=== PATIENT | female | born 2000 | race Caucasian/White ===

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

== ENCOUNTER → 2020-05-10 | Outpatient (CLI) | payer MEDICAID, SELFPAY | END | disposition home or self-care (01) | PROVIDERS: PCP Pediatrics; Referring Provider Physician Assistant Medical; Visit Provider Physician Assistant Medical | DX: T30.4 Corrosion of unspecified body region, unspecified degree (principal) | CPT/HCPCS: 87070; 87205 ==

== ENCOUNTER 2020-06-01 08:39 | Emergency (ER) | payer MEDICAID, SELFPAY ==
[2020-06-01 08:40] VITALS: BP 152/99; PULSE 101; RESP 17; TEMP 36.2; O2SAT 99; BMI 42.5
[2020-06-01 09:15] VITALS: PULSE 121; RESP 20
[2020-06-01] MEDS: Ipratropium/Albuterol Sulfate 3 ML AMPUL.NEB INHALATION (09:15)
--- NOTE | 2020-06-01 09:16 | ED.DCSUM_ITS ---
History of Present Illness Informant: Patient Onset: Days - 3 days Activity at onset: Exertion, Light Activity Timing: Continuous Quality: Dyspnea on exertion, Wheezing Current Severity: Moderate Maximum Severity: Severe Worsened by: Coughing, Exertion Relieved by: Nothing Associated Symptoms: Cough. Negative for: Bloody Sputum, Chills, Clear sputum, Ear pain, Fever, Green sputum, Post-nasal drainage, Rhinorrhea, Sore throat, Sweats, White sputum, Yellow sputum Chest Pain: None Narrative: 19-year-old female history of asthma presents to emergency department with shortness of breath and wheezing with exertion. Nonproductive cough. No fevers or chills. No chest pain. No hemoptysis. No vomiting or diarrhea. No sore throat or congestion. No headache or neck pain. She is not lightheaded or dizzy. No sick contacts. No contacts with coronavirus. Went to the urgent care 2 days ago started on prednisone does not feel she has an improvement. No recent travel or surgery history of DVT or PE use of oral control pills. PE Risk Factors: Negative for: Cancer, OCP + Smoking + > 35, Prior DVT or PE, Recent immobilization, Recent surgery, Recent travel Prior similar symptoms: Yes Recent Illness/Hospitalization: No <Gustabo Fulton - Last Filed: 06/01/20 09:58> <Suhail Kamara - Last Filed: 06/01/20 13:51> Chief Complaint: Asthma Past Medical History Prior records reviewed: Yes Past Medical History: - - Asthma Surgical History: - - Fasciotomy/debridement left upper extremity Smoking Status: Never smoker - Family History Maternal Family History: Reports: - - No family history of hypertension, diabetes or CAD. Paternal Family History: Reports: No pertinent history <Gustabo Fulton - Last Filed: 06/01/20 09:58> <Suhail Kamara - Last Filed: 06/01/20 13:51> - Allergies and Home Meds Allergies/Adverse Reactions: Allergies azithromycin [From Zithromax] Allergy (Verified 06/01/20 08:42) Rash sulfamethoxazole [From Bactrim] Allergy (Verified 06/01/20 08:42) Rash trimethoprim [From Bactrim] Allergy (Verified 06/01/20 08:42) Rash Primary Care Physician: Yola Moses MD [Primary Care Provider] - Review of Systems All systems negative except as indicated General: Denies: Chills, Fever, Sweats Eyes: Denies: Visual changes - bilaterally, Diplopia ENT: Denies: Rhinorrhea, Sore throat Cardiovascular: Denies: Chest pain, Palpitations Respiratory: Reports: Dyspnea, Cough, Dyspnea on exertion. Denies: Sputum, Orthopnea, Paroxysmal nocturnal dyspnea Gastrointestinal: Denies: Abdominal pain, Nausea, Vomiting, Diarrhea, Melena, Hematochezia Genitourinary: Denies: Dysuria, Hematuria, Frequency Musculoskeletal: Denies: Back pain, Swelling, Extremity Pain Skin: Denies: Rash, Wounds Neurological: Denies: Headache, Weakness, Numbness <Gustabo Fulton - Last Filed: 06/01/20 09:58> Physical Exam Vital Signs/Narrative: Vital Signs Temp Pulse Resp BP Pulse Ox 06/01/20 08:40 97.1 F L 101 H 17 152/99 H 99 Inital Vital Signs reviewed: Yes General: Well nourished, Well developed, No Acute Distress Head: Normocephalic, Atraumatic Eyes: Perrl, EOMI ENT: Moist mucous membranes, No rhinorrhea Neck: Supple, Nontender Cardiovascular: Regular rate, Regular rhythm, No murmurs Respiratory: No distress, Chest nontender, Wheezing. Negative for: Rales, Rhon chi, Decreased Air Movement, Retractions Abdomen: Soft, Nontender, Nondistended, Normal bowel sounds Back: Nontender, Normal Inspection Extremities: Nontender, No edema. Negative for: Tenderness, Edema, Calf Tenderness Skin: Normal color, No rash Neurological: Alert, Oriented x3, Cranial nerves II-XII grossly intact, Normal Strength, Normal Sensation Psychological: Normal affect, Normal Mood <Gustabo Fulton - Last Filed: 06/01/20 09:58> Vital Signs/Narrative: Vital Signs Pulse Resp Pulse Ox 06/01/20 10:07 96 18 99 <Suhail Kamara - Last Filed: 06/01/20 13:51> Diagnostic/Tx/Re-eval Chest X-Ray - ED: 2 View, Read by ED Physician, Read by Radiologist, No Acute Disease Treatment - Dyspnea: Albuterol Repeat Evaluation: Improved With Ambulation: Asymptomatic - Medical Decision Making Patient presents with concern for a flare of her asthma. Her vital signs are stable. Her pulse ox is normal. She does have expiratory wheeze. She was given aerosols. She had already taken prednisone this morning that she had been prescribed 2 days ago by the urgent care. Her chest x-ray showed no acute abnormality. Patient states that she does feel improved after aerosols. She will continue her prednisone. She will continue her aerosols at home and follow-up with her doctor on Wednesday. She will be discharged. She did request a test for Covid, this will be sent out and she will quarantine until results return but at this time she is stable for discharge <Gustabo Fulton - Last Filed: 06/01/20 09:58> - Medical Decision Making Attending note: I saw the patient independently. Patient has a history of asthma. She presents with a flare. She reports shortness of breath and cough. She is taking prednisone. No current antibiotics. Vital signs reviewed. Patient alert and oriented. No acute distress. Mild expiratory wheeze bilaterally. Otherwise exam unremarkable. Asthma exacerbation Patient was treated here and felt improved. Chest x-ray was unremarkable. COVID-19 test is pending. Patient will be discharged for outpatient follow-up. <Suhail Kamara - Last Filed: 06/01/20 13:51> ED Disposition <Gustabo Fulton - Last Filed: 06/01/20 09:58> <Suhail Kamara - Last Filed: 06/01/20 13:51> - Plan for ED Patient: Disposition: Home or Assisted Living Diagnosis: Asthma exacerbation, Asthma, ADHD (attention deficit hyperactivity disorder), GERD (gastroesophageal reflux disease) Instructions: ED Bronchitis Asthmatic Prescriptions: Doxycycline 100 mg PO BID #20 cap Transmission Status: Received by [facility] Referrals: Yola Moses MD [Primary Care Provider] -
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
[2020-06-01 10:07] VITALS: PULSE 96; RESP 18; O2SAT 99
== END 2020-06-01 10:08 | disposition home or self-care (01) ==
PROVIDERS: Emergency Provider Physician Assistant Medical; PCP Pediatrics
DX: J45.901 Unspecified asthma with (acute) exacerbation (principal); K21.9 Gastro-esophageal reflux disease without esophagitis; F90.9 Attention-deficit hyperactivity disorder, unspecified type
CPT/HCPCS: 71046; 87635; 94640; 99281; U0003

== ENCOUNTER 2020-09-19 20:41 | Emergency (ER) | payer MEDICAID, SELFPAY ==
[2020-09-19 20:43] VITALS: BP 128/85; PULSE 88; RESP 16; TEMP 36.6; O2SAT 99; BMI 44.2
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
[2020-09-19] MEDS: Ondansetron ODT 4 MG Tablet PO (21:59)
[2020-09-19 22:40] VITALS: RESP 16
[2020-09-19] MEDS: HYDROcodone Bitartrate/Apap 5/325 Tablet PO (22:40)
== END 2020-09-19 22:44 | disposition home or self-care (01) ==
PROVIDERS: Emergency Provider Student in an Organized Health Care Education/Training Program; PCP Family Medicine
DX: S06.0X0A Concussion without loss of consciousness, initial encounter (principal); S16.1XXA Strain of muscle, fascia and tendon at neck level, initial encounter; J45.909 Unspecified asthma, uncomplicated; K21.9 Gastro-esophageal reflux disease without esophagitis; V48.0XXA Car driver injured in noncollision transport accident in nontraffic accident, initial encounter; Y93.I9 Activity, other involving external motion; Y92.410 Unspecified street and highway as the place of occurrence of the external cause; Y99.8 Other external cause status
CPT/HCPCS: 70450; 72125; 99283

== ENCOUNTER 2020-09-21 20:46 | Emergency (ER) | payer MEDICAID, SELFPAY ==
[2020-09-21 20:47] VITALS: BP 146/84; PULSE 142; RESP 18; TEMP 36.3; O2SAT 98; BMI 46.3
--- NOTE | 2020-09-21 20:53 | ED.RN ---
RN CALLED FOR EKG, PULLED OLD EKGS FOR
[2020-09-21 20:55] VITALS: BP 138/85; PULSE 112; RESP 21; O2SAT 98
--- NOTE | 2020-09-21 21:09 | EKG12_ITS ---
Test Reason : CP Blood Pressure : / mmHG Vent. Rate : 116 BPM Atrial Rate : 116 BPM P-R Int : 152 ms QRS Dur : 096 ms QT Int : 334 ms P-R-T Axes : 040 015 029 degrees QTc Int : 464 ms Sinus tachycardia Nonspecific ST and T wave abnormality Abnormal ECG Confirmed by CHUCKIE FRANKLIN, ALISON ([id number]), telegraph editor MELISSA LAL ([id number]) on 09/23/2020 11:58:39 A M Referred By: IGNACIO Confirmed By:KRUNAL NOGUERA MD
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
[2020-09-21] MEDS: Orphenadrine 60 MG/2 ML Ampul IM (21:27)
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
[2020-09-21 22:40] LABS: Absolute Lymphocyte Count 2.58 X10^3/uL (0.83-4.51); Absolute Neutrophil Count 3.5 X10^3/uL (2.0-7.7); Basophil# 0.03 X10^3/uL; Basophil% 0.4 % (0-1); Eosinophil# 0.17 X10^3/uL; Eosinophils% 2.5 % (0-5); Hematocrit 41.9 % (37-47); Hemoglobin 13.5 g/dL (12.0-15.0); Lymphocyte # 2.58 X10^3/ul (4.0); Lymphocyte % 37.8 % (19-41); Mean Corp Hgb Conc 32.2 g/dL (32-36); Mean Corpuscular Hgb 26.4 pg (27.0-32.0); Monocyte# 0.58 X10^3/uL; Monocyte% 8.5 % (0-10); NRBC Flagged by Analyzer 0 % (0-5); Neutrophil # 3.45 X10^3/uL (2.7-7.7); Neutrophil % 50.7 % (47-70); Platelet Count 270 K/mm3 (150-450); RBC Distribution Width CV 13.4 % (11.6-14.6); Red Blood Count 5.11 M/mm3 (4.2-5.4); White Blood Count 6.8 K/mm3 (4.4-11.0)
[2020-09-21 22:52] VITALS: BP 107/54; PULSE 86; RESP 16; O2SAT 97
[2020-09-21 22:56] LABS: Anion Gap 2 (5-15); BUN 24 mg/dL (7-18); BUN/Creat Ratio 24.7 RATIO (10-20); Calcium,Total 8.5 mg/dL (8.5-10.1); Chloride 108 mmol/L (98-107); Creatinine, Serum 0.97 mg/dL (0.55-1.02); EST Glomerular Filtration Rate 77 mL/min (>60); Est Glom Filt Rate - Afr Amer 94 mL/min (>60); Estimated Creatinine Clearance 76.53 ml/min; Glucose 89 mg/dL (74-106); Sodium Level 139 mmol/L (136-145)
[2020-09-22] VITALS: BP 98/52; PULSE 87; RESP 19; O2SAT 96
[2020-09-22] MEDS: Morphine 4 MG/ML Syringe IV (00:28)
[2020-09-22] MEDS: Ondansetron 4 MG/2 ML Vial IV (00:28)
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
[2020-09-22 02:10] VITALS: BP 98/52; PULSE 81; RESP 16; O2SAT 96
== END 2020-09-22 02:10 | disposition short-term general hospital (02) ==
PROVIDERS: Emergency Provider Emergency Medicine; PCP Family Medicine
DX: T79.7XXA Traumatic subcutaneous emphysema, initial encounter (principal); J45.909 Unspecified asthma, uncomplicated; F41.9 Anxiety disorder, unspecified; F32.9 Major depressive disorder, single episode, unspecified; Z79.51 Long term (current) use of inhaled steroids; Z79.899 Other long term (current) drug therapy; V48.0XXA Car driver injured in noncollision transport accident in nontraffic accident, initial encounter; Y93.I9 Activity, other involving external motion; Y92.410 Unspecified street and highway as the place of occurrence of the external cause; Y99.8 Other external cause status
CPT/HCPCS: 70491; 71045; 71260; 80048; 85025; 93005; 96372; 96374; 96375; 99285; J7030; Q9967; A4216; J2405

== ENCOUNTER 2020-09-29 19:43 | Emergency (ER) | payer MEDICAID, SELFPAY ==
[2020-09-29 19:44] VITALS: BP 129/76; PULSE 123; RESP 22; TEMP 35.8; O2SAT 96; BMI 45.8
[2020-09-29 20:30] VITALS: BP 136/82; PULSE 116; RESP 24; O2SAT 95
[2020-09-29 20:31] VITALS: RESP 31; O2SAT 95
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
[2020-09-29 21:03] LABS: Absolute Lymphocyte Count 2.48 X10^3/uL (0.83-4.51); Absolute Neutrophil Count 7.2 X10^3/uL (2.0-7.7); Basophil# 0.07 X10^3/uL; Basophil% 0.6 % (0-1); Eosinophils% 2.7 % (0-5); Hemoglobin 13.9 g/dL (12.0-15.0); Lymphocyte # 2.48 X10^3/ul (4.0); Lymphocyte % 22.7 % (19-41); Mean Corp Hgb Conc 32.3 g/dL (32-36); Mean Corpuscular Hgb 26.3 pg (27.0-32.0); Mean Corpuscular Volume 81.3 fL (81-99); Mean Platelet Vol. 9.9 fl (6.2-12.0); Monocyte# 0.78 X10^3/uL; Monocyte% 7.1 % (0-10); NRBC Flagged by Analyzer 0 % (0-5); Neutrophil # 7.24 X10^3/uL (2.7-7.7); Neutrophil % 66.3 % (47-70); Platelet Count 306 K/mm3 (150-450); RBC Distribution Width CV 13.9 % (11.6-14.6); RBC Distribution Width SD 40.2 fl (35.1-43.9); Red Blood Count 5.29 M/mm3 (4.2-5.4); White Blood Count 10.9 K/mm3 (4.4-11.0)
[2020-09-29 21:16] LABS: Partial Thromboplast Time 25.7 Seconds (24.1-36.2)
[2020-09-29 21:22] LABS: Prothrombin Time (Protime)PT. 12.5 SECONDS (11.7-14.9)
[2020-09-29 21:24] VITALS: PULSE 107; RESP 27; O2SAT 99
[2020-09-29 21:26] LABS: AST(SGOT) 28 U/L (15-37); Alanine Aminotransfer ALT/SGPT 49 U/L (13-56); Alkaline Phosphatase 112 U/L (45-117); Anion Gap 6 (5-15); BUN 17 mg/dL (7-18); Calcium,Total 9.1 mg/dL (8.5-10.1); Chloride 104 mmol/L (98-107); EST Glomerular Filtration Rate 75 mL/min (>60); Est Glom Filt Rate - Afr Amer 91 mL/min (>60); Estimated Creatinine Clearance 74.23 ml/min; Glucose 88 mg/dL (74-106); Potassium 4.3 mmol/L (3.5-5.1); Sodium Level 137 mmol/L (136-145)
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
--- NOTE | 2020-09-29 22:27 | ED.DCSUM_ITS ---
- ER Visit Summary Date of Service: 09/29/20 Chief Complaint: Neck pain and shortness of breath History of Present Illness: The patient is a 20 F who presents with neck pain and shortness of breath that became worse today. Patient was seen here last week and transferred to the trauma service at [facility] for subcutaneous emphysema. Patient states that she was feeling somewhat better when she was discharged. Patient states her breathing is worse today. Patient denies any difficulty swallowing. Patient denies any difficulty talking. Patient denies any new trauma. Physical Examination: Vital signs are stable except for mild tachypnea of 22 and a tachycardia of 123. Patient is afebrile. Patient is in no acute distress. Oral mucosa is pink and moist. Neck is supple. Trachea is midline. There is tenderness over the anterior neck. There is minimal crepitance noted. Heart was regular rate and rhythm. Lungs are clear and equal bilaterally. Abdomen is soft. Bowel sounds are normal. There is no tenderness. Cranial nerves II through XII are intact. There are no focal motor or sensory deficits. Extremities are intact. There is no calf tenderness or edema. Test Results: Portable chest x-ray was obtained. There is 1 view. On my interpretation, there is subcutaneous emphysema noted over the upper chest. It is somewhat improved compared to previous exam. Soft tissue neck x-ray was obtained. There are 2 views. On my interpretation, there is subcutaneous emphysema of the anterior neck. Compared to the CT scan from 1 week ago, it appears to be improved. There is no subcutaneous emphysema over the posterior neck that there was previously. Radiologist also interpreted the x-rays and agrees. Emergency Department Course and Treatment: Patient states she is still felt like there is some pressure on her neck on reevaluation. Patient was given a dose of hydroxyzine. CT scan of the soft tissue neck was obtained. There is still subcutaneous emphysema in the neck. This is mostly anterior but there is still some more posteriorly. There is increased gas in the fascicles of the sternocleidomastoid muscles. The extent of the gas goes into the mediastinum around the margin of the left subclavian artery which is otherwise normal. The overall anterior volume of the gas is similar to previous study. This was interpreted by the radiologist. Patient states she feels like her throat is getting worse. Patient is maintaining good oxygen saturations on room air. Patient states she feels like she has difficulty swallowing however. Patient does not feel safe going home. Case was discussed with the transfer center at [facility]. Case was discussed with Dr. Colindres, trauma surgeon at [facility] [place]. He accepted transfer the patient. Patient will be transferred there. Disposition: Transfer to [facility] Impression: Subcutaneous emphysema This note was generated with [employer] dictation software. It may contain incorrect words, spelling, and punctuation that were not noted in review of the chart prior to signing ED Disposition - Plan for ED Patient: Disposition: [facility] Diagnosis: Subcutaneous emphysema Referrals: Juancarlos Soriano MD [Primary Care Provider] -
[2020-09-29] MEDS: hydrOXYzine 50 MG/ML Vial 25 MG IM (22:57)
[2020-09-29 23:21] VITALS: BP 108/81; PULSE 128; RESP 18; O2SAT 98
[2020-09-30 00:28] VITALS: PULSE 112; RESP 22; O2SAT 94
[2020-09-30 02:15] VITALS: BP 122/55; PULSE 112; RESP 18; TEMP 36.7; O2SAT 96
[2020-09-30 02:30] VITALS: BP 122/55; PULSE 112; RESP 18; TEMP 36.7; O2SAT 96
== END 2020-09-30 02:32 | disposition short-term general hospital (02) ==
PROVIDERS: Emergency Provider Emergency Medicine; PCP Family Medicine
DX: T79.7XXA Traumatic subcutaneous emphysema, initial encounter (principal); E66.9 Obesity, unspecified; K21.9 Gastro-esophageal reflux disease without esophagitis
CPT/HCPCS: 70360; 70490; 71045; 71046; 80053; 85025; 85610; 85730; 87426; 96372; 99285; A4216

== ENCOUNTER 2020-10-08 07:46 | Emergency (ER) | payer MEDICAID, SELFPAY ==
[2020-10-08 07:47] VITALS: BP 130/82; PULSE 123; RESP 24; TEMP 37.1; O2SAT 97; BMI 43.9
--- NOTE | 2020-10-08 07:55 | EKG12_ITS ---
Test Reason : CP Blood Pressure : / mmHG Vent. Rate : 112 BPM Atrial Rate : 112 BPM P-R Int : 144 ms QRS Dur : 094 ms QT Int : 330 ms P-R-T Axes : 033 -02 061 degrees QTc Int : 450 ms Sinus tachycardia Voltage criteria for left ventricular hypertrophy Nonspecific T wave abnormality Abnormal ECG When compared with ECG of 21-SEP-2020 20:57, Nonspecific T wave abnormality has replaced inverted T waves in Inferior leads Nonspecific T wave abnormality, improved in Anterior leads Nonspecific T wave abnormality, worse in Lateral leads Confirmed by CHUCKIE FRANKLIN, ALISON ([id number]), editor news MELISSA LAL ([id number]) on 10/21/2020 11:50:22 A M Referred By: KURT Confirmed By:KRUNAL NOGUERA MD
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
--- NOTE | 2020-10-08 08:02 | NURSING ---
called [facility], talked to ric in medical records. requested chart from her stay there. [phone]
[2020-10-08 08:22] LABS: Absolute Neutrophil Count 7.1 X10^3/uL (2.0-7.7); Basophil# 0.05 X10^3/uL; Basophil% 0.5 % (0-1); Eosinophil# 0.54 X10^3/uL; Eosinophils% 4.9 % (0-5); Hematocrit 40.3 % (37-47); Hemoglobin 13.3 g/dL (12.0-15.0); Lymphocyte % 22.6 % (19-41); Mean Corpuscular Hgb 26.7 pg (27.0-32.0); Mean Corpuscular Volume 80.8 fL (81-99); Mean Platelet Vol. 10.3 fl (6.2-12.0); Monocyte# 0.81 X10^3/uL; Monocyte% 7.3 % (0-10); NRBC Flagged by Analyzer 0 % (0-5); Neutrophil # 7.08 X10^3/uL (2.7-7.7); Neutrophil % 64.2 % (47-70); Platelet Count 234 K/mm3 (150-450); RBC Distribution Width CV 14.2 % (11.6-14.6); RBC Distribution Width SD 40.2 fl (35.1-43.9); Red Blood Count 4.99 M/mm3 (4.2-5.4)
--- NOTE | 2020-10-08 08:30 | RAD_ITS ---
STUDY: X-RAY CHEST REASON FOR EXAM: Female, 20 years old. Chest pain and shortness of breath, history of -- Pneumomediastinum and subcutaneous air TECHNIQUE: AP and lateral views of the chest. COMPARISON: Comparison is made with prior study dated 09/29/2020. FINDINGS: EKG electrodes are seen. Once again, there is evidence of subcutaneous emphysema overlying the lower cervical regions bilaterally as well as overlying the chest timmons more prominent on the left side. Increased linear markings in both lungs suggestive of mild degree of vascular congestion or inflammatory process. There is no demonstrated pleural abnormality. Normal size heart. Normal mediastinum and melissa. Normal visualized pulmonary arteries. Normal visualized aortic arch and descending thoracic aorta. Normal visualized thoracic spine. Normal visualized ribs, clavicles, and shoulders. There is no demonstrated abnormality of the visualized soft tissue structures of the upper abdomen. RAD/Chest PA and Lateral IMPRESSION: Subcutaneous emphysema overlying the lower cervical region as well as the chest wall more prominent on the left side. Increased linear markings in both lungs suggestive of either vascular congestion and/or possible inflammatory process. Electronically Signed: Hammad Aguirre MD at 8:59 EST , Service support ,
[2020-10-08 08:39] LABS: Anion Gap 6 (5-15); BUN 24 mg/dL (7-18); BUN/Creat Ratio 31.7 RATIO (10-20); Calcium,Total 8.2 mg/dL (8.5-10.1); Chloride 110 mmol/L (98-107); Creatinine, Serum 0.76 mg/dL (0.55-1.02); EST Glomerular Filtration Rate 103 mL/min (>60); Est Glom Filt Rate - Afr Amer 125 mL/min (>60); Estimated Creatinine Clearance 97.68 ml/min; Glucose 110 mg/dL (74-106); Sodium Level 139 mmol/L (136-145)
[2020-10-08 08:45] LABS: Lactic Acid 1.6 mmol/L (0.4-1.9)
[2020-10-08 08:46] VITALS: BP 120/79; PULSE 110; RESP 23; O2SAT 98
--- NOTE | 2020-10-08 08:55 | ED.RN ---
blood top hemolyzed again lab asked to come draw it. spoke with Cely
[2020-10-08 09:00] VITALS: BP 115/62; PULSE 108; RESP 26; O2SAT 98
[2020-10-08 09:01] LABS: Base Excess -2 mmol/L (-2 to +2); Blood Gas Specimen Type ART; PO2 98 mmHG (75-100); SITE R Radial; SO2 98 % (95-99); Total Carbon Dioxide 23 mmol/L; pCO2 33.5 mmHg (35-45); pH 7.43 (7.35-7.45)
--- NOTE | 2020-10-08 09:40 | ED.RN ---
Pt states that she doesnt feel right when she was told she was going home. Dr Avery aware
[2020-10-08] MEDS: LORazepam 2 MG/ML Syringe 0.5 MG IV (09:43)
--- NOTE | 2020-10-08 09:50 | ED.RN ---
PT WAS TEARFUL UPON D/C, AWARE AND ORDERED ATIVAN FOR PT ANXIETY. PT STATES SHE DOESN'T FEEL GOOD. AWARE NO NEW ORDERS, RN TO D/C PT. THIS RN USED ACTIVE LISTENING AND REINFORCED FOLLOWING THE ER D/C PLAN OF FOLLOWING UP WITH PCP AND TO RETURN IF THE SYMPTOMS GOT WORSE. PT D/C.
[2020-10-08 09:55] VITALS: BP 122/94; PULSE 114; RESP 27; O2SAT 98
== END 2020-10-08 09:56 | disposition home or self-care (01) ==
PROVIDERS: Emergency Provider Emergency Medicine; PCP Family Medicine
DX: J98.2 Interstitial emphysema (principal); R00.0 Tachycardia, unspecified; R06.00 Dyspnea, unspecified; J45.909 Unspecified asthma, uncomplicated; K21.9 Gastro-esophageal reflux disease without esophagitis; F32.9 Major depressive disorder, single episode, unspecified; Z79.899 Other long term (current) drug therapy
CPT/HCPCS: 36415; 36600; 71046; 80048; 82803; 83605; 85025; 85379; 93005; 96374; 99285; A4216

== ENCOUNTER 2020-12-24 19:43 | Emergency (ER) | payer MEDICAID, SELFPAY ==
[2020-12-24] VITALS (8 sets, daily range): BP systolic 122–131; BP diastolic 74–82; PULSE 115–135; RESP 16–24; TEMP 36.6–37.2; O2SAT 94–98; BMI 45.1
--- NOTE | 2020-12-24 20:12 | CT_ITS ---
HISTORY: rlq cellulitis TECHNIQUE: Helically acquired images were obtained of the abdomen and pelvis following the intravenous administration of 100 ML of Isovue 300 Iodinated contrast. 2D reformats. No oral contrast was administered. A radiation dose optimization technique was used for this scan. COMPARISON: Of the patient's 52 radiologic exams performed at this institution alone, 2 CT scans of the chest are from September 21, 2020, and February 24, 2019. Both of these studies image into the abdomen, the study from September 21, 2020, to below the adrenal glands. FINDINGS: # of images incl. paperwork: 472 LUNG BASES: Clear. CT abdomen: Gas is present within the subcutaneous fat within the anterior right abdominal wall, anterior to the right acetabulum and extending up into the right flank almost to the level of the inferior ribs. There is some additional induration of the subcutaneous fat anteriorly. Some edema is present on the left but without gas. Some nodular induration is present within the subcutaneous fat anteriorly both left and right separately from the gas. Bony alignment is normal. Disc height and vertebral body height are normal. Facets are well aligned. Transverse and spinous processes are normal. Femoral heads are well-seated within their respective acetabulum. SI joints are symmetric. No acute fractures are perceived. . The gallbladder remains. Liver, spleen, pancreas, and adrenal glands, are normal. The kidneys are normal. The aorta is normal. CT pelvis: No ascites is present. The appendix is normal. Series 278. The uterus and ovaries are not pathologically enlarged. Follicles are present on both ovaries. The bladder is decompressed. Bowel-gas pattern is normal. CT/Abdomen/Pelvis WITH Contrast IMPRESSION: Gas dissecting from the skin into the right anterior abdominal wall and right flank with some induration about that skin. In the setting of infection without trauma this is concerning for necrotizing fasciitis. Within the anterior abdominal wall away from this area gas there are multiple areas of nodular induration of the fat that may represent sequelae of subcutaneous injections from a substance such as insulin. No acute intra-abdominal process perceived. Individualized dose optimization techniques were used for this CT. at 2230 Reported and signed by: Mateus Marquis MD Electronically Signed: Mateus Marquis MD at 22:29 EDT Tel , Service support ,
[2020-12-24 20:49] LABS: Bacteria 0 SEEN /hpf (None Seen); Mucous, Urine 0 SEEN /hpf (<or=2+)
[2020-12-24 20:51] LABS: Color, Urine Yellow (Yellow); Glucose, Dipstick Normal (Normal); Ketone-Dipstick Negative (Negative); Leukocyte Esterase-Dipstick 100 /ul (Negative); Nitrite-Dipstick Negative (Negative); Occult Blood-Urine Negative /ul (Negative); Protein-Dipstick 15 mg/dl (Negative); Urine Bilirubin Dipstick Negative (Negative); Urine Clarity Clear (Clear); Urine Urobilinogen Normal (Normal)
[2020-12-24 20:58] LABS: Red Blood Cells-Urine 0-5 SEEN /hpf (0-5); Squamous Epithelial Cells - UA 0-5 SEEN /hpf (5-10); White Blood Cells 0-5 SEEN /hpf (0-5)
--- NOTE | 2020-12-24 21:10 | EX.ED.DYSGE1 ---
HPI History of Present Illness Chief Complaint: Cellulitis Narrative Narrative: 20-year-old female presents with concern for right lower quadrant abdominal redness. States been present over the past 2 to 3 days. States she was seen in urgent care where they adam a line around it and is extended past that line. She denies any fever, chills, nausea, vomiting, vaginal bleeding or discharge, diarrhea or constipation. Patient states that she feels like there is here in her skin around this and she has had this before in the past in her chest. [facility] Medical History Borderline personality disorder Conversion disorder HOLLY (generalized anxiety disorder) Major depressive disorder, recurrent, moderate Pseudoseizure Home Medications Hydroxyzine [Atarax] 37.5 mg PO BID 11/11/16 [History Last Taken 05/26/19] bupropion HCl 150 mg PO QHS 11/11/16 [History Last Taken 05/25/19] docusate sodium [DOK] 100 mg PO BID 11/11/16 [History Last Taken 05/26/19] escitalopram oxalate 20 mg PO QHS 11/11/16 [History Last Taken 05/25/19] magnesium oxide 400 mg PO BID 11/11/16 [History Last Taken 05/26/19] melatonin 10 mg PO QHS 11/11/16 [History Last Taken 05/25/19] montelukast 10 mg PO QHS 11/11/16 [History Last Taken 05/25/19] trazodone 50 mg PO QHS 11/11/16 [History Last Taken 05/25/19] ranitidine HCl 300 mg PO BID 05/26/19 [History Last Taken 05/26/19] riboflavin (vitamin B2) 400 mg PO DAILY 05/26/19 [History Last Taken 05/26/19] albuterol sulfate 1 puff INHALATION Q4H PRN PRN 07/20/19 [History Last Taken Unknown] buspirone 10 mg PO BID 07/20/19 [History Last Taken Unknown] dextroamphetamine-amphetamine 20 mg PO BID 07/20/19 [History Last Taken Unknown] fluticasone propion-salmeterol 2 ea IH BID 07/20/19 [History Last Taken Unknown] gabapentin 100 mg PO BID PRN PRN 07/20/19 [History Last Taken Unknown] gabapentin 300 mg PO DAILY 07/20/19 [History Last Taken Unknown] omeprazole 40 mg PO DAILY 07/20/19 [History Last Taken Unknown] ondansetron HCl 8 mg PO PRN PRN 07/20/19 [History Last Taken Unknown] promethazine 25 mg PO PRN PRN 07/20/19 [History Last Taken Unknown] Allergy/AdvReac Type Severity Reaction Status Date / Time azithromycin [From Zithromax] Allergy Rash Verified 12/24/20 19:44 sulfamethoxazole Allergy Rash Verified 12/24/20 19:44 [From Bactrim] trimethoprim [From Bactrim] Allergy Rash Verified 12/24/20 19:44 Social History Smoking Status: Never smoker ROS ROS ED Constitutional Constitutional ED: Denies chills, fever(s) or sweats Eyes Eyes: Denies blurry vision, change in vision or diplopia ENT ENT ED: Denies rhinorrhea or sore throat Cardiovascular Cardiovascular: Denies chest pain, orthopnea, palpitations or racing heartbeat Respiratory/Chest Respiratory/Chest: Denies cough, dyspnea, dyspnea on exertion, orthopnea or sputum Gastrointestinal Gastrointestinal: Denies abdominal pain, constipation, diarrhea, melena, nausea or vomiting Genitourinary Genitourinary ED: Denies dysuria, hematuria or urinary frequency Musculoskeletal Musculoskeletal: Denies arthralgias, myalgias or neck pain Integumentary Reports other Details: Skin redness on the abdomen Neurologic Neurologic: Denies headache(s), paresthesias or weakness Psychiatric Psychiatric: Denies anxiety or depression Hematologic/Lymphatic Hematologic/Lymphatic: Denies easy bleeding or easy bruising Allergic/Immunologic Allergic/Immunologic ED: Denies mouth swelling or tongue swelling EXAM Physical Exam Const Vital Signs: 12/24/20 19:44 12/24/20 20:41 12/24/20 20:42 Temperature 97.8 F 98.7 F Temperature Source Temporal Temporal Pulse Rate 135 H 120 H Respiratory Rate 18 24 H Blood Pressure 126/74 H Blood Pressure Mean 91 Pulse Ox 94 96 Oxygen Delivery Method Room Air Room Air 12/24/20 21:52 12/24/20 21:54 12/24/20 22:41 Temperature 99 F 99 F Temperature Source Temporal Temporal Pulse Rate 115 H Respiratory Rate 16 Blood Pressure 131/77 H Blood Pressure Mean 95 Pulse Ox 98 Oxygen Delivery Method Room Air 12/24/20 22:42 Temperature Temperature Source Pulse Rate 119 H Respiratory Rate Blood Pressure 129/82 H Blood Pressure Mean 97 Pulse Ox 97 Oxygen Delivery Method Room Air Positive well nourished and well developed General Appearance ED: well developed HEENT Reports TM's clear and moist mucous membranes normocephalic and atraumatic Tympanic Membrane ED: Yes TM's clear Eyes PERRL and EOMs intact bilaterally Neck no lymphadenopathy, supple and no JVD Chest Wall inspection of chest normal Resp normal respiratory effort and clear to auscultation bilaterally Cardio regular rate, S1 normal heart sound, S2 normal heart sound and no murmurs Peripheral Pulses: pulses 2+ throughout GI soft to palpation, non-tender and non-distended GI Narrative: 3 x 4 cm erythema to the right lower quadrant of the abdomen with subcutaneous crepitus. No tenderness. Back/Spine no CVA tenderness and no thoracic nor lumbar tenderness Extremity normal to inspection General Extremety ED: Negative for edema or tenderness General Extremity: Negative for edema Neuro oriented x3, CN's II-XII intact bilaterally and no sensory deficits noted Sensorium / Orientation: alert Motor Exam: strength 5/5 throughout Psych mental status grossly normal Skin Skin Narrative: Described abdominal erythema. MDM MDM MDM Narrative Medical decision making narrative: Patient appears well and nontoxic. Vital signs show tachycardia. Normotensive. Afebrile. Patient treated with fluid bolus, morphine, Zofran. Lab work within normal limits with a normal lactate. CT of the abdomen pelvis shows evidence of right abdominal wall gas dissecting up into the flank. Concern for necrotizing fasciitis. Patient was given Zosyn, vancomycin, clindamycin. Spoke with general surgeon on-call Dr. Allen, who advised patient needs to be transferred to tertiary facility given the extent of the likely debridement. Patient requesting transfer to [facility]. On reevaluation at 2300 patient's heart rate is improving however she is continuing to complain of pain. Was given Dilaudid and another dose of Zofran. Spoke with general surgeon on-call Dr. Ricci at [facility] who will accept the patient to the emergency department for likely operating room treatment. Patient agreeable with this plan and transferred in stable condition. Lab Data Attestation: I reviewed the patient's lab results. Labs: Laboratory Results - last 24 hr 12/24/20 12/24/20 12/24/20 20:43 20:43 21:12 WBC 8.1 RBC 4.50 Hgb 11.1 L Hct 35.8 L MCV 79.6 L MCH 24.7 L MCHC 31.0 L RDW Std Deviation 40.8 RDW Coeff of Anastacio 14.0 Plt Count 280 MPV 9.8 Immature Gran % (Auto) 0.200 Neut % (Auto) 58.2 Lymph % (Auto) 28.4 [place] % (Auto) 8.9 Eos % (Auto) 3.7 Baso % (Auto) 0.6 Absolute Neuts (auto) 4.7 Absolute Lymphs (auto) 2.31 Nucleated RBC % 0 PT INR APTT Sodium Potassium Chloride Carbon Dioxide Anion Gap BUN Creatinine Estim Creat Clear Calc Est GFR (MDRD) Af Amer Est GFR (MDRD) Non-Af BUN/Creatinine Ratio Glucose Lactic Acid Calcium Total Bilirubin AST ALT Alkaline Phosphatase Total Protein Albumin Globulin Albumin/Globulin Ratio Urine Color Yellow Urine Clarity Clear Urine pH 8.0 Ur Specific [place] 1.010 Urine Protein 15 H Urine Glucose (UA) Normal Urine Ketones Negative Urine Occult Blood Negative Urine Nitrite Negative Urine Bilirubin Negative Urine Urobilinogen Normal Ur Leukocyte Esterase 100 H Urine RBC 0-5 SEEN Urine WBC 0-5 SEEN Ur Squamous Epith Cells 0-5 SEEN Urine Bacteria 0 SEEN Urine Mucus 0 SEEN Urine Test Negative 12/24/20 12/24/20 12/24/20 21:12 21:12 21:12 WBC RBC Hgb Hct MCV MCH MCHC RDW Std Deviation RDW Coeff of Anastacio Plt Count MPV Immature Gran % (Auto) Neut % (Auto) Lymph % (Auto) [place] % (Auto) Eos % (Auto) Baso % (Auto) Absolute Neuts (auto) Absolute Lymphs (auto) Nucleated RBC % PT 13.1 INR 1.1 APTT 22.8 L Sodium 141 Potassium 3.9 Chloride 109 H Carbon Dioxide 27.0 Anion Gap 5 BUN 15 Creatinine 0.93 Estim Creat Clear Calc 79.82 Est GFR (MDRD) Af Amer 99 Est GFR (MDRD) Non-Af 82 BUN/Creatinine Ratio 16.2 Glucose 100 Lactic Acid 1.3 Calcium 8.8 Total Bilirubin 0.20 AST 22 ALT 38 Alkaline Phosphatase 91 Total Protein 6.7 Albumin 3.4 Globulin 3.3 Albumin/Globulin Ratio 1.0 Urine Color Urine Clarity Urine pH Ur Specific [place] Urine Protein Urine Glucose (UA) Urine Ketones Urine Occult Blood Urine Nitrite Urine Bilirubin Urine Urobilinogen Ur Leukocyte Esterase Urine RBC Urine WBC Ur Squamous Epith Cells Urine Bacteria Urine Mucus Urine Test Radiography Diagnostic Testing: Radiology Impression Abdomen/Pelvis CT 12/24/20 20:12 IMPRESSION: Gas dissecting from the skin into the right anterior abdominal wall and right flank with some induration about that skin. In the setting of infection without trauma this is concerning for necrotizing fasciitis. Within the anterior abdominal wall away from this area gas there are multiple areas of nodular induration of the fat that may represent sequelae of subcutaneous injections from a substance such as insulin. No acute intra-abdominal process perceived. Individualized dose optimization techniques were used for this CT. at 2230 Reported and signed by: Mateus Marquis MD Electronically Signed: Mateus Marquis MD at 22:29 EDT Tel , Service support , Critical Care Time Critical care time (excluding procedures): 75-104 minutes (85), Discussing w/Consultants, Arranging Admission or Transfer and Performing Direct Patient Care at Bedside Discharge Plan Triage Chief Complaint: Cellulitis ED Provider: Dre Burleson Dx/Rx/DC Orders Clinical Impression: Necrotizing fasciitis, Tachycardia Prescriptions: No Action bupropion HCl 150 MG Tablet.Sa 150 mg PO QHS RF: 0 trazodone 50 MG tablet 50 mg PO QHS RF: 0 magnesium oxide 400 MG tablet 400 mg PO BID RF: 0 docusate sodium [DOK] 100 MG capsule 100 mg PO BID RF: 0 montelukast 10 MG tablet 10 mg PO QHS RF: 0 escitalopram oxalate 20 MG tablet 20 mg PO QHS RF: 0 melatonin 10 MG tablet 10 mg PO QHS RF: 0 Hydroxyzine [Atarax] 25 MG tablet 37.5 mg PO BID RF: 0 ranitidine HCl 150 MG tablet 300 mg PO BID RF: 0 riboflavin (vitamin B2) 400 MG tablet 400 mg PO DAILY RF: 0 buspirone 5 MG tablet 10 mg PO BID RF: 0 fluticasone propion-salmeterol 1 EACH blister with device 2 ea IH BID RF: 0 ondansetron HCl 8 MG tablet 8 mg PO PRN PRN (Reason: Nausea) RF: 0 dextroamphetamine-amphetamine 20 MG tablet 20 mg PO BID RF: 0 promethazine 25 MG tablet 25 mg PO PRN PRN (Reason: Vomiting) RF: 0 gabapentin 300 MG capsule 300 mg PO DAILY RF: 0 omeprazole 20 MG capsule 40 mg PO DAILY RF: 0 gabapentin 100 MG capsule 100 mg PO BID PRN PRN (Reason: Pain Score 1-3/10) RF: 0 albuterol sulfate 1 PUFF inhaler 1 puff inhalation Q4H PRN PRN (Reason: Asthma) RF: 0 Primary Care Provider: Juancarlos Soriano Referrals: Juancarlos Soriano MD [Primary Care Provider] - Disposition Disposition: Acute Care Hospital Discharge Location: [facility]
[2020-12-24 21:21] LABS: Absolute Lymphocyte Count 2.31 X10^3/uL (0.83-4.51); Absolute Neutrophil Count 4.7 X10^3/uL (2.0-7.7); Basophil# 0.05 X10^3/uL; Basophil% 0.6 % (0-1); Eosinophils% 3.7 % (0-5); Hematocrit 35.8 % (37-47); Hemoglobin 11.1 g/dL (12.0-15.0); Lymphocyte # 2.31 X10^3/ul (0.83-4.51); Lymphocyte % 28.4 % (19-41); Mean Corpuscular Hgb 24.7 pg (27.0-32.0); Mean Corpuscular Volume 79.6 fL (81-99); Mean Platelet Vol. 9.8 fl (6.2-12.0); Monocyte# 0.72 X10^3/uL; Monocyte% 8.9 % (0-10); NRBC Flagged by Analyzer 0 % (0-5); Neutrophil # 4.73 X10^3/uL (2.7-7.7); Neutrophil % 58.2 % (47-70); Platelet Count 280 K/mm3 (150-450); RBC Distribution Width SD 40.8 fl (35.1-43.9); White Blood Count 8.1 K/mm3 (4.4-11.0)
[2020-12-24 21:27] LABS: International Normalized Ratio 1.1; Partial Thromboplast Time 22.8 Seconds (24.1-36.2); Prothrombin Time (Protime)PT. 13.1 SECONDS (11.7-14.9)
[2020-12-24] MEDS: 0.9% Normal Saline 1,000 ML 999 ML IV (21:33)
[2020-12-24 21:39] LABS: AST(SGOT) 22 U/L (15-37); Alanine Aminotransfer ALT/SGPT 38 U/L (13-56); Albumin, Serum 3.4 g/dL (3.2-5.0); Alkaline Phosphatase 91 U/L (45-117); Anion Gap 5 (5-15); BUN 15 mg/dL (7-18); BUN/Creat Ratio 16.2 RATIO (10-20); Calcium,Total 8.8 mg/dL (8.5-10.1); Chloride 109 mmol/L (98-107); Creatinine, Serum 0.93 mg/dL (0.55-1.02); EST Glomerular Filtration Rate 82 mL/min (>60); Est Glom Filt Rate - Afr Amer 99 mL/min (>60); Estimated Creatinine Clearance 79.82 ml/min; Globulin 3.3 g/dL (2.2-4.2); Glucose 100 mg/dL (74-106); Potassium 3.9 mmol/L (3.5-5.1); Protein, Total 6.7 g/dL (6.4-8.2); Sodium Level 141 mmol/L (136-145)
[2020-12-24 21:48] LABS: Lactic Acid 1.3 mmol/L (0.4-1.9)
[2020-12-24] MEDS: Ondansetron 4 MG/2 ML Vial IV ×2 (21:51→23:15)
[2020-12-24] MEDS: Morphine 4 MG/ML Syringe IV (21:51)
[2020-12-24 22:02] LABS: Internal QC Validated? YES +Cl - CLEAR BKGD; Pregnancy, Urine Negative Negative
[2020-12-24] MEDS: HYDROmorphone 0.5 MG/0.5 ML SYRINGE IV (23:15)
--- NOTE | 2020-12-24 23:54 | ED.RN ---
report given to RAUDEL Rivera
== END 2020-12-25 01:01 | disposition short-term general hospital (02) ==
PROVIDERS: Emergency Provider Emergency Medicine; PCP Family Medicine
DX: M72.6 Necrotizing fasciitis (principal); R00.0 Tachycardia, unspecified; F41.1 Generalized anxiety disorder; F60.3 Borderline personality disorder; F33.9 Major depressive disorder, recurrent, unspecified; F44.9 Dissociative and conversion disorder, unspecified; Z79.899 Other long term (current) drug therapy
CPT/HCPCS: 74177; 80053; 81001; 81025; 83605; 85025; 85610; 85730; 87040; 87086; 87088; 87186; 96361; 96365; 96367; 96375; 96376; 99285; J7040; Q9967; J2405

== ENCOUNTER 2021-01-06 20:20 | Emergency (ER) | payer MEDICAID, SELFPAY ==
[2020-12-24 19:44] VITALS: BMI 45.1
[2021-01-06 20:21] VITALS: BP 114/96; PULSE 124; RESP 16; TEMP 36.1; O2SAT 97; BMI 44.2
--- NOTE | 2021-01-06 20:33 | CT_ITS ---
INDICATION: necrotizing fasciitis EXAMINATION: CT Abdomen And Pelvis W/ Contrast Injection TECHNIQUE: Helically acquired images were obtained of the abdomen and pelvis after IV contrast. A radiation dose optimization technique was used for this scan. IV Contrast dosage and agent: IV 100mL [id number] Oral contrast: None. COMPARISON: 12/24/2020. FINDINGS: Visualized lung bases: Unremarkable Liver: Unremarkable Gallbladder: Unremarkable Spleen: Unremarkable Pancreas: Unremarkable Adrenal Glands: Unremarkable Kidneys: Unremarkable Vasculature: Unremarkable GI Tract: Unremarkable Lymphadenopathy: None Peritoneum: No ascites. Bladder: Unremarkable Reproductive organs: Unremarkable Bones/Soft tissues: Interval worsening of gas dissecting through the subcutaneous tissue of the right anterior abdomen and flank as well as increased subcutaneous fat stranding. The air and stranding now reaches but does not penetrate the right rectus abdominis and external oblique muscles. CT/Abdomen/Pelvis W IV Cont ONLY IMPRESSION: Interval worsening of necrotizing fasciitis of the right anterior abdominal wall and right flank with increased gas formation and fat stranding which now reaches but does not penetrate the right rectus abdominis and external oblique muscles. No other new findings. Electronically Signed: Alejandro Duke MD at 22:26 EDT Tel , Service support ,
[2021-01-06 20:35] VITALS: BP 116/80; PULSE 124; RESP 18; TEMP 37.2; O2SAT 96
--- NOTE | 2021-01-06 20:36 | EDS_ITS ---
HPI History of Present Illness Chief Complaint: Wound Check Narrative Narrative: This patient is a 20-year-old female who presents with right lower abdominal pain and infection. She has a history of ADHD obesity and multiple occurrences of necrotizing fasciitis. She has had debridement on multiple occasions including of the left arm as well as the leg as well as the abdominal wall. She was recently seen in our emergency department diagnosed with necrotizing fasciitis of the abdominal wall transferred to [facility] and underwent debridement. She has a wound VAC. She has completed antibiotics. Her home nurse noted increased redness crepitus so she was sent in for eval uation. She does complain of increasing pain. No fevers. No vomiting. [facility] Medical History Borderline personality disorder Conversion disorder HOLLY (generalized anxiety disorder) Major depressive disorder, recurrent, moderate Pseudoseizure Home Medications Hydroxyzine [Atarax] 37.5 mg PO BID 11/11/16 [History Last Taken 05/26/19] bupropion HCl 150 mg PO QHS 11/11/16 [History Last Taken 05/25/19] docusate sodium [DOK] 100 mg PO BID 11/11/16 [History Last Taken 05/26/19] escitalopram oxalate 20 mg PO QHS 11/11/16 [History Last Taken 05/25/19] magnesium oxide 400 mg PO BID 11/11/16 [History Last Taken 05/26/19] melatonin 10 mg PO QHS 11/11/16 [History Last Taken 05/25/19] montelukast 10 mg PO QHS 11/11/16 [History Last Taken 05/25/19] trazodone 50 mg PO QHS 11/11/16 [History Last Taken 05/25/19] ranitidine HCl 300 mg PO BID 05/26/19 [History Last Taken 05/26/19] riboflavin (vitamin B2) 400 mg PO DAILY 05/26/19 [History Last Taken 05/26/19] albuterol sulfate 1 puff INHALATION Q4H PRN PRN 07/20/19 [History Last Taken Unknown] buspirone 10 mg PO BID 07/20/19 [History Last Taken Unknown] dextroamphetamine-amphetamine 20 mg PO BID 07/20/19 [History Last Taken Unknown] fluticasone propion-salmeterol 2 ea IH BID 07/20/19 [History Last Taken Unknown] gabapentin 100 mg PO BID PRN PRN 07/20/19 [History Last Taken Unknown] gabapentin 300 mg PO DAILY 07/20/19 [History Last Taken Unknown] omeprazole 40 mg PO DAILY 07/20/19 [History Last Taken Unknown] ondansetron HCl 8 mg PO PRN PRN 07/20/19 [History Last Taken Unknown] promethazine 25 mg PO PRN PRN 07/20/19 [History Last Taken Unknown] Allergy/AdvReac Type Severity Reaction Status Date / Time azithromycin [From Zithromax] Allergy Rash Verified 01/06/21 20:23 sulfamethoxazole Allergy Rash Verified 01/06/21 20:23 [From Bactrim] trimethoprim [From Bactrim] Allergy Rash Verified 01/06/21 20:23 Social History Smoking Status: Never smoker ROS ROS ED Constitutional Constitutional ED: Denies fever(s) Cardiovascular Cardiovascular: Denies chest pain Respiratory/Chest Respiratory/Chest: Denies dyspnea Gastrointestinal Gastrointestinal: Reports abdominal pain; Denies vomiting Integumentary Reports rash Neurologic Neurologic: Denies headache(s) Psychiatric Psychiatric: Reports anxiety and depression EXAM Physical Exam Const Vital Signs: 01/06/21 20:21 01/06/21 20:35 01/06/21 21:23 Temperature 97 F L 99 F 98.7 F Temperature Source Temporal Oral Oral Pulse Rate 124 H 124 H 110 H Respiratory Rate 16 18 18 Blood Pressure 114/96 H 116/80 100/52 L Blood Pressure Mean 102 92 68 Pulse Ox 97 96 96 Oxygen Delivery Method Room Air Room Air Room Air 01/06/21 22:23 Temperature 98 F Temperature Source Oral Pulse Rate 113 H Respiratory Rate 18 Blood Pressure 97/58 L Blood Pressure Mean 71 Pulse Ox 96 Oxygen Delivery Method Room Air Positive obese Nutritional Appearance: obese HEENT Reports moist mucous membranes Eyes EOMs intact bilaterally Neck supple Chest Wall inspection of chest normal Resp normal respiratory effort Cardio regular rhythm Rate: tachycardic GI GI Narrative: Abdomen is soft but she does have erythema of the right lower abdomen, wound VAC is in place, there is crepitus Extremity Extremity Narrative: Surgical scar of left upper extremity Neuro Sensorium / Orientation: alert MDM MDM MDM Narrative Medical decision making narrative: Patient was treated with IV fluids morphine Zofran. She was given IV Zosyn and vancomycin and clindamycin. Her labs are unremarkable, white blood cell count normal at 10.8 and lactic acid is negative. However CT does show interval worsening of right anterior abdominal wall and right flank with increased gas formation and fat stranding. I spoke to the transfer line and patient was accepted by surgeon, Dr. Montilla. Patient will be transferred ED to ED. Lab Data Labs: Laboratory Results - last 24 hr 01/06/21 01/06/21 01/06/21 20:59 20:59 20:59 WBC 10.8 RBC 4.85 Hgb 12.0 Hct 38.2 MCV 78.8 L MCH 24.7 L MCHC 31.4 L RDW Std Deviation 40.5 RDW Coeff of Anastacio 14.4 Plt Count Not Reportable MPV 10.7 Immature Gran % (Auto) 0.700 Neut % (Auto) 60.1 Lymph % (Auto) 23.0 [place] % (Auto) 11.1 H Eos % (Auto) 4.3 Baso % (Auto) 0.8 Absolute Neuts (auto) 6.5 Absolute Lymphs (auto) 2.47 Nucleated RBC % 0 Differential Comment SCANNED Platelet Estimate ADEQUATE Sodium 138 Potassium 3.8 Chloride 107 Carbon Dioxide 22.0 Anion Gap 9 BUN 21 H Creatinine 0.92 Estim Creat Clear Calc 80.69 Est GFR (MDRD) Af Amer 99 Est GFR (MDRD) Non-Af 82 BUN/Creatinine Ratio 22.8 H Glucose 104 Lactic Acid 1.0 Calcium 9.0 Total Bilirubin 0.50 AST 27 ALT 28 Alkaline Phosphatase 79 Total Protein 8.1 Albumin 3.9 Globulin 4.2 Albumin/Globulin Ratio 0.9 Radiography Diagnostic Testing: Radiology Impression Abdomen/Pelvis CT 01/06/21 20:33 IMPRESSION: Interval worsening of necrotizing fasciitis of the right anterior abdominal wall and right flank with increased gas formation and fat stranding which now reaches but does not penetrate the right rectus abdominis and external oblique muscles. No other new findings. Electronically Signed: Alejandro Duke MD at 22:26 EDT Tel , Service support , Discharge Plan Triage Chief Complaint: Wound Check ED Provider: Curtis Bullock Dx/Rx/DC Orders Clinical Impression: Necrotizing fasciitis Prescriptions: No Action bupropion HCl 150 MG tablet sustained-release 12 hr 150 mg PO QHS RF: 0 trazodone 50 MG tablet 50 mg PO QHS RF: 0 magnesium oxide 400 MG tablet 400 mg PO BID RF: 0 docusate sodium [DOK] 100 MG capsule 100 mg PO BID RF: 0 montelukast 10 MG tablet 10 mg PO QHS RF: 0 escitalopram oxalate 20 MG tablet 20 mg PO QHS RF: 0 melatonin 10 MG tablet 10 mg PO QHS RF: 0 Hydroxyzine [Atarax] 25 MG tablet 37.5 mg PO BID RF: 0 ranitidine HCl 150 MG tablet 300 mg PO BID RF: 0 riboflavin (vitamin B2) 400 MG tablet 400 mg PO DAILY RF: 0 buspirone 5 MG tablet 10 mg PO BID RF: 0 fluticasone propion-salmeterol 1 EACH blister with device 2 ea IH BID RF: 0 ondansetron HCl 8 MG tablet 8 mg PO PRN PRN (Reason: Nausea) RF: 0 dextroamphetamine-amphetamine 20 MG tablet 20 mg PO BID RF: 0 promethazine 25 MG tablet 25 mg PO PRN PRN (Reason: Vomiting) RF: 0 gabapentin 300 MG capsule 300 mg PO DAILY RF: 0 omeprazole 20 MG capsule 40 mg PO DAILY RF: 0 gabapentin 100 MG capsule 100 mg PO BID PRN PRN (Reason: Pain Score 1-3/10) RF: 0 albuterol sulfate 1 PUFF inhaler 1 puff inhalation Q4H PRN PRN (Reason: Asthma) RF: 0 Primary Care Provider: Juancarlos Soriano Referrals: Juancarlos Soriano MD [Primary Care Provider] - Disposition Disposition: Acute Care Hospital Discharge Location: [facility]
[2021-01-06 21:15] LABS: Absolute Lymphocyte Count 2.47 X10^3/uL (0.83-4.51); Absolute Neutrophil Count 6.5 X10^3/uL (2.0-7.7); Basophil# 0.09 X10^3/uL; Basophil% 0.8 % (0-1); Eosinophil# 0.46 X10^3/uL; Eosinophils% 4.3 % (0-5); Hematocrit 38.2 % (37-47); Lymphocyte # 2.47 X10^3/ul (0.83-4.51); Mean Corp Hgb Conc 31.4 g/dL (32-36); Mean Corpuscular Hgb 24.7 pg (27.0-32.0); Mean Corpuscular Volume 78.8 fL (81-99); Mean Platelet Vol. 10.7 fl (6.2-12.0); Monocyte# 1.19 X10^3/uL; Monocyte% 11.1 % (0-10); NRBC Flagged by Analyzer 0 % (0-5); Neutrophil # 6.48 X10^3/uL (2.7-7.7); Neutrophil % 60.1 % (47-70); POSITIVE COUNT YES; RBC Distribution Width CV 14.4 % (11.6-14.6); RBC Distribution Width SD 40.5 fl (35.1-43.9); Red Blood Count 4.85 M/mm3 (4.2-5.4); White Blood Count 10.8 K/mm3 (4.4-11.0)
[2021-01-06 21:17] LABS: Differential Indicated SCAN CRITERIA MET
[2021-01-06 21:23] VITALS: BP 100/52; PULSE 110; RESP 18; TEMP 37.1; O2SAT 96
[2021-01-06 21:37] LABS: ALB/GLOB Ratio 0.9 RATIO (0.9-2.4); AST(SGOT) 27 U/L (15-37); Alanine Aminotransfer ALT/SGPT 28 U/L (13-56); Albumin, Serum 3.9 g/dL (3.2-5.0); Alkaline Phosphatase 79 U/L (45-117); Anion Gap 9 (5-15); BUN 21 mg/dL (7-18); BUN/Creat Ratio 22.8 RATIO (10-20); Chloride 107 mmol/L (98-107); Creatinine, Serum 0.92 mg/dL (0.55-1.02); Differential Comment SCANNED; EST Glomerular Filtration Rate 82 mL/min (>60); Est Glom Filt Rate - Afr Amer 99 mL/min (>60); Estimated Creatinine Clearance 80.69 ml/min; Globulin 4.2 g/dL (2.2-4.2); Glucose 104 mg/dL (74-106); Platelet Estimate ADEQUATE (ADEQ); Potassium 3.8 mmol/L (3.5-5.1); Protein, Total 8.1 g/dL (6.4-8.2); Sodium Level 138 mmol/L (136-145)
[2021-01-06] MEDS: Ondansetron 4 MG/2 ML Vial IV (21:39)
[2021-01-06] MEDS: Morphine 4 MG/ML Syringe IV ×2 (21:39→22:53)
[2021-01-06] MEDS: 0.9% Normal Saline 1,000 ML 1000 ML IV (21:39)
[2021-01-06 22:23] VITALS: BP 97/58; PULSE 113; RESP 18; TEMP 36.6; O2SAT 96
[2021-01-06 23:00] VITALS: BP 102/68; PULSE 114; RESP 18; TEMP 37.2; O2SAT 96
[2021-01-06 23:48] VITALS: BP 102/68; PULSE 111; RESP 12; O2SAT 98
== END 2021-01-06 23:49 | disposition short-term general hospital (02) ==
PROVIDERS: Emergency Provider Emergency Medicine; PCP Family Medicine
DX: M72.6 Necrotizing fasciitis (principal); E66.9 Obesity, unspecified; F60.3 Borderline personality disorder; F33.9 Major depressive disorder, recurrent, unspecified; F41.1 Generalized anxiety disorder; Z79.2 Long term (current) use of antibiotics; Z79.899 Other long term (current) drug therapy
CPT/HCPCS: 74177; 80053; 83605; 85025; 87040; 96365; 96367; 96375; 96376; 99285; J7030; J7040; Q9967; A4216; J2405

== ENCOUNTER 2021-01-21 15:29 | Emergency (ER) | payer MEDICAID, SELFPAY ==
[2021-01-21 15:30] VITALS: BP 114/71; PULSE 139; RESP 16; TEMP 36.7; O2SAT 97; BMI 44.9
--- NOTE | 2021-01-21 16:08 | EKG12_ITS ---
Test Reason : Blood Pressure : / mmHG Vent. Rate : 125 BPM Atrial Rate : 125 BPM P-R Int : 134 ms QRS Dur : 086 ms QT Int : 316 ms P-R-T Axes : 037 014 035 degrees QTc Int : 456 ms Sinus tachycardia Minimal voltage criteria for LVH, may be normal variant Cannot rule out Anterior infarct , age undetermined Abnormal ECG Confirmed by EDDIE FRANKLIN, LEANDRO ([id number]), graphics editor MELISSA LAL ([id number]) on 01/23/2021 10:08:02 AM Referred By: ROBIN Confirmed By:LEANDRO MORGAN MD
--- NOTE | 2021-01-21 16:10 | EX.ED.DYSGE1 ---
HPI History of Present Illness Chief Complaint: Cellulitis Narrative Narrative: 20-year-old female with history of necrotizing fasciitis of the abdomen in the past with previous debridements of this area presenting with worsening abdominal pain over the sites where she had these debridements. She states that she also has chills, nausea, abdominal pain. She is unsure if she is had a fever. She does not have a cough or shortness of breath. Patient states that she was previously transferred to in the past where she gets her care. She states that she was told she would need a PICC line and placement in order to give her IV antibiotics to prevent future surgeries however she states she did not want to have a PICC line and she was then discharged home on antibiotics. She is currently on Flagyl, doxycycline, Levaquin. These antibiotics were started on the . She does not recall the name of the surgeon who did the last debridement. [facility] Medical History (Updated 01/21/21 @ 17:18 by Ashtyn Lopez) Borderline personality disorder Conversion disorder HOLLY (generalized anxiety disorder) Major depressive disorder, recurrent, moderate Necrotizing fasciitis Pseudoseizure Home Medications bupropion HCl 150 mg PO QHS 11/11/16 [History Last Taken 05/25/19] docusate sodium [DOK] 100 mg PO BID 11/11/16 [History Last Taken 05/26/19] escitalopram oxalate 20 mg PO QHS 11/11/16 [History Last Taken 05/25/19] magnesium oxide 400 mg PO BID 11/11/16 [History Last Taken 05/26/19] melatonin 10 mg PO QHS 11/11/16 [History Last Taken 05/25/19] montelukast 10 mg PO QHS 11/11/16 [History Last Taken 05/25/19] trazodone 50 mg PO QHS 11/11/16 [History Last Taken 05/25/19] ranitidine HCl 300 mg PO BID 05/26/19 [History Last Taken 05/26/19] riboflavin (vitamin B2) 400 mg PO DAILY 05/26/19 [History Last Taken 05/26/19] albuterol sulfate 1 puff INHALATION Q4H PRN PRN 07/20/19 [History Last Taken Unknown] buspirone 15 mg PO TID 07/20/19 [History Last Taken Unknown] dextroamphetamine-amphetamine 20 mg PO DAILY 07/20/19 [History Last Taken Unknown] fluticasone propion-salmeterol 2 ea IH BID PRN 07/20/19 [History Last Taken Unknown] gabapentin 100 mg PO TID 07/20/19 [History Last Taken Unknown] omeprazole 40 mg PO DAILY 07/20/19 [History Last Taken Unknown] ondansetron HCl 8 mg PO PRN PRN 07/20/19 [History Last Taken Unknown] promethazine 25 mg PO PRN PRN 07/20/19 [History Last Taken Unknown] doxycycline hyclate 100 mg PO BID 01/21/21 [History Last Taken Unknown] hydroxyzine HCl [Atarax] 50 mg PO BID 01/21/21 [History Last Taken Unknown] levofloxacin 750 mg PO DAILY 01/21/21 [History Last Taken Unknown] lorazepam 0.5 mg PO DAILY PRN 01/21/21 [History Last Taken Unknown] metronidazole [Flagyl] 500 mg PO Q8H 01/21/21 [History Last Taken Unknown] Allergy/AdvReac Type Severity Reaction Status Date / Time azithromycin [From Zithromax] Allergy Rash Verified 01/21/21 15:30 sulfamethoxazole Allergy Rash Verified 01/21/21 15:30 [From Bactrim] trimethoprim [From Bactrim] Allergy Rash Verified 01/21/21 15:30 Social History Smoking Status: Never smoker ROS ROS ED Constitutional Constitutional ED: Reports chills and fever(s); Denies sweats Eyes Eyes: Denies blurry vision or change in vision ENT ENT ED: Denies ear pain, rhinorrhea or sore throat Cardiovascular Cardiovascular: Denies chest pain, palpitations or racing heartbeat Respiratory/Chest Respiratory/Chest: Denies cough, dyspnea or sputum Gastrointestinal Gastrointestinal: Reports abdominal pain and nausea; Denies constipation, diarrhea or vomiting Genitourinary Genitourinary ED: Denies dysuria, hematuria or urinary frequency Musculoskeletal Musculoskeletal: Reports myalgias; Denies arthralgias or neck pain Integumentary Reports other Details: Open surgical wounds on the abdomen ; Denies abscess, Abrasions or rash Neurologic Neurologic: Denies headache(s), paresthesias or weakness Psychiatric Psychiatric: Denies anxiety, depression, suicidal ideation or suicidal thoughts Endocrine Endocrinology: Denies polydipsia or polyuria EXAM Physical Exam Const Vital Signs: 01/21/21 15:30 01/21/21 16:15 01/21/21 17:19 Temperature 98.0 F 98 F Temperature Source Temporal Temporal Pulse Rate 139 H 119 H Respiratory Rate 16 22 H Blood Pressure 114/71 95/83 H Blood Pressure Mean 85 87 Pulse Ox 97 99 Oxygen Delivery Method Room Air Room Air Room Air 01/21/21 18:27 01/21/21 19:05 01/21/21 20:06 Temperature 97.9 F 97.9 F 98.8 F Temperature Source Temporal Temporal Oral Pulse Rate 113 H 124 H 109 H Respiratory Rate 24 H 20 H 28 H Blood Pressure 87/52 L 100/73 115/72 Blood Pressure Mean 63 82 86 Pulse Ox 96 97 96 Oxygen Delivery Method Room Air Room Air Room Air 01/21/21 21:15 Temperature 98.8 F Temperature Source Pulse Rate 104 H Respiratory Rate 18 Blood Pressure 105/78 Blood Pressure Mean 87 Pulse Ox 98 Oxygen Delivery Method Positive well nourished General Appearance ED: NAD; Negative for pallor HEENT Reports normocephalic, head/scalp atraumatic and moist mucous membranes Negative for trauma Eyes PERRL and EOMs intact bilaterally Neck no lymphadenopathy and supple Resp normal respiratory effort and clear to auscultation bilaterally Auscultation: Negative for rales, rhonchi or wheezes Cardio regular rhythm Rate: tachycardic GI non-distended GI Narrative: Tenderness to palpation over right lower abdomen. There are 2 open surgical sites that are approximately 3 cm in circular. The packing with the knees are clean and dry. There is surrounding erythema of the abdomen. There is no gross crepitance palpated. Auscultation: normoactive bowel sounds Palpation: soft Narrative: Deferred Extremity normal to inspection General Extremety ED: Negative for tenderness Neuro oriented x3 and CN's II-XII intact bilaterally Sensorium / Orientation: alert Motor Exam: strength 5/5 throughout Psych mental status grossly normal Attitude: No agitated Skin General Skin Exam: Negative for jaundice or pallor MDM MDM MDM Narrative Medical decision making narrative: Patient presenting with abdominal pain and concern for necrotizing fasciitis which she is had in the past. She is currently on 3 antibiotics and is still feeling worse. She states he has a chills and is unsure if he has had a fever. Patient was pancultured on arrival and lab work was drawn. Patient's initial heart rate was 140 and she was normotensive and afebrile. Patient was given IV fluids, morphine, Zofran and her blood pressure did drop into the 80s. Is unclear whether this is the morphine or not however she was given 3 L of IV fluids after this as well as vancomycin and Zosyn. Her heart rate improved to 104. Blood pressure is 105/78 patient's lab work shows white blood cell count 9.2, hemoglobin 11.3, hematocrit 36.2, platelets 297. PT/INR are normal. Renal function and electrolytes unremarkable. LFTs are normal. Urinalysis is negative. CT of the abdomen pelvis does identify lately appears to be necrotizing fasciitis on the right flank and lower abdomen. I discussed the case with Dr. Petit and she states that necrotizing fasciitis was too technically difficult to keep at [facility] and she did not feel comfortable keeping the patient. I did speak with Dr. Hargrove at who is on-call for her surgeon and he recommended sending her ED to ED so we could see her quicker. Patient did become tearful and stated that she did not want to go to because she had a bad experience last time. I did addictions counselor assistant her that our surgeon was uncomfortable keeping her here and she already has a surgeon at that is managing her problem. She was then amenable to go to . Patient is stable on transfer. Impression: 1. Necrotizing fasciitis right abdominal wall Lab Data Labs: Laboratory Results - last 24 hr 01/21/21 01/21/21 01/21/21 16:00 16:00 16:00 WBC 9.2 RBC 4.73 Hgb 11.3 L Hct 36.2 L MCV 76.5 L MCH 23.9 L MCHC 31.2 L RDW Std Deviation 41.6 RDW Coeff of Anastacio 14.9 H Plt Count 297 MPV 10.5 Immature Gran % (Auto) 0.400 Neut % (Auto) 61.0 Lymph % (Auto) 23.0 Jackson % (Auto) 12.5 H Eos % (Auto) 2.4 Baso % (Auto) 0.7 Absolute Neuts (auto) 5.6 Absolute Lymphs (auto) 2.12 Nucleated RBC % 0 PT 14.3 INR 1.2 APTT 28.4 Sodium 138 Potassium 4.1 Chloride 108 H Carbon Dioxide 22.0 Anion Gap 8 BUN 17 Creatinine 1.20 H Estim Creat Clear Calc 61.86 Est GFR (MDRD) Af Amer 73 Est GFR (MDRD) Non-Af 61 BUN/Creatinine Ratio 14.2 Glucose 104 Lactic Acid Calcium 9.0 Total Bilirubin 0.40 AST 14 L ALT 13 Alkaline Phosphatase 69 Total Protein 7.7 Albumin 3.7 Globulin 4.0 Albumin/Globulin Ratio 0.9 Serum , Qual Urine Color Urine Clarity Urine pH Ur Specific [place] Urine Protein Urine Glucose (UA) Urine Ketones Urine Occult Blood Urine Nitrite Urine Bilirubin Urine Urobilinogen Ur Leukocyte Esterase Urine RBC Urine WBC Ur Squamous Epith Cells Urine Bacteria Urine Mucus 01/21/21 01/21/21 01/21/21 16:00 18:25 19:45 WBC RBC Hgb Hct MCV MCH MCHC RDW Std Deviation RDW Coeff of Anastacio Plt Count MPV Immature Gran % (Auto) Neut % (Auto) Lymph % (Auto) Jackson % (Auto) Eos % (Auto) Baso % (Auto) Absolute Neuts (auto) Absolute Lymphs (auto) Nucleated RBC % PT INR APTT Sodium Potassium Chloride Carbon Dioxide Anion Gap BUN Creatinine Estim Creat Clear Calc Est GFR (MDRD) Af Amer Est GFR (MDRD) Non-Af BUN/Creatinine Ratio Glucose Lactic Acid 0.9 Calcium Total Bilirubin AST ALT Alkaline Phosphatase Total Protein Albumin Globulin Albumin/Globulin Ratio Serum , Qual NEGATIVE Urine Color Yellow Urine Clarity Clear Urine pH 6.0 Ur Specific [place] 1.015 Urine Protein 15 H Urine Glucose (UA) Normal Urine Ketones Negative Urine Occult Blood Negative Urine Nitrite Negative Urine Bilirubin Negative Urine Urobilinogen Normal Ur Leukocyte Esterase 25 H Urine RBC 0-5 SEEN Urine WBC 0-5 SEEN Ur Squamous Epith Cells 5-10 SEEN Urine Bacteria 0 SEEN Urine Mucus 0 SEEN Radiography Diagnostic Testing: Radiology Impression Chest X-Ray 01/21/21 16:45 IMPRESSION: Normal x-ray examination of the chest. Electronically Signed: Enrico Gibbs MD at 16:56 EDT Tel , Service support , Abdomen/Pelvis CT 01/21/21 19:47 IMPRESSION: Continued markedly abnormal right abdominal wall and flank with prominent soft tissue induration, skin thickening, and soft tissue air. Findings are consistent with necrotizing fasciitis and remained external to the pelvic cavity. Electronically Signed: Brent Baxter MD at 20:34 EDT , Service support , Discharge Plan Triage Chief Complaint: Cellulitis ED Provider: Gino Simmons Dx/Rx/DC Orders Prescriptions: No Action bupropion HCl 150 MG tablet sustained-release 12 hr 150 mg PO QHS RF: 0 trazodone 50 MG tablet 50 mg PO QHS RF: 0 magnesium oxide 400 MG tablet 400 mg PO BID RF: 0 docusate sodium [DOK] 100 MG capsule 100 mg PO BID RF: 0 montelukast 10 MG tablet 10 mg PO QHS RF: 0 escitalopram oxalate 20 MG tablet 20 mg PO QHS RF: 0 melatonin 10 MG tablet 10 mg PO QHS RF: 0 ranitidine HCl 150 MG tablet 300 mg PO BID RF: 0 riboflavin (vitamin B2) 400 MG tablet 400 mg PO DAILY RF: 0 buspirone 5 MG tablet 15 mg PO TID RF: 0 fluticasone propion-salmeterol 1 EACH blister with device 2 ea IH BID PRN (Reason: Wheezing) RF: 0 ondansetron HCl 8 MG tablet 8 mg PO PRN PRN (Reason: Nausea) RF: 0 dextroamphetamine-amphetamine 20 MG tablet 20 mg PO DAILY RF: 0 promethazine 25 MG tablet 25 mg PO PRN PRN (Reason: Vomiting) RF: 0 omeprazole 20 MG capsule 40 mg PO DAILY RF: 0 gabapentin 100 MG capsule 100 mg PO TID RF: 0 albuterol sulfate 1 PUFF inhaler 1 puff inhalation Q4H PRN PRN (Reason: Asthma) RF: 0 metronidazole [Flagyl] 500 mg Tablet 500 mg PO Q8H RF: 0 hydroxyzine HCl [Atarax] 50 mg Tablet 50 mg PO BID RF: 0 levofloxacin 750 mg Tablet 750 mg PO DAILY RF: 0 doxycycline hyclate 100 mg Tablet 100 mg PO BID RF: 0 lorazepam 0.5 mg Tablet 0.5 mg PO DAILY PRN (Reason: Anxiety) RF: 0 Primary Care Provider: Juancarlos Soriano
[2021-01-21 16:25] LABS: Absolute Lymphocyte Count 2.12 X10^3/uL (0.83-4.51); Absolute Neutrophil Count 5.6 X10^3/uL (2.0-7.7); Basophil# 0.06 X10^3/uL; Basophil% 0.7 % (0-1); Eosinophil# 0.22 X10^3/uL; Eosinophils% 2.4 % (0-5); Hematocrit 36.2 % (37-47); Hemoglobin 11.3 g/dL (12.0-15.0); Lymphocyte # 2.12 X10^3/ul (0.83-4.51); Mean Corp Hgb Conc 31.2 g/dL (32-36); Mean Corpuscular Hgb 23.9 pg (27.0-32.0); Mean Corpuscular Volume 76.5 fL (81-99); Mean Platelet Vol. 10.5 fl (6.2-12.0); Monocyte# 1.15 X10^3/uL; Monocyte% 12.5 % (0-10); NRBC Flagged by Analyzer 0 % (0-5); Neutrophil # 5.63 X10^3/uL (2.7-7.7); Platelet Count 297 K/mm3 (150-450); RBC Distribution Width CV 14.9 % (11.6-14.6); RBC Distribution Width SD 41.6 fl (35.1-43.9); Red Blood Count 4.73 M/mm3 (4.2-5.4); White Blood Count 9.2 K/mm3 (4.4-11.0)
[2021-01-21] MEDS: 0.9% Normal Saline 1,000 ML 999 ML IV (16:30)
[2021-01-21 16:33] LABS: International Normalized Ratio 1.2; Partial Thromboplast Time 28.4 Seconds (24.1-36.2); Prothrombin Time (Protime)PT. 14.3 SECONDS (11.7-14.9)
--- NOTE | 2021-01-21 16:45 | RAD_ITS ---
STUDY: X-RAY CHEST REASON FOR EXAM: Female, 20 years old. fever TECHNIQUE: Single AP portable view of the chest. COMPARISON: 10/08/2020 FINDINGS: The lungs are clear and expanded. There is no demonstrated pleural abnormality. Normal size heart. Normal mediastinum and melissa. Normal visualized pulmonary arteries. Normal visualized aortic arch and descending thoracic aorta. Normal visualized thoracic spine. Normal visualized ribs, clavicles, and shoulders. There is no demonstrated abnormality of the visualized soft tissue structures of the upper abdomen. RAD/Chest 1 View (Portable) IMPRESSION: Normal x-ray examination of the chest. Electronically Signed: Enrico Gibbs MD at 16:56 EDT Tel , Service support ,
[2021-01-21 16:51] LABS: Lactic Acid 0.9 mmol/L (0.4-1.9)
[2021-01-21 16:52] LABS: ALB/GLOB Ratio 0.9 RATIO (0.9-2.4); AST(SGOT) 14 U/L (15-37); Alanine Aminotransfer ALT/SGPT 13 U/L (13-56); Albumin, Serum 3.7 g/dL (3.2-5.0); Alkaline Phosphatase 69 U/L (45-117); Anion Gap 8 (5-15); BUN 17 mg/dL (7-18); BUN/Creat Ratio 14.2 RATIO (10-20); Chloride 108 mmol/L (98-107); EST Glomerular Filtration Rate 61 mL/min (>60); Est Glom Filt Rate - Afr Amer 73 mL/min (>60); Estimated Creatinine Clearance 61.86 ml/min; Glucose 104 mg/dL (74-106); Potassium 4.1 mmol/L (3.5-5.1); Protein, Total 7.7 g/dL (6.4-8.2); Sodium Level 138 mmol/L (136-145)
[2021-01-21] MEDS: Morphine 4 MG/ML Syringe IV (17:16)
[2021-01-21] MEDS: Ondansetron 4 MG/2 ML Vial IV (17:16)
[2021-01-21 17:19] VITALS: BP 95/83; PULSE 119; RESP 22; TEMP 36.6; O2SAT 99
[2021-01-21 18:27] VITALS: BP 87/52; PULSE 113; RESP 23; RESP 24; TEMP 36.6; O2SAT 96
[2021-01-21 19:05] VITALS: BP 100/73; PULSE 124; RESP 20; TEMP 36.6; O2SAT 97
[2021-01-21 19:35] LABS: Internal QC Validated? YES +Cl - CLEAR BKGD; Pregnancy, Serum, hCG Quali. NEGATIVE Negative
[2021-01-21 19:47] LABS: Bacteria 0 SEEN /hpf (None Seen); Mucous, Urine 0 SEEN /hpf (<or=2+)
--- NOTE | 2021-01-21 19:47 | CT_ITS ---
STUDY: CT ABDOMEN AND PELVIS WITH CONTRAST REASON FOR EXAM: Female, 20 years old. abdominal pain RADIATION DOSAGE (If Supplied By Facility): CTDIvol = ( 17.07 ) mGy, DLP = ( 1415.55 ) mGycm TECHNIQUE: Transaxial images were obtained from the dome of the diaphragm to the symphysis pubis without oral contrast. IV 100mL Isovue-370 was administered. Sagittal and coronal images were reconstructed. Individualized dose optimization techniques were used for this CT. COMPARISON: 12/24/2020, 01/06/2021. FINDINGS: Continued markedly abnormal appearance of the right abdominal wall and flank where there is extensive subcutaneous air, skin thickening, at least one large skin defect, diffuse induration. Grossly stable since the most recent study. No specific focal fluid collections are seen. Findings continue to be consistent with the stated history of necrotizing fasciitis. No extension of this abnormality into the abdominal pelvic cavity is seen. No definite abnormalities are seen within the abdomen or pelvis. Continued unremarkable appearance of the liver, spleen, gallbladder, pancreas, adrenal glands, kidneys and GI tract. Continued unremarkable appearance of the pelvis. CT/Abdomen/Pelvis W IV Cont ONLY IMPRESSION: Continued markedly abnormal right abdominal wall and flank with prominent soft tissue induration, skin thickening, and soft tissue air. Findings are consistent with necrotizing fasciitis and remained external to the pelvic cavity. Electronically Signed: Brent Baxter MD at 20:34 EDT , Service support ,
[2021-01-21 19:55] LABS: Color, Urine Yellow (Yellow); Glucose, Dipstick Normal (Normal); Ketone-Dipstick Negative (Negative); Leukocyte Esterase-Dipstick 25 /ul (Negative); Nitrite-Dipstick Negative (Negative); Occult Blood-Urine Negative /ul (Negative); Protein-Dipstick 15 mg/dl (Negative); Specific Gravity, Urine 1.015 (1.002-1.030); Urine Bilirubin Dipstick Negative (Negative); Urine Clarity Clear (Clear); Urine Urobilinogen Normal (Normal)
[2021-01-21 20:05] LABS: Red Blood Cells-Urine 0-5 SEEN /hpf (0-5); Squamous Epithelial Cells - UA 5-10 SEEN /hpf (5-10); White Blood Cells 0-5 SEEN /hpf (0-5)
[2021-01-21 20:06] VITALS: BP 115/72; PULSE 109; RESP 28; TEMP 37.1; O2SAT 96
[2021-01-21] MEDS: fentaNYL 100 MCG/2 ML Ampul 50 MCG IV (20:30)
[2021-01-21 21:15] VITALS: BP 105/78; PULSE 104; RESP 18; TEMP 37.1; O2SAT 98
== END 2021-01-21 21:39 | disposition short-term general hospital (02) ==
PROVIDERS: Emergency Provider Student in an Organized Health Care Education/Training Program; PCP Family Medicine
DX: M72.6 Necrotizing fasciitis (principal); F60.3 Borderline personality disorder; F44.5 Conversion disorder with seizures or convulsions; F41.1 Generalized anxiety disorder; Z79.2 Long term (current) use of antibiotics; Z79.899 Other long term (current) drug therapy
CPT/HCPCS: 36415; 71045; 74177; 80053; 81001; 83605; 84703; 85025; 85610; 85730; 87040; 87086; 87088; 87426; 93005; 96361; 96365; 96367; 96375; 99285; J7030; Q9967; A4216; J2405

== ENCOUNTER 2021-03-02 11:09 | Emergency (ER) | payer MEDICAID, SELFPAY ==
[2021-03-02 11:10] VITALS: BP 133/95; PULSE 100; RESP 16; TEMP 36.6; O2SAT 96; BMI 47.2
[2021-03-02 11:17] VITALS: O2SAT 97
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
[2021-03-02 13:38] VITALS: BP 118/63; PULSE 98; RESP 14; O2SAT 98
[2021-03-02] MEDS: Morphine 4 MG/ML Syringe IV ×2 (13:38→15:46)
[2021-03-02 13:51] LABS: Absolute Lymphocyte Count 1.44 X10^3/uL (0.83-4.51); Absolute Neutrophil Count 3.4 X10^3/uL (2.0-7.7); Basophil# 0.04 X10^3/uL; Basophil% 0.7 % (0-1); Eosinophil# 0.09 X10^3/uL; Eosinophils% 1.6 % (0-5); Hemoglobin 10.4 g/dL (12.0-15.0); Lymphocyte # 1.44 X10^3/ul (0.83-4.51); Lymphocyte % 26.3 % (19-41); Mean Corp Hgb Conc 31.5 g/dL (32-36); Mean Platelet Vol. 9.7 fl (6.2-12.0); Monocyte# 0.47 X10^3/uL; Monocyte% 8.6 % (0-10); NRBC Flagged by Analyzer 0 % (0-5); Neutrophil # 3.41 X10^3/uL (2.7-7.7); Neutrophil % 62.4 % (47-70); Platelet Count 243 K/mm3 (150-450); RBC Distribution Width CV 15.7 % (11.6-14.6); RBC Distribution Width SD 43.1 fl (35.1-43.9); Red Blood Count 4.34 M/mm3 (4.2-5.4); White Blood Count 5.5 K/mm3 (4.4-11.0)
[2021-03-02 14:02] LABS: Internal QC Validated? YES +Cl - CLEAR BKGD; Pregnancy, Serum, hCG Quali. NEGATIVE Negative
[2021-03-02 14:11] LABS: Anion Gap 4 (5-15); BUN 15 mg/dL (7-18); BUN/Creat Ratio 17.9 RATIO (10-20); Calcium,Total 7.9 mg/dL (8.5-10.1); Chloride 109 mmol/L (98-107); Creatinine, Serum 0.84 mg/dL (0.55-1.02); EST Glomerular Filtration Rate 91 mL/min (>60); Est Glom Filt Rate - Afr Amer 111 mL/min (>60); Estimated Creatinine Clearance 92.25 ml/min; Glucose 107 mg/dL (74-106); Potassium 3.7 mmol/L (3.5-5.1); Sodium Level 139 mmol/L (136-145); Troponin-I HS < 3.0 pg/mL (3.0-53.7)
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
[2021-03-02 15:56] LABS: Bacteria 0 SEEN /hpf (None Seen); Mucous, Urine 0 SEEN /hpf (<or=2+); Red Blood Cells-Urine 0 SEEN /hpf (0-5); White Blood Cells 0 SEEN /hpf (0-5)
[2021-03-02 15:59] LABS: Color, Urine Yellow (Yellow); Glucose, Dipstick Normal (Normal); Ketone-Dipstick Negative (Negative); Leukocyte Esterase-Dipstick Negative /ul (Negative); Nitrite-Dipstick Negative (Negative); Occult Blood-Urine Negative /ul (Negative); Protein-Dipstick Negative (Negative); Urine Bilirubin Dipstick Negative (Negative); Urine Clarity Sl. Cloudy (Clear); Urine Urobilinogen Normal (Normal)
[2021-03-02 16:17] LABS: Squamous Epithelial Cells - UA 0-5 SEEN /hpf (5-10)
[2021-03-02 16:29] VITALS: BP 105/68; PULSE 71; RESP 18; TEMP 36.7; O2SAT 94
[2021-03-02 16:33] VITALS: BP 105/68; PULSE 73; RESP 18; TEMP 36.7; O2SAT 94
== END 2021-03-02 16:00 | disposition short-term general hospital (02) ==
LOC: ED 12:26
PROVIDERS: Emergency Provider Emergency Medicine; PCP Family Medicine
DX: G83.11 Monoplegia of lower limb affecting right dominant side (principal); R20.2 Paresthesia of skin; R41.82 Altered mental status, unspecified; F60.3 Borderline personality disorder; F41.1 Generalized anxiety disorder; F33.9 Major depressive disorder, recurrent, unspecified; Z79.899 Other long term (current) drug therapy; V49.9XXA Car occupant (driver) (passenger) injured in unspecified traffic accident, initial encounter; Y93.I9 Activity, other involving external motion; Y92.410 Unspecified street and highway as the place of occurrence of the external cause; Y99.8 Other external cause status
CPT/HCPCS: 70450; 71260; 72125; 72128; 72131; 74177; 80048; 81001; 82077; 84484; 84703; 85025; 93005; 96374; 96376; 99285; Q9967; A4216

== ENCOUNTER 2021-03-18 15:57 | Emergency (ER) | payer MEDICAID, SELFPAY ==
[2021-03-18 16:01] VITALS: BP 142/85; PULSE 105; RESP 17; TEMP 37; O2SAT 99; BMI 47.5
[2021-03-18 16:06] VITALS: O2SAT 99
--- NOTE | 2021-03-18 16:12 | EX.ED.DYSGE1 ---
HPI History of Present Illness Chief Complaint: Shortness of Breath Informant: patient Narrative Narrative: Patient is a 20-year-old female who presents to the emergency department for left-sided rib pain. She states that she felt a pop whenever she fell from standing. She states that she tripped. She has been short of breath since. She describes the pain as severe in the left side of her ribs. No weakness or loss of sensation in any extremity. The pain does not radiate. She denies any her head or losing consciousness. No neck pain or back pain. She is not on any blood thinning medications. She has not taken anything for this yet. [facility] Medical History (Updated 03/19/21 @ 00:[address] Breonna Agustin MD) Borderline personality disorder Conversion disorder HOLLY (generalized anxiety disorder) Major depressive disorder, recurrent, moderate Necrotizing fasciitis Pseudoseizure Subcutaneous emphysema Home Medications bupropion HCl 150 mg PO QHS 11/11/16 [History Last Taken 05/25/19] docusate sodium [DOK] 100 mg PO BID 11/11/16 [History Last Taken 05/26/19] escitalopram oxalate 20 mg PO QHS 11/11/16 [History Last Taken 05/25/19] magnesium oxide 400 mg PO BID 11/11/16 [History Last Taken 05/26/19] melatonin 10 mg PO QHS 11/11/16 [History Last Taken 05/25/19] montelukast 10 mg PO QHS 11/11/16 [History Last Taken 05/25/19] trazodone 50 mg PO QHS 11/11/16 [History Last Taken 05/25/19] riboflavin (vitamin B2) 400 mg PO DAILY 05/26/19 [History Last Taken 05/26/19] albuterol sulfate 1 puff INHALATION Q4H PRN PRN 07/20/19 [History Last Taken Unknown] buspirone 15 mg PO TID 07/20/19 [History Last Taken Unknown] dextroamphetamine-amphetamine 20 mg PO DAILY 07/20/19 [History Last Taken Unknown] fluticasone propion-salmeterol 2 ea IH BID PRN 07/20/19 [History Last Taken Unknown] gabapentin 300 mg PO QHS 07/20/19 [History Last Taken Unknown] omeprazole 40 mg PO BID 07/20/19 [History Last Taken Unknown] ondansetron HCl 8 mg PO PRN PRN 07/20/19 [History Last Taken Unknown] promethazine 25 mg PO PRN PRN 07/20/19 [History Last Taken Unknown] hydroxyzine HCl [Atarax] 50 mg PO BID 01/21/21 [History Last Taken Unknown] lorazepam 0.5 mg PO DAILY PRN 01/21/21 [History Last Taken Unknown] trazodone 100 mg PO QHS 03/02/21 [History Last Taken Unknown] Allergy/AdvReac Type Severity Reaction Status Date / Time azithromycin [From Zithromax] Allergy Rash Verified 03/02/21 11:14 sulfamethoxazole Allergy Rash Verified 03/02/21 11:14 [From Bactrim] trimethoprim [From Bactrim] Allergy Rash Verified 03/02/21 11:14 Social History Smoking Status: Never smoker ROS ROS ED Constitutional Constitutional ED: Denies chills or fever(s) Eyes Eyes: Denies change in vision ENT ENT ED: Denies epistaxis or rhinorrhea Cardiovascular Cardiovascular: Reports chest pain; Denies palpitations Respiratory/Chest Respiratory/Chest: Reports dyspnea; Denies cough Gastrointestinal Gastrointestinal: Denies abdominal pain, nausea or vomiting Musculoskeletal Musculoskeletal: Denies back pain or neck pain Integumentary Denies rash Neurologic Neurologic: Denies dizziness, headache(s) or weakness EXAM Physical Exam Const Vital Signs: 03/18/21 16:01 03/18/21 16:06 03/18/21 18:04 Temperature 98.6 F Temperature Source Oral Pulse Rate 105 H 98 Respiratory Rate 17 14 Respiratory Effort Normal Non-Labored Respiratory Depth Normal Respiratory Pattern Normal Blood Pressure 142/85 H 138/74 H Blood Pressure Mean 104 95 Pulse Ox 99 99 Oxygen Delivery Method Room Air Room Air Room Air Fraction of Inspired Oxygen (FIO2) 03/18/21 21:00 03/18/21 23:00 03/19/21 00:05 Temperature Temperature Source Pulse Rate 98 91 Respiratory Rate 14 17 15 Respiratory Effort Respiratory Depth Respiratory Pattern Normal Blood Pressure 143/91 H 134/74 H Blood Pressure Mean 108 94 Pulse Ox 97 96 Oxygen Delivery Method Room Air Room Air Fraction of Inspired Oxygen (FIO2) 60 03/19/21 00:12 08/11/21 00:21 Temperature Temperature Source Pulse Rate 79 Respiratory Rate 18 Respiratory Effort Respiratory Depth Respiratory Pattern Blood Pressure 145/97 H Blood Pressure Mean 113 Pulse Ox 100 Oxygen Delivery Method Mechanical Ventilator Fraction of Inspired Oxygen (FIO2) 40 Positive well nourished and well developed General Appearance ED: well developed and NAD HEENT Reports normocephalic, head/scalp atraumatic and moist mucous membranes Eyes PERRL and EOMs intact bilaterally Neck supple General: Negative for tenderness Chest Wall inspection of chest normal Chest Narrative: Tenderness with palpation along the left lateral chest wall. No crepitus appreciated. No overlying skin changes or trauma appreciated. Resp normal respiratory effort and clear to auscultation bilaterally Auscultation: Negative for rales, rhonchi or wheezes Cardio regular rhythm and no murmurs GI normal to inspection, nondistended, normoactive bowel sounds and non-tender Palpation: soft; Negative for guarding or rebound tenderness present Extremity normal to inspection General Extremety ED: Negative for edema or tenderness General Extremity: Negative for edema Neuro no sensory deficits noted Sensorium / Orientation: alert Motor Exam: strength 5/5 throughout Psych mental status grossly normal Skin no rashes or lesions noted MDM MDM MDM Narrative Medical decision making narrative: Patient presents to the emergency department for left lateral rib pain and shortness of breath after a fall from ground-level. She denies head injury. Will check x-rays of the chest to make sure that there are no broken ribs or pneumothorax. On arrival to the emergency department she is satting 99% on room air. She has borderline tachycardic. Patient does have extensive history of having subcutaneous emphysema for multiple issues before in the past. She states that the last time this happened was in November of this year and she was intubated 6 times over a hospital course of 6 weeks. Chest x-ray was significant for subcutaneous emphysema. At that time CT imaging was performed. Did do CT scan of the chest/abdomen/pelvis. This did show extensive subcu emphysema including pneumomediastinum. This did extend up to the neck. Patient told me that she had a sinus issue the last time she had a subcutaneous emphysema and a CT scan of her head and facial bones were obtained based on this. She denies hitting her head. This did not reveal any acute bone fractures or dislocations. I do feel patient needs to be observed and she has been transferred multiple times before in the past as the hand singer here is not comfortable caring for her. Patient wanted to be transferred to [facility] and I spoke to the trauma doctor and they refused to admit and they want me to speak to the emergency medicine doctor. This doctor also refused to have the patient be transferred there as it was no traumatic findings except for the air. Patient then requested to be transferred to [facility] so I tried them. They wanted the patient to be transferred to [facility] as she has been there previously. Patient did not want to be transferred to us today but whenever had a rediscussion with her she was agreeable with this plan. I spoke with the trauma doctor and Dr. Duggan the emergency medicine doctor ended up excepting her. Throughout course of ED stay I was called to the room as she started to have extensive swelling of the left side of her face. She feels like her voice is getting scratchy and it hurts to swallow. She still does not feel significantly short of breath. Given the fact she has required intubation before in the past for subcutaneous emphysema and worsening symptoms I do feel we need to make sure patient's airway is stable for transfer. Given the rapidly swelling face ice called the on-call anesthesiologist, Dr. Agustin who was willing to come help with the intubation. This was all discussed with the patient and she is agreeable with this plan. Consent was obtained and risks were discussed with her. Patient tolerated intubation well. She had ketamine, propofol and a 6.5 tube was able to be passed by the anesthesiologist. Patient put on propofol and fentanyl for post intubation sedation. Nursing staff did find a needle and a syringe on the patient. Around some of the areas where she does have emphysema there are small pinpricks with that blood can be pushed out. Apparently patient has been accused of injecting her before in the past and this could have caused her necrotizing fasciitis as well. I did call [facility] to inform them of the change in clinical status as well as the finding with the syringe and needle. Lab Data Labs: Laboratory Results - last 24 hr 03/18/21 03/18/21 03/18/21 17:00 17:00 17:00 WBC 6.3 RBC 4.54 Hgb 11.1 L Hct 36.5 L MCV 80.4 L MCH 24.4 L MCHC 30.4 L RDW Std Deviation 47.8 H RDW Coeff of Anastacio 16.7 H Plt Count 247 MPV 10.4 Immature Gran % (Auto) 0.500 Neut % (Auto) 65.7 Lymph % (Auto) 21.6 Delta % (Auto) 7.9 Eos % (Auto) 3.8 Baso % (Auto) 0.5 Absolute Neuts (auto) 4.2 Absolute Lymphs (auto) 1.36 Nucleated RBC % 0 Sodium 139 Potassium 4.2 Chloride 108 H Carbon Dioxide 25.0 Anion Gap 6 BUN 18 Creatinine 0.81 Estim Creat Clear Calc 91.65 Est GFR (MDRD) Af Amer 115 Est GFR (MDRD) Non-Af 95 BUN/Creatinine Ratio 22.2 H Glucose 103 Calcium 8.7 Total Bilirubin 0.30 AST 37 ALT 45 Alkaline Phosphatase 83 Troponin I High Sens < 3.0 L Total Protein 7.3 Albumin 3.7 Globulin 3.6 Albumin/Globulin Ratio 1.0 Serum , Qual NEGATIVE Radiography Diagnostic Testing: Radiology Impression Chest X-Ray 03/18/21 16:25 IMPRESSION: Pneumomediastinum associated with soft tissue emphysema within the neck and left chest wall. No evidence of pneumothorax. at 1643 Reported and signed by: Arron Ceballos MD Electronically Signed: Arron Ceballos MD at 16:41 EDT Tel , Service support , Chest/Abdomen/Pelvis CT 03/18/21 16:43 IMPRESSION: 1. Pneumomediastinum. There is diffuse subcutaneous emphysema extending upward into the neck left chest wall and bilateral flanks. Minimal air is also seen in the region of the right hip upper thigh and inguinal region. 2. No evidence of fracture or dislocation. 3. No evidence of acute pulmonary disease. 4. No acute intra-abdominal or pelvic process. Electronically Signed: Theodore Garcia DO at 20:10 EDT Tel [phone], Service support , Soft Tissue Neck CT 03/18/21 17:20 IMPRESSION: 1. Diffuse subcutaneous emphysema extending from the anterior mediastinum into the soft tissues of the neck most marked on the left. These findings were not present on a CT of the cervical spine dated 03/02/2021. 2. Otherwise normal CT of the neck. Electronically Signed: Theodore JoseDO at 20:00 EDT Tel [phone], Service support , Brain CT 03/18/21 20:28 IMPRESSION: 1. Normal unenhanced CT scan of the brain. There is no interval change. 2. Normal paranasal and mastoid sinuses. 3. Diffuse subcutaneous emphysema in the left face and neck. Electronically Signed: Theodore Garcia DO at 21:27 EDT Tel [phone], Service support , Facial/Sinus 03/18/21 20:28 IMPRESSION: 1. Normal unenhanced CT of the facial bones. 2. Diffuse soft tissue subcutaneous emphysema of the neck and face. Electronically Signed: Theodore Garcia DO at 21:31 EDT Tel [phone], Service support , Chest X-Ray 03/18/21 23:30 IMPRESSION: 1. Left lower flank subcutaneous gas reidentified. 2. Streaky lucency of the mediastinum and cardiac silhouette is compatible with pneumomediastinum. Subcutaneous gas of the left side of the neck also reidentified. Electronically Signed: Chapito Neal MD at 23:53 EDT , Service support , Critical Care Time Critical Care Time: Yes Critical care time (excluding procedures): 30-74 minutes (45), Discussing w/Patient &/or Family/Process Design Engineer, Discussing w/Consultants, Arranging Admission or Transfer and Performing Direct Patient Care at Bedside Discharge Plan Triage Chief Complaint: Shortness of Breath ED Provider: Perry Benitez Dx/Rx/DC Orders Clinical Impression: Subcutaneous emphysema, Pneumomediastinum Prescriptions: No Action bupropion HCl 150 MG tablet sustained-release 12 hr 150 mg PO QHS RF: 0 trazodone 50 MG tablet 50 mg PO QHS RF: 0 magnesium oxide 400 MG tablet 400 mg PO BID RF: 0 docusate sodium [DOK] 100 MG capsule 100 mg PO BID RF: 0 montelukast 10 MG tablet 10 mg PO QHS RF: 0 escitalopram oxalate 20 MG tablet 20 mg PO QHS RF: 0 melatonin 10 MG tablet 10 mg PO QHS RF: 0 riboflavin (vitamin B2) 400 MG tablet 400 mg PO DAILY RF: 0 buspirone 5 MG tablet 15 mg PO TID RF: 0 fluticasone propion-salmeterol 1 EACH blister with device 2 ea IH BID PRN (Reason: Wheezing) RF: 0 ondansetron HCl 8 MG tablet 8 mg PO PRN PRN (Reason: Nausea) RF: 0 dextroamphetamine-amphetamine 20 MG tablet 20 mg PO DAILY RF: 0 promethazine 25 MG tablet 25 mg PO PRN PRN (Reason: Vomiting) RF: 0 omeprazole 20 MG capsule 40 mg PO BID RF: 0 gabapentin 100 MG capsule 300 mg PO QHS RF: 0 albuterol sulfate 1 PUFF inhaler 1 puff inhalation Q4H PRN PRN (Reason: Asthma) RF: 0 hydroxyzine HCl [Atarax] 50 mg Tablet 50 mg PO BID RF: 0 lorazepam 0.5 mg Tablet 0.5 mg PO DAILY PRN (Reason: Anxiety) RF: 0 trazodone 100 mg Tablet 100 mg PO QHS RF: 0 Primary Care Provider: Juancarlos Soriano Referrals: Juancarlos Soriano MD [Primary Care Provider] - Disposition Disposition: Acute Care Hospital Discharge Location: [facility]
--- NOTE | 2021-03-18 16:25 | RAD_ITS ---
History: Fall, left rib pain EXAMINATION/TECHNIQUE: XR Chest 2 Views: COMPARISON: None FINDINGS: LINES/DEVICES: None. LUNGS: No consolidation, edema or effusion. No pneumothorax. MEDIASTINUM AND CARDIOVASCULAR STRUCTURES: Cardiac silhouette not enlarged. Pneumomediastinum is noted. BONES AND SOFT TISSUES: Soft tissue emphysema noted within the neck and left anterolateral soft tissues of the chest RAD/Chest PA and Lateral IMPRESSION: Pneumomediastinum associated with soft tissue emphysema within the neck and left chest wall. No evidence of pneumothorax. at 1643 Reported and signed by: Arron Ceballos MD Electronically Signed: Arron Ceballos MD at 16:41 EDT Tel , Service support ,
--- NOTE | 2021-03-18 16:43 | CT_ITS ---
STUDY: CT CHEST, ABDOMEN T PELVIS WITH CONTRAST REASON FOR EXAM: Female, 20 years old. Chest x-ray. RADIATION DOSAGE (If Supplied By Facility): CTDIvol = ( 21.78 ) mGy, DLP = ( 2046.59 ) mGycm TECHNIQUE: Transaxial imaging was performed following intravenous administration of IV 100mL Isovue-370. Multiplanar coronal and sagittal images were reformatted. Individualized dose optimization techniques were used for this CT. COMPARISON: Chest, 03/18/2021. CT of the chest and pelvis, 03/02/2021 and compared FINDINGS: CHEST The lungs are normal. There is no demonstrated pleural abnormality. There is air in the anterior mediastinum from the thoracic inlet to the right heart margin. Air extends about the great vessels into the neck outlining the left carotid and thyroid lobe. The heart is normal in size. Normal hilar regions. Normal unenhanced pulmonary arteries. Normal aorta arch and descending thoracic aorta. There is no visualized fracture. Air is seen in the soft tissues of the mid chest extending into the left breast and downward along the left lateral chest wall. Minimal air is also seen in the soft tissues of the right flank. ABDOMEN Normal liver. Normal gallbladder and extrahepatic biliary system. Normal spleen. Normal pancreas. Normal bilateral adrenal glands. Normal right kidney. Normal left kidney. Normal visualized stomach. Normal small intestine. Normal colon. The appendix is visualized and appears normal. Normal abdominal aorta. Normal inferior vena cava. Normal retroperitoneum. PELVIS Normal urinary bladder. Normal uterus and ovaries. There is no pelvic fluid. There is no free air within the peritoneal cavity. There is no pelvic lymphadenopathy or mass lesion. Normal visualized pelvic arteries. There is air in the soft tissues of the right flank along the lower rib cage. There are multifocal areas seen in the subcutaneous tissues of the right flank extending downward to the level of the right hip. There is minimal stranding. Small focal areas of air are seen in the soft tissues of the buttock as well as a right inguinal region. Air is also seen scattered in the subcutaneous tissues of the right anterior thigh. Normal osseous structures. CT/CT Chest, Abd, Pel w/Contrast IMPRESSION: 1. Pneumomediastinum. There is diffuse subcutaneous emphysema extending upward into the neck left chest wall and bilateral flanks. Minimal air is also seen in the region of the right hip upper thigh and inguinal region. 2. No evidence of fracture or dislocation. 3. No evidence of acute pulmonary disease. 4. No acute intra-abdominal or pelvic process. Electronically Signed: Theodore Garcia DO at 20:10 EDT Tel [phone], Service support ,
[2021-03-18] MEDS: Acetaminophen 325 MG Tablet 650 MG PO (16:47)
[2021-03-18 17:18] LABS: Absolute Lymphocyte Count 1.36 X10^3/uL (0.83-4.51); Absolute Neutrophil Count 4.2 X10^3/uL (2.0-7.7); Basophil# 0.03 X10^3/uL; Basophil% 0.5 % (0-1); Eosinophil# 0.24 X10^3/uL; Eosinophils% 3.8 % (0-5); Hematocrit 36.5 % (37-47); Hemoglobin 11.1 g/dL (12.0-15.0); Lymphocyte # 1.36 X10^3/ul (0.83-4.51); Lymphocyte % 21.6 % (19-41); Mean Corp Hgb Conc 30.4 g/dL (32-36); Mean Corpuscular Hgb 24.4 pg (27.0-32.0); Mean Corpuscular Volume 80.4 fL (81-99); Mean Platelet Vol. 10.4 fl (6.2-12.0); Monocyte% 7.9 % (0-10); NRBC Flagged by Analyzer 0 % (0-5); Neutrophil # 4.15 X10^3/uL (2.7-7.7); Neutrophil % 65.7 % (47-70); Platelet Count 247 K/mm3 (150-450); RBC Distribution Width CV 16.7 % (11.6-14.6); RBC Distribution Width SD 47.8 fl (35.1-43.9); Red Blood Count 4.54 M/mm3 (4.2-5.4); White Blood Count 6.3 K/mm3 (4.4-11.0)
--- NOTE | 2021-03-18 17:20 | CT_ITS ---
STUDY: CT SOFT TISSUE NECK WITH CONTRAST REASON FOR EXAM: Female, 20 years old. Fall. Injury. Abnormal x-ray. RADIATION DOSAGE (If Supplied By Facility): CTDIvol = ( 21.88 ) mGy, DLP = ( 726.93 ) mGycm TECHNIQUE: The patient was scanned in a multi-detector CT scanner. High resolution transaxial imaging was performed following intravenous administration of IV 100mL Isovue-370. Sagittal and coronal images were reconstructed. Individualized dose optimization techniques were used for this CT. COMPARISON: 09/29/2020. FINDINGS: There is a tear in the soft tissues of the bilateral periatrial mandible lower face extending upward into the left zygomatic arch. Air is seen in the soft tissues of the submandibular space and right neck extending downward to the chest wall. Air is seen within the left sternocleidomastoid muscle. Air is seen in the soft tissues of the anterior chest wall and extending downward into the anterior aspect of the superior mediastinum. Small amounts of air are seen in the soft tissues of the anterior right chest wall. The parotids are intact. Normal bilateral sublingual and submandibular glands. Normal visualized nasopharynx. Normal retropharyngeal space. Normal perivertebral space. Normal visualized bilateral faucial tonsils. The visualized tongue, tongue base and oropharynx are normal. The visualized cervical lymph nodes (levels I-) are within normal size limits, and maintain normal morphology. There is no demonstrated solid or cystic mass lesion. There is no abnormal contrast enhancement. Normal epiglottis, bilateral vallecula and hypopharynx. The pre-epiglottic and paraglottic adipose spaces are normal. Normal visualized bilateral piriform sinuses, aryepiglottic folds, vocal cords, and arytenoid-cricoid articulations. Normal subglottic trachea. Normal bilateral lobes of the thyroid gland. The left is outlined with gas. Normal visualized pulmonary apices. Normal visualized paranasal sinuses. Normal visualized cervical spine. CT/Soft Tissue Neck WITH Contrast IMPRESSION: 1. Diffuse subcutaneous emphysema extending from the anterior mediastinum into the soft tissues of the neck most marked on the left. These findings were not present on a CT of the cervical spine dated 03/02/2021. 2. Otherwise normal CT of the neck. Electronically Signed: Theodore Garcia DO at 20:00 EDT Tel [phone], Service support ,
[2021-03-18 17:45] LABS: AST(SGOT) 37 U/L (15-37); Alanine Aminotransfer ALT/SGPT 45 U/L (13-56); Albumin, Serum 3.7 g/dL (3.2-5.0); Alkaline Phosphatase 83 U/L (45-117); Anion Gap 6 (5-15); BUN 18 mg/dL (7-18); BUN/Creat Ratio 22.2 RATIO (10-20); Calcium,Total 8.7 mg/dL (8.5-10.1); Chloride 108 mmol/L (98-107); Creatinine, Serum 0.81 mg/dL (0.55-1.02); EST Glomerular Filtration Rate 95 mL/min (>60); Est Glom Filt Rate - Afr Amer 115 mL/min (>60); Estimated Creatinine Clearance 91.65 ml/min; Globulin 3.6 g/dL (2.2-4.2); Glucose 103 mg/dL (74-106); Potassium 4.2 mmol/L (3.5-5.1); Protein, Total 7.3 g/dL (6.4-8.2); Sodium Level 139 mmol/L (136-145); Troponin-I HS < 3.0 pg/mL (3.0-53.7)
[2021-03-18 17:56] LABS: Internal QC Validated? YES +Cl - CLEAR BKGD; Pregnancy, Serum, hCG Quali. NEGATIVE Negative
[2021-03-18 18:04] VITALS: BP 138/74; PULSE 98; RESP 14; O2SAT 99
--- NOTE | 2021-03-18 18:04 | ED.RN ---
multiple attempts made with ultrasound. unable to even with defusic catheter. abdiel michele rn [phone]
[2021-03-18] MEDS: Morphine 4 MG/ML Syringe IV ×2 (18:55→20:56)
--- NOTE | 2021-03-18 20:28 | CT_ITS ---
STUDY: CT FACIAL BONES WITHOUT CONTRAST REASON FOR EXAM: Female, 20 years old. Is fractured sinus with subcutaneous emphysema. RADIATION DOSAGE (If Supplied By Facility): CTDIvol = ( 29.38 ) mGy, DLP = ( 525.42 ) mGycm TECHNIQUE: The patient was scanned in a multi detector CT scanner. Sagittal and coronal images were reconstructed. Individualized dose optimization techniques were used for this CT. COMPARISON: CT of the head, 03/18/2021. CT of the soft tissues of the neck, 03/18/2021. FINDINGS: There is air in the soft tissues of the left anterior neck extending into the submandibular region and upward into both lower cheeks as well as the left paratracheal neck left masseter space and along the left temporal musculature. Normal orbital timmons and orbital contents. Normal nasal bones and anterior nasal spine. Normal facial bones. There is no demonstrated fracture. Normal visualized paranasal sinuses. CT/Sinus/Facial Bone IMPRESSION: 1. Normal unenhanced CT of the facial bones. 2. Diffuse soft tissue subcutaneous emphysema of the neck and face. Electronically Signed: Theodore Garcia DO at 21:31 EDT Tel [phone], Service support ,
--- NOTE | 2021-03-18 20:28 | CT_ITS ---
STUDY: CT BRAIN WITHOUT CONTRAST REASON FOR EXAM: Female, 20 years old. Previous fractured sinus with subcutaneous emphysema. Fall. RADIATION DOSAGE (If Supplied By Facility): CTDIvol = ( 44.99 ) mGy, DLP = ( 796.11 ) mGycm TECHNIQUE: Transaxial CT imaging of the brain was performed without administration of intravenous contrast material. Individualized dose optimization techniques were used for this CT. COMPARISON: CT of the head, 03/02/2021. FINDINGS: There is a subcutaneous emphysema in the left roving weight gauger space. Air is seen in the left paratracheal region and extending into the soft tissues of the left lateral face. Also extends upward along the left temporal musculature. Normal calvarium. Normal size ventricles and extra-axial spaces for the patient''s age. Normal white matter tracts of the cerebral hemispheres. Normal basal ganglia and thalami. Normal brainstem. Normal cerebellum. There is no intracranial hemorrhage. There are no findings of an acute ischemic infarction. Normal visualized paranasal sinuses. CT/Brain/Head without Contrast IMPRESSION: 1. Normal unenhanced CT scan of the brain. There is no interval change. 2. Normal paranasal and mastoid sinuses. 3. Diffuse subcutaneous emphysema in the left face and neck. Electronically Signed: Theodore Garcia DO at 21:27 EDT Tel [phone], Service support ,
[2021-03-18 21:00] VITALS: BP 143/91; PULSE 98; RESP 14; O2SAT 97
[2021-03-18 23:00] VITALS: BP 134/74; PULSE 91; RESP 17; O2SAT 96
--- NOTE | 2021-03-18 23:30 | RAD_ITS ---
STUDY: X-RAY CHEST REASON FOR EXAM: Female, 20 years old. FELL WHILE WALKING DOG, SUDDEN SHORTNESS OF BREATH. HX OF ASTHMA, SUBCUTANEOUS EMPHYSEMA TECHNIQUE: Single AP portable view of the chest. COMPARISON: CT of the chest dated March 18, 2021 at 7:13 PM FINDINGS: Left lower flank subcutaneous gas reidentified. Streaky lucency of the mediastinum and cardiac silhouette is compatible with pneumomediastinum. Subcutaneous gas of the left side of the neck also reidentified. The lungs are clear and expanded. There is no demonstrated pleural abnormality. Normal size heart. Normal contours mediastinum and melissa. Normal visualized pulmonary arteries. Normal visualized aortic arch and descending thoracic aorta. Normal visualized thoracic spine. Normal visualized ribs, clavicles, and shoulders. There is no demonstrated abnormality of the visualized soft tissue structures of the upper abdomen. RAD/Chest 1 View (Portable) IMPRESSION: 1. Left lower flank subcutaneous gas reidentified. 2. Streaky lucency of the mediastinum and cardiac silhouette is compatible with pneumomediastinum. Subcutaneous gas of the left side of the neck also reidentified. Electronically Signed: Chapito Neal MD at 23:53 EDT , Service support ,
[2021-03-18] MEDS: Ketamine HCl 500 MG/5 ML Vial 244 MG IV (23:54)
[2021-03-18] MEDS: Propofol 200 MG/20 ML Vial 50 MG IV BOLUS (23:55)
[2021-03-19] MEDS: Succinylcholine Chloride 200 MG/10 ML Vial 120 MG IV (00:01)
[2021-03-19 00:05] VITALS: RESP 14; RESP 15
[2021-03-19] MEDS: Propofol 10MG/Ml 1,000 MG/100 ML Bottle 7.3 MG CONT INF (00:05)
--- NOTE | 2021-03-19 00:06 | PN_ITS ---
Subjective Subjective Anesthesia - airway note Called by ED attending for intubation of patient, possible difficult airway. This is a 20yo F who has worsening subq emphysema. Patient states it is difficult to breathe at this point and swelling is noted in her face. Patient has had this in the past which has required intubation. Patient denies being told she was a difficult intubation in the past. Denies hx of trach or any surgical airway with previous intubation attempts. She states she hasn't eaten for several hours. Objective Data Objective Data Vital Signs: Vital Signs Temp Pulse Resp BP Pulse Ox 98.6 F 91 17 134/74 H 96 03/18/21 16:01 03/18/21 23:00 03/18/21 23:00 03/18/21 23:00 03/18/21 23:00 Oxygen Delivery Method Room Air Weight: 121.8 kg Body Mass Index (BMI) 47.5 Lab / Micro Data Result Diagrams: 03/18/21 17:00 03/18/21 17:00 Labs: Laboratory Results - last 24 hr 03/18/21 17:00: WBC 6.3, RBC 4.54, Hgb 11.1 L, Hct 36.5 L, MCV 80.4 L, MCH 24.4 L, MCHC 30.4 L, RDW Std Deviation 47.8 H, RDW Coeff of Anastacio 16.7 H, Plt Count 247, MPV 10.4, Immature Gran % (Auto) 0.500, Neut % (Auto) 65.7, Lymph % (Auto) 21.6, [place] % (Auto) 7.9, Eos % (Auto) 3.8, Baso % (Auto) 0.5, Absolute Neuts (auto) 4.2, Absolute Lymphs (auto) 1.36, Nucleated RBC % 0 03/18/21 17:00: Sodium 139, Potassium 4.2, Chloride 108 H, Carbon Dioxide 25.0, Anion Gap 6, BUN 18, Creatinine 0.81, Estim Creat Clear Calc 91.65, Est GFR (MDRD) Af Amer 115, Est GFR (MDRD) Non-Af 95, BUN/Creatinine Ratio 22.2 H, Glucose 103, Calcium 8.7, Total Bilirubin 0.30, AST 37, ALT 45, Alkaline Phosphatase 83, Troponin I High Sens < 3.0 L, Total Protein 7.3, Albumin 3.7, Globulin 3.6, Albumin/Globulin Ratio 1.0 03/18/21 17:00: Serum , Qual NEGATIVE Radiography Diagnostic Testing: Radiology Impression Chest X-Ray 03/18/21 16:25 IMPRESSION: Pneumomediastinum associated with soft tissue emphysema within the neck and left chest wall. No evidence of pneumothorax. at 1643 Reported and signed by: Arron Ceballos MD Electronically Signed: Arron Ceballos MD at 16:41 EDT Tel , Service support , Chest/Abdomen/Pelvis CT 03/18/21 16:43 IMPRESSION: 1. Pneumomediastinum. There is diffuse subcutaneous emphysema extending upward into the neck left chest wall and bilateral flanks. Minimal air is also seen in the region of the right hip upper thigh and inguinal region. 2. No evidence of fracture or dislocation. 3. No evidence of acute pulmonary disease. 4. No acute intra-abdominal or pelvic process. Electronically Signed: Theodore Garcia DO at 20:10 EDT Tel [phone], Service support , Soft Tissue Neck CT 03/18/21 17:20 IMPRESSION: 1. Diffuse subcutaneous emphysema extending from the anterior mediastinum into the soft tissues of the neck most marked on the left. These findings were not present on a CT of the cervical spine dated 03/02/2021. 2. Otherwise normal CT of the neck. Electronically Signed: Theodore Garcia DO at 20:00 EDT Tel [phone], Service support , Brain CT 03/18/21 20:28 IMPRESSION: 1. Normal unenhanced CT scan of the brain. There is no interval change. 2. Normal paranasal and mastoid sinuses. 3. Diffuse subcutaneous emphysema in the left face and neck. Electronically Signed: Theodore Garcia DO at 21:27 EDT Tel [phone], Service support , Facial/Sinus 03/18/21 20:28 IMPRESSION: 1. Normal unenhanced CT of the facial bones. 2. Diffuse soft tissue subcutaneous emphysema of the neck and face. Electronically Signed: Theodore Garcia DO at 21:31 EDT Tel [phone], Service support , Chest X-Ray 03/18/21 23:30 IMPRESSION: 1. Left lower flank subcutaneous gas reidentified. 2. Streaky lucency of the mediastinum and cardiac silhouette is compatible with pneumomediastinum. Subcutaneous gas of the left side of the neck also reidentified. Electronically Signed: Chapito Neal MD at 23:53 EDT , Service support , Physical Exam Narrative MP 3, teeth in poor condition. morbidly obese. HEENT HEENT Narrative: swelling noted to her face, near eyes and cheeks. Assessment & Plan Assessment/Plan (1) Subcutaneous emphysema: PLAN: ED attending requesting intubation be performed for airway protection now prior to transport to other facility. Procedure explained to patient, patient voices understanding and is agreeable to proceed with intubation now before it would be needed emergently. Medication given by ED RN. Ketamine 240mg IV, Propofol 50mg IV, Succinylcholine 120mg IV (injected once vocal cords visualized) patient preoxygenated. Easy bag mask. Glidescope used, size 3 blade. 1 attempt. cords easily visualized but closed. Succinylcholine administered and once cords opened a 6.5 ETT advanced easily, stylet removed. Positive color change. SpO2 remained 100% throughout entire intubation. Bilateral breath sounds. ETT secured by RT at 23cm at lip. CXR planned for placement confirmation. Patient tolerated intubation without any difficulty. Breonna Agustin DO Anesthesiologist
--- NOTE | 2021-03-19 00:07 | RAD_ITS ---
STUDY: X-RAY CHEST REASON FOR EXAM: Female, 20 years old. Post intubation TECHNIQUE: Single frontal view of the chest. COMPARISON: 03/18/2021 FINDINGS: Nasogastric tube extends inferiorly outside the field of view below the LEFT hemidiaphragm. RIGHT mainstem bronchus intubation. Recommend retraction of endotracheal tube by 3 cm. There is pneumomediastinum and gas within the soft tissues of the neck and LEFT chest. Low lung volumes are present. There is bilateral pulmonary infiltrates. No definitive pneumothorax. No pleural effusion is seen. The cardiac silhouette is within normal limits size. RAD/Chest 1 View (Portable) IMPRESSION: RIGHT mainstem bronchus intubation. Recommend 3 cm of retraction. Diffuse gas within the chest and neck. Pneumomediastinum. Bilateral pulmonary infiltrates. N.B. : The above Results were Read Back by Willam Calle MD to Dr. Elizabeth MD, and understanding confirmed on 03/19/2021 01:48:21 (ET). Electronically Signed: Willam Calle MD at 1:48 EDT Tel , Service support ,
[2021-03-19 00:12] VITALS: BP 145/97; PULSE 79; RESP 18; O2SAT 100
--- NOTE | 2021-03-19 00:26 | ED.RN ---
5 ml syringe and 22G needle observed in pt's backpack while packing cell phone for transfer. Pt also appears to have 3 injection sites, small pinpoint dried blood areas that bleed when wiped with alcohol swab, beside left eye, on left neck and above left breast. MD and charge nurse aware.
--- NOTE | 2021-03-19 02:00 | ED.RN ---
called [facility] to let them know patient on her way and to let them know rad called and talked to Dr Johnson about the intubation tube in R main bronchi. Also to let know about syringe with needle and injection sites found on face when we squeezed. Talked to Yemi and gave report. He transferred me to charge nurse. RAUDEL Tee aware.
== END 2021-03-19 01:35 | disposition short-term general hospital (02) ==
PROVIDERS: Emergency Provider Emergency Medicine; PCP Family Medicine
DX: T79.7XXA Traumatic subcutaneous emphysema, initial encounter (principal); W19.XXXA Unspecified fall, initial encounter; Y93.9 Activity, unspecified; Y92.9 Unspecified place or not applicable; F41.1 Generalized anxiety disorder; J45.909 Unspecified asthma, uncomplicated; Z79.899 Other long term (current) drug therapy
CPT/HCPCS: 31500; 51702; 70450; 70486; 70491; 71045; 71046; 71260; 74177; 80053; 84484; 84703; 85025; 94002; 96365; 96366; 96368; 96375; 96376; 99251; 99285; J7030; Q9967; A4216; G0463; J0330; J3010

== ENCOUNTER 2021-04-24 21:22 | Emergency (ER) | payer MEDICAID, SELFPAY ==
[2021-04-24 21:23] VITALS: BP 128/68; PULSE 129; RESP 15; TEMP 36.9; O2SAT 100; BMI 44.2
--- NOTE | 2021-04-24 21:42 | RAD_ITS ---
EXAM: XR CHEST, 1 VIEW : 2000 CLINICAL INDICATION: SOB TECHNIQUE: Frontal view of the chest. This report was created using [employer] report generation technology. COMPARISON: 03/19/2021 FINDINGS: LUNGS AND PLEURAL SPACES: Unremarkable. No consolidation or edema. No pneumothorax. No effusion. HEART: Unremarkable. Cardiac silhouette not enlarged. MEDIASTINUM: Central airways and mediastinal contour are unremarkable. BONES/JOINTS: Unremarkable. SOFT TISSUES: There is gas seen in subcutaneous tissues over the neck. TUBES, LINES AND DEVICES: Endotracheal tube and nasogastric tube have been removed. RAD/Chest 1 View (Portable) IMPRESSION: 1. No acute pulmonary abnormality. 2. Subcutaneous emphysema over the neck. If indicated further evaluation with CT scan may be beneficial. at 2223 Reported and signed by: Jimenez Ren MD Electronically Signed: Jimenez Ren MD at 22:22 EDT Tel , Service support ,
[2021-04-24 23:39] VITALS: BP 135/84; PULSE 112; RESP 22; O2SAT 99
--- NOTE | 2021-04-25 00:09 | CT_ITS ---
EXAM: CT CHEST WITHOUT INTRAVENOUS CONTRAST : 2000 CLINICAL INDICATION: pneumomediastinum TECHNIQUE: Helically acquired images were obtained of the chest without intravenous contrast. This CT exam was performed using one or more of the following dose reduction techniques: automated exposure control, adjustment of the mA and/or kV according to patient size, and/or use of iterative reconstruction technique. This report was created using [email or web address] report generation technology. COMPARISON: None. FINDINGS: LUNGS AND PLEURAL SPACES: There is no pneumothorax identified. No mass. No pleural effusion or thickening. HEART: Unremarkable. Heart size is normal. No pericardial effusion. MEDIASTINUM: Unremarkable. No mediastinal or hilar adenopathy. Esophagus is unremarkable. No hiatal hernia. THYROID: Unremarkable. No thyroid lesions. BONES/JOINTS: Unremarkable. No suspicious lytic or blastic abnormality. SOFT TISSUES: Gas in the anterior mediastinum extending up into the subcutaneous tissues over the neck extending into the subcutaneous tissues at the undersurface of the jaw. VASCULATURE: Unremarkable. Thoracic aorta is non-dilated. CT/Chest without Contrast IMPRESSION: Gas in the anterior superior mediastinum extending up into the neck which may represent a pneumomediastinum. There is no fluid or abscess. There is no evidence of pneumothorax. There is no focal consolidation. Individualized dose optimization techniques were used for this CT. at 0210 Reported and signed by: Jimenez Ren MD Electronically Signed: Jimenez Ren MD at 2:09 EDT Tel , Service support ,
--- NOTE | 2021-04-25 00:12 | EDS_ITS ---
HPI History of Present Illness Chief Complaint: Shortness of Breath Informant: patient Onset/Context/Timing Onset: Today Context: gradual Timing: Continuous Current Severity: Mild Maximum Severity: Mild Associated Symptoms Negative for cough, yellow sputum or green sputum Narrative Narrative: 20-year-old female history of asthma, depression anxiety. History of subcu air and pneumomediastinum. Was nicely intubated and transferred to hospital there about a week ago. She had this multiple times until no specific source is a concern whether these may be self-inflicted. I asked the patient not specifically and she denies. She is also history of left arm necrotizing fasciitis. PE Risk Factors: Negative for Cancer, OCP + Smoking + > 35 and Prior DVT or PE Prior similar symptoms: Yes Recent Illness/Hospitalization: Yes PFSH [facility] Medical History Borderline personality disorder Conversion disorder HOLLY (generalized anxiety disorder) Major depressive disorder, recurrent, moderate Necrotizing fasciitis Pseudoseizure Subcutaneous emphysema Home Medications bupropion HCl 150 mg PO QHS 11/11/16 [History Last Taken 05/25/19] docusate sodium [DOK] 100 mg PO BID 11/11/16 [History Last Taken 05/26/19] escitalopram oxalate 20 mg PO QHS 11/11/16 [History Last Taken 05/25/19] magnesium oxide 400 mg PO BID 11/11/16 [History Last Taken 05/26/19] melatonin 10 mg PO QHS 11/11/16 [History Last Taken 05/25/19] montelukast 10 mg PO QHS 11/11/16 [History Last Taken 05/25/19] trazodone 50 mg PO QHS 11/11/16 [History Last Taken 05/25/19] riboflavin (vitamin B2) 400 mg PO DAILY 05/26/19 [History Last Taken 05/26/19] albuterol sulfate 1 puff INHALATION Q4H PRN PRN 07/20/19 [History Last Taken Unknown] buspirone 15 mg PO TID 07/20/19 [History Last Taken Unknown] dextroamphetamine-amphetamine 20 mg PO DAILY 07/20/19 [History Last Taken Unknown] fluticasone propion-salmeterol 2 ea IH BID PRN 07/20/19 [History Last Taken Unknown] gabapentin 300 mg PO QHS 07/20/19 [History Last Taken Unknown] omeprazole 40 mg PO BID 07/20/19 [History Last Taken Unknown] ondansetron HCl 8 mg PO PRN PRN 07/20/19 [History Last Taken Unknown] promethazine 25 mg PO PRN PRN 07/20/19 [History Last Taken Unknown] hydroxyzine HCl [Atarax] 50 mg PO BID 01/21/21 [History Last Taken Unknown] lorazepam 0.5 mg PO DAILY PRN 01/21/21 [History Last Taken Unknown] trazodone 100 mg PO QHS 03/02/21 [History Last Taken Unknown] Allergy/AdvReac Type Severity Reaction Status Date / Time azithromycin [From Zithromax] Allergy Rash Verified 04/24/21 21:23 sulfamethoxazole Allergy Rash Verified 04/24/21 21:23 [From Bactrim] trimethoprim [From Bactrim] Allergy Rash Verified 04/24/21 21:23 Social History Smoking Status: Never smoker ROS ROS ED ROS Narrative Denies recent illness. Review of Systems ROS Unobtainable: Denies due to encephalopathy Constitutional Constitutional ED: Denies chills or fever(s) Eyes Eyes: Denies change in vision ENT ENT ED: Denies ear pain, rhinorrhea or sore throat Cardiovascular Cardiovascular: Reports chest pain Respiratory/Chest Respiratory/Chest: Reports dyspnea; Denies cough or sputum Gastrointestinal Gastrointestinal: Denies abdominal pain, diarrhea, nausea or vomiting Genitourinary Genitourinary ED: Denies dysuria or hematuria Musculoskeletal Musculoskeletal: Denies myalgias Integumentary Denies rash Neurologic Neurologic: Denies headache(s) Psychiatric Psychiatric: Denies depression Endocrine Endocrinology: Denies polyuria Hematologic/Lymphatic Hematologic/Lymphatic: Denies easy bruising Allergic/Immunologic Allergic/Immunologic ED: Denies urticaria EXAM Physical Exam Narrative Exam Narrative: Female vital signs stable she is tachycardic on my exam her heart rates about 115. Pulse ox 100%. Afebrile. She does not look septic or toxic. H EENT exam unremarkable. Moist use membranes. No trouble swallowing or breathing. Neck she does have subcu air. Trachea midline. Lungs clear to auscultation bilaterally. Heart tachycardic rate about 115 no murmur. Subcu air in her upper chest. Abdomen soft nontender normal bowel sounds no peritoneal signs. Patient is moving all 4 extremities. No edema. Calves nontender. Back nontender. Neurologically she is awake alert with no focal motor deficits. Const Vital Signs: 04/24/21 21:23 04/24/21 23:39 04/25/21 01:12 Temperature 98.4 F Temperature Source Temporal Pulse Rate 129 H 112 H 100 Respiratory Rate 15 22 H 26 H Respiratory Effort Short of Breath Respiratory Pattern Tachypnea Blood Pressure 128/68 H 135/84 H 112/67 Blood Pressure Mean 88 101 82 Pulse Ox 100 99 98 Oxygen Delivery Method Room Air Room Air Room Air 04/25/21 03:26 Temperature Temperature Source Pulse Rate 106 H Respiratory Rate 26 H Respiratory Effort Respiratory Pattern Blood Pressure 101/54 L Blood Pressure Mean 69 Pulse Ox 96 Oxygen Delivery Method Room Air Positive well nourished, well developed and obese; Negative for cachectic, contractures or unkempt General Appearance ED: well developed and NAD; Negative for unkempt, cachectic or contractures Nutritional Appearance: obese; Negative for cachectic HEENT Reports moist mucous membranes atraumatic; Negative for trauma or tenderness Eyes PERRL and EOMs intact bilaterally Neck no lymphadenopathy, supple, no meningeal signs and no JVD General: Negative for tenderness Resp normal respiratory effort and clear to auscultation bilaterally Auscultation: Negative for rales, rhonchi or wheezes Cardio regular rhythm, S1 normal heart sound, S2 normal heart sound and no murmurs; Negative for regular rate Rate: tachycardic GI non-tender, non-distended and no masses Auscultation: normoactive bowel sounds Palpation: soft; Negative for tender, guarding or rebound tenderness present Back/Spine no CVA tenderness and normal to inspection Extremity normal to inspection General Extremety ED: Negative for edema or tenderness General Extremity: Negative for edema Neuro oriented x3 Sensorium / Orientation: alert, oriented to person, oriented to place and oriented to time; Negative for orientation impaired, confused, lethargic or stuporous Motor Exam: strength 5/5 throughout Psych mental status grossly normal Appearance: Negative for unkempt Skin Lesions: no lesions Rashes: no rashes MDM MDM MDM Narrative Medical decision making narrative: 20-year-old female with subcu air in her neck and upper chest. History of pneumomediastinum and subcu emphysema in the past. Questionable if this may be self-induced for patient denies. Chest x-ray does verify these findings. Labs are being obtained. Repeat exam patient is doing well at 2:30 AM. She has subcu air in her neck and upper chest but she stable her pulse ox is 99%. Posterior pharynx is unremarkable there is no swelling of her lips or tongue. There is no stridor. Patient has been recently treated for this [facility] and I will discuss with him about a transfer. I spoke to [facility]'s transfer center and one of their surgeons content development manager. They know this patient well. He told me she has had an extensive and complete pleat work-up done at their facility and they believe this is all psychologically induced behavior where the patient injects herself subcutaneously with air. Did not feel that medically they had anything to offer. In the morning one social workers are available in the emergency department all of them evaluate the patient to see if she would possibly be a candidate for transfer to psychiatric facility. I also spoke to [facility] to state This patient before and they had a similar opinion. Lab Data Attestation: I reviewed the patient's lab results. Lab results narrative: CBC shows a white count 6. Hemoglobin 11.3. Electrolytes potassium of 5.8. Which is hemolyzed. Creatinine is 0.8. Glucose 99. Comparing the old labs this is the patient's baseline chronic anemia. Her potassium is usually normal and her kidney function is normal so the elevated potassium is secondary to hemolysis. Labs: Laboratory Results - last 24 hr 04/25/21 04/25/21 00:39 00:39 WBC 6.8 RBC 4.55 Hgb 11.3 L Hct 36.5 L MCV 80.2 L MCH 24.8 L MCHC 31.0 L RDW Std Deviation 44.7 H RDW Coeff of Anastacio 15.5 H Plt Count 257 MPV 9.8 Immature Gran % (Auto) 0.300 Neut % (Auto) 55.5 Lymph % (Auto) 31.7 [place] % (Auto) 9.6 Eos % (Auto) 2.6 Baso % (Auto) 0.3 Absolute Neuts (auto) 3.8 Absolute Lymphs (auto) 2.17 Nucleated RBC % 0 Sodium 138 Potassium 5.8 H Chloride 110 H Carbon Dioxide 23.0 Anion Gap 5 BUN 20 H Creatinine 0.86 Estim Creat Clear Calc 86.32 Est GFR (MDRD) Af Amer 107 Est GFR (MDRD) Non-Af 88 BUN/Creatinine Ratio 23.1 H Glucose 99 Calcium 8.6 Radiography Chest X-Ray - ED: 1 View, Read by ED Physician, Read by Radiologist and Heart Diagnostic Testing: Radiology Impression Chest X-Ray 04/24/21 21:42 IMPRESSION: 1. No acute pulmonary abnormality. 2. Subcutaneous emphysema over the neck. If indicated further evaluation with CT scan may be beneficial. at 2223 Reported and signed by: Jimenez Ren MD Electronically Signed: Jimenez Ren MD at 22:22 EDT Tel , Service support , Chest CT 04/25/21 00:09 IMPRESSION: Gas in the anterior superior mediastinum extending up into the neck which may represent a pneumomediastinum. There is no fluid or abscess. There is no evidence of pneumothorax. There is no focal consolidation. Individualized dose optimization techniques were used for this CT. at 0210 Reported and signed by: Jimenez Ren MD Electronically Signed: Jimenez Ren MD at 2:09 EDT Tel , Service support , Single portable view chest x-ray interpreted by myself and the radiologist shows subcu air in the soft tissues of the neck and upper chest. There is no obvious pneumothorax. Normal cardiac silhouette. CAT scan does not show any acute cause of the subcutaneous air. Discharge Plan Triage Chief Complaint: Shortness of Breath ED Provider: Raza Mart Dx/Rx/DC Orders Clinical Impression: Pneumomediastinum, Subcutaneous air Prescriptions: No Action bupropion HCl 150 MG tablet sustained-release 12 hr 150 mg PO QHS RF: 0 trazodone 50 MG tablet 50 mg PO QHS RF: 0 magnesium oxide 400 MG tablet 400 mg PO BID RF: 0 docusate sodium [DOK] 100 MG capsule 100 mg PO BID RF: 0 montelukast 10 MG tablet 10 mg PO QHS RF: 0 escitalopram oxalate 20 MG tablet 20 mg PO QHS RF: 0 melatonin 10 MG tablet 10 mg PO QHS RF: 0 riboflavin (vitamin B2) 400 MG tablet 400 mg PO DAILY RF: 0 buspirone 5 MG tablet 15 mg PO TID RF: 0 fluticasone propion-salmeterol 1 EACH blister with device 2 ea IH BID PRN (Reason: Wheezing) RF: 0 ondansetron HCl 8 MG tablet 8 mg PO PRN PRN (Reason: Nausea) RF: 0 dextroamphetamine-amphetamine 20 MG tablet 20 mg PO DAILY RF: 0 promethazine 25 MG tablet 25 mg PO PRN PRN (Reason: Vomiting) RF: 0 omeprazole 20 MG capsule 40 mg PO BID RF: 0 gabapentin 100 MG capsule 300 mg PO QHS RF: 0 albuterol sulfate 1 PUFF inhaler 1 puff inhalation Q4H PRN PRN (Reason: Asthma) RF: 0 hydroxyzine HCl [Atarax] 50 mg Tablet 50 mg PO BID RF: 0 lorazepam 0.5 mg Tablet 0.5 mg PO DAILY PRN (Reason: Anxiety) RF: 0 trazodone 100 mg Tablet 100 mg PO QHS RF: 0 Primary Care Provider: Juancarlos Soriano Referrals: Juancarlos Soriano MD [Primary Care Provider] - 3-5 Days Disposition Disposition: Acute Care Hospital
--- NOTE | 2021-04-25 00:18 | ED.RN ---
Addendum entered by Madelin Pickard 04/25/21 00:20: PER PHYSICIAN ORDER Original Note: PTS BELONGINGS REMOVED FROM ROOM.
[2021-04-25 00:49] LABS: Absolute Lymphocyte Count 2.17 X10^3/uL (0.83-4.51); Absolute Neutrophil Count 3.8 X10^3/uL (2.0-7.7); Basophil# 0.02 X10^3/uL; Basophil% 0.3 % (0-1); Eosinophil# 0.18 X10^3/uL; Eosinophils% 2.6 % (0-5); Hematocrit 36.5 % (37-47); Hemoglobin 11.3 g/dL (12.0-15.0); Lymphocyte # 2.17 X10^3/ul (0.83-4.51); Lymphocyte % 31.7 % (19-41); Mean Corpuscular Hgb 24.8 pg (27.0-32.0); Mean Corpuscular Volume 80.2 fL (81-99); Mean Platelet Vol. 9.8 fl (6.2-12.0); Monocyte# 0.66 X10^3/uL; Monocyte% 9.6 % (0-10); NRBC Flagged by Analyzer 0 % (0-5); Neutrophil # 3.79 X10^3/uL (2.7-7.7); Neutrophil % 55.5 % (47-70); Platelet Count 257 K/mm3 (150-450); RBC Distribution Width CV 15.5 % (11.6-14.6); RBC Distribution Width SD 44.7 fl (35.1-43.9); Red Blood Count 4.55 M/mm3 (4.2-5.4); White Blood Count 6.8 K/mm3 (4.4-11.0)
[2021-04-25 01:12] VITALS: BP 112/67; PULSE 100; RESP 26; O2SAT 98
[2021-04-25 01:17] LABS: Anion Gap 5 (5-15); BUN 20 mg/dL (7-18); BUN/Creat Ratio 23.1 RATIO (10-20); Calcium,Total 8.6 mg/dL (8.5-10.1); Chloride 110 mmol/L (98-107); Creatinine, Serum 0.86 mg/dL (0.55-1.02); EST Glomerular Filtration Rate 88 mL/min (>60); Est Glom Filt Rate - Afr Amer 107 mL/min (>60); Estimated Creatinine Clearance 86.32 ml/min; Glucose 99 mg/dL (74-106); Potassium 5.8 mmol/L (3.5-5.1); Sodium Level 138 mmol/L (136-145)
[2021-04-25 03:26] VITALS: BP 101/54; PULSE 106; RESP 26; O2SAT 96
[2021-04-25] MEDS: Acetaminophen 650 MG/20 ML UDC 500 MG PO (04:20)
[2021-04-25 05:13] VITALS: BP 105/60; PULSE 99; RESP 24; O2SAT 97
[2021-04-25 07:30] VITALS: BP 120/70; PULSE 117; RESP 16
== END 2021-04-25 07:31 | disposition home or self-care (01) ==
PROVIDERS: Emergency Provider Emergency Medicine; PCP Family Medicine
DX: J98.2 Interstitial emphysema (principal); F60.3 Borderline personality disorder; F44.5 Conversion disorder with seizures or convulsions; F41.1 Generalized anxiety disorder; E66.9 Obesity, unspecified; Z79.899 Other long term (current) drug therapy
CPT/HCPCS: 71045; 71250; 80048; 85025; 94760; 99285; A4216

== ENCOUNTER 2021-05-29 19:27 | Inpatient (IN) | payer MEDICAID, SELFPAY ==
[2021-05-29] VITALS (10 sets, daily range): BP systolic 120–135; BP diastolic 73–94; PULSE 93–129; RESP 17–28; TEMP 36.9–37.4; O2SAT 97–100; BMI 47.0
[2021-05-29] MEDS: DiphenhydrAMINE 50 MG/ML Syringe IV (19:52)
[2021-05-29] MEDS: MethylPREDNISolone 125 MG/2 ML Vial IV (19:52)
[2021-05-29] MEDS: Etomidate 20 MG/10 ML Vial 30 MG IV (20:18)
[2021-05-29] MEDS: Succinylcholine Chloride 200 MG/10 ML Vial 100 MG IV (20:20)
[2021-05-29] MEDS: Albuterol 2.5 MG/3 ML VIAL.NEB. INHALATION (20:25)
[2021-05-29 20:29] LABS: Absolute Lymphocyte Count 2.67 X10^3/uL (0.83-4.51); Absolute Neutrophil Count 5.8 X10^3/uL (2.0-7.7); Basophil# 0.03 X10^3/uL; Basophil% 0.3 % (0-1); Eosinophil# 0.25 X10^3/uL; Eosinophils% 2.6 % (0-5); Hematocrit 37.3 % (37-47); Hemoglobin 11.6 g/dL (12.0-15.0); Lymphocyte # 2.67 X10^3/ul (0.83-4.51); Lymphocyte % 27.3 % (19-41); Mean Corp Hgb Conc 31.1 g/dL (32-36); Mean Corpuscular Hgb 24.5 pg (27.0-32.0); Mean Corpuscular Volume 78.9 fL (81-99); Mean Platelet Vol. 10.1 fl (6.2-12.0); Monocyte# 0.94 X10^3/uL; Monocyte% 9.6 % (0-10); NRBC Flagged by Analyzer 0 % (0-5); Neutrophil # 5.78 X10^3/uL (2.7-7.7); Neutrophil % 59.2 % (47-70); Platelet Count 260 K/mm3 (150-450); RBC Distribution Width CV 15.9 % (11.6-14.6); RBC Distribution Width SD 41.1 fl (35.1-43.9); Red Blood Count 4.73 M/mm3 (4.2-5.4); White Blood Count 9.8 K/mm3 (4.4-11.0)
[2021-05-29] MEDS: Famotidine 20mg IV Push Syringe Q24 300 MG IV (20:39)
[2021-05-29 20:42] LABS: Anion Gap 6 (5-15); BUN 22 mg/dL (7-18); BUN/Creat Ratio 22.6 RATIO (10-20); Calcium,Total 8.4 mg/dL (8.5-10.1); Chloride 110 mmol/L (98-107); Creatinine, Serum 0.97 mg/dL (0.55-1.02); EST Glomerular Filtration Rate 77 mL/min (>60); Est Glom Filt Rate - Afr Amer 93 mL/min (>60); Estimated Creatinine Clearance 76.53 ml/min; Glucose 125 mg/dL (74-106); Potassium 4.2 mmol/L (3.5-5.1); Sodium Level 140 mmol/L (136-145)
[2021-05-29 20:49] LABS: Partial Thromboplast Time 22.3 Seconds (24.1-36.2)
[2021-05-29 21:00] LABS: Allen Test Positive; Base Excess -2 mmol/L (-2 to +2); Bicarbonate 23.2 mmol/L (22-26); Blood Gas Specimen Type ART; FI02 30; Mode AC; O2 Delivery Device Adult Vent; PEEP 5; PO2 93 mmHG (75-100); RR 14; SITE L Radial; SO2 97 % (95-99); Total Carbon Dioxide 24 mmol/L; Vt 400; pCO2 41.1 mmHg (35-45); pH 7.36 (7.35-7.45)
--- NOTE | 2021-05-29 21:10 | RAD_ITS ---
EXAM: XR Chest, 1 View CLINICAL INDICATION: 20 years old, Female; sob TECHNIQUE: Frontal view of the chest. This report was created using [employer] report generation technology. COMPARISON: None. FINDINGS: Lungs and pleural spaces: Mild infiltrates or atelectasis in the lung bases. Shallow inspiration. No pneumothorax. No effusion. Heart: Unremarkable. Cardiac silhouette not enlarged. Mediastinum: Central airways and mediastinal contour are unremarkable. Bones/joints: Unremarkable. Soft tissues: Subcutaneous emphysema in the neck she is slightly greater than on prior study. Tubes, lines and devices: The endotracheal tube (ETT) is in satisfactory position with tip 2.4 cm above the rain. Enteric tube tip cannot be seen but is below the diaphragm. RAD/Chest 1 View (Portable) IMPRESSION: 1. Subcutaneous emphysema in the neck she is slightly greater than on prior study. 2. Mild infiltrates or atelectasis in the lung bases. Electronically Signed: Jose Alejandro Marcus MD at 21:33 EDT Tel , Service support ,
--- NOTE | 2021-05-29 21:11 | EX.ED.DYSGE1 ---
HPI History of Present Illness Chief Complaint: Shortness of Breath Informant: patient and parent Narrative Narrative: Patient presents by EMS from home, mother is present for progressive swelling of right eye and worsening swelling around the anterior neck today. Patient history of subcutaneous emphysema with multiple visits. Mom reports is discharged from [facility] 2 days ago after a 1 week stay. She states patient had sudden right eye swelling saw ophthalmology due to severe swelling had a lateral canthotomy in the office in sent to [facility]. Mother states initially was on steroids. Mother states since September has been intubated 10 times. Unclear on etiology. Mother reports she heard 2 sneezing episodes that started the eyes swelling however the last episode causing swelling in the neck. Mother notes understand she has been accused of injecting air into her cell previously, however she states this did not happen. Patient reporting increasing dyspnea and trouble swallowing and breathing. Patient has been given epinephrine in the past per mother with no improvement. Other medical history would be necrotizing fasciitis to the left arm requiring surgery in the past. 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 Is currently on eyedrops. Denies any new foods or changes in medications. Prior similar symptoms: Yes PFSH PFS Medical History Borderline personality disorder Conversion disorder HOLLY (generalized anxiety disorder) Major depressive disorder, recurrent, moderate Necrotizing fasciitis Pseudoseizure Subcutaneous emphysema Home Medications bupropion HCl 300 mg PO QHS 11/11/16 [History Last Taken 05/25/19] docusate sodium [DOK] 200 mg PO BID 11/11/16 [History Last Taken 05/26/19] escitalopram oxalate 20 mg PO QHS 11/11/16 [History Last Taken 05/25/19] magnesium oxide 400 mg PO BID 11/11/16 [History Last Taken 05/26/19] melatonin 10 mg PO QHS 11/11/16 [History Last Taken 05/25/19] riboflavin (vitamin B2) 400 mg PO DAILY 05/26/19 [History Last Taken 05/26/19] albuterol sulfate 1 puff INHALATION Q4H PRN PRN 07/20/19 [History Last Taken Unknown] buspirone 15 mg PO TID 07/20/19 [History Last Taken Unknown] dextroamphetamine-amphetamine [Adderall] 20 mg PO DAILY 07/20/19 [History Last Taken Unknown] gabapentin 300 mg PO TID 07/20/19 [History Last Taken Unknown] omeprazole 40 mg PO BID 07/20/19 [History Last Taken Unknown] ondansetron HCl 8 mg PO PRN PRN 07/20/19 [History Last Taken Unknown] promethazine 25 mg PO PRN PRN 07/20/19 [History Last Taken Unknown] hydroxyzine HCl [Atarax] 50 mg PO BID 01/21/21 [History Last Taken Unknown] lorazepam 0.5 mg PO DAILY PRN 01/21/21 [History Last Taken Unknown] trazodone 100 mg PO QHS 03/02/21 [History Last Taken Unknown] fexofenadine [Helen] 60 mg PO BID 05/29/21 [History Last Taken Unknown] mometasone-formoterol [Dulera] 2 puff INHALATION BID 05/29/21 [History Last Taken Unknown] Allergy/AdvReac Type Severity Reaction Status Date / Time azithromycin [From Zithromax] Allergy Rash Verified 05/29/21 19:42 sulfamethoxazole Allergy Rash Verified 05/29/21 19:42 [From Bactrim] trimethoprim [From Bactrim] Allergy Rash Verified 05/29/21 19:42 Social History Smoking Status: Never smoker [facility] ED Constitutional Constitutional ED: Denies chills, fever(s) or sweats Eyes Eyes: Reports other Details: Right eye swelling ; Denies change in vision ENT ENT ED: Reports other Details: Neck swelling ; Denies dysphagia or sore throat Cardiovascular Cardiovascular: Denies chest pain, leg edema, palpitations or racing heartbeat Respiratory/Chest Respiratory/Chest: Reports dyspnea; Denies cough or dyspnea on exertion Gastrointestinal Gastrointestinal: Denies abdominal pain, diarrhea, nausea or vomiting Genitourinary Genitourinary ED: Denies dysuria, hematuria or urinary frequency Musculoskeletal Musculoskeletal: Denies back pain, extremity pain or neck pain Integumentary Denies rash or wounds Neurologic Neurologic: Denies headache(s), paresthesias or weakness EXAM Physical Exam Const Vital Signs: 05/29/21 19:28 05/29/21 19:35 05/29/21 20:00 Temperature 99.4 F H Temperature Source Temporal Pulse Rate 129 H 128 H Respiratory Rate 28 H 24 H Respiratory Effort Labored Respiratory Depth Normal Respiratory Pattern Tachypnea Normal Blood Pressure 135/84 H Blood Pressure Mean 101 Pulse Ox 100 Oxygen Delivery Method Room Air Room Air Fraction of Inspired Oxygen (FIO2) 05/29/21 20:30 05/29/21 20:45 05/29/21 20:50 Temperature 98.5 F Temperature Source Temporal Pulse Rate 123 H 118 H 127 H Respiratory Rate 22 H 21 H 24 H Respiratory Effort Respiratory Depth Respiratory Pattern Normal Blood Pressure 126/94 H 120/73 Blood Pressure Mean 104 88 Pulse Ox 98 98 100 Oxygen Delivery Method Mechanical Ventilator Room Air Fraction of Inspired Oxygen (FIO2) 30 30 05/29/21 22:11 05/29/21 22:30 Temperature Temperature Source Pulse Rate 105 H 106 H Respiratory Rate 23 H 20 H Respiratory Effort Respiratory Depth Respiratory Pattern Normal Blood Pressure 129/74 H Blood Pressure Mean 92 Pulse Ox 98 Oxygen Delivery Method Fraction of Inspired Oxygen (FIO2) 30 Positive well nourished, well developed and obese General Appearance ED: well developed Nutritional Appearance: obese HEENT Reports moist mucous membranes HEENT Narrative: There was no lip or tongue swelling, there is occasional inspiratory stridor. normocephalic and atraumatic Eyes conjunctivae normal Eyes Narrative: Periorbital swelling in the right eye, there was chemosis of the sclera of the right eye. General Eye ED: Yes normal appearance of both eyes Neck no lymphadenopathy and supple Neck Narrative: Anterior swelling of the neck and submental region. There is crepitus palpated. General: Negative for tenderness Chest Wall Chest: Negative for tenderness Resp normal air movement Effort and Inspection: symmetric chest movement; Negative for respiratory distress Auscultation: diminished lung sounds Cardio regular rate, regular rhythm and no murmurs Peripheral Pulses: pulses 2+ throughout GI normal to inspection, nondistended, normoactive bowel sounds and non-tender Palpation: Negative for guarding or rebound tenderness present Back/Spine no CVA tenderness and no thoracic nor lumbar tenderness Extremity normal to inspection General Extremety ED: Negative for edema or tenderness General Extremity: Negative for edema Neuro oriented x3 and no sensory deficits noted Sensorium / Orientation: awake and alert Skin no rashes or lesions noted and no wounds MDM MDM MDM Narrative Medical decision making narrative: Patient with slight stridor exam there is swelling with crepitus anterior neck and around the right eye. She was given epinephrine. His difficulty with IV placement, nursing was able to finally place in the left upper chest wall. Performed nasal scope through the left nare for evaluation. Have some slight swelling tissues around airway. With patient stridor dyspnea feeling the symptoms worsen discussed with patient mother for securing of airway. They agree. RSI performed place with no difficulties. Patient was given Solu-Medrol, Benadryl, Pepcid. Chest x-ray noted subcutaneous air upper chest neck region. Will obtain noncontrast scan soft tissue neck and chest which is pending. Basic labs were normal. White count normal. Covid testing negative. Patient stable on the ventilator. Discussed with hospital team here, they feel patient best served at a tertiary center especially being discharged from [facility] 2 days ago. I spoke with transfer line, MICU attending Dr. Grier, accepts the patient to [facility]. Awaiting bed placement at this time. Mother patient updated. 2230: CT scan extensive subcutaneous air upper chest neck region unclear etiology per radiology report. Patient stable on the ventilator. Procedure note: Emergent. Nasal scope. 3.8 Cambodian scope entrance from left nare through the septum above the cords noted slight swelling around the tissues. Epiglottis was normal. Airway patent. Intubation: Verbal consent emergent secondary to stridor from patient and mother. Preoxygenated with bag valve mask. 30 mg etomidate, 100 mg succinylcholine used. Glidoidoscope used with visualization of the airway. 7.0 Cambodian tube placed with no difficulties 23 cm at the lip. Positive condensation breath sounds and capnography return. Airway secured. No complications. Lab Data Attestation: I reviewed the patient's lab results. Labs: Laboratory Results - last 24 hr 05/29/21 05/29/21 05/29/21 20:15 20:15 20:15 WBC 9.8 RBC 4.73 Hgb 11.6 L Hct 37.3 MCV 78.9 L MCH 24.5 L MCHC 31.1 L RDW Std Deviation 41.1 RDW Coeff of Anastacio 15.9 H Plt Count 260 MPV 10.1 Immature Gran % (Auto) 1.000 H Neut % (Auto) 59.2 Lymph % (Auto) 27.3 [place] % (Auto) 9.6 Eos % (Auto) 2.6 Baso % (Auto) 0.3 Absolute Neuts (auto) 5.8 Absolute Lymphs (auto) 2.67 Nucleated RBC % 0 PT 13.0 INR 1.0 APTT 22.3 L Sodium 140 Potassium 4.2 Chloride 110 H Carbon Dioxide 24.0 Anion Gap 6 BUN 22 H Creatinine 0.97 Estim Creat Clear Calc 76.53 Est GFR (MDRD) Af Amer 93 Est GFR (MDRD) Non-Af 77 BUN/Creatinine Ratio 22.6 H Glucose 125 H Calcium 8.4 L ABG Data ABG results: ABG 05/29/21 20:56 Specimen Type ART Sample Site L Radial pH 7.36 Bicarbonate Actual 23.2 Total CO2 24 Base Excess -2 O2 Saturation 97 O2 % 30 ABG pCO2 41.1 ABG pO2 93 John Test Positive Respiration Rate 14 O2 Delivery Device Adult Vent Vent Mode AC Tidal Volume 400 POC PEEP 5 Radiography Diagnostic Testing: Clinical Impression(s) from Imaging Studies Chest X-Ray 05/29/21 21:10 IMPRESSION: 1. Subcutaneous emphysema in the neck she is slightly greater than on prior study. 2. Mild infiltrates or atelectasis in the lung bases. Electronically Signed: Jose Alejandro Marcus MD at 21:33 EDT Tel , Service support , Chest CT 05/29/21 21:23 IMPRESSION: 1. Extensive subcutaneous emphysema in the upper chest and neck. The source of this gas is unclear. Small amount of gas is noted in the superior mediastinum. 2. Consolidative infiltrates in both lower lobes may be due to edema or pneumonia. Electronically Signed: Jose Alejandro Marcus MD at 22:29 EDT Tel , Service support , Soft Tissue Neck CT 05/29/21 21:23 IMPRESSION: Extensive subcutaneous emphysema in the face and neck. This is slightly more prominent than on prior CT. The origin of this gas is unclear. A small amount of gas is noted in the upper mediastinum. Electronically Signed: Jose Alejandro Marcus MD at 22:26 EDT Tel , Service support , Critical Care Time Critical Care Time: Yes Critical care time (excluding procedures): 30-74 minutes, Discussing w/Patient &/or Family/Risk Control Product Liability Director, Discussing w/Consultants, Arranging Admission or Transfer, Performing Direct Patient Care at Bedside and - (45 minutes) Discharge Plan Triage Chief Complaint: Shortness of Breath ED Provider: Uli Cooper Dx/Rx/DC Orders Clinical Impression: Acute respiratory failure, Subcutaneous emphysema, Periorbital edema of right eye Prescriptions: No Action bupropion HCl 150 MG tablet sustained-release 12 hr 300 mg PO QHS RF: 0 magnesium oxide 400 MG tablet 400 mg PO BID RF: 0 docusate sodium [DOK] 100 MG capsule 200 mg PO BID RF: 0 escitalopram oxalate 20 MG tablet 20 mg PO QHS RF: 0 melatonin 10 MG tablet 10 mg PO QHS RF: 0 riboflavin (vitamin B2) 400 MG tablet 400 mg PO DAILY RF: 0 buspirone 5 MG tablet 15 mg PO TID RF: 0 ondansetron HCl 8 MG tablet 8 mg PO PRN PRN (Reason: Nausea) RF: 0 dextroamphetamine-amphetamine [Adderall] 20 MG tablet 20 mg PO DAILY RF: 0 promethazine 25 MG tablet 25 mg PO PRN PRN (Reason: Vomiting) RF: 0 omeprazole 20 MG capsule 40 mg PO BID RF: 0 gabapentin 100 MG capsule 300 mg PO TID RF: 0 albuterol sulfate 1 PUFF inhaler 1 puff inhalation Q4H PRN PRN (Reason: Asthma) RF: 0 hydroxyzine HCl [Atarax] 50 mg Tablet 50 mg PO BID RF: 0 lorazepam 0.5 mg Tablet 0.5 mg PO DAILY PRN (Reason: Anxiety) RF: 0 trazodone 100 mg Tablet 100 mg PO QHS RF: 0 Helen 30 mg Tablet 60 mg PO BID RF: 0 Dulera 200-5 mcg/actuation Hfa Aerosol Inhaler 2 puff INHALATION BID RF: 0 Primary Care Provider: Juancarlos Soriano Referrals: Juancarlos Soriano MD [Primary Care Provider] - Disposition Disposition: Transfer to Another Type [facility]
--- NOTE | 2021-05-29 21:23 | CT_ITS ---
EXAM: CT Neck Without Intravenous Contrast CLINICAL INDICATION: 20 years old, Female; subq emphysemia TECHNIQUE: Helically acquired images were obtained of the neck without intravenous contrast. This CT exam was performed using one or more of the following dose reduction techniques: automated exposure control, adjustment of the mA and/or kV according to patient size, and/or use of iterative reconstruction technique. This report was created using [employer] report generation technology. COMPARISON: CT chest dated 03/18/2021 FINDINGS: Nasopharynx: Unremarkable. Suprahyoid neck: Unremarkable. Oropharynx, oral cavity, parapharyngeal space and retropharyngeal space are unremarkable. Infrahyoid neck: Unremarkable. The larynx, hypopharynx and supraglottis are unremarkable. Submandibular/parotid glands: Unremarkable. Glands are normal in size. Thyroid: Unremarkable. No enlarged or calcified nodules. Bones/joints: No acute fracture. Soft tissues: Extensive subcutaneous emphysema in the face and neck. Vasculature: No acute findings. Lymph nodes: Unremarkable. No lymphadenopathy. Mediastinum: Small amount of gas in the superior mediastinum as seen previously. Tubes, lines and devices: ETT and enteric tubes are noted. CT/Soft Tissue Neck without Contr IMPRESSION: Extensive subcutaneous emphysema in the face and neck. This is slightly more prominent than on prior CT. The origin of this gas is unclear. A small amount of gas is noted in the upper mediastinum. Electronically Signed: Jose Alejandro Marcus MD at 22:26 EDT Tel , Service support ,
--- NOTE | 2021-05-29 21:23 | CT_ITS ---
EXAM: CT Chest Without Intravenous Contrast CLINICAL INDICATION: 20 years old, Female; subq emphysema TECHNIQUE: Helically acquired images were obtained of the chest without intravenous contrast. This CT exam was performed using one or more of the following dose reduction techniques: automated exposure control, adjustment of the mA and/or kV according to patient size, and/or use of iterative reconstruction technique. This report was created using [employer] report generation technology. COMPARISON: CT chest dated 04/25/2021. FINDINGS: Lungs and pleural spaces: Consolidative infiltrates in both lower lobes may be due to edema or pneumonia. No mass. No pleural effusion or thickening. Heart: Unremarkable. Heart size is normal. No pericardial effusion. Mediastinum: Small pneumomediastinum in the superior mediastinum. No mediastinal or hilar adenopathy. Esophagus is unremarkable. No hiatal hernia. Thyroid: Unremarkable. No thyroid lesions. Bones/joints: Unremarkable. No suspicious lytic or blastic abnormality. Soft tissues: Extensive subcutaneous emphysema in the upper chest and neck. Vasculature: Unremarkable. Thoracic aorta is non-dilated. Tubes, lines and devices: ETT in satisfactory position. Enteric tube tip is not seen but is at least into the body of the stomach. CT/Chest without Contrast IMPRESSION: 1. Extensive subcutaneous emphysema in the upper chest and neck. The source of this gas is unclear. Small amount of gas is noted in the superior mediastinum. 2. Consolidative infiltrates in both lower lobes may be due to edema or pneumonia. Electronically Signed: Jose Alejandro Marcus MD at 22:29 EDT Tel , Service support ,
[2021-05-29] MEDS: fentaNYL 100 MCG/2 ML Ampul 50 MCG IV (21:47)
[2021-05-30] VITALS (41 sets, daily range): BP systolic 104–132; BP diastolic 67–86; PULSE 69–91; RESP 14–20; TEMP 36.1–36.4; O2SAT 92–98
[2021-05-30] MEDS: fentaNYL 100 MCG/2 ML Ampul 50 MCG IV (01:06)
--- NOTE | 2021-05-30 01:46 | NURSING ---
Called pharm for the precedex, as still do not have it
--- NOTE | 2021-05-30 09:18 | HP.PCM.HOS_ITS ---
HPI - General General Date of Admission: 05/30/21 HPI Narrative SAMEER MOORE, is a 20 F with an extensive PMH as outlined who presents via the ED on 05/29/2021 with a complaint of shortness of breath. History was newly gotten from ED doctor as patient was intubated at the time of my review. Patient has a history of subcutaneous emphysema with multiple visits and adjustment discharge from the [facility] 2 days prior to admission after 1 week stay. She came in this time with a complaint of progressively worsening swelling of the right eye and swelling around the anterior neck on the day of admission. She had previously seen ophthalmology in the office and had a lateral canthotomy on account of right eye swelling. Patient has had multiple intubations for recurrent subcutaneous emphysema. Patient complained of shortness of breath and difficulty swallowing and breathing. In the ED, due to concerns about airway protection, patient was emergently intubated. Plan was to transfer to [facility] and she had been accepted the left on account of no bed availability and patient being down in the ER for at least 14 hours, she was admitted to the medical ICU for management until she can be transferred. Patient was intubated at the time I reviewed her. RASS score was 0 but I could not do review of systems. [facility] Medical History Borderline personality disorder Conversion disorder HOLLY (generalized anxiety disorder) Major depressive disorder, recurrent, moderate Necrotizing fasciitis Pseudoseizure Subcutaneous emphysema Home Medications bupropion HCl 300 mg PO QHS 11/11/16 [History Last Taken 05/25/19] docusate sodium [DOK] 200 mg PO BID 11/11/16 [History Last Taken 05/26/19] escitalopram oxalate 20 mg PO QHS 11/11/16 [History Last Taken 05/25/19] magnesium oxide 400 mg PO BID 11/11/16 [History Last Taken 05/26/19] melatonin 10 mg PO QHS 11/11/16 [History Last Taken 05/25/19] riboflavin (vitamin B2) 400 mg PO DAILY 05/26/19 [History Last Taken 05/26/19] albuterol sulfate 1 puff INHALATION Q4H PRN PRN 07/20/19 [History Last Taken Unknown] buspirone 15 mg PO TID 07/20/19 [History Last Taken Unknown] dextroamphetamine-amphetamine [Adderall] 20 mg PO DAILY 07/20/19 [History Last Taken Unknown] gabapentin 300 mg PO TID 07/20/19 [History Last Taken Unknown] omeprazole 40 mg PO BID 07/20/19 [History Last Taken Unknown] ondansetron HCl 8 mg PO PRN PRN 07/20/19 [History Last Taken Unknown] promethazine 25 mg PO PRN PRN 07/20/19 [History Last Taken Unknown] hydroxyzine HCl [Atarax] 50 mg PO BID 01/21/21 [History Last Taken Unknown] lorazepam 0.5 mg PO DAILY PRN 01/21/21 [History Last Taken Unknown] trazodone 100 mg PO QHS 03/02/21 [History Last Taken Unknown] fexofenadine [Helen] 60 mg PO BID 05/29/21 [History Last Taken Unknown] mometasone-formoterol [Dulera] 2 puff INHALATION BID 05/29/21 [History Last Taken Unknown] Allergy/AdvReac Type Severity Reaction Status Date / Time azithromycin [From Zithromax] Allergy Rash Verified 05/29/21 19:42 sulfamethoxazole Allergy Rash Verified 05/29/21 19:42 [From Bactrim] trimethoprim [From Bactrim] Allergy Rash Verified 05/29/21 19:42 Social History Smoking Status: Never smoker Vital Signs Vital Signs Vital Signs: 05/29/21 19:28 05/29/21 19:35 05/29/21 20:00 Temperature 99.4 F H Temperature Source Temporal Pulse Rate 129 H 128 H Respiratory Rate 28 H 24 H Respiratory Effort Labored Respiratory Depth Normal Respiratory Pattern Tachypnea Normal Blood Pressure 135/84 H Blood Pressure Mean 101 Pulse Ox 100 Oxygen Delivery Method Room Air Room Air Fraction of Inspired Oxygen (FIO2) 05/29/21 20:30 05/29/21 20:45 05/29/21 20:50 Temperature 98.5 F Temperature Source Temporal Pulse Rate 123 H 118 H 127 H Respiratory Rate 22 H 21 H 24 H Respiratory Effort Respiratory Depth Respiratory Pattern Normal Blood Pressure 126/94 H 120/73 Blood Pressure Mean 104 88 Pulse Ox 98 98 100 Oxygen Delivery Method Mechanical Ventilator Room Air Fraction of Inspired Oxygen (FIO2) 30 30 05/29/21 22:11 05/29/21 22:30 05/29/21 23:13 Temperature Temperature Source Pulse Rate 105 H 106 H 95 Respiratory Rate 23 H 20 H 20 H Respiratory Effort Respiratory Depth Respiratory Pattern Normal Blood Pressure 129/74 H 126/82 H Blood Pressure Mean 92 96 Pulse Ox 98 97 Oxygen Delivery Method Room Air Fraction of Inspired Oxygen (FIO2) 30 05/29/21 23:55 05/30/21 00:00 05/30/21 01:15 Temperature Temperature Source Pulse Rate 93 91 91 Respiratory Rate 17 18 17 Respiratory Effort Respiratory Depth Respiratory Pattern Normal Blood Pressure 130/84 H 115/67 Blood Pressure Mean 99 83 Pulse Ox 98 97 98 Oxygen Delivery Method Room Air Mechanical Ventilator Fraction of Inspired Oxygen (FIO2) 30 05/30/21 02:40 05/30/21 04:50 05/30/21 05:23 Temperature Temperature Source Pulse Rate 81 83 88 Respiratory Rate 18 19 H 18 Respiratory Effort Respiratory Depth Respiratory Pattern Normal Normal Blood Pressure 128/73 H Blood Pressure Mean 91 Pulse Ox 96 97 97 Oxygen Delivery Method Room Air Fraction of Inspired Oxygen (FIO2) 30 30 05/30/21 06:45 05/30/21 06:59 05/30/21 07:00 Temperature Temperature Source Pulse Rate 73 74 75 Respiratory Rate 18 18 19 H Respiratory Effort Respiratory Depth Respiratory Pattern Blood Pressure 126/73 H 127/72 H Blood Pressure Mean 90 90 Pulse Ox 97 97 98 Oxygen Delivery Method Mechanical Ventilator Fraction of Inspired Oxygen (FIO2) 30 05/30/21 07:15 05/30/21 08:21 05/30/21 08:42 Temperature Temperature Source Pulse Rate 73 69 70 Respiratory Rate 16 17 18 Respiratory Effort Respiratory Depth Respiratory Pattern Blood Pressure 122/75 H 127/74 H Blood Pressure Mean 90 91 Pulse Ox 98 98 Oxygen Delivery Method Mechanical Ventilator Mechanical Ventilator Fraction of Inspired Oxygen (FIO2) 05/30/21 09:05 Temperature Temperature Source Pulse Rate 70 Respiratory Rate 16 Respiratory Effort Respiratory Depth Respiratory Pattern Blood Pressure 129/74 H Blood Pressure Mean 92 Pulse Ox 98 Oxygen Delivery Method Mechanical Ventilator Fraction of Inspired Oxygen (FIO2) Weight Weight: 265 lb 14.04 oz Body Mass Index (BMI) 47.0 Physical Exam Const Constitutional Narrative: morbidly obese, intubated, sedated. HEENT normocephalic and head/scalp atraumatic Eyes Eyes Narrative: has significant right eye periorbital erythema and edema, able to open right eye slightly Neck no lymphadenopathy and supple Resp Resp Narrative: intubated, diminished breath sounds bibasally, no wheezes or crackles. Cardio S1 normal heart sound, S2 normal heart sound and no murmurs Cardio Narrative: tachycardic GI normal to inspection, nondistended, normoactive bowel sounds, soft to palpation and non-tender Extremity normal to inspection, full ROM and no clubbing, cyanosis or edema Peripheral Pulses: Yes pulses 2+ throughout Skin no rashes or lesions noted Neuro Neuro Narrative: intubated, on precedex Results Lab / Micro Data Result Diagrams: 05/31/21 04:00 05/31/21 04:00 Labs: Laboratory Results - last 24 hr 05/29/21 20:15: WBC 9.8, RBC 4.73, Hgb 11.6 L, Hct 37.3, MCV 78.9 L, MCH 24.5 L, MCHC 31.1 L, RDW Std Deviation 41.1, RDW Coeff of Anastacio 15.9 H, Plt Count 260, MPV 10.1, Immature Gran % (Auto) 1.000 H, Neut % (Auto) 59.2, Lymph % (Auto) 27.3, Dixie % (Auto) 9.6, Eos % (Auto) 2.6, Baso % (Auto) 0.3, Absolute Neuts (auto) 5.8, Absolute Lymphs (auto) 2.67, Nucleated RBC % 0 05/29/21 20:15: Sodium 140, Potassium 4.2, Chloride 110 H, Carbon Dioxide 24.0, Anion Gap 6, BUN 22 H, Creatinine 0.97, Estim Creat Clear Calc 76.53, Est GFR (MDRD) Af Amer 93, Est GFR (MDRD) Non-Af 77, BUN/Creatinine Ratio 22.6 H, Glucose 125 H, Calcium 8.4 L 05/29/21 20:15: PT 13.0, INR 1.0, APTT 22.3 L Micro: Microbiology 05/29/21 21:40 Nasal Secretion SARS-CoV-2 Antigen (Rapid) - Final ABG Data ABG results: ABG 05/29/21 20:56 Specimen Type ART Sample Site L Radial pH 7.36 Bicarbonate Actual 23.2 Total CO2 24 Base Excess -2 O2 Saturation 97 O2 % 30 ABG pCO2 41.1 ABG pO2 93 John Test Positive Respiration Rate 14 O2 Delivery Device Adult Vent Vent Mode AC Tidal Volume 400 POC PEEP 5 Radiology Impression Chest X-Ray 05/29/21 21:10 IMPRESSION: 1. Subcutaneous emphysema in the neck she is slightly greater than on prior study. 2. Mild infiltrates or atelectasis in the lung bases. Electronically Signed: Jose Alejandro Marcus MD at 21:33 EDT Tel , Service support , Chest CT 05/29/21 21:23 IMPRESSION: 1. Extensive subcutaneous emphysema in the upper chest and neck. The source of this gas is unclear. Small amount of gas is noted in the superior mediastinum. 2. Consolidative infiltrates in both lower lobes may be due to edema or pneumonia. Electronically Signed: Jose Alejandro Marcus MD at 22:29 EDT Tel , Service support , Soft Tissue Neck CT 05/29/21 21:23 IMPRESSION: Extensive subcutaneous emphysema in the face and neck. This is slightly more prominent than on prior CT. The origin of this gas is unclear. A small amount of gas is noted in the upper mediastinum. Electronically Signed: Jose Alejandro Marcus MD at 22:26 EDT Tel , Service support , Assessment & Plan Assessment/Plan (1) Acute respiratory failure: (2) Subcutaneous emphysema: (3) Periorbital edema of right eye: PLAN: #Acute hypoxic respiratory failure due to subcutaneous emphysema * CT chest showed extensive subcutaneous emphysema in the upper chest and neck, as well as bilateral lung base infiltrates and small pneumoediastium * on precedex for sedation * vent settings as per critical care , who are consulted * breathing treatment with bronchodilators * started on IV Zosyn on account of findings of bilateral infiltrates. Sputum culture ordered. * Patient also started on IV steroids per critical care. * #Subcutaneous emphysema and pneumomediastinum: Management as above. Etiology is unclear. #Right periorbital cellulitis * Recently had an eye procedure by her phone triage specialist. Placed on empiric antibiotics. * #Super morbid obesity: Complicates acute care, prognosis and expected recovery. #ADHD and depression: * Meds on hold as she is currently intubated and sedated. * Usually on bupropion, buspirone and Adderall as well as escitalopram at home. GI prophylaxis: Famotidine DVT prophylaxis: Lovenox Disposition: accepted at [facility]; awaiting bed. Charges/Coding Visit Charges Inpatient E&M: 39007 Init Hosp L3
--- NOTE | 2021-05-30 09:28 | NURSING ---
ICU [facility] RESP FAILURE, SUBCUTANEOUS EMPHYSEMA
--- NOTE | 2021-05-30 09:36 | NURSING ---
CV ICU 202
--- NOTE | 2021-05-30 12:13 | CON.PCM.CC_ITS ---
Assessment & Plan Assessment/Plan (1) Acute respiratory failure: PLAN: RECOMMENDATIONS: 1. Continue Precedex for sedation. 2. Obtain sputum and send for culture. 3. Start empiric antimicrobials. 4. Start steroids. 5. Continue Lovenox as ordered. 6. Start Pepcid for prophylaxis. 7. Awaiting bed availability and transfer to [facility]. IMPRESSIONS: 1. Acute respiratory failure The patient was intubated in the emergency department over concerns for airway protection. Her ventilator requirements are minimal. Arterial blood gases appropriate. The patient will be continued on Precedex for sedation. Given the changes noted on CT imaging in her lung bases, will obtain sputum for culture. She will also be started empirically on antimicrobials. Given that the ED noted stridor, will continue the patient on steroids. Pepcid will be initiated for GI prophylaxis. 2. Pneumomediastinum/subcutaneous emphysema Unclear precipitating etiology. Continue current supportive measures. 3. Morbid obesity/underlying psychiatric comorbidities/ADHD/GERD Complicates care, management, recovery and prognosis. Continue home medications as indicated. TIME: 32 minutes of critical care time, independent of procedures, was spent addressing the patient's acute respiratory failure, pneumomediastinum/subcutaneous emphysema, review of all data and collaboration with the care team. ([id number]) HPI Consult Data Date of Consult: 05/31/21 HPI Narrative Reason for Consultation: Acute respiratory failure HPI Narrative: The patient is a 20-year-old female, with a history as outlined below, who presented to the emergency department on May 29 with progressive periorbital swelling of her right eye along with swelling along her anterior neck. The patient has significant comorbid psychiatric issues with concern for self-inflicted harm, including possibly injecting herself with air via a syringe. The patient was just discharged from [facility] within the last week. Additional history pertinent to her hospitalization could not be obtained, the patient is currently intubated and sedated. On presentation to the emergency department, the patient was noted to be afebrile and hemodynamically stable. She was maintaining appropriate oxygen saturations on room air. Initial laboratory evaluation revealed no evidence of a leukocytosis. INR was within normal limits. Chemistry profile was unremarkable. CT chest revealed extensive subcutaneous emphysema in the upper chest and neck. Consolidative infiltrates were noted in the bilateral lung bases. A small pneumomediastinum was noted. While in the ED, the patient began to experience stridor and felt short of breath. Therefore, the decision was made to intubate the patient. There were tentative plans to transfer the patient to [facility]. However, there is no bed availability. Nevertheless, she has been accepted there. The patient was subsequently placed on Precedex for sedation. She was admitted to the medical intensive care unit for further management, pending bed availability at [facility]. [facility] Medical History Borderline personality disorder Conversion disorder HOLLY (generalized anxiety disorder) Major depressive disorder, recurrent, moderate Necrotizing fasciitis Pseudoseizure Subcutaneous emphysema Home Medications bupropion HCl 300 mg PO QHS 11/11/16 [History Last Taken 05/25/19] docusate sodium [DOK] 200 mg PO BID 11/11/16 [History Last Taken 05/26/19] escitalopram oxalate 20 mg PO QHS 11/11/16 [History Last Taken 05/25/19] magnesium oxide 400 mg PO BID 11/11/16 [History Last Taken 05/26/19] melatonin 10 mg PO QHS 11/11/16 [History Last Taken 05/25/19] riboflavin (vitamin B2) 400 mg PO DAILY 05/26/19 [History Last Taken 05/26/19] albuterol sulfate 1 puff INHALATION Q4H PRN PRN 07/20/19 [History Last Taken Unknown] buspirone 15 mg PO TID 07/20/19 [History Last Taken Unknown] dextroamphetamine-amphetamine [Adderall] 20 mg PO DAILY 07/20/19 [History Last Taken Unknown] gabapentin 300 mg PO TID 07/20/19 [History Last Taken Unknown] omeprazole 40 mg PO BID 07/20/19 [History Last Taken Unknown] ondansetron HCl 8 mg PO PRN PRN 07/20/19 [History Last Taken Unknown] promethazine 25 mg PO PRN PRN 07/20/19 [History Last Taken Unknown] hydroxyzine HCl [Atarax] 50 mg PO BID 01/21/21 [History Last Taken Unknown] lorazepam 0.5 mg PO DAILY PRN 01/21/21 [History Last Taken Unknown] trazodone 100 mg PO QHS 03/02/21 [History Last Taken Unknown] fexofenadine [Helen] 60 mg PO BID 05/29/21 [History Last Taken Unknown] mometasone-formoterol [Dulera] 2 puff INHALATION BID 05/29/21 [History Last Taken Unknown] Allergy/AdvReac Type Severity Reaction Status Date / Time azithromycin [From Zithromax] Allergy Rash Verified 05/29/21 19:42 sulfamethoxazole Allergy Rash Verified 05/29/21 19:42 [From Bactrim] trimethoprim [From Bactrim] Allergy Rash Verified 05/29/21 19:42 Social History Smoking Status: Never smoker ROS Review of Systems ROS Unobtainable: due to encephalopathy and due to endotracheal tube Physical Exam Const no apparent distress General Appearance: intubated and patient mechanically ventilated Nutritional Appearance: morbidly obese HEENT normocephalic and head/scalp atraumatic Mouth: endotracheal tube in place and OG tube in place Eyes Eyes Narrative: Right periorbital swelling Neck supple General: trachea midline Chest inspection of chest normal Resp Auscultation: diminished lung sounds; Negative for rales, rhonchi or wheezes Cardio regular rate and regular rhythm GI normal to inspection, nondistended, normoactive bowel sounds Extremity no clubbing, cyanosis or edema Skin no rashes or lesions noted Neuro Sensorium / Orientation: sedated on vent Lab / Micro Data Result Diagrams: 05/31/21 04:00 05/31/21 04:00 Labs: Laboratory Results - last 24 hr 05/29/21 20:15: WBC 9.8, RBC 4.73, Hgb 11.6 L, Hct 37.3, MCV 78.9 L, MCH 24.5 L, MCHC 31.1 L, RDW Std Deviation 41.1, RDW Coeff of Anastacio 15.9 H, Plt Count 260, MPV 10.1, Immature Gran % (Auto) 1.000 H, Neut % (Auto) 59.2, Lymph % (Auto) 27.3, Richardson % (Auto) 9.6, Eos % (Auto) 2.6, Baso % (Auto) 0.3, Absolute Neuts (auto) 5.8, Absolute Lymphs (auto) 2.67, Nucleated RBC % 0 05/29/21 20:15: Sodium 140, Potassium 4.2, Chloride 110 H, Carbon Dioxide 24.0, Anion Gap 6, BUN 22 H, Creatinine 0.97, Estim Creat Clear Calc 76.53, Est GFR (MDRD) Af Amer 93, Est GFR (MDRD) Non-Af 77, BUN/Creatinine Ratio 22.6 H, Glucose 125 H, Calcium 8.4 L 05/29/21 20:15: PT 13.0, INR 1.0, APTT 22.3 L Micro: Microbiology 05/29/21 21:40 Nasal Secretion SARS-CoV-2 Antigen (Rapid) - Final ABG Data ABG results: ABG 05/29/21 20:56 Specimen Type ART Sample Site L Radial pH 7.36 Bicarbonate Actual 23.2 Total CO2 24 Base Excess -2 O2 Saturation 97 O2 % 30 ABG pCO2 41.1 ABG pO2 93 John Test Positive Respiration Rate 14 O2 Delivery Device Adult Vent Vent Mode AC Tidal Volume 400 POC PEEP 5 Radiology Impression Chest X-Ray 05/29/21 21:10 IMPRESSION: 1. Subcutaneous emphysema in the neck she is slightly greater than on prior study. 2. Mild infiltrates or atelectasis in the lung bases. Electronically Signed: Jose Alejandro Marcus MD at 21:33 EDT Tel , Service support , Chest CT 05/29/21 21:23 IMPRESSION: 1. Extensive subcutaneous emphysema in the upper chest and neck. The source of this gas is unclear. Small amount of gas is noted in the superior mediastinum. 2. Consolidative infiltrates in both lower lobes may be due to edema or pneumonia. Electronically Signed: Jose Alejandro Marcus MD at 22:29 EDT Tel , Service support , Soft Tissue Neck CT 05/29/21 21:23 IMPRESSION: Extensive subcutaneous emphysema in the face and neck. This is slightly more prominent than on prior CT. The origin of this gas is unclear. A small amount of gas is noted in the upper mediastinum. Electronically Signed: Jose Alejandro Marcus MD at 22:26 EDT Tel , Service support , Charges/Coding Procedures Hospitalists Procedures: [id number] [facility]
[2021-05-30] MEDS: Enoxaparin 40 MG/0.4 ML Syringe SC (12:33)
--- NOTE | 2021-05-30 16:33 | RAD_ITS ---
STUDY: X-RAY CHEST REASON FOR EXAM: Female, 20 years old. line placement TECHNIQUE: AP portable COMPARISON: 05/29/2021 FINDINGS: Poor inspiratory effort is seen with bibasilar atelectasis or infiltrate Endotracheal tube is seen with tip 2.9 cm proximal to rain. Normal size heart. Normal mediastinum and melissa. Normal visualized pulmonary arteries. Normal visualized aortic arch and descending thoracic aorta. Cutaneous emphysema seen in the soft tissues of the neck Normal visualized thoracic spine. Normal visualized ribs, clavicles, and shoulders. Nasogastric present with tip in stomach Central line is seen on the right with tip in distal superior vena cava. There is no demonstrated abnormality of the visualized soft tissue structures of the upper abdomen. RAD/CXR for Line Placement IMPRESSION: Diminished inspiratory effort and mild bibasilar atelectasis. Central line placement with tip in distal superior vena cava. No evidence of pneumothorax Electronically Signed: Trip Castro MD at 17:47 EDT , Service support ,
[2021-05-30] MEDS: Famotidine 20 MG Tablet 40 MG PO (17:51)
[2021-05-30] MEDS: Ipratropium/Albuterol Sulfate 3 ML AMPUL.NEB INHALATION (18:49)
--- NOTE | 2021-05-30 19:00 | PCS.PANDOC ---
PANDEMIC DOCUMENTATION INITIATED: Date: 03/24/2021 Time: 190
--- NOTE | 2021-05-30 20:02 | NURSING ---
Pt awake, writing notes to this RN. Asking if can be unrestrained and why she is not fully sedated. Discussed with her that I've not taken care of her before and would be more than willing to try and unrestrain her as we can. Discussed that our Concrete Pipe Machine Operator has chosen precedex to treat her and not sedate her completely.
--- NOTE | 2021-05-30 23:18 | NURSING ---
Pt mom on phone, updated on current condition.
[2021-05-31] VITALS (41 sets, daily range): BP systolic 102–136; BP diastolic 72–98; PULSE 43–81; RESP 14–20; TEMP 35.4–37.2; O2SAT 89–100
[2021-05-31] MEDS: 0.9% Saline Lock 10 ML Syringe IV ×2 (00:04→05:34)
[2021-05-31 04:11] LABS: Absolute Neutrophil Count 8.9 X10^3/uL (2.0-7.7); Basophil# 0.01 X10^3/uL; Basophil% 0.1 % (0-1); Hematocrit 36.8 % (37-47); Hemoglobin 11.3 g/dL (12.0-15.0); Lymphocyte % 8.8 % (19-41); Mean Corp Hgb Conc 30.7 g/dL (32-36); Mean Corpuscular Hgb 24.4 pg (27.0-32.0); Mean Corpuscular Volume 79.5 fL (81-99); Mean Platelet Vol. 9.9 fl (6.2-12.0); Monocyte# 0.35 X10^3/uL; Monocyte% 3.4 % (0-10); NRBC Flagged by Analyzer 0 % (0-5); Neutrophil # 8.93 X10^3/uL (2.7-7.7); Neutrophil % 87.2 % (47-70); Platelet Count 212 K/mm3 (150-450); RBC Distribution Width CV 16.4 % (11.6-14.6); RBC Distribution Width SD 43.4 fl (35.1-43.9); Red Blood Count 4.63 M/mm3 (4.2-5.4); White Blood Count 10.2 K/mm3 (4.4-11.0)
[2021-05-31 04:26] LABS: Anion Gap 6 (5-15); BUN 14 mg/dL (7-18); Calcium,Total 8.7 mg/dL (8.5-10.1); Chloride 104 mmol/L (98-107); Creatinine, Serum 0.82 mg/dL (0.55-1.02); EST Glomerular Filtration Rate 93 mL/min (>60); Est Glom Filt Rate - Afr Amer 113 mL/min (>60); Estimated Creatinine Clearance 90.53 ml/min; Glucose 179 mg/dL (74-106); Potassium 4.4 mmol/L (3.5-5.1); Sodium Level 136 mmol/L (136-145)
--- NOTE | 2021-05-31 05:50 | PCM.PN.INT ---
Assessment & Plan Assessment/Plan (1) Acute respiratory failure: PLAN: RECOMMENDATIONS: 1. Continue Precedex and Fentanyl for sedation. 2. Continue empiric antimicrobials. 3. Continue Pepcid and steroids. 4. Continue Lovenox as ordered. 5. Perform spontaneous breathing trial this morning and check cuff leak. 6. If the patient is unable to be extubated, start tube feeds. IMPRESSIONS: 1. Acute respiratory failure The patient was intubated in the emergency department over concerns for airway protection. Her ventilator requirements are minimal. Arterial blood gases appropriate. The patient will be continued on Precedex for sedation. Given the changes noted on CT imaging in her lung bases, will obtain sputum for culture. She was also be started empirically on antimicrobials. Given that the ED noted stridor, will continue the patient on steroids. Pepcid was initiated for GI prophylaxis. 2. Pneumomediastinum/subcutaneous emphysema Unclear precipitating etiology. Continue current supportive measures. 3. Morbid obesity/underlying psychiatric comorbidities/ADHD/GERD Complicates care, management, recovery and prognosis. Continue home medications as indicated. TIME: 31 minutes of critical care time, independent of procedures, was spent addressing the patient's acute respiratory failure, pneumomediastinum/subcutaneous emphysema, review of all data and collaboration with the care team. ([id number]) Subjective Subjective The patient was seen and examined at the bedside this morning. Events from the last 24 hours have been reviewed. The patient is currently afebrile, hemodynamically stable and maintaining appropriate oxygen saturations on assist control mode of mechanical ventilation with an FiO2 requirement of 25%. The patient is currently sedated on Precedex and fentanyl. She is alert and able to follow simple commands. Nursing staff did report thick secretions from her endotracheal tube overnight. She is currently documented to be overall net -1 L for the hospitalization. She remains on empiric antimicrobials, Pepcid and IV steroids. Labs this morning are unremarkable. The patient was able to be placed on a spontaneous breathing trial this morning, which she tolerated. She was also noted to have a cuff leak. Despite this, the patient was able to communicate to me via writing and indicated that she did not wish to be extubated, as she was concerned that the same thing would happen again and was adamant that she be transferred to a tertiary care facility. I explained to the patient that she is on a list for a bed at [facility], but one is not yet available. Objective Data Objective Data The patient's most recent lab work, culture data and imaging studies have all been personally reviewed. Rapid coronavirus antigen testing was negative. Sputum culture is pending. Vital Signs: Vital Signs Temp Pulse Resp BP Pulse Ox 98 F 58 L 16 131/78 H 94 05/31/21 04:00 05/31/21 05:00 05/31/21 05:00 05/31/21 05:00 05/31/21 05:00 Oxygen Delivery Method Mechanical Ventilator Weight: 118.388 kg Body Mass Index (BMI) 47.0 Intake & Output: Intake and Output for Last 24 Hours 05/29/21 05/30/21 05/31/21 23:59 23:59 23:59 Intake Total 42.81 / 42.81 705.90 / 736.88 288.35 / 288.35 Output Total 975 / 975 1050 / 1050 Balance 42.81 / 42.81 -269.10 / -238.12 -761.65 / -761.65 Lab / Micro Data Attestation: I reviewed the patient's lab results. Result Diagrams: 05/31/21 04:00 05/31/21 04:00 Labs: Laboratory Results - last 24 hr 05/31/21 04:00: WBC 10.2, RBC 4.63, Hgb 11.3 L, Hct 36.8 L, MCV 79.5 L, MCH 24.4 L, MCHC 30.7 L, RDW Std Deviation 43.4, RDW Coeff of Anastacio 16.4 H, Plt Count 212, MPV 9.9, Immature Gran % (Auto) 0.500, Neut % (Auto) 87.2 H, Lymph % (Auto) 8.8 L, [place] % (Auto) 3.4, Eos % (Auto) 0.0, Baso % (Auto) 0.1, Absolute Neuts (auto) 8.9 H, Absolute Lymphs (auto) 0.90, Nucleated RBC % 0 05/31/21 04:00: Sodium 136, Potassium 4.4, Chloride 104, Carbon Dioxide 26.0, Anion Gap 6, BUN 14, Creatinine 0.82, Estim Creat Clear Calc 90.53, Est GFR (MDRD) Af Amer 113, Est GFR (MDRD) Non-Af 93, BUN/Creatinine Ratio 17.0, Glucose 179 H, Calcium 8.7 Micro: Microbiology 05/30/21 13:40 Sputum, Induced/Lukens Gram Stain - Preliminary 05/29/21 21:40 Nasal Secretion SARS-CoV-2 Antigen (Rapid) - Final Radiography Diagnostic Testing: Radiology Impression Chest X-Ray 05/30/21 16:33 IMPRESSION: Diminished inspiratory effort and mild bibasilar atelectasis. Central line placement with tip in distal superior vena cava. No evidence of pneumothorax Electronically Signed: Trip Castro MD at 17:47 EDT , Service support , Physical Exam Const alert and no apparent distress General Appearance: cooperative, intubated and patient mechanically ventilated Nutritional Appearance: morbidly obese HEENT normocephalic and head/scalp atraumatic Mouth: endotracheal tube in place and OG tube in place Eyes Eyes Narrative: Right periorbital swelling Neck supple General: trachea midline Chest inspection of chest normal Resp Auscultation: diminished lung sounds; Negative for rales, rhonchi or wheezes Cardio regular rate and regular rhythm GI normal to inspection, nondistended, normoactive bowel sounds Extremity no clubbing, cyanosis or edema Skin no rashes or lesions noted Neuro Neuro Narrative: Alert and able to follow commands. Sensorium / Orientation: sedated on vent Charges/Coding Procedures Hospitalists Procedures: 80546 Critial Care 1st Hr
--- NOTE | 2021-05-31 06:30 | NURSING ---
Pt placed on breathing trial by PSN.
[2021-05-31] MEDS: Ipratropium/Albuterol Sulfate 3 ML AMPUL.NEB INHALATION ×4 (06:34→19:17)
--- NOTE | 2021-05-31 07:01 | NURSING ---
Pt with light on, pt typing message on phone, states she's requesting to go to another hospital because we are not treating her correctly, she wants to stay on the ventilator for another couple days.
[2021-05-31] MEDS: Enoxaparin 40 MG/0.4 ML Syringe SC (09:20)
[2021-05-31] MEDS: Chlorhexidine 15 ML PO ×2 (09:21→22:25)
[2021-05-31] MEDS: Famotidine 20 MG Tablet 40 MG PO (09:21)
--- NOTE | 2021-05-31 09:53 | PN.HOSP_ITS ---
Subjective Subjective Patient seen and examined. She remains intubated and sedated. RASS score is 0. SHe was able to answer a few questions with nodding or shaking her head. She denied any pain and review of systems was otherwise negative. SHe is awaiting transfer to [facility]. Objective Data Objective Data Vital Signs: Vital Signs Temp Pulse Resp BP Pulse Ox 98.1 F 51 L 17 124/78 H 95 05/31/21 08:00 05/31/21 09:00 05/31/21 09:00 05/31/21 09:00 05/31/21 09:00 Oxygen Delivery Method Mechanical Ventilator Weight: 259 lb 11.272 oz Body Mass Index (BMI) 47.0 Intake & Output: Intake and Output for Last 24 Hours 05/29/21 05/30/21 05/31/21 23:59 23:59 23:59 Intake Total 42.81 / 42.81 705.90 / 736.88 467.14 / 467.14 Output Total 975 / 975 1250 / 1250 Balance 42.81 / 42.81 -269.10 / -238.12 -782.86 / -782.86 Lab / Micro Data Result Diagrams: 05/31/21 04:00 05/31/21 04:00 Labs: Laboratory Results - last 24 hr 05/31/21 04:00: WBC 10.2, RBC 4.63, Hgb 11.3 L, Hct 36.8 L, MCV 79.5 L, MCH 24.4 L, MCHC 30.7 L, RDW Std Deviation 43.4, RDW Coeff of Anastacio 16.4 H, Plt Count 212, MPV 9.9, Immature Gran % (Auto) 0.500, Neut % (Auto) 87.2 H, Lymph % (Auto) 8.8 L, [place] % (Auto) 3.4, Eos % (Auto) 0.0, Baso % (Auto) 0.1, Absolute Neuts (auto) 8.9 H, Absolute Lymphs (auto) 0.90, Nucleated RBC % 0 05/31/21 04:00: Sodium 136, Potassium 4.4, Chloride 104, Carbon Dioxide 26.0, Anion Gap 6, BUN 14, Creatinine 0.82, Estim Creat Clear Calc 90.53, Est GFR (MDRD) Af Amer 113, Est GFR (MDRD) Non-Af 93, BUN/Creatinine Ratio 17.0, Glucose 179 H, Calcium 8.7 Micro: Microbiology 05/30/21 13:40 Sputum, Induced/Lukens Gram Stain - Preliminary 05/29/21 21:40 Nasal Secretion SARS-CoV-2 Antigen (Rapid) - Final Radiography Diagnostic Testing: Radiology Impression Chest X-Ray 05/30/21 16:33 IMPRESSION: Diminished inspiratory effort and mild bibasilar atelectasis. Central line placement with tip in distal superior vena cava. No evidence of pneumothorax Electronically Signed: Trip Castro MD at 17:47 EDT , Service support , Physical Exam Const Constitutional Narrative: morbidly obese, intubated, sedated. HEENT normocephalic and head/scalp atraumatic Head and Scalp: normocephalic Eyes Eyes Narrative: has right eye periorbital erythema and edema, which appears to be improving; able to open right eye slightly Neck no lymphadenopathy and supple Resp Resp Narrative: intubated, diminished breath sounds bibasally, no wheezes or crackles. Cardio S1 normal heart sound, S2 normal heart sound and no murmurs Cardio Narrative: tachycardic GI normal to inspection, nondistended, normoactive bowel sounds, soft to palpation and non-tender Extremity normal to inspection, full ROM and no clubbing, cyanosis or edema Peripheral Pulses: Yes pulses 2+ throughout Skin no rashes or lesions noted Neuro Neuro Narrative: intubated, on precedex, RASS score is 0 Assessment & Plan Assessment/Plan (1) Acute respiratory failure: (2) Subcutaneous emphysema: (3) Periorbital edema of right eye: PLAN: #Acute hypoxic respiratory failure due to subcutaneous emphysema * CT chest showed extensive subcutaneous emphysema in the upper chest and neck, as well as bilateral lung base infiltrates and small pneumoediastium * remains intubated * on precedex for sedation * critical care on board * breathing treatment with bronchodilators * on IV zosyn. Sputum culture pending. * on IV solumedrol also * * #Subcutaneous emphysema and pneumomediastinum: Management as above. Etiology is unclear. #Right periorbital cellulitis * Recently had an eye procedure by her medication reconciliation technician. * On iV zosyn. * swelling is improving. * #Bradycardia * HR is 49 today. Probably due to sedation * expect to improve as sedative wears off * #Super morbid obesity: Complicates acute care, prognosis and expected recovery. #ADHD and depression: * Meds on hold as she is currently intubated and sedated. * Usually on bupropion, buspirone and Adderall as well as escitalopram at home. GI prophylaxis: Famotidine DVT prophylaxis: Lovenox Disposition: awaiting transfer to [facility]. Charges/Coding Visit Charges Inpatient E&M: 10876 [facility] Hosp L3
[2021-05-31] MEDS: Vital High Protein 1,000 ML 65 ML GT (13:30)
--- NOTE | 2021-05-31 15:44 | CM.ED ---
SW Note REJI spoke to KAMERON Russ CM advised that the plan is to transfer to [facility]. Patient will not be extubated today per staff. Plan: Transfer to [facility] Heidi ESPINOZA
--- NOTE | 2021-05-31 18:04 | PHA.PHARE_ITS ---
Consult Pharmacy has been consulted to manage selected antiobiotic: Vancomycin Type of Consult: New start Labs: Sodium 136 mmol/L (136-145) 05/31/21 04:00 Potassium 4.4 mmol/L (3.5-5.1) 05/31/21 04:00 Chloride 104 mmol/L (98-107) 05/31/21 04:00 Carbon Dioxide 26.0 mmol/L (21.0-32.0) 05/31/21 04:00 Anion Gap 6 (5-15) 05/31/21 04:00 BUN 14 mg/dL (7-18) 05/31/21 04:00 Creatinine 0.82 mg/dL (0.55-1.02) 05/31/21 04:00 Est GFR (MDRD) Af Amer 113 mL/min (>60) 05/31/21 04:00 Est GFR (MDRD) Non-Af 93 mL/min (>60) 05/31/21 04:00 BUN/Creatinine Ratio 17.0 RATIO (10-20) 05/31/21 04:00 Glucose 179 mg/dL (74-106) H 05/31/21 04:00 Microbiology: Microbiology 05/30/21 13:40 Sputum, Induced/Lukens Gram Stain - Final 05/30/21 13:40 Sputum, Induced/Lukens Respiratory Culture - Preliminary Staphylococcus aureus 05/29/21 21:40 Nasal Secretion SARS-CoV-2 Antigen (Rapid) - Final Weight used for dosin.8 kg Estimated Creatinine Clearance: 135ML/MIN Goal Trough: 15-20 mcg/mL Pharmacy Plan for Drug Dosing: Give loading dose (25mg/kg) of 2000mg IV x1, then continue with 1500mg IV q8h per [facility] dosing protocol. Will check a vanc trough before the 4th total dose tomorrow. The patient's CrCl of 135ml/min was calculated using an adjusted body weight of 78.6kg. Pharmacy Service will continue to monitor and adjust dosing as required. Follow-Up Labs: Trough Vancomycin Labs to be done on [date and time ordered]: 06/01/21 17:30
[2021-05-31] MEDS: CLARIFY ORDER 1 EACH NOTE (20:45)
[2021-05-31] MEDS: Petrolatum,White 3.75GM OPTH.TUBE 1 APPLIC OPHTHALMIC (22:24)
[2021-05-31] MEDS: BRIMONIDINE 0.2% 5ML BOTTLE 1 DRP RIGHT EYE (22:24)
[2021-05-31] MEDS: DiphenhydrAMINE 50 MG/ML Syringe 25 MG IV (22:26)
[2021-06-01] VITALS (32 sets, daily range): BP systolic 88–157; BP diastolic 46–83; PULSE 43–132; RESP 14–28; TEMP 36.2–36.8; O2SAT 92–100
[2021-06-01] MEDS: 0.9% Saline Lock 10 ML Syringe IV (00:14)
[2021-06-01 04:46] LABS: Absolute Lymphocyte Count 1.29 X10^3/uL (0.83-4.51); Absolute Neutrophil Count 8.9 X10^3/uL (2.0-7.7); Basophil# 0.01 X10^3/uL; Basophil% 0.1 % (0-1); Hematocrit 35.8 % (37-47); Lymphocyte # 1.29 X10^3/ul (0.83-4.51); Mean Corp Hgb Conc 30.7 g/dL (32-36); Mean Corpuscular Hgb 24.7 pg (27.0-32.0); Mean Corpuscular Volume 80.3 fL (81-99); Mean Platelet Vol. 10.2 fl (6.2-12.0); Monocyte% 4.7 % (0-10); NRBC Flagged by Analyzer 0 % (0-5); Neutrophil # 8.88 X10^3/uL (2.7-7.7); Neutrophil % 82.5 % (47-70); Platelet Count 213 K/mm3 (150-450); RBC Distribution Width CV 16.6 % (11.6-14.6); RBC Distribution Width SD 44.6 fl (35.1-43.9); Red Blood Count 4.46 M/mm3 (4.2-5.4); White Blood Count 10.8 K/mm3 (4.4-11.0)
[2021-06-01 05:11] LABS: Anion Gap 8 (5-15); BUN 15 mg/dL (7-18); BUN/Creat Ratio 18.2 RATIO (10-20); Calcium,Total 8.4 mg/dL (8.5-10.1); Chloride 105 mmol/L (98-107); Creatinine, Serum 0.83 mg/dL (0.55-1.02); EST Glomerular Filtration Rate 93 mL/min (>60); Est Glom Filt Rate - Afr Amer 112 mL/min (>60); Estimated Creatinine Clearance 89.44 ml/min; Glucose 151 mg/dL (74-106); Potassium 4.1 mmol/L (3.5-5.1); Sodium Level 138 mmol/L (136-145)
--- NOTE | 2021-06-01 05:30 | PCM.PN.INT ---
Assessment & Plan Assessment/Plan (1) Acute respiratory failure: PLAN: RECOMMENDATIONS: 1. Proceed with extubation this morning. 2. Once extubated, wean supplemental oxygen to maintain saturations at or above 90%. 3. Perform bedside swallow evaluation and advance diet accordingly. 4. Will wean Solu-Medrol today. Continue Pepcid for today. 5. Continue broad-spectrum antimicrobials, pending finalized culture results. 6. Encourage incentive spirometer use and mobilize patient as tolerated. IMPRESSIONS: 1. Acute respiratory failure The patient was intubated in the emergency department over concerns for airway protection. Her ventilator requirements are minimal. Arterial blood gases appropriate. The patient was initiated on antimicrobials, over concerns for a potential healthcare associated pneumonia given basilar consolidations on chest imaging. Sputum is currently growing staph aureus. The patient remains on appropriate antimicrobials, while awaiting finalized sensitivities. The patient was also continued on Pepcid and Solu-Medrol, given stridor noted by the patient in the emergency department. She did pass her spontaneous breathing trial this morning with a positive cuff leak. Therefore, we will proceed with extubation. Once extubated, wean supplemental oxygen as tolerated to maintain saturations at or above 90%. 2. Pneumomediastinum/subcutaneous emphysema Unclear precipitating etiology. Continue current supportive measures. 3. Morbid obesity/underlying psychiatric comorbidities/ADHD/GERD Complicates care, management, recovery and prognosis. Continue home medications as indicated. TIME: 32 minutes of critical care time, independent of procedures, was spent addressing the patient's acute respiratory failure, pneumomediastinum/subcutaneous emphysema, review of all data and collaboration with the care team. ([id number]) Subjective Subjective The patient was seen and examined at the bedside this morning. Events from the last 24 hours have been reviewed. The patient is currently afebrile, hemodynamically stable and maintaining appropriate oxygen saturations on assist control mode of mechanical ventilation with an FiO2 requirement of 21%. The patient is currently on a spontaneous breathing trial and doing quite well. No significant secretion production has been noted. The patient did have a cuff leak noted this morning. She is alert and following commands appropriately. She is currently documented to be overall net -500 mL for the hospital admission. She remains on empiric antimicrobials, Pepcid and IV steroids. Labs this morning are unremarkable. Although the plan was for the patient be transferred to [facility], per nursing report, because the patient was admitted to the hospital and did not remain boarded in the emergency department, [facility] is now apparently refusing the transfer. Following my evaluation of the patient this morning, she was successfully extubated to nasal cannula supplemental oxygen. Objective Data Objective Data The patient's most recent lab work, culture data and imaging studies have all been personally reviewed. Rapid coronavirus antigen testing was negative. Sputum culture is currently growing staph aureus. Sensitivities are pending. Vital Signs: Vital Signs Temp Pulse Resp BP Pulse Ox 98.2 F 62 17 111/73 92 06/01/21 04:00 06/01/21 05:03 06/01/21 05:06 06/01/21 04:00 06/01/21 05:03 Oxygen Delivery Method Mechanical Ventilator Weight: 118.2 kg Body Mass Index (BMI) 47.0 Intake & Output: Intake and Output for Last 24 Hours 05/30/21 05/31/21 06/01/21 23:59 23:59 23:59 Intake Total 705.90 / 736.88 1976.16 / 2096.26 1276.76 / 1276.76 Output Total 975 / 975 3550 / 3550 Balance -269.10 / -238.12 -1573.84 / -1453.74 1276.76 / 1276.76 Lab / Micro Data Attestation: I reviewed the patient's lab results. Result Diagrams: 06/01/21 04:40 06/01/21 04:40 Labs: Laboratory Results - last 24 hr 06/01/21 04:40: WBC 10.8, RBC 4.46, Hgb 11.0 L, Hct 35.8 L, MCV 80.3 L, MCH 24.7 L, MCHC 30.7 L, RDW Std Deviation 44.6 H, RDW Coeff of Anastacio 16.6 H, Plt Count 213, MPV 10.2, Immature Gran % (Auto) 0.700, Neut % (Auto) 82.5 H, Lymph % (Auto) 12.0 L, [place] % (Auto) 4.7, Eos % (Auto) 0.0, Baso % (Auto) 0.1, Absolute Neuts (auto) 8.9 H, Absolute Lymphs (auto) 1.29, Nucleated RBC % 0 06/01/21 04:40: Sodium 138, Potassium 4.1, Chloride 105, Carbon Dioxide 25.0, Anion Gap 8, BUN 15, Creatinine 0.83, Estim Creat Clear Calc 89.44, Est GFR (MDRD) Af Amer 112, Est GFR (MDRD) Non-Af 93, BUN/Creatinine Ratio 18.2, Glucose 151 H, Calcium 8.4 L Micro: Microbiology 05/30/21 13:40 Sputum, Induced/Lukens Gram Stain - Final 05/30/21 13:40 Sputum, Induced/Lukens Respiratory Culture - Preliminary Staphylococcus aureus 05/29/21 21:40 Nasal Secretion SARS-CoV-2 Antigen (Rapid) - Final Physical Exam Const alert and no apparent distress General Appearance: cooperative, intubated and patient mechanically ventilated Exam Limitations: no limitations Nutritional Appearance: morbidly obese HEENT normocephalic and head/scalp atraumatic Mouth: endotracheal tube in place and OG tube in place Eyes Eyes Narrative: Right periorbital swelling Neck supple General: trachea midline Chest inspection of chest normal Resp Auscultation: diminished lung sounds; Negative for rales, rhonchi or wheezes Cardio regular rate and regular rhythm GI normal to inspection, nondistended, normoactive bowel sounds Extremity no clubbing, cyanosis or edema Skin no rashes or lesions noted Neuro no focal motor deficits Neuro Narrative: Alert and able to follow commands. Charges/Coding Procedures Hospitalists Procedures: [id number] Critial Care 1st Hr
[2021-06-01] MEDS: Petrolatum,White 3.75GM OPTH.TUBE 1 APPLIC OPHTHALMIC ×3 (06:03→23:04)
[2021-06-01] MEDS: BRIMONIDINE 0.2% 5ML BOTTLE 1 DRP RIGHT EYE ×3 (06:03→22:59)
[2021-06-01] MEDS: Ipratropium/Albuterol Sulfate 3 ML AMPUL.NEB INHALATION ×2 (06:24→10:30)
[2021-06-01] MEDS: Enoxaparin 40 MG/0.4 ML Syringe SC (09:22)
[2021-06-01] MEDS: LORazepam 0.5 MG Tablet PO ×2 (10:59→19:32)
[2021-06-01] MEDS: Pantoprazole Sodium 40 MG Tablet PO ×2 (10:59→23:07)
[2021-06-01] MEDS: Famotidine 20 MG Tablet 40 MG PO (10:59)
[2021-06-01] MEDS: Loratadine 10 MG Tablet PO (10:59)
[2021-06-01] MEDS: Magnesium Chloride 64 MG Delay Rel.Tablet 128 MG PO ×2 (11:00→23:05)
[2021-06-01] MEDS: Docusate Sodium 100 MG Capsule 200 MG PO ×2 (11:02→23:02)
[2021-06-01] MEDS: Chlorhexidine 15 ML PO (11:02)
[2021-06-01] MEDS: busPIRone 15 MG TABLET PO ×2 (12:48→23:02)
[2021-06-01] MEDS: Gabapentin 300 MG Capsule PO ×2 (12:48→23:07)
--- NOTE | 2021-06-01 14:54 | PN.HOSP_ITS ---
Subjective Subjective Patient seen and examined. She was extubated this morning. She was sitting up in a chair and had no active complaints. The swelling of her eyes had improved markedly. Ophthalmology reviewed her yesterday and measured her eye pressures which were normal. Bacitracin eye ointment was also ordered for her. Revew of systems otherwise negative. She is tachycardic this morning and also tachypneic. Objective Data Objective Data Vital Signs: Vital Signs Temp Pulse Resp BP Pulse Ox 97.1 F L 129 H 28 H 88/59 L 97 06/01/21 12:00 06/01/21 14:00 06/01/21 14:00 06/01/21 14:00 06/01/21 14:00 Oxygen Flow Rate (L/min) 1 Oxygen Delivery Method Room Air Weight: 260 lb 9.382 oz Body Mass Index (BMI) 47.0 Intake & Output: Intake and Output for Last 24 Hours 05/30/21 05/31/21 06/01/21 23:59 23:59 23:59 Intake Total 705.90 / 736.88 1976.16 / 2096.26 1552.26 / 1552.26 Output Total 975 / 975 3550 / 3550 1550 / 1550 Balance -269.10 / -238.12 -1573.84 / -1453.74 2.26 / 2.26 Lab / Micro Data Result Diagrams: 06/01/21 04:40 06/01/21 04:40 Labs: Laboratory Results - last 24 hr 06/01/21 04:40: WBC 10.8, RBC 4.46, Hgb 11.0 L, Hct 35.8 L, MCV 80.3 L, MCH 24.7 L, MCHC 30.7 L, RDW Std Deviation 44.6 H, RDW Coeff of Anastacio 16.6 H, Plt Count 213, MPV 10.2, Immature Gran % (Auto) 0.700, Neut % (Auto) 82.5 H, Lymph % (Aut o) 12.0 L, [place] % (Auto) 4.7, Eos % (Auto) 0.0, Baso % (Auto) 0.1, Absolute N euts (auto) 8.9 H, Absolute Lymphs (auto) 1.29, Nucleated RBC % 0 06/01/21 04:40: Sodium 138, Potassium 4.1, Chloride 105, Carbon Dioxide 25.0, Anion Gap 8, BUN 15, Creatinine 0.83, Estim Creat Clear Calc 89.44, Est GFR (MDRD) Af Amer 112, Est GFR (MDRD) Non-Af 93, BUN/Creatinine Ratio 18.2, Glucose 151 H, Calcium 8.4 L Micro: Microbiology 05/30/21 13:40 Sputum, Induced/Lukens Gram Stain - Final 05/30/21 13:40 Sputum, Induced/Lukens Respiratory Culture - Final Meth. resistant Staph. aureus 05/29/21 21:40 Nasal Secretion SARS-CoV-2 Antigen (Rapid) - Final Physical Exam Const alert, oriented x3 and no apparent distress Exam Limitations: no limitations HEENT head/scalp atraumatic and moist oral mucous membranes Head and Scalp: normocephalic Eyes PERRL Eyes Narrative: periorbital edema has improved markedly Neck no lymphadenopathy and supple Resp normal respiratory effort, no retractions, no use of accessory muscles and clear to auscultation bilaterally Resp Narrative: tachypneic, on room air. Cardio S1 normal heart sound, S2 normal heart sound and no murmurs Cardio Narrative: tachypneic. GI normal to inspection, nondistended, normoactive bowel sounds, soft to palpation, non-tender and non-distended Extremity normal to inspection, full ROM and no clubbing, cyanosis or edema Peripheral Pulses: Yes pulses 2+ throughout Skin no rashes or lesions noted Neuro oriented x3, CN's II-XII intact bilaterally and moves all extremities Sensorium / Orientation: awake and alert Psych affect normal Assessment & Plan Assessment/Plan (1) Acute respiratory failure: (2) Subcutaneous emphysema: (3) Periorbital edema of right eye: PLAN: #Acute hypoxic respiratory failure due to subcutaneous emphysema * patient extubated. On room air. * on IV zosyn and IV solumedrol * breathing treatment with bronchodilators. * * #Subcutaneous emphysema and pneumomediastinum: extubated today. Etiology is unclear. #Right periorbital cellulitis * ophthalmology reviewed patient yesterday. Eye pressures checked because patient was concerned about her eye pressure, and it was normal * bacitracin eye ointment tid. * swelling has improved markedly. * #Bradycardia * resolved. * #Super morbid obesity: Complicates acute care, prognosis and expected recovery. #ADHD and depression: * on bupropion, buspirone and Adderall as well as escitalopram, which has been resumed today GI prophylaxis: Famotidine DVT prophylaxis: Lovenox Disposition:transfer to [facility] cancelled as [facility] said they had much sicker patients waiting, and she was also improving. Charges/Coding Visit Charges Inpatient E&M: 51113 Subs Hosp L2
--- NOTE | 2021-06-01 19:13 | NURSING ---
zackary was in closet all day when mother was here for visit she removed it from closet and put it @ bedside
--- NOTE | 2021-06-01 19:48 | NURSING ---
Pt crying upon entering room and shaking foot. Elevated anxiety. Provided ativan 0.5mg PO to aide pt to relax. Pt has belongings on bedside table. Advised pt of possibility of being moved from ICU to lesser acute floor. Pt states understanding of plan, and in agreement. Dr. Reese paged for orders.
--- NOTE | 2021-06-01 19:58 | NURSING ---
Room 112 provided by supervisor shuttle veneering. Pt belongings and medications packed. Pt will travel on security monitor.
--- NOTE | 2021-06-01 20:21 | NURSING ---
Room correction to 121. Pt off floor at 20:15.
[2021-06-01] MEDS: traZODone 100 MG Tablet PO (23:03)
[2021-06-01] MEDS: Escitalopram Oxalate 20 MG Tablet PO (23:05)
[2021-06-01] MEDS: MELATONIN 10 MG TABLET PO (23:06)
[2021-06-01] MEDS: hydrOXYzine PAM 25 MG Capsule 50 MG PO (23:08)
[2021-06-01] MEDS: buPROPion (XL) 300 MG TABLET.XL PO (23:08)
[2021-06-02] VITALS (8 sets, daily range): BP systolic 105–129; BP diastolic 61–91; PULSE 18–114; RESP 16–18; TEMP 36.7–37; O2SAT 93–99
--- NOTE | 2021-06-02 01:07 | NURSING ---
Per MD recommendation, this RN and chargemaster specialist looked through pt belongings with pt to look for any needles d/t hx of injecting air into body and sudden eye swelling. Pt compliant and agreeable to this. No needles found. Pt also instructed to keep HOB up and ice pack on eye per MD recommendation. Pt not complying with these recommendations.
[2021-06-02 02:28] LABS: Absolute Lymphocyte Count 1.37 X10^3/uL (0.83-4.51); Basophil# 0.03 X10^3/uL; Basophil% 0.3 % (0-1); Eosinophil# 0.02 X10^3/uL; Eosinophils% 0.2 % (0-5); Hematocrit 38.3 % (37-47); Hemoglobin 12.1 g/dL (12.0-15.0); Lymphocyte # 1.37 X10^3/ul (0.83-4.51); Lymphocyte % 12.1 % (19-41); Mean Corp Hgb Conc 31.6 g/dL (32-36); Mean Corpuscular Hgb 25.3 pg (27.0-32.0); Monocyte# 0.77 X10^3/uL; Monocyte% 6.8 % (0-10); NRBC Flagged by Analyzer 0.2 % (0-5); Neutrophil # 9.03 X10^3/uL (2.7-7.7); Neutrophil % 79.8 % (47-70); Platelet Count 264 K/mm3 (150-450); RBC Distribution Width CV 17.3 % (11.6-14.6); RBC Distribution Width SD 46.9 fl (35.1-43.9); Red Blood Count 4.79 M/mm3 (4.2-5.4); White Blood Count 11.3 K/mm3 (4.4-11.0)
[2021-06-02 02:39] LABS: Anion Gap 9 (5-15); BUN 21 mg/dL (7-18); BUN/Creat Ratio 22.1 RATIO (10-20); Calcium,Total 8.6 mg/dL (8.5-10.1); Chloride 111 mmol/L (98-107); Creatinine, Serum 0.95 mg/dL (0.55-1.02); EST Glomerular Filtration Rate 79 mL/min (>60); Est Glom Filt Rate - Afr Amer 96 mL/min (>60); Estimated Creatinine Clearance 78.14 ml/min; Glucose 149 mg/dL (74-106); Potassium 3.7 mmol/L (3.5-5.1); Sodium Level 142 mmol/L (136-145)
[2021-06-02 02:41] LABS: Vancomycin, Trough Level 30.2 ug/mL (5.0-15.0)
--- NOTE | 2021-06-02 02:47 | PCM.RX.CS ---
Consult Pharmacy has been consulted to manage selected antiobiotic: Vancomycin Type of Consult: Follow-up Labs: Sodium 142 mmol/L (136-145) 06/02/21 02:00 Potassium 3.7 mmol/L (3.5-5.1) 06/02/21 02:00 Chloride 111 mmol/L (98-107) H 06/02/21 02:00 Carbon Dioxide 22.0 mmol/L (21.0-32.0) 06/02/21 02:00 Anion Gap 9 (5-15) 06/02/21 02:00 BUN 21 mg/dL (7-18) H 06/02/21 02:00 Creatinine 0.95 mg/dL (0.55-1.02) 06/02/21 02:00 Est GFR (MDRD) Af Amer 96 mL/min (>60) 06/02/21 02:00 Est GFR (MDRD) Non-Af 79 mL/min (>60) 06/02/21 02:00 BUN/Creatinine Ratio 22.1 RATIO (10-20) H 06/02/21 02:00 Glucose 149 mg/dL (74-106) H 06/02/21 02:00 Vancomycin Trough 30.2 ug/mL (5.0-15.0) H 06/02/21 02:00 Microbiology: Microbiology 05/30/21 13:40 Sputum, Induced/Lukens Gram Stain - Final 05/30/21 13:40 Sputum, Induced/Lukens Respiratory Culture - Final Meth. resistant Staph. aureus 05/29/21 21:40 Nasal Secretion SARS-CoV-2 Antigen (Rapid) - Final Goal Trough: 15-20 mcg/mL Pharmacy Plan for Drug Dosing: Pharmacy Service will continue to monitor and adjust dosing as required. TROUGH 30.2 AT 7HRS. HOLD CURRENT DOSE AND DRAW RANDOM LEVEL IN 12 HOURS Follow-Up Labs: Trough Vancomycin Labs to be done on [date and time ordered]: 06/02 @ 1400 RANDOM
[2021-06-02] MEDS: BRIMONIDINE 0.2% 5ML BOTTLE 1 DRP RIGHT EYE (05:35)
[2021-06-02] MEDS: Gabapentin 300 MG Capsule PO (05:36)
[2021-06-02] MEDS: busPIRone 15 MG TABLET PO (05:36)
[2021-06-02] MEDS: Petrolatum,White 3.75GM OPTH.TUBE 1 APPLIC OPHTHALMIC (05:36)
[2021-06-02] MEDS: Ipratropium/Albuterol Sulfate 3 ML AMPUL.NEB INHALATION ×2 (07:21→10:41)
--- NOTE | 2021-06-02 08:02 | PN.CC_ITS ---
Assessment & Plan Assessment/Plan (1) Acute respiratory failure: PLAN: RECOMMENDATIONS: 1. Continue conservative therapy for subcutaneous emphysema 2. Walking oximetry prior to discharge 3. Perform bedside swallow evaluation and advance diet accordingly. 4. Transition to prednisone and wean over 12 to 14 days. Continue Pepcid for today. 5. Continue broad-spectrum antimicrobials, pending finalized culture results. 6. Encourage incentive spirometer use and mobilize patient as tolerated. 7. Follow-up with [facility] as an outpatient 8. Hemodynamically stable on room air. Will sign off from a critical care/respiratory perspective IMPRESSIONS: 1. Acute respiratory failure The patient was intubated in the emergency department over concerns for airway protection. Her ventilator requirements are minimal. Arterial blood gases appropriate. The patient was initiated on antimicrobials, over concerns for a p otential healthcare associated pneumonia given basilar consolidations on chest imaging. Sputum is currently growing MRSA. Okay to wean antimicrobial spectrum. The patient was also continued on Pepcid and Solu-Medrol, given stridor noted by the patient in the emergency department. Patient can be transitioned to prednisone and weaned over 12 to 14 days. No stridor noted on exam. Patient should have a walking oximetry prior to discharge. Patient can follow-up with her physicians at [facility] at discharge. Will sign off from a critical care/pulmonary perspective. 2. Pneumomediastinum/subcutaneous emphysema Unclear precipitating etiology. Continue current supportive measures. 3. Morbid obesity/underlying psychiatric comorbidities/ADHD/GERD Complicates care, management, recovery and prognosis. Continue home medications as indicated. Subjective Subjective Patient did okay overnight. No hemodynamic instability was reported. Patient overall feels subjectively unchanged. Patient reports some minor dyspnea, but is stable on room air. Patient also reports some discomfort of her right eye. Objective Data Objective Data Vital Signs: Vital Signs Temp Pulse Resp BP Pulse Ox 36.7 C 95 16 105/61 96 06/02/21 02:35 06/02/21 07:21 06/02/21 07:21 06/02/21 02:35 06/02/21 07:21 Oxygen Flow Rate (L/min) 1 Oxygen Delivery Method Room Air Weight: 116.3 kg Body Mass Index (BMI) 47.0 Intake & Output: Intake and Output for Last 24 Hours 05/31/21 06/01/21 06/02/21 23:59 23:59 23:59 Intake Total 1976.16 / 6.26 2692.26 / 2932.26 290 / 290 Output Total 3550 / 3550 1550 / 1550 Balance -1573.84 / -1453.74 1142.26 / 1382.26 290 / 290 Lab / Micro Data Result Diagrams: 06/02/21 02:00 06/02/21 02:00 Labs: Laboratory Results - last 24 hr 06/02/21 02:00: WBC 11.3 H, RBC 4.79, Hgb 12.1, Hct 38.3, MCV 80.0 L, MCH 25.3 L , MCHC 31.6 L, RDW Std Deviation 46.9 H, RDW Coeff of Anastacio 17.3 H, Plt Count 264, MPV 10.0, Immature Gran % (Auto) 0.800, Neut % (Auto) 79.8 H, Lymph % (Auto) 12.1 L, Weld % (Auto) 6.8, Eos % (Auto) 0.2, Baso % (Auto) 0.3, Absolute Neuts (auto) 9.0 H, Absolute Lymphs (auto) 1.37, Nucleated RBC % 0.2 06/02/21 02:00: Sodium 142, Potassium 3.7, Chloride 111 H, Carbon Dioxide 22.0, Anion Gap 9, BUN 21 H, Creatinine 0.95, Estim Creat Clear Calc 78.14, Est GFR (MDRD) Af Amer 96, Est GFR (MDRD) Non-Af 79, BUN/Creatinine Ratio 22.1 H, Glucose 149 H, Calcium 8.6 06/02/21 02:00: Vancomycin Trough 30.2 H Micro: Microbiology 05/30/21 13:40 Sputum, Induced/Lukens Gram Stain - Final 05/30/21 13:40 Sputum, Induced/Lukens Respiratory Culture - Final Meth. resistant Staph. aureus 05/29/21 21:40 Nasal Secretion SARS-CoV-2 Antigen (Rapid) - Final Physical Exam Const alert, oriented x3 and no apparent distress General Appearance: cooperative Exam Limitations: no limitations Nutritional Appearance: morbidly obese HEENT normocephalic and head/scalp atraumatic HEENT Narrative: Subcu emphysema of the right eye noted Eyes Eyes Narrative: Right periorbital swelling Neck supple General: trachea midline Chest inspection of chest normal Resp Auscultation: diminished lung sounds; Negative for rales, rhonchi or wheezes Cardio regular rate and regular rhythm GI normal to inspection, nondistended, normoactive bowel sounds Extremity no clubbing, cyanosis or edema Skin no rashes or lesions noted Neuro no focal motor deficits Neuro Narrative: Alert and able to follow commands. Charges/Coding Visit Charges Inpatient E&M: 66298 Subs Hosp L2
--- NOTE | 2021-06-02 10:10 | CASEMGMT ---
RAUDEL MELO assessment: Face to Face with patient for initial transition planning/care coordination assessment. RAUDEL MELO introduced self and role at [facility], pt voices understanding and consents to assessment. Pt is sitting up in bed in no distress on room air. Pt is A/Ox4 and answers all questions appropriately. Care providers, pharmacy, and demographics verified. Presentation: pt brought in for resp distress and neck/facial swelling with crepitus Admitting dx: Subq emphysema PCP: [place] Specialists: Hugh, groover and turner at [facility]; Shaina, psych at [facility]; Sumit, therapist at [facility] Preferred Pharmacy: [facility] Insurance: [employer] Prescription Benefit: [email or web address] Living Will/HPOA: Pt states does not have LW/HPOA. LNOK: Ed/Graciela Wilson, parents Living Arrangements: Pt states lives with parents in 1 story home with no steps in and states no concerns at home. Pt is independent with ADL's. Transportation: Pt states does not drive but parents drive and states no transportation cocnerns. DME/HHC: Pt has the following DME: walker, w/c, and shower chair. Pt states no need for any further DME. Pt states no hx of SNF but has had HHC in the past. Pt states no concerns with going home at time of discharge. Pt is on disability. Pt states does not smoke cigarettes or drink ETOH. Pt states no further concerns/needs. CM to follow for any further discharge planning/needs. Advised pt to ask for CM if any further questions/concerns/needs arise, voices understanding. Pt Goal: Home Plan: Home w/ family [place] RAUDEL MELO
[2021-06-02] MEDS: Famotidine 20 MG Tablet 40 MG PO (10:37)
[2021-06-02] MEDS: Magnesium Chloride 64 MG Delay Rel.Tablet 128 MG PO (10:37)
[2021-06-02] MEDS: Docusate Sodium 100 MG Capsule 200 MG PO (10:37)
[2021-06-02] MEDS: Pantoprazole Sodium 40 MG Tablet PO (10:38)
[2021-06-02] MEDS: Loratadine 10 MG Tablet PO (10:38)
[2021-06-02] MEDS: hydrOXYzine PAM 25 MG Capsule 50 MG PO (10:38)
[2021-06-02] MEDS: Enoxaparin 40 MG/0.4 ML Syringe SC (10:38)
--- NOTE | 2021-06-02 11:09 | CASEMGMT ---
REJI reviewed patient's chart and noted she has many mental health diagnoses. REJI met with patient. Introduced self and role at [facility]. REJI spoke with patient about her mental health. She said it is being managed fairly well right now. She sees aKmala Arana at [facility] and she also sees a Psychiatrist at [facility]. She sees Kamala weekly and her Psychiatrist monthly. She declined offer for REJI to set up any appts. She is ready to be discharged and wants to follow up with her primary care doctor. She denied any further needs from REJI. Negra Chaudhari MSW GIOVANI
--- NOTE | 2021-06-02 11:30 | DS.PCM_ITS ---
Providers Date of Admission: 05/30/21 Primary Care Physician: Dr. Juancarlos Soriano MD Consultations 05/30/21 10:55 Consult: Makeup Editor / Pulmonary Medicine Routine Consulting Provider: Pulmonary Medicine ranulfo [place] Reason for Consult: subcutaneous emphysema, intubated for airway protection EMERGENT Consult: No Notified: Yes Date Notified: 05/30/21 Time Notified: 09:42 Method of Notification: informed by ED physician 05/31/21 16:59 Consult: Ophthamology Routine Consulting Provider: Oracio Sanchez Reason for Consult: right eye swelling, concern about increased pressure EMERGENT Consult: No MD Notified: Yes Date Notified: 05/31/21 Time Notified: 17:00 Method of Notification: Verbal Reason For Visit: SUBCUTANEOUS EMPHYSEMA Diagnosis Discharge Diagnosis (1) Acute respiratory failure: Status: Acute Code(s): J96.00 - Acute respiratory failure, unspecified whether with hypoxia or hypercapnia Medications at Discharge Home Medications bupropion HCl 300 mg PO QHS 11/11/16 docusate sodium [DOK] 200 mg PO BID 11/11/16 escitalopram oxalate 20 mg PO QHS 11/11/16 magnesium oxide 400 mg PO BID 11/11/16 melatonin 10 mg PO QHS 11/11/16 riboflavin (vitamin B2) 400 mg PO DAILY 05/26/19 albuterol sulfate 1 puff INHALATION Q4H PRN PRN 07/20/19 buspirone 15 mg PO TID 07/20/19 dextroamphetamine-amphetamine [Adderall] 20 mg PO DAILY 07/20/19 gabapentin 300 mg PO TID 07/20/19 omeprazole 40 mg PO BID 07/20/19 ondansetron HCl 8 mg PO PRN PRN 07/20/19 promethazine 25 mg PO PRN PRN 07/20/19 hydroxyzine HCl 50 mg PO BID 01/21/21 lorazepam 0.5 mg PO DAILY PRN 01/21/21 trazodone 100 mg PO QHS 03/02/21 Dulera 2 puff INHALATION BID 05/29/21 fexofenadine 60 mg PO BID 05/29/21 doxycycline hyclate 100 mg PO BID #14 tab 06/02/21 methylprednisolone [Medrol (Merritt)] See Taper PO UD #21 tab 06/02/21 Hospital Course Operations None Procedures None Summary of Care Provided Minutes Spent on Discharge: 45 Hospital Course: SAMEER MOORE, is a 20 F with an extensive PMH as outlined who presents via the ED on 05/29/2021 with a complaint of shortness of breath. History was newly gotten from ED doctor as patient was intubated at the time of my review. Patient has a history of subcutaneous emphysema with multiple visits and adjustment discharge from the [facility] 2 days prior to admission after 1 week stay. She came in this time with a complaint of progressively worsening swelling of the right eye and swelling around the anterior neck on the day of admission. She had previously seen ophthalmology in the office and had a lateral canthotomy on account of right eye swelling. Patient has had multiple intubations for recurrent subcutaneous emphysema. Patient complained of shortness of breath and difficulty swallowing and breathing. In the ED, due to concerns about airway protection, patient was emergently intubated. Plan was to transfer to [facility] and she had been accepted the left on account of no bed availability and patient b eing down in the ER for at least 14 hours, she was admitted to the medical ICU for management until she could be transferred. Critical care was consulted. SHe had sputum culture which grew MRSA. She was started on IV antimicrobials. She was also started on IV steroids. She gradually improved and was extubated to nasal canula; she was weaned off oxygen to room air. Patient and family were concerned about the her eye and felt her pressure was increased. Ophthalmology was consulted and she had her eye pressures checked, which were normal. She remained stable and was discharged home on 06/02/2021 and is to follow up with her PCp and transport corps officer as well as medical customer service representative. Of note, sputum culture MRSA so she was discharged on p.o. doxycycline to complete a 7-day course. Patient was seen and examined prior to discharge. She said she felt the vision in her right eye was gone but she wanted to follow-up with her own medical customer service representative. She had no other complaints and review of systems otherwise negative. Physical Exam Const alert, oriented x3 and no apparent distress General Appearance: cooperative, comfortable and well kempt Orientation / Consciousness: awake Exam Limitations: no limitations HEENT normocephalic, head/scalp atraumatic and moist oral mucous membranes Eyes PERRL Eyes Narrative: periorbital edema Neck no lymphadenopathy and supple Resp normal respiratory effort, no retractions, no use of accessory muscles and clear to auscultation bilaterally Resp Narrative: on room air. Cardio S1 normal heart sound, S2 normal heart sound and no murmurs GI normal to inspection, nondistended, normoactive bowel sounds, soft to palpation, non-tender and non-distended Extremity normal to inspection, full ROM and no clubbing, cyanosis or edema Skin no rashes or lesions noted Neuro oriented x3, CN's II-XII intact bilaterally and moves all extremities Sensorium / Orientation: awake and alert Psych affect normal Weight / BMI Weight Weight: 256 lb 6.362 oz Body Mass Index (BMI) 47.0 ABG / Lab / Microbiology Data Result Diagrams: 06/02/21 02:00 06/02/21 02:00 Laboratory: Laboratory Results - last 24 hr 06/02/21 02:00: WBC 11.3 H, RBC 4.79, Hgb 12.1, Hct 38.3, MCV 80.0 L, MCH 25.3 L , MCHC 31.6 L, RDW Std Deviation 46.9 H, RDW Coeff of Anastacio 17.3 H, Plt Count 264, MPV 10.0, Immature Gran % (Auto) 0.800, Neut % (Auto) 79.8 H, Lymph % (Auto) 12.1 L, [place] % (Auto) 6.8, Eos % (Auto) 0.2, Baso % (Auto) 0.3, Absolute Neuts (auto) 9.0 H, Absolute Lymphs (auto) 1.37, Nucleated RBC % 0.2 06/02/21 02:00: Sodium 142, Potassium 3.7, Chloride 111 H, Carbon Dioxide 22.0, Anion Gap 9, BUN 21 H, Creatinine 0.95, Estim Creat Clear Calc 78.14, Est GFR (MDRD) Af Amer 96, Est GFR (MDRD) Non-Af 79, BUN/Creatinine Ratio 22.1 H, Glucose 149 H, Calcium 8.6 06/02/21 02:00: Vancomycin Trough 30.2 H Microbiology: Microbiology 05/30/21 13:40 Sputum, Induced/Lukens Gram Stain - Final 05/30/21 13:40 Sputum, Induced/Lukens Respiratory Culture - Final Meth. resistant Staph. aureus 05/29/21 21:40 Nasal Secretion SARS-CoV-2 Antigen (Rapid) - Final D/C Instructions Discharge Diet: No restrictions Discharge Activity: Return to Normal Activity Weight Bearing Status: Weight bearing as tolerated Call your doctor if you observe: Fever of 101 or Higher, Shortness of breath, Dizziness, Fainting spells, Swelling in the ankles, Chest pain and Increased palpitations (irregular heartbeat) Meaningful Use Info Meaningful Use Diagnoses (Choose all that apply): None applicable Discharge Plan Admission Admit Date/Time: 05/30/21 09:39 Primary Reason for Your Visit: subcutaneous emphysema Attending Provider: Letty Meyer Primary Care Provider: Juancarlos Soriano Consulting Providers: Sonny Dunaway ; Oswaldo Kwan ; Mariama Burleson NP ; Oracio Sanchez Instructions Additional Instructions / Restrictions: follow up with medical customer service representative, and PCP as well as transport corps officer on outpatient basis. Discharge Orders/Prescriptions Prescriptions: New doxycycline hyclate 100 mg tablet 100 mg PO BID Qty: 14 RF: 0 methylprednisolone [Medrol (Merritt)] 4 mg tablets,dose pack See Taper mg PO UD Qty: 21 RF: 0 Continued bupropion HCl 150 MG tablet sustained-release 12 hr 300 mg PO QHS RF: 0 magnesium oxide 400 MG tablet 400 mg PO BID RF: 0 docusate sodium [DOK] 100 MG capsule 200 mg PO BID RF: 0 escitalopram oxalate 20 MG tablet 20 mg PO QHS RF: 0 melatonin 10 MG tablet 10 mg PO QHS RF: 0 riboflavin (vitamin B2) 400 MG tablet 400 mg PO DAILY RF: 0 buspirone 5 MG tablet 15 mg PO TID RF: 0 ondansetron HCl 8 MG tablet 8 mg PO PRN PRN (Reason: Nausea) RF: 0 dextroamphetamine-amphetamine [Adderall] 20 MG tablet 20 mg PO DAILY RF: 0 promethazine 25 MG tablet 25 mg PO PRN PRN (Reason: Vomiting) RF: 0 omeprazole 20 MG capsule 40 mg PO BID RF: 0 gabapentin 100 MG capsule 300 mg PO TID RF: 0 albuterol sulfate 1 PUFF inhaler 1 puff inhalation Q4H PRN PRN (Reason: Asthma) RF: 0 hydroxyzine HCl 50 mg Tablet 50 mg PO BID RF: 0 lorazepam 0.5 mg Tablet 0.5 mg PO DAILY PRN (Reason: Anxiety) RF: 0 trazodone 100 mg Tablet 100 mg PO QHS RF: 0 fexofenadine 30 mg Tablet 60 mg PO BID RF: 0 Dulera 200-5 mcg/actuation Hfa Aerosol Inhaler 2 puff INHALATION BID RF: 0 Referrals / Follow Up: Oswaldo Kwan DO [STAFF PHYSICIAN] - Within 2 Weeks Juancarlos Soriano MD [Primary Care Provider] - Within 2 Weeks Disposition Disposition (needs filled in before D/C Order can be placed): Home, Self Care Charges/Coding Visit Charges Inpatient E&M: 69409 Disch Hosp
--- NOTE | 2021-06-02 12:12 | CASEMGMT ---
Addendum entered by Veronica Smith 06/02/21 13:04: Pt does not qualify for home oxygen. Angie STARKS CM Original Note: This RN CM to room and pt voices no further questions/concerns/needs. Angie STARKS CM
--- NOTE | 2021-06-02 15:47 | NURSING ---
This RN reviewed all SN charting
--- NOTE | 2021-06-03 15:47 | CASEMGMT ---
JOESPH DC F/u Call: DC Date: 06/02/21 DC Diagnosis: Subcutaneous Emphysema DC Disposition: Home Lace/Strata: 21/11 Called patient listed cell phone and automatically forwarded to VM- VM unable to identify correct patient and therefore no VM was left. JOSEPH Up
== END 2021-06-02 13:32 | disposition home or self-care (01) | DRG 133 ==
LOC: ED 05-30 01:55 → ICU 05-30 09:54 → PCU 06-02 09:16 → ICU 06-03 08:41 → PCU 06-03 08:41
PROVIDERS: Admitting Provider Student in an Organized Health Care Education/Training Program; Emergency Provider Emergency Medicine; PCP Family Medicine; Visit Provider Student in an Organized Health Care Education/Training Program
DX: J96.00 Acute respiratory failure, unspecified whether with hypoxia or hypercapnia (principal); J98.2 Interstitial emphysema; Z68.42 Body mass index [BMI] 45.0-49.9, adult; E66.01 Morbid (severe) obesity due to excess calories; R00.1 Bradycardia, unspecified; L03.213 Periorbital cellulitis; F90.9 Attention-deficit hyperactivity disorder, unspecified type; F32.A Depression, unspecified; T42.75XA Adverse effect of unspecified antiepileptic and sedative-hypnotic drugs, initial encounter; A49.02 Methicillin resistant Staphylococcus aureus infection, unspecified site; Z79.899 Other long term (current) drug therapy
CPT/HCPCS: 31500; 31720; 36569; 36600; 51702; 70490; 71045; 71250; 80048; 80202; 82803; 85025; 85610; 85730; 87070; 87077; 87186; 87205; 87426; 92526; 92610; 94002; 94003; 94640; 94660; 97162; 97802; 99251; 99285; J7030; J7040; J7050; A4216; G0463; J3010; J3490

== ENCOUNTER 2021-10-10 11:39 | Outpatient (CLI) | payer MEDICAID, SELFPAY ==
[2021-10-10 11:50] LABS: Mucous, Urine 0 SEEN /hpf (<or=2+); Red Blood Cells-Urine 0 SEEN /hpf (0-5)
[2021-10-10 12:26] LABS: Color, Urine Yellow (Yellow); Glucose, Dipstick Normal (Normal); Hematocrit 44.2 % (37-47); Hemoglobin 14.6 g/dL (12.0-15.0); Ketone-Dipstick Negative (Negative); Leukocyte Esterase-Dipstick 25 /ul (Negative); Mean Corpuscular Hgb 27.3 pg (27.0-32.0); Mean Corpuscular Volume 82.6 fL (81-99); Mean Platelet Vol. 10.1 fl (6.2-12.0); Nitrite-Dipstick Negative (Negative); Occult Blood-Urine Negative /ul (Negative); Platelet Count 246 K/mm3 (150-450); Protein-Dipstick 15 mg/dl (Negative); RBC Distribution Width CV 14.1 % (11.6-14.6); RBC Distribution Width SD 41.6 fl (35.1-43.9); Red Blood Count 5.35 M/mm3 (4.2-5.4); Urine Bilirubin Dipstick Negative (Negative); Urine Clarity Sl. Cloudy (Clear); Urine Urobilinogen Normal (Normal); White Blood Count 7.4 K/mm3 (4.4-11.0)
[2021-10-10 12:34] LABS: Bacteria 1+ /hpf (None Seen); Squamous Epithelial Cells - UA 0-5 SEEN /hpf (5-10); White Blood Cells 0-5 SEEN /hpf (0-5)
[2021-10-10 13:13] LABS: Vitamin B12 211 pg/mL (211-911); Vitamin D,25 Hydroxy 10.6 ng/mL
[2021-10-10 13:25] LABS: AST(SGOT) 21 U/L (15-37); Alanine Aminotransfer ALT/SGPT 33 U/L (13-56); Albumin, Serum 3.5 g/dL (3.2-5.0); Alkaline Phosphatase 97 U/L (45-117); Anion Gap 7 (5-15); BUN 18 mg/dL (7-18); BUN/Creat Ratio 18.8 RATIO (10-20); Chloride 110 mmol/L (98-107); Creatinine, Serum 0.96 mg/dL (0.55-1.02); EST Glomerular Filtration Rate 78 mL/min (>60); Est Glom Filt Rate - Afr Amer 94 mL/min (>60); Ferritin 20 ng/mL (8-252); Globulin 3.4 g/dL (2.2-4.2); Glucose 122 mg/dL (74-106); Iron 182 ug/dL (50-170); Magnesium 1.8 mg/dL (1.6-2.6); Potassium 4.3 mmol/L (3.5-5.1); Protein, Total 6.9 g/dL (6.4-8.2); Sodium Level 139 mmol/L (136-145); Thyroid Stim Hormone (TSH) 1.54 uIU/mL (0.358-3.74)
== END 2021-10-10 23:59 | disposition home or self-care (01) ==
LOC: LAB 11:42
PROVIDERS: PCP Student in an Organized Health Care Education/Training Program; Referring Provider Student in an Organized Health Care Education/Training Program; Visit Provider Student in an Organized Health Care Education/Training Program
DX: F32.2 Major depressive disorder, single episode, severe without psychotic features (principal); E66.01 Morbid (severe) obesity due to excess calories; R35.0 Frequency of micturition; R79.0 Abnormal level of blood mineral; E61.1 Iron deficiency; K21.9 Gastro-esophageal reflux disease without esophagitis; G25.81 Restless legs syndrome
CPT/HCPCS: 36415; 80053; 81001; 82306; 82607; 82728; 82746; 83036; 83540; 83735; 84443; 85027

== ENCOUNTER 2022-01-06 00:53 | Emergency (ER) | payer MEDICAID, SELFPAY ==
[2022-01-06] VITALS (18 sets, daily range): BP systolic 98–144; BP diastolic 53–114; PULSE 74–146; RESP 15–37; TEMP 36.6; O2SAT 95–99; BMI 52.4
--- NOTE | 2022-01-06 01:02 | EKG12_ITS ---
Test Reason : DYSRHYTHMIA Blood Pressure : / mmHG Vent. Rate : 131 BPM Atrial Rate : 131 BPM P-R Int : 132 ms QRS Dur : 084 ms QT Int : 294 ms P-R-T Axes : 039 007 021 degrees QTc Int : 434 ms Sinus tachycardia Otherwise normal ECG Confirmed by EDDIE FRANKLIN, LEANDRO ([id number]), editor magazine MELISSA LAL ([id number]) on 01/07/2022 9:00:04 AM Referred By: PL Confirmed By:LEANDRO MORGAN MD
--- NOTE | 2022-01-06 01:02 | RAD_ITS ---
We are attempting to reach an attending provider to discuss findings. An addendum with communication details will be sent when the communication is complete. EXAM: XR CHEST, 2 VIEWS CLINICAL INDICATION: SOB TECHNIQUE: Frontal and lateral views of the chest. This report was created using [employer] report generation technology. COMPARISON: 05/29/2021. FINDINGS: LUNGS AND PLEURAL SPACES: Unremarkable. No consolidation or edema. No pneumothorax. No effusion. HEART: Unremarkable. Cardiac silhouette not enlarged. MEDIASTINUM: See below. BONES/JOINTS: Unremarkable. SOFT TISSUES: Gas within the soft tissues of the upper mediastinum and neck. On the AP view there is a bubbly appearance overlying the lower left hemithorax. On the lateral view it appears to be anterior within the subcutaneous tissues of the chest wall. RAD/Chest PA and Lateral IMPRESSION: 1. Gas within the soft tissues of the upper mediastinum and neck. 2. Possible gas in the left anterior chest wall versus bronchiectasis left lower lung. It does not appear to be overlying the lung on the lateral view. Electronically Signed: Андрей Rausch MD at 1:48 EDT ,
--- NOTE | 2022-01-06 01:06 | EDS_ITS ---
HPI History of Present Illness Chief Complaint: Asthma Informant: patient Narrative Narrative: Patient states that she sneezed and now has subcutaneous emphysema. She evidently has a history of this. I read recent visit. Evidently this patient is banned from transfers into [facility]. She has a history of self injecting air. There is also a history of self injecting air and possibly infectious material into her left arm years ago that caused infection and large surgery. Patient has always denied this. She also does have a history of asthma. When I asked her what helps with her subcutaneous emphysema she tells me that nothing helps. This just started shortly before arrival. She denies trauma. Denies fevers. Denies recent coughing. Denies feeling as though this is her asthma acting up. Nothing has made it better or worse since it happened tonight and she states nothing is ever made it better or worse in the past. She has been intubated multiple times with this. [facility] Medical History (Updated 01/06/22 @ 06:[address] Rodriguez Browne MD) Asthma Borderline personality disorder Conversion disorder HOLLY (generalized anxiety disorder) Major depressive disorder, recurrent, moderate Necrotizing fasciitis Periorbital edema of right eye Pseudoseizure Subcutaneous emphysema Subcutaneous emphysema Medical History no medical history no medical history Home Medications bupropion HCl 300 mg PO QHS 11/11/16 [History Last Taken 05/25/19] docusate sodium [DOK] 200 mg PO BID 11/11/16 [History Last Taken 05/26/19] escitalopram oxalate 20 mg PO QHS 11/11/16 [History Last Taken 05/25/19] magnesium oxide 400 mg PO BID 11/11/16 [History Last Taken 05/26/19] melatonin 10 mg PO QHS 11/11/16 [History Last Taken 05/25/19] riboflavin (vitamin B2) 400 mg PO DAILY 05/26/19 [History Last Taken 05/26/19] albuterol sulfate 1 puff INHALATION Q4H PRN PRN 07/20/19 [History Last Taken Unknown] buspirone 15 mg PO TID 07/20/19 [History Last Taken Unknown] dextroamphetamine-amphetamine [Adderall] 20 mg PO DAILY 07/20/19 [History Last Taken Unknown] gabapentin 300 mg PO TID 07/20/19 [History Last Taken Unknown] omeprazole 40 mg PO BID 07/20/19 [History Last Taken Unknown] ondansetron HCl 8 mg PO PRN PRN 07/20/19 [History Last Taken Unknown] promethazine 25 mg PO PRN PRN 07/20/19 [History Last Taken Unknown] hydroxyzine HCl 50 mg PO BID 01/21/21 [History Last Taken Unknown] lorazepam 1 mg PO DAILY PRN 01/21/21 [History Last Taken Unknown] trazodone 100 mg PO QHS 03/02/21 [History Last Taken Unknown] Dulera 2 puff INHALATION BID 05/29/21 [History Last Taken Unknown] fexofenadine 60 mg PO BID 05/29/21 [History Last Taken Unknown] doxycycline hyclate 100 mg PO BID #14 tab 06/02/21 [Rx Last Taken Unknown] methylprednisolone [Medrol (Merritt)] See Taper PO UD #21 tab 06/02/21 [Rx Last Taken Unknown] Allergy/AdvReac Type Severity Reaction Status Date / Time azithromycin [From Zithromax] Allergy Rash Verified 01/06/22 00:58 sulfamethoxazole Allergy Rash Verified 01/06/22 00:58 [From Bactrim] trimethoprim [From Bactrim] Allergy Rash Verified 01/06/22 00:58 Social History Smoking Status: Never smoker ROS ROS ED Constitutional Constitutional ED: Denies chills or fever(s) Eyes Eyes: Denies blurry vision ENT ENT ED: Reports other Details: No pain in her throat. ; Denies ear pain, rhinorrhea or sore throat Cardiovascular Cardiovascular: Reports palpitations; Denies chest pain Respiratory/Chest Respiratory/Chest: Reports cough and dyspnea; Denies sputum Gastrointestinal Gastrointestinal: Denies abdominal pain, nausea or vomiting Genitourinary Genitourinary ED: Denies dysuria Musculoskeletal Musculoskeletal: Denies myalgias Integumentary Denies rash Neurologic Neurologic: Denies headache(s) Psychiatric Psychiatric: Reports anxiety and depression Endocrine Endocrinology: Denies polydipsia or polyuria Hematologic/Lymphatic Hematologic/Lymphatic: Denies easy bleeding or easy bruising Allergic/Immunologic Allergic/Immunologic ED: Denies urticaria EXAM Physical Exam Const Vital Signs: 01/06/22 00:54 01/06/22 00:57 01/06/22 01:09 Temperature 97.9 F Temperature Source Oral Pulse Rate 146 H 124 H Respiratory Rate 25 H 28 H Respiratory Effort Short of Breath Labored Respiratory Depth Deep Respiratory Pattern Tachypnea Tachypnea Blood Pressure 144/106 H Blood Pressure Mean 118 Pulse Ox 97 Oxygen Delivery Method Room Air Room Air 01/06/22 02:10 01/06/22 02:37 01/06/22 04:29 Temperature Temperature Source Pulse Rate 114 H 74 93 Respiratory Rate 20 H 15 37 H Respiratory Effort Respiratory Depth Respiratory Pattern Blood Pressure 134/71 H 110/53 L Blood Pressure Mean 92 72 Pulse Ox 96 97 99 Oxygen Delivery Method Room Air Room Air Room Air 01/06/22 04:35 01/06/22 05:31 01/06/22 05:47 Temperature Temperature Source Pulse Rate 98 108 H 99 Respiratory Rate 22 H 24 H 24 H Respiratory Effort Respiratory Depth Respiratory Pattern Blood Pressure 142/90 H 132/82 H Blood Pressure Mean 107 98 Pulse Ox 95 98 98 Oxygen Delivery Method Room Air Room Air Room Air 01/06/22 06:06 Temperature Temperature Source Pulse Rate 106 H Respiratory Rate 25 H Respiratory Effort Respiratory Depth Respiratory Pattern Blood Pressure 121/61 H Blood Pressure Mean 81 Pulse Ox 96 Oxygen Delivery Method Room Air Positive well nourished, well developed and obese Constitutional Narrative: Patient's heart rate when I see her is about 130. She carries on a normal conversation. General Appearance ED: well developed and NAD Nutritional Appearance: obese HEENT Reports moist mucous membranes HEENT Narrative: Oropharynx is normal. Voice is normal. atraumatic; Negative for trauma Eyes PERRL and EOMs intact bilaterally Neck no lymphadenopathy and supple Neck Narrative: I suspect I feel some subcutaneous crepitance in anterior neck. Resp Resp Narrative: Patient carries on a normal conversation. When she breathes in she makes noise but when I have her talk between the breath she breathes and without that. This almost sounds like inspiratory stridor but it is intermittent. I do not hear expiratory wheezing. I have felt around her chest front sides and back and I am not feeling subcutaneous air at this point. We will certainly pursue this further with x-ray. Auscultation: Negative for wheezes Cardio regular rate Cardio Narrative: Heart rate is tachycardic. Rate: tachycardic GI non-tender Palpation: soft Back/Spine normal to inspection Extremity normal to inspection Extremity Narrative: Extensive scar from surgery left upper extremity. Neuro oriented x3 Sensorium / Orientation: alert Psych mental status grossly normal Skin Lesions: no lesions Rashes: no rashes MDM MDM MDM Narrative Medical decision making narrative: 01: 30 Patient's recheck. I can feel little crepitance in the neck. Her heart rate is actually down now. Her saturations are 99%. No great change with breathing treatment. Patient will be watched here. If she worsens she may need to be intubated. However, she also states that she has resolved without intubation. She does state that she was intubated almost 10 times or so last year. It could have been more. 02:00 Patient is calm. Breathing is easy. No obvious change in subcu emphysema or swelling. Heart rate is down to about 115. Her saturations are 96 to 97%. We will continue to observe the patient. She has been intubated multiple times but she has also recovered without intubation. We would like to avoid intubation every time she gets this if possible. 02:15 Patient's heart rate saturations and condition are unchanged. I talked with her that we would like to avoid intubation. She is okay with that plan at this time. 02:44 Heart rate is 113, respiratory rate 22, O2 sat 96%. Patient still doing well. 03:30 Heart rate is 94. Respirations are 24. O2 sat 98%. Patient's still doing quite well. She seems to be improving slightly. 04:15 Patient is resting quietly in bed. I see no enlargement of the neck. Her heart rate is about 100-105. Her sat is 97%. Her respiratory rate is still about 22- 24. She seems to almost be showing some improvement now. She is resting and breathing easily. Patient went to CT without difficulty. CT does show subcutaneous air in the neck and some anterior chest wall. I talked with the radiologist about the studies. It looks like the air probably originated up in the neck area oropharyngeal area. It is streaking down a little bit into the upper mediastinum but this does not look like it has an origin from the mediastinum. There is no clear origin. There is some compression of left internal jugular. No airway compression. Patient is actually doing progressively better. Her heart rate has come down. Her respiratory rate is down. Her oxygen saturation has been stable on room air. I discussed the case with our features reporter, Dr. Kwan. He feels that this patient is likely best served at a full service hospital that has ENT cardiothoracic surgery capabilities. We also discussed the potential psychiatric issues. It would be best if the facility has that access also. Patient wants to go to [facility]. She states she has been there most often. I contacted [facility]. I am waiting to talk to them again. They do have record of her self injecting at least to cause infection. It is unclear if this is caused by self injection or not. But we did bring that up as a possibility. Dr. Pantoja at [facility] has accepted patient in transfer. Lab Data Attestation: I reviewed the patient's lab results. Labs: Laboratory Results - last 24 hr 01/06/22 01/06/22 01:50 01:50 WBC 7.6 RBC 5.03 Hgb 14.0 Hct 42.2 MCV 83.9 MCH 27.8 MCHC 33.2 RDW Std Deviation 43.0 RDW Coeff of Anastacio 14.4 Plt Count 246 MPV 10.3 Immature Gran % (Auto) 0.400 Neut % (Auto) 55.2 Lymph % (Auto) 31.2 Rutherford % (Auto) 10.4 H Eos % (Auto) 2.1 Baso % (Auto) 0.7 Absolute Neuts (auto) 4.2 Absolute Lymphs (auto) 2.36 Nucleated RBC % 0 Sodium 143 Potassium 4.0 Chloride 111 H Carbon Dioxide 24.0 Anion Gap 8 BUN 14 Creatinine 0.98 Estim Creat Clear Calc 75.12 Est GFR (MDRD) Af Amer 92 Est GFR (MDRD) Non-Af 76 BUN/Creatinine Ratio 14.3 Glucose 109 H Calcium 9.1 Radiography Diagnostic Testing: Clinical Impression(s) from Imaging Studies Chest X-Ray 01/06/22 01:02 IMPRESSION: 1. Gas within the soft tissues of the upper mediastinum and neck. 2. Possible gas in the left anterior chest wall versus bronchiectasis left lower lung. It does not appear to be overlying the lung on the lateral view. Electronically Signed: Андрей Rausch MD at 1:48 EDT , ADDENDUM: 01/06/22 0158 IMPRESSION: 1. Gas within the soft tissues of the upper mediastinum and neck. 2. Possible gas in the left anterior chest wall versus bronchiectasis left lower lung. It does not appear to be overlying the lung on the lateral view. N.B. : The above Results were Read Back by Андрей Rausch MD to Dr Pavan MD, and understanding confirmed on 01/06/2022 01:51:43 (ET). Electronically Signed: Андрей Rausch MD at 1:48 EDT , Chest CT 01/06/22 04:47 IMPRESSION: 1. Pneumomediastinum within the superior aspect of the mediastinum. 2. Subcutaneous gas in the neck and the anterior left chest wall subcutaneous fat. Some of the gas in the left chest wall is significantly removed from the gas in the neck raising the question of venous embolization. On the prior study dated 03/18/2021 gas was seen into the upper right thigh anteriorly in a somewhat linear configuration suggesting intravenous gas. 3. There is significant gas around the inferior left internal jugular vein with extrinsic compression of the vein. Electronically Signed: Андрей Rausch MD at 5:34 EDT , ADDENDUM: 01/06/22 0544 IMPRESSION: 1. Pneumomediastinum within the superior aspect of the mediastinum. 2. Subcutaneous gas in the neck and the anterior left chest wall subcutaneous fat. Some of the gas in the left chest wall is significantly removed from the gas in the neck raising the question of venous embolization. On the prior study dated 03/18/2021 gas was seen into the upper right thigh anteriorly in a somewhat linear configuration suggesting intravenous gas. 3. There is significant gas around the inferior left internal jugular vein with extrinsic compression of the vein. N.B. : The above Results were Read Back by Андрей Rausch MD to Dr Pavan MD, and understanding confirmed on 01/06/2022 05:37:57 (ET). Electronically Signed: Андрей Rausch MD at 5:34 EDT , EKG Initial EKG: Comments: EKG done for dyspnea and tachycardia read by me shows sinus rhythm with tachycardic rate at 31. No ectopy. No acute ST elevation or depression. MD interval, QRS duration and QTc normal. Critical Care Time Critical care time (excluding procedures): 30-74 minutes, Discussing w/Patient &/or Family/[employer]r, Discussing w/Consultants, Arranging Admission or Transfer, Performing Direct Patient Care at Bedside and - (60 minutes, multiple repeat eval's, high risk for respiratory decompensation) Discharge Plan Triage Chief Complaint: Asthma Other Complaint: ED Provider: Rodriguez Browne Dx/Rx/DC Orders Clinical Impression: Subcutaneous emphysema Prescriptions: No Action bupropion HCl 150 MG tablet sustained-release 12 hr 300 mg PO QHS RF: 0 magnesium oxide 400 MG tablet 400 mg PO BID RF: 0 docusate sodium [DOK] 100 MG capsule 200 mg PO BID RF: 0 escitalopram oxalate 20 MG tablet 20 mg PO QHS RF: 0 melatonin 10 MG tablet 10 mg PO QHS RF: 0 riboflavin (vitamin B2) 400 MG tablet 400 mg PO DAILY RF: 0 buspirone 5 MG tablet 15 mg PO TID RF: 0 ondansetron HCl 8 MG tablet 8 mg PO PRN PRN (Reason: Nausea) RF: 0 dextroamphetamine-amphetamine [Adderall] 20 MG tablet 20 mg PO DAILY RF: 0 promethazine 25 MG tablet 25 mg PO PRN PRN (Reason: Vomiting) RF: 0 omeprazole 20 MG capsule 40 mg PO BID RF: 0 gabapentin 100 MG capsule 300 mg PO TID RF: 0 albuterol sulfate 1 PUFF inhaler 1 puff inhalation Q4H PRN PRN (Reason: Asthma) RF: 0 hydroxyzine HCl 50 mg Tablet 50 mg PO BID RF: 0 lorazepam 0.5 mg Tablet 1 mg PO DAILY PRN (Reason: Anxiety) RF: 0 trazodone 100 mg Tablet 100 mg PO QHS RF: 0 fexofenadine 30 mg Tablet 60 mg PO BID RF: 0 Dulera 200-5 mcg/actuation Hfa Aerosol Inhaler 2 puff INHALATION BID RF: 0 doxycycline hyclate 100 mg tablet 100 mg PO BID Qty: 14 RF: 0 methylprednisolone [Medrol (Merritt)] 4 mg tablets,dose pack See Taper mg PO UD Qty: 21 RF: 0 Primary Care Provider: Андрей Bailey Referrals: Андрей Bailey DO [Primary Care Provider] - Disposition Disposition: Acute Care Hospital Discharge Location: [facility] Discharge Date/Time: 01/06/22 13:15
[2022-01-06] MEDS: Ipratropium/Albuterol Sulfate 3 ML AMPUL.NEB INHALATION (01:09)
[2022-01-06 01:56] LABS: Absolute Lymphocyte Count 2.36 X10^3/uL (0.83-4.51); Absolute Neutrophil Count 4.2 X10^3/uL (2.0-7.7); Basophil# 0.05 X10^3/uL; Basophil% 0.7 % (0-1); Eosinophil# 0.16 X10^3/uL; Eosinophils% 2.1 % (0-5); Hematocrit 42.2 % (37-47); Lymphocyte # 2.36 X10^3/ul (0.83-4.51); Lymphocyte % 31.2 % (19-41); Mean Corp Hgb Conc 33.2 g/dL (32-36); Mean Corpuscular Hgb 27.8 pg (27.0-32.0); Mean Corpuscular Volume 83.9 fL (81-99); Mean Platelet Vol. 10.3 fl (6.2-12.0); Monocyte# 0.79 X10^3/uL; Monocyte% 10.4 % (0-10); NRBC Flagged by Analyzer 0 % (0-5); Neutrophil # 4.17 X10^3/uL (2.7-7.7); Neutrophil % 55.2 % (47-70); Platelet Count 246 K/mm3 (150-450); RBC Distribution Width CV 14.4 % (11.6-14.6); Red Blood Count 5.03 M/mm3 (4.2-5.4); White Blood Count 7.6 K/mm3 (4.4-11.0)
[2022-01-06 02:24] LABS: Anion Gap 8 (5-15); BUN 14 mg/dL (7-18); BUN/Creat Ratio 14.3 RATIO (10-20); Calcium,Total 9.1 mg/dL (8.5-10.1); Chloride 111 mmol/L (98-107); Creatinine, Serum 0.98 mg/dL (0.55-1.02); EST Glomerular Filtration Rate 76 mL/min (>60); Est Glom Filt Rate - Afr Amer 92 mL/min (>60); Estimated Creatinine Clearance 75.12 ml/min; Glucose 109 mg/dL (74-106); Sodium Level 143 mmol/L (136-145)
--- NOTE | 2022-01-06 04:47 | CT_ITS ---
We are attempting to reach an attending provider to discuss findings. An addendum with communication details will be sent when the communication is complete. EXAM: CT CHEST WITHOUT INTRAVENOUS CONTRAST CLINICAL INDICATION: Subcutaneous emphysema TECHNIQUE: Helically acquired images were obtained of the chest without intravenous contrast. This CT exam was performed using one or more of the following dose reduction techniques: automated exposure control, adjustment of the mA and/or kV according to patient size, and/or use of iterative reconstruction technique. This report was created using [employer] report [employer] technology. RADIATION DOSE: CTDIvol = 20.15 mGy, DLP = 709.90 mGy-cm. COMPARISON: 05/29/2021, 04/25/2021, and 03/18/2021. FINDINGS: LUNGS AND PLEURAL SPACES: Unremarkable. No mass. No consolidation or edema. No pleural effusion or thickening. No pneumothorax. HEART: Unremarkable. Heart size is normal. No pericardial effusion. No significant coronary artery calcifications. MEDIASTINUM: Pneumomediastinum within the superior aspect of the mediastinum. No mediastinal or hilar adenopathy. Esophagus is unremarkable. No hiatal hernia. THYROID: Unremarkable. No thyroid lesions. BONES/JOINTS: Unremarkable. No suspicious lytic or blastic abnormality. SOFT TISSUES: Subcutaneous gas in the neck and the anterior left chest wall subcutaneous fat. Some of the gas in the left chest wall is significantly removed from the gas in the neck raising the question of venous embolization. On the prior study dated 03/18/2021 gas was seen into the upper right thigh anteriorly in a somewhat linear configuration suggesting intravenous gas. VASCULATURE: There is significant gas around the inferior left internal jugular vein with extrinsic compression of the vein. CT/Chest without Contrast IMPRESSION: 1. Pneumomediastinum within the superior aspect of the mediastinum. 2. Subcutaneous gas in the neck and the anterior left chest wall subcutaneous fat. Some of the gas in the left chest wall is significantly removed from the gas in the neck raising the question of venous embolization. On the prior study dated 03/18/2021 gas was seen into the upper right thigh anteriorly in a somewhat linear configuration suggesting intravenous gas. 3. There is significant gas around the inferior left internal jugular vein with extrinsic compression of the vein. Electronically Signed: Андрей Rausch MD at 5:34 EDT ,
--- NOTE | 2022-01-06 10:42 | NURSING ---
no new swelling noted upon nursing round. pt complains of pain in neck and chest area where swelling is noted. dr yuan notified. pt's left arm noted with new open area- looks as though pt was scratching. pt remains in sinus tach as per baseline. no further observations at this time. blanket given. pt denies further needs. will continue to monitor swelling. call light within reach
--- NOTE | 2022-01-06 12:58 | NURSING ---
report called to [facility] ICU at this time. [facility] to transport pt.
== END 2022-01-06 13:15 | disposition short-term general hospital (02) ==
PROVIDERS: Emergency Provider Emergency Medicine; PCP Student in an Organized Health Care Education/Training Program; Visit Provider Emergency Medicine
DX: T79.7XXA Traumatic subcutaneous emphysema, initial encounter (principal); F60.3 Borderline personality disorder; F33.1 Major depressive disorder, recurrent, moderate; X58.XXXA Exposure to other specified factors, initial encounter; E66.9 Obesity, unspecified; Z79.899 Other long term (current) drug therapy
CPT/HCPCS: 71046; 71250; 80048; 85025; 87811; 93005; 94640; 99285

== ENCOUNTER 2022-04-26 15:37 | Emergency (ER) | payer MEDICAID, SELFPAY ==
[2022-04-26 15:37] VITALS: BP 133/91; PULSE 148; RESP 20; TEMP 36.1; O2SAT 98; BMI 51.3
[2022-04-26 16:28] VITALS: BP 133/91; PULSE 148; RESP 20; TEMP 36.1; O2SAT 98
--- NOTE | 2022-04-26 16:35 | EX.ED.DYSGE1 ---
HPI History of Present Illness Chief Complaint: Abscess Informant: patient Onset/Context/Timing Onset: Days (4) Context: Gradual Onset Timing: Continuous Quality: sore Location: R forearm Current Severity: Severe Maximum Severity: Severe Worsened by: palpation Relieved by: nothing Associated Symptoms Associated Symptoms: redness; no spont discharge, no fevers/chills. Narrative Narrative: Patient has a tender swollen right forearm that started in 1 particular spot, the redness and pain is spreading. She denies any fevers or chills. Goes up to the elbow, starting more distally on her dorsal right forearm. She has had these in the past in both arms, MRSA in the past, she states she has tested positive for ESBL and has been diagnosed with necrotizing fasciitis on her left forearm that she had surgery for at [facility]. She saw her PCP for this particular episode 1 day after the onset, 2 days ago and was started on Levaquin and doxycycline since she has an allergy to sulfa drugs, she states it has not helped and things continue to worsen. She has tried to apply warm/hot compresses, but she has yet to get any discharge out of the wound. [facility] Medical History Asthma Borderline personality disorder Conversion disorder HOLLY (generalized anxiety disorder) Major depressive disorder, recurrent, moderate Necrotizing fasciitis Periorbital edema of right eye Pseudoseizure Subcutaneous emphysema Subcutaneous emphysema Home Medications bupropion HCl 150 mg tablet,12 hr sustained-release 300 mg PO QHS 11/11/16 [History Last Taken 05/25/19] docusate sodium 100 mg capsule (DOK) 200 mg PO BID 11/11/16 [History Last Taken 05/26/19] escitalopram oxalate 20 mg tablet 20 mg PO QHS 11/11/16 [History Last Taken 05/25/19] magnesium oxide 400 mg (241.3 mg magnesium) tablet 400 mg PO BID 11/11/16 [History Last Taken 05/26/19] melatonin 10 mg sublingual tablet 10 mg PO QHS 11/11/16 [History Last Taken 05/25/19] riboflavin (vitamin B2) 400 mg tablet 400 mg PO DAILY 05/26/19 [History Last Taken 05/26/19] albuterol sulfate 90 mcg/actuation aerosol inhaler 1 puff inhalation Q4H PRN PRN Asthma 07/20/19 [History Last Taken Unknown] buspirone 5 mg tablet 15 mg PO TID 07/20/19 [History Last Taken Unknown] dextroamphetamine-amphetamine 20 mg tablet (Adderall) 20 mg PO DAILY 07/20/19 [History Last Taken Unknown] gabapentin 100 mg capsule 300 mg PO TID 07/20/19 [History Last Taken Unknown] omeprazole 20 mg capsule,delayed release 40 mg PO BID 07/20/19 [History Last Taken Unknown] ondansetron HCl 8 mg tablet 8 mg PO PRN PRN Nausea 07/20/19 [History Last Taken Unknown] promethazine 25 mg tablet 25 mg PO PRN PRN Vomiting 07/20/19 [History Last Taken Unknown] hydroxyzine HCl 50 mg tablet 50 mg PO BID 01/21/21 [History Last Taken Unknown] lorazepam 0.5 mg tablet 1 mg PO DAILY PRN Anxiety 01/21/21 [History Last Taken Unknown] trazodone 100 mg tablet 100 mg PO QHS 03/02/21 [History Last Taken Unknown] fexofenadine 30 mg tablet 60 mg PO BID 05/29/21 [History Last Taken Unknown] mometasone-formoterol HFA 200 mcg-5 mcg/actuation aerosol inhaler (Dulera) 2 puff inhalation BID 05/29/21 [History Last Taken Unknown] doxycycline hyclate 100 mg tablet 100 mg PO BID #14 tabs 06/02/21 [Rx Last Taken Unknown] methylprednisolone 4 mg tablets in a dose pack (Medrol (Merritt)) See Taper PO UD #21 tabs 06/02/21 [Rx Last Taken Unknown] Allergy/AdvReac Type Severity Reaction Status Date / Time azithromycin [From Zithromax] Allergy Rash Verified 01/06/22 00:58 sulfamethoxazole Allergy Rash Verified 01/06/22 00:58 [From Bactrim] trimethoprim [From Bactrim] Allergy Rash Verified 01/06/22 00:58 Social History Smoking Status: Never smoker ROS ROS ED Constitutional Constitutional ED: Denies chills or fever(s) Eyes Eyes: Denies change in vision or diplopia ENT ENT ED: Denies rhinorrhea or sore throat Cardiovascular Cardiovascular: Denies chest pain or palpitations Respiratory/Chest Respiratory/Chest: Denies cough or dyspnea Gastrointestinal Gastrointestinal: Denies abdominal pain, diarrhea, nausea or vomiting Genitourinary Genitourinary ED: Denies dysuria or hematuria Musculoskeletal Musculoskeletal: Reports extremity pain; Denies back pain or neck pain Integumentary Reports as per HPI and abscess; Denies rash Neurologic Neurologic: Denies headache(s), paresthesias or weakness Psychiatric Psychiatric: Denies anxiety or suicidal thoughts EXAM Physical Exam Const Vital Signs: 04/26/22 15:37 04/26/22 16:28 04/26/22 18:03 Temperature 96.9 F L 96.9 F L Temperature Source Temporal Temporal Pulse Rate 148 H 148 H Respiratory Rate 20 H 20 H 16 Blood Pressure 133/91 H 133/91 H Blood Pressure Mean 105 105 Pulse Ox 98 98 Oxygen Delivery Method Room Air Room Air 04/26/22 20:00 04/26/22 22:00 04/26/22 22:44 Temperature 98.3 F Temperature Source Oral Pulse Rate 109 H Respiratory Rate 18 17 17 Blood Pressure 116/64 Blood Pressure Mean 81 Pulse Ox 94 Oxygen Delivery Method Room Air Room Air Room Air Positive well nourished, well developed and obese General Appearance ED: well developed and NAD Nutritional Appearance: obese HEENT Reports moist mucous membranes normocephalic and atraumatic Eyes PERRL and EOMs intact bilaterally Neck full ROM and supple Resp normal respiratory effort Effort and Inspection: able to speak in complete sentences Cardio regular rate, regular rhythm and no murmurs Rate: tachycardic Back/Spine no CVA tenderness General Back: other FROM Extremity Extremity Narrative: Right forearm is erythematous, swollen, surrounding and indurated abscess approximately 5 cm diameter of induration right mid-distal dorsal forearm does not involve the wrist. Erythema goes up to but does not include the elbow joint, there is no epitrochlear lymphadenopathy or erythema there or in the upper arm/proximally. She can move the elbow and wrist but more limited at the wrist due to pain in the forearm. There is a small open wound distally on her wrist/hand that does not have erythema and is nontender, and a small wound at the center of this erythema and induration that does not have any expressible spontaneous discharge. There is no subcutaneous emphysema that I am palpating. General Extremety ED: Yes tenderness; Negative for edema or pulses abnormal General Extremity: Negative for edema or pulses abnormal Neuro oriented x3, CN's II-XII intact bilaterally and no sensory deficits noted Sensorium / Orientation: awake and alert Motor Exam: strength 5/5 throughout Psych Psych Narrative: flat affect Skin no rashes or lesions noted and no wounds MDM MDM MDM Narrative Medical decision making narrative: In reviewing the patient's records, she has no history of a positive ESBL culture, this must have been at another facility; she confirms that it was. She does have a history of MRSA as well as coag negative staph. Seen that she is failing outpatient therapy with oral antibiotics, I discussed my recommendation for incision and drainage in addition to IV vancomycin which was given and she was amenable to all of that. She agrees it has been slowly worsening in the past 4 days. Patient was a very difficult stick, nursing attempted multiple times to obtain IV access and were unable, and blood was unable to be obtained as well. Patient required a central line, which also was complicated and required an extended procedure time in order to place, due to her morbid obesity, with regards to both the thickness of her chest wall and the abundance of tissue in her neck. This was done under ultrasound guidance to the procedure note but eventually we were able to obtain a line as well as blood. Prior to performing a central line, we did obtain forearm x-ray. On my interpretation 2 views show diffuse subcutaneous emphysema, so I reexamined the patient immediately, and I was able to feel an area dorsally where there was subcutaneous emphysema. In my judgment this is concerning for necrotizing fasciitis. Therefore I added Zosyn and clindamycin in addition to the vancomycin, all of which was given after IV access was able to be obtained, admittedly in a delayed fashion because of her lack of access. On my multiple reevaluations, the erythema did not change significantly at the proximal aspect for my initial evaluation. Clinically the patient remained the same and stable, her tachycardia was also stable. She did not develop hypotension. I attempted to aspirate any purulent material from the wound, there was none see the procedure note. At this time her vital signs are improved with a blood pressure 116/64, heart rate 109 down from about 150. She is afebrile. She was given Dilaudid and later an additional dose of morphine, I did take the edge off, but she is in pain. Patient has a history of injecting subcutaneous air into her face and neck. She has assured me that is not the case in her right upper extremity and this past week, and she has injected herself nowhere else. She wants to go to [facility] since she was there in the past and we do not have plastics here. I discussed with Dr. Cruz there, who agrees to see the patient under medical admission. Accepted by Dr. Weeks. Lab Data Attestation: I reviewed the patient's lab results. Labs: Laboratory Results - last 24 hr 04/26/22 04/26/22 04/26/22 19:55 19:55 19:55 WBC 8.1 RBC 4.39 Hgb 12.4 Hct 36.8 L MCV 83.8 MCH 28.2 MCHC 33.7 RDW Std Deviation 41.3 RDW Coeff of Anastacio 13.6 Plt Count 220 MPV 9.8 Immature Gran % (Auto) 0.200 Neut % (Auto) 56.5 Lymph % (Auto) 27.6 Burt % (Auto) 12.7 H Eos % (Auto) 2.4 Baso % (Auto) 0.6 Absolute Neuts (auto) 4.6 Absolute Lymphs (auto) 2.23 Nucleated RBC % 0 Sodium 141 Potassium 3.5 Chloride 108 H Carbon Dioxide 24.0 Anion Gap 9 BUN 17 Creatinine 0.76 Estim Creat Clear Calc 96.86 Est GFR (MDRD) Af Amer 123 Est GFR (MDRD) Non-Af 101 BUN/Creatinine Ratio 22.4 H Glucose 109 H Lactic Acid 0.7 Calcium 8.8 Radiography Diagnostic Testing: Clinical Impression(s) from Imaging Studies Forearm X-Ray 04/26/22 17:27 IMPRESSION: There is soft tissue swelling consistent with a soft tissue injury. Soft tissue air around the forearm Electronically Signed: Harrison Rubi MD at 18:02 EDT , Chest X-Ray 04/26/22 20:09 IMPRESSION: There are no acute findings. Electronically Signed: Harrison Rubi MD at 20:39 EDT , Procedures Other Procedures Procedure(s): Central line placement: Attempted right subclavian, after several attempts not being able to find a subclavian vein due to the amount of pressure needed to placing due to the patient's obesity, patient requested that we abort and try the IJ which we did and it was successful. Patient was prepped and draped in a sterile fashion using a full body drape, chlorhexidine prep. Locally anesthetized with lidocaine, between the 2 sites a total of 10 cc of plain 1% lidocaine was used. Finder needle found dark red nonpulsatile blood from the internal jugular vein via ultrasound guidance, there was no arterial puncture or expanding hematoma. The 20 cm triple-lumen catheter was placed via modified Seldinger technique, all 3 ports adam back dark red nonpulsatile blood and flushed easily. There is no kink in the guidewire upon removal. Sutured in place, chlorhexidine disc placed against the skin site, verified by chest x-ray good placement, no pneumothorax. No complications otherwise. Tolerated well by the patient. Abscess drainage: Attempted needle aspiration from central-most area of induration, no purulent material was able to be aspirated. This was done after sterile prep with chlorhexidine and local anesthesia with 1 cc of 1% plain lidocaine. Critical Care Time Critical Care Time: Yes Critical care time (excluding procedures): 30-74 minutes (45 min, not including procedure time), Including time spent:, Discussing w/Patient &/or Family/Injection Wax Molder, Discussing w/Consultants, Arranging Admission or Transfer and Performing Direct Patient Care at Bedside Discharge Plan Triage Chief Complaint: Abscess ED Provider: Yaya Krueger Dx/Rx/DC Orders Clinical Impression: Necrotizing fasciitis of forearm Prescriptions: No Action bupropion HCl 150 MG tablet sustained-release 12 hr 300 mg PO QHS magnesium oxide 400 MG tablet 400 mg PO BID docusate sodium [DOK] 100 MG capsule 200 mg PO BID escitalopram oxalate 20 MG tablet 20 mg PO QHS melatonin 10 MG tablet 10 mg PO QHS riboflavin (vitamin B2) 400 MG tablet 400 mg PO DAILY buspirone 5 MG tablet 15 mg PO TID ondansetron HCl 8 MG tablet 8 mg PO PRN PRN (Reason: Nausea) dextroamphetamine-amphetamine [Adderall] 20 MG tablet 20 mg PO DAILY promethazine 25 MG tablet 25 mg PO PRN PRN (Reason: Vomiting) omeprazole 20 MG capsule 40 mg PO BID gabapentin 100 MG capsule 300 mg PO TID albuterol sulfate 1 PUFF inhaler 1 puff inhalation Q4H PRN PRN (Reason: Asthma) hydroxyzine HCl 50 mg Tablet 50 mg PO BID lorazepam 0.5 mg Tablet 1 mg PO DAILY PRN (Reason: Anxiety) trazodone 100 mg Tablet 100 mg PO QHS fexofenadine 30 mg Tablet 60 mg PO BID Dulera 200-5 mcg/actuation Hfa Aerosol Inhaler 2 puff INHALATION BID doxycycline hyclate 100 mg tablet 100 mg PO BID Qty: 14 0RF methylprednisolone [Medrol (Merritt)] 4 mg tablets,dose pack See Taper PO UD Qty: 21 0RF Taper: Prednisone Taper 60 mg WITH BREAKFAST for 3 Days and 0 Hour 50 mg WITH BREAKFAST for 3 Days and 0 Hour 40 mg WITH BREAKFAST for 3 Days and 0 Hour 30 mg WITH BREAKFAST for 3 Days and 0 Hour 20 mg WITH BREAKFAST for 3 Days and 0 Hour 10 mg WITH BREAKFAST for 3 Days and 0 Hour Primary Care Provider: Андрей Bailey Referrals: Андрей Bailey DO [Primary Care Provider] - Disposition Disposition: Acute Care Hospital Discharge Location: [facility]
--- NOTE | 2022-04-26 17:27 | RAD_ITS ---
STUDY: X-RAY XR Forearm 2 Views REASON FOR EXAM: Female, 21 years old. PAIN TECHNIQUE: XR Forearm 2 Views RIGHT COMPARISON: None. FINDINGS: There is soft tissue swelling consistent with a soft tissue injury. Soft tissue air around the forearm. Normal visualized radius. Normal visualized ulna. RAD/Forearm 2 Views IMPRESSION: There is soft tissue swelling consistent with a soft tissue injury. Soft tissue air around the forearm Electronically Signed: Harrison Rubi MD at 18:02 EDT ,
[2022-04-26 18:03] VITALS: RESP 16
--- NOTE | 2022-04-26 18:03 | ED.RN ---
UNABLE TO PLACE IV, ATTEMPTED BY MULTIPLE NURSES. DR TO PLACE CENTRAL LINE
[2022-04-26] MEDS: Lidocaine 1% (20 ml mdv) 20 ML Vial INFILT (18:11)
--- NOTE | 2022-04-26 18:48 | ED.RN ---
UNABLE TO HANG VANCOMYCIN DUE TO NO LINE ACCESS. WAITING ON DR BAEZ TO PLACE CENTRAL LINE
[2022-04-26 20:00] VITALS: RESP 18
--- NOTE | 2022-04-26 20:09 | RAD_ITS ---
STUDY: X-RAY CHEST REASON FOR EXAM: Female, 21 years old. CHEST PAIN central line placement TECHNIQUE: XR Chest 1 View COMPARISON: 05/29/2021 FINDINGS: There is no demonstrated pleural abnormality. No pneumothorax. Right internal jugular line. Normal size heart. Normal mediastinum and melissa. Normal visualized pulmonary arteries. Normal visualized aortic arch and descending thoracic aorta. Normal visualized thoracic spine. Normal visualized ribs, clavicles, and shoulders. There is no demonstrated abnormality of the visualized soft tissue structures of the upper abdomen. RAD/CXR for Line Placement IMPRESSION: There are no acute findings. Electronically Signed: Harrison Rubi MD at 20:39 EDT ,
[2022-04-26 20:21] LABS: Absolute Lymphocyte Count 2.23 X10^3/uL (0.83-4.51); Absolute Neutrophil Count 4.6 X10^3/uL (2.0-7.7); Basophil# 0.05 X10^3/uL; Basophil% 0.6 % (0-1); Eosinophil# 0.19 X10^3/uL; Eosinophils% 2.4 % (0-5); Hematocrit 36.8 % (37-47); Hemoglobin 12.4 g/dL (12.0-15.0); Lymphocyte # 2.23 X10^3/ul (0.83-4.51); Lymphocyte % 27.6 % (19-41); Mean Corp Hgb Conc 33.7 g/dL (32-36); Mean Corpuscular Hgb 28.2 pg (27.0-32.0); Mean Corpuscular Volume 83.8 fL (81-99); Mean Platelet Vol. 9.8 fl (6.2-12.0); Monocyte# 1.03 X10^3/uL; Monocyte% 12.7 % (0-10); NRBC Flagged by Analyzer 0 % (0-5); Neutrophil # 4.56 X10^3/uL (2.7-7.7); Neutrophil % 56.5 % (47-70); Platelet Count 220 K/mm3 (150-450); RBC Distribution Width CV 13.6 % (11.6-14.6); RBC Distribution Width SD 41.3 fl (35.1-43.9); Red Blood Count 4.39 M/mm3 (4.2-5.4); White Blood Count 8.1 K/mm3 (4.4-11.0)
[2022-04-26] MEDS: HYDROmorphone 1 MG/ML Syringe 2 MG IV (20:22)
[2022-04-26] MEDS: Clindamycin 900 MG/50 ML BAG 75 MG IV (20:23)
[2022-04-26 20:35] LABS: Anion Gap 9 (5-15); BUN 17 mg/dL (7-18); BUN/Creat Ratio 22.4 RATIO (10-20); Calcium,Total 8.8 mg/dL (8.5-10.1); Chloride 108 mmol/L (98-107); Creatinine, Serum 0.76 mg/dL (0.55-1.02); EST Glomerular Filtration Rate 101 mL/min (>60); Est Glom Filt Rate - Afr Amer 123 mL/min (>60); Estimated Creatinine Clearance 96.86 ml/min; Glucose 109 mg/dL (74-106); Potassium 3.5 mmol/L (3.5-5.1); Sodium Level 141 mmol/L (136-145)
[2022-04-26 20:49] LABS: Lactic Acid 0.7 mmol/L (0.4-1.9)
[2022-04-26 22:00] VITALS: RESP 17
[2022-04-26] MEDS: Morphine 4 MG/ML Syringe IV (22:32)
[2022-04-26 22:44] VITALS: BP 116/64; PULSE 109; RESP 17; TEMP 36.8; O2SAT 94
[2022-04-27] MEDS: Morphine 4 MG/ML Syringe IV ×2 (00:45→04:35)
[2022-04-27 00:50] VITALS: BP 105/51; PULSE 114; RESP 18; O2SAT 94
--- NOTE | 2022-04-27 00:51 | ED.RN ---
patient has been accepted with bed assignment to [facility], physicians called for transport eta [id number]
[2022-04-27 02:00] VITALS: RESP 18
[2022-04-27 03:57] VITALS: BP 118/78; PULSE 114; RESP 17; O2SAT 96
[2022-04-27 06:00] VITALS: RESP 17
[2022-04-27 06:29] VITALS: BP 121/82; PULSE 110; RESP 18; TEMP 36.6; O2SAT 97
== END 2022-04-27 06:51 | disposition short-term general hospital (02) ==
PROVIDERS: Emergency Provider Emergency Medicine; PCP Student in an Organized Health Care Education/Training Program; Visit Provider Emergency Medicine
DX: T79.7XXA Traumatic subcutaneous emphysema, initial encounter (principal); M72.6 Necrotizing fasciitis; F33.1 Major depressive disorder, recurrent, moderate; M79.631 Pain in right forearm; J45.909 Unspecified asthma, uncomplicated; F41.9 Anxiety disorder, unspecified; E66.9 Obesity, unspecified; Z79.899 Other long term (current) drug therapy; X58.XXXA Exposure to other specified factors, initial encounter
CPT/HCPCS: 36556; 71045; 73090; 80048; 83605; 85025; 87040; 87070; 87077; 87186; 87205; 96365; 96366; 96368; 96375; 96376; 99283; J7040; J7050; A4216

== ENCOUNTER 2022-07-20 08:00 | Outpatient (RCR) | payer MEDICAID, SELFPAY ==
--- NOTE | 2022-07-20 09:00 | BH.SGPN.GN ---
Behaviors/Verbalizations/Mental Status: [] Eye contact is good. Motor activity is appropriate. Appearance is casual. Speech is Appropriate. Mood is depressed. Affect is flat. Thoughts are linear and logical. No evidence of psychosis. Reviewed daily check in sheet and no reports of suicidal ideations or intent Client Response/Progress/Benefit: [] Pt participated at times during the group discussion. Attentive. Shared that his was her first day in IOP. Her goals for IOP are to get a refresher on her coping skills. She did not share anything about herself or her recent struggles. Able to identify a mental health win over the weekend as spending time with my mom even though I didn't want too. Shared how she utilized opposite-action and overall found that spending timer with her mother was beneficial. Limited benefit as this was pt's first day in IOP. Will continue in IOP to maintain safety, prevent decompensation/re-admission, and to increase coping skills. Narrative Note: []
--- NOTE | 2022-07-20 10:00 | BH.SGPN.GN ---
Behaviors/Verbalizations/Mental Status: [] Eye contact is fair. Motor activity is appropriate. Appearance is casual. Speech is Appropriate. Mood is depressed. Affect is flat. Thoughts are linear and logical. No evidence of delusions or hallucinations. Client Response/Progress/Benefit: [] Pt was an engaged participant AEB listening attentively to others and provided input at times. Attentive during psychoeducation and provided insight into obstacles in the way of mental wellness. Pt shared her picture depicting her current mental health reality with the group. She described her current reality as feeling overwhelmed and out of control. Pt's desired reality is feeling more in control, being able to manage stressors, and stable. Pt identified barriers that get in the way of desired reality include: poor boundaries, gaslighting, self-harm, no motivation, and avoiding problems. Benefited from taking look at current mental health state and obstacles for progress. First day in IOP. Will continue in IOP to improve daily functioning, increase healthy coping and prevent decompensation.
--- NOTE | 2022-07-20 11:08 | BH.SGPN.GN ---
Behaviors/Verbalizations/Mental Status: []Pt alert and oriented, neatly dressed and groomed. Eye contact good. Motor activity appropriate. Speech within normal limits. Affect constricted, mood depressed. Thoughts linear, logical, no signs of hallucinations or delusions. Client Response/Progress/Benefit: []Pt engaged during activity, encouraging peers and contributed as group brainstormed ideas on how to cope with internal barriers that keep pts stuck from moving towards goals. Able to identify barriers to desired reality. Identified barriers to current reality to include: poor boundaries, gaslighting, self-harm, and avoiding problems. Pt wants to work on overcoming the barrier of self-harm by reducing access to objects that could be used to harm herself. Benefited from group by identifying obstacles and solutions to desired reality.? Pt will continue IOP tx to prevent decompensation, reduce use of unhealthy coping skills, and improve daily functioning. ?? Narrative Note: []
--- NOTE | 2022-07-22 09:05 | BH.SGPN.GN ---
Behaviors/Verbalizations/Mental Status: [] Eye contact is good. Motor activity is appropriate. Appearance is casual. Speech is Appropriate. Mood is depressed. Affect is flat. Thoughts are linear and logical. No evidence of psychosis. Reviewed daily check in sheet and pt reports 4/5 for suicidal thoughts and 0/5 for intent. Chronic fleeting SI. Meets with psychiatrist this AM. Client Response/Progress/Benefit: [] Pt participated when prompted. Attentive. Emotion for today is on-edge. Daily symptom tracker notes 3/5 for depression, irritability, and self-harm urges. Mental health win is My wound is fully healed. She shared briefly the struggles that she has had with self-inflicted wounds for the past several months. Another win is that she practiced opposite-action and saw some benefits. Stress is conflict with her her mother. We had an argument this AM. Pt does not elaborate much on her thoughts, stressors, and or distress. Narrative Note: []
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
[2022-07-22 11:04] VITALS: BP 157/97; PULSE 111
--- NOTE | 2022-07-22 11:10 | BH.SGPN.GN ---
Behaviors/Verbalizations/Mental Status: []Client alert and oriented, casually dressed and groomed. Eye contact fair. Motor activity appropriate. Speech within normal limits, quiet. Affect constricted, mood dysthymic. Thoughts linear, logical, no signs of hallucinations or delusions Client Response/Progress/Benefit: []Client responded well to session, taking notes and contributing. Group discussed the different categories of coping skills which included distraction, emotional release, grounding, self-love, and thought challenging. Client participated in creating a coping skills ?menu? from the five categories of coping skills. Client's coping skill menu included: crafting, participate in therapy, listen to healthier music, setting boundaries, and putting thoughts into perspective. Appeared to benefit from increasing repertoire of healthy coping skills. Will continue IOP to improve daily functioning, increase healthy coping, and prevent decompensation.
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
--- NOTE | 2022-07-24 09:10 | BH.SGPN.GN ---
Behaviors/Verbalizations/Mental Status: [] Eye contact is good. Motor activity is appropriate. Appearance is casual. Speech is Appropriate. Mood is depressed. Affect is flat. Thoughts are linear and logical. No evidence of psychosis. Reviewed daily check in sheet and pt reports 3/5 for suicidal thoughts and 0/5 for intent. This is below baseline. Client Response/Progress/Benefit: [] Pt participated at times during the group discussions. Attentive. Daily symptom tracker notes 3/5 for depression and 3/5 for self-harm urges. Emotion for today is burned out. Mental health wins include spending time with her little brother and being vulnerable with her PCP. Pt states I spilled my guts to him. Shared that she is typically very reserved and doesn't talk about her true thoughts, distress, and stressors with others. PCP responded positively and she was able to identify the benefits of being honest. Stressor is reported to be increased conflict among family members over the holiday season. Benefited from group support, encouragement, and feedback. Will continue in IOP to maintain safety, prevent decompensation/readmission, and improve functioning. Narrative Note: []
--- NOTE | 2022-07-24 13:33 | BH.MTP_ITS ---
Master Treatment Plan - Patient Information Program Physician:: Dr. Breen Primary Therapist:: Pascale Adkins, [facility] - Psychiatric Diagnoses Psychiatric Diagnoses:: 1. Major depressive disorder, recurrent, severe without psychosis. 2. Borderline personality disorder. 3. Generalized anxiety disorder. 4. Factitious disorder. 5. History of pseudoseizure conversion disorder Diagnosis Code(s):: F33.2 - Estimated LOS Estimated LOS (in weeks):: 6 Problem/Goal #1 - Problem/Goal #1 Stated Goal:: Client will decrease depressive symptoms, isolation, and hopelessness due to Major Depressive Disorder through Intensive Outpatient Program. Description of Barriers: Pt has hx of intrusive thoughts to be hospitalized which has led to pt intentionally harming self to get an infection. Additional potential barriers include: negative thought patterns, limited social support, anxious thoughts, and difficulty applying healthy skills. Functional Impact: The patient is a 22-year-old single, female with a history of depression, borderline personality disorder, factitious disorder, pseudoseizure and ADHD who did the [facility] program in the summer 2018 and was referred back after a medical admission at [facility] from June 06 to June 30, 2022. She was admitted for an abscess in her right forearm which is now healing well according to the patient. The patient has a long history of self-injurious behaviors that resulted in numerous infections, medical admissions and surgeries. She has a history of picking at wounds and causing them to become infected and has had numerous medical admissions this year long for the above. The patient also has a history of injecting herself subcutaneously with air into her face and neck causing subcutaneous emphysema. She endorses being down and depressed since she got discharged from the hospital on June 30. She endorses hopelessness, worthlessness, anhedonia, low energy, decreased concentration and guilt. The patient now admits that she has intentionally caused her wounds to become infected in the past. The patient endorses passive thoughts of and fleeting, daily passive suicidal ideation. She denies active suicidal ideation, plan for suicide, homicidal ideation, hallucinations or delusions or symptoms of yana ever. - Objectives Objective #1 Stated Objective: Client will learn and utilize 2-3 healthy coping strategies to manage depressive symptoms. Interventions: Therapist will utilize CBT techniques to assist client with understanding the connection between thoughts, feelings and behaviors. Education will be provided on behavioral activation. Therapist will assist client in learning internal coping strategies to manage depressive symptoms, along with helping client identify triggers. Discharge Criteria: Client will have achieved this goal when can verbalize and has practiced at least 2 healthy coping strategies that successfully manage depressive symptoms. Target Date: 08/31/22 Review Date: 08/17/22 Objective #2 Stated Objective: Pt will decrease depressive symptoms AEB pt?s score on the DSM 5 cross-cutting measure and improve pt?s daily functioning. Interventions: Through groups and individual therapy, pt will be provided with education on cognitive distortions, mistaken beliefs, and identifying and combating negative self-talk. Therapist will assist pt with getting back into the activities she once enjoyed as well as increasing healthy coping strategies. Discharge Criteria: Pt will have met this goal when pt?s score on the DSM 5 cross cutting measure for depression has been decreased and per pt?s report daily functioning has improved. Target Date: 08/31/22 Review Date: 08/17/22 Problem/Goal #2 - Problem/Goal #2 Stated Goal:: Client will reduce overall frequency, intensity, and duration of the anxiety so that daily functioning is not impaired. Description of Barriers: Pt has hx of intrusive thoughts to be hospitalized which has led to pt intentionally harming self to get an infection. Additional potential barriers include: negative thought patterns, limited social support, anxious thoughts, and difficulty applying healthy skills. Functional Impact: The patient is a 22-year-old single, female with a history of depression, borderline personality disorder, factitious disorder, pseudoseizure and ADHD who did the [facility] program in the summer 2018 and was referred back after a medical admission at [facility] from June 06 to June 30, 2022. She was admitted for an abscess in her right forearm which is now healing well according to the patient. The patient has a long history of self-injurious behaviors that resulted in numerous infections, medical admissions and surgeries. She has a history of picking at wounds and causing them to become infected and has had numerous medical admissions this year long for the above. The patient also has a history of injecting herself subcutaneously with air into her face and neck causing subcutaneous emphysema. She endorses being down and depressed since she got discharged from the hospital on June 30. She endorses hopelessness, worthlessness, anhedonia, low energy, decreased concentration and guilt. The patient now admits that she has intentionally caused her wounds to become infected in the past. The patient endorses passive thoughts of and fleeting, daily passive suicidal ideation. She denies active suicidal ideation, plan for suicide, homicidal ideation, hallucinations or delusions or symptoms of yana ever. - Objectives Objective #1 Stated Objective: Client will learn and implement 2-3 calming skills to reduce overall anxiety and manage anxiety symptoms. Interventions: Therapist and group sessions will help client identify physiological warning signs of anxiety, increase awareness of thoughts that increase anxiety, and identify behaviors that reinforce anxious symptoms. Group and individual counseling will teach client calming skills to help manage a nxious symptoms. Discharge Criteria: Client will have achieved this goal when can verbalize at least 2 calming skills and reports skills successfully help reduce anxious sympt oms. Target Date: 08/31/22 Review Date: 08/17/22 Objective #2 Stated Objective: Pt will decrease anxious symptoms AEB pt?s score on the DSM 5 cross-cutting measure improve pt?s daily functioning. Interventions: Through groups and individual therapy, pt will be provided education about anxiety?s impact on body and common physiological reaction to anxiety. Therapist will teach pt appropriate breathing techniques and build healthy coping skills to manage daily anxieties. Discharge Criteria: Pt will have met this goal when pt?s score on the DSM 5 cross cutting measure for anxiety has been decreased and per pt?s report daily functioning has improved. Target Date: 08/31/22 Review Date: 08/17/22
--- NOTE | 2022-07-24 14:34 | BH.MDN_ITS ---
Multi-Disciplinary Note - Note 30-min Individual Time Started:: 08:45 Date: 07/24/22 Purpose of session/treatment goals addressed:: Purpose session was to assess current symptoms and stressors, gather additional background information, and solidify treatment goals for [facility] level of care. Eye Contact:: Fair Motor Activity:: Appropriate Appearance:: Casual, Other - Grooming fair Speech:: Appropriate Mood:: Dysthymic Affect:: Constricted Thoughts:: Linear, Logical, No evidence of hallucinations/delusions noted Staff Interventions:: CBT techniques, rapport building, strengths perspective, treatment planning, taught coping skills Client Response:: Client reported so far IOP is going okay stating groups are just not my thing however reported she is willing to continue to give it a try. Client stated she believes she is on the wait list for a residential treatment program that is located in [place] but it is unclear when she would start that program. Client reported while she is in IOP program she would like to decrease urges to harm herself. 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 Client reported this most recent hospitalization she believes is really scared her because she has not had any urges to go back to the hospital since discharge. Client receptive to psychoeducation about secondary gains and identifying what she enjoys about being hospitalized. Client stated she does like to be hospitalized in order to get away from home stress and she enjoys having a uninterrupted schedule in which she is able to do whatever she wants. Client reported she can be stressed at home because recently her parents have been fighting more frequently which makes her anxious and she does help to help her brother who has special needs. Client denied enjoying the hospital due to getting significant attention. Client stated often when she is hospitalized the attention is not very positive due to hospital voices being aware of her fictitious disorder. Client expressed concern that when something is wrong people will believe her due to this diagnosis. Client stated she really wants to work on being able to stay at a hospital and manage urges to harm self. Client reported currently she has no access to sharp objects but does have some urges to pick her wound. Client stated her wound is almost fully healed which she believes will help decrease the chance of harming self because she will not be able to use picking. Client's expressed feeling very anxious that she is going to mess everything up. Client shared her current daily routine and identified her less difficult time frame is in the evening when both her parents are home. Client receptive to brainstorming strategies to help her manage that time which included engaging in activities she enjoys like crafting, taking dog to the dog store, and going to a different area of the house to avoid being around any conflict between her parents. Client worked with therapist to develop week and plans to help her avoid harming self. Client stated it has been helpful to go to her grandma's house for distraction and to be around healthy support. Client agreed in the evening over the weekend she will go to her grandma's to spend time with her and not have to be surrounded by her parents. Risks/Concerns:: Client reports daily suicidal thoughts denies plan or intention. Client reports daily self-harm thoughts but feels able to maintain safety. Client has no access to firearms, stockpile medications, or sharp objects. Future focused. Progress Toward Goals/Plan:: Progress noted with client being honest about her fictitious disorder and expressing desire to stop self harming and creating more wounds. Client struggles with daily thoughts of self-harm and suicidal thoughts. Client denies intention and plan. Client open to creating new routine to decrease boredom and to find ways to manage self-harm urges. Client to continue IOP to increase healthy coping, challenge distorted thought patterns, and prevent decompensation. Time Stopped:: 09:20
--- NOTE | 2022-07-27 09:00 | BH.SGPN.GN ---
Behaviors/Verbalizations/Mental Status: []Pt alert and oriented, casually dressed and groomed. Eye contact good. Motor activity appropriate. Speech within normal limits. Affect congruent, mood euthymic. Thoughts linear, logical, no signs of hallucinations or delusions. Reviewed pt?s symptom tracker, no risk for suicidal ideation, plan, or intent as of 07/27/22 Client Response/Progress/Benefit: []Pt responded well to session, attentive and participating when prompted. Pt reports feeling excited this morning as pt has her final appointment with her surgeon about her arm wound. Pt stated it's like closing a chapter and reported that her mental health made it harder to close that chapter. Pt is ready to focus on my mental health now. Pt shared she was able to stop herself from self-harming this weekend using healthy distractions. Pt appeared to benefit from reflecting on her application of skills. Will continue IOP tx to prevent decompensation, reduce self-harming urges, and improve distress tolerance. Narrative Note: []
--- NOTE | 2022-07-27 10:15 | BH.SGPN.GN ---
Behaviors/Verbalizations/Mental Status: []Client alert and oriented, casually dressed and groomed. Eye contact good. Motor activity appropriate. Speech within normal limits. Affect congruent, mood anxious and depressed. Thoughts linear, logical, no signs of hallucinations or delusions. Client Response/Progress/Benefit: []Client receptive to session AEB contributing to discussion, which is progress for pt, as well listening attentively to others. Taking notes. Worked with group to brainstorm the positive and negative aspects of stress on physical and mental health. Group did well to identify the benefits of stress as well as the impact of distress on performance and mental health. Client identified their personal top stressors as: caregiving responsibilities when aiding her brother, managing her mental health, and ongoing physical health issues. Client reports when the stress overflows client reacts with isolating, increased irritability, and ?moodiness?. Client seemed to benefit from increased awareness of current stressors and impact stress has on mental health. Recommended to continue IOP tx to stabilize moods, reduce depression, and prevent decompensation. Narrative Note: []
--- NOTE | 2022-07-27 11:15 | BH.SGPN.GN ---
Behaviors/Verbalizations/Mental Status: []Pt alert and oriented, casually dressed and groomed. Eye contact fair. Motor activity appropriate. Speech within normal limits. Affect constricted, mood dysthymic. Thoughts linear, logical, no signs of hallucinations or delusions. Client Response/Progress/Benefit: []Pt participated at times during group discussions. Attentive during psychoeducation on the 4 A's of Coping with Stress (Avoid, Alter, Adapt, Accept). Participated in experiential activity in which group members had to utilize stress management skills in the moment. Pt did well to problem-solve and express ideas to peers. Pt engaged in review of the 4 A?s and picked wanting to work on adapting how she views success and challenge her expectations of self. Benefited from processing in the moment stress management strategies and identifying new ways to cope with stress. Will continue in IOP tx to prevent decompensation, increase healthy boundaries and use of healthy coping skills, and improve mood stability.
--- NOTE | 2022-07-30 09:00 | BH.SGPN.GN ---
Behaviors/Verbalizations/Mental Status: []Pt alert and oriented, casually dressed and groomed. Eye contact good. Motor activity appropriate. Speech within normal limits. Affect congruent, mood nervous. Thoughts linear, logical, no signs of hallucinations or delusions. Reviewed pt?s symptom tracker, no risk for suicidal ideation, plan, or intent as of 07/30/22 Client Response/Progress/Benefit: []Pt responded well to session, attentive and engaged. Pt reports feeling nervous this morning as pt is feeling giddy and better and that's scary. Pt shared she is not sure if her improved mood is due to her medication change or because she is finally closing a chapter on her wound treatment. Pt reported her mother expressed worry as well which pt stated can lead to self-doubt. Pt appeared to benefit from reflecting on her improved mood and gentle thought challenging on self-sabotage. Pt will continue IOP tx to prevent decompensation, improve distress tolerance skills, and reduce self-harm. Narrative Note: []
--- NOTE | 2022-07-30 10:10 | BH.SGPN.GN ---
Behaviors/Verbalizations/Mental Status: [] Eye contact is poor. Motor activity is appropriate. Appearance is casual. Speech is Appropriate. Mood is depressed. Affect is flat. Thoughts are linear and logical. No evidence of psychosis. Client Response/Progress/Benefit: [] Pt participated when prompted. Attentive during psychoeducation. Attentive as peers defined locus of control and provided examples of internal and external locus of control. Attentive during interactive discussion between group members and therapist on characteristics of internal locus of control which included; takes responsibility for actions, less influenced by others and increased confidence. Attentive as peers identified external locus of control characteristics which included; others have more influence and control, decreased motivation to make changes if one believes that mood/thoughts/self-esteem are based on others. Active and engaged during experiential activity and was able to see correlations between activity and emotions/perspectives associated with internal vs external locus of control. Benefited from increased insight and awareness of internal vs external locus of control and how this could impact mental health. Will continue in IOP to prevent decompensation/re-admission to medical units for self-harm, increase healthy coping, and improve functioning. Narrative Note: []
--- NOTE | 2022-07-30 11:37 | BH.MDN ---
Multi-Disciplinary Note - Note 30-min Individual Time Started:: 11:08 Date: 07/30/22 Purpose of session/treatment goals addressed:: Purpose of session was to address goals 1 and 2 from [facility]. Eye Contact:: Fair Motor Activity:: Appropriate Appearance:: Casual Speech:: Appropriate Mood:: Euthymic, Anxious Affect:: Congruent Thoughts:: Linear, Logical, No evidence of hallucinations/delusions noted Staff Interventions:: psychoeducation on: - factitious disorder, CBT techniques, mindfulness skills, rapport building, strengths perspective, taught coping skills - DBT pros/cons list, engaging senses and ACCEPTS distraction handout, other - created plan for upcoming holiday Client Response:: Client reported overall she has been doing really well. Client stated she is a little worried about feeling and doing so well. Client shared her mom expressed anxiety that client was too good and that meant the client was getting ready to attempt to kill self. Client stated was able to express no desire to kill herself and also was having a hard time feeling better. Client reported she still has daily thoughts of self-harm and suicide but denies intent or plan. Client said this is long she has been out of the hospital without having thoughts of wanting to return to the hospital in a long time. Client agreed having a medical scare with having a heart infection last time she was hospitalized is contributing to her not wanting to be hospitalized again. Client stated she believes this fear is helping her refrain from engaging in self-harm behaviors. Client reported she had a appointment with her surgeon who said the wound is completely healed. Client stated having no wounds currently is also helpful in preventing her from engaging in any behaviors that would cause infection. Client receptive to learning about fictitious disorder and could connect with the idea of engaging in this behavior as a way to manage stress in the moment. Client also connected with psychoeducation about impact her trauma can have on development of fictitious disorder. Client agreed having education about fictitious disorder is helpful. Client reported she does have a family event this weekend and is feeling anxious because people will be at her house. It would work with therapist to develop plan in which she can take a break in her bedroom to either cross stitch or be with her dogs. Client stated she believes this would be helpful for her in management of stress throughout the gathering. Client is receptive to learning about her survival skills of pros cons list, distraction skills, and engage in senses. Client agreeable to utilize given material if having increased urges to harm self. Risks/Concerns:: Pt reports chronic thoughts of suicide and self-harm, denies current intention or plan. Future oriented. Expresses ability to keep self safe. Progress Toward Goals/Plan:: Progress noted with client not engaging in self-harm behaviors or picking at her wound. Client reported not having desire to return to the hospital which is something she hasn't experienced in a long time. Client continues to report stress at home, but has been able to manage. Client did not go to [employer]'s house last week as discussed but was able to hang out with her dad and brother, which she found enjoyable. Client is to continue IOP to continue use of healthy coping, maintain safety, and prevent decompensation. Time Stopped:: 11:35
--- NOTE | 2022-08-04 09:05 | BH.SGPN.GN ---
Behaviors/Verbalizations/Mental Status: [] Eye contact is poor. Often closes eyes when she talks. Motor activity is appropriate. Appearance is casual. Speech is Appropriate. Mood is depressed. Affect is flat. Thoughts are linear and logical. No evidence of psychosis. Reviewed daily check in sheet and pt reports 3/5 for suicidal ideations and 2/5 for risk. This is baseline for patient. Client Response/Progress/Benefit: [] Pt participated when prompted. Attentive. Mental health wins were I didn't isolate that much over the holidays. Shared that she spend most of xmas maria luisa with her family. She shared some conflict with certain family members which can make holidays very overwhelming. Shared that she has not self-harmed in over a month. She was asked what skills have been most effective and she reports fear of ending up back in the hospital, surgery, and getting sick. (Numerous medical admissions and surgeries due to self-harm). She talked about future career goals and also about being on a waiting list for residential treatment. She has called the facility numerous times to check the status of her placement however has not recieved a call back. She is working with her patient case manager through her insurance to find placement. I like it here I just know I need more to keep myself safe. Benefited from group support, encouragement, and feedback. Will continue in IOP to maintain safety, prevent re-admission/decompensation, to improve functioning, and to increase healthy coping. Narrative Note: []
--- NOTE | 2022-08-04 10:10 | BH.SGPN.GN ---
Behaviors/Verbalizations/Mental Status: []Pt alert and oriented, casually dressed and groomed. Eye contact good. Motor activity appropriate. Speech within normal limits. Affect constricted, mood euthymic. Thoughts linear, logical, no signs of hallucinations or delusions. Client Response/Progress/Benefit: []Attentive during psychoeducation on SMART (Specific, Measurable, Achievable, Realistic, Timely) goals AEB by note-taking. Attentive during group discussion on benefits to setting goals which group identified as; reduced anxiety, increased motivation, better relationships, and increase confidence. Attentive while peers identified obstacles to setting/completing goals which included; procrastination, mental health, believing they are too difficult, procrastination, self-doubt, and poor time management. Engaged during activity and was able to relate the activity to goal-setting topic. Benefited from increased awareness on benefits to goal-setting, obstacles to developing and following through with a goal, and strategies for setting goals. Will continue in IOP to prevent rehospitalization, reduce self-harming urges, and improve mood stability. ? Narrative Note: []
--- NOTE | 2022-08-04 11:10 | BH.SGPN.GN ---
Behaviors/Verbalizations/Mental Status: []Eye contact good. Alert and oriented. Motor activity is appropriate. Appearance is casual, grooming appropriate. Speech Appropriate. Mood is depressed and anxious. Affect is congruent. Thoughts are linear and logical. No evidence of psychosis or hallucinations. Client Response/Progress/Benefit: []Client was attentive during discussion and engaged in activity portions of group. Willing to complete the worksheet challenging each participant to develop a personal SMART goal. Client chose the goal of going to bed no earlier than 8pm each day for the next week. Client stated this will benefit them by aiding in reducing use of sleep as distraction, increase use of distress tolerance skills, and detention improved sleep habits. Client identified barriers which included: self-harm thoughts, physically feeling ill, and a desire to avoid confrontation. Client receptive to identifying solutions for these barriers and willing to begin working on this goal. Benefited from this group by developing a short-term SMART goal related to mental health. Will continue IOP tx to further improve mood management, increase consistency of healthy emotion regulation/distress tolerance skills, and prevent decompensation. Narrative Note: []
--- NOTE | 2022-08-06 09:05 | BH.SGPN.GN ---
Behaviors/Verbalizations/Mental Status: [] Eye contact is poor. Motor activity is appropriate. Appearance is casual. Speech is Appropriate. Mood is depressed. Affect is flat. Thoughts are linear and logical. No evidence of psychosis. Reviewed daily check in sheet and pt reports 3/5 for suicidal thoughts and 35 for suicidal intent. These are baseline scores for patient since starting IOP. Client Response/Progress/Benefit: [] Pt participated at times during the group discussion. Participated in group mindfulness exercise (5 senses). Daily symptom tracker notes 4/5 for depression, 2/5 for anxiety and 4/5 for self-harm urges. Mental health win was managing urges to self-harm last night. Pt reports that she utilized support to helpf with urges and it went well. In the past when she discussed her urges with her mother it would lead to gaslighting and her mother being anger or dismissive. Reports last night her mother was supportive and understanding which helped a lot. Her stressor is that she meets with a new psychiatrist tomorrow and is nervous that they will change her medication and make things worse. Group worked to reframe these thoughts. Pt also reports that its stressful and overwhelming to meet new providers as she has to recount her struggles. Group was empathetic which was beneficial. Will continue in IOP to maintain safety, prevent decompensation/re-admission, and to increase functioning. Narrative Note: []
--- NOTE | 2022-08-06 10:05 | BH.SGPN.GN ---
Behaviors/Verbalizations/Mental Status: []Eye contact is good. Alert and oriented. Motor activity is appropriate. Appearance is casual. grooming is appropriate. Speech is Appropriate. Mood is depressed and anxious. Affect is congruent. Thoughts are linear and logical. No evidence of psychosis or hallucinations. Client Response/Progress/Benefit: []Client active participate AEB listening attentively to others and providing contributions throughout. The group identified impacts of not managing emotions on communication as lashing out, stone-walling, not retaining information, and monopolizing the conversation. Client stated she has struggled with either shutting down or lashing out when upset, noting this has had negative impacts on her self-esteem and ability to resolve the issue at hand in the past. Client engaged in activity, able to manage emotions in the moment. Client benefited from session to gain understanding on the importance of managing emotions to improve daily functioning. Client will continue IOP to increase use of healthy distress tolerance skills, challenge negative thoughts, and prevent decompensation. Narrative Note: []
--- NOTE | 2022-08-06 11:15 | BH.SGPN.GN ---
Behaviors/Verbalizations/Mental Status: []Pt alert and oriented, casual appearance. Eye contact fair. Motor activity appropriate. Speech within normal limits. Affect constricted, mood dysthymic. Thoughts linear, logical, no signs of hallucinations or delusions. Client Response/Progress/Benefit: []Pt engaged in session AEB pt listening attentively to peers, taking notes, and providing input at times. Attentive during psychoeducation on 4 zones of regulation. Pt able to identify feelings and behaviors pt exhibits for each zone.? Pt identified coping skills one can use to support self in each zone. Pt reported she connects with being in the yellow and blue zones most often. Pt identified coping skills willing to practice to include: listening to uplifting music and healthy venting of emotions/thoughts. Benefited from increased education on zones of regulation or stages of alertness for emotions and healthy coping skills to use for each zone. pt to continue IOP to maintain safety, increase independence, and prevent decompensation.
--- NOTE | 2022-08-07 09:05 | BH.SGPN.GN ---
Behaviors/Verbalizations/Mental Status: []Pt alert and oriented, disheveled appearance. Eye contact good. Motor activity appropriate. Speech within normal limits. Affect constricted, mood anxious and depressed. Thoughts linear, logical, no signs of hallucinations or delusions. Reviewed pt?s symptom tracker and pt denies any active SI, plan, or intent as of 08/07/22. ? Client Response/Progress/Benefit: [] Pt responded well to session, receptive to feedback. Pt reports feeling withdrawn this morning due to ongoing stressors with her mother. Pt shared she wanted to isolate and not come to IOP today, but pt shared she used opposite action. Pt also reported that she had urges to cut last night, but pt refrained from this which was significant for pt. Pt has a long-standing history of self-harm and pt has been demonstrating more consistent progress with reducing self-harm. Pt appeared to benefit from connecting with peers and getting encouragement. Pt will continue IOP tx to prevent rehospitalization, increase distress tolerance, and improve mood stability. Narrative Note: []
--- NOTE | 2022-08-07 10:10 | BH.SGPN.GN ---
Behaviors/Verbalizations/Mental Status: Client alert and oriented, casually dressed and disheveled in appearance. Eye contact fair. Motor activity appropriate. Speech within normal limits. Affect constricted, mood dysthymic, anxious. Thoughts linear, logical, no signs of hallucinations or delusions. Client Response/Progress/Benefit: [Client responded well to session, attentive and participating in discussion. Participated in discussion of things that can keep people feeling trapped or stuck in life including: isolation, past experiences, negative perspective, and low self-esteem. Group discussed the connection between thoughts, emotions, and behaviors as well as how negative thinking can keep a person stuck. Client attentive during psychoeducation on maintenance cycles. Client able to identify negative thoughts that have reinforced depression and kept client feeling trapped. Client shared a negative thought maintaining depression is I'm worthless and nothing matters. Stated this thought can lead to self-harm. Appeared to benefit from gaining awareness of how negative thoughts reinforce mental health symptoms and keep people stuck. Client to continue IOP to improve use of healthy coping, challenge distortions, and prevent decompensation.
--- NOTE | 2022-08-07 10:13 | BH.MDN ---
Multi-Disciplinary Note - Note 30-min Individual Time Started:: 08:45 Date: 08/07/22 Purpose of session/treatment goals addressed:: Purpose of session was to address goals 1 and 2 from MTP. Eye Contact:: Fair Motor Activity:: Restless Appearance:: Casual Speech:: Appropriate Mood:: Dysthymic Affect:: Constricted Thoughts:: Linear, Logical, No evidence of hallucinations/delusions noted Staff Interventions:: thought challenging, CBT techniques - costs-benefits worksheet, rapport building, strengths perspective, goal setting - to do 15 minutes of cross-stitch daily to engage in behavior activation Client Response:: Client reported not doing very well this morning. Client stated she was having thoughts of self-harming last night and had found a razor blade in her car. Client reported she did not self-harm last night, reported her dog distracted her. Client reported she has been struggling since the day after [place] with decline in mood, increased suicidal thoughts, increased self-harm thoughts, low motivation, and desire to do nothing. Pt reported she has been having a harder time engaging in cross-stitch because of low motivation. Pt stated no apparent trigger to these symptoms. Agreed mood could be impacted due to the fun of the holidays ending. Pt reported two days ago she was struggling and had went to her mom asking for help. Pt stated playing a game with her mom was helpful because it provided a healthy distraction. Pt worked with therapist to complete a cost-benefits analysis about urges to self-harm. Pt identified costs of giving into urges to include: temporary relief, could cause infection, could lead to hospitalization, and loss of mom's trust. Pt identified benefits of giving into urges to self-harm includes feeling something and relief from giving into urges. Pt recognizes there are more costs then benefits to giving into urges to self-harm. Identified when has urges to self-harm she can reach out to her mom, engage in healthy distraction skills, and get out of her bedroom. Agreeable to dispose of the razor blade. Risks/Concerns:: Client reporting thoughts of self-harm and thoughts of suicide. Client states she feels able to keep herself safe and agreeable to get rid of the razor blade that's in her bedroom. Client denies suicidal intention or plan. Progress Toward Goals/Plan:: Progress noted with client being able to manage increased self-harm and suicidal thoughts. Recent decline in mood, low motivation, increased self-harm thoughts, increased suicidal thoughts, and not wanting to do anything. Pt has been able to manage increased symptoms without action on her urges. Client agreeable to follow through with plan of getting back to things that had been helping her last week like cross stitch, playing with her dogs, and if needed going to spend time with her grandma. Client stated she feels able to keep herself safe. Client to continue IOP to increase consistent use of healthy coping skills, challenge distorted thoughts, and prevent decompensation. Time Stopped:: 09:20
--- NOTE | 2022-08-07 11:05 | BH.SGPN.GN ---
Behaviors/Verbalizations/Mental Status: []Client alert and oriented, casually dressed and grooming appearing dishevelled. Eye contact good. Motor activity appropriate. Speech within normal limits. Affect constricted, mood anxious and depressed. Thoughts linear, logical, no signs of hallucinations or delusions. Client Response/Progress/Benefit: []Client responded well to session, contributing to discussion when prompted, and attentive throughout discussion. Client identified a negative thought that has kept them stuck. Client's thought was I?m worthless?. Client reported when they think this way, they withdraw, cry, or self-harm. Client worked to reframe the thought by finding more rational, realistic ways to look at the thoughts and then processed within group setting. Client reframed the thought to ?There are several times where I have been a helpful person?. Client stated she will continue to try and remind herself of times she has supported others to continue challenging negative self-talk. Client appeared to benefit from practicing challenging negative thinking. Client will continue IOP tx to increase overall functioning and prevent decompensation. Narrative Note: []
== END 2022-08-08 23:59 ==
LOC: BHIOP 08:00
PROVIDERS: PCP Student in an Organized Health Care Education/Training Program; Referring Provider Psychiatry & Neurology Psychiatry; Visit Provider Psychiatry & Neurology Psychiatry
DX: F33.2 Major depressive disorder, recurrent severe without psychotic features (principal); F60.3 Borderline personality disorder; F41.1 Generalized anxiety disorder; R56.9 Unspecified convulsions; Z79.899 Other long term (current) drug therapy
CPT/HCPCS: 90792; H2012; H2020; S9480; T1002; 90832

== ENCOUNTER 2022-08-11 07:30 | Outpatient (RCR) | payer MEDICAID, SELFPAY ==
[2022-08-09 00:38] VITALS: BP 157/97; PULSE 111
--- NOTE | 2022-08-11 09:00 | BH.SGPN.GN ---
Behaviors/Verbalizations/Mental Status: []Eye contact fair to good, casually dressed, motor activity appropriate, speech normal rate and tone, mood anxious and depressed, congruent affect, thoughts linear and intact, no evidence of delusions or hallucinations. Reviewed pt's symptom tracker, reports suicidal ideation within pt baseline and denies active plan or intent as of this date 08/11/22. Client Response/Progress/Benefit: []Pt responded well to session, attentive and providing supportive feedback throughout. Pt reports feeling numb this morning as she has recently had several stressors impacting her mood. Identified a recent stressor as engaging in self-harming behaviors over the weekend. Shared that has created more strain in her relationship with her mother as well as resulted in increased negative self-talk. Pt did well to identify positives which included being honest with her supports and turning over the blade. As well as, beginning to make strides on a recent goal she has set for herself to begin reading the bible daily. Noted doing so 3/3 days in August so far. Appeared to benefit from group discussion and supportive environment. Recommended continued IOP tx to continue to improve consistency of healthy skill application, promote mood stability, as well as prevent decompensation. Narrative Note: []
--- NOTE | 2022-08-11 10:15 | BH.SGPN.GN ---
Behaviors/Verbalizations/Mental Status: []Pt alert and oriented, disheveled appearance. Eye contact good. Motor activity appropriate. Speech within normal limits. Affect congruent, mood dysthymic. Thoughts linear, logical, no signs of hallucinations or delusions. Client Response/Progress/Benefit: []Pt responded well to session, contributing to discussion and engaged during the activity. Pt identified the benefits of change which included less toxicity and new opportunities. Worked with the group to identify barriers to change and pt identified personal barrier as fear of the unknown. Pt participated along with group in activity where they identified and discussed the emotions related to change. Pt participated in discussion on the change process and personal experiences with implementing change in past. Benefited from increased awareness and understanding of emotions, benefits, and barriers related to change. Will continue IOP tx to reduce self-harm, increase distress tolerance skills, and improve daily functioning. Narrative Note: []
--- NOTE | 2022-08-11 14:11 | BH.MDN ---
Multi-Disciplinary Note - Note 30-min Individual Time Started:: 11:05 Date: 08/11/22 Purpose of session/treatment goals addressed:: Purpose of session was to address goals 1 and 2 from MTP. Eye Contact:: Fair Motor Activity:: Restless Appearance:: Disheveled Speech:: Appropriate Mood:: Dysthymic Affect:: Constricted, Other - inappropriate at times AEB pt smiling when talking about self harming Thoughts:: Linear, Logical, No evidence of hallucinations/delusions noted Staff Interventions:: thought challenging, CBT techniques, strengths perspective, goal setting, other - future oriented discussion; reviewed healthy coping skills Client Response:: Client reported on she was struggling with negative thoughts and had increased urges to self-harm. Client stated she made about 28 superficial cuts to her harm. Client reported she had been reflecting about the past year and it made her feel upset which was the trigger to her self-harming. Client stated she had tried several healthy coping skills like grounding, 5 senses, and meditation before she self-harmed. Client reported feeling upset with herself for giving in to the urges because she knows it didn't solve any of her problems. Client stated she had not given the razor blade to her mom on Wednesday as discussed last session because her mom appeared to be in a bad mood and she didn't want to start a fight. Client reported she was honest with her mom about what she had done the next day and gave her mom the razor blade. With therapist help she realizes although she engaged in an unhealthy skill she did make a positive step of being honest with both her mom and therapist. Client stated after self-harming she has not had any increased thoughts of wanting to make her cuts worse or thoughts of wanting to be hospitalized. Client reported besides the negative skill on she noted her mood had been better. Client reported yesterday she did follow through with goal of cross stitching. She also went to [employer] and pet store for healthy distraction. Client identified goal for the week is to get cross stitch supplies organized and finish her grandma's cross stitch gift. Risks/Concerns:: Client relapsed with self-harm over the weekend for first time in a couple of weeks. Client did give her razor to her mom so she doesn't engage in that behavior again. Client expresses remorse for reverting back to old ways and reported doesn't have any increased urges to hurt herself. Client states feels able to keep herself safe. 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 Progress Toward Goals/Plan:: Decompensation in treatment progress with client reverting back to unhealthy coping skill of self-harm. However, progress can still be noted with her being honest about self-harm with her mom and therapist. Client also had attempted to use healthy skills prior to self-harming which notes progress because this isn't something client had done in the past. Client denies increased thoughts to harm herself and hasn't had any obsessive thoughts to return to the hospital by making her wounds worse. Client expressed desire to explore a residential program in [place]. Therapist provided client with information and admissions phone number if she would like to move to higher level of care. Client stated she will talk with her mom about the option. Client to continue IOP to increase consistent use of healthy coping, challenge distortions, and prevent decompensation. Time Stopped:: 11:30
--- NOTE | 2022-08-12 13:32 | BH.TPR ---
Treatment Plan Review Date of Admission:: 07/20/22 Date of Treatment Plan Review:: 08/12/22 Admitting Diagnoses:: 1. Major depressive disorder, recurrent, severe without psychosis F33.2. 2. Borderline personality disorder. 3. Generalized anxiety disorder. 4. Factitious disorder. 5. History of pseudoseizure conversion disorder Current Diagnoses:: 1. Major depressive disorder, recurrent, severe without psychosis F33.2. 2. Borderline personality disorder. 3. Generalized anxiety disorder. 4. Factitious disorder. 5. History of pseudoseizure conversion disorder Patient's Response to Treatment:: Pt consistently attends IOP sessions. Pt if quiet during group sessions, however does appear to be actively listening, completes in session worksheets, and often takes notes. Pt engages in individual therapy sessions AEB openly sharing thoughts and feelings and following through with homework. Status of Current Problems and Symptoms: Ongoing problems. Pt had recent setback over the weekend in which she self-harmed for the first time in several weeks. Pt was honest about the relapse and gave her razor to her mom so she doesn't harm self again. Prior to this relapse pt had been doing showing significant progress with reporting improved mood, decreased anxiety, and improved motivation. Despite recent relapse progress can be noted with pt focusing on moving forward and not staying stuck on her relapse. Pt is considering going to a residential facility still because she is worried her self-harm and desire to get hospitalized will happen again. Pt's thoughts of hurting self has increased by 50% since admission. Pt's overall symptoms decreased by 41% per DSM 5 cross cutting measure at review. Problem #1 Problem Name:: Depression Status of Goals:: Obj 1 - partially met, ongoing work encouraged. Pt is able to identify healthy coping skills of opposite action, cross stitching, playing with dog, talking with mom, and getting out of the house. Pt struggles with consistent application of skills. Obj 2 - Not met. Per DSM 5 at review pt's depressive symptoms increased by 20%. Team Recommendations:: Team recommends pt continue current goals and objectives to reinforce healthy skills, increase consistency of skills, and prevent further decompensation. Problem #2 Problem Name:: Anxiety Status of Goals:: Obj 1 - partially met, ongoing work encouraged. Pt is able to identify calming skills of belly breathing, 5 senses, and guided meditation. Pt struggles with consistent application of skills. Obj 2 - Partially met. Per DSM 5 cross cutting measure at review pt's anxiety symptoms decreased by 33%. Team Recommendations:: Team recommends pt continue current goals and objectives to reinforce healthy skills, increase consistency of skills, and prevent further decompensation.
--- NOTE | 2022-08-13 09:03 | BH.SGPN.GN ---
Behaviors/Verbalizations/Mental Status: []Eye contact fair to good, casually dressed, motor activity appropriate, speech normal rate and tone, mood anxious and euthymic, congruent affect, thoughts linear and intact, no evidence of delusions or hallucinations. Reviewed pt's symptom tracker, reports suicidal ideation within pt baseline and denies active plan or intent as of this date 08/13/22. Client Response/Progress/Benefit: []Pt responded well to session, attentive and providing supportive feedback throughout. Pt reports feeling mellow this morning. Identified current mental health wins as using opposite action to get here and challenging herself to first utilize more healthy coping skills rather than return to unhealthy coping habits when experiencing increased stress or urges to self-harm. Current stressor noted as having to deal with uncomfortable when switching to a new outpatient psych provider. Able to identify skills she can use and helpful things to remind herself of in order to advocate for herself as well as prevent catastrophizing. Recommended continued IOP tx to continue to improve consistency of healthy skill application, continue to improve consistent mood stability and application of distress tolerance skills, as well as prevent decompensation. Narrative Note: []
--- NOTE | 2022-08-13 10:05 | BH.SGPN.GN ---
Behaviors/Verbalizations/Mental Status: []Pt alert and oriented, disheveled appearance. Eye contact good. Motor activity appropriate. Speech within normal limits. Affect constricted, mood calm. Thoughts linear, logical, no signs of hallucinations or delusions. Client Response/Progress/Benefit: []Pt was an active participant in group discussions. Attentive during psychoeducation and participated in interactive discussions in which group defined self-care, discussed the benefits to self-care, and identified common myths surrounding self-care. Pt shared that self-care is challenging because it feels ?selfish?. Pt and peers broke into smaller group and worked together to bust the myths associated with self-care. Pt?s group worked on myths of self-care means avoiding responsibilities, self-care is weakness, and self-care is just basic needs. Benefited from increased awareness of the self-care and its benefits. Progress noted in pt?s increased resilience when pt experiences a setback. ?Will continue in IOP to prevent rehospitalization, reduce self-harming behaviors, and improve distress tolerance skills. ? Narrative Note: []
--- NOTE | 2022-08-13 11:10 | BH.SGPN.GN ---
Behaviors/Verbalizations/Mental Status: []Pt alert and oriented, casually dressed and groomed. Eye contact fair. Motor activity appropriate. Speech within normal limits. Affect congruent, mood anxious and dysthymic. Thoughts linear, logical, no signs of hallucinations or delusions. Client Response/Progress/Benefit: []Pt engaged participant AEB completing self-assessment worksheet and providing some input throughout discussion. Participated in group discussion on the various areas of self-care. Pt completed worksheet identifying current self-care practices and what self-care activities pt wants to start using. Pt selected social self-care to begin practicing more consistently. Pt plans to do this by going out with supports, instead of saying no. Appeared to benefit from completing the self-care evaluation and gaining insights into current self-care practices, as well as identifying areas in which she would like to improve upon. Will continue IOP tx to consistently apply healthy coping skills, improve confidence, and prevent decopmensation.
--- NOTE | 2022-08-13 11:57 | BH.MDN ---
Multi-Disciplinary Note - Note 30-min Individual Time Started:: 11:05 Date: 08/11/22 Purpose of session/treatment goals addressed:: Purpose of session was to address goals 1 and 2 from MTP. Time Stopped:: 11:30
--- NOTE | 2022-08-14 09:05 | BH.SGPN.GN ---
Behaviors/Verbalizations/Mental Status: [] Eye contact is good. Motor activity is appropriate. Appearance is disheveled. Speech is Appropriate. Mood is depressed. Affect is flat. Thoughts are linear and logical. No evidence of psychosis. Reviewed daily check in sheet and pt reports 3/5 for suicidal ideations and 2/5 for intent. This is baseline. Client Response/Progress/Benefit: [] Pt was an active participant in group discussions. Attentive. Emotion for today is gloomy. Daily symptom tracker notes 3/5 for depression and self-harm urges which are slightly below baseline. Pt shared that she did well last night because I was home alone. Shared that when her family is present there is a lot of noise. Shared that the house can be very loud and hectic which can trigger irritability, restlessness, and anxiety. This AM she cleaned her room which is difficult for me. Shared that this cleanliness and organization of her room has been a major issues between her and her mother for years. She was more engaged in group than normal and appears to be more comfortable in small groups. Provided appropriate feedback to peers. Benefited from group support, encouragement, and feedback. Will continue in IOP to maintain safety, prevent decompensation/re-admission, and to increase healthy coping skills. Narrative Note: []
--- NOTE | 2022-08-14 10:08 | BH.SGPN.GN ---
Behaviors/Verbalizations/Mental Status: []Pt alert and oriented, casually dressed and groomed. Eye contact good. Motor activity appropriate. Speech within normal limits. Affect congruent, mood euthymic. Thoughts linear, logical, no signs of hallucinations or delusions. Client Response/Progress/Benefit: []Pt was engaged participant AEB pt listening attentively to others and nodding. Attentive during psychoeducation on communication styles. Assisted group with identifying barriers of effective communication which included: mind-reading, body language, communicating with behaviors, and being vague. Pt reports that she most often uses passive or passive aggressive communication. Pt shared that when she used passive aggressive communication it leads to pt feeling guilty and not getting needs met. Benefited from increased awareness of different communication barriers, styles, and the importance of communicating effectively to improve mental wellness. Will continue IOP tx to improve distress tolerance skills, reduce self-harm urges, and improve daily functioning. Narrative Note: []
--- NOTE | 2022-08-14 11:10 | BH.SGPN.GN ---
Behaviors/Verbalizations/Mental Status: []Client alert and oriented, casually dressed and appropriately groomed. Eye contact fair. Motor activity appropriate. Speech WNL. Affect constricted, mood anxious. Thoughts linear, logical, no signs of hallucinations or delusions. Client Response/Progress/Benefit: []Client responded well to session AEB client listening attentively to others and providing input during group discussion on the pay offs and costs of the different communication styles. Client able to connect how current communication style impacts mental health. Client engaged in activity, used assertive communication throughout in order to accomplish task. Connected with peers comments about importance of using assertive communication. Client reported she wants to be honest with supports when asked how she is doing at least once in the next week. Client seemed to benefit from increasing awareness of healthy strategies to improve communication. Will continue IOP tx to increase consistent use of healthy skills, challenge distortions, and prevent decompensation.
--- NOTE | 2022-08-17 09:00 | BH.SGPN.GN ---
Behaviors/Verbalizations/Mental Status: []Pt alert and oriented, casually dressed and groomed. Eye contact good. Motor activity appropriate. Speech within normal limits. Affect constricted, mood disconnected. thoughts linear, logical, no signs of hallucinations or delusions. Reviewed pt?s symptom tracker, no risk for suicidal ideation, plan, or intent as of 08/17/22. Pt's scores are within her baseline. Client Response/Progress/Benefit: []Pt responded well to session, attentive and engaged. Pt reports feeling dejected this morning due to her grandmother's dog passing away over the weekend. Pt received emotional support from the group and appeared to benefit from the discussion on loss and grief. Pt shared over the weekend she wanted to cut, but stopped herself and played with her dogs instead. Pt also plans to go to town today as opposite action and to get more supplies from the craft store. Pt shared she wants to isolate, but pt knows this will make her depression worse. Progress noted in pt's use of distress tolerance skills over the weekend. Pt will continue IOP tx to promote use of healthy coping skills, reduce self-harm urges, and improve daily functioning. Narrative Note: []
--- NOTE | 2022-08-17 10:10 | BH.SGPN.GN ---
Behaviors/Verbalizations/Mental Status: []Eye contact is fair. Motor activity is appropriate. Appearance is casual and grooming tended to. Speech is Appropriate. Mood is anxious.. Affect is congruent. Thoughts are linear and logical. No evidence of psychosis. Client Response/Progress/Benefit: []Client receptive of session, actively engaged throughout AEB taking notes and providing input and examples to discussion. Appeared to connect with group topic of cognitive distortions and the impact of thought patterns on mental health, coping behaviors, and relationships. Reflected that she personally connects with mental filter. Client reported she will filter out the positives and focus on her negatives. Client reported she will think I didn't cut today, but I did cut last week. Client able to connect negative impact not giving self credit can have on her mental health. Client appeared to benefit from gaining insight on distorted thinking patterns and how this impacts overall mental health. Progress noted in client report of improved insight into her own distorted thinking patterns. Will continue IOP tx to increase consistent use of healthy coping skills, challenge negative thinking, and prevent decompensation.
--- NOTE | 2022-08-17 11:10 | BH.SGPN.GN ---
Behaviors/Verbalizations/Mental Status: []Eye contact is good. Motor activity is appropriate. Appearance is casual. Speech is Appropriate. Mood is euthymic. Affect is congruent. Thoughts are linear and logical. No evidence of psychosis. Client Response/Progress/Benefit: []Pt was an active participant in the group activity which involved working with peers to answer questions related to psychoeducation on cognitive distortions. Questions were posed in the fashion of Jeopardy and the categories included; Identifying the Cognitive Distortion, Ways to reframe cognitive distortions, Examples of cognitive distortions, and other areas related to cognitive distortions. This was an engaging way to help reinforce psychoeducation and to help client retain the information through examples and practicing. Pt was engaged in the game and with peers on collaborating to determine the answers. Identified one take away from the group as ?wanting to work on not labelling myself or others?. Benefited from rehearsing ways to challenge/reframe cognitive distortions and by gaining increased insight into examples/definitions of 10 most common cognitive distortions. Will continue in IOP to maintain gains and prevent decompensation. Narrative Note: []
--- NOTE | 2022-08-20 09:05 | BH.SGPN.GN ---
Behaviors/Verbalizations/Mental Status: [] Eye contact is good. Motor activity is appropriate. Appearance is disheveled. Speech is Appropriate. Mood is euthymic. Affect is full. Thoughts are linear and logical. Client Response/Progress/Benefit: [] Pt participated at times during the group discussion. Attentive. Emotion for today is withdrawn. Shared with the group that she missed IOP yesterday due to a side effect from her new heart medication. Shared that her heart dropped significantly which essentially caused her to get light-headed. Reached out to supervisor bonding and issues was resolved. Admits that it was concerning, however denies that she experienced any significant anxiety or distress. Her mental health win was to get here today. Reports that she utilized opposite-action yesterday as she visited [email or web address] and picked up supplies for a [employer] project and it just made me happy. Insight on how this simple task was very beneficial to her overall mental health yesterday. Stressor is that her GMA is ill and had to be taken to the hospital. Benefited from group support, encouragement, and feedback. Will continue in IOP to maintain safety, prevent decompensation/re-admission for self-harm, and to increase healthy coping strategies. Narrative Note: []
--- NOTE | 2022-08-20 10:10 | BH.SGPN.GN ---
Behaviors/Verbalizations/Mental Status: []Pt alert and oriented, casually dressed and groomed. Eye contact good. Motor activity appropriate. Speech within normal limits. Affect congruent, mood anxious. Thoughts linear, logical, no signs of hallucinations or delusions. Client Response/Progress/Benefit: []Pt responded well to session AEB taking notes throughout, providing input when prompted,and listening attentively to others. Pt was engaged throughout group activity identifying famous individuals and how they overcame failure to be successful. Pt helped group identify how fear of failure can impact mental health and relationships. Pt personally identified that fear of failure has resulted in having a lot of what if thoughts and then remaining stagnant rather than challenging herself to try something different. Pt participated in experiential activity and used group for support as needed. Appeared to benefit from increased knowledge of fear of failure. ?Will continue IOP tx to prevent decompensation, promote healthy coping behaviors, and increase mood stability. ? Narrative Note: []
--- NOTE | 2022-08-20 15:38 | BH.MDN ---
Multi-Disciplinary Note - Note 45-min Individual Time Started:: 11:15 Date: 08/20/22 Purpose of session/treatment goals addressed:: Purpose of session was to address goals 1 and 2 from MTP. Eye Contact:: Fair Motor Activity:: Appropriate Appearance:: Casual Speech:: Appropriate Mood:: Dysthymic Affect:: Constricted Thoughts:: Linear, Logical, No evidence of hallucinations/delusions noted Staff Interventions:: thought challenging, motivational interviewing, CBT techniques, discharge planning, strengths perspective, other - reviewed healthy coping skills Client Response:: Client reported things have been going okay. Stated she isn't sure her one medication is helping with intrusive thoughts as much as it had. Client stated she has been having increased self-harm thoughts that don't go away as easily. Client stated she does think the thoughts are more intrusive because the thoughts will come out of nowhere like if she is using a knife she will have a thought I could cut myself right now. Client stated her lamictal had been helping with these thoughts, but is seeing an increase. Responded well to psychoeducation about intrusive thought patterns. Receptive to technique of identifying those thoughts as intrusive thoughts as they pop up instead of trying to avoid the thoughts. Client identified progress she has been making to include: decrease in self-harm urges, no self-harm since 08/08, completed her grandma's cross stitch gift, improved motivation, and increased desire to craft. Client stated her mood has been improved the last few days. Client stated after talking with her mom about the residential program they both decided it wouldn't be a good idea at this time. Client reported she believes IOP will be sufficient at this time. Started discussion about tentative discharge in two weeks, highlighting progress pt has been making. Client stated she would like a new psychiatrist and wanted to schedule with Dr. Jain. Client reported she will call [facility] today to get intake appointment for counseling. Client expressed some anxiety about being done in IOP. Client agreed she has seen progress within herself but is worried about maintaining the progress once IOP is over. Client agreed attending [facility] aftercare program could be helpful with maintenance. Risks/Concerns:: Client reporting increased intrusive self harm thoughts, but denies urges to actually harm herself. Client stated the thoughts are unwanted and she doesn't actually want to hurt herself. Client has refrained from self-harm since 08/08/22. Client reports decrease in suicidal thoughts. Denies suicidal plan or intention to date. Feels able to maintain safety. Future oriented. Progress Toward Goals/Plan:: Progress noted with client reporting no self-harm in the last 12 days, increased motivation, engaging in activities she enjoys like crafting, and using skills more consistently. Client is reporting increased intrusive thoughts, but is using skills to try and manage those thoughts. Discussed tentative discharge in two weeks if client is continuing to maintain progress. Discussed if client doesn't feel ready, could extend IOP for another week. Client expressed agreeance with plan. Client to continue IOP to maintain gains, continue use of healthy coping, and prevent decompensation. Time Stopped:: 12:00
--- NOTE | 2022-08-24 10:06 | BH.SGPN.GN ---
Behaviors/Verbalizations/Mental Status: []Pt alert and oriented, casually dressed and groomed. Eye contact good. Motor activity appropriate. Speech within normal limits. Affect congruent, mood anxious, depressed. Thoughts linear, logical, no signs of hallucinations or delusions. Client Response/Progress/Benefit: []Pt was an active participant in group discussions, this is continues to be progress for pt. Participated with peers in experiential activity. Pt participated in an interactive discussion with peers in which they worked together to define what coping skills are. Group then identified unhealthy coping skills which included; isolating, not asking for help, procrastination, and lashing out on others or self. Group discussed what barriers commonly make using healthier coping skills more difficult. Pt displayed insight that she struggles with impulsivity and stepping out of her comfort zone which has been a barrier to choosing healthier coping skills in the past. Benefited from increased awareness and education the benefits of having a healthy coping repertoire and consequences of unhealthy coping on mental health and relationships. Will continue IOP tx to further promote healthy distress tolerance skills, improve self-care, and prevent decompensation. Narrative Note: []
--- NOTE | 2022-08-24 11:10 | BH.SGPN.GN ---
Behaviors/Verbalizations/Mental Status: []Client alert and oriented, casually dressed and groomed. Eye contact fair. Motor activity appropriate. Speech within normal limits. Affect constricted, mood dysthymic. Thoughts linear, logical, no signs of hallucinations or delusions Client Response/Progress/Benefit: []Client responded well to session, taking notes and contributing. Group discussed the different categories of coping skills which included distraction, emotional release, grounding, self-love, and thought challenging. Client participated in creating a coping skills ?menu? from the five categories of coping skills. Client's coping skill menu included: socialize, weighted blanket, healthy venting, pampering self, and identifying daily wins. Client reported some of these skills are new and others are skills she wants to use more often. Appeared to benefit from increasing repertoire of healthy coping skills. Will continue tx to further reduce negative thinking, decrease self-sabotaging behaviors, and prevent decompensation.
--- NOTE | 2022-08-24 16:58 | BH.MDN_ITS ---
Multi-Disciplinary Note - Note 30-min Individual Time Started:: 09:05 Date: 08/24/22 Purpose of session/treatment goals addressed:: Purpose of session was to address goals 1 and 2 from MTP. Eye Contact:: Fair Motor Activity:: Restless Appearance:: Disheveled Speech:: Appropriate Mood:: Dysthymic Affect:: Constricted, Other - inappropriate affect at times AEB pt smiling when talking about Thoughts:: Linear, Logical, No evidence of hallucinations/delusions noted Staff Interventions:: thought challenging, CBT techniques, strengths perspective, completed risk assessment / safety planning, other - reviewed healthy coping skills Client Response:: Client reported on Wednesday she her mood had a significant drop to feeling depressed. Client stated she cannot identify a specific trigger to her mood become significantly depressed. Client reported she started having negative thoughts that I can't keep fighting like this. Client stated she snuck into her mom's bedroom and took about 20 benadryl with intent to kill herself. Client reported she did started to throw up the medications that evening. Client reported she told her mom the next day what she had done. Client expressed frustration with herself for making that choice. Client reported she is having suicidal thoughts, but denies suicidal intention or plan. Client stated she feels able to keep herself safe and doesn't believe hospitalization would benefit her. Client reported she had talked with her mom yesterday about inpatient hospitalization and they both agreed 3-5 days in a inpatient unit wouldn't do much good for her. Client expressed understanding inpatient units do help keep people alive. She stated she doesn't feel imminent risk to harm herself and is able to keep herself safe. client stated she would like to explore residential program again. Therapist called and left voicemail for the director of the residential program at [facility]. Client stated today she will play with her dogs, work on her [employer] project, and play a game with her mom as ways to provide healthy distraction. Client stated she will tell her mom if her suicidal thoughts get to the point she doesn't think she can manage them on her own. Risks/Concerns:: see client response for more information. Client stating ability to maintain safety today. Client does not have access to anything that she could use to try and kill herself. Client states remorse for her actions and doesn't want to kill herself. Progress Toward Goals/Plan:: Decompensation in progress AEB client attempting to overdose on benadryl this weekend. Client had been doing better with improved mood, using skills, and getting ready for discharge from program. Client cannot identify specific trigger to her suicidal behavior besides having significant mood drop on Wednesday. Client feeling able to keep herself safe today. Client is to continue IOP to prevent further decompensation, challenge distortions, and increase use of healthy coping skills. Therapist has made a phone call to [facility] program and waiting to hear back. Plan is to get client assessment phone call for residential program, will continue IOP until that is completed. Time Stopped:: 09:35
--- NOTE | 2022-08-25 09:01 | BH.SGPN.GN ---
Behaviors/Verbalizations/Mental Status: [] Eye contact is fair. Motor activity is appropriate. Appearance is casual. Speech is Appropriate. Mood is dysthymic. Affect is constricted. Thoughts are linear and logical. No evidence of psychosis. Reviewed daily check in sheet and no reports of suicidal ideations or intent. Reviewed daily check in sheet and reported a 3/5, with 5 being severe, for suicidal ideation and a 2/5 for suicidal intention. This is below pt's baseline. Did not appear to be imminent risk to harm self. future oriented. Client Response/Progress/Benefit: [] Pt participated at times during the group discussion. Attentive. Emotion for today is ?detached?. 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 Client shared additional mental health positive as making sam paw prints for all of her dogs yesterday, which she stated is something she's been wanting to do. Client reported she also opened up to her mom last night about feeling stressed with her mom having surgery soon. Client stated she shared how she doesn't like to see her mom in pain and also feels extra stress with the added responsibility she will get while her mom can't do much after surgery. Benefited from group support, encouragement, and feedback. Will continue in IOP to increase consistent use of healthy coping skills, challenge distortions, and prevent decompensation.
--- NOTE | 2022-08-25 10:10 | BH.SGPN.GN ---
Behaviors/Verbalizations/Mental Status: [] Eye contact is good. Motor activity is appropriate. Appearance is casual. Speech is Appropriate. Mood is depressed. Affect is flat. Thoughts are linear and logical. No evidence of psychosis. Client Response/Progress/Benefit: [] Pt did not participate in group discussions. Attentive during psychoeducation. Engaged and participated in experiential activity. Attentive as peers worked together to define pitfalls in relation to mental health. Group was able to identify several common examples of pitfalls which included; negative automatic thoughts, sad songs, isolation, not communicating, self-harm, impulsive spending, over-committing oneself, and self-sabotage. Able to correlate experiential activity and topic of pitfalls. Able to identify strategies to use in activity (as well as in life) to overcome or manage mental health pitfalls. Benefited from increased understanding of types of common pitfalls that impact mental health. Will continue in IOP to maintain safety, prevent decompensation/re-admission, and to increase healthy coping skills. Narrative Note: []
--- NOTE | 2022-08-25 11:10 | BH.SGPN.GN ---
Behaviors/Verbalizations/Mental Status: []Pt alert and oriented, disheveled appearance. Eye contact good. Motor activity appropriate. Speech within normal limits. Affect constricted, mood depressed Thoughts linear, logical, no signs of hallucinations or delusions.? Client Response/Progress/Benefit: []Pt receptive of session, engaged throughout AEB pt?contributing to discussion, as well as taking notes.? Pt and group processed how the emotions and perspective of the group impacted the activity positively and negatively at times. Group worked together to identify different coping skills to help manage pitfalls. Pt identified pitfalls they struggle with such as thinking ?it will never change,? not giving herself credit, and self-harm. Pt plans to work on these pitfalls by?working on her accomplishment journal to begin giving herself credit.??Benefited from identifying personal pitfalls and strategies to overcome these pitfalls. Will continue IOP tx to increase use of healthy coping skills, reduce self-harming urges, and improve daily functioning. ? Narrative Note: []
--- NOTE | 2022-08-26 11:10 | BH.SGPN.GN ---
Behaviors/Verbalizations/Mental Status: []Pt alert and oriented, casually dressed. Disheveled in appearance. Eye contact fair. Motor activity appropriate. Speech within normal limits. Affect constricted, mood depressed. Thoughts linear, logical, no signs of hallucinations or delusions. Client Response/Progress/Benefit: []Pt was attentive and contributed in larger group discussion. Pt completed strengths exploration worksheet. Pt able to acknowledge how these strengths are helping pt and can continue to help pt in mental health journey. Reflected on how her empathy, curiosity, and logic have helped pt in the past and continue to help pt with her mental health. Pt worked with group to identify strategies that can help increase utilization of personal strengths. Benefited from identifying personal strengths and strategies for enhancing use of identified strengths. Pt to continue IOP tx to improve confidence, increase consistent use of healthy skills, and prevent decompensation.
--- NOTE | 2022-08-26 13:10 | PCM.BH.PN_ITS ---
Progress Note Progress Note: History of Present Illness/Interim History: The patient is a 22-year-old female with a history of factitious disorder, bipolar disorder, anxiety, depression and borderline personality disorder who is seen in follow-up at the [facility] behavioral health IOP program. I last saw the patient about 1 month ago. The patient saw her outpatient psychiatrist yesterday and her Lexapro was decreased to 20 mg p.o. daily according to the patient although this is the dose she said she was taking before. The patient had an episode 3 days ago in which she took 20 pills of Benadryl but states that she did not want to . Mother found her drowsy and observe her closely and they did not call 911 or seek medical attention and the patient returned to normal after several hours. The patient states that she was feeling depressed but then her mood was okay yesterday but then this morning she woke up feeling depressed again. Her mother has all her medications locked up so she will be unable to overdose. The patient states that she has passive suicidal ideation today which is lasted all day but denies that it is active. The patient states I do not want to kill myself. I do not want to . She feels able to control her self to prevent another suicide attempt as she feels she is learning valuable skills in the IOP program. She felt safe during the interview according to her and denies any urges to self-harm. The patient has not self-harm for 2 weeks at least. Sleep is okay overall although she wakes up a few times but is able to get right back to sleep. Current Psychiatric Medications: [] Adderall XR 20 mg p.o. every morning; trazodone 150 mg p.o. nightly; melatonin 20 mg p.o. nightly; BuSpar 15 mg p.o. twice a day; Rexulti 4 mg p.o. daily; Lamictal 150 mg p.o. daily; Lexapro 20 mg p.o. daily (patient states she used to take [address] Jain decreased it to 20 mg yesterday but she told that she was on 20 mg at her initial visit so this is unclear.; Ativan 1.5 mg 3 times daily as needed Mental Status Examination: [] The patient is an obese 22-year-old female who is casually dressed and groomed with good hygiene and is ambulatory with a normal gait. She has no psychomotor agitation or retardation. Eye contact is good and speech is normal rate and rhythm and fluent without pressure. Mood is depressed. Affect is constricted. Thought process is goal-directed and organized. Thought content: There is evidence of passive thoughts of and passive suicidal ideation but the patient states that I do not want to and I do not want to kill myself. There is no evidence of active suicidal ideation, homicidal ideation, hallucinations, delusions or definitive plan for suicide. Reality testing is intact. Impulsivity is high. Insight is quite limited. Judgment is limited but intact. Diagnoses: [] 1. Major depressive disorder, recurrent, severe without psychosis 2. Borderline personality disorder 3. Generalized anxiety disorder 4. Factitious disorder history 5. Primary support, work issues Plan: [] The patient will continue the IOP program at [facility] as the structure, support, education and group therapy will hopefully prevent worsening of the patient's symptoms which might require hospitalization. She felt safe during the interview and if it anytime she does not feel safe she will let us know or go to the emergency room. The patient and staff are working on getting the patient residential placement as soon as possible. The patient's mother continues to have her medications locked up and is observing the patient closely when the patient is not at the IOP program. The patient will continue to follow-up with her outpatient psychiatric providers and no medication changes were made today but we will consider continuing to wean the Lexapro and changing the patient over to something else soon. I will see the patient in follow-up in 1 to 2 weeks.
--- NOTE | 2022-08-26 15:23 | BH.MDN_ITS ---
Multi-Disciplinary Note - Note 30-min Individual Time Started:: 12:05 Date: 08/26/22 Purpose of session/treatment goals addressed:: Purpose of session was to address goals 1 and 2 from MTP. Eye Contact:: Fair Motor Activity:: Appropriate Appearance:: Casual, Other - grooming fair Speech:: Appropriate Mood:: Anxious, Dysthymic Affect:: Constricted Thoughts:: Linear, Logical, No evidence of hallucinations/delusions noted Staff Interventions:: motivational interviewing, CBT techniques, strengths perspective, goal setting Client Response:: Client reported she is feeling less suicidal currently after completing the DBT pros/cons worksheet provided by therapist. Client stated completing the worksheet helped her see that she truly doesn't want to . Client stated she still is having thoughts of suicide, but feels able to manage those thoughts more effectively. Client stated she already texted her mom this morning letting her mom know she was having increased suicidal thoughts. Client reported her mom suggested today they do some baking together. Client stated other things she can do to get through the day are taking dogs for a walk, repainting her nails, looking at her pros/cons list if needed, and getting back to personal hygiene by showering. Client reported tomorrow she will work on [employer], hang out with her mom, and journal. Client stated she feels able to keep herself safe and will use healthy distractions. Client reported she has decided against going to the residential program. Client stated she isn't sure it will be helpful, plus she wants to be around the house to help her mom next month when her mom has shoulder surgery. Client reported she needs to be at the house to help with her brother. Client stated she was feeling anxious about helping her mom, but after talking about what her responsibilities would be like. Client reported she also isn't confident with the residential program because the director doesn't return phone calls. Client agreed extending IOP for a week or two could be helpful to get back to using skills more consistently. Risks/Concerns:: Client's symptom tracker this morning indicated a 5/5, with 5 being severe, and a 3/5 for suicidal intention. After client used her skills, interacted in group, and met with individual therapist she reported her suicidal thoughts are a 3/5 and her suicidal intent is a 1/5. Client reports feeling able to manage her suicidal thoughts and feels able to maintain safety. Agreeable if suicidal thoughts worsen she will call 911 or go to the nearest emergency room. Progress Toward Goals/Plan:: Client continuing to struggle with suicidal thoughts and mood decline. Progress noted with client seeking support from her mom, being honest with therapist, and willingness to try her skills. At this time client has decided to not pursue residential treatment, would like to continue IOP. Client will extend her IOP for 1-2 weeks. If client engages in suicidal behavior again she will be referred to the residential program. Time Stopped:: 12:30
--- NOTE | 2022-08-28 09:00 | BH.SGPN.GN ---
Behaviors/Verbalizations/Mental Status: []Eye contact fair to good, casually dressed, motor activity appropriate, speech normal rate and tone, mood dysthymic and anxious, congruent affect, thoughts linear and intact, no evidence of delusions or hallucinations. Reviewed pt's symptom tracker, reports of suicidal ideation within pt baseline and pt denies any active plan, or intent as of this date 08/28/22. Future oriented. Client Response/Progress/Benefit: []Pt responded well to session, attentive and willing to process with group. Pt reports feeling mellow this morning. Pt did well to identify current mental health wins which included brushing her dogs hair yesterday rather than continuing to put it off, as well as making several phone calls. Shared she usually has her mother make the calls for her but she was able to use opposite action in order to complete the task herself. Pt did identify these calls as a current stressor as she had been calling to find an outpatient counselor, however every agency she reached out to had a 6-8 week long wait. Did well to remind herself of the importance of not giving up and continuing to work on finding a therapist. Appeared to benefit from group?discussion and supportive environment. Recommended continued IOP tx to continue to improve consistency of healthy skill application, promote mood stability, as well as prevent decompensation. Narrative Note: []
--- NOTE | 2022-08-28 10:10 | BH.SGPN.GN ---
Behaviors/Verbalizations/Mental Status: []Client alert and oriented, casually dressed and groomed. Eye contact poor. Motor activity appropriate. Speech within normal limits, quiet. Affect constricted, mood depressed. Thoughts linear, logical, no signs of hallucinations or delusions Client Response/Progress/Benefit: []Pt passive participant AEB limited contributions throughout group discussion, however to appear to listen attentively to others and take notes. Pt appeared to be attentive during psychoeducation about acceptance. Pt listened as group identified common barriers to acceptance to include: fear of relapse, anxious thoughts, fear of stigma, and fear of being vulnerable. Pt worked with small group to identify benefits of acceptance. Pt seemed to benefit from increased awareness of the benefits of being able to accept things out of her control. Pt to continue IOP to increase consistent use of healthy coping skills, challenge distorted thoughts, and prevent decompensation. Narrative Note: []
--- NOTE | 2022-08-28 11:10 | BH.SGPN.GN ---
Behaviors/Verbalizations/Mental Status: []Pt alert and oriented, casually dressed and groomed. Eye contact good. Motor activity appropriate. Speech within normal limits. Affect constricted, mood dysthymic. Thoughts linear, logical, no signs of hallucinations or delusions. Client Response/Progress/Benefit: [] Pt responded well to session, quiet, but taking notes. Pt listened as group continued discussion on acceptance and how lack of acceptance can impact mental health. Pt and peers identified what makes acceptance challenging and pt completed a self-reflection exercise on what is hard to accept in pt's life. Pt shared it is hard to accept that I caused myself to get sick by messing with open wounds. Pt also identified how further lack of acceptance could lead to more harm such as repeating the cycle and not getting help. Group identified strategies to increase acceptance and pt selected thinking in the sorto to help pt increase acceptance. Pt appeared to benefit from gaining insight and strategies to increase acceptance. Pt will continue IOP tx to promote use of healthy coping skills, prevent hospitalization, and improve daily functioning. Narrative Note: []
--- NOTE | 2022-08-28 16:49 | BH.MDN ---
Multi-Disciplinary Note - Note 30-min Individual Time Started:: 12:05 Date: 08/28/22 Purpose of session/treatment goals addressed:: Purpose of session was to address goals 1 and 2 from MTP. Eye Contact:: Fair Motor Activity:: Restless Appearance:: Casual, Other - personal hygiene good, improved from previous session Speech:: Appropriate Mood:: Anxious, Depressed Affect:: Constricted Thoughts:: Linear, Logical, No evidence of hallucinations/delusions noted Staff Interventions:: thought challenging, motivational interviewing, CBT techniques, mindfulness skills, strengths perspective, goal setting, taught coping skills - Calm harm idalia Client Response:: Client reported yesterday she did some self-care by getting her hair cut. Client stated she also followed through with goal set of taking a shower every other day. Client reported she is still struggling with suicidal thoughts. Client stated yesterday the suicidal thoughts were less intense, but today the thoughts are intense. Client stated she does not feel the need to be hospitalized and can keep herself safe. Client and therapist discussed skills and strategies that have helped client manage suicidal thoughts. Client stated switching from whatever she is doing and doing a different task tends to help her. Client reported she keeps having thoughts like I don't want to be here anymore. Client stated she really doesn't want to , but is tired of the suicidal thoughts. Client identified reasons to be alive to include: little brother, pets, and her family. Client reported biggest trigger to her suicidal thoughts is feeling depressed with low motivation and difficulty finding pleasure in activities. Client reported yesterday she did feel some enjoyment when she baked cookies with her mom. Client worked with therapist to develop plan for the weekend. Client stated she will paint on canvas this weekend, which is something she has been wanting to do for awhile. Client reported she can cross stitch, go to [employer], journal, take her dog to the pet store, and play a game with her mom. Therapist showed client the [employer] harm idalia that client could use if her suicidal thoughts became worse. Therapist showed client the idalia and explained that the idalia includes various categories of healthy coping skills she could refer to for help. 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 Client stated she felt comfortable with weekend plan. Risks/Concerns:: Client continues to report suicidal ideation. Client states she does not have intention or plan to kill herself. Client reported she does not need hospitalization. Client recently had attempted suicide via OD last weekend. Discussed plan to help her manage suicidal thoughts over weekend, since her hx in IOP indicates weekends to be the hardest time for her. Client expressed ability to keep self safe. Future oriented. Able to identify reasons to live. Progress Toward Goals/Plan:: Client progress variable. Client has been doing better with using skills and following through with goals set in individual sessions. Client reporting increased suicidal thoughts and depressed symptoms. Client has been able to manage the thoughts and not acted on those thoughts in a week. Client does struggle with managing symptoms on the weekend. Plan is for client to continue IOP to increase consistent use of healthy coping, challenge negative thinking, and prevent decompensation. Client expressed understanding that she will be referred to residential program at [facility] if she engages in suicidal behavior again. Time Stopped:: 12:35
--- NOTE | 2022-08-31 10:33 | BH.DS_ITS ---
Discharge Summary - Demographics Date of Admission:: 07/20/22 Discharge Date: 08/31/22 Presenting Problems at Admission:: The patient is a 22-year-old single, female with a history of depression, borderline personality disorder, factitious disorder, pseudoseizure and ADHD who did the [facility] program in the summer 2018 and was referred back after a medical admission at [facility] from June 06 to June 30, 2022. She was admitted for an abscess in her right forearm which is now healing well according to the patient. The patient has a long history of self-injurious behaviors that resulted in numerous infections, medical admissions and surgeries. She has a history of picking at wounds and causing them to become infected and has had numerous medical admissions this year long for the above. The patient also has a history of injecting herself subcutaneously with air into her face and neck causing subcutaneous emphysema. She endorses being down and depressed since she got discharged from the hospital on June 30. She endorses hopelessness, worthlessness, anhedonia, low energy, decreased concentration and guilt. The patient now admits that she has intentionally caused her wounds to become infected in the past. The patient endorses passive thoughts of and fleeting, daily passive suicidal ideation. She denies active suicidal ideation, plan for suicide, homicidal ideation, hallucinations or delusions or symptoms of yana ever. Discharge Diagnoses:: 1. F33.2 Major depressive disorder, recurrent, severe without psychosis. 2. Borderline personality disorder. 3. Generalized anxiety disorder. 4. Factitious disorder. 5. History of pseudoseizure conversion disorder Reason for Discharge:: Pt was admitted on 08/30/22 to a inpatient psychiatric hospital due to attempting to kill self on 08/29/22 by ingesting 300 Benadryl. - Treatment Progress During Treatment & Response: Progress variable throughout. Client had shown treatment progress with being more honest about her factitious disorder and self-harming one time in 6 weeks, which is significant progress for pt. Pt shown overall symptom reduction in the first few weeks of treatment. Pt's progress starting to decline about 3 weeks ago with increased feelings of depression, increased thoughts of suicide, and difficulty applying skills consistently. Client had suicidal gesture last weekend, but had stated she does not want to and could keep herself safe. Client ingested 300 Benadryl on 08/29/22 stated to ER physician she hadn't taken the pills to kill herself. Cl christiano pulido slipped to inpatient hospitalization. Issues Still to be Addressed:: Emotion regulation, challenging negative thoughts, increasing consistent use of healthy coping skills, learning how to accept and be okay with stability, and increase socialization. Discharge Recommendations/Instructions:: Client encouraged to follow recommendations of inpatient hospital facility. This account underwriter spoke to client's mother and encouraged client's mother to follow up with the residential facility client was going to go to in the past. Discharge Handout: Complete Discharge Handout with client on aftercare options and continuity of care.
== END 2022-09-01 07:27 ==
LOC: BHIOP 07:30
PROVIDERS: PCP Student in an Organized Health Care Education/Training Program; Referring Provider Psychiatry & Neurology Psychiatry; Visit Provider Psychiatry & Neurology Psychiatry
DX: F33.2 Major depressive disorder, recurrent severe without psychotic features (principal); F60.3 Borderline personality disorder; F41.1 Generalized anxiety disorder; F68.10 Factitious disorder imposed on self, unspecified; E66.9 Obesity, unspecified; Z79.899 Other long term (current) drug therapy; F44.5 Conversion disorder with seizures or convulsions
CPT/HCPCS: 99214; H2012; H2020; S9480; 90832; 90834

== ENCOUNTER 2022-08-29 21:52 | Emergency (ER) | payer MEDICAID, SELFPAY ==
[2022-08-29 21:52] VITALS: BP 123/93; PULSE 126; RESP 20; TEMP 36.6; O2SAT 96; BMI 51.3
[2022-08-29 22:37] LABS: Absolute Lymphocyte Count 2.57 X10^3/uL (0.83-4.51); Absolute Neutrophil Count 6.1 X10^3/uL (2.0-7.7); Basophil# 0.05 X10^3/uL; Basophil% 0.5 % (0-1); Eosinophil# 0.11 X10^3/uL; Eosinophils% 1.1 % (0-5); Hematocrit 45.8 % (37-47); Hemoglobin 15.3 g/dL (12.0-15.0); Lymphocyte # 2.57 X10^3/ul (0.83-4.51); Lymphocyte % 26.6 % (19-41); Mean Corp Hgb Conc 33.4 g/dL (32-36); Mean Corpuscular Volume 83.7 fL (81-99); Mean Platelet Vol. 10.1 fl (6.2-12.0); Monocyte# 0.75 X10^3/uL; Monocyte% 7.8 % (0-10); NRBC Flagged by Analyzer 0 % (0-5); Neutrophil # 6.12 X10^3/uL (2.7-7.7); Neutrophil % 63.5 % (47-70); Platelet Count 343 K/mm3 (150-450); RBC Distribution Width CV 13.7 % (11.6-14.6); RBC Distribution Width SD 41.9 fl (35.1-43.9); Red Blood Count 5.47 M/mm3 (4.2-5.4); White Blood Count 9.7 K/mm3 (4.4-11.0)
[2022-08-29 23:03] LABS: Internal QC Validated? YES +Cl - CLEAR BKGD; Pregnancy, Serum, hCG Quali. NEGATIVE Negative
[2022-08-29 23:09] VITALS: O2SAT 99
[2022-08-29 23:09] LABS: Anion Gap 7 (5-15); BUN 25 mg/dL (7-18); BUN/Creat Ratio 23.8 RATIO (10-20); Calcium,Total 9.1 mg/dL (8.5-10.1); Chloride 107 mmol/L (98-107); Creatinine, Serum 1.05 mg/dL (0.55-1.02); EST Glomerular Filtration Rate 70 mL/min (>60); Est Glom Filt Rate - Afr Amer 84 mL/min (>60); Estimated Creatinine Clearance 69.52 ml/min; Glucose 119 mg/dL (74-106); Potassium 5.2 mmol/L (3.5-5.1); Sodium Level 137 mmol/L (136-145)
--- NOTE | 2022-08-29 23:23 | EKG12_ITS ---
Test Reason : MENTAL HEALTH Blood Pressure : / mmHG Vent. Rate : 109 BPM Atrial Rate : 109 BPM P-R Int : 150 ms QRS Dur : 094 ms QT Int : 326 ms P-R-T Axes : 036 008 045 degrees QTc Int : 439 ms Sinus tachycardia Minimal voltage criteria for LVH, may be normal variant ( R in aVL ) Possible Inferior infarct , age undetermined Abnormal ECG Confirmed by EDDIE FRANKLIN, LEANDRO ([id number]), editorial assistant MELISSA LAL ([id number]) on 08/31/2022 10:51:17 AM Referred By: HOLLIE Confirmed By:LEANDRO MORGAN MD
--- NOTE | 2022-08-29 23:24 | EX.ED.VIS.PS ---
HPI HPI - Psych History of Present Illness Chief Complaint: Suicidal Informant: patient Narrative Narrative: Patient presents after overdose on 300 [id number] Benadryl. She states she took these about 6 hours ago. She feels just mild general lightheadedness. She denies injecting anything in herself. She is not having dyspnea or chest pain. Her heart rate is elevated but when I ask her she denies actual palpitations. She has had no nausea or vomiting. She does have a history of depression and suicidal thoughts. She has significant history of self injury. She denies any self injury although she states she did cut herself a little bit 2 or 3 weeks ago. No skin infections or complaints. No fevers or chills. She when I asked her why she took the Benadryl she is not sure. She kind of denied that it was suicidal thoughts but when I explained that taking 300 Benadryl is quite uncommon unless someone is trying to hurt themselves she agreed she did have suicidal thoughts. She adamantly denies taking any other excess medicines. She does state that she is on medicines for her psychiatric illness and is taking them as prescribed. However she cannot tell me exactly what they are she does not recall. She is in involved in intensive outpatient psychiatry here. [facility] Medical History Asthma Borderline personality disorder Conversion disorder Factitious disorder HOLLY (generalized anxiety disorder) Major depressive disorder, recurrent severe without psychotic features Necrotizing fasciitis Periorbital edema of right eye Pseudoseizure Subcutaneous emphysema Subcutaneous emphysema Home Medications magnesium oxide 400 mg (241.3 mg magnesium) tablet 400 mg PO BID 11/11/16 [History Last Taken 05/26/19] melatonin 10 mg sublingual tablet 20 mg PO QHS 11/11/16 [History Last Taken 05/25/19] riboflavin (vitamin B2) 400 mg tablet 400 mg PO DAILY 05/26/19 [History Last Taken 05/26/19] albuterol sulfate 90 mcg/actuation aerosol inhaler 1 puff inhalation Q4H PRN PRN Asthma 07/20/19 [History Last Taken Unknown] dextroamphetamine-amphetamine 20 mg tablet (Adderall) 20 mg PO DAILY 07/20/19 [History Last Taken Unknown] omeprazole 20 mg capsule,delayed release 40 mg PO BID 12/12/19 [History Last Taken Unknown] hydroxyzine HCl 50 mg tablet 50 mg PO BID 01/21/21 [History Last Taken Unknown] lorazepam 0.5 mg tablet 1.5 mg PO TID PRN PRN Anxiety 01/21/21 [History Last Taken Unknown] trazodone 100 mg tablet 150 mg PO QHS 03/02/21 [History Last Taken Unknown] mometasone-formoterol HFA 200 mcg-5 mcg/actuation aerosol inhaler (Dulera) 2 puff inhalation BID 05/29/21 [History Last Taken Unknown] brexpiprazole 4 mg tablet (Rexulti) 4 mg PO DAILY 07/22/22 [History Last Taken Unknown] buspirone 5 mg tablet 20 mg PO BID 08/25/22 [History Last Taken Unknown] escitalopram oxalate 20 mg tablet 20 mg PO QHS #30 tabs 08/25/22 [Rx Last Taken Unknown] lamotrigine 150 mg tablet 150 mg PO DAILY #30 tabs 08/25/22 [Rx Last Taken Unknown] Allergy/AdvReac Type Severity Reaction Status Date / Time azithromycin [From Zithromax] Allergy Rash Verified 08/29/22 21:58 sulfamethoxazole Allergy Rash Verified 08/29/22 21:58 [From Bactrim] trimethoprim [From Bactrim] Allergy Rash Verified 08/29/22 21:58 Family History Other Alcoholism Colon cancer Hypertension Mental disorder Myocardial infarction Psychiatric care Respiratory disease Social History Smoking Status: Never smoker ROS ROS ED Constitutional Constitutional ED: Denies fever(s) or subjective Eyes Eyes: Denies change in vision ENT ENT ED: Denies rhinorrhea or sore throat Cardiovascular Cardiovascular: Denies palpitations or racing heartbeat Respiratory/Chest Respiratory/Chest: Denies cough Gastrointestinal Gastrointestinal: Denies nausea or vomiting Musculoskeletal Musculoskeletal: Denies myalgias Integumentary Reports other Details: Patient has had necrotizing fasciitis from self injection but she is not having any complaints related to this at this time. ; Denies rash Neurologic Neurologic: Denies headache(s) or paresthesias Psychiatric Psychiatric: Reports anxiety, depression and suicidal ideation Hematologic/Lymphatic Hematologic/Lymphatic: Denies lymphadenopathy Allergic/Immunologic Allergic/Immunologic ED: Denies urticaria EXAM Physical Exam Const Vital Signs: 08/29/22 21:52 08/29/22 23:09 Temperature 97.8 F Temperature Source Temporal Pulse Rate 126 H Respiratory Rate 20 H Blood Pressure 123/93 H Blood Pressure Mean 103 Pulse Ox 96 99 Oxygen Delivery Method Room Air Room Air Positive well nourished and well developed Constitutional Narrative: Patient is awake alert she sitting calmly in bed. I watched her walk to the bathroom and back. She is very stable easy gait. She is not dyspneic. General Appearance ED: well developed and NAD; Negative for pallor HEENT Reports moist mucous membranes Negative for trauma Eyes PERRL and EOMs intact bilaterally Eyes Narrative: Pupils seem may be a little bit large but surprisingly not significantly changed. They are reactive. Range of motion of eyes is normal. Neck no lymphadenopathy, supple and no JVD Resp normal respiratory effort and clear to auscultation bilaterally Resp Narrative: No subcutaneous air or crepitance is felt around anterior posterior chest wall or neck. Effort and Inspection: Negative for retractions Auscultation: Negative for rales, rhonchi or wheezes Cardio no murmurs Cardio Narrative: Heart has a regular rhythm but is tachycardic which is expected considering her overdose. I hear no murmur. Peripheral pulses are normal. Rate: tachycardic Rhythm: regular rhythm GI non-tender and non-distended GI Narrative: Obese but otherwise benign. Back/Spine no CVA tenderness Extremity Extremity Narrative: Patient has well-healed peripheral surgical scars on extremities but these do not look acutely infected. There is 1 area up on the upper right forearm that is abraded about a centimeter around but its not infected. There is no subcutaneous air. Neuro oriented x3 Neuro Narrative: Patient is not sleepy or lethargic. She is not confused. She is not aggressive. No sign of hallucinations. Sensorium / Orientation: alert Psych Psych Narrative: Patient has a somewhat flat affect. No flight of ideas. No obvious hallucinations. She makes mildly poor eye contact. Skin Skin Narrative: Well-healed scars but no sign of acute injury. General Skin Exam: Negative for pallor MDM MDM MDM Narrative Medical decision making narrative: Patient CBC shows mild elevation of her hemoglobin but white count normal. Electrolytes show minimal elevation of potassium at 5.2. Her creatinine is above her baseline. We will give her some IV fluids here she may have some dehydration. This should help both of the hemoglobin potassium and also the creatinine. Tylenol is essentially negative. Aspirin levels essentially negative. Alcohol is negative. Tox is positive for methamphetamines and MDMA. However, she is on amphetamine salts and there are multiple drugs that can cross-react with MDMA. is negative. Liver function tests are also essentially normal. Patient will be watched here. She is approximately 8-1/2 to 9 hours postingestion now. I do not think she really took 300 Benadryl tablets. It is possible she took 300 mg. However, this patient does have a history of not providing accurate information to healthcare providers. I believe she is medically cleared for psychiatric evaluation and admission if needed. She will be kept under close observation as she does have history of self injury. Lab Data Attestation: I reviewed the patient's lab results. Labs: Laboratory Results - last 24 hr 08/29/22 08/29/22 08/29/22 22:20 22:20 22:20 WBC 9.7 RBC 5.47 H Hgb 15.3 H Hct 45.8 MCV 83.7 MCH 28.0 MCHC 33.4 RDW Std Deviation 41.9 RDW Coeff of Anastacio 13.7 Plt Count 343 MPV 10.1 Immature Gran % (Auto) 0.500 Neut % (Auto) 63.5 Lymph % (Auto) 26.6 [place] % (Auto) 7.8 Eos % (Auto) 1.1 Baso % (Auto) 0.5 Absolute Neuts (auto) 6.1 Absolute Lymphs (auto) 2.57 Nucleated RBC % 0 Sodium 137 Potassium 5.2 H Chloride 107 Carbon Dioxide 23.0 Anion Gap 7 BUN 25 H Creatinine 1.05 H Estim Creat Clear Calc 69.52 Est GFR (MDRD) Af Amer 84 Est GFR (MDRD) Non-Af 70 BUN/Creatinine Ratio 23.8 H Glucose 119 H Calcium 9.1 Total Bilirubin Direct Bilirubin AST ALT Alkaline Phosphatase Total Protein Albumin Globulin Serum , Qual Salicylates Cancelled Urine Opiates Screen Urine Methadone Screen Acetaminophen Cancelled Ur Barbiturates Screen Ur Phencyclidine Scrn Ur Amphetamines Screen MDMA (Ecstasy) Screen U Benzodiazepines Scrn Urine Cocaine Screen U Cannabinoids Screen Ur Drug Screen Comment Ethyl Alcohol Cancelled 08/29/22 08/29/22 08/29/22 22:20 22:20 22:47 WBC RBC Hgb Hct MCV MCH MCHC RDW Std Deviation RDW Coeff of Anastacio Plt Count MPV Immature Gran % (Auto) Neut % (Auto) Lymph % (Auto) [place] % (Auto) Eos % (Auto) Baso % (Auto) Absolute Neuts (auto) Absolute Lymphs (auto) Nucleated RBC % Sodium Potassium Chloride Carbon Dioxide Anion Gap BUN Creatinine Estim Creat Clear Calc Est GFR (MDRD) Af Amer Est GFR (MDRD) Non-Af BUN/Creatinine Ratio Glucose Calcium Total Bilirubin 0.50 Direct Bilirubin 0.08 AST 53 H ALT 48 Alkaline Phosphatase 95 Total Protein 8.0 Albumin 4.6 Globulin 3.4 Serum , Qual NEGATIVE Salicylates Urine Opiates Screen NEGATIVE Urine Methadone Screen NEGATIVE Acetaminophen Ur Barbiturates Screen NEGATIVE Ur Phencyclidine Scrn NEGATIVE Ur Amphetamines Screen POSITIVE H MDMA (Ecstasy) Screen POSITIVE H U Benzodiazepines Scrn NEGATIVE Urine Cocaine Screen NEGATIVE U Cannabinoids Screen NEGATIVE Ur Drug Screen Comment Ethyl Alcohol 08/29/22 23:21 WBC RBC Hgb Hct MCV MCH MCHC RDW Std Deviation RDW Coeff of Anastacio Plt Count MPV Immature Gran % (Auto) Neut % (Auto) Lymph % (Auto) [place] % (Auto) Eos % (Auto) Baso % (Auto) Absolute Neuts (auto) Absolute Lymphs (auto) Nucleated RBC % Sodium Potassium Chloride Carbon Dioxide Anion Gap BUN Creatinine Estim Creat Clear Calc Est GFR (MDRD) Af Amer Est GFR (MDRD) Non-Af BUN/Creatinine Ratio Glucose Calcium Total Bilirubin Direct Bilirubin AST ALT Alkaline Phosphatase Total Protein Albumin Globulin Serum , Qual Salicylates < 1.7 L Urine Opiates Screen Urine Methadone Screen Acetaminophen < 2.0 L Ur Barbiturates Screen Ur Phencyclidine Scrn Ur Amphetamines Screen MDMA (Ecstasy) Screen U Benzodiazepines Scrn Urine Cocaine Screen U Cannabinoids Screen Ur Drug Screen Comment Ethyl Alcohol < 3.0 EKG Initial EKG: Comments: My independent interpretation of an EKG done for tachycardia and attempted overdose shows sinus rhythm with tachycardic rate at 109. There is no ventricular ectopy. No acute ST elevation or depression. There is mild baseline nonspecific change. DE interval, QRS duration and QTc are normal. Discharge Plan Triage Chief Complaint: Suicidal ED Provider: Rodriguez Browne Dx/Rx/DC Orders Clinical Impression: Overdose by ingestion, Suicide attempt, Anticholinergic drug overdose Prescriptions: No Action lamotrigine 150 mg tablet 150 mg PO DAILY Qty: 30 2RF escitalopram oxalate 20 mg tablet 20 mg PO QHS Qty: 30 1RF magnesium oxide 400 MG tablet 400 mg PO BID melatonin 10 MG tablet 20 mg PO QHS riboflavin (vitamin B2) 400 MG tablet 400 mg PO DAILY dextroamphetamine-amphetamine [Adderall] 20 MG tablet 20 mg PO DAILY omeprazole 20 MG capsule 40 mg PO BID albuterol sulfate 1 PUFF inhaler 1 puff inhalation Q4H PRN PRN (Reason: Asthma) buspirone 5 mg tablet 20 mg PO BID hydroxyzine HCl 50 mg Tablet 50 mg PO BID lorazepam 0.5 mg Tablet 1.5 mg PO TID PRN PRN (Reason: Anxiety) trazodone 100 mg Tablet 150 mg PO QHS Dulera 200-5 mcg/actuation Hfa Aerosol Inhaler 2 puff INHALATION BID Rexulti 4 mg Tablet 4 mg PO DAILY Primary Care Provider: Андрей Bailey Referrals: Андрей Bailey DO [Primary Care Provider] - Disposition Disposition: Psychiatric Hospital or Unit
[2022-08-30] VITALS (10 sets, daily range): BP systolic 97–115; BP diastolic 49–79; PULSE 68–99; RESP 16–18; TEMP 36.7; O2SAT 95–99
[2022-08-30 00:14] LABS: AST(SGOT) 53 U/L (15-37); Alanine Aminotransfer ALT/SGPT 48 U/L (13-56); Albumin, Serum 4.6 g/dL (3.2-5.0); Alkaline Phosphatase 95 U/L (45-117); Bilirubin, Direct 0.08 mg/dL (0.00-0.30); Globulin 3.4 g/dL (2.2-4.2)
[2022-08-30 00:14] LABS: Amphetamine Urine VISTA POSITIVE (<1000 ng/mL); Barbiturate Urine VISTA NEGATIVE (< 200 ng/mL); Benzodiazepine Urine VISTA NEGATIVE (< 200 ng/mL); Cocaine Urine VISTA NEGATIVE (< 300 ng/mL); Ecstacy Urine VISTA POSITIVE (< 500 ng/mL); Methadone Urine VISTA NEGATIVE (< 300 ng/mL); PCP Urine VISTA NEGATIVE (< 25 ng/mL); THC Urine VISTA NEGATIVE (< 50 ng/mL); Vista UDS pH Range 5
[2022-08-30 00:33] LABS: Acetaminophen (Tylenol) Level < 2.0 ug/mL (10.0-30.0); Alcohol, Blood (Medical)-Serum < 3.0 mg/dL; Salicylate < 1.7 mg/dL (2.8-20.0)
--- NOTE | 2022-08-30 00:37 | NURSING ---
chart faxed to crisis
[2022-08-30] MEDS: 0.9% Normal Saline 1,000 ML 999 ML IV (00:38)
--- NOTE | 2022-08-30 03:09 | ED.RN ---
POISON CONTROL CALLED. NOTIFIED OF REPORTED 300 TABS OF OVER THE COUNTER BENADRYL TAKEN. LABS AND MENTAL STATUS, NURO EXAM REPORTED. RECOMMENDED 6 HOURS OF OBS FROM TIME OF INGESTION.
--- NOTE | 2022-08-30 06:56 | ED.RN ---
PATIENT ACCEPTED AT [facility], BY DR COWART TO THE ADULT BEHAVIORAL UNIT. ETA FOR PHYSICIANS IS 0900.
== END 2022-08-30 09:25 ==
PROVIDERS: Emergency Provider Emergency Medicine; PCP Student in an Organized Health Care Education/Training Program; Visit Provider Emergency Medicine
DX: T14.91XA Suicide attempt, initial encounter (principal); T44.3X4A Poisoning by other parasympatholytics [anticholinergics and antimuscarinics] and spasmolytics, undetermined, initial encounter; R42 Dizziness and giddiness; J45.909 Unspecified asthma, uncomplicated; F32.A Depression, unspecified; F41.1 Generalized anxiety disorder; Z79.899 Other long term (current) drug therapy; Z20.822 Contact with and (suspected) exposure to COVID-19
CPT/HCPCS: 80048; 80076; 80307; 80329; 82077; 84703; 85025; 87811; 93005; 96360; 99285; J7030; A4216; G0480

== ENCOUNTER 2022-09-03 09:00 | Outpatient (RCR) | payer MEDICAID, SELFPAY ==
--- NOTE | 2022-09-03 09:00 | BH.SGPN.GN ---
Behaviors/Verbalizations/Mental Status: []Pt alert and oriented, neatly dressed and groomed. Eye contact good. Motor activity appropriate. Speech within normal limits. Affect constricted, mood dysthymic. Thoughts linear, logical, no signs of hallucinations or delusions. Reviewed pt?s symptom tracker, no risk for suicidal ideation, plan, or intent as of 09/03/22 Client Response/Progress/Benefit: [] Pt responded well to session, attentive but quiet. Pt reports feeling mellow this morning and shared that her biggest stressor is having multiple therapy appointments coming up. Pt stated her mental health wins today are getting to IOP and having a productive conversation with her mother. Pt identified using opposite action recently to help manage depression and anxiety. Pt's symptoms continue to impact her daily functioning. Pt will continue IOP tx to prevent hospitalization and decompensation while gaining healthy coping skills. Narrative Note: []
--- NOTE | 2022-09-03 10:00 | BH.SGPN.GN ---
Behaviors/Verbalizations/Mental Status: []Pt alert and oriented, casually dressed and appropriately groomed. Eye contact fair to good. Motor activity appropriate. Speech within normal limits. Affect constricted, mood anxious and depressed. Thoughts linear, logical, no signs of hallucinations or delusions. Client Response/Progress/Benefit: [] Pt was an engaged participant AEB providing input, listening to others, and taking notes. Participated in interactive group discussion on internal and external barriers to mental health progress. Pt described current reality as struggling with depression and anxiety and feeling trapped by her mental health. Reported desired reality is being able to feel less trapped and more capable of managing her mental health symptoms without escalating to point of crisis. Client shared personal barriers to desired realty include: isolation, negative thinking, lack of self-worth, and unrealistic expectation of herself and her progress. Benefited from increased awareness of current barriers to progress as well as current/desired realities. Pt to continue IOP to improve emotion regulation, challenge negative thoughts and prevent decompensation. Narrative Note: []
--- NOTE | 2022-09-03 11:00 | BH.SGPN.GN ---
Behaviors/Verbalizations/Mental Status: []Pt alert and oriented, casually dressed and groomed. Eye contact good. Motor activity appropriate. Speech within normal limits. Affect congruent, mood depressed and anxious. Thoughts linear, logical, no signs of hallucinations or delusions. Client Response/Progress/Benefit: []Pt engaged during activity, providing input throughout session and contributed as group brainstormed ideas on how to cope with internal barriers that keep pts stuck from moving towards goals. Able to identify barriers to desired reality. Identified barriers to current reality to include: negative thinking, low self-worth, unrealistic expectations of self, and anxiety. Pt wants to work on overcoming the barrier of unrealistic expectations of self by using thought challenging and reaching out to the supports she does have more consistently. Benefited from group by identifying obstacles and solutions to desired reality.? Pt will continue IOP tx to increase mood stability, promote consistent skill application, and prevent decompensation. Narrative Note: []
--- NOTE | 2022-09-03 15:04 | BH.COMM_ITS ---
Communication Note - Communication with Client Communication Note: Met with patient to complete initial paperwork and discuss plan for treatment. Pt had been previously admitted to [facility] and discharged on 08/31/22 due to being admitted to inpatient psychiatric facility for a suicide attempt. Completed [facility] since last visit. High risk. Pt has hx of two recent suicide attempts this month via overdose on 25 Benadryl. Pt states she did not take the pills with intention to kill herself, but recognizes she did take the medication knowing it could hurt her. Pt has hx of self-harm behaviors and hx of purposefully making cuts/wounds worse to cause infections. Pt has not engaged in self-harm since 08/08/22. Denies suicidal thoughts, intention or plan since discharge from inpatient. Denies access to lethal means. Pt denies hx of HI, plan or intent. Discussed plan for client's treatment. Plan is for client to complete two weeks of IOP to give her self time to establish with her outpatient counselor. Has first appointment on 09/07/22. As long as pt is able to maintain safety and is reporting improved mood for the next two weeks she will be admitted to [facility] Aftercare program. Client stated she does not believe going to a different IOP would be of any help. Client stated she took the pills over the weekend because she was feeling anxious about feeling better. Client stated she doesn't know how to be stable because she's been struggling for the last four years. Agreed it would be helpful in outpatient counseling to learn how to be stable and learn social skills. Discussed importance of talking with her mom about getting a part-time job soon to give her purpose and something to do each week. Case discussed with Dr. Breen with plan to admit to [facility] level of care with dx of Major depressive disorder, recurrent, severe without psychosis, F33.2
--- NOTE | 2022-09-04 16:35 | BH.DS ---
Discharge Summary - Demographics Date of Admission:: 09/03/22 Discharge Date: 09/04/22 Presenting Problems at Admission:: The patient is a 22-year-old single, female with a history of depression, borderline personality disorder, factitious disorder, pseudoseizure and ADHD who did the [facility] program 07/20/22 - 08/31/22. Pt was discharged from [facility] due to suicide attempt and hospitalized at inpatient psychiatric facility. The patient has a long history of self-injurious behaviors that resulted in numerous infections, medical admissions and surgeries. She has a history of picking at wounds and causing them to become infected and has had numerous medical admissions this year long for the above. The patient also has a history of injecting herself subcutaneously with air into her face and neck causing subcutaneous emphysema. She endorses being down and depressed since she got discharged from the hospital on June 30. She endorses hopelessness, worthlessness, anhedonia, low energy, decreased concentration and guilt. The patient now admits that she has intentionally caused her wounds to become infected in the past. The patient endorses passive thoughts of and fleeting, daily passive suicidal ideation. She denies active suicidal ideation, plan for suicide, homicidal ideation, hallucinations or delusions or symptoms of yana ever. Discharge Diagnoses:: 1. F33.2 Major depressive disorder, recurrent, severe without psychosis. 2. Borderline personality disorder. 3. Generalized anxiety disorder. 4. Factitious disorder. 5. History of pseudoseizure conversion disorder Reason for Discharge:: Client admitted to inpatient psychiatric facility due to suicide attempt via overdose. - Treatment Progress During Treatment & Response: No progress observed. Pt only attended [facility] for one day. Issues Still to be Addressed:: Emotion regulation, challenging negative thoughts, increasing consistent use of healthy coping skills, learning how to accept and be okay with stability, and increase socialization. Discharge Recommendations/Instructions:: Pt recommended to follow discharge instructions from inpatient psychiatric facility. Recommended residential facility due to this being client's third suicide attempt in 3 weeks. Pt has contact information for residential facility in [place]. Discharge Handout: Complete Discharge Handout with client on aftercare options and continuity of care.
== END 2022-09-04 11:00 | disposition short-term general hospital (02) ==
LOC: BHIOP 09:00
PROVIDERS: PCP Student in an Organized Health Care Education/Training Program; Visit Provider Psychiatry & Neurology Psychiatry
DX: F33.2 Major depressive disorder, recurrent severe without psychotic features (principal)
CPT/HCPCS: H2020

== ENCOUNTER 2023-01-06 10:45 | Outpatient (RCR) | payer MEDICAID, SELFPAY ==
[2022-12-28 14:03] VITALS: BP 129/67; PULSE 69; TEMP 36.1; BMI 48.9
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
[2023-01-06 10:50] VITALS: BP 130/75; PULSE 109; RESP 22; TEMP 36.8; BMI 48.9
--- NOTE | 2023-01-06 12:35 | PCM.WC.PN ---
History of Present Illness Date of Service: 01/06/23 Chief Complaint: non-healing surgical wounds of left medial and lateral leg History of Wound: Patient is a 22 year old female who presents to the wound healing center for evaluation of nonhealing surgical wounds of left left medial and lateral leg. Patient is a poor historian. Reviewed notes from [facility], she had been admitted to [facility] around 11/27/22 for cellulitis and worsening infection of her left lower leg. She ended having an I&D of her left medial leg, left lateral leg and left lateral thigh. She was diagnosed with necrotizing fasciitis. Her wound cultures were positive for Enterococcus and steno. Mycoplasma IGG and IgM (+). She was sent to [facility] on 2 weeks dapto, arthur, clinda, levaquin, and micafungin. Changed Dap to to Vanc. On 12/12 stopped vanc/levaquin/arthur and started IV fluc due to diagnosis of candidemia. She was discharged home from [facility] around the second week of December. She has a history of significant for depression, personality disorder, self harm, anxiety, asthma, recurrent cellulitis and ADHD and most recently Afib and tachycardia. She states that she did not cause these wounds and did not do anything to them to make them worse. She has a history of tampering with wounds. Wound culture obtained Today she denies fever, chills, nausea or vomiting. Progress of Wound: She is complaining today of left calf pain that started last week after she was seen at the wound center. She denies a history of blood clots. Her pain is worse when she flexes her left foot. Will order an ultrasound to rule out DVT. Her left medial leg ulcer and left lateral leg ulcer are improving in size, they are both beefy pink. The left medial leg ulcer brenna wound is excoriated from the wound VAC drape. Objective Data Objective Data Vital Signs: Vital Signs Temp Pulse Resp BP 98.3 F 109 H 22 H 130/75 H 01/06/23 10:50 01/06/23 10:50 01/06/23 10:50 01/06/23 10:50 Weight: 276 lb Body Mass Index (BMI) 48.9 Lab / Micro Data Micro: Microbiology 12/29/22 Unknown Wound Abcess - Leg, Left Gram Stain - Final 12/29/22 Unknown Wound Abcess - Leg, Left Wound Culture - Final Enterococcus faecalis Corynebacterium amycolatum Staphylococcus epidermidis 12/29/22 Unknown Wound Abcess - Leg, Left Anaerobic Culture - Final No anaerobic bacteria isolated. Charges/Coding Procedures Integumentary [id number]: [id number] Stephany subq tissue 20 sq cm/< Debridement Note Debridement Note Wound debrided: medial leg ulcer and left lateral leg ulcer Laterality: Left Wound Grade/Stage: Stage IV Type of Debridement: Excisional debridement Anesthesia Used: 4% Lidocaine Solution and 5% Lidocaine Gel Depth: Down to and including healthy tissue, in the subcutaneous layer and to muscle Percentage of wound debrided: 100 Instrument Used: 7mm curette Tissue Removed: devitalized tissue and slough,into the muscle Severity: Fat Layer Exposed Bleeding Controlled with: Pressure and Compression and gauze Patient tolerated procedure: Patient tolerated procedure well Post-Debridement Measurements and Additional Note: Post-Debridement Measurements/Treatment WC - Nurse 1 - General Ulcer Assessment Start: 12/28/22 14:00 Freq: Status: Active Protocol: BOBO Activity Type Activity Date Activity User E-sign Co-sign Detail Recorded Client Recorded Date Recorded By Document 12/28/22 14:03 AK [id number] 12/28/22 14:18 AK Document 01/06/23 10:50 DL [id number] 01/06/23 11:06 DL 12/28/22 01/06/23 14:03 10:50 WC - Today's Visit Information Type of service Initial Visit Follow-up Visit (Physician/RESIDENTIAL DESIGNER ) Arrival Mode Ambulatory Ambulatory Transfer Assistance None Patient Identification Verified (Name & Yes Yes ) Patient Requires Transmission-Based No No Precautions Safety Precautions NA Height and Weight Height 5 ft 3 in Weight 276 lb Weight in Pounds 276.0 lbs Body Mass Index (BMI) 48.9 48.9 BMI Classification Obese Obese BSA - Charles 2.22 Vital Signs Temperature (97.8 F-99.1 F) 96.9 F L 98.3 F Temperature Source Temporal Temporal Pulse Rate (60-100) 69 109 H Pulse Location Monitor Monitor Respiratory Rate (12-18) 22 H Respiratory rate source Observation Blood Pressure (90/60-120/80) 129/67 H 130/75 H Blood Pressure Mean (mm Hg) 87 93 Source Monitor Monitor History Since Last Visit- (Skip if this is Patient's initial visit) Have you changed medications since your No last visit? Any new allergies or adverse reactions No Had a fall/change in ADL's that may No increase risk of falls Signs or symptoms of abuse and/or No neglect since last visit Have you been in the hospital since your No last visit? Has dressing in place as prescribed Yes Has compression in place as prescribed Yes Has offloadiing in place as prescribed Yes Experienced any changes in pain level or No management Left Footwear Regular Shoe Right Footwear Regular Shoe Pain Scale: 0-10 Numeric Is Patient Pain Free? No Yes WC - Nurse 1 - General Ulcer Measurement Start: 12/28/22 14:00 Freq: Status: Active Protocol: Activity Type Activity Date Activity User E-sign Co-sign Detail Recorded Client Recorded Date Recorded By Document 12/28/22 14:03 AK [id number] 12/28/22 14:18 AK Document 01/06/23 10:50 DL [id number] 01/06/23 11:06 DL 12/28/22 01/06/23 14:03 10:50 Wound Center Nurse 1 #4- L MEDIAL DORSAL HAND -Combined with other wound No #6 L lateral Le -Current Size (cm) - Length 2.7 3 -Current Size (cm) - Width 0.2 1.1 -Current Size (cm) - Depth 0.2 1.7 -Total Square Cm 0.54 3.3 -Photo Taken Yes Yes -Tunneling No -Undermining/Tunneling No -Undermining/Tunneling Starts (O'clock 11 ) -Undermining/Tunneling Ends (O'clock) 12 -Maximum Distance (cm) 2 -Circular Undermining No -Change in Wound Grade/Stage No -Exudate Amt Small Medium -Exudate Type Serosanguineous Serosanguineous -Wound Margin Distinct, Distinct, Outline Outline Attached Attached -Granulation Amt Medium (34-66%) -Granulation Quality Carpenter Red -Slough/Fibrin No -Necrosis Amt None Present (0 Medium (34-66%) %) -Necrotic Tissue Type Adherent Slough -Structure Exposed N/A N/A -Texture (Brenna-wound Skin Appearance) No Abnormality, Scarring Assessed -Moisture (Brenna-wound Skin Appearance) No Abnormality, No Abnormality Assessed -Color (Brenna-wound Skin Appearance) No Abnormality, No Abnormality Assessed -Temperature (Brenna-wound Skin No Abnormality No Abnormality Appearance) (Pt Warm) (Pt Warm) -Tenderness on Palpation (Brenna-wound No No Skin Appearance) -Ulcer Cleansing Soap and Water Soap and Water -Foul Odor after Cleansing No No -Anesthetic Used 5% Lidocaine 4% Lidocaine Gel Solution -Wound Comment(s) steri stripped form surgeon #5 L medial LE -Current Size (cm) - Length 4.2 4.3 -Current Size (cm) - Width 3 3.4 -Current Size (cm) - Depth 1.1 1.3 -Total Square Cm 12.6 14.62 -Photo Taken Yes Yes -Tunneling No -Undermining/Tunneling No -Undermining/Tunneling Starts (O'clock 7 ) -Undermining/Tunneling Ends (O'clock) 11 -Maximum Distance (cm) 1.3 -Circular Undermining No -Change in Wound Grade/Stage No -Exudate Amt Medium Medium -Exudate Type Serosanguineous Serosanguineous -Wound Margin Distinct, Distinct, Outline Outline Attached Attached -Granulation Amt Small (1-33%) Medium (34-66%) -Granulation Quality Pale,Carpenter Red -Slough/Fibrin Yes -Necrosis Amt Small (1-33%) Medium (34-66%) -Necrotic Tissue Type Adherent Slough Adherent Slough -Structure Exposed N/A N/A -Texture (Brenna-wound Skin Appearance) No Abnormality, Excoriation, Assessed Scarring,Rash -Moisture (Brenna-wound Skin Appearance) No Abnormality, No Abnormality Assessed -Color (Brenna-wound Skin Appearance) No Abnormality, No Abnormality Assessed -Temperature (Brenna-wound Skin No Abnormality No Abnormality Appearance) (Pt Warm) (Pt Warm) -Tenderness on Palpation (Brenna-wound No No Skin Appearance) -Ulcer Cleansing Soap and Water Soap and Water -Foul Odor after Cleansing No No -Anesthetic Used 5% Lidocaine 4% Lidocaine Gel Solution -Wound Comment(s) brownish tint to tissue Right Calf (cm) 44.5 Right Ankle (cm) 25 Left Calf (cm) 45 46.5 Left Ankle (cm) 26.4 25.5 WC - Nurse 2 - General Ulcer CM Notes Start: 12/28/22 14:00 Freq: Status: Active Protocol: Activity Type Activity Date Activity User E-sign Co-sign Detail Recorded Client Recorded Date Recorded By Document 12/28/22 14:38 [id number] 12/28/22 14:53 Document 01/06/23 11:21 [id number] 01/06/23 11:24 12/28/22 01/06/23 14:38 11:21 Wound Center Nurse 2 #6 L lateral Le -Time 14:49 11:22 -Correct Patient No Yes -Correct Side, Site, Position No Yes -Correct Procedure No Yes -Procedure Performed No Yes -Type of Procedure Debridement Debridement -Clinical Debridement Muscle / Fascia Subcutaneous -Tissue Removed Subcutaneous, Subcutaneous Muscle -Post Debridement (cm) - Length 2.5 2.8 -Post Debridement (cm) - Width 0.5 1.2 -Post Debridement (cm) - Depth 1.9 1.4 -Total Square (Post) (cm) 1.25 3.36 -Area of Debridement (cm) - Length 2.5 2.8 -Area of Debridement (cm) - Width 0.5 1.2 -Total Square (Area) (cm) 1.25 3.36 -Tunneling Yes Yes -Tunneling Position (O'clock) 2 12 -Tunneling Distance (cm) 1.2 -Tunneling Position #2 (O'clock) 11 -Undermining/Tunneling No No -Circular Undermining No No -Wound/Ulcer Outcome Not Healed Not Healed -Ulcer Cleansing Rinsed/ Rinsed/ Irrigated with Irrigated with Saline Saline -Foul Odor after Cleansing No No -Bioengineered Tissue No No -Bleeding Controlled with Pressure Pressure -Treatment Response Procedure Procedure Tolerated Well Tolerated Well -Offloading No No -Debridement - Subq, 1st 20sq cm No -Debridement - Muscle / Fascia, 1st No 20sq cm #5 L medial LE -Time 14:39 11:23 -Correct Patient Yes Yes -Correct Side, Site, Position Yes Yes -Correct Procedure Yes Yes -Procedure Performed Yes Yes -Type of Procedure Debridement Debridement -Clinical Debridement Muscle / Fascia Subcutaneous -Tissue Removed Muscle,Fascia Subcutaneous -Post Debridement (cm) - Length 4.8 4.7 -Post Debridement (cm) - Width 4.0 3.2 -Post Debridement (cm) - Depth 1.0 0.7 -Total Square (Post) (cm) 19.20 15.04 -Area of Debridement (cm) - Length 4.8 4.7 -Area of Debridement (cm) - Width 4.0 3.2 -Total Square (Area) (cm) 19.20 15.04 -Tunneling No -Undermining/Tunneling Yes Yes -Undermining/Tunneling Starts (O'clock 5 5 ) -Undermining/Tunneling Ends (O'clock) 11 11 -Maximum Distance (cm) 1.0 0.8 -Circular Undermining No No -Wound/Ulcer Outcome Not Healed Not Healed -Ulcer Cleansing Rinsed/ Rinsed/ Irrigated with Irrigated with Saline Saline -Foul Odor after Cleansing No No -Bioengineered Tissue No No -Bleeding Controlled with Pressure Pressure -Treatment Response Procedure Procedure Tolerated Well Tolerated Well -Offloading No No -Debridement - Subq, 1st 20sq cm No Yes -Debridement - Muscle / Fascia, 1st Yes 20sq cm -Debridement, Muscle/Fascia, ea addt'l 1 20sq cm or part thereof Pain Scale: 0-10 Numeric Is Patient Pain Free? Yes Yes WC - Nurse 3 - General Ulcer D/C NN Start: 12/28/22 14:00 Freq: Status: Active Protocol: Activity Type Activity Date Activity User E-sign Co-sign Detail Recorded Client Recorded Date Recorded By Document 12/28/22 16:31 DL [id number] 12/28/22 16:34 DL Document 01/06/23 11:30 AK [id number] 01/06/23 11:31 AK 12/28/22 01/06/23 16:31 11:30 Wound Care Center Nurse 3 #6 L lateral Le -Ulcer Cleansing Soap and Water Rinsed/ Irrigated with Saline -Foul Odor after Cleansing No No -Negative Pressure Wound Therapy N/A -Primary Dressing Applied Hysept ($) -Other Dressing dakins today -Primary Dressing Covered/Secured with Dry Gauze, Dry Gauze, Secured with Secured with Tape Tape #5 L medial LE -Ulcer Cleansing Soap and Water Rinsed/ Irrigated with Saline -Foul Odor after Cleansing No No -Negative Pressure Wound Therapy Continue N/A -Setting (mmHg) 150 -Negative Pressure is Continuous -Other Dressing dakins today -Primary Dressing Covered/Secured with Dry Gauze, Secured with Tape -NPWT Application Charge NPWT </= 50 sq cm ($) Treatment Response Procedure Tolerated Well Pain Scale: 0-10 Numeric Is Patient Pain Free? Yes Yes WC - Visit Discharge Discharge Condition Stable Stable Ambulatory Status Ambulatory Ambulatory Transportation Private Auto Private Auto Medication Reconcilliation completed & Yes provided to patient/care provider Clinical Summary of Care Provided Yes Notes: Instruction given to mother for NPT dressing change . Voices understanding. Assessment/Plan Assessment/Plan (1) Ulcer of left lower extremity with fat layer exposed: CODE(S): L97.922 - Non-pressure chronic ulcer of unspecified part of left lower leg with fat layer exposed (2) History of incision and drainage: CODE(S): Z98.890 - Other specified postprocedural states (3) History of necrotizing fasciitis: CODE(S): Z87.39 - Personal history of other diseases of the musculoskeletal system and connective tissue (4) Asthma: CODE(S): J45.909 - Unspecified asthma, uncomplicated (5) Borderline personality disorder: CODE(S): F60.3 - Borderline personality disorder (6) Factitious disorder: CODE(S): F68.10 - Factitious disorder imposed on self, unspecified (7) Major depressive disorder, recurrent severe without psychotic features: CODE(S): F33.2 - Major depressive disorder, recurrent severe without psychotic features (8) Depression: CODE(S): F32.9 - Major depressive disorder, single episode, unspecified QUALIFIERS: Depression Type: major depressive disorder Major depression recurrence: recurrent Active/Remission status: currently active Major depression episode severity: severe Psychotic features: without psychotic features Qualified Code(s): F33.2 - Major depressive disorder, recurrent severe without psychotic features (9) GERD (gastroesophageal reflux disease): CODE(S): K21.9 - Gastro-esophageal reflux disease without esophagitis QUALIFIERS: Esophagitis presence: esophagitis presence not specified Qualified Code(s): K21.9 - Gastro-esophageal reflux disease without esophagitis (10) ADHD (attention deficit hyperactivity disorder): CODE(S): F90.9 - Attention-deficit hyperactivity disorder, unspecified type QUALIFIERS: Attention deficit-hyperactivity disorder type: combined inattentive-hyperactive Qualified Code(s): F90.2 - Attention-deficit hyperactivity disorder, combined type PLAN: Plan Patient evaluated at the wound healing center today. She has a complex history with cellulitis, picking or self harm to cause wounds and tampering with her wounds. She also has a significant/complex mental health history. Wound care - Will take a VAC holiday this week to let her brenna wound heal. Will pack both the medial and lateral left leg ulcers with Dakin's 0.25% covered with gauze and ABD daily. Will apply to have approval of wound VAC for the left lateral leg ulcer. Wound Culture obtained 12/29/22 positive for Enterococcus faecalis, Corynebacterium amycolatum, and Staphylococcus epidermidis. She saw her PCP last week before the culture results were back and he started her on Levaquin and Doxycycline. Will stop the Levaquin and start Augmentin and continue the Doxycycline. Compression - MOHINI wrap on left leg for compression. She is currently being seen by infection disease. Dr. Aguilar followed her while she was at [facility] in [place] and she is scheduled to follow up with him here in [place] next 01/13/23. She followed up last week with [facility] in [place]. They performed her I&D while she as hospitalized. They are recommending placing the wound VAC on the left lateral leg, as is the patient's mother, to help prevent tampering with the ulcers. Follow up one week. Call or come in sooner if develop any concerns.
--- NOTE | 2023-01-06 13:02 | VDLE_ITS ---
Reason For Study: Left calf pain Procedure LEFT This is a venous duplex using B-mode, color GSV is normal. flow and spectral Doppler. CFV is compressible, spontaneous, phasic, Exam performed in department. competent, and demonstrates normal Calf veins not visualized below mid calf due augmentation. to bandages. FV is compressible, spontaneous, phasic, A preliminary report was called and/or faxed competent and demonstrates normal to Therese [employer] @[facility]. augmentation. POP V is compressible, spontaneous, phasic, competent and demonstrates normal augmentation. T/P Trunk is compressible. PTV is compressible. LT PerV is compressible. VL/Venous Duplex US, Unilateral Interpretation Summary Deep veins of the left lower extremity are patent and compressible segmentally. There is no evidence of left lower extremity deep vein thrombosis. Valvular competence appears intac t within the proximal deep venous system on the left . The left great saphenous vein appears patent a nd compressible segmentally. Portions of the deep venous system in the left distal calf were no t visualized due to the presence of bandages. Clinical correlation is advised. Ordering Physician: Hilary Saleh Referring Physician: Андрей Bailey Performed By: Veronica Martinez RVT
== END 2023-01-06 23:59 | disposition home or self-care (01) ==
LOC: WC 10:45
PROVIDERS: PCP Student in an Organized Health Care Education/Training Program; Referring Provider Student in an Organized Health Care Education/Training Program; Visit Provider Nurse Practitioner Family
DX: L97.922 Non-pressure chronic ulcer of unspecified part of left lower leg with fat layer exposed (principal); M72.6 Necrotizing fasciitis; F33.2 Major depressive disorder, recurrent severe without psychotic features; F60.3 Borderline personality disorder; Z80.0 Family history of malignant neoplasm of digestive organs; F90.2 Attention-deficit hyperactivity disorder, combined type; J45.909 Unspecified asthma, uncomplicated; F41.1 Generalized anxiety disorder; F68.10 Factitious disorder imposed on self, unspecified; K21.9 Gastro-esophageal reflux disease without esophagitis; Z98.890 Other specified postprocedural states; Z87.39 Personal history of other diseases of the musculoskeletal system and connective tissue
CPT/HCPCS: 11042; 11043; 11046; 87070; 87075; 87077; 87186; 87205; 93971; 97605; 99214; G0463

== ENCOUNTER → 2023-01-06 | Outpatient (CLI) | payer MEDICAID, SELFPAY | END | disposition home or self-care (01) | LOC: CVS 12:58 | PROVIDERS: PCP Student in an Organized Health Care Education/Training Program; Referring Provider Nurse Practitioner Family; Visit Provider Nurse Practitioner Family | DX: M79.662 Pain in left lower leg (principal) ==

== ENCOUNTER 2023-02-03 11:00 | Outpatient (RCR) | payer MEDICAID, SELFPAY ==
[2023-01-07 00:05] VITALS: BP 130/75; PULSE 109; RESP 22; TEMP 36.8; BMI 48.9
[2023-01-13 13:36] VITALS: BP 145/90; PULSE 107; RESP 16; TEMP 36.4; BMI 48.9
--- NOTE | 2023-01-13 14:00 | PN.PCM_ITS ---
History of Present Illness Date of Service: 01/13/23 Chief Complaint: non-healing surgical wounds of left medial and lateral leg History of Wound: Patient is a 22 year old female who presents to the wound healing center for evaluation of nonhealing surgical wounds of left left medial and lateral leg. Patient is a poor historian. Reviewed notes from [facility], she had been admitted to [facility] around 11/27/22 for cellulitis and worsening infection of her left lower leg. She ended having an I&D of her left medial leg, left lateral leg and left lateral thigh. She was diagnosed with necrotizing fasciitis. Her wound cultures were positive for Enterococcus and steno. Mycoplasma IGG and IgM (+). She was sent to [facility] on 2 weeks dapto, arthur, clinda, levaquin, and micafungin. Changed Dap to to Vanc. On 12/12 stopped vanc/levaquin/arthur and started IV fluc due to diagnosis of candidemia. She was discharged home from [facility] around the second week of December. She has a history of significant for depression, personality disorder, self harm, anxiety, asthma, recurrent cellulitis and ADHD and most recently Afib and tachycardia. She states that she did not cause these wounds and did not do anything to them to make them worse. She has a history of tampering with wounds. Wound culture obtained on 12/29/22 which was positive for Enterococcus faecalis, Corynebacterium amycolatum, and MRSE. She was treated with Augmentin and Doxycycline. Left leg ultrasound obtained on 01/06/23 which showed There is no evidence of left lower extremity deep vein thrombosis. Today she denies fever, chills, nausea or vomiting. Progress of Wound: Her left calf pain has resolved. Ultrasound showed no evidence of DVT. Left lateral leg ulcer is smaller and the undermining has decreased. The wound bed is beefy pink. Left medial leg ulcer is smaller in size. Brenna wound is clear this week after taking a wound VAC holiday for a week. Objective Data Objective Data Vital Signs: Vital Signs Temp Pulse Resp BP O2 Del Method 97.6 F L 107 H 16 145/90 H Room Air 01/13/23 13:36 01/13/23 13:36 01/13/23 13:36 01/13/23 13:36 01/13/23 13:36 Oxygen Delivery Method Room Air Weight: 276 lb Body Mass Index (BMI) 48.9 Charges/Coding Procedures Integumentary 111xxx-113xx: [id number] Stephany subq tissue 20 sq cm/< Debridement Note Debridement Note Wound debrided: medial leg ulcer and left lateral leg ulcer Laterality: Left Wound Grade/Stage: Stage IV Type of Debridement: Excisional debridement Anesthesia Used: 4% Lidocaine Solution and 5% Lidocaine Gel Depth: Down to and including healthy tissue and in the subcutaneous layer Percentage of wound debrided: 100 Instrument Used: 7mm curette Tissue Removed: devitalized tissue and slough Severity: Fat Layer Exposed Bleeding Controlled with: Pressure and Compression and gauze Patient tolerated procedure: Patient tolerated procedure well Post-Debridement Measurements and Additional Note: Post-Debridement Measurements/Treatment - Nurse 1 - General Ulcer Assessment Start: 01/13/23 13:36 Freq: Status: Active Protocol: .YOUNG Activity Type Activity Date Activity User E-sign Co-sign Detail Recorded Client Recorded Date Recorded By Document 01/13/23 13:36 [facility] [id number] 01/13/23 13:44 [facility] 01/13/23 13:36 - Today's Visit Information Type of service Follow-up Visit (Physician/ARTERIAL EMBALMER ) Arrival Mode Ambulatory Transfer Assistance None Accompanied by mom Patient Identification Verified (Name & Yes ) Patient Requires Transmission-Based No Precautions Height and Weight Body Mass Index (BMI) 48.9 BMI Classification Obese Vital Signs Temperature (97.8 F-99.1 F) 97.6 F L Temperature Source Temporal Pulse Rate (60-100) 107 H Pulse Location Monitor Respiratory Rate (12-18) 16 Respiratory rate source Observation Oxygen Delivery Method Room Air Blood Pressure (90/60-120/80) 145/90 H Blood Pressure Mean (mm Hg) 108 Source Monitor Position Sitting Blood Pressure Location Right Arm History Since Last Visit- (Skip if this is Patient's initial visit) Have you changed medications since your No last visit? Any new allergies or adverse reactions No Had a fall/change in ADL's that may No increase risk of falls Signs or symptoms of abuse and/or No neglect since last visit Have you been in the hospital since your No last visit? Has dressing in place as prescribed Yes Has compression in place as prescribed Yes Has offloadiing in place as prescribed N/A Experienced any changes in pain level or No management Left Footwear Regular Shoe Right Footwear Regular Shoe Pain Scale: 0-10 Numeric Is Patient Pain Free? Yes WC - Nurse 1 - General Ulcer Measurement Start: 01/13/23 13:36 Freq: Status: Active Protocol: Activity Type Activity Date Activity User E-sign Co-sign Detail Recorded Client Recorded Date Recorded By Document 01/13/23 13:36 [facility] [id number] 01/13/23 13:44 [facility] 01/13/23 13:36 Wound Center Nurse 1 #6 L lateral Le -Combined with other wound No -Current Size (cm) - Length 2.8 -Current Size (cm) - Width 1 -Current Size (cm) - Depth 1.5 -Total Square Cm 2.8 -Epithelialization Small 1-33% -Tunneling No -Undermining/Tunneling Yes -Undermining/Tunneling Starts (O'clock 10 ) -Undermining/Tunneling Ends (O'clock) 12 -Maximum Distance (cm) 0.9 -Circular Undermining No -Exudate Amt Medium -Exudate Type Serosanguineous -Wound Margin Distinct, Outline Attached -Granulation Amt Large (67-100%) -Granulation Quality Red -Texture (Brenna-wound Skin Appearance) Assessed, Scarring -Moisture (Brenna-wound Skin Appearance) Assessed -Color (Brenna-wound Skin Appearance) Assessed -Temperature (Brenna-wound Skin No Abnormality Appearance) (Pt Warm) -Tenderness on Palpation (Brenna-wound No Skin Appearance) -Ulcer Cleansing Soap and Water -Foul Odor after Cleansing No -Anesthetic Used 4% Lidocaine Solution #5 L medial LE -Combined with other wound No -Current Size (cm) - Length 5 -Current Size (cm) - Width 4 -Current Size (cm) - Depth 1.5 -Total Square Cm 20 -Epithelialization Small 1-33% -Tunneling No -Undermining/Tunneling Yes -Undermining/Tunneling Starts (O'clock 7 ) -Undermining/Tunneling Ends (O'clock) 12 -Maximum Distance (cm) 2.3 -Circular Undermining No -Exudate Amt Medium -Exudate Type Serosanguineous -Wound Margin Distinct, Outline Attached -Granulation Amt Medium (34-66%) -Granulation Quality Red -Slough/Fibrin Yes -Necrosis Amt Medium (34-66%) -Necrotic Tissue Type Adherent Slough -Texture (Brenna-wound Skin Appearance) Assessed, Scarring -Moisture (Brenna-wound Skin Appearance) Assessed -Color (Brenna-wound Skin Appearance) Assessed -Temperature (Brenna-wound Skin No Abnormality Appearance) (Pt Warm) -Tenderness on Palpation (Brenna-wound No Skin Appearance) -Ulcer Cleansing Soap and Water -Foul Odor after Cleansing No -Anesthetic Used 4% Lidocaine Solution Left Calf (cm) 45.5 Left Ankle (cm) 25.4 WC - Nurse 2 - General Ulcer CM Notes Start: 01/13/23 13:36 Freq: Status: Active Protocol: Activity Type Activity Date Activity User E-sign Co-sign Detail Recorded Client Recorded Date Recorded By Document 01/13/23 14:00 [facility] [id number] 01/13/23 14:05 [facility] 01/13/23 14:00 Wound Center Nurse 2 #6 L lateral Le -Time 14:01 -Correct Patient Yes -Correct Side, Site, Position Yes -Correct Procedure Yes -Procedure Performed Yes -Type of Procedure Debridement -Clinical Debridement Subcutaneous -Tissue Removed Subcutaneous -Post Debridement (cm) - Length 3.0 -Post Debridement (cm) - Width 1.2 -Post Debridement (cm) - Depth 1.2 -Total Square (Post) (cm) 3.60 -Area of Debridement (cm) - Length 3.0 -Area of Debridement (cm) - Width 1.2 -Total Square (Area) (cm) 3.60 -Tunneling No -Undermining/Tunneling Yes -Undermining/Tunneling Starts (O'clock 12 ) -Maximum Distance (cm) 1.1 -Circular Undermining No -Wound/Ulcer Outcome Not Healed -Ulcer Cleansing Rinsed/ Irrigated with Saline -Foul Odor after Cleansing No -Bioengineered Tissue No -Bleeding Controlled with Pressure -Treatment Response Procedure Tolerated Well -Offloading No -Debridement - Subq, 1st 20sq cm No #5 L medial LE -Time 14:04 -Correct Patient Yes -Correct Side, Site, Position Yes -Correct Procedure Yes -Procedure Performed Yes -Type of Procedure Debridement -Clinical Debridement Subcutaneous -Tissue Removed Subcutaneous -Post Debridement (cm) - Length 5.5 -Post Debridement (cm) - Width 3.8 -Post Debridement (cm) - Depth 1.0 -Total Square (Post) (cm) 20.90 -Area of Debridement (cm) - Length 5.5 -Area of Debridement (cm) - Width 3.8 -Total Square (Area) (cm) 20.90 -Tunneling No -Undermining/Tunneling Yes -Undermining/Tunneling Starts (O'clock 9 ) -Undermining/Tunneling Ends (O'clock) 10 -Maximum Distance (cm) 2.5 -Circular Undermining No -Wound/Ulcer Outcome Not Healed -Ulcer Cleansing Rinsed/ Irrigated with Saline -Foul Odor after Cleansing No -Bioengineered Tissue No -Bleeding Controlled with Pressure -Treatment Response Procedure Tolerated Well -Offloading No -Debridement - Subq, 1st 20sq cm Yes -Debridement, SubQ, ea addt'l 20sq cm 1 or part thereof Pain Scale: 0-10 Numeric Is Patient Pain Free? Yes - Nurse 3 - General Ulcer D/C NN Start: 01/13/23 13:36 Freq: Status: Active Protocol: Activity Type Activity Date Activity User E-sign Co-sign Detail Recorded Client Recorded Date Recorded By Document 01/13/23 14:15 [facility] [id number] 01/13/23 14:26 [facility] 01/13/23 14:15 Wound Care Center Nurse 3 #6 L lateral Le -Ulcer Cleansing Rinsed/ Irrigated with Saline -Foul Odor after Cleansing No -Primary Dressing Applied Mepilex Border -Other Dressing dakins -Mepilex Border 1 #5 L medial LE -Ulcer Cleansing Rinsed/ Irrigated with Saline -Foul Odor after Cleansing No -Negative Pressure Wound Therapy Continue -Setting (mmHg) 150 -Negative Pressure is Continuous -NPWT Application Charge NPWT & Debridement (nc ) Left -Tubular Bandage Single Layer -Size of Tubigrip Used Size E -Size E ($) 1 Treatment Response Procedure Tolerated Well Pain Scale: 0-10 Numeric Is Patient Pain Free? Yes - Visit Discharge Discharge Condition Stable Ambulatory Status Cane Transportation Private Auto Assessment/Plan Assessment/Plan (1) Ulcer of left lower extremity with fat layer exposed: CODE(S): L97.922 - Non-pressure chronic ulcer of unspecified part of left lower leg with fat layer exposed (2) History of incision and drainage: CODE(S): Z98.890 - Other specified postprocedural states (3) History of necrotizing fasciitis: CODE(S): Z87.39 - Personal history of other diseases of the musculoskeletal system and connective tissue (4) Asthma: CODE(S): J45.909 - Unspecified asthma, uncomplicated (5) Borderline personality disorder: CODE(S): F60.3 - Borderline personality disorder (6) Factitious disorder: CODE(S): F68.10 - Factitious disorder imposed on self, unspecified (7) Major depressive disorder, recurrent severe without psychotic features: CODE(S): F33.2 - Major depressive disorder, recurrent severe without psychotic features (8) Depression: CODE(S): F32.9 - Major depressive disorder, single episode, unspecified QUALIFIERS: Depression Type: major depressive disorder Major depression recurrence: recurrent Active/Remission status: currently active Major depression episode severity: severe Psychotic features: without psychotic features Qualified Code(s): F33.2 - Major depressive disorder, recurrent severe without psychotic features (9) GERD (gastroesophageal reflux disease): CODE(S): K21.9 - Gastro-esophageal reflux disease without esophagitis QUALIFIERS: Esophagitis presence: esophagitis presence not specified Qualified Code(s): K21.9 - Gastro-esophageal reflux disease without esophagitis (10) ADHD (attention deficit hyperactivity disorder): CODE(S): F90.9 - Attention-deficit hyperactivity disorder, unspecified type QUALIFIERS: Attention deficit-hyperactivity disorder type: combined inattentive-hyperactive Qualified Code(s): F90.2 - Attention-deficit hyperactivity disorder, combined type PLAN: Plan Patient evaluated at the wound healing center today. She has a complex history with cellulitis, picking or self harm to cause wounds and tampering with her wounds. She also has a significant/complex mental health history. Wound care - Will restart the wound VAC on the left medial leg ulcer. She has been approved for the wound VAC to the left lateral leg ulcer but has not received the [employer] yet. Will continue to pack the lateral left leg ulcer with Dakin's 0.25% covered with gauze and ABD daily until she receives all her supplies, then will start the wound VAC on the lateral leg ulcer also. Wound Culture obtained 12/29/22 positive for Enterococcus faecalis, Corynebacterium amycolatum, and Staphylococcus epidermidis. She saw her PCP last week before the culture results were back and he started her on Levaquin and Doxycycline. Will stop the Levaquin and start Augmentin and continue the Doxycycline. Compression - MOHINI wrap on left leg for compression. She is currently being seen by infection disease. Dr. Aguilar followed her while she was at [facility] in [place] and she is scheduled to follow up with him here today. He states that she can follow up with him as needed. She followed up last week with [facility] in [place]. They performed her I&D while she as hospitalized. They are recommending placing the wound VAC on the left lateral leg, as is the patient's mother, to help prevent tampering with the ulcers. Follow up one week. Call or come in sooner if develop any concerns.
--- NOTE | 2023-01-20 12:42 | PCM.WC.PN ---
History of Present Illness Date of Service: 01/20/23 Chief Complaint: non-healing surgical wounds of left medial and lateral leg History of Wound: Patient is a 22 year old female who presents to the wound healing center for evaluation of nonhealing surgical wounds of left left medial and lateral leg. Patient is a poor historian. Reviewed notes from [facility], she had been admitted to [facility] around 11/27/22 for cellulitis and worsening infection of her left lower leg. She ended having an I&D of her left medial leg, left lateral leg and left lateral thigh. She was diagnosed with necrotizing fasciitis. Her wound cultures were positive for Enterococcus and steno. Mycoplasma IGG and IgM (+). She was sent to [facility] on 2 weeks dapto, arthur, clinda, levaquin, and micafungin. Changed Dap to to Vanc. On 12/12 stopped vanc/levaquin/arthur and started IV fluc due to diagnosis of candidemia. She was discharged home from [facility] around the second week of December. She has a history of significant for depression, personality disorder, self harm, anxiety, asthma, recurrent cellulitis and ADHD and most recently Afib and tachycardia. She states that she did not cause these wounds and did not do anything to them to make them worse. She has a history of tampering with wounds. Wound culture obtained on 12/29/22 which was positive for Enterococcus faecalis, Corynebacterium amycolatum, and MRSE. She was treated with Augmentin and Doxycycline. Left leg ultrasound obtained on 01/06/23 which showed There is no evidence of left lower extremity deep vein thrombosis. Today she denies fever, chills, nausea or vomiting. Progress of Wound: Left lateral ulcer is much smaller, it is no longer into the muscle. The undermining at 12 o'clock is resolving. The left medial ulcer has a tunnel from 7-10 o'clock. Also the hailee wound of the medial ulcer is excoriated again this week. Objective Data Objective Data Vital Signs: Vital Signs Temp Pulse Resp BP O2 Del Method 97.6 F L 107 H 16 145/90 H Room Air 01/13/23 13:36 01/13/23 13:36 01/13/23 13:36 01/13/23 13:36 01/13/23 13:36 Oxygen Delivery Method Room Air Weight: 276 lb Body Mass Index (BMI) 48.9 Charges/Coding Procedures Integumentary 111xxx-113xx: 12518 Stephany subq tissue 20 sq cm/< (left lateral leg ulcer) Multi Select Codes Integumentary Integumentary CPT Codes: 17263 Stephany musc/fascia 20 sq cm/< (Left medial leg ulcer) Debridement Note Debridement Note Wound debrided: medial leg ulcer and left lateral leg ulcer Laterality: Left Wound Grade/Stage: Stage IV Type of Debridement: Excisional debridement Anesthesia Used: 4% Lidocaine Solution and 5% Lidocaine Gel Depth: Down to and including healthy tissue, in the subcutaneous layer (lateral leg ulcer) and to muscle (medial leg ulcer) Percentage of wound debrided: 100 Instrument Used: 7mm curette Tissue Removed: devitalized tissue and slough Severity: Fat Layer Exposed Bleeding Controlled with: Pressure and Compression and gauze Patient tolerated procedure: Patient tolerated procedure well Debridement Free Text: Left medial leg ulcer is into the muscle. Post-Debridement Measurements and Additional Note: Post-Debridement Measurements/Treatment - Nurse 1 - General Ulcer Assessment Start: 01/13/23 13:36 Freq: Status: Active Protocol: .LOWEXT Activity Type Activity Date Activity User E-sign Co-sign Detail Recorded Client Recorded Date Recorded By Document 01/13/23 13:36 [facility] [id number] 01/13/23 13:44 [facility] 01/13/23 13:36 - Today's Visit Information Type of service Follow-up Visit (Physician/[employer] ) Arrival Mode Ambulatory Transfer Assistance None Accompanied by mom Patient Identification Verified (Name & Yes ) Patient Requires Transmission-Based No Precautions Height and Weight Body Mass Index (BMI) 48.9 BMI Classification Obese Vital Signs Temperature (97.8 F-99.1 F) 97.6 F L Temperature Source Temporal Pulse Rate (60-100) 107 H Pulse Location Monitor Respiratory Rate (12-18) 16 Respiratory rate source Observation Oxygen Delivery Method Room Air Blood Pressure (90/60-120/80) 145/90 H Blood Pressure Mean (mm Hg) 108 Source Monitor Position Sitting Blood Pressure Location Right Arm History Since Last Visit- (Skip if this is Patient's initial visit) Have you changed medications since your No last visit? Any new allergies or adverse reactions No Had a fall/change in ADL's that may No increase risk of falls Signs or symptoms of abuse and/or No neglect since last visit Have you been in the hospital since your No last visit? Has dressing in place as prescribed Yes Has compression in place as prescribed Yes Has offloadiing in place as prescribed N/A Experienced any changes in pain level or No management Left Footwear Regular Shoe Right Footwear Regular Shoe Pain Scale: 0-10 Numeric Is Patient Pain Free? Yes WC - Nurse 1 - General Ulcer Measurement Start: 01/13/23 13:36 Freq: Status: Active Protocol: Activity Type Activity Date Activity User E-sign Co-sign Detail Recorded Client Recorded Date Recorded By Document 01/13/23 13:36 [facility] [id number] 01/13/23 13:44 [facility] 01/13/23 13:36 Wound Center Nurse 1 #6 L lateral Le -Combined with other wound No -Current Size (cm) - Length 2.8 -Current Size (cm) - Width 1 -Current Size (cm) - Depth 1.5 -Total Square Cm 2.8 -Epithelialization Small 1-33% -Tunneling No -Undermining/Tunneling Yes -Undermining/Tunneling Starts (O'clock 10 ) -Undermining/Tunneling Ends (O'clock) 12 -Maximum Distance (cm) 0.9 -Circular Undermining No -Exudate Amt Medium -Exudate Type Serosanguineous -Wound Margin Distinct, Outline Attached -Granulation Amt Large (67-100%) -Granulation Quality Red -Texture (Hailee-wound Skin Appearance) Assessed, Scarring -Moisture (Hailee-wound Skin Appearance) Assessed -Color (Hailee-wound Skin Appearance) Assessed -Temperature (Hailee-wound Skin No Abnormality Appearance) (Pt Warm) -Tenderness on Palpation (Hailee-wound No Skin Appearance) -Ulcer Cleansing Soap and Water -Foul Odor after Cleansing No -Anesthetic Used 4% Lidocaine Solution #5 L medial LE -Combined with other wound No -Current Size (cm) - Length 5 -Current Size (cm) - Width 4 -Current Size (cm) - Depth 1.5 -Total Square Cm 20 -Epithelialization Small 1-33% -Tunneling No -Undermining/Tunneling Yes -Undermining/Tunneling Starts (O'clock 7 ) -Undermining/Tunneling Ends (O'clock) 12 -Maximum Distance (cm) 2.3 -Circular Undermining No -Exudate Amt Medium -Exudate Type Serosanguineous -Wound Margin Distinct, Outline Attached -Granulation Amt Medium (34-66%) -Granulation Quality Red -Slough/Fibrin Yes -Necrosis Amt Medium (34-66%) -Necrotic Tissue Type Adherent Slough -Texture (Hailee-wound Skin Appearance) Assessed, Scarring -Moisture (Hailee-wound Skin Appearance) Assessed -Color (Hailee-wound Skin Appearance) Assessed -Temperature (Hailee-wound Skin No Abnormality Appearance) (Pt Warm) -Tenderness on Palpation (Hailee-wound No Skin Appearance) -Ulcer Cleansing Soap and Water -Foul Odor after Cleansing No -Anesthetic Used 4% Lidocaine Solution Left Calf (cm) 45.5 Left Ankle (cm) 25.4 WC - Nurse 2 - General Ulcer CM Notes Start: 01/13/23 13:36 Freq: Status: Active Protocol: Activity Type Activity Date Activity User E-sign Co-sign Detail Recorded Client Recorded Date Recorded By Document 01/13/23 14:00 [facility] [id number] 01/13/23 14:05 [facility] Document 01/20/23 12:13 [id number] 01/20/23 12:20 01/13/23 01/20/23 14:00 12:13 Wound Center Nurse 2 #6 L lateral Le -Time 14:01 12:14 -Correct Patient Yes Yes -Correct Side, Site, Position Yes Yes -Correct Procedure Yes Yes -Procedure Performed Yes Yes -Type of Procedure Debridement Debridement -Clinical Debridement Subcutaneous Subcutaneous -Tissue Removed Subcutaneous Subcutaneous -Post Debridement (cm) - Length 3.0 3.5 -Post Debridement (cm) - Width 1.2 1.3 -Post Debridement (cm) - Depth 1.2 0.9 -Total Square (Post) (cm) 3.60 4.55 -Area of Debridement (cm) - Length 3.0 3.5 -Area of Debridement (cm) - Width 1.2 1.3 -Total Square (Area) (cm) 3.60 4.55 -Tunneling No No -Undermining/Tunneling Yes No -Undermining/Tunneling Starts (O'clock 12 ) -Maximum Distance (cm) 1.1 -Circular Undermining No No -Wound/Ulcer Outcome Not Healed Not Healed -Ulcer Cleansing Rinsed/ Rinsed/ Irrigated with Irrigated with Saline Saline -Foul Odor after Cleansing No No -Bioengineered Tissue No No -Bleeding Controlled with Pressure Pressure -Treatment Response Procedure Procedure Tolerated Well Tolerated Well -Offloading No No -Debridement - Subq, 1st 20sq cm No Yes -Debridement - Muscle / Fascia, 1st No 20sq cm #5 L medial LE -Time 14:04 12:15 -Correct Patient Yes Yes -Correct Side, Site, Position Yes Yes -Correct Procedure Yes Yes -Procedure Performed Yes Yes -Type of Procedure Debridement Debridement -Clinical Debridement Subcutaneous Muscle / Fascia -Tissue Removed Subcutaneous Muscle,Fascia -Post Debridement (cm) - Length 5.5 5.5 -Post Debridement (cm) - Width 3.8 3.5 -Post Debridement (cm) - Depth 1.0 1.0 -Total Square (Post) (cm) 20.90 19.25 -Area of Debridement (cm) - Length 5.5 5.5 -Area of Debridement (cm) - Width 3.8 3.5 -Total Square (Area) (cm) 20.90 19.25 -Tunneling No No -Undermining/Tunneling Yes Yes -Undermining/Tunneling Starts (O'clock 9 7 ) -Undermining/Tunneling Ends (O'clock) 10 10 -Maximum Distance (cm) 2.5 3.2 -Circular Undermining No No -Wound/Ulcer Outcome Not Healed Not Healed -Ulcer Cleansing Rinsed/ Rinsed/ Irrigated with Irrigated with Saline Saline -Foul Odor after Cleansing No No -Bioengineered Tissue No No -Bleeding Controlled with Pressure Pressure -Treatment Response Procedure Procedure Tolerated Well Tolerated Well -Offloading No No -Debridement - Subq, 1st 20sq cm Yes -Debridement, SubQ, ea addt'l 20sq cm 1 or part thereof -Debridement - Muscle / Fascia, 1st Yes 20sq cm Pain Scale: 0-10 Numeric Is Patient Pain Free? Yes Yes WC - Nurse 3 - General Ulcer D/C NN Start: 01/13/23 13:36 Freq: Status: Active Protocol: Activity Type Activity Date Activity User E-sign Co-sign Detail Recorded Client Recorded Date Recorded By Document 01/13/23 14:15 [facility] [id number] 01/13/23 14:26 [facility] Document 01/20/23 12:34 [facility] [id number] 01/20/23 12:35 [facility] 01/13/23 01/20/23 14:15 12:34 Wound Care Center Nurse 3 #6 L lateral Le -Ulcer Cleansing Rinsed/ Soap and Water Irrigated with Saline -Foul Odor after Cleansing No No -Negative Pressure Wound Therapy Continue -Setting (mmHg) 150 -Primary Dressing Applied Mepilex Border -Other Dressing dakins vac applied per ak senior java software developer -NPWT Application Charge NPWT & Debridement (nc ) -Mepilex Border 1 #5 L medial LE -Ulcer Cleansing Rinsed/ Soap and Water Irrigated with Saline -Foul Odor after Cleansing No No -Negative Pressure Wound Therapy Continue Continue -Setting (mmHg) 150 150 -Negative Pressure is Continuous Continuous -Other Dressing vac applied per ak senior java software developer -NPWT Application Charge NPWT & NPWT & Debridement (nc Debridement (nc ) ) Left -Tubular Bandage Single Layer Double Layer -Size of Tubigrip Used Size E Size E -Size E ($) 1 1 Treatment Response Procedure Procedure Tolerated Well Tolerated Well Pain Scale: 0-10 Numeric Is Patient Pain Free? Yes Yes WC - Visit Discharge Discharge Condition Stable Stable Ambulatory Status Cane Ambulatory Transportation Private Auto Private Auto Accompanied by mom Assessment/Plan Assessment/Plan (1) Ulcer of left lower extremity with fat layer exposed: CODE(S): L97.922 - Non-pressure chronic ulcer of unspecified part of left lower leg with fat layer exposed (2) History of incision and drainage: CODE(S): Z98.890 - Other specified postprocedural states (3) History of necrotizing fasciitis: CODE(S): Z87.39 - Personal history of other diseases of the musculoskeletal system and connective tissue (4) Asthma: CODE(S): J45.909 - Unspecified asthma, uncomplicated (5) Borderline personality disorder: CODE(S): F60.3 - Borderline personality disorder (6) Factitious disorder: CODE(S): F68.10 - Factitious disorder imposed on self, unspecified (7) Major depressive disorder, recurrent severe without psychotic features: CODE(S): F33.2 - Major depressive disorder, recurrent severe without psychotic features (8) Depression: CODE(S): F32.9 - Major depressive disorder, single episode, unspecified QUALIFIERS: Depression Type: major depressive disorder Major depression recurrence: recurrent Active/Remission status: currently active Major depression episode severity: severe Psychotic features: without psychotic features Qualified Code(s): F33.2 - Major depressive disorder, recurrent severe without psychotic features (9) GERD (gastroesophageal reflux disease): CODE(S): K21.9 - Gastro-esophageal reflux disease without esophagitis QUALIFIERS: Esophagitis presence: esophagitis presence not specified Qualified Code(s): K21.9 - Gastro-esophageal reflux disease without esophagitis (10) ADHD (attention deficit hyperactivity disorder): CODE(S): F90.9 - Attention-deficit hyperactivity disorder, unspecified type QUALIFIERS: Attention deficit-hyperactivity disorder type: combined inattentive-hyperactive Qualified Code(s): F90.2 - Attention-deficit hyperactivity disorder, combined type PLAN: Plan Patient evaluated at the wound healing center today. She has a complex history with cellulitis, picking or self harm to cause wounds and tampering with her wounds. She also has a significant/complex mental health history. Wound care - Wound VAC on the left medial leg ulcer. She has been approved for the wound VAC to the left lateral leg ulcer and has received the Y-connector, her mom will be educated on how to use the Y-connector for the ulcers. Her hailee wound on the medial left leg is excoriated from the drape. Her mother would like to keep the VAC on to prevent patient from tampering with the ulcers. Will continue to monitor the hailee wound closely. Wound Culture obtained 12/29/22 positive for Enterococcus faecalis, Corynebacterium amycolatum, and Staphylococcus epidermidis. She saw her PCP last week before the culture results were back and he started her on Levaquin and Doxycycline. Will stop the Levaquin and start Augmentin and continue the Doxycycline. Compression - Tubigrip on left leg for compression. She followed up last week with [facility] in [place]. They performed her I&D while she as hospitalized. They are recommending placing the wound VAC on the left lateral leg, as is the patient's mother, to help prevent tampering with the ulcers. Follow up one week. Call or come in sooner if develop any concerns.
[2023-01-20 13:04] VITALS: BP 154/90; PULSE 105; TEMP 36.2; BMI 48.9
--- NOTE | 2023-01-22 13:59 | WC ---
Received a call from patient. Stated drainage is seeping around wound vac and has a strong odor. Josiane wants to know if [facility] [employer] wound like her on an ATB. Spoke with Hilary Saleh MANA[facility] RES[employer]. Notified of patient c/o drainage and odor. Hilary instructed for patient to check vac seal. Also instructed patient to wash wound on left lower extremity with soap and water at vac change today. If any other symptoms such as fever, chills, redness at site, increased drainage or change in color she is to go to ER for evaluation. Hilary will evaluate at next scheduled appt. Patient voiced understanding.
[2023-01-27 11:28] VITALS: BP 125/78; PULSE 99; TEMP 36.5; BMI 48.9
--- NOTE | 2023-01-27 13:29 | PCM.WC.PN ---
History of Present Illness Date of Service: 01/27/23 Chief Complaint: non-healing surgical wounds of left medial and lateral leg History of Wound: Patient is a 22 year old female who presents to the wound healing center for evaluation of nonhealing surgical wounds of left left medial and lateral leg. Patient is a poor historian. Reviewed notes from [facility], she had been admitted to [place] around 11/27/22 for cellulitis and worsening infection of her left lower leg. She ended having an I&D of her left medial leg, left lateral leg and left lateral thigh. She was diagnosed with necrotizing fasciitis. Her wound cultures were positive for Enterococcus and steno. Mycoplasma IGG and IgM (+). She was sent to [facility] on 2 weeks dapto, arthur, clinda, levaquin, and micafungin. Changed Dap to to Vanc. On 12/12 stopped vanc/levaquin/arthur and started IV fluc due to diagnosis of candidemia. She was discharged home from [facility] around the second week of December. She has a history of significant for depression, personality disorder, self harm, anxiety, asthma, recurrent cellulitis and ADHD and most recently Afib and tachycardia. She states that she did not cause these wounds and did not do anything to them to make them worse. She has a history of tampering with wounds. Wound culture obtained on 12/29/22 which was positive for Enterococcus faecalis, Corynebacterium amycolatum, and MRSE. She was treated with Augmentin and Doxycycline. Left leg ultrasound obtained on 01/06/23 which showed There is no evidence of left lower extremity deep vein thrombosis. Today she denies fever, chills, nausea or vomiting. Progress of Wound: Left lateral ulcer is smaller and there is no undermining at 12 o'clock. The left medial ulcer is stable with a tunnel at 10 o'clock. Also the brenna wound of the medial ulcer continues to be excoriated from the drape. Her mother is concerned that there is an increase in the drainage and there is a strong odor from the ulcers. Objective Data Objective Data Vital Signs: Vital Signs Temp Pulse Resp BP O2 Del Method 97.7 F L 99 16 125/78 H Room Air 01/27/23 11:28 01/27/23 11:28 01/13/23 13:36 01/27/23 11:28 01/13/23 13:36 Oxygen Delivery Method Room Air Weight: 276 lb Body Mass Index (BMI) 48.9 Charges/Coding Procedures Integumentary 111xxx-113xx: 42169 Stephany subq tissue 20 sq cm/< (left lateral leg ulcer) Add On Codes: 83926 Stephany subq tissue add-on Debridement Note Debridement Note Wound debrided: medial leg ulcer and left lateral leg ulcer Laterality: Left Wound Grade/Stage: Stage IV Type of Debridement: Excisional debridement Anesthesia Used: 4% Lidocaine Solution and 5% Lidocaine Gel Depth: Down to and including healthy tissue and in the subcutaneous layer (lateral leg ulcer) Percentage of wound debrided: 100 Instrument Used: 5mm curette and 7mm curette Tissue Removed: devitalized tissue and slough Severity: Fat Layer Exposed Bleeding Controlled with: Pressure and Compression and gauze Patient tolerated procedure: Patient tolerated procedure well Post-Debridement Measurements and Additional Note: Post-Debridement Measurements/Treatment - Nurse 1 - General Ulcer Assessment Start: 01/13/23 13:36 Freq: Status: Active Protocol: BOBO Activity Type Activity Date Activity User E-sign Co-sign Detail Recorded Client Recorded Date Recorded By Document 01/13/23 13:36 [facility] [id number] 01/13/23 13:44 [facility] Document 01/20/23 13:04 [id number] 01/20/23 13:07 Document 01/27/23 11:28 MS [id number] 01/27/23 11:32 AK 01/13/23 01/20/23 01/27/23 13:36 13:04 11:28 - Today's Visit Information Type of service Follow-up Visit Nurse-only Follow-up Visit (Physician/SEALER DRY CELL Visit (Physician/SEALER DRY CELL ) ) Arrival Mode Ambulatory Ambulatory Ambulatory Transfer Assistance None None Accompanied by mom Patient Identification Verified (Name & Yes Yes Yes ) Patient Requires Transmission-Based No No No Precautions Safety Precautions NA NA Height and Weight Body Mass Index (BMI) 48.9 48.9 48.9 BMI Classification Obese Obese Obese Vital Signs Temperature (97.8 F-99.1 F) 97.6 F L 97.1 F L 97.7 F L Temperature Source Temporal Temporal Temporal Pulse Rate (60-100) 107 H 105 H 99 Pulse Location Monitor Monitor Monitor Respiratory Rate (12-18) 16 Respiratory rate source Observation Oxygen Delivery Method Room Air Blood Pressure (90/60-120/80) 145/90 H 154/90 H 125/78 H Blood Pressure Mean (mm Hg) 108 111 93 Source Monitor Monitor Monitor Position Sitting Blood Pressure Location Right Arm History Since Last Visit- (Skip if this is Patient's initial visit) Have you changed medications since your No No No last visit? Any new allergies or adverse reactions No No No Had a fall/change in ADL's that may No No No increase risk of falls Signs or symptoms of abuse and/or No No No neglect since last visit Have you been in the hospital since your No No No last visit? Has dressing in place as prescribed Yes Yes Yes Has compression in place as prescribed Yes Yes Yes Has offloadiing in place as prescribed N/A N/A N/A Experienced any changes in pain level or No No No management Left Footwear Regular Shoe Regular Shoe Right Footwear Regular Shoe Regular Shoe Pain Scale: 0-10 Numeric Is Patient Pain Free? Yes No Yes - Nurse 1 - General Ulcer Measurement Start: 01/13/23 13:36 Freq: Status: Active Protocol: Activity Type Activity Date Activity User E-sign Co-sign Detail Recorded Client Recorded Date Recorded By Document 01/13/23 13:36 [facility] [id number] 01/13/23 13:44 [facility] Document 01/20/23 13:04 [id number] 01/20/23 13:07 Document 01/27/23 11:28 MS [id number] 01/27/23 11:32 AK 01/13/23 01/20/23 01/27/23 13:36 13:04 11:28 Wound Center Nurse 1 #6 L lateral Le -Combined with other wound No No -Current Size (cm) - Length 2.8 3 2.5 -Current Size (cm) - Width 1 1 0.9 -Current Size (cm) - Depth 1.5 1 0.8 -Total Square Cm 2.8 3 2.25 -Photo Taken No No -Epithelialization Small 1-33% None Present -Tunneling No No -Undermining/Tunneling Yes No -Undermining/Tunneling Starts (O'clock 10 ) -Undermining/Tunneling Ends (O'clock) 12 -Maximum Distance (cm) 0.9 -Circular Undermining No No -Change in Wound Grade/Stage No -Exudate Amt Medium Medium Medium -Exudate Type Serosanguineous Serosanguineous Serosanguineous -Wound Margin Distinct, Distinct, Distinct, Outline Outline Outline Attached Attached Attached -Granulation Amt Large (67-100%) Large (67-100%) Medium (34-66%) -Granulation Quality Red Red Red -Slough/Fibrin No -Necrosis Amt None Present (0 %) -Necrotic Tissue Type Adherent Slough -Structure Exposed N/A N/A -Texture (Brenna-wound Skin Appearance) Assessed, Assessed, Scarring,Rash Scarring Scarring,Rash -Moisture (Brenna-wound Skin Appearance) Assessed No Abnormality, No Abnormality Assessed -Color (Brenna-wound Skin Appearance) Assessed No Abnormality, Erythema Assessed -Temperature (Brenna-wound Skin No Abnormality No Abnormality No Abnormality Appearance) (Pt Warm) (Pt Warm) (Pt Warm) -Tenderness on Palpation (Brenna-wound No No No Skin Appearance) -Ulcer Cleansing Soap and Water Soap and Water Soap and Water -Foul Odor after Cleansing No No No -Anesthetic Used 4% Lidocaine 4% Lidocaine 4% Lidocaine Solution Solution Solution #5 L medial LE -Combined with other wound No No -Current Size (cm) - Length 5 4 4 -Current Size (cm) - Width 4 3.6 3.8 -Current Size (cm) - Depth 1.5 1.5 1.6 -Total Square Cm 20 14.4 15.2 -Photo Taken No -Epithelialization Small 1-33% -Tunneling No Yes -Tunneling Position (O'clock) 9 -Tunneling Distance (cm) 3 -Undermining/Tunneling Yes No -Undermining/Tunneling Starts (O'clock 7 ) -Undermining/Tunneling Ends (O'clock) 12 -Maximum Distance (cm) 2.3 -Circular Undermining No No -Change in Wound Grade/Stage No -Exudate Amt Medium Medium Medium -Exudate Type Serosanguineous Serosanguineous Serosanguineous -Wound Margin Distinct, Distinct, Distinct, Outline Outline Outline Attached Attached Attached -Granulation Amt Medium (34-66%) Large (67-100%) Medium (34-66%) -Granulation Quality [place] Red -Slough/Fibrin Yes Yes -Necrosis Amt Medium (34-66%) Small (1-33%) Medium (34-66%) -Necrotic Tissue Type Adherent Slough Adherent Slough -Structure Exposed N/A N/A -Texture (Brenna-wound Skin Appearance) Assessed, Assessed, Scarring,Rash Scarring Scarring,Rash -Moisture (Brenna-wound Skin Appearance) Assessed No Abnormality, No Abnormality Assessed -Color (Brenna-wound Skin Appearance) Assessed No Abnormality, Erythema Assessed -Temperature (Brenna-wound Skin No Abnormality No Abnormality No Abnormality Appearance) (Pt Warm) (Pt Warm) (Pt Warm) -Tenderness on Palpation (Brenna-wound No No No Skin Appearance) -Ulcer Cleansing Soap and Water Soap and Water Soap and Water -Foul Odor after Cleansing No No No -Anesthetic Used 4% Lidocaine 5% Lidocaine 4% Lidocaine Solution Gel Solution Left Calf (cm) 45.5 Left Ankle (cm) 25.4 WC - Nurse 2 - General Ulcer CM Notes Start: 01/13/23 13:36 Freq: Status: Active Protocol: Activity Type Activity Date Activity User E-sign Co-sign Detail Recorded Client Recorded Date Recorded By Document 01/13/23 14:00 [facility] [id number] 01/13/23 14:05 [facility] Document 01/20/23 12:13 [id number] 01/20/23 12:20 01/13/23 01/20/23 14:00 12:13 Wound Center Nurse 2 #6 L lateral Le -Time 14:01 12:14 -Correct Patient Yes Yes -Correct Side, Site, Position Yes Yes -Correct Procedure Yes Yes -Procedure Performed Yes Yes -Type of Procedure Debridement Debridement -Clinical Debridement Subcutaneous Subcutaneous -Tissue Removed Subcutaneous Subcutaneous -Post Debridement (cm) - Length 3.0 3.5 -Post Debridement (cm) - Width 1.2 1.3 -Post Debridement (cm) - Depth 1.2 0.9 -Total Square (Post) (cm) 3.60 4.55 -Area of Debridement (cm) - Length 3.0 3.5 -Area of Debridement (cm) - Width 1.2 1.3 -Total Square (Area) (cm) 3.60 4.55 -Tunneling No No -Undermining/Tunneling Yes No -Undermining/Tunneling Starts (O'clock 12 ) -Maximum Distance (cm) 1.1 -Circular Undermining No No -Wound/Ulcer Outcome Not Healed Not Healed -Ulcer Cleansing Rinsed/ Rinsed/ Irrigated with Irrigated with Saline Saline -Foul Odor after Cleansing No No -Bioengineered Tissue No No -Bleeding Controlled with Pressure Pressure -Treatment Response Procedure Procedure Tolerated Well Tolerated Well -Offloading No No -Debridement - Subq, 1st 20sq cm No Yes -Debridement - Muscle / Fascia, 1st No 20sq cm #5 L medial LE -Time 14:04 12:15 -Correct Patient Yes Yes -Correct Side, Site, Position Yes Yes -Correct Procedure Yes Yes -Procedure Performed Yes Yes -Type of Procedure Debridement Debridement -Clinical Debridement Subcutaneous Muscle / Fascia -Tissue Removed Subcutaneous Muscle,Fascia -Post Debridement (cm) - Length 5.5 5.5 -Post Debridement (cm) - Width 3.8 3.5 -Post Debridement (cm) - Depth 1.0 1.0 -Total Square (Post) (cm) 20.90 19.25 -Area of Debridement (cm) - Length 5.5 5.5 -Area of Debridement (cm) - Width 3.8 3.5 -Total Square (Area) (cm) 20.90 19.25 -Tunneling No No -Undermining/Tunneling Yes Yes -Undermining/Tunneling Starts (O'clock 9 7 ) -Undermining/Tunneling Ends (O'clock) 10 10 -Maximum Distance (cm) 2.5 3.2 -Circular Undermining No No -Wound/Ulcer Outcome Not Healed Not Healed -Ulcer Cleansing Rinsed/ Rinsed/ Irrigated with Irrigated with Saline Saline -Foul Odor after Cleansing No No -Bioengineered Tissue No No -Bleeding Controlled with Pressure Pressure -Treatment Response Procedure Procedure Tolerated Well Tolerated Well -Offloading No No -Debridement - Subq, 1st 20sq cm Yes -Debridement, SubQ, ea addt'l 20sq cm 1 or part thereof -Debridement - Muscle / Fascia, 1st Yes 20sq cm Pain Scale: 0-10 Numeric Is Patient Pain Free? Yes Yes WC - Nurse 3 - General Ulcer D/C NN Start: 01/13/23 13:36 Freq: Status: Active Protocol: Activity Type Activity Date Activity User E-sign Co-sign Detail Recorded Client Recorded Date Recorded By Document 01/13/23 14:15 [facility] [id number] 01/13/23 14:26 BM Document 01/20/23 12:34 [facility] [id number] 01/20/23 12:35 BM Document 01/27/23 12:04 AK [id number] 01/27/23 12:06 AK 01/13/23 01/20/23 01/27/23 14:15 12:34 12:04 Wound Care Center Nurse 3 #6 L lateral Le -Ulcer Cleansing Rinsed/ Soap and Water Rinsed/ Irrigated with Irrigated with Saline Saline -Foul Odor after Cleansing No No No -Negative Pressure Wound Therapy Continue -Setting (mmHg) 150 -Primary Dressing Applied Mepilex Border -Other Dressing dakins vac applied per [facility] curtain feller blindstitch -Primary Dressing Covered/Secured with Dry Gauze & Roll Gauze, Secured with Tape -NPWT Application Charge NPWT & Debridement (nc ) -Mepilex Border 1 #5 L medial LE -Ulcer Cleansing Rinsed/ Soap and Water Rinsed/ Irrigated with Irrigated with Saline Saline -Foul Odor after Cleansing No No No -Negative Pressure Wound Therapy Continue Continue -Setting (mmHg) 150 150 -Negative Pressure is Continuous Continuous -Other Dressing vac applied per [facility] curtain feller blindstitch -Primary Dressing Covered/Secured with Dry Gauze & Roll Gauze, Secured with Tape -NPWT Application Charge NPWT & NPWT & Debridement (nc Debridement (nc ) ) Left -Tubular Bandage Single Layer Double Layer -Size of Tubigrip Used Size E Size E -Size E ($) 1 1 -Other tubirip Treatment Response Procedure Procedure Procedure Tolerated Well Tolerated Well Tolerated Well Pain Scale: 0-10 Numeric Is Patient Pain Free? Yes Yes Yes WC - Visit Discharge Discharge Condition Stable Stable Stable Ambulatory Status Cane Ambulatory Ambulatory Transportation Private Auto Private Auto Private Auto Accompanied by mom Notes: Vac holiday today, mom to resume tomorrow Assessment/Plan Assessment/Plan (1) Ulcer of left lower extremity with fat layer exposed: CODE(S): L97.922 - Non-pressure chronic ulcer of unspecified part of left lower leg with fat layer exposed (2) History of incision and drainage: CODE(S): Z98.890 - Other specified postprocedural states (3) History of necrotizing fasciitis: CODE(S): Z87.39 - Personal history of other diseases of the musculoskeletal system and connective tissue (4) Asthma: CODE(S): J45.909 - Unspecified asthma, uncomplicated (5) Borderline personality disorder: CODE(S): F60.3 - Borderline personality disorder (6) Factitious disorder: CODE(S): F68.10 - Factitious disorder imposed on self, unspecified (7) Major depressive disorder, recurrent severe without psychotic features: CODE(S): F33.2 - Major depressive disorder, recurrent severe without psychotic features (8) Depression: CODE(S): F32.9 - Major depressive disorder, single episode, unspecified QUALIFIERS: Depression Type: major depressive disorder Major depression recurrence: recurrent Active/Remission status: currently active Major depression episode severity: severe Psychotic features: without psychotic features Qualified Code(s): F33.2 - Major depressive disorder, recurrent severe without psychotic features (9) GERD (gastroesophageal reflux disease): CODE(S): K21.9 - Gastro-esophageal reflux disease without esophagitis QUALIFIERS: Esophagitis presence: esophagitis presence not specified Qualified Code(s): K21.9 - Gastro-esophageal reflux disease without esophagitis (10) ADHD (attention deficit hyperactivity disorder): CODE(S): F90.9 - Attention-deficit hyperactivity disorder, unspecified type QUALIFIERS: Attention deficit-hyperactivity disorder type: combined inattentive-hyperactive Qualified Code(s): F90.2 - Attention-deficit hyperactivity disorder, combined type PLAN: Plan Patient evaluated at the wound healing center today. She has a complex history with cellulitis, picking or self harm to cause wounds and tampering with her wounds. She also has a significant/complex mental health history. Wound care - Wound VAC on the left medial and left lateral leg ulcers. Will take a VAC holiday today until she sees ortho tomorrow. Today will place Dakin's 0.25% moistened gauze covered with ABD. Place barrier cream such as aquaphore to the brenna wound areas. Tomorrow after her appointment with ortho, restart the wound VAC to both ulcers, using a Y-connector and the vac at 150 mmHg. Dressing to be changed 3 times per week. Wound Culture obtained 12/29/22 positive for Enterococcus faecalis, Corynebacterium amycolatum, and Staphylococcus epidermidis. Treated with Augmentin and continue the Doxycycline. A wound culture was obtained today.? A positive culture will necessitate antibiotic therapy. Compression - Tubigrip on left leg for compression. She sees [facility] in [place], they performed her I&D while she was hospitalized. Follow up one week. Call or come in sooner if develop any concerns.
[2023-02-03 11:18] VITALS: BP 139/78; PULSE 89; RESP 20; TEMP 36.8; BMI 48.9
--- NOTE | 2023-02-03 16:09 | PCM.WC.PN ---
History of Present Illness Date of Service: 02/03/23 Chief Complaint: non-healing surgical wounds of left medial and lateral leg History of Wound: Patient is a 22 year old female who presents to the wound healing center for evaluation of nonhealing surgical wounds of left left medial and lateral leg. Patient is a poor historian. Reviewed notes from [facility], she had been admitted to [facility] around 11/27/22 for cellulitis and worsening infection of her left lower leg. She ended having an I&D of her left medial leg, left lateral leg and left lateral thigh. She was diagnosed with necrotizing fasciitis. Her wound cultures were positive for Enterococcus and steno. Mycoplasma IGG and IgM (+). She was sent to [facility] on 2 weeks dapto, arthur, clinda, levaquin, and micafungin. Changed Dap to to Vanc. On 12/12 stopped vanc/levaquin/arthur and started IV fluc due to diagnosis of candidemia. She was discharged home from [facility] around the second week of December. She has a history of significant for depression, personality disorder, self harm, anxiety, asthma, recurrent cellulitis and ADHD and most recently Afib and tachycardia. She states that she did not cause these wounds and did not do anything to them to make them worse. She has a history of tampering with wounds. Wound culture obtained on 12/29/22 which was positive for Enterococcus faecalis, Corynebacterium amycolatum, and MRSE. She was treated with Augmentin and Doxycycline. Wound culture obtained 01/28/23 which was positive for Enterococcus faecalis and Corynebacterium striatum. She was started on Augmentin. Left leg ultrasound obtained on 01/06/23 which showed There is no evidence of left lower extremity deep vein thrombosis. Today she denies fever, chills, nausea or vomiting. Progress of Wound: Left lateral ulcer is smaller. The brenna wound is excoriated from the wound vac drape. Her mother states that it is getting difficult to place the wound VAC foam into the ulcer since it is so small. The left medial ulcer is stable with a tunnel at 10 o'clock. Also the brenna wound on the medial leg ulcer is not excoriated today. Objective Data Objective Data Vital Signs: Vital Signs Temp Pulse Resp BP O2 Del Method 98.3 F 89 20 H 139/78 H Room Air 02/03/23 11:18 02/03/23 11:18 02/03/23 11:18 02/03/23 11:18 01/13/23 13:36 Oxygen Delivery Method Room Air Weight: 276 lb Body Mass Index (BMI) 48.9 Lab / Micro Data Micro: Microbiology 01/28/23 11:45 Wound Abcess - Leg, Left Gram Stain - Final 01/28/23 11:45 Wound Abcess - Leg, Left Wound Culture - Final Enterococcus faecalis Corynebacterium striatum 01/28/23 11:45 Wound Abcess - Leg, Left Anaerobic Culture - Final No anaerobic bacteria isolated. Charges/Coding Procedures Integumentary 111xxx-113xx: [id number] Stephany subq tissue 20 sq cm/< Add On Codes: 76763 Stephany subq tissue add-on Debridement Note Debridement Note Wound debrided: medial leg ulcer and left lateral leg ulcer Laterality: Left Wound Grade/Stage: Stage IV Type of Debridement: Excisional debridement Anesthesia Used: 4% Lidocaine Solution and 5% Lidocaine Gel Depth: Down to and including healthy tissue and in the subcutaneous layer (lateral leg ulcer) Percentage of wound debrided: 100 Instrument Used: 5mm curette and 7mm curette Tissue Removed: devitalized tissue and slough Severity: Fat Layer Exposed Bleeding Controlled with: Pressure and Compression and gauze Patient tolerated procedure: Patient tolerated procedure well Post-Debridement Measurements and Additional Note: Post-Debridement Measurements/Treatment WC - Nurse 1 - General Ulcer Assessment Start: 01/13/23 13:36 Freq: Status: Active Protocol: STALIN.YOUNG Activity Type Activity Date Activity User E-sign Co-sign Detail Recorded Client Recorded Date Recorded By Document 01/13/23 13:36 [facility] [id number] 01/13/23 13:44 BM Document 01/20/23 13:04 JF [id number] 01/20/23 13:07 JF Document 01/27/23 11:28 AK [id number] 01/27/23 11:32 AK Document 02/03/23 11:18 DL [id number] 02/03/23 11:29 DL 01/13/23 01/20/23 01/27/23 13:36 13:04 11:28 WC - Today's Visit Information Type of service Follow-up Visit Nurse-only Follow-up Visit (Physician/[employer] Visit (Physician/[employer] ) ) Arrival Mode Ambulatory Ambulatory Ambulatory Transfer Assistance None None Accompanied by mom Patient Identification Verified (Name & Yes Yes Yes ) Patient Requires Transmission-Based No No No Precautions Safety Precautions NA NA Height and Weight Body Mass Index (BMI) 48.9 48.9 48.9 BMI Classification Obese Obese Obese Vital Signs Temperature (97.8 F-99.1 F) 97.6 F L 97.1 F L 97.7 F L Temperature Source Temporal Temporal Temporal Pulse Rate (60-100) 107 H 105 H 99 Pulse Location Monitor Monitor Monitor Respiratory Rate (12-18) 16 Respiratory rate source Observation Oxygen Delivery Method Room Air Blood Pressure (90/60-120/80) 145/90 H 154/90 H 125/78 H Blood Pressure Mean (mm Hg) 108 111 93 Source Monitor Monitor Monitor Position Sitting Blood Pressure Location Right Arm History Since Last Visit- (Skip if this is Patient's initial visit) Have you changed medications since your No No No last visit? Any new allergies or adverse reactions No No No Had a fall/change in ADL's that may No No No increase risk of falls Signs or symptoms of abuse and/or No No No neglect since last visit Have you been in the hospital since your No No No last visit? Has dressing in place as prescribed Yes Yes Yes Has compression in place as prescribed Yes Yes Yes Has offloadiing in place as prescribed N/A N/A N/A Experienced any changes in pain level or No No No management Left Footwear Regular Shoe Regular Shoe Right Footwear Regular Shoe Regular Shoe Pain Scale: 0-10 Numeric Is Patient Pain Free? Yes No Yes 02/03/23 11:18 WC - Today's Visit Information Type of service Follow-up Visit (Physician/[employer] ) Arrival Mode Ambulatory Transfer Assistance None Accompanied by Patient Identification Verified (Name & Yes ) Patient Requires Transmission-Based No Precautions Safety Precautions Height and Weight Body Mass Index (BMI) 48.9 BMI Classification Obese Vital Signs Temperature (97.8 F-99.1 F) 98.3 F Temperature Source Temporal Pulse Rate (60-100) 89 Pulse Location Monitor Respiratory Rate (12-18) 20 H Respiratory rate source Observation Oxygen Delivery Method Blood Pressure (90/60-120/80) 139/78 H Blood Pressure Mean (mm Hg) 98 Source Monitor Position Blood Pressure Location History Since Last Visit- (Skip if this is Patient's initial visit) Have you changed medications since your No last visit? Any new allergies or adverse reactions No Had a fall/change in ADL's that may No increase risk of falls Signs or symptoms of abuse and/or No neglect since last visit Have you been in the hospital since your No last visit? Has dressing in place as prescribed Yes Has compression in place as prescribed Yes Has offloadiing in place as prescribed N/A Experienced any changes in pain level or No management Left Footwear Right Footwear Pain Scale: 0-10 Numeric Is Patient Pain Free? Yes WC - Nurse 1 - General Ulcer Measurement Start: 01/13/23 13:36 Freq: Status: Active Protocol: Activity Type Activity Date Activity User E-sign Co-sign Detail Recorded Client Recorded Date Recorded By Document 01/13/23 13:36 [facility] [id number] 01/13/23 13:44 [facility] Document 01/20/23 13:04 JF [id number] 01/20/23 13:07 Document 01/27/23 11:28 AK [id number] 01/27/23 11:32 AK Document 02/03/23 11:18 DL [id number] 02/03/23 11:29 DL 01/13/23 01/20/23 01/27/23 13:36 13:04 11:28 Wound Center Nurse 1 #6 L lateral Le -Combined with other wound No No -Current Size (cm) - Length 2.8 3 2.5 -Current Size (cm) - Width 1 1 0.9 -Current Size (cm) - Depth 1.5 1 0.8 -Total Square Cm 2.8 3 2.25 -Photo Taken No No -Epithelialization Small 1-33% None Present -Tunneling No No -Undermining/Tunneling Yes No -Undermining/Tunneling Starts (O'clock 10 ) -Undermining/Tunneling Ends (O'clock) 12 -Maximum Distance (cm) 0.9 -Circular Undermining No No -Change in Wound Grade/Stage No -Exudate Amt Medium Medium Medium -Exudate Type Serosanguineous Serosanguineous Serosanguineous -Wound Margin Distinct, Distinct, Distinct, Outline Outline Outline Attached Attached Attached -Granulation Amt Large (67-100%) Large (67-100%) Medium (34-66%) -Granulation Quality Red Red Red -Slough/Fibrin No -Necrosis Amt None Present (0 %) -Necrotic Tissue Type Adherent Slough -Structure Exposed N/A N/A -Texture (Brenna-wound Skin Appearance) Assessed, Assessed, Scarring,Rash Scarring Scarring,Rash -Moisture (Brenna-wound Skin Appearance) Assessed No Abnormality, No Abnormality Assessed -Color (Brenna-wound Skin Appearance) Assessed No Abnormality, Erythema Assessed -Temperature (Brenna-wound Skin No Abnormality No Abnormality No Abnormality Appearance) (Pt Warm) (Pt Warm) (Pt Warm) -Tenderness on Palpation (Brenna-wound No No No Skin Appearance) -Ulcer Cleansing Soap and Water Soap and Water Soap and Water -Foul Odor after Cleansing No No No -Anesthetic Used 4% Lidocaine 4% Lidocaine 4% Lidocaine Solution Solution Solution #5 L medial LE -Combined with other wound No No -Current Size (cm) - Length 5 4 4 -Current Size (cm) - Width 4 3.6 3.8 -Current Size (cm) - Depth 1.5 1.5 1.6 -Total Square Cm 20 14.4 15.2 -Photo Taken No -Epithelialization Small 1-33% -Tunneling No Yes -Tunneling Position (O'clock) 9 -Tunneling Distance (cm) 3 -Undermining/Tunneling Yes No -Undermining/Tunneling Starts (O'clock 7 ) -Undermining/Tunneling Ends (O'clock) 12 -Maximum Distance (cm) 2.3 -Circular Undermining No No -Change in Wound Grade/Stage No -Exudate Amt Medium Medium Medium -Exudate Type Serosanguineous Serosanguineous Serosanguineous -Wound Margin Distinct, Distinct, Distinct, Outline Outline Outline Attached Attached Attached -Granulation Amt Medium (34-66%) Large (67-100%) Medium (34-66%) -Granulation Quality Red [place] Red -Slough/Fibrin Yes Yes -Necrosis Amt Medium (34-66%) Small (1-33%) Medium (34-66%) -Necrotic Tissue Type Adherent Slough Adherent Slough -Structure Exposed N/A N/A -Texture (Brenna-wound Skin Appearance) Assessed, Assessed, Scarring,Rash Scarring Scarring,Rash -Moisture (Brenna-wound Skin Appearance) Assessed No Abnormality, No Abnormality Assessed -Color (Brenna-wound Skin Appearance) Assessed No Abnormality, Erythema Assessed -Temperature (Brenna-wound Skin No Abnormality No Abnormality No Abnormality Appearance) (Pt Warm) (Pt Warm) (Pt Warm) -Tenderness on Palpation (Brenna-wound No No No Skin Appearance) -Ulcer Cleansing Soap and Water Soap and Water Soap and Water -Foul Odor after Cleansing No No No -Anesthetic Used 4% Lidocaine 5% Lidocaine 4% Lidocaine Solution Gel Solution Left Calf (cm) 45.5 Left Ankle (cm) 25.4 02/03/23 11:18 Wound Center Nurse 1 #6 L lateral Le -Combined with other wound -Current Size (cm) - Length 3.1 -Current Size (cm) - Width 1.5 -Current Size (cm) - Depth 0.5 -Total Square Cm 4.65 -Photo Taken -Epithelialization -Tunneling -Undermining/Tunneling -Undermining/Tunneling Starts (O'clock ) -Undermining/Tunneling Ends (O'clock) -Maximum Distance (cm) -Circular Undermining -Change in Wound Grade/Stage -Exudate Amt Small -Exudate Type Serosanguineous -Wound Margin Distinct, Outline Attached -Granulation Amt Large (67-100%) -Granulation Quality Pale -Slough/Fibrin -Necrosis Amt Small (1-33%) -Necrotic Tissue Type Adherent Slough -Structure Exposed N/A -Texture (Brenna-wound Skin Appearance) Scarring,Rash -Moisture (Brenna-wound Skin Appearance) No Abnormality -Color (Brenna-wound Skin Appearance) No Abnormality -Temperature (Brenna-wound Skin No Abnormality Appearance) (Pt Warm) -Tenderness on Palpation (Brenna-wound No Skin Appearance) -Ulcer Cleansing Soap and Water -Foul Odor after Cleansing No -Anesthetic Used 5% Lidocaine Gel #5 L medial LE -Combined with other wound -Current Size (cm) - Length 5.5 -Current Size (cm) - Width 3.8 -Current Size (cm) - Depth 1.2 -Total Square Cm 20.90 -Photo Taken -Epithelialization -Tunneling -Tunneling Position (O'clock) -Tunneling Distance (cm) -Undermining/Tunneling -Undermining/Tunneling Starts (O'clock ) -Undermining/Tunneling Ends (O'clock) -Maximum Distance (cm) -Circular Undermining -Change in Wound Grade/Stage -Exudate Amt Medium -Exudate Type Serosanguineous -Wound Margin Distinct, Outline Attached -Granulation Amt Large (67-100%) -Granulation Quality [place] -Slough/Fibrin -Necrosis Amt Small (1-33%) -Necrotic Tissue Type Adherent Slough -Structure Exposed N/A -Texture (Brenna-wound Skin Appearance) Scarring,Rash -Moisture (Brenna-wound Skin Appearance) No Abnormality -Color (Brenna-wound Skin Appearance) No Abnormality -Temperature (Brenna-wound Skin No Abnormality Appearance) (Pt Warm) -Tenderness on Palpation (Brenna-wound No Skin Appearance) -Ulcer Cleansing Soap and Water -Foul Odor after Cleansing No -Anesthetic Used 5% Lidocaine Gel Left Calf (cm) 45.6 Left Ankle (cm) 26.4 WC - Nurse 2 - General Ulcer CM Notes Start: 01/13/23 13:36 Freq: Status: Active Protocol: Activity Type Activity Date Activity User E-sign Co-sign Detail Recorded Client Recorded Date Recorded By Document 01/13/23 14:00 [facility] [id number] 01/13/23 14:05 [facility] Document 01/20/23 12:13 [id number] 01/20/23 12:20 JF Document 01/27/23 15:02 PL [id number] 01/27/23 15:04 PL Edit Result 01/27/23 15:02 PL (1) [id number] 01/28/23 07:04 PL Document 02/03/23 11:39 [id number] 02/03/23 11:42 JF (1) #5 L medial LE - Debridement, SubQ, ea addt'l 20sq cm => 1 or part thereof 01/13/23 01/20/23 01/27/23 14:00 12:13 15:02 Wound Center Nurse 2 #6 L lateral Le -Time 14:01 12:14 11:38 -Correct Patient Yes Yes Yes -Correct Side, Site, Position Yes Yes Yes -Correct Procedure Yes Yes Yes -Procedure Performed Yes Yes Yes -Type of Procedure Debridement Debridement Debridement -Clinical Debridement Subcutaneous Subcutaneous Subcutaneous -Tissue Removed Subcutaneous Subcutaneous Subcutaneous -Post Debridement (cm) - Length 3.0 3.5 3.0 -Post Debridement (cm) - Width 1.2 1.3 1.2 -Post Debridement (cm) - Depth 1.2 0.9 0.6 -Total Square (Post) (cm) 3.60 4.55 3.60 -Area of Debridement (cm) - Length 3.0 3.5 3.0 -Area of Debridement (cm) - Width 1.2 1.3 1.2 -Total Square (Area) (cm) 3.60 4.55 3.60 -Tunneling No No No -Undermining/Tunneling Yes No No -Undermining/Tunneling Starts (O'clock 12 ) -Maximum Distance (cm) 1.1 -Circular Undermining No No No -Wound/Ulcer Outcome Not Healed Not Healed Not Healed -Ulcer Cleansing Rinsed/ Rinsed/ Rinsed/ Irrigated with Irrigated with Irrigated with Saline Saline Saline -Foul Odor after Cleansing No No No -Bioengineered Tissue No No No -Bleeding Controlled with Pressure Pressure Pressure -Treatment Response Procedure Procedure Procedure Tolerated Well Tolerated Well Tolerated Well -Offloading No No -Debridement - Subq, 1st 20sq cm No Yes No -Debridement - Muscle / Fascia, 1st No 20sq cm #5 L medial LE -Time 14:04 12:15 11:38 -Correct Patient Yes Yes Yes -Correct Side, Site, Position Yes Yes Yes -Correct Procedure Yes Yes Yes -Procedure Performed Yes Yes Yes -Type of Procedure Debridement Debridement Debridement -Clinical Debridement Subcutaneous Muscle / Fascia Subcutaneous -Tissue Removed Subcutaneous Muscle,Fascia Subcutaneous -Post Debridement (cm) - Length 5.5 5.5 5.5 -Post Debridement (cm) - Width 3.8 3.5 4.0 -Post Debridement (cm) - Depth 1.0 1.0 1.0 -Total Square (Post) (cm) 20.90 19.25 22.00 -Area of Debridement (cm) - Length 5.5 5.5 5.5 -Area of Debridement (cm) - Width 3.8 3.5 4.0 -Total Square (Area) (cm) 20.90 19.25 22.00 -Tunneling No No Yes -Tunneling Position (O'clock) 10 -Tunneling Distance (cm) 3.4 -Undermining/Tunneling Yes Yes No -Undermining/Tunneling Starts (O'clock 9 7 ) -Undermining/Tunneling Ends (O'clock) 10 10 -Maximum Distance (cm) 2.5 3.2 -Circular Undermining No No No -Wound/Ulcer Outcome Not Healed Not Healed Not Healed -Ulcer Cleansing Rinsed/ Rinsed/ Rinsed/ Irrigated with Irrigated with Irrigated with Saline Saline Saline -Foul Odor after Cleansing No No No -Bioengineered Tissue No No No -Bleeding Controlled with Pressure Pressure Pressure -Treatment Response Procedure Procedure Procedure Tolerated Well Tolerated Well Tolerated Well -Offloading No No -Debridement - Subq, 1st 20sq cm Yes Yes -Debridement, SubQ, ea addt'l 20sq cm 1 1 or part thereof -Debridement - Muscle / Fascia, 1st Yes 20sq cm Pain Scale: 0-10 Numeric Is Patient Pain Free? Yes Yes Yes 02/03/23 11:39 Wound Center Nurse 2 #6 L lateral Le -Time 11:39 -Correct Patient Yes -Correct Side, Site, Position Yes -Correct Procedure Yes -Procedure Performed Yes -Type of Procedure Debridement -Clinical Debridement Subcutaneous -Tissue Removed Subcutaneous -Post Debridement (cm) - Length 3.4 -Post Debridement (cm) - Width 1.3 -Post Debridement (cm) - Depth 0.5 -Total Square (Post) (cm) 4.42 -Area of Debridement (cm) - Length 3.4 -Area of Debridement (cm) - Width 1.3 -Total Square (Area) (cm) 4.42 -Tunneling No -Undermining/Tunneling No -Undermining/Tunneling Starts (O'clock ) -Maximum Distance (cm) -Circular Undermining No -Wound/Ulcer Outcome Not Healed -Ulcer Cleansing Rinsed/ Irrigated with Saline -Foul Odor after Cleansing No -Bioengineered Tissue No -Bleeding Controlled with Pressure -Treatment Response Procedure Tolerated Well -Offloading No -Debridement - Subq, 1st 20sq cm No -Debridement - Muscle / Fascia, 1st 20sq cm #5 L medial LE -Time 11:40 -Correct Patient Yes -Correct Side, Site, Position Yes -Correct Procedure Yes -Procedure Performed Yes -Type of Procedure Debridement -Clinical Debridement Subcutaneous -Tissue Removed Subcutaneous -Post Debridement (cm) - Length 5.5 -Post Debridement (cm) - Width 3.7 -Post Debridement (cm) - Depth 0.7 -Total Square (Post) (cm) 20.35 -Area of Debridement (cm) - Length 5.5 -Area of Debridement (cm) - Width 3.7 -Total Square (Area) (cm) 20.35 -Tunneling No -Tunneling Position (O'clock) -Tunneling Distance (cm) -Undermining/Tunneling Yes -Undermining/Tunneling Starts (O'clock 9 ) -Undermining/Tunneling Ends (O'clock) 10 -Maximum Distance (cm) 3.2 -Circular Undermining No -Wound/Ulcer Outcome Not Healed -Ulcer Cleansing Rinsed/ Irrigated with Saline -Foul Odor after Cleansing No -Bioengineered Tissue No -Bleeding Controlled with Pressure -Treatment Response Procedure Tolerated Well -Offloading No -Debridement - Subq, 1st 20sq cm Yes -Debridement, SubQ, ea addt'l 20sq cm or part thereof -Debridement - Muscle / Fascia, 1st 20sq cm Pain Scale: 0-10 Numeric Is Patient Pain Free? Yes WC - Nurse 3 - General Ulcer D/C NN Start: 01/13/23 13:36 Freq: Status: Active Protocol: Activity Type Activity Date Activity User E-sign Co-sign Detail Recorded Client Recorded Date Recorded By Document 01/13/23 14:15 [facility] [id number] 01/13/23 14:26 [facility] Document 01/20/23 12:34 [facility] [id number] 01/20/23 12:35 [facility] Document 01/27/23 12:04 ND [id number] 01/27/23 12:06 ND Document 02/03/23 11:54 DL [id number] 02/03/23 11:59 DL 01/13/23 01/20/23 01/27/23 14:15 12:34 12:04 Wound Care Center Nurse 3 #6 L lateral Le -Ulcer Cleansing Rinsed/ Soap and Water Rinsed/ Irrigated with Irrigated with Saline Saline -Foul Odor after Cleansing No No No -Negative Pressure Wound Therapy Continue -Setting (mmHg) 150 -Primary Dressing Applied Mepilex Border -Other Dressing dakins vac applied per zonia [employer] -Primary Dressing Covered/Secured with Dry Gauze & Roll Gauze, Secured with Tape -NPWT Application Charge NPWT & Debridement (nc ) -Aquacel AG 4x4 -Mepilex Border 1 #5 L medial LE -Ulcer Cleansing Rinsed/ Soap and Water Rinsed/ Irrigated with Irrigated with Saline Saline -Foul Odor after Cleansing No No No -Negative Pressure Wound Therapy Continue Continue -Setting (mmHg) 150 150 -Negative Pressure is Continuous Continuous -Other Dressing vac applied per zonia [employer] -Primary Dressing Covered/Secured with Dry Gauze & Roll Gauze, Secured with Tape -Other Covering -NPWT Application Charge NPWT & NPWT & Debridement (nc Debridement (nc ) ) Left -Tubular Bandage Single Layer Double Layer -Size of Tubigrip Used Size E Size E -Size E ($) 1 1 -Other tubirip Treatment Response Procedure Procedure Procedure Tolerated Well Tolerated Well Tolerated Well Pain Scale: 0-10 Numeric Is Patient Pain Free? Yes Yes Yes WC - Visit Discharge Discharge Condition Stable Stable Stable Ambulatory Status Cane Ambulatory Ambulatory Transportation Private Auto Private Auto Private Auto Accompanied by mom Notes: Vac holiday today, mom to resume tomorrow 02/03/23 11:54 Wound Care Center Nurse 3 #6 L lateral Le -Ulcer Cleansing Rinsed/ Irrigated with Saline -Foul Odor after Cleansing No -Negative Pressure Wound Therapy -Setting (mmHg) -Primary Dressing Applied Aquacel AG 4x4 -Other Dressing -Primary Dressing Covered/Secured with Dry Gauze, Secured with Tape -NPWT Application Charge -Aquacel AG 4x4 1 -Mepilex Border #5 L medial LE -Ulcer Cleansing Rinsed/ Irrigated with Saline -Foul Odor after Cleansing No -Negative Pressure Wound Therapy Continue -Setting (mmHg) 150 -Negative Pressure is Continuous -Other Dressing -Primary Dressing Covered/Secured with -Other Covering ABD for padding -NPWT Application Charge NPWT & Debridement (nc ) Left -Tubular Bandage Single Layer -Size of Tubigrip Used Size E -Size E ($) 1 -Other Treatment Response Pain Scale: 0-10 Numeric Is Patient Pain Free? Yes WC - Visit Discharge Discharge Condition Stable Ambulatory Status Ambulatory Transportation Private Auto Accompanied by Notes: Assessment/Plan Assessment/Plan (1) Ulcer of left lower extremity with fat layer exposed: CODE(S): L97.922 - Non-pressure chronic ulcer of unspecified part of left lower leg with fat layer exposed (2) History of incision and drainage: CODE(S): Z98.890 - Other specified postprocedural states (3) History of necrotizing fasciitis: CODE(S): Z87.39 - Personal history of other diseases of the musculoskeletal system and connective tissue (4) Asthma: CODE(S): J45.909 - Unspecified asthma, uncomplicated (5) Borderline personality disorder: CODE(S): F60.3 - Borderline personality disorder (6) Factitious disorder: CODE(S): F68.10 - Factitious disorder imposed on self, unspecified (7) Major depressive disorder, recurrent severe without psychotic features: CODE(S): F33.2 - Major depressive disorder, recurrent severe without psychotic features (8) Depression: CODE(S): F32.9 - Major depressive disorder, single episode, unspecified QUALIFIERS: Depression Type: major depressive disorder Major depression recurrence: recurrent Active/Remission status: currently active Major depression episode severity: severe Psychotic features: without psychotic features Qualified Code(s): F33.2 - Major depressive disorder, recurrent severe without psychotic features (9) GERD (gastroesophageal reflux disease): CODE(S): K21.9 - Gastro-esophageal reflux disease without esophagitis QUALIFIERS: Esophagitis presence: esophagitis presence not specified Qualified Code(s): K21.9 - Gastro-esophageal reflux disease without esophagitis (10) ADHD (attention deficit hyperactivity disorder): CODE(S): F90.9 - Attention-deficit hyperactivity disorder, unspecified type QUALIFIERS: Attention deficit-hyperactivity disorder type: combined inattentive-hyperactive Qualified Code(s): F90.2 - Attention-deficit hyperactivity disorder, combined type PLAN: Plan Patient evaluated at the wound healing center today. She has a complex history with cellulitis, picking or self harm to cause wounds and tampering with her wounds. She also has a significant/complex mental health history. Wound care - Wound VAC on the left medial leg ulcer at 150 mmHg to be changed 3 times per week. Will stop the VAC on the left lateral leg ulcer and place Silver alginate (preferably Silvercel non adherent dressing) covered with ABD or gauze daily. Place barrier cream such as aquaphore to the brenna wound area. Wound Culture obtained 12/29/22 positive for Enterococcus faecalis, Corynebacterium amycolatum, and Staphylococcus epidermidis. Treated with Augmentin and continue the Doxycycline. Wound culture obtained 01/28/23 which was positive for Enterococcus faecalis and Corynebacterium striatum. She was started on Augmentin. Mom voices concern that Josiane always cultures positive for Enterococcus. She questions if she is colonized for that bacteria. She states that Josiane was accused by the surgeon when this initially occurred that she was contaminating the ulcer with stool. Mother states that Josiane never did that. I did discuss that Enterococcus is typically a gut bacteria, but that does not mean actual stool needs to be in the ulcer in order to grow this bacteria. There are other ways it can be introduced. We discussed good hand hygiene. Making sure to wash hands before and after changing the dressing. Not touching the ulcers or dressings between dressing changes. We will treat her with Augmentin which the culture states the bacteria is sensitive to and continue to closely monitor. Compression - Tubigrip on left leg for compression. She sees [facility] in [place], they performed her I&D while she was hospitalized. Follow up one week. Call or come in sooner if develop any concerns.
== END 2023-02-05 23:59 | disposition home or self-care (01) ==
LOC: WC 11:00
PROVIDERS: PCP Student in an Organized Health Care Education/Training Program; Referring Provider Student in an Organized Health Care Education/Training Program; Visit Provider Nurse Practitioner Family
DX: L97.922 Non-pressure chronic ulcer of unspecified part of left lower leg with fat layer exposed (principal); M72.6 Necrotizing fasciitis; F60.3 Borderline personality disorder; F33.2 Major depressive disorder, recurrent severe without psychotic features; Z98.890 Other specified postprocedural states; Z87.39 Personal history of other diseases of the musculoskeletal system and connective tissue; J45.909 Unspecified asthma, uncomplicated; F68.10 Factitious disorder imposed on self, unspecified; F32.9 Major depressive disorder, single episode, unspecified; K21.9 Gastro-esophageal reflux disease without esophagitis; F90.2 Attention-deficit hyperactivity disorder, combined type
CPT/HCPCS: 11042; 11043; 11045; 87070; 87075; 87077; 87186; 87205

== ENCOUNTER 2023-02-24 11:00 | Outpatient (RCR) | payer MEDICAID, SELFPAY ==
[2023-02-06 00:24] VITALS: BP 139/78; PULSE 89; RESP 20; TEMP 36.8; BMI 48.9
[2023-02-10 11:07] VITALS: BP 118/84; PULSE 96; RESP 16; TEMP 36.6; BMI 48.9
--- NOTE | 2023-02-10 11:59 | PCM.WC.PN ---
History of Present Illness Date of Service: 02/10/23 Chief Complaint: non-healing surgical wounds of left medial and lateral leg History of Wound: Patient is a 22 year old female who presents to the wound healing center for evaluation of nonhealing surgical wounds of left left medial and lateral leg. Patient is a poor historian. Reviewed notes from [facility], she had been admitted to [place] around 11/27/22 for cellulitis and worsening infection of her left lower leg. She ended having an I&D of her left medial leg, left lateral leg and left lateral thigh. She was diagnosed with necrotizing fasciitis. Her wound cultures were positive for Enterococcus and steno. Mycoplasma IGG and IgM (+). She was sent to [facility] on 2 weeks dapto, arthur, clinda, levaquin, and micafungin. Changed Dap to to Vanc. On 12/12 stopped vanc/levaquin/arthur and started IV fluc due to diagnosis of candidemia. She was discharged home from [facility] around the second week of December. She has a history of significant for depression, personality disorder, self harm, anxiety, asthma, recurrent cellulitis and ADHD and most recently Afib and tachycardia. She states that she did not cause these wounds and did not do anything to them to make them worse. She has a history of being accused of tampering with wounds. Wound culture obtained on 12/29/22 which was positive for Enterococcus faecalis, Corynebacterium amycolatum, and MRSE. She was treated with Augmentin and Doxycycline. Wound culture obtained 01/28/23 which was positive for Enterococcus faecalis and Corynebacterium striatum. She was started on Augmentin. Left leg ultrasound obtained on 01/06/23 which showed There is no evidence of left lower extremity deep vein thrombosis. Today she denies fever, chills, nausea or vomiting. Progress of Wound: Left lateral ulcer is smaller. The brenna wound has improved with stopping the wound VAC. The left medial ulcer is stable with a tunnel at 10 o'clock into the muscle. . Also the brenna wound on the medial leg ulcer is slightly excoriated. Josiane has stated she has been having a fever on and off for the past couple days. The fevers have been running between 100.5- 101 F. Objective Data Objective Data Vital Signs: Vital Signs Temp Pulse Resp BP O2 Del Method 97.9 F 96 16 118/84 H Room Air 02/10/23 11:07 02/10/23 11:07 02/10/23 11:07 02/10/23 11:07 02/10/23 11:07 Oxygen Delivery Method Room Air Weight: 276 lb Body Mass Index (BMI) 48.9 Charges/Coding Procedures Integumentary 111xxx-113xx: 44935 Stephany musc/fascia 20 sq cm/< (left medial leg ulcer) Add On Codes: 74574 Stephany musc/fascia add-on (x1) Multi Select Codes Integumentary Integumentary CPT Codes: 65848 Stephany subq tissue 20 sq cm/< (left lateral leg ulcer) Debridement Note Debridement Note Wound debrided: medial leg ulcer and left lateral leg ulcer Laterality: Left Wound Grade/Stage: Stage IV Type of Debridement: Excisional debridement Anesthesia Used: 4% Lidocaine Solution and 5% Lidocaine Gel Depth: Down to and including healthy tissue and in the subcutaneous layer (lateral leg ulcer) Percentage of wound debrided: 100 Instrument Used: 5mm curette and 7mm curette Tissue Removed: devitalized tissue and slough Severity: Fat Layer Exposed Bleeding Controlled with: Pressure and Compression and gauze Patient tolerated procedure: Patient tolerated procedure well Debridement Free Text: Left medial leg ulcer is into the ulcer, left lateral leg ulcer is in subcutaneous tissue. Post-Debridement Measurements and Additional Note: Post-Debridement Measurements/Treatment - Nurse 1 - General Ulcer Assessment Start: 02/10/23 11:07 Freq: Status: Active Protocol: STALIN.YOUNG Activity Type Activity Date Activity User E-sign Co-sign Detail Recorded Client Recorded Date Recorded By Document 02/10/23 11:07 [id number] 02/10/23 11:28 02/10/23 11:07 - Today's Visit Information Type of service Follow-up Visit (Physician/TRACK SERVICE PERSON ) Arrival Mode Ambulatory Accompanied by mom Patient Identification Verified (Name & Yes ) Patient Requires Transmission-Based No Precautions Safety Precautions NA Height and Weight Body Mass Index (BMI) 48.9 BMI Classification Obese Vital Signs Temperature (97.8 F-99.1 F) 97.9 F Temperature Source Temporal Pulse Rate (60-100) 96 Pulse Location Monitor Respiratory Rate (12-18) 16 Respiratory rate source Observation Oxygen Delivery Method Room Air Blood Pressure (90/60-120/80) 118/84 H Blood Pressure Mean (mm Hg) 95 Source Monitor Position Semi-Fowlers Blood Pressure Location Left Forearm History Since Last Visit- (Skip if this is Patient's initial visit) Have you changed medications since your No last visit? Any new allergies or adverse reactions No Had a fall/change in ADL's that may No increase risk of falls Signs or symptoms of abuse and/or No neglect since last visit Have you been in the hospital since your No last visit? Has dressing in place as prescribed Yes Has compression in place as prescribed Yes Has offloadiing in place as prescribed No Experienced any changes in pain level or No management Left Footwear Slipper Right Footwear Slipper Pain Scale: 0-10 Numeric Is Patient Pain Free? No LLE -Description Burning -Intensity 8 -Radiation Location Knee to ankle -Pain Aggravating Factors ADL's,Standing, Walking -Alleviating Factors/Interventions None WC - Nurse 1 - General Ulcer Measurement Start: 02/10/23 11:07 Freq: Status: Active Protocol: Activity Type Activity Date Activity User E-sign Co-sign Detail Recorded Client Recorded Date Recorded By Document 02/10/23 11:07 KW [id number] 02/10/23 11:28 KW 02/10/23 11:07 Wound Center Nurse 1 #6 L lateral Le -Current Size (cm) - Length 3.5 -Current Size (cm) - Width 1.5 -Current Size (cm) - Depth 1.5 -Total Square Cm 5.25 -Photo Taken No -Epithelialization Medium 34-66% -Tunneling No -Undermining/Tunneling No -Circular Undermining No -Exudate Amt Small -Exudate Type Serosanguineous -Wound Margin Distinct, Outline Attached -Granulation Amt Medium (34-66%) -Granulation Quality Red -Slough/Fibrin No -Texture (Brenna-wound Skin Appearance) Assessed, Crepitus -Moisture (Brenna-wound Skin Appearance) Assessed -Color (Brenan-wound Skin Appearance) Assessed, Erythema -Temperature (Brenna-wound Skin No Abnormality Appearance) (Pt Warm) -Ulcer Cleansing Rinsed/ Irrigated with Saline -Anesthetic Used 5% Lidocaine Gel #5 L medial LE -Current Size (cm) - Length 4.2 -Current Size (cm) - Width 3.6 -Current Size (cm) - Depth 1.3 -Total Square Cm 15.12 -Photo Taken No -Epithelialization Medium 34-66% -Tunneling Yes -Tunneling Position (O'clock) 11 -Tunneling Distance (cm) 1.5 -Exudate Amt Medium -Exudate Type Serosanguineous -Wound Margin Distinct, Outline Attached -Granulation Amt Large (67-100%) -Granulation Quality Red -Slough/Fibrin No -Texture (Brenna-wound Skin Appearance) Assessed -Moisture (Brenna-wound Skin Appearance) Assessed, Weeping -Color (Brenna-wound Skin Appearance) Assessed, Erythema -Temperature (Brenna-wound Skin No Abnormality Appearance) (Pt Warm) -Ulcer Cleansing Rinsed/ Irrigated with Saline -Anesthetic Used 4% Lidocaine Solution Left Calf (cm) 49.1 Left Ankle (cm) 27.7 WC - Nurse 2 - General Ulcer CM Notes Start: 02/10/23 11:07 Freq: Status: Active Protocol: Activity Type Activity Date Activity User E-sign Co-sign Detail Recorded Client Recorded Date Recorded By Document 02/10/23 11:37 JOSELO [id number] 02/10/23 11:43 JOSELO 02/10/23 11:37 Wound Center Nurse 2 #6 L lateral Le -Time 11:37 -Correct Patient Yes -Correct Side, Site, Position Yes -Correct Procedure Yes -Procedure Performed Yes -Type of Procedure Debridement -Clinical Debridement Subcutaneous -Tissue Removed Subcutaneous -Post Debridement (cm) - Length 3.3 -Post Debridement (cm) - Width 1.7 -Post Debridement (cm) - Depth 0.5 -Total Square (Post) (cm) 5.61 -Area of Debridement (cm) - Length 3.3 -Area of Debridement (cm) - Width 1.7 -Total Square (Area) (cm) 5.61 -Tunneling No -Undermining/Tunneling No -Circular Undermining No -Wound/Ulcer Outcome Not Healed -Ulcer Cleansing Rinsed/ Irrigated with Saline -Foul Odor after Cleansing No -Bioengineered Tissue No -Bleeding Controlled with Pressure -Treatment Response Procedure Tolerated Well -Offloading No -Debridement - Subq, 1st 20sq cm Yes #5 L medial LE -Time 11:38 -Correct Patient Yes -Correct Side, Site, Position Yes -Correct Procedure Yes -Procedure Performed Yes -Type of Procedure Debridement -Clinical Debridement Muscle / Fascia -Tissue Removed Muscle,Fascia -Post Debridement (cm) - Length 4.4 -Post Debridement (cm) - Width 4.8 -Post Debridement (cm) - Depth 1.0 -Total Square (Post) (cm) 21.12 -Area of Debridement (cm) - Length 4.4 -Area of Debridement (cm) - Width 4.8 -Total Square (Area) (cm) 21.12 -Tunneling No -Undermining/Tunneling Yes -Undermining/Tunneling Starts (O'clock 9 ) -Undermining/Tunneling Ends (O'clock) 11 -Maximum Distance (cm) 2.8 -Circular Undermining No -Wound/Ulcer Outcome Not Healed -Ulcer Cleansing Rinsed/ Irrigated with Saline -Foul Odor after Cleansing No -Bioengineered Tissue No -Bleeding Controlled with Pressure, SURGIFOAM -Treatment Response Procedure Tolerated Well -Offloading No -Debridement - Muscle / Fascia, 1st Yes 20sq cm -Debridement, Muscle/Fascia, ea addt'l 1 20sq cm or part thereof Pain Scale: 0-10 Numeric Is Patient Pain Free? Yes Assessment/Plan Assessment/Plan (1) Ulcer of left lower extremity with fat layer exposed: CODE(S): L97.922 - Non-pressure chronic ulcer of unspecified part of left lower leg with fat layer exposed (2) History of incision and drainage: CODE(S): Z98.890 - Other specified postprocedural states (3) History of necrotizing fasciitis: CODE(S): Z87.39 - Personal history of other diseases of the musculoskeletal system and connective tissue (4) Asthma: CODE(S): J45.909 - Unspecified asthma, uncomplicated (5) Borderline personality disorder: CODE(S): F60.3 - Borderline personality disorder (6) Factitious disorder: CODE(S): F68.10 - Factitious disorder imposed on self, unspecified (7) Major depressive disorder, recurrent severe without psychotic features: CODE(S): F33.2 - Major depressive disorder, recurrent severe without psychotic features (8) Depression: CODE(S): F32.9 - Major depressive disorder, single episode, unspecified QUALIFIERS: Depression Type: major depressive disorder Major depression recurrence: recurrent Active/Remission status: currently active Major depression episode severity: severe Psychotic features: without psychotic features Qualified Code(s): F33.2 - Major depressive disorder, recurrent severe without psychotic features (9) GERD (gastroesophageal reflux disease): CODE(S): K21.9 - Gastro-esophageal reflux disease without esophagitis QUALIFIERS: Esophagitis presence: esophagitis presence not specified Qualified Code(s): K21.9 - Gastro-esophageal reflux disease without esophagitis (10) ADHD (attention deficit hyperactivity disorder): CODE(S): F90.9 - Attention-deficit hyperactivity disorder, unspecified type QUALIFIERS: Attention deficit-hyperactivity disorder type: combined inattentive-hyperactive Qualified Code(s): F90.2 - Attention-deficit hyperactivity disorder, combined type PLAN: Plan Patient evaluated at the wound healing center today. She has a complex history with cellulitis, picking or self harm to cause wounds and being accused of tampering with her wounds. She also has a significant/complex mental health history. Due to brenna wound excoriation on the medial leg ulcer, will take a wound vac holiday. Wound care - Will take a Wound VAC holiday on the left medial leg ulcer and place Dakin's 0.25% moistened gauze in covered with ABD daily. On left lateral leg ulcer place Silver alginate (preferably Silvercel non adherent dressing) covered with ABD or gauze daily. Place barrier cream such as aquaphore to the brenna wound area. Wound Culture obtained 12/29/22 positive for Enterococcus faecalis, Corynebacterium amycolatum, and Staphylococcus epidermidis. Treated with Augmentin and continue the Doxycycline. Wound culture obtained 01/28/23 which was positive for Enterococcus faecalis and Corynebacterium striatum. She was started on Augmentin. Mom voices concern that Josiane always cultures positive for Enterococcus. She questions if she is colonized for that bacteria. She states that Josiane was accused by the surgeon when this initially occurred that she was contaminating the ulcer with stool. Mother states that Josiane never did that. I did discuss that Enterococcus is typically a gut bacteria, but that does not mean actual stool needs to be in the ulcer in order to grow this bacteria. There are other ways it can be introduced. We discussed good hand hygiene. Making sure to wash hands before and after changing the dressing. Not touching the ulcers or dressings between dressing changes. We will treat her with Augmentin which the culture states the bacteria is sensitive to and continue to closely monitor. Compression - Tubigrip on left leg for compression. She sees [facility] in [place], they performed her I&D while she was hospitalized. Follow up one week. Call or come in sooner if develop any concerns. Stressed importance of watching for worsening symptoms with fever. Instructed to go to ED if develop worsening symptoms.
[2023-02-12 14:36] VITALS: BMI 48.9
[2023-02-17 11:15] VITALS: BP 106/76; PULSE 94; RESP 16; BMI 48.9
--- NOTE | 2023-02-17 12:01 | PN.PCM_ITS ---
History of Present Illness Date of Service: 02/17/23 Chief Complaint: non-healing surgical wounds of left medial and lateral leg History of Wound: Patient is a 22 year old female who presents to the wound healing center for evaluation of nonhealing surgical wounds of left left medial and lateral leg. Patient is a poor historian. Reviewed notes from [facility], she had been admitted to [place] around 11/27/22 for cellulitis and worsening infection of her left lower leg. She ended having an I&D of her left medial leg, left lateral leg and left lateral thigh. She was diagnosed with necrotizing fasciitis. Her wound cultures were positive for Enterococcus and steno. Mycoplasma IGG and IgM (+). She was sent to [facility] on 2 weeks dapto, arthur, clinda, levaquin, and micafungin. Changed Dap to to Vanc. On 12/12 stopped vanc/levaquin/arthur and started IV fluc due to diagnosis of candidemia. She was discharged home from [facility] around the second week of December. She has a history of significant for depression, personality disorder, self harm, anxiety, asthma, recurrent cellulitis and ADHD and most recently Afib and tachycardia. She states that she did not cause these wounds and did not do anything to them to make them worse. She has a history of being accused of tampering with wounds. Wound culture obtained on 12/29/22 which was positive for Enterococcus faecalis, Corynebacterium amycolatum, and MRSE. She was treated with Augmentin and Doxycycline. Wound culture obtained 01/28/23 which was positive for Enterococcus faecalis and Corynebacterium striatum. She was started on Augmentin. Left leg ultrasound obtained on 01/06/23 which showed There is no evidence of left lower extremity deep vein thrombosis. Today she denies fever, chills, nausea or vomiting. Progress of Wound: Left lateral ulcer is smaller. The brenna wound has improved with stopping the wound VAC. The left medial ulcer is stable with a tunnel at 10 o'clock into the muscle and not showing much improvement. The brenna wound on the medial leg ulcer is excoriated. She no longer is having fevers. Objective Data Objective Data Vital Signs: Vital Signs Temp Pulse Resp BP O2 Del Method 97.9 F 94 16 106/76 Room Air 02/10/23 11:07 02/17/23 11:15 02/17/23 11:15 02/17/23 11:15 02/10/23 11:07 Oxygen Delivery Method Room Air Weight: 276 lb Body Mass Index (BMI) 48.9 Charges/Coding Procedures Integumentary 111xxx-113xx: [id number] Stephany musc/fascia 20 sq cm/< (left medial leg ulcer) Multi Select Codes Integumentary Integumentary CPT Codes: 36531 Stephany subq tissue 20 sq cm/< (left lateral leg ulcer) Debridement Note Debridement Note Wound debrided: medial leg ulcer and left lateral leg ulcer Laterality: Left Wound Grade/Stage: Stage IV Type of Debridement: Excisional debridement Anesthesia Used: 4% Lidocaine Solution and 5% Lidocaine Gel Depth: Down to and including healthy tissue and in the subcutaneous layer (lateral leg ulcer) Percentage of wound debrided: 100 Instrument Used: 5mm curette and 7mm curette Tissue Removed: devitalized tissue and slough Severity: Fat Layer Exposed Bleeding Controlled with: Pressure and Compression and gauze Patient tolerated procedure: Patient tolerated procedure well Debridement Free Text: Left medial leg ulcer is into the muscle, left lateral leg ulcer is in subcutaneous tissue. Post-Debridement Measurements and Additional Note: Post-Debridement Measurements/Treatment - Nurse 1 - General Ulcer Assessment Start: 02/10/23 11:07 Freq: Status: Active Protocol: BOBO Activity Type Activity Date Activity User E-sign Co-sign Detail Recorded Client Recorded Date Recorded By Document 02/10/23 11:07 [id number] 02/10/23 11:28 Document 02/12/23 14:36 [id number] 02/12/23 14:40 Document 02/17/23 11:15 [id number] 02/17/23 11:29 02/10/23 02/12/23 02/17/23 11:07 14:36 11:15 - Today's Visit Information Type of service Follow-up Visit Nurse-only Follow-up Visit (Physician/DIALYSIS TECHNICIAN Visit (Physician/DIALYSIS TECHNICIAN ) ) Arrival Mode Ambulatory Ambulatory Cane Accompanied by mom Patient Identification Verified (Name & Yes Yes Yes ) Patient Requires Transmission-Based No No No Precautions Safety Precautions NA Height and Weight Body Mass Index (BMI) 48.9 48.9 48.9 BMI Classification Obese Obese Obese Vital Signs Temperature (97.8 F-99.1 F) 97.9 F Temperature Source Temporal Pulse Rate (60-100) 96 94 Pulse Location Monitor Monitor Respiratory Rate (12-18) 16 16 Respiratory rate source Observation Observation Oxygen Delivery Method Room Air Blood Pressure (90/60-120/80) 118/84 H 106/76 Blood Pressure Mean (mm Hg) 95 86 Source Monitor Monitor Position Semi-Fowlers Semi-Fowlers Blood Pressure Location Left Forearm Left Arm History Since Last Visit- (Skip if this is Patient's initial visit) Have you changed medications since your No No last visit? Any new allergies or adverse reactions No No Had a fall/change in ADL's that may No No increase risk of falls Signs or symptoms of abuse and/or No No neglect since last visit Have you been in the hospital since your No No last visit? Has dressing in place as prescribed Yes Yes Has compression in place as prescribed Yes Yes Has offloadiing in place as prescribed No N/A Experienced any changes in pain level or No No management Left Footwear Slipper Regular Shoe Right Footwear Slipper Regular Shoe Pain Scale: 0-10 Numeric Is Patient Pain Free? No Yes Yes LLE -Description Burning -Intensity 8 -Radiation Location Knee to ankle -Pain Aggravating Factors ADL's,Standing, Walking -Alleviating Factors/Interventions None WC - Nurse 1 - General Ulcer Measurement Start: 02/10/23 11:07 Freq: Status: Active Protocol: Activity Type Activity Date Activity User E-sign Co-sign Detail Recorded Client Recorded Date Recorded By Document 02/10/23 11:07 [id number] 02/10/23 11:28 KW Document 02/12/23 14:36 [id number] 02/12/23 14:40 Document 02/17/23 11:15 [id number] 02/17/23 11:29 JF 02/10/23 02/12/23 02/17/23 11:07 14:36 11:15 Wound Center Nurse 1 #6 L lateral Le -Combined with other wound No -Current Size (cm) - Length 3.5 2.9 -Current Size (cm) - Width 1.5 1.0 -Current Size (cm) - Depth 1.5 0.7 -Total Square Cm 5.25 2.90 -Photo Taken No No -Epithelialization Medium 34-66% Small 1-33% -Tunneling No No -Undermining/Tunneling No No -Circular Undermining No No -Exudate Amt Small Small -Exudate Type Serosanguineous Serosanguineous -Wound Margin Distinct, Flat & Intact Outline Attached -Granulation Amt Medium (34-66%) Large (67-100%) Large (67-100%) -Granulation Quality Red Red Red -Slough/Fibrin No Yes -Necrosis Amt Small (1-33%) -Necrotic Tissue Type Adherent Slough -Structure Exposed N/A -Texture (Brenna-wound Skin Appearance) Assessed, Assessed Crepitus -Moisture (Brenna-wound Skin Appearance) Assessed Assessed,Dry/ Scaly -Color (Brenna-wound Skin Appearance) Assessed, Assessed Erythema -Temperature (Brenna-wound Skin No Abnormality No Abnormality Appearance) (Pt Warm) (Pt Warm) -Tenderness on Palpation (Brenna-wound No Skin Appearance) -Ulcer Cleansing Rinsed/ Wound Cleanser Irrigated with Saline -Foul Odor after Cleansing No -Anesthetic Used 5% Lidocaine 4% Lidocaine Gel Solution #5 L medial LE -Combined with other wound No No -Current Size (cm) - Length 4.2 4.0 -Current Size (cm) - Width 3.6 4.5 -Current Size (cm) - Depth 1.3 1.5 -Total Square Cm 15.12 18.00 -Photo Taken No No No -Epithelialization Medium 34-66% Small 1-33% None Present -Tunneling Yes No -Tunneling Position (O'clock) 11 -Tunneling Distance (cm) 1.5 -Undermining/Tunneling Yes -Undermining/Tunneling Starts (O'clock 9 ) -Undermining/Tunneling Ends (O'clock) 11 -Maximum Distance (cm) 3.0 -Circular Undermining No -Exudate Amt Medium Medium Medium -Exudate Type Serosanguineous Serosanguineous Serosanguineous -Wound Margin Distinct, Flat & Intact Flat & Intact Outline Attached -Granulation Amt Large (67-100%) Large (67-100%) Large (67-100%) -Granulation Quality Red Red Red -Slough/Fibrin No Yes Yes -Necrosis Amt Small (1-33%) Small (1-33%) -Necrotic Tissue Type Adherent Slough Adherent Slough -Structure Exposed N/A N/A -Texture (Brenna-wound Skin Appearance) Assessed Assessed, Assessed, Excoriation, Excoriation, Localized Edema Localized Edema -Moisture (Brenna-wound Skin Appearance) Assessed, Assessed,Dry/ Assessed,Dry/ Weeping Scaly Scaly -Color (Brenna-wound Skin Appearance) Assessed, Assessed Assessed Erythema -Temperature (Brenna-wound Skin No Abnormality No Abnormality No Abnormality Appearance) (Pt Warm) (Pt Warm) (Pt Warm) -Tenderness on Palpation (Brenna-wound No No Skin Appearance) -Ulcer Cleansing Rinsed/ Wound Cleanser Wound Cleanser Irrigated with Saline -Foul Odor after Cleansing No No -Anesthetic Used 4% Lidocaine 4% Lidocaine Solution Solution Lower Limb Edema Present Yes Left Calf (cm) 49.1 49.5 Left Ankle (cm) 27.7 28.5 WC - Nurse 2 - General Ulcer CM Notes Start: 02/10/23 11:07 Freq: Status: Active Protocol: Activity Type Activity Date Activity User E-sign Co-sign Detail Recorded Client Recorded Date Recorded By Document 02/10/23 11:37 JOSELO [id number] 02/10/23 11:43 JF Edit Result 02/10/23 11:37 JF (1) [id number] 02/11/23 06:49 PL (1) #6 L lateral Le - Bleeding Controlled with Pressure => Pressure,SURGIFOAM 02/10/23 11:37 Wound Center Nurse 2 #6 L lateral Le -Time 11:37 -Correct Patient Yes -Correct Side, Site, Position Yes -Correct Procedure Yes -Procedure Performed Yes -Type of Procedure Debridement -Clinical Debridement Subcutaneous -Tissue Removed Subcutaneous -Post Debridement (cm) - Length 3.3 -Post Debridement (cm) - Width 1.7 -Post Debridement (cm) - Depth 0.5 -Total Square (Post) (cm) 5.61 -Area of Debridement (cm) - Length 3.3 -Area of Debridement (cm) - Width 1.7 -Total Square (Area) (cm) 5.61 -Tunneling No -Undermining/Tunneling No -Circular Undermining No -Wound/Ulcer Outcome Not Healed -Ulcer Cleansing Rinsed/ Irrigated with Saline -Foul Odor after Cleansing No -Bioengineered Tissue No -Bleeding Controlled with Pressure, SURGIFOAM -Treatment Response Procedure Tolerated Well -Offloading No -Debridement - Subq, 1st 20sq cm Yes #5 L medial LE -Time 11:38 -Correct Patient Yes -Correct Side, Site, Position Yes -Correct Procedure Yes -Procedure Performed Yes -Type of Procedure Debridement -Clinical Debridement Muscle / Fascia -Tissue Removed Muscle,Fascia -Post Debridement (cm) - Length 4.4 -Post Debridement (cm) - Width 4.8 -Post Debridement (cm) - Depth 1.0 -Total Square (Post) (cm) 21.12 -Area of Debridement (cm) - Length 4.4 -Area of Debridement (cm) - Width 4.8 -Total Square (Area) (cm) 21.12 -Tunneling No -Undermining/Tunneling Yes -Undermining/Tunneling Starts (O'clock 9 ) -Undermining/Tunneling Ends (O'clock) 11 -Maximum Distance (cm) 2.8 -Circular Undermining No -Wound/Ulcer Outcome Not Healed -Ulcer Cleansing Rinsed/ Irrigated with Saline -Foul Odor after Cleansing No -Bioengineered Tissue No -Bleeding Controlled with Pressure, SURGIFOAM -Treatment Response Procedure Tolerated Well -Offloading No -Debridement - Muscle / Fascia, 1st Yes 20sq cm -Debridement, Muscle/Fascia, ea addt'l 1 20sq cm or part thereof Pain Scale: 0-10 Numeric Is Patient Pain Free? Yes - Nurse 3 - General Ulcer D/C NN Start: 02/10/23 11:07 Freq: Status: Active Protocol: Activity Type Activity Date Activity User E-sign Co-sign Detail Recorded Client Recorded Date Recorded By Document 02/10/23 12:10 [id number] 02/10/23 12:12 Document 02/12/23 14:36 [id number] 02/12/23 14:40 02/10/23 02/12/23 12:10 14:36 Wound Care Center Nurse 3 #6 L lateral Le -Ulcer Cleansing Rinsed/ Irrigated with Saline -Foul Odor after Cleansing No -Primary Dressing Applied Aquacel AG 4x4 -Primary Dressing Covered/Secured with Dry Gauze & Roll Gauze, Secured with Tape -Aquacel AG 4x4 1 #5 L medial LE -Ulcer Cleansing Rinsed/ Wound Cleanser Irrigated with Saline -Foul Odor after Cleansing No -Negative Pressure Wound Therapy Continue -Setting (mmHg) 150 -Negative Pressure is Continuous -Primary Dressing Covered/Secured with Dry Gauze & Roll Gauze, Secured with Tape -NPWT Application Charge NPWT </= 50 sq cm ($) LLE -Tubular Bandage Double Layer Double Layer -Size of Tubigrip Used Size E Size D -Size D ($) 0 -Size E ($) 2 Pain Scale: 0-10 Numeric Is Patient Pain Free? Yes Yes WC - Visit Discharge Discharge Condition Stable Stable Ambulatory Status Ambulatory Ambulatory Transportation Private Auto Private Auto Medication Reconcilliation completed & No Yes provided to patient/care provider Clinical Summary of Care Provided Yes Yes Assessment/Plan Assessment/Plan (1) Ulcer of left lower extremity with fat layer exposed: CODE(S): L97.922 - Non-pressure chronic ulcer of unspecified part of left lower leg with fat layer exposed (2) History of incision and drainage: CODE(S): Z98.890 - Other specified postprocedural states (3) History of necrotizing fasciitis: CODE(S): Z87.39 - Personal history of other diseases of the musculoskeletal system and connective tissue (4) Asthma: CODE(S): J45.909 - Unspecified asthma, uncomplicated (5) Borderline personality disorder: CODE(S): F60.3 - Borderline personality disorder (6) Factitious disorder: CODE(S): F68.10 - Factitious disorder imposed on self, unspecified (7) Major depressive disorder, recurrent severe without psychotic features: CODE(S): F33.2 - Major depressive disorder, recurrent severe without psych otic features (8) Depression: CODE(S): F32.9 - Major depressive disorder, single episode, unspecified QUALIFIERS: Depression Type: major depressive disorder Major depression recurrence: recurrent Active/Remission status: currently active Major depression episode severity: severe Psychotic features: without psychotic features Qualified Code(s): F33.2 - Major depressive disorder, recurrent severe without psychotic features (9) GERD (gastroesophageal reflux disease): CODE(S): K21.9 - Gastro-esophageal reflux disease without esophagitis QUALIFIERS: Esophagitis presence: esophagitis presence not specified Qualified Code(s): K21.9 - Gastro-esophageal reflux disease without esophagitis (10) ADHD (attention deficit hyperactivity disorder): CODE(S): F90.9 - Attention-deficit hyperactivity disorder, unspecified type QUALIFIERS: Attention deficit-hyperactivity disorder type: combined inattentive-hyperactive Qualified Code(s): F90.2 - Attention-deficit hyperactivity disorder, combined type PLAN: Plan Patient evaluated at the wound healing center today. She has a complex history with cellulitis, picking or self harm to cause wounds and being accused of tampering with her wounds. She denies actually tampering with her wounds but states that she typically cultures positive for Enterococcus, so has been accused of placing stool in her wounds. She does have a significant/complex mental health history. She has a good support system with her mother. Wound care - We will discontinue the Wound VAC on the medial leg ulcer due to the lack of improvement and the excoriated brenna wound. To the medial leg ulcer place Dakin's 0.25% moistened gauze in covered with ABD or Winston SAP dressing daily. On left lateral leg ulcer place Silver alginate (preferably Silvercel non adherent dressing) covered with ABD/gauze or Winston SAP daily. Place barrier cream such as aquaphore to the brenna wound areas. Wound Culture obtained 12/29/22 positive for Enterococcus faecalis, Corynebacterium amycolatum, and Staphylococcus epidermidis. Treated with Augmentin and continue the Doxycycline. Wound culture obtained 01/28/23 which was positive for Enterococcus faecalis and Corynebacterium striatum. She was started on Augmentin. Mom voices concern that Josiane always cultures positive for Enterococcus. She questions if she is colonized for that bacteria. She states that Josiane was accused by the surgeon when this initially occurred that she was contaminating the ulcer with stool. Mother states that Josiane never did that. I did discuss that Enterococcus is typically a gut bacteria, but that does not mean actual stool needs to be in the ulcer in order to grow this bacteria. There are other ways it can be introduced. We discussed good hand hygiene. Making sure to wash hands before and after changing the dressing. Not touching the ulcers or dressings between dressing changes. We will treat her with Augmentin which the c sandro states the bacteria is sensitive to and continue to closely monitor. Compression - Tubigrip on left leg for compression. She was seeing [facility] in [place], they performed her I&D while she was hospitalized. She states that she does not have any further appointments with them since she is now seeing us for her wound care. I have concerns that the left medial leg ulcer is not showing much improvement, especially in the tunnel area. It may need unroofed to help with the healing process. I asked if she wanted to return to [facility] to have them evaluate unroofing the ulcer. She states that she is not sure she wants to go back to them. I suggested that I could consult Dr. Alfonso, our plastic surgeon who comes to the wound center, to see if he thinks unroofing the ulcer would be beneficial. She states that she would like to be evaluated by him. Follow up with Dr. Alfonso on 03/01/23. Call or come in sooner if develop any concerns. Stressed importance of watching for worsening symptoms with fever. Instructed to go to ED if develop worsening symptoms.
--- NOTE | 2023-02-19 11:51 | WC ---
Patient called asking if she needed to obtain her refill on the antibiotic that Hilary Saleh DISCHARGING MACHINE OPERATOR ordered. Also asking if Diflucan can be called into the pharmacy. Notified Hilary and she said if there is a refill for the ATB, to have patient obtain the medicine and also was made aware to send in new prescription for Diflucan electronically to her pharmacy.
[2023-02-24 10:57] VITALS: BP 142/79; PULSE 92; RESP 20; TEMP 36.2; BMI 48.9
--- NOTE | 2023-02-24 11:42 | PCM.WC.PN ---
History of Present Illness Date of Service: 02/24/23 Chief Complaint: non-healing surgical wounds of left medial and lateral leg History of Wound: Patient is a 22 year old female who presents to the wound healing center for evaluation of nonhealing surgical wounds of left left medial and lateral leg. Patient is a poor historian. Reviewed notes from [facility], she had been admitted to [facility] around 11/27/22 for cellulitis and worsening infection of her left lower leg. She ended having an I&D of her left medial leg, left lateral leg and left lateral thigh. She was diagnosed with necrotizing fasciitis. Her wound cultures were positive for Enterococcus and steno. Mycoplasma IGG and IgM (+). She was sent to [facility] on 2 weeks dapto, arthur, clinda, levaquin, and micafungin. Changed Dap to to Vanc. On 12/12 stopped vanc/levaquin/arthur and started IV fluc due to diagnosis of candidemia. She was discharged home from [facility] around the second week of December. She has a history of significant for depression, personality disorder, self harm, anxiety, asthma, recurrent cellulitis and ADHD and most recently Afib and tachycardia. She states that she did not cause these wounds and did not do anything to them to make them worse. She has a history of being accused of tampering with wounds. Wound culture obtained on 12/29/22 which was positive for Enterococcus faecalis, Corynebacterium amycolatum, and MRSE. She was treated with Augmentin and Doxycycline. Wound culture obtained 01/28/23 which was positive for Enterococcus faecalis and Corynebacterium striatum. She was started on Augmentin. Left leg ultrasound obtained on 01/06/23 which showed There is no evidence of left lower extremity deep vein thrombosis. Today she denies fever, chills, nausea or vomiting. Progress of Wound: Left lateral ulcer is smaller. The brenna wound is clear. The left medial ulcer is stable with a tunnel at 10 o'clock into the muscle and not showing much improvement. The brenna wound on the medial leg continues to be excoriated. She states that she is experiencing crepitus in her left leg and thigh. I am unable to palpate any at this time. No erythema or warmth to leg. She is denying any fevers at this time. Objective Data Objective Data Vital Signs: Vital Signs Temp Pulse Resp BP O2 Del Method 97.2 F L 92 20 H 142/79 H Room Air 02/24/23 10:57 02/24/23 10:57 02/24/23 10:57 02/24/23 10:57 02/10/23 11:07 Oxygen Delivery Method Room Air Weight: 276 lb Body Mass Index (BMI) 48.9 Charges/Coding Procedures Integumentary 111xxx-113xx: 70412 Stephany musc/fascia 20 sq cm/< (left medial leg ulcer) Add On Codes: 25966 Stephany musc/fascia add-on Multi Select Codes Integumentary Integumentary CPT Codes: 17170 Stephany subq tissue 20 sq cm/< (left lateral leg ulcer) Debridement Note Debridement Note Wound debrided: medial leg ulcer and left lateral leg ulcer Laterality: Left Wound Grade/Stage: Stage IV Type of Debridement: Excisional debridement Anesthesia Used: 4% Lidocaine Solution and 5% Lidocaine Gel Depth: Down to and including healthy tissue, in the subcutaneous layer (lateral leg ulcer) and to muscle (Medial ulcer) Percentage of wound debrided: 100 Instrument Used: 5mm curette and 7mm curette Tissue Removed: devitalized tissue and slough Severity: Fat Layer Exposed Bleeding Controlled with: Pressure and Compression and gauze Patient tolerated procedure: Patient tolerated procedure well Debridement Free Text: Left medial leg ulcer is into the muscle, left lateral leg ulcer is in subcutaneous tissue. Post-Debridement Measurements and Additional Note: Post-Debridement Measurements/Treatment STALIN - Nurse 1 - General Ulcer Assessment Start: 02/10/23 11:07 Freq: Status: Active Protocol: BOBO Activity Type Activity Date Activity User E-sign Co-sign Detail Recorded Client Recorded Date Recorded By Document 02/10/23 11:07 KW [id number] 02/10/23 11:28 KW Document 02/12/23 14:36 JOSELO [id number] 02/12/23 14:40 JF Document 02/17/23 11:15 JF [id number] 02/17/23 11:29 JF Document 02/24/23 10:57 DL [id number] 02/24/23 11:08 DL 02/10/23 02/12/23 02/17/23 11:07 14:36 11:15 - Today's Visit Information Type of service Follow-up Visit Nurse-only Follow-up Visit (Physician/CONE BAKER MACHINE Visit (Physician/CONE BAKER MACHINE ) ) Arrival Mode Ambulatory Ambulatory Cane Transfer Assistance Accompanied by mom Patient Identification Verified (Name & Yes Yes Yes ) Patient Requires Transmission-Based No No No Precautions Safety Precautions NA Height and Weight Body Mass Index (BMI) 48.9 48.9 48.9 BMI Classification Obese Obese Obese Vital Signs Temperature (97.8 F-99.1 F) 97.9 F Temperature Source Temporal Pulse Rate (60-100) 96 94 Pulse Location Monitor Monitor Respiratory Rate (12-18) 16 16 Respiratory rate source Observation Observation Oxygen Delivery Method Room Air Blood Pressure (90/60-120/80) 118/84 H 106/76 Blood Pressure Mean (mm Hg) 95 86 Source Monitor Monitor Position Semi-Fowlers Semi-Fowlers Blood Pressure Location Left Forearm Left Arm History Since Last Visit- (Skip if this is Patient's initial visit) Have you changed medications since your No No last visit? Any new allergies or adverse reactions No No Had a fall/change in ADL's that may No No increase risk of falls Signs or symptoms of abuse and/or No No neglect since last visit Have you been in the hospital since your No No last visit? Has dressing in place as prescribed Yes Yes Has compression in place as prescribed Yes Yes Has offloadiing in place as prescribed No N/A Experienced any changes in pain level or No No management Left Footwear Slipper Regular Shoe Right Footwear Slipper Regular Shoe Pain Scale: 0-10 Numeric Is Patient Pain Free? No Yes Yes LLE -Description Burning -Intensity 8 -Radiation Location Knee to ankle -Pain Aggravating Factors ADL's,Standing, Walking -Alleviating Factors/Interventions None 02/24/23 10:57 - Today's Visit Information Type of service Follow-up Visit (Physician/CONE BAKER MACHINE ) Arrival Mode Ambulatory Transfer Assistance None Accompanied by Patient Identification Verified (Name & Yes ) Patient Requires Transmission-Based No Precautions Safety Precautions Height and Weight Body Mass Index (BMI) 48.9 BMI Classification Obese Vital Signs Temperature (97.8 F-99.1 F) 97.2 F L Temperature Source Temporal Pulse Rate (60-100) 92 Pulse Location Monitor Respiratory Rate (12-18) 20 H Respiratory rate source Observation Oxygen Delivery Method Blood Pressure (90/60-120/80) 142/79 H Blood Pressure Mean (mm Hg) 100 Source Monitor Position Blood Pressure Location History Since Last Visit- (Skip if this is Patient's initial visit) Have you changed medications since your No last visit? Any new allergies or adverse reactions No Had a fall/change in ADL's that may No increase risk of falls Signs or symptoms of abuse and/or No neglect since last visit Have you been in the hospital since your No last visit? Has dressing in place as prescribed Yes Has compression in place as prescribed Yes Has offloadiing in place as prescribed N/A Experienced any changes in pain level or No management Left Footwear Right Footwear Pain Scale: 0-10 Numeric Is Patient Pain Free? Yes LLE -Description -Intensity -Radiation Location -Pain Aggravating Factors -Alleviating Factors/Interventions WC - Nurse 1 - General Ulcer Measurement Start: 02/10/23 11:07 Freq: Status: Active Protocol: Activity Type Activity Date Activity User E-sign Co-sign Detail Recorded Client Recorded Date Recorded By Document 02/10/23 11:07 [id number] 02/10/23 11:28 Document 02/12/23 14:36 [id number] 02/12/23 14:40 Document 02/17/23 11:15 [id number] 02/17/23 11:29 Document 02/24/23 10:57 DL [id number] 02/24/23 11:08 DL 02/10/23 02/12/23 02/17/23 11:07 14:36 11:15 Wound Center Nurse 1 #6 L lateral Le -Combined with other wound No -Current Size (cm) - Length 3.5 2.9 -Current Size (cm) - Width 1.5 1.0 -Current Size (cm) - Depth 1.5 0.7 -Total Square Cm 5.25 2.90 -Photo Taken No No -Epithelialization Medium 34-66% Small 1-33% -Tunneling No No -Undermining/Tunneling No No -Circular Undermining No No -Exudate Amt Small Small -Exudate Type Serosanguineous Serosanguineous -Wound Margin Distinct, Flat & Intact Outline Attached -Granulation Amt Medium (34-66%) Large (67-100%) Large (67-100%) -Granulation Quality Red Red Red -Slough/Fibrin No Yes -Necrosis Amt Small (1-33%) -Necrotic Tissue Type Adherent Slough -Structure Exposed N/A -Texture (Brenna-wound Skin Appearance) Assessed, Assessed Crepitus -Moisture (Brenna-wound Skin Appearance) Assessed Assessed,Dry/ Scaly -Color (Brenna-wound Skin Appearance) Assessed, Assessed Erythema -Temperature (Brenna-wound Skin No Abnormality No Abnormality Appearance) (Pt Warm) (Pt Warm) -Tenderness on Palpation (Brenna-wound No Skin Appearance) -Ulcer Cleansing Rinsed/ Wound Cleanser Irrigated with Saline -Foul Odor after Cleansing No -Anesthetic Used 5% Lidocaine 4% Lidocaine Gel Solution #5 L medial LE -Combined with other wound No No -Current Size (cm) - Length 4.2 4.0 -Current Size (cm) - Width 3.6 4.5 -Current Size (cm) - Depth 1.3 1.5 -Total Square Cm 15.12 18.00 -Photo Taken No No No -Epithelialization Medium 34-66% Small 1-33% None Present -Tunneling Yes No -Tunneling Position (O'clock) 11 -Tunneling Distance (cm) 1.5 -Undermining/Tunneling Yes -Undermining/Tunneling Starts (O'clock 9 ) -Undermining/Tunneling Ends (O'clock) 11 -Maximum Distance (cm) 3.0 -Circular Undermining No -Exudate Amt Medium Medium Medium -Exudate Type Serosanguineous Serosanguineous Serosanguineous -Wound Margin Distinct, Flat & Intact Flat & Intact Outline Attached -Granulation Amt Large (67-100%) Large (67-100%) Large (67-100%) -Granulation Quality Red Red Red -Slough/Fibrin No Yes Yes -Necrosis Amt Small (1-33%) Small (1-33%) -Necrotic Tissue Type Adherent Slough Adherent Slough -Structure Exposed N/A N/A -Texture (Brenna-wound Skin Appearance) Assessed Assessed, Assessed, Excoriation, Excoriation, Localized Edema Localized Edema -Moisture (Brenna-wound Skin Appearance) Assessed, Assessed,Dry/ Assessed,Dry/ Weeping Scaly Scaly -Color (Brenna-wound Skin Appearance) Assessed, Assessed Assessed Erythema -Temperature (Brenna-wound Skin No Abnormality No Abnormality No Abnormality Appearance) (Pt Warm) (Pt Warm) (Pt Warm) -Tenderness on Palpation (Brenna-wound No No Skin Appearance) -Ulcer Cleansing Rinsed/ Wound Cleanser Wound Cleanser Irrigated with Saline -Foul Odor after Cleansing No No -Anesthetic Used 4% Lidocaine 4% Lidocaine Solution Solution Lower Limb Edema Present Yes Left Calf (cm) 49.1 49.5 Left Ankle (cm) 27.7 28.5 02/24/23 10:57 Wound Center Nurse 1 #6 L lateral Le -Combined with other wound -Current Size (cm) - Length 2.6 -Current Size (cm) - Width 1 -Current Size (cm) - Depth 0.5 -Total Square Cm 2.6 -Photo Taken -Epithelialization -Tunneling -Undermining/Tunneling -Circular Undermining -Exudate Amt Small -Exudate Type Serosanguineous -Wound Margin Distinct, Outline Attached -Granulation Amt Medium (34-66%) -Granulation Quality Red -Slough/Fibrin -Necrosis Amt Small (1-33%) -Necrotic Tissue Type Adherent Slough -Structure Exposed N/A -Texture (Brenna-wound Skin Appearance) Scarring -Moisture (Brenna-wound Skin Appearance) No Abnormality -Color (Brenna-wound Skin Appearance) No Abnormality -Temperature (Brenna-wound Skin No Abnormality Appearance) (Pt Warm) -Tenderness on Palpation (Brenna-wound No Skin Appearance) -Ulcer Cleansing Soap and Water -Foul Odor after Cleansing No -Anesthetic Used 5% Lidocaine Gel #5 L medial LE -Combined with other wound -Current Size (cm) - Length 5.6 -Current Size (cm) - Width 3.4 -Current Size (cm) - Depth 1.5 -Total Square Cm 19.04 -Photo Taken -Epithelialization -Tunneling -Tunneling Position (O'clock) -Tunneling Distance (cm) -Undermining/Tunneling -Undermining/Tunneling Starts (O'clock 7 ) -Undermining/Tunneling Ends (O'clock) 10 -Maximum Distance (cm) 2.1 -Circular Undermining -Exudate Amt Medium -Exudate Type Yellow/Green -Wound Margin Distinct, Outline Attached -Granulation Amt Medium (34-66%) -Granulation Quality Red -Slough/Fibrin -Necrosis Amt Medium (34-66%) -Necrotic Tissue Type Adherent Slough -Structure Exposed N/A -Texture (Brenna-wound Skin Appearance) Scarring,Rash -Moisture (Brenna-wound Skin Appearance) No Abnormality -Color (Brenna-wound Skin Appearance) No Abnormality -Temperature (Brenna-wound Skin No Abnormality Appearance) (Pt Warm) -Tenderness on Palpation (Brenna-wound No Skin Appearance) -Ulcer Cleansing Soap and Water -Foul Odor after Cleansing -Anesthetic Used 5% Lidocaine Gel Lower Limb Edema Present Left Calf (cm) 48 Left Ankle (cm) 26.5 WC - Nurse 2 - General Ulcer CM Notes Start: 02/10/23 11:07 Freq: Status: Active Protocol: Activity Type Activity Date Activity User E-sign Co-sign Detail Recorded Client Recorded Date Recorded By Document 02/10/23 11:37 [id number] 02/10/23 11:43 JF Edit Result 02/10/23 11:37 JF (1) [id number] 02/11/23 06:49 PL Document 02/17/23 11:30 JF [id number] 02/17/23 12:09 JF Document 02/24/23 11:19 JF [id number] 02/24/23 11:24 JF (1) #6 L lateral Le - Bleeding Controlled with Pressure => Pressure,SURGIFOAM 02/10/23 02/17/23 02/24/23 11:37 11:30 11:19 Wound Center Nurse 2 #6 L lateral Le -Time 11:37 11:30 11:20 -Correct Patient Yes Yes Yes -Correct Side, Site, Position Yes Yes Yes -Correct Procedure Yes Yes Yes -Procedure Performed Yes Yes Yes -Type of Procedure Debridement Debridement Debridement -Clinical Debridement Subcutaneous Subcutaneous Subcutaneous -Tissue Removed Subcutaneous Subcutaneous Subcutaneous -Post Debridement (cm) - Length 3.3 3.0 2.8 -Post Debridement (cm) - Width 1.7 1.5 1.3 -Post Debridement (cm) - Depth 0.5 0.4 0.4 -Total Square (Post) (cm) 5.61 4.50 3.64 -Area of Debridement (cm) - Length 3.3 3.0 2.8 -Area of Debridement (cm) - Width 1.7 1.5 1.3 -Total Square (Area) (cm) 5.61 4.50 3.64 -Tunneling No No No -Undermining/Tunneling No No No -Circular Undermining No No No -Wound/Ulcer Outcome Not Healed Not Healed Not Healed -Ulcer Cleansing Rinsed/ Rinsed/ Rinsed/ Irrigated with Irrigated with Irrigated with Saline Saline Saline -Foul Odor after Cleansing No No No -Bioengineered Tissue No No No -Bleeding Controlled with Pressure, Pressure Pressure SURGIFOAM -Treatment Response Procedure Procedure Procedure Tolerated Well Tolerated Well Tolerated Well -Offloading No No No -Debridement - Subq, 1st 20sq cm Yes Yes Yes #5 L medial LE -Time 11:38 11:30 11:21 -Correct Patient Yes Yes Yes -Correct Side, Site, Position Yes Yes Yes -Correct Procedure Yes Yes Yes -Procedure Performed Yes Yes Yes -Type of Procedure Debridement Debridement Debridement -Clinical Debridement Muscle / Fascia Muscle / Fascia Muscle / Fascia -Tissue Removed Muscle,Fascia Muscle,Fascia Muscle,Fascia -Post Debridement (cm) - Length 4.4 4.0 5.0 -Post Debridement (cm) - Width 4.8 4.5 5.0 -Post Debridement (cm) - Depth 1.0 1.1 1.2 -Total Square (Post) (cm) 21.12 18.00 25.00 -Area of Debridement (cm) - Length 4.4 4.0 5.0 -Area of Debridement (cm) - Width 4.8 4.5 5.0 -Total Square (Area) (cm) 21.12 18.00 25.00 -Tunneling No No No -Undermining/Tunneling Yes Yes Yes -Undermining/Tunneling Starts (O'clock 9 9 9 ) -Undermining/Tunneling Ends (O'clock) 11 11 11 -Maximum Distance (cm) 2.8 3.3 4.2 -Circular Undermining No No No -Wound/Ulcer Outcome Not Healed Not Healed Not Healed -Ulcer Cleansing Rinsed/ Rinsed/ Rinsed/ Irrigated with Irrigated with Irrigated with Saline Saline Saline -Foul Odor after Cleansing No No No -Bioengineered Tissue No No No -Bleeding Controlled with Pressure, Pressure Pressure SURGIFOAM -Treatment Response Procedure Procedure Procedure Tolerated Well Tolerated Well Tolerated Well -Offloading No No No -Debridement - Muscle / Fascia, 1st Yes Yes Yes 20sq cm -Debridement, Muscle/Fascia, ea addt'l 1 1 20sq cm or part thereof Pain Scale: 0-10 Numeric Is Patient Pain Free? Yes Yes Yes - Nurse 3 - General Ulcer D/C NN Start: 02/10/23 11:07 Freq: Status: Active Protocol: Activity Type Activity Date Activity User E-sign Co-sign Detail Recorded Client Recorded Date Recorded By Document 02/10/23 12:10 [id number] 02/10/23 12:12 Document 02/12/23 14:36 JF [id number] 02/12/23 14:40 Document 02/24/23 11:36 DL [id number] 02/24/23 11:38 DL 02/10/23 02/12/23 02/24/23 12:10 14:36 11:36 Wound Care Center Nurse 3 #6 L lateral Le -Ulcer Cleansing Rinsed/ Soap and Water Irrigated with Saline -Foul Odor after Cleansing No No -Primary Dressing Applied Aquacel AG 4x4 Aquacel AG 4x4, Mepilex Border -Primary Dressing Covered/Secured with Dry Gauze & Roll Gauze, Secured with Tape -Aquacel AG 4x4 1 1 -Mepilex Border 1 #5 L medial LE -Ulcer Cleansing Rinsed/ Wound Cleanser Soap and Water Irrigated with Saline -Foul Odor after Cleansing No No -Negative Pressure Wound Therapy Continue -Setting (mmHg) 150 -Negative Pressure is Continuous -Primary Dressing Applied Mepilex Border -Other Dressing Aqaucel ag -Primary Dressing Covered/Secured with Dry Gauze & Roll Gauze, Secured with Tape -NPWT Application Charge NPWT </= 50 sq cm ($) -Mepilex Border 1 LLE -Compression Wrap Jonas Wrap -Tubular Bandage Double Layer Double Layer Single Layer -Size of Tubigrip Used Size E Size D Size E -Size D ($) 0 -Size E ($) 2 1 Treatment Response Procedure Tolerated Well Pain Scale: 0-10 Numeric Is Patient Pain Free? Yes Yes Yes - Visit Discharge Discharge Condition Stable Stable Stable Ambulatory Status Ambulatory Ambulatory Ambulatory Transportation Private Auto Private Auto Private Auto Medication Reconcilliation completed & No Yes provided to patient/care provider Clinical Summary of Care Provided Yes Yes Assessment/Plan Assessment/Plan (1) Ulcer of left lower extremity with fat layer exposed: CODE(S): L97.922 - Non-pressure chronic ulcer of unspecified part of left lower leg with fat layer exposed (2) History of incision and drainage: CODE(S): Z98.890 - Other specified postprocedural states (3) History of necrotizing fasciitis: CODE(S): Z87.39 - Personal history of other diseases of the musculoskeletal system and connective tissue (4) Asthma: CODE(S): J45.909 - Unspecified asthma, uncomplicated (5) Borderline personality disorder: CODE(S): F60.3 - Borderline personality disorder (6) Factitious disorder: CODE(S): F68.10 - Factitious disorder imposed on self, unspecified (7) Major depressive disorder, recurrent severe without psychotic features: CODE(S): F33.2 - Major depressive disorder, recurrent severe without psychotic features (8) Depression: CODE(S): F32.9 - Major depressive disorder, single episode, unspecified QUALIFIERS: Depression Type: major depressive disorder Major depression recurrence: recurrent Active/Remission status: currently active Major depression episode severity: severe Psychotic features: without psychotic features Qualified Code(s): F33.2 - Major depressive disorder, recurrent severe without psychotic features (9) GERD (gastroesophageal reflux disease): CODE(S): K21.9 - Gastro-esophageal reflux disease without esophagitis QUALIFIERS: Esophagitis presence: esophagitis presence not specified Qualified Code(s): K21.9 - Gastro-esophageal reflux disease without esophagitis (10) ADHD (attention deficit hyperactivity disorder): CODE(S): F90.9 - Attention-deficit hyperactivity disorder, unspecified type QUALIFIERS: Attention deficit-hyperactivity disorder type: combined inattentive-hyperactive Qualified Code(s): F90.2 - Attention-deficit hyperactivity disorder, combined type PLAN: Plan Patient evaluated at the wound healing center today. She has a complex history with cellulitis, picking or self harm to cause wounds and being accused of tampering with her wounds. She denies actually tampering with her wounds but states that she typically cultures positive for Enterococcus, so has been accused of placing stool in her wounds. She does have a significant/complex mental health history. She has a good support system with her mother. Wound care - Place Aquacel-Ag to both the medial and lateral left leg ulcer and cover with ABD or [place] SAP dressing daily. Instructed her to make sure to pack the silver into the tunnel of the medial leg. Wound Culture obtained 12/29/22 positive for Enterococcus faecalis, Corynebacterium amycolatum, and Staphylococcus epidermidis. Treated with Augmentin and continue the Doxycycline. Wound culture obtained 01/28/23 which was positive for Enterococcus faecalis and Corynebacterium striatum. She was started on Augmentin. Her mother voiced concern at a previous appointment that Josiane always cultures positive for Enterococcus. She questions if she is colonized for that bacteria. She states that Josiane was accused by the surgeon when this initially occurred that she was contaminating the ulcer with stool. Mother states that Josiane never did that. I did discuss that Enterococcus is typically a gut bacteria, but that does not mean actual stool needs to be in the ulcer in order to grow this bacteria. There are other ways it can be introduced. We discussed good hand hygiene. Making sure to wash hands before and after changing the dressing. Not touching the ulcers or dressings between dressing changes. We will treat her with Augmentin which the culture states the bacteria is sensitive to and continue to closely monitor. Compression - Single tubigrip with JONAS wrap on left leg for compression. She was seeing [facility] in [place], they performed her I&D while she was hospitalized. She states that she does not have any further appointments with them since she is now seeing us for her wound care. I have concerns that the left medial leg ulcer is not showing much improvement, especially in the tunnel area. It may need unroofed to help with the healing process. I asked if she wanted to return to [facility] to have them evaluate unroofing the ulcer. She states that she is not sure she wants to go back to them. I suggested that I could consult Dr. Alfonso, our plastic surgeon who comes to the wound center, to see if he thinks unroofing the ulcer would be beneficial. She states that she would like to be evaluated by him. She states that she has been feeling crepitus in her left leg and thigh. I am not palpating any at this time. Instructed her to call PCP, Ortho or go to ED if develop further issues. Follow up with Dr. Alfonso on Wednesday03/01/23.
== END 2023-03-08 23:59 | disposition home or self-care (01) ==
LOC: WC 11:00
PROVIDERS: PCP Student in an Organized Health Care Education/Training Program; Referring Provider Student in an Organized Health Care Education/Training Program; Visit Provider Nurse Practitioner Family
DX: L97.822 Non-pressure chronic ulcer of other part of left lower leg with fat layer exposed (principal); J45.909 Unspecified asthma, uncomplicated; K21.9 Gastro-esophageal reflux disease without esophagitis
CPT/HCPCS: 11042; 11043; 11045; 11046; 97605

== ENCOUNTER 2023-04-05 10:45 | Outpatient (RCR) | payer MEDICAID, SELFPAY ==
[2023-03-09 00:11] VITALS: BP 142/79; PULSE 92; RESP 20; TEMP 36.2; BMI 48.9
[2023-03-10 10:36] VITALS: BP 110/75; PULSE 104; RESP 20; TEMP 36.5; BMI 48.9
--- NOTE | 2023-03-10 11:36 | PN.PCM_ITS ---
History of Present Illness Date of Service: 03/10/23 Chief Complaint: non-healing surgical wounds of left medial and lateral leg History of Wound: Patient is a 22 year old female who presents to the wound healing center for evaluation of nonhealing surgical wounds of left left medial and lateral leg. Patient is a poor historian. Reviewed notes from [facility], she had been admitted to [facility] around 11/27/22 for cellulitis and worsening infection of her left lower leg. She ended having an I&D of her left medial leg, left lateral leg and left lateral thigh. She was diagnosed with necrotizing fasciitis. Her wound cultures were positive for Enterococcus and steno. Mycoplasma IGG and IgM (+). She was sent to [facility] on 2 weeks dapto, arthur, clinda, levaquin, and micafungin. Changed Dap to to Vanc. On 12/12 stopped vanc/levaquin/arthur and started IV fluc due to diagnosis of candidemia. She was discharged home from [facility] around the second week of December. She has a history of significant for depression, personality disorder, self harm, anxiety, asthma, recurrent cellulitis and ADHD and most recently Afib and tachycardia. She states that she did not cause these wounds and did not do anything to them to make them worse. She has a history of being accused of tampering with wounds. Wound culture obtained on 12/29/22 which was positive for Enterococcus faecalis, Corynebacterium amycolatum, and MRSE. She was treated with Augmentin and Doxycycline. Wound culture obtained 01/28/23 which was positive for Enterococcus faecalis and Corynebacterium striatum. She was started on Augmentin. Left leg ultrasound obtained on 01/06/23 which showed There is no evidence of left lower extremity deep vein thrombosis. She was in [facility] for a week at the end of February for subcutaneous air around her wound. She states she cultured positive for MRSA and they had her on IV antibiotics. They used a wound VAC while she was in the hospital. She is now on Doxycycline. Today she denies fever, chills, nausea or vomiting. Progress of Wound: Left lateral ulcer is smaller. The brenna wound is clear. The left medial ulcer is smaller and the tunnel from 9-11 o'clock into the muscle and is not as deep. The brenna wound on the medial leg is much improved today and is not excoriated. She states she has a firm painful area proximal to to the left medial leg wound that is palpable. It is tender to palpation and is measures approximately 2.5 x 2.5 cm. There is no erythema or warmth to this area. There is no area that looks like it is coming to a head. Will continue to closely monitor. Objective Data Objective Data Vital Signs: Vital Signs Temp Pulse Resp BP 97.7 F L 104 H 20 H 110/75 03/10/23 10:36 03/10/23 10:36 03/10/23 10:36 03/10/23 10:36 Weight: 276 lb Body Mass Index (BMI) 48.9 Charges/Coding Procedures Integumentary 111xxx-113xx: 27852 Stephany musc/fascia 20 sq cm/< (left medial leg ulcer) Add On Codes: 78395 Stephany musc/fascia add-on Multi Select Codes Integumentary Integumentary CPT Codes: 58203 Stephany subq tissue 20 sq cm/< (left lateral leg ulcer) Debridement Note Debridement Note Wound debrided: medial leg ulcer Laterality: Left Wound Grade/Stage: Stage IV Type of Debridement: Excisional debridement Anesthesia Used: 4% Lidocaine Solution and 5% Lidocaine Gel Depth: Down to and including healthy tissue, in the subcutaneous layer (lateral leg ulcer) and to muscle (Medial ulcer) Percentage of wound debrided: 100 Instrument Used: 7mm curette Tissue Removed: devitalized tissue and slough into the muscle Severity: Fat Layer Exposed Bleeding Controlled with: Pressure and Compression and gauze Patient tolerated procedure: Patient tolerated procedure well Debridement Free Text: Left medial leg ulcer is into the muscle with a tunnel present Post-Debridement Measurements and Additional Note: Post-Debridement Measurements/Treatment - Nurse 1 - General Ulcer Assessment Start: 03/10/23 10:35 Freq: Status: Active Protocol: [email or web address] Activity Type Activity Date Activity User E-sign Co-sign Detail Recorded Client Recorded Date Recorded By Document 03/10/23 10:36 DL [id number] 03/10/23 10:47 DL 03/10/23 10:36 - Today's Visit Information Type of service Follow-up Visit (Physician/DATA ENTRY OPERATOR ) Arrival Mode Ambulatory Transfer Assistance None Patient Identification Verified (Name & Yes ) Patient Requires Transmission-Based No Precautions Height and Weight Body Mass Index (BMI) 48.9 BMI Classification Obese Vital Signs Temperature (97.8 F-99.1 F) 97.7 F L Temperature Source Temporal Pulse Rate (60-100) 104 H Pulse Location Monitor Respiratory Rate (12-18) 20 H Respiratory rate source Observation Blood Pressure (90/60-120/80) 110/75 Blood Pressure Mean (mm Hg) 86 Source Monitor History Since Last Visit- (Skip if this is Patient's initial visit) Have you changed medications since your No last visit? Any new allergies or adverse reactions No Had a fall/change in ADL's that may No increase risk of falls Signs or symptoms of abuse and/or No neglect since last visit Have you been in the hospital since your No last visit? Has dressing in place as prescribed Yes Has compression in place as prescribed Yes Has offloadiing in place as prescribed N/A Experienced any changes in pain level or No management Pain Scale: 0-10 Numeric Is Patient Pain Free? Yes WC - Nurse 1 - General Ulcer Measurement Start: 03/10/23 10:35 Freq: Status: Active Protocol: Activity Type Activity Date Activity User E-sign Co-sign Detail Recorded Client Recorded Date Recorded By Document 03/10/23 10:36 DL [id number] 03/10/23 10:47 DL 03/10/23 10:36 Wound Center Nurse 1 #6 L lateral Le -Current Size (cm) - Length 1.4 -Current Size (cm) - Width 0.6 -Current Size (cm) - Depth 0.3 -Total Square Cm 0.84 -Photo Taken Yes -Exudate Amt Small -Exudate Type Serosanguineous -Wound Margin Distinct, Outline Attached -Granulation Amt Large (67-100%) -Granulation Quality Red -Necrosis Amt Small (1-33%) -Necrotic Tissue Type Adherent Slough -Structure Exposed N/A -Texture (Brenna-wound Skin Appearance) Scarring -Moisture (Brenna-wound Skin Appearance) No Abnormality -Color (Brenna-wound Skin Appearance) No Abnormality -Temperature (Brenna-wound Skin No Abnormality Appearance) (Pt Warm) -Ulcer Cleansing Soap and Water -Foul Odor after Cleansing No -Anesthetic Used 5% Lidocaine Gel #5 L medial LE -Current Size (cm) - Length 4 -Current Size (cm) - Width 5.4 -Current Size (cm) - Depth 1.4 -Total Square Cm 21.6 -Photo Taken Yes -Undermining/Tunneling Starts (O'clock 9 ) -Undermining/Tunneling Ends (O'clock) 11 -Maximum Distance (cm) 3 -Exudate Amt Medium -Exudate Type Serosanguineous -Wound Margin Thickened & Rolled Under -Granulation Amt Medium (34-66%) -Granulation Quality Hav[place],Red -Necrosis Amt Medium (34-66%) -Necrotic Tissue Type Adherent Slough -Structure Exposed N/A -Texture (Brenna-wound Skin Appearance) Scarring -Moisture (Brenna-wound Skin Appearance) No Abnormality -Color (Brenna-wound Skin Appearance) No Abnormality -Temperature (Brenna-wound Skin No Abnormality Appearance) (Pt Warm) -Ulcer Cleansing Soap and Water -Anesthetic Used 4% Lidocaine Solution,5% Lidocaine Gel Left Calf (cm) 46 Left Ankle (cm) 26.7 - Nurse 3 - General Ulcer D/C NN Start: 03/10/23 10:35 Freq: Status: Active Protocol: Activity Type Activity Date Activity User E-sign Co-sign Detail Recorded Client Recorded Date Recorded By Document 03/10/23 11:16 [facility] [id number] 03/10/23 11:17 [facility] 03/10/23 11:16 Wound Care Center Nurse 3 #6 L lateral Le -Ulcer Cleansing Rinsed/ Irrigated with Saline -Foul Odor after Cleansing No -Primary Dressing Applied Aquacel AG 4x4, Mepilex Border -Aquacel AG 4x4 1 -Mepilex Border 0 #5 L medial LE -Ulcer Cleansing Rinsed/ Irrigated with Saline -Foul Odor after Cleansing No -Primary Dressing Applied Aquacel AG 4x4, Mepilex Border -Aquacel AG 4x4 0 -Mepilex Border 1 Left -Compression Wrap Jonas Wrap -Tubular Bandage Single Layer -Size of Tubigrip Used Size E -Size E ($) 1 Treatment Response Procedure Tolerated Well Pain Scale: 0-10 Numeric Is Patient Pain Free? Yes WC - Visit Discharge Discharge Condition Stable Ambulatory Status Ambulatory Transportation Private Auto Accompanied by mom Additional Wound Wound debrided: Lateral leg Laterality: Left Type of Debridement: Excisional debridement Anesthesia Used: 5% Lidocaine Gel Depth: Down to and including healthy tissue and in the subcutaneous layer Percentage of wound debrided: 100 Instrument Used: 5mm curette Tissue Removed: Devitalized tissue and slough Severity: Fat Layer Exposed Amount of bleeding with debridement: Mild Bleeding Controlled with: Pressure and Compression and gauze Patient tolerated procedure: Patient tolerated procedure well Assessment/Plan Assessment/Plan (1) Ulcer of left lower extremity with fat layer exposed: CODE(S): L97.922 - Non-pressure chronic ulcer of unspecified part of left lower leg with fat layer exposed (2) History of incision and drainage: CODE(S): Z98.890 - Other specified postprocedural states (3) History of necrotizing fasciitis: CODE(S): Z87.39 - Personal history of other diseases of the musculoskeletal system and connective tissue (4) Asthma: CODE(S): J45.909 - Unspecified asthma, uncomplicated (5) Borderline personality disorder: CODE(S): F60.3 - Borderline personality disorder (6) Major depressive disorder, recurrent severe without psychotic features: CODE(S): F33.2 - Major depressive disorder, recurrent severe without psychotic features (7) Depression: CODE(S): F32.9 - Major depressive disorder, single episode, unspecified QUALIFIERS: Depression Type: major depressive disorder Major depression recurrence: recurrent Active/Remission status: currently active Major depression episode severity: severe Psychotic features: without psychotic features Qualified Code(s): F33.2 - Major depressive disorder, recurrent severe without psychotic features PLAN: Plan Patient evaluated at the wound healing center today. She has a complex history with cellulitis, picking or self harm to cause wounds and being accused of tampering with her wounds. She denies actually tampering with her wounds but states that she typically cultures positive for Enterococcus, so has been accused of placing stool in her wounds. She does have a significant/complex mental health history. She has a good support system with her mother. Wound care - Place Aquacel-Ag to both the medial and lateral left leg ulcer and cover with ABD or Marion SAP dressing daily. Instructed her to make sure to pack the silver into the tunnel of the medial leg. Wound Culture obtained 12/29/22 positive for Enterococcus faecalis, Corynebacterium amycolatum, and Staphylococcus epidermidis. Treated with Augmentin and continue the Doxycycline. Wound culture obtained 01/28/23 which was positive for Enterococcus faecalis and Corynebacterium striatum. She was started on Augmentin. Compression - Single tubigrip with JONAS wrap on left leg for compression. She was seeing [facility] in [place], they performed her I&D while she was hospitalized. She states that she does not have any further appointments with them since she is now seeing us for her wound care. She has an area of firmness and tenderness proximal to the left medial leg ulcer, she can apply warm compresses for 10-15 minutes at a time several times a day to see if this will help bring it to a head. If she develops any fever, chills, worsening pain or red streak going up her leg, she needs further evaluation from PCP or go to the ED. She was recently admitted to [facility], will attempt to obtain the records of her CT scan and physician notes. She is currently on Doxycycline for a positive wound culture for MRSA. Follow up with Dr. Alfonso on Wednesday02/12/23.
[2023-03-15 14:02] VITALS: BP 121/78; PULSE 97; RESP 18; TEMP 36.2; BMI 48.9
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
[2023-03-24 11:20] VITALS: BP 106/67; PULSE 96; RESP 18; TEMP 36.4; BMI 48.9
--- NOTE | 2023-03-24 14:34 | PCM.WC.PN ---
History of Present Illness Date of Service: 03/24/23 Chief Complaint: non-healing surgical wounds of left medial and lateral leg History of Wound: Patient is a 22 year old female who presents to the wound healing center for evaluation of nonhealing surgical wounds of left left medial and lateral leg. Patient is a poor historian. Reviewed notes from [facility], she had been admitted to [facility] around 11/27/22 for cellulitis and worsening infection of her left lower leg. She ended having an I&D of her left medial leg, left lateral leg and left lateral thigh. She was diagnosed with necrotizing fasciitis. Her wound cultures were positive for Enterococcus and steno. Mycoplasma IGG and IgM (+). She was sent to [facility] on 2 weeks dapto, arthur, clinda, levaquin, and micafungin. Changed Dap to to Vanc. On 12/12 stopped vanc/levaquin/arthur and started IV fluc due to diagnosis of candidemia. She was discharged home from [facility] around the second week of December. She has a history of significant for depression, personality disorder, self harm, anxiety, asthma, recurrent cellulitis and ADHD and most recently Afib and tachycardia. She states that she did not cause these wounds and did not do anything to them to make them worse. She has a history of being accused of tampering with wounds. Wound culture obtained on 12/29/22 which was positive for Enterococcus faecalis, Corynebacterium amycolatum, and MRSE. She was treated with Augmentin and Doxycycline. Wound culture obtained 01/28/23 which was positive for Enterococcus faecalis and Corynebacterium striatum. She was started on Augmentin. Left leg ultrasound obtained on 01/06/23 which showed There is no evidence of left lower extremity deep vein thrombosis. She was in [facility] for a week at the end of February for subcutaneous air around her wound. She states she cultured positive for MRSA and they had her on IV antibiotics. They used a wound VAC while she was in the hospital. She is now on Doxycycline. Today she denies fever, chills, nausea or vomiting. I was asked to evaluate this patient for surgical options for treatment. Progress of Wound: Left lateral leg ulcer is smaller with granulation tissue present. The left medial leg ulcer is smaller with granulation tissue present. Superior tunneling is slightly less. Objective Data Objective Data Vital Signs: Vital Signs Temp Pulse Resp BP O2 Del Method 97.5 F L 96 18 106/67 Room Air 03/24/23 11:20 03/24/23 11:20 03/24/23 11:20 03/24/23 11:20 03/15/23 14:02 Oxygen Delivery Method Room Air Weight: 276 lb Body Mass Index (BMI) 48.9 Charges/Coding Procedures Integumentary 111xxx-113xx: 52249 Stephany musc/fascia 20 sq cm/< (Left medial leg ulcer) Multi Select Codes Integumentary Integumentary CPT Codes: 30657 Stephany subq tissue 20 sq cm/< (left lateral leg ulcer) Debridement Note Debridement Note Wound debrided: #5 left medial leg Laterality: Left Wound Grade/Stage: 3 Type of Debridement: Excisional debridement Anesthesia Used: 5% Lidocaine Gel Depth: Down to and including healthy tissue, in the subcutaneous layer and to muscle Percentage of wound debrided: 100 Instrument Used: 7mm curette Tissue Removed: subcutaneous tissue and muscle. Severity: Fat Layer Exposed (muscle is exposed.) Amount of bleeding with debridement: Mild Bleeding Controlled with: Pressure and Compression and gauze Patient tolerated procedure: Patient tolerated procedure well Debridement Free Text: Superior tunneling present. Post-Debridement Measurements and Additional Note: Post-Debridement Measurements/Treatment - Nurse 1 - General Ulcer Assessment Start: 03/10/23 10:35 Freq: Status: Active Protocol: STALIN.YOUNG Activity Type Activity Date Activity User E-sign Co-sign Detail Recorded Client Recorded Date Recorded By Document 03/10/23 10:36 DL [id number] 03/10/23 10:47 DL Document 03/15/23 14:02 KW [id number] 03/15/23 14:19 KW Document 03/24/23 11:20 DL [id number] 03/24/23 11:31 DL 03/10/23 03/15/23 03/24/23 10:36 14:02 11:20 - Today's Visit Information Type of service Follow-up Visit Follow-up Visit Follow-up Visit (Physician/GALLERY OR MUSEUM GUIDE (Physician/GALLERY OR MUSEUM GUIDE (Physician/GALLERY OR MUSEUM GUIDE ) ) ) Arrival Mode Ambulatory Ambulatory Ambulatory Transfer Assistance None None Accompanied by mother Patient Identification Verified (Name & Yes Yes Yes ) Patient Requires Transmission-Based No No Precautions Height and Weight Body Mass Index (BMI) 48.9 48.9 48.9 BMI Classification Obese Obese Obese Vital Signs Temperature (97.8 F-99.1 F) 97.7 F L 97.1 F L 97.5 F L Temperature Source Temporal Temporal Temporal Pulse Rate (60-100) 104 H 97 96 Pulse Location Monitor Monitor Monitor Respiratory Rate (12-18) 20 H 18 18 Respiratory rate source Observation Ausculation Observation Oxygen Delivery Method Room Air Blood Pressure (90/60-120/80) 110/75 121/78 H 106/67 Blood Pressure Mean (mm Hg) 86 92 80 Source Monitor Monitor Monitor Position Sitting Blood Pressure Location Left Arm History Since Last Visit- (Skip if this is Patient's initial visit) Have you changed medications since your No No No last visit? Any new allergies or adverse reactions No No No Had a fall/change in ADL's that may No No No increase risk of falls Signs or symptoms of abuse and/or No No No neglect since last visit Have you been in the hospital since your No No No last visit? Has dressing in place as prescribed Yes Yes Yes Has compression in place as prescribed Yes Yes Yes Has offloadiing in place as prescribed N/A No Yes Experienced any changes in pain level or No No No management Left Footwear Regular Shoe Right Footwear Regular Shoe Pain Scale: 0-10 Numeric Is Patient Pain Free? Yes No Yes LLE -Description Sharp,Burning -Intensity 7 -Alleviating Factors/Interventions Medication WC - Nurse 1 - General Ulcer Measurement Start: 03/10/23 10:35 Freq: Status: Active Protocol: Activity Type Activity Date Activity User E-sign Co-sign Detail Recorded Client Recorded Date Recorded By Document 03/10/23 10:36 DL [id number] 03/10/23 10:47 DL Document 03/15/23 14:02 KW [id number] 03/15/23 14:19 KW Document 03/24/23 11:20 DL [id number] 03/24/23 11:31 DL 03/10/23 03/15/23 03/24/23 10:36 14:02 11:20 Wound Center Nurse 1 #6 L lateral Le -Current Size (cm) - Length 1.4 1.6 0.8 -Current Size (cm) - Width 0.6 0.6 0.4 -Current Size (cm) - Depth 0.3 0.1 0.2 -Total Square Cm 0.84 0.96 0.32 -Photo Taken Yes -Epithelialization Small 1-33% -Exudate Amt Small Small Small -Exudate Type Serosanguineous Serosanguineous -Wound Margin Distinct, Distinct, Distinct, Outline Outline Outline Attached Attached Attached -Granulation Amt Large (67-100%) Small (1-33%) Large (67-100%) -Granulation Quality Red Red [place] -Necrosis Amt Small (1-33%) Small (1-33%) None Present (0 %) -Necrotic Tissue Type Adherent Slough -Structure Exposed N/A N/A -Texture (Brenna-wound Skin Appearance) Scarring Assessed Scarring -Moisture (Brenna-wound Skin Appearance) No Abnormality Assessed No Abnormality -Color (Brenna-wound Skin Appearance) No Abnormality Assessed No Abnormality -Temperature (Brenna-wound Skin No Abnormality No Abnormality No Abnormality Appearance) (Pt Warm) (Pt Warm) (Pt Warm) -Tenderness on Palpation (Brenna-wound No No Skin Appearance) -Ulcer Cleansing Soap and Water Rinsed/ Soap and Water Irrigated with Saline -Foul Odor after Cleansing No No -Anesthetic Used 5% Lidocaine 5% Lidocaine 5% Lidocaine Gel Gel Gel #5 L medial LE -Current Size (cm) - Length 4 3.5 4.1 -Current Size (cm) - Width 5.4 4.5 2.8 -Current Size (cm) - Depth 1.4 1.0 1.1 -Total Square Cm 21.6 15.75 11.48 -Photo Taken Yes -Undermining/Tunneling Starts (O'clock 9 9 9 ) -Undermining/Tunneling Ends (O'clock) 11 12 11 -Maximum Distance (cm) 3 1.2 2.2 -Exudate Amt Medium Large Medium -Exudate Type Serosanguineous Serosanguineous Yellow/Green -Wound Margin Thickened & Distinct, Thickened & Rolled Under Outline Rolled Under Attached -Granulation Amt Medium (34-66%) Large (67-100%) Large (67-100%) -Granulation Quality [place],Red Red Red -Necrosis Amt Medium (34-66%) Small (1-33%) Small (1-33%) -Necrotic Tissue Type Adherent Slough Adherent Slough Adherent Slough -Structure Exposed N/A N/A -Texture (Brenna-wound Skin Appearance) Scarring Assessed Scarring -Moisture (Brenna-wound Skin Appearance) No Abnormality Assessed No Abnormality -Color (Brenna-wound Skin Appearance) No Abnormality Assessed, No Abnormality Erythema -Temperature (Brenna-wound Skin No Abnormality No Abnormality No Abnormality Appearance) (Pt Warm) (Pt Warm) (Pt Warm) -Tenderness on Palpation (Brenna-wound No No Skin Appearance) -Ulcer Cleansing Soap and Water Rinsed/ Soap and Water Irrigated with Saline -Foul Odor after Cleansing No No -Anesthetic Used 4% Lidocaine 4% Lidocaine 5% Lidocaine Solution,5% Solution Gel Lidocaine Gel Right Calf (cm) 46.2 Right Ankle (cm) 27 Left Calf (cm) 46 45.5 Left Ankle (cm) 26.7 26.5 WC - Nurse 2 - General Ulcer CM Notes Start: 03/10/23 10:35 Freq: Status: Active Protocol: Activity Type Activity Date Activity User E-sign Co-sign Detail Recorded Client Recorded Date Recorded By Document 03/10/23 11:45 PL [id number] 03/10/23 11:48 PL Document 03/15/23 14:45 [id number] 03/15/23 14:54 Document 03/24/23 11:38 [id number] 03/24/23 11:43 03/10/23 03/15/23 03/24/23 11:45 14:45 11:38 Wound Center Nurse 2 #6 L lateral Le -Time 10:53 14:50 11:38 -Correct Patient Yes Yes Yes -Correct Side, Site, Position Yes Yes Yes -Correct Procedure Yes Yes Yes -Procedure Performed Yes Yes Yes -Type of Procedure Debridement Debridement Debridement -Clinical Debridement Subcutaneous Subcutaneous Subcutaneous -Tissue Removed Subcutaneous Subcutaneous Subcutaneous -Post Debridement (cm) - Length 1.9 1.5 1.5 -Post Debridement (cm) - Width 0.7 0.6 0.5 -Post Debridement (cm) - Depth 0.3 0.2 0.1 -Total Square (Post) (cm) 1.33 0.90 0.75 -Area of Debridement (cm) - Length 1.9 1.5 1.5 -Area of Debridement (cm) - Width 0.7 0.6 0.5 -Total Square (Area) (cm) 1.33 0.90 0.75 -Tunneling No No No -Undermining/Tunneling No No No -Circular Undermining No No No -Wound/Ulcer Outcome Not Healed Not Healed Not Healed -Ulcer Cleansing Rinsed/ Rinsed/ Irrigated with Irrigated with Saline Saline -Foul Odor after Cleansing No No -Bioengineered Tissue No -Bleeding Controlled with Pressure Pressure Pressure -Treatment Response Procedure Procedure Procedure Tolerated Well Tolerated Well Tolerated Well -Offloading No No -Debridement - Subq, 1st 20sq cm Yes Yes Yes #5 L medial LE -Time 10:53 14:46 11:38 -Correct Patient Yes Yes Yes -Correct Side, Site, Position Yes Yes Yes -Correct Procedure Yes Yes Yes -Procedure Performed Yes Yes Yes -Type of Procedure Debridement Debridement Debridement -Clinical Debridement Muscle / Fascia Muscle / Fascia Muscle / Fascia -Tissue Removed Muscle Muscle,Fascia Muscle,Fascia -Post Debridement (cm) - Length 3.8 3.6 3.7 -Post Debridement (cm) - Width 5.0 4.5 3.7 -Post Debridement (cm) - Depth 1.2 1.0 1.0 -Total Square (Post) (cm) 19.00 16.20 13.69 -Area of Debridement (cm) - Length 3.8 3.6 3.7 -Area of Debridement (cm) - Width 5.0 4.5 3.7 -Total Square (Area) (cm) 19.00 16.20 13.69 -Tunneling No No No -Undermining/Tunneling Yes No Yes -Undermining/Tunneling Starts (O'clock 9 9 ) -Undermining/Tunneling Ends (O'clock) 11 12 -Maximum Distance (cm) 2.5 1.9 -Circular Undermining No No No -Wound/Ulcer Outcome Not Healed Not Healed Not Healed -Ulcer Cleansing Rinsed/ Rinsed/ Rinsed/ Irrigated with Irrigated with Irrigated with Saline Saline Saline -Foul Odor after Cleansing No No No -Bioengineered Tissue No No No -Bleeding Controlled with Pressure Pressure Pressure -Treatment Response Procedure Procedure Procedure Tolerated Well Tolerated Well Tolerated Well -Offloading No No -Debridement - Subq, 1st 20sq cm No -Debridement - Muscle / Fascia, 1st Yes Yes Yes 20sq cm Pain Scale: 0-10 Numeric Is Patient Pain Free? Yes Yes Yes WC - Nurse 3 - General Ulcer D/C NN Start: 03/10/23 10:35 Freq: Status: Active Protocol: Activity Type Activity Date Activity User E-sign Co-sign Detail Recorded Client Recorded Date Recorded By Document 03/10/23 11:16 [facility] [id number] 03/10/23 11:17 BM Document 03/15/23 15:11 DL [id number] 03/15/23 15:13 DL Document 03/24/23 11:55 DL [id number] 03/24/23 11:56 DL 03/10/23 03/15/23 03/24/23 11:16 15:11 11:55 Wound Care Center Nurse 3 #6 L lateral Le -Ulcer Cleansing Rinsed/ Rinsed/ Rinsed/ Irrigated with Irrigated with Irrigated with Saline Saline Saline -Foul Odor after Cleansing No No No -Primary Dressing Applied Aquacel AG 4x4, Aquacel AG 4x4, Aquacel AG 4x4, Mepilex Border Mepilex Border Mepilex Border -Aquacel AG 4x4 1 1 1 -Mepilex Border 0 1 1 #5 L medial LE -Ulcer Cleansing Rinsed/ Rinsed/ Rinsed/ Irrigated with Irrigated with Irrigated with Saline Saline Saline -Foul Odor after Cleansing No No No -Primary Dressing Applied Aquacel AG 4x4, Mepilex Border Mepilex Border Mepilex Border -Other Dressing aquacel Ag aquacel ag -Aquacel AG 4x4 0 -Mepilex Border 1 1 1 Left -Compression Wrap Jonas Wrap -Tubular Bandage Single Layer Single Layer Single Layer -Size of Tubigrip Used Size E Size E Size E -Size E ($) 1 1 1 Treatment Response Procedure Procedure Procedure Tolerated Well Tolerated Well Tolerated Well Pain Scale: 0-10 Numeric Is Patient Pain Free? Yes Yes Yes WC - Visit Discharge Discharge Condition Stable Stable Stable Ambulatory Status Ambulatory Ambulatory Ambulatory Transportation Private Auto Private Auto Private Auto Accompanied by [facility] Facility Type Home Health Orders Sent Yes Additional Wound Wound debrided: #6 left lateral leg Laterality: Left Wound Grade/Stage: 2 Type of Debridement: Excisional debridement Anesthesia Used: 5% Lidocaine Gel Depth: Down to and including healthy tissue and in the subcutaneous layer Percentage of wound debrided: 100 Instrument Used: 3mm curette Tissue Removed: subcutaneous tissue. Severity: Fat Layer Exposed Amount of bleeding with debridement: Mild Bleeding Controlled with: Pressure and Compression and gauze Patient tolerated procedure: Patient tolerated procedure well Assessment/Plan Assessment/Plan (1) Ulcer of left lower extremity with muscle involvement without evidence of necrosis: CODE(S): L97.925 - Non-pressure chronic ulcer of unspecified part of left lower leg with muscle involvement without evidence of necrosis (2) Ulcer of left lower extremity with fat layer exposed: CODE(S): L97.922 - Non-pressure chronic ulcer of unspecified part of left lower leg with fat layer exposed (3) MRSA (methicillin resistant Staphylococcus aureus) infection: CODE(S): A49.02 - Methicillin resistant Staphylococcus aureus infection, unspecified site (4) History of incision and drainage: CODE(S): Z98.890 - Other specified postprocedural states (5) History of necrotizing fasciitis: CODE(S): Z87.39 - Personal history of other diseases of the musculoskeletal system and connective tissue (6) Borderline personality disorder: CODE(S): F60.3 - Borderline personality disorder PLAN: Plan Patient was evaluated at the wound healing center. Wound care - Place Aquacel-Ag to both the medial and lateral left leg ulcer and cover with ABD or [place] SAP dressing daily. Instructed her to make sure to pack the silver into the tunnel of the medial leg. Compression - Single tubi-psychiatric mental health nurse with JONAS wrap on left leg for compression. Continue Doxycycline and Diflucan for recent MRSA culture from her most recent hospitalization at [facility] in February. Her PCP is prescribing her antibiotics. Wound Culture obtained 12/29/22 positive for Enterococcus faecalis, Corynebacterium amycolatum, and Staphylococcus epidermidis. Treated with Augmentin and Doxycycline. Wound culture obtained 01/28/23 which was positive for Enterococcus faecalis and Corynebacterium striatum. She completed Augmentin. She will follow up in one week. From Dr. Alfonso's note Anticipate increased metabolic demands from the wounds. Will check a Prealbumin and encourage nutritional supplementation with protein. Patient's mother states they have been treating these ulcers for 4 months. Ulcers on lower extremities can take 6-12 months to heal. The ulcer on the left medial leg would have a better chance to heal if the tunneling area was opened up. Wound care with the VAC can be done under direct vision. AFter stabilization of the ulcer after surgery, can then proceed with delayed closure with skin grafting. Advanced skin substitute grafts can also be placed here at the Wound Center. After approval, the grafts are placed up to 10 applications over 12 weeks. Patient was informed of the risks and complications of the procedure including alternatives to surgery. These were discussed with the patient personally. Patient voices understanding and wishes to proceed. Surgery will be done under general anesthesia with a surgical observation overnight stay in the hospital.
[2023-03-29 11:05] VITALS: BP 115/71; PULSE 97; RESP 20; TEMP 36.4; BMI 48.9
--- NOTE | 2023-03-29 12:03 | PCM.WC.PN ---
History of Present Illness Date of Service: 03/29/23 Chief Complaint: non-healing surgical wounds of left medial and lateral leg History of Wound: Patient is a 22 year old female who presents to the wound healing center for evaluation of nonhealing surgical wounds of left left medial and lateral leg. Patient is a poor historian. Reviewed notes from [facility], she had been admitted to [place] around 11/27/22 for cellulitis and worsening infection of her left lower leg. She ended having an I&D of her left medial leg, left lateral leg and left lateral thigh. She was diagnosed with necrotizing fasciitis. Her wound cultures were positive for Enterococcus and steno. Mycoplasma IGG and IgM (+). She was sent to [facility] on 2 weeks dapto, arthur, clinda, levaquin, and micafungin. Changed Dap to to Vanc. On 12/12 stopped vanc/levaquin/arthur and started IV fluc due to diagnosis of candidemia. She was discharged home from [facility] around the second week of December. She has a history of significant for depression, personality disorder, self harm, anxiety, asthma, recurrent cellulitis and ADHD and most recently Afib and tachycardia. She states that she did not cause these wounds and did not do anything to them to make them worse. She has a history of being accused of tampering with wounds. Wound culture obtained on 12/29/22 which was positive for Enterococcus faecalis, Corynebacterium amycolatum, and MRSE. She was treated with Augmentin and Doxycycline. Wound culture obtained 01/28/23 which was positive for Enterococcus faecalis and Corynebacterium striatum. She was started on Augmentin. Left leg ultrasound obtained on 01/06/23 which showed There is no evidence of left lower extremity deep vein thrombosis. She was in [facility] for a week at the end of February for subcutaneous air around her wound. She states she cultured positive for MRSA and they had her on IV antibiotics. They used a wound VAC while she was in the hospital. She is now on Doxycycline. Today she denies fever, chills, nausea or vomiting. Progress of Wound: Left lateral leg ulcer is smaller with granulation tissue present. The left medial leg ulcer is smaller with granulation tissue present. Superior tunneling is slightly less. Objective Data Objective Data Vital Signs: Vital Signs Temp Pulse Resp BP O2 Del Method 97.6 F L 97 20 H 115/71 Room Air 03/29/23 11:05 03/29/23 11:05 03/29/23 11:05 03/29/23 11:05 03/15/23 14:02 Oxygen Delivery Method Room Air Weight: 276 lb Body Mass Index (BMI) 48.9 Charges/Coding Procedures Integumentary 111xxx-113xx: 14987 Stephany musc/fascia 20 sq cm/< (Left medial leg ulcer) Multi Select Codes Integumentary Integumentary CPT Codes: 43749 Stephany subq tissue 20 sq cm/< (Left lateral leg ulcer) Debridement Note Debridement Note Wound debrided: #5 left medial leg Laterality: Left Wound Grade/Stage: 3 Type of Debridement: Excisional debridement Anesthesia Used: 5% Lidocaine Gel Depth: Down to and including healthy tissue, in the subcutaneous layer and to muscle Percentage of wound debrided: 100 Instrument Used: 7mm curette Tissue Removed: subcutaneous tissue and muscle. Severity: Fat Layer Exposed (muscle is exposed.) Amount of bleeding with debridement: Mild Bleeding Controlled with: Pressure and Compression and gauze Patient tolerated procedure: Patient tolerated procedure well Debridement Free Text: Superior tunneling present. Post-Debridement Measurements and Additional Note: Post-Debridement Measurements/Treatment - Nurse 1 - General Ulcer Assessment Start: 03/10/23 10:35 Freq: Status: Active Protocol: BOBO Activity Type Activity Date Activity User E-sign Co-sign Detail Recorded Client Recorded Date Recorded By Document 03/10/23 10:36 DL [id number] 03/10/23 10:47 DL Document 03/15/23 14:02 KW [id number] 03/15/23 14:19 KW Document 03/24/23 11:20 DL [id number] 03/24/23 11:31 DL Document 03/29/23 11:05 DL [id number] 03/29/23 11:11 DL 03/10/23 03/15/23 03/24/23 10:36 14:02 11:20 - Today's Visit Information Type of service Follow-up Visit Follow-up Visit Follow-up Visit (Physician/SUPERVISOR LACE TEARING (Physician/SUPERVISOR LACE TEARING (Physician/SUPERVISOR LACE TEARING ) ) ) Arrival Mode Ambulatory Ambulatory Ambulatory Transfer Assistance None None Accompanied by mother Patient Identification Verified (Name & Yes Yes Yes ) Patient Requires Transmission-Based No No Precautions Height and Weight Body Mass Index (BMI) 48.9 48.9 48.9 BMI Classification Obese Obese Obese Vital Signs Temperature (97.8 F-99.1 F) 97.7 F L 97.1 F L 97.5 F L Temperature Source Temporal Temporal Temporal Pulse Rate (60-100) 104 H 97 96 Pulse Location Monitor Monitor Monitor Respiratory Rate (12-18) 20 H 18 18 Respiratory rate source Observation Ausculation Observation Oxygen Delivery Method Room Air Blood Pressure (90/60-120/80) 110/75 121/78 H 106/67 Blood Pressure Mean (mm Hg) 86 92 80 Source Monitor Monitor Monitor Position Sitting Blood Pressure Location Left Arm History Since Last Visit- (Skip if this is Patient's initial visit) Have you changed medications since your No No No last visit? Any new allergies or adverse reactions No No No Had a fall/change in ADL's that may No No No increase risk of falls Signs or symptoms of abuse and/or No No No neglect since last visit Have you been in the hospital since your No No No last visit? Has dressing in place as prescribed Yes Yes Yes Has compression in place as prescribed Yes Yes Yes Has offloadiing in place as prescribed N/A No Yes Experienced any changes in pain level or No No No management Left Footwear Regular Shoe Right Footwear Regular Shoe Pain Scale: 0-10 Numeric Is Patient Pain Free? Yes No Yes LLE -Description Sharp,Burning -Intensity 7 -Alleviating Factors/Interventions Medication 03/29/23 11:05 WC - Today's Visit Information Type of service Follow-up Visit (Physician/SUPERVISOR LACE TEARING ) Arrival Mode Ambulatory Transfer Assistance None Accompanied by Patient Identification Verified (Name & Yes ) Patient Requires Transmission-Based No Precautions Height and Weight Body Mass Index (BMI) 48.9 BMI Classification Obese Vital Signs Temperature (97.8 F-99.1 F) 97.6 F L Temperature Source Temporal Pulse Rate (60-100) 97 Pulse Location Monitor Respiratory Rate (12-18) 20 H Respiratory rate source Oxygen Delivery Method Blood Pressure (90/60-120/80) 115/71 Blood Pressure Mean (mm Hg) 85 Source Monitor Position Blood Pressure Location History Since Last Visit- (Skip if this is Patient's initial visit) Have you changed medications since your No last visit? Any new allergies or adverse reactions No Had a fall/change in ADL's that may No increase risk of falls Signs or symptoms of abuse and/or No neglect since last visit Have you been in the hospital since your No last visit? Has dressing in place as prescribed Yes Has compression in place as prescribed Yes Has offloadiing in place as prescribed N/A Experienced any changes in pain level or No management Left Footwear Right Footwear Pain Scale: 0-10 Numeric Is Patient Pain Free? Yes LLE -Description -Intensity -Alleviating Factors/Interventions WC - Nurse 1 - General Ulcer Measurement Start: 03/10/23 10:35 Freq: Status: Active Protocol: Activity Type Activity Date Activity User E-sign Co-sign Detail Recorded Client Recorded Date Recorded By Document 03/10/23 10:36 DL [id number] 03/10/23 10:47 DL Document 03/15/23 14:02 KW [id number] 03/15/23 14:19 KW Document 03/24/23 11:20 DL [id number] 03/24/23 11:31 DL Document 03/29/23 11:05 DL [id number] 03/29/23 11:11 DL 03/10/23 03/15/23 03/24/23 10:36 14:02 11:20 Wound Center Nurse 1 #6 L lateral Le -Current Size (cm) - Length 1.4 1.6 0.8 -Current Size (cm) - Width 0.6 0.6 0.4 -Current Size (cm) - Depth 0.3 0.1 0.2 -Total Square Cm 0.84 0.96 0.32 -Photo Taken Yes -Epithelialization Small 1-33% -Exudate Amt Small Small Small -Exudate Type Serosanguineous Serosanguineous -Wound Margin Distinct, Distinct, Distinct, Outline Outline Outline Attached Attached Attached -Granulation Amt Large (67-100%) Small (1-33%) Large (67-100%) -Granulation Quality Red Red [place] -Necrosis Amt Small (1-33%) Small (1-33%) None Present (0 %) -Necrotic Tissue Type Adherent Slough -Structure Exposed N/A N/A -Texture (Brenna-wound Skin Appearance) Scarring Assessed Scarring -Moisture (Brenna-wound Skin Appearance) No Abnormality Assessed No Abnormality -Color (Brenna-wound Skin Appearance) No Abnormality Assessed No Abnormality -Temperature (Brenna-wound Skin No Abnormality No Abnormality No Abnormality Appearance) (Pt Warm) (Pt Warm) (Pt Warm) -Tenderness on Palpation (Brenna-wound No No Skin Appearance) -Ulcer Cleansing Soap and Water Rinsed/ Soap and Water Irrigated with Saline -Foul Odor after Cleansing No No -Anesthetic Used 5% Lidocaine 5% Lidocaine 5% Lidocaine Gel Gel Gel #5 L medial LE -Current Size (cm) - Length 4 3.5 4.1 -Current Size (cm) - Width 5.4 4.5 2.8 -Current Size (cm) - Depth 1.4 1.0 1.1 -Total Square Cm 21.6 15.75 11.48 -Photo Taken Yes -Undermining/Tunneling Starts (O'clock 9 9 9 ) -Undermining/Tunneling Ends (O'clock) 11 12 11 -Maximum Distance (cm) 3 1.2 2.2 -Exudate Amt Medium Large Medium -Exudate Type Serosanguineous Serosanguineous Yellow/Green -Wound Margin Thickened & Distinct, Thickened & Rolled Under Outline Rolled Under Attached -Granulation Amt Medium (34-66%) Large (67-100%) Large (67-100%) -Granulation Quality [place],Red Red Red -Necrosis Amt Medium (34-66%) Small (1-33%) Small (1-33%) -Necrotic Tissue Type Adherent Slough Adherent Slough Adherent Slough -Structure Exposed N/A N/A -Texture (Brenna-wound Skin Appearance) Scarring Assessed Scarring -Moisture (Brenna-wound Skin Appearance) No Abnormality Assessed No Abnormality -Color (Brenna-wound Skin Appearance) No Abnormality Assessed, No Abnormality Erythema -Temperature (Brenna-wound Skin No Abnormality No Abnormality No Abnormality Appearance) (Pt Warm) (Pt Warm) (Pt Warm) -Tenderness on Palpation (Brenna-wound No No Skin Appearance) -Ulcer Cleansing Soap and Water Rinsed/ Soap and Water Irrigated with Saline -Foul Odor after Cleansing No No -Anesthetic Used 4% Lidocaine 4% Lidocaine 5% Lidocaine Solution,5% Solution Gel Lidocaine Gel Right Calf (cm) 46.2 Right Ankle (cm) 27 Left Calf (cm) 46 45.5 Left Ankle (cm) 26.7 26.5 03/29/23 11:05 Wound Center Nurse 1 #6 L lateral Le -Current Size (cm) - Length 0.8 -Current Size (cm) - Width 0.5 -Current Size (cm) - Depth 0.1 -Total Square Cm 0.40 -Photo Taken -Epithelialization -Exudate Amt None Present -Exudate Type -Wound Margin Distinct, Outline Attached -Granulation Amt Large (67-100%) -Granulation Quality [place] -Necrosis Amt None Present (0 %) -Necrotic Tissue Type -Structure Exposed N/A -Texture (Brenna-wound Skin Appearance) Scarring -Moisture (Brenna-wound Skin Appearance) No Abnormality -Color (Brenna-wound Skin Appearance) No Abnormality -Temperature (Brenna-wound Skin No Abnormality Appearance) (Pt Warm) -Tenderness on Palpation (Brenna-wound No Skin Appearance) -Ulcer Cleansing Soap and Water -Foul Odor after Cleansing No -Anesthetic Used 4% Lidocaine Solution,5% Lidocaine Gel #5 L medial LE -Current Size (cm) - Length 3.4 -Current Size (cm) - Width 3 -Current Size (cm) - Depth 1.1 -Total Square Cm 10.2 -Photo Taken -Undermining/Tunneling Starts (O'clock ) -Undermining/Tunneling Ends (O'clock) -Maximum Distance (cm) -Exudate Amt Medium -Exudate Type Serosanguineous -Wound Margin Thickened & Rolled Under -Granulation Amt Large (67-100%) -Granulation Quality [place],Red -Necrosis Amt Small (1-33%) -Necrotic Tissue Type Adherent Slough -Structure Exposed N/A -Texture (Brenna-wound Skin Appearance) Scarring -Moisture (Brenna-wound Skin Appearance) No Abnormality -Color (Brenna-wound Skin Appearance) No Abnormality -Temperature (Brenna-wound Skin No Abnormality Appearance) (Pt Warm) -Tenderness on Palpation (Brenna-wound No Skin Appearance) -Ulcer Cleansing Soap and Water -Foul Odor after Cleansing No -Anesthetic Used 4% Lidocaine Solution,5% Lidocaine Gel Right Calf (cm) Right Ankle (cm) Left Calf (cm) 45 Left Ankle (cm) 26.2 WC - Nurse 2 - General Ulcer CM Notes Start: 03/10/23 10:35 Freq: Status: Active Protocol: Activity Type Activity Date Activity User E-sign Co-sign Detail Recorded Client Recorded Date Recorded By Document 03/10/23 11:45 PL [id number] 03/10/23 11:48 PL Document 03/15/23 14:45 [id number] 03/15/23 14:54 Document 03/24/23 11:38 [id number] 03/24/23 11:43 Document 03/29/23 11:25 [id number] 03/29/23 11:28 03/10/23 03/15/23 03/24/23 11:45 14:45 11:38 Wound Center Nurse 2 #6 L lateral Le -Time 10:53 14:50 11:38 -Correct Patient Yes Yes Yes -Correct Side, Site, Position Yes Yes Yes -Correct Procedure Yes Yes Yes -Procedure Performed Yes Yes Yes -Type of Procedure Debridement Debridement Debridement -Clinical Debridement Subcutaneous Subcutaneous Subcutaneous -Tissue Removed Subcutaneous Subcutaneous Subcutaneous -Post Debridement (cm) - Length 1.9 1.5 1.5 -Post Debridement (cm) - Width 0.7 0.6 0.5 -Post Debridement (cm) - Depth 0.3 0.2 0.1 -Total Square (Post) (cm) 1.33 0.90 0.75 -Area of Debridement (cm) - Length 1.9 1.5 1.5 -Area of Debridement (cm) - Width 0.7 0.6 0.5 -Total Square (Area) (cm) 1.33 0.90 0.75 -Tunneling No No No -Undermining/Tunneling No No No -Circular Undermining No No No -Wound/Ulcer Outcome Not Healed Not Healed Not Healed -Ulcer Cleansing Rinsed/ Rinsed/ Irrigated with Irrigated with Saline Saline -Foul Odor after Cleansing No No -Bioengineered Tissue No -Bleeding Controlled with Pressure Pressure Pressure -Treatment Response Procedure Procedure Procedure Tolerated Well Tolerated Well Tolerated Well -Offloading No No -Debridement - Subq, 1st 20sq cm Yes Yes Yes #5 L medial LE -Time 10:53 14:46 11:38 -Correct Patient Yes Yes Yes -Correct Side, Site, Position Yes Yes Yes -Correct Procedure Yes Yes Yes -Procedure Performed Yes Yes Yes -Type of Procedure Debridement Debridement Debridement -Clinical Debridement Muscle / Fascia Muscle / Fascia Muscle / Fascia -Tissue Removed Muscle Muscle,Fascia Muscle,Fascia -Post Debridement (cm) - Length 3.8 3.6 3.7 -Post Debridement (cm) - Width 5.0 4.5 3.7 -Post Debridement (cm) - Depth 1.2 1.0 1.0 -Total Square (Post) (cm) 19.00 16.20 13.69 -Area of Debridement (cm) - Length 3.8 3.6 3.7 -Area of Debridement (cm) - Width 5.0 4.5 3.7 -Total Square (Area) (cm) 19.00 16.20 13.69 -Tunneling No No No -Undermining/Tunneling Yes No Yes -Undermining/Tunneling Starts (O'clock 9 9 ) -Undermining/Tunneling Ends (O'clock) 11 12 -Maximum Distance (cm) 2.5 1.9 -Circular Undermining No No No -Wound/Ulcer Outcome Not Healed Not Healed Not Healed -Ulcer Cleansing Rinsed/ Rinsed/ Rinsed/ Irrigated with Irrigated with Irrigated with Saline Saline Saline -Foul Odor after Cleansing No No No -Bioengineered Tissue No No No -Bleeding Controlled with Pressure Pressure Pressure -Treatment Response Procedure Procedure Procedure Tolerated Well Tolerated Well Tolerated Well -Offloading No No -Debridement - Subq, 1st 20sq cm No -Debridement - Muscle / Fascia, 1st Yes Yes Yes 20sq cm Pain Scale: 0-10 Numeric Is Patient Pain Free? Yes Yes Yes 03/29/23 11:25 Wound Center Nurse 2 #6 L lateral Le -Time 11:25 -Correct Patient Yes -Correct Side, Site, Position Yes -Correct Procedure Yes -Procedure Performed Yes -Type of Procedure Debridement -Clinical Debridement Subcutaneous -Tissue Removed Subcutaneous -Post Debridement (cm) - Length 1.2 -Post Debridement (cm) - Width 0.5 -Post Debridement (cm) - Depth 0.1 -Total Square (Post) (cm) 0.60 -Area of Debridement (cm) - Length 1.2 -Area of Debridement (cm) - Width 0.5 -Total Square (Area) (cm) 0.60 -Tunneling No -Undermining/Tunneling No -Circular Undermining No -Wound/Ulcer Outcome Not Healed -Ulcer Cleansing Rinsed/ Irrigated with Saline -Foul Odor after Cleansing No -Bioengineered Tissue No -Bleeding Controlled with Pressure -Treatment Response Procedure Tolerated Well -Offloading No -Debridement - Subq, 1st 20sq cm Yes #5 L medial LE -Time 11:26 -Correct Patient Yes -Correct Side, Site, Position Yes -Correct Procedure Yes -Procedure Performed Yes -Type of Procedure Debridement -Clinical Debridement Muscle / Fascia -Tissue Removed Muscle,Fascia -Post Debridement (cm) - Length 3.0 -Post Debridement (cm) - Width 3.8 -Post Debridement (cm) - Depth 0.6 -Total Square (Post) (cm) 11.40 -Area of Debridement (cm) - Length 3.0 -Area of Debridement (cm) - Width 3.8 -Total Square (Area) (cm) 11.40 -Tunneling No -Undermining/Tunneling Yes -Undermining/Tunneling Starts (O'clock 9 ) -Undermining/Tunneling Ends (O'clock) 12 -Maximum Distance (cm) 2.0 -Circular Undermining No -Wound/Ulcer Outcome Not Healed -Ulcer Cleansing Rinsed/ Irrigated with Saline -Foul Odor after Cleansing No -Bioengineered Tissue No -Bleeding Controlled with Pressure -Treatment Response Procedure Tolerated Well -Offloading No -Debridement - Subq, 1st 20sq cm -Debridement - Muscle / Fascia, 1st Yes 20sq cm Pain Scale: 0-10 Numeric Is Patient Pain Free? Yes WC - Nurse 3 - General Ulcer D/C NN Start: 03/10/23 10:35 Freq: Status: Active Protocol: Activity Type Activity Date Activity User E-sign Co-sign Detail Recorded Client Recorded Date Recorded By Document 03/10/23 11:16 [facility] [id number] 03/10/23 11:17 [facility] Document 03/15/23 15:11 DL [id number] 03/15/23 15:13 DL Document 03/24/23 11:55 DL [id number] 03/24/23 11:56 DL Document 03/29/23 11:38 DL [id number] 03/29/23 11:42 DL 03/10/23 03/15/23 03/24/23 11:16 15:11 11:55 Wound Care Center Nurse 3 #6 L lateral Le -Ulcer Cleansing Rinsed/ Rinsed/ Rinsed/ Irrigated with Irrigated with Irrigated with Saline Saline Saline -Foul Odor after Cleansing No No No -Primary Dressing Applied Aquacel AG 4x4, Aquacel AG 4x4, Aquacel AG 4x4, Mepilex Border Mepilex Border Mepilex Border -Aquacel AG 4x4 1 1 1 -Mepilex Border 0 1 1 #5 L medial LE -Ulcer Cleansing Rinsed/ Rinsed/ Rinsed/ Irrigated with Irrigated with Irrigated with Saline Saline Saline -Foul Odor after Cleansing No No No -Primary Dressing Applied Aquacel AG 4x4, Mepilex Border Mepilex Border Mepilex Border -Other Dressing aquacel Ag aquacel ag -Aquacel AG 4x4 0 -Mepilex Border 1 1 1 Left -Compression Wrap Jonas Wrap -Tubular Bandage Single Layer Single Layer Single Layer -Size of Tubigrip Used Size E Size E Size E -Size E ($) 1 1 1 Treatment Response Procedure Procedure Procedure Tolerated Well Tolerated Well Tolerated Well Pain Scale: 0-10 Numeric Is Patient Pain Free? Yes Yes Yes WC - Visit Discharge Discharge Condition Stable Stable Stable Ambulatory Status Ambulatory Ambulatory Ambulatory Transportation Private Auto Private Auto Private Auto Accompanied by [facility] Facility Type Home Health Orders Sent Yes 03/29/23 11:38 Wound Care Center Nurse 3 #6 L lateral Le -Ulcer Cleansing Rinsed/ Irrigated with Saline -Foul Odor after Cleansing No -Primary Dressing Applied Aquacel AG 4x4, Mepilex Border -Aquacel AG 4x4 1 -Mepilex Border 1 #5 L medial LE -Ulcer Cleansing Rinsed/ Irrigated with Saline -Foul Odor after Cleansing No -Primary Dressing Applied Aquacel AG 4x4, Mepilex Border -Other Dressing -Aquacel AG 4x4 1 -Mepilex Border 1 Left -Compression Wrap -Tubular Bandage -Size of Tubigrip Used -Size E ($) Treatment Response Procedure Tolerated Well Pain Scale: 0-10 Numeric Is Patient Pain Free? Yes WC - Visit Discharge Discharge Condition Stable Ambulatory Status Ambulatory Transportation Private Auto Accompanied by Facility Type Orders Sent Additional Wound Wound debrided: #6 left lateral leg Laterality: Left Wound Grade/Stage: 2 Type of Debridement: Excisional debridement Anesthesia Used: 5% Lidocaine Gel Depth: Down to and including healthy tissue and in the subcutaneous layer Percentage of wound debrided: 100 Instrument Used: 3mm curette Tissue Removed: subcutaneous tissue. Severity: Fat Layer Exposed Amount of bleeding with debridement: Mild Bleeding Controlled with: Pressure and Compression and gauze Patient tolerated procedure: Patient tolerated procedure well Assessment/Plan Assessment/Plan (1) Ulcer of left lower extremity with muscle involvement without evidence of necrosis: CODE(S): L97.925 - Non-pressure chronic ulcer of unspecified part of left lower leg with muscle involvement without evidence of necrosis (2) Ulcer of left lower extremity with fat layer exposed: CODE(S): L97.922 - Non-pressure chronic ulcer of unspecified part of left lower leg with fat layer exposed (3) MRSA (methicillin resistant Staphylococcus aureus) infection: CODE(S): A49.02 - Methicillin resistant Staphylococcus aureus infection, unspecified site (4) History of incision and drainage: CODE(S): Z98.890 - Other specified postprocedural states (5) History of necrotizing fasciitis: CODE(S): Z87.39 - Personal history of other diseases of the musculoskeletal system and connective tissue (6) Borderline personality disorder: CODE(S): F60.3 - Borderline personality disorder PLAN: Plan Patient was evaluated at the wound healing center. Wound care - Place Aquacel-Ag to both the medial and lateral left leg ulcer and cover with ABD or [place] SAP dressing daily. Instructed her to make sure to pack the silver into the tunnel of the medial leg. Compression - Single tubi-edi programmer with JONAS wrap on left leg for compression. Continue Doxycycline and Diflucan for recent MRSA culture from her most recent hospitalization at [facility] in February. Her PCP is prescribing her antibiotics. Wound Culture obtained 12/29/22 positive for Enterococcus faecalis, Corynebacterium amycolatum, and Staphylococcus epidermidis. Treated with Augmentin and Doxycycline. Wound culture obtained 01/28/23 which was positive for Enterococcus faecalis and Corynebacterium striatum. She completed Augmentin. She will follow up in one week. From Dr. Alfonso's note Anticipate increased metabolic demands from the wounds. Will check a Prealbumin and encourage nutritional supplementation with protein. Patient's mother states they have been treating these ulcers for 4 months. Ulcers on lower extremities can take 6-12 months to heal. The ulcer on the left medial leg would have a better chance to heal if the tunneling area was opened up. Wound care with the VAC can be done under direct vision. AFter stabilization of the ulcer after surgery, can then proceed with delayed closure with skin grafting. Advanced skin substitute grafts can also be placed here at the Wound Center. After approval, the grafts are placed up to 10 applications over 12 weeks. Patient was informed of the risks and complications of the procedure including alternatives to surgery. These were discussed with the patient personally. Patient voices understanding and wishes to proceed. Surgery will be done under general anesthesia with a surgical observation overnight stay in the hospital.
[2023-04-05 10:39] VITALS: BP 126/93; PULSE 107; RESP 16; TEMP 35; BMI 48.9
--- NOTE | 2023-04-05 12:19 | PN.PCM_ITS ---
History of Present Illness Date of Service: 04/05/23 Chief Complaint: non-healing surgical wounds of left medial and lateral leg History of Wound: Patient is a 22 year old female who presents to the wound healing center for evaluation of nonhealing surgical wounds of left left medial and lateral leg. Patient is a poor historian. Reviewed notes from [facility], she had been admitted to [facility] around 11/27/22 for cellulitis and worsening infection of her left lower leg. She ended having an I&D of her left medial leg, left lateral leg and left lateral thigh. She was diagnosed with necrotizing fasciitis. Her wound cultures were positive for Enterococcus and steno. Mycoplasma IGG and IgM (+). She was sent to [facility] on 2 weeks dapto, arthur, clinda, levaquin, and micafungin. Changed Dap to to Vanc. On 12/12 stopped vanc/levaquin/arthur and started IV fluc due to diagnosis of candidemia. She was discharged home from [facility] around the second week of December. She has a history of significant for depression, personality disorder, self harm, anxiety, asthma, recurrent cellulitis and ADHD and most recently Afib and tachycardia. She states that she did not cause these wounds and did not do anything to them to make them worse. She has a history of being accused of tampering with wounds. Wound culture obtained on 12/29/22 which was positive for Enterococcus faecalis, Corynebacterium amycolatum, and MRSE. She was treated with Augmentin and Doxycycline. Wound culture obtained 01/28/23 which was positive for Enterococcus faecalis and Corynebacterium striatum. She was started on Augmentin. Left leg ultrasound obtained on 01/06/23 which showed There is no evidence of left lower extremity deep vein thrombosis. She was in [facility] for a week at the end of February for subcutaneous air around her wound. She states she cultured positive for MRSA and they had her on IV antibiotics. They used a wound VAC while she was in the hospital. She is now on Doxycycline. Today she denies fever, chills, nausea or vomiting. Progress of Wound: Left lateral leg ulcer is smaller with granulation tissue present. The left medial leg ulcer is smaller with granulation tissue present. Superior tunneling is slightly less. Today she presents with approx 12 x 12 cm area with blisters and scabbing that is proximal to the left medial leg wound. It is over the area where she was experiencing crepitus when she last was hospitalized. She states that she has not been feeling well and has been running low grade fevers on and off. Objective Data Objective Data Vital Signs: Vital Signs Temp Pulse Resp BP O2 Del Method 95 F L 107 H 16 126/93 H Room Air 04/05/23 10:39 04/05/23 10:39 04/05/23 10:39 04/05/23 10:39 04/05/23 10:39 Oxygen Delivery Method Room Air Weight: 276 lb Body Mass Index (BMI) 48.9 Charges/Coding Procedures Integumentary 111xxx-113xx: 13183 Stephany musc/fascia 20 sq cm/< (Left medial leg ulcer) Multi Select Codes Integumentary Integumentary CPT Codes: 69014 Stephany subq tissue 20 sq cm/< (left lateral leg ulcer) Debridement Note Debridement Note Wound debrided: #5 left medial leg Laterality: Left Wound Grade/Stage: 3 Type of Debridement: Excisional debridement Anesthesia Used: 5% Lidocaine Gel Depth: Down to and including healthy tissue, in the subcutaneous layer and to muscle Percentage of wound debrided: 100 Instrument Used: 7mm curette Tissue Removed: subcutaneous tissue and muscle. Severity: Fat Layer Exposed (muscle is exposed.) Amount of bleeding with debridement: Mild Bleeding Controlled with: Pressure and Compression and gauze Patient tolerated procedure: Patient tolerated procedure well Debridement Free Text: Superior tunneling present. Proximal to the ulcer is a 12 x 12 cm patch of blisters/scabbing that developed starting last . Post-Debridement Measurements and Additional Note: Post-Debridement Measurements/Treatment - Nurse 1 - General Ulcer Assessment Start: 03/10/23 10:35 Freq: Status: Active Protocol: BOBO Activity Type Activity Date Activity User E-sign Co-sign Detail Recorded Client Recorded Date Recorded By Document 03/10/23 10:36 DL [id number] 03/10/23 10:47 DL Document 03/15/23 14:02 KW [id number] 03/15/23 14:19 KW Document 03/24/23 11:20 DL [id number] 03/24/23 11:31 DL Document 03/29/23 11:05 DL [id number] 03/29/23 11:11 DL Document 04/05/23 10:39 BMF [id number] 04/05/23 10:49 BMF 03/10/23 03/15/23 03/24/23 10:36 14:02 11:20 WC - Today's Visit Information Type of service Follow-up Visit Follow-up Visit Follow-up Visit (Physician/EQUIPMENT SPECIALIST (Physician/EQUIPMENT SPECIALIST (Physician/EQUIPMENT SPECIALIST ) ) ) Arrival Mode Ambulatory Ambulatory Ambulatory Transfer Assistance None None Accompanied by mother Patient Identification Verified (Name & Yes Yes Yes ) Patient Requires Transmission-Based No No Precautions Height and Weight Body Mass Index (BMI) 48.9 48.9 48.9 BMI Classification Obese Obese Obese Vital Signs Temperature (97.8 F-99.1 F) 97.7 F L 97.1 F L 97.5 F L Temperature Source Temporal Temporal Temporal Pulse Rate (60-100) 104 H 97 96 Pulse Location Monitor Monitor Monitor Respiratory Rate (12-18) 20 H 18 18 Respiratory rate source Observation Ausculation Observation Oxygen Delivery Method Room Air Blood Pressure (90/60-120/80) 110/75 121/78 H 106/67 Blood Pressure Mean (mm Hg) 86 92 80 Source Monitor Monitor Monitor Position Sitting Blood Pressure Location Left Arm History Since Last Visit- (Skip if this is Patient's initial visit) Have you changed medications since your No No No last visit? Any new allergies or adverse reactions No No No Had a fall/change in ADL's that may No No No increase risk of falls Signs or symptoms of abuse and/or No No No neglect since last visit Have you been in the hospital since your No No No last visit? Has dressing in place as prescribed Yes Yes Yes Has compression in place as prescribed Yes Yes Yes Has offloadiing in place as prescribed N/A No Yes Experienced any changes in pain level or No No No management Left Footwear Regular Shoe Right Footwear Regular Shoe Pain Scale: 0-10 Numeric Is Patient Pain Free? Yes No Yes LLE -Description Sharp,Burning -Intensity 7 -Alleviating Factors/Interventions Medication 03/29/23 04/05/23 11:05 10:39 WC - Today's Visit Information Type of service Follow-up Visit Follow-up Visit (Physician/EQUIPMENT SPECIALIST (Physician/EQUIPMENT SPECIALIST ) ) Arrival Mode Ambulatory Ambulatory Transfer Assistance None None Accompanied by mom Patient Identification Verified (Name & Yes Yes ) Patient Requires Transmission-Based No No Precautions Height and Weight Body Mass Index (BMI) 48.9 48.9 BMI Classification Obese Obese Vital Signs Temperature (97.8 F-99.1 F) 97.6 F L 95 F L Temperature Source Temporal Temporal Pulse Rate (60-100) 97 107 H Pulse Location Monitor Monitor Respiratory Rate (12-18) 20 H 16 Respiratory rate source Observation Oxygen Delivery Method Room Air Blood Pressure (90/60-120/80) 115/71 126/93 H Blood Pressure Mean (mm Hg) 85 104 Source Monitor Monitor Position Sitting Blood Pressure Location Left Forearm History Since Last Visit- (Skip if this is Patient's initial visit) Have you changed medications since your No No last visit? Any new allergies or adverse reactions No No Had a fall/change in ADL's that may No No increase risk of falls Signs or symptoms of abuse and/or No No neglect since last visit Have you been in the hospital since your No No last visit? Has dressing in place as prescribed Yes Yes Has compression in place as prescribed Yes N/A Has offloadiing in place as prescribed N/A N/A Experienced any changes in pain level or No No management Left Footwear Regular Shoe Right Footwear Regular Shoe Pain Scale: 0-10 Numeric Is Patient Pain Free? Yes Yes LLE -Description -Intensity -Alleviating Factors/Interventions WC - Nurse 1 - General Ulcer Measurement Start: 03/10/23 10:35 Freq: Status: Active Protocol: Activity Type Activity Date Activity User E-sign Co-sign Detail Recorded Client Recorded Date Recorded By Document 03/10/23 10:36 DL [id number] 03/10/23 10:47 DL Document 03/15/23 14:02 KW [id number] 03/15/23 14:19 KW Document 03/24/23 11:20 DL [id number] 03/24/23 11:31 DL Document 03/29/23 11:05 DL [id number] 03/29/23 11:11 DL Document 04/05/23 10:39 BMF [id number] 04/05/23 10:49 BMF 03/10/23 03/15/23 03/24/23 10:36 14:02 11:20 Wound Center Nurse 1 #6 L lateral Le -Combined with other wound -Current Size (cm) - Length 1.4 1.6 0.8 -Current Size (cm) - Width 0.6 0.6 0.4 -Current Size (cm) - Depth 0.3 0.1 0.2 -Total Square Cm 0.84 0.96 0.32 -Photo Taken Yes -Epithelialization Small 1-33% -Tunneling -Undermining/Tunneling -Circular Undermining -Exudate Amt Small Small Small -Exudate Type Serosanguineous Serosanguineous -Wound Margin Distinct, Distinct, Distinct, Outline Outline Outline Attached Attached Attached -Granulation Amt Large (67-100%) Small (1-33%) Large (67-100%) -Granulation Quality Red Red [place] -Slough/Fibrin -Necrosis Amt Small (1-33%) Small (1-33%) None Present (0 %) -Necrotic Tissue Type Adherent Slough -Structure Exposed N/A N/A -Texture (Brenna-wound Skin Appearance) Scarring Assessed Scarring -Moisture (Brenna-wound Skin Appearance) No Abnormality Assessed No Abnormality -Color (Brenna-wound Skin Appearance) No Abnormality Assessed No Abnormality -Temperature (Brenna-wound Skin No Abnormality No Abnormality No Abnormality Appearance) (Pt Warm) (Pt Warm) (Pt Warm) -Tenderness on Palpation (Brenna-wound No No Skin Appearance) -Ulcer Cleansing Soap and Water Rinsed/ Soap and Water Irrigated with Saline -Foul Odor after Cleansing No No -Anesthetic Used 5% Lidocaine 5% Lidocaine 5% Lidocaine Gel Gel Gel #5 L medial LE -Combined with other wound -Current Size (cm) - Length 4 3.5 4.1 -Current Size (cm) - Width 5.4 4.5 2.8 -Current Size (cm) - Depth 1.4 1.0 1.1 -Total Square Cm 21.6 15.75 11.48 -Photo Taken Yes -Epithelialization -Tunneling -Undermining/Tunneling -Undermining/Tunneling Starts (O'clock 9 9 9 ) -Undermining/Tunneling Ends (O'clock) 11 12 11 -Maximum Distance (cm) 3 1.2 2.2 -Circular Undermining -Exudate Amt Medium Large Medium -Exudate Type Serosanguineous Serosanguineous Yellow/Green -Wound Margin Thickened & Distinct, Thickened & Rolled Under Outline Rolled Under Attached -Granulation Amt Medium (34-66%) Large (67-100%) Large (67-100%) -Granulation Quality [place],Red Red Red -Slough/Fibrin -Necrosis Amt Medium (34-66%) Small (1-33%) Small (1-33%) -Necrotic Tissue Type Adherent Slough Adherent Slough Adherent Slough -Structure Exposed N/A N/A -Texture (Brenna-wound Skin Appearance) Scarring Assessed Scarring -Moisture (Brenna-wound Skin Appearance) No Abnormality Assessed No Abnormality -Color (Brenna-wound Skin Appearance) No Abnormality Assessed, No Abnormality Erythema -Temperature (Brenna-wound Skin No Abnormality No Abnormality No Abnormality Appearance) (Pt Warm) (Pt Warm) (Pt Warm) -Tenderness on Palpation (Brenna-wound No No Skin Appearance) -Ulcer Cleansing Soap and Water Rinsed/ Soap and Water Irrigated with Saline -Foul Odor after Cleansing No No -Anesthetic Used 4% Lidocaine 4% Lidocaine 5% Lidocaine Solution,5% Solution Gel Lidocaine Gel Right Calf (cm) 46.2 Right Ankle (cm) 27 Left Calf (cm) 46 45.5 Left Ankle (cm) 26.7 26.5 03/29/23 04/05/23 11:05 10:39 Wound Center Nurse 1 #6 L lateral Le -Combined with other wound No -Current Size (cm) - Length 0.8 0.5 -Current Size (cm) - Width 0.5 0.3 -Current Size (cm) - Depth 0.1 0.2 -Total Square Cm 0.40 0.15 -Photo Taken No -Epithelialization Large 67-100% -Tunneling No -Undermining/Tunneling No -Circular Undermining No -Exudate Amt None Present Small -Exudate Type Serosanguineous -Wound Margin Distinct, Distinct, Outline Outline Attached Attached -Granulation Amt Large (67-100%) Large (67-100%) -Granulation Quality [place] Red -Slough/Fibrin No -Necrosis Amt None Present (0 None Present (0 %) %) -Necrotic Tissue Type -Structure Exposed N/A -Texture (Brenna-wound Skin Appearance) Scarring Assessed, Scarring -Moisture (Brenna-wound Skin Appearance) No Abnormality Assessed,Dry/ Scaly -Color (Brenna-wound Skin Appearance) No Abnormality Assessed -Temperature (Brenna-wound Skin No Abnormality No Abnormality Appearance) (Pt Warm) (Pt Warm) -Tenderness on Palpation (Brenna-wound No No Skin Appearance) -Ulcer Cleansing Soap and Water Rinsed/ Irrigated with Saline -Foul Odor after Cleansing No No -Anesthetic Used 4% Lidocaine 5% Lidocaine Solution,5% Gel Lidocaine Gel #5 L medial LE -Combined with other wound No -Current Size (cm) - Length 3.4 2.5 -Current Size (cm) - Width 3 3 -Current Size (cm) - Depth 1.1 0.7 -Total Square Cm 10.2 7.5 -Photo Taken No -Epithelialization None Present -Tunneling No -Undermining/Tunneling Yes -Undermining/Tunneling Starts (O'clock 9 ) -Undermining/Tunneling Ends (O'clock) 11 -Maximum Distance (cm) 1.8 -Circular Undermining No -Exudate Amt Medium Large -Exudate Type Serosanguineous Serosanguineous -Wound Margin Thickened & Distinct, Rolled Under Outline Attached -Granulation Amt Large (67-100%) Large (67-100%) -Granulation Quality [place],Red Red -Slough/Fibrin Yes -Necrosis Amt Small (1-33%) Small (1-33%) -Necrotic Tissue Type Adherent Slough Adherent Slough -Structure Exposed N/A -Texture (Brenna-wound Skin Appearance) Scarring Assessed, Scarring -Moisture (Brenna-wound Skin Appearance) No Abnormality Assessed -Color (Brenna-wound Skin Appearance) No Abnormality Assessed -Temperature (Brenna-wound Skin No Abnormality No Abnormality Appearance) (Pt Warm) (Pt Warm) -Tenderness on Palpation (Brenna-wound No No Skin Appearance) -Ulcer Cleansing Soap and Water Rinsed/ Irrigated with Saline -Foul Odor after Cleansing No No -Anesthetic Used 4% Lidocaine 5% Lidocaine Solution,5% Gel Lidocaine Gel Right Calf (cm) Right Ankle (cm) Left Calf (cm) 45 48.1 Left Ankle (cm) 26.2 27 WC - Nurse 2 - General Ulcer CM Notes Start: 03/10/23 10:35 Freq: Status: Active Protocol: Activity Type Activity Date Activity User E-sign Co-sign Detail Recorded Client Recorded Date Recorded By Document 03/10/23 11:45 PL [id number] 03/10/23 11:48 PL Document 03/15/23 14:45 [id number] 03/15/23 14:54 JF Document 03/24/23 11:38 [id number] 03/24/23 11:43 JF Document 03/29/23 11:25 [id number] 03/29/23 11:28 Document 04/05/23 11:08 [id number] 04/05/23 11:17 JF 03/10/23 03/15/23 03/24/23 11:45 14:45 11:38 Wound Center Nurse 2 #6 L lateral Le -Time 10:53 14:50 11:38 -Correct Patient Yes Yes Yes -Correct Side, Site, Position Yes Yes Yes -Correct Procedure Yes Yes Yes -Procedure Performed Yes Yes Yes -Type of Procedure Debridement Debridement Debridement -Clinical Debridement Subcutaneous Subcutaneous Subcutaneous -Tissue Removed Subcutaneous Subcutaneous Subcutaneous -Post Debridement (cm) - Length 1.9 1.5 1.5 -Post Debridement (cm) - Width 0.7 0.6 0.5 -Post Debridement (cm) - Depth 0.3 0.2 0.1 -Total Square (Post) (cm) 1.33 0.90 0.75 -Area of Debridement (cm) - Length 1.9 1.5 1.5 -Area of Debridement (cm) - Width 0.7 0.6 0.5 -Total Square (Area) (cm) 1.33 0.90 0.75 -Tunneling No No No -Undermining/Tunneling No No No -Circular Undermining No No No -Wound/Ulcer Outcome Not Healed Not Healed Not Healed -Ulcer Cleansing Rinsed/ Rinsed/ Irrigated with Irrigated with Saline Saline -Foul Odor after Cleansing No No -Bioengineered Tissue No -Bleeding Controlled with Pressure Pressure Pressure -Treatment Response Procedure Procedure Procedure Tolerated Well Tolerated Well Tolerated Well -Offloading No No -Debridement - Subq, 1st 20sq cm Yes Yes Yes #5 L medial LE -Time 10:53 14:46 11:38 -Correct Patient Yes Yes Yes -Correct Side, Site, Position Yes Yes Yes -Correct Procedure Yes Yes Yes -Procedure Performed Yes Yes Yes -Type of Procedure Debridement Debridement Debridement -Clinical Debridement Muscle / Fascia Muscle / Fascia Muscle / Fascia -Tissue Removed Muscle Muscle,Fascia Muscle,Fascia -Post Debridement (cm) - Length 3.8 3.6 3.7 -Post Debridement (cm) - Width 5.0 4.5 3.7 -Post Debridement (cm) - Depth 1.2 1.0 1.0 -Total Square (Post) (cm) 19.00 16.20 13.69 -Area of Debridement (cm) - Length 3.8 3.6 3.7 -Area of Debridement (cm) - Width 5.0 4.5 3.7 -Total Square (Area) (cm) 19.00 16.20 13.69 -Tunneling No No No -Undermining/Tunneling Yes No Yes -Undermining/Tunneling Starts (O'clock 9 9 ) -Undermining/Tunneling Ends (O'clock) 11 12 -Maximum Distance (cm) 2.5 1.9 -Circular Undermining No No No -Wound/Ulcer Outcome Not Healed Not Healed Not Healed -Ulcer Cleansing Rinsed/ Rinsed/ Rinsed/ Irrigated with Irrigated with Irrigated with Saline Saline Saline -Foul Odor after Cleansing No No No -Bioengineered Tissue No No No -Bleeding Controlled with Pressure Pressure Pressure -Treatment Response Procedure Procedure Procedure Tolerated Well Tolerated Well Tolerated Well -Offloading No No -Debridement - Subq, 1st 20sq cm No -Debridement - Muscle / Fascia, 1st Yes Yes Yes 20sq cm Pain Scale: 0-10 Numeric Is Patient Pain Free? Yes Yes Yes 03/29/23 04/05/23 11:25 11:08 Wound Center Nurse 2 #6 L lateral Le -Time 11:25 11:15 -Correct Patient Yes Yes -Correct Side, Site, Position Yes Yes -Correct Procedure Yes Yes -Procedure Performed Yes Yes -Type of Procedure Debridement Debridement -Clinical Debridement Subcutaneous Subcutaneous -Tissue Removed Subcutaneous Subcutaneous -Post Debridement (cm) - Length 1.2 0.7 -Post Debridement (cm) - Width 0.5 0.4 -Post Debridement (cm) - Depth 0.1 0.1 -Total Square (Post) (cm) 0.60 0.28 -Area of Debridement (cm) - Length 1.2 0.7 -Area of Debridement (cm) - Width 0.5 0.4 -Total Square (Area) (cm) 0.60 0.28 -Tunneling No No -Undermining/Tunneling No No -Circular Undermining No No -Wound/Ulcer Outcome Not Healed Not Healed -Ulcer Cleansing Rinsed/ Rinsed/ Irrigated with Irrigated with Saline Saline -Foul Odor after Cleansing No No -Bioengineered Tissue No No -Bleeding Controlled with Pressure Pressure -Treatment Response Procedure Procedure Tolerated Well Tolerated Well -Offloading No No -Debridement - Subq, 1st 20sq cm Yes Yes #5 L medial LE -Time 11:26 11:08 -Correct Patient Yes Yes -Correct Side, Site, Position Yes Yes -Correct Procedure Yes Yes -Procedure Performed Yes Yes -Type of Procedure Debridement Debridement -Clinical Debridement Muscle / Fascia Muscle / Fascia -Tissue Removed Muscle,Fascia Muscle,Fascia -Post Debridement (cm) - Length 3.0 2.7 -Post Debridement (cm) - Width 3.8 3.5 -Post Debridement (cm) - Depth 0.6 0.6 -Total Square (Post) (cm) 11.40 9.45 -Area of Debridement (cm) - Length 3.0 2.7 -Area of Debridement (cm) - Width 3.8 3.5 -Total Square (Area) (cm) 11.40 9.45 -Tunneling No No -Undermining/Tunneling Yes Yes -Undermining/Tunneling Starts (O'clock 9 9 ) -Undermining/Tunneling Ends (O'clock) 12 12 -Maximum Distance (cm) 2.0 2.2 -Circular Undermining No No -Wound/Ulcer Outcome Not Healed Not Healed -Ulcer Cleansing Rinsed/ Wound Cleanser Irrigated with Saline -Foul Odor after Cleansing No No -Bioengineered Tissue No No -Bleeding Controlled with Pressure Pressure -Treatment Response Procedure Procedure Tolerated Well Tolerated Well -Offloading No No -Debridement - Subq, 1st 20sq cm -Debridement - Muscle / Fascia, 1st Yes Yes 20sq cm Pain Scale: 0-10 Numeric Is Patient Pain Free? Yes Yes WC - Nurse 3 - General Ulcer D/C NN Start: 03/10/23 10:35 Freq: Status: Active Protocol: Activity Type Activity Date Activity User E-sign Co-sign Detail Recorded Client Recorded Date Recorded By Document 03/10/23 11:16 [facility] [id number] 03/10/23 11:17 [facility] Document 03/15/23 15:11 [id number] 03/15/23 15:13 DL Document 03/24/23 11:55 DL [id number] 03/24/23 11:56 DL Document 03/29/23 11:38 DL [id number] 03/29/23 11:42 DL 03/10/23 03/15/23 03/24/23 11:16 15:11 11:55 Wound Care Center Nurse 3 #6 L lateral Le -Ulcer Cleansing Rinsed/ Rinsed/ Rinsed/ Irrigated with Irrigated with Irrigated with Saline Saline Saline -Foul Odor after Cleansing No No No -Primary Dressing Applied Aquacel AG 4x4, Aquacel AG 4x4, Aquacel AG 4x4, Mepilex Border Mepilex Border Mepilex Border -Aquacel AG 4x4 1 1 1 -Mepilex Border 0 1 1 #5 L medial LE -Ulcer Cleansing Rinsed/ Rinsed/ Rinsed/ Irrigated with Irrigated with Irrigated with Saline Saline Saline -Foul Odor after Cleansing No No No -Primary Dressing Applied Aquacel AG 4x4, Mepilex Border Mepilex Border Mepilex Border -Other Dressing aquacel Ag aquacel ag -Aquacel AG 4x4 0 -Mepilex Border 1 1 1 Left -Compression Wrap Jonas Wrap -Tubular Bandage Single Layer Single Layer Single Layer -Size of Tubigrip Used Size E Size E Size E -Size E ($) 1 1 1 Treatment Response Procedure Procedure Procedure Tolerated Well Tolerated Well Tolerated Well Pain Scale: 0-10 Numeric Is Patient Pain Free? Yes Yes Yes WC - Visit Discharge Discharge Condition Stable Stable Stable Ambulatory Status Ambulatory Ambulatory Ambulatory Transportation Private Auto Private Auto Private Auto Accompanied by [facility] Facility Type Home Health Orders Sent Yes 03/29/23 11:38 Wound Care Center Nurse 3 #6 L lateral Le -Ulcer Cleansing Rinsed/ Irrigated with Saline -Foul Odor after Cleansing No -Primary Dressing Applied Aquacel AG 4x4, Mepilex Border -Aquacel AG 4x4 1 -Mepilex Border 1 #5 L medial LE -Ulcer Cleansing Rinsed/ Irrigated with Saline -Foul Odor after Cleansing No -Primary Dressing Applied Aquacel AG 4x4, Mepilex Border -Other Dressing -Aquacel AG 4x4 1 -Mepilex Border 1 Left -Compression Wrap -Tubular Bandage -Size of Tubigrip Used -Size E ($) Treatment Response Procedure Tolerated Well Pain Scale: 0-10 Numeric Is Patient Pain Free? Yes WC - Visit Discharge Discharge Condition Stable Ambulatory Status Ambulatory Transportation Private Auto Accompanied by Facility Type Orders Sent Additional Wound Wound debrided: #6 left lateral leg Laterality: Left Wound Grade/Stage: 2 Type of Debridement: Excisional debridement Anesthesia Used: 5% Lidocaine Gel Depth: Down to and including healthy tissue and in the subcutaneous layer Percentage of wound debrided: 100 Instrument Used: 3mm curette Tissue Removed: subcutaneous tissue. Severity: Fat Layer Exposed Amount of bleeding with debridement: Mild Bleeding Controlled with: Pressure and Compression and gauze Patient tolerated procedure: Patient tolerated procedure well Assessment/Plan Assessment/Plan (1) Ulcer of left lower extremity with muscle involvement without evidence of necrosis: CODE(S): L97.925 - Non-pressure chronic ulcer of unspecified part of left lower leg with muscle involvement without evidence of necrosis (2) Ulcer of left lower extremity with fat layer exposed: CODE(S): L97.922 - Non-pressure chronic ulcer of unspecified part of left lower leg with fat layer exposed (3) MRSA (methicillin resistant Staphylococcus aureus) infection: CODE(S): A49.02 - Methicillin resistant Staphylococcus aureus infection, unspecified site (4) History of incision and drainage: CODE(S): Z98.890 - Other specified postprocedural states (5) History of necrotizing fasciitis: CODE(S): Z87.39 - Personal history of other diseases of the musculoskeletal system and connective tissue (6) Borderline personality disorder: CODE(S): F60.3 - Borderline personality disorder PLAN: Plan Patient was evaluated at the wound healing center. Wound care - Place Aquacel-Ag to both the medial and lateral left leg ulcer and cover with ABD or [place] SAP dressing daily. Instructed her to make sure to pack the silver into the tunnel of the medial leg. Compression - Single tubi-hot tamale worker with JONAS wrap on left leg for compression. Continue Doxycycline and Diflucan for recent MRSA culture from her most recent hospitalization at [facility] in February. Her PCP is prescribing her antibiotics. Wound Culture obtained 12/29/22 positive for Enterococcus faecalis, Corynebacterium amycolatum, and Staphylococcus epidermidis. Treated with Augmentin and Doxycycline. Wound culture obtained 01/28/23 which was positive for Enterococcus faecalis and Corynebacterium striatum. She completed Augmentin. A wound culture was obtained today of the left medial ulcer and unroofed the scabbing and blister of a couple of the newer wounds.? I spoke with Dr. Alfonso about my concerns with her new blistered/scabbing areas that is proximal to her current ulcer where she previously had the crepitus. I will send her to the ED. Had a discussion with Josiane and her mother about which hospital to go to since she was previously seen at [facility]. They said they will go to [place] ED and hopefully she won't be transferred out. I phoned and spoke with one of the physicians in the ED about her coming over and she is currently on Doxycycline and Diflucan and I have concerns that she may need IV antibiotics. She will follow up in one week. From Dr. Alfonso's note Anticipate increased metabolic demands from the wounds. Will check a Prealbumin and encourage nutritional supplementation with protein. Patient's mother states they have been treating these ulcers for 4 months. Ulcers on lower extremities can take 6-12 months to heal. The ulcer on the left medial leg would have a better chance to heal if the tunneling area was opened up. Wound care with the VAC can be done under direct vision. AFter stabilization of the ulcer after surgery, can then proceed with delayed closure with skin grafting. Advanced skin substitute grafts can also be placed here at the W[facility] Center. After approval, the grafts are placed up to 10 applications over 12 weeks. Patient was informed of the risks and complications of the procedure including alternatives to surgery. These were discussed with the patient personally. Patient voices understanding and wishes to proceed. Surgery will be done under general anesthesia with a surgical observation overnight stay in the hospital.
== END 2023-04-08 23:59 | disposition home or self-care (01) ==
LOC: WC 10:45
PROVIDERS: PCP Student in an Organized Health Care Education/Training Program; Referring Provider Student in an Organized Health Care Education/Training Program; Visit Provider Nurse Practitioner Family
DX: L97.822 Non-pressure chronic ulcer of other part of left lower leg with fat layer exposed (principal); J45.909 Unspecified asthma, uncomplicated; Z86.14 Personal history of Methicillin resistant Staphylococcus aureus infection; Z79.899 Other long term (current) drug therapy
CPT/HCPCS: 11042; 11043; 87070; 87075; 87205; 87077; 87186

== ENCOUNTER 2023-04-05 11:37 | Inpatient (IN) | payer MEDICAID, SELFPAY ==
[2023-04-05 11:38] VITALS: BP 143/103; PULSE 121; RESP 18; TEMP 36.6; O2SAT 94; BMI 52.9
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
[2023-04-05 12:49] LABS: Absolute Neutrophil Count 5.3 X10^3/uL (2.0-7.7); Basophil# 0.04 X10^3/uL; Basophil% 0.5 % (0-1); Eosinophil# 0.24 X10^3/uL; Eosinophils% 2.8 % (0-5); Hematocrit 46.2 % (37-47); Hemoglobin 15.2 g/dL (12.0-15.0); Lymphocyte % 24.8 % (19-41); Mean Corp Hgb Conc 32.9 g/dL (32-36); Mean Corpuscular Hgb 27.7 pg (27.0-32.0); Mean Corpuscular Volume 84.3 fL (81-99); Mean Platelet Vol. 10.4 fl (6.2-12.0); Monocyte# 0.79 X10^3/uL; Monocyte% 9.3 % (0-10); NRBC Flagged by Analyzer 0 % (0-5); Neutrophil # 5.28 X10^3/uL (2.7-7.7); Neutrophil % 62.4 % (47-70); POSITIVE COUNT YES; RBC Distribution Width CV 13.4 % (11.6-14.6); RBC Distribution Width SD 41.1 fl (35.1-43.9); Red Blood Count 5.48 M/mm3 (4.2-5.4); White Blood Count 8.5 K/mm3 (4.4-11.0)
[2023-04-05 13:02] LABS: Internal QC Validated? YES +Cl - CLEAR BKGD; Pregnancy, Serum, hCG Quali. NEGATIVE Negative
[2023-04-05 13:11] LABS: Differential Indicated SCAN CRITERIA MET
[2023-04-05 13:12] LABS: Platelet Estimate ADEQUATE (ADEQ)
[2023-04-05 13:13] LABS: AST(SGOT) 32 U/L (15-37); Alanine Aminotransfer ALT/SGPT 54 U/L (13-56); Albumin, Serum 3.1 g/dL (3.2-5.0); Alkaline Phosphatase 91 U/L (45-117); Anion Gap 5 (5-15); BUN 15 mg/dL (7-18); BUN/Creat Ratio 17.3 RATIO (10-20); Bilirubin, Direct 0.11 mg/dL (0.00-0.30); Calcium,Total 8.9 mg/dL (8.5-10.1); Chloride 111 mmol/L (98-107); Creatinine, Serum 0.87 mg/dL (0.55-1.02); EST Glomerular Filtration Rate 86 mL/min (>60); Est Glom Filt Rate - Afr Amer 104 mL/min (>60); Globulin 4.2 g/dL (2.2-4.2); Glucose 112 mg/dL (74-106); Lactic Acid 1.3 mmol/L (0.4-1.9); Potassium 4.1 mmol/L (3.5-5.1); Protein, Total 7.3 g/dL (6.4-8.2); Sodium Level 134 mmol/L (136-145)
[2023-04-05] MEDS: Ondansetron ODT 4 MG Tablet PO (14:03)
[2023-04-05] MEDS: Acetaminophen 500 MG Tablet 1000 MG PO (14:03)
[2023-04-05 16:46] VITALS: BP 122/79; PULSE 84; RESP 18; TEMP 36.7; O2SAT 97
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
[2023-04-05 17:33] VITALS: BMI 52.9
[2023-04-05] MEDS: Ondansetron 4 MG/2 ML Vial IV (18:01)
[2023-04-05] MEDS: oxyCODONE 5 MG Tablet PO (20:32)
[2023-04-05] MEDS: Pramipexole Di-HCl 0.125 MG Tablet 0.375 MG PO (20:32)
[2023-04-05] MEDS: Pantoprazole Sodium 40 MG Tablet PO (21:24)
[2023-04-05] MEDS: Propranolol 10 MG Tablet PO (21:24)
[2023-04-05] MEDS: Famotidine 20 MG Tablet 40 MG PO (21:24)
[2023-04-05] MEDS: Doxazosin 1 MG Tablet PO (21:24)
[2023-04-05] MEDS: Fluconazole 100 MG Tablet 200 MG PO (21:24)
[2023-04-05] MEDS: busPIRone 15 MG TABLET 30 MG PO (21:24)
[2023-04-05 22:00] VITALS: BP 133/91; PULSE 90; RESP 18; TEMP 36.9; O2SAT 94
--- NOTE | 2023-04-06 00:07 | PCM.RX.CS ---
Consult Antibiotic Management Pharmacy has been consulted to manage selected antiobiotic: Vancomycin Type of Intervention Type of Consult: New start Labs Labs: Sodium 134 mmol/L (136-145) L 04/05/23 12:34 Potassium 4.1 mmol/L (3.5-5.1) 04/05/23 12:34 Chloride 111 mmol/L (98-107) H 04/05/23 12:34 Carbon Dioxide 18.0 mmol/L (21.0-32.0) L 04/05/23 12:34 Anion Gap 5 (5-15) 04/05/23 12:34 BUN 15 mg/dL (7-18) 04/05/23 12:34 Creatinine 0.87 mg/dL (0.55-1.02) 04/05/23 12:34 Est GFR (MDRD) Af Amer 104 mL/min (>60) 04/05/23 12:34 Est GFR (MDRD) Non-Af 86 mL/min (>60) 04/05/23 12:34 BUN/Creatinine Ratio 17.3 RATIO (10-20) 04/05/23 12:34 Glucose 112 mg/dL (74-106) H 04/05/23 12:34 Goal Trough Goal Trough: 15-20 mcg/mL Pharmacy Plan for Drug Dosing Pharmacy Plan for Drug Dosing: Pharmacy Service will continue to monitor and adjust dosing as required. Follow-Up Labs Follow-Up Labs: Trough: Vancomycin Date/Time Labs Ordered Labs to be done on [date and time ordered]: 04/06 @ 3613
[2023-04-06 04:10] VITALS: BP 134/89; PULSE 88; RESP 16; TEMP 36.7; O2SAT 95
[2023-04-06 05:45] LABS: Absolute Lymphocyte Count 2.14 X10^3/uL (0.83-4.51); Absolute Neutrophil Count 3.5 X10^3/uL (2.0-7.7); Basophil# 0.03 X10^3/uL; Basophil% 0.5 % (0-1); Eosinophil# 0.21 X10^3/uL; Eosinophils% 3.2 % (0-5); Hematocrit 41.4 % (37-47); Hemoglobin 13.5 g/dL (12.0-15.0); Lymphocyte # 2.14 X10^3/ul (0.83-4.51); Mean Corp Hgb Conc 32.6 g/dL (32-36); Mean Corpuscular Volume 85.9 fL (81-99); Mean Platelet Vol. 9.6 fl (6.2-12.0); Monocyte# 0.62 X10^3/uL; Monocyte% 9.6 % (0-10); NRBC Flagged by Analyzer 0 % (0-5); Neutrophil # 3.46 X10^3/uL (2.7-7.7); Neutrophil % 53.4 % (47-70); Platelet Count 192 K/mm3 (150-450); RBC Distribution Width CV 13.4 % (11.6-14.6); RBC Distribution Width SD 41.9 fl (35.1-43.9); Red Blood Count 4.82 M/mm3 (4.2-5.4); White Blood Count 6.5 K/mm3 (4.4-11.0)
[2023-04-06 06:47] LABS: Anion Gap 3 (5-15); BUN 16 mg/dL (7-18); BUN/Creat Ratio 18.1 RATIO (10-20); Calcium,Total 8.5 mg/dL (8.5-10.1); Chloride 109 mmol/L (98-107); Creatinine, Serum 0.88 mg/dL (0.55-1.02); EST Glomerular Filtration Rate 84 mL/min (>60); Est Glom Filt Rate - Afr Amer 102 mL/min (>60); Estimated Creatinine Clearance 82.95 ml/min; Glucose 107 mg/dL (74-106); Potassium 3.8 mmol/L (3.5-5.1); Sodium Level 139 mmol/L (136-145)
[2023-04-06 08:45] VITALS: BP 113/86; PULSE 104; RESP 14; TEMP 36.9; O2SAT 100
--- NOTE | 2023-04-06 08:46 | PCM.PN.HOSP ---
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 involvement without evidence of necrosis (04/05/23) Subjective Subjective Patient reports feeling achy all over, also reports her left lower extremity feels somewhat more painful and swollen than yesterday Objective Data Objective Data Vital Signs: Vital Signs Temp Pulse Resp BP Pulse Ox O2 Del Method 98.0 F 88 16 134/89 H 95 Room Air 04/06/23 04:10 04/06/23 04:10 04/06/23 04:10 04/06/23 04:10 04/06/23 04:10 04/06/23 04:10 Oxygen Delivery Method Room Air Weight: 135.624 kg Body Mass Index (BMI) 52.9 Intake & Output: Intake and Output for Last 24 Hours 04/04/23 04/05/23 04/06/23 23:59 23:59 23:59 Intake Total 540 / 540 890 / 890 Balance 540 / 540 890 / 890 Lab / Micro Data 04/06/23 05:37 04/06/23 05:37 Labs: Laboratory Results - last 24 hr 04/05/23 12:34: WBC 8.5, RBC 5.48 H, Hgb 15.2 H, Hct 46.2, MCV 84.3, MCH 27.7, MCHC 32.9, RDW Std Deviation 41.1, RDW Coeff of Anastacio 13.4, Plt Count , MPV 10.4, Immature Gran % (Auto) 0.200, Neut % (Auto) 62.4, Lymph % (Auto) 24.8, Richardson % (Auto) 9.3, Eos % (Auto) 2.8, Baso % (Auto) 0.5, Absolute Neuts (auto) 5.3, Absolute Lymphs (auto) 2.10, Nucleated RBC % 0, Platelet Estimate ADEQUATE, Sodium 134 L, Potassium 4.1, Chloride 111 H, Carbon Dioxide 18.0 L, Anion Gap 5, BUN 15, Creatinine 0.87, Estim Creat Clear Calc 83.90, Est GFR (MDRD) Af Amer 104, Est GFR (MDRD) Non-Af 86, BUN/Creatinine Ratio 17.3, Glucose 112 H, Lactic Acid 1.3, Calcium 8.9, Total Bilirubin 0.40, Direct Bilirubin 0.11, AST 32, ALT 54, Alkaline Phosphatase 91, Total Protein 7.3, Albumin 3.1 L, Globulin 4.2, Serum , Qual NEGATIVE 04/06/23 05:37: WBC 6.5, RBC 4.82, Hgb 13.5, Hct 41.4, MCV 85.9, MCH 28.0, MCHC 32.6, RDW Std Deviation 41.9, RDW Coeff of Anastacio 13.4, Plt Count 192, MPV 9.6, Immature Gran % (Auto) 0.300, Neut % (Auto) 53.4, Lymph % (Auto) 33.0, Richardson % (Auto) 9.6, Eos % (Auto) 3.2, Baso % (Auto) 0.5, Absolute Neuts (auto) 3.5, Absolute Lymphs (auto) 2.14, Nucleated RBC % 0, Sodium 139, Potassium 3.8, Chloride 109 H, Carbon Dioxide 27.0, Anion Gap 3 L, BUN 16, Creatinine 0.88, Estim Creat Clear Calc 82.95, Est GFR (MDRD) Af Amer 102, Est GFR (MDRD) Non-Af 84, BUN/Creatinine Ratio 18.1, Glucose 107 H, Calcium 8.5 Physical Exam Narrative General: Alert, oriented, no apparent distress HEENT: Atraumatic, normocephalic Eyes: Anicteric, normal conjunctiva, extraocular movements grossly intact Neck: Supple Respiratory: Clear to auscultation bilaterally, normal respiratory effort Cardiovascular: Regular rate and rhythm GI: Soft, nontender, nondistended Extremities: Left lower extremity with multiple lesions Musculoskeletal: Moving all extremities Neuro: No overt focal neurological deficits Skin: Left tib-fib wrapped, does have multiple ovoid lesions above that without any active drainage, is more tender on the medial upper edge Psych: Cooperative Assessment & Plan Assessment/Plan (1) Ulcer of left lower extremity with muscle involvement without evidence of necrosis: PLAN: Plan 1. Left lower extremity ulceration with infection ? We will continue with vancomycin and Diflucan and consult infectious disease ? We will consult plastic surgery as they recommended her to come in to the hospital, to evaluate for possible surgery ? We will consult wound care ? Apparently wound cultures were repeated at the wound care center ? There is always been a concern for self and harm and that her infections are ultimately self mediated from her psychiatric illness -04/06: Consults pending, cultures pending, continue vancomycin. Given worsened pain and swelling we will get CT lower extremity and check ESR, CRP, lactic acid 2. ADHD with depression/borderline personality disorder and conversion disorder/pseudoseizure ? Mood appears to be stable at this time ? We will continue with all of her home medications ? Can encourage continued outpatient psychiatric evaluation and monitoring -04/06: Continue present medications 3. GERD ? Stable ? Continue with her home medications -04/06: Continue PPI twice daily 4. Asthma ? Stable ? Continue with albuterol as needed DVT: Lovenox Time spent in the patient's overall evaluation,decision-making process, review of diagnostic data, adjustment of management, discussion with other providers, nursing nursing and ancillary staff involved in patient's care documentation, 36 minutes Charges/Coding Visit Charges Inpatient E&M: 72306 Subs Hosp L2
[2023-04-06] MEDS: 0.9% Saline Lock 10 ML Syringe IV ×2 (08:50→23:58)
[2023-04-06] MEDS: busPIRone 15 MG TABLET 30 MG PO ×2 (08:51→21:38)
[2023-04-06] MEDS: Ferrous Sulfate 325 MG Tablet PO (08:51)
[2023-04-06] MEDS: Pramipexole Di-HCl 0.125 MG Tablet 0.25 MG PO (08:52)
[2023-04-06] MEDS: Fluconazole 100 MG Tablet 200 MG PO ×2 (08:52→21:38)
[2023-04-06] MEDS: dilTIAZem CD 240 MG Capsule PO (08:52)
[2023-04-06] MEDS: Famotidine 20 MG Tablet 40 MG PO ×2 (08:53→21:42)
[2023-04-06] MEDS: Propranolol 10 MG Tablet PO ×2 (08:53→21:42)
[2023-04-06] MEDS: Pantoprazole Sodium 40 MG Tablet PO ×2 (08:53→21:43)
[2023-04-06] MEDS: Enoxaparin 40 MG/0.4 ML Syringe SC (08:53)
[2023-04-06] MEDS: lamoTRIgine 150 MG Tablet PO (08:53)
[2023-04-06] MEDS: oxyCODONE 5 MG Tablet PO ×2 (09:08→21:48)
--- NOTE | 2023-04-06 09:36 | CT_ITS ---
We are attempting to reach an attending provider to discuss findings. An addendum with communication details will be sent when the communication is complete. STUDY: CT - LEFT TIBIA AND FIBULA REASON FOR EXAM: Female, 22 years old. worsening leg pain and infection LT LOWER LEG INFECTION, HX-NECROTIZING FASCITIS, BORDERLINE PERSONALITY DISORDER RADIATION DOSAGE (If Supplied By Facility): CTDIvol = ( 15.35 ) mGy, DLP = ( 833.48 ) mGycm TECHNIQUE: Transaxial CT imaging of the lower extremity was performed without. Sagittal and coronal images were reconstructed. Individualized dose optimization techniques were used for this CT. COMPARISON: X-ray of the femur dated February 15, 2019. X-ray of the left knee dated April 09, 2017 FINDINGS: A significant amount of subcutaneous air is present on the medial side of the proximal one third calf/tibia with significant swelling but no discrete fluid collections. A small amount of air is seen dissecting the investing intramuscular fascia at the level of the popliteus but this appears to have originated from the subcutaneous fat. A single focus of air is also deep to the investing fascia of the medial gastrocnemius and an adjacent vessel as seen on image 23/202 series 2. Small amounts of intramuscular/subfascial air is also present at the junction of the soleus and gastrocnemius muscles as seen on image 81/201 series 2. The findings are consistent with either direct air injection to this region or gas gangrene or the early developing stages of necrotizing fasciitis. The skin is thickened and edematous on the medial side and middle one third aspect of the calf. The muscles have a normal morphology and are not edematous or swollen. There is also normal enhancement of the vascular structures and muscles without evidence of necrosis or myositis. A small amount of layering fluid is present in the deep subcutaneous fat overlying the anterior and medial side of the tibia. No focal abscess pocket is visualized. Normal visualized tibia. Normal visualized fibula. There is no evidence of osteomyelitis. No lytic or blastic lesions are seen. Normal visualized distal tibia and fibula. Normal medial and lateral malleoli. Normal tibiotalar articulation and ankle mortise. Normal visualized talus and calcaneus. The visualized subtalar, talonavicular, calcaneocuboid and tarsal articulations are normal. CT/Extremity Lower WITH Contrast IMPRESSION: 1. A significant amount of subcutaneous air is present on the medial side of the proximal one third calf/tibia with significant swelling but no discrete fluid collections. A small amount of air is seen dissecting the investing intramuscular fascia at the level of the popliteus but this appears to have originated from the subcutaneous fat. A single focus of air is also deep to the investing fascia of the medial gastrocnemius and an adjacent vessel as seen on image 23/202 series 2. Small amounts of intramuscular/subfascial air is also present at the junction of the soleus and gastrocnemius muscles as seen on image 81/201 series 2. The findings are consistent with either direct air injection to this region or gas gangrene or the early developing stages of necrotizing fasciitis. Referral and evaluation to orthopedics/plastic surgery is recommended. 2. The skin is thickened and edematous on the medial side and middle one third aspect of the calf. The muscles have a normal morphology and are not edematous or swollen. There is also normal enhancement of the vascular structures and muscles without evidence of necrosis or myositis. Electronically Signed: Chapito Neal MD at 11:43 EDT ,
[2023-04-06 10:15] LABS: Erythrocyte Sedimentation Rate 5 mm/hr (0-30)
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
[2023-04-06 11:05] LABS: Lactic Acid 1.4 mmol/L (0.4-1.9)
[2023-04-06] MEDS: 0.9% Normal Saline 1,000 ML 100 ML IV (11:33)
[2023-04-06] MEDS: Morphine 4 MG/ML Syringe IV ×3 (13:46→23:58)
--- NOTE | 2023-04-06 14:33 | WOUNDNOTE ---
wound photo: left lower leg
[2023-04-06 14:35] VITALS: BP 115/80; PULSE 95; RESP 16; TEMP 36.9; O2SAT 95
--- NOTE | 2023-04-06 16:15 | CASEMGMT ---
RAUDEL MELO Assessment: Face to Face with pt for initial transition planning/care coordination assessment. RN CM introduced self and role at [facility], pt voices understanding and consents assessment. Pt is AxOx4. Care providers, pharmacy, and demographics verified/updated. Admitting Dx: cellulitis PCP:Lynn Specialists: Hilary Saleh weekly at [facility] Preferred Pharmacy: [facility] Insurance: [employer] Prescription Benefit: yes LNOK: Jamin Wilson, mother; Sarthak Wilson, father Living Arrangements: Pt lives with parents and brother in a single story home with a ramp to enter. Pt reports she is I in ADL's and denies concerns at home. Transportation: Pt drives self and denies concerns with transportation. DME/HHC/SNF: Pt has a w/c and walker at home but does not use. Pt has had [facility] in the past. Pt has been to [facility] in the past as well when she needed IV antibiotics and wound care. Pt states no concerns with going home at time of dc. She states her mother is a nurse and performs daily dressing changes with aquacel silver. Pt is to have a debridement tomorrow. Pt states no further concerns/needs. CM to follow. Advised pt to ask CM if any further question/concerns/needs arise, voices understanding. Pt Goal: Home Plan: Home, follow for change in wound care orders, any IV atb needs.
--- NOTE | 2023-04-06 17:41 | NURSING ---
04/06/23@1715- REPORT CALLED TO RAUDEL MCKENZIE. @0805- PT ARRIVED IN STABLE CONDITION TO [id number].
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
[2023-04-06 21:26] VITALS: BP 104/66; PULSE 94; RESP 16; TEMP 37.1; O2SAT 95
[2023-04-06] MEDS: Pramipexole Di-HCl 0.125 MG Tablet 0.375 MG PO (21:38)
[2023-04-06] MEDS: Doxazosin 1 MG Tablet PO (21:38)
[2023-04-06] MEDS: traZODone 100 MG Tablet 150 MG PO (22:33)
[2023-04-06] MEDS: MELATONIN 10 MG TABLET 20 MG PO (22:33)
[2023-04-06] MEDS: Docusate Sodium 100 MG Capsule PO (22:34)
[2023-04-06] MEDS: hydrOXYzine PAM 25 MG Capsule 50 MG PO (22:34)
[2023-04-06 23:57] LABS: Vancomycin, Trough Level 35.9 ug/mL (5.0-15.0)
[2023-04-07] VITALS (14 sets, daily range): BP systolic 93–124; BP diastolic 44–79; PULSE 75–89; RESP 14–18; TEMP 36.1–37; O2SAT 68–97; BMI 52.9
--- NOTE | 2023-04-07 | UL_PTH ---
PATIENT: SAMEER MOORE LOC: MS3 U#:[id number] AGE/SX: 22/F ROOM: [facility] RE04/05/[address]: Dr. Ángel Vergara DO : 2000 BED: 1 DIS: 04/16/2023 SPEC #: [id number] RECD: 04/07/23 17:25 STATUS: MIRIAM REQ #: [id number] GATITO: 04/07/23 00:[address]: Robert Alfonso DEPT: SURGICAL PATHOLOGY RECD BY: Roberto Patel ENTERED: 04/08/23 09:32 SP TYPE: ULCER OTHR DR: MD Dr. Андрей Del Real DO Dr. Nicholas F Kotsonis, MD Dr. Paige Pierce, MD Dr. Robert Leininger, MD Tissues: A - Leg, NOS B - Leg, NOS Procedures: Surgery Specimen Level IV Comments: @ Ordering doctor for SUIII edited from to @ by SALONI at 04/08/23 1443 @ Submitting doctor edited from to @ by RGOOD at 04/08/23 1443 HEADER OPERATION: Left leg infected MRSA PRE-OP DIAGNOSIS: Left lower extremity ulcer with infection TISSUE SUBMITTED: A - Left lower leg soft tissue, B - Inflamed fascia MICROSCOPIC DIAGNOSIS A. Skin and soft tissue of left lower leg, excision: Ulceration with associated acute and chronic inflammation and granulation. B. Inflamed fascia, excision: Ulceration with associated acute and chronic inflammation and granulation. AM:tran 04/09/2023 MICROSCOPIC DESCRIPTION Slides are reviewed. GROSS DESCRIPTION A - Received in fixative is one container labeled with the patient's name and designated left lower leg soft tissue. The specimen consists of two pieces of parks-white skin with underlying tissue measuring 7.5 x 6.0 x 3.5 cm and 6.0 x 3.0 x 2.0 cm. Multiple areas of ulceration are noted in both pieces. Telecommunications Engineer sections are submitted in four cassettes. B - Received in fixative is one container labeled with the patient's name and designated inflamed fascia. The specimen consists of an irregular piece of parks, indurated tissue measuring 3.0 x 1.0 x 0.6 cm. The entire specimen is submitted in one cassette. / BECKY:tran 04/08/2023 TC:2 CPT: 48612 x2
[2023-04-07] MEDS: 0.9% Normal Saline 1,000 ML 100 ML IV ×4 (00:05→22:38)
[2023-04-07 00:38] LABS: Internal QC Validated? YES +Cl - CLEAR BKGD; Pregnancy, Urine Negative Negative
--- NOTE | 2023-04-07 02:46 | PCM.RX.CS ---
Consult Antibiotic Management Pharmacy has been consulted to manage selected antiobiotic: Vancomycin Type of Intervention Type of Consult: Follow-up Labs Labs: Sodium 139 mmol/L (136-145) 04/06/23 05:37 Potassium 3.8 mmol/L (3.5-5.1) 04/06/23 05:37 Chloride 109 mmol/L (98-107) H 04/06/23 05:37 Carbon Dioxide 27.0 mmol/L (21.0-32.0) 04/06/23 05:37 Anion Gap 3 (5-15) L 04/06/23 05:37 BUN 16 mg/dL (7-18) 04/06/23 05:37 Creatinine 0.88 mg/dL (0.55-1.02) 04/06/23 05:37 Est GFR (MDRD) Af Amer 102 mL/min (>60) 04/06/23 05:37 Est GFR (MDRD) Non-Af 84 mL/min (>60) 04/06/23 05:37 BUN/Creatinine Ratio 18.1 RATIO (10-20) 04/06/23 05:37 Glucose 107 mg/dL (74-106) H 04/06/23 05:37 Vancomycin Trough 35.9 ug/mL (5.0-15.0) H 04/06/23 23:30 Pharmacy Plan for Drug Dosing Pharmacy Plan for Drug Dosing: Pharmacy Service will continue to monitor and adjust dosing as required. TROUGH 35.9 @ 6.5 HOURS. CURRENT DOSE ALREADY GIVEN, HOLD NEXT DOSE AND DRAW RANDOM LEVEL @ 1600 Follow-Up Labs Follow-Up Labs: Trough: Vancomycin Date/Time Labs Ordered Labs to be done on [date and time ordered]: 04/07 @ 1600
[2023-04-07] MEDS: 0.9% Saline Lock 10 ML Syringe IV ×3 (05:04→22:29)
[2023-04-07] MEDS: Morphine 2 MG/ML Syringe IV ×2 (05:04→18:42)
[2023-04-07 06:48] LABS: Absolute Lymphocyte Count 2.24 X10^3/uL (0.83-4.51); Absolute Neutrophil Count 2.2 X10^3/uL (2.0-7.7); Basophil# 0.03 X10^3/uL; Basophil% 0.6 % (0-1); Eosinophil# 0.16 X10^3/uL; Hematocrit 39.5 % (37-47); Hemoglobin 12.9 g/dL (12.0-15.0); Lymphocyte # 2.24 X10^3/ul (0.83-4.51); Lymphocyte % 41.7 % (19-41); Mean Corp Hgb Conc 32.7 g/dL (32-36); Mean Corpuscular Hgb 28.1 pg (27.0-32.0); Mean Corpuscular Volume 86.1 fL (81-99); Monocyte# 0.68 X10^3/uL; Monocyte% 12.7 % (0-10); NRBC Flagged by Analyzer 0 % (0-5); Neutrophil # 2.24 X10^3/uL (2.7-7.7); Neutrophil % 41.6 % (47-70); Platelet Count 177 K/mm3 (150-450); RBC Distribution Width CV 13.6 % (11.6-14.6); RBC Distribution Width SD 41.8 fl (35.1-43.9); Red Blood Count 4.59 M/mm3 (4.2-5.4); White Blood Count 5.4 K/mm3 (4.4-11.0)
[2023-04-07 07:20] LABS: Anion Gap 7 (5-15); BUN 12 mg/dL (7-18); BUN/Creat Ratio 16.1 RATIO (10-20); Calcium,Total 8.3 mg/dL (8.5-10.1); Chloride 111 mmol/L (98-107); Creatinine, Serum 0.74 mg/dL (0.55-1.02); EST Glomerular Filtration Rate 103 mL/min (>60); Est Glom Filt Rate - Afr Amer 125 mL/min (>60); Estimated Creatinine Clearance 98.64 ml/min; Glucose 98 mg/dL (74-106); Potassium 3.8 mmol/L (3.5-5.1); Sodium Level 138 mmol/L (136-145)
--- NOTE | 2023-04-07 08:21 | PCM.PN.HOSP ---
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 without evidence of necrosis (04/05/23) Personal history of other diseases of the musculoskeletal system and connective tissue (04/05/23) Subjective Subjective Patient feeling roughly the same, does report her left leg feels a little itchy today Objective Data Objective Data Vital Signs: Vital Signs Temp Pulse Resp BP Pulse Ox O2 Del Method 98.1 F 80 18 104/58 L 95 Room Air 04/07/23 04:00 04/07/23 04:00 04/07/23 04:00 04/07/23 04:00 04/07/23 04:00 04/07/23 04:00 Oxygen Delivery Method Room Air Weight: 135.624 kg Body Mass Index (BMI) 52.9 Intake & Output: Intake and Output for Last 24 Hours 04/05/23 04/06/23 04/07/23 23:59 23:59 23:59 Intake Total 540 / 540 3750.25 / 4050.25 1081.42 / 1081.42 Balance 540 / 540 3750.25 / 4050.25 1081.42 / 1081.42 Lab / Micro Data 04/07/23 06:40 04/07/23 06:40 Labs: Laboratory Results - last 24 hr 04/06/23 05:37: ESR 5, C-React Prot Ext Range 23.10 H 04/06/23 10:27: Lactic Acid 1.4 04/06/23 23:30: Vancomycin Trough 35.9 H 04/06/23 23:45: Urine Test Negative 04/07/23 06:40: WBC 5.4, RBC 4.59, Hgb 12.9, Hct 39.5, MCV 86.1, MCH 28.1, MCHC 32.7, RDW Std Deviation 41.8, RDW Coeff of Anastacio 13.6, Plt Count 177, MPV 10.0, Immature Gran % (Auto) 0.400, Neut % (Auto) 41.6 L, Lymph % (Auto) 41.7 H, Mccracken % (Auto) 12.7 H, Eos % (Auto) 3.0, Baso % (Auto) 0.6, Absolute Neuts (auto) 2.2, Absolute Lymphs (auto) 2.24, Nucleated RBC % 0, Sodium 138, Potassium 3.8, Chloride 111 H, Carbon Dioxide 20.0 L, Anion Gap 7, BUN 12, Creatinine 0.74, Estim Creat Clear Calc 98.64, Est GFR (MDRD) Af Amer 125, Est GFR (MDRD) Non-Af 103, BUN/Creatinine Ratio 16.1, Glucose 98, Calcium 8.3 L Radiography Diagnostic Testing: Radiology Impression Lower Extremity CT 04/06/23 09:36 IMPRESSION: 1. A significant amount of subcutaneous air is present on the medial side of the proximal one third calf/tibia with significant swelling but no discrete fluid collections. A small amount of air is seen dissecting the investing intramuscular fascia at the level of the popliteus but this appears to have originated from the subcutaneous fat. A single focus of air is also deep to the investing fascia of the medial gastrocnemius and an adjacent vessel as seen on image / series 2. Small amounts of intramuscular/subfascial air is also present at the junction of the soleus and gastrocnemius muscles as seen on image 81/201 series 2. The findings are consistent with either direct air injection to this region or gas gangrene or the early developing stages of necrotizing fasciitis. Referral and evaluation to orthopedics/plastic surgery is recommended. 2. The skin is thickened and edematous on the medial side and middle one third aspect of the calf. The muscles have a normal morphology and are not edematous or swollen. There is also normal enhancement of the vascular structures and muscles without evidence of necrosis or myositis. Electronically Signed: Chapito Neal MD at 11:43 EDT Reading Location ID and State: [facility] / [place] , Service support , ADDENDUM: 04/06/23 1200 IMPRESSION: 1. A significant amount of subcutaneous air is present on the medial side of the proximal one third calf/tibia with significant swelling but no discrete fluid collections. A small amount of air is seen dissecting the investing intramuscular fascia at the level of the popliteus but this appears to have originated from the subcutaneous fat. A single focus of air is also deep to the investing fascia of the medial gastrocnemius and an adjacent vessel as seen on image 23/202 series 2. Small amounts of intramuscular/subfascial air is also present at the junction of the soleus and gastrocnemius muscles as seen on image 81/201 series 2. The findings are consistent with either direct air injection to this region or gas gangrene or the early developing stages of necrotizing fasciitis. Referral and evaluation to orthopedics/plastic surgery is recommended. 2. The skin is thickened and edematous on the medial side and middle one third aspect of the calf. The muscles have a normal morphology and are not edematous or swollen. There is also normal enhancement of the vascular structures and muscles without evidence of necrosis or myositis. N.B. : The above Results were Read Back by Chapito Neal MD to Amairani Rausch RN, and understanding confirmed on 04/06/2023 11:53:59 (ET). Electronically Signed: Chapito Neal MD at 11:43 EDT Reading Location ID and State: [address] [place] [address] , Service support , Physical Exam Narrative General: Alert, oriented, no apparent distress HEENT: Atraumatic, normocephalic Eyes: Anicteric, normal conjunctiva, extraocular movements grossly intact Neck: Supple Respiratory: Clear to auscultation bilaterally, normal respiratory effort Cardiovascular: Regular rate and rhythm GI: Soft, nontender, nondistended Extremities: Left leg wrapped Musculoskeletal: Moving all extremities Neuro: No overt focal neurological deficits Skin: Left leg wrapped Psych: Cooperative Assessment & Plan Assessment/Plan (1) Ulcer of left lower extremity with muscle involvement without evidence of necrosis: PLAN: Plan 1. Left lower extremity ulceration with infection ? We will continue with vancomycin and Diflucan and consult infectious disease ? We will consult plastic surgery as they recommended her to come in to the hospital, to evaluate for possible surgery ? We will consult wound care ? Apparently wound cultures were repeated at the wound care center ? There is always been a concern for self and harm and that her infections are ultimately self mediated from her psychiatric illness -04/06: Consults pending, cultures pending, continue vancomycin. Given worsened pain and swelling we will get CT lower extremity and check ESR, CRP, lactic acid -04/07: CRP only mildly elevated at 20 and ESR within normal limits, lactic acid also within normal limits. CT of the lower extremity did show air with broad differential, patient does not appear clinically unstable or clinically ill and do not think patient has gas gangrene or necrotizing fasciitis, ID on board, plastics to take patient for debridement 2. ADHD with depression/borderline personality disorder and conversion disorder/pseudoseizure ? Mood appears to be stable at this time ? We will continue with all of her home medications ? Can encourage continued outpatient psychiatric evaluation and monitoring -04/06: Continue present medications -04/07: We will need to continue to follow psychiatry as an outpatient 3. GERD ? Stable ? Continue with her home medications -04/06: Continue PPI twice daily 4. Asthma ? Stable ? Continue with albuterol as needed DVT: Lovenox Time spent in the patient's overall evaluation,decision-making process, review of diagnostic data, adjustment of management, discussion with other providers, nursing nursing and ancillary staff involved in patient's care documentation, 36 minutes Charges/Coding Visit Charges Inpatient E&M: 42809 Subs Hosp L2
[2023-04-07] MEDS: lamoTRIgine 150 MG Tablet PO (08:55)
[2023-04-07] MEDS: Fluconazole 100 MG Tablet 200 MG PO ×2 (08:55→22:13)
[2023-04-07] MEDS: dilTIAZem CD 240 MG Capsule PO (08:55)
[2023-04-07] MEDS: hydrOXYzine PAM 25 MG Capsule 50 MG PO ×2 (08:55→20:10)
[2023-04-07] MEDS: Pramipexole Di-HCl 0.125 MG Tablet 0.25 MG PO (08:55)
[2023-04-07] MEDS: Propranolol 10 MG Tablet PO ×2 (08:55→22:11)
[2023-04-07] MEDS: busPIRone 15 MG TABLET 30 MG PO ×2 (08:56→22:10)
[2023-04-07] MEDS: Pantoprazole Sodium 40 MG Tablet PO ×2 (08:56→22:14)
[2023-04-07] MEDS: oxyCODONE 5 MG Tablet PO (10:07)
[2023-04-07] MEDS: Lidocaine 1%/Epi 1:200 (30ml) 30 ML AMPUL OPERA.SITE (15:56)
--- NOTE | 2023-04-07 16:32 | OP.PCM_ITS ---
Problems Associated Problem List Diagnoses (1) Ulcer of left lower extremity with muscle involvement without evidence of necrosis: (2) MRSA (methicillin resistant Staphylococcus aureus) infection: (3) History of necrotizing fasciitis: (4) Morbid obesity due to excess calories: (5) Abscess of left leg: Report of Operation Date of Procedure: 04/07/23 Pre-Operative Diagnosis: 1. Nonhealing infected MRSA ulcer left medial leg with muscle involvement without necrosis. 2. MRSA. 3. History of necrotizing fasciitis. 4. Morbid obesity, (BMI 53.0). Post-Operative Diagnosis: 1. Nonhealing infected MRSA ulcer abscess left medial leg with muscle involvement without necrosis. 2. MRSA. 3. History of necrotizing fasciitis. 4. Morbid obesity, (BMI 53.0). Surgery/Procedure Performed:: Surgical preparation left medial leg with incision and drainage and excisional debridement nonhealing infected MRSA ulcer, (126 cm2). Description of Surgical Findings:: SAMEER MOORE, is a 22 F who [facility] for a nonhealing ulcer left medial leg. Superior to the ulcer were new onset blisters, some of which were draining and some of which were crusty. She has a history of multiple skin ulcers that have consistently grown out resistant Staph, MRSA, and Enterococcus. Most recently she was finishing Doxycycline. She also has been at [facility] in the past with necrotizing fasciitis. With the blistering occurring just superior to the nonhealing ulcer left medial leg, there is concern of worsening infection superiorly with possible undrained abscess. I was asked to evaluate this patient for surgical options for treatment. Patient was informed of the risks and complications of the procedure including alternatives to surgery. These were discussed with the patient personally. Patient voices understanding and wishes to proceed. Potential risks and complications included but not inclusive of bleeding, infection, seroma, hematoma, bruising, swelling, loss of sensation to skin, partial or complete loss of skin flap and/or skin graft, wound breakdown, need for wound care, poor scarring, poor aesthetic outcome, intra operative cardiac or neurologic events, DVT, PE, and reaction to anesthesia. Size of wound left medial leg - 9 x 14 x 3 cm. Surgeon: Robert Alfonso MD clinical pharmacy coordinator: None Type of Anesthesia: General Anesthesiologist: Alex Reid MD and Clau Walker CRNA Specimen's removed: 1. Nonhealing infected MRSA ulcer left medial leg to Pathology and Microbiology. 2. Inflamed fascia left medial leg to Pathology and Microbiology. Drains: None. Estimated Blood Loss (mL): 150. Description of Procedure: Patient was taken to OR in supine position and was placed under general anesthesia. The left leg was prepped and draped in the usual fashion. SCD was placed for DVT prophylaxis on the right leg. Perioperative antibiotics were given intravenously. Using xylocaine with epinephrine, the ulcer was infiltra faith. After waiting 5 minutes for the anesthetic to take effect, I made an incision around the MRSA ulcer left medial leg down into subcutaneous tissue. Some pus pockets were seen. Also scattered throughout the subcutaneous tissue were small areas of no tissue. Like a urugu[place] cheese effect. There was tunneling superiorly that was excised and debrided to make wound care easier and less painful. At the present time, the tunneling needs to be packed blindly. Impossible to know for sure if the packing was adequate. If not then fluid buildup occurs which can lead to a secondary infection. By opening up this tunneling, packing the wound with either the VAC or Dakin's dressing changes will be easier and more thorough since the base of the ulcer is readily visualized. Also a lot of fat necrosis was present which was excised and debrided. The pus pockets had scar tissue around them as her immune system was trying to wall off the multiple small abscesses. I irrigated out the pus. I a lso encountered some inflamed and thickened fascia. The thickened fascia looked pale. This inflamed fascia was sent to Pathology for analysis to rule out carcinoma and to evaluate for fasciitis. Some of the fascia was sent to Microbiology for culture. The rest of the excised and debrided tissue was sent to Pathology for analysis to rule out carcinoma and to Microbiology for culture. A positive culture will necessitate antibiotic therapy. She is currently on Vancomycin. Some of the blistered areas superiorly showed some crusting and some drainage. They were included with the excision and debridement. A small area of proximal blistering looked as though they were starting to heal. So I left those blisters alone. However if this proximal area starts to look worse than today, than additional operative debridement would be necessary. I discussed that with the patient and her mother. They voiced understanding and don't mind a second trip to the OR if some of the proximal blistering is left alone initially. The size of the MRSA ulcer left medial leg after incision and drainage and excisional debridement is 9 x 14 x 3 cm or 126 cm2. Hemostasis was obtained with electrocautery. The ulcer was irrigated with saline. The ulcer was dressed with Mepitel nonadherent dressing followed by Kerlix gauze and Betadine and followed by dry Kerlix gauze and ABD pads and secured with Medipore tape and an leann wrap for compression. Patient tolerated the procedure well and was sent to PACU in satisfactory condition. Patient will be sent upstairs for continued postop care. The VAC will be applied tomorrow. Grafts/Implants Used: None. Procedure Start Time: 15:36 Procedure Stop Time: 16:24 Complications None. Admit VTE Documentation VTE Present on Admission: No VTE Mechan Device Prophylaxis: SCD's VTE Pharm Prophylaxis ordered?: Yes Addendum Addendum: Surgery Charges CPT - 83228 ICD-10 - L97.925, A49.02, L02.416, Z87.39, E66.01 66846 L97.925, A49.02, L02.416, Z87.39, E66.01 59450 L02.416, A49.02, L97.925, Z87.39, E66.01
[2023-04-07] MEDS: MELATONIN 10 MG TABLET 20 MG PO (22:10)
[2023-04-07] MEDS: Pramipexole Di-HCl 0.125 MG Tablet 0.375 MG PO (22:10)
[2023-04-07] MEDS: Docusate Sodium 100 MG Capsule PO (22:11)
[2023-04-07] MEDS: Famotidine 20 MG Tablet 40 MG PO (22:11)
[2023-04-07] MEDS: Doxazosin 1 MG Tablet PO (22:12)
[2023-04-07] MEDS: Morphine 4 MG/ML Syringe IV (22:29)
[2023-04-07] MEDS: traZODone 100 MG Tablet 150 MG PO (22:29)
[2023-04-07 23:55] LABS: Vancomycin, Random Level 8.7 ug/mL (0.0-15.0)
--- NOTE | 2023-04-08 00:36 | PCM.RX.CS ---
Consult Antibiotic Management Pharmacy has been consulted to manage selected antiobiotic: Vancomycin Type of Intervention Type of Consult: Follow-up Labs Labs: Sodium 138 mmol/L (136-145) 04/07/23 06:40 Potassium 3.8 mmol/L (3.5-5.1) 04/07/23 06:40 Chloride 111 mmol/L (98-107) H 04/07/23 06:40 Carbon Dioxide 20.0 mmol/L (21.0-32.0) L 04/07/23 06:40 Anion Gap 7 (5-15) 04/07/23 06:40 BUN 12 mg/dL (7-18) 04/07/23 06:40 Creatinine 0.74 mg/dL (0.55-1.02) 04/07/23 06:40 Est GFR (MDRD) Af Amer 125 mL/min (>60) 04/07/23 06:40 Est GFR (MDRD) Non-Af 103 mL/min (>60) 04/07/23 06:40 BUN/Creatinine Ratio 16.1 RATIO (10-20) 04/07/23 06:40 Glucose 98 mg/dL (74-106) 04/07/23 06:40 Vancomycin Trough 35.9 ug/mL (5.0-15.0) H 04/06/23 23:30 Random Vancomycin 8.7 ug/mL (0.0-15.0) 04/07/23 23:23 Microbiology Microbiology: Microbiology 04/05/23 13:03 Blood Culture (Wb) - Anticubital Right Blood Culture - Preliminary No growth in 48 hours. 04/05/23 12:34 Blood Culture (Wb) - Anticubital Left Blood Culture - Preliminary No growth in 48 hours. Dosing Weight Weight used for dosin.6 kg Estimated Creatinine Clearance Estimated Creatinine Clearance: 161 Goal Trough Goal Trough: 15-20 mcg/mL Pharmacy Plan for Drug Dosing Pharmacy Plan for Drug Dosing: The vancomycin random level drawn 23.3hrs after the last dose was 8.7. This was drawn due to the previous high level of 35.9. Per dosing calculator, a new dose of 1500mg q12h should give an estimated trough of 16.4. This will be initiated now, and a trough will be drawn prior to the fourth dose. Pharmacy Service will continue to monitor and adjust dosing as required. Follow-Up Labs Follow-Up Labs: Trough: Vancomycin Date/Time Labs Ordered Labs to be done on [date and time ordered]: 04/10/23 @0030
[2023-04-08] MEDS: DiphenhydrAMINE 25 MG Capsule PO (01:11)
[2023-04-08 02:05] VITALS: BP 109/59; PULSE 83; RESP 16; TEMP 36.8; O2SAT 98
[2023-04-08] MEDS: oxyCODONE 5 MG Tablet PO ×3 (02:15→16:54)
[2023-04-08] MEDS: Morphine 4 MG/ML Syringe IV ×3 (04:21→19:52)
[2023-04-08] MEDS: 0.9% Saline Lock 10 ML Syringe IV ×4 (04:24→16:54)
[2023-04-08 06:26] VITALS: BP 107/72; PULSE 97; RESP 16; TEMP 37.1; O2SAT 98
[2023-04-08 06:57] LABS: Absolute Lymphocyte Count 1.89 X10^3/uL (0.83-4.51); Absolute Neutrophil Count 3.2 X10^3/uL (2.0-7.7); Basophil# 0.02 X10^3/uL; Basophil% 0.3 % (0-1); Eosinophil# 0.15 X10^3/uL; Eosinophils% 2.6 % (0-5); Hematocrit 35.4 % (37-47); Hemoglobin 11.5 g/dL (12.0-15.0); Lymphocyte # 1.89 X10^3/ul (0.83-4.51); Lymphocyte % 32.5 % (19-41); Mean Corp Hgb Conc 32.5 g/dL (32-36); Mean Corpuscular Hgb 27.8 pg (27.0-32.0); Mean Corpuscular Volume 85.7 fL (81-99); Monocyte# 0.55 X10^3/uL; Monocyte% 9.5 % (0-10); NRBC Flagged by Analyzer 0 % (0-5); Neutrophil % 54.9 % (47-70); Platelet Count 190 K/mm3 (150-450); RBC Distribution Width CV 13.3 % (11.6-14.6); RBC Distribution Width SD 41.5 fl (35.1-43.9); Red Blood Count 4.13 M/mm3 (4.2-5.4); White Blood Count 5.8 K/mm3 (4.4-11.0)
[2023-04-08 07:20] LABS: Anion Gap 4 (5-15); BUN 7 mg/dL (7-18); BUN/Creat Ratio 8.6 RATIO (10-20); Calcium,Total 8.1 mg/dL (8.5-10.1); Chloride 111 mmol/L (98-107); Creatinine, Serum 0.82 mg/dL (0.55-1.02); EST Glomerular Filtration Rate 93 mL/min (>60); Est Glom Filt Rate - Afr Amer 112 mL/min (>60); Estimated Creatinine Clearance 89.02 ml/min; Glucose 130 mg/dL (74-106); Potassium 3.5 mmol/L (3.5-5.1); Sodium Level 140 mmol/L (136-145)
[2023-04-08] MEDS: Morphine 2 MG/ML Syringe IV (08:23)
[2023-04-08] MEDS: Ferrous Sulfate 325 MG Tablet PO (08:25)
[2023-04-08] MEDS: VILAZODONE HYDROCHLORIDE 20 MG TABLET PO (08:25)
[2023-04-08] MEDS: Cholecalciferol (Vit D3) 125 MCG CAPSULE (5,000 UNITS) PO (08:27)
[2023-04-08] MEDS: Magnesium Chloride 64 MG Delay Rel.Tablet 128 MG PO (08:27)
[2023-04-08] MEDS: Famotidine 20 MG Tablet 40 MG PO ×2 (08:28→21:22)
[2023-04-08] MEDS: BREXPIPRAZOLE 4 MG PO (08:28)
[2023-04-08] MEDS: busPIRone 15 MG TABLET 30 MG PO ×2 (08:28→21:22)
[2023-04-08] MEDS: Enoxaparin 40 MG/0.4 ML Syringe SC (08:28)
[2023-04-08] MEDS: Pantoprazole Sodium 40 MG Tablet PO ×2 (08:29→21:23)
[2023-04-08] MEDS: Propranolol 10 MG Tablet PO ×2 (08:29→21:24)
[2023-04-08] MEDS: Loratadine 10 MG Tablet PO (08:29)
[2023-04-08] MEDS: Pramipexole Di-HCl 0.125 MG Tablet 0.25 MG PO (08:29)
[2023-04-08] MEDS: dilTIAZem CD 240 MG Capsule PO (08:29)
[2023-04-08] MEDS: Fluconazole 100 MG Tablet 200 MG PO (08:29)
[2023-04-08] MEDS: lamoTRIgine 150 MG Tablet PO (08:29)
[2023-04-08 08:30] VITALS: BP 117/79; PULSE 89; RESP 18; TEMP 36.9; O2SAT 95
[2023-04-08] MEDS: hydrOXYzine PAM 25 MG Capsule 50 MG PO ×2 (08:30→21:21)
[2023-04-08] MEDS: Docusate Sodium 100 MG Capsule PO ×2 (08:30→21:23)
--- NOTE | 2023-04-08 08:33 | PN.HOSP_ITS ---
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 without evidence of necrosis (04/05/23) Personal history of other diseases of the musculoskeletal system and connective tissue (04/05/23) Subjective Subjective Reports having pain at present with no other physical complaints Objective Data Objective Data Vital Signs: Vital Signs Temp Pulse Resp BP Pulse Ox O2 Del Method O2 Flow Rate 98.7 F 97 16 107/72 98 Non-Rebreather @ 15L/min and High Flow 2 04/08/23 06:26 04/08/23 06:26 04/08/23 06:26 04/08/23 06:26 04/08/23 06:26 04/08/23 06:04/08/23 02:05 Oxygen Flow Rate (L/min) 2 Oxygen Delivery Method Non-Rebreather @ 15L/min Weight: 135.624 kg Body Mass Index (BMI) 52.9 Intake & Output: Intake and Output for Last 24 Hours 04/06/23 04/07/23 04/08/23 23:59 23:59 23:59 Intake Total 3750.25 / 4050.25 3684.76 / 4184.76 1888.33 / 1888.33 Balance 3750.25 / 4050.25 3684.76 / 4184.76 1888.33 / 1888.33 Lab / Micro Data 04/08/23 06:40 04/08/23 06:40 Labs: Laboratory Results - last 24 hr 04/07/23 23:23: Random Vancomycin 8.7 04/08/23 06:40: WBC 5.8, RBC 4.13 L, Hgb 11.5 L, Hct 35.4 L, MCV 85.7, MCH 27.8, MCHC 32.5, RDW Std Deviation 41.5, RDW Coeff of Anastacio 13.3, Plt Count 190, MPV 10.0, Immature Gran % (Auto) 0.200, Neut % (Auto) 54.9, Lymph % (Auto) 32.5, Charlton % (Auto) 9.5, Eos % (Auto) 2.6, Baso % (Auto) 0.3, Absolute Neuts (auto) 3.2, Absolute Lymphs (auto) 1.89, Nucleated RBC % 0, Sodium 140, Potassium 3.5, Chloride 111 H, Carbon Dioxide 25.0, Anion Gap 4 L, BUN 7, Creatinine 0.82, Estim Creat Clear Calc 89.02, Est GFR (MDRD) Af Amer 112, Est GFR (MDRD) Non-Af 93, BUN/Creatinine Ratio 8.6 L, Glucose 130 H, Calcium 8.1 L Micro: Microbiology 04/05/23 13:03 Blood Culture (Wb) - Anticubital Right Blood Culture - Preliminary No growth in 48 hours. 04/05/23 12:34 Blood Culture (Wb) - Anticubital Left Blood Culture - Preliminary No growth in 48 hours. Physical Exam Narrative General: Alert, oriented, no apparent distress HEENT: Atraumatic, normocephalic Eyes: Anicteric, normal conjunctiva, extraocular movements grossly intact Neck: Supple Respiratory: Clear to auscultation bilaterally, normal respiratory effort Cardiovascular: Regular rate and rhythm GI: Soft, nontender, nondistended Extremities: Left leg postop and wrapped Musculoskeletal: Moving all extremities Neuro: No overt focal neurological deficits Skin: Left leg wrapped Psych: Cooperative Assessment & Plan Assessment/Plan (1) Ulcer of left lower extremity with muscle involvement without evidence of necrosis: PLAN: Plan 1. Left lower extremity ulceration with infection ? We will continue with vancomycin and Diflucan and consult infectious disease ? We will consult plastic surgery as they recommended her to come in to the [facility], to evaluate for possible surgery ? We will consult wound care ? Apparently wound cultures were repeated at the wound care center ? There is always been a concern for self and harm and that her infections are ultimately self mediated from her psychiatric illness -04/06: Consults pending, cultures pending, continue vancomycin. Given worsened pain and swelling we will get CT lower extremity and check ESR, CRP, lactic acid -04/07: CRP only mildly elevated at 20 and ESR within normal limits, lactic acid also within normal limits. CT of the lower extremity did show air with broad differential, patient does not appear clinically unstable or clinically ill and do not think patient has gas gangrene or necrotizing fasciitis, ID on board, plastics to take patient for debridement -04/08: Status postdebridement on 04/07, follow cultures, continue present antibiotics, blood cultures from admission no growth to date, Intra-Op cultures taken and are pending 2. ADHD with depression/borderline personality disorder and conversion disorder/pseudoseizure ? Mood appears to be stable at this time ? We will continue with all of her home medications ? Can encourage continued outpatient psychiatric evaluation and monitoring -04/06: Continue present medications -04/07: will need to continue to follow psychiatry as an outpatient 3. GERD ? Stable ? Continue with her home medications -04/06: Continue PPI twice daily 4. Asthma ? Stable ? Continue with albuterol as needed DVT: Lovenox Time spent in the patient's overall evaluation,decision-making process, review of diagnostic data, adjustment of management, discussion with other providers, nursing nursing and ancillary staff involved in patient's care documentation, 36 minutes Charges/Coding Visit Charges Inpatient E&M: 15612 Subs Hosp L2
--- NOTE | 2023-04-08 09:20 | WOUNDNOTE ---
wound photo: left medial lower leg
--- NOTE | 2023-04-08 10:23 | PCM.PN.ID ---
Physical Exam Narrative Leg hurts, no fever, no n/v/d. Const alert and no apparent distress General Appearance: cooperative Resp normal air movement and clear to auscultation bilaterally Cardio regular rate and regular rhythm GI soft to palpation, non-tender and non-distended Skin Skin Narrative: wound vac on LLE ID ID: Route of nutrition/ use of supplements: [] Nutritional Intake: [] IV Site: [] Hu Catheter: [] Assessment & Plan Assessment/Plan (1) History of necrotizing fasciitis: (2) Serous bulla of skin: PLAN: H/o self harm and necrotizing fasciitis. Reviewed recent [facility] records. On vanc, CT showed gas in tissue, mild presentation. Has been on doxy/fluc as an outpt. Taken to OR 04/07/[address] Alfonso for I&D. Wound cx here with staph. Cont vanc, also on fluc. Will follow
--- NOTE | 2023-04-08 11:01 | CASEMGMT ---
Discharge Planning A list of home health providers including quality and resource use data and consistent with the patient?s preferred geographic region, medical needs, and insurance network was created in [employer]. This list was provided to the RN KAMERON. Cheyanne Stout, Discharge Planning Asst.
[2023-04-08 11:20] VITALS: BP 102/76; PULSE 89; RESP 18; TEMP 36.8; O2SAT 92
--- NOTE | 2023-04-08 11:57 | CASEMGMT ---
Addendum entered by Luly Agustin 04/08/23 15:08: RAUDEL MELO into pt room, pt has chosen 1. [facility]. [facility]. [facility]. DC salon assistant to send referral to [facility]. Pt next [facility] appt is on Apr 19 d/t hol. Original Note: RAUDEL MELO into pt room, pt lying in bed with wound vac in place. Pt is agreeable to [facility]. Provided list prepared by dc salon assistant. Pt to review for her top three preferences, RAUDEL MELO to check back for choices. Pt denies further needs.
--- NOTE | 2023-04-08 12:45 | PN.SURG_ITS ---
Subjective Subjective Postop #1 Patient states she is having a lot of pain and discomfort. Objective Data Objective Data Patient sitting up in chair at bedside. Vital Signs: Vital Signs Oxygen Flow Rate (L/min) 2 Oxygen Delivery Method Room Air Weight: 299 lb Body Mass Index (BMI) 52.9 Intake & Output: Intake and Output for Last 24 Hours 04/07/23 23:59 Intake Total 3684.76 / 4184.76 Balance 3684.76 / 4184.76 Lab / Micro Data 04/09/23 06:45 04/09/23 06:45 Labs: Laboratory Results - last 24 hr 04/09/23 06:45: WBC 4.8, RBC 4.23, Hgb 12.1, Hct 36.1 L, MCV 85.3, MCH 28.6, MCHC 33.5, RDW Std Deviation 42.2, RDW Coeff of Anastacio 13.7, Plt Count 188, MPV 9.7, Immature Gran % (Auto) 0.400, Neut % (Auto) 50.6, Lymph % (Auto) 33.1, [place] % (Auto) 11.2 H, Eos % (Auto) 4.3, Baso % (Auto) 0.4, Absolute Neuts (auto) 2.4, Absolute Lymphs (auto) 1.60, Nucleated RBC % 0, Sodium 142, Potassium 3.5, Chloride 112 H, Carbon Dioxide 26.0, Anion Gap 4 L, BUN 7, Creatinine 0.68, Estim Creat Clear Calc 107.35, Est GFR (MDRD) Af Amer 137, Est GFR (MDRD) Non-Af 114, BUN/Creatinine Ratio 10.2, Glucose 101, Calcium 8.1 L Micro: Microbiology 04/07/23 15:58 Tissue - Leg, Left Gram Stain - Final 04/07/23 15:58 Tissue - Leg, Left Anaerobic Culture - Preliminary No growth in 48 hours. 04/07/23 15:56 Tissue - Leg, Left Gram Stain - Final 04/07/23 15:56 Tissue - Leg, Left Anaerobic Culture - Preliminary No growth in 48 hours. 04/05/23 13:03 Blood Culture (Wb) - Anticubital Right Blood Culture - Preliminary No growth in 48 hours. 04/05/23 12:34 Blood Culture (Wb) - Anticubital Left Blood Culture - Preliminary No growth in 48 hours. Physical Exam Narrative PHYSICAL EXAMINATION General - Alert and oriented. HEENT - PERRL. EOMI. Lungs- Normal respiratory effort. Able to speak in full sentences. Heart - Regular rate and rhythm. Extremities - FROM. Left medial leg with no active bleeding. Wound VAC dressing in place. Neuro - CN II-XII grossly intact. Psych - Flat affect. Appropriate. Assessment & Plan Assessment/Plan (1) Ulcer of left lower extremity with muscle involvement without evidence of necrosis: (2) Serous bulla of skin: (3) History of MRSA infection: (4) Major depressive disorder, recurrent severe without psychotic features: (5) Borderline personality disorder: PLAN: Plan Patient is requiring IV pain medication to manage her pain. Left medial leg wound with no active bleeding. Wound VAC placed today. Wound culture from wound center visit on 04/05/23 positive for MRSE and Staphylococcus Haemolyticus. She is currently on Vancomycin and fluconazole. ID managing. Operative cultures pending. Encouraged increase protein intake for increased metabolic demands. Will obtain Pre albumin. Would like home health involved to help with dressing changes to help keep a close eye on her wound. She is scheduled to follow up at the wound center on 04/19/23.
[2023-04-08] MEDS: 0.9% Normal Saline 1,000 ML 100 ML IV (12:57)
--- NOTE | 2023-04-08 15:40 | CASEMGMT ---
Discharge Planning Referral sent to [facility] via [facility]. Cheyanne Stout, Discharge Planning Asst.
--- NOTE | 2023-04-08 16:10 | CASEMGMT ---
Social Work SW met with pt and introduced self and role of SW. Pt agreeable to speak with SW. Pt presents with several mental health diagnosis. Pt states she follows with Dr. Jain for psychiatry monthly and follows with Counselor Gerard Hare at [facility] weekly. Pt states she has a standing appointment with Gerard and finds this very helpful. Pt admits to cutting in the past but denies any self harm at this time. Pt states she takes medications as prescribed and feels they are helpful. Pt denies any other needs. YONATHAN Andrew
[2023-04-08] MEDS: Ondansetron 4 MG/2 ML Vial IV (16:54)
[2023-04-08 17:00] VITALS: BP 104/63; PULSE 75; RESP 18; TEMP 37.2; O2SAT 100
[2023-04-08] MEDS: Doxazosin 1 MG Tablet PO (21:21)
[2023-04-08] MEDS: Pramipexole Di-HCl 0.125 MG Tablet 0.375 MG PO (21:21)
[2023-04-08] MEDS: MELATONIN 10 MG TABLET 20 MG PO (21:23)
[2023-04-08] MEDS: traZODone 100 MG Tablet 150 MG PO (21:30)
[2023-04-08 22:00] VITALS: BP 108/70; PULSE 90; RESP 16; TEMP 37.1; O2SAT 98
[2023-04-09] MEDS: 0.9% Normal Saline 1,000 ML 100 ML IV ×3 (00:28→13:58)
[2023-04-09] MEDS: Morphine 2 MG/ML Syringe IV ×5 (00:29→20:58)
[2023-04-09] MEDS: Ondansetron 4 MG/2 ML Vial IV ×2 (04:45→15:14)
[2023-04-09 04:50] VITALS: BP 106/64; PULSE 84; RESP 16; TEMP 37; O2SAT 96
--- NOTE | 2023-04-09 06:17 | WOUNDNOTE ---
Home VAC approved.
[2023-04-09 07:09] LABS: Absolute Neutrophil Count 2.4 X10^3/uL (2.0-7.7); Basophil# 0.02 X10^3/uL; Basophil% 0.4 % (0-1); Eosinophil# 0.21 X10^3/uL; Eosinophils% 4.3 % (0-5); Hematocrit 36.1 % (37-47); Hemoglobin 12.1 g/dL (12.0-15.0); Lymphocyte % 33.1 % (19-41); Mean Corp Hgb Conc 33.5 g/dL (32-36); Mean Corpuscular Hgb 28.6 pg (27.0-32.0); Mean Corpuscular Volume 85.3 fL (81-99); Mean Platelet Vol. 9.7 fl (6.2-12.0); Monocyte# 0.54 X10^3/uL; Monocyte% 11.2 % (0-10); NRBC Flagged by Analyzer 0 % (0-5); Neutrophil # 2.44 X10^3/uL (2.7-7.7); Neutrophil % 50.6 % (47-70); Platelet Count 188 K/mm3 (150-450); RBC Distribution Width CV 13.7 % (11.6-14.6); RBC Distribution Width SD 42.2 fl (35.1-43.9); Red Blood Count 4.23 M/mm3 (4.2-5.4); White Blood Count 4.8 K/mm3 (4.4-11.0)
[2023-04-09 07:49] LABS: Anion Gap 4 (5-15); BUN 7 mg/dL (7-18); BUN/Creat Ratio 10.2 RATIO (10-20); Calcium,Total 8.1 mg/dL (8.5-10.1); Chloride 112 mmol/L (98-107); Creatinine, Serum 0.68 mg/dL (0.55-1.02); EST Glomerular Filtration Rate 114 mL/min (>60); Est Glom Filt Rate - Afr Amer 137 mL/min (>60); Estimated Creatinine Clearance 107.35 ml/min; Glucose 101 mg/dL (74-106); Potassium 3.5 mmol/L (3.5-5.1); Sodium Level 142 mmol/L (136-145)
--- NOTE | 2023-04-09 08:17 | WOUNDNOTE ---
Pt resting in bed watching a movie on her phone. wound VAC dressing is intact with good seal noted at 150mmHg low continuous suction. Pt does not appear to be in much discomfort at this time.
--- NOTE | 2023-04-09 08:38 | PN.HOSP_ITS ---
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 without evidence of necrosis (04/05/23) Personal history of other diseases of the musculoskeletal system and connective tissue (04/05/23) Subjective Subjective Patient feeling a little bit nauseous and still having a lot of pain but no other complaints at this time Objective Data Objective Data Vital Signs: Vital Signs Temp Pulse Resp BP Pulse Ox O2 Del Method O2 Flow Rate 98.6 F 84 16 106/64 96 Room Air 2 04/09/23 04:50 04/09/23 04:50 04/09/23 04:50 04/09/23 04:50 04/09/23 04:50 04/09/23 04:50 04/08/23 02:05 Oxygen Flow Rate (L/min) 2 Oxygen Delivery Method Room Air Weight: 135.624 kg Body Mass Index (BMI) 52.9 Intake & Output: Intake and Output for Last 24 Hours 04/07/23 04/08/23 04/09/23 23:59 23:59 23:59 Intake Total 3684.76 / 4184.76 4160.00 / 4160.00 1863.33 / 1863.33 Balance 3684.76 / 4184.76 4160.00 / 4160.00 1863.33 / 1863.33 Lab / Micro Data 04/09/23 06:45 04/09/23 06:45 Labs: Laboratory Results - last 24 hr 04/09/23 06:45: WBC 4.8, RBC 4.23, Hgb 12.1, Hct 36.1 L, MCV 85.3, MCH 28.6, MCHC 33.5, RDW Std Deviation 42.2, RDW Coeff of Anastacio 13.7, Plt Count 188, MPV 9.7, Immature Gran % (Auto) 0.400, Neut % (Auto) 50.6, Lymph % (Auto) 33.1, [place] % (Auto) 11.2 H, Eos % (Auto) 4.3, Baso % (Auto) 0.4, Absolute Neuts (auto) 2.4, Absolute Lymphs (auto) 1.60, Nucleated RBC % 0, Sodium 142, Potassium 3.5, Chloride 112 H, Carbon Dioxide 26.0, Anion Gap 4 L, BUN 7, Creatinine 0.68, Estim Creat Clear Calc 107.35, Est GFR (MDRD) Af Amer 137, Est GFR (MDRD) Non-Af 114, BUN/Creatinine Ratio 10.2, Glucose 101, Calcium 8.1 L Micro: Microbiology 04/07/23 15:58 Tissue - Leg, Left Gram Stain - Final 04/07/23 15:56 Tissue - Leg, Left Gram Stain - Final 04/05/23 13:03 Blood Culture (Wb) - Anticubital Right Blood Culture - Preliminary No growth in 48 hours. 04/05/23 12:34 Blood Culture (Wb) - Anticubital Left Blood Culture - Preliminary No growth in 48 hours. Physical Exam Narrative General: Alert, oriented, no apparent distress HEENT: Atraumatic, normocephalic Eyes: Anicteric, normal conjunctiva, extraocular movements grossly intact Neck: Supple Respiratory: Clear to auscultation bilaterally, normal respiratory effort Cardiovascular: Regular rate and rhythm GI: Soft, nontender, nondistended Extremities: Left leg postop and wrapped Musculoskeletal: Moving all extremities Neuro: No overt focal neurological deficits Skin: Left leg wrapped Psych: Cooperative Assessment & Plan Assessment/Plan (1) Ulcer of left lower extremity with muscle involvement without evidence of necrosis: PLAN: Plan 1. Left lower extremity ulceration with infection ? We will continue with vancomycin and Diflucan and consult infectious disease ? We will consult plastic surgery as they recommended her to come in to the hospital, to evaluate for possible surgery ? We will consult wound care ? Apparently wound cultures were repeated at the wound care center ? There is always been a concern for self and harm and that her infections are ultimately self mediated from her psychiatric illness -04/06: Consults pending, cultures pending, continue vancomycin. Given worsened pain and swelling we will get CT lower extremity and check ESR, CRP, lactic acid -04/07: CRP only mildly elevated at 20 and ESR within normal limits, lactic acid also within normal limits. CT of the lower extremity did show air with broad differential, patient does not appear clinically unstable or clinically ill and do not think patient has gas gangrene or necrotizing fasciitis, ID on board, plastics to take patient for debridement -04/08: Status postdebridement on 04/07, follow cultures, continue present antibiotics, blood cultures from admission no growth to date, Intra-Op cultures taken and are pending -04/09: Intra-Op Gram stain's no growth to date, patient remains on vancomycin, infectious disease following, wound VAC placed. We will schedule Tylenol for pain control and attempt to transition to oral pain medication for hopeful DC over the weekend pending cultures in progress. When patient does go home she will have home health with dressing changes, presently scheduled to follow-up with wound center 04/19 2. ADHD with depression/borderline personality disorder and conversion disorder/pseudoseizure ? Mood appears to be stable at this time ? We will continue with all of her home medications ? Can encourage continued outpatient psychiatric evaluation and monitoring -04/06: Continue present medications -04/07: will need to continue to follow psychiatry as an outpatient 3. GERD ? Stable ? Continue with her home medications -04/06: Continue PPI twice daily 4. Asthma ? Stable ? Continue with albuterol as needed DVT: Lovenox Time spent in the patient's overall evaluation,decision-making process, review of diagnostic data, adjustment of management, discussion with other providers, nursing nursing and ancillary staff involved in patient's care documentation, 36 minutes Charges/Coding Visit Charges Inpatient E&M: 68858 Subs Hosp L2
[2023-04-09] MEDS: oxyCODONE 5 MG Tablet PO (09:06)
[2023-04-09] MEDS: Enoxaparin 40 MG/0.4 ML Syringe SC (09:06)
[2023-04-09] MEDS: proCHLORPERazine 10 MG/2 ML Vial 5 MG IV (09:06)
[2023-04-09] MEDS: busPIRone 15 MG TABLET 30 MG PO ×2 (09:07→20:57)
[2023-04-09] MEDS: Pantoprazole Sodium 40 MG Tablet PO ×2 (09:07→21:08)
[2023-04-09] MEDS: hydrOXYzine PAM 25 MG Capsule 50 MG PO ×2 (09:07→21:08)
[2023-04-09] MEDS: Loratadine 10 MG Tablet PO (09:07)
[2023-04-09] MEDS: dilTIAZem CD 240 MG Capsule PO (09:07)
[2023-04-09] MEDS: Docusate Sodium 100 MG Capsule PO ×2 (09:07→21:08)
[2023-04-09] MEDS: Ferrous Sulfate 325 MG Tablet PO (09:07)
[2023-04-09] MEDS: Magnesium Chloride 64 MG Delay Rel.Tablet 128 MG PO (09:07)
[2023-04-09] MEDS: Famotidine 20 MG Tablet 40 MG PO ×2 (09:07→21:08)
[2023-04-09] MEDS: Propranolol 10 MG Tablet PO (09:08)
[2023-04-09] MEDS: Fluconazole 100 MG Tablet 200 MG PO (09:08)
[2023-04-09] MEDS: Cholecalciferol (Vit D3) 125 MCG CAPSULE (5,000 UNITS) PO (09:08)
[2023-04-09] MEDS: lamoTRIgine 150 MG Tablet PO (09:08)
[2023-04-09] MEDS: VILAZODONE HYDROCHLORIDE 20 MG TABLET PO (09:09)
[2023-04-09] MEDS: Acetaminophen 500 MG Tablet 1000 MG PO ×2 (09:12→16:26)
[2023-04-09 09:25] VITALS: O2SAT 94
[2023-04-09 10:37] LABS: Prealbumin 13.9 mg/dL (20.0-40.0)
--- NOTE | 2023-04-09 10:37 | CASEMGMT ---
Addendum entered by Luly Agustin 04/09/23 16:16: [facility] accepted pt for SOC on Wednesday. Green sheet on chart pending antibiotic approval and cost. Hospitalist and Hilary DRIVER MANAGER updated as well as pt. Pt is agreeable to this agency. Addendum entered by Luly Agustin 04/09/23 15:55: Received notification that the following agencies are unable to accept pt: [facility], [facility], [facility], [facility] and [facility]. [facility] is checking eligibility to see if able to accept. Addendum entered by Luly Agustin 04/09/23 14:57: Received notification that [facility] is unable to accept pt. RAUDEL MELO into pt room, she is aware. She states she is agreeable for the referral to be sent to all agencies on her list and will decide based on who can accept. Referrals sent to remaining agencies. Spoke with ID who states the only oral option for pt is [facility] and when ordered it was indicated that it was not covered by pt insurance. Other option would be picc line and IV atb and pt could not return home with this d/t hx. Looked on [facility], med cost is approx $2300 depending on which pharmacy used. TC to [facility] (?), who states they do not have this med and it cannot be ordered. RAUDEL MELO into pt room to make aware. Pt would like med sent to [facility]. She will discuss this with her mother as well. TC to [facility] pharmacy, spoke with pharmacist who states he will call [facility] to trf rx. He states it appears they can order the medication. He submitted med and it needs PA. Phone number received for PA of . TC to [facility] for PA, spoke with Romelia. Information given for PA. Turn around time is 24 hours. Pending PA #[id number]. Ref # for call is [id number]. This was completed at 1430. RAUDEL MELO into pt room, pt is aware of this. Pt states she cannot afford the med if it is the miranda of [facility]. She states she has been to [facility] in the past and would like to return if the med is not covered. She states when she was in [facility], no SNF locally would accept her. Made her aware that she may not meet criteria for LTACH. RN CM to follow. Addendum entered by Luly Agustin 04/09/23 11:23: Received tc from Maryann at [facility] who states they are unable to accept pt d/t low staffing. RN CM into pt room, pt is aware that the first two agencies are unable to accept. Pt is agreeable to [facility] and is aware that they may be able to accept her insurance since today is the first of the month. She states to try [facility]. TC to Erika at [facility], she will review and notify RN CM of decision to accept. Original Note: TC to [facility], spoke with [facility], they are unable to accept pt for services. TC to Maryann at [facility], referral given and sent via [facility] at this time. She states she will review, the earliest that care could be started is Wednesday. Will await decision to accept.
[2023-04-09 10:43] VITALS: BP 125/75; PULSE 88; RESP 16; TEMP 36.7; O2SAT 97
[2023-04-09] MEDS: Pramipexole Di-HCl 0.125 MG Tablet 0.25 MG PO (11:37)
--- NOTE | 2023-04-09 14:18 | PN.ID_ITS ---
Physical Exam Narrative Feeling ok but having a lot of pain in leg. No fever, no n/v/d. Const alert and no apparent distress Resp normal air movement and clear to auscultation bilaterally Cardio regular rate and regular rhythm GI soft to palpation, non-tender and non-distended Skin Skin Narrative: wound vac on LLE ID ID: Route of nutrition/ use of supplements: [] Nutritional Intake: [] IV Site: [] Hu Catheter: [] Assessment & Plan Assessment/Plan (1) History of necrotizing fasciitis: (2) Serous bulla of skin: PLAN: H/o self harm and necrotizing fasciitis. Reviewed recent [facility] records. On vanc, CT showed gas in tissue, mild presentation. Has been on doxy/fluc as an outpt. Taken to OR 04/07/[address] Alfonso for I&D. Wound cx here with MR-CoNS x2. Cont vanc, also on fluc. Need to avoid linezolid due to risk of serotonin syndrome. Will write for [facility], but concern for potential cost issues. Will follow, wrote rx, d/w immigration case worker
[2023-04-09 14:43] VITALS: BP 120/72; PULSE 78; RESP 16; TEMP 36.8; O2SAT 98
--- NOTE | 2023-04-09 15:28 | PCM.PN.SRG ---
Subjective Subjective Postop #2 Patient states she continues to have significant amount of pain. She complains of nausea. She states that she has been given something to help with her nausea. Objective Data Objective Data Vital Signs: Vital Signs Temp Pulse Resp BP Pulse Ox O2 Del Method O2 Flow Rate 98.2 F 78 16 120/72 98 Room Air 2 04/09/23 14:43 04/09/23 14:43 04/09/23 14:43 04/09/23 14:43 04/09/23 14:43 04/09/23 14:43 04/08/23 02:05 Oxygen Flow Rate (L/min) 2 Oxygen Delivery Method Room Air Weight: 299 lb Body Mass Index (BMI) 52.9 Intake & Output: Intake and Output for Last 24 Hours 04/07/23 04/08/23 04/09/23 23:59 23:59 23:59 Intake Total 3684.76 / 4184.76 4160.00 / 4160.00 3080.00 / 3080.00 Balance 3684.76 / 4184.76 4160.00 / 4160.00 3080.00 / 3080.00 Lab / Micro Data 04/09/23 06:45 04/09/23 06:45 Labs: Laboratory Results - last 24 hr 04/09/23 06:45: WBC 4.8, RBC 4.23, Hgb 12.1, Hct 36.1 L, MCV 85.3, MCH 28.6, MCHC 33.5, RDW Std Deviation 42.2, RDW Coeff of Anastacio 13.7, Plt Count 188, MPV 9.7, Immature Gran % (Auto) 0.400, Neut % (Auto) 50.6, Lymph % (Auto) 33.1, [place] % (Auto) 11.2 H, Eos % (Auto) 4.3, Baso % (Auto) 0.4, Absolute Neuts (auto) 2.4, Absolute Lymphs (auto) 1.60, Nucleated RBC % 0, Sodium 142, Potassium 3.5, Chloride 112 H, Carbon Dioxide 26.0, Anion Gap 4 L, BUN 7, Creatinine 0.68, Estim Creat Clear Calc 107.35, Est GFR (MDRD) Af Amer 137, Est GFR (MDRD) Non-Af 114, BUN/Creatinine Ratio 10.2, Glucose 101, Calcium 8.1 L, Prealbumin 13.9 L Micro: Microbiology 04/07/23 15:58 Tissue - Leg, Left Gram Stain - Final 04/07/23 15:58 Tissue - Leg, Left Wound Culture - Preliminary No growth-Final to follow 04/07/23 15:58 Tissue - Leg, Left Anaerobic Culture - Preliminary No growth in 48 hours. 04/07/23 15:56 Tissue - Leg, Left Gram Stain - Final 04/07/23 15:56 Tissue - Leg, Left Wound Culture - Preliminary No growth-Final to follow 04/07/23 15:56 Tissue - Leg, Left Anaerobic Culture - Preliminary No growth in 48 hours. 04/05/23 13:03 Blood Culture (Wb) - Anticubital Right Blood Culture - Preliminary No growth in 48 hours. 04/05/23 12:34 Blood Culture (Wb) - Anticubital Left Blood Culture - Preliminary No growth in 48 hours. Physical Exam Narrative PHYSICAL EXAMINATION General - Alert and oriented. HEENT - PERRL. EOMI. Lungs- Normal respiratory effort. Able to speak in full sentences. Heart - Regular rate and rhythm. Extremities - FROM. Left medial leg with no active bleeding. Wound VAC dressing in place. Neuro - CN II-XII grossly intact. Psych - Flat affect. Appropriate. Assessment & Plan Assessment/Plan (1) Ulcer of left lower extremity with muscle involvement without evidence of necrosis: (2) Serous bulla of skin: (3) History of MRSA infection: (4) Major depressive disorder, recurrent severe without psychotic features: (5) Borderline personality disorder: PLAN: Plan Patient is requiring IV pain medication to manage her pain. She now is experiencing nausea. Left medial leg wound with no active bleeding. Wound VAC dressing in place. Wound culture from wound center visit on 04/05/23 positive for MRSE and Staphylococcus Haemolyticus. She is currently on Vancomycin and fluconazole. ID managing her antibiotics. Operative cultures pending. Encouraged increase protein intake for increased metabolic demands. Pre albumin 13.9 today. Will start her on Mateo BID. Would like home health involved to help with dressing changes to help keep a close eye on her wound. She is scheduled to follow up at the wound center on 04/19/23.
[2023-04-09 20:52] VITALS: BP 106/74; PULSE 72; RESP 18; TEMP 36.9; O2SAT 98
[2023-04-09] MEDS: Pramipexole Di-HCl 0.125 MG Tablet 0.375 MG PO (20:57)
[2023-04-09] MEDS: Doxazosin 1 MG Tablet PO (21:08)
[2023-04-09] MEDS: MELATONIN 10 MG TABLET 20 MG PO (21:08)
[2023-04-09] MEDS: traZODone 100 MG Tablet 150 MG PO (21:09)
[2023-04-10] VITALS (7 sets, daily range): BP systolic 104–135; BP diastolic 72–92; PULSE 76–97; RESP 16–19; TEMP 36.5–37; O2SAT 95–97
[2023-04-10 01:37] LABS: Vancomycin, Trough Level 12.3 ug/mL (5.0-15.0)
--- NOTE | 2023-04-10 01:55 | PCM.RX.CS ---
Consult Antibiotic Management Pharmacy has been consulted to manage selected antiobiotic: Vancomycin Type of Intervention Type of Consult: Follow-up Labs Labs: Sodium 142 mmol/L (136-145) 04/09/23 06:45 Potassium 3.5 mmol/L (3.5-5.1) 04/09/23 06:45 Chloride 112 mmol/L (98-107) H 04/09/23 06:45 Carbon Dioxide 26.0 mmol/L (21.0-32.0) 04/09/23 06:45 Anion Gap 4 (5-15) L 04/09/23 06:45 BUN 7 mg/dL (7-18) 04/09/23 06:45 Creatinine 0.68 mg/dL (0.55-1.02) 04/09/23 06:45 Est GFR (MDRD) Af Amer 137 mL/min (>60) 04/09/23 06:45 Est GFR (MDRD) Non-Af 114 mL/min (>60) 04/09/23 06:45 BUN/Creatinine Ratio 10.2 RATIO (10-20) 04/09/23 06:45 Glucose 101 mg/dL (74-106) 04/09/23 06:45 Vancomycin Trough 12.3 ug/mL (5.0-15.0) 04/10/23 00:55 Random Vancomycin 8.7 ug/mL (0.0-15.0) 04/07/23 23:23 Microbiology Microbiology: Microbiology 04/07/23 15:58 Tissue - Leg, Left Gram Stain - Final 04/07/23 15:58 Tissue - Leg, Left Wound Culture - Preliminary No growth-Final to follow 04/07/23 15:58 Tissue - Leg, Left Anaerobic Culture - Preliminary No growth in 48 hours. 04/07/23 15:56 Tissue - Leg, Left Gram Stain - Final 04/07/23 15:56 Tissue - Leg, Left Wound Culture - Preliminary No growth-Final to follow 04/07/23 15:56 Tissue - Leg, Left Anaerobic Culture - Preliminary No growth in 48 hours. 04/05/23 13:03 Blood Culture (Wb) - Anticubital Right Blood Culture - Preliminary No growth in 48 hours. 04/05/23 12:34 Blood Culture (Wb) - Anticubital Left Blood Culture - Preliminary No growth in 48 hours. Dosing Weight Weight used for dosin.6 kg Estimated Creatinine Clearance Estimated Creatinine Clearance: >120 Goal Trough Goal Trough: 15-20 mcg/mL Pharmacy Plan for Drug Dosing Pharmacy Plan for Drug Dosing: Vancomycin trough level of 12.3, drawn 11 hours post-dose, was below the target range of 15-20. Will increase dose to 2000mg q12h, and will re-draw a trough prior to fourth dose of new regimen. Pharmacy Service will continue to monitor and adjust dosing as required. Follow-Up Labs Follow-Up Labs: Trough: Vancomycin Date/Time Labs Ordered Labs to be done on [date and time ordered]: 04/11/23 @[id number]
[2023-04-10] MEDS: Acetaminophen 500 MG Tablet 1000 MG PO ×3 (01:58→16:54)
[2023-04-10] MEDS: Ondansetron 4 MG/2 ML Vial IV ×2 (02:00→16:53)
[2023-04-10] MEDS: Morphine 2 MG/ML Syringe IV ×5 (02:00→23:34)
[2023-04-10] MEDS: 0.9% Normal Saline 1,000 ML 100 ML IV (02:01)
[2023-04-10] MEDS: proCHLORPERazine 10 MG/2 ML Vial 5 MG IV ×2 (04:03→23:25)
[2023-04-10] MEDS: 0.9% Saline Lock 10 ML Syringe IV ×5 (04:08→23:35)
[2023-04-10 05:34] LABS: Absolute Lymphocyte Count 1.65 X10^3/uL (0.83-4.51); Absolute Neutrophil Count 2.2 X10^3/uL (2.0-7.7); Basophil# 0.02 X10^3/uL; Basophil% 0.4 % (0-1); Eosinophil# 0.23 X10^3/uL; Eosinophils% 5.1 % (0-5); Hematocrit 35.4 % (37-47); Hemoglobin 11.5 g/dL (12.0-15.0); Lymphocyte # 1.65 X10^3/ul (0.83-4.51); Lymphocyte % 36.3 % (19-41); Mean Corp Hgb Conc 32.5 g/dL (32-36); Mean Corpuscular Hgb 27.9 pg (27.0-32.0); Mean Corpuscular Volume 85.9 fL (81-99); Mean Platelet Vol. 9.8 fl (6.2-12.0); Monocyte# 0.43 X10^3/uL; Monocyte% 9.5 % (0-10); NRBC Flagged by Analyzer 0 % (0-5); Neutrophil # 2.19 X10^3/uL (2.7-7.7); Neutrophil % 48.3 % (47-70); Platelet Count 178 K/mm3 (150-450); RBC Distribution Width CV 13.4 % (11.6-14.6); RBC Distribution Width SD 41.1 fl (35.1-43.9); Red Blood Count 4.12 M/mm3 (4.2-5.4); White Blood Count 4.5 K/mm3 (4.4-11.0)
[2023-04-10 05:56] LABS: Anion Gap 3 (5-15); BUN 7 mg/dL (7-18); Calcium,Total 8.2 mg/dL (8.5-10.1); Chloride 112 mmol/L (98-107); EST Glomerular Filtration Rate 110 mL/min (>60); Est Glom Filt Rate - Afr Amer 133 mL/min (>60); Estimated Creatinine Clearance 104.28 ml/min; Glucose 134 mg/dL (74-106); Potassium 3.4 mmol/L (3.5-5.1); Sodium Level 143 mmol/L (136-145)
[2023-04-10] MEDS: oxyCODONE 5 MG Tablet PO ×3 (08:43→18:37)
[2023-04-10] MEDS: Juven (unflavored) Packet 1 PACKET PO ×2 (08:45→16:54)
[2023-04-10] MEDS: Docusate Sodium 100 MG Capsule PO ×2 (08:45→21:40)
--- NOTE | 2023-04-10 08:45 | PCM.PN.HOSP ---
Reason for Visit Reason for Visit: Diagnoses Methicillin resistant Staphylococcus aureus infection, unspecified site (04/05/23) Morbid (severe) obesity due to excess calories (04/05/23) Major depressive disorder, recurrent severe without psychotic features (04/05/23) Borderline personality disorder (04/05/23) Cutaneous abscess of left lower limb (04/05/23) Bullous disorder, unspecified (04/05/23) Non-pressure chronic ulcer of unspecified part of left lower leg with muscle involvement without evidence of necrosis (04/05/23) Personal history of Methicillin resistant Staphylococcus aureus infection (04/05/23) Personal history of other diseases of the musculoskeletal system and connective tissue (04/05/23) Subjective Subjective Has been up moving around more with her leg and therefore has been having more pain Objective Data Objective Data Vital Signs: Vital Signs Temp Pulse Resp BP Pulse Ox O2 Del Method O2 Flow Rate 98.4 F 76 18 135/92 H 96 Room Air 2 04/10/23 06:58 04/10/23 06:58 04/10/23 06:58 04/10/23 06:58 04/10/23 06:58 04/10/23 06:58 04/08/23 02:05 Oxygen Flow Rate (L/min) 2 Oxygen Delivery Method Room Air Weight: 135.624 kg Body Mass Index (BMI) 52.9 Intake & Output: Intake and Output for Last 24 Hours 04/08/23 04/09/23 04/10/23 23:59 23:59 23:59 Intake Total 4160.00 / 4160.00 5310.00 / 5310.00 841.67 / 841.67 Balance 4160.00 / 4160.00 5310.00 / 5310.00 841.67 / 841.67 Lab / Micro Data 04/10/23 05:14 04/10/23 05:14 Labs: Laboratory Results - last 24 hr 04/09/23 06:45: Prealbumin 13.9 L 04/10/23 00:55: Vancomycin Trough 12.3 04/10/23 05:14: WBC 4.5, RBC 4.12 L, Hgb 11.5 L, Hct 35.4 L, MCV 85.9, MCH 27.9, MCHC 32.5, RDW Std Deviation 41.1, RDW Coeff of Anastacio 13.4, Plt Count 178, MPV 9.8, Immature Gran % (Auto) 0.400, Neut % (Auto) 48.3, Lymph % (Auto) 36.3, [place] % (Auto) 9.5, Eos % (Auto) 5.1 H, Baso % (Auto) 0.4, Absolute Neuts (auto) 2.2, Absolute Lymphs (auto) 1.65, Nucleated RBC % 0, Sodium 143, Potassium 3.4 L, Chloride 112 H, Carbon Dioxide 28.0, Anion Gap 3 L, BUN 7, Creatinine 0.70, Estim Creat Clear Calc 104.28, Est GFR (MDRD) Af Amer 133, Est GFR (MDRD) Non-Af 110, BUN/Creatinine Ratio 10.0, Glucose 134 H, Calcium 8.2 L Micro: Microbiology 04/07/23 15:58 Tissue - Leg, Left Gram Stain - Final 04/07/23 15:58 Tissue - Leg, Left Wound Culture - Final No growth aerobically. 04/07/23 15:58 Tissue - Leg, Left Anaerobic Culture - Preliminary No growth in 48 hours. 04/07/23 15:56 Tissue - Leg, Left Gram Stain - Final 04/07/23 15:56 Tissue - Leg, Left Wound Culture - Final No growth aerobically. 04/07/23 15:56 Tissue - Leg, Left Anaerobic Culture - Preliminary No growth in 48 hours. 04/05/23 13:03 Blood Culture (Wb) - Anticubital Right Blood Culture - Preliminary No growth in 48 hours. 04/05/23 12:34 Blood Culture (Wb) - Anticubital Left Blood Culture - Preliminary No growth in 48 hours. Physical Exam Narrative General: Alert, oriented, no apparent distress HEENT: Atraumatic, normocephalic Eyes: Anicteric, normal conjunctiva, extraocular movements grossly intact Neck: Supple Respiratory: Clear to auscultation bilaterally, normal respiratory effort Cardiovascular: Regular rate and rhythm GI: Soft, nontender, nondistended Extremities: Left leg postop and wrapped Musculoskeletal: Moving all extremities Neuro: No overt focal neurological deficits Skin: Left leg wrapped Psych: Cooperative Assessment & Plan Assessment/Plan (1) Ulcer of left lower extremity with muscle involvement without evidence of necrosis: PLAN: Plan 1. Left lower extremity ulceration with infection ? We will continue with vancomycin and Diflucan and consult infectious disease ? We will consult plastic surgery as they recommended her to come in to the hospital, to evaluate for possible surgery ? We will consult wound care ? Apparently wound cultures were repeated at the wound care center ? There is always been a concern for self and harm and that her infections are ultimately self mediated from her psychiatric illness -04/06: Consults pending, cultures pending, continue vancomycin. Given worsened pain and swelling we will get CT lower extremity and check ESR, CRP, lactic acid -04/07: CRP only mildly elevated at 20 and ESR within normal limits, lactic acid also within normal limits. CT of the lower extremity did show air with broad differential, patient does not appear clinically unstable or clinically ill and do not think patient has gas gangrene or necrotizing fasciitis, ID on board, plastics to take patient for debridement -04/08: Status postdebridement on 04/07, follow cultures, continue present antibiotics, blood cultures from admission no growth to date, Intra-Op cultures taken and are pending -04/09: Intra-Op Gram stain's no growth to date, patient remains on vancomycin, infectious disease following, wound VAC placed. We will schedule Tylenol for pain control and attempt to transition to oral pain medication for hopeful DC over the weekend pending cultures in progress. When patient does go home she will have home health with dressing changes, presently scheduled to follow-up with wound center 04/19 -04/10: Patient with limited oral options due to her home medications and risk of serotonin syndrome, oral medication option submitted for prior Auth, pending insurance approval as well as even if it is improved we will need to be affordable or patient will need PICC line and IV antibiotics and placement given her history of self harm via medical means 2. ADHD with depression/borderline personality disorder and conversion disorder/pseudoseizure ? Mood appears to be stable at this time ? We will continue with all of her home medications ? Can encourage continued outpatient psychiatric evaluation and monitoring -04/06: Continue present medications -04/07: will need to continue to follow psychiatry as an outpatient -04/10: Continue supportive care and present medications, overall antibiotics limited due to potential for medication interaction, ID following 3. GERD ? Stable ? Continue with her home medications -04/06: Continue PPI twice daily -04/10: No symptoms continue current management 4. Asthma ? Stable ? Continue with albuterol as needed -04/10: O2 sat stable on room air, no wheezing DVT: Lovenox Time spent in the patient's overall evaluation,decision-making process, review of diagnostic data, adjustment of management, discussion with other providers, nursing nursing and ancillary staff involved in patient's care documentation, 36 minutes Charges/Coding Visit Charges Inpatient E&M: 24428 Subs Hosp L2
[2023-04-10] MEDS: Propranolol 10 MG Tablet PO (08:51)
[2023-04-10] MEDS: Pantoprazole Sodium 40 MG Tablet PO ×2 (08:51→21:40)
[2023-04-10] MEDS: VILAZODONE HYDROCHLORIDE 20 MG TABLET PO (08:51)
[2023-04-10] MEDS: Pramipexole Di-HCl 0.125 MG Tablet 0.25 MG PO (08:52)
[2023-04-10] MEDS: Cholecalciferol (Vit D3) 125 MCG CAPSULE (5,000 UNITS) PO (08:52)
[2023-04-10] MEDS: Magnesium Chloride 64 MG Delay Rel.Tablet 128 MG PO (08:53)
[2023-04-10] MEDS: Loratadine 10 MG Tablet PO (08:53)
[2023-04-10] MEDS: Famotidine 20 MG Tablet 40 MG PO ×2 (08:56→21:40)
[2023-04-10] MEDS: busPIRone 15 MG TABLET 30 MG PO ×2 (08:56→21:40)
[2023-04-10] MEDS: Fluconazole 100 MG Tablet 200 MG PO (08:56)
[2023-04-10] MEDS: Enoxaparin 40 MG/0.4 ML Syringe SC (08:57)
[2023-04-10] MEDS: lamoTRIgine 150 MG Tablet PO (08:58)
[2023-04-10] MEDS: Ferrous Sulfate 325 MG Tablet PO (08:58)
[2023-04-10] MEDS: dilTIAZem CD 240 MG Capsule PO (08:58)
[2023-04-10] MEDS: hydrOXYzine PAM 25 MG Capsule 50 MG PO ×2 (08:59→21:40)
[2023-04-10] MEDS: BREXPIPRAZOLE 4 MG PO (09:21)
[2023-04-10] MEDS: Potassium Chloride Oral Tablet 20 MEQ 40 MEQ PO (11:28)
--- NOTE | 2023-04-10 18:40 | CASEMGMT ---
Social Work Pt was pending insurance approval of antibiotic, authorization denied. Pt provided with a SNF list according to her insurance and geographic location. Pt is requesting [facility] or [facility]. Pt referral sent to [facility] due to not being TCU appropriate/medicaid. Pt is anticipated to trip PASSR screen. Plan: Pt to go to SNF for IV treatment. SW to follow due to PASSR and possibility that patient will not get placement prior to antibiotic treatment completion. Megan March SODIUM METHYLATE OPERATOR, STOCK HOLDER
[2023-04-10] MEDS: Pramipexole Di-HCl 0.125 MG Tablet 0.375 MG PO (20:29)
[2023-04-10] MEDS: MELATONIN 10 MG TABLET 20 MG PO (21:40)
[2023-04-10] MEDS: traZODone 100 MG Tablet 150 MG PO (21:40)
[2023-04-10] MEDS: Doxazosin 1 MG Tablet PO (21:40)
[2023-04-11 02:05] VITALS: BP 121/48; PULSE 76; RESP 18; TEMP 36.6; O2SAT 94
[2023-04-11] MEDS: Acetaminophen 500 MG Tablet 1000 MG PO ×3 (02:11→17:07)
[2023-04-11] MEDS: oxyCODONE 5 MG Tablet PO ×4 (02:11→17:08)
--- NOTE | 2023-04-11 02:25 | EKG12_ITS ---
Test Reason : Palpitations/chest discomfort Blood Pressure : / mmHG Vent. Rate : 075 BPM Atrial Rate : 075 BPM P-R Int : 182 ms QRS Dur : 098 ms QT Int : 404 ms P-R-T Axes : 030 007 033 degrees QTc Int : 451 ms Normal sinus rhythm Normal ECG When compared with ECG of 29-AUG-2022 23:43, Borderline criteria for Inferior infarct are no longer Present Confirmed by EDDIE FRANKLIN, LEANDRO ([id number]), makeup editor SUMAYA FAUSTIN ([id number]) on 05/18/2023 1:36:23 PM Referred By: Danny Confirmed By:LEANDRO MORGAN MD
[2023-04-11] MEDS: Morphine 2 MG/ML Syringe IV ×4 (05:29→20:30)
[2023-04-11 06:30] LABS: Absolute Lymphocyte Count 1.84 X10^3/uL (0.83-4.51); Absolute Neutrophil Count 2.5 X10^3/uL (2.0-7.7); Basophil# 0.03 X10^3/uL; Basophil% 0.6 % (0-1); Eosinophil# 0.23 X10^3/uL; Eosinophils% 4.4 % (0-5); Hematocrit 35.4 % (37-47); Hemoglobin 11.5 g/dL (12.0-15.0); Lymphocyte # 1.84 X10^3/ul (0.83-4.51); Mean Corp Hgb Conc 32.5 g/dL (32-36); Mean Corpuscular Hgb 27.8 pg (27.0-32.0); Mean Corpuscular Volume 85.7 fL (81-99); Mean Platelet Vol. 10.1 fl (6.2-12.0); Monocyte# 0.59 X10^3/uL; Monocyte% 11.2 % (0-10); NRBC Flagged by Analyzer 0.4 % (0-5); Neutrophil # 2.53 X10^3/uL (2.7-7.7); Neutrophil % 48.2 % (47-70); Platelet Count 215 K/mm3 (150-450); RBC Distribution Width CV 13.5 % (11.6-14.6); RBC Distribution Width SD 41.4 fl (35.1-43.9); Red Blood Count 4.13 M/mm3 (4.2-5.4); White Blood Count 5.3 K/mm3 (4.4-11.0)
[2023-04-11 07:02] LABS: Anion Gap 6 (5-15); BUN 12 mg/dL (7-18); BUN/Creat Ratio 14.5 RATIO (10-20); Calcium,Total 8.5 mg/dL (8.5-10.1); Chloride 109 mmol/L (98-107); Creatinine, Serum 0.83 mg/dL (0.55-1.02); EST Glomerular Filtration Rate 91 mL/min (>60); Est Glom Filt Rate - Afr Amer 110 mL/min (>60); Estimated Creatinine Clearance 87.95 ml/min; Glucose 114 mg/dL (74-106); Potassium 3.4 mmol/L (3.5-5.1); Sodium Level 141 mmol/L (136-145)
[2023-04-11] MEDS: Famotidine 20 MG Tablet 40 MG PO ×2 (08:33→22:33)
[2023-04-11] MEDS: Pantoprazole Sodium 40 MG Tablet PO ×2 (08:33→22:33)
[2023-04-11] MEDS: hydrOXYzine PAM 25 MG Capsule 50 MG PO ×2 (08:33→22:32)
[2023-04-11] MEDS: Juven (unflavored) Packet 1 PACKET PO ×2 (08:33→17:07)
[2023-04-11] MEDS: Docusate Sodium 100 MG Capsule PO ×2 (08:33→22:33)
[2023-04-11] MEDS: Propranolol 10 MG Tablet PO ×2 (08:33→22:33)
[2023-04-11] MEDS: VILAZODONE HYDROCHLORIDE 20 MG TABLET PO (08:34)
[2023-04-11] MEDS: Loratadine 10 MG Tablet PO (08:34)
[2023-04-11] MEDS: Ferrous Sulfate 325 MG Tablet PO (08:34)
[2023-04-11] MEDS: Pramipexole Di-HCl 0.125 MG Tablet 0.25 MG PO (08:35)
[2023-04-11] MEDS: lamoTRIgine 150 MG Tablet PO (08:36)
[2023-04-11] MEDS: dilTIAZem CD 240 MG Capsule PO (08:36)
[2023-04-11] MEDS: busPIRone 15 MG TABLET 30 MG PO ×2 (08:36→22:43)
[2023-04-11] MEDS: Magnesium Chloride 64 MG Delay Rel.Tablet 128 MG PO (08:36)
[2023-04-11] MEDS: BREXPIPRAZOLE 4 MG PO (08:37)
[2023-04-11] MEDS: Cholecalciferol (Vit D3) 125 MCG CAPSULE (5,000 UNITS) PO (08:38)
[2023-04-11] MEDS: Fluconazole 100 MG Tablet 200 MG PO (08:38)
--- NOTE | 2023-04-11 08:56 | PCM.PN.HOSP ---
Reason for Visit Reason for Visit: Diagnoses Methicillin resistant Staphylococcus aureus infection, unspecified site (04/05/23) Morbid (severe) obesity due to excess calories (04/05/23) Major depressive disorder, recurrent severe without psychotic features (04/05/23) Borderline personality disorder (04/05/23) Cutaneous abscess of left lower limb (04/05/23) Bullous disorder, unspecified (04/05/23) Non-pressure chronic ulcer of unspecified part of left lower leg with muscle involvement without evidence of necrosis (04/05/23) Personal history of Methicillin resistant Staphylococcus aureus infection (04/05/23) Personal history of other diseases of the musculoskeletal system and connective tissue (04/05/23) Subjective Subjective Patient continues to have pain which is not unexpected, overall doing better. Reports that last night she had 1-2 episodes where she was aware of her heart pounding however did not feel it was racing or irregular, EKG obtained at the time normal sinus rhythm QTc 451 heart rate [address] elevations or depressions Objective Data Objective Data Vital Signs: Vital Signs Temp Pulse Resp BP Pulse Ox O2 Del Method O2 Flow Rate 97.9 F 76 18 121/48 H 94 Room Air 2 04/11/23 02:05 04/11/23 02:05 04/11/23 02:05 04/11/23 02:05 04/11/23 02:05 04/11/23 02:05 04/08/23 02:05 Oxygen Flow Rate (L/min) 2 Oxygen Delivery Method Room Air Weight: 135.624 kg Body Mass Index (BMI) 52.9 Intake & Output: Intake and Output for Last 24 Hours 04/09/23 04/10/23 04/11/23 23:59 23:59 23:59 Intake Total 5310.00 / 5310.00 2781.67 / 2781.67 690 / 690 Balance 5310.00 / 5310.00 2781.67 / 2781.67 690 / 690 Lab / Micro Data 04/11/23 05:50 04/11/23 05:50 Labs: Laboratory Results - last 24 hr 04/11/23 05:50: WBC 5.3, RBC 4.13 L, Hgb 11.5 L, Hct 35.4 L, MCV 85.7, MCH 27.8, MCHC 32.5, RDW Std Deviation 41.4, RDW Coeff of Anastacio 13.5, Plt Count 215, MPV 10.1, Immature Gran % (Auto) 0.600, Neut % (Auto) 48.2, Lymph % (Auto) 35.0, [place] % (Auto) 11.2 H, Eos % (Auto) 4.4, Baso % (Auto) 0.6, Absolute Neuts (auto) 2.5, Absolute Lymphs (auto) 1.84, Nucleated RBC % 0.4, Sodium 141, Potassium 3.4 L, Chloride 109 H, Carbon Dioxide 26.0, Anion Gap 6, BUN 12, Creatinine 0.83, Estim Creat Clear Calc 87.95, Est GFR (MDRD) Af Amer 110, Est GFR (MDRD) Non-Af 91, BUN/Creatinine Ratio 14.5, Glucose 114 H, Calcium 8.5 Micro: Microbiology 04/05/23 13:03 Blood Culture (Wb) - Anticubital Right Blood Culture - Final No growth in 5 days. 04/05/23 12:34 Blood Culture (Wb) - Anticubital Left Blood Culture - Final No growth in 5 days. 04/07/23 15:58 Tissue - Leg, Left Gram Stain - Final 04/07/23 15:58 Tissue - Leg, Left Wound Culture - Final No growth aerobically. 04/07/23 15:58 Tissue - Leg, Left Anaerobic Culture - Preliminary No growth in 48 hours. 04/07/23 15:56 Tissue - Leg, Left Gram Stain - Final 04/07/23 15:56 Tissue - Leg, Left Wound Culture - Final No growth aerobically. 04/07/23 15:56 Tissue - Leg, Left Anaerobic Culture - Preliminary No growth in 48 hours. Physical Exam Narrative General: Alert, oriented, no apparent distress HEENT: Atraumatic, normocephalic Eyes: Anicteric, normal conjunctiva, extraocular movements grossly intact Neck: Supple Respiratory: Clear to auscultation bilaterally, normal respiratory effort Cardiovascular: Regular rate and rhythm GI: Soft, nontender, nondistended Extremities: Left leg postop and wrapped Musculoskeletal: Moving all extremities Neuro: No overt focal neurological deficits Skin: Left leg wrapped Psych: Cooperative Assessment & Plan Assessment/Plan (1) Ulcer of left lower extremity with muscle involvement without evidence of necrosis: PLAN: Plan #Left lower extremity ulceration with infection ? We will continue with vancomycin and Diflucan and consult infectious disease ? We will consult plastic surgery as they recommended her to come in to the hospital, to evaluate for possible surgery ? We will consult wound care ? Apparently wound cultures were repeated at the wound care center ? There is always been a concern for self and harm and that her infections are ultimately self mediated from her psychiatric illness -04/06: Consults pending, cultures pending, continue vancomycin. Given worsened pain and swelling we will get CT lower extremity and check ESR, CRP, lactic acid -04/07: CRP only mildly elevated at 20 and ESR within normal limits, lactic acid also within normal limits. CT of the lower extremity did show air with broad differential, patient does not appear clinically unstable or clinically ill and do not think patient has gas gangrene or necrotizing fasciitis, ID on board, plastics to take patient for debridement -04/08: Status postdebridement on 04/07, follow cultures, continue present antibiotics, blood cultures from admission no growth to date, Intra-Op cultures taken and are pending -04/09: Intra-Op Gram stain's no growth to date, patient remains on vancomycin, infectious disease following, wound VAC placed. We will schedule Tylenol for pain control and attempt to transition to oral pain medication for hopeful DC over the weekend pending cultures in progress. When patient does go home she will have home health with dressing changes, presently scheduled to follow-up with wound center 04/19 -04/10: Patient with limited oral options due to her home medications and risk of serotonin syndrome, oral medication option submitted for prior Auth, pending insurance approval as well as even if it is improved we will need to be affordable or patient will need PICC line and IV antibiotics and placement given her history of self harm via medical means -04/11: Insurance authorization denied antibiotic, patient will be here on IV antibiotics and will need SNF placement, referrals sent #Heart pounding -EKG from overnight unremarkable, will replace potassium, will check magnesium and phosphate -Physical exam unchanged, no other complaints, no other warning signs or symptoms #ADHD with depression/borderline personality disorder and conversion disorder/pseudoseizure ? Mood appears to be stable at this time ? We will continue with all of her home medications ? Can encourage continued outpatient psychiatric evaluation and monitoring -04/06: Continue present medications -04/07: will need to continue to follow psychiatry as an outpatient -04/10: Continue supportive care and present medications, overall antibiotics limited due to potential for medication interaction, ID following #GERD ? Stable ? Continue with her home medications -04/06: Continue PPI twice daily -04/10: No symptoms continue current management #Asthma ? Stable ? Continue with albuterol as needed -04/10: O2 sat stable on room air, no wheezing DVT: Lovenox Charges/Coding Visit Charges Inpatient E&M: 21115 Subs Hosp L2
[2023-04-11 09:16] VITALS: BP 121/82; PULSE 82; RESP 16; TEMP 36.7; O2SAT 96
[2023-04-11] MEDS: Potassium Chloride Oral Tablet 20 MEQ 40 MEQ PO (09:35)
[2023-04-11] MEDS: Enoxaparin 40 MG/0.4 ML Syringe SC (10:12)
[2023-04-11 10:36] LABS: Magnesium 1.7 mg/dL (1.6-2.6); Phosphorus 4.9 mg/dL (2.5-4.9)
[2023-04-11 11:59] VITALS: BP 104/76; PULSE 80; RESP 16; TEMP 36.7; O2SAT 94
[2023-04-11 14:41] LABS: Vancomycin, Trough Level 18.6 ug/mL (5.0-15.0)
[2023-04-11] MEDS: Magnesium Sulfate 4gm/100mL 4 GM/100 ML IV.SOLN. IV (15:19)
[2023-04-11 15:28] VITALS: BP 118/78; PULSE 65; RESP 16; TEMP 36.9; O2SAT 94
--- NOTE | 2023-04-11 16:20 | PCM.RX.CS ---
Consult Antibiotic Management Pharmacy has been consulted to manage selected antiobiotic: Vancomycin Type of Intervention Type of Consult: Follow-up Labs Labs: Sodium 141 mmol/L (136-145) 04/11/23 05:50 Potassium 3.4 mmol/L (3.5-5.1) L 04/11/23 05:50 Chloride 109 mmol/L (98-107) H 04/11/23 05:50 Carbon Dioxide 26.0 mmol/L (21.0-32.0) 04/11/23 05:50 Anion Gap 6 (5-15) 04/11/23 05:50 BUN 12 mg/dL (7-18) 04/11/23 05:50 Creatinine 0.83 mg/dL (0.55-1.02) 04/11/23 05:50 Est GFR (MDRD) Af Amer 110 mL/min (>60) 04/11/23 05:50 Est GFR (MDRD) Non-Af 91 mL/min (>60) 04/11/23 05:50 BUN/Creatinine Ratio 14.5 RATIO (10-20) 04/11/23 05:50 Glucose 114 mg/dL (74-106) H 04/11/23 05:50 Vancomycin Trough 18.6 ug/mL (5.0-15.0) H 04/11/23 13:44 Random Vancomycin 8.7 ug/mL (0.0-15.0) 04/07/23 23:23 Microbiology Microbiology: Microbiology 04/05/23 13:03 Blood Culture (Wb) - Anticubital Right Blood Culture - Final No growth in 5 days. 04/05/23 12:34 Blood Culture (Wb) - Anticubital Left Blood Culture - Final No growth in 5 days. 04/07/23 15:58 Tissue - Leg, Left Gram Stain - Final 04/07/23 15:58 Tissue - Leg, Left Wound Culture - Final No growth aerobically. 04/07/23 15:58 Tissue - Leg, Left Anaerobic Culture - Preliminary No growth in 48 hours. 04/07/23 15:56 Tissue - Leg, Left Gram Stain - Final 04/07/23 15:56 Tissue - Leg, Left Wound Culture - Final No growth aerobically. 04/07/23 15:56 Tissue - Leg, Left Anaerobic Culture - Preliminary No growth in 48 hours. Goal Trough Goal Trough: 15-20 mcg/mL Pharmacy Plan for Drug Dosing Pharmacy Plan for Drug Dosing: VANCOMYCIN LEVEL RECEIVED Current Vancomycin Dose: 2000MG IV Q12HR Number of Doses Received: 5 (of current regimen, 4 prior to trough draw) Vancomycin Level: 18.6 Hours Since Last Dose: 11.5hr Renal Function: 0.83 Renal Function Trend: stable Lab/Micro: No new info Vancomycin Plan/Comments: Patient had a trough drawn which resulted in a value of 18.6 (goal trough 15-20). Patient is within goal trough on current dose. Will continue vancomycin 2000mg IV Q12hr and draw a trough in 2 days to assess dosing at that time. Pending Level: 04/13/23 @5695 Pharmacy Service will continue to monitor and adjust dosing as required.
[2023-04-11] MEDS: Pramipexole Di-HCl 0.125 MG Tablet 0.375 MG PO (20:30)
[2023-04-11] MEDS: 0.9% Saline Lock 10 ML Syringe IV (20:31)
[2023-04-11 21:05] VITALS: BP 115/76; PULSE 86; RESP 16; TEMP 37; O2SAT 95
[2023-04-11] MEDS: Doxazosin 1 MG Tablet PO (22:33)
[2023-04-11] MEDS: MELATONIN 10 MG TABLET 20 MG PO (22:34)
[2023-04-11] MEDS: traZODone 100 MG Tablet 150 MG PO (22:40)
--- NOTE | 2023-04-11 22:45 | NURSING ---
Steve scanned and given in room. Computer didnt take it.
[2023-04-12] VITALS (9 sets, daily range): BP systolic 95–135; BP diastolic 68–91; PULSE 79–125; RESP 16–20; TEMP 36.5–37.9; O2SAT 95–100
[2023-04-12] MEDS: Acetaminophen 500 MG Tablet 1000 MG PO ×3 (01:42→16:31)
[2023-04-12] MEDS: oxyCODONE 5 MG Tablet PO ×4 (01:43→21:43)
[2023-04-12] MEDS: 0.9% Saline Lock 10 ML Syringe IV ×4 (03:46→23:20)
[2023-04-12] MEDS: Morphine 2 MG/ML Syringe IV ×5 (03:46→23:20)
[2023-04-12 06:30] LABS: Absolute Lymphocyte Count 1.84 X10^3/uL (0.83-4.51); Absolute Neutrophil Count 1.9 X10^3/uL (2.0-7.7); Basophil# 0.02 X10^3/uL; Basophil% 0.4 % (0-1); Eosinophil# 0.25 X10^3/uL; Eosinophils% 5.5 % (0-5); Hemoglobin 12.2 g/dL (12.0-15.0); Lymphocyte # 1.84 X10^3/ul (0.83-4.51); Lymphocyte % 40.8 % (19-41); Mean Corp Hgb Conc 33.9 g/dL (32-36); Mean Corpuscular Hgb 28.6 pg (27.0-32.0); Mean Corpuscular Volume 84.5 fL (81-99); Mean Platelet Vol. 9.8 fl (6.2-12.0); Monocyte# 0.48 X10^3/uL; Monocyte% 10.6 % (0-10); NRBC Flagged by Analyzer 0.7 % (0-5); Neutrophil # 1.88 X10^3/uL (2.7-7.7); Neutrophil % 41.8 % (47-70); Platelet Count 220 K/mm3 (150-450); RBC Distribution Width CV 13.5 % (11.6-14.6); RBC Distribution Width SD 41.2 fl (35.1-43.9); Red Blood Count 4.26 M/mm3 (4.2-5.4); White Blood Count 4.5 K/mm3 (4.4-11.0)
[2023-04-12 07:26] LABS: Anion Gap 4 (5-15); BUN 13 mg/dL (7-18); BUN/Creat Ratio 19.6 RATIO (10-20); Calcium,Total 8.6 mg/dL (8.5-10.1); Chloride 110 mmol/L (98-107); Creatinine, Serum 0.66 mg/dL (0.55-1.02); EST Glomerular Filtration Rate 118 mL/min (>60); Est Glom Filt Rate - Afr Amer 142 mL/min (>60); Glucose 106 mg/dL (74-106); Potassium 3.6 mmol/L (3.5-5.1); Sodium Level 143 mmol/L (136-145)
[2023-04-12] MEDS: Juven (unflavored) Packet 1 PACKET PO ×2 (07:51→16:34)
[2023-04-12] MEDS: Magnesium Chloride 64 MG Delay Rel.Tablet 128 MG PO (07:52)
[2023-04-12] MEDS: Propranolol 10 MG Tablet PO ×2 (07:52→21:43)
[2023-04-12] MEDS: busPIRone 15 MG TABLET 30 MG PO ×2 (07:52→21:41)
[2023-04-12] MEDS: Fluconazole 100 MG Tablet 200 MG PO (07:52)
[2023-04-12] MEDS: dilTIAZem CD 240 MG Capsule PO (07:53)
[2023-04-12] MEDS: Pramipexole Di-HCl 0.125 MG Tablet 0.25 MG PO (07:53)
[2023-04-12] MEDS: lamoTRIgine 150 MG Tablet PO (07:53)
[2023-04-12] MEDS: hydrOXYzine PAM 25 MG Capsule 50 MG PO ×2 (07:54→21:41)
[2023-04-12] MEDS: Docusate Sodium 100 MG Capsule PO ×2 (07:54→21:40)
[2023-04-12] MEDS: Enoxaparin 40 MG/0.4 ML Syringe SC (07:55)
[2023-04-12] MEDS: Pantoprazole Sodium 40 MG Tablet PO ×2 (07:55→21:52)
[2023-04-12] MEDS: Cholecalciferol (Vit D3) 125 MCG CAPSULE (5,000 UNITS) PO (07:55)
[2023-04-12] MEDS: Famotidine 20 MG Tablet 40 MG PO ×2 (07:55→21:39)
[2023-04-12] MEDS: VILAZODONE HYDROCHLORIDE 20 MG TABLET PO (07:56)
[2023-04-12] MEDS: BREXPIPRAZOLE 4 MG PO (07:57)
[2023-04-12] MEDS: Ferrous Sulfate 325 MG Tablet PO (07:57)
[2023-04-12] MEDS: Loratadine 10 MG Tablet PO (07:58)
--- NOTE | 2023-04-12 12:03 | NURSING ---
changed wound vac canister. 450 cc drainage in canister noted.
--- NOTE | 2023-04-12 16:17 | PN.HOSP_ITS ---
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 Patient seen at bedside this morning. Patient reports continued left leg pain this morning, similar to yesterday. States the IV morphine has been helpful, p.o. medications have not been very helpful for her. Continues to report intermittent chest pounding, similar to previous days. Denies any fevers or chills. Has been able to ambulate to the restroom and back without significant issue. No other acute concerns. Objective Data Objective Data Vital Signs: Vital Signs Temp Pulse Resp BP Pulse Ox O2 Del Method O2 Flow Rate 98.3 F 81 16 95/68 95 Room Air 2 04/12/23 15:09 04/12/23 15:04/12/23 15:04/12/23 15:04/12/23 15:04/12/23 15:04/12/23 04:05 Oxygen Flow Rate (L/min) 2 Oxygen Delivery Method Room Air Weight: 135.624 kg Body Mass Index (BMI) 52.9 Intake & Output: Intake and Output for Last 24 Hours 04/10/23 04/11/23 04/12/23 23:59 23:59 23:59 Intake Total 2781.67 / 2781.67 0 / 2360 1370 / 1370 Balance 2781.67 / 2781.67 2079 / 0 1370 / 1370 Lab / Micro Data 04/12/23 06:07 04/12/23 06:07 Labs: Laboratory Results - last 24 hr 04/12/23 06:07: WBC 4.5, RBC 4.26, Hgb 12.2, Hct 36.0 L, MCV 84.5, MCH 28.6, MCHC 33.9, RDW Std Deviation 41.2, RDW Coeff of Anastacio 13.5, Plt Count 220, MPV 9.8, Immature Gran % (Auto) 0.900, Neut % (Auto) 41.8 L, Lymph % (Auto) 40.8, [place] % (Auto) 10.6 H, Eos % (Auto) 5.5 H, Baso % (Auto) 0.4, Absolute Neuts ( auto) 1.9 L, Absolute Lymphs (auto) 1.84, Nucleated RBC % 0.7, Sodium 143, Potassium 3.6, Chloride 110 H, Carbon Dioxide 29.0, Anion Gap 4 L, BUN 13, Creatinine 0.66, Estim Creat Clear Calc 110.60, Est GFR (MDRD) Af Amer 142, Est GFR (MDRD) Non-Af 118, BUN/Creatinine Ratio 19.6, Glucose 106, Calcium 8.6 Micro: Microbiology 04/07/23 15:56 Tissue - Leg, Left Gram Stain - Final 04/07/23 15:56 Tissue - Leg, Left Wound Culture - Final No growth aerobically. 04/07/23 15:56 Tissue - Leg, Left Anaerobic Culture - Final No growth in 5 days. 04/07/23 15:58 Tissue - Leg, Left Gram Stain - Final 04/07/23 15:58 Tissue - Leg, Left Wound Culture - Final No growth aerobically. 04/07/23 15:58 Tissue - Leg, Left Anaerobic Culture - Final No growth in 5 days. 04/05/23 13:03 Blood Culture (Wb) - Anticubital Right Blood Culture - Final No growth in 5 days. 04/05/23 12:34 Blood Culture (Wb) - Anticubital Left Blood Culture - Final No growth in 5 days. Physical Exam Const alert and oriented x3 Constitutional Narrative: Sitting comfortably in bed, morbidly obese, conversing normally, no acute distress. General Appearance: cooperative and comfortable HEENT normocephalic, head/scalp atraumatic, hearing grossly normal bilaterally, nasal mucous membranes and turbinates normal and moist oral mucous membranes Eyes PERRL, EOMs intact bilaterally and conjunctivae normal Neck full ROM, no lymphadenopathy and supple Lymph Lymphatic: no lymphadenopathy noted Chest inspection of chest normal Resp normal respiratory effort, normal air movement, no use of accessory muscles and clear to auscultation bilaterally Cardio regular rate, regular rhythm, no murmurs and peripheral pulses 2+ throughout GI normal to inspection, nondistended, normoactive bowel sounds, soft to palpation, non-tender and non-distended Back/Spine normal ROM Extremity full ROM Extremity Narrative: Left lower leg wrap in place. Skin no rashes or lesions noted Psych mental status grossly normal Assessment & Plan Assessment/Plan (1) Abscess of left leg: PLAN: Plan Patient is a 22-year-old female with history of factitious disorder, anxiety/depression, borderline personality disorder and asthma who presented to [facility] on 04/05/2023 with worsening left lower extremity wound. 1. Left lower extremity ulceration with infection Follows outpatient with plastic surgery, was planning on debridement but sent in by plastic surgery from the office due to concern for worsening infection. Notably had outpatient wound cultures taken that grew Enterococcus and corynebacterium, was on doxycycline and Diflucan prior to admission. CT on admission showed gas in the tissue. S/p I&D with Dr. Alfonso (plastic surgery) in OR on 04/07. Wound cultures grew methicillin-resistant coag negative Staphylococcus. Patient notably has history of factitious disorder with self- harm as noted below, with concern that current infection was self-induced. ?ID following, appreciate assistance. Continue IV vancomycin and p.o. fluconazole. Patient unfortunately has limited oral antibiotic options due to her home medications and risk of serotonin syndrome; insurance denied only feasible oral option. Will require IV antibiotics and will need SNF placement. IV antibiotic course length to be determined. Case management following for discharge needs. Continue scheduled Tylenol and IV morphine every 3 hours as needed for pain control. 2. Heart pounding ? Unclear etiology. Patiently has consistently reported this over the past several days. EKG unremarkable, electrolytes replaced. No concerning physical exam findings. Monitor. 3. ADHD with depression/borderline personality disorder and conversion disorder/pseudoseizures ? Mood appears to be stable at this time. Follows with psychiatry outpatient, on extensive list of home medications. All home medications continued. Monitor. 4. Asthma ? Stable. Continue home Singulair and short acting inhaler as needed. 5. GERD ? Continue home PPI. DVT prophylaxis: Lovenox CODE STATUS: Full code, verified Expected disposition: SNF, TBD Total clinical time spent by myself addressing the patient's medical issues, reviewing all the data, and collaborating with patient's care team: 35 minutes. Charges/Coding Visit Charges Inpatient E&M: 05118 Subs Hosp L2
[2023-04-12] MEDS: Pramipexole Di-HCl 0.125 MG Tablet 0.375 MG PO (21:39)
[2023-04-12] MEDS: Doxazosin 1 MG Tablet PO (21:40)
[2023-04-12] MEDS: MELATONIN 10 MG TABLET 20 MG PO (21:40)
[2023-04-12] MEDS: traZODone 100 MG Tablet 150 MG PO (21:43)
[2023-04-13] VITALS (7 sets, daily range): BP systolic 94–118; BP diastolic 43–74; PULSE 99–122; RESP 16–18; TEMP 37–38.7; O2SAT 92–97
[2023-04-13] MEDS: Acetaminophen 500 MG Tablet 1000 MG PO ×3 (02:17→17:07)
[2023-04-13] MEDS: Morphine 2 MG/ML Syringe IV ×3 (02:19→10:35)
[2023-04-13] MEDS: Ondansetron 4 MG/2 ML Vial IV ×2 (02:27→16:16)
[2023-04-13] MEDS: 0.9% Saline Lock 10 ML Syringe IV ×4 (02:30→20:58)
[2023-04-13 06:25] LABS: Absolute Lymphocyte Count 0.96 X10^3/uL (0.83-4.51); Basophil# 0.03 X10^3/uL; Basophil% 0.3 % (0-1); Eosinophil# 0.27 X10^3/uL; Hematocrit 37.8 % (37-47); Hemoglobin 12.5 g/dL (12.0-15.0); Lymphocyte # 0.96 X10^3/ul (0.83-4.51); Lymphocyte % 10.8 % (19-41); Mean Corp Hgb Conc 33.1 g/dL (32-36); Mean Corpuscular Hgb 27.9 pg (27.0-32.0); Mean Corpuscular Volume 84.4 fL (81-99); Mean Platelet Vol. 9.8 fl (6.2-12.0); Monocyte# 0.54 X10^3/uL; Monocyte% 6.1 % (0-10); NRBC Flagged by Analyzer 0.5 % (0-5); Neutrophil # 7.02 X10^3/uL (2.7-7.7); Neutrophil % 79.2 % (47-70); Platelet Count 216 K/mm3 (150-450); RBC Distribution Width CV 13.7 % (11.6-14.6); RBC Distribution Width SD 41.7 fl (35.1-43.9); Red Blood Count 4.48 M/mm3 (4.2-5.4); White Blood Count 8.9 K/mm3 (4.4-11.0)
[2023-04-13 07:09] LABS: Anion Gap 3 (5-15); BUN 17 mg/dL (7-18); BUN/Creat Ratio 20.7 RATIO (10-20); Calcium,Total 8.8 mg/dL (8.5-10.1); Chloride 105 mmol/L (98-107); Creatinine, Serum 0.82 mg/dL (0.55-1.02); EST Glomerular Filtration Rate 92 mL/min (>60); Est Glom Filt Rate - Afr Amer 111 mL/min (>60); Estimated Creatinine Clearance 89.02 ml/min; Glucose 125 mg/dL (74-106); Potassium 3.5 mmol/L (3.5-5.1); Sodium Level 137 mmol/L (136-145)
--- NOTE | 2023-04-13 09:26 | CASEMGMT ---
Discharge Planning Patient was declined by WVM d/t age. SW updated. Cheyanne Stout, Discharge Planning Asst.
[2023-04-13] MEDS: busPIRone 15 MG TABLET 30 MG PO ×2 (09:41→22:10)
[2023-04-13] MEDS: Pramipexole Di-HCl 0.125 MG Tablet 0.25 MG PO (09:41)
[2023-04-13] MEDS: hydrOXYzine PAM 25 MG Capsule 50 MG PO ×2 (09:42→22:09)
[2023-04-13] MEDS: Famotidine 20 MG Tablet 40 MG PO ×2 (09:42→22:10)
[2023-04-13] MEDS: Enoxaparin 40 MG/0.4 ML Syringe SC (09:42)
[2023-04-13] MEDS: Magnesium Chloride 64 MG Delay Rel.Tablet 128 MG PO (09:42)
[2023-04-13] MEDS: Pantoprazole Sodium 40 MG Tablet PO ×2 (09:42→22:09)
[2023-04-13] MEDS: dilTIAZem CD 240 MG Capsule PO (09:43)
[2023-04-13] MEDS: lamoTRIgine 150 MG Tablet PO (09:43)
[2023-04-13] MEDS: Fluconazole 100 MG Tablet 200 MG PO (09:43)
[2023-04-13] MEDS: Ferrous Sulfate 325 MG Tablet PO (09:43)
[2023-04-13] MEDS: Cholecalciferol (Vit D3) 125 MCG CAPSULE (5,000 UNITS) PO (09:43)
[2023-04-13] MEDS: Docusate Sodium 100 MG Capsule PO ×2 (09:43→22:10)
[2023-04-13] MEDS: Propranolol 10 MG Tablet PO (09:43)
[2023-04-13] MEDS: Juven (unflavored) Packet 1 PACKET PO ×2 (09:43→17:07)
[2023-04-13] MEDS: Loratadine 10 MG Tablet PO (09:43)
[2023-04-13] MEDS: BREXPIPRAZOLE 4 MG PO (09:54)
--- NOTE | 2023-04-13 10:22 | CASEMGMT ---
Addendum entered by Luly Agustin 04/13/23 11:10: [facility] accepted pt back for care. Pt aware. Addendum entered by Luly Agustin 04/13/23 10:50: [facility] accepted pt for services. Original Note: RAUDEL MELO made aware that pt will not need antibiotics at dc. Spoke with hospitalist, pt will dc tomorrow. Spoke with wound nurse and wound vac will be changed today. RAUDEL MELO into pt room, pt agreeable to going home with [facility]. She is aware that RAUDEL MELO will make referral again and make her aware of acceptance. Referral sent via [facility]port.
--- NOTE | 2023-04-13 10:30 | PCM.PN.ID ---
Physical Exam Narrative Pain is excruciating. Low grade temp overnight. Mild nausea. Const alert and no apparent distress General Appearance: cooperative Resp normal air movement and clear to auscultation bilaterally Cardio regular rate and regular rhythm GI soft to palpation, non-tender and non-distended Skin Skin Narrative: wound vac in place ID ID: Route of nutrition/ use of supplements: [] Nutritional Intake: [] IV Site: [] Hu Catheter: [] Assessment & Plan Assessment/Plan (1) History of necrotizing fasciitis: (2) Serous bulla of skin: PLAN: H/o self harm and necrotizing fasciitis. On vanc, CT showed gas in tissue, mild presentation. Has been on doxy/fluc as an outpt. Taken to OR 04/07/[address] Alfonso for I&D. Wound cx here with MR-CoNS x2. Cont vanc, also on fluc. At this point, if wound doing well, she is day 7 of abx from surgery, plan will be to cont vanc while inpatient, then ok for home off of abx. Will follow, d/w adult protective caseworker and primary team
[2023-04-13 14:06] LABS: Vancomycin, Trough Level 19.4 ug/mL (5.0-15.0)
[2023-04-13] MEDS: oxyCODONE 5 MG Tablet PO (14:12)
--- NOTE | 2023-04-13 14:22 | PCM.RX.CS ---
Consult Antibiotic Management Pharmacy has been consulted to manage selected antiobiotic: Vancomycin Type of Intervention Type of Consult: Follow-up Suspected Infection Suspected Infection: Skin/Soft tissue Prior Doses of Antibiotics Prior Doses of Antibiotics Received/Current Regimen: Vancomycin 2000 mg Q12H given 04/11 @ 1409, 04/12 @ 0134, 04/12 @ 1407, 04/13 @ 0218 Labs Labs: Sodium 137 mmol/L (136-145) 04/13/23 06:05 Potassium 3.5 mmol/L (3.5-5.1) 04/13/23 06:05 Chloride 105 mmol/L (98-107) 04/13/23 06:05 Carbon Dioxide 29.0 mmol/L (21.0-32.0) 04/13/23 06:05 Anion Gap 3 (5-15) L 04/13/23 06:05 BUN 17 mg/dL (7-18) 04/13/23 06:05 Creatinine 0.82 mg/dL (0.55-1.02) 04/13/23 06:05 Est GFR (MDRD) Af Amer 111 mL/min (>60) 04/13/23 06:05 Est GFR (MDRD) Non-Af 92 mL/min (>60) 04/13/23 06:05 BUN/Creatinine Ratio 20.7 RATIO (10-20) H 04/13/23 06:05 Glucose 125 mg/dL (74-106) H 04/13/23 06:05 Vancomycin Trough 19.4 ug/mL (5.0-15.0) H 04/13/23 13:21 Random Vancomycin 8.7 ug/mL (0.0-15.0) 04/07/23 23:23 Microbiology Microbiology: Microbiology 04/07/23 15:56 Tissue - Leg, Left Gram Stain - Final 04/07/23 15:56 Tissue - Leg, Left Wound Culture - Final No growth aerobically. 04/07/23 15:56 Tissue - Leg, Left Anaerobic Culture - Final No growth in 5 days. 04/07/23 15:58 Tissue - Leg, Left Gram Stain - Final 04/07/23 15:58 Tissue - Leg, Left Wound Culture - Final No growth aerobically. 04/07/23 15:58 Tissue - Leg, Left Anaerobic Culture - Final No growth in 5 days. 04/05/23 13:03 Blood Culture (Wb) - Anticubital Right Blood Culture - Final No growth in 5 days. 04/05/23 12:34 Blood Culture (Wb) - Anticubital Left Blood Culture - Final No growth in 5 days. Dosing Weight Weight used for dosin.62 kg Estimated Creatinine Clearance Estimated Creatinine Clearance: 89 Goal Trough Goal Trough: 15-20 mcg/mL Pharmacy Plan for Drug Dosing Pharmacy Plan for Drug Dosing: Continue vancomycin 2000 mg Q12H, trough within range x2, trough in 4 days. Pharmacy Service will continue to monitor and adjust dosing as required. Follow-Up Labs Follow-Up Labs: Trough: Vancomycin Date/Time Labs Ordered Labs to be done on [date and time ordered]: 04/17/23 @ 8922
--- NOTE | 2023-04-13 15:44 | PN.HOSP_ITS ---
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 Patient seen at bedside this morning. States that she spiked a low-grade fever overnight and felt like her heart was racing. Continues to have moderate pain of the left lower extremity, improves with administration of IV morphine. She currently feels improved from overnight, denies feeling like her heart is racing right now. Denies any fevers or chills. No other acute concerns. Objective Data Objective Data Vital Signs: Vital Signs Temp Pulse Resp BP Pulse Ox O2 Del Method O2 Flow Rate 99.1 F 99 18 102/66 95 Room Air 2 04/13/23 14:43 04/13/23 14:43 04/13/23 14:43 04/13/23 14:43 04/13/23 14:43 04/13/23 14:43 04/12/23 04:05 Oxygen Flow Rate (L/min) 2 Oxygen Delivery Method Room Air Weight: 135.624 kg Body Mass Index (BMI) 52.9 Intake & Output: Intake and Output for Last 24 Hours 04/11/23 04/12/23 04/13/23 23:59 23:59 23:59 Intake Total 2079 2160 / 2160 840 / 840 Balance 2079 / 216 840 / 840 Lab / Micro Data 04/13/23 06:05 04/13/23 06:05 Labs: Laboratory Results - last 24 hr 04/13/23 06:05: WBC 8.9, RBC 4.48, Hgb 12.5, Hct 37.8, MCV 84.4, MCH 27.9, MCHC 33.1, RDW Std Deviation 41.7, RDW Coeff of Anastacio 13.7, Plt Count 216, MPV 9.8, Immature Gran % (Auto) 0.600, Neut % (Auto) 79.2 H, Lymph % (Auto) 10.8 L, [place] % (Auto) 6.1, Eos % (Auto) 3.0, Baso % (Auto) 0.3, Absolute Neuts (auto) 7.0, Ab solute Lymphs (auto) 0.96, Nucleated RBC % 0.5, Sodium 137, Potassium 3.5, Chloride 105, Carbon Dioxide 29.0, Anion Gap 3 L, BUN 17, Creatinine 0.82, Estim Creat Clear Calc 89.02, Est GFR (MDRD) Af Amer 111, Est GFR (MDRD) Non-Af 92, BUN/Creatinine Ratio 20.7 H, Glucose 125 H, Calcium 8.8 04/13/23 13:21: Vancomycin Trough 19.4 H Micro: Microbiology 04/07/23 15:56 Tissue - Leg, Left Gram Stain - Final 04/07/23 15:56 Tissue - Leg, Left Wound Culture - Final No growth aerobically. 04/07/23 15:56 Tissue - Leg, Left Anaerobic Culture - Final No growth in 5 days. 04/07/23 15:58 Tissue - Leg, Left Gram Stain - Final 04/07/23 15:58 Tissue - Leg, Left Wound Culture - Final No growth aerobically. 04/07/23 15:58 Tissue - Leg, Left Anaerobic Culture - Final No growth in 5 days. 04/05/23 13:03 Blood Culture (Wb) - Anticubital Right Blood Culture - Final No growth in 5 days. 04/05/23 12:34 Blood Culture (Wb) - Anticubital Left Blood Culture - Final No growth in 5 days. Physical Exam Const alert and oriented x3 Constitutional Narrative: Sitting comfortably in bed, morbidly obese, conversing normally, no acute distr ess. General Appearance: cooperative and comfortable HEENT normocephalic, head/scalp atraumatic, hearing grossly normal bilaterally, nasal mucous membranes and turbinates normal and moist oral mucous membranes Eyes PERRL, EOMs intact bilaterally and conjunctivae normal Neck full ROM, no lymphadenopathy and supple Lymph Lymphatic: no lymphadenopathy noted Chest inspection of chest normal Resp normal respiratory effort, normal air movement, no use of accessory muscles and clear to auscultation bilaterally Cardio regular rate, regular rhythm, no murmurs and peripheral pulses 2+ throughout GI normal to inspection, nondistended, normoactive bowel sounds, soft to palpation, non-tender and non-distended Back/Spine normal ROM Extremity full ROM Extremity Narrative: Left lower leg wrap in place. Skin no rashes or lesions noted Psych mental status grossly normal Assessment & Plan Assessment/Plan (1) Abscess of left leg: PLAN: Plan Patient is a 22-year-old female with history of factitious disorder, anxiety/depression, borderline personality disorder and asthma who presented to [facility] on 04/05[facility]2023 with worsening left lower extremity wound. 1. Left lower extremity ulceration with infection Follows outpatient with plastic surgery, was planning on debridement but sent in by plastic surgery from the office due to concern for worsening infection. Notably had outpatient wound cultures taken that grew Enterococcus and corynebacterium, was on doxycycline and Diflucan prior to admission. CT on admission showed gas in the tissue. S/p I&D with Dr. Alfonso (plastic surgery) in OR on 04/07. Wound cultures grew methicillin-resistant coag negative Staphylococcus. Patient notably has history of factitious disorder with self- harm as noted below, with concern that current infection was self-induced. ?ID following, appreciate assistance. [facility] Per ID, can continue vancomycin while here but will be okay to go home without further antibiotics as long as left lower extremity wound remains stable. Continue scheduled Tylenol and IV morphine every 3 hours as needed for pain control. We will add low-dose p.o. Dilaudid as needed today, with plans to send home with short course on discharge. Likely discharge home tomorrow. 2. Heart pounding ? Unclear etiology. Patiently has consistently reported this over the past several days. EKG unremarkable, electrolytes replaced. No concerning physical exam findings. Monitor. 3. ADHD with depression/borderline personality disorder and conversion disorder/pseudoseizures ? Mood appears to be stable at this time. Follows with psychiatry outpatient, on extensive list of home medications. All home medications continued. Monitor. 4. Asthma ? Stable. Continue home Singulair and short acting inhaler as needed. 5. GERD ? Continue home PPI. DVT prophylaxis: Lovenox CODE STATUS: Full code, verified Expected disposition: Home, tomorrow Total clinical time spent by myself addressing the patient's medical issues, reviewing all the data, and collaborating with patient's care team: 35 minutes. Charges/Coding Visit Charges Inpatient E&M: 89059 Subs Hosp L2
[2023-04-13] MEDS: HYDROmorphone 2 MG TABLET PO (16:16)
[2023-04-13] MEDS: Ibuprofen 600 MG Tablet PO (18:27)
--- NOTE | 2023-04-13 20:37 | PCM.HOSP.N ---
Hospitalist Note Patient with fever, tachycardia, reporting pain. CBC without marked WBC elevation. UA/UCx pending, Bld Cx x 2 requested including one from midline. Will also obtain CXR PA and Lateral to be cautious. VAC change today per Wound RN without reported concerning findings. RN verifying VAC to appropriate suction. Will request repeat evaluation per Surgery service in AM and continue evaluation as noted. Will administer 1L NS now and dose with dilaudid 0.5 x 1 given pain complaint.
[2023-04-13] MEDS: 0.9% Normal Saline 1,000 ML 999 ML IV (20:57)
[2023-04-13] MEDS: HYDROmorphone 0.5 MG/0.5 ML SYRINGE IV (20:58)
[2023-04-13] MEDS: proCHLORPERazine 10 MG/2 ML Vial IV (21:02)
[2023-04-13] MEDS: Doxazosin 1 MG Tablet PO (22:10)
[2023-04-13] MEDS: MELATONIN 10 MG TABLET 20 MG PO (22:10)
[2023-04-13] MEDS: Pramipexole Di-HCl 0.125 MG Tablet 0.375 MG PO (22:11)
[2023-04-13] MEDS: traZODone 100 MG Tablet 150 MG PO (22:14)
[2023-04-14] VITALS (8 sets, daily range): BP systolic 94–115; BP diastolic 58–72; PULSE 82–118; RESP 16–18; TEMP 36.1–38.8; O2SAT 94–97
[2023-04-14] MEDS: Acetaminophen 500 MG Tablet 1000 MG PO ×3 (00:42→18:08)
--- NOTE | 2023-04-14 04:42 | NURSING ---
During time with pt. at 0100, IV tubing was kinking due to being bent and this nurse placed an elastic sleeve over the top of pt's midline site - right forearm. This nurse entered pt's room at 0400 to collect vitals and complete morning assessment and while nurse was taking pt's blood pressure pt reports that she thinks her midline is leaking. Upon assessment of site, it was noted that the midline site to right forearm, was indeed pulled out and leaking. Secure device was still attached and securing midline but beneath the dressing, the tubing had pulled out from site. Site was not red, swollen and did not have any other abnormalities. Midline removed without any issues.
[2023-04-14 05:25] LABS: Bacteria 0 SEEN /hpf (None Seen); Mucous, Urine 0 SEEN /hpf (<or=2+); Red Blood Cells-Urine 0 SEEN /hpf (0-5); Squamous Epithelial Cells - UA 0 SEEN /hpf (5-10); White Blood Cells 0 SEEN /hpf (0-5)
[2023-04-14 05:26] LABS: Color, Urine Yellow (Yellow); Glucose, Dipstick Normal (Normal); Ketone-Dipstick 5 mg/dl (Negative); Leukocyte Esterase-Dipstick Negative /ul (Negative); Nitrite-Dipstick Negative (Negative); Occult Blood-Urine Negative /ul (Negative); Protein-Dipstick Negative (Negative); Specific Gravity, Urine 1.005 (1.002-1.030); Urine Bilirubin Dipstick Negative (Negative); Urine Clarity Clear (Clear); Urine Urobilinogen Normal (Normal)
[2023-04-14 06:20] LABS: Absolute Lymphocyte Count 1.43 X10^3/uL (0.83-4.51); Absolute Neutrophil Count 3.3 X10^3/uL (2.0-7.7); Basophil# 0.04 X10^3/uL; Basophil% 0.7 % (0-1); Eosinophil# 0.26 X10^3/uL; Eosinophils% 4.5 % (0-5); Hematocrit 35.7 % (37-47); Hemoglobin 11.7 g/dL (12.0-15.0); Lymphocyte # 1.43 X10^3/ul (0.83-4.51); Lymphocyte % 24.9 % (19-41); Mean Corp Hgb Conc 32.8 g/dL (32-36); Mean Corpuscular Hgb 27.8 pg (27.0-32.0); Mean Corpuscular Volume 84.8 fL (81-99); Monocyte# 0.74 X10^3/uL; Monocyte% 12.9 % (0-10); NRBC Flagged by Analyzer 0.3 % (0-5); Neutrophil # 3.25 X10^3/uL (2.7-7.7); Neutrophil % 56.5 % (47-70); Platelet Count 165 K/mm3 (150-450); RBC Distribution Width CV 13.8 % (11.6-14.6); RBC Distribution Width SD 42.4 fl (35.1-43.9); Red Blood Count 4.21 M/mm3 (4.2-5.4); White Blood Count 5.8 K/mm3 (4.4-11.0)
[2023-04-14 06:48] LABS: Anion Gap 5 (5-15); BUN 15 mg/dL (7-18); BUN/Creat Ratio 22.9 RATIO (10-20); Calcium,Total 8.4 mg/dL (8.5-10.1); Chloride 111 mmol/L (98-107); Creatinine, Serum 0.66 mg/dL (0.55-1.02); EST Glomerular Filtration Rate 119 mL/min (>60); Est Glom Filt Rate - Afr Amer 144 mL/min (>60); Glucose 95 mg/dL (74-106); Potassium 3.4 mmol/L (3.5-5.1); Sodium Level 143 mmol/L (136-145)
[2023-04-14] MEDS: Ferrous Sulfate 325 MG Tablet PO (08:47)
[2023-04-14] MEDS: Juven (unflavored) Packet 1 PACKET PO ×2 (08:48→18:08)
[2023-04-14] MEDS: busPIRone 15 MG TABLET 30 MG PO ×2 (08:50→21:09)
[2023-04-14] MEDS: Loratadine 10 MG Tablet PO (08:52)
[2023-04-14] MEDS: dilTIAZem CD 240 MG Capsule PO (08:52)
[2023-04-14] MEDS: Docusate Sodium 100 MG Capsule PO ×2 (08:53→21:09)
[2023-04-14] MEDS: Fluconazole 100 MG Tablet 200 MG PO (08:55)
[2023-04-14] MEDS: Propranolol 10 MG Tablet PO ×2 (08:56→21:09)
[2023-04-14] MEDS: lamoTRIgine 150 MG Tablet PO (08:57)
[2023-04-14] MEDS: Enoxaparin 40 MG/0.4 ML Syringe SC (08:57)
[2023-04-14] MEDS: Magnesium Chloride 64 MG Delay Rel.Tablet 128 MG PO (08:58)
[2023-04-14] MEDS: Pramipexole Di-HCl 0.125 MG Tablet 0.25 MG PO (09:00)
[2023-04-14] MEDS: Famotidine 20 MG Tablet 40 MG PO ×2 (09:01→21:10)
[2023-04-14] MEDS: Pantoprazole Sodium 40 MG Tablet PO ×2 (09:02→21:09)
[2023-04-14] MEDS: hydrOXYzine PAM 25 MG Capsule 50 MG PO ×2 (09:02→21:09)
[2023-04-14] MEDS: Cholecalciferol (Vit D3) 125 MCG CAPSULE (5,000 UNITS) PO (09:03)
[2023-04-14] MEDS: HYDROmorphone 2 MG TABLET PO ×4 (09:14→21:00)
--- NOTE | 2023-04-14 10:55 | RAD_ITS ---
STUDY: X-RAY CHEST REASON FOR EXAM: Female, 22 years old. Fever. TECHNIQUE: Frontal and lateral views of the chest. COMPARISON: Chest dated January 06, 2022. FINDINGS: Lungs are now clear and patchy opacities at both bases on the prior study have resolved. There is no demonstrated pleural abnormality. Normal size heart. Normal mediastinum and melissa. Normal visualized pulmonary arteries. Normal visualized aortic arch and descending thoracic aorta. Normal visualized thoracic spine. Normal visualized ribs, clavicles, and shoulders. No abnormality of the visualized soft tissue structures of the upper abdomen. RAD/Chest PA and Lateral IMPRESSION: Normal x-ray examination of the chest. Electronically Signed: Yao Serna MD at 11:46 EDT ,
[2023-04-14] MEDS: proMETHazine 25 MG Tablet PO (12:59)
[2023-04-14] MEDS: 0.9% Saline Lock 10 ML Syringe IV (14:16)
--- NOTE | 2023-04-14 15:41 | PCM.PN.HOSP ---
Reason for Visit Reason for Visit: Diagnoses Methicillin resistant Staphylococcus aureus infection, unspecified site (04/05/23) Morbid (severe) obesity due to excess calories (04/05/23) Major depressive disorder, recurrent severe without psychotic features (04/05/23) Borderline personality disorder (04/05/23) Cutaneous abscess of left lower limb (04/05/23) Bullous disorder, unspecified (04/05/23) Non-pressure chronic ulcer of unspecified part of left lower leg with muscle involvement without evidence of necrosis (04/05/23) Personal history of Methicillin resistant Staphylococcus aureus infection (04/05/23) Personal history of other diseases of the musculoskeletal system and connective tissue (04/05/23) Subjective Subjective Patient had event overnight with fever, tachycardia and was reporting pain at the left lower leg wound site. See Dr. Reese's note for further details. Patient seen this morning at bedside. She was sitting comfortably on the side of the bed, in no acute distress. States she continues to have some pain in her leg but it is improved this morning. She denies any fevers or chills. She continues to feel like her heart is pounding intermittently. No other acute concerns. Objective Data Objective Data Vital Signs: Vital Signs Temp Pulse Resp BP Pulse Ox O2 Del Method O2 Flow Rate 98.6 F 94 16 97/58 L 95 Room Air 2 04/14/23 13:10 04/14/23 13:10 04/14/23 13:10 04/14/23 13:10 04/14/23 13:10 04/14/23 13:10 04/12/23 04:05 Oxygen Flow Rate (L/min) 2 Oxygen Delivery Method Room Air Weight: 135.624 kg Body Mass Index (BMI) 52.9 Intake & Output: Intake and Output for Last 24 Hours 04/12/23 04/13/23 04/14/23 23:59 23:59 23:59 Intake Total 2160 / 2160 2380 / 2580 1417.58 / 1417.58 Balance 2160 / 2160 2380 / 2580 1417.58 / 1417.58 Lab / Micro Data 04/14/23 06:05 04/14/23 06:05 Labs: Laboratory Results - last 24 hr 04/14/23 05:00: Urine Color Yellow, Urine Clarity Clear, Urine pH 7.0, Ur Specific [place] 1.005, Urine Protein Negative, Urine Glucose (UA) Normal, Urine Ketones 5 H, Urine Occult Blood Negative, Urine Nitrite Negative, Urine Bilirubin Negative, Urine Urobilinogen Normal, Ur Leukocyte Esterase Negative, Urine RBC 0 SEEN, Urine WBC 0 SEEN, Ur Squamous Epith Cells 0 SEEN, Urine Bacteria 0 SEEN, Urine Mucus 0 SEEN 04/14/23 06:05: WBC 5.8, RBC 4.21, Hgb 11.7 L, Hct 35.7 L, MCV 84.8, MCH 27.8, MCHC 32.8, RDW Std Deviation 42.4, RDW Coeff of Anastacio 13.8, Plt Count 165, MPV 10.0, Immature Gran % (Auto) 0.500, Neut % (Auto) 56.5, Lymph % (Auto) 24.9, [place] % (Auto) 12.9 H, Eos % (Auto) 4.5, Baso % (Auto) 0.7, Absolute Neuts (auto) 3.3, Absolute Lymphs (auto) 1.43, Nucleated RBC % 0.3, Sodium 143, Potassium 3.4 L, Chloride 111 H, Carbon Dioxide 27.0, Anion Gap 5, BUN 15, Creatinine 0.66, Estim Creat Clear Calc 110.60, Est GFR (MDRD) Af Amer 144, Est GFR (MDRD) Non-Af 119, BUN/Creatinine Ratio 22.9 H, Glucose 95, Calcium 8.4 L Micro: Microbiology 04/07/23 15:56 Tissue - Leg, Left Gram Stain - Final 04/07/23 15:56 Tissue - Leg, Left Wound Culture - Final No growth aerobically. 04/07/23 15:56 Tissue - Leg, Left Anaerobic Culture - Final No growth in 5 days. 04/07/23 15:58 Tissue - Leg, Left Gram Stain - Final 04/07/23 15:58 Tissue - Leg, Left Wound Culture - Final No growth aerobically. 04/07/23 15:58 Tissue - Leg, Left Anaerobic Culture - Final No growth in 5 days. 04/05/23 13:03 Blood Culture (Wb) - Anticubital Right Blood Culture - Final No growth in 5 days. 04/05/23 12:34 Blood Culture (Wb) - Anticubital Left Blood Culture - Final No growth in 5 days. Radiography Diagnostic Testing: Radiology Impression Chest X-Ray 04/14/23 10:55 IMPRESSION: Normal x-ray examination of the chest. Electronically Signed: Yao Serna MD at 11:46 EDT , Physical Exam Const alert and oriented x3 Constitutional Narrative: Sitting comfortably in bed, morbidly obese, conversing normally, no acute distress. General Appearance: cooperative and comfortable HEENT normocephalic, head/scalp atraumatic, hearing grossly normal bilaterally, nasal mucous membranes and turbinates normal and moist oral mucous membranes Eyes PERRL, EOMs intact bilaterally and conjunctivae normal Neck full ROM, no lymphadenopathy and supple Lymph Lymphatic: no lymphadenopathy noted Chest inspection of chest normal Resp normal respiratory effort, normal air movement, no use of accessory muscles and clear to auscultation bilaterally Cardio regular rate, regular rhythm, no murmurs and peripheral pulses 2+ throughout GI normal to inspection, nondistended, normoactive bowel sounds, soft to palpation, non-tender and non-distended Back/Spine normal ROM Extremity full ROM Extremity Narrative: Left lower leg wrap in place. Skin no rashes or lesions noted Psych mental status grossly normal Assessment & Plan Assessment/Plan (1) Abscess of left leg: PLAN: Plan Patient is a 22-year-old female with history of factitious disorder, anxiety/depression, borderline personality disorder and asthma who presented to [facility] on 04/05/2023 with worsening left lower extremity wound. 1. Left lower extremity ulceration with infection Follows outpatient with plastic surgery, was planning on debridement but sent in by plastic surgery from the office due to concern for worsening infection. Notably had outpatient wound cultures taken that grew Enterococcus and corynebacterium, was on doxycycline and Diflucan prior to admission. CT on admission showed gas in the tissue. S/p I&D with Dr. Alfonso (plastic surgery) in OR on 04/07. Wound cultures grew methicillin-resistant coag negative Staphylococcus. Patient notably has history of factitious disorder with self-harm as noted below, with concern that current infection was self-induced. ?ID and surgery following. Surgery to evaluate patient's wound today. If no worsening, patient has not received 7 days of vancomycin and is okay to discontinue antibiotics. Will not need any antibiotics going home. Continue scheduled Tylenol with p.o. Dilaudid as needed for pain management, will plan to discharge on this regimen. Hopefully home tomorrow. 2. Heart pounding ? Unclear etiology. Patiently has consistently reported this over the past several days. EKG unremarkable, electrolytes replaced. No concerning physical exam findings. Monitor. Chronic medical conditions: ? ADHD with depression/borderline personality disorder conversion disorder/pseudoseizures: Mood appears stable at this time. Continued all home medications. ? Asthma: Stable. Continue home Singulair and short acting inhaler as needed. ? GERD: Continue home PPI. DVT prophylaxis: Lovenox CODE STATUS: Full code, verified Expected disposition: Home, tomorrow Total clinical time spent by myself addressing the patient's medical issues, reviewing all the data, and collaborating with patient's care team: 35 minutes. Charges/Coding Visit Charges Inpatient E&M: 83648 Subs Hosp L2
--- NOTE | 2023-04-14 16:14 | PCM.PN.SRG ---
Subjective Subjective Postop #7 Patient states that her pain is mostly controlled by oral Dilaudid. She states she had a fever last night and did not feel well. Objective Data Objective Data Vital Signs: Vital Signs Temp Pulse Resp BP Pulse Ox O2 Del Method O2 Flow Rate 98.6 F 94 16 97/58 L 95 Room Air 2 04/14/23 13:10 04/14/23 13:10 04/14/23 13:10 04/14/23 13:10 04/14/23 13:10 04/14/23 13:10 04/12/23 04:05 Oxygen Flow Rate (L/min) 2 Oxygen Delivery Method Room Air Weight: 299 lb Body Mass Index (BMI) 52.9 Intake & Output: Intake and Output for Last 24 Hours 04/12/23 04/13/23 04/14/23 23:59 23:59 23:59 Intake Total 2160 / 2160 2380 / 2580 1417.58 / 1417.58 Balance 2160 / 2160 2380 / 2580 1417.58 / 1417.58 Lab / Micro Data 04/14/23 06:05 04/14/23 06:05 Labs: Laboratory Results - last 24 hr 04/14/23 05:00: Urine Color Yellow, Urine Clarity Clear, Urine pH 7.0, Ur Specific [place] 1.005, Urine Protein Negative, Urine Glucose (UA) Normal, Urine Ketones 5 H, Urine Occult Blood Negative, Urine Nitrite Negative, Urine Bilirubin Negative, Urine Urobilinogen Normal, Ur Leukocyte Esterase Negative, Urine RBC 0 SEEN, Urine WBC 0 SEEN, Ur Squamous Epith Cells 0 SEEN, Urine Bacteria 0 SEEN, Urine Mucus 0 SEEN 04/14/23 06:05: WBC 5.8, RBC 4.21, Hgb 11.7 L, Hct 35.7 L, MCV 84.8, MCH 27.8, MCHC 32.8, RDW Std Deviation 42.4, RDW Coeff of Anastacio 13.8, Plt Count 165, MPV 10.0, Immature Gran % (Auto) 0.500, Neut % (Auto) 56.5, Lymph % (Auto) 24.9, [place] % (Auto) 12.9 H, Eos % (Auto) 4.5, Baso % (Auto) 0.7, Absolute Neuts (auto) 3.3, Absolute Lymphs (auto) 1.43, Nucleated RBC % 0.3, Sodium 143, Potassium 3.4 L, Chloride 111 H, Carbon Dioxide 27.0, Anion Gap 5, BUN 15, Creatinine 0.66, Estim Creat Clear Calc 110.60, Est GFR (MDRD) Af Amer 144, Est GFR (MDRD) Non-Af 119, BUN/Creatinine Ratio 22.9 H, Glucose 95, Calcium 8.4 L Micro: Microbiology 04/07/23 15:56 Tissue - Leg, Left Gram Stain - Final 04/07/23 15:56 Tissue - Leg, Left Wound Culture - Final No growth aerobically. 04/07/23 15:56 Tissue - Leg, Left Anaerobic Culture - Final No growth in 5 days. 04/07/23 15:58 Tissue - Leg, Left Gram Stain - Final 04/07/23 15:58 Tissue - Leg, Left Wound Culture - Final No growth aerobically. 04/07/23 15:58 Tissue - Leg, Left Anaerobic Culture - Final No growth in 5 days. 04/05/23 13:03 Blood Culture (Wb) - Anticubital Right Blood Culture - Final No growth in 5 days. 04/05/23 12:34 Blood Culture (Wb) - Anticubital Left Blood Culture - Final No growth in 5 days. Radiography Diagnostic Testing: Radiology Impression Chest X-Ray 04/14/23 10:55 IMPRESSION: Normal x-ray examination of the chest. Electronically Signed: Yao Serna MD at 11:46 EDT , Physical Exam Narrative PHYSICAL EXAMINATION General - Alert and oriented. HEENT - PERRL. EOMI. Lungs- Normal respiratory effort. Able to speak in full sentences. Heart - Regular rate and rhythm. Extremities - FROM. Left medial leg with no active bleeding. Wound VAC dressing in place, serous drainage present in the VAC container. Brenna wound stable. Neuro - CN II-XII grossly intact. Psych - Flat affect. Appropriate. Assessment & Plan Assessment/Plan (1) Ulcer of left lower extremity with muscle involvement without evidence of necrosis: (2) Serous bulla of skin: (3) History of MRSA infection: (4) Major depressive disorder, recurrent severe without psychotic features: (5) Borderline personality disorder: PLAN: Plan Patient is requiring IV pain medication to manage her pain. She now is experiencing nausea. Left medial leg wound with no active bleeding. Wound VAC dressing in place. Wound culture from wound center visit on 04/05/23 positive for MRSE and Staphylococcus Haemolyticus. She is currently on fluconazole. ID is managing her antibiotics, her IV infiltrated and since she has had 7 days of Vancomycin, it was discontinued. Operative cultures negative for growth. Encouraged increase protein intake for increased metabolic demands. Pre albumin 13.9 today. Will start her on Mateo BID. Home health will be helping with her wound VAC changes. She is scheduled to follow up at the wound center on 04/19/23.
[2023-04-14] MEDS: Ondansetron ODT 4 MG Tablet PO (20:56)
--- NOTE | 2023-04-14 20:58 | NURSING ---
pt c/o nausea- zofran given. awaiting evening medication until nausea resolves.
[2023-04-14] MEDS: Pramipexole Di-HCl 0.125 MG Tablet 0.375 MG PO (21:08)
[2023-04-14] MEDS: MELATONIN 10 MG TABLET 20 MG PO (21:09)
[2023-04-14] MEDS: Doxazosin 1 MG Tablet PO (21:11)
[2023-04-14] MEDS: traZODone 100 MG Tablet 150 MG PO (21:15)
[2023-04-15] MEDS: Acetaminophen 500 MG Tablet 1000 MG PO ×3 (00:33→16:04)
[2023-04-15] MEDS: HYDROmorphone 2 MG TABLET PO ×5 (00:34→21:21)
--- NOTE | 2023-04-15 01:29 | NURSING ---
Pt called out at start of shift notifying staff that she is not feeling well and feels like she has a fever. This nurse entered room and pt was seated on side of bed, with legs over side and feet on floor, with flat affect. This nurse asked how she was doing and pt reports that she is not well. Audiovisual Equipment Operator asked what was wrong and pt reports that she is not feeling well and feels like she has a fever. Pt states she feels like she is going to throw up. Audiovisual Equipment Operator placed a trash can in front of her and pt made a motion like she was going to lean forward and throw up but did not. Audiovisual Equipment Operator notified pt that Zofran could be given and headed toward the door. Josiane called out to appeals writer and requested to have Phenergan instead of Zofran. Audiovisual Equipment Operator notified Josiane that nurse must given Zofran first and if that is not effective we could try Phenergan. Upon return to room, Zofran was given and pt then asked for pain medication- same was given. Audiovisual Equipment Operator recommended that pt wait a bit to take PM medications but Josiane refused and said she wanted them all now. Same given. Pt was seated on side of bed tearful. Pt states that she doesn't feel good and is frustrated that staff is not addressing her fevers. Room was hot and pt was covered in a blanket- temporal temperature was taken and =102, however, appeals writer then checked her oral temperature, which was 99.6. Audiovisual Equipment Operator notified Josiane of her vital signs and explained them. Audiovisual Equipment Operator explained that her temperature is not considered a true fever and that due to having a wound her body's response is to try to raise the temperature to kill off organisms and that this is natural. Audiovisual Equipment Operator notified Josiane that her U/A was negative, CXR was negative. Emotional support provided. Pt has been up to bathroom independently through the evening.
[2023-04-15 03:00] VITALS: BP 115/56; PULSE 112; RESP 18; TEMP 37.9; O2SAT 93
[2023-04-15] MEDS: Ondansetron ODT 4 MG Tablet PO (05:29)
[2023-04-15 07:41] VITALS: BP 118/63; PULSE 102; RESP 16; TEMP 37.4; O2SAT 94
[2023-04-15] MEDS: Juven (unflavored) Packet 1 PACKET PO ×2 (07:48→15:57)
[2023-04-15] MEDS: proMETHazine 25 MG Tablet PO (07:58)
[2023-04-15] MEDS: Ferrous Sulfate 325 MG Tablet PO (07:59)
--- NOTE | 2023-04-15 08:53 | CASEMGMT ---
Addendum entered by Luly Agustin 04/15/23 15:54: Discussed dc plan with ID, pt will not dc today. Original Note: Updated [facility] on pt status.
[2023-04-15] MEDS: hydrOXYzine PAM 25 MG Capsule 50 MG PO ×2 (10:40→21:22)
[2023-04-15] MEDS: dilTIAZem CD 240 MG Capsule PO (10:42)
[2023-04-15] MEDS: busPIRone 15 MG TABLET 30 MG PO ×2 (10:42→21:22)
[2023-04-15] MEDS: Propranolol 10 MG Tablet PO ×2 (10:43→21:23)
[2023-04-15] MEDS: Docusate Sodium 100 MG Capsule PO ×2 (10:43→21:23)
[2023-04-15] MEDS: Loratadine 10 MG Tablet PO (10:43)
--- NOTE | 2023-04-15 10:43 | CASEMGMT ---
Discharge Planning Updated [facility] via [facility] that patient will not discharge today. Cheyanne Stout, Discharge Planning Asst.
[2023-04-15] MEDS: lamoTRIgine 150 MG Tablet PO (10:44)
[2023-04-15] MEDS: Magnesium Chloride 64 MG Delay Rel.Tablet 128 MG PO (10:44)
[2023-04-15] MEDS: Enoxaparin 40 MG/0.4 ML Syringe SC (10:44)
[2023-04-15] MEDS: Pramipexole Di-HCl 0.125 MG Tablet 0.25 MG PO (10:48)
--- NOTE | 2023-04-15 10:48 | PCM.PN.ID ---
Physical Exam Narrative Not feeling well, still with fever, leg still painful. Wound vac in place. Mild headache, mild nausea. No congestion, sore throat, changes in taste/smell, abd pain, diarrhea, cough, SOB. Const alert and no apparent distress General Appearance: cooperative Resp normal air movement and clear to auscultation bilaterally Cardio regular rate and regular rhythm GI soft to palpation, non-tender and non-distended Skin Skin Narrative: LLE wound vac in place ID ID: Route of nutrition/ use of supplements: [] Nutritional Intake: [] IV Site: [] Hu Catheter: [] Assessment & Plan Assessment/Plan (1) History of necrotizing fasciitis: (2) Serous bulla of skin: PLAN: H/o self harm and necrotizing fasciitis. On vanc, CT showed gas in tissue, mild presentation. Has been on doxy/fluc as an outpt. Taken to OR 04/07/[address] Alfonso for I&D. Wound cx here with MR-CoNS x2. Completed 7 days of vanc, but now with fever. Bcx 04/13 neg so far, cxr was clear, UA neg. Will check covid, and wound vac to be changed today. Will follow, d/w telephonic case manager
[2023-04-15] MEDS: Famotidine 20 MG Tablet 40 MG PO ×2 (10:49→21:23)
[2023-04-15] MEDS: Cholecalciferol (Vit D3) 125 MCG CAPSULE (5,000 UNITS) PO (10:49)
[2023-04-15] MEDS: Pantoprazole Sodium 40 MG Tablet PO ×2 (10:50→21:23)
--- NOTE | 2023-04-15 10:51 | WOUNDNOTE ---
wound photo: left medial lower leg
[2023-04-15 13:48] VITALS: BP 111/67; PULSE 87; RESP 16; TEMP 37; O2SAT 93
--- NOTE | 2023-04-15 17:28 | PCM.PN.HOSP ---
Reason for Visit Reason for Visit: Diagnoses Methicillin resistant Staphylococcus aureus infection, unspecified site (04/05/23) Morbid (severe) obesity due to excess calories (04/05/23) Major depressive disorder, recurrent severe without psychotic features (04/05/23) Borderline personality disorder (04/05/23) Cutaneous abscess of left lower limb (04/05/23) Bullous disorder, unspecified (04/05/23) Non-pressure chronic ulcer of unspecified part of left lower leg with muscle involvement without evidence of necrosis (04/05/23) Personal history of Methicillin resistant Staphylococcus aureus infection (04/05/23) Personal history of other diseases of the musculoskeletal system and connective tissue (04/05/23) Subjective Subjective Patient continued to spike fevers overnight and had mild tachycardia. Patient seen at bedside this morning. She reports feeling quite fatigued and has mild lower leg pain. She denies any fevers or chills currently. She generally continues to not feel very well. She denies any chest pain or shortness of breath. No other acute concerns. Objective Data Objective Data Vital Signs: Vital Signs Temp Pulse Resp BP Pulse Ox O2 Del Method O2 Flow Rate 98.6 F 87 16 111/67 93 Room Air 2 04/15/23 13:48 04/15/23 13:48 04/15/23 13:48 04/15/23 13:48 04/15/23 13:48 04/15/23 13:48 04/12/23 04:05 Oxygen Flow Rate (L/min) 2 Oxygen Delivery Method Room Air Weight: 135.624 kg Body Mass Index (BMI) 52.9 Intake & Output: Intake and Output for Last 24 Hours 04/13/23 04/14/23 04/15/23 23:59 23:59 23:59 Intake Total 2380 / 2580 1417.58 / 1777.58 860 / 860 Balance 2380 / 2580 1417.58 / 1777.58 860 / 860 Lab / Micro Data 04/14/23 06:05 04/14/23 06:05 Micro: Microbiology 04/15/23 10:15 Mucosa - Nose Coronavirus COVID-19 PCR - Final 04/14/23 05:00 Urine, Clean Catch Urine Culture - Final Mixed Gram Pos & Gram Neg Org 04/07/23 15:56 Tissue - Leg, Left Gram Stain - Final 04/07/23 15:56 Tissue - Leg, Left Wound Culture - Final No growth aerobically. 04/07/23 15:56 Tissue - Leg, Left Anaerobic Culture - Final No growth in 5 days. 04/07/23 15:58 Tissue - Leg, Left Gram Stain - Final 04/07/23 15:58 Tissue - Leg, Left Wound Culture - Final No growth aerobically. 04/07/23 15:58 Tissue - Leg, Left Anaerobic Culture - Final No growth in 5 days. 04/05/23 13:03 Blood Culture (Wb) - Anticubital Right Blood Culture - Final No growth in 5 days. 04/05/23 12:34 Blood Culture (Wb) - Anticubital Left Blood Culture - Final No growth in 5 days. Physical Exam Const alert and oriented x3 Constitutional Narrative: Laying in bed, morbidly obese, conversing normally, no acute distress. Appears quite fatigued. General Appearance: cooperative and comfortable HEENT normocephalic, head/scalp atraumatic, hearing grossly normal bilaterally, nasal mucous membranes and turbinates normal and moist oral mucous membranes Eyes PERRL, EOMs intact bilaterally and conjunctivae normal Neck full ROM, no lymphadenopathy and supple Lymph Lymphatic: no lymphadenopathy noted Chest inspection of chest normal Resp normal respiratory effort, normal air movement, no use of accessory muscles and clear to auscultation bilaterally Cardio regular rate, regular rhythm, no murmurs and peripheral pulses 2+ throughout GI normal to inspection, nondistended, normoactive bowel sounds, soft to palpation, non-tender and non-distended Back/Spine normal ROM Extremity full ROM Extremity Narrative: Left lower leg wrap in place. Skin no rashes or lesions noted Psych mental status grossly normal Assessment & Plan Assessment/Plan (1) Abscess of left leg: PLAN: Plan Patient is a 22-year-old female with history of factitious disorder, anxiety/depression, borderline personality disorder and asthma who presented to [facility] on 04/05/2023 with worsening left lower extremity wound. 1. Left lower extremity ulceration with infection, persistent fevers Follows outpatient with plastic surgery, was planning on debridement but sent in by plastic surgery from the office due to concern for worsening infection. Notably had outpatient wound cultures taken that grew Enterococcus and corynebacterium, was on doxycycline and Diflucan prior to admission. CT on admission showed gas in the tissue. S/p I&D with Dr. Alfonso (plastic surgery) in OR on 04/07. Wound cultures grew methicillin-resistant coag negative Staphylococcus. Patient notably has history of factitious disorder with self-harm as noted below, with concern that current infection was self-induced. ?ID and surgery following. Unclear as to why patient is continuing to have fevers at this time. Has completed 7 days of vancomycin but remains febrile. Blood cultures 04/13 negative, chest x-ray was clear, UA was negative. Wound VAC changed today. COVID test pending. We will continue to monitor closely. Continue scheduled Tylenol with p.o. Dilaudid as needed for pain management, will plan to discharge on this regimen. 2. Heart pounding ? Unclear etiology. Patiently has consistently reported this over the past several days. EKG unremarkable, electrolytes replaced. No concerning physical exam findings. Monitor. Chronic medical conditions: ? ADHD with depression/borderline personality disorder conversion disorder/pseudoseizures: Mood appears stable at this time. Continued all home medications. ? Asthma: Stable. Continue home Singulair and short acting inhaler as needed. ? GERD: Continue home PPI. DVT prophylaxis: Lovenox CODE STATUS: Full code, verified Expected disposition: Home, 1 to 2 days Total clinical time spent by myself addressing the patient's medical issues, reviewing all the data, and collaborating with patient's care team: 35 minutes. Charges/Coding Visit Charges Inpatient E&M: 01495 Subs Hosp L2
[2023-04-15 21:14] VITALS: BP 122/61; PULSE 92; RESP 18; TEMP 37.2; O2SAT 94
[2023-04-15] MEDS: traZODone 100 MG Tablet 150 MG PO (21:21)
[2023-04-15] MEDS: Pramipexole Di-HCl 0.125 MG Tablet 0.375 MG PO (21:22)
[2023-04-15] MEDS: Doxazosin 1 MG Tablet PO (21:23)
[2023-04-15] MEDS: MELATONIN 10 MG TABLET 20 MG PO (21:24)
[2023-04-16] MEDS: Acetaminophen 500 MG Tablet 1000 MG PO ×2 (01:28→09:41)
[2023-04-16] MEDS: HYDROmorphone 2 MG TABLET PO ×4 (01:32→13:36)
[2023-04-16 03:14] VITALS: BP 125/77; PULSE 96; RESP 16; TEMP 37.4; O2SAT 96
[2023-04-16 04:45] VITALS: TEMP 37.2
[2023-04-16 08:06] LABS: Absolute Lymphocyte Count 2.09 X10^3/uL (0.83-4.51); Absolute Neutrophil Count 5.4 X10^3/uL (2.0-7.7); Basophil# 0.05 X10^3/uL; Basophil% 0.6 % (0-1); Eosinophils% 4.4 % (0-5); Hematocrit 36.3 % (37-47); Hemoglobin 11.9 g/dL (12.0-15.0); Lymphocyte # 2.09 X10^3/ul (0.83-4.51); Lymphocyte % 23.2 % (19-41); Mean Corp Hgb Conc 32.8 g/dL (32-36); Mean Corpuscular Hgb 28.1 pg (27.0-32.0); Mean Corpuscular Volume 85.6 fL (81-99); Monocyte# 1.01 X10^3/uL; Monocyte% 11.2 % (0-10); NRBC Flagged by Analyzer 0.3 % (0-5); Neutrophil # 5.39 X10^3/uL (2.7-7.7); Platelet Count 163 K/mm3 (150-450); RBC Distribution Width CV 13.7 % (11.6-14.6); RBC Distribution Width SD 42.3 fl (35.1-43.9); Red Blood Count 4.24 M/mm3 (4.2-5.4)
[2023-04-16 08:48] LABS: Anion Gap 9 (5-15); BUN 11 mg/dL (7-18); BUN/Creat Ratio 13.3 RATIO (10-20); Calcium,Total 8.4 mg/dL (8.5-10.1); Chloride 106 mmol/L (98-107); Creatinine, Serum 0.82 mg/dL (0.55-1.02); EST Glomerular Filtration Rate 92 mL/min (>60); Est Glom Filt Rate - Afr Amer 111 mL/min (>60); Estimated Creatinine Clearance 89.02 ml/min; Glucose 109 mg/dL (74-106); Potassium 3.3 mmol/L (3.5-5.1); Sodium Level 137 mmol/L (136-145)
[2023-04-16 09:14] VITALS: BP 130/79; PULSE 100; RESP 18; TEMP 37.3; O2SAT 96
[2023-04-16] MEDS: Famotidine 20 MG Tablet 40 MG PO (09:28)
[2023-04-16] MEDS: dilTIAZem CD 240 MG Capsule PO (09:28)
[2023-04-16] MEDS: hydrOXYzine PAM 25 MG Capsule 50 MG PO (09:28)
[2023-04-16] MEDS: Pramipexole Di-HCl 0.125 MG Tablet 0.25 MG PO (09:28)
[2023-04-16] MEDS: Juven (unflavored) Packet 1 PACKET PO (09:28)
[2023-04-16] MEDS: lamoTRIgine 150 MG Tablet PO (09:29)
[2023-04-16] MEDS: Docusate Sodium 100 MG Capsule PO (09:29)
[2023-04-16] MEDS: Enoxaparin 40 MG/0.4 ML Syringe SC (09:29)
[2023-04-16] MEDS: busPIRone 15 MG TABLET 30 MG PO (09:29)
[2023-04-16] MEDS: Propranolol 10 MG Tablet PO (09:29)
[2023-04-16] MEDS: Cholecalciferol (Vit D3) 125 MCG CAPSULE (5,000 UNITS) PO (09:29)
[2023-04-16] MEDS: Magnesium Chloride 64 MG Delay Rel.Tablet 128 MG PO (09:29)
[2023-04-16] MEDS: Ferrous Sulfate 325 MG Tablet PO (09:29)
[2023-04-16] MEDS: Loratadine 10 MG Tablet PO (09:30)
[2023-04-16] MEDS: Pantoprazole Sodium 40 MG Tablet PO (09:30)
--- NOTE | 2023-04-16 10:14 | VDLE_ITS ---
Reason For Study: LLE PAin RIGHT LEFT CFV is compressible, spontaneous, phasic, GSV at knee is partially compressible with competent and demonstrates normal acute thrombus noted. augmentation. GSV is compressible from junction to dist Procedure thigh. This is a venous duplex using B-mode, color Unable to visualize GSV at prox and mid calf flow and spectral Doppler. due to open wound. Exam performed portable in patient room. CFV is compressible, spontaneous, phasic, The exam was diagnostic. competent, and demonstrates normal A preliminary report was called and/or faxed augmentation. to M/S 3 match up person. FV is compressible, spontaneous, phasic, competent and demonstrates normal augmentation. POP V is compressible, spontaneous, phasic, competent and demonstrates normal augmentation. T/P Trunk is compressible. PTV is compressible. LT PerV is compressible. Unable to visualize calf vessels at prox and mid calf due to open wounds. VL/Venous Duplex US, Unilateral Interpretation Summary There is no evidence of left lower extremity deep vein thrombosis. Unable to in spect the left proximal mid calf great saphenous vein secondary to open wounds. Unable to inspect left calf vessels proximal and mid due to open wounds Superficial thrombophlebitis left great saphenous vein at the knee with more pr oximal great saphenous vein patent and compressible Normal flow patterns right common femoral vein Ordering Physician: Ángel Vergara Referring Physician: Андрей Bailey Performed By: John Sue RVT
--- NOTE | 2023-04-16 12:54 | PCM.PN.ID ---
Physical Exam Narrative Still with pain, no fever Const alert and no apparent distress General Appearance: cooperative Resp normal air movement and clear to auscultation bilaterally Cardio regular rate and regular rhythm GI soft to palpation, non-tender and non-distended Skin Skin Narrative: reviewed wound photo ID ID: Route of nutrition/ use of supplements: [] Nutritional Intake: [] IV Site: [] Hu Catheter: [] Assessment & Plan Assessment/Plan (1) History of necrotizing fasciitis: (2) Serous bulla of skin: PLAN: H/o self harm and necrotizing fasciitis. On vanc, CT showed gas in tissue, mild presentation. Has been on doxy/fluc as an outpt. Taken to OR 04/07/[address] Alfonso for I&D. Wound cx here with MR-CoNS x2. Completed 7 days of vanc, but then developed fever. Bcx 04/13 neg so far, cxr was clear, UA neg. Covid neg. No fever last night, wound doing well. Will follow
--- NOTE | 2023-04-16 13:46 | PN.HOSP_ITS ---
Reason for Visit Reason for Visit: Diagnoses Methicillin resistant Staphylococcus aureus infection, unspecified site () Morbid (severe) obesity due to excess calories (04/05/23) Major depressive disorder, recurrent severe without psychotic features (04/05/23) Borderline personality disorder (04/05/23) Cutaneous abscess of left lower limb (04/05/23) Bullous disorder, unspecified (04/05/23) Non-pressure chronic ulcer of unspecified part of left lower leg with muscle involvement without evidence of necrosis (04/05/23) Personal history of Methicillin resistant Staphylococcus aureus infection (04/05/23) Personal history of other diseases of the musculoskeletal system and connective tissue (04/05/23) Subjective Subjective Patient continued to have low-grade fevers overnight. Seen at bedside this morning. States she has continued left lower leg pain. Had significant pain with getting up and walking to the bathroom this morning. States the pain feels like a cramping in her leg, which feels different than the pain associated with her wound. She denies any chest pain or shortness of breath. No other acute concerns. Objective Data Objective Data Vital Signs: Vital Signs Temp Pulse Resp BP Pulse Ox O2 Del Method O2 Flow Rate 99.2 F H 100 18 130/79 H 96 Room Air 2 04/16/23 09:14 04/16/23 09:14 04/16/23 09:14 04/16/23 09:14 04/16/23 09:14 04/16/23 09:14 04/12/23 04:05 Oxygen Flow Rate (L/min) 2 Oxygen Delivery Method Room Air Weight: 135.624 kg Body Mass Index (BMI) 52.9 Intake & Output: Intake and Output for Last 24 Hours 04/14/23 04/15/23 04/16/23 23:59 23:59 23:59 Intake Total 1417.58 / 1777.58 1160 / 1160 Balance 1417.58 / 1777.58 1160 / 1160 Lab / Micro Data 04/16/23 07:55 04/16/23 07:55 Labs: Laboratory Results - last 24 hr 04/16/23 07:55: WBC 9.0, RBC 4.24, Hgb 11.9 L, Hct 36.3 L, MCV 85.6, MCH 28.1, MCHC 32.8, RDW Std Deviation 42.3, RDW Coeff of Anastacio 13.7, Plt Count 163, MPV 10.0, Immature Gran % (Auto) 0.600, Neut % (Auto) 60.0, Lymph % (Auto) 23.2, [place] % (Auto) 11.2 H, Eos % (Auto) 4.4, Baso % (Auto) 0.6, Absolute Neuts (auto) 5.4, Absolute Lymphs (auto) 2.09, Nucleated RBC % 0.3, Sodium 137, Potassium 3.3 L, Chloride 106, Carbon Dioxide 22.0, Anion Gap 9, BUN 11, Creatinine 0.82, Estim Creat Clear Calc 89.02, Est GFR (MDRD) Af Amer 111, Est GFR (MDRD) Non-Af 92, BUN/Creatinine Ratio 13.3, Glucose 109 H, Calcium 8.4 L Micro: Microbiology 04/13/23 21:47 Blood Culture (Wb) - Anticubital Left Blood Culture - Preliminary No growth in 48 hours. 04/13/23 21:40 Blood Culture (Wb) - Left Hand Blood Culture - Preliminary No growth in 48 hours. 04/15/23 10:15 Mucosa - Nose Coronavirus COVID-19 PCR - Final 04/14/23 05:00 Urine, Clean Catch Urine Culture - Final Mixed Gram Pos & Gram Neg Org 04/07/23 15:56 Tissue - Leg, Left Gram Stain - Final 04/07/23 15:56 Tissue - Leg, Left Wound Culture - Final No growth aerobically. 04/07/23 15:56 Tissue - Leg, Left Anaerobic Culture - Final No growth in 5 days. 04/07/23 15:58 Tissue - Leg, Left Gram Stain - Final 04/07/23 15:58 Tissue - Leg, Left Wound Culture - Final No growth aerobically. 04/07/23 15:58 Tissue - Leg, Left Anaerobic Culture - Final No growth in 5 days. 04/05/23 13:03 Blood Culture (Wb) - Anticubital Right Blood Culture - Final No growth in 5 days. 04/05/23 12:34 Blood Culture (Wb) - Anticubital Left Blood Culture - Final No growth in 5 days. Physical Exam Const alert and oriented x3 Constitutional Narrative: Laying in bed, morbidly obese, conversing normally, no acute distress. Continues to appear fatigued. General Appearance: cooperative and comfortable HEENT normocephalic, head/scalp atraumatic, hearing grossly normal bilaterally, nasal mucous membranes and turbinates normal and moist oral mucous membranes Eyes PERRL, EOMs intact bilaterally and conjunctivae normal Neck full ROM, no lymphadenopathy and supple Lymph Lymphatic: no lymphadenopathy noted Chest inspection of chest normal Resp normal respiratory effort, normal air movement, no use of accessory muscles and clear to auscultation bilaterally Cardio regular rate, regular rhythm, no murmurs and peripheral pulses 2+ throughout GI normal to inspection, nondistended, normoactive bowel sounds, soft to palpation, non-tender and non-distended Back/Spine normal ROM Extremity full ROM Extremity Narrative: Left lower leg wrap in place. Mild pain to palpation in left calf. Skin no rashes or lesions noted Psych mental status grossly normal Assessment & Plan Assessment/Plan (1) Abscess of left leg: PLAN: Plan Patient is a 22-year-old female with history of factitious disorder, anxiety/depression, borderline personality disorder and asthma who presented to [facility] on 04/05/2023 with worsening left lower extremity wound. 1. Left lower extremity ulceration with infection, persistent fevers Follows outpatient with plastic surgery, was planning on debridement but sent in by plastic surgery from the office due to concern for worsening infection. Notably had outpatient wound cultures taken that grew Enterococcus and beau nebacterium, was on doxycycline and Diflucan prior to admission. CT on admission showed gas in the tissue. S/p I&D with Dr. Alfonso (plastic surgery) in OR on 04/07. Wound cultures grew methicillin-resistant coag negative Staphylococcus. Patient notably has history of factitious disorder with self- harm as noted below, with concern that current infection was self-induced. Wounds examined by surgery on 04/14 and 04/15, healing appropriately, no further concerns. ?ID following. Has completed 7 days of vancomycin therapy. Blood cultures 04/13 negative, chest x-ray clear, UA negative. Wound VAC changed 04/15. COVID test 04/15 negative. Continues to have persistent low-grade fevers of unclear etiolog y. Will order left lower extremity duplex ultrasound to rule out DVT today. Continue scheduled Tylenol with p.o. Dilaudid as needed for pain management, will plan to discharge on this regimen. 2. Heart pounding ? Unclear etiology. Patiently has consistently reported this over the past several days. EKG unremarkable, electrolytes replaced. No concerning physical exam findings. Monitor. Chronic medical conditions: ? ADHD with depression/borderline personality disorder conversion disorde r/pseudoseizures: Mood appears stable at this time. Continued all home medications. ? Asthma: Stable. Continue home Singulair and short acting inhaler as needed. ? GERD: Continue home PPI. DVT prophylaxis: Lovenox CODE STATUS: Full code, verified Expected disposition: Home, 1 to 2 days Total clinical time spent by myself addressing the patient's medical issues, reviewing all the data, and collaborating with patient's care team: 35 minutes. Charges/Coding Visit Charges Inpatient E&M: 12960 Subs Hosp L2
[2023-04-16 15:00] VITALS: BP 124/80; PULSE 102; RESP 16; TEMP 37.2; O2SAT 98
--- NOTE | 2023-04-16 15:01 | DCINST_ITS ---
Discharge Instructions Diet Discharge Diet: No restrictions Activity Discharge Activity: Return to Normal Activity Weight Bearing Status: Weight bearing as tolerated Follow Up Care Please Follow Up With: Андрей Bailey DO When: As needed Test Results: Test results from this visit will be discussed in further detail at your follow- up appointment, if applicable. Pending Tests Upon Discharge: None Discharge Plan Admission Admit Date/Time: 04/05/23 16:53 Primary Reason for Your Visit: Left leg wound Attending Provider: Ángel Vergara Primary Care Provider: Андрей Bailey Consulting Providers: Femi Meza; Arnoldo Aguilar; Robert Alfonso; Azra Cage Instructions Additional Instructions / Restrictions: Take Tylenol as needed and oral Dilaudid as needed for left lower leg pain. Follow-up with your primary care doctor in the next 1 to 2 weeks. Follow-up with the surgery team and wound team in the next 1 to 2 weeks. Discharge Orders/Prescriptions Prescriptions: New hydromorphone 2 mg Tablet 2 mg PO Q4H PRN PRN (Reason: Pain Score 6-10) 5 Days Qty: 20 0RF Mateo (with collagen) 7-7-1.5 gram Powder In Packet 1 packet PO BIDCM 15 Days Qty: 30 0RF Continued Rexulti 4 mg tablet 4 mg PO DAILY Qty: 30 1RF buspirone 30 mg tablet 30 mg PO BID 30 Days Qty: 60 2RF Vyvanse 30 mg capsule 30 mg PO DAILY 30 Days Qty: 30 0RF lamotrigine 150 mg tablet 150 mg PO DAILY Qty: 30 2RF hydroxyzine HCl 50 mg tablet 50 mg PO BID 30 Days Qty: 60 2RF trazodone 100 mg tablet 150 mg PO QHS PRN (Reason: sleep) 30 Days Qty: 45 2RF vilazodone 20 mg tablet 20 mg PO DAILY Qty: 30 2RF Rx Instructions: must administer with a meal/food magnesium oxide 400 MG tablet 400 mg PO DAILY melatonin 10 MG tablet 20 mg PO QHS riboflavin (vitamin B2) 400 MG tablet 400 mg PO DAILY albuterol sulfate 1 PUFF inhaler 2 puff inhalation Q8H PRN (Reason: ASTHMA) Dulera 200-5 mcg/actuation Hfa Aerosol Inhaler 2 puff INHALATION BID ferrous sulfate [FeroSul] 325 mg (65 mg iron) Tablet 325 mg PO DAILY promethazine 25 mg Tablet 25 mg PO Q8H PRN (Reason: NAUSEA/VOMITING) pramipexole [Mirapex] 0.125 mg Tablet 0.25 mg PO DAILY Rx Instructions: TAKE TWO TABLET BY MOUTH EVERY MORNING (0.25MG) AND 3 TABLETS EVERY EVENING (0.375MG) docusate sodium [Colace] 100 mg Capsule 100 mg PO BID montelukast 10 mg Tablet 10 mg PO DAILY cholecalciferol (vitamin D3) 125 mcg (5,000 unit) Capsule 125 mcg PO DAILY B12 5,000-100 mcg Lozenge 1 lesly SUBLINGUAL DAILY cetirizine 10 mg tablet 10 mg PO DAILY fluconazole 200 mg tablet 200 mg PO BID Patient Comments: TAKE ONE TABLET BY MOUTH TWICE DAILY FOR 14 DAYS. START DATE 03-26-23 terazosin 1 mg capsule 1 mg PO QHS propranolol 10 mg tablet 10 mg PO BID pramipexole 0.125 mg tablet 0.375 mg PO QPM Rx Instructions: TAKE TWO TABLET BY MOUTH EVERY MORNING (0.25MG) AND 3 TABLETS EVERY EVENING (0.375MG) diltiazem HCl 240 mg capsule,extended release 24hr 240 mg PO DAILY omeprazole 40 mg capsule,delayed release(DR/EC) 40 mg PO BID nystatin 100,000 unit/gram cream 1 applic TOPICAL BID PRN (Reason: FUNGAL INFECTION) lorazepam 1 mg tablet 1 mg PO BID PRN (Reason: ANXIETY ) Discontinued prazosin 1 mg capsule 1 mg PO QHS Qty: 30 2RF Helen 30 mg Tablet 30 mg PO DAILY PRN doxycycline hyclate 100 mg capsule 100 mg PO BID Patient Comments: TAKE ONE CAPSULE BY MOUTH TWICE DAILY FOR 24 DAYS. START DATE 04-01-23 famotidine 40 mg tablet 40 mg PO BID oxycodone 5 mg tablet 5 mg PO Q12H PRN (Reason: pain) Patient Comments: take 1 tablet by mouth every 12 hours for 14 days if needed for pain Referrals / Follow Up: Андрей Bailey DO [Primary Care Provider] - Disposition Disposition (needs filled in before D/C Order can be placed): Home, Self Care
--- NOTE | 2023-04-16 15:08 | DS.PCM_ITS ---
Providers Date of Admission: 04/05/23 Date of Discharge: 04/16/23 Primary Care Physician: Dr. Андрей Bailey, Consultations 04/05/23 17:28 Consult: Infectious Disease Routine Consulting Provider: Arnoldo Aguilar Reason for Consult: LLE wound EMERGENT Consult: No Notified: Yes Date Notified: 04/05/23 Time Notified: 17:04 Method of Notification: Text Consult: Onc/Wound/middle [employer] coach Routine Comment: Consult: Plastic Surgery Routine Consulting Provider: Robert Alfonso Reason for Consult: LLE wound for debridement EMERGENT Consult: No Notified: Yes Date Notified: 04/06/23 Time Notified: 11:30 Method of Notification: Verbal Reason For Visit: LLE WOUND WITH CELLULITIS Diagnosis Discharge Diagnosis (1) Abscess of left leg: Status: Acute Code(s): L02.416 - Cutaneous abscess of left lower limb Medications at Discharge Home Medications magnesium oxide 400 mg (241.3 mg magnesium) tablet 400 mg PO DAILY SUPPLEMENT 11/11/16 melatonin 10 mg sublingual tablet 20 mg PO QHS INSOMNIA 11/11/16 riboflavin (vitamin B2) 400 mg tablet 400 mg PO DAILY SUPPLEMENT 05/26/19 albuterol sulfate 90 mcg/actuation aerosol inhaler 2 puff inhalation Q8H PRN ASTHMA 07/20/19 mometasone-formoterol HFA 200 mcg-5 mcg/actuation aerosol inhaler (Dulera) 2 puff inhalation BID ASTHMA 05/29/21 cholecalciferol (vitamin D3) 125 mcg (5,000 unit) capsule 125 mcg PO DAILY SUPPLEMENT 12/28/22 cyanocobalamin (B12)-cobamamide 5,000 mcg-100 mcg sublingual lozenge (B12) 1 lesly sublingual DAILY SUPPLEMENT 12/28/22 docusate sodium 100 mg capsule (Colace) 100 mg PO BID CONSTIPATION 12/28/22 ferrous sulfate 325 mg (65 mg iron) tablet (FeroSul) 325 mg PO DAILY SUPPLEMENT 12/28/22 montelukast 10 mg tablet 10 mg PO DAILY ALLERGIES 12/28/22 pramipexole 0.125 mg tablet (Mirapex) 0.25 mg PO DAILY 12/28/22 promethazine 25 mg tablet 25 mg PO Q8H PRN NAUSEA/VOMITING 12/28/22 brexpiprazole 4 mg tablet (Rexulti) 4 mg PO DAILY MOOD #30 tabs 12/30/22 buspirone 30 mg tablet 30 mg PO BID ANXIETY 30 days #60 tabs 12/30/22 hydroxyzine HCl 50 mg tablet 50 mg PO BID ITCHING 30 days #60 tabs 03/18/23 lamotrigine 150 mg tablet 150 mg PO DAILY MOOD #30 tabs 03/18/23 lisdexamfetamine 30 mg capsule (Vyvanse) 30 mg PO DAILY ADHD 30 days #30 caps 03/18/23 trazodone 100 mg tablet 150 mg (1.5 x 100 mg) PO QHS PRN sleep 30 days #45 tabs 03/18/23 vilazodone 20 mg tablet 20 mg PO DAILY DEPRESSION #30 tabs 03/18/23 cetirizine 10 mg tablet 10 mg PO DAILY ALLERGIES 04/05/23 diltiazem HCl 240 mg capsule,extended release 24 hr 240 mg PO DAILY CHEST PAIN 04/05/23 fluconazole 200 mg tablet 200 mg PO BID FUNGAL INFECTION 04/05/23 lorazepam 1 mg tablet 1 mg PO BID PRN ANXIETY 04/05/23 nystatin 100,000 unit/gram topical cream 1 applic topical BID PRN FUNGAL INFECTION 04/05/23 omeprazole 40 mg capsule,delayed release 40 mg PO BID ACID REFLUX 04/05/23 pramipexole 0.125 mg tablet 0.375 mg PO QPM TREMORS 04/05/23 propranolol 10 mg tablet 10 mg PO BID BLOOD PRESSURE 04/05/23 terazosin 1 mg capsule 1 mg PO QHS BLOOD PRESSURE 04/05/23 arginine 7 gram-glutam 7 gram-CaHMB 1.5 geon-liesy-sh-min oral pwd pkt (Mateo (with collagen)) 1 packet PO BIDCM 15 days #30 ea 04/16/23 hydromorphone 2 mg tablet 2 mg PO Q4H PRN PRN Pain Score 6-10 5 days #20 tabs 04/16/23 Hospital Course Operations - (Incision and drainage of left lower extremity wound with wound VAC placement) Procedures - (Lower extremity CT scan, chest x-ray) Summary of Care Provided Minutes Spent on Discharge: 38 Hospital Course: Patient is a 22-year-old female with history of factitious disorder, anxiety/depression, borderline personality disorder and asthma who presented to [facility] on 04/05/2023 with worsening left lower extremity wound. Multiple medical conditions addressed during hospitalization as noted below. Left lower extremity ulceration with infection: Patient follows outpatient with plastic surgery. Was planning on having debridement done in outpatient setting, however was sent in for admission by plastic surgery from the office due to concern for worsening lower leg wound infection. Notably had outpatient wound cultures taken that grew Enterococcus and corynebacterium, was on doxycycline and Diflucan prior to admission. CT on admission showed gas in the tissue. S/p I&D with Dr. Alfonso (plastic surgery) in OR on 04/07 with wound VAC placement. Wound cultures grew methicillin-resistant coag negative Staphylococcus. ID followed. Completed 7 days of vancomycin therapy while admitted. Wound examined by surgery on day prior to discharge and was noted that wound was he aling appropriately. Patient's hospital course was prolonged due to multiple factors including 1) inability to send patient home on p.o. antibiotics given multiple psych medications and concern for serotonin syndrome with p.o. options, 2) intractable left lower extremity pain, 3) persistent fevers as noted below. Patient was eventually stable for discharge home on 04/16. Case management followed, patient discharged home with wound VAC supplies and will follow-up with wound therapy after discharge. Discharged home with short course of p.o. Dilaudid for pain management. Persistent fevers, resolved: Patient was appropriately treated for her wound infection with a 7-day course of vancomycin as noted above. She continued to spike fevers for 2 to 3 days after completing vancomycin course. Blood cultures 04/13 negative, chest x-ray clear, UA negative. Wound VAC changed 04/15. COVID test 04/15 negative. Left lower extremity duplex ultrasound 04/16 negative for DVT. Patient remained afebrile from the evening of 04/15 through 04/16. Discussed with oscar BOWENS for discharge home on 04/16. Extensive psychiatric history: Including reported history of factitious disorder with self-harm. Continued on home psychiatric medications while patient was inpatient. Recommend outpatient follow-up with patient's psychiatrist. Discharge diagnoses: ? Left lower extremity ulceration with infection ? Persistent fevers, resolved ? Multiple psychiatric conditions ? Asthma ? GERD PCP follow-up: Please ensure the patient has appropriate follow-up with wound therapy and surgery for continued monitoring of her left lower extremity wound. Total clinical time spent by myself addressing the patient's discharge needs: 38 minutes. Physical Exam Const alert and oriented x3 Constitutional Narrative: Laying in bed, morbidly obese, conversing normally, no acute distress. Continues to appear fatigued. General Appearance: cooperative and comfortable HEENT normocephalic, head/scalp atraumatic, hearing grossly normal bilaterally, nasal mucous membranes and turbinates normal and moist oral mucous membranes Eyes PERRL, EOMs intact bilaterally and conjunctivae normal Neck full ROM, no lymphadenopathy and supple Lymph Lymphatic: no lymphadenopathy noted Chest inspection of chest normal Resp normal respiratory effort, normal air movement, no use of accessory muscles and clear to auscultation bilaterally Cardio regular rate, regular rhythm, no murmurs and peripheral pulses 2+ throughout GI normal to inspection, nondistended, normoactive bowel sounds, soft to palpation, non-tender and non-distended Back/Spine normal ROM Extremity full ROM Extremity Narrative: Left lower leg wrap in place. Mild pain to palpation in left calf. Skin no rashes or lesions noted Psych mental status grossly normal Weight / BMI Weight Weight: 135.624 kg Body Mass Index (BMI) 52.9 ABG / Lab / Microbiology Data 04/16/23 07:55 04/16/23 07:55 Laboratory: Laboratory Results - last 24 hr 04/16/23 07:55: WBC 9.0, RBC 4.24, Hgb 11.9 L, Hct 36.3 L, MCV 85.6, MCH 28.1, MCHC 32.8, RDW Std Deviation 42.3, RDW Coeff of Anastacio 13.7, Plt Count 163, MPV 10.0, Immature Gran % (Auto) 0.600, Neut % (Auto) 60.0, Lymph % (Auto) 23.2, [place] % (Auto) 11.2 H, Eos % (Auto) 4.4, Baso % (Auto) 0.6, Absolute Neuts (auto) 5.4, Absolute Lymphs (auto) 2.09, Nucleated RBC % 0.3, Sodium 137, Potassium 3.3 L, Chloride 106, Carbon Dioxide 22.0, Anion Gap 9, BUN 11, Creatinine 0.82, Estim Creat Clear Calc 89.02, Est GFR (MDRD) Af Amer 111, Est GFR (MDRD) Non-Af 92, BUN/Creatinine Ratio 13.3, Glucose 109 H, Calcium 8.4 L Microbiology: Microbiology 04/13/23 21:47 Blood Culture (Wb) - Anticubital Left Blood Culture - Preliminary No growth in 48 hours. 04/13/23 21:40 Blood Culture (Wb) - Left Hand Blood Culture - Preliminary No growth in 48 hours. 04/15/23 10:15 Mucosa - Nose Coronavirus COVID-19 PCR - Final 04/14/23 05:00 Urine, Clean Catch Urine Culture - Final Mixed Gram Pos & Gram Neg Org 04/07/23 15:56 Tissue - Leg, Left Gram Stain - Final 04/07/23 15:56 Tissue - Leg, Left Wound Culture - Final No growth aerobically. 04/07/23 15:56 Tissue - Leg, Left Anaerobic Culture - Final No growth in 5 days. 04/07/23 15:58 Tissue - Leg, Left Gram Stain - Final 04/07/23 15:58 Tissue - Leg, Left Wound Culture - Final No growth aerobically. 04/07/23 15:58 Tissue - Leg, Left Anaerobic Culture - Final No growth in 5 days. 04/05/23 13:03 Blood Culture (Wb) - Anticubital Right Blood Culture - Final No growth in 5 days. 04/05/23 12:34 Blood Culture (Wb) - Anticubital Left Blood Culture - Final No growth in 5 days. D/C Instructions Discharge Diet: No restrictions Weight Bearing Status: Weight bearing as tolerated Pending Tests Upon Discharge: None Please Follow Up With: Андрей Bailey DO When: As needed Meaningful Use Info Meaningful Use Diagnoses (Choose all that apply): None applicable Discharge Plan Admission Admit Date/Time: 04/05/23 16:53 Primary Reason for Your Visit: Left leg wound Attending Provider: Ángel Vergara Primary Care Provider: Андрей Bailey Consulting Providers: Femi Meza; Arnoldo Aguilar; Robert Alfonso; Azra Cage Instructions Additional Instructions / Restrictions: Take Tylenol as needed and oral Dilaudid as needed for left lower leg pain. Follow-up with your primary care doctor in the next 1 to 2 weeks. Follow-up with the surgery team and wound team in the next 1 to 2 weeks. Discharge Orders/Prescriptions Prescriptions: New hydromorphone 2 mg Tablet 2 mg PO Q4H PRN PRN (Reason: Pain Score 6-10) 5 Days Qty: 20 0RF Mateo (with collagen) 7-7-1.5 gram Powder In Packet 1 packet PO BIDCM 15 Days Qty: 30 0RF Continued Rexulti 4 mg tablet 4 mg PO DAILY Qty: 30 1RF buspirone 30 mg tablet 30 mg PO BID 30 Days Qty: 60 2RF lisdexamfetamine [Vyvanse] 30 mg capsule 30 mg PO DAILY 30 Days Qty: 30 0RF lamotrigine 150 mg tablet 150 mg PO DAILY Qty: 30 2RF hydroxyzine HCl 50 mg tablet 50 mg PO BID 30 Days Qty: 60 2RF trazodone 100 mg tablet 150 mg PO QHS PRN (Reason: sleep) 30 Days Qty: 45 2RF vilazodone 20 mg tablet 20 mg PO DAILY Qty: 30 2RF Rx Instructions: must administer with a meal/food magnesium oxide 400 MG tablet 400 mg PO DAILY melatonin 10 MG tablet 20 mg PO QHS riboflavin (vitamin B2) 400 MG tablet 400 mg PO DAILY albuterol sulfate 1 PUFF inhaler 2 puff inhalation Q8H PRN (Reason: ASTHMA) Dulera 200-5 mcg/actuation Hfa Aerosol Inhaler 2 puff INHALATION BID ferrous sulfate [FeroSul] 325 mg (65 mg iron) Tablet 325 mg PO DAILY promethazine 25 mg Tablet 25 mg PO Q8H PRN (Reason: NAUSEA/VOMITING) pramipexole [Mirapex] 0.125 mg Tablet 0.25 mg PO DAILY Rx Instructions: TAKE TWO TABLET BY MOUTH EVERY MORNING (0.25MG) AND 3 TABLETS EVERY EVENING (0.375MG) docusate sodium [Colace] 100 mg Capsule 100 mg PO BID montelukast 10 mg Tablet 10 mg PO DAILY cholecalciferol (vitamin D3) 125 mcg (5,000 unit) Capsule 125 mcg PO DAILY B12 5,000-100 mcg Lozenge 1 lesly SUBLINGUAL DAILY cetirizine 10 mg tablet 10 mg PO DAILY fluconazole 200 mg tablet 200 mg PO BID Patient Comments: TAKE ONE TABLET BY MOUTH TWICE DAILY FOR 14 DAYS. START DATE 03-26-23 terazosin 1 mg capsule 1 mg PO QHS propranolol 10 mg tablet 10 mg PO BID pramipexole 0.125 mg tablet 0.375 mg PO QPM Rx Instructions: TAKE TWO TABLET BY MOUTH EVERY MORNING (0.25MG) AND 3 TABLETS EVERY EVENING (0.375MG) diltiazem HCl 240 mg capsule,extended release 24hr 240 mg PO DAILY omeprazole 40 mg capsule,delayed release(DR/EC) 40 mg PO BID nystatin 100,000 unit/gram cream 1 applic TOPICAL BID PRN (Reason: FUNGAL INFECTION) lorazepam 1 mg tablet 1 mg PO BID PRN (Reason: ANXIETY ) Discontinued prazosin 1 mg capsule 1 mg PO QHS Qty: 30 2RF Helen 30 mg Tablet 30 mg PO DAILY PRN doxycycline hyclate 100 mg capsule 100 mg PO BID Patient Comments: TAKE ONE CAPSULE BY MOUTH TWICE DAILY FOR 24 DAYS. START DATE 04-01-23 famotidine 40 mg tablet 40 mg PO BID oxycodone 5 mg tablet 5 mg PO Q12H PRN (Reason: pain) Patient Comments: take 1 tablet by mouth every 12 hours for 14 days if needed for pain Referrals / Follow Up: Андрей Bailey DO [Primary Care Provider] - Disposition Disposition (needs filled in before D/C Order can be placed): Home, Self Care Charges/Coding Visit Charges Inpatient E&M: 70014 Disch Hosp >30min
--- NOTE | 2023-04-16 15:29 | CASEMGMT ---
Updated [facility] that pt will dc today, they will reach out to pt to set up SOC. RN CM into pt room, pt states that her insurance licensing supervisor, Tarsha stated that pt could have protein supplements that are covered by her insurance. Received Tarsha's phone number- [phone]. TC to Tarsha, left voicemail to see how this could be covered and what is needed. Will await returned call.
--- NOTE | 2023-04-16 15:35 | WOUNDNOTE ---
Pt switched over to the home VAC. pt denies questions. was reminded on how to change the canister, return VAC, etc. patient has had the wound VAC in the past as well.
== END 2023-04-16 16:58 | disposition home or self-care (01) | DRG 380 ==
LOC: ED 16:05 → MS3 04-06 07:11
PROVIDERS: Anesthesiology; Family Medicine; Hospitalist; Internal Medicine; Internal Medicine Infectious Disease; Nurse Practitioner Family; Surgery; Admitting Provider Family Medicine; Emergency Provider Emergency Medicine; PCP Student in an Organized Health Care Education/Training Program; Visit Provider Hospitalist
PROC: 0JBP0ZZ Excision of Left Lower Leg Subcutaneous Tissue and Fascia, Open Approach (ICD-10-PCS; principal; 2023-04-07 12:20)
DX: L97.925 Non-pressure chronic ulcer of unspecified part of left lower leg with muscle involvement without evidence of necrosis (principal); F33.2 Major depressive disorder, recurrent severe without psychotic features; E66.01 Morbid (severe) obesity due to excess calories; Z68.43 Body mass index [BMI] 50.0-59.9, adult; F60.3 Borderline personality disorder; J45.909 Unspecified asthma, uncomplicated; K21.9 Gastro-esophageal reflux disease without esophagitis; L03.116 Cellulitis of left lower limb; R50.9 Fever, unspecified; R00.0 Tachycardia, unspecified; F68.10 Factitious disorder imposed on self, unspecified; L02.416 Cutaneous abscess of left lower limb; R23.8 Other skin changes; Z20.822 Contact with and (suspected) exposure to COVID-19; B95.62 Methicillin resistant Staphylococcus aureus infection as the cause of diseases classified elsewhere; F90.9 Attention-deficit hyperactivity disorder, unspecified type; F41.1 Generalized anxiety disorder; Z79.51 Long term (current) use of inhaled steroids; Z79.899 Other long term (current) drug therapy; Z87.39 Personal history of other diseases of the musculoskeletal system and connective tissue; Z86.14 Personal history of Methicillin resistant Staphylococcus aureus infection
CPT/HCPCS: 11042; 11043; 36415; 71046; 73701; 80048; 80076; 80202; 81001; 81025; 83605; 83735; 84100; 84134; 84703; 85025; 85652; 86140; 87040; 87070; 87075; 87086; 87088; 87102; 87176; 87205; 87206; 87635; 88304; 88305; 93005; 93971; 94668; 99284; J7030; J7040; J7050; Q9967; A4216; J2405

== ENCOUNTER 2023-05-05 11:00 | Outpatient (RCR) | payer MEDICAID, SELFPAY ==
[2023-04-09 00:10] VITALS: BP 126/93; PULSE 107; RESP 16; TEMP 35; BMI 48.9
[2023-04-19 10:52] VITALS: BP 113/73; PULSE 102; RESP 20; TEMP 36.4; BMI 48.9
--- NOTE | 2023-04-19 12:40 | PN.PCM_ITS ---
History of Present Illness Date of Service: 04/19/23 Chief Complaint: non-healing surgical wounds of left medial and lateral leg History of Wound: Patient is a 22 year old female who presents to the wound healing center for evaluation of nonhealing surgical wounds of left left medial and lateral leg. Patient is a poor historian. Reviewed notes from [facility], she had been admitted to [facility] around 11/27/22 for cellulitis and worsening infection of her left lower leg. She ended having an I&D of her left medial leg, left lateral leg and left lateral thigh. She was diagnosed with necrotizing fasciitis. Her wound cultures were positive for Enterococcus and steno. Mycoplasma IGG and IgM (+). She was sent to [facility] on 2 weeks dapto, arthur, clinda, levaquin, and micafungin. Changed Dap to to Vanc. On 12/12 stopped vanc/levaquin/arthur and started IV fluc due to diagnosis of candidemia. She was discharged home from [facility] around the second week of December. She has a history of significant for depression, personality disorder, self harm, anxiety, asthma, recurrent cellulitis and ADHD and most recently Afib and tachycardia. She states that she did not cause these wounds and did not do anything to them to make them worse. She has a history of being accused of tampering with wounds. Surgery 04/07/23 - Surgical preparation left medial leg with incision and drainage and excisional debridement nonhealing infected MRSA ulcer, (126 cm2). Operative culture were negative but she was on Vancomycin and Fluconazole for positive cultures from 04/05/23 which were positive for MRSE and Staphylococcus haemolyticus. Wound culture obtained on 12/29/22 which was positive for Enterococcus faecalis, Corynebacterium amycolatum, and MRSE. She was treated with Augmentin and Doxycycline. Wound culture obtained 01/28/23 which was positive for Enterococcus faecalis and Corynebacterium striatum. She was started on Augmentin. Left leg ultrasound obtained on 01/06/23 which showed There is no evidence of left lower extremity deep vein thrombosis. She was in [facility] [place] for a week at the end of February for subcutaneous air around her wound. She states she cultured positive for MRSA and they had her on IV antibiotics. They used a wound VAC while she was in the hospital. She is now on Doxycycline. Today she denies fever, chills, nausea or vomiting. Progress of Wound: Left lateral leg ulcer is heeled. The left medial leg ulcer is has granulation tissue present. It continues to be very painful since her surgery. Objective Data Objective Data Vital Signs: Vital Signs Temp Pulse Resp BP 97.5 F L 102 H 20 H 113/73 04/19/23 10:52 04/19/23 10:52 04/19/23 10:52 04/19/23 10:52 Weight: 276 lb Body Mass Index (BMI) 48.9 Charges/Coding Procedures Integumentary [id number]: [id number] Global Visit Debridement Note Debridement Note Wound debrided: #5 left medial leg Laterality: Left Wound Grade/Stage: 3 Type of Debridement: Excisional debridement Anesthesia Used: 5% Lidocaine Gel Depth: Down to and including healthy tissue, in the subcutaneous layer and to muscle Percentage of wound debrided: 100 Instrument Used: 7mm curette Tissue Removed: subcutaneous tissue and muscle. Severity: Fat Layer Exposed Amount of bleeding with debridement: Mild Bleeding Controlled with: Pressure and Compression and gauze Patient tolerated procedure: Patient tolerated procedure well Post-Debridement Measurements and Additional Note: Post-Debridement Measurements/Treatment - Nurse 1 - General Ulcer Assessment Start: 04/19/23 10:52 Freq: Status: Active Protocol: BOBO Activity Type Activity Date Activity User E-sign Co-sign Detail Recorded Client Recorded Date Recorded By Document 04/19/23 10:52 DL [id number] 04/19/23 11:07 DL 04/19/23 10:52 - Today's Visit Information Type of service Follow-up Visit (Physician/INSPECTOR WATCH [employer]SEMBLY ) Arrival Mode Ambulatory Transfer Assistance None Patient Identification Verified (Name & Yes ) Height and Weight Body Mass Index (BMI) 48.9 BMI Classification Obese Vital Signs Temperature (97.8 F-99.1 F) 97.5 F L Temperature Source Temporal Pulse Rate (60-100) 102 H Pulse Location Monitor Respiratory Rate (12-18) 20 H Respiratory rate source Observation Blood Pressure (90/60-120/80) 113/73 Blood Pressure Mean (mm Hg) 86 Source Monitor History Since Last Visit- (Skip if this is Patient's initial visit) Have you changed medications since your No last visit? Any new allergies or adverse reactions No Had a fall/change in ADL's that may No increase risk of falls Signs or symptoms of abuse and/or No neglect since last visit Have you been in the hospital since your No last visit? Has dressing in place as prescribed Yes Has compression in place as prescribed Yes Has offloadiing in place as prescribed Yes Experienced any changes in pain level or No management Pain Scale: 0-10 Numeric Is Patient Pain Free? Yes WC - Nurse 1 - General Ulcer Measurement Start: 04/19/23 10:52 Freq: Status: Active Protocol: Activity Type Activity Date Activity User E-sign Co-sign Detail Recorded Client Recorded Date Recorded By Document 04/19/23 10:52 DL [id number] 04/19/23 11:07 DL 04/19/23 10:52 Wound Center Nurse 1 #6 L lateral Le -Current Size (cm) - Length 0 -Current Size (cm) - Width 0 -Current Size (cm) - Depth 0 -Total Square Cm 0 -Photo Taken Yes -Exudate Amt None Present -Exudate Type Serosanguineous -Wound Margin Indistinct, Non -Visible -Granulation Amt Large (67-100%) -Granulation Quality [place] -Necrosis Amt None Present (0 %) -Structure Exposed N/A -Texture (Brenna-wound Skin Appearance) Scarring -Moisture (Brenna-wound Skin Appearance) No Abnormality -Color (Brenna-wound Skin Appearance) No Abnormality -Temperature (Brenna-wound Skin No Abnormality Appearance) (Pt Warm) -Tenderness on Palpation (Brenna-wound No Skin Appearance) -Ulcer Cleansing Rinsed/ Irrigated with Saline -Foul Odor after Cleansing No #5 L medial LE -Current Size (cm) - Length 10 -Current Size (cm) - Width 13.3 -Current Size (cm) - Depth 1.5 -Total Square Cm 133.0 -Photo Taken Yes -Exudate Amt Medium -Exudate Type Serosanguineous -Wound Margin Distinct, Outline Attached -Granulation Amt Medium (34-66%) -Granulation Quality Pale,[place],Red -Necrosis Amt Medium (34-66%) -Necrotic Tissue Type Adherent Slough -Structure Exposed N/A -Texture (Brenna-wound Skin Appearance) Excoriation, Scarring -Moisture (Brenna-wound Skin Appearance) No Abnormality -Color (Brenna-wound Skin Appearance) No Abnormality -Temperature (Brenna-wound Skin No Abnormality Appearance) (Pt Warm) -Tenderness on Palpation (Brenna-wound No Skin Appearance) -Ulcer Cleansing Soap and Water -Foul Odor after Cleansing No -Anesthetic Used 4% Lidocaine Solution,5% Lidocaine Gel Left Calf (cm) 47 Left Ankle (cm) 28 WC - Nurse 2 - General Ulcer CM Notes Start: 04/19/23 10:52 Freq: Status: Active Protocol: Activity Type Activity Date Activity User E-sign Co-sign Detail Recorded Client Recorded Date Recorded By Document 04/19/23 11:22 [id number] 04/19/23 11:27 04/19/23 11:22 Wound Center Nurse 2 #6 L lateral Le -Correct Patient No -Correct Side, Site, Position No -Correct Procedure No -Procedure Performed No -Post Debridement (cm) - Length 0 -Post Debridement (cm) - Width 0 -Post Debridement (cm) - Depth 0 -Total Square (Post) (cm) 0 -Area of Debridement (cm) - Length 0 -Area of Debridement (cm) - Width 0 -Total Square (Area) (cm) 0 -Wound/Ulcer Outcome Healed- Epithelialized #5 L medial LE -Correct Patient No -Correct Side, Site, Position No -Correct Procedure No -Procedure Performed No -Wound/Ulcer Outcome Not Healed Pain Scale: 0-10 Numeric Is Patient Pain Free? Yes WC - Nurse 3 - General Ulcer D/C NN Start: 04/19/23 10:52 Freq: Status: Active Protocol: Activity Type Activity Date Activity User E-sign Co-sign Detail Recorded Client Recorded Date Recorded By Document 04/19/23 11:47 DL [id number] 04/19/23 11:48 DL Edit Result 04/19/23 11:47 DL (1) [id number] 04/19/23 11:50 DL (1) #5 L medial LE - NPWT Application Charge NPWT </= 50 sq cm => NPWT & Debridement ($) => (nc) 04/19/23 11:47 Wound Care Center Nurse 3 #5 L medial LE -Ulcer Cleansing Soap and Water -Foul Odor after Cleansing No -Negative Pressure Wound Therapy Continue -Setting (mmHg) 150 -Negative Pressure is Continuous -NPWT Application Charge NPWT & Debridement (nc ) Brenna-Wound Care Barrier Treatment Response Procedure Tolerated Well Pain Scale: 0-10 Numeric Is Patient Pain Free? Yes WC - Visit Discharge Discharge Condition Stable Ambulatory Status Ambulatory Transportation Private Auto Facility Type Home Health Orders Sent Yes Assessment/Plan Assessment/Plan (1) Ulcer of left lower extremity with muscle involvement without evidence of necrosis: CODE(S): L97.925 - Non-pressure chronic ulcer of unspecified part of left lower leg with muscle involvement without evidence of necrosis (2) Ulcer of left lower extremity with fat layer exposed: CODE(S): L97.922 - Non-pressure chronic ulcer of unspecified part of left lower leg with fat layer exposed (3) MRSA (methicillin resistant Staphylococcus aureus) infection: CODE(S): A49.02 - Methicillin resistant Staphylococcus aureus infection, unspecified site (4) History of incision and drainage: CODE(S): Z98.890 - Other specified postprocedural states (5) History of necrotizing fasciitis: CODE(S): Z87.39 - Personal history of other diseases of the musculoskeletal system and connective tissue (6) Borderline personality disorder: CODE(S): F60.3 - Borderline personality disorder PLAN: Plan Patient was evaluated at the wound healing center. Wound care - Left medial leg ulcer wound VAC at 150 mmHg to be changed 3 times per week. Make sure to wash with soap and water at the time of the dressing changes. She now has home health to assist with the dressing change. Compression - Single tubi-director of audiology with MOHINI wrap on left leg for compression. Wound Culture obtained 12/29/22 positive for Enterococcus faecalis, Corynebacterium amycolatum, and Staphylococcus epidermidis. Treated with Augmentin and Doxycycline. Wound culture obtained 01/28/23 which was positive for Enterococcus faecalis and Corynebacterium striatum. She completed Augmentin. A wound culture was obtained 04/05/23 which was positive for Staphylococcus epidermidis and Staphylococcus haemolyticus. She was treated with IV Vancomycin while she was hospitalized. Prealbumin 13.9 from 04/09/23. Encourage increase protein intake including supplemental protein shakes for her increased metabolic demands from the wounds. She will follow up in one week.
--- NOTE | 2023-04-21 13:18 | WC ---
Patient called in today asking if her Percocet can be changed from Q6 hours to Q4 hours due to pain. Discussed with Hilary Saleh CNP who called in the prescription for percocet and valium that since she increased her percocet from 5 to 7.5 mg that she was increasing her frequency to Q4 hours. Discussed with patient to take her ibuprofen to assist with pain management and to take her valium that was prescribed. When this was mentioned on the phone to patient, patient's mom said in the background if Hilary could increase her valium from BID to TID? Hilary was notified and was okay to increase the frequency on Valium to TID. Patient aware and will call Wednesday if she needs more before the weekend. Patient verbalized understanding.
[2023-04-26 15:58] VITALS: BP 129/85; PULSE 124; RESP 20; TEMP 36.1; BMI 48.9
--- NOTE | 2023-04-26 16:45 | PN.PCM_ITS ---
History of Present Illness Date of Service: 04/26/23 Chief Complaint: non-healing surgical wounds of left medial and lateral leg History of Wound: Patient is a 22 year old female who presents to the wound healing center for evaluation of nonhealing surgical wounds of left left medial and lateral leg. Patient is a poor historian. Reviewed notes from [facility], she had been admitted to [place] around 11/27/22 for cellulitis and worsening infection of her left lower leg. She ended having an I&D of her left medial leg, left lateral leg and left lateral thigh. She was diagnosed with necrotizing fasciitis. Her wound cultures were positive for Enterococcus and steno. Mycoplasma IGG and IgM (+). She was sent to [facility] on 2 weeks dapto, arthur, clinda, levaquin, and micafungin. Changed Dap to to Vanc. On 12/12 stopped vanc/levaquin/arthur and started IV fluc due to diagnosis of candidemia. She was discharged home from [facility] around the second week of December. She has a history of significant for depression, personality disorder, self harm, anxiety, asthma, recurrent cellulitis and ADHD and most recently Afib and tachycardia. She states that she did not cause these wounds and did not do anything to them to make them worse. She has a history of being accused of tampering with wounds. Surgery 04/07/23 - Surgical preparation left medial leg with incision and drainage and excisional debridement nonhealing infected MRSA ulcer, (126 cm2). Operative culture were negative but she was on Vancomycin and Fluconazole for positive cultures from 04/05/23 which were positive for MRSE and Staphylococcus haemolyticus. Wound culture obtained on 12/29/22 which was positive for Enterococcus faecalis, Corynebacterium amycolatum, and MRSE. She was treated with Augmentin and Doxycycline. Wound culture obtained 01/28/23 which was positive for Enterococcus faecalis and Corynebacterium striatum. She was started on Augmentin. Left leg ultrasound obtained on 01/06/23 which showed There is no evidence of left lower extremity deep vein thrombosis. She was in [facility] for a week at the end of February for subcutaneous air around her wound. She states she cultured positive for MRSA and they had her on IV antibiotics. They used a wound VAC while she was in the hospital. She is now on Doxycycline. Today she denies fever, chills, nausea or vomiting. Progress of Wound: The left medial leg ulcer is has granulation tissue present, it is smaller in size. It continues to be very painful since her surgery. Clinically there is no appearance of infection. Objective Data Objective Data Vital Signs: Vital Signs Temp Pulse Resp BP 96.9 F L 124 H 20 H 129/85 H 04/26/23 15:58 04/26/23 15:58 04/26/23 15:58 04/26/23 15:58 Weight: 276 lb Body Mass Index (BMI) 48.9 Charges/Coding Procedures Integumentary [id number]: [id number] Global Visit Debridement Note Debridement Note Wound debrided: #5 left medial leg Laterality: Left Wound Grade/Stage: 3 Type of Debridement: Excisional debridement Anesthesia Used: 5% Lidocaine Gel Depth: Down to and including healthy tissue, in the subcutaneous layer and to muscle Percentage of wound debrided: 100 Instrument Used: 7mm curette Tissue Removed: subcutaneous tissue and muscle. Severity: Fat Layer Exposed Amount of bleeding with debridement: Mild Bleeding Controlled with: Pressure and Compression and gauze Patient tolerated procedure: Patient tolerated procedure well Post-Debridement Measurements and Additional Note: Post-Debridement Measurements/Treatment - Nurse 1 - General Ulcer Assessment Start: 04/19/23 10:52 Freq: Status: Active Protocol: BOBO Activity Type Activity Date Activity User E-sign Co-sign Detail Recorded Client Recorded Date Recorded By Document 04/19/23 10:52 DL [id number] 04/19/23 11:07 DL Document 04/26/23 15:58 DL Desktop 04/26/23 16:05 DL 04/19/23 04/26/23 10:52 15:58 - Today's Visit Information Type of service Follow-up Visit Follow-up Visit (Physician/TUBING OILER (Physician/TUBING OILER ) ) Arrival Mode Ambulatory Ambulatory Transfer Assistance None None Patient Identification Verified (Name & Yes Yes ) Patient Requires Transmission-Based No Precautions Height and Weight Body Mass Index (BMI) 48.9 48.9 BMI Classification Obese Obese Vital Signs Temperature (97.8 F-99.1 F) 97.5 F L 96.9 F L Temperature Source Temporal Temporal Pulse Rate (60-100) 102 H 124 H Pulse Location Monitor Monitor Respiratory Rate (12-18) 20 H 20 H Respiratory rate source Observation Observation Blood Pressure (90/60-120/80) 113/73 129/85 H Blood Pressure Mean (mm Hg) 86 99 Source Monitor Monitor History Since Last Visit- (Skip if this is Patient's initial visit) Have you changed medications since your No No last visit? Any new allergies or adverse reactions No No Had a fall/change in ADL's that may No No increase risk of falls Signs or symptoms of abuse and/or No No neglect since last visit Have you been in the hospital since your No No last visit? Has dressing in place as prescribed Yes Yes Has compression in place as prescribed Yes Yes Has offloadiing in place as prescribed Yes N/A Experienced any changes in pain level or No No management Pain Scale: 0-10 Numeric Is Patient Pain Free? Yes Yes WC - Nurse 1 - General Ulcer Measurement Start: 04/19/23 10:52 Freq: Status: Active Protocol: Activity Type Activity Date Activity User E-sign Co-sign Detail Recorded Client Recorded Date Recorded By Document 04/19/23 10:52 DL [id number] 04/19/23 11:07 DL Document 04/26/23 15:58 DL Desktop 04/26/23 16:05 DL 04/19/23 04/26/23 10:52 15:58 Wound Center Nurse 1 #6 L lateral Le -Current Size (cm) - Length 0 -Current Size (cm) - Width 0 -Current Size (cm) - Depth 0 -Total Square Cm 0 -Photo Taken Yes -Exudate Amt None Present -Exudate Type Serosanguineous -Wound Margin Indistinct, Non -Visible -Granulation Amt Large (67-100%) -Granulation Quality Grantley -Necrosis Amt None Present (0 %) -Structure Exposed N/A -Texture (Brenna-wound Skin Appearance) Scarring -Moisture (Brenna-wound Skin Appearance) No Abnormality -Color (Brenna-wound Skin Appearance) No Abnormality -Temperature (Brenna-wound Skin No Abnormality Appearance) (Pt Warm) -Tenderness on Palpation (Brenna-wound No Skin Appearance) -Ulcer Cleansing Rinsed/ Irrigated with Saline -Foul Odor after Cleansing No #5 L medial LE -Current Size (cm) - Length 10 10.8 -Current Size (cm) - Width 13.3 13.3 -Current Size (cm) - Depth 1.5 1.3 -Total Square Cm 133.0 143.64 -Photo Taken Yes -Exudate Amt Medium Medium -Exudate Type Serosanguineous Serosanguineous -Wound Margin Distinct, Distinct, Outline Outline Attached Attached -Granulation Amt Medium (34-66%) Large (67-100%) -Granulation Quality Pale,Grantley,Red Red -Necrosis Amt Medium (34-66%) Small (1-33%) -Necrotic Tissue Type Adherent Slough Adherent Slough -Structure Exposed N/A N/A -Texture (Brenna-wound Skin Appearance) Excoriation, Scarring Scarring -Moisture (Brenna-wound Skin Appearance) No Abnormality No Abnormality -Color (Brenna-wound Skin Appearance) No Abnormality No Abnormality -Temperature (Brenna-wound Skin No Abnormality No Abnormality Appearance) (Pt Warm) (Pt Warm) -Tenderness on Palpation (Brenna-wound No Yes Skin Appearance) -Ulcer Cleansing Soap and Water Soap and Water -Foul Odor after Cleansing No No -Anesthetic Used 4% Lidocaine 4% Lidocaine Solution,5% Solution Lidocaine Gel Left Calf (cm) 47 Left Ankle (cm) 28 - Nurse 2 - General Ulcer CM Notes Start: 04/19/23 10:52 Freq: Status: Active Protocol: Activity Type Activity Date Activity User E-sign Co-sign Detail Recorded Client Recorded Date Recorded By Document 04/19/23 11:22 [id number] 04/19/23 11:27 Document 04/26/23 16:16 Desktop 04/26/23 16:19 04/19/23 04/26/23 11:22 16:16 Wound Center Nurse 2 #6 L lateral Le -Correct Patient No -Correct Side, Site, Position No -Correct Procedure No -Procedure Performed No -Post Debridement (cm) - Length 0 -Post Debridement (cm) - Width 0 -Post Debridement (cm) - Depth 0 -Total Square (Post) (cm) 0 -Area of Debridement (cm) - Length 0 -Area of Debridement (cm) - Width 0 -Total Square (Area) (cm) 0 -Wound/Ulcer Outcome Healed- Epithelialized #5 L medial LE -Time 16:16 -Correct Patient No Yes -Correct Side, Site, Position No Yes -Correct Procedure No Yes -Procedure Performed No Yes -Type of Procedure Debridement -Clinical Debridement Muscle / Fascia -Tissue Removed Muscle,Fascia -Post Debridement (cm) - Length 11.5 -Post Debridement (cm) - Width 13.6 -Post Debridement (cm) - Depth 2.3 -Total Square (Post) (cm) 156.40 -Area of Debridement (cm) - Length 11.5 -Area of Debridement (cm) - Width 13.6 -Total Square (Area) (cm) 156.40 -Tunneling No -Undermining/Tunneling No -Circular Undermining No -Wound/Ulcer Outcome Not Healed Not Healed -Ulcer Cleansing Rinsed/ Irrigated with Saline -Foul Odor after Cleansing No -Bioengineered Tissue No -Bleeding Controlled with Pressure -Treatment Response Procedure Tolerated Well -Offloading No -Debridement - Muscle / Fascia, 1st Yes 20sq cm -Debridement, Muscle/Fascia, ea addt'l 7 20sq cm or part thereof Pain Scale: 0-10 Numeric Is Patient Pain Free? Yes Yes WC - Nurse 3 - General Ulcer D/C NN Start: 04/19/23 10:52 Freq: Status: Active Protocol: Activity Type Activity Date Activity User E-sign Co-sign Detail Recorded Client Recorded Date Recorded By Document 04/19/23 11:47 DL [id number] 04/19/23 11:48 DL Edit Result 04/19/23 11:47 DL (1) [id number] 04/19/23 11:50 DL Edit Result 04/19/23 11:47 DL (2) [id number] 04/20/23 07:50 PL Document 04/26/23 16:19 DL Desktop 04/26/23 16:22 DL Edit Result 04/26/23 16:19 DL (3) Desktop 04/26/23 16:41 DL (1) #5 L medial LE - NPWT Application Charge NPWT </= 50 sq cm => NPWT & Debridement ($) => (nc) (2) #5 L medial LE - NPWT Application Charge NPWT & Debridement => NPWT > 50 sq cm ($ (nc) => ) (3) #5 L medial LE - Negative Pressure Wound Therapy => Continue - Setting (mmHg) => 150 - Negative Pressure is => Continuous - Primary Dressing Applied Hysept ($) => - Primary Dressing Covered/Secured with Dry Gauze,Secured => with Tape => - Other Covering => ABd padding - NPWT Application Charge => NPWT & Debridement => (nc) Left - Tubular Bandage => Double Layer - Size of Tubigrip Used => Size F - Size F ($) => 2 04/19/23 04/26/23 11:47 16:19 Wound Care Center Nurse 3 #5 L medial LE -Ulcer Cleansing Soap and Water Soap and Water -Foul Odor after Cleansing No No -Negative Pressure Wound Therapy Continue Continue -Setting (mmHg) 150 150 -Negative Pressure is Continuous Continuous -Other Covering ABd padding -NPWT Application Charge NPWT > 50 sq cm NPWT & ($) Debridement (nc ) Brenna-Wound Care Barrier Left -Tubular Bandage Double Layer -Size of Tubigrip Used Size F -Size F ($) 2 Treatment Response Procedure Procedure Tolerated Well Tolerated Well Pain Scale: 0-10 Numeric Is Patient Pain Free? Yes Yes WC - Visit Discharge Discharge Condition Stable Stable Ambulatory Status Ambulatory Ambulatory Transportation Private Auto Private Auto Notes: Mother given instructions on dressing applications. Facility Type Home Health Home Health Orders Sent Yes Yes Assessment/Plan Assessment/Plan (1) Ulcer of left lower extremity with muscle involvement without evidence of necrosis: CODE(S): L97.925 - Non-pressure chronic ulcer of unspecified part of left lower leg with muscle involvement without evidence of necrosis (2) Ulcer of left lower extremity with fat layer exposed: CODE(S): L97.922 - Non-pressure chronic ulcer of unspecified part of left lower leg with fat layer exposed (3) MRSA (methicillin resistant Staphylococcus aureus) infection: CODE(S): A49.02 - Methicillin resistant Staphylococcus aureus infection, unspecified site (4) History of incision and drainage: CODE(S): Z98.890 - Other specified postprocedural states (5) History of necrotizing fasciitis: CODE(S): Z87.39 - Personal history of other diseases of the musculoskeletal system and connective tissue (6) Borderline personality disorder: CODE(S): F60.3 - Borderline personality disorder PLAN: Plan Patient was evaluated at the wound healing center. Wound care - Left medial leg ulcer wound VAC at 150 mmHg to be changed 3 times per week. Make sure to wash with soap and water at the time of the dressing changes. She now has home health to assist with the dressing change. Compression - Single tubi-electronic resources librarian with MOHINI wrap on left leg for compression. Wound Culture obtained 12/29/22 positive for Enterococcus faecalis, Corynebacterium amycolatum, and Staphylococcus epidermidis. Treated with Augmentin and Doxycycline. Wound culture obtained 01/28/23 which was positive for Enterococcus faecalis and Corynebacterium striatum. She completed Augmentin. A wound culture was obtained 04/05/23 which was positive for Staphylococcus epidermidis and Staphylococcus haemolyticus. She was treated with IV Vancomycin while she was hospitalized. Prealbumin 13.9 from 04/09/23. Encourage increase protein intake including supplemental protein shakes for her increased metabolic demands from the wounds. Will renew Percocet 7.5 mg (28 tabs). PDMP reviewed. She will follow up in one week.
[2023-05-05 11:07] VITALS: BP 127/82; PULSE 95; RESP 18; TEMP 35.9; BMI 48.9
--- NOTE | 2023-05-05 11:49 | PCM.WC.PN ---
History of Present Illness Date of Service: 05/05/23 Chief Complaint: non-healing surgical wounds of left medial and lateral leg History of Wound: Patient is a 22 year old female who presents to the wound healing center for evaluation of nonhealing surgical wounds of left left medial and lateral leg. Patient is a poor historian. Reviewed notes from [facility], she had been admitted to [facility] around 11/27/22 for cellulitis and worsening infection of her left lower leg. She ended having an I&D of her left medial leg, left lateral leg and left lateral thigh. She was diagnosed with necrotizing fasciitis. Her wound cultures were positive for Enterococcus and steno. Mycoplasma IGG and IgM (+). She was sent to [facility] on 2 weeks dapto, arthur, clinda, levaquin, and micafungin. Changed Dap to to Vanc. On 12/12 stopped vanc/levaquin/arthur and started IV fluc due to diagnosis of candidemia. She was discharged home from [facility] around the second week of December. She has a history of significant for depression, personality disorder, self harm, anxiety, asthma, recurrent cellulitis and ADHD and most recently Afib and tachycardia. She states that she did not cause these wounds and did not do anything to them to make them worse. She has a history of being accused of tampering with wounds. Surgery 04/07/23 - Surgical preparation left medial leg with incision and drainage and excisional debridement nonhealing infected MRSA ulcer, (126 cm2). Operative culture were negative but she was on Vancomycin and Fluconazole for positive cultures from 04/05/23 which were positive for MRSE and Staphylococcus haemolyticus. Wound culture obtained on 12/29/22 which was positive for Enterococcus faecalis, Corynebacterium amycolatum, and MRSE. She was treated with Augmentin and Doxycycline. Wound culture obtained 01/28/23 which was positive for Enterococcus faecalis and Corynebacterium striatum. She was started on Augmentin. Left leg ultrasound obtained on 01/06/23 which showed There is no evidence of left lower extremity deep vein thrombosis. She was in [facility] for a week at the end of February for subcutaneous air around her wound. She states she cultured positive for MRSA and they had her on IV antibiotics. They used a wound VAC while she was in the hospital. She is now on Doxycycline. Today she denies fever, chills, nausea or vomiting. Progress of Wound: The left medial leg ulcer is smaller in size. The wound bed is beefy pink. Clinically there is no appearance of infection. She states she spiked a fever last week of 100.1 after being seen at the wound center. She told her PCP, Dr. Bailey, and he adam labs and suggested a wound culture before treating her with antibiotics. Objective Data Objective Data Vital Signs: Vital Signs Temp Pulse Resp BP O2 Del Method 96.6 F L 95 18 127/82 H Room Air 05/05/23 11:07 05/05/23 11:07 05/05/23 11:07 05/05/23 11:07 05/05/23 11:07 Oxygen Delivery Method Room Air Weight: 276 lb Body Mass Index (BMI) 48.9 Charges/Coding Procedures Integumentary 111xxx-113xx: [id number] Global Visit Debridement Note Debridement Note Wound debrided: #5 left medial leg Laterality: Left Wound Grade/Stage: 3 Type of Debridement: Excisional debridement Anesthesia Used: 5% Lidocaine Gel Depth: Down to and including healthy tissue, in the subcutaneous layer and to muscle Percentage of wound debrided: 100 Instrument Used: 7mm curette Tissue Removed: subcutaneous tissue and muscle. Severity: Fat Layer Exposed Amount of bleeding with debridement: Mild Bleeding Controlled with: Pressure and Compression and gauze Patient tolerated procedure: Patient tolerated procedure well Post-Debridement Measurements and Additional Note: Post-Debridement Measurements/Treatment - Nurse 1 - General Ulcer Assessment Start: 04/19/23 10:52 Freq: Status: Active Protocol: BOBO Activity Type Activity Date Activity User E-sign Co-sign Detail Recorded Client Recorded Date Recorded By Document 04/19/23 10:52 DL [id number] 04/19/23 11:07 DL Document 04/26/23 15:58 DL Desktop 04/26/23 16:05 DL Document 05/05/23 11:07 KW Desktop 05/05/23 11:24 KW 04/19/23 04/26/23 05/05/23 10:52 15:58 11:07 - Today's Visit Information Type of service Follow-up Visit Follow-up Visit Follow-up Visit (Physician/AUTO REPAIR TECHNICIAN (Physician/AUTO REPAIR TECHNICIAN (Physician/AUTO REPAIR TECHNICIAN ) ) ) Arrival Mode Ambulatory Ambulatory Ambulatory,Cane Transfer Assistance None None Accompanied by MOM Patient Identification Verified (Name & Yes Yes Yes ) Patient Requires Transmission-Based No Precautions Height and Weight Body Mass Index (BMI) 48.9 48.9 48.9 BMI Classification Obese Obese Obese Vital Signs Temperature (97.8 F-99.1 F) 97.5 F L 96.9 F L 96.6 F L Temperature Source Temporal Temporal Temporal Pulse Rate (60-100) 102 H 124 H 95 Pulse Location Monitor Monitor Monitor Respiratory Rate (12-18) 20 H 20 H 18 Respiratory rate source Observation Observation Ausculation Oxygen Delivery Method Room Air Blood Pressure (90/60-120/80) 113/73 129/85 H 127/82 H Blood Pressure Mean (mm Hg) 86 99 97 Source Monitor Monitor Monitor Position Semi-Fowlers Blood Pressure Location Left Arm History Since Last Visit- (Skip if this is Patient's initial visit) Have you changed medications since your No No Yes last visit? Any new allergies or adverse reactions No No No Had a fall/change in ADL's that may No No No increase risk of falls Signs or symptoms of abuse and/or No No No neglect since last visit Have you been in the hospital since your No No No last visit? Has dressing in place as prescribed Yes Yes Yes Has compression in place as prescribed Yes Yes Yes Has offloadiing in place as prescribed Yes N/A Experienced any changes in pain level or No No No management Left Footwear Regular Shoe Right Footwear Regular Shoe Pain Scale: 0-10 Numeric Is Patient Pain Free? Yes Yes Yes LLE -Description Sharp,Burning -Intensity 7 -Alleviating Factors/Interventions Medication WC - Nurse 1 - General Ulcer Measurement Start: 04/19/23 10:52 Freq: Status: Active Protocol: Activity Type Activity Date Activity User E-sign Co-sign Detail Recorded Client Recorded Date Recorded By Document 04/19/23 10:52 DL [id number] 04/19/23 11:07 DL Document 04/26/23 15:58 DL Desktop 04/26/23 16:05 DL Document 05/05/23 11:07 KW Desktop 05/05/23 11:24 KW 04/19/23 04/26/23 05/05/23 10:52 15:58 11:07 Wound Center Nurse 1 #6 L lateral Le -Current Size (cm) - Length 0 -Current Size (cm) - Width 0 -Current Size (cm) - Depth 0 -Total Square Cm 0 -Photo Taken Yes -Exudate Amt None Present -Exudate Type Serosanguineous -Wound Margin Indistinct, Non -Visible -Granulation Amt Large (67-100%) -Granulation Quality [place] -Necrosis Amt None Present (0 %) -Structure Exposed N/A -Texture (Brenna-wound Skin Appearance) Scarring -Moisture (Brenna-wound Skin Appearance) No Abnormality -Color (Brenna-wound Skin Appearance) No Abnormality -Temperature (Brenna-wound Skin No Abnormality Appearance) (Pt Warm) -Tenderness on Palpation (Brenna-wound No Skin Appearance) -Ulcer Cleansing Rinsed/ Irrigated with Saline -Foul Odor after Cleansing No #5 L medial LE -Current Size (cm) - Length 10 10.8 11.4 -Current Size (cm) - Width 13.3 13.3 13 -Current Size (cm) - Depth 1.5 1.3 1.3 -Total Square Cm 133.0 143.64 148.2 -Photo Taken Yes Yes -Undermining/Tunneling Yes -Undermining/Tunneling Starts (O'clock 3 ) -Undermining/Tunneling Ends (O'clock) 3 -Maximum Distance (cm) 5 -Exudate Amt Medium Medium Large -Exudate Type Serosanguineous Serosanguineous Serosanguineous -Wound Margin Distinct, Distinct, Distinct, Outline Outline Outline Attached Attached Attached -Granulation Amt Medium (34-66%) Large (67-100%) -Granulation Quality Pale,[place],Red Red Red -Necrosis Amt Medium (34-66%) Small (1-33%) Small (1-33%) -Necrotic Tissue Type Adherent Slough Adherent Slough Adherent Slough -Structure Exposed N/A N/A -Texture (Brenna-wound Skin Appearance) Excoriation, Scarring Assessed Scarring -Moisture (Brenna-wound Skin Appearance) No Abnormality No Abnormality Assessed -Color (Brenna-wound Skin Appearance) No Abnormality No Abnormality Assessed, Erythema -Temperature (Brenna-wound Skin No Abnormality No Abnormality No Abnormality Appearance) (Pt Warm) (Pt Warm) (Pt Warm) -Tenderness on Palpation (Brenna-wound No Yes Skin Appearance) -Ulcer Cleansing Soap and Water Soap and Water Soap and Water -Foul Odor after Cleansing No No No -Anesthetic Used 4% Lidocaine 4% Lidocaine 4% Lidocaine Solution,5% Solution Solution Lidocaine Gel Left Calf (cm) 47 45.5 Left Ankle (cm) 28 28 - Nurse 2 - General Ulcer CM Notes Start: 04/19/23 10:52 Freq: Status: Active Protocol: Activity Type Activity Date Activity User E-sign Co-sign Detail Recorded Client Recorded Date Recorded By Document 04/19/23 11:22 [id number] 04/19/23 11:27 Document 04/26/23 16:16 Desktop 04/26/23 16:19 Document 05/05/23 11:31 Desktop 05/05/23 11:34 04/19/23 04/26/23 05/05/23 11:22 16:16 11:31 Wound Center Nurse 2 #6 L lateral Le -Correct Patient No -Correct Side, Site, Position No -Correct Procedure No -Procedure Performed No -Post Debridement (cm) - Length 0 -Post Debridement (cm) - Width 0 -Post Debridement (cm) - Depth 0 -Total Square (Post) (cm) 0 -Area of Debridement (cm) - Length 0 -Area of Debridement (cm) - Width 0 -Total Square (Area) (cm) 0 -Wound/Ulcer Outcome Healed- Epithelialized #5 L medial LE -Time 16:16 11:33 -Correct Patient No Yes Yes -Correct Side, Site, Position No Yes Yes -Correct Procedure No Yes Yes -Procedure Performed No Yes Yes -Type of Procedure Debridement Debridement -Clinical Debridement Muscle / Fascia Muscle / Fascia -Tissue Removed Muscle,Fascia Muscle -Post Debridement (cm) - Length 11.5 11.5 -Post Debridement (cm) - Width 13.6 13.5 -Post Debridement (cm) - Depth 2.3 1.9 -Total Square (Post) (cm) 156.40 155.25 -Area of Debridement (cm) - Length 11.5 11.5 -Area of Debridement (cm) - Width 13.6 13.5 -Total Square (Area) (cm) 156.40 155.25 -Tunneling No No -Undermining/Tunneling No No -Circular Undermining No No -Wound/Ulcer Outcome Not Healed Not Healed Not Healed -Ulcer Cleansing Rinsed/ Irrigated with Saline -Foul Odor after Cleansing No No -Bioengineered Tissue No No -Bleeding Controlled with Pressure Pressure -Treatment Response Procedure Procedure Tolerated Well Tolerated Well -Offloading No No -Debridement - Muscle / Fascia, 1st Yes Yes 20sq cm -Debridement, Muscle/Fascia, ea addt'l 7 7 20sq cm or part thereof Pain Scale: 0-10 Numeric Is Patient Pain Free? Yes Yes Yes WC - Nurse 3 - General Ulcer D/C NN Start: 04/19/23 10:52 Freq: Status: Active Protocol: Activity Type Activity Date Activity User E-sign Co-sign Detail Recorded Client Recorded Date Recorded By Document 04/19/23 11:47 DL [id number] 04/19/23 11:48 DL Edit Result 04/19/23 11:47 DL (1) [id number] 04/19/23 11:50 DL Edit Result 04/19/23 11:47 DL (2) [id number] 04/20/23 07:50 PL Document 04/26/23 16:19 DL Desktop 04/26/23 16:22 DL Edit Result 04/26/23 16:19 DL (3) Desktop 04/26/23 16:41 DL (1) #5 L medial LE - NPWT Application Charge NPWT </= 50 sq cm => NPWT & Debridement ($) => (nc) (2) #5 L medial LE - NPWT Application Charge NPWT & Debridement => NPWT > 50 sq cm ($ (nc) => ) (3) #5 L medial LE - Negative Pressure Wound Therapy => Continue - Setting (mmHg) => 150 - Negative Pressure is => Continuous - Primary Dressing Applied Hysept ($) => - Primary Dressing Covered/Secured with Dry Gauze,Secured => with Tape => - Other Covering => ABd padding - NPWT Application Charge => NPWT & Debridement => (nc) Left - Tubular Bandage => Double Layer - Size of Tubigrip Used => Size F - Size F ($) => 2 04/19/23 04/26/23 11:47 16:19 Wound Care Center Nurse 3 #5 L medial LE -Ulcer Cleansing Soap and Water Soap and Water -Foul Odor after Cleansing No No -Negative Pressure Wound Therapy Continue Continue -Setting (mmHg) 150 150 -Negative Pressure is Continuous Continuous -Other Covering ABd padding -NPWT Application Charge NPWT > 50 sq cm NPWT & ($) Debridement (nc ) Brenna-Wound Care Barrier Left -Tubular Bandage Double Layer -Size of Tubigrip Used Size F -Size F ($) 2 Treatment Response Procedure Procedure Tolerated Well Tolerated Well Pain Scale: 0-10 Numeric Is Patient Pain Free? Yes Yes WC - Visit Discharge Discharge Condition Stable Stable Ambulatory Status Ambulatory Ambulatory Transportation Private Auto Private Auto Notes: Mother given instructions on dressing applications. Facility Type Home Health Home Health Orders Sent Yes Yes Assessment/Plan Assessment/Plan (1) Ulcer of left lower extremity with muscle involvement without evidence of necrosis: CODE(S): L97.925 - Non-pressure chronic ulcer of unspecified part of left lower leg with muscle involvement without evidence of necrosis (2) Ulcer of left lower extremity with fat layer exposed: CODE(S): L97.922 - Non-pressure chronic ulcer of unspecified part of left lower leg with fat layer exposed (3) MRSA (methicillin resistant Staphylococcus aureus) infection: CODE(S): A49.02 - Methicillin resistant Staphylococcus aureus infection, unspecified site (4) History of incision and drainage: CODE(S): Z98.890 - Other specified postprocedural states (5) History of necrotizing fasciitis: CODE(S): Z87.39 - Personal history of other diseases of the musculoskeletal system and connective tissue (6) Borderline personality disorder: CODE(S): F60.3 - Borderline personality disorder PLAN: Plan Patient was evaluated at the wound healing center. Wound care - Left medial leg ulcer wound VAC at 150 mmHg to be changed 3 times per week. Make sure to wash with soap and water at the time of the dressing changes. She now has home health to assist with the dressing change. 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 Wound Culture obtained 12/29/22 positive for Enterococcus faecalis, Corynebacterium amycolatum, and Staphylococcus epidermidis. Treated with Augmentin and Doxycycline. Wound culture obtained 01/28/23 which was positive for Enterococcus faecalis and Corynebacterium striatum. She completed Augmentin. A wound culture was obtained 04/05/23 which was positive for Staphylococcus epidermidis and Staphylococcus haemolyticus. She was treated with IV Vancomycin while she was hospitalized. Prealbumin 13.9 from 04/09/23. Encourage increase protein intake including supplemental protein shakes for her increased metabolic demands from the wounds. Renewed her Valium (14 tabs) yesterday after PDMP reviewed. I phoned and spoke with her PCP, Dr. Bailey after her appointment. I explained that clinically her wound did not look infected. Since she only had one fever, last week that was 100.1 (100.[address] Bailey), we will continue to monitory closely. She is starting to have some resistance to some antibiotics, so my concern is we need to be more conservative with treatment. He also said that he is trying to get Buprenorphine approved to get her better pain control since percocet is not working for her pain. If this does occur, he will take over her pain management. I spoke yesterday, 05/04/[address] Jain, her psychiatrist, to make sure he was aware of her most recent surgery and the CT findings. I also wanted to know if there was anything I should be doing for Josiane besides the wound care. I am trying to keep open communication between her providers so that we are all aware of what is going on with her so that she receives the best care possible. She will follow up in one week.
== END 2023-05-08 23:59 | disposition home or self-care (01) ==
LOC: WC 11:00
PROVIDERS: PCP Student in an Organized Health Care Education/Training Program; Referring Provider Student in an Organized Health Care Education/Training Program; Visit Provider Nurse Practitioner Family
DX: L97.822 Non-pressure chronic ulcer of other part of left lower leg with fat layer exposed (principal); I48.91 Unspecified atrial fibrillation; B95.62 Methicillin resistant Staphylococcus aureus infection as the cause of diseases classified elsewhere; B99.8 Other infectious disease; J45.909 Unspecified asthma, uncomplicated
CPT/HCPCS: 97605; 11043; 11046; 97606; 99214; G0463

== ENCOUNTER 2023-06-07 13:00 | Outpatient (RCR) | payer MEDICAID, SELFPAY ==
[2023-05-09 00:34] VITALS: BP 127/82; PULSE 95; RESP 18; TEMP 35.9; BMI 48.9
[2023-05-12 11:10] VITALS: BP 110/69; PULSE 111; RESP 20; TEMP 36.3; BMI 48.9
--- NOTE | 2023-05-12 11:55 | PN.PCM_ITS ---
History of Present Illness Date of Service: 05/12/23 Chief Complaint: non-healing surgical wounds of left medial and lateral leg History of Wound: Patient is a 22 year old female who presents to the wound healing center for evaluation of nonhealing surgical wounds of left left medial and lateral leg. Patient is a poor historian. Reviewed notes from [facility], she had been admitted to [place] around 11/27/22 for cellulitis and worsening infection of her left lower leg. She ended having an I&D of her left medial leg, left lateral leg and left lateral thigh. She was diagnosed with necrotizing fasciitis. Her wound cultures were positive for Enterococcus and steno. Mycoplasma IGG and IgM (+). She was sent to [facility] on 2 weeks dapto, arthur, clinda, levaquin, and micafungin. Changed Dap to to Vanc. On 12/12 stopped vanc/levaquin/arthur and started IV fluc due to diagnosis of candidemia. She was discharged home from [facility] around the second week of December. She has a history of significant for depression, personality disorder, self harm, anxiety, asthma, recurrent cellulitis and ADHD and most recently Afib and tachycardia. She states that she did not cause these wounds and did not do anything to them to make them worse. She has a history of being accused of tampering with wounds. Surgery 04/07/23 - Surgical preparation left medial leg with incision and drainage and excisional debridement nonhealing infected MRSA ulcer, (126 cm2). Operative culture were negative but she was on Vancomycin and Fluconazole for positive cultures from 04/05/23 which were positive for MRSE and Staphylococcus haemolyticus. Wound culture obtained on 12/29/22 which was positive for Enterococcus faecalis, Corynebacterium amycolatum, and MRSE. She was treated with Augmentin and Doxycycline. Wound culture obtained 01/28/23 which was positive for Enterococcus faecalis and Corynebacterium striatum. She was started on Augmentin. Left leg ultrasound obtained on 01/06/23 which showed There is no evidence of left lower extremity deep vein thrombosis. She was in [facility] for a week at the end of February for subcutaneous air around her wound. She states she cultured positive for MRSA and they had her on IV antibiotics. They used a wound VAC while she was in the hospital. She is now on Doxycycline. Today she denies fever, chills, nausea or vomiting. Progress of Wound: The left medial leg ulcer is smaller in size. The wound bed is beefy pink. She has had labs redrawn at her PCP and her inflammatory markers are down compared to last week. Objective Data Objective Data Vital Signs: Vital Signs Temp Pulse Resp BP 97.4 F L 111 H 20 H 110/69 05/12/23 11:10 05/12/23 11:10 05/12/23 11:10 05/12/23 11:10 Weight: 276 lb Body Mass Index (BMI) 48.9 Charges/Coding Procedures Integumentary 111xxx-113xx: 60722 Global Visit Debridement Note Debridement Note Wound debrided: #5 left medial leg Laterality: Left Wound Grade/Stage: 3 Type of Debridement: Excisional debridement Anesthesia Used: 5% Lidocaine Gel Depth: Down to and including healthy tissue, in the subcutaneous layer and to muscle Percentage of wound debrided: 100 Instrument Used: 7mm curette Tissue Removed: subcutaneous tissue and muscle. Severity: Fat Layer Exposed Amount of bleeding with debridement: Mild Bleeding Controlled with: Pressure and Compression and gauze Patient tolerated procedure: Patient tolerated procedure well Post-Debridement Measurements and Additional Note: Post-Debridement Measurements/Treatment - Nurse 1 - General Ulcer Assessment Start: 05/12/23 11:10 Freq: Status: Active Protocol: BOBO Activity Type Activity Date Activity User E-sign Co-sign Detail Recorded Client Recorded Date Recorded By Document 05/12/23 11:10 DL Desktop 05/12/23 11:17 DL 05/12/23 11:10 - Today's Visit Information Type of service Follow-up Visit (Physician/NAPPER GRINDER ) Arrival Mode Ambulatory Transfer Assistance None Patient Identification Verified (Name & Yes ) Patient Requires Transmission-Based No Precautions Height and Weight Body Mass Index (BMI) 48.9 BMI Classification Obese Vital Signs Temperature (97.8 F-99.1 F) 97.4 F L Temperature Source Temporal Pulse Rate (60-100) 111 H Pulse Location Monitor Respiratory Rate (12-18) 20 H Respiratory rate source Observation Blood Pressure (90/60-120/80) 110/69 Blood Pressure Mean (mm Hg) 82 Source Monitor History Since Last Visit- (Skip if this is Patient's initial visit) Have you changed medications since your No last visit? Any new allergies or adverse reactions No Had a fall/change in ADL's that may No increase risk of falls Signs or symptoms of abuse and/or No neglect since last visit Have you been in the hospital since your No last visit? Has dressing in place as prescribed Yes Has compression in place as prescribed Yes Has offloadiing in place as prescribed N/A Experienced any changes in pain level or No management Pain Scale: 0-10 Numeric Is Patient Pain Free? Yes STALIN - Nurse 1 - General Ulcer Measurement Start: 05/12/23 11:10 Freq: Status: Active Protocol: Activity Type Activity Date Activity User E-sign Co-sign Detail Recorded Client Recorded Date Recorded By Document 05/12/23 11:10 DL Desktop 05/12/23 11:17 DL 05/12/23 11:10 Wound Center Nurse 1 #5 L medial LE -Current Size (cm) - Length 9.2 -Current Size (cm) - Width 13.8 -Current Size (cm) - Depth 1.5 -Total Square Cm 126.96 -Photo Taken Yes -Undermining/Tunneling Starts (O'clock 12 ) -Undermining/Tunneling Ends (O'clock) 1 -Maximum Distance (cm) 1 -Exudate Amt Medium -Exudate Type Serosanguineous -Wound Margin Distinct, Outline Attached -Granulation Amt Large (67-100%) -Granulation Quality Red -Necrosis Amt Small (1-33%) -Necrotic Tissue Type Adherent Slough -Structure Exposed N/A -Texture (Brenna-wound Skin Appearance) Scarring,Rash -Color (Brenna-wound Skin Appearance) No Abnormality -Temperature (Brenna-wound Skin No Abnormality Appearance) (Pt Warm) -Tenderness on Palpation (Brenna-wound No Skin Appearance) -Ulcer Cleansing Soap and Water -Foul Odor after Cleansing No -Anesthetic Used 4% Lidocaine Solution Left Calf (cm) 46.6 Left Ankle (cm) 27.5 WC - Nurse 2 - General Ulcer CM Notes Start: 05/12/23 11:10 Freq: Status: Active Protocol: Activity Type Activity Date Activity User E-sign Co-sign Detail Recorded Client Recorded Date Recorded By Document 05/12/23 11:23 JF Laptop 05/12/23 11:27 JF 05/12/23 11:23 Wound Center Nurse 2 #5 L medial LE -Time 11:25 -Correct Patient Yes -Correct Side, Site, Position Yes -Correct Procedure Yes -Procedure Performed Yes -Type of Procedure Debridement -Clinical Debridement Muscle / Fascia -Tissue Removed Muscle,Fascia -Post Debridement (cm) - Length 10.5 -Post Debridement (cm) - Width 14.4 -Post Debridement (cm) - Depth 1.9 -Total Square (Post) (cm) 151.20 -Area of Debridement (cm) - Length 10.5 -Area of Debridement (cm) - Width 14.4 -Total Square (Area) (cm) 151.20 -Tunneling No -Undermining/Tunneling No -Circular Undermining No -Wound/Ulcer Outcome Not Healed -Ulcer Cleansing Rinsed/ Irrigated with Saline -Foul Odor after Cleansing No -Bioengineered Tissue No -Bleeding Controlled with Pressure -Treatment Response Procedure Tolerated Well -Offloading No -Debridement - Muscle / Fascia, 1st Yes 20sq cm -Debridement, Muscle/Fascia, ea addt'l 7 20sq cm or part thereof Pain Scale: 0-10 Numeric Is Patient Pain Free? Yes Assessment/Plan Assessment/Plan (1) Ulcer of left lower extremity with muscle involvement without evidence of necrosis: CODE(S): L97.925 - Non-pressure chronic ulcer of unspecified part of left lower leg with muscle involvement without evidence of necrosis (2) Ulcer of left lower extremity with fat layer exposed: CODE(S): L97.922 - Non-pressure chronic ulcer of unspecified part of left lower leg with fat layer exposed (3) MRSA (methicillin resistant Staphylococcus aureus) infection: CODE(S): A49.02 - Methicillin resistant Staphylococcus aureus infection, unspecified site (4) History of incision and drainage: CODE(S): Z98.890 - Other specified postprocedural states (5) History of necrotizing fasciitis: CODE(S): Z87.39 - Personal history of other diseases of the musculoskeletal system and connective tissue (6) Borderline personality disorder: CODE(S): F60.3 - Borderline personality disorder PLAN: Plan Patient was evaluated at the wound healing center. Wound care - Left medial leg ulcer wound VAC at 150 mmHg to be changed 3 times per week. Make sure to wash with soap and water at the time of the dressing changes. She now has home health to assist with the dressing change. Compression - Single tubi-liberal arts teacher with MOHINI wrap on left leg for compression. Wound Culture obtained 12/29/22 positive for Enterococcus faecalis, Corynebacterium amycolatum, and Staphylococcus epidermidis. Treated with Augmentin and Doxycycline. Wound culture obtained 01/28/23 which was positive for Enterococcus faecalis and Corynebacterium striatum. She completed Augmentin. A wound culture was obtained 04/05/23 which was positive for Staphylococcus epidermidis and Staphylococcus haemolyticus. She was treated with IV Vancomycin while she was hospitalized. Prealbumin 13.9 from 04/09/23. Encourage increase protein intake including supplemental protein shakes for her increased metabolic demands from the wounds. Her PCP, Dr. Bailey is managing her pain medications. She will follow up in one week.
[2023-05-19 11:03] VITALS: BP 110/75; PULSE 109; RESP 22; TEMP 36.6; BMI 48.9
--- NOTE | 2023-05-19 11:42 | PCM.WC.PN ---
History of Present Illness Date of Service: 05/19/23 Chief Complaint: non-healing surgical wounds of left medial and lateral leg History of Wound: Patient is a 22 year old female who presents to the wound healing center for evaluation of nonhealing surgical wounds of left left medial and lateral leg. Patient is a poor historian. Reviewed notes from [facility], she had been admitted to [place] [facility] around 11/27/22 for cellulitis and worsening infection of her left lower leg. She ended having an I&D of her left medial leg, left lateral leg and left lateral thigh. She was diagnosed with necrotizing fasciitis. Her wound cultures were positive for Enterococcus and steno. Mycoplasma IGG and IgM (+). She was sent to [facility] on 2 weeks dapto, arthur, clinda, levaquin, and micafungin. Changed Dap to to Vanc. On 12/12 stopped vanc/levaquin/arthur and started IV fluc due to diagnosis of candidemia. She was discharged home from [facility] around the second week of December. She has a history of significant for depression, personality disorder, self harm, anxiety, asthma, recurrent cellulitis and ADHD and most recently Afib and tachycardia. She states that she did not cause these wounds and did not do anything to them to make them worse. She has a history of being accused of tampering with wounds. Surgery 04/07/23 - Surgical preparation left medial leg with incision and drainage and excisional debridement nonhealing infected MRSA ulcer, (126 cm2). Operative culture were negative but she was on Vancomycin and Fluconazole for positive cultures from 04/05/23 which were positive for MRSE and Staphylococcus haemolyticus. Wound culture obtained on 12/29/22 which was positive for Enterococcus faecalis, Corynebacterium amycolatum, and MRSE. She was treated with Augmentin and Doxycycline. Wound culture obtained 01/28/23 which was positive for Enterococcus faecalis and Corynebacterium striatum. She was started on Augmentin. Left leg ultrasound obtained on 01/06/23 which showed There is no evidence of left lower extremity deep vein thrombosis. She was in [facility] for a week at the end of February for subcutaneous air around her wound. She states she cultured positive for MRSA and they had her on IV antibiotics. They used a wound VAC while she was in the hospital. She is now on Doxycycline. Today she denies fever, chills, nausea or vomiting. Progress of Wound: The left medial leg ulcer is smaller in size. The wound bed is beefy pink. Brenna wound is excoriated. Her PCP ordered a wound culture for home health to obtain and she states she has MRSA and he is treating it. Objective Data Objective Data Vital Signs: Vital Signs Temp Pulse Resp BP 97.8 F 109 H 22 H 110/75 05/19/23 11:03 05/19/23 11:03 05/19/23 11:03 05/19/23 11:03 Weight: 276 lb Body Mass Index (BMI) 48.9 Charges/Coding Procedures Integumentary 111xxx-113xx: [id number] Global Visit Debridement Note Debridement Note Wound debrided: #5 left medial leg Laterality: Left Wound Grade/Stage: 3 Type of Debridement: Excisional debridement Anesthesia Used: 5% Lidocaine Gel Depth: Down to and including healthy tissue, in the subcutaneous layer and to muscle Percentage of wound debrided: 100 Instrument Used: 7mm curette Tissue Removed: subcutaneous tissue and muscle. Severity: Fat Layer Exposed Amount of bleeding with debridement: Mild Bleeding Controlled with: Pressure and Compression and gauze Patient tolerated procedure: Patient tolerated procedure well Post-Debridement Measurements and Additional Note: Post-Debridement Measurements/Treatment - Nurse 1 - General Ulcer Assessment Start: 05/12/23 11:10 Freq: Status: Active Protocol: BOBO Activity Type Activity Date Activity User E-sign Co-sign Detail Recorded Client Recorded Date Recorded By Document 05/12/23 11:10 DL Desktop 05/12/23 11:17 DL Document 05/19/23 11:03 DL Desktop 05/19/23 11:14 DL 05/12/23 05/19/23 11:10 11:03 - Today's Visit Information Type of service Follow-up Visit Follow-up Visit (Physician/MANUFACTURING CHIEF ENGINEER (Physician/MANUFACTURING CHIEF ENGINEER ) ) Arrival Mode Ambulatory Ambulatory Transfer Assistance None None Patient Identification Verified (Name & Yes Yes ) Patient Requires Transmission-Based No No Precautions Height and Weight Body Mass Index (BMI) 48.9 48.9 BMI Classification Obese Obese Vital Signs Temperature (97.8 F-99.1 F) 97.4 F L 97.8 F Temperature Source Temporal Temporal Pulse Rate (60-100) 111 H 109 H Pulse Location Monitor Monitor Respiratory Rate (12-18) 20 H 22 H Respiratory rate source Observation Observation Blood Pressure (90/60-120/80) 110/69 110/75 Blood Pressure Mean (mm Hg) 82 86 Source Monitor Monitor History Since Last Visit- (Skip if this is Patient's initial visit) Have you changed medications since your No No last visit? Any new allergies or adverse reactions No No Had a fall/change in ADL's that may No No increase risk of falls Signs or symptoms of abuse and/or No No neglect since last visit Have you been in the hospital since your No No last visit? Has dressing in place as prescribed Yes Yes Has compression in place as prescribed Yes Yes Has offloadiing in place as prescribed N/A N/A Experienced any changes in pain level or No No management Pain Scale: 0-10 Numeric Is Patient Pain Free? Yes Yes WC - Nurse 1 - General Ulcer Measurement Start: 05/12/23 11:10 Freq: Status: Active Protocol: Activity Type Activity Date Activity User E-sign Co-sign Detail Recorded Client Recorded Date Recorded By Document 05/12/23 11:10 DL Desktop 05/12/23 11:17 DL Document 05/19/23 11:03 DL Desktop 05/19/23 11:14 DL 05/12/23 05/19/23 11:10 11:03 Wound Center Nurse 1 #5 L medial LE -Current Size (cm) - Length 9.2 11.6 -Current Size (cm) - Width 13.8 14 -Current Size (cm) - Depth 1.5 1.4 -Total Square Cm 126.96 162.4 -Photo Taken Yes -Undermining/Tunneling Starts (O'clock 12 ) -Undermining/Tunneling Ends (O'clock) 1 -Maximum Distance (cm) 1 -Exudate Amt Medium Medium -Exudate Type Serosanguineous Serosanguineous -Wound Margin Distinct, Distinct, Outline Outline Attached Attached -Granulation Amt Large (67-100%) Large (67-100%) -Granulation Quality Red -Necrosis Amt Small (1-33%) Small (1-33%) -Necrotic Tissue Type Adherent Slough Adherent Slough -Structure Exposed N/A N/A -Texture (Brenna-wound Skin Appearance) Scarring,Rash Rash -Moisture (Brenna-wound Skin Appearance) No Abnormality -Color (Brenna-wound Skin Appearance) No Abnormality -Temperature (Brenna-wound Skin No Abnormality No Abnormality Appearance) (Pt Warm) (Pt Warm) -Tenderness on Palpation (Brenna-wound No No Skin Appearance) -Ulcer Cleansing Soap and Water Soap and Water -Foul Odor after Cleansing No No -Anesthetic Used 4% Lidocaine 4% Lidocaine Solution Solution Left Calf (cm) 46.6 Left Ankle (cm) 27.5 WC - Nurse 2 - General Ulcer CM Notes Start: 05/12/23 11:10 Freq: Status: Active Protocol: Activity Type Activity Date Activity User E-sign Co-sign Detail Recorded Client Recorded Date Recorded By Document 05/12/23 11:23 Laptop 05/12/23 11:27 Document 05/19/23 11:25 Laptop 05/19/23 11:31 05/12/23 05/19/23 11:23 11:25 Wound Center Nurse 2 #5 L medial LE -Time 11: 11:25 -Correct Patient Yes Yes -Correct Side, Site, Position Yes Yes -Correct Procedure Yes Yes -Procedure Performed Yes Yes -Type of Procedure Debridement Debridement -Clinical Debridement Muscle / Fascia Muscle / Fascia -Tissue Removed Muscle,Fascia Muscle,Fascia -Post Debridement (cm) - Length 10.5 12 -Post Debridement (cm) - Width 14.4 14 -Post Debridement (cm) - Depth 1.9 1.3 -Total Square (Post) (cm) 151.20 168 -Area of Debridement (cm) - Length 10.5 12 -Area of Debridement (cm) - Width 14.4 14 -Total Square (Area) (cm) 151.20 168 -Tunneling No No -Undermining/Tunneling No No -Circular Undermining No No -Wound/Ulcer Outcome Not Healed Not Healed -Ulcer Cleansing Rinsed/ Rinsed/ Irrigated with Irrigated with Saline Saline -Foul Odor after Cleansing No No -Bioengineered Tissue No No -Bleeding Controlled with Pressure Pressure -Treatment Response Procedure Procedure Tolerated Well Tolerated Well -Offloading No No -Debridement - Muscle / Fascia, 1st Yes Yes 20sq cm -Debridement, Muscle/Fascia, ea addt'l 7 8 20sq cm or part thereof Pain Scale: 0-10 Numeric Is Patient Pain Free? Yes Yes - Nurse 3 - General Ulcer D/C NN Start: 05/12/23 11:10 Freq: Status: Active Protocol: Activity Type Activity Date Activity User E-sign Co-sign Detail Recorded Client Recorded Date Recorded By Document 05/12/23 11:44 DL Desktop 05/12/23 13:04 DL 05/12/23 11:44 Wound Care Center Nurse 3 #5 L medial LE -Ulcer Cleansing Rinsed/ Irrigated with Saline -Foul Odor after Cleansing No -Negative Pressure Wound Therapy Continue -Setting (mmHg) 150 -Negative Pressure is Continuous -NPWT Application Charge NPWT & Debridement (nc ) Left -Tubular Bandage Single Layer -Size of Tubigrip Used Size E -Size E ($) 1 Treatment Response Procedure Tolerated Well Pain Scale: 0-10 Numeric Is Patient Pain Free? Yes Assessment/Plan Assessment/Plan (1) Ulcer of left lower extremity with muscle involvement without evidence of necrosis: CODE(S): L97.925 - Non-pressure chronic ulcer of unspecified part of left lower leg with muscle involvement without evidence of necrosis (2) Ulcer of left lower extremity with fat layer exposed: CODE(S): L97.922 - Non-pressure chronic ulcer of unspecified part of left lower leg with fat layer exposed (3) MRSA (methicillin resistant Staphylococcus aureus) infection: CODE(S): A49.02 - Methicillin resistant Staphylococcus aureus infection, unspecified site (4) History of incision and drainage: CODE(S): Z98.890 - Other specified postprocedural states (5) History of necrotizing fasciitis: CODE(S): Z87.39 - Personal history of other diseases of the musculoskeletal system and connective tissue (6) Borderline personality disorder: CODE(S): F60.3 - Borderline personality disorder PLAN: Plan Patient was evaluated at the wound healing center. Wound care - Left medial leg ulcer wound VAC at 150 mmHg to be changed 3 times per week. Make sure to wash with soap and water at the time of the dressing changes. On per wound where there is some excoriation, place adaptic and gauze over those areas before putting drape in place. She now has home health to assist with the dressing change. Compression - Single tubi-pig breeder with MOHINI wrap on left leg for compression. Wound Culture obtained 12/29/22 positive for Enterococcus faecalis, Corynebacterium amycolatum, and Staphylococcus epidermidis. Treated with Augmentin and Doxycycline. Wound culture obtained 01/28/23 which was positive for Enterococcus faecalis and Corynebacterium striatum. She completed Augmentin. A wound culture was obtained 04/05/23 which was positive for Staphylococcus epidermidis and Staphylococcus haemolyticus. She was treated with IV Vancomycin while she was hospitalized. Prealbumin 13.9 from 04/09/23. Encourage increase protein intake including supplemental protein shakes for her increased metabolic demands from the wounds. Her PCP, Dr. Bailey is managing her pain medications. He ordered home health to obtain a wound culture and the patient states it is MRSA and she is now on Tetracycline. I have not seen the culture result. She will follow up in one week.
[2023-05-26 11:12] VITALS: BP 137/69; PULSE 110; RESP 20; TEMP 37.1; BMI 48.9
--- NOTE | 2023-05-26 13:05 | PN.PCM_ITS ---
History of Present Illness Date of Service: 05/26/23 Chief Complaint: non-healing surgical wounds of left medial and lateral leg History of Wound: Patient is a 22 year old female who presents to the wound healing center for evaluation of nonhealing surgical wounds of left left medial and lateral leg. Patient is a poor historian. Reviewed notes from [facility], she had been admitted to [place] around 11/27/22 for cellulitis and worsening infection of her left lower leg. She ended having an I&D of her left medial leg, left lateral leg and left lateral thigh. She was diagnosed with necrotizing fasciitis. Her wound cultures were positive for Enterococcus and steno. Mycoplasma IGG and IgM (+). She was sent to [facility] on 2 weeks dapto, arthur, clinda, levaquin, and micafungin. Changed Dap to to Vanc. On 12/12 stopped vanc/levaquin/arthur and started IV fluc due to diagnosis of candidemia. She was discharged home from [facility] around the second week of December. She has a history of significant for depression, personality disorder, self harm, anxiety, asthma, recurrent cellulitis and ADHD and most recently Afib and tachycardia. She states that she did not cause these wounds and did not do anything to them to make them worse. She has a history of being accused of tampering with wounds. Surgery 04/07/23 - Surgical preparation left medial leg with incision and drainage and excisional debridement nonhealing infected MRSA ulcer, (126 cm2). Operative culture were negative but she was on Vancomycin and Fluconazole for positive cultures from 04/05/23 which were positive for MRSE and Staphylococcus haemolyticus. Wound culture obtained on 12/29/22 which was positive for Enterococcus faecalis, Corynebacterium amycolatum, and MRSE. She was treated with Augmentin and Doxycycline. Wound culture obtained 01/28/23 which was positive for Enterococcus faecalis and Corynebacterium striatum. She was started on Augmentin. Left leg ultrasound obtained on 01/06/23 which showed There is no evidence of left lower extremity deep vein thrombosis. She was in [facility] for a week at the end of February for subcutaneous air around her wound. She states she cultured positive for MRSA and they had her on IV antibiotics. They used a wound VAC while she was in the hospital. She is now on Doxycycline. Today she denies fever, chills, nausea or vomiting. Progress of Wound: The left medial leg ulcer is stable. Her brenna wound is very excoriated. The areas that were blistered healed with covering them with adaptic. Objective Data Objective Data Vital Signs: Vital Signs Temp Pulse Resp BP 98.7 F 110 H 20 H 137/69 H 05/26/23 11:12 05/26/23 11:12 05/26/23 11:12 05/26/23 11:12 Weight: 276 lb Body Mass Index (BMI) 48.9 Debridement Note Debridement Note Wound debrided: #5 left medial leg Laterality: Left Wound Grade/Stage: 3 Type of Debridement: Excisional debridement Anesthesia Used: 5% Lidocaine Gel Depth: Down to and including healthy tissue, in the subcutaneous layer and to muscle Percentage of wound debrided: 100 Instrument Used: 7mm curette Tissue Removed: subcutaneous tissue and muscle. Severity: Fat Layer Exposed Amount of bleeding with debridement: Mild Bleeding Controlled with: Pressure and Compression and gauze Patient tolerated procedure: Patient tolerated procedure well Post-Debridement Measurements and Additional Note: Post-Debridement Measurements/Treatment - Nurse 1 - General Ulcer Assessment Start: 05/12/23 11:10 Freq: Status: Active Protocol: .LOWCAROL Activity Type Activity Date Activity User E-sign Co-sign Detail Recorded Client Recorded Date Recorded By Document 05/12/23 11:10 DL Desktop 05/12/23 11:17 DL Document 05/19/23 11:03 DL Desktop 05/19/23 11:14 DL Document 05/26/23 11:12 DL Desktop 05/26/23 11:20 DL 05/12/23 05/19/23 05/26/23 11:10 11:03 11:12 - Today's Visit Information Type of service Follow-up Visit Follow-up Visit Follow-up Visit (Physician/MEDICAL MICROBIOLOGIST (Physician/MEDICAL MICROBIOLOGIST (Physician/MEDICAL MICROBIOLOGIST ) ) ) Arrival Mode Ambulatory Ambulatory Ambulatory,Cane Transfer Assistance None None None Patient Identification Verified (Name & Yes Yes Yes ) Patient Requires Transmission-Based No No No Precautions Height and Weight Body Mass Index (BMI) 48.9 48.9 48.9 BMI Classification Obese Obese Obese Vital Signs Temperature (97.8 F-99.1 F) 97.4 F L 97.8 F 98.7 F Temperature Source Temporal Temporal Temporal Pulse Rate (60-100) 111 H 109 H 110 H Pulse Location Monitor Monitor Monitor Respiratory Rate (12-18) 20 H 22 H 20 H Respiratory rate source Observation Observation Observation Blood Pressure (90/60-120/80) 110/69 110/75 137/69 H Blood Pressure Mean (mm Hg) 82 86 91 Source Monitor Monitor Monitor History Since Last Visit- (Skip if this is Patient's initial visit) Have you changed medications since your No No No last visit? Any new allergies or adverse reactions No No No Had a fall/change in ADL's that may No No No increase risk of falls Signs or symptoms of abuse and/or No No No neglect since last visit Have you been in the hospital since your No No No last visit? Has dressing in place as prescribed Yes Yes Yes Has compression in place as prescribed Yes Yes No Has offloadiing in place as prescribed N/A N/A N/A Experienced any changes in pain level or No No Yes management Pain Scale: 0-10 Numeric Is Patient Pain Free? Yes Yes Yes WC - Nurse 1 - General Ulcer Measurement Start: 05/12/23 11:10 Freq: Status: Active Protocol: Activity Type Activity Date Activity User E-sign Co-sign Detail Recorded Client Recorded Date Recorded By Document 05/12/23 11:10 DL Desktop 05/12/23 11:17 DL Document 05/19/23 11:03 DL Desktop 05/19/23 11:14 DL Document 05/26/23 11:12 DL Desktop 05/26/23 11:20 DL 05/12/23 05/19/23 05/26/23 11:10 11:03 11:12 Wound Center Nurse 1 #5 L medial LE -Current Size (cm) - Length 9.2 11.6 11.5 -Current Size (cm) - Width 13.8 14 13.5 -Current Size (cm) - Depth 1.5 1.4 1.5 -Total Square Cm 126.96 162.4 155.25 -Photo Taken Yes -Undermining/Tunneling Starts (O'clock 12 ) -Undermining/Tunneling Ends (O'clock) 1 -Maximum Distance (cm) 1 -Exudate Amt Medium Medium Medium -Exudate Type Serosanguineous Serosanguineous Serosanguineous -Wound Margin Distinct, Distinct, Distinct, Outline Outline Outline Attached Attached Attached -Granulation Amt Large (67-100%) Large (67-100%) Large (67-100%) -Granulation Quality Red Red -Necrosis Amt Small (1-33%) Small (1-33%) Small (1-33%) -Necrotic Tissue Type Adherent Slough Adherent Slough Adherent Slough -Structure Exposed N/A N/A N/A -Texture (Brenna-wound Skin Appearance) Scarring,Rash Rash Scarring,Rash -Moisture (Brenna-wound Skin Appearance) No Abnormality No Abnormality -Color (Brenna-wound Skin Appearance) No Abnormality No Abnormality -Temperature (Brenna-wound Skin No Abnormality No Abnormality No Abnormality Appearance) (Pt Warm) (Pt Warm) (Pt Warm) -Tenderness on Palpation (Brenna-wound No No No Skin Appearance) -Ulcer Cleansing Soap and Water Soap and Water Soap and Water -Foul Odor after Cleansing No No No -Anesthetic Used 4% Lidocaine 4% Lidocaine 4% Lidocaine Solution Solution Solution Left Calf (cm) 46.6 49 Left Ankle (cm) 27.5 26 - Nurse 2 - General Ulcer CM Notes Start: 05/12/23 11:10 Freq: Status: Active Protocol: Activity Type Activity Date Activity User E-sign Co-sign Detail Recorded Client Recorded Date Recorded By Document 05/12/23 11:23 Laptop 05/12/23 11:27 Document 05/19/23 11:25 Laptop 05/19/23 11:31 Document 05/26/23 11:31 Laptop 05/26/23 11:35 05/12/23 05/19/23 05/26/23 11:23 11:25 11:31 Wound Center Nurse 2 #5 L medial LE -Time 11: 11:25 11:32 -Correct Patient Yes Yes Yes -Correct Side, Site, Position Yes Yes Yes -Correct Procedure Yes Yes Yes -Procedure Performed Yes Yes Yes -Type of Procedure Debridement Debridement Debridement -Clinical Debridement Muscle / Fascia Muscle / Fascia Muscle / Fascia -Tissue Removed Muscle,Fascia Muscle,Fascia Muscle,Fascia -Post Debridement (cm) - Length 10.5 12 12.0 -Post Debridement (cm) - Width 14.4 14 13.7 -Post Debridement (cm) - Depth 1.9 1.3 2.0 -Total Square (Post) (cm) 151.20 168 164.40 -Area of Debridement (cm) - Length 10.5 12 12.0 -Area of Debridement (cm) - Width 14.4 14 13.7 -Total Square (Area) (cm) 151.20 168 164.40 -Tunneling No No No -Undermining/Tunneling No No No -Circular Undermining No No No -Wound/Ulcer Outcome Not Healed Not Healed Not Healed -Ulcer Cleansing Rinsed/ Rinsed/ Rinsed/ Irrigated with Irrigated with Irrigated with Saline Saline Saline -Foul Odor after Cleansing No No No -Bioengineered Tissue No No No -Bleeding Controlled with Pressure Pressure Pressure -Treatment Response Procedure Procedure Procedure Tolerated Well Tolerated Well Tolerated Well -Offloading No No No -Debridement - Muscle / Fascia, 1st Yes Yes Yes 20sq cm -Debridement, Muscle/Fascia, ea addt'l 7 8 8 20sq cm or part thereof Pain Scale: 0-10 Numeric Is Patient Pain Free? Yes Yes Yes - Nurse 3 - General Ulcer D/C NN Start: 05/12/23 11:10 Freq: Status: Active Protocol: Activity Type Activity Date Activity User E-sign Co-sign Detail Recorded Client Recorded Date Recorded By Document 05/12/23 11:44 DL Desktop 05/12/23 13:04 DL Document 05/26/23 11:42 DL Desktop 05/26/23 11:44 DL 05/12/23 05/26/23 11:44 11:42 Wound Care Center Nurse 3 #5 L medial LE -Ulcer Cleansing Rinsed/ Soap and Water Irrigated with Saline -Foul Odor after Cleansing No No -Negative Pressure Wound Therapy Continue -Setting (mmHg) 150 -Negative Pressure is Continuous -Other Dressing dakins -Primary Dressing Covered/Secured with Dry Gauze & Roll Gauze, Secured with Tape -Other Covering Triad to periulcer -NPWT Application Charge NPWT & Debridement (nc ) Left -Compression Wrap Jonas Wrap -Tubular Bandage Single Layer Single Layer -Size of Tubigrip Used Size E Size F -Size E ($) 1 -Size F ($) 1 Treatment Response Procedure Procedure Tolerated Well Tolerated Well Pain Scale: 0-10 Numeric Is Patient Pain Free? Yes Yes WC - Visit Discharge Discharge Condition Stable Ambulatory Status Ambulatory,Cane Transportation Private Auto Facility Type Home Health Orders Sent Yes Assessment/Plan Assessment/Plan (1) Ulcer of left lower extremity with muscle involvement without evidence of necrosis: CODE(S): L97.925 - Non-pressure chronic ulcer of unspecified part of left lower leg with muscle involvement without evidence of necrosis (2) Ulcer of left lower extremity with fat layer exposed: CODE(S): L97.922 - Non-pressure chronic ulcer of unspecified part of left lower leg with fat layer exposed (3) MRSA (methicillin resistant Staphylococcus aureus) infection: CODE(S): A49.02 - Methicillin resistant Staphylococcus aureus infection, unspecified site (4) History of incision and drainage: CODE(S): Z98.890 - Other specified postprocedural states (5) History of necrotizing fasciitis: CODE(S): Z87.39 - Personal history of other diseases of the musculosk eletal system and connective tissue (6) Borderline personality disorder: CODE(S): F60.3 - Borderline personality disorder PLAN: Plan Patient was evaluated at the wound healing center. Wound care - Left medial leg ulcer wound VAC at 150 mmHg to be changed 3 times per week. Make sure to wash with soap and water at the time of the dressing cayden pavel. On per wound where there is some excoriation, place adaptic and gauze over those areas before putting drape in place. She now has home health to assist with the dressing change. 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 Wound Culture obtained 12/29/22 positive for Enterococcus faecalis, Corynebacterium amycolatum, and Staphylococcus epidermidis. Treated with Augmentin and Doxycycline. Wound culture obtained 01/28/23 which was positive for Enterococcus faecalis and Corynebacterium striatum. She completed Augmentin. A wound culture was obtained 04/05/23 which was positive for Staphylococcus epidermidis and Staphylococcus haemolyticus. She was treated with IV Vancomycin while she was hospitalized. Prealbumin 13.9 from 04/09/23. Encourage increase protein intake including supplemental protein shakes for her increased metabolic demands from the wounds. Her PCP, Dr. Bailey is managing her pain medications. He ordered home health to obtain a wound culture and the patient states it is MRSA and she is now on Tetracycline. I have not seen the culture result. She will follow up in one week.
[2023-05-31 09:57] VITALS: BP 134/90; PULSE 101; RESP 16; TEMP 35.9; BMI 48.9
--- NOTE | 2023-05-31 11:17 | PN.PCM_ITS ---
History of Present Illness Date of Service: 05/31/23 Chief Complaint: non-healing surgical wounds of left medial and lateral leg History of Wound: Patient is a 22 year old female who presents to the wound healing center for evaluation of nonhealing surgical wounds of left left medial and lateral leg. Patient is a poor historian. Reviewed notes from [facility], she had been admitted to [place] around 11/27/22 for cellulitis and worsening infection of her left lower leg. She ended having an I&D of her left medial leg, left lateral leg and left lateral thigh. She was diagnosed with necrotizing fasciitis. Her wound cultures were positive for Enterococcus and steno. Mycoplasma IGG and IgM (+). She was sent to [facility] on 2 weeks dapto, arthur, clinda, levaquin, and micafungin. Changed Dap to to Vanc. On 12/12 stopped vanc/levaquin/arthur and started IV fluc due to diagnosis of candidemia. She was discharged home from [facility] around the second week of December. She has a history of significant for depression, personality disorder, self harm, anxiety, asthma, recurrent cellulitis and ADHD and most recently Afib and tachycardia. She states that she did not cause these wounds and did not do anything to them to make them worse. She has a history of being accused of tampering with wounds. Surgery 04/07/23 - Surgical preparation left medial leg with incision and drainage and excisional debridement nonhealing infected MRSA ulcer, (126 cm2). Operative culture were negative but she was on Vancomycin and Fluconazole for positive cultures from 04/05/23 which were positive for MRSE and Staphylococcus haemolyticus. Wound culture obtained on 12/29/22 which was positive for Enterococcus faecalis, Corynebacterium amycolatum, and MRSE. She was treated with Augmentin and Doxycycline. Wound culture obtained 01/28/23 which was positive for Enterococcus faecalis and Corynebacterium striatum. She was started on Augmentin. Left leg ultrasound obtained on 01/06/23 which showed There is no evidence of left lower extremity deep vein thrombosis. She was in [facility] for a week at the end of February for subcutaneous air around her wound. She states she cultured positive for MRSA and they had her on IV antibiotics. They used a wound VAC while she was in the hospital. She is now on Doxycycline. Today she denies fever, chills, nausea or vomiting. Progress of Wound: The left medial leg ulcer is stable. Her brenna wound excoriation has improved with the wound VAC holiday. Objective Data Objective Data Vital Signs: Vital Signs Temp Pulse Resp BP O2 Del Method 96.7 F L 101 H 16 134/90 H Room Air 05/31/23 09:57 05/31/23 09:57 05/31/23 09:57 05/31/23 09:57 05/31/23 09:57 Oxygen Delivery Method Room Air Weight: 276 lb Body Mass Index (BMI) 48.9 Charges/Coding Procedures Integumentary [id number]: [id number] Global Visit Debridement Note Debridement Note Wound debrided: #5 left medial leg Laterality: Left Wound Grade/Stage: 3 Type of Debridement: Excisional debridement Anesthesia Used: 5% Lidocaine Gel Depth: Down to and including healthy tissue, in the subcutaneous layer and to muscle Percentage of wound debrided: 100 Instrument Used: 7mm curette Tissue Removed: subcutaneous tissue and muscle. Severity: Fat Layer Exposed Amount of bleeding with debridement: Mild Bleeding Controlled with: Pressure and Compression and gauze Patient tolerated procedure: Patient tolerated procedure well Post-Debridement Measurements and Additional Note: Post-Debridement Measurements/Treatment - Nurse 1 - General Ulcer Assessment Start: 05/12/23 11:10 Freq: Status: Active Protocol: BOBO Activity Type Activity Date Activity User E-sign Co-sign Detail Recorded Client Recorded Date Recorded By Document 05/12/23 11:10 DL Desktop 05/12/23 11:17 DL Document 05/19/23 11:03 DL Desktop 05/19/23 11:14 DL Document 05/26/23 11:12 DL Desktop 05/26/23 11:20 DL Document 05/31/23 09:57 [facility] Desktop 05/31/23 10:12 BM 05/12/23 05/19/23 05/26/23 11:10 11:03 11:12 - Today's Visit Information Type of service Follow-up Visit Follow-up Visit Follow-up Visit (Physician/COMMUNICATIONS PROFESSOR (Physician/COMMUNICATIONS PROFESSOR (Physician/COMMUNICATIONS PROFESSOR ) ) ) Arrival Mode Ambulatory Ambulatory Ambulatory,Cane Transfer Assistance None None None Patient Identification Verified (Name & Yes Yes Yes ) Patient Requires Transmission-Based No No No Precautions Height and Weight Body Mass Index (BMI) 48.9 48.9 48.9 BMI Classification Obese Obese Obese Vital Signs Temperature (97.8 F-99.1 F) 97.4 F L 97.8 F 98.7 F Temperature Source Temporal Temporal Temporal Pulse Rate (60-100) 111 H 109 H 110 H Pulse Location Monitor Monitor Monitor Respiratory Rate (12-18) 20 H 22 H 20 H Respiratory rate source Observation Observation Observation Oxygen Delivery Method Blood Pressure (90/60-120/80) 110/69 110/75 137/69 H Blood Pressure Mean (mm Hg) 82 86 91 Source Monitor Monitor Monitor Position Blood Pressure Location History Since Last Visit- (Skip if this is Patient's initial visit) Have you changed medications since your No No No last visit? Any new allergies or adverse reactions No No No Had a fall/change in ADL's that may No No No increase risk of falls Signs or symptoms of abuse and/or No No No neglect since last visit Have you been in the hospital since your No No No last visit? Has dressing in place as prescribed Yes Yes Yes Has compression in place as prescribed Yes Yes No Has offloadiing in place as prescribed N/A N/A N/A Experienced any changes in pain level or No No Yes management Left Footwear Right Footwear Pain Scale: 0-10 Numeric Is Patient Pain Free? Yes Yes Yes 05/31/23 09:57 WC - Today's Visit Information Type of service Follow-up Visit (Physician/COMMUNICATIONS PROFESSOR ) Arrival Mode Ambulatory Transfer Assistance None Patient Identification Verified (Name & Yes ) Patient Requires Transmission-Based No Precautions Height and Weight Body Mass Index (BMI) 48.9 BMI Classification Obese Vital Signs Temperature (97.8 F-99.1 F) 96.7 F L Temperature Source Temporal Pulse Rate (60-100) 101 H Pulse Location Monitor Respiratory Rate (12-18) 16 Respiratory rate source Observation Oxygen Delivery Method Room Air Blood Pressure (90/60-120/80) 134/90 H Blood Pressure Mean (mm Hg) 104 Source Monitor Position Sitting Blood Pressure Location Right Forearm History Since Last Visit- (Skip if this is Patient's initial visit) Have you changed medications since your No last visit? Any new allergies or adverse reactions No Had a fall/change in ADL's that may No increase risk of falls Signs or symptoms of abuse and/or No neglect since last visit Have you been in the hospital since your No last visit? Has dressing in place as prescribed Yes Has compression in place as prescribed Yes Has offloadiing in place as prescribed N/A Experienced any changes in pain level or No management Left Footwear Regular Shoe Right Footwear Regular Shoe Pain Scale: 0-10 Numeric Is Patient Pain Free? Yes WC - Nurse 1 - General Ulcer Measurement Start: 05/12/23 11:10 Freq: Status: Active Protocol: Activity Type Activity Date Activity User E-sign Co-sign Detail Recorded Client Recorded Date Recorded By Document 05/12/23 11:10 DL Desktop 05/12/23 11:17 DL Document 05/19/23 11:03 DL Desktop 05/19/23 11:14 DL Document 05/26/23 11:12 DL Desktop 05/26/23 11:20 DL Document 05/31/23 09:57 [facility] Desktop 05/31/23 10:12 BMF 05/12/23 05/19/23 05/26/23 11:10 11:03 11:12 Wound Center Nurse 1 #5 L medial LE -Combined with other wound -Current Size (cm) - Length 9.2 11.6 11.5 -Current Size (cm) - Width 13.8 14 13.5 -Current Size (cm) - Depth 1.5 1.4 1.5 -Total Square Cm 126.96 162.4 155.25 -Date of Last Picture (Recall this field) -Photo Taken Yes -Epithelialization -Tunneling -Undermining/Tunneling -Undermining/Tunneling Starts (O'clock 12 ) -Undermining/Tunneling Ends (O'clock) 1 -Maximum Distance (cm) 1 -Circular Undermining -Exudate Amt Medium Medium Medium -Exudate Type Serosanguineous Serosanguineous Serosanguineous -Wound Margin Distinct, Distinct, Distinct, Outline Outline Outline Attached Attached Attached -Granulation Amt Large (67-100%) Large (67-100%) Large (67-100%) -Granulation Quality Red Red -Slough/Fibrin -Necrosis Amt Small (1-33%) Small (1-33%) Small (1-33%) -Necrotic Tissue Type Adherent Slough Adherent Slough Adherent Slough -Structure Exposed N/A N/A N/A -Texture (Brenna-wound Skin Appearance) Scarring,Rash Rash Scarring,Rash -Moisture (Brenna-wound Skin Appearance) No Abnormality No Abnormality -Color (Brenna-wound Skin Appearance) No Abnormality No Abnormality -Temperature (Brenna-wound Skin No Abnormality No Abnormality No Abnormality Appearance) (Pt Warm) (Pt Warm) (Pt Warm) -Tenderness on Palpation (Brenna-wound No No No Skin Appearance) -Ulcer Cleansing Soap and Water Soap and Water Soap and Water -Foul Odor after Cleansing No No No -Anesthetic Used 4% Lidocaine 4% Lidocaine 4% Lidocaine Solution Solution Solution Left Calf (cm) 46.6 49 Left Ankle (cm) 27.5 26 05/31/23 09:57 Wound Center Nurse 1 #5 L medial LE -Combined with other wound No -Current Size (cm) - Length 10.8 -Current Size (cm) - Width 13.3 -Current Size (cm) - Depth 1.5 -Total Square Cm 143.64 -Date of Last Picture (Recall this 05/31/23 field) -Photo Taken Yes -Epithelialization Small 1-33% -Tunneling No -Undermining/Tunneling No -Undermining/Tunneling Starts (O'clock ) -Undermining/Tunneling Ends (O'clock) -Maximum Distance (cm) -Circular Undermining No -Exudate Amt Large -Exudate Type Serosanguineous -Wound Margin Distinct, Outline Attached -Granulation Amt Large (67-100%) -Granulation Quality Red -Slough/Fibrin Yes -Necrosis Amt Small (1-33%) -Necrotic Tissue Type Adherent Slough -Structure Exposed -Texture (Brenna-wound Skin Appearance) No Abnormality, Scarring -Moisture (Brenna-wound Skin Appearance) Assessed,Dry/ Scaly -Color (Brenna-wound Skin Appearance) Assessed -Temperature (Brenna-wound Skin No Abnormality Appearance) (Pt Warm) -Tenderness on Palpation (Brenna-wound No Skin Appearance) -Ulcer Cleansing Soap and Water -Foul Odor after Cleansing No -Anesthetic Used 4% Lidocaine Solution Left Calf (cm) Left Ankle (cm) WC - Nurse 2 - General Ulcer CM Notes Start: 05/12/23 11:10 Freq: Status: Active Protocol: Activity Type Activity Date Activity User E-sign Co-sign Detail Recorded Client Recorded Date Recorded By Document 05/12/23 11:23 Laptop 05/12/23 11:27 Document 05/19/23 11:25 Laptop 05/19/23 11:31 Document 05/26/23 11:31 Laptop 05/26/23 11:35 Document 05/31/23 10:24 Desktop 05/31/23 10:28 05/12/23 05/19/23 05/26/23 11:23 11:25 11:31 Wound Center Nurse 2 #5 L medial LE -Time 11:25 11:25 11:32 -Correct Patient Yes Yes Yes -Correct Side, Site, Position Yes Yes Yes -Correct Procedure Yes Yes Yes -Procedure Performed Yes Yes Yes -Type of Procedure Debridement Debridement Debridement -Clinical Debridement Muscle / Fascia Muscle / Fascia Muscle / Fascia -Tissue Removed Muscle,Fascia Muscle,Fascia Muscle,Fascia -Post Debridement (cm) - Length 10.5 12 12.0 -Post Debridement (cm) - Width 14.4 14 13.7 -Post Debridement (cm) - Depth 1.9 1.3 2.0 -Total Square (Post) (cm) 151.20 168 164.40 -Area of Debridement (cm) - Length 10.5 12 12.0 -Area of Debridement (cm) - Width 14.4 14 13.7 -Total Square (Area) (cm) 151.20 168 164.40 -Tunneling No No No -Undermining/Tunneling No No No -Circular Undermining No No No -Wound/Ulcer Outcome Not Healed Not Healed Not Healed -Ulcer Cleansing Rinsed/ Rinsed/ Rinsed/ Irrigated with Irrigated with Irrigated with Saline Saline Saline -Foul Odor after Cleansing No No No -Bioengineered Tissue No No No -Bleeding Controlled with Pressure Pressure Pressure -Treatment Response Procedure Procedure Procedure Tolerated Well Tolerated Well Tolerated Well -Offloading No No No -Debridement - Muscle / Fascia, 1st Yes Yes Yes 20sq cm -Debridement, Muscle/Fascia, ea addt'l 7 8 8 20sq cm or part thereof Pain Scale: 0-10 Numeric Is Patient Pain Free? Yes Yes Yes 05/31/23 10:24 Wound Center Nurse 2 #5 L medial LE -Time 10:25 -Correct Patient Yes -Correct Side, Site, Position Yes -Correct Procedure Yes -Procedure Performed Yes -Type of Procedure Debridement -Clinical Debridement Muscle / Fascia -Tissue Removed Muscle,Fascia -Post Debridement (cm) - Length 11.1 -Post Debridement (cm) - Width 13.5 -Post Debridement (cm) - Depth 1.1 -Total Square (Post) (cm) 149.85 -Area of Debridement (cm) - Length 11.1 -Area of Debridement (cm) - Width 13.5 -Total Square (Area) (cm) 149.85 -Tunneling No -Undermining/Tunneling No -Circular Undermining No -Wound/Ulcer Outcome Not Healed -Ulcer Cleansing Rinsed/ Irrigated with Saline -Foul Odor after Cleansing No -Bioengineered Tissue No -Bleeding Controlled with Pressure -Treatment Response Procedure Tolerated Well -Offloading No -Debridement - Muscle / Fascia, 1st Yes 20sq cm -Debridement, Muscle/Fascia, ea addt'l 7 20sq cm or part thereof Pain Scale: 0-10 Numeric Is Patient Pain Free? Yes WC - Nurse 3 - General Ulcer D/C NN Start: 05/12/23 11:10 Freq: Status: Active Protocol: Activity Type Activity Date Activity User E-sign Co-sign Detail Recorded Client Recorded Date Recorded By Document 05/12/23 11:44 DL Desktop 05/12/23 13:04 DL Document 05/26/23 11:42 DL Desktop 05/26/23 11:44 DL Document 05/31/23 10:40 DL Desktop 05/31/23 10:41 DL 05/12/23 05/26/23 05/31/23 11:44 11:42 10:40 Wound Care Center Nurse 3 #5 L medial LE -Ulcer Cleansing Rinsed/ Soap and Water Soap and Water Irrigated with Saline -Foul Odor after Cleansing No No No -Negative Pressure Wound Therapy Continue Continue -Setting (mmHg) 150 150 -Negative Pressure is Continuous Continuous -Other Dressing dakins -Primary Dressing Covered/Secured with Dry Gauze & Roll Gauze, Secured with Tape -Other Covering Triad to periulcer -NPWT Application Charge NPWT & NPWT & Debridement (nc Debridement (nc ) ) Left -Compression Wrap Jonas Wrap -Tubular Bandage Single Layer Single Layer Single Layer -Size of Tubigrip Used Size E Size F Size D -Size D ($) 1 -Size E ($) 1 -Size F ($) 1 Treatment Response Procedure Procedure Procedure Tolerated Well Tolerated Well Tolerated Well Pain Scale: 0-10 Numeric Is Patient Pain Free? Yes Yes Yes WC - Visit Discharge Discharge Condition Stable Stable Ambulatory Status Ambulatory,Cane Ambulatory Transportation Private Auto Private Auto Facility Type Home Health Orders Sent Yes Assessment/Plan Assessment/Plan (1) Ulcer of left lower extremity with muscle involvement without evidence of necrosis: CODE(S): L97.925 - Non-pressure chronic ulcer of unspecified part of left lower leg with muscle involvement without evidence of necrosis (2) Ulcer of left lower extremity with fat layer exposed: CODE(S): L97.922 - Non-pressure chronic ulcer of unspecified part of left lower leg with fat layer exposed (3) MRSA (methicillin resistant Staphylococcus aureus) infection: CODE(S): A49.02 - Methicillin resistant Staphylococcus aureus infection, unspecified site (4) History of incision and drainage: CODE(S): Z98.890 - Other specified postprocedural states (5) History of necrotizing fasciitis: CODE(S): Z87.39 - Personal history of other diseases of the musculoskeletal system and connective tissue (6) Borderline personality disorder: CODE(S): F60.3 - Borderline personality disorder PLAN: Plan Patient was evaluated at the wound healing center. Wound care - Wound VAC at 150 mmHg to be changed 3 times per week. Compression - Single tubi-measurement operator with JONAS wrap on left leg for compression. Wound Culture obtained 12/29/22 positive for Enterococcus faecalis, Corynebacterium amycolatum, and Staphylococcus epidermidis. Treated with Augmentin and Doxycycline. Wound culture obtained 01/28/23 which was positive for Enterococcus faecalis and Corynebacterium striatum. She completed Augmentin. A wound culture was obtained 04/05/23 which was positive for Staphylococcus epidermidis and Staphylococcus haemolyticus. She was treated with IV Vancomycin while she was hospitalized. Prealbumin 13.9 from 04/09/23. Encourage increase protein intake including supplemental protein shakes for her increased metabolic demands from the wounds. Her PCP, Dr. Bailey is managing her pain medications. He ordered home health to obtain a wound culture and the patient states it is MRSA and she is now on Tetracycline. I have not seen the culture result. She will follow up in one week.
[2023-06-07 13:00] VITALS: BP 128/81; PULSE 100; RESP 18; TEMP 35.8; BMI 48.9
--- NOTE | 2023-06-07 16:55 | PCM.WC.PN ---
History of Present Illness Date of Service: 06/07/23 Chief Complaint: non-healing surgical wounds of left medial and lateral leg History of Wound: Patient is a 22 year old female who presents to the wound healing center for evaluation of nonhealing surgical wounds of left left medial and lateral leg. Patient is a poor historian. Reviewed notes from [facility], she had been admitted to [facility] around 11/27/22 for cellulitis and worsening infection of her left lower leg. She ended having an I&D of her left medial leg, left lateral leg and left lateral thigh. She was diagnosed with necrotizing fasciitis. Her wound cultures were positive for Enterococcus and steno. Mycoplasma IGG and IgM (+). She was sent to [facility] on 2 weeks dapto, arthur, clinda, levaquin, and micafungin. Changed Dap to to Vanc. On 12/12 stopped vanc/levaquin/arthur and started IV fluc due to diagnosis of candidemia. She was discharged home from [facility] around the second week of December. She has a history of significant for depression, personality disorder, self harm, anxiety, asthma, recurrent cellulitis and ADHD and most recently Afib and tachycardia. She states that she did not cause these wounds and did not do anything to them to make them worse. She has a history of being accused of tampering with wounds. Surgery 04/07/23 - Surgical preparation left medial leg with incision and drainage and excisional debridement nonhealing infected MRSA ulcer, (126 cm2). Operative culture were negative but she was on Vancomycin and Fluconazole for positive cultures from 04/05/23 which were positive for MRSE and Staphylococcus haemolyticus. Wound culture obtained on 12/29/22 which was positive for Enterococcus faecalis, Corynebacterium amycolatum, and MRSE. She was treated with Augmentin and Doxycycline. Wound culture obtained 01/28/23 which was positive for Enterococcus faecalis and Corynebacterium striatum. She was started on Augmentin. Left leg ultrasound obtained on 01/06/23 which showed There is no evidence of left lower extremity deep vein thrombosis. She was in [facility] for a week at the end of February for subcutaneous air around her wound. She states she cultured positive for MRSA and they had her on IV antibiotics. They used a wound VAC while she was in the hospital. She is now on Doxycycline. Today she denies fever, chills, nausea or vomiting. Progress of Wound: The left medial leg ulcer is smaller in size. She is tolerating the wound VAC. The brenna wound has a couple areas of excoriation from the wound VAC drape. Objective Data Objective Data Vital Signs: Vital Signs Temp Pulse Resp BP O2 Del Method 96.5 F L 100 18 128/81 H Room Air 06/07/23 13:00 06/07/23 13:00 06/07/23 13:00 06/07/23 13:00 05/31/23 09:57 Oxygen Delivery Method Room Air Weight: 276 lb Body Mass Index (BMI) 48.9 Charges/Coding Procedures Integumentary [id number]: [id number] Global Visit Debridement Note Debridement Note Wound debrided: #5 left medial leg Laterality: Left Wound Grade/Stage: 3 Type of Debridement: Excisional debridement Anesthesia Used: 5% Lidocaine Gel Depth: Down to and including healthy tissue, in the subcutaneous layer and to muscle Percentage of wound debrided: 100 Instrument Used: 7mm curette Tissue Removed: subcutaneous tissue and muscle. Severity: Fat Layer Exposed Amount of bleeding with debridement: Mild Bleeding Controlled with: Pressure and Compression and gauze Patient tolerated procedure: Patient tolerated procedure well Post-Debridement Measurements and Additional Note: Post-Debridement Measurements/Treatment - Nurse 1 - General Ulcer Assessment Start: 05/12/23 11:10 Freq: Status: Active Protocol: STALIN.YOUNG Activity Type Activity Date Activity User E-sign Co-sign Detail Recorded Client Recorded Date Recorded By Document 05/12/23 11:10 DL Desktop 05/12/23 11:17 DL Document 05/19/23 11:03 DL Desktop 05/19/23 11:14 DL Document 05/26/23 11:12 DL Desktop 05/26/23 11:20 DL Document 05/31/23 09:57 F Desktop 05/31/23 10:12 [facility] Document 06/07/23 13:00 DL Desktop 06/07/23 13:07 DL 05/12/23 05/19/23 05/26/23 11:10 11:03 11:12 - Today's Visit Information Type of service Follow-up Visit Follow-up Visit Follow-up Visit (Physician/COATER OPERATOR INSULATION BOARD (Physician/COATER OPERATOR INSULATION BOARD (Physician/COATER OPERATOR INSULATION BOARD ) ) ) Arrival Mode Ambulatory Ambulatory Ambulatory,Cane Transfer Assistance None None None Patient Identification Verified (Name & Yes Yes Yes ) Patient Requires Transmission-Based No No No Precautions Height and Weight Body Mass Index (BMI) 48.9 48.9 48.9 BMI Classification Obese Obese Obese Vital Signs Temperature (97.8 F-99.1 F) 97.4 F L 97.8 F 98.7 F Temperature Source Temporal Temporal Temporal Pulse Rate (60-100) 111 H 109 H 110 H Pulse Location Monitor Monitor Monitor Respiratory Rate (12-18) 20 H 22 H 20 H Respiratory rate source Observation Observation Observation Oxygen Delivery Method Blood Pressure (90/60-120/80) 110/69 110/75 137/69 H Blood Pressure Mean (mm Hg) 82 86 91 Source Monitor Monitor Monitor Position Blood Pressure Location History Since Last Visit- (Skip if this is Patient's initial visit) Have you changed medications since your No No No last visit? Any new allergies or adverse reactions No No No Had a fall/change in ADL's that may No No No increase risk of falls Signs or symptoms of abuse and/or No No No neglect since last visit Have you been in the hospital since your No No No last visit? Has dressing in place as prescribed Yes Yes Yes Has compression in place as prescribed Yes Yes No Has offloadiing in place as prescribed N/A N/A N/A Experienced any changes in pain level or No No Yes management Left Footwear Right Footwear Pain Scale: 0-10 Numeric Is Patient Pain Free? Yes Yes Yes 05/31/23 06/07/23 09:57 13:00 WC - Today's Visit Information Type of service Follow-up Visit Follow-up Visit (Physician/COATER OPERATOR INSULATION BOARD (Physician/COATER OPERATOR INSULATION BOARD ) ) Arrival Mode Ambulatory Ambulatory Transfer Assistance None None Patient Identification Verified (Name & Yes Yes ) Patient Requires Transmission-Based No No Precautions Height and Weight Body Mass Index (BMI) 48.9 48.9 BMI Classification Obese Obese Vital Signs Temperature (97.8 F-99.1 F) 96.7 F L 96.5 F L Temperature Source Temporal Temporal Pulse Rate (60-100) 101 H 100 Pulse Location Monitor Monitor Respiratory Rate (12-18) 16 18 Respiratory rate source Observation Observation Oxygen Delivery Method Room Air Blood Pressure (90/60-120/80) 134/90 H 128/81 H Blood Pressure Mean (mm Hg) 104 96 Source Monitor Monitor Position Sitting Blood Pressure Location Right Forearm History Since Last Visit- (Skip if this is Patient's initial visit) Have you changed medications since your No No last visit? Any new allergies or adverse reactions No No Had a fall/change in ADL's that may No No increase risk of falls Signs or symptoms of abuse and/or No No neglect since last visit Have you been in the hospital since your No No last visit? Has dressing in place as prescribed Yes Yes Has compression in place as prescribed Yes Yes Has offloadiing in place as prescribed N/A N/A Experienced any changes in pain level or No No management Left Footwear Regular Shoe Right Footwear Regular Shoe Pain Scale: 0-10 Numeric Is Patient Pain Free? Yes Yes WC - Nurse 1 - General Ulcer Measurement Start: 05/12/23 11:10 Freq: Status: Active Protocol: Activity Type Activity Date Activity User E-sign Co-sign Detail Recorded Client Recorded Date Recorded By Document 05/12/23 11:10 DL Desktop 05/12/23 11:17 DL Document 05/19/23 11:03 DL Desktop 05/19/23 11:14 DL Document 05/26/23 11:12 DL Desktop 05/26/23 11:20 DL Document 05/31/23 09:57 BMF Desktop 05/31/23 10:12 BMF Document 06/07/23 13:00 DL Desktop 06/07/23 13:07 DL 05/12/23 05/19/23 05/26/23 11:10 11:03 11:12 Wound Center Nurse 1 #5 L medial LE -Combined with other wound -Current Size (cm) - Length 9.2 11.6 11.5 -Current Size (cm) - Width 13.8 14 13.5 -Current Size (cm) - Depth 1.5 1.4 1.5 -Total Square Cm 126.96 162.4 155.25 -Date of Last Picture (Recall this field) -Photo Taken Yes -Epithelialization -Tunneling -Undermining/Tunneling -Undermining/Tunneling Starts (O'clock 12 ) -Undermining/Tunneling Ends (O'clock) 1 -Maximum Distance (cm) 1 -Circular Undermining -Exudate Amt Medium Medium Medium -Exudate Type Serosanguineous Serosanguineous Serosanguineous -Wound Margin Distinct, Distinct, Distinct, Outline Outline Outline Attached Attached Attached -Granulation Amt Large (67-100%) Large (67-100%) Large (67-100%) -Granulation Quality Red Red -Slough/Fibrin -Necrosis Amt Small (1-33%) Small (1-33%) Small (1-33%) -Necrotic Tissue Type Adherent Slough Adherent Slough Adherent Slough -Structure Exposed N/A N/A N/A -Texture (Brenna-wound Skin Appearance) Scarring,Rash Rash Scarring,Rash -Moisture (Brenna-wound Skin Appearance) No Abnormality No Abnormality -Color (Brenna-wound Skin Appearance) No Abnormality No Abnormality -Temperature (Brenna-wound Skin No Abnormality No Abnormality No Abnormality Appearance) (Pt Warm) (Pt Warm) (Pt Warm) -Tenderness on Palpation (Brenna-wound No No No Skin Appearance) -Ulcer Cleansing Soap and Water Soap and Water Soap and Water -Foul Odor after Cleansing No No No -Anesthetic Used 4% Lidocaine 4% Lidocaine 4% Lidocaine Solution Solution Solution Left Calf (cm) 46.6 49 Left Ankle (cm) 27.5 26 05/31/23 06/07/23 09:57 13:00 Wound Center Nurse 1 #5 L medial LE -Combined with other wound No No -Current Size (cm) - Length 10.8 10.6 -Current Size (cm) - Width 13.3 12 -Current Size (cm) - Depth 1.5 0.5 -Total Square Cm 143.64 127.2 -Date of Last Picture (Recall this 05/31/23 field) -Photo Taken Yes -Epithelialization Small 1-33% Small 1-33% -Tunneling No No -Undermining/Tunneling No No -Undermining/Tunneling Starts (O'clock ) -Undermining/Tunneling Ends (O'clock) -Maximum Distance (cm) -Circular Undermining No No -Exudate Amt Large Large -Exudate Type Serosanguineous Serosanguineous -Wound Margin Distinct, Distinct, Outline Outline Attached Attached -Granulation Amt Large (67-100%) Large (67-100%) -Granulation Quality Red Red -Slough/Fibrin Yes Yes -Necrosis Amt Small (1-33%) Small (1-33%) -Necrotic Tissue Type Adherent Slough Adherent Slough -Structure Exposed -Texture (Brenna-wound Skin Appearance) No Abnormality, Assessed, Scarring Scarring -Moisture (Brenna-wound Skin Appearance) Assessed,Dry/ Assessed Scaly -Color (Brenna-wound Skin Appearance) Assessed Assessed -Temperature (Brenna-wound Skin No Abnormality No Abnormality Appearance) (Pt Warm) (Pt Warm) -Tenderness on Palpation (Brenna-wound No No Skin Appearance) -Ulcer Cleansing Soap and Water Soap and Water -Foul Odor after Cleansing No No -Anesthetic Used 4% Lidocaine 4% Lidocaine Solution Solution Left Calf (cm) Left Ankle (cm) WC - Nurse 2 - General Ulcer CM Notes Start: 05/12/23 11:10 Freq: Status: Active Protocol: Activity Type Activity Date Activity User E-sign Co-sign Detail Recorded Client Recorded Date Recorded By Document 05/12/23 11:23 [employer] Laptop 05/12/23 11:27 Document 05/19/23 11:25 Laptop 05/19/23 11:31 Document 05/26/23 11:31 Laptop 05/26/23 11:35 Document 05/31/23 10:24 Desktop 05/31/23 10:28 Document 06/07/23 13:25 Laptop 06/07/23 13:29 05/12/23 05/19/23 05/26/23 11:23 11:25 11:31 Wound Center Nurse 2 #5 L medial LE -Time 11:25 11:25 11:32 -Correct Patient Yes Yes Yes -Correct Side, Site, Position Yes Yes Yes -Correct Procedure Yes Yes Yes -Procedure Performed Yes Yes Yes -Type of Procedure Debridement Debridement Debridement -Clinical Debridement Muscle / Fascia Muscle / Fascia Muscle / Fascia -Tissue Removed Muscle,Fascia Muscle,Fascia Muscle,Fascia -Post Debridement (cm) - Length 10.5 12 12.0 -Post Debridement (cm) - Width 14.4 14 13.7 -Post Debridement (cm) - Depth 1.9 1.3 2.0 -Total Square (Post) (cm) 151.20 168 164.40 -Area of Debridement (cm) - Length 10.5 12 12.0 -Area of Debridement (cm) - Width 14.4 14 13.7 -Total Square (Area) (cm) 151.20 168 164.40 -Tunneling No No No -Undermining/Tunneling No No No -Circular Undermining No No No -Wound/Ulcer Outcome Not Healed Not Healed Not Healed -Ulcer Cleansing Rinsed/ Rinsed/ Rinsed/ Irrigated with Irrigated with Irrigated with Saline Saline Saline -Foul Odor after Cleansing No No No -Bioengineered Tissue No No No -Bleeding Controlled with Pressure Pressure Pressure -Treatment Response Procedure Procedure Procedure Tolerated Well Tolerated Well Tolerated Well -Offloading No No No -Debridement - Muscle / Fascia, 1st Yes Yes Yes 20sq cm -Debridement, Muscle/Fascia, ea addt'l 7 8 8 20sq cm or part thereof Pain Scale: 0-10 Numeric Is Patient Pain Free? Yes Yes Yes 05/31/23 06/07/23 10:24 13:25 Wound Center Nurse 2 #5 L [facility] LE -Time 10:25 13:25 -Correct Patient Yes Yes -Correct Side, Site, Position Yes Yes -Correct Procedure Yes Yes -Procedure Performed Yes Yes -Type of Procedure Debridement Debridement -Clinical Debridement Muscle / Fascia Muscle / Fascia -Tissue Removed Muscle,Fascia Muscle,Fascia -Post Debridement (cm) - Length 11.1 10.6 -Post Debridement (cm) - Width 13.5 12.7 -Post Debridement (cm) - Depth 1.1 0.8 -Total Square (Post) (cm) 149.85 134.62 -Area of Debridement (cm) - Length 11.1 10.6 -Area of Debridement (cm) - Width 13.5 12.7 -Total Square (Area) (cm) 149.85 134.62 -Tunneling No No -Undermining/Tunneling No No -Circular Undermining No No -Wound/Ulcer Outcome Not Healed Not Healed -Ulcer Cleansing Rinsed/ Rinsed/ Irrigated with Irrigated with Saline Saline -Foul Odor after Cleansing No No -Bioengineered Tissue No No -Bleeding Controlled with Pressure Pressure -Treatment Response Procedure Procedure Tolerated Well Tolerated Well -Offloading No No -Debridement - Muscle / Fascia, 1st Yes Yes 20sq cm -Debridement, Muscle/Fascia, ea addt'l 7 6 20sq cm or part thereof Pain Scale: 0-10 Numeric Is Patient Pain Free? Yes Yes WC - Nurse 3 - General Ulcer D/C NN Start: 05/12/23 11:10 Freq: Status: Active Protocol: Activity Type Activity Date Activity User E-sign Co-sign Detail Recorded Client Recorded Date Recorded By Document 05/12/23 11:44 DL Desktop 05/12/23 13:04 DL Document 05/26/23 11:42 DL Desktop 05/26/23 11:44 DL Document 05/31/23 10:40 DL Desktop 05/31/23 10:41 DL Document 06/07/23 13:48 DL Desktop 06/07/23 13:49 DL 05/12/23 05/26/23 05/31/23 11:44 11:42 10:40 Wound Care Center Nurse 3 #5 L medial LE -Ulcer Cleansing Rinsed/ Soap and Water Soap and Water Irrigated with Saline -Foul Odor after Cleansing No No No -Negative Pressure Wound Therapy Continue Continue -Setting (mmHg) 150 150 -Negative Pressure is Continuous Continuous -Other Dressing dakins -Primary Dressing Covered/Secured with Dry Gauze & Roll Gauze, Secured with Tape -Other Covering Triad to periulcer -NPWT Application Charge NPWT & NPWT & Debridement (nc Debridement (nc ) ) Left -Compression Wrap Jonas Wrap -Tubular Bandage Single Layer Single Layer Single Layer -Size of Tubigrip Used Size E Size F Size D -Size D ($) 1 -Size E ($) 1 -Size F ($) 1 Treatment Response Procedure Procedure Procedure Tolerated Well Tolerated Well Tolerated Well Pain Scale: 0-10 Numeric Is Patient Pain Free? Yes Yes Yes WC - Visit Discharge Discharge Condition Stable Stable Ambulatory Status Ambulatory,Cane Ambulatory Transportation Private Auto Private Auto Facility Type Home Health Orders Sent Yes 06/07/23 13:48 Wound Care Center Nurse 3 #5 L medial LE -Ulcer Cleansing Soap and Water -Foul Odor after Cleansing No -Negative Pressure Wound Therapy Continue -Setting (mmHg) 150 -Negative Pressure is Continuous -Other Dressing -Primary Dressing Covered/Secured with -Other Covering -NPWT Application Charge NPWT & Debridement (nc ) Left -Compression Wrap Jonas Wrap -Tubular Bandage Single Layer -Size of Tubigrip Used Size E -Size D ($) -Size E ($) 1 -Size F ($) Treatment Response Procedure Tolerated Well Pain Scale: 0-10 Numeric Is Patient Pain Free? Yes WC - Visit Discharge Discharge Condition Stable Ambulatory Status Ambulatory Transportation Private Auto Facility Type Home Health Orders Sent Yes Assessment/Plan Assessment/Plan (1) Ulcer of left lower extremity with muscle involvement without evidence of necrosis: CODE(S): L97.925 - Non-pressure chronic ulcer of unspecified part of left lower leg with muscle involvement without evidence of necrosis (2) Ulcer of left lower extremity with fat layer exposed: CODE(S): L97.922 - Non-pressure chronic ulcer of unspecified part of left lower leg with fat layer exposed (3) MRSA (methicillin resistant Staphylococcus aureus) infection: CODE(S): A49.02 - Methicillin resistant Staphylococcus aureus infection, unspecified site (4) History of incision and drainage: CODE(S): Z98.890 - Other specified postprocedural states (5) History of necrotizing fasciitis: CODE(S): Z87.39 - Personal history of other diseases of the musculoskeletal system and connective tissue (6) Borderline personality disorder: CODE(S): F60.3 - Borderline personality disorder PLAN: Plan Patient was evaluated at the wound healing center. Wound care - Wound VAC at 150 mmHg to be changed 3 times per week. Wash wound and brenna wound at the time of the dressing change. Compression - Single tubi-weigher bulker with JONAS wrap on left leg for compression. Wound Culture obtained 12/29/22 positive for Enterococcus faecalis, Corynebacterium amycolatum, and Staphylococcus epidermidis. Treated with Augmentin and Doxycycline. Wound culture obtained 01/28/23 which was positive for Enterococcus faecalis and Corynebacterium striatum. She completed Augmentin. A wound culture was obtained 04/05/23 which was positive for Staphylococcus epidermidis and Staphylococcus haemolyticus. She was treated with IV Vancomycin while she was hospitalized. Prealbumin 13.9 from 04/09/23. Encourage increase protein intake including supplemental protein shakes for her increased metabolic demands from the wounds. Her PCP, Dr. Bailey is managing her pain medications. He ordered home health to obtain a wound culture and the patient states it is MRSA and she is now on Tetracycline. I have not seen the culture result. She will follow up in one week.
== END 2023-06-08 23:59 | disposition home or self-care (01) ==
LOC: WC 13:00
PROVIDERS: PCP Student in an Organized Health Care Education/Training Program; Referring Provider Student in an Organized Health Care Education/Training Program; Visit Provider Nurse Practitioner Family
DX: L97.922 Non-pressure chronic ulcer of unspecified part of left lower leg with fat layer exposed (principal); L97.925 Non-pressure chronic ulcer of unspecified part of left lower leg with muscle involvement without evidence of necrosis; M72.6 Necrotizing fasciitis; F60.3 Borderline personality disorder; A49.02 Methicillin resistant Staphylococcus aureus infection, unspecified site; Z87.39 Personal history of other diseases of the musculoskeletal system and connective tissue; Z98.890 Other specified postprocedural states
CPT/HCPCS: 11043; 11046

== ENCOUNTER 2023-07-05 13:45 | Outpatient (RCR) | payer MEDICAID, SELFPAY ==
[2023-06-09 00:46] VITALS: BP 128/81; PULSE 100; RESP 18; TEMP 35.8; BMI 48.9
[2023-06-21 10:58] VITALS: BP 137/86; PULSE 100; RESP 16; TEMP 35.6; BMI 48.9
--- NOTE | 2023-06-21 12:09 | PN.PCM_ITS ---
History of Present Illness Date of Service: 06/21/23 Chief Complaint: non-healing surgical wounds of left medial and lateral leg History of Wound: Patient is a 22 year old female who presents to the wound healing center for evaluation of nonhealing surgical wounds of left left medial and lateral leg. Patient is a poor historian. Reviewed notes from [facility], she had been admitted to [place] around 11/27/22 for cellulitis and worsening infection of her left lower leg. She ended having an I&D of her left medial leg, left lateral leg and left lateral thigh. She was diagnosed with necrotizing fasciitis. Her wound cultures were positive for Enterococcus and steno. Mycoplasma IGG and IgM (+). She was sent to [facility] on 2 weeks dapto, arthur, clinda, levaquin, and micafungin. Changed Dap to to Vanc. On 12/12 stopped vanc/levaquin/arthur and started IV fluc due to diagnosis of candidemia. She was discharged home from [facility] around the second week of December. She has a history of significant for depression, personality disorder, self harm, anxiety, asthma, recurrent cellulitis and ADHD and most recently Afib and tachycardia. She states that she did not cause these wounds and did not do anything to them to make them worse. She has a history of being accused of tampering with wounds. Surgery 04/07/23 - Surgical preparation left medial leg with incision and drainage and excisional debridement nonhealing infected MRSA ulcer, (126 cm2). Operative culture were negative but she was on Vancomycin and Fluconazole for positive cultures from 04/05/23 which were positive for MRSE and Staphylococcus haemolyticus. Wound culture obtained on 12/29/22 which was positive for Enterococcus faecalis, Corynebacterium amycolatum, and MRSE. She was treated with Augmentin and Doxycycline. Wound culture obtained 01/28/23 which was positive for Enterococcus faecalis and Corynebacterium striatum. She was started on Augmentin. Left leg ultrasound obtained on 01/06/23 which showed There is no evidence of left lower extremity deep vein thrombosis. She was in [facility] for a week at the end of February for subcutaneous air around her wound. She states she cultured positive for MRSA and they had her on IV antibiotics. They used a wound VAC while she was in the hospital. She is now on Doxycycline. Today she denies fever, chills, nausea or vomiting. Progress of Wound: The left medial leg ulcer is smaller in size and the depth has decreased. Her brenna wound has improved with the VAC holiday. Objective Data Objective Data Vital Signs: Vital Signs Temp Pulse Resp BP O2 Del Method 96.1 F L 100 16 137/86 H Room Air 06/21/23 10:58 06/21/23 10:58 06/21/23 10:58 06/21/23 10:58 06/21/23 10:58 Oxygen Delivery Method Room Air Weight: 276 lb Body Mass Index (BMI) 48.9 Charges/Coding Procedures Integumentary 111xxx-113xx: 82851 Global Visit Debridement Note Debridement Note Wound debrided: #5 left medial leg Laterality: Left Wound Grade/Stage: 3 Type of Debridement: Excisional debridement Anesthesia Used: 5% Lidocaine Gel Depth: Down to and including healthy tissue, in the subcutaneous layer and to muscle Percentage of wound debrided: 100 Instrument Used: 7mm curette Tissue Removed: subcutaneous tissue and muscle. Severity: Fat Layer Exposed Amount of bleeding with debridement: Mild Bleeding Controlled with: Pressure and Compression and gauze Patient tolerated procedure: Patient tolerated procedure well Post-Debridement Measurements and Additional Note: Post-Debridement Measurements/Treatment - Nurse 1 - General Ulcer Assessment Start: 06/21/23 10:58 Freq: Status: Active Protocol: BOBO Activity Type Activity Date Activity User E-sign Co-sign Detail Recorded Client Recorded Date Recorded By Document 06/21/23 10:58 Desktop 06/21/23 11:07 06/21/23 10:58 - Today's Visit Information Type of service Follow-up Visit (Physician/CANTEEN MANAGER ) Arrival Mode Ambulatory Transfer Assistance None Patient Identification Verified (Name & Yes ) Patient Requires Transmission-Based No Precautions Height and Weight Body Mass Index (BMI) 48.9 BMI Classification Obese Vital Signs Temperature (97.8 F-99.1 F) 96.1 F L Temperature Source Temporal Pulse Rate (60-100) 100 Pulse Location Monitor Respiratory Rate (12-18) 16 Respiratory rate source Observation Oxygen Delivery Method Room Air Blood Pressure (90/60-120/80) 137/86 H Blood Pressure Mean (mm Hg) 103 Position Sitting Blood Pressure Location Right Arm History Since Last Visit- (Skip if this is Patient's initial visit) Have you changed medications since your No last visit? Any new allergies or adverse reactions No Had a fall/change in ADL's that may No increase risk of falls Signs or symptoms of abuse and/or No neglect since last visit Have you been in the hospital since your No last visit? Has dressing in place as prescribed Yes Has compression in place as prescribed Yes Has offloadiing in place as prescribed N/A Experienced any changes in pain level or No management Left Footwear Regular Shoe Right Footwear Regular Shoe Pain Scale: 0-10 Numeric Is Patient Pain Free? Yes - Nurse 1 - General Ulcer Measurement Start: 06/21/23 10:58 Freq: Status: Active Protocol: Activity Type Activity Date Activity User E-sign Co-sign Detail Recorded Client Recorded Date Recorded By Document 06/21/23 10:58 Desktop 06/21/23 11:07 06/21/23 10:58 Wound Center Nurse 1 #5 L medial LE -Combined with other wound No -Current Size (cm) - Length 10.8 -Current Size (cm) - Width 12.3 -Current Size (cm) - Depth 0.3 -Total Square Cm 132.84 -Photo Taken No -Epithelialization Small 1-33% -Tunneling No -Undermining/Tunneling No -Circular Undermining No -Exudate Amt Large -Exudate Type Serosanguineous -Wound Margin Distinct, Outline Attached -Granulation Amt Large (67-100%) -Granulation Quality Red -Slough/Fibrin No -Necrosis Amt None Present (0 %) -Texture (Brenna-wound Skin Appearance) Assessed, Scarring -Moisture (Brenna-wound Skin Appearance) Assessed -Color (Brenna-wound Skin Appearance) Assessed -Temperature (Brenna-wound Skin No Abnormality Appearance) (Pt Warm) -Tenderness on Palpation (Brenna-wound No Skin Appearance) -Ulcer Cleansing Soap and Water -Foul Odor after Cleansing No -Anesthetic Used 4% Lidocaine Solution Lower Limb Edema Present Yes Right Calf (cm) 44 Right Ankle (cm) 26.7 - Nurse 2 - General Ulcer CM Notes Start: 06/21/23 10:58 Freq: Status: Active Protocol: Activity Type Activity Date Activity User E-sign Co-sign Detail Recorded Client Recorded Date Recorded By Document 06/21/23 11:21 Laptop 06/21/23 11:25 JF 06/21/23 11:21 Wound Center Nurse 2 #5 L medial LE -Time 11:22 -Correct Patient Yes -Correct Side, Site, Position Yes -Correct Procedure Yes -Procedure Performed Yes -Type of Procedure Debridement -Clinical Debridement Muscle / Fascia -Tissue Removed Muscle -Post Debridement (cm) - Length 10.8 -Post Debridement (cm) - Width 12.0 -Post Debridement (cm) - Depth 0.4 -Total Square (Post) (cm) 129.60 -Area of Debridement (cm) - Length 10.8 -Area of Debridement (cm) - Width 12 -Total Square (Area) (cm) 129.6 -Tunneling No -Undermining/Tunneling No -Circular Undermining No -Wound/Ulcer Outcome Not Healed -Ulcer Cleansing Rinsed/ Irrigated with Saline -Foul Odor after Cleansing No -Bioengineered Tissue No -Bleeding Controlled with Pressure -Treatment Response Procedure Tolerated Well -Offloading No -Debridement - Muscle / Fascia, 1st Yes 20sq cm -Debridement, Muscle/Fascia, ea addt'l 6 20sq cm or part thereof Pain Scale: 0-10 Numeric Is Patient Pain Free? Yes - Nurse 3 - General Ulcer D/C NN Start: 06/21/23 10:58 Freq: Status: Active Protocol: Activity Type Activity Date Activity User E-sign Co-sign Detail Recorded Client Recorded Date Recorded By Document 06/21/23 11:36 Desktop 06/21/23 11:37 06/21/23 11:36 Wound Care Center Nurse 3 #5 L medial LE -Ulcer Cleansing Not Cleansed -Foul Odor after Cleansing No -Negative Pressure Wound Therapy Continue -Negative Pressure is Continuous -Primary Dressing Covered/Secured with Dry Gauze -NPWT Application Charge NPWT & Debridement (nc ) Pain Scale: 0-10 Numeric Is Patient Pain Free? Yes Teaching: Wound Center Compression Wraps & Stockings -Person Taught Patient -Teaching Method Discussion -Response to teaching Verbalize understanding WC - Visit Discharge Discharge Condition Stable Ambulatory Status Ambulatory Transportation Private Auto Medication Reconcilliation completed & Yes provided to patient/care provider Clinical Summary of Care Provided Yes Assessment/Plan Assessment/Plan (1) Ulcer of left lower extremity with muscle involvement without evidence of necrosis: CODE(S): L97.925 - Non-pressure chronic ulcer of unspecified part of left lower leg with muscle involvement without evidence of necrosis (2) Ulcer of left lower extremity with fat layer exposed: CODE(S): L97.922 - Non-pressure chronic ulcer of unspecified part of left lower leg with fat layer exposed (3) MRSA (methicillin resistant Staphylococcus aureus) infection: CODE(S): A49.02 - Methicillin resistant Staphylococcus aureus infection, unspecified site (4) History of incision and drainage: CODE(S): Z98.890 - Other specified postprocedural states (5) History of necrotizing fasciitis: CODE(S): Z87.39 - Personal history of other diseases of the musculoskeletal system and connective tissue (6) Borderline personality disorder: CODE(S): F60.3 - Borderline personality disorder PLAN: Plan Patient was evaluated at the wound healing center. Wound care - Restart the wound VAC at 150 mmHg to be changed 3 times per week. Wash wound and brenna wound at the time of the dressing change. The wound VAC holiday did improve her brenna wound. Will try using Cavilon advanced skin prep under the wound VAC drape to see if this will help protect her brenna wound from becoming excoriated. Compression - Single tubi-associate professor of economics with MOHINI wrap on left leg for compression. Wound Culture obtained 12/29/22 positive for Enterococcus faecalis, Corynebacterium amycolatum, and Staphylococcus epidermidis. Treated with Augmentin and Doxycycline. Wound culture obtained 01/28/23 which was positive for Enterococcus faecalis and Corynebacterium striatum. She completed Augmentin. A wound culture was obtained 04/05/23 which was positive for Staphylococcus epidermidis and Staphylococcus haemolyticus. She was treated with IV Vancomycin while she was hospitalized. Prealbumin 13.9 from 04/09/23. Encourage increase protein intake including supplemental protein shakes for her increased metabolic demands from the wounds. Her PCP, Dr. Bailey is managing her pain medications. He ordered home health to obtain a wound culture and the patient states it is MRSA and she is now on Tetracycline. I have not seen the culture result. She will follow up in one week.
[2023-06-28 13:53] VITALS: BP 164/86; PULSE 110; RESP 20; TEMP 36.7; BMI 48.9
--- NOTE | 2023-06-28 16:39 | PCM.WC.PN ---
History of Present Illness Date of Service: 06/28/23 Chief Complaint: non-healing surgical wounds of left medial and lateral leg History of Wound: Patient is a 22 year old female who presents to the wound healing center for evaluation of nonhealing surgical wounds of left left medial and lateral leg. Patient is a poor historian. Reviewed notes from [facility], she had been admitted to [place] around 11/27/22 for cellulitis and worsening infection of her left lower leg. She ended having an I&D of her left medial leg, left lateral leg and left lateral thigh. She was diagnosed with necrotizing fasciitis. Her wound cultures were positive for Enterococcus and steno. Mycoplasma IGG and IgM (+). She was sent to [facility] on 2 weeks dapto, arthur, clinda, levaquin, and micafungin. Changed Dap to to Vanc. On 12/12 stopped vanc/levaquin/arthur and started IV fluc due to diagnosis of candidemia. She was discharged home from [facility] around the second week of December. She has a history of significant for depression, personality disorder, self harm, anxiety, asthma, recurrent cellulitis and ADHD and most recently Afib and tachycardia. She states that she did not cause these wounds and did not do anything to them to make them worse. She has a history of being accused of tampering with wounds. Surgery 04/07/23 - Surgical preparation left medial leg with incision and drainage and excisional debridement nonhealing infected MRSA ulcer, (126 cm2). Operative culture were negative but she was on Vancomycin and Fluconazole for positive cultures from 04/05/23 which were positive for MRSE and Staphylococcus haemolyticus. Wound culture obtained on 12/29/22 which was positive for Enterococcus faecalis, Corynebacterium amycolatum, and MRSE. She was treated with Augmentin and Doxycycline. Wound culture obtained 01/28/23 which was positive for Enterococcus faecalis and Corynebacterium striatum. She was started on Augmentin. Left leg ultrasound obtained on 01/06/23 which showed There is no evidence of left lower extremity deep vein thrombosis. She was in [facility] for a week at the end of February for subcutaneous air around her wound. She states she cultured positive for MRSA and they had her on IV antibiotics. They used a wound VAC while she was in the hospital. She is now on Doxycycline. Today she denies fever, chills, nausea or vomiting. Progress of Wound: The left medial leg ulcer is smaller in size and the depth has decreased. Her brenna wound has minimal excoriation. Objective Data Objective Data Vital Signs: Vital Signs Temp Pulse Resp BP O2 Del Method 98.1 F 110 H 20 H 164/86 H Room Air 06/28/23 13:53 06/28/23 13:53 06/28/23 13:53 06/28/23 13:53 06/21/23 10:58 Oxygen Delivery Method Room Air Weight: 276 lb Body Mass Index (BMI) 48.9 Charges/Coding Procedures Integumentary 111xxx-113xx: 20821 Global Visit Debridement Note Debridement Note Wound debrided: #5 left medial leg Laterality: Left Wound Grade/Stage: 3 Type of Debridement: Excisional debridement Anesthesia Used: 5% Lidocaine Gel Depth: Down to and including healthy tissue, in the subcutaneous layer and to muscle Percentage of wound debrided: 100 Instrument Used: 7mm curette Tissue Removed: subcutaneous tissue and muscle. Severity: Fat Layer Exposed Amount of bleeding with debridement: Mild Bleeding Controlled with: Pressure and Compression and gauze Patient tolerated procedure: Patient tolerated procedure well Post-Debridement Measurements and Additional Note: Post-Debridement Measurements/Treatment - Nurse 1 - General Ulcer Assessment Start: 06/21/23 10:58 Freq: Status: Active Protocol: OBBO Activity Type Activity Date Activity User E-sign Co-sign Detail Recorded Client Recorded Date Recorded By Document 06/21/23 10:58 GM Desktop 06/21/23 11:07 GM Document 06/28/23 13:53 DL Desktop 06/28/23 14:00 DL 06/21/23 06/28/23 10:58 13:53 - Today's Visit Information Type of service Follow-up Visit Follow-up Visit (Physician/VICE CHAIR (Physician/VICE CHAIR ) ) Arrival Mode Ambulatory Ambulatory Transfer Assistance None None Patient Identification Verified (Name & Yes Yes ) Patient Requires Transmission-Based No No Precautions Height and Weight Body Mass Index (BMI) 48.9 48.9 BMI Classification Obese Obese Vital Signs Temperature (97.8 F-99.1 F) 96.1 F L 98.1 F Temperature Source Temporal Temporal Pulse Rate (60-100) 100 110 H Pulse Location Monitor Monitor Respiratory Rate (12-18) 16 20 H Respiratory rate source Observation Observation Oxygen Delivery Method Room Air Blood Pressure (90/60-120/80) 137/86 H 164/86 H Blood Pressure Mean (mm Hg) 103 112 Source Monitor Position Sitting Blood Pressure Location Right Arm History Since Last Visit- (Skip if this is Patient's initial visit) Have you changed medications since your No No last visit? Any new allergies or adverse reactions No No Had a fall/change in ADL's that may No No increase risk of falls Signs or symptoms of abuse and/or No No neglect since last visit Have you been in the hospital since your No No last visit? Has dressing in place as prescribed Yes Yes Has compression in place as prescribed Yes Yes Has offloadiing in place as prescribed N/A N/A Experienced any changes in pain level or No management Left Footwear Regular Shoe Right Footwear Regular Shoe Pain Scale: 0-10 Numeric Is Patient Pain Free? Yes Yes WC - Nurse 1 - General Ulcer Measurement Start: 06/21/23 10:58 Freq: Status: Active Protocol: Activity Type Activity Date Activity User E-sign Co-sign Detail Recorded Client Recorded Date Recorded By Document 06/21/23 10:58 GM Desktop 06/21/23 11:07 GM Document 06/28/23 13:53 DL Desktop 06/28/23 14:00 DL 06/21/23 06/28/23 10:58 13:53 Wound Center Nurse 1 #5 L medial LE -Combined with other wound No -Current Size (cm) - Length 10.8 9 -Current Size (cm) - Width 12.3 11.1 -Current Size (cm) - Depth 0.3 0.4 -Total Square Cm 132.84 99.9 -Photo Taken No -Epithelialization Small 1-33% -Tunneling No -Undermining/Tunneling No -Circular Undermining No -Exudate Amt Large Medium -Exudate Type Serosanguineous Serosanguineous -Wound Margin Distinct, Distinct, Outline Outline Attached Attached -Granulation Amt Large (67-100%) Large (67-100%) -Granulation Quality Red Red -Slough/Fibrin No -Necrosis Amt None Present (0 Small (1-33%) %) -Necrotic Tissue Type Adherent Slough -Structure Exposed N/A -Texture (Brenna-wound Skin Appearance) Assessed, Scarring,Rash Scarring -Moisture (Brenna-wound Skin Appearance) Assessed No Abnormality -Color (Brenna-wound Skin Appearance) Assessed No Abnormality -Temperature (Brenna-wound Skin No Abnormality No Abnormality Appearance) (Pt Warm) (Pt Warm) -Tenderness on Palpation (Brenna-wound No No Skin Appearance) -Ulcer Cleansing Soap and Water Soap and Water -Foul Odor after Cleansing No No -Anesthetic Used 4% Lidocaine 4% Lidocaine Solution Solution Lower Limb Edema Present Yes Right Calf (cm) 44 Right Ankle (cm) 26.7 Left Calf (cm) 45.5 Left Ankle (cm) 26.5 WC - Nurse 2 - General Ulcer CM Notes Start: 06/21/23 10:58 Freq: Status: Active Protocol: Activity Type Activity Date Activity User E-sign Co-sign Detail Recorded Client Recorded Date Recorded By Document 06/21/23 11:21 Laptop 06/21/23 11:25 Document 06/28/23 14:07 Laptop 06/28/23 14:08 06/21/23 06/28/23 11:21 14:07 Wound Center Nurse 2 #5 L medial LE -Time 11:22 14:07 -Correct Patient Yes Yes -Correct Side, Site, Position Yes Yes -Correct Procedure Yes Yes -Procedure Performed Yes Yes -Type of Procedure Debridement Debridement -Clinical Debridement Muscle / Fascia Muscle / Fascia -Tissue Removed Muscle Muscle -Post Debridement (cm) - Length 10.8 9.2 -Post Debridement (cm) - Width 12.0 11.5 -Post Debridement (cm) - Depth 0.4 0.3 -Total Square (Post) (cm) 129.60 105.80 -Area of Debridement (cm) - Length 10.8 9.2 -Area of Debridement (cm) - Width 12 11.5 -Total Square (Area) (cm) 129.6 105.80 -Tunneling No No -Undermining/Tunneling No No -Circular Undermining No No -Wound/Ulcer Outcome Not Healed Not Healed -Ulcer Cleansing Rinsed/ Rinsed/ Irrigated with Irrigated with Saline Saline -Foul Odor after Cleansing No No -Bioengineered Tissue No No -Bleeding Controlled with Pressure Pressure -Treatment Response Procedure Procedure Tolerated Well Tolerated Well -Offloading No No -Debridement - Muscle / Fascia, 1st Yes Yes 20sq cm -Debridement, Muscle/Fascia, ea addt'l 6 5 20sq cm or part thereof Pain Scale: 0-10 Numeric Is Patient Pain Free? Yes Yes - Nurse 3 - General Ulcer D/C NN Start: 06/21/23 10:58 Freq: Status: Active Protocol: Activity Type Activity Date Activity User E-sign Co-sign Detail Recorded Client Recorded Date Recorded By Document 06/21/23 11:36 Desktop 06/21/23 11:37 Document 06/28/23 14:17 [facility] Desktop 06/28/23 14:18 [facility] 06/21/23 06/28/23 11:36 14:17 Wound Care Center Nurse 3 #5 L medial LE -Ulcer Cleansing Not Cleansed Rinsed/ Irrigated with Saline -Foul Odor after Cleansing No No -Negative Pressure Wound Therapy Continue Continue -Setting (mmHg) 150 -Negative Pressure is Continuous Continuous -Other Dressing per dl aviation manager -Primary Dressing Covered/Secured with Dry Gauze -NPWT Application Charge NPWT & NPWT & Debridement (nc Debridement (nc ) ) Left -Compression Wrap Jonas Wrap -Tubular Bandage Single Layer -Size of Tubigrip Used Size E -Size E ($) 1 Treatment Response Procedure Tolerated Well Pain Scale: 0-10 Numeric Is Patient Pain Free? Yes Yes Teaching: Wound Center Compression Wraps & Stockings -Person Taught Patient -Teaching Method Discussion -Response to teaching Verbalize understanding WC - Visit Discharge Discharge Condition Stable Stable Ambulatory Status Ambulatory Ambulatory Transportation Private Auto Private Auto Medication Reconcilliation completed & Yes provided to patient/care provider Clinical Summary of Care Provided Yes Assessment/Plan Assessment/Plan (1) Ulcer of left lower extremity with muscle involvement without evidence of necrosis: CODE(S): L97.925 - Non-pressure chronic ulcer of unspecified part of left lower leg with muscle involvement without evidence of necrosis (2) Ulcer of left lower extremity with fat layer exposed: CODE(S): L97.922 - Non-pressure chronic ulcer of unspecified part of left lower leg with fat layer exposed (3) MRSA (methicillin resistant Staphylococcus aureus) infection: CODE(S): A49.02 - Methicillin resistant Staphylococcus aureus infection, unspecified site (4) History of incision and drainage: CODE(S): Z98.890 - Other specified postprocedural states (5) History of necrotizing fasciitis: CODE(S): Z87.39 - Personal history of other diseases of the musculoskeletal system and connective tissue (6) Borderline personality disorder: CODE(S): F60.3 - Borderline personality disorder PLAN: Plan Patient was evaluated at the wound healing center. Wound care - Wound VAC at 150 mmHg to be changed 3 times per week. Wash wound and brenna wound at the time of the dressing change. The wound VAC holiday did improve her brenna wound. Will try using Cavilon advanced skin prep under the wound VAC drape to see if this will help protect her brenna wound from becoming excoriated. Compression - Single tubi-power distributor with JONAS wrap on left leg for compression. Wound Culture obtained 12/29/22 positive for Enterococcus faecalis, Corynebacterium amycolatum, and Staphylococcus epidermidis. Treated with Augmentin and Doxycycline. Wound culture obtained 01/28/23 which was positive for Enterococcus faecalis and Corynebacterium striatum. She completed Augmentin. A wound culture was obtained 04/05/23 which was positive for Staphylococcus epidermidis and Staphylococcus haemolyticus. She was treated with IV Vancomycin while she was hospitalized. Prealbumin 13.9 from 04/09/23. Encourage increase protein intake including supplemental protein shakes for her increased metabolic demands from the wounds. Her PCP, Dr. Bailey is managing her pain medications. He ordered home health to obtain a wound culture and the patient states it is MRSA and she has completed Tetracycline. I have not seen the culture result. She will follow up in one week.
[2023-07-05 13:48] VITALS: BP 148/94; PULSE 108; TEMP 36.4; BMI 48.9
--- NOTE | 2023-07-05 16:19 | PN.PCM_ITS ---
History of Present Illness Date of Service: 07/05/23 Chief Complaint: non-healing surgical wounds of left medial and lateral leg History of Wound: Patient is a 22 year old female who presents to the wound healing center for evaluation of nonhealing surgical wounds of left left medial and lateral leg. Patient is a poor historian. [facility] had been admitted to [facility] around 11/27/22 for cellulitis and worsening infection of her left lower leg. She ended having an I&D of her left medial leg, left lateral leg and left lateral thigh. She was diagnosed with necrotizing fasciitis. Her wound cultures were positive for Enterococcus and steno. Mycoplasma IGG and IgM (+). She was sent to [facility] on 2 weeks dapto, arthur, clinda, levaquin, and micafungin. Changed Dap to to Vanc. On 12/12 stopped vanc/levaquin/arthur and started IV fluc due to diagnosis of candidemia. She was discharged home from [facility] around the second week of December. She has a history of significant for depression, personality disorder, self harm, anxiety, asthma, recurrent cellulitis and ADHD and most recently Afib and tachycardia. She states that she did not cause these wounds and did not do anything to them to make them worse. She has a history of being accused of tampering with wounds. Surgery 04/07/23 - Surgical preparation left medial leg with incision and drainage and excisional debridement nonhealing infected MRSA ulcer, (126 cm2). Operative culture were negative but she was on Vancomycin and Fluconazole for positive cultures from 04/05/23 which were positive for MRSE and Staphylococcus haemolyticus. Wound culture obtained on 12/29/22 which was positive for Enterococcus faecalis, Corynebacterium amycolatum, and MRSE. She was treated with Augmentin and Doxycycline. Wound culture obtained 01/28/23 which was positive for Enterococcus faecalis and Corynebacterium striatum. She was started on Augmentin. Left leg ultrasound obtained on 01/06/23 which showed There is no evidence of left lower extremity deep vein thrombosis. She was in [facility] for a week at the end of February for subcutaneous air around her wound. She states she cultured positive for MRSA and they had her on IV antibiotics. They used a wound VAC while she was in the hospital. She is now on Doxycycline. Today she denies fever, chills, nausea or vomiting. Progress of Wound: The left medial leg ulcer has a strong odor and color is a sorto/pink color. Brenna wound is excoriated. She denies any issues with her wound VAC but looking at the history on her vac it shows it was not on between 9 pm and 1 am on Wednesday. She denies knowing that the wound VAC was turned off. A wound culture was obtained today.? A positive culture will necessitate antibiotic therapy. Objective Data Objective Data Vital Signs: Vital Signs Temp Pulse Resp BP O2 Del Method 97.5 F L 108 H 20 H 148/94 H Room Air 07/05/23 13:48 07/05/23 13:48 06/28/23 13:53 07/05/23 13:48 07/05/23 13:48 Oxygen Delivery Method Room Air Weight: 276 lb Body Mass Index (BMI) 48.9 Charges/Coding Procedures Integumentary 111xxx-113xx: [id number] Global Visit Debridement Note Debridement Note Wound debrided: #5 left medial leg Laterality: Left Wound Grade/Stage: 3 Type of Debridement: Excisional debridement Anesthesia Used: 5% Lidocaine Gel Depth: Down to and including healthy tissue, in the subcutaneous layer and to muscle Percentage of wound debrided: 100 Instrument Used: 7mm curette Tissue Removed: subcutaneous tissue and muscle. Severity: Fat Layer Exposed Amount of bleeding with debridement: Mild Bleeding Controlled with: Pressure and Compression and gauze Patient tolerated procedure: Patient tolerated procedure well Post-Debridement Measurements and Additional Note: Post-Debridement Measurements/Treatment - Nurse 1 - General Ulcer Assessment Start: 06/21/23 10:58 Freq: Status: Active Protocol: BOBO Activity Type Activity Date Activity User E-sign Co-sign Detail Recorded Client Recorded Date Recorded By Document 06/21/23 10:58 Desktop 06/21/23 11:07 GM Document 06/28/23 13:53 DL Desktop 06/28/23 14:00 DL Document 07/05/23 13:48 Desktop 07/05/23 13:57 06/21/23 06/28/23 07/05/23 10:58 13:53 13:48 - Today's Visit Information Type of service Follow-up Visit Follow-up Visit Follow-up Visit (Physician/BALLISTICS PROFESSOR (Physician/BALLISTICS PROFESSOR (Physician/BALLISTICS PROFESSOR ) ) ) Arrival Mode Ambulatory Ambulatory Ambulatory Transfer Assistance None None None Patient Identification Verified (Name & Yes Yes Yes ) Patient Requires Transmission-Based No No No Precautions Height and Weight Body Mass Index (BMI) 48.9 48.9 48.9 BMI Classification Obese Obese Obese Vital Signs Temperature (97.8 F-99.1 F) 96.1 F L 98.1 F 97.5 F L Temperature Source Temporal Temporal Temporal Pulse Rate (60-100) 100 110 H 108 H Pulse Location Monitor Monitor Monitor Respiratory Rate (12-18) 16 20 H Respiratory rate source Observation Observation Observation Oxygen Delivery Method Room Air Room Air Blood Pressure (90/60-120/80) 137/86 H 164/86 H 148/94 H Blood Pressure Mean (mm Hg) 103 112 112 Source Monitor Monitor Position Sitting Sitting Blood Pressure Location Right Arm Right Forearm History Since Last Visit- (Skip if this is Patient's initial visit) Have you changed medications since your No No No last visit? Any new allergies or adverse reactions No No No Had a fall/change in ADL's that may No No No increase risk of falls Signs or symptoms of abuse and/or No No No neglect since last visit Have you been in the hospital since your No No No last visit? Has dressing in place as prescribed Yes Yes Yes Has compression in place as prescribed Yes Yes N/A Has offloadiing in place as prescribed N/A N/A N/A Experienced any changes in pain level or No management Left Footwear Regular Shoe Regular Shoe Right Footwear Regular Shoe Regular Shoe Pain Scale: 0-10 Numeric Is Patient Pain Free? Yes Yes Yes WC - Nurse 1 - General Ulcer Measurement Start: 06/21/23 10:58 Freq: Status: Active Protocol: Activity Type Activity Date Activity User E-sign Co-sign Detail Recorded Client Recorded Date Recorded By Document 06/21/23 10:58 GM Desktop 06/21/23 11:07 GM Document 06/28/23 13:53 DL Desktop 06/28/23 14:00 DL Document 07/05/23 13:48 GM Desktop 07/05/23 13:57 GM 06/21/23 06/28/23 07/05/23 10:58 13:53 13:48 Wound Center Nurse 1 #5 L medial LE -Combined with other wound No -Current Size (cm) - Length 10.8 9 -Current Size (cm) - Width 12.3 11.1 -Current Size (cm) - Depth 0.3 0.4 -Total Square Cm 132.84 99.9 -Photo Taken No -Epithelialization Small 1-33% Small 1-33% -Tunneling No No -Undermining/Tunneling No No -Circular Undermining No No -Exudate Amt Large Medium Large -Exudate Type Serosanguineous Serosanguineous Serosanguineous -Wound Margin Distinct, Distinct, Distinct, Outline Outline Outline Attached Attached Attached -Granulation Amt Large (67-100%) Large (67-100%) Large (67-100%) -Granulation Quality Red Red Red -Slough/Fibrin No -Necrosis Amt None Present (0 Small (1-33%) None Present (0 %) %) -Necrotic Tissue Type Adherent Slough -Structure Exposed N/A N/A -Texture (Brenna-wound Skin Appearance) Assessed, Scarring,Rash Assessed, Scarring Scarring -Moisture (Brenna-wound Skin Appearance) Assessed No Abnormality Assessed -Color (Brenna-wound Skin Appearance) Assessed No Abnormality Assessed -Temperature (Brenna-wound Skin No Abnormality No Abnormality No Abnormality Appearance) (Pt Warm) (Pt Warm) (Pt Warm) -Tenderness on Palpation (Brenna-wound No No Yes Skin Appearance) -Ulcer Cleansing Soap and Water Soap and Water Soap and Water -Foul Odor after Cleansing No No Yes -Anesthetic Used 4% Lidocaine 4% Lidocaine 5% Lidocaine Solution Solution Gel Lower Limb Edema Present Yes Right Calf (cm) 44 Right Ankle (cm) 26.7 Left Calf (cm) 45.5 Left Ankle (cm) 26.5 WC - Nurse 2 - General Ulcer CM Notes Start: 06/21/23 10:58 Freq: Status: Active Protocol: Activity Type Activity Date Activity User E-sign Co-sign Detail Recorded Client Recorded Date Recorded By Document 06/21/23 11:21 Laptop 06/21/23 11:25 Document 06/28/23 14:07 Laptop 06/28/23 14:08 Document 07/05/23 14:08 Laptop 07/05/23 14:15 06/21/23 06/28/23 07/05/23 11:21 14:07 14:08 Wound Center Nurse 2 #5 L medial LE -Time 11:22 14:07 14:15 -Correct Patient Yes Yes Yes -Correct Side, Site, Position Yes Yes Yes -Correct Procedure Yes Yes Yes -Procedure Performed Yes Yes Yes -Type of Procedure Debridement Debridement Debridement -Clinical Debridement Muscle / Fascia Muscle / Fascia Muscle / Fascia -Tissue Removed Muscle Muscle Muscle,Fascia -Post Debridement (cm) - Length 10.8 9.2 9.6 -Post Debridement (cm) - Width 12.0 11.5 11.1 -Post Debridement (cm) - Depth 0.4 0.3 0.2 -Total Square (Post) (cm) 129.60 105.80 106.56 -Area of Debridement (cm) - Length 10.8 9.2 9.6 -Area of Debridement (cm) - Width 12 11.5 11.1 -Total Square (Area) (cm) 129.6 105.80 106.56 -Tunneling No No No -Undermining/Tunneling No No No -Circular Undermining No No No -Wound/Ulcer Outcome Not Healed Not Healed Not Healed -Ulcer Cleansing Rinsed/ Rinsed/ Rinsed/ Irrigated with Irrigated with Irrigated with Saline Saline Saline -Foul Odor after Cleansing No No No -Bioengineered Tissue No No No -Bleeding Controlled with Pressure Pressure Pressure -Treatment Response Procedure Procedure Procedure Tolerated Well Tolerated Well Tolerated Well -Offloading No No No -Debridement - Muscle / Fascia, 1st Yes Yes Yes 20sq cm -Debridement, Muscle/Fascia, ea addt'l 6 5 5 20sq cm or part thereof Pain Scale: 0-10 Numeric Is Patient Pain Free? Yes Yes Yes - Nurse 3 - General Ulcer D/C NN Start: 06/21/23 10:58 Freq: Status: Active Protocol: Activity Type Activity Date Activity User E-sign Co-sign Detail Recorded Client Recorded Date Recorded By Document 06/21/23 11:36 Desktop 06/21/23 11:37 Document 06/28/23 14:17 [facility] Desktop 06/28/23 14:18 [facility] Document 07/05/23 14:21 Desktop 07/05/23 14:27 06/21/23 06/28/23 07/05/23 11:36 14:17 14:21 Wound Care Center Nurse 3 #5 L medial LE -Ulcer Cleansing Not Cleansed Rinsed/ Not Cleansed Irrigated with Saline -Foul Odor after Cleansing No No -Negative Pressure Wound Therapy Continue Continue N/A -Setting (mmHg) 150 -Negative Pressure is Continuous Continuous -Other Dressing per dl cutting table operator first -Primary Dressing Covered/Secured with Dry Gauze Dry Gauze,Dry Gauze & Roll Gauze,Secured with Tape -NPWT Application Charge NPWT & NPWT & Debridement (nc Debridement (nc ) ) Left -Compression Wrap Jonas Wrap Jonas Wrap -Tubular Bandage Single Layer Single Layer -Size of Tubigrip Used Size E Size E -Size E ($) 1 1 Treatment Response Procedure Tolerated Well Pain Scale: 0-10 Numeric Is Patient Pain Free? Yes Yes Yes Teaching: Wound Center *Infection -Person Taught Patient -Teaching Method Discussion -Response to teaching Verbalize understanding Compression Wraps & Stockings -Person Taught Patient Patient -Teaching Method Discussion Demonstration -Response to teaching Verbalize Verbalize understanding understanding WC - Visit Discharge Discharge Condition Stable Stable Stable Ambulatory Status Ambulatory Ambulatory Ambulatory Transportation Private Auto Private Auto Private Auto Medication Reconcilliation completed & Yes Yes provided to patient/care provider Clinical Summary of Care Provided Yes Yes Assessment/Plan Assessment/Plan (1) Ulcer of left lower extremity with muscle involvement without evidence of necrosis: CODE(S): L97.925 - Non-pressure chronic ulcer of unspecified part of left lower leg with muscle involvement without evidence of necrosis (2) Ulcer of left lower extremity with fat layer exposed: CODE(S): L97.922 - Non-pressure chronic ulcer of unspecified part of left lower leg with fat layer exposed (3) MRSA (methicillin resistant Staphylococcus aureus) infection: CODE(S): A49.02 - Methicillin resistant Staphylococcus aureus infection, unspecified site (4) History of incision and drainage: CODE(S): Z98.890 - Other specified postprocedural states (5) History of necrotizing fasciitis: CODE(S): Z87.39 - Personal history of other diseases of the musculoskeletal system and connective tissue (6) Borderline personality disorder: CODE(S): F60.3 - Borderline personality disorder PLAN: Plan Patient was evaluated at the wound healing center. Wound care - Place wound VAC on one week holiday due to odor and brenna wound excoriation. She will use Dakin's 0.25 moistened gauze covered with ABD daily after washing with soap and water. Will try using Cavilon advanced skin prep under the wound VAC drape to see if this will help protect her brenna wound from becoming excoriated. Compression - Single tubi-human services care specialist with JONAS wrap on left leg for compression. Wound Culture obtained 12/29/22 positive for Enterococcus faecalis, Corynebacterium amycolatum, and Staphylococcus epidermidis. Treated with Augmentin and Doxycycline. Wound culture obtained 01/28/23 which was positive for Enterococcus faecalis and Corynebacterium striatum. She completed Augmentin. A wound culture was obtained 04/05/23 which was positive for Staphylococcus epidermidis and Staphylococcus haemolyticus. She was treated with IV Vancomycin while she was hospitalized. Prealbumin 13.9 from 04/09/23. Encourage increase protein intake including supplemental protein shakes for her increased metabolic demands from the wounds. A wound culture was obtained today.? A positive culture will necessitate antibiotic therapy. Her PCP, Dr. Bailey is managing her pain medications. He ordered home health to obtain a wound culture and the patient states it is MRSA and she has completed Tetracycline. I have not seen the culture result. She will follow up in one week. 07/07/23- I phoned and spoke with Dr. Jain, her psychiatrist about my concerns that she may have turned her wound VAC off. I did not confront Josiane about this. I also found out today that Josiane admitted herself into inpatient psych at [facility] yesterday for suicidal thoughts. I just want to keep Dr. Jain aware of my concerns and of her wound progress.
== END 2023-07-08 23:59 | disposition home or self-care (01) ==
LOC: WC 13:45
PROVIDERS: PCP Student in an Organized Health Care Education/Training Program; Referring Provider Student in an Organized Health Care Education/Training Program; Visit Provider Nurse Practitioner Family
DX: L97.922 Non-pressure chronic ulcer of unspecified part of left lower leg with fat layer exposed (principal); L97.925 Non-pressure chronic ulcer of unspecified part of left lower leg with muscle involvement without evidence of necrosis; M72.6 Necrotizing fasciitis; F60.3 Borderline personality disorder; Z87.39 Personal history of other diseases of the musculoskeletal system and connective tissue; Z98.890 Other specified postprocedural states; B95.62 Methicillin resistant Staphylococcus aureus infection as the cause of diseases classified elsewhere
CPT/HCPCS: 11043; 11046; 87070; 87075; 87077; 87186; 87205

== ENCOUNTER 2023-07-26 11:02 | Outpatient (RCR) | payer MEDICAID, SELFPAY ==
[2023-07-09 00:45] VITALS: BP 148/94; PULSE 108; RESP 20; TEMP 36.4; BMI 48.9
[2023-07-26 11:07] VITALS: BP 120/74; PULSE 104; RESP 20; TEMP 36.4; BMI 48.9
--- NOTE | 2023-07-26 11:54 | PCM.WC.PN ---
History of Present Illness Date of Service: 07/26/23 Chief Complaint: non-healing surgical wounds of left medial and lateral leg History of Wound: Patient is a 22 year old female who presents to the wound healing center for evaluation of nonhealing surgical wounds of left left medial and lateral leg. Patient is a poor historian. Reviewed notes from [facility], she had been admitted to [facility] around 11/27/22 for cellulitis and worsening infection of her left lower leg. She ended having an I&D of her left medial leg, left lateral leg and left lateral thigh. She was diagnosed with necrotizing fasciitis. Her wound cultures were positive for Enterococcus and steno. Mycoplasma IGG and IgM (+). She was sent to [facility] on 2 weeks dapto, arthur, clinda, levaquin, and micafungin. Changed Dap to to Vanc. On 12/12 stopped vanc/levaquin/arthur and started IV fluc due to diagnosis of candidemia. She was discharged home from [facility] around the second week of December. She has a history of significant for depression, personality disorder, self harm, anxiety, asthma, recurrent cellulitis and ADHD and most recently Afib and tachycardia. She states that she did not cause these wounds and did not do anything to them to make them worse. She has a history of being accused of tampering with wounds. Surgery 04/07/23 - Surgical preparation left medial leg with incision and drainage and excisional debridement nonhealing infected MRSA ulcer, (126 cm2). Operative culture were negative but she was on Vancomycin and Fluconazole for positive cultures from 04/05/23 which were positive for MRSE and Staphylococcus haemolyticus. Wound culture obtained on 12/29/22 which was positive for Enterococcus faecalis, Corynebacterium amycolatum, and MRSE. She was treated with Augmentin and Doxycycline. Wound culture obtained 01/28/23 which was positive for Enterococcus faecalis and Corynebacterium striatum. She was started on Augmentin. Wound culture obtained 07/07/23 which was positive for Proteus mirabilis and MRSA. She was treated with Doxycycline and Augmentin. She was hospitalized at [facility] for psych when the results of the culture came back and the results were faxed to them for treatment. Left leg ultrasound obtained on 01/06/23 which showed There is no evidence of left lower extremity deep vein thrombosis. She was in [facility] for a week at the end of February for subcutaneous air around her wound. She states she cultured positive for MRSA and they had her on IV antibiotics. They used a wound VAC while she was in the hospital. She is now on Doxycycline. Today she denies fever, chills, nausea or vomiting. Progress of Wound: She was recently admitted to [facility] on psych, then was transferred to a medical floor for issues with her wound. She was treated with IV antibiotic. Today the left medial leg ulcer is slightly smaller. THe wound bed is pale pink. There is no longer any odor. She has been using the wound VAC. Objective Data Objective Data Vital Signs: Vital Signs Temp Pulse Resp BP 97.6 F L 104 H 20 H 120/74 07/26/23 11:07 07/26/23 11:07 07/26/23 11:07 07/26/23 11:07 Weight: 276 lb Body Mass Index (BMI) 48.9 Charges/Coding Procedures Integumentary 111xxx-113xx: 24121 Stephany musc/fascia 20 sq cm/< Add On Codes: 57684 Stephany musc/fascia add-on (x4) Debridement Note Debridement Note Wound debrided: #5 left medial leg Laterality: Left Wound Grade/Stage: 3 Type of Debridement: Excisional debridement Anesthesia Used: 5% Lidocaine Gel Depth: Down to and including healthy tissue, in the subcutaneous layer and to muscle Percentage of wound debrided: 100 Instrument Used: 7mm curette Tissue Removed: subcutaneous tissue and muscle. Severity: Fat Layer Exposed Amount of bleeding with debridement: Mild Bleeding Controlled with: Pressure and Compression and gauze Patient tolerated procedure: Patient tolerated procedure well Post-Debridement Measurements and Additional Note: Post-Debridement Measurements/Treatment - Nurse 1 - General Ulcer Assessment Start: 07/26/23 11:07 Freq: Status: Active Protocol: BOBO Activity Type Activity Date Activity User E-sign Co-sign Detail Recorded Client Recorded Date Recorded By Document 07/26/23 11:07 Desktop 07/26/23 11:13 DL 07/26/23 11:07 - Today's Visit Information Type of service Follow-up Visit (Physician/OIL TREATER ) Arrival Mode Ambulatory Patient Identification Verified (Name & Yes ) Height and Weight Body Mass Index (BMI) 48.9 BMI Classification Obese Vital Signs Temperature (97.8 F-99.1 F) 97.6 F L Temperature Source Temporal Pulse Rate (60-100) 104 H Pulse Location Monitor Respiratory Rate (12-18) 20 H Blood Pressure (90/60-120/80) 120/74 Blood Pressure Mean (mm Hg) 89 Source Monitor History Since Last Visit- (Skip if this is Patient's initial visit) Have you changed medications since your No last visit? Any new allergies or adverse reactions No Had a fall/change in ADL's that may No increase risk of falls Signs or symptoms of abuse and/or No neglect since last visit Have you been in the hospital since your No last visit? Has dressing in place as prescribed Yes Has compression in place as prescribed Yes Has offloadiing in place as prescribed N/A Experienced any changes in pain level or No management Pain Scale: 0-10 Numeric Is Patient Pain Free? Yes WC - Nurse 1 - General Ulcer Measurement Start: 07/26/23 11:07 Freq: Status: Active Protocol: Activity Type Activity Date Activity User E-sign Co-sign Detail Recorded Client Recorded Date Recorded By Document 07/26/23 11:07 DL Desktop 07/26/23 11:13 DL 07/26/23 11:07 Wound Center Nurse 1 #5 L medial LE -Current Size (cm) - Length 8.5 -Current Size (cm) - Width 9.5 -Current Size (cm) - Depth 1 -Total Square Cm 80.75 -Exudate Amt Medium -Exudate Type Serosanguineous -Wound Margin Distinct, Outline Attached -Granulation Amt Medium (34-66%) -Granulation Quality [place] -Necrosis Amt Medium (34-66%) -Necrotic Tissue Type Adherent Slough -Structure Exposed N/A -Texture (Brenna-wound Skin Appearance) Scarring -Moisture (Brenna-wound Skin Appearance) No Abnormality -Color (Brenna-wound Skin Appearance) No Abnormality -Temperature (Brenna-wound Skin No Abnormality Appearance) (Pt Warm) -Ulcer Cleansing Soap and Water -Foul Odor after Cleansing No -Anesthetic Used 4% Lidocaine Solution WC - Nurse 2 - General Ulcer CM Notes Start: 07/26/23 11:07 Freq: Status: Active Protocol: Activity Type Activity Date Activity User E-sign Co-sign Detail Recorded Client Recorded Date Recorded By Document 07/26/23 11:34 Laptop 12/18/23 11:36 07/26/23 11:34 Wound Center Nurse 2 -Time 11:34 -Correct Patient Yes -Correct Side, Site, Position Yes -Correct Procedure Yes -Procedure Performed Yes -Type of Procedure Debridement -Clinical Debridement Muscle / Fascia -Tissue Removed Fascia,Tendon -Post Debridement (cm) - Length 8.5 -Post Debridement (cm) - Width 10.0 -Post Debridement (cm) - Depth 0.7 -Total Square (Post) (cm) 85.00 -Area of Debridement (cm) - Length 8.5 -Area of Debridement (cm) - Width 10.0 -Total Square (Area) (cm) 85.00 -Tunneling No -Undermining/Tunneling No -Circular Undermining No -Wound/Ulcer Outcome Not Healed -Ulcer Cleansing Rinsed/ Irrigated with Saline -Foul Odor after Cleansing No -Bioengineered Tissue No -Bleeding Controlled with Pressure -Treatment Response Procedure Tolerated Well -Offloading No -Debridement - Muscle / Fascia, 1st Yes 20sq cm -Debridement, Muscle/Fascia, ea addt'l 4 20sq cm or part thereof Pain Scale: 0-10 Numeric Is Patient Pain Free? Yes - Nurse 3 - General Ulcer D/C NN Start: 07/26/23 11:07 Freq: Status: Active Protocol: Activity Type Activity Date Activity User E-sign Co-sign Detail Recorded Client Recorded Date Recorded By Document 07/26/23 11:44 DL Desktop 07/26/23 11:45 DL 07/26/23 11:44 Wound Care Center Nurse 3 #5 L medial LE -Ulcer Cleansing Soap and Water -Foul Odor after Cleansing No -Negative Pressure Wound Therapy Continue -Setting (mmHg) 150 -Negative Pressure is Continuous -NPWT Application Charge NPWT & Debridement (nc ) Left -Compression Wrap Jonas Wrap -Tubular Bandage Single Layer -Size of Tubigrip Used Size E -Size E ($) 1 Pain Scale: 0-10 Numeric Is Patient Pain Free? Yes - Visit Discharge Discharge Condition Stable Ambulatory Status Ambulatory Transportation Private [facility] Facility Type Home Health Orders Sent Yes Assessment/Plan Assessment/Plan (1) Ulcer of left lower extremity with muscle involvement without evidence of necrosis: CODE(S): L97.925 - Non-pressure chronic ulcer of unspecified part of left lower leg with muscle involvement without evidence of necrosis (2) Ulcer of left lower extremity with fat layer exposed: CODE(S): L97.922 - Non-pressure chronic ulcer of unspecified part of left lower leg with fat layer exposed (3) MRSA (methicillin resistant Staphylococcus aureus) infection: CODE(S): A49.02 - Methicillin resistant Staphylococcus aureus infection, unspecified site (4) History of incision and drainage: CODE(S): Z98.890 - Other specified postprocedural states (5) History of necrotizing fasciitis: CODE(S): Z87.39 - Personal history of other diseases of the musculoskeletal system and connective tissue (6) Borderline personality disorder: CODE(S): F60.3 - Borderline personality disorder PLAN: Plan Patient was evaluated at the wound healing center. Wound care - Wound VAC at 150 mmHg to be changed 3 times per week. Compression - Single tubi-lead atg developer with JONAS wrap on left leg for compression. Wound Culture obtained 12/29/22 positive for Enterococcus faecalis, Corynebacterium amycolatum, and Staphylococcus epidermidis. Treated with Augmentin and Doxycycline. Wound culture obtained 01/28/23 which was positive for Enterococcus faecalis and Corynebacterium striatum. She completed Augmentin. A wound culture was obtained 04/05/23 which was positive for Staphylococcus epidermidis and Staphylococcus haemolyticus. She was treated with IV Vancomycin while she was hospitalized. Prealbumin 13.9 from 04/09/23. Encourage increase protein intake including supplemental protein shakes for her increased metabolic demands from the wounds. A wound culture was obtained today.? A positive culture will necessitate antibiotic therapy. Her PCP, Dr. Bailey is managing her pain medications. He ordered home health to obtain a wound culture and the patient states it is MRSA and she has completed Tetracycline. I have not seen the culture result. She will follow up in two weeks because of the holiday.
--- NOTE | 2023-08-05 13:37 | WC ---
Patient called in to let me know that she had returned her wound vac since she was off of the machine multiple times while being hospitalized for other health concerns. Explained to her that I can't order another vac until the original one was sent back and processed. Notified Hilary Saleh NP who is okay with me placing another order for a new wound vac thru [facility]. Order sent via fax and patient was called to update about this. She will call her HH once it has been delivered.
== END 2023-08-08 23:59 | disposition home or self-care (01) ==
LOC: WC 11:02
PROVIDERS: PCP Student in an Organized Health Care Education/Training Program; Referring Provider Student in an Organized Health Care Education/Training Program; Visit Provider Nurse Practitioner Family
DX: L97.925 Non-pressure chronic ulcer of unspecified part of left lower leg with muscle involvement without evidence of necrosis (principal); L97.922 Non-pressure chronic ulcer of unspecified part of left lower leg with fat layer exposed; F60.3 Borderline personality disorder; A49.02 Methicillin resistant Staphylococcus aureus infection, unspecified site; Z87.39 Personal history of other diseases of the musculoskeletal system and connective tissue; Z98.890 Other specified postprocedural states
CPT/HCPCS: 11043; 11046

== ENCOUNTER → 2023-08-04 | Outpatient (CLI) | payer MEDICAID, SELFPAY ==
[2023-08-04 08:56] LABS: Absolute Lymphocyte Count 2.88 X10^3/uL (0.83-4.51); Absolute Neutrophil Count 5.6 X10^3/uL (2.0-7.7); Basophil# 0.06 X10^3/uL; Basophil% 0.6 % (0-1); Eosinophil# 0.26 X10^3/uL; Eosinophils% 2.8 % (0-5); Hematocrit 43.9 % (37-47); Hemoglobin 14.6 g/dL (12.0-15.0); Lymphocyte # 2.88 X10^3/ul (0.83-4.51); Lymphocyte % 30.5 % (19-41); Mean Corp Hgb Conc 33.3 g/dL (32-36); Mean Corpuscular Hgb 27.9 pg (27.0-32.0); Mean Corpuscular Volume 83.8 fL (81-99); Mean Platelet Vol. 10.5 fl (6.2-12.0); Monocyte# 0.66 X10^3/uL; NRBC Flagged by Analyzer 0 % (0-5); Neutrophil # 5.56 X10^3/uL (2.7-7.7); Neutrophil % 58.8 % (47-70); Platelet Count 270 K/mm3 (150-450); RBC Distribution Width CV 13.7 % (11.6-14.6); RBC Distribution Width SD 41.8 fl (35.1-43.9); Red Blood Count 5.24 M/mm3 (4.2-5.4); White Blood Count 9.5 K/mm3 (4.4-11.0)
[2023-08-04 09:15] LABS: Erythrocyte Sedimentation Rate 15 mm/hr (0-30)
[2023-08-04 10:04] LABS: ALB/GLOB Ratio 1.1 RATIO (0.9-2.4); AST(SGOT) 35 U/L (15-37); Alanine Aminotransfer ALT/SGPT 47 U/L (13-56); Albumin, Serum 3.7 g/dL (3.2-5.0); Alkaline Phosphatase 86 U/L (45-117); Anion Gap 10 (5-15); BUN 20 mg/dL (7-18); BUN/Creat Ratio 24.7 RATIO (10-20); Calcium,Total 9.3 mg/dL (8.5-10.1); Chloride 109 mmol/L (98-107); Creatinine, Serum 0.81 mg/dL (0.55-1.02); EST Glomerular Filtration Rate 93 mL/min (>60); Est Glom Filt Rate - Afr Amer 112 mL/min (>60); Globulin 3.5 g/dL (2.2-4.2); Glucose 141 mg/dL (74-106); Potassium 4.4 mmol/L (3.5-5.1); Protein, Total 7.2 g/dL (6.4-8.2); Sodium Level 138 mmol/L (136-145); Thyroid Stim Hormone (TSH) 2.41 uIU/mL (0.358-3.74)
== END | disposition home or self-care (01) ==
LOC: LAB 07:50
PROVIDERS: Student in an Organized Health Care Education/Training Program; PCP Student in an Organized Health Care Education/Training Program; Referring Provider Student in an Organized Health Care Education/Training Program; Visit Provider Student in an Organized Health Care Education/Training Program
DX: S81.802A Unspecified open wound, left lower leg, initial encounter (principal); Z79.899 Other long term (current) drug therapy; X58.XXXA Exposure to other specified factors, initial encounter
CPT/HCPCS: 80053; 80178; 84439; 84443; 85025; 85652; 86140

== ENCOUNTER 2023-09-06 11:15 | Outpatient (RCR) | payer MEDICAID, SELFPAY ==
[2023-08-09 00:44] VITALS: BP 120/74; PULSE 104; RESP 20; TEMP 36.4; BMI 48.9
[2023-08-11 13:06] VITALS: BP 146/96; PULSE 93; RESP 20; TEMP 36.6; BMI 48.9
--- NOTE | 2023-08-11 14:33 | PCM.WC.PN ---
History of Present Illness Date of Service: 08/11/23 Chief Complaint: non-healing ulcer left medial leg History of Wound: Patient is a 22 year old female who presents to the wound healing center for evaluation and treatment of a nonhealing ulcer left medial leg. Patient is a poor historian. Reviewed notes from [facility] [place], she had been admitted to [place] around 11/27/22 for cellulitis and worsening infection of her left lower leg. She ended having an I&D of her left medial leg, left lateral leg and left lateral thigh. She was diagnosed with necrotizing fasciitis. Her wound cultures were positive for Enterococcus and steno. Mycoplasma IGG and IgM (+). She was sent to [facility] on 2 weeks dapto, arthur, clinda, levaquin, and micafungin. Changed Dap to to Vanc. On 12/12 stopped vanc/levaquin/arthur and started IV fluc due to diagnosis of candidemia. She was discharged home from [facility] around the second week of December. She has a history of significant for depression, personality disorder, self harm, anxiety, asthma, recurrent cellulitis and ADHD and most recently Afib and tachycardia. She states that she did not cause these wounds and did not do anything to them to make them worse. She has a history of being accused of tampering with wounds. Surgery 04/07/23 - Surgical preparation left medial leg with incision and drainage and excisional debridement nonhealing infected MRSA ulcer, (126 cm2). Operative culture were negative but she was on Vancomycin and Fluconazole for positive cultures from 04/05/23 which were positive for MRSE and Staphylococcus haemolyticus. Wound culture obtained on 12/29/22 which was positive for Enterococcus faecalis, Corynebacterium amycolatum, and MRSE. She was treated with Augmentin and Doxycycline. Wound culture obtained 01/28/23 which was positive for Enterococcus faecalis and Corynebacterium striatum. She was started on Augmentin. Wound culture obtained 07/07/23 which was positive for Proteus mirabilis and MRSA. She was treated with Doxycycline and Augmentin. Left leg ultrasound obtained on 01/06/23 which showed There is no evidence of left lower extremity deep vein thrombosis. She was in [facility] for a week at the end of February for subcutaneous air around her wound. She states she cultured positive for MRSA and they had her on IV antibiotics. They used a wound VAC while she was in the hospital. She is now on Doxycycline. Today she denies fever, chills, nausea or vomiting. Progress of Wound: Improved. Objective Data Objective Data Vital Signs: Vital Signs Temp Pulse Resp BP 97.8 F 93 20 H 146/96 H 08/11/23 13:06 08/11/23 13:06 08/11/23 13:06 08/11/23 13:06 Weight: 276 lb Body Mass Index (BMI) 48.9 Prealbumin 13.9 from 04/09/23. Encourage nutritional supplementation with protein to help the healing process. Lab / Micro Data Attestation: I reviewed the patient's lab results. Charges/Coding Procedures Integumentary 111xxx-113xx: 48045 Stephany musc/fascia 20 sq cm/< (ICD-10 - L97.925, A49.02, Z98.890, Z87.39, F60.3) Add On Codes: 48758 Stephany musc/fascia add-on (x3 ICD-10 - L97.925, A49.02, Z98.890, Z87.39, F60.3) Debridement Note Debridement Note Wound debrided: #5 left medial leg Laterality: Left Wound Grade/Stage: 3 Type of Debridement: Excisional debridement Anesthesia Used: 5% Lidocaine Gel Depth: Down to and including healthy tissue, in the subcutaneous layer and to muscle Percentage of wound debrided: 100 Instrument Used: 7mm curette Tissue Removed: subcutaneous tissue and muscle. Severity: Fat Layer Exposed (muscle is exposed) Amount of bleeding with debridement: Mild Bleeding Controlled with: Pressure and Compression and gauze Patient tolerated procedure: Patient tolerated procedure well Post-Debridement Measurements and Additional Note: Post-Debridement Measurements/Treatment - Nurse 1 - General Ulcer Assessment Start: 08/11/23 13:04 Freq: Status: Active Protocol: BOBO Activity Type Activity Date Activity User E-sign Co-sign Detail Recorded Client Recorded Date Recorded By Document 08/11/23 13:06 DL Desktop 08/11/23 13:11 DL 08/11/23 13:06 - Today's Visit Information Type of service Follow-up Visit (Physician/OFFICE HELPER CLERICAL ) Arrival Mode Ambulatory Transfer Assistance Transfer Board Patient Identification Verified (Name & Yes ) Patient Requires Transmission-Based No Precautions Height and Weight Body Mass Index (BMI) 48.9 BMI Classification Obese Vital Signs Temperature (97.8 F-99.1 F) 97.8 F Temperature Source Temporal Pulse Rate (60-100) 93 Pulse Location Monitor Respiratory Rate (12-18) 20 H Respiratory rate source Observation Blood Pressure (90/60-120/80) 146/96 H Blood Pressure Mean (mm Hg) 112 Source Monitor History Since Last Visit- (Skip if this is Patient's initial visit) Have you changed medications since your No last visit? Any new allergies or adverse reactions No Had a fall/change in ADL's that may No increase risk of falls Signs or symptoms of abuse and/or No neglect since last visit Have you been in the hospital since your No last visit? Has dressing in place as prescribed Yes Has compression in place as prescribed N/A Has offloadiing in place as prescribed Yes Experienced any changes in pain level or No management Pain Scale: 0-10 Numeric Is Patient Pain Free? Yes WC - Nurse 1 - General Ulcer Measurement Start: 08/11/23 13:04 Freq: Status: Active Protocol: Activity Type Activity Date Activity User E-sign Co-sign Detail Recorded Client Recorded Date Recorded By Document 08/11/23 13:06 DL Desktop 08/11/23 13:11 DL 08/11/23 13:06 Wound Center Nurse 1 #5 L medial LE -Current Size (cm) - Length 7.6 -Current Size (cm) - Width 9.6 -Current Size (cm) - Depth 1 -Total Square Cm 72.96 -Photo Taken Yes -Exudate Amt Medium -Exudate Type Serosanguineous -Wound Margin Distinct, Outline Attached -Granulation Amt Large (67-100%) -Granulation Quality Red -Necrosis Amt Small (1-33%) -Necrotic Tissue Type Adherent Slough -Structure Exposed N/A -Texture (Brenna-wound Skin Appearance) Scarring,Rash -Moisture (Brenna-wound Skin Appearance) Weeping -Color (Brenna-wound Skin Appearance) No Abnormality -Temperature (Brenna-wound Skin No Abnormality Appearance) (Pt Warm) -Ulcer Cleansing Soap and Water -Foul Odor after Cleansing No -Anesthetic Used 4% Lidocaine Solution Left Calf (cm) 47.7 Left Ankle (cm) 28 WC - Nurse 2 - General Ulcer CM Notes Start: 08/11/23 13:04 Freq: Status: Active Protocol: Activity Type Activity Date Activity User E-sign Co-sign Detail Recorded Client Recorded Date Recorded By Document 08/11/23 13:47 MW Desktop 08/11/23 13:53 MW 08/11/23 13:47 Wound Center Nurse 2 #5 L medial LE -Time 13:47 -Correct Patient Yes -Correct Side, Site, Position Yes -Correct Procedure Yes -Procedure Performed Yes -Type of Procedure Debridement -Clinical Debridement Muscle / Fascia -Tissue Removed Muscle,Fascia -Post Debridement (cm) - Length 8.0 -Post Debridement (cm) - Width 9.7 -Post Debridement (cm) - Depth 0.4 -Total Square (Post) (cm) 77.60 -Area of Debridement (cm) - Length 8.0 -Area of Debridement (cm) - Width 9.7 -Total Square (Area) (cm) 77.60 -Tunneling No -Undermining/Tunneling No -Circular Undermining No -Wound/Ulcer Outcome Not Healed -Ulcer Cleansing Rinsed/ Irrigated with Saline -Foul Odor after Cleansing No -Bioengineered Tissue No -Bleeding Controlled with Pressure -Treatment Response Procedure Tolerated Well -Offloading No -Debridement - Muscle / Fascia, 1st Yes 20sq cm -Debridement, Muscle/Fascia, ea addt'l 3 20sq cm or part thereof Pain Scale: 0-10 Numeric Is Patient Pain Free? Yes - Nurse 3 - General Ulcer D/C NN Start: 08/11/23 13:04 Freq: Status: Active Protocol: Activity Type Activity Date Activity User E-sign Co-sign Detail Recorded Client Recorded Date Recorded By Document 08/11/23 14:00 DL Desktop 08/11/23 14:02 DL 08/11/23 14:00 Wound Care Center Nurse 3 #5 L medial LE -Ulcer Cleansing Rinsed/ Irrigated with Saline -Foul Odor after Cleansing No -Negative Pressure Wound Therapy Continue -Setting (mmHg) 150 -Negative Pressure is Continuous -NPWT Application Charge NPWT & Debridement (nc ) Left -Tubular Bandage Single Layer -Size of Tubigrip Used Size E -Size E ($) 1 Pain Scale: 0-10 Numeric Is Patient Pain Free? Yes WC - Visit Discharge Discharge Condition Stable Ambulatory Status Ambulatory Transportation Private [facility] Facility Type Adjuster Care Facility Orders Sent Yes Assessment/Plan Assessment/Plan (1) Ulcer of left lower extremity with muscle involvement without evidence of necrosis: CODE(S): L97.925 - Non-pressure chronic ulcer of unspecified part of left lower leg with muscle involvement without evidence of necrosis (2) MRSA (methicillin resistant Staphylococcus aureus) infection: CODE(S): A49.02 - Methicillin resistant Staphylococcus aureus infection, unspecified site (3) History of incision and drainage: CODE(S): Z98.890 - Other specified postprocedural states (4) History of necrotizing fasciitis: CODE(S): Z87.39 - Personal history of other diseases of the musculoskeletal system and connective tissue (5) Borderline personality disorder: CODE(S): F60.3 - Borderline personality disorder PLAN: Plan Wound care - Wound VAC at 150 mmHg to be changed 3 times per week. Will use a smaller drape to hopefully minimize blistering. If not effective, will proceed with daily dressing changes without a drape. Would use a Kerlix gauze followed by an mohini wrap. Compression - Single tubi-revenue enforcement agent with MOHINI wrap on left leg for compression. Wound Culture obtained 12/29/22 positive for Enterococcus faecalis, Corynebacterium amycolatum, and Staphylococcus epidermidis. Treated with Augmentin and Doxycycline. Wound culture obtained 01/28/23 which was positive for Enterococcus faecalis and Corynebacterium striatum. She completed Augmentin. A wound culture was obtained 04/05/23 which was positive for Staphylococcus epidermidis and Staphylococcus haemolyticus. She was treated with IV Vancomycin while she was hospitalized. Prealbumin 13.9 from 04/09/23. Encourage increase protein intake including supplemental protein shakes for her increased metabolic demands from the wounds. Wound culture from 07/05/23 was positive for Proteus mirabilis and MRSA. She was treated with Augmentin and Doxycycline. Discussed with the patient and her mother that the ulcer is ready for placement of advanced skin substitute grafts such as Thera-Skin. Will obtain insurance approval. Once approved, we can apply the Thera-Skin 10 times over a 12 week period. If not completely healed after that, the underlying wound bed would be primed for a skin graft in the OR and would have a better chance of healing because of the previous placement of Thera-Skin. Follow up in one week.
[2023-08-17 14:32] VITALS: BP 141/80; PULSE 104; RESP 18; TEMP 35.8; BMI 48.9
--- NOTE | 2023-08-17 15:35 | PCM.WC.PN ---
History of Present Illness Date of Service: 08/17/23 Chief Complaint: non-healing ulcer left medial leg History of Wound: Patient is a 22 year old female who presents to the wound healing center for evaluation and treatment of a nonhealing ulcer left medial leg. Patient is a poor historian. Reviewed notes from [facility] [place], she had been admitted to [place] around 11/27/22 for cellulitis and worsening infection of her left lower leg. She ended having an I&D of her left medial leg, left lateral leg and left lateral thigh. She was diagnosed with necrotizing fasciitis. Her wound cultures were positive for Enterococcus and steno. Mycoplasma IGG and IgM (+). She was sent to [facility] on 2 weeks dapto, arthur, clinda, levaquin, and micafungin. Changed Dap to to Vanc. On 12/12 stopped vanc/levaquin/arthur and started IV fluc due to diagnosis of candidemia. She was discharged home from [facility] around the second week of December. She has a history of significant for depression, personality disorder, self harm, anxiety, asthma, recurrent cellulitis and ADHD and most recently Afib and tachycardia. She states that she did not cause these wounds and did not do anything to them to make them worse. She has a history of being accused of tampering with wounds. Surgery 04/07/23 - Surgical preparation left medial leg with incision and drainage and excisional debridement nonhealing infected MRSA ulcer, (126 cm2). Operative culture were negative but she was on Vancomycin and Fluconazole for positive cultures from 04/05/23 which were positive for MRSE and Staphylococcus haemolyticus. Wound culture obtained on 12/29/22 which was positive for Enterococcus faecalis, Corynebacterium amycolatum, and MRSE. She was treated with Augmentin and Doxycycline. Wound culture obtained 01/28/23 which was positive for Enterococcus faecalis and Corynebacterium striatum. She was started on Augmentin. Wound culture obtained 07/07/23 which was positive for Proteus mirabilis and MRSA. She was treated with Doxycycline and Augmentin. Left leg ultrasound obtained on 01/06/23 which showed There is no evidence of left lower extremity deep vein thrombosis. She was in [facility] for a week at the end of February for subcutaneous air around her wound. She states she cultured positive for MRSA and they had her on IV antibiotics. They used a wound VAC while she was in the hospital. She is now on Doxycycline. Today she denies fever, chills, nausea or vomiting. Progress of Wound: Left leg ulcer is slightly smaller this week. She has a cluster of superficial areas distal to the ulcer that were blisters last week. She has concerns that her wound has an odor and a green tint to the drainage. She is denying fever, chills, nausea or vomiting. She has no erythema or warmth to the ulcer. The ulcer looks clean with no odor at this time. I discussed waiting to culture the ulcer and it was mentioned by the patient and her mother that she sees her PCP Wednesday and maybe he will culture it. I discussed that I would prefer to manage the wound. I also voiced my concern that she has been on a lot of antibiotics recently and it is good to not be on any if it is not necessary. It was decided to culture the wound today after her debridement when it would be the most accurate. Objective Data Objective Data Vital Signs: Vital Signs Temp Pulse Resp BP O2 Del Method 96.5 F L 104 H 18 141/80 H Room Air 08/17/23 14:32 08/17/23 14:32 08/17/23 14:32 08/17/23 14:32 08/17/23 14:32 Oxygen Delivery Method Room Air Weight: 276 lb Body Mass Index (BMI) 48.9 Charges/Coding Procedures Integumentary 111xxx-113xx: [id number] Stephany musc/fascia 20 sq cm/< (ICD-10 - L97.925, A49.02, Z98.890, Z87.39, F60.3) Add On Codes: 84273 Stephany musc/fascia add-on (x3 ICD-10 - L97.925, A49.02, Z98.890, Z87.39, F60.3) Debridement Note Debridement Note Wound debrided: #5 left medial leg Laterality: Left Wound Grade/Stage: 3 Type of Debridement: Excisional debridement Anesthesia Used: 5% Lidocaine Gel Depth: Down to and including healthy tissue, in the subcutaneous layer and to muscle Percentage of wound debrided: 100 Instrument Used: 7mm curette Tissue Removed: subcutaneous tissue and muscle. Severity: Fat Layer Exposed (muscle is exposed) Amount of bleeding with debridement: Mild Bleeding Controlled with: Pressure and Compression and gauze Patient tolerated procedure: Patient tolerated procedure well Post-Debridement Measurements and Additional Note: Post-Debridement Measurements/Treatment WC - Nurse 1 - General Ulcer Assessment Start: 08/11/23 13:04 Freq: Status: Active Protocol: BOBO Activity Type Activity Date Activity User E-sign Co-sign Detail Recorded Client Recorded Date Recorded By Document 08/11/23 13:06 DL Desktop 08/11/23 13:11 DL Document 08/17/23 14:32 KW Desktop 08/17/23 14:47 KW 08/11/23 08/17/23 13:06 14:32 WC - Today's Visit Information Type of service Follow-up Visit Follow-up Visit (Physician/COMMERCIAL FIELD INSPECTOR (Physician/COMMERCIAL FIELD INSPECTOR ) ) Arrival Mode Ambulatory Ambulatory Transfer Assistance Transfer Board Accompanied by mother Patient Identification Verified (Name & Yes Yes ) Patient Requires Transmission-Based No Precautions Height and Weight Body Mass Index (BMI) 48.9 48.9 BMI Classification Obese Obese Vital Signs Temperature (97.8 F-99.1 F) 97.8 F 96.5 F L Temperature Source Temporal Temporal Pulse Rate (60-100) 93 104 H Pulse Location Monitor Monitor Respiratory Rate (12-18) 20 H 18 Respiratory rate source Observation Observation Oxygen Delivery Method Room Air Blood Pressure (90/60-120/80) 146/96 H 141/80 H Blood Pressure Mean (mm Hg) 112 100 Source Monitor Monitor Position Semi-Fowlers Blood Pressure Location Left Forearm History Since Last Visit- (Skip if this is Patient's initial visit) Have you changed medications since your No No last visit? Any new allergies or adverse reactions No No Had a fall/change in ADL's that may No No increase risk of falls Signs or symptoms of abuse and/or No No neglect since last visit Have you been in the hospital since your No No last visit? Has dressing in place as prescribed Yes Yes Has compression in place as prescribed N/A Yes Has offloadiing in place as prescribed Yes No Experienced any changes in pain level or No No management Left Footwear Regular Shoe Right Footwear Regular Shoe Pain Scale: 0-10 Numeric Is Patient Pain Free? Yes Yes STALIN - Nurse 1 - General Ulcer Measurement Start: 08/11/23 13:04 Freq: Status: Active Protocol: Activity Type Activity Date Activity User E-sign Co-sign Detail Recorded Client Recorded Date Recorded By Document 08/11/23 13:06 DL Desktop 08/11/23 13:11 DL Document 08/17/23 14:32 KW Desktop 08/17/23 14:47 KW 08/11/23 08/17/23 13:06 14:32 Wound Center Nurse 1 #7 L LOWER LEG CLUSTER -Current Size (cm) - Length 5 -Current Size (cm) - Width 5.3 -Current Size (cm) - Depth 0.1 -Total Square Cm 26.5 -Exudate Amt Medium -Exudate Type Serosanguineous -Wound Margin Distinct, Outline Attached -Granulation Amt Medium (34-66%) -Granulation Quality Red -Necrosis Amt Small (1-33%) -Necrotic Tissue Type Adherent Slough -Texture (Brenna-wound Skin Appearance) Assessed -Moisture (Brenna-wound Skin Appearance) Assessed -Color (Brenna-wound Skin Appearance) Assessed -Temperature (Brenna-wound Skin No Abnormality Appearance) (Pt Warm) -Ulcer Cleansing Soap and Water -Foul Odor after Cleansing No -Anesthetic Used 4% Lidocaine Solution #5 L medial LE -Current Size (cm) - Length 7.6 8 -Current Size (cm) - Width 9.6 9.1 -Current Size (cm) - Depth 1 0.1 -Total Square Cm 72.96 72.8 -Photo Taken Yes -Exudate Amt Medium Small -Exudate Type Serosanguineous Serosanguineous -Wound Margin Distinct, Distinct, Outline Outline Attached Attached -Granulation Amt Large (67-100%) Large (67-100%) -Granulation Quality Red Red -Necrosis Amt Small (1-33%) Small (1-33%) -Necrotic Tissue Type Adherent Slough Adherent Slough -Structure Exposed N/A -Texture (Brenna-wound Skin Appearance) Scarring,Rash Assessed -Moisture (Brenna-wound Skin Appearance) Weeping Assessed -Color (Brenna-wound Skin Appearance) No Abnormality Assessed, Erythema -Temperature (Brenna-wound Skin No Abnormality No Abnormality Appearance) (Pt Warm) (Pt Warm) -Ulcer Cleansing Soap and Water Soap and Water -Foul Odor after Cleansing No No -Anesthetic Used 4% Lidocaine 4% Lidocaine Solution Solution Left Calf (cm) 47.7 46.3 Left Ankle (cm) 28 27.3 WC - Nurse 2 - General Ulcer CM Notes Start: 08/11/23 13:04 Freq: Status: Active Protocol: Activity Type Activity Date Activity User E-sign Co-sign Detail Recorded Client Recorded Date Recorded By Document 08/11/23 13:47 MW Desktop 08/11/23 13:53 MW 08/11/23 13:47 Wound Center Nurse 2 #5 L medial LE -Time 13:47 -Correct Patient Yes -Correct Side, Site, Position Yes -Correct Procedure Yes -Procedure Performed Yes -Type of Procedure Debridement -Clinical Debridement Muscle / Fascia -Tissue Removed Muscle,Fascia -Post Debridement (cm) - Length 8.0 -Post Debridement (cm) - Width 9.7 -Post Debridement (cm) - Depth 0.4 -Total Square (Post) (cm) 77.60 -Area of Debridement (cm) - Length 8.0 -Area of Debridement (cm) - Width 9.7 -Total Square (Area) (cm) 77.60 -Tunneling No -Undermining/Tunneling No -Circular Undermining No -Wound/Ulcer Outcome Not Healed -Ulcer Cleansing Rinsed/ Irrigated with Saline -Foul Odor after Cleansing No -Bioengineered Tissue No -Bleeding Controlled with Pressure -Treatment Response Procedure Tolerated Well -Offloading No -Debridement - Muscle / Fascia, 1st Yes 20sq cm -Debridement, Muscle/Fascia, ea addt'l 3 20sq cm or part thereof Pain Scale: 0-10 Numeric Is Patient Pain Free? Yes - Nurse 3 - General Ulcer D/C NN Start: 08/11/23 13:04 Freq: Status: Active Protocol: Activity Type Activity Date Activity User E-sign Co-sign Detail Recorded Client Recorded Date Recorded By Document 08/11/23 14:00 DL Desktop 08/11/23 14:02 DL Document 08/17/23 15:13 KW Desktop 08/17/23 15:15 KW 08/11/23 08/17/23 14:00 15:13 Wound Care Center Nurse 3 #7 L LOWER LEG CLUSTER -Ulcer Cleansing Rinsed/ Irrigated with Saline -Primary Dressing Applied NonAdherent Contact Layer -Primary Dressing Covered/Secured with Dry Gauze & Roll Gauze, Secured with Tape #5 L medial LE -Ulcer Cleansing Rinsed/ Irrigated with Saline -Foul Odor after Cleansing No -Negative Pressure Wound Therapy Continue Continue -Setting (mmHg) 150 150 -Negative Pressure is Continuous Continuous -NPWT Application Charge NPWT & NPWT & Debridement (nc Debridement (nc ) ) Left -Compression Wrap Jonas Wrap -Tubular Bandage Single Layer Single Layer -Size of Tubigrip Used Size E Size E -Size E ($) 1 1 Pain Scale: 0-10 Numeric Is Patient Pain Free? Yes Yes WC - Visit Discharge Discharge Condition Stable Stable Ambulatory Status Ambulatory Ambulatory Transportation Private Auto Private Auto Medication Reconcilliation completed & No provided to patient/care provider Clinical Summary of Care Provided Yes Facility Type Nursing Home Care Facility Orders Sent Yes Assessment/Plan Assessment/Plan (1) Ulcer of left lower extremity with muscle involvement without evidence of necrosis: CODE(S): L97.925 - Non-pressure chronic ulcer of unspecified part of left lower leg with muscle involvement without evidence of necrosis (2) MRSA (methicillin resistant Staphylococcus aureus) infection: CODE(S): A49.02 - Methicillin resistant Staphylococcus aureus infection, unspecified site (3) History of incision and drainage: CODE(S): Z98.890 - Other specified postprocedural states (4) History of necrotizing fasciitis: CODE(S): Z87.39 - Personal history of other diseases of the musculoskeletal system and connective tissue (5) Borderline personality disorder: CODE(S): F60.3 - Borderline personality disorder PLAN: Plan Wound care - Wound VAC at 150 mmHg to be changed 3 times per week. Will use a smaller drape to hopefully minimize blistering. Place adaptic daily and cover with gauze over the distal leg where the blistering was located. Compression - Single tubi-salesperson men's furnishings with JONAS wrap on left leg for compression. Wound Culture obtained 12/29/22 positive for Enterococcus faecalis, Corynebacterium amycolatum, and Staphylococcus epidermidis. Treated with Augmentin and Doxycycline. Wound culture obtained 01/28/23 which was positive for Enterococcus faecalis and Corynebacterium striatum. She completed Augmentin. A wound culture was obtained 04/05/23 which was positive for Staphylococcus epidermidis and Staphylococcus haemolyticus. She was treated with IV Vancomycin while she was hospitalized. Prealbumin 13.9 from 04/09/23. Encourage increase protein intake including supplemental protein shakes for her increased metabolic demands from the wounds. Wound culture from 07/05/23 was positive for Proteus mirabilis and MRSA. She was treated with Augmentin and Doxycycline. A wound culture was obtained today, 06/17/23.? A positive culture will necessitate antibiotic therapy. Discussed with the patient and her mother that the ulcer is ready for placement of advanced skin substitute grafts such as Thera-Skin. Waiting for insurance approval. Once approved, we can apply the Thera-Skin 10 times over a 12 week period. If not completely healed after that, the underlying wound bed would be primed for a skin graft in the OR and would have a better chance of healing because of the previous placement of Thera-Skin. Follow up in one week.
[2023-08-23 11:12] VITALS: BP 128/85; PULSE 105; RESP 18; BMI 48.9
--- NOTE | 2023-08-23 13:54 | PN.PCM_ITS ---
History of Present Illness Date of Service: 08/23/23 Chief Complaint: non-healing ulcer left medial leg History of Wound: Patient is a 22 year old female who presents to the wound healing center for evaluation and treatment of a nonhealing ulcer left medial leg. Patient is a poor historian. Reviewed notes from [facility], she had been admitted to [place] around 11/27/22 for cellulitis and worsening infection of her left lower leg. She ended having an I&D of her left medial leg, left lateral leg and left lateral thigh. She was diagnosed with necrotizing fasciitis. Her wound cultures were positive for Enterococcus and steno. Mycoplasma IGG and IgM (+). She was sent to [facility] on 2 weeks dapto, arthur, clinda, levaquin, and micafungin. Changed Dap to to Vanc. On 12/12 stopped vanc/levaquin/arthur and started IV fluc due to diagnosis of candidemia. She was discharged home from [facility] around the second week of December. She has a history of significant for depression, personality disorder, self harm, anxiety, asthma, recurrent cellulitis and ADHD and most recently Afib and tachycardia. She states that she did not cause these wounds and did not do anything to them to make them worse. She has a history of being accused of tampering with wounds. Surgery 04/07/23 - Surgical preparation left medial leg with incision and drainage and excisional debridement nonhealing infected MRSA ulcer, (126 cm2). Operative culture were negative but she was on Vancomycin and Fluconazole for positive cultures from 04/05/23 which were positive for MRSE and Staphylococcus haemolyticus. Wound culture obtained on 12/29/22 which was positive for Enterococcus faecalis, Corynebacterium amycolatum, and MRSE. She was treated with Augmentin and Doxycycline. Wound culture obtained 01/28/23 which was positive for Enterococcus faecalis and Corynebacterium striatum. She was started on Augmentin. Wound culture obtained 07/07/23 which was positive for Proteus mirabilis and MRSA. She was treated with Doxycycline and Augmentin. Wound culture obtained 08/18/23 which was positive for Proteus mirabilis, Enterococcus faecalis and Corynebacterium striatum. She was started on Augmentin to cover the Proteus and Enterococcus. The Corynebacterium is considered a skin contaminant. Left leg ultrasound obtained on 01/06/23 which showed There is no evidence of left lower extremity deep vein thrombosis. She was in [facility] for a week at the end of February for subcutaneous air around her wound. She states she cultured positive for MRSA and they had her on IV antibiotics. They used a wound VAC while she was in the hospital. She is now on Doxycycline. Today she denies fever, chills, nausea or vomiting. Progress of Wound: Left leg ulcer is slightly smaller this week. She has a cluster of superficial areas distal to the ulcer that were blisters from the wound VAC drape, that are healing. She has been tolerating the Augmentin that she was started on last week for her positive cultures. She has been approved for [employer]in. She will have h er first application today. Objective Data Objective Data Vital Signs: Vital Signs Temp Pulse Resp BP O2 Del Method 96.5 F L 105 H 18 128/85 H Room Air 08/17/23 14:32 08/23/23 11:12 08/23/23 11:12 08/23/23 11:12 08/23/23 11:12 Oxygen Delivery Method Room Air Weight: 276 lb Body Mass Index (BMI) 48.9 Lab / Micro Data Micro: Microbiology 08/18/23 10:00 Wound - Leg, Left Gram Stain - Final 08/18/23 10:00 Wound - Leg, Left Wound Culture - Final Proteus mirabilis Enterococcus faecalis Corynebacterium striatum 08/18/23 10:00 Wound - Leg, Left Anaerobic Culture - Final No anaerobic bacteria isolated. Charges/Coding Procedures Integumentary 150xxx-152xx: 10058 Skin sub graft trnk/arm/leg Add On Codes: 99848 Skin sub graft t/a/l add-on (x2) Debridement Note Debridement Note Wound debrided: #5 left medial leg Laterality: Left Wound Grade/Stage: 3 Type of Debridement: Excisional debridement Anesthesia Used: 5% Lidocaine Gel Depth: Down to and including healthy tissue, in the subcutaneous layer and to muscle Percentage of wound debrided: 100 Instrument Used: 7mm curette Tissue Removed: subcutaneous tissue and muscle. Severity: Fat Layer Exposed (muscle is exposed) Amount of bleeding with debridement: Mild Bleeding Controlled with: Pressure and Compression and gauze Patient tolerated procedure: Patient tolerated procedure well Post-Debridement Measurements and Additional Note: Post-Debridement Measurements/Treatment WC - Nurse 1 - General Ulcer Assessment Start: 08/11/23 13:04 Freq: Status: Active Protocol: BOBO Activity Type Activity Date Activity User E-sign Co-sign Detail Recorded Client Recorded Date Recorded By Document 08/11/23 13:06 DL Desktop 08/11/23 13:11 DL Document 08/17/23 14:32 KW Desktop 08/17/23 14:47 KW Document 08/23/23 11:12 KW Desktop 08/23/23 11:26 KW 08/11/23 08/17/23 08/23/23 13:06 14:32 11:12 WC - Today's Visit Information Type of service Follow-up Visit Follow-up Visit Follow-up Visit (Physician/TOUCH UP CARVER (Physician/TOUCH UP CARVER (Physician/TOUCH UP CARVER ) ) ) Arrival Mode Ambulatory Ambulatory Ambulatory Transfer Assistance Transfer Board Accompanied by mother Patient Identification Verified (Name & Yes Yes Yes ) Patient Requires Transmission-Based No Precautions Height and Weight Body Mass Index (BMI) 48.9 48.9 48.9 BMI Classification Obese Obese Obese Vital Signs Temperature (97.8 F-99.1 F) 97.8 F 96.5 F L Temperature Source Temporal Temporal Pulse Rate (60-100) 93 104 H 105 H Pulse Location Monitor Monitor Monitor Respiratory Rate (12-18) 20 H 18 18 Respiratory rate source Observation Observation Observation Oxygen Delivery Method Room Air Room Air Blood Pressure (90/60-120/80) 146/96 H 141/80 H 128/85 H Blood Pressure Mean (mm Hg) 112 100 99 Source Monitor Monitor Monitor Position Semi-Fowlers Sitting Blood Pressure Location Left Forearm Left Arm History Since Last Visit- (Skip if this is Patient's initial visit) Have you changed medications since your No No No last visit? Any new allergies or adverse reactions No No No Had a fall/change in ADL's that may No No No increase risk of falls Signs or symptoms of abuse and/or No No No neglect since last visit Have you been in the hospital since your No No No last visit? Has dressing in place as prescribed Yes Yes Yes Has compression in place as prescribed N/A Yes Yes Has offloadiing in place as prescribed Yes No No Experienced any changes in pain level or No No No management Left Footwear Regular Shoe Regular Shoe Right Footwear Regular Shoe Regular Shoe Pain Scale: 0-10 Numeric Is Patient Pain Free? Yes Yes Yes WC - Nurse 1 - General Ulcer Measurement Start: 08/11/23 13:04 Freq: Status: Active Protocol: Activity Type Activity Date Activity User E-sign Co-sign Detail Recorded Client Recorded Date Recorded By Document 08/11/23 13:06 DL Desktop 08/11/23 13:11 DL Document 08/17/23 14:32 KW Desktop 08/17/23 14:47 KW Document 08/23/23 11:12 KW Desktop 08/23/23 11:26 KW 08/11/23 08/17/23 08/23/23 13:06 14:32 11:12 Wound Center Nurse 1 #7 L LOWER LEG CLUSTER -Combined with other wound No -Current Size (cm) - Length 5 5 -Current Size (cm) - Width 5.3 5.5 -Current Size (cm) - Depth 0.1 0.1 -Total Square Cm 26.5 27.5 -Date of Last Picture (Recall this 08/23/23 field) -Photo Taken Yes -Tunneling No -Undermining/Tunneling No -Circular Undermining No -Exudate Amt Medium Medium -Exudate Type Serosanguineous Serosanguineous -Wound Margin Distinct, Distinct, Outline Outline Attached Attached -Granulation Amt Medium (34-66%) Small (1-33%) -Granulation Quality Red Red -Slough/Fibrin No -Necrosis Amt Small (1-33%) Medium (34-66%) -Necrotic Tissue Type Adherent Slough Adherent Slough -Texture (Brenna-wound Skin Appearance) Assessed Assessed, Scarring -Moisture (Brenna-wound Skin Appearance) Assessed Assessed -Color (Brenna-wound Skin Appearance) Assessed Assessed -Temperature (Brenna-wound Skin No Abnormality No Abnormality Appearance) (Pt Warm) (Pt Warm) -Tenderness on Palpation (Brenna-wound No Skin Appearance) -Ulcer Cleansing Soap and Water Soap and Water -Foul Odor after Cleansing No No -Anesthetic Used 4% Lidocaine 4% Lidocaine Solution Solution #5 L medial LE -Combined with other wound No -Current Size (cm) - Length 7.6 8 7.4 -Current Size (cm) - Width 9.6 9.1 8.5 -Current Size (cm) - Depth 1 0.1 0.1 -Total Square Cm 72.96 72.8 62.90 -Date of Last Picture (Recall this 08/23/23 field) -Photo Taken Yes Yes -Epithelialization Small 1-33% -Tunneling No -Undermining/Tunneling No -Circular Undermining No -Exudate Amt Medium Small Medium -Exudate Type Serosanguineous Serosanguineous Serosanguineous -Wound Margin Distinct, Distinct, Distinct, Outline Outline Outline Attached Attached Attached -Granulation Amt Large (67-100%) Large (67-100%) Large (67-100%) -Granulation Quality Red Red Pale,Red -Slough/Fibrin No -Necrosis Amt Small (1-33%) Small (1-33%) None Present (0 %) -Necrotic Tissue Type Adherent Slough Adherent Slough -Structure Exposed N/A -Texture (Brenna-wound Skin Appearance) Scarring,Rash Assessed Assessed, Scarring -Moisture (Brenna-wound Skin Appearance) Weeping Assessed Assessed -Color (Brenna-wound Skin Appearance) No Abnormality Assessed, Assessed Erythema -Temperature (Brenna-wound Skin No Abnormality No Abnormality No Abnormality Appearance) (Pt Warm) (Pt Warm) (Pt Warm) -Tenderness on Palpation (Brenna-wound No Skin Appearance) -Ulcer Cleansing Soap and Water Soap and Water Soap and Water -Foul Odor after Cleansing No No No -Anesthetic Used 4% Lidocaine 4% Lidocaine 4% Lidocaine Solution Solution Solution Right Calf (cm) 46.5 Right Ankle (cm) 27.5 Left Calf (cm) 47.7 46.3 Left Ankle (cm) 28 27.3 WC - Nurse 2 - General Ulcer CM Notes Start: 08/11/23 13:04 Freq: Status: Active Protocol: Activity Type Activity Date Activity User E-sign Co-sign Detail Recorded Client Recorded Date Recorded By Document 08/11/23 13:47 MW Desktop 08/11/23 13:53 MW Document 08/17/23 15:44 PL [id number] 08/17/23 15:46 PL Document 08/23/23 12:03 JF Laptop 08/23/23 12:08 JF 08/11/23 08/17/23 08/23/23 13:47 15:44 12:03 Wound Center Nurse 2 #7 L LOWER LEG CLUSTER -Time 14:55 -Correct Patient Yes No -Correct Side, Site, Position Yes No -Correct Procedure Yes No -Procedure Performed Yes No -Type of Procedure Debridement -Clinical Debridement Muscle / Fascia -Tissue Removed Subcutaneous, Muscle -Post Debridement (cm) - Length 8.0 -Post Debridement (cm) - Width 9.7 -Post Debridement (cm) - Depth 0.3 -Total Square (Post) (cm) 77.60 -Area of Debridement (cm) - Length 8.0 -Area of Debridement (cm) - Width 9.7 -Total Square (Area) (cm) 77.60 -Tunneling No -Undermining/Tunneling No -Circular Undermining No -Wound/Ulcer Outcome Not Healed Not Healed -Ulcer Cleansing Rinsed/ Irrigated with Saline -Foul Odor after Cleansing No -Bioengineered Tissue No -Bleeding Controlled with Pressure -Treatment Response Procedure Tolerated Well -Debridement - Muscle / Fascia, 1st Yes 20sq cm -Debridement, Muscle/Fascia, ea addt'l 3 20sq cm or part thereof #5 L medial LE -Time 13:47 12:03 -Correct Patient Yes Yes -Correct Side, Site, Position Yes Yes -Correct Procedure Yes Yes -Procedure Performed Yes Yes -Type of Procedure Debridement Debridement -Clinical Debridement Muscle / Fascia Muscle / Fascia -Tissue Removed Muscle,Fascia Muscle,Fascia -Post Debridement (cm) - Length 8.0 7.5 -Post Debridement (cm) - Width 9.7 8.5 -Post Debridement (cm) - Depth 0.4 0.1 -Total Square (Post) (cm) 77.60 63.75 -Area of Debridement (cm) - Length 8.0 7.5 -Area of Debridement (cm) - Width 9.7 8.5 -Total Square (Area) (cm) 77.60 63.75 -Tunneling No No -Undermining/Tunneling No No -Circular Undermining No No -Wound/Ulcer Outcome Not Healed Not Healed -Ulcer Cleansing Rinsed/ Rinsed/ Irrigated with Irrigated with Saline Saline -Foul Odor after Cleansing No No -Bioengineered Tissue No Yes -Type of Bioengineered Tissue Theraskin -Expiration Date 07/04/27 -Product Lot Number [id number] -Percent Used 100 -Lot number of Saline Used [id number] -Bleeding Controlled with Pressure Pressure -Other Type of Bleeding Control Theraskin ID [id number] exp. 09/13/2027 -Treatment Response Procedure Procedure Tolerated Well Tolerated Well -Offloading No No -Debridement - Muscle / Fascia, 1st Yes No 20sq cm -Debridement, Muscle/Fascia, ea addt'l 3 20sq cm or part thereof -Apply Skin Sub - 1st 25 sq cm - Legs 1 -Apply Skin Sub - each addt'l 25 sq cm 2 - Legs -Theraskin (per sq cm) 65 Pain Scale: 0-10 Numeric Is Patient Pain Free? Yes Yes Yes WC - Nurse 3 - General Ulcer D/C NN Start: 08/11/23 13:04 Freq: Status: Active Protocol: Activity Type Activity Date Activity User E-sign Co-sign Detail Recorded Client Recorded Date Recorded By Document 08/11/23 14:00 DL Desktop 08/11/23 14:02 DL Document 08/17/23 15:13 KW Desktop 08/17/23 15:15 KW Document 08/23/23 12:14 KW Desktop 08/23/23 12:16 KW 08/11/23 08/17/23 08/23/23 14:00 15:13 12:14 Wound Care Center Nurse 3 #7 L LOWER LEG CLUSTER -Ulcer Cleansing Rinsed/ Irrigated with Saline -Primary Dressing Applied NonAdherent Contact Layer -Primary Dressing Covered/Secured with Dry Gauze & Dry Gauze & Roll Gauze, Roll Gauze, Secured with Secured with Tape Tape #5 L medial LE -Ulcer Cleansing Rinsed/ Irrigated with Saline -Foul Odor after Cleansing No -Negative Pressure Wound Therapy Continue Continue -Setting (mmHg) 150 150 -Negative Pressure is Continuous Continuous -Primary Dressing Applied NonAdherent Contact Layer -Primary Dressing Covered/Secured with Dry Gauze & Roll Gauze, Secured with Tape -NPWT Application Charge NPWT & NPWT & Debridement (nc Debridement (nc ) ) Left -Compression Wrap Jonas Wrap Jonas Wrap -Tubular Bandage Single Layer Single Layer Single Layer -Size of Tubigrip Used Size E Size E Size E -Size E ($) 1 1 1 Pain Scale: 0-10 Numeric Is Patient Pain Free? Yes Yes Yes WC - Visit Discharge Discharge Condition Stable Stable Stable Ambulatory Status Ambulatory Ambulatory Ambulatory Transportation Private Auto Private Auto Private Auto Medication Reconcilliation completed & No No provided to patient/care provider Clinical Summary of Care Provided Yes Yes Facility Type Applications Analyst Care Facility Orders Sent Yes Assessment/Plan Assessment/Plan (1) Ulcer of left lower extremity with muscle involvement without evidence of necrosis: CODE(S): L97.925 - Non-pressure chronic ulcer of unspecified part of left lower leg with muscle involvement without evidence of necrosis (2) MRSA (methicillin resistant Staphylococcus aureus) infection: CODE(S): A49.02 - Methicillin resistant Staphylococcus aureus infection, unspecified site (3) History of incision and drainage: CODE(S): Z98.890 - Other specified postprocedural states (4) History of necrotizing fasciitis: CODE(S): Z87.39 - Personal history of other diseases of the musculoskeletal system and connective tissue (5) Borderline personality disorder: CODE(S): F60.3 - Borderline personality disorder PLAN: Plan Wound care - Wound VAC was discontinued. Theraskin #1 placed today. 100% of the products were used. Theraskin was secured with Dermabond. Skin prep was used surrounding the ulcer. Wound veil was placed over the product and secured with Steri-strips. Ulcer covered with ABD. She was instructed not to get her ulcer wet. She may change the outer dressing as needed but was instructed to not di sturb anything below the wound veil. Compression - Single tubi-openstack developer with JONAS wrap on left leg for compression. Wound Culture obtained 12/29/22 positive for Enterococcus faecalis, Corynebacterium amycolatum, and Staphylococcus epidermidis. Treated with Augmentin and Doxycycline. Wound culture obtained 01/28/23 which was positive for Enterococcus faecalis and Corynebacterium striatum. She completed Augmentin. A wound culture was obtained 04/05/23 which was positive for Staphylococcus epidermidis and Staphylococcus haemolyticus. She was treated with IV Vancomycin while she was hospitalized. Prealbumin 13.9 from 04/09/23. Encourage increase protein intake including supplemental protein shakes for her increased metabolic demands from the wounds. Wound culture from 07/05/23 was positive for Proteus mirabilis and MRSA. She was treated with Augmentin and Doxycycline. A wound culture was obtained on 06/17/23, which was positive for Proteus mirabilis, Enterococcus faecalis, and Corynebacterium striatum. She was started on Augmentin, which she was instructed to continue. Follow up in one week.
[2023-08-30 10:31] VITALS: BP 125/84; PULSE 96; RESP 20; TEMP 36.9; BMI 48.9
--- NOTE | 2023-08-30 13:23 | PCM.WC.PN ---
History of Present Illness Date of Service: 08/30/23 Chief Complaint: non-healing ulcer left medial leg History of Wound: Patient is a 22 year old female who presents to the wound healing center for evaluation and treatment of a nonhealing ulcer left medial leg. Patient is a poor historian. Reviewed notes from [facility], she had been admitted to [place] around 11/27/22 for cellulitis and worsening infection of her left lower leg. She ended having an I&D of her left medial leg, left lateral leg and left lateral thigh. She was diagnosed with necrotizing fasciitis. Her wound cultures were positive for Enterococcus and steno. Mycoplasma IGG and IgM (+). She was sent to [facility] on 2 weeks dapto, arthur, clinda, levaquin, and micafungin. Changed Dap to to Vanc. On 12/12 stopped vanc/levaquin/arthur and started IV fluc due to diagnosis of candidemia. She was discharged home from [facility] around the second week of December. She has a history of significant for depression, personality disorder, self harm, anxiety, asthma, recurrent cellulitis and ADHD and most recently Afib and tachycardia. She states that she did not cause these wounds and did not do anything to them to make them worse. She has a history of being accused of tampering with wounds. Surgery 04/07/23 - Surgical preparation left medial leg with incision and drainage and excisional debridement nonhealing infected MRSA ulcer, (126 cm2). Operative culture were negative but she was on Vancomycin and Fluconazole for positive cultures from 04/05/23 which were positive for MRSE and Staphylococcus haemolyticus. Wound culture obtained on 12/29/22 which was positive for Enterococcus faecalis, Corynebacterium amycolatum, and MRSE. She was treated with Augmentin and Doxycycline. Wound culture obtained 01/28/23 which was positive for Enterococcus faecalis and Corynebacterium striatum. She was started on Augmentin. Wound culture obtained 07/07/23 which was positive for Proteus mirabilis and MRSA. She was treated with Doxycycline and Augmentin. Wound culture obtained 08/18/23 which was positive for Proteus mirabilis, Enterococcus faecalis and Corynebacterium striatum. She was started on Augmentin to cover the Proteus and Enterococcus. The Corynebacterium is considered a skin contaminant. Left leg ultrasound obtained on 01/06/23 which showed There is no evidence of left lower extremity deep vein thrombosis. She was in [facility] for a week at the end of February for subcutaneous air around her wound. She states she cultured positive for MRSA and they had her on IV antibiotics. They used a wound VAC while she was in the hospital. She is now on Doxycycline. Today she denies fever, chills, nausea or vomiting. Progress of Wound: Left leg ulcer is slightly smaller this week. It has a better color after her first application of Theraskin last week. She has a cluster of superficial areas distal to the ulcer that were blisters from the wound VAC drape, that are healing well with the B&W cream she is placing on the area. She has been tolerating the Augmentin that she was started on for her positive cultures. Objective Data Objective Data Vital Signs: Vital Signs Temp Pulse Resp BP O2 Del Method 98.5 F 96 20 H 125/84 H Room Air 08/30/23 10:31 08/30/23 10:31 08/30/23 10:31 08/30/23 10:31 08/30/23 10:31 Oxygen Delivery Method Room Air Weight: 276 lb Body Mass Index (BMI) 48.9 Lab / Micro Data Micro: Microbiology 08/18/23 10:00 Wound - Leg, Left Gram Stain - Final 08/18/23 10:00 Wound - Leg, Left Wound Culture - Final Proteus mirabilis Enterococcus faecalis Corynebacterium striatum 08/18/23 10:00 Wound - Leg, Left Anaerobic Culture - Final No anaerobic bacteria isolated. Charges/Coding Procedures Integumentary 150xxx-152xx: [id number] Skin sub graft trnk/arm/leg Add On Codes: 46489 Skin sub graft t/a/l add-on (x2) Debridement Note Debridement Note Wound debrided: #5 left medial leg Laterality: Left Wound Grade/Stage: 3 Type of Debridement: Excisional debridement Anesthesia Used: 5% Lidocaine Gel Depth: Down to and including healthy tissue, in the subcutaneous layer and to muscle Percentage of wound debrided: 100 Instrument Used: 7mm curette Tissue Removed: subcutaneous tissue and muscle. Severity: Fat Layer Exposed (muscle is exposed) Amount of bleeding with debridement: Mild Bleeding Controlled with: Pressure and Compression and gauze Patient tolerated procedure: Patient tolerated procedure well Post-Debridement Measurements and Additional Note: Post-Debridement Measurements/Treatment WC - Nurse 1 - General Ulcer Assessment Start: 08/11/23 13:04 Freq: Status: Active Protocol: BOBO Activity Type Activity Date Activity User E-sign Co-sign Detail Recorded Client Recorded Date Recorded By Document 08/11/23 13:06 DL Desktop 08/11/23 13:11 DL Document 08/17/23 14:32 KW Desktop 08/17/23 14:47 KW Document 08/23/23 11:12 KW Desktop 08/23/23 11:26 KW Document 08/30/23 10:31 BMF Desktop 08/30/23 10:41 BMF 08/11/23 08/17/23 08/23/23 13:06 14:32 11:12 WC - Today's Visit Information Type of service Follow-up Visit Follow-up Visit Follow-up Visit (Physician/VARNISH FINISHER (Physician/VARNISH FINISHER (Physician/VARNISH FINISHER ) ) ) Arrival Mode Ambulatory Ambulatory Ambulatory Transfer Assistance Transfer Board Accompanied by mother Patient Identification Verified (Name & Yes Yes Yes ) Patient Requires Transmission-Based No Precautions Height and Weight Body Mass Index (BMI) 48.9 48.9 48.9 BMI Classification Obese Obese Obese Vital Signs Temperature (97.8 F-99.1 F) 97.8 F 96.5 F L Temperature Source Temporal Temporal Pulse Rate (60-100) 93 104 H 105 H Pulse Location Monitor Monitor Monitor Respiratory Rate (12-18) 20 H 18 18 Respiratory rate source Observation Observation Observation Oxygen Delivery Method Room Air Room Air Blood Pressure (90/60-120/80) 146/96 H 141/80 H 128/85 H Blood Pressure Mean (mm Hg) 112 100 99 Source Monitor Monitor Monitor Position Semi-Fowlers Sitting Blood Pressure Location Left Forearm Left Arm History Since Last Visit- (Skip if this is Patient's initial visit) Have you changed medications since your No No No last visit? Any new allergies or adverse reactions No No No Had a fall/change in ADL's that may No No No increase risk of falls Signs or symptoms of abuse and/or No No No neglect since last visit Have you been in the hospital since your No No No last visit? Has dressing in place as prescribed Yes Yes Yes Has compression in place as prescribed N/A Yes Yes Has offloadiing in place as prescribed Yes No No Experienced any changes in pain level or No No No management Left Footwear Regular Shoe Regular Shoe Right Footwear Regular Shoe Regular Shoe Pain Scale: 0-10 Numeric Is Patient Pain Free? Yes Yes Yes 08/30/23 10:31 WC - Today's Visit Information Type of service Follow-up Visit (Physician/VARNISH FINISHER ) Arrival Mode Ambulatory Transfer Assistance None Accompanied by Patient Identification Verified (Name & Yes ) Patient Requires Transmission-Based No Precautions Height and Weight Body Mass Index (BMI) 48.9 BMI Classification Obese Vital Signs Temperature (97.8 F-99.1 F) 98.5 F Temperature Source Temporal Pulse Rate (60-100) 96 Pulse Location Monitor Respiratory Rate (12-18) 20 H Respiratory rate source Observation Oxygen Delivery Method Room Air Blood Pressure (90/60-120/80) 125/84 H Blood Pressure Mean (mm Hg) 97 Source Monitor Position Sitting Blood Pressure Location Left Forearm History Since Last Visit- (Skip if this is Patient's initial visit) Have you changed medications since your No last visit? Any new allergies or adverse reactions No Had a fall/change in ADL's that may No increase risk of falls Signs or symptoms of abuse and/or No neglect since last visit Have you been in the hospital since your No last visit? Has dressing in place as prescribed Yes Has compression in place as prescribed Yes Has offloadiing in place as prescribed N/A Experienced any changes in pain level or No management Left Footwear Regular Shoe Right Footwear Regular Shoe Pain Scale: 0-10 Numeric Is Patient Pain Free? Yes - Nurse 1 - General Ulcer Measurement Start: 08/11/23 13:04 Freq: Status: Active Protocol: Activity Type Activity Date Activity User E-sign Co-sign Detail Recorded Client Recorded Date Recorded By Document 08/11/23 13:06 DL Desktop 08/11/23 13:11 DL Document 08/17/23 14:32 KW Desktop 08/17/23 14:47 KW Document 08/23/23 11:12 KW Desktop 08/23/23 11:26 KW Document 08/30/23 10:31 BMF Desktop 08/30/23 10:41 BMF 08/11/23 08/17/23 08/23/23 13:06 14:32 11:12 Wound Center Nurse 1 #7 L LOWER LEG CLUSTER -Combined with other wound No -Current Size (cm) - Length 5 5 -Current Size (cm) - Width 5.3 5.5 -Current Size (cm) - Depth 0.1 0.1 -Total Square Cm 26.5 27.5 -Date of Last Picture (Recall this 08/23/23 field) -Photo Taken Yes -Epithelialization -Tunneling No -Undermining/Tunneling No -Circular Undermining No -Exudate Amt Medium Medium -Exudate Type Serosanguineous Serosanguineous -Wound Margin Distinct, Distinct, Outline Outline Attached Attached -Granulation Amt Medium (34-66%) Small (1-33%) -Granulation Quality Red Red -Slough/Fibrin No -Necrosis Amt Small (1-33%) Medium (34-66%) -Necrotic Tissue Type Adherent Slough Adherent Slough -Structure Exposed -Texture (Brenna-wound Skin Appearance) Assessed Assessed, Scarring -Moisture (Brenna-wound Skin Appearance) Assessed Assessed -Color (Brenna-wound Skin Appearance) Assessed Assessed -Temperature (Brenna-wound Skin No Abnormality No Abnormality Appearance) (Pt Warm) (Pt Warm) -Tenderness on Palpation (Brenna-wound No Skin Appearance) -Ulcer Cleansing Soap and Water Soap and Water -Foul Odor after Cleansing No No -Anesthetic Used 4% Lidocaine 4% Lidocaine Solution Solution #5 L medial LE -Combined with other wound No -Current Size (cm) - Length 7.6 8 7.4 -Current Size (cm) - Width 9.6 9.1 8.5 -Current Size (cm) - Depth 1 0.1 0.1 -Total Square Cm 72.96 72.8 62.90 -Date of Last Picture (Recall this 08/23/23 field) -Photo Taken Yes Yes -Epithelialization Small 1-33% -Tunneling No -Undermining/Tunneling No -Circular Undermining No -Exudate Amt Medium Small Medium -Exudate Type Serosanguineous Serosanguineous Serosanguineous -Wound Margin Distinct, Distinct, Distinct, Outline Outline Outline Attached Attached Attached -Granulation Amt Large (67-100%) Large (67-100%) Large (67-100%) -Granulation Quality Red Red Pale,Red -Slough/Fibrin No -Necrosis Amt Small (1-33%) Small (1-33%) None Present (0 %) -Necrotic Tissue Type Adherent Slough Adherent Slough -Structure Exposed N/A -Texture (Brenna-wound Skin Appearance) Scarring,Rash Assessed Assessed, Scarring -Moisture (Brenna-wound Skin Appearance) Weeping Assessed Assessed -Color (Brenna-wound Skin Appearance) No Abnormality Assessed, Assessed Erythema -Temperature (Brenna-wound Skin No Abnormality No Abnormality No Abnormality Appearance) (Pt Warm) (Pt Warm) (Pt Warm) -Tenderness on Palpation (Brenna-wound No Skin Appearance) -Ulcer Cleansing Soap and Water Soap and Water Soap and Water -Foul Odor after Cleansing No No No -Anesthetic Used 4% Lidocaine 4% Lidocaine 4% Lidocaine Solution Solution Solution Lower Limb Edema Present Right Calf (cm) 46.5 Right Ankle (cm) 27.5 Left Calf (cm) 47.7 46.3 Left Ankle (cm) 28 27.3 08/30/23 10:31 Wound Center Nurse 1 #7 L LOWER LEG CLUSTER -Combined with other wound No -Current Size (cm) - Length 3.9 -Current Size (cm) - Width 3.8 -Current Size (cm) - Depth 0.1 -Total Square Cm 14.82 -Date of Last Picture (Recall this field) -Photo Taken Yes -Epithelialization Small 1-33% -Tunneling No -Undermining/Tunneling No -Circular Undermining No -Exudate Amt Small -Exudate Type Serosanguineous -Wound Margin Flat & Intact -Granulation Amt Large (67-100%) -Granulation Quality Red -Slough/Fibrin Yes -Necrosis Amt Small (1-33%) -Necrotic Tissue Type Adherent Slough -Structure Exposed N/A -Texture (Brenna-wound Skin Appearance) Assessed, Localized Edema -Moisture (Brenna-wound Skin Appearance) Dry/Scaly -Color (Brenna-wound Skin Appearance) Assessed -Temperature (Brenna-wound Skin No Abnormality Appearance) (Pt Warm) -Tenderness on Palpation (Brenna-wound No Skin Appearance) -Ulcer Cleansing Wound Cleanser -Foul Odor after Cleansing No -Anesthetic Used 4% Lidocaine Solution #5 L medial LE -Combined with other wound No -Current Size (cm) - Length 7.0 -Current Size (cm) - Width 8.9 -Current Size (cm) - Depth 0.1 -Total Square Cm 62.30 -Date of Last Picture (Recall this field) -Photo Taken Yes -Epithelialization Medium 34-66% -Tunneling No -Undermining/Tunneling No -Circular Undermining No -Exudate Amt Medium -Exudate Type Serosanguineous -Wound Margin Flat & Intact -Granulation Amt Large (67-100%) -Granulation Quality [place] -Slough/Fibrin Yes -Necrosis Amt Small (1-33%) -Necrotic Tissue Type Adherent Slough -Structure Exposed N/A -Texture (Brenna-wound Skin Appearance) Assessed, Localized Edema -Moisture (Brenna-wound Skin Appearance) Assessed,Dry/ Scaly -Color (Brenna-wound Skin Appearance) Assessed -Temperature (Brenna-wound Skin No Abnormality Appearance) (Pt Warm) -Tenderness on Palpation (Brenna-wound No Skin Appearance) -Ulcer Cleansing Wound Cleanser -Foul Odor after Cleansing No -Anesthetic Used 4% Lidocaine Solution Lower Limb Edema Present Yes Right Calf (cm) Right Ankle (cm) Left Calf (cm) 45.3 Left Ankle (cm) 27.2 WC - Nurse 2 - General Ulcer CM Notes Start: 08/11/23 13:04 Freq: Status: Active Protocol: Activity Type Activity Date Activity User E-sign Co-sign Detail Recorded Client Recorded Date Recorded By Document 08/11/23 13:47 MW Desktop 08/11/23 13:53 MW Document 08/17/23 15:44 PL [id number] 08/17/23 15:46 PL Document 08/23/23 12:03 JF Laptop 08/23/23 12:08 JF Document 08/30/23 11:02 JF Laptop 08/30/23 11:06 Edit Result 08/30/23 11:02 JF (1) Laptop 08/30/23 11:07 JF (1) #5 L medial LE - Other Type of Bleeding Control => theraskin #2 => [id number] exp:6 => - Dermabond => 1 08/11/23 08/17/23 08/23/23 13:47 15:44 12:03 Wound Center Nurse 2 #7 L LOWER LEG CLUSTER -Time 14:55 -Correct Patient Yes No -Correct Side, Site, Position Yes No -Correct Procedure Yes No -Procedure Performed Yes No -Type of Procedure Debridement -Clinical Debridement Muscle / Fascia -Tissue Removed Subcutaneous, Muscle -Post Debridement (cm) - Length 8.0 -Post Debridement (cm) - Width 9.7 -Post Debridement (cm) - Depth 0.3 -Total Square (Post) (cm) 77.60 -Area of Debridement (cm) - Length 8.0 -Area of Debridement (cm) - Width 9.7 -Total Square (Area) (cm) 77.60 -Tunneling No -Undermining/Tunneling No -Circular Undermining No -Wound/Ulcer Outcome Not Healed Not Healed -Ulcer Cleansing Rinsed/ Irrigated with Saline -Foul Odor after Cleansing No -Bioengineered Tissue No -Bleeding Controlled with Pressure -Treatment Response Procedure Tolerated Well -Debridement - Muscle / Fascia, 1st Yes 20sq cm -Debridement, Muscle/Fascia, ea addt'l 3 20sq cm or part thereof #5 L medial LE -Time 13:47 12:03 -Correct Patient Yes Yes -Correct Side, Site, Position Yes Yes -Correct Procedure Yes Yes -Procedure Performed Yes Yes -Type of Procedure Debridement Debridement -Clinical Debridement Muscle / Fascia Muscle / Fascia -Tissue Removed Muscle,Fascia Muscle,Fascia -Post Debridement (cm) - Length 8.0 7.5 -Post Debridement (cm) - Width 9.7 8.5 -Post Debridement (cm) - Depth 0.4 0.1 -Total Square (Post) (cm) 77.60 63.75 -Area of Debridement (cm) - Length 8.0 7.5 -Area of Debridement (cm) - Width 9.7 8.5 -Total Square (Area) (cm) 77.60 63.75 -Tunneling No No -Undermining/Tunneling No No -Circular Undermining No No -Wound/Ulcer Outcome Not Healed Not Healed -Ulcer Cleansing Rinsed/ Rinsed/ Irrigated with Irrigated with Saline Saline -Foul Odor after Cleansing No No -Bioengineered Tissue No Yes -Type of Bioengineered Tissue -Type of Bioengineered Tissue DocsInk -Expiration Date 07/04/27 -Product Lot Number [id number] -Percent Used 100 -Lot number of Saline Used [id number] -Bleeding Controlled with Pressure Pressure -Other Type of Bleeding Control Theraskin ID [id number] exp. 09/13/2027 -Treatment Response Procedure Procedure Tolerated Well Tolerated Well -Offloading No No -Debridement - Subq, 1st 20sq cm -Debridement - Muscle / Fascia, 1st Yes No 20sq cm -Debridement, Muscle/Fascia, ea addt'l 3 20sq cm or part thereof -Apply Skin Sub - 1st 25 sq cm - Legs 1 -Apply Skin Sub - each addt'l 25 sq cm 2 - Legs -Dermabond -Theraskin (per sq cm) 65 -Theraskin - 26TS (26 SQ CM) (per sq cm) -Theraskin - 102TSL (39 SQ CM) (per sq cm) Pain Scale: 0-10 Numeric Is Patient Pain Free? Yes Yes Yes 08/30/23 11:02 Wound Center Nurse 2 #7 L LOWER LEG CLUSTER -Time -Correct Patient No -Correct Side, Site, Position No -Correct Procedure No -Procedure Performed No -Type of Procedure -Clinical Debridement -Tissue Removed -Post Debridement (cm) - Length -Post Debridement (cm) - Width -Post Debridement (cm) - Depth -Total Square (Post) (cm) -Area of Debridement (cm) - Length -Area of Debridement (cm) - Width -Total Square (Area) (cm) -Tunneling -Undermining/Tunneling -Circular Undermining -Wound/Ulcer Outcome Not Healed -Ulcer Cleansing Rinsed/ Irrigated with Saline -Foul Odor after Cleansing No -Bioengineered Tissue No -Bleeding Controlled with -Treatment Response -Debridement - Muscle / Fascia, 1st 20sq cm -Debridement, Muscle/Fascia, ea addt'l 20sq cm or part thereof #5 L medial LE -Time 11:03 -Correct Patient Yes -Correct Side, Site, Position Yes -Correct Procedure Yes -Procedure Performed Yes -Type of Procedure Debridement -Clinical Debridement Subcutaneous -Tissue Removed Subcutaneous -Post Debridement (cm) - Length 7.5 -Post Debridement (cm) - Width 8.7 -Post Debridement (cm) - Depth 0.2 -Total Square (Post) (cm) 65.25 -Area of Debridement (cm) - Length 7.5 -Area of Debridement (cm) - Width 8.7 -Total Square (Area) (cm) 65.25 -Tunneling No -Undermining/Tunneling No -Circular Undermining No -Wound/Ulcer Outcome Not Healed -Ulcer Cleansing Rinsed/ Irrigated with Saline -Foul Odor after Cleansing No -Bioengineered Tissue Yes -Type of Bioengineered Tissue Theraskin -Type of Bioengineered Tissue -Expiration Date 11/30/26 -Product Lot Number [id number] -Percent Used 100 -Lot number of Saline Used [id number] -Bleeding Controlled with Pressure -Other Type of Bleeding Control theraskin #2 [id number] exp:01/27/2027 -Treatment Response Procedure Tolerated Well -Offloading No -Debridement - Subq, 1st 20sq cm No -Debridement - Muscle / Fascia, 1st 20sq cm -Debridement, Muscle/Fascia, ea addt'l 20sq cm or part thereof -Apply Skin Sub - 1st 25 sq cm - Legs 1 -Apply Skin Sub - each addt'l 25 sq cm 2 - Legs -Dermabond 1 -Theraskin (per sq cm) -Theraskin - 26TS (26 SQ CM) (per sq 1 cm) -Theraskin - 102TSL (39 SQ CM) (per sq 1 cm) Pain Scale: 0-10 Numeric Is Patient Pain Free? Yes WC - Nurse 3 - General Ulcer D/C NN Start: 08/11/23 13:04 Freq: Status: Active Protocol: Activity Type Activity Date Activity User E-sign Co-sign Detail Recorded Client Recorded Date Recorded By Document 08/11/23 14:00 DL Desktop 08/11/23 14:02 DL Document 08/17/23 15:13 KW Desktop 08/17/23 15:15 KW Document 08/23/23 12:14 KW Desktop 08/23/23 12:16 KW Document 08/30/23 11:21 [facility] Desktop 08/30/23 11:22 [facility] 08/11/23 08/17/23 08/23/23 14:00 15:13 12:14 Wound Care Center Nurse 3 #7 L LOWER LEG CLUSTER -Ulcer Cleansing Rinsed/ Irrigated with Saline -Primary Dressing Applied NonAdherent Contact Layer -Other Dressing -Primary Dressing Covered/Secured with Dry Gauze & Dry Gauze & Roll Gauze, Roll Gauze, Secured with Secured with Tape Tape #5 L medial LE -Ulcer Cleansing Rinsed/ Irrigated with Saline -Foul Odor after Cleansing No -Negative Pressure Wound Therapy Continue Continue -Setting (mmHg) 150 150 -Negative Pressure is Continuous Continuous -Primary Dressing Applied NonAdherent Contact Layer -Other Dressing -Primary Dressing Covered/Secured with Dry Gauze & Roll Gauze, Secured with Tape -NPWT Application Charge NPWT & NPWT & Debridement (nc Debridement (nc ) ) Left -Compression Wrap Jonas Wrap Jonas Wrap -Tubular Bandage Single Layer Single Layer Single Layer -Size of Tubigrip Used Size E Size E Size E -Size E ($) 1 1 1 -Size F ($) -Other Treatment Response Pain Scale: 0-10 Numeric Is Patient Pain Free? Yes Yes Yes WC - Visit Discharge Discharge Condition Stable Stable Stable Ambulatory Status Ambulatory Ambulatory Ambulatory Transportation Private Auto Private Auto Private Auto Medication Reconcilliation completed & No No provided to patient/care provider Clinical Summary of Care Provided Yes Yes Facility Type [facility] Facility Orders Sent Yes 08/30/23 11:21 Wound Care Center Nurse 3 #7 L LOWER LEG CLUSTER -Ulcer Cleansing -Primary Dressing Applied NonAdherent Contact Layer -Other Dressing ABD -Primary Dressing Covered/Secured with Dry Gauze & Roll Gauze, Secured with Tape #5 L medial LE -Ulcer Cleansing -Foul Odor after Cleansing -Negative Pressure Wound Therapy -Setting (mmHg) -Negative Pressure is -Primary Dressing Applied -Other Dressing THERASKIN; ABD -Primary Dressing Covered/Secured with Dry Gauze & Roll Gauze, Secured with Tape -NPWT Application Charge Left -Compression Wrap Jonas Wrap -Tubular Bandage Single Layer -Size of Tubigrip Used Size F -Size E ($) -Size F ($) 2 -Other EXTRA SENT Treatment Response Procedure Tolerated Well Pain Scale: 0-10 Numeric Is Patient Pain Free? Yes WC - Visit Discharge Discharge Condition Stable Ambulatory Status Ambulatory Transportation Private Auto Medication Reconcilliation completed & provided to patient/care provider Clinical Summary of Care Provided Facility Type [facility] Facility Orders Sent Assessment/Plan Assessment/Plan (1) Ulcer of left lower extremity with muscle involvement without evidence of necrosis: CODE(S): L97.925 - Non-pressure chronic ulcer of unspecified part of left lower leg with muscle involvement without evidence of necrosis (2) MRSA (methicillin resistant Staphylococcus aureus) infection: CODE(S): A49.02 - Methicillin resistant Staphylococcus aureus infection, unspecified site (3) History of incision and drainage: CODE(S): Z98.890 - Other specified postprocedural states (4) History of necrotizing fasciitis: CODE(S): Z87.39 - Personal history of other diseases of the musculoskeletal system and connective tissue (5) Borderline personality disorder: CODE(S): F60.3 - Borderline personality disorder PLAN: Plan Wound care - Theraskin #2 placed today. 100% of the products were used. Theraskin was secured with Dermabond. Skin prep was used surrounding the ulcer. Adaptic touch was placed over the product and secured with Steri-strips. Ulcer covered with ABD. She was instructed not to get her ulcer wet. She may change the outer dressing as needed but was instructed to not disturb anything below the wound veil. The cluster of blisters distal to the ulcer are healing well with the B&W cream and covering with gauze. They are almost healed today. Compression - Single tubi-lieutenant ballistics with JONAS wrap on left leg for compression. Wound Culture obtained 12/29/22 positive for Enterococcus faecalis, Corynebacterium amycolatum, and Staphylococcus epidermidis. Treated with Augmentin and Doxycycline. Wound culture obtained 01/28/23 which was positive for Enterococcus faecalis and Corynebacterium striatum. She completed Augmentin. A wound culture was obtained 04/05/23 which was positive for Staphylococcus epidermidis and Staphylococcus haemolyticus. She was treated with IV Vancomycin while she was hospitalized. Prealbumin 13.9 from 04/09/23. Encourage increase protein intake including supplemental protein shakes for her increased metabolic demands from the wounds. Wound culture from 07/05/23 was positive for Proteus mirabilis and MRSA. She was treated with Augmentin and Doxycycline. A wound culture was obtained on 06/17/23, which was positive for Proteus mirabilis, Enterococcus faecalis, and Corynebacterium striatum. She was started on Augmentin, which she was instructed to continue. She starts a new job this week where she will be standing for about 4 hours per day. Encouraged her to keep her legs elevated when she [id number] sitting at home. Follow up in one week.
[2023-09-06 11:17] VITALS: BP 119/82; PULSE 104; RESP 16; TEMP 35; BMI 48.9
--- NOTE | 2023-09-06 13:05 | PCM.WC.PN ---
History of Present Illness Date of Service: 09/06/23 Chief Complaint: non-healing ulcer left medial leg History of Wound: Patient is a 22 year old female who presents to the wound healing center for evaluation and treatment of a nonhealing ulcer left medial leg. Patient is a poor historian. Reviewed notes from [facility], she had been admitted to [place] around 11/27/22 for cellulitis and worsening infection of her left lower leg. She ended having an I&D of her left medial leg, left lateral leg and left lateral thigh. She was diagnosed with necrotizing fasciitis. Her wound cultures were positive for Enterococcus and steno. Mycoplasma IGG and IgM (+). She was sent to [facility] on 2 weeks dapto, arthur, clinda, levaquin, and micafungin. Changed Dap to to Vanc. On 12/12 stopped vanc/levaquin/arthur and started IV fluc due to diagnosis of candidemia. She was discharged home from [facility] around the second week of December. She has a history of significant for depression, personality disorder, self harm, anxiety, asthma, recurrent cellulitis and ADHD and most recently Afib and tachycardia. She states that she did not cause these wounds and did not do anything to them to make them worse. She has a history of being accused of tampering with wounds. Surgery 04/07/23 - Surgical preparation left medial leg with incision and drainage and excisional debridement nonhealing infected MRSA ulcer, (126 cm2). Operative culture were negative but she was on Vancomycin and Fluconazole for positive cultures from 04/05/23 which were positive for MRSE and Staphylococcus haemolyticus. Wound culture obtained on 12/29/22 which was positive for Enterococcus faecalis, Corynebacterium amycolatum, and MRSE. She was treated with Augmentin and Doxycycline. Wound culture obtained 01/28/23 which was positive for Enterococcus faecalis and Corynebacterium striatum. She was started on Augmentin. Wound culture obtained 07/07/23 which was positive for Proteus mirabilis and MRSA. She was treated with Doxycycline and Augmentin. Wound culture obtained 08/18/23 which was positive for Proteus mirabilis, Enterococcus faecalis and Corynebacterium striatum. She completed the Augmentin. Left leg ultrasound obtained on 01/06/23 which showed There is no evidence of left lower extremity deep vein thrombosis. She was in [facility] for a week at the end of February for subcutaneous air around her wound. She states she cultured positive for MRSA and they had her on IV antibiotics. They used a wound VAC while she was in the hospital. She is now on Doxycycline. Today she denies fever, chills, nausea or vomiting. Progress of Wound: Left leg ulcer is slightly smaller this week. It is a nice beefy pink color. She has a cluster of superficial areas distal to the ulcer that were blisters from the wound VAC drape, that are completely healed. She has completed the Augmentin. She is tolerating the Theraskin well. She denies increase in drainage or any odor. Objective Data Objective Data Vital Signs: Vital Signs Temp Pulse Resp BP O2 Del Method 95 F L 104 H 16 119/82 H Room Air 09/06/23 11:17 09/06/23 11:17 09/06/23 11:17 09/06/23 11:17 09/06/23 11:17 Oxygen Delivery Method Room Air Weight: 276 lb Body Mass Index (BMI) 48.9 Lab / Micro Data Micro: Microbiology 08/18/23 10:00 Wound - Leg, Left Gram Stain - Final 08/18/23 10:00 Wound - Leg, Left Wound Culture - Final Proteus mirabilis Enterococcus faecalis Corynebacterium striatum 08/18/23 10:00 Wound - Leg, Left Anaerobic Culture - Final No anaerobic bacteria isolated. Charges/Coding Procedures Integumentary 150xxx-152xx: 72611 Skin sub graft trnk/arm/leg Add On Codes: 73710 Skin sub graft t/a/l add-on (x2) Debridement Note Debridement Note Wound debrided: #5 left medial leg Laterality: Left Wound Grade/Stage: 3 Type of Debridement: Excisional debridement Anesthesia Used: 5% Lidocaine Gel Depth: Down to and including healthy tissue and in the subcutaneous layer Percentage of wound debrided: 100 Instrument Used: 7mm curette Tissue Removed: subcutaneous tissue Severity: Fat Layer Exposed (muscle is exposed) Amount of bleeding with debridement: Mild Bleeding Controlled with: Pressure and Compression and gauze Patient tolerated procedure: Patient tolerated procedure well Post-Debridement Measurements and Additional Note: Post-Debridement Measurements/Treatment STALIN - Nurse 1 - General Ulcer Assessment Start: 08/11/23 13:04 Freq: Status: Active Protocol: WC.LOWEXT Activity Type Activity Date Activity User E-sign Co-sign Detail Recorded Client Recorded Date Recorded By Document 08/11/23 13:06 DL Desktop 08/11/23 13:11 DL Document 08/17/23 14:32 KW Desktop 08/17/23 14:47 KW Document 08/23/23 11:12 KW Desktop 08/23/23 11:26 KW Document 08/30/23 10:31 BMF Desktop 08/30/23 10:41 BMF Document 09/06/23 11:17 BMF Desktop 09/06/23 11:24 BMF 08/11/23 08/17/23 08/23/23 13:06 14:32 11:12 WC - Today's Visit Information Type of service Follow-up Visit Follow-up Visit Follow-up Visit (Physician/COORDINATOR VOL[employer]TE[employer] SERVICES (Physician/COORDINATOR VOL[employer]TEER [employer] (Physician/COORDINATOR [employer] ) ) ) Arrival Mode Ambulatory Ambulatory Ambulatory Transfer Assistance Transfer Board Accompanied by mother Patient Identification Verified (Name & Yes Yes Yes ) Patient Requires Transmission-Based No Precautions Height and Weight Body Mass Index (BMI) 48.9 48.9 48.9 BMI Classification Obese Obese Obese Vital Signs Temperature (97.8 F-99.1 F) 97.8 F 96.5 F L Temperature Source Temporal Temporal Pulse Rate (60-100) 93 104 H 105 H Pulse Location Monitor Monitor Monitor Respiratory Rate (12-18) 20 H 18 18 Respiratory rate source Observation Observation Observation Oxygen Delivery Method Room Air Room Air Blood Pressure (90/60-120/80) 146/96 H 141/80 H 128/85 H Blood Pressure Mean (mm Hg) 112 100 99 Source Monitor Monitor Monitor Position Semi-Fowlers Sitting Blood Pressure Location Left Forearm Left Arm History Since Last Visit- (Skip if this is Patient's initial visit) Have you changed medications since your No No No last visit? Any new allergies or adverse reactions No No No Had a fall/change in ADL's that may No No No increase risk of falls Signs or symptoms of abuse and/or No No No neglect since last visit Have you been in the hospital since your No No No last visit? Has dressing in place as prescribed Yes Yes Yes Has compression in place as prescribed N/A Yes Yes Has offloadiing in place as prescribed Yes No No Experienced any changes in pain level or No No No management Left Footwear Regular Shoe Regular Shoe Right Footwear Regular Shoe Regular Shoe Pain Scale: 0-10 Numeric Is Patient Pain Free? Yes Yes Yes 08/30/23 09/06/23 10:31 11:17 - Today's Visit Information Type of service Follow-up Visit Follow-up Visit (Physician/COORDINATOR VOLUNTEER SERVICES (Physician/COORDINATOR [employer] ) ) Arrival Mode Ambulatory Ambulatory Transfer Assistance None None Accompanied by Patient Identification Verified (Name & Yes Yes ) Patient Requires Transmission-Based No No Precautions Height and Weight Body Mass Index (BMI) 48.9 48.9 BMI Classification Obese Obese Vital Signs Temperature (97.8 F-99.1 F) 98.5 F 95 F L Temperature Source Temporal Temporal Pulse Rate (60-100) 96 104 H Pulse Location Monitor Monitor Respiratory Rate (12-18) 20 H 16 Respiratory rate source Observation Observation Oxygen Delivery Method Room Air Room Air Blood Pressure (90/60-120/80) 125/84 H 119/82 H Blood Pressure Mean (mm Hg) 97 94 Source Monitor Monitor Position Sitting Sitting Blood Pressure Location Left Forearm Left Arm History Since Last Visit- (Skip if this is Patient's initial visit) Have you changed medications since your No No last visit? Any new allergies or adverse reactions No No Had a fall/change in ADL's that may No No increase risk of falls Signs or symptoms of abuse and/or No No neglect since last visit Have you been in the hospital since your No No last visit? Has dressing in place as prescribed Yes Yes Has compression in place as prescribed Yes Yes Has offloadiing in place as prescribed N/A N/A Experienced any changes in pain level or No No management Left Footwear Regular Shoe Regular Shoe Right Footwear Regular Shoe Regular Shoe Pain Scale: 0-10 Numeric Is Patient Pain Free? Yes Yes - Nurse 1 - General Ulcer Measurement Start: 08/11/23 13:04 Freq: Status: Active Protocol: Activity Type Activity Date Activity User E-sign Co-sign Detail Recorded Client Recorded Date Recorded By Document 08/11/23 13:06 DL Desktop 08/11/23 13:11 DL Document 08/17/23 14:32 KW Desktop 08/17/23 14:47 KW Document 08/23/23 11:12 KW Desktop 08/23/23 11:26 KW Document 08/30/23 10:31 BMF Desktop 08/30/23 10:41 BMF Document 09/06/23 11:17 [facility] Desktop 09/06/23 11:24 [facility] 08/11/23 08/17/23 08/23/23 13:06 14:32 11:12 Wound Center Nurse 1 #7 L LOWER LEG CLUSTER -Combined with other wound No -Current Size (cm) - Length 5 5 -Current Size (cm) - Width 5.3 5.5 -Current Size (cm) - Depth 0.1 0.1 -Total Square Cm 26.5 27.5 -Date of Last Picture (Recall this 08/23/23 field) -Photo Taken Yes -Epithelialization -Tunneling No -Undermining/Tunneling No -Circular Undermining No -Exudate Amt Medium Medium -Exudate Type Serosanguineous Serosanguineous -Wound Margin Distinct, Distinct, Outline Outline Attached Attached -Granulation Amt Medium (34-66%) Small (1-33%) -Granulation Quality Red Red -Slough/Fibrin No -Necrosis Amt Small (1-33%) Medium (34-66%) -Necrotic Tissue Type Adherent Slough Adherent Slough -Structure Exposed -Texture (Brenna-wound Skin Appearance) Assessed Assessed, Scarring -Moisture (Brenna-wound Skin Appearance) Assessed Assessed -Color (Brenna-wound Skin Appearance) Assessed Assessed -Temperature (Brenna-wound Skin No Abnormality No Abnormality Appearance) (Pt Warm) (Pt Warm) -Tenderness on Palpation (Brenna-wound No Skin Appearance) -Ulcer Cleansing Soap and Water Soap and Water -Foul Odor after Cleansing No No -Anesthetic Used 4% Lidocaine 4% Lidocaine Solution Solution #5 L medial LE -Combined with other wound No -Current Size (cm) - Length 7.6 8 7.4 -Current Size (cm) - Width 9.6 9.1 8.5 -Current Size (cm) - Depth 1 0.1 0.1 -Total Square Cm 72.96 72.8 62.90 -Date of Last Picture (Recall this 08/23/23 field) -Photo Taken Yes Yes -Epithelialization Small 1-33% -Tunneling No -Undermining/Tunneling No -Circular Undermining No -Exudate Amt Medium Small Medium -Exudate Type Serosanguineous Serosanguineous Serosanguineous -Wound Margin Distinct, Distinct, Distinct, Outline Outline Outline Attached Attached Attached -Granulation Amt Large (67-100%) Large (67-100%) Large (67-100%) -Granulation Quality Red Red Pale,Red -Slough/Fibrin No -Necrosis Amt Small (1-33%) Small (1-33%) None Present (0 %) -Necrotic Tissue Type Adherent Slough Adherent Slough -Structure Exposed N/A -Texture (Brenna-wound Skin Appearance) Scarring,Rash Assessed Assessed, Scarring -Moisture (Brenna-wound Skin Appearance) Weeping Assessed Assessed -Color (Brenna-wound Skin Appearance) No Abnormality Assessed, Assessed Erythema -Temperature (Brenna-wound Skin No Abnormality No Abnormality No Abnormality Appearance) (Pt Warm) (Pt Warm) (Pt Warm) -Tenderness on Palpation (Brenna-wound No Skin Appearance) -Ulcer Cleansing Soap and Water Soap and Water Soap and Water -Foul Odor after Cleansing No No No -Anesthetic Used 4% Lidocaine 4% Lidocaine 4% Lidocaine Solution Solution Solution Lower Limb Edema Present Right Calf (cm) 46.5 Right Ankle (cm) 27.5 Left Calf (cm) 47.7 46.3 Left Ankle (cm) 28 27.3 08/30/23 09/06/23 10:31 11:17 Wound Center Nurse 1 #7 L LOWER LEG CLUSTER -Combined with other wound No No -Current Size (cm) - Length 3.9 0.1 -Current Size (cm) - Width 3.8 0.1 -Current Size (cm) - Depth 0.1 0.1 -Total Square Cm 14.82 0.01 -Date of Last Picture (Recall this 09/06/23 field) -Photo Taken Yes Yes -Epithelialization Small 1-33% Large 67-100% -Tunneling No No -Undermining/Tunneling No No -Circular Undermining No No -Exudate Amt Small None Present -Exudate Type Serosanguineous -Wound Margin Flat & Intact -Granulation Amt Large (67-100%) -Granulation Quality Red -Slough/Fibrin Yes -Necrosis Amt Small (1-33%) -Necrotic Tissue Type Adherent Slough -Structure Exposed N/A -Texture (Brenna-wound Skin Appearance) Assessed, Assessed Localized Edema -Moisture (Brenna-wound Skin Appearance) Dry/Scaly Assessed -Color (Brenna-wound Skin Appearance) Assessed Assessed -Temperature (Brenna-wound Skin No Abnormality No Abnormality Appearance) (Pt Warm) (Pt Warm) -Tenderness on Palpation (Brenna-wound No No Skin Appearance) -Ulcer Cleansing Wound Cleanser Soap and Water -Foul Odor after Cleansing No No -Anesthetic Used 4% Lidocaine 4% Lidocaine Solution Solution #5 L medial LE -Combined with other wound No No -Current Size (cm) - Length 7.0 6.2 -Current Size (cm) - Width 8.9 7.1 -Current Size (cm) - Depth 0.1 0.1 -Total Square Cm 62.30 44.02 -Date of Last Picture (Recall this 09/06/23 field) -Photo Taken Yes Yes -Epithelialization Medium 34-66% Small 1-33% -Tunneling No No -Undermining/Tunneling No No -Circular Undermining No No -Exudate Amt Medium Large -Exudate Type Serosanguineous Serosanguineous -Wound Margin Flat & Intact Distinct, Outline Attached -Granulation Amt Large (67-100%) Large (67-100%) -Granulation Quality [place] Red -Slough/Fibrin Yes Yes -Necrosis Amt Small (1-33%) Small (1-33%) -Necrotic Tissue Type Adherent Slough Adherent Slough -Structure Exposed N/A -Texture (Brenna-wound Skin Appearance) Assessed, Assessed, Localized Edema Scarring -Moisture (Brenna-wound Skin Appearance) Assessed,Dry/ Assessed,Dry/ Scaly Scaly -Color (Brenna-wound Skin Appearance) Assessed Assessed -Temperature (Brenna-wound Skin No Abnormality No Abnormality Appearance) (Pt Warm) (Pt Warm) -Tenderness on Palpation (Brenna-wound No No Skin Appearance) -Ulcer Cleansing Wound Cleanser Soap and Water -Foul Odor after Cleansing No No -Anesthetic Used 4% Lidocaine 4% Lidocaine Solution Solution Lower Limb Edema Present Yes Yes Right Calf (cm) Right Ankle (cm) Left Calf (cm) 45.3 46 Left Ankle (cm) 27.2 27 WC - Nurse 2 - General Ulcer CM Notes Start: 08/11/23 13:04 Freq: Status: Active Protocol: Activity Type Activity Date Activity User E-sign Co-sign Detail Recorded Client Recorded Date Recorded By Document 08/11/23 13:47 MW Desktop 08/11/23 13:53 MW Document 08/17/23 15:44 PL [id number] 08/17/23 15:46 PL Document 08/23/23 12:03 JF Laptop 08/23/23 12:08 JF Document 08/30/23 11:02 JF Laptop 08/30/23 11:06 JF Edit Result 08/30/23 11:02 JF (1) Laptop 08/30/23 11:07 JF Document 09/06/23 11:52 JF Laptop 09/06/23 12:00 JF (1) #5 L medial LE - Other Type of Bleeding Control => theraskin #2 => [id number] exp:6 => - Dermabond => 1 08/11/23 08/17/23 08/23/23 13:47 15:44 12:03 Wound Center Nurse 2 #7 L LOWER LEG CLUSTER -Time 14:55 -Correct Patient Yes No -Correct Side, Site, Position Yes No -Correct Procedure Yes No -Procedure Performed Yes No -Type of Procedure Debridement -Clinical Debridement Muscle / Fascia -Tissue Removed Subcutaneous, Muscle -Post Debridement (cm) - Length 8.0 -Post Debridement (cm) - Width 9.7 -Post Debridement (cm) - Depth 0.3 -Total Square (Post) (cm) 77.60 -Area of Debridement (cm) - Length 8.0 -Area of Debridement (cm) - Width 9.7 -Total Square (Area) (cm) 77.60 -Tunneling No -Undermining/Tunneling No -Circular Undermining No -Wound/Ulcer Outcome Not Healed Not Healed -Ulcer Cleansing Rinsed/ Irrigated with Saline -Foul Odor after Cleansing No -Bioengineered Tissue No -Expiration Date -Product Lot Number -Percent Used -Lot number of Saline Used -Bleeding Controlled with Pressure -Treatment Response Procedure Tolerated Well -Offloading -Debridement - Subq, 1st 20sq cm -Debridement - Muscle / Fascia, 1st Yes 20sq cm -Debridement, Muscle/Fascia, ea addt'l 3 20sq cm or part thereof -Theraskin - 101TSS (13 SQ CM) (per sq cm) -Theraskin - 102TSL (39 SQ CM) (per sq cm) #5 L medial LE -Time 13:47 12:03 -Correct Patient Yes Yes -Correct Side, Site, Position Yes Yes -Correct Procedure Yes Yes -Procedure Performed Yes Yes -Type of Procedure Debridement Debridement -Clinical Debridement Muscle / Fascia Muscle / Fascia -Tissue Removed Muscle,Fascia Muscle,Fascia -Post Debridement (cm) - Length 8.0 7.5 -Post Debridement (cm) - Width 9.7 8.5 -Post Debridement (cm) - Depth 0.4 0.1 -Total Square (Post) (cm) 77.60 63.75 -Area of Debridement (cm) - Length 8.0 7.5 -Area of Debridement (cm) - Width 9.7 8.5 -Total Square (Area) (cm) 77.60 63.75 -Tunneling No No -Undermining/Tunneling No No -Circular Undermining No No -Wound/Ulcer Outcome Not Healed Not Healed -Ulcer Cleansing Rinsed/ Rinsed/ Irrigated with Irrigated with Saline Saline -Foul Odor after Cleansing No No -Bioengineered Tissue No Yes -Type of Bioengineered Tissue -Type of Bioengineered Tissue Theraskin -Expiration Date 07/04/27 -Product Lot Number [id number] -Percent Used 100 -Lot number of Saline Used [id number] -Bleeding Controlled with Pressure Pressure -Other Type of Bleeding Control Theraskin ID [id number] exp. 09/13/2027 -Treatment Response Procedure Procedure Tolerated Well Tolerated Well -Offloading No No -Debridement - Subq, 1st 20sq cm -Debridement - Muscle / Fascia, 1st Yes No 20sq cm -Debridement, Muscle/Fascia, ea addt'l 3 20sq cm or part thereof -Apply Skin Sub - 1st 25 sq cm - Legs 1 -Apply Skin Sub - each addt'l 25 sq cm 2 - Legs -Dermabond -Theraskin (per sq cm) 65 -Theraskin - 101TSS (13 SQ CM) (per sq cm) -Theraskin - 26TS (26 SQ CM) (per sq cm) -Theraskin - 102TSL (39 SQ CM) (per sq cm) Pain Scale: 0-10 Numeric Is Patient Pain Free? Yes Yes Yes 08/30/23 09/06/23 11:02 11:52 Wound Center Nurse 2 #7 L LOWER LEG CLUSTER -Time 11:53 -Correct Patient No No -Correct Side, Site, Position No No -Correct Procedure No No -Procedure Performed No No -Type of Procedure -Clinical Debridement -Tissue Removed -Post Debridement (cm) - Length 0 -Post Debridement (cm) - Width 0 -Post Debridement (cm) - Depth -Total Square (Post) (cm) 0 -Area of Debridement (cm) - Length 0 -Area of Debridement (cm) - Width 0 -Total Square (Area) (cm) 0 -Tunneling No -Undermining/Tunneling No -Circular Undermining No -Wound/Ulcer Outcome Not Healed Healed- Epithelialized -Ulcer Cleansing Rinsed/ Rinsed/ Irrigated with Irrigated with Saline Saline -Foul Odor after Cleansing No No -Bioengineered Tissue No -Expiration Date 03/09/28 -Product Lot Number [id number] -Percent Used 100 -Lot number of Saline Used [id number] -Bleeding Controlled with Pressure -Treatment Response Procedure Tolerated Well -Offloading No -Debridement - Subq, 1st 20sq cm No -Debridement - Muscle / Fascia, 1st 20sq cm -Debridement, Muscle/Fascia, ea addt'l 20sq cm or part thereof -Theraskin - 101TSS (13 SQ CM) (per sq 13 cm) -Theraskin - 102TSL (39 SQ CM) (per sq 39 cm) #5 L medial LE -Time 11:03 11:56 -Correct Patient Yes Yes -Correct Side, Site, Position Yes Yes -Correct Procedure Yes Yes -Procedure Performed Yes Yes -Type of Procedure Debridement Debridement -Clinical Debridement Subcutaneous Muscle / Fascia -Tissue Removed Subcutaneous Muscle,Fascia -Post Debridement (cm) - Length 7.5 7.5 -Post Debridement (cm) - Width 8.7 7.5 -Post Debridement (cm) - Depth 0.2 0.1 -Total Square (Post) (cm) 65.25 56.25 -Area of Debridement (cm) - Length 7.5 7.5 -Area of Debridement (cm) - Width 8.7 7.5 -Total Square (Area) (cm) 65.25 56.25 -Tunneling No No -Undermining/Tunneling No No -Circular Undermining No No -Wound/Ulcer Outcome Not Healed Not Healed -Ulcer Cleansing Rinsed/ Rinsed/ Irrigated with Irrigated with Saline Saline -Foul Odor after Cleansing No No -Bioengineered Tissue Yes Yes -Type of Bioengineered Tissue Theraskin Theraskin -Type of Bioengineered Tissue -Expiration Date 11/30/26 01/17/28 -Product Lot Number [id number] -Percent Used 100 100 -Lot number of Saline Used [id number] -Bleeding Controlled with Pressure Pressure -Other Type of Bleeding Control theraskin #2 [id number] exp:01/27/2027 -Treatment Response Procedure Procedure Tolerated Well Tolerated Well -Offloading No No -Debridement - Subq, 1st 20sq cm No -Debridement - Muscle / Fascia, 1st No 20sq cm -Debridement, Muscle/Fascia, ea addt'l 20sq cm or part thereof -Apply Skin Sub - 1st 25 sq cm - Legs 1 1 -Apply Skin Sub - each addt'l 25 sq cm 2 2 - Legs -Dermabond 1 -Theraskin (per sq cm) -Theraskin - 101TSS (13 SQ CM) (per sq 13 cm) -Theraskin - 26TS (26 SQ CM) (per sq 1 cm) -Theraskin - 102TSL (39 SQ CM) (per sq 1 39 cm) Pain Scale: 0-10 Numeric Is Patient Pain Free? Yes Yes WC - Nurse 3 - General Ulcer D/C NN Start: 08/11/23 13:04 Freq: Status: Active Protocol: Activity Type Activity Date Activity User E-sign Co-sign Detail Recorded Client Recorded Date Recorded By Document 08/11/23 14:00 DL Desktop 08/11/23 14:02 DL Document 08/17/23 15:13 KW Desktop 08/17/23 15:15 KW Document 08/23/23 12:14 KW Desktop 08/23/23 12:16 KW Document 08/30/23 11:21 BMF Desktop 08/30/23 11:22 BMF Document 09/06/23 12:10 BMF Desktop 09/06/23 12:11 BMF 08/11/23 08/17/23 08/23/23 14:00 15:13 12:14 Wound Care Center Nurse 3 #7 L LOWER LEG CLUSTER -Ulcer Cleansing Rinsed/ Irrigated with Saline -Primary Dressing Applied NonAdherent Contact Layer -Other Dressing -Primary Dressing Covered/Secured with Dry Gauze & Dry Gauze & Roll Gauze, Roll Gauze, Secured with Secured with Tape Tape #5 L medial LE -Ulcer Cleansing Rinsed/ Irrigated with Saline -Foul Odor after Cleansing No -Negative Pressure Wound Therapy Continue Continue -Setting (mmHg) 150 150 -Negative Pressure is Continuous Continuous -Primary Dressing Applied NonAdherent Contact Layer -Other Dressing -Primary Dressing Covered/Secured with Dry Gauze & Roll Gauze, Secured with Tape -Other Covering -NPWT Application Charge NPWT & NPWT & Debridement (nc Debridement (nc ) ) Left -Compression Wrap Jonas Wrap Jonas Wrap -Tubular Bandage Single Layer Single Layer Single Layer -Size of Tubigrip Used Size E Size E Size E -Size E ($) 1 1 1 -Size F ($) -Other Treatment Response Pain Scale: 0-10 Numeric Is Patient Pain Free? Yes Yes Yes WC - Visit Discharge Discharge Condition Stable Stable Stable Ambulatory Status Ambulatory Ambulatory Ambulatory Transportation Private Auto Private Auto Private Auto Medication Reconcilliation completed & No No provided to patient/care provider Clinical Summary of Care Provided Yes Yes Facility Type Nursing Home Care Facility Orders Sent Yes 08/30/23 09/06/23 11:21 12:10 Wound Care Center Nurse 3 #7 L LOWER LEG CLUSTER -Ulcer Cleansing -Primary Dressing Applied NonAdherent Contact Layer -Other Dressing ABD -Primary Dressing Covered/Secured with Dry Gauze & Roll Gauze, Secured with Tape #5 L medial LE -Ulcer Cleansing -Foul Odor after Cleansing -Negative Pressure Wound Therapy -Setting (mmHg) -Negative Pressure is -Primary Dressing Applied -Other Dressing THERASKIN; ABD theraskin -Primary Dressing Covered/Secured with Dry Gauze & Dry Gauze & Roll Gauze, Roll Gauze, Secured with Secured with Tape Tape -Other Covering abd -NPWT Application Charge Left -Compression Wrap Jonas Wrap Jonas Wrap -Tubular Bandage Single Layer Single Layer -Size of Tubigrip Used Size F Size F -Size E ($) -Size F ($) 2 1 -Other EXTRA SENT Treatment Response Procedure Procedure Tolerated Well Tolerated Well Pain Scale: 0-10 Numeric Is Patient Pain Free? Yes Yes WC - Visit Discharge Discharge Condition Stable Stable Ambulatory Status Ambulatory Ambulatory Transportation Private Auto Private Auto Medication Reconcilliation completed & provided to patient/care provider Clinical Summary of Care Provided Facility Type Staffing Consultant Care Facility Orders Sent Assessment/Plan Assessment/Plan (1) Ulcer of left lower extremity with muscle involvement without evidence of necrosis: CODE(S): L97.925 - Non-pressure chronic ulcer of unspecified part of left lower leg with muscle involvement without evidence of necrosis (2) MRSA (methicillin resistant Staphylococcus aureus) infection: CODE(S): A49.02 - Methicillin resistant Staphylococcus aureus infection, unspecified site (3) History of incision and drainage: CODE(S): Z98.890 - Other specified postprocedural states (4) History of necrotizing fasciitis: CODE(S): Z87.39 - Personal history of other diseases of the musculoskeletal system and connective tissue (5) Borderline personality disorder: CODE(S): F60.3 - Borderline personality disorder PLAN: Plan Wound care - Theraskin #3 placed today. 100% of the products were used. Theraskin was secured with Dermabond. Skin prep was used surrounding the ulcer. Adaptic touch was placed over the product and secured with Steri-strips. Ulcer covered with ABD. She was instructed not to get her ulcer wet. She may change the outer dressing as needed but was instructed to not disturb anything below the wound veil. Compression - Single tubi-energy and conservation technician with JONAS wrap on left leg for compression. Wound Culture obtained 12/29/22 positive for Enterococcus faecalis, Corynebacterium amycolatum, and Staphylococcus epidermidis. Treated with Augmentin and Doxycycline. Wound culture obtained 01/28/23 which was positive for Enterococcus faecalis and Corynebacterium striatum. She completed Augmentin. A wound culture was obtained 04/05/23 which was positive for Staphylococcus epidermidis and Staphylococcus haemolyticus. She was treated with IV Vancomycin while she was hospitalized. Prealbumin 13.9 from 04/09/23. Encourage increase protein intake including supplemental protein shakes for her increased metabolic demands from the wounds. Wound culture from 07/05/23 was positive for Proteus mirabilis and MRSA. She was treated with Augmentin and Doxycycline. A wound culture was obtained on 06/17/23, which was positive for Proteus mirabilis, Enterococcus faecalis, and Corynebacterium striatum. She was started on Augmentin, which she was instructed to continue. Wound culture obtained 08/18/23 which was positive for Proteus mirabilis, Enterococcus faecalis and Corynebacterium striatum. She completed the Augmentin. She starts a new job this week where she will be standing for about 4 hours per day. Encouraged her to keep her legs elevated when she is sitting at home. Follow up in one week.
== END 2023-09-08 23:59 | disposition home or self-care (01) ==
LOC: WC 11:15
PROVIDERS: PCP Student in an Organized Health Care Education/Training Program; Referring Provider Student in an Organized Health Care Education/Training Program; Visit Provider Nurse Practitioner Family
DX: L97.925 Non-pressure chronic ulcer of unspecified part of left lower leg with muscle involvement without evidence of necrosis (principal); M72.6 Necrotizing fasciitis; F60.3 Borderline personality disorder; A49.02 Methicillin resistant Staphylococcus aureus infection, unspecified site; Z98.890 Other specified postprocedural states; Z87.39 Personal history of other diseases of the musculoskeletal system and connective tissue
CPT/HCPCS: 11043; 11046; 15271; 15272; 87070; 87075; 87077; 87186; 87205; Q4121

== ENCOUNTER 2023-10-04 11:15 | Outpatient (RCR) | payer MEDICAID, SELFPAY ==
[2023-09-09 00:54] VITALS: BP 119/82; PULSE 104; RESP 16; TEMP 35; BMI 48.9
[2023-09-13 11:14] VITALS: BP 137/90; PULSE 100; RESP 18; TEMP 35.6; BMI 48.9
--- NOTE | 2023-09-13 12:21 | PCM.WC.PN ---
History of Present Illness Date of Service: 09/13/23 Chief Complaint: non-healing ulcer left medial leg History of Wound: Patient is a 22 year old female who presents to the wound healing center for evaluation and treatment of a nonhealing ulcer left medial leg. Patient is a poor historian. Reviewed notes from [facility], she had been admitted to [facility] around 11/27/22 for cellulitis and worsening infection of her left lower leg. She ended having an I&D of her left medial leg, left lateral leg and left lateral thigh. She was diagnosed with necrotizing fasciitis. Her wound cultures were positive for Enterococcus and steno. Mycoplasma IGG and IgM (+). She was sent to [facility] on 2 weeks dapto, arthur, clinda, levaquin, and micafungin. Changed Dap to to Vanc. On 12/12 stopped vanc/levaquin/arthur and started IV fluc due to diagnosis of candidemia. She was discharged home from [facility] around the second week of December. She has a history of significant for depression, personality disorder, self harm, anxiety, asthma, recurrent cellulitis and ADHD and most recently Afib and tachycardia. She states that she did not cause these wounds and did not do anything to them to make them worse. She has a history of being accused of tampering with wounds. Surgery 04/07/23 - Surgical preparation left medial leg with incision and drainage and excisional debridement nonhealing infected MRSA ulcer, (126 cm2). Operative culture were negative but she was on Vancomycin and Fluconazole for positive cultures from 04/05/23 which were positive for MRSE and Staphylococcus haemolyticus. Wound culture obtained on 12/29/22 which was positive for Enterococcus faecalis, Corynebacterium amycolatum, and MRSE. She was treated with Augmentin and Doxycycline. Wound culture obtained 01/28/23 which was positive for Enterococcus faecalis and Corynebacterium striatum. She was started on Augmentin. Wound culture obtained 07/07/23 which was positive for Proteus mirabilis and MRSA. She was treated with Doxycycline and Augmentin. Wound culture obtained 08/18/23 which was positive for Proteus mirabilis, Enterococcus faecalis and Corynebacterium striatum. She completed the Augmentin. Left leg ultrasound obtained on 01/06/23 which showed There is no evidence of left lower extremity deep vein thrombosis. She was in [facility] for a week at the end of February for subcutaneous air around her wound. She states she cultured positive for MRSA and they had her on IV antibiotics. They used a wound VAC while she was in the hospital. She is now on Doxycycline. Today she denies fever, chills, nausea or vomiting. Progress of Wound: Left leg ulcer is slightly smaller this week. It is beefy pink in color. She is tolerating the Theraskin well. Started a new job where she is standing for 5-6 hours at a time several times per week and since doing this, she has noticed an small increase in drainage. Objective Data Objective Data Vital Signs: Vital Signs Temp Pulse Resp BP O2 Del Method 96.0 F L 100 18 137/90 H Room Air 09/13/23 11:14 09/13/23 11:14 09/13/23 11:14 09/13/23 11:14 09/13/23 11:14 Oxygen Delivery Method Room Air Weight: 276 lb Body Mass Index (BMI) 48.9 Charges/Coding Procedures Integumentary 150xxx-152xx: 31492 Skin sub graft trnk/arm/leg Add On Codes: 80424 Skin sub graft t/a/l add-on Debridement Note Debridement Note Wound debrided: #5 left medial leg Laterality: Left Wound Grade/Stage: 3 Type of Debridement: Excisional debridement Anesthesia Used: 5% Lidocaine Gel Depth: Down to and including healthy tissue and in the subcutaneous layer Percentage of wound debrided: 100 Instrument Used: 7mm curette Tissue Removed: subcutaneous tissue Severity: Fat Layer Exposed (muscle is exposed) Amount of bleeding with debridement: Mild Bleeding Controlled with: Pressure and Compression and gauze Patient tolerated procedure: Patient tolerated procedure well Post-Debridement Measurements and Additional Note: Post-Debridement Measurements/Treatment - Nurse 1 - General Ulcer Assessment Start: 09/13/23 11:14 Freq: Status: Active Protocol: BOBO Activity Type Activity Date Activity User E-sign Co-sign Detail Recorded Client Recorded Date Recorded By Document 09/13/23 11:14 KW Desktop 09/13/23 11:23 KW 09/13/23 11:14 - Today's Visit Information Type of service Follow-up Visit (Physician/FLUE LINING DIPPER ) Arrival Mode Ambulatory Patient Identification Verified (Name & Yes ) Height and Weight Body Mass Index (BMI) 48.9 BMI Classification Obese Vital Signs Temperature (97.8 F-99.1 F) 96.0 F L Temperature Source Temporal Pulse Rate (60-100) 100 Pulse Location Monitor Respiratory Rate (12-18) 18 Respiratory rate source Observation Oxygen Delivery Method Room Air Blood Pressure (90/60-120/80) 137/90 H Blood Pressure Mean (mm Hg) 105 Source Monitor Position Semi-Fowlers Blood Pressure Location Left Forearm History Since Last Visit- (Skip if this is Patient's initial visit) Have you changed medications since your No last visit? Any new allergies or adverse reactions No Had a fall/change in ADL's that may No increase risk of falls Signs or symptoms of abuse and/or No neglect since last visit Have you been in the hospital since your No last visit? Has dressing in place as prescribed Yes Has compression in place as prescribed Yes Has offloadiing in place as prescribed N/A Experienced any changes in pain level or No management Left Footwear Regular Shoe Right Footwear Regular Shoe Pain Scale: 0-10 Numeric Is Patient Pain Free? Yes WC - Nurse 1 - General Ulcer Measurement Start: 09/13/23 11:14 Freq: Status: Active Protocol: Activity Type Activity Date Activity User E-sign Co-sign Detail Recorded Client Recorded Date Recorded By Document 09/13/23 11:14 KW Desktop 09/13/23 11:23 KW 09/13/23 11:14 Wound Center Nurse 1 #5 L medial LE -Combined with other wound No -Current Size (cm) - Length 6 -Current Size (cm) - Width 7.5 -Current Size (cm) - Depth 0.1 -Total Square Cm 45.0 -Date of Last Picture (Recall this 09/13/23 field) -Photo Taken Yes -Epithelialization Small 1-33% -Tunneling No -Undermining/Tunneling No -Circular Undermining No -Exudate Amt Large -Exudate Type Serosanguineous -Wound Margin Distinct, Outline Attached -Granulation Amt Large (67-100%) -Granulation Quality Red -Slough/Fibrin Yes -Necrosis Amt Small (1-33%) -Necrotic Tissue Type Adherent Slough -Texture (Brenna-wound Skin Appearance) Assessed, Scarring -Moisture (Brenna-wound Skin Appearance) Assessed,Dry/ Scaly -Color (Brenna-wound Skin Appearance) Assessed -Temperature (Brenna-wound Skin No Abnormality Appearance) (Pt Warm) -Tenderness on Palpation (Brenna-wound No Skin Appearance) -Foul Odor after Cleansing No -Anesthetic Used 4% Lidocaine Solution Lower Limb Edema Present Yes Left Calf (cm) 49 Left Ankle (cm) 30 WC - Nurse 2 - General Ulcer CM Notes Start: 09/13/23 11:14 Freq: Status: Active Protocol: Activity Type Activity Date Activity User E-sign Co-sign Detail Recorded Client Recorded Date Recorded By Document 09/13/23 12:17 PL [id number] 09/13/23 12:19 PL Edit Result 09/13/23 12:17 PL (1) [id number] 09/13/23 12:20 PL (1) #5 L medial LE - Dermabond => 1 09/13/23 12:17 Wound Center Nurse 2 #5 L medial LE -Time 11:45 -Correct Patient Yes -Correct Side, Site, Position Yes -Correct Procedure Yes -Procedure Performed Yes -Type of Procedure Debridement -Clinical Debridement Subcutaneous -Tissue Removed Subcutaneous -Post Debridement (cm) - Length 6.0 -Post Debridement (cm) - Width 8.0 -Post Debridement (cm) - Depth 0.1 -Total Square (Post) (cm) 48.00 -Area of Debridement (cm) - Length 6 -Area of Debridement (cm) - Width 8.0 -Total Square (Area) (cm) 48.0 -Tunneling No -Undermining/Tunneling No -Circular Undermining No -Wound/Ulcer Outcome Not Healed -Ulcer Cleansing Rinsed/ Irrigated with Saline -Foul Odor after Cleansing No -Bioengineered Tissue Yes -Type of Bioengineered Tissue Theraskin -Expiration Date 01/17/28 -Product Lot Number [id number] -Percent Used 100 -Lot number of Saline Used [id number] -Debridement - Subq, 1st 20sq cm No -Apply Skin Sub - 1st 25 sq cm - Legs 1 -Apply Skin Sub - each addt'l 25 sq cm 1 - Legs -Dermabond 1 -Theraskin - 102TSL (39 SQ CM) (per sq 39 cm) Pain Scale: 0-10 Numeric Is Patient Pain Free? Yes WC - Nurse 3 - General Ulcer D/C NN Start: 09/13/23 11:14 Freq: Status: Active Protocol: Activity Type Activity Date Activity User E-sign Co-sign Detail Recorded Client Recorded Date Recorded By Document 09/13/23 12:06 KW Desktop 09/13/23 12:07 KW 09/13/23 12:06 Wound Care Center Nurse 3 #5 L medial LE -Primary Dressing Covered/Secured with Dry Gauze & Roll Gauze, Secured with Tape Left -Compression Wrap Jonas Wrap -Tubular Bandage Single Layer -Size of Tubigrip Used Size F -Size F ($) 1 Pain Scale: 0-10 Numeric Is Patient Pain Free? Yes WC - Visit Discharge Discharge Condition Stable Ambulatory Status Ambulatory Transportation Private Auto Medication Reconcilliation completed & No provided to patient/care provider Clinical Summary of Care Provided Yes Assessment/Plan Assessment/Plan (1) Ulcer of left lower extremity with muscle involvement without evidence of necrosis: CODE(S): L97.925 - Non-pressure chronic ulcer of unspecified part of left lower leg with muscle involvement without evidence of necrosis (2) MRSA (methicillin resistant Staphylococcus aureus) infection: CODE(S): A49.02 - Methicillin resistant Staphylococcus aureus infection, unspecified site (3) History of incision and drainage: CODE(S): Z98.890 - Other specified postprocedural states (4) History of necrotizing fasciitis: CODE(S): Z87.39 - Personal history of other diseases of the musculoskeletal system and connective tissue (5) Borderline personality disorder: CODE(S): F60.3 - Borderline personality disorder PLAN: Plan Wound care - Theraskin #4 placed today. 100% of the product was used. Theraskin was secured with Dermabond. Skin prep was used surrounding the ulcer. Adaptic touch was placed over the product and secured with Steri-strips. Ulcer covered with ABD. She was instructed not to get her ulcer wet. She may change the outer dressing as needed but was instructed to not disturb anything below the wound veil. Compression - Single tubi-area development consultant with JONAS wrap on left leg for compression. Wound Culture obtained 12/29/22 positive for Enterococcus faecalis, Corynebacterium amycolatum, and Staphylococcus epidermidis. Treated with Augmentin and Doxycycline. Wound culture obtained 01/28/23 which was positive for Enterococcus faecalis and Corynebacterium striatum. She completed Augmentin. A wound culture was obtained 04/05/23 which was positive for Staphylococcus epidermidis and Staphylococcus haemolyticus. She was treated with IV Vancomycin while she was hospitalized. Prealbumin 13.9 from 04/09/23. Encourage increase protein intake including supplemental protein shakes for her increased metabolic demands from the wounds. Wound culture from 07/05/23 was positive for Proteus mirabilis and MRSA. She was treated with Augmentin and Doxycycline. A wound culture was obtained on 06/17/23, which was positive for Proteus mirabilis, Enterococcus faecalis, and Corynebacterium striatum. She was started on Augmentin, which she was instructed to continue. Wound culture obtained 08/18/23 which was positive for Proteus mirabilis, Enterococcus faecalis and Corynebacterium striatum. She completed the Augmentin. She is doing well with her new job and states that she keeps her leg elevated when she is at home to help prevent the swelling. Follow up in one week.
[2023-09-21 13:23] VITALS: BP 148/93; PULSE 94; RESP 18; TEMP 35.8; BMI 48.9
--- NOTE | 2023-09-21 14:49 | PN.PCM_ITS ---
History of Present Illness Date of Service: 09/21/23 Chief Complaint: non-healing ulcer left medial leg History of Wound: Patient is a 22 year old female who presents to the wound healing center for evaluation and treatment of a nonhealing ulcer left medial leg. Patient is a poor historian. Reviewed notes from [facility], she had been admitted to [place] around 11/27/22 for cellulitis and worsening infection of her left lower leg. She ended having an I&D of her left medial leg, left lateral leg and left lateral thigh. She was diagnosed with necrotizing fasciitis. Her wound cultures were positive for Enterococcus and steno. Mycoplasma IGG and IgM (+). She was sent to [facility] on 2 weeks dapto, arthur, clinda, levaquin, and micafungin. Changed Dap to to Vanc. On 12/12 stopped vanc/levaquin/arthur and started IV fluc due to diagnosis of candidemia. She was discharged home from [facility] around the second week of December. She has a history of significant for depression, personality disorder, self harm, anxiety, asthma, recurrent cellulitis and ADHD and most recently Afib and tachycardia. She states that she did not cause these wounds and did not do anything to them to make them worse. She has a history of being accused of tampering with wounds. Surgery 04/07/23 - Surgical preparation left medial leg with incision and drainage and excisional debridement nonhealing infected MRSA ulcer, (126 cm2). Operative culture were negative but she was on Vancomycin and Fluconazole for positive cultures from 04/05/23 which were positive for MRSE and Staphylococcus haemolyticus. Wound culture obtained on 12/29/22 which was positive for Enterococcus faecalis, Corynebacterium amycolatum, and MRSE. She was treated with Augmentin and Doxycycline. Wound culture obtained 01/28/23 which was positive for Enterococcus faecalis and Corynebacterium striatum. She was started on Augmentin. Wound culture obtained 07/07/23 which was positive for Proteus mirabilis and MRSA. She was treated with Doxycycline and Augmentin. Wound culture obtained 08/18/23 which was positive for Proteus mirabilis, Enterococcus faecalis and Corynebacterium striatum. She completed the Augmentin. Left leg ultrasound obtained on 01/06/23 which showed There is no evidence of left lower extremity deep vein thrombosis. She was in [facility] for a week at the end of February for subcutaneous air around her wound. She states she cultured positive for MRSA and they had her on IV antibiotics. They used a wound VAC while she was in the hospital. She was placed on Doxycycline and has finished them. Wound Care - Thera-Skin placement #4. Today she denies fever, chills, nausea or vomiting. Progress of Wound: Improved with the placement of Thera-Skin #4 There is some redness inferiorly probably secondary to increased drainage on the skin. The area of concern looks fungal in nature. Objective Data Objective Data Vital Signs: Vital Signs Temp Pulse Resp BP O2 Del Method 96.4 F L 94 18 148/93 H Room Air 09/21/23 13:23 09/21/23 13:23 09/21/23 13:23 09/21/23 13:23 09/21/23 13:23 Oxygen Delivery Method Room Air Weight: 276 lb Body Mass Index (BMI) 48.9 Prealbumin 13.9 from 04/09/23. Encourage nutritional supplementation with protein to help the healing process. Lab / Micro Data Attestation: I reviewed the patient's lab results. Charges/Coding Procedures Integumentary 150xxx-152xx: 95512 Skin sub graft trnk/arm/leg (ICD-10 - L97.925, A49.02, Z98.890, Z87.39, F60.3) Add On Codes: 10796 Skin sub graft t/a/l add-on (ICD-10 - L97.925, A49.02, Z98.890, Z87.39, F60.3) Debridement Note Debridement Note Wound debrided: #5 left medial leg Laterality: Left Wound Grade/Stage: 3 Type of Debridement: Excisional debridement Anesthesia Used: 5% Lidocaine Gel Depth: Down to and including healthy tissue and in the subcutaneous layer Percentage of wound debrided: 100 Instrument Used: 7mm curette Tissue Removed: subcutaneous tissue Severity: Fat Layer Exposed Amount of bleeding with debridement: Mild Bleeding Controlled with: Pressure and Compression and gauze Patient tolerated procedure: Patient tolerated procedure well Debridement Free Text: Placement of Thera-Skin #5 today. Expiration - 11/12/27 Product Lot Number - [id number]. Percent used - 100%. Saline Lot Number - [id number]. Size of Thera-Skin advanced skin substitute graft used - 39 cm2. Post-Debridement Measurements and Additional Note: Post-Debridement Measurements/Treatment WC - Nurse 1 - General Ulcer Assessment Start: 09/13/23 11:14 Freq: Status: Active Protocol: BOBO Activity Type Activity Date Activity User E-sign Co-sign Detail Recorded Client Recorded Date Recorded By Document 09/13/23 11:14 KW Desktop 09/13/23 11:23 KW Document 09/21/23 13:23 KW Desktop 09/21/23 13:28 KW 09/13/23 09/21/23 11:14 13:23 WC - Today's Visit Information Type of service Follow-up Visit Follow-up Visit (Physician/[employer]KE [employer]ER (Physician/[employer]KE [employer]PLER ) ) Arrival Mode Ambulatory Ambulatory Patient Identification Verified (Name & Yes Yes ) Height and Weight Body Mass Index (BMI) 48.9 48.9 BMI Classification Obese Obese Vital Signs Temperature (97.8 F-99.1 F) 96.0 F L 96.4 F L Temperature Source Temporal Temporal Pulse Rate (60-100) 100 94 Pulse Location Monitor Monitor Respiratory Rate (12-18) 18 18 Respiratory rate source Observation Observation Oxygen Delivery Method Room Air Room Air Blood Pressure (90/60-120/80) 137/90 H 148/93 H Blood Pressure Mean (mm Hg) 105 111 Source Monitor Monitor Position Semi-Fowlers Semi-Fowlers Blood Pressure Location Left Forearm Left Arm History Since Last Visit- (Skip if this is Patient's initial visit) Have you changed medications since your No No last visit? Any new allergies or adverse reactions No No Had a fall/change in ADL's that may No No increase risk of falls Signs or symptoms of abuse and/or No No neglect since last visit Have you been in the hospital since your No No last visit? Has dressing in place as prescribed Yes Yes Has compression in place as prescribed Yes Yes Has offloadiing in place as prescribed N/A N/A Experienced any changes in pain level or No No management Left Footwear Regular Shoe Regular Shoe Right Footwear Regular Shoe Regular Shoe Pain Scale: 0-10 Numeric Is Patient Pain Free? Yes Yes STALIN - Nurse 1 - General Ulcer Measurement Start: 09/13/23 11:14 Freq: Status: Active Protocol: Activity Type Activity Date Activity User E-sign Co-sign Detail Recorded Client Recorded Date Recorded By Document 09/13/23 11:14 KW Desktop 09/13/23 11:23 KW Document 09/21/23 13:23 KW Desktop 09/21/23 13:28 KW 09/13/23 09/21/23 11:14 13:23 Wound Center Nurse 1 #5 L medial LE -Combined with other wound No -Current Size (cm) - Length 6 0.1 -Current Size (cm) - Width 7.5 0.1 -Current Size (cm) - Depth 0.1 0.1 -Total Square Cm 45.0 0.01 -Date of Last Picture (Recall this 09/13/23 field) -Photo Taken Yes -Epithelialization Small 1-33% -Tunneling No -Undermining/Tunneling No -Circular Undermining No -Exudate Amt Large Medium -Exudate Type Serosanguineous Serosanguineous -Wound Margin Distinct, Distinct, Outline Outline Attached Attached -Granulation Amt Large (67-100%) -Granulation Quality Red -Slough/Fibrin Yes -Necrosis Amt Small (1-33%) -Necrotic Tissue Type Adherent Slough -Texture (Brenna-wound Skin Appearance) Assessed, Assessed, Scarring Localized Edema -Moisture (Brenna-wound Skin Appearance) Assessed,Dry/ Assessed Scaly -Color (Brenna-wound Skin Appearance) Assessed Assessed, Erythema -Temperature (Brenna-wound Skin No Abnormality No Abnormality Appearance) (Pt Warm) (Pt Warm) -Tenderness on Palpation (Brenna-wound No Skin Appearance) -Ulcer Cleansing Soap and Water -Foul Odor after Cleansing No No -Anesthetic Used 4% Lidocaine Solution Lower Limb Edema Present Yes Left Calf (cm) 49 27.7 Left Ankle (cm) 30 47 WC - Nurse 2 - General Ulcer CM Notes Start: 09/13/23 11:14 Freq: Status: Active Protocol: Activity Type Activity Date Activity User E-sign Co-sign Detail Recorded Client Recorded Date Recorded By Document 09/13/23 12:17 PL [id number] 09/13/23 12:19 PL Edit Result 09/13/23 12:17 PL (1) [id number] 09/13/23 12:20 PL Document 09/21/23 13:58 JF Laptop 09/21/23 14:00 JF (1) #5 L medial LE - Dermabond => 1 09/13/23 09/21/23 12:17 13:58 Wound Center Nurse 2 #5 L medial LE -Time 11:45 13:59 -Correct Patient Yes Yes -Correct Side, Site, Position Yes Yes -Correct Procedure Yes Yes -Procedure Performed Yes Yes -Type of Procedure Debridement Debridement -Clinical Debridement Subcutaneous Subcutaneous -Tissue Removed Subcutaneous Subcutaneous -Post Debridement (cm) - Length 6.0 6.0 -Post Debridement (cm) - Width 8.0 7.5 -Post Debridement (cm) - Depth 0.1 0.1 -Total Square (Post) (cm) 48.00 45.00 -Area of Debridement (cm) - Length 6 6.0 -Area of Debridement (cm) - Width 8.0 7.5 -Total Square (Area) (cm) 48.0 45.00 -Tunneling No No -Undermining/Tunneling No No -Circular Undermining No No -Wound/Ulcer Outcome Not Healed Not Healed -Ulcer Cleansing Rinsed/ Rinsed/ Irrigated with Irrigated with Saline Saline -Foul Odor after Cleansing No No -Bioengineered Tissue Yes Yes -Type of Bioengineered Tissue Theraskin Theraskin -Expiration Date 01/17/28 11/12/27 -Product Lot Number [id number] -Percent Used 100 100 -Lot number of Saline Used [id number] -Bleeding Controlled with Pressure -Treatment Response Procedure Tolerated Well -Offloading No -Debridement - Subq, 1st 20sq cm No No -Apply Skin Sub - 1st 25 sq cm - Legs 1 1 -Apply Skin Sub - each addt'l 25 sq cm 1 1 - Legs -Dermabond 1 -Theraskin - 102TSL (39 SQ CM) (per sq 39 39 cm) Pain Scale: 0-10 Numeric Is Patient Pain Free? Yes Yes WC - Nurse 3 - General Ulcer D/C NN Start: 09/13/23 11:14 Freq: Status: Active Protocol: Activity Type Activity Date Activity User E-sign Co-sign Detail Recorded Client Recorded Date Recorded By Document 09/13/23 12:06 KW Desktop 09/13/23 12:07 KW Document 09/21/23 14:14 RB Desktop 09/21/23 14:14 RB 09/13/23 09/21/23 12:06 14:14 Wound Care Center Nurse 3 #5 L medial LE -Other Dressing abd -Primary Dressing Covered/Secured with Dry Gauze & Dry Gauze & Roll Gauze, Roll Gauze, Secured with Secured with Tape Tape Left -Compression Wrap Jonas Wrap -Tubular Bandage Single Layer Single Layer -Size of Tubigrip Used Size F Size F -Size F ($) 1 1 -Other jonas Treatment Response Procedure Tolerated Well Pain Scale: 0-10 Numeric Is Patient Pain Free? Yes Yes WC - Visit Discharge Discharge Condition Stable Stable Ambulatory Status Ambulatory Ambulatory Transportation Private Auto Private Auto Medication Reconcilliation completed & No No provided to patient/care provider Clinical Summary of Care Provided Yes Yes Assessment/Plan Assessment/Plan (1) Ulcer of left lower extremity with muscle involvement without evidence of necrosis: CODE(S): L97.925 - Non-pressure chronic ulcer of unspecified part of left lower leg with muscle involvement without evidence of necrosis (2) MRSA (methicillin resistant Staphylococcus aureus) infection: CODE(S): A49.02 - Methicillin resistant Staphylococcus aureus infection, unspecified site (3) History of incision and drainage: CODE(S): Z98.890 - Other specified postprocedural states (4) History of necrotizing fasciitis: CODE(S): Z87.39 - Personal history of other diseases of the musculoskeletal system and connective tissue (5) Borderline personality disorder: CODE(S): F60.3 - Borderline personality disorder PLAN: Plan Wound care - Thera-Skin #5 placed today. Expiration - 11/12/27 Product Lot Number - [id number]. Percent used - 100%. Saline Lot Number - [id number]. Size of Thera-Skin advanced skin substitute graft used - 39 cm2. Ther-Skin was secured with Dermabond. Skin prep was used surrounding the ulcer. Adaptic touch was placed over the product and secured with Steri-strips. Ulcer covered with ABD. She was instructed not to get her ulcer wet. She may change the outer dressing as needed but was instructed to not disturb anything below the wound veil. Compression - Single tubi-agricultural produce washer with JONAS wrap on left leg for compression. Wound Culture obtained 12/29/22 positive for Enterococcus faecalis, Corynebacterium amycolatum, and Staphylococcus epidermidis. Treated with Augmentin and Doxycycline. Wound culture obtained 01/28/23 which was positive for Enterococcus faecalis and Corynebacterium striatum. She completed Augmentin. A wound culture was obtained 04/05/23 which was positive for Staphylococcus epidermidis and Staphylococcus haemolyticus. She was treated with IV Vancomycin while she was hospitalized. Prealbumin 13.9 from 04/09/23. Encourage increase protein intake including supplemental protein shakes for her increased metabolic demands from the wounds. Wound culture from 07/05/23 was positive for Proteus mirabilis and MRSA. She was treated with Augmentin and Doxycycline. A wound culture was obtained on 06/17/23, which was positive for Proteus m irabilis, Enterococcus faecalis, and Corynebacterium striatum. She was started on Augmentin, which she was instructed to continue. Wound culture obtained 08/18/23 which was positive for Proteus mirabilis, Enterococcus faecalis and Corynebacterium striatum. She completed the Augmentin. She is doing well with her new job and states that she keeps her leg elevated when she is at home to help prevent the swelling. There is some redness inferiorly probably from drainage in the wound. Looks fungal. Will keep dry. I sent in a script for Diflucan. Prealbumin 13.9 from 04/09/23. Encourage nutritional supplementation with protein to help the healing process. Follow up in one week.
[2023-09-27 11:22] VITALS: BP 134/85; PULSE 96; RESP 20; TEMP 35.5; BMI 48.9
--- NOTE | 2023-09-27 12:09 | PCM.WC.PN ---
History of Present Illness Date of Service: 09/27/23 Chief Complaint: non-healing ulcer left medial leg History of Wound: Patient is a 22 year old female who presents to the wound healing center for evaluation and treatment of a nonhealing ulcer left medial leg. Patient is a poor historian. Reviewed notes from [facility], she had been admitted to [place] around 11/27/22 for cellulitis and worsening infection of her left lower leg. She ended having an I&D of her left medial leg, left lateral leg and left lateral thigh. She was diagnosed with necrotizing fasciitis. Her wound cultures were positive for Enterococcus and steno. Mycoplasma IGG and IgM (+). She was sent to [facility] on 2 weeks dapto, arthur, clinda, levaquin, and micafungin. Changed Dap to to Vanc. On 12/12 stopped vanc/levaquin/arthur and started IV fluc due to diagnosis of candidemia. She was discharged home from [facility] around the second week of December. She has a history of significant for depression, personality disorder, self harm, anxiety, asthma, recurrent cellulitis and ADHD and most recently Afib and tachycardia. She states that she did not cause these wounds and did not do anything to them to make them worse. She has a history of being accused of tampering with wounds. Surgery 04/07/23 - Surgical preparation left medial leg with incision and drainage and excisional debridement nonhealing infected MRSA ulcer, (126 cm2). Operative culture were negative but she was on Vancomycin and Fluconazole for positive cultures from 04/05/23 which were positive for MRSE and Staphylococcus haemolyticus. Wound culture obtained on 12/29/22 which was positive for Enterococcus faecalis, Corynebacterium amycolatum, and MRSE. She was treated with Augmentin and Doxycycline. Wound culture obtained 01/28/23 which was positive for Enterococcus faecalis and Corynebacterium striatum. She was started on Augmentin. Wound culture obtained 07/07/23 which was positive for Proteus mirabilis and MRSA. She was treated with Doxycycline and Augmentin. Wound culture obtained 08/18/23 which was positive for Proteus mirabilis, Enterococcus faecalis and Corynebacterium striatum. She completed the Augmentin. Left leg ultrasound obtained on 01/06/23 which showed There is no evidence of left lower extremity deep vein thrombosis. She was in [facility] for a week at the end of February for subcutaneous air around her wound. She states she cultured positive for MRSA and they had her on IV antibiotics. They used a wound VAC while she was in the hospital. She was placed on Doxycycline and has finished them. Wound Care - Thera-Skin placement #5. Today she denies fever, chills, nausea or vomiting. Progress of Wound: Improved with the placement of Thera-Skin #5 The redness inferiorly probably secondary to increased drainage on the skin has improved with more frequent dressing changes and she is on Diflucan for a few days. She states she is having increased pain at work, most likely from swelling. She has more edema, +2-+3 today. Objective Data Objective Data Vital Signs: Vital Signs Temp Pulse Resp BP O2 Del Method 95.9 F L 96 20 H 134/85 H Room Air 09/27/23 11:22 09/27/23 11:22 09/27/23 11:22 09/27/23 11:22 09/21/23 13:23 Oxygen Delivery Method Room Air Weight: 276 lb Body Mass Index (BMI) 48.9 Charges/Coding Procedures Integumentary 150xxx-152xx: 02012 Skin sub graft trnk/arm/leg (ICD-10 - L97.925, A49.02, Z98.890, Z87.39, F60.3) Add On Codes: 72798 Skin sub graft t/a/l add-on (ICD-10 - L97.925, A49.02, Z98.890, Z87.39, F60.3) Debridement Note Debridement Note Wound debrided: #5 left medial leg Laterality: Left Wound Grade/Stage: 3 Type of Debridement: Excisional debridement Anesthesia Used: 5% Lidocaine Gel Depth: Down to and including healthy tissue and in the subcutaneous layer Percentage of wound debrided: 100 Instrument Used: 7mm curette Tissue Removed: subcutaneous tissue Severity: Fat Layer Exposed Amount of bleeding with debridement: Mild Bleeding Controlled with: Pressure and Compression and gauze Patient tolerated procedure: Patient tolerated procedure well Debridement Free Text: Placement of Thera-Skin #6 today. Expiration - 11/12/27 Product Lot Number - [id number]. Percent used - 100%. Saline Lot Number - [id number]. Size of Thera-Skin advanced skin substitute graft used - 39 cm2. Post-Debridement Measurements and Additional Note: Post-Debridement Measurements/Treatment WC - Nurse 1 - General Ulcer Assessment Start: 09/13/23 11:14 Freq: Status: Active Protocol: BOBO Activity Type Activity Date Activity User E-sign Co-sign Detail Recorded Client Recorded Date Recorded By Document 09/13/23 11:14 KW Desktop 09/13/23 11:23 KW Document 09/21/23 13:23 KW Desktop 09/21/23 13:28 KW Document 09/27/23 11:22 DL Desktop 09/27/23 11:28 DL 09/13/23 09/21/23 09/27/23 11:14 13:23 11:22 WC - Today's Visit Information Type of service Follow-up Visit Follow-up Visit Follow-up Visit (Physician/GUEST RELATIONS ASSOCIATE (Physician/GUEST RELATIONS ASSOCIATE (Physician/GUEST RELATIONS ASSOCIATE ) ) ) Arrival Mode Ambulatory Ambulatory Ambulatory Transfer Assistance None Patient Identification Verified (Name & Yes Yes Yes ) Patient Requires Transmission-Based No Precautions Height and Weight Body Mass Index (BMI) 48.9 48.9 48.9 BMI Classification Obese Obese Obese Vital Signs Temperature (97.8 F-99.1 F) 96.0 F L 96.4 F L 95.9 F L Temperature Source Temporal Temporal Temporal Pulse Rate (60-100) 100 94 96 Pulse Location Monitor Monitor Monitor Respiratory Rate (12-18) 18 18 20 H Respiratory rate source Observation Observation Observation Oxygen Delivery Method Room Air Room Air Blood Pressure (90/60-120/80) 137/90 H 148/93 H 134/85 H Blood Pressure Mean (mm Hg) 105 111 101 Source Monitor Monitor Monitor Position Semi-Fowlers Semi-Fowlers Blood Pressure Location Left Forearm Left Arm History Since Last Visit- (Skip if this is Patient's initial visit) Have you changed medications since your No No No last visit? Any new allergies or adverse reactions No No No Had a fall/change in ADL's that may No No No increase risk of falls Signs or symptoms of abuse and/or No No No neglect since last visit Have you been in the hospital since your No No No last visit? Has dressing in place as prescribed Yes Yes Yes Has compression in place as prescribed Yes Yes Yes Has offloadiing in place as prescribed N/A N/A N/A Experienced any changes in pain level or No No No management Left Footwear Regular Shoe Regular Shoe Regular Shoe Right Footwear Regular Shoe Regular Shoe Regular Shoe Pain Scale: 0-10 Numeric Is Patient Pain Free? Yes Yes Yes WC - Nurse 1 - General Ulcer Measurement Start: 09/13/23 11:14 Freq: Status: Active Protocol: Activity Type Activity Date Activity User E-sign Co-sign Detail Recorded Client Recorded Date Recorded By Document 09/13/23 11:14 KW Desktop 09/13/23 11:23 KW Document 09/21/23 13:23 KW Desktop 09/21/23 13:28 KW Document 09/27/23 11:22 DL Desktop 09/27/23 11:28 DL 09/13/23 09/21/23 09/27/23 11:14 13:23 11:22 Wound Center Nurse 1 #5 L medial LE -Combined with other wound No -Current Size (cm) - Length 6 0.1 5.7 -Current Size (cm) - Width 7.5 0.1 8 -Current Size (cm) - Depth 0.1 0.1 0.1 -Total Square Cm 45.0 0.01 45.6 -Date of Last Picture (Recall this 09/13/23 field) -Photo Taken Yes -Epithelialization Small 1-33% -Tunneling No -Undermining/Tunneling No -Circular Undermining No -Exudate Amt Large Medium Large -Exudate Type Serosanguineous Serosanguineous Serosanguineous -Wound Margin Distinct, Distinct, Distinct, Outline Outline Outline Attached Attached Attached -Granulation Amt Large (67-100%) Medium (34-66%) -Granulation Quality Red Red -Slough/Fibrin Yes -Necrosis Amt Small (1-33%) Medium (34-66%) -Necrotic Tissue Type Adherent Slough Adherent Slough -Structure Exposed N/A -Texture (Brenna-wound Skin Appearance) Assessed, Assessed, Excoriation, Scarring Localized Edema Scarring,Rash -Moisture (Brenna-wound Skin Appearance) Assessed,Dry/ Assessed Weeping Scaly -Color (Brenna-wound Skin Appearance) Assessed Assessed, No Abnormality Erythema -Temperature (Brenna-wound Skin No Abnormality No Abnormality No Abnormality Appearance) (Pt Warm) (Pt Warm) (Pt Warm) -Tenderness on Palpation (Brenna-wound No Skin Appearance) -Ulcer Cleansing Soap and Water Soap and Water -Foul Odor after Cleansing No No No -Anesthetic Used 4% Lidocaine 4% Lidocaine Solution Solution -Wound Comment(s) Theraskin intact Lower Limb Edema Present Yes Left Calf (cm) 49 27.7 46.5 Left Ankle (cm) 30 47 28.6 WC - Nurse 2 - General Ulcer CM Notes Start: 09/13/23 11:14 Freq: Status: Active Protocol: Activity Type Activity Date Activity User E-sign Co-sign Detail Recorded Client Recorded Date Recorded By Document 09/13/23 12:17 PL [id number] 09/13/23 12:19 PL Edit Result 09/13/23 12:17 PL (1) [id number] 09/13/23 12:20 PL Document 09/21/23 13:58 JF Laptop 09/21/23 14:00 JF Document 09/27/23 11:43 JF Laptop 09/27/23 11:49 JF (1) #5 L medial LE - Dermabond => 1 09/13/23 09/21/23 09/27/23 12:17 13:58 11:43 Wound Center Nurse 2 #5 L medial LE -Time 11:45 13:59 11:48 -Correct Patient Yes Yes Yes -Correct Side, Site, Position Yes Yes Yes -Correct Procedure Yes Yes Yes -Procedure Performed Yes Yes Yes -Type of Procedure Debridement Debridement Debridement -Clinical Debridement Subcutaneous Subcutaneous Subcutaneous -Tissue Removed Subcutaneous Subcutaneous Subcutaneous -Post Debridement (cm) - Length 6.0 6.0 6.4 -Post Debridement (cm) - Width 8.0 7.5 7.1 -Post Debridement (cm) - Depth 0.1 0.1 0.1 -Total Square (Post) (cm) 48.00 45.00 45.44 -Area of Debridement (cm) - Length 6 6.0 6.4 -Area of Debridement (cm) - Width 8.0 7.5 7.1 -Total Square (Area) (cm) 48.0 45.00 45.44 -Tunneling No No No -Undermining/Tunneling No No No -Circular Undermining No No No -Wound/Ulcer Outcome Not Healed Not Healed Not Healed -Ulcer Cleansing Rinsed/ Rinsed/ Rinsed/ Irrigated with Irrigated with Irrigated with Saline Saline Saline -Foul Odor after Cleansing No No No -Bioengineered Tissue Yes Yes Yes -Type of Bioengineered Tissue Theraskin Theraskin Theraskin -Expiration Date 01/17/28 11/12/27 11/12/27 -Product Lot Number [id number] -Percent Used 100 100 100 -Lot number of Saline Used [id number] -Bleeding Controlled with Pressure Pressure -Treatment Response Procedure Procedure Tolerated Well Tolerated Well -Offloading No No -Debridement - Subq, 1st 20sq cm No No No -Apply Skin Sub - 1st 25 sq cm - Legs 1 1 1 -Apply Skin Sub - each addt'l 25 sq cm 1 1 1 - Legs -Dermabond 1 -Theraskin - 102TSL (39 SQ CM) (per sq 39 39 39 cm) Pain Scale: 0-10 Numeric Is Patient Pain Free? Yes Yes Yes - Nurse 3 - General Ulcer D/C NN Start: 09/13/23 11:14 Freq: Status: Active Protocol: Activity Type Activity Date Activity User E-sign Co-sign Detail Recorded Client Recorded Date Recorded By Document 09/13/23 12:06 KW Desktop 09/13/23 12:07 KW Document 09/21/23 14:14 RB Desktop 09/21/23 14:14 RB Document 09/27/23 12:01 KW Desktop 09/27/23 12:01 KW 09/13/23 09/21/23 09/27/23 12:06 14:14 12:01 Wound Care Center Nurse 3 #5 L medial LE -Other Dressing abd -Primary Dressing Covered/Secured with Dry Gauze & Dry Gauze & Dry Gauze & Roll Gauze, Roll Gauze, Roll Gauze, Secured with Secured with Secured with Tape Tape Tape Left -Compression Wrap Jonas Wrap Jonas Wrap -Tubular Bandage Single Layer Single Layer Single Layer -Size of Tubigrip Used Size F Size F Size F -Size F ($) 1 1 1 -Other jonas Treatment Response Procedure Tolerated Well Pain Scale: 0-10 Numeric Is Patient Pain Free? Yes Yes Yes - Visit Discharge Discharge Condition Stable Stable Stable Ambulatory Status Ambulatory Ambulatory Ambulatory Transportation Private Auto Private Auto Private Auto Medication Reconcilliation completed & No No No provided to patient/care provider Clinical Summary of Care Provided Yes Yes Yes Assessment/Plan Assessment/Plan (1) Ulcer of left lower extremity with muscle involvement without evidence of necrosis: CODE(S): L97.925 - Non-pressure chronic ulcer of unspecified part of left lower leg with muscle involvement without evidence of necrosis (2) MRSA (methicillin resistant Staphylococcus aureus) infection: CODE(S): A49.02 - Methicillin resistant Staphylococcus aureus infection, unspecified site (3) History of incision and drainage: CODE(S): Z98.890 - Other specified postprocedural states (4) History of necrotizing fasciitis: CODE(S): Z87.39 - Personal history of other diseases of the musculoskeletal system and connective tissue (5) Borderline personality disorder: CODE(S): F60.3 - Borderline personality disorder PLAN: Plan Wound care - Thera-Skin #6 placed today. Expiration - 11/12/27 Product Lot Number - [id number]. Percent used - 100%. Saline Lot Number - [id number]. Size of Thera-Skin advanced skin substitute graft used - 39 cm2. Ther-Skin was secured with Dermabond. Skin prep was used surrounding the ulcer. Adaptic touch was placed over the product and secured with Steri-strips. Ulcer covered with ABD. She was instructed not to get her ulcer wet. She may change the outer dressing as needed but was instructed to not disturb anything below the wound veil. 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 When she works, will change her tubigrip to a smaller size for more compression and support. Wound Culture obtained 12/29/22 positive for Enterococcus faecalis, Corynebacterium amycolatum, and Staphylococcus epidermidis. Treated with Augmentin and Doxycycline. Wound culture obtained 01/28/23 which was positive for Enterococcus faecalis and Corynebacterium striatum. She completed Augmentin. A wound culture was obtained 04/05/23 which was positive for Staphylococcus epidermidis and Staphylococcus haemolyticus. She was treated with IV Vancomycin while she was hospitalized. Prealbumin 13.9 from 04/09/23. Encourage increase protein intake including supplemental protein shakes for her increased metabolic demands from the wounds. Wound culture from 07/05/23 was positive for Proteus mirabilis and MRSA. She was treated with Augmentin and Doxycycline. A wound culture was obtained on 06/17/23, which was positive for Proteus mirabilis, Enterococcus faecalis, and Corynebacterium striatum. She was started on Augmentin, which she was instructed to continue. Wound culture obtained 08/18/23 which was positive for Proteus mirabilis, Enterococcus faecalis and Corynebacterium striatum. She completed the Augmentin. She is doing well with her new job and states that she keeps her leg elevated when she is at home to help prevent the swelling. The redness inferiorly probably from drainage in the wound, is improving. She is changing her outer dressing more frequently and is taking Diflucan. It clinically looks fungal in nature. Prealbumin 13.9 from 04/09/23. Encourage nutritional supplementation with protein to help the healing process. Follow up in one week.
[2023-10-04 11:14] VITALS: BP 135/85; PULSE 98; RESP 18; TEMP 36.4; BMI 48.9
--- NOTE | 2023-10-04 12:07 | PCM.WC.PN ---
History of Present Illness Date of Service: 10/04/23 Chief Complaint: non-healing ulcer left medial leg History of Wound: Patient is a 22 year old female who presents to the wound healing center for evaluation and treatment of a nonhealing ulcer left medial leg. Patient is a poor historian. Reviewed notes from [facility], she had been admitted to [place] around 11/27/22 for cellulitis and worsening infection of her left lower leg. She ended having an I&D of her left medial leg, left lateral leg and left lateral thigh. She was diagnosed with necrotizing fasciitis. Her wound cultures were positive for Enterococcus and steno. Mycoplasma IGG and IgM (+). She was sent to [facility] on 2 weeks dapto, arthur, clinda, levaquin, and micafungin. Changed Dap to to Vanc. On 12/12 stopped vanc/levaquin/arthur and started IV fluc due to diagnosis of candidemia. She was discharged home from [facility] around the second week of December. She has a history of significant for depression, personality disorder, self harm, anxiety, asthma, recurrent cellulitis and ADHD and most recently Afib and tachycardia. She states that she did not cause these wounds and did not do anything to them to make them worse. She has a history of being accused of tampering with wounds. Surgery 04/07/23 - Surgical preparation left medial leg with incision and drainage and excisional debridement nonhealing infected MRSA ulcer, (126 cm2). Operative culture were negative but she was on Vancomycin and Fluconazole for positive cultures from 04/05/23 which were positive for MRSE and Staphylococcus haemolyticus. Wound culture obtained on 12/29/22 which was positive for Enterococcus faecalis, Corynebacterium amycolatum, and MRSE. She was treated with Augmentin and Doxycycline. Wound culture obtained 01/28/23 which was positive for Enterococcus faecalis and Corynebacterium striatum. She was started on Augmentin. Wound culture obtained 07/07/23 which was positive for Proteus mirabilis and MRSA. She was treated with Doxycycline and Augmentin. Wound culture obtained 08/18/23 which was positive for Proteus mirabilis, Enterococcus faecalis and Corynebacterium striatum. She completed the Augmentin. Left leg ultrasound obtained on 01/06/23 which showed There is no evidence of left lower extremity deep vein thrombosis. She was in [facility] for a week at the end of February for subcutaneous air around her wound. She states she cultured positive for MRSA and they had her on IV antibiotics. They used a wound VAC while she was in the hospital. She was placed on Doxycycline and has finished them. Wound Care - Thera-Skin placement #6. Today she denies fever, chills, nausea or vomiting. Progress of Wound: Improved with the placement of Thera-Skin #6. The ulcer smaller with beefy pink wound bed. The redness inferiorly has resolved. Her edema has improved. She states that she wears double tubigrip and an JONAS wrap when she is at work. She has cut her hours so she isn't standing as much. Objective Data Objective Data Vital Signs: Vital Signs Temp Pulse Resp BP O2 Del Method 97.6 F L 98 18 135/85 H Room Air 10/04/23 11:14 10/04/23 11:14 10/04/23 11:14 10/04/23 11:14 10/04/23 11:14 Oxygen Delivery Method Room Air Weight: 276 lb Body Mass Index (BMI) 48.9 Charges/Coding Procedures Integumentary 150xxx-152xx: 38631 Skin sub graft trnk/arm/leg (ICD-10 - L97.925, A49.02, Z98.890, Z87.39, F60.3) Add On Codes: 33727 Skin sub graft t/a/l add-on (ICD-10 - L97.925, A49.02, Z98.890, Z87.39, F60.3) Debridement Note Debridement Note Wound debrided: #5 left medial leg Laterality: Left Wound Grade/Stage: 3 Type of Debridement: Excisional debridement Anesthesia Used: 5% Lidocaine Gel Depth: Down to and including healthy tissue and in the subcutaneous layer Percentage of wound debrided: 100 Instrument Used: 7mm curette Tissue Removed: subcutaneous tissue Severity: Fat Layer Exposed Amount of bleeding with debridement: Mild Bleeding Controlled with: Pressure and Compression and gauze Patient tolerated procedure: Patient tolerated procedure well Post-Debridement Measurements and Additional Note: Post-Debridement Measurements/Treatment STALIN - Nurse 1 - General Ulcer Assessment Start: 09/13/23 11:14 Freq: Status: Active Protocol: WC.LOWEXT Activity Type Activity Date Activity User E-sign Co-sign Detail Recorded Client Recorded Date Recorded By Document 09/13/23 11:14 KW Desktop 09/13/23 11:23 KW Document 09/21/23 13:23 KW Desktop 09/21/23 13:28 KW Document 09/27/23 11:22 DL Desktop 09/27/23 11:28 DL Document 10/04/23 11:14 BMF Desktop 10/04/23 11:22 BMF 09/13/23 09/21/23 09/27/23 11:14 13:23 11:22 WC - Today's Visit Information Type of service Follow-up Visit Follow-up Visit Follow-up Visit (Physician/ENGINEER (Physician/ENGINEER (Physician/ENGINEER ) ) ) Arrival Mode Ambulatory Ambulatory Ambulatory Transfer Assistance None Patient Identification Verified (Name & Yes Yes Yes ) Patient Requires Transmission-Based No Precautions Height and Weight Body Mass Index (BMI) 48.9 48.9 48.9 BMI Classification Obese Obese Obese Vital Signs Temperature (97.8 F-99.1 F) 96.0 F L 96.4 F L 95.9 F L Temperature Source Temporal Temporal Temporal Pulse Rate (60-100) 100 94 96 Pulse Location Monitor Monitor Monitor Respiratory Rate (12-18) 18 18 20 H Respiratory rate source Observation Observation Observation Oxygen Delivery Method Room Air Room Air Blood Pressure (90/60-120/80) 137/90 H 148/93 H 134/85 H Blood Pressure Mean (mm Hg) 105 111 101 Source Monitor Monitor Monitor Position Semi-Fowlers Semi-Fowlers Blood Pressure Location Left Forearm Left Arm History Since Last Visit- (Skip if this is Patient's initial visit) Have you changed medications since your No No No last visit? Any new allergies or adverse reactions No No No Had a fall/change in ADL's that may No No No increase risk of falls Signs or symptoms of abuse and/or No No No neglect since last visit Have you been in the hospital since your No No No last visit? Has dressing in place as prescribed Yes Yes Yes Has compression in place as prescribed Yes Yes Yes Has offloadiing in place as prescribed N/A N/A N/A Experienced any changes in pain level or No No No management Left Footwear Regular Shoe Regular Shoe Regular Shoe Right Footwear Regular Shoe Regular Shoe Regular Shoe Pain Scale: 0-10 Numeric Is Patient Pain Free? Yes Yes Yes 10/04/23 11:14 WC - Today's Visit Information Type of service Follow-up Visit (Physician/ENGINEER ) Arrival Mode Ambulatory Transfer Assistance None Patient Identification Verified (Name & No ) Patient Requires Transmission-Based No Precautions Height and Weight Body Mass Index (BMI) 48.9 BMI Classification Obese Vital Signs Temperature (97.8 F-99.1 F) 97.6 F L Temperature Source Temporal Pulse Rate (60-100) 98 Pulse Location Monitor Respiratory Rate (12-18) 18 Respiratory rate source Observation Oxygen Delivery Method Room Air Blood Pressure (90/60-120/80) 135/85 H Blood Pressure Mean (mm Hg) 101 Source Monitor Position Sitting Blood Pressure Location Left Forearm History Since Last Visit- (Skip if this is Patient's initial visit) Have you changed medications since your No last visit? Any new allergies or adverse reactions No Had a fall/change in ADL's that may No increase risk of falls Signs or symptoms of abuse and/or No neglect since last visit Have you been in the hospital since your No last visit? Has dressing in place as prescribed Yes Has compression in place as prescribed Yes Has offloadiing in place as prescribed N/A Experienced any changes in pain level or No management Left Footwear Regular Shoe Right Footwear Regular Shoe Pain Scale: 0-10 Numeric Is Patient Pain Free? No WC - Nurse 1 - General Ulcer Measurement Start: 09/13/23 11:14 Freq: Status: Active Protocol: Activity Type Activity Date Activity User E-sign Co-sign Detail Recorded Client Recorded Date Recorded By Document 09/13/23 11:14 KW Desktop 09/13/23 11:23 KW Document 09/21/23 13:23 KW Desktop 09/21/23 13:28 KW Document 09/27/23 11:22 DL Desktop 09/27/23 11:28 DL Document 10/04/23 11:14 BMF Desktop 10/04/23 11:22 BMF 09/13/23 09/21/23 09/27/23 11:14 13:23 11:22 Wound Center Nurse 1 #5 L medial LE -Combined with other wound No -Current Size (cm) - Length 6 0.1 5.7 -Current Size (cm) - Width 7.5 0.1 8 -Current Size (cm) - Depth 0.1 0.1 0.1 -Total Square Cm 45.0 0.01 45.6 -Date of Last Picture (Recall this 09/13/23 field) -Photo Taken Yes -Epithelialization Small 1-33% -Tunneling No -Undermining/Tunneling No -Circular Undermining No -Exudate Amt Large Medium Large -Exudate Type Serosanguineous Serosanguineous Serosanguineous -Wound Margin Distinct, Distinct, Distinct, Outline Outline Outline Attached Attached Attached -Granulation Amt Large (67-100%) Medium (34-66%) -Granulation Quality Red Red -Slough/Fibrin Yes -Necrosis Amt Small (1-33%) Medium (34-66%) -Necrotic Tissue Type Adherent Slough Adherent Slough -Structure Exposed N/A -Texture (Brenna-wound Skin Appearance) Assessed, Assessed, Excoriation, Scarring Localized Edema Scarring,Rash -Moisture (Brenna-wound Skin Appearance) Assessed,Dry/ Assessed Weeping Scaly -Color (Brenna-wound Skin Appearance) Assessed Assessed, No Abnormality Erythema -Temperature (Brenna-wound Skin No Abnormality No Abnormality No Abnormality Appearance) (Pt Warm) (Pt Warm) (Pt Warm) -Tenderness on Palpation (Brenna-wound No Skin Appearance) -Ulcer Cleansing Soap and Water Soap and Water -Foul Odor after Cleansing No No No -Anesthetic Used 4% Lidocaine 4% Lidocaine Solution Solution -Wound Comment(s) Theraskin intact Lower Limb Edema Present Yes Right Calf (cm) Right Ankle (cm) Left Calf (cm) 49 27.7 46.5 Left Ankle (cm) 30 47 28.6 10/04/23 11:14 Wound Center Nurse 1 #5 L medial LE -Combined with other wound No -Current Size (cm) - Length 5.4 -Current Size (cm) - Width 6.3 -Current Size (cm) - Depth 0.1 -Total Square Cm 34.02 -Date of Last Picture (Recall this 10/04/23 field) -Photo Taken Yes -Epithelialization Small 1-33% -Tunneling No -Undermining/Tunneling No -Circular Undermining No -Exudate Amt Medium -Exudate Type Serosanguineous -Wound Margin Distinct, Outline Attached -Granulation Amt Large (67-100%) -Granulation Quality Hyper- granulation,Red -Slough/Fibrin No -Necrosis Amt None Present (0 %) -Necrotic Tissue Type -Structure Exposed -Texture (Brenna-wound Skin Appearance) Assessed, Scarring -Moisture (Brenna-wound Skin Appearance) Assessed -Color (Brenna-wound Skin Appearance) Assessed -Temperature (Brenna-wound Skin No Abnormality Appearance) (Pt Warm) -Tenderness on Palpation (Brenna-wound No Skin Appearance) -Ulcer Cleansing Soap and Water -Foul Odor after Cleansing No -Anesthetic Used 5% Lidocaine Gel -Wound Comment(s) Lower Limb Edema Present Yes Right Calf (cm) 45.1 Right Ankle (cm) 27.8 Left Calf (cm) Left Ankle (cm) WC - Nurse 2 - General Ulcer CM Notes Start: 09/13/23 11:14 Freq: Status: Active Protocol: Activity Type Activity Date Activity User E-sign Co-sign Detail Recorded Client Recorded Date Recorded By Document 09/13/23 12:17 PL [id number] 09/13/23 12:19 PL Edit Result 09/13/23 12:17 PL (1) [id number] 09/13/23 12:20 PL Document 09/21/23 13:58 JF Laptop 09/21/23 14:00 JF Document 09/27/23 11:43 JF Laptop 09/27/23 11:49 JF Document 10/04/23 11:28 JF Laptop 10/04/23 11:41 JF (1) #5 L medial LE - Dermabond => 1 09/13/23 09/21/23 09/27/23 12:17 13:58 11:43 Wound Center Nurse 2 #5 L medial LE -Time 11:45 13:59 11:48 -Correct Patient Yes Yes Yes -Correct Side, Site, Position Yes Yes Yes -Correct Procedure Yes Yes Yes -Procedure Performed Yes Yes Yes -Type of Procedure Debridement Debridement Debridement -Clinical Debridement Subcutaneous Subcutaneous Subcutaneous -Tissue Removed Subcutaneous Subcutaneous Subcutaneous -Post Debridement (cm) - Length 6.0 6.0 6.4 -Post Debridement (cm) - Width 8.0 7.5 7.1 -Post Debridement (cm) - Depth 0.1 0.1 0.1 -Total Square (Post) (cm) 48.00 45.00 45.44 -Area of Debridement (cm) - Length 6 6.0 6.4 -Area of Debridement (cm) - Width 8.0 7.5 7.1 -Total Square (Area) (cm) 48.0 45.00 45.44 -Tunneling No No No -Undermining/Tunneling No No No -Circular Undermining No No No -Wound/Ulcer Outcome Not Healed Not Healed Not Healed -Ulcer Cleansing Rinsed/ Rinsed/ Rinsed/ Irrigated with Irrigated with Irrigated with Saline Saline Saline -Foul Odor after Cleansing No No No -Bioengineered Tissue Yes Yes Yes -Type of Bioengineered Tissue Theraskin Theraskin Theraskin -Expiration Date 01/17/28 11/12/27 11/12/27 -Product Lot Number [id number] -Percent Used 100 100 100 -Lot number of Saline Used [id number] -Bleeding Controlled with Pressure Pressure -Treatment Response Procedure Procedure Tolerated Well Tolerated Well -Offloading No No -Debridement - Subq, 1st 20sq cm No No No -Apply Skin Sub - 1st 25 sq cm - Legs 1 1 1 -Apply Skin Sub - each addt'l 25 sq cm 1 1 1 - Legs -Dermabond 1 -Theraskin - 101TSS (13 SQ CM) (per sq cm) -Theraskin - 102TSL (39 SQ CM) (per sq 39 39 39 cm) -Wound Comment(s) Pain Scale: 0-10 Numeric Is Patient Pain Free? Yes Yes Yes 10/04/23 11:28 Wound Center Nurse 2 #5 L medial LE -Time 11:35 -Correct Patient Yes -Correct Side, Site, Position Yes -Correct Procedure Yes -Procedure Performed Yes -Type of Procedure Debridement -Clinical Debridement Subcutaneous -Tissue Removed Subcutaneous -Post Debridement (cm) - Length 5 -Post Debridement (cm) - Width 6.5 -Post Debridement (cm) - Depth 0.1 -Total Square (Post) (cm) 32.5 -Area of Debridement (cm) - Length 5 -Area of Debridement (cm) - Width 6.5 -Total Square (Area) (cm) 32.5 -Tunneling No -Undermining/Tunneling No -Circular Undermining No -Wound/Ulcer Outcome Not Healed -Ulcer Cleansing Rinsed/ Irrigated with Saline -Foul Odor after Cleansing No -Bioengineered Tissue Yes -Type of Bioengineered Tissue Theraskin -Expiration Date 11/17/27 -Product Lot Number [id number] -Percent Used 100 -Lot number of Saline Used [id number] -Bleeding Controlled with Pressure -Treatment Response Procedure Tolerated Well -Offloading No -Debridement - Subq, 1st 20sq cm No -Apply Skin Sub - 1st 25 sq cm - Legs 1 -Apply Skin Sub - each addt'l 25 sq cm 1 - Legs -Dermabond -Theraskin - 101TSS (13 SQ CM) (per sq 26 cm) -Theraskin - 102TSL (39 SQ CM) (per sq cm) -Wound Comment(s) second Theraskin applied, ID: [id number] 100 used, saline lot # [id number] exp . Pain Scale: 0-10 Numeric Is Patient Pain Free? Yes - Nurse 3 - General Ulcer D/C NN Start: 09/13/23 11:14 Freq: Status: Active Protocol: Activity Type Activity Date Activity User E-sign Co-sign Detail Recorded Client Recorded Date Recorded By Document 09/13/23 12:06 KW Desktop 09/13/23 12:07 KW Document 09/21/23 14:14 RB Desktop 09/21/23 14:14 RB Document 09/27/23 12:01 KW Desktop 09/27/23 12:01 KW Document 10/04/23 11:52 KW Desktop 10/04/23 11:52 KW 09/13/23 09/21/23 09/27/23 12:06 14:14 12:01 Wound Care Center Nurse 3 #5 L medial LE -Other Dressing abd -Primary Dressing Covered/Secured with Dry Gauze & Dry Gauze & Dry Gauze & Roll Gauze, Roll Gauze, Roll Gauze, Secured with Secured with Secured with Tape Tape Tape Left -Compression Wrap Jonas Wrap Jonas Wrap -Tubular Bandage Single Layer Single Layer Single Layer -Size of Tubigrip Used Size F Size F Size F -Size E ($) -Size F ($) 1 1 1 -Other joans Treatment Response Procedure Tolerated Well Pain Scale: 0-10 Numeric Is Patient Pain Free? Yes Yes Yes WC - Visit Discharge Discharge Condition Stable Stable Stable Ambulatory Status Ambulatory Ambulatory Ambulatory Transportation Private Auto Private Auto Private Auto Medication Reconcilliation completed & No No No provided to patient/care provider Clinical Summary of Care Provided Yes Yes Yes 10/04/23 11:52 Wound Care Center Nurse 3 #5 L medial LE -Other Dressing -Primary Dressing Covered/Secured with Dry Gauze & Roll Gauze, Secured with Tape Left -Compression Wrap -Tubular Bandage Double Layer -Size of Tubigrip Used Size E -Size E ($) 2 -Size F ($) -Other Treatment Response Pain Scale: 0-10 Numeric Is Patient Pain Free? Yes WC - Visit Discharge Discharge Condition Stable Ambulatory Status Ambulatory Transportation Private Auto Medication Reconcilliation completed & No provided to patient/care provider Clinical Summary of Care Provided Yes Assessment/Plan Assessment/Plan (1) Ulcer of left lower extremity with muscle involvement without evidence of necrosis: CODE(S): L97.925 - Non-pressure chronic ulcer of unspecified part of left lower leg with muscle involvement without evidence of necrosis (2) MRSA (methicillin resistant Staphylococcus aureus) infection: CODE(S): A49.02 - Methicillin resistant Staphylococcus aureus infection, unspecified site (3) History of incision and drainage: CODE(S): Z98.890 - Other specified postprocedural states (4) History of necrotizing fasciitis: CODE(S): Z87.39 - Personal history of other diseases of the musculoskeletal system and connective tissue (5) Borderline personality disorder: CODE(S): F60.3 - Borderline personality disorder PLAN: Plan Wound care - Thera-Skin #7 placed today. Expiration - 11/17/27 Product Lot Number - [id number]. Percent used - 100%. Saline Lot Number - [id number]. Second Theraskin applied Product Lot Number - [id number]. Percent used - 100%. Size of Thera-Skin advanced skin substitute graft used total - 26 cm2. Ther-Skin was secured with Dermabond. Skin prep was used surrounding the ulcer. Adaptic touch was placed over the product and secured with Steri-strips. Ulcer covered with ABD. She was instructed not to get her ulcer wet. She may change the outer dressing as needed but was instructed to not disturb anything below the wound veil. Compression - Single tubi-returner with JONAS wrap on left leg for compression. When she works, will change her tubigrip to a smaller size for more compression and support. Wound Culture obtained 12/29/22 positive for Enterococcus faecalis, Corynebacterium amycolatum, and Staphylococcus epidermidis. Treated with Augmentin and Doxycycline. Wound culture obtained 01/28/23 which was positive for Enterococcus faecalis and Corynebacterium striatum. She completed Augmentin. A wound culture was obtained 04/05/23 which was positive for Staphylococcus epidermidis and Staphylococcus haemolyticus. She was treated with IV Vancomycin while she was hospitalized. Prealbumin 13.9 from 04/09/23. Encourage increase protein intake including supplemental protein shakes for her increased metabolic demands from the wounds. Wound culture from 07/05/23 was positive for Proteus mirabilis and MRSA. She was treated with Augmentin and Doxycycline. A wound culture was obtained on 06/17/23, which was positive for Proteus mirabilis, Enterococcus faecalis, and Corynebacterium striatum. She was started on Augmentin, which she was instructed to continue. Wound culture obtained 08/18/23 which was positive for Proteus mirabilis, Enterococcus faecalis and Corynebacterium striatum. She completed the Augmentin. She is doing well with her new job and states that she keeps her leg elevated when she is at home to help prevent the swelling. Prealbumin 13.9 from 04/09/23. Encourage nutritional supplementation with protein to help the healing process. Follow up in one week.
== END 2023-10-07 23:59 | disposition home or self-care (01) ==
LOC: WC 11:15
PROVIDERS: PCP Student in an Organized Health Care Education/Training Program; Referring Provider Student in an Organized Health Care Education/Training Program; Visit Provider Nurse Practitioner Family
DX: L97.925 Non-pressure chronic ulcer of unspecified part of left lower leg with muscle involvement without evidence of necrosis (principal); M72.6 Necrotizing fasciitis; F60.3 Borderline personality disorder; Z87.39 Personal history of other diseases of the musculoskeletal system and connective tissue; Z98.890 Other specified postprocedural states; A49.02 Methicillin resistant Staphylococcus aureus infection, unspecified site
CPT/HCPCS: 15271; 15272; Q4121

== ENCOUNTER 2023-10-06 09:00 | Outpatient (RCR) | payer MEDICAID, SELFPAY | END 2023-10-07 23:59 | LOC: NS 09:00 | PROVIDERS: PCP Student in an Organized Health Care Education/Training Program; Referring Provider Student in an Organized Health Care Education/Training Program; Visit Provider Student in an Organized Health Care Education/Training Program | DX: Z71.3 Dietary counseling and surveillance (principal) | CPT/HCPCS: 97802; 97803 ==

== ENCOUNTER 2023-10-19 08:53 | Outpatient (RCR) | payer MEDICAID, SELFPAY | END 2023-11-07 23:59 | LOC: NS 08:53 | PROVIDERS: PCP Student in an Organized Health Care Education/Training Program; Referring Provider Student in an Organized Health Care Education/Training Program; Visit Provider Student in an Organized Health Care Education/Training Program | DX: Z71.3 Dietary counseling and surveillance (principal); E66.9 Obesity, unspecified; Z68.43 Body mass index [BMI] 50.0-59.9, adult | CPT/HCPCS: 97803 ==

== ENCOUNTER 2023-10-25 11:15 | Outpatient (RCR) | payer MEDICAID, SELFPAY ==
[2023-10-08 00:38] VITALS: BP 135/85; PULSE 98; RESP 18; TEMP 36.4; BMI 48.9
[2023-10-11 11:39] VITALS: BP 144/89; PULSE 91; RESP 18; TEMP 35.8; BMI 48.9
--- NOTE | 2023-10-11 13:38 | PCM.WC.PN ---
History of Present Illness Date of Service: 10/11/23 Chief Complaint: non-healing ulcer left medial leg History of Wound: Patient is a 23 year old female who presents to the wound healing center for evaluation and treatment of a nonhealing ulcer left medial leg. Patient is a poor historian. Reviewed notes from [facility], she had been admitted to [facility] around 11/27/22 for cellulitis and worsening infection of her left lower leg. She ended having an I&D of her left medial leg, left lateral leg and left lateral thigh. She was diagnosed with necrotizing fasciitis. Her wound cultures were positive for Enterococcus and steno. Mycoplasma IGG and IgM (+). She was sent to [facility] on 2 weeks dapto, arthur, clinda, levaquin, and micafungin. Changed Dap to to Vanc. On 12/12 stopped vanc/levaquin/arthur and started IV fluc due to diagnosis of candidemia. She was discharged home from [facility] around the second week of December. She has a history of significant for depression, personality disorder, self harm, anxiety, asthma, recurrent cellulitis and ADHD and most recently Afib and tachycardia. She states that she did not cause these wounds and did not do anything to them to make them worse. She has a history of being accused of tampering with wounds. Surgery 04/07/23 - Surgical preparation left medial leg with incision and drainage and excisional debridement nonhealing infected MRSA ulcer, (126 cm2). Operative culture were negative but she was on Vancomycin and Fluconazole for positive cultures from 04/05/23 which were positive for MRSE and Staphylococcus haemolyticus. Wound culture obtained on 12/29/22 which was positive for Enterococcus faecalis, Corynebacterium amycolatum, and MRSE. She was treated with Augmentin and Doxycycline. Wound culture obtained 01/28/23 which was positive for Enterococcus faecalis and Corynebacterium striatum. She was started on Augmentin. Wound culture obtained 07/07/23 which was positive for Proteus mirabilis and MRSA. She was treated with Doxycycline and Augmentin. Wound culture obtained 08/18/23 which was positive for Proteus mirabilis, Enterococcus faecalis and Corynebacterium striatum. She completed the Augmentin. Left leg ultrasound obtained on 01/06/23 which showed There is no evidence of left lower extremity deep vein thrombosis. She was in [facility] for a week at the end of February for subcutaneous air around her wound. She states she cultured positive for MRSA and they had her on IV antibiotics. They used a wound VAC while she was in the hospital. She was placed on Doxycycline and has finished them. Wound Care - Thera-Skin placement #7 last week. Today she denies fever, chills, nausea or vomiting. Progress of Wound: Improved with the placement of Thera-Skin #7. The ulcer is visibly smaller with beefy pink wound bed. The periwound is stable. She has a small ulceration on the proximal edge of the ulcer that we have started to place aquacel-ag daily on. Her edema is +1-+2. She states that she wears double tubigrip when she is at work. She has cut her hours so she isn't standing as much. Objective Data Objective Data Vital Signs: Vital Signs Temp Pulse Resp BP O2 Del Method 96.5 F L 91 18 144/89 H Room Air 10/11/23 11:39 10/11/23 11:39 10/11/23 11:39 10/11/23 11:39 10/11/23 11:39 Oxygen Delivery Method Room Air Weight: 276 lb Body Mass Index (BMI) 48.9 Charges/Coding Procedures Integumentary 150xxx-152xx: 68556 Skin sub graft trnk/arm/leg (ICD-10 - L97.925, A49.02, Z98.890, Z87.39, F60.3) Add On Codes: 05053 Skin sub graft t/a/l add-on (ICD-10 - L97.925, A49.02, Z98.890, Z87.39, F60.3) Debridement Note Debridement Note Wound debrided: #5 left medial leg Laterality: Left Wound Grade/Stage: 3 Type of Debridement: Excisional debridement Anesthesia Used: 5% Lidocaine Gel Depth: Down to and including healthy tissue and in the subcutaneous layer Percentage of wound debrided: 100 Instrument Used: 7mm curette Tissue Removed: subcutaneous tissue Severity: Fat Layer Exposed Amount of bleeding with debridement: Mild Bleeding Controlled with: Compression and gauze Patient tolerated procedure: Patient tolerated procedure well Post-Debridement Measurements and Additional Note: Post-Debridement Measurements/Treatment WC - Nurse 1 - General Ulcer Assessment Start: 10/11/23 11:33 Freq: Status: Active Protocol: BOBO Activity Type Activity Date Activity User E-sign Co-sign Detail Recorded Client Recorded Date Recorded By Document 10/11/23 11:39 KW [employer] 10/11/23 11:41 KW 10/11/23 11:39 - Today's Visit Information Type of service 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 ) Arrival Mode Ambulatory Patient Identification Verified (Name & Yes ) Height and Weight Body Mass Index (BMI) 48.9 BMI Classification Obese Vital Signs Temperature (97.8 F-99.1 F) 96.5 F L Temperature Source Temporal Pulse Rate (60-100) 91 Pulse Location Monitor Respiratory Rate (12-18) 18 Respiratory rate source Observation Oxygen Delivery Method Room Air Blood Pressure (90/60-120/80) 144/89 H Blood Pressure Mean (mm Hg) 107 Source Monitor Position Semi-Fowlers Blood Pressure Location Left Arm History Since Last Visit- (Skip if this is Patient's initial visit) Have you changed medications since your No last visit? Any new allergies or adverse reactions No Had a fall/change in ADL's that may No increase risk of falls Signs or symptoms of abuse and/or No neglect since last visit Have you been in the hospital since your No last visit? Has dressing in place as prescribed Yes Has compression in place as prescribed Yes Has offloadiing in place as prescribed N/A Experienced any changes in pain level or No management Left Footwear Regular Shoe Right Footwear Regular Shoe Pain Scale: 0-10 Numeric Is Patient Pain Free? Yes - Nurse 1 - General Ulcer Measurement Start: 10/11/23 11:33 Freq: Status: Active Protocol: Activity Type Activity Date Activity User E-sign Co-sign Detail Recorded Client Recorded Date Recorded By Document 10/11/23 11:39 KW [employer] 10/11/23 11:41 KW 10/11/23 11:39 Wound Center Nurse 1 #5 L medial LE -Current Size (cm) - Length 6.8 -Current Size (cm) - Width 5.3 -Current Size (cm) - Depth 0.2 -Total Square Cm 36.04 -Exudate Amt Large -Exudate Type Serosanguineous -Wound Margin Distinct, Outline Attached -Granulation Amt Large (67-100%) -Granulation Quality Red -Texture (Brenna-wound Skin Appearance) Assessed -Moisture (Brenna-wound Skin Appearance) Maceration -Color (Brenna-wound Skin Appearance) Assessed, Erythema -Temperature (Brenna-wound Skin No Abnormality Appearance) (Pt Warm) -Ulcer Cleansing Soap and Water -Foul Odor after Cleansing No -Anesthetic Used 4% Lidocaine Solution Left Calf (cm) 45.5 Left Ankle (cm) 27.5 - Nurse 2 - General Ulcer CM Notes Start: 10/11/23 11:33 Freq: Status: Active Protocol: Activity Type Activity Date Activity User E-sign Co-sign Detail Recorded Client Recorded Date Recorded By Document 10/11/23 12:18 Laptop 10/11/23 12:20 10/11/23 12:18 Wound Center Nurse 2 #5 L medial LE -Time 12:18 -Correct Patient Yes -Correct Side, Site, Position Yes -Correct Procedure Yes -Procedure Performed Yes -Type of Procedure Debridement -Clinical Debridement Subcutaneous -Tissue Removed Subcutaneous -Post Debridement (cm) - Length 4.4 -Post Debridement (cm) - Width 6.5 -Post Debridement (cm) - Depth 0.1 -Total Square (Post) (cm) 28.60 -Area of Debridement (cm) - Length 4.4 -Area of Debridement (cm) - Width 6.5 -Total Square (Area) (cm) 28.60 -Tunneling No -Undermining/Tunneling No -Circular Undermining No -Wound/Ulcer Outcome Not Healed -Ulcer Cleansing Rinsed/ Irrigated with Saline -Foul Odor after Cleansing No -Bioengineered Tissue Yes -Type of Bioengineered Tissue Theraskin -Expiration Date 06/23/27 -Product Lot Number [id number] -Percent Used 100 -Lot number of Saline Used [id number] -Bleeding Controlled with Pressure -Treatment Response Procedure Tolerated Well -Offloading No -Debridement - Subq, 1st 20sq cm No -Apply Skin Sub - 1st 25 sq cm - Legs 1 -Apply Skin Sub - each addt'l 25 sq cm 1 - Legs -Theraskin - 26TS (26 SQ CM) (per sq 26 cm) Pain Scale: 0-10 Numeric Is Patient Pain Free? Yes - Nurse 3 - General Ulcer D/C NN Start: 10/11/23 11:33 Freq: Status: Active Protocol: Activity Type Activity Date Activity User E-sign Co-sign Detail Recorded Client Recorded Date Recorded By Document 10/11/23 12:26 Laptop 10/11/23 12:26 10/11/23 12:26 Wound Care Center Nurse 3 #5 L medial LE -Ulcer Cleansing Rinsed/ Irrigated with Saline -Foul Odor after Cleansing No -Primary Dressing Covered/Secured with Dry Gauze & Roll Gauze, Secured with Tape Right -Compression Wrap Jonas Wrap Pain Scale: 0-10 Numeric Is Patient Pain Free? Yes WC - Visit Discharge Discharge Condition Stable Ambulatory Status Ambulatory Transportation Private Auto Assessment/Plan Assessment/Plan (1) Ulcer of left lower extremity with muscle involvement without evidence of necrosis: CODE(S): L97.925 - Non-pressure chronic ulcer of unspecified part of left lower leg with muscle involvement without evidence of necrosis (2) MRSA (methicillin resistant Staphylococcus aureus) infection: CODE(S): A49.02 - Methicillin resistant Staphylococcus aureus infection, unspecified site (3) History of incision and drainage: CODE(S): Z98.890 - Other specified postprocedural states (4) History of necrotizing fasciitis: CODE(S): Z87.39 - Personal history of other diseases of the musculoskeletal system and connective tissue (5) Borderline personality disorder: CODE(S): F60.3 - Borderline personality disorder PLAN: Plan Wound care - Thera-Skin #8 placed today. Expiration - 06/23/27 Product Lot Number - [id number] Percent used - 100%. Saline Lot Number - [id number]. Size of Thera-Skin advanced skin substitute graft used total - 26 cm2. Ther-Skin was secured with Dermabond. Skin prep was used surrounding the ulcer. Adaptic touch was placed over the product and secured with Steri-strips. Ulcer covered with ABD. She was instructed not to get her ulcer wet. She may change the outer dressing daily or every other day and as needed, but was instructed to not disturb anything below the wound veil. She has a small ulceration on the proximal edge of the ulcer that is not covered with Theraskin. Will have her place Aquacel-Ag on this area when she changes her outer dressing. 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 When she works, will change her tubigrip to a smaller size for more compression and support. Wound Culture obtained 12/29/22 positive for Enterococcus faecalis, Corynebacterium amycolatum, and Staphylococcus epidermidis. Treated with Augmentin and Doxycycline. Wound culture obtained 01/28/23 which was positive for Enterococcus faecalis and Corynebacterium striatum. She completed Augmentin. A wound culture was obtained 04/05/23 which was positive for Staphylococcus epidermidis and Staphylococcus haemolyticus. She was treated with IV Vancomycin while she was hospitalized. Prealbumin 13.9 from 04/09/23. Encourage increase protein intake including supplemental protein shakes for her increased metabolic demands from the wounds. Wound culture from 07/05/23 was positive for Proteus mirabilis and MRSA. She was treated with Augmentin and Doxycycline. A wound culture was obtained on 06/17/23, which was positive for Proteus mirabilis, Enterococcus faecalis, and Corynebacterium striatum. She was started on Augmentin, which she was instructed to continue. Wound culture obtained 08/18/23 which was positive for Proteus mirabilis, Enterococcus faecalis and Corynebacterium striatum. She completed the Augmentin. She is doing well with her new job and states that she keeps her leg elevated when she is at home to help prevent the swelling. Prealbumin 13.9 from 04/09/23. Encourage nutritional supplementation with protein to help the healing process. Follow up in one week.
[2023-10-18 11:08] VITALS: BP 124/90; PULSE 99; RESP 18; BMI 48.9
--- NOTE | 2023-10-18 12:01 | PCM.WC.PN ---
History of Present Illness Date of Service: 10/18/23 Chief Complaint: non-healing ulcer left medial leg History of Wound: Patient is a 23 year old female who presents to the wound healing center for evaluation and treatment of a nonhealing ulcer left medial leg. Patient is a poor historian. Reviewed notes from [facility], she had been admitted to [facility] around 11/27/22 for cellulitis and worsening infection of her left lower leg. She ended having an I&D of her left medial leg, left lateral leg and left lateral thigh. She was diagnosed with necrotizing fasciitis. Her wound cultures were positive for Enterococcus and steno. Mycoplasma IGG and IgM (+). She was sent to [facility] on 2 weeks dapto, arthur, clinda, levaquin, and micafungin. Changed Dap to to Vanc. On 12/12 stopped vanc/levaquin/arthur and started IV fluc due to diagnosis of candidemia. She was discharged home from [facility] around the second week of December. She has a history of significant for depression, personality disorder, self harm, anxiety, asthma, recurrent cellulitis and ADHD and most recently Afib and tachycardia. She states that she did not cause these wounds and did not do anything to them to make them worse. She has a history of being accused of tampering with wounds. Surgery 04/07/23 - Surgical preparation left medial leg with incision and drainage and excisional debridement nonhealing infected MRSA ulcer, (126 cm2). Operative culture were negative but she was on Vancomycin and Fluconazole for positive cultures from 04/05/23 which were positive for MRSE and Staphylococcus haemolyticus. Wound culture obtained on 12/29/22 which was positive for Enterococcus faecalis, Corynebacterium amycolatum, and MRSE. She was treated with Augmentin and Doxycycline. Wound culture obtained 01/28/23 which was positive for Enterococcus faecalis and Corynebacterium striatum. She was started on Augmentin. Wound culture obtained 07/07/23 which was positive for Proteus mirabilis and MRSA. She was treated with Doxycycline and Augmentin. Wound culture obtained 08/18/23 which was positive for Proteus mirabilis, Enterococcus faecalis and Corynebacterium striatum. She completed the Augmentin. Left leg ultrasound obtained on 01/06/23 which showed There is no evidence of left lower extremity deep vein thrombosis. She was in [facility] for a week at the end of February for subcutaneous air around her wound. She states she cultured positive for MRSA and they had her on IV antibiotics. They used a wound VAC while she was in the hospital. She was placed on Doxycycline and has finished them. Wound Care - Thera-Skin placement #9 last week. Today she denies fever, chills, nausea or vomiting. Progress of Wound: Improved with the placement of Thera-Skin #8. The ulcer is visibly smaller with beefy pink wound bed. The periwound is stable. She has a small ulceration on the proximal edge of the ulcer that we are placing aquacel-ag daily on. It is beefy pink and stable in size. Her edema is +1-+2. She states that she wears single tubigrip and an JONAS wrap, especially when she is at work. Objective Data Objective Data Vital Signs: Vital Signs Temp Pulse Resp BP O2 Del Method 96.5 F L 99 18 124/90 H Room Air 10/11/23 11:39 10/18/23 11:08 10/18/23 11:08 10/18/23 11:08 10/18/23 11:08 Oxygen Delivery Method Room Air Weight: 276 lb Body Mass Index (BMI) 48.9 Charges/Coding Procedures Integumentary 150xxx-152xx: 64015 Skin sub graft trnk/arm/leg (ICD-10 - L97.925, A49.02, Z98.890, Z87.39, F60.3) Multi Select Codes Integumentary Integumentary CPT Codes: 89658 Stephany subq tissue 20 sq cm/< (Left superior leg ulcer) Debridement Note Debridement Note Wound debrided: #5 left medial leg Laterality: Left Wound Grade/Stage: 3 Type of Debridement: Excisional debridement Anesthesia Used: 5% Lidocaine Gel Depth: Down to and including healthy tissue and in the subcutaneous layer Percentage of wound debrided: 100 Instrument Used: 7mm curette Tissue Removed: subcutaneous tissue Severity: Fat Layer Exposed Amount of bleeding with debridement: Mild Bleeding Controlled with: Compression and gauze Patient tolerated procedure: Patient tolerated procedure well Post-Debridement Measurements and Additional Note: Post-Debridement Measurements/Treatment STALIN - Nurse 1 - General Ulcer Assessment Start: 10/11/23 11:33 Freq: Status: Active Protocol: BOBO Activity Type Activity Date Activity User E-sign Co-sign Detail Recorded Client Recorded Date Recorded By Document 10/11/23 11:39 KW Desktop 10/11/23 11:41 KW Document 10/18/23 11:08 KW Desktop 10/18/23 11:16 KW 10/11/23 10/18/23 11:39 11:08 - Today's Visit Information Type of service Follow-up Visit Follow-up Visit (Physician/REGIONAL SALES ASSOCIATE (Physician/REGIONAL SALES ASSOCIATE ) ) Arrival Mode Ambulatory Ambulatory Patient Identification Verified (Name & Yes Yes ) Height and Weight Body Mass Index (BMI) 48.9 48.9 BMI Classification Obese Obese Vital Signs Temperature (97.8 F-99.1 F) 96.5 F L Temperature Source Temporal Pulse Rate (60-100) 91 99 Pulse Location Monitor Monitor Respiratory Rate (12-18) 18 18 Respiratory rate source Observation Observation Oxygen Delivery Method Room Air Room Air Blood Pressure (90/60-120/80) 144/89 H 124/90 H Blood Pressure Mean (mm Hg) 107 101 Source Monitor Monitor Position Semi-Fowlers Sitting Blood Pressure Location Left Arm Left Forearm History Since Last Visit- (Skip if this is Patient's initial visit) Have you changed medications since your No Yes last visit? Any new allergies or adverse reactions No No Had a fall/change in ADL's that may No No increase risk of falls Signs or symptoms of abuse and/or No No neglect since last visit Have you been in the hospital since your No No last visit? Has dressing in place as prescribed Yes Yes Has compression in place as prescribed Yes Yes Has offloadiing in place as prescribed N/A No Experienced any changes in pain level or No No management Left Footwear Regular Shoe Regular Shoe Right Footwear Regular Shoe Regular Shoe Pain Scale: 0-10 Numeric Is Patient Pain Free? Yes Yes - Nurse 1 - General Ulcer Measurement Start: 10/11/23 11:33 Freq: Status: Active Protocol: Activity Type Activity Date Activity User E-sign Co-sign Detail Recorded Client Recorded Date Recorded By Document 10/11/23 11:39 KW Desktop 10/11/23 11:41 KW Document 10/18/23 11:08 KW Desktop 10/18/23 11:16 KW 10/11/23 10/18/23 11:39 11:08 Wound Center Nurse 1 #5 L medial LE -Current Size (cm) - Length 6.8 6 -Current Size (cm) - Width 5.3 5.2 -Current Size (cm) - Depth 0.2 0.1 -Total Square Cm 36.04 31.2 -Date of Last Picture (Recall this 10/18/23 field) -Photo Taken Yes -Exudate Amt Large -Exudate Type Serosanguineous -Wound Margin Distinct, Outline Attached -Granulation Amt Large (67-100%) Large (67-100%) -Granulation Quality Red Red -Texture (Brenna-wound Skin Appearance) Assessed Assessed,Rash -Moisture (Brenna-wound Skin Appearance) Maceration Assessed -Color (Brenna-wound Skin Appearance) Assessed, Assessed Erythema -Temperature (Brenna-wound Skin No Abnormality Appearance) (Pt Warm) -Ulcer Cleansing Soap and Water Soap and Water -Foul Odor after Cleansing No No -Anesthetic Used 4% Lidocaine 4% Lidocaine Solution Solution Left Calf (cm) 45.5 37.5 Left Ankle (cm) 27.5 29 - Nurse 2 - General Ulcer CM Notes Start: 10/11/23 11:33 Freq: Status: Active Protocol: Activity Type Activity Date Activity User E-sign Co-sign Detail Recorded Client Recorded Date Recorded By Document 10/11/23 12:18 [employer] Laptop 10/11/23 12:20 Document 10/18/23 11:35 Laptop 10/18/23 11:39 10/11/23 10/18/23 12:18 11:35 Wound Center Nurse 2 8-left superior leg ulcer -Time 11:39 -Correct Patient Yes -Correct Side, Site, Position Yes -Correct Procedure Yes -Procedure Performed Yes -Type of Procedure Debridement -Clinical Debridement Subcutaneous -Tissue Removed Subcutaneous -Post Debridement (cm) - Length 1.0 -Post Debridement (cm) - Width 0.8 -Post Debridement (cm) - Depth 0.1 -Total Square (Post) (cm) 0.80 -Area of Debridement (cm) - Length 1.0 -Area of Debridement (cm) - Width 0.8 -Total Square (Area) (cm) 0.80 -Tunneling No -Undermining/Tunneling No -Circular Undermining No -Wound/Ulcer Outcome Not Healed -Ulcer Cleansing Rinsed/ Irrigated with Saline -Foul Odor after Cleansing No -Bioengineered Tissue No -Bleeding Controlled with Pressure -Treatment Response Procedure Tolerated Well -Offloading No -Debridement - Subq, 1st 20sq cm Yes #5 L medial LE -Time 12:18 11:36 -Correct Patient Yes Yes -Correct Side, Site, Position Yes Yes -Correct Procedure Yes Yes -Procedure Performed Yes Yes -Type of Procedure Debridement Debridement -Clinical Debridement Subcutaneous -Tissue Removed Subcutaneous Epidermis, Subcutaneous -Post Debridement (cm) - Length 4.4 4.3 -Post Debridement (cm) - Width 6.5 5.2 -Post Debridement (cm) - Depth 0.1 0.1 -Total Square (Post) (cm) 28.60 22.36 -Area of Debridement (cm) - Length 4.4 4.3 -Area of Debridement (cm) - Width 6.5 5.2 -Total Square (Area) (cm) 28.60 22.36 -Tunneling No No -Undermining/Tunneling No No -Circular Undermining No No -Wound/Ulcer Outcome Not Healed Not Healed -Ulcer Cleansing Rinsed/ Rinsed/ Irrigated with Irrigated with Saline Saline -Foul Odor after Cleansing No No -Bioengineered Tissue Yes Yes -Type of Bioengineered Tissue Theraskin Theraskin -Expiration Date 06/23/27 04/19/28 -Product Lot Number [id number] -Percent Used 100 100 -Lot number of Saline Used [id number] -Bleeding Controlled with Pressure Pressure -Treatment Response Procedure Procedure Tolerated Well Tolerated Well -Offloading No No -Debridement - Subq, 1st 20sq cm No No -Apply Skin Sub - 1st 25 sq cm - Legs 1 1 -Apply Skin Sub - each addt'l 25 sq cm 1 - Legs -Theraskin - 100TSXS (6 SQ CM) (per sq 6 cm) -Theraskin - 101TSS (13 SQ CM) (per sq 13 cm) -Theraskin - 26TS (26 SQ CM) (per sq 26 cm) Pain Scale: 0-10 Numeric Is Patient Pain Free? Yes Yes WC - Nurse 3 - General Ulcer D/C NN Start: 10/11/23 11:33 Freq: Status: Active Protocol: Activity Type Activity Date Activity User E-sign Co-sign Detail Recorded Client Recorded Date Recorded By Document 10/11/23 12:26 Laptop 10/11/23 12:26 Document 10/18/23 11:46 Laptop 10/18/23 11:48 10/11/23 10/18/23 12:26 11:46 Wound Care Center Nurse 3 8-left superior leg ulcer -Primary Dressing Applied Aquacel AG 4x4 -Primary Dressing Covered/Secured with Dry Gauze & Roll Gauze, Secured with Tape -Other Covering abd -Aquacel AG 4x4 1 #5 L medial LE -Ulcer Cleansing Rinsed/ Irrigated with Saline -Foul Odor after Cleansing No -Other Dressing theraskin -Primary Dressing Covered/Secured with Dry Gauze & Dry Gauze & Roll Gauze, Roll Gauze, Secured with Secured with Tape Tape -Other Covering abd Left -Compression Wrap Jonas Wrap -Tubular Bandage Single Layer -Size of Tubigrip Used Size E -Size E ($) 1 Right -Compression Wrap Jonas Wrap Treatment Response Procedure Tolerated Well Pain Scale: 0-10 Numeric Is Patient Pain Free? Yes Yes WC - Visit Discharge Discharge Condition Stable Stable Ambulatory Status Ambulatory Ambulatory Transportation Private Auto Private Auto Additional Wound Wound debrided: #8 left superior leg ulcer Type of Debridement: Excisional debridement Anesthesia Used: 5% Lidocaine Gel Depth: Down to and including healthy tissue and in the subcutaneous layer Percentage of wound debrided: 100 Instrument Used: 3mm curette Tissue Removed: Non viable tissue and slough Severity: Fat Layer Exposed Amount of bleeding with debridement: Mild Bleeding Controlled with: Compression and gauze Patient tolerated procedure: Patient tolerated procedure well Assessment/Plan Assessment/Plan (1) Ulcer of left lower extremity with muscle involvement without evidence of necrosis: CODE(S): L97.925 - Non-pressure chronic ulcer of unspecified part of left lower leg with muscle involvement without evidence of necrosis (2) MRSA (methicillin resistant Staphylococcus aureus) infection: CODE(S): A49.02 - Methicillin resistant Staphylococcus aureus infection, unspecified site (3) History of incision and drainage: CODE(S): Z98.890 - Other specified postprocedural states (4) History of necrotizing fasciitis: CODE(S): Z87.39 - Personal history of other diseases of the musculoskeletal system and connective tissue (5) Borderline personality disorder: CODE(S): F60.3 - Borderline personality disorder PLAN: Plan Wound care - Thera-Skin #8 placed today. Expiration - 04/19/28 Product Lot Number - [id number] Percent used - 100%. Saline Lot Number - [id number]. Saline Expiration Date - 05/08/26. Addition Thera-Skin Expiration - 05/12/2028. Product Lot Number - [id number]. Saline Lot Number - [id number]. Size of Thera-Skin advanced skin substitute graft used total - 19 cm2. Ther-Skin was secured with Dermabond. Skin prep was used surrounding the ulcer. Adaptic touch was placed over the product and secured with Steri-strips. Ulcer covered with ABD. She was instructed not to get her ulcer wet. She may change the outer dressing daily or every other day and as needed, but was instructed to not disturb anything below the wound veil. She has a small ulceration on the proximal edge of the ulcer (superior leg ulcer) that is not covered with Theraskin. Will have her place Aquacel-Ag on this area when she changes her outer dressing. 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 When she works, will change her tubigrip to a smaller size for more compression and support. Wound Culture obtained 12/29/22 positive for Enterococcus faecalis, Corynebacterium amycolatum, and Staphylococcus epidermidis. Treated with Augmentin and Doxycycline. Wound culture obtained 01/28/23 which was positive for Enterococcus faecalis and Corynebacterium striatum. She completed Augmentin. A wound culture was obtained 04/05/23 which was positive for Staphylococcus epidermidis and Staphylococcus haemolyticus. She was treated with IV Vancomycin while she was hospitalized. Prealbumin 13.9 from 04/09/23. Encourage increase protein intake including supplemental protein shakes for her increased metabolic demands from the wounds. Wound culture from 07/05/23 was positive for Proteus mirabilis and MRSA. She was treated with Augmentin and Doxycycline. A wound culture was obtained on 06/17/23, which was positive for Proteus mirabilis, Enterococcus faecalis, and Corynebacterium striatum. She was started on Augmentin, which she was instructed to continue. Wound culture obtained 08/18/23 which was positive for Proteus mirabilis, Enterococcus faecalis and Corynebacterium striatum. She completed the Augmentin. She is doing well with her new job and states that she keeps her leg elevated when she is at home to help prevent the swelling. Prealbumin 13.9 from 04/09/23. Encourage nutritional supplementation with protein to help the healing process. Follow up in one week.
--- NOTE | 2023-10-22 14:50 | WC ---
3.11.24 LT MED ONOFRE
[2023-10-25 11:09] VITALS: BP 141/93; PULSE 96; RESP 16; TEMP 36.3; BMI 48.9
--- NOTE | 2023-10-25 13:24 | PN.PCM_ITS ---
History of Present Illness Date of Service: 10/25/23 Chief Complaint: non-healing ulcer left medial leg History of Wound: Patient is a 23 year old female who presents to the wound healing center for evaluation and treatment of a nonhealing ulcer left medial leg. Patient is a poor historian. Reviewed notes from [facility], she had been admitted to [place] around 11/27/22 for cellulitis and worsening infection of her left lower leg. She ended having an I&D of her left medial leg, left lateral leg and left lateral thigh. She was diagnosed with necrotizing fasciitis. Her wound cultures were positive for Enterococcus and steno. Mycoplasma IGG and IgM (+). She was sent to [facility] on 2 weeks dapto, arthur, clinda, levaquin, and micafungin. Changed Dap to to Vanc. On 12/12 stopped vanc/levaquin/arthur and started IV fluc due to diagnosis of candidemia. She was discharged home from [facility] around the second week of December. She has a history of significant for depression, personality disorder, self harm, anxiety, asthma, recurrent cellulitis and ADHD and most recently Afib and tachycardia. She states that she did not cause these wounds and did not do anything to them to make them worse. She has a history of being accused of tampering with wounds. Surgery 04/07/23 - Surgical preparation left medial leg with incision and drainage and excisional debridement nonhealing infected MRSA ulcer, (126 cm2). Operative culture were negative but she was on Vancomycin and Fluconazole for positive cultures from 04/05/23 which were positive for MRSE and Staphylococcus haemolyticus. Wound culture obtained on 12/29/22 which was positive for Enterococcus faecalis, Corynebacterium amycolatum, and MRSE. She was treated with Augmentin and Doxycycline. Wound culture obtained 01/28/23 which was positive for Enterococcus faecalis and Corynebacterium striatum. She was started on Augmentin. Wound culture obtained 07/07/23 which was positive for Proteus mirabilis and MRSA. She was treated with Doxycycline and Augmentin. Wound culture obtained 08/18/23 which was positive for Proteus mirabilis, Enterococcus faecalis and Corynebacterium striatum. She completed the Augmentin. Left leg ultrasound obtained on 01/06/23 which showed There is no evidence of left lower extremity deep vein thrombosis. She was in [facility] for a week at the end of February for subcutaneous air around her wound. She states she cultured positive for MRSA and they had her on IV antibiotics. They used a wound VAC while she was in the hospital. She was placed on Doxycycline and has finished them. Wound Care - Thera-Skin placement #9 last week. Today she denies fever, chills, nausea or vomiting. Progress of Wound: Improved with the placement of Thera-Skin #9. The ulcer is visibly smaller with beefy pink wound bed. The periwound is stable. She has a small ulceration on the proximal edge of the ulcer that we are placing aquacel-ag daily on, and it is smaller in size and is beefy pink. Her edema is +1. She states that she wears single tubigrip and an JONAS wrap, especially when she is at work. Objective Data Objective Data Vital Signs: Vital Signs Temp Pulse Resp BP O2 Del Method 97.4 F L 96 16 141/93 H Room Air 10/25/23 11:09 10/25/23 11:09 10/25/23 11:09 10/25/23 11:09 10/25/23 11:09 Oxygen Delivery Method Room Air Weight: 276 lb Body Mass Index (BMI) 48.9 Charges/Coding Procedures Integumentary 150xxx-152xx: 42554 Skin sub graft trnk/arm/leg (ICD-10 - L97.925, A49.02, Z98.890, Z87.39, F60.3) Multi Select Codes Integumentary Integumentary CPT Codes: 31310 Stephany subq tissue 20 sq cm/< (superior leg ) Debridement Note Debridement Note Wound debrided: #5 left medial leg Laterality: Left Wound Grade/Stage: 3 Type of Debridement: Excisional debridement Anesthesia Used: 5% Lidocaine Gel Depth: Down to and including healthy tissue and in the subcutaneous layer Percentage of wound debrided: 100 Instrument Used: 5mm curette Tissue Removed: subcutaneous tissue Severity: Fat Layer Exposed Amount of bleeding with debridement: Mild Bleeding Controlled with: Compression and gauze Patient tolerated procedure: Patient tolerated procedure well Post-Debridement Measurements and Additional Note: Post-Debridement Measurements/Treatment STALIN - Nurse 1 - General Ulcer Assessment Start: 10/11/23 11:33 Freq: Status: Active Protocol: WC.LOWEXT Activity Type Activity Date Activity User E-sign Co-sign Detail Recorded Client Recorded Date Recorded By Document 10/11/23 11:39 KW Desktop 10/11/23 11:41 KW Document 10/18/23 11:08 KW Desktop 10/18/23 11:16 KW Document 10/25/23 11:09 BMF Desktop 10/25/23 11:18 BMF 10/11/23 10/18/23 10/25/23 11:39 11:08 11:09 - Today's Visit Information Type of service Follow-up Visit Follow-up Visit Follow-up Visit (Physician/TRAIN CONTROL TECHNICIAN (Physician/TRAIN CONTROL TECHNICIAN (Physician/TRAIN CONTROL TECHNICIAN ) ) ) Arrival Mode Ambulatory Ambulatory Ambulatory Transfer Assistance None Patient Identification Verified (Name & Yes Yes Yes ) Patient Requires Transmission-Based No Precautions Height and Weight Body Mass Index (BMI) 48.9 48.9 48.9 BMI Classification Obese Obese Obese Vital Signs Temperature (97.8 F-99.1 F) 96.5 F L 97.4 F L Temperature Source Temporal Temporal Pulse Rate (60-100) 91 99 96 Pulse Location Monitor Monitor Monitor Respiratory Rate (12-18) 18 18 16 Respiratory rate source Observation Observation Observation Oxygen Delivery Method Room Air Room Air Room Air Blood Pressure (90/60-120/80) 144/89 H 124/90 H 141/93 H Blood Pressure Mean (mm Hg) 107 101 109 Source Monitor Monitor Monitor Position Semi-Fowlers Sitting Sitting Blood Pressure Location Left Arm Left Forearm History Since Last Visit- (Skip if this is Patient's initial visit) Have you changed medications since your No Yes No last visit? Any new allergies or adverse reactions No No No Had a fall/change in ADL's that may No No No increase risk of falls Signs or symptoms of abuse and/or No No No neglect since last visit Have you been in the hospital since your No No No last visit? Has dressing in place as prescribed Yes Yes Yes Has compression in place as prescribed Yes Yes Yes Has offloadiing in place as prescribed N/A No N/A Experienced any changes in pain level or No No No management Left Footwear Regular Shoe Regular Shoe Regular Shoe Right Footwear Regular Shoe Regular Shoe Regular Shoe Pain Scale: 0-10 Numeric Is Patient Pain Free? Yes Yes Yes - Nurse 1 - General Ulcer Measurement Start: 10/11/23 11:33 Freq: Status: Active Protocol: Activity Type Activity Date Activity User E-sign Co-sign Detail Recorded Client Recorded Date Recorded By Document 10/11/23 11:39 KW Desktop 10/11/23 11:41 KW Document 10/18/23 11:08 KW Desktop 10/18/23 11:16 KW Document 10/25/23 11:09 BMF Desktop 10/25/23 11:18 BMF 10/11/23 10/18/23 10/25/23 11:39 11:08 11:09 Wound Center Nurse 1 8-left superior leg ulcer -Combined with other wound No -Current Size (cm) - Length 4.4 -Current Size (cm) - Width 4.8 -Current Size (cm) - Depth 0.1 -Total Square Cm 21.12 -Exudate Amt Small -Exudate Type Serosanguineous -Wound Margin Distinct, Outline Attached -Granulation Amt Large (67-100%) -Granulation Quality Red -Texture (Brenna-wound Skin Appearance) Assessed -Moisture (Brenna-wound Skin Appearance) Assessed -Color (Brenna-wound Skin Appearance) Assessed -Temperature (Brenna-wound Skin No Abnormality Appearance) (Pt Warm) -Tenderness on Palpation (Brenna-wound No Skin Appearance) -Ulcer Cleansing Rinsed/ Irrigated with Saline -Foul Odor after Cleansing No -Anesthetic Used 5% Lidocaine Gel #5 L [facility] LE -Current Size (cm) - Length 6.8 6 0.7 -Current Size (cm) - Width 5.3 5.2 0.5 -Current Size (cm) - Depth 0.2 0.1 0.2 -Total Square Cm 36.04 31.2 0.35 -Date of Last Picture (Recall this 10/18/23 field) -Photo Taken Yes -Exudate Amt Large None Present -Exudate Type Serosanguineous -Wound Margin Distinct, Distinct, Outline Outline Attached Attached -Granulation Amt Large (67-100%) Large (67-100%) Large (67-100%) -Granulation Quality Red Red Red -Texture (Brenna-wound Skin Appearance) Assessed Assessed,Rash Assessed -Moisture (Brenna-wound Skin Appearance) Maceration Assessed Assessed -Color (Brenna-wound Skin Appearance) Assessed, Assessed Assessed Erythema -Temperature (Brenna-wound Skin No Abnormality No Abnormality Appearance) (Pt Warm) (Pt Warm) -Ulcer Cleansing Soap and Water Soap and Water Soap and Water -Foul Odor after Cleansing No No No -Anesthetic Used 4% Lidocaine 4% Lidocaine 5% Lidocaine Solution Solution Gel Left Calf (cm) 45.5 37.5 45.8 Left Ankle (cm) 27.5 29 27.2 WC - Nurse 2 - General Ulcer CM Notes Start: 10/11/23 11:33 Freq: Status: Active Protocol: Activity Type Activity Date Activity User E-sign Co-sign Detail Recorded Client Recorded Date Recorded By Document 10/11/23 12:18 JF Laptop 10/11/23 12:20 JF Document 10/18/23 11:35 JF Laptop 10/18/23 11:39 JF Edit Result 10/18/23 11:35 JF (1) Laptop 10/18/23 14:50 JF Edit Result 10/18/23 11:35 JF (2) Laptop 10/20/23 09:36 JF Document 10/25/23 11:44 JF Laptop 10/25/23 11:48 JF (1) #5 L medial LE - Wound Comment(s) => An additional Theraskin was applied. => Lot# [id number] => exp date: 05/12/2028 => saline used lot # [id number] exp. date 05/08/26. (2) #5 L medial LE - Clinical Debridement => Subcutaneous - Tissue Removed Epidermis, => Subcutaneous Subcutaneous => 10/11/23 10/18/23 10/25/23 12:18 11:35 11:44 Wound Center Nurse 2 8-left superior leg ulcer -Time 11:39 11:44 -Correct Patient Yes Yes -Correct Side, Site, Position Yes Yes -Correct Procedure Yes Yes -Procedure Performed Yes Yes -Type of Procedure Debridement Debridement -Clinical Debridement Subcutaneous Subcutaneous -Tissue Removed Subcutaneous Subcutaneous -Post Debridement (cm) - Length 1.0 0.7 -Post Debridement (cm) - Width 0.8 0.7 -Post Debridement (cm) - Depth 0.1 0.1 -Total Square (Post) (cm) 0.80 0.49 -Area of Debridement (cm) - Length 1.0 0.7 -Area of Debridement (cm) - Width 0.8 0.7 -Total Square (Area) (cm) 0.80 0.49 -Tunneling No No -Undermining/Tunneling No No -Circular Undermining No No -Wound/Ulcer Outcome Not Healed Not Healed -Ulcer Cleansing Rinsed/ Rinsed/ Irrigated with Irrigated with Saline Saline -Foul Odor after Cleansing No No -Bioengineered Tissue No No -Bleeding Controlled with Pressure Pressure -Treatment Response Procedure Tolerated Well -Offloading No No -Debridement - Subq, 1st 20sq cm Yes Yes #5 L medial LE -Time 12:18 11:36 11:45 -Correct Patient Yes Yes Yes -Correct Side, Site, Position Yes Yes Yes -Correct Procedure Yes Yes Yes -Procedure Performed Yes Yes Yes -Type of Procedure Debridement Debridement Debridement -Clinical Debridement Subcutaneous Subcutaneous Subcutaneous -Tissue Removed Subcutaneous Subcutaneous Subcutaneous -Post Debridement (cm) - Length 4.4 4.3 4.2 -Post Debridement (cm) - Width 6.5 5.2 4.8 -Post Debridement (cm) - Depth 0.1 0.1 0.1 -Total Square (Post) (cm) 28.60 22.36 20.16 -Area of Debridement (cm) - Length 4.4 4.3 4.2 -Area of Debridement (cm) - Width 6.5 5.2 4.8 -Total Square (Area) (cm) 28.60 22.36 20.16 -Tunneling No No No -Undermining/Tunneling No No No -Circular Undermining No No No -Wound/Ulcer Outcome Not Healed Not Healed Not Healed -Ulcer Cleansing Rinsed/ Rinsed/ Rinsed/ Irrigated with Irrigated with Irrigated with Saline Saline Saline -Foul Odor after Cleansing No No No -Bioengineered Tissue Yes Yes Yes -Type of Bioengineered Tissue Theraskin Theraskin Theraskin -Expiration Date 06/23/27 04/19/28 05/12/28 -Product Lot Number [id number] -Percent Used 100 100 100 -Lot number of Saline Used [id number] -Bleeding Controlled with Pressure Pressure Pressure -Treatment Response Procedure Procedure Procedure Tolerated Well Tolerated Well Tolerated Well -Offloading No No No -Debridement - Subq, 1st 20sq cm No No No -Apply Skin Sub - 1st 25 sq cm - Legs 1 1 1 -Apply Skin Sub - each addt'l 25 sq cm 1 - Legs -Theraskin - 100TSXS (6 SQ CM) (per sq 6 6 cm) -Theraskin - 101TSS (13 SQ CM) (per sq 13 13 cm) -Theraskin - 26TS (26 SQ CM) (per sq 26 cm) -Wound Comment(s) An additional Theraskin 6sq2 Theraskin was also used applied. exp date- Lot# [id number] exp date: % used 2027 same saline saline used lot used with 13sq2 # [id number] exp. . date 05/08/26. Pain Scale: 0-10 Numeric Is Patient Pain Free? Yes Yes Yes WC - Nurse 3 - General Ulcer D/C NN Start: 10/11/23 11:33 Freq: Status: Active Protocol: Activity Type Activity Date Activity User E-sign Co-sign Detail Recorded Client Recorded Date Recorded By Document 10/11/23 12:26 Laptop 10/11/23 12:26 Document 10/18/23 11:46 Laptop 10/18/23 11:48 Document 10/25/23 12:05 DL Desktop 10/25/23 12:09 DL 10/11/23 10/18/23 10/25/23 12:26 11:46 12:05 Wound Care Center Nurse 3 8-left superior leg ulcer -Foul Odor after Cleansing No -Primary Dressing Applied Aquacel AG 4x4 -Other Dressing Theraskin -Primary Dressing Covered/Secured with Dry Gauze & Dry Gauze & Roll Gauze, Roll Gauze, Secured with Secured with Tape Tape -Other Covering abd -Aquacel AG 4x4 1 #5 L medial LE -Ulcer Cleansing Rinsed/ Irrigated with Saline -Foul Odor after Cleansing No No -Other Dressing theraskin Theraskin -Primary Dressing Covered/Secured with Dry Gauze & Dry Gauze & Dry Gauze & Roll Gauze, Roll Gauze, Roll Gauze, Secured with Secured with Secured with Tape Tape Tape -Other Covering abd Left -Compression Wrap Jonas Wrap Jonas Wrap -Tubular Bandage Single Layer Single Layer -Size of Tubigrip Used Size E Size E -Size E ($) 1 1 Right -Compression Wrap Jonas Wrap Treatment Response Procedure Procedure Tolerated Well Tolerated Well Pain Scale: 0-10 Numeric Is Patient Pain Free? Yes Yes Yes WC - Visit Discharge Discharge Condition Stable Stable Stable Ambulatory Status Ambulatory Ambulatory Ambulatory Transportation Private Auto Private Auto Private Auto Additional Wound Wound debrided: #8 left superior leg ulcer Type of Debridement: Excisional debridement Anesthesia Used: 5% Lidocaine Gel Depth: Down to and including healthy tissue and in the subcutaneous layer Percentage of wound debrided: 100 Instrument Used: 5mm curette Tissue Removed: Non viable tissue and slough Severity: Fat Layer Exposed Amount of bleeding with debridement: Mild Bleeding Controlled with: Compression and gauze Patient tolerated procedure: Patient tolerated procedure well Assessment/Plan Assessment/Plan (1) Ulcer of left lower extremity with muscle involvement without evidence of necrosis: CODE(S): L97.925 - Non-pressure chronic ulcer of unspecified part of left lower leg with muscle involvement without evidence of necrosis (2) MRSA (methicillin resistant Staphylococcus aureus) infection: CODE(S): A49.02 - Methicillin resistant Staphylococcus aureus infection, unspecified site (3) History of incision and drainage: CODE(S): Z98.890 - Other specified postprocedural states (4) History of necrotizing fasciitis: CODE(S): Z87.39 - Personal history of other diseases of the musculoskeletal system and connective tissue (5) Borderline personality disorder: CODE(S): F60.3 - Borderline personality disorder PLAN: Plan Wound care - Thera-Skin #10 placed today. 13cm2 Expiration - 05/12/28 Product Lot Number - [id number] Percent used - 100%. Saline Lot Number - [id number]. Addition Thera-Skin. 6 cm2 Expiration - 04/20/2028. Product Lot Number - [id number]. Percent used - 100%. Saline Lot Number - [id number]. Size of Thera-Skin advanced skin substitute graft used total - 19 cm2. Ther-Skin was secured with Dermabond. Skin prep was used surrounding the ulcer. Adaptic touch was placed over the product and secured with Steri-strips. Ulcer covered with ABD. She was instructed not to get her ulcer wet. She may change the outer dressing daily or every other day and as needed, but was instructed to not disturb anything below the wound veil. She has a small ulceration on the proximal edge of the ulcer (superior leg ulcer) was covered today with Theraskin. 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 When she works, will change her tubigrip to a smaller size and wear JONAS wrap for more compression and support. Wound Culture obtained 12/29/22 positive for Enterococcus faecalis, Corynebacterium amycolatum, and Staphylococcus epidermidis. Treated with Augmentin and Doxycycline. Wound culture obtained 01/28/23 which was positive for Enterococcus faecalis and Corynebacterium striatum. She completed Augmentin. A wound culture was obtained 04/05/23 which was positive for Staphylococcus epidermidis and Staphylococcus haemolyticus. She was treated with IV Vancomycin while she was hospitalized. Prealbumin 13.9 from 04/09/23. Encourage increase protein intake including supplemental protein shakes for her increased metabolic demands from the wounds. Wound culture from 07/05/23 was positive for Proteus mirabilis and MRSA. She was treated with Augmentin and Doxycycline. A wound culture was obtained on 06/17/23, which was positive for Proteus mirabilis, Enterococcus faecalis, and Corynebacterium striatum. She was started on Augmentin, which she was instructed to continue. Wound culture obtained 08/18/23 which was positive for Proteus mirabilis, Enterococcus faecalis and Corynebacterium striatum. She completed the Augmentin. She is doing well with her new job and states that she keeps her leg elevated when she is at home to help prevent the swelling. Prealbumin 13.9 from 04/09/23. Encourage nutritional supplementation with protein to help the healing process. Follow up 2 weeks. I am out of town next week.
== END 2023-11-07 23:59 | disposition home or self-care (01) ==
LOC: WC 11:15
PROVIDERS: PCP Student in an Organized Health Care Education/Training Program; Referring Provider Student in an Organized Health Care Education/Training Program; Visit Provider Nurse Practitioner Family
DX: L97.925 Non-pressure chronic ulcer of unspecified part of left lower leg with muscle involvement without evidence of necrosis (principal); M72.6 Necrotizing fasciitis; F60.3 Borderline personality disorder; A49.02 Methicillin resistant Staphylococcus aureus infection, unspecified site; Z98.890 Other specified postprocedural states; Z87.39 Personal history of other diseases of the musculoskeletal system and connective tissue
CPT/HCPCS: 11042; 15271; 15272; Q4121

== ENCOUNTER 2023-12-06 11:18 | Outpatient (RCR) | payer MEDICAID, SELFPAY ==
[2023-11-08 00:26] VITALS: BP 141/93; PULSE 96; RESP 16; TEMP 36.3; BMI 48.9
[2023-12-06 11:21] VITALS: BP 127/86; PULSE 94; TEMP 35.7; BMI 48.9
--- NOTE | 2023-12-06 12:13 | PCM.WC.PN ---
History of Present Illness Date of Service: 12/06/23 Chief Complaint: non-healing ulcer left medial leg History of Wound: Patient is a 23 year old female who presents to the wound healing center for evaluation and treatment of a nonhealing ulcer left medial leg. Patient is a poor historian. Reviewed notes from [facility], she had been admitted to [place] around 11/27/22 for cellulitis and worsening infection of her left lower leg. She ended having an I&D of her left medial leg, left lateral leg and left lateral thigh. She was diagnosed with necrotizing fasciitis. Her wound cultures were positive for Enterococcus and steno. Mycoplasma IGG and IgM (+). She was sent to [facility] on 2 weeks dapto, arthur, clinda, levaquin, and micafungin. Changed Dap to to Vanc. On 12/12 stopped vanc/levaquin/arthur and started IV fluc due to diagnosis of candidemia. She was discharged home from [facility] around the second week of December. She has a history of significant for depression, personality disorder, self harm, anxiety, asthma, recurrent cellulitis and ADHD and most recently Afib and tachycardia. She states that she did not cause these wounds and did not do anything to them to make them worse. She has a history of being accused of tampering with wounds. Surgery 04/07/23 - Surgical preparation left medial leg with incision and drainage and excisional debridement nonhealing infected MRSA ulcer, (126 cm2). Operative culture were negative but she was on Vancomycin and Fluconazole for positive cultures from 04/05/23 which were positive for MRSE and Staphylococcus haemolyticus. Wound culture obtained on 12/29/22 which was positive for Enterococcus faecalis, Corynebacterium amycolatum, and MRSE. She was treated with Augmentin and Doxycycline. Wound culture obtained 01/28/23 which was positive for Enterococcus faecalis and Corynebacterium striatum. She was started on Augmentin. Wound culture obtained 07/07/23 which was positive for Proteus mirabilis and MRSA. She was treated with Doxycycline and Augmentin. Wound culture obtained 08/18/23 which was positive for Proteus mirabilis, Enterococcus faecalis and Corynebacterium striatum. She completed the Augmentin. Left leg ultrasound obtained on 01/06/23 which showed There is no evidence of left lower extremity deep vein thrombosis. She was in [facility] for a week at the end of February for subcutaneous air around her wound. She states she cultured positive for MRSA and they had her on IV antibiotics. They used a wound VAC while she was in the hospital. She was placed on Doxycycline and has finished them. Wound Care - Thera-Skin 9 applications. Today she denies fever, chills, nausea or vomiting. Progress of Wound: She has been admitted to [facility] at inpatient psych since early November. She was discharged home yesterday. She states that she is doing well. Her left medial leg ulcer is smaller in size, it is beefy pink in color. There is increased dry, scabbing tissue surrounding the ulcer. She states she is doing well now. Objective Data Objective Data Vital Signs: Vital Signs Temp Pulse Resp BP 96.3 F L 94 16 127/86 H 12/06/23 11:21 12/06/23 11:21 11/08/23 00:26 12/06/23 11:21 Weight: 276 lb Body Mass Index (BMI) 48.9 Charges/Coding Procedures Integumentary 111xxx-113xx: 70895 Stephany subq tissue 20 sq cm/< Debridement Note Debridement Note Wound debrided: #5 left medial leg Laterality: Left Wound Grade/Stage: 3 Type of Debridement: Excisional debridement Anesthesia Used: 5% Lidocaine Gel Depth: Down to and including healthy tissue and in the subcutaneous layer Percentage of wound debrided: 100 Instrument Used: 5mm curette Tissue Removed: subcutaneous tissue Severity: Fat Layer Exposed Amount of bleeding with debridement: Mild Bleeding Controlled with: Compression and gauze Patient tolerated procedure: Patient tolerated procedure well Post-Debridement Measurements and Additional Note: Post-Debridement Measurements/Treatment - Nurse 1 - General Ulcer Assessment Start: 12/06/23 11:21 Freq: Status: Active Protocol: [email or web address] Activity Type Activity Date Activity User E-sign Co-sign Detail Recorded Client Recorded Date Recorded By Document 12/06/23 11:21 DS Desktop 12/06/23 11:29 DS 12/06/23 11:21 - Today's Visit Information Type of service 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 Any new allergies or adverse reactions No Had a fall/change in ADL's that may No increase risk of falls Signs or symptoms of abuse and/or No neglect since last visit Have you been in the hospital since your Yes last visit? Has dressing in place as prescribed Yes Has compression in place as prescribed No Has offloadiing in place as prescribed No Experienced any changes in pain level or No management Left Footwear Regular Shoe Right Footwear Regular Shoe Pain Scale: 0-10 Numeric Is Patient Pain Free? Yes WC - Nurse 1 - General Ulcer Measurement Start: 12/06/23 11:21 Freq: Status: Active Protocol: Activity Type Activity Date Activity User E-sign Co-sign Detail Recorded Client Recorded Date Recorded By Document 12/06/23 11:21 DS Desktop 12/06/23 11:29 DS 12/06/23 11:21 Wound Center Nurse 1 8-left superior leg ulcer -Current Size (cm) - Length 0 -Current Size (cm) - Width 0 -Current Size (cm) - Depth 0 -Total Square Cm 0 #5 L medial LE -Current Size (cm) - Length 3.7 -Current Size (cm) - Width 3.9 -Current Size (cm) - Depth 0.1 -Total Square Cm 14.43 -Date of Last Picture (Recall this 12/06/23 field) -Photo Taken Yes -Tunneling No -Undermining/Tunneling No -Circular Undermining No -Exudate Amt Large -Exudate Type Serosanguineous -Wound Margin Distinct, Outline Attached -Granulation Amt Large (67-100%) -Granulation Quality Red -Slough/Fibrin Yes -Necrosis Amt Small (1-33%) -Necrotic Tissue Type Adherent Slough -Texture (Brenna-wound Skin Appearance) Assessed, Scarring -Moisture (Brenna-wound Skin Appearance) Assessed,Dry/ Scaly -Color (Brenna-wound Skin Appearance) Assessed, Erythema -Temperature (Brenna-wound Skin No Abnormality Appearance) (Pt Warm) -Tenderness on Palpation (Brenna-wound No Skin Appearance) -Ulcer Cleansing Soap and Water -Anesthetic Used 4% Lidocaine Solution Left Calf (cm) 47.9 Left Ankle (cm) 28.3 STALIN - Nurse 2 - General Ulcer CM Notes Start: 12/06/23 11:21 Freq: Status: Active Protocol: Activity Type Activity Date Activity User E-sign Co-sign Detail Recorded Client Recorded Date Recorded By Document 12/06/23 11:40 Laptop 12/06/23 11:49 12/06/23 11:40 Wound Center Nurse 2 8-left superior leg ulcer -Time 11:40 -Correct Patient No -Correct Side, Site, Position No -Correct Procedure No -Procedure Performed No -Post Debridement (cm) - Length 0 -Post Debridement (cm) - Width 0 -Post Debridement (cm) - Depth 0 -Total Square (Post) (cm) 0 -Area of Debridement (cm) - Length 0 -Area of Debridement (cm) - Width 0 -Total Square (Area) (cm) 00 -Wound/Ulcer Outcome Healed- Epithelialized -Bleeding Controlled with Pressure #5 L medial LE -Time 11:41 -Correct Patient Yes -Correct Side, Site, Position Yes -Correct Procedure Yes -Procedure Performed Yes -Type of Procedure Debridement -Clinical Debridement Subcutaneous -Tissue Removed Subcutaneous -Tunneling No -Undermining/Tunneling No -Circular Undermining No -Wound/Ulcer Outcome Not Healed -Ulcer Cleansing Rinsed/ Irrigated with Saline -Foul Odor after Cleansing No -Bioengineered Tissue No -Bleeding Controlled with Pressure -Treatment Response Procedure Tolerated Well -Offloading No -Debridement - Subq, 1st 20sq cm Yes Pain Scale: 0-10 Numeric Is Patient Pain Free? Yes - Nurse 3 - General Ulcer D/C NN Start: 12/06/23 11:21 Freq: Status: Active Protocol: Activity Type Activity Date Activity User E-sign Co-sign Detail Recorded Client Recorded Date Recorded By Document 12/06/23 11:49 Laptop 12/06/23 11:50 12/06/23 11:49 Wound Care Center Nurse 3 #5 L medial LE -Ulcer Cleansing Rinsed/ Irrigated with Saline -Foul Odor after Cleansing No -Primary Dressing Applied Mepilex Border, Promogran Belle Matter -Primary Dressing Covered/Secured with Dry Gauze -Mepilex Border 1 -Promogran Belle Matter 1 Right -Compression Wrap Jonas Wrap -Tubular Bandage Single Layer -Size of Tubigrip Used Size F -Size F ($) 1 Pain Scale: 0-10 Numeric Is Patient Pain Free? Yes WC - Visit Discharge Discharge Condition Stable Ambulatory Status Ambulatory Transportation Private Auto Accompanied by mom Medication Reconcilliation completed & Yes provided to patient/care provider Clinical Summary of Care Provided Yes Assessment/Plan Assessment/Plan (1) Ulcer of left lower extremity with muscle involvement without evidence of necrosis: CODE(S): L97.925 - Non-pressure chronic ulcer of unspecified part of left lower leg with muscle involvement without evidence of necrosis (2) MRSA (methicillin resistant Staphylococcus aureus) infection: CODE(S): A49.02 - Methicillin resistant Staphylococcus aureus infection, unspecified site (3) History of incision and drainage: CODE(S): Z98.890 - Other specified postprocedural states (4) History of necrotizing fasciitis: CODE(S): Z87.39 - Personal history of other diseases of the musculoskeletal system and connective tissue (5) Borderline personality disorder: CODE(S): F60.3 - Borderline personality disorder PLAN: Plan Patient was evaluated at the wound healing center today. She had 9 applications of Theraskin. She has been admitted to [facility] for several weeks. She states that they did Dakin's rinses and moistened gauze over her ulcer while she was there. Wound care - Belle covered with [place] SAP daily after washing with soap and water. 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 She is taking some time off work. Wound Culture obtained 12/29/22 positive for Enterococcus faecalis, Corynebacterium amycolatum, and Staphylococcus epidermidis. Treated with Augmentin and Doxycycline. Wound culture obtained 01/28/23 which was positive for Enterococcus faecalis and Corynebacterium striatum. She completed Augmentin. A wound culture was obtained 04/05/23 which was positive for Staphylococcus epidermidis and Staphylococcus haemolyticus. She was treated with IV Vancomycin while she was hospitalized. Prealbumin 13.9 from 04/09/23. Encourage increase protein intake including supplemental protein shakes for her increased metabolic demands from the wounds. Wound culture from 07/05/23 was positive for Proteus mirabilis and MRSA. She was treated with Augmentin and Doxycycline. A wound culture was obtained on 06/17/23, which was positive for Proteus mirabilis, Enterococcus faecalis, and Corynebacterium striatum. She was started on Augmentin, which she was instructed to continue. Wound culture obtained 08/18/23 which was positive for Proteus mirabilis, Enterococcus faecalis and Corynebacterium striatum. She completed the Augmentin. She is doing well with her new job and states that she keeps her leg elevated when she is at home to help prevent the swelling. Prealbumin 13.9 from 04/09/23. Encourage nutritional supplementation with protein to help the healing process. Follow up 1 week.
--- NOTE | 2023-12-06 15:04 | WC ---
12/06/2023 SUPERIOR LEG ULCER MED LEG
== END 2023-12-07 23:59 | disposition home or self-care (01) ==
LOC: WC 11:18
PROVIDERS: PCP Student in an Organized Health Care Education/Training Program; Referring Provider Student in an Organized Health Care Education/Training Program; Visit Provider Nurse Practitioner Family
DX: L97.925 Non-pressure chronic ulcer of unspecified part of left lower leg with muscle involvement without evidence of necrosis (principal); M72.6 Necrotizing fasciitis; F60.3 Borderline personality disorder; Z86.14 Personal history of Methicillin resistant Staphylococcus aureus infection; A49.02 Methicillin resistant Staphylococcus aureus infection, unspecified site; Z98.890 Other specified postprocedural states
CPT/HCPCS: 11042

== ENCOUNTER 2024-01-05 13:30 | Outpatient (RCR) | payer MEDICAID, SELFPAY ==
[2023-12-08 00:20] VITALS: BP 127/86; PULSE 94; RESP 16; TEMP 35.7; BMI 48.9
[2023-12-13 11:04] VITALS: BP 145/58; PULSE 101; RESP 18; TEMP 36.2; BMI 48.9
--- NOTE | 2023-12-13 11:56 | PCM.WC.PN ---
History of Present Illness Date of Service: 12/13/23 Chief Complaint: non-healing ulcer left medial leg History of Wound: Patient is a 23 year old female who presents to the wound healing center for evaluation and treatment of a nonhealing ulcer left medial leg. Patient is a poor historian. Reviewed notes from [facility], she had been admitted to [place] around 11/27/22 for cellulitis and worsening infection of her left lower leg. She ended having an I&D of her left medial leg, left lateral leg and left lateral thigh. She was diagnosed with necrotizing fasciitis. Her wound cultures were positive for Enterococcus and steno. Mycoplasma IGG and IgM (+). She was sent to [facility] on 2 weeks dapto, arthur, clinda, levaquin, and micafungin. Changed Dap to to Vanc. On 12/12 stopped vanc/levaquin/arthur and started IV fluc due to diagnosis of candidemia. She was discharged home from [facility] around the second week of December. She has a history of significant for depression, personality disorder, self harm, anxiety, asthma, recurrent cellulitis and ADHD and most recently Afib and tachycardia. She states that she did not cause these wounds and did not do anything to them to make them worse. She has a history of being accused of tampering with wounds. Surgery 04/07/23 - Surgical preparation left medial leg with incision and drainage and excisional debridement nonhealing infected MRSA ulcer, (126 cm2). Operative culture were negative but she was on Vancomycin and Fluconazole for positive cultures from 04/05/23 which were positive for MRSE and Staphylococcus haemolyticus. Wound culture obtained on 12/29/22 which was positive for Enterococcus faecalis, Corynebacterium amycolatum, and MRSE. She was treated with Augmentin and Doxycycline. Wound culture obtained 01/28/23 which was positive for Enterococcus faecalis and Corynebacterium striatum. She was started on Augmentin. Wound culture obtained 07/07/23 which was positive for Proteus mirabilis and MRSA. She was treated with Doxycycline and Augmentin. Wound culture obtained 08/18/23 which was positive for Proteus mirabilis, Enterococcus faecalis and Corynebacterium striatum. She completed the Augmentin. Left leg ultrasound obtained on 01/06/23 which showed There is no evidence of left lower extremity deep vein thrombosis. She was in [facility] for a week at the end of February for subcutaneous air around her wound. She states she cultured positive for MRSA and they had her on IV antibiotics. They used a wound VAC while she was in the hospital. She was placed on Doxycycline and has finished them. Wound Care - Thera-Skin 9 applications. Today she denies fever, chills, nausea or vomiting. Progress of Wound: Left medial leg ulcer is smaller in size and beefy pink in color. She has some concern about drainage and it being yellow/green in color. Denies any odor. There is no clinical signs of infection. She is denying fever, chills, nausea or vomiting. I suspect that the color of her drainage is from the silver in the primary dressing that we are using. I educated her on this stating that is normal and that the [place] SAP dressing is probably keeping the drainage contained, so it looks like more drainage than there actually is. Overall, the ulcer appears improved compared to last week. Objective Data Objective Data Vital Signs: Vital Signs Temp Pulse Resp BP O2 Del Method 97.2 F L 101 H 18 145/58 H Room Air 12/13/23 11:04 12/13/23 11:04 12/13/23 11:04 12/13/23 11:04 12/13/23 11:04 Oxygen Delivery Method Room Air Weight: 276 lb Body Mass Index (BMI) 48.9 Charges/Coding Procedures Integumentary 111xxx-113xx: 73080 Stephany subq tissue 20 sq cm/< Debridement Note Debridement Note Wound debrided: #5 left medial leg Laterality: Left Wound Grade/Stage: 3 Type of Debridement: Excisional debridement Anesthesia Used: 5% Lidocaine Gel Depth: Down to and including healthy tissue and in the subcutaneous layer Percentage of wound debrided: 100 Instrument Used: 5mm curette Tissue Removed: subcutaneous tissue Severity: Fat Layer Exposed Amount of bleeding with debridement: Mild Bleeding Controlled with: Compression and gauze Patient tolerated procedure: Patient tolerated procedure well Post-Debridement Measurements and Additional Note: Post-Debridement Measurements/Treatment - Nurse 1 - General Ulcer Assessment Start: 12/13/23 11:04 Freq: Status: Active Protocol: BOBO Activity Type Activity Date Activity User E-sign Co-sign Detail Recorded Client Recorded Date Recorded By Document 12/13/23 11:04 [facility] Desktop 12/13/23 11:09 [facility] 12/13/23 11:04 WC - Today's Visit Information Type of service 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 ) Arrival Mode Ambulatory Patient Identification Verified (Name & Yes ) Height and Weight Body Mass Index (BMI) 48.9 BMI Classification Obese Vital Signs Temperature (97.8 F-99.1 F) 97.2 F L Temperature Source Temporal Pulse Rate (60-100) 101 H Pulse Location Monitor Respiratory Rate (12-18) 18 Respiratory rate source Observation Oxygen Delivery Method Room Air Blood Pressure (90/60-120/80) 145/58 H Blood Pressure Mean (mm Hg) 87 Position Semi-Fowlers Blood Pressure Location Left Arm History Since Last Visit- (Skip if this is Patient's initial visit) Have you changed medications since your No last visit? Any new allergies or adverse reactions No Had a fall/change in ADL's that may No increase risk of falls Signs or symptoms of abuse and/or No neglect since last visit Have you been in the hospital since your Yes last visit? Has dressing in place as prescribed Yes Has compression in place as prescribed Yes Has offloadiing in place as prescribed N/A Experienced any changes in pain level or No management Left Footwear Regular Shoe Right Footwear Regular Shoe Pain Scale: 0-10 Numeric Is Patient Pain Free? Yes - Nurse 1 - General Ulcer Measurement Start: 12/13/23 11:04 Freq: Status: Active Protocol: Activity Type Activity Date Activity User E-sign Co-sign Detail Recorded Client Recorded Date Recorded By Document 12/13/23 11:04 [facility] [employer] 12/13/23 11:09 [facility] 12/13/23 11:04 Wound Center Nurse 1 #5 L medial LE -Current Size (cm) - Length 2.4 -Current Size (cm) - Width 3.4 -Current Size (cm) - Depth 0.1 -Total Square Cm 8.16 -Date of Last Picture (Recall this 12/13/23 field) -Epithelialization Medium 34-66% -Exudate Amt Large -Exudate Type Purulent -Wound Margin Distinct, Outline Attached -Granulation Amt Large (67-100%) -Granulation Quality Red -Texture (Brenna-wound Skin Appearance) Assessed -Moisture (Brenna-wound Skin Appearance) Assessed -Color (Brenna-wound Skin Appearance) Assessed, Erythema -Temperature (Rbenna-wound Skin No Abnormality Appearance) (Pt Warm) -Ulcer Cleansing Rinsed/ Irrigated with Saline -Foul Odor after Cleansing No -Anesthetic Used 4% Lidocaine Solution Left Calf (cm) 46.2 Left Ankle (cm) 27.7 WC - Nurse 2 - General Ulcer CM Notes Start: 12/13/23 11:04 Freq: Status: Active Protocol: Activity Type Activity Date Activity User E-sign Co-sign Detail Recorded Client Recorded Date Recorded By Document 12/13/23 11:13 Desktop 12/13/23 11:17 12/13/23 11:13 Wound Center Nurse 2 #5 L medial LE -Time 11:14 -Correct Patient Yes -Correct Side, Site, Position Yes -Correct Procedure Yes -Procedure Performed Yes -Type of Procedure Debridement -Clinical Debridement Subcutaneous -Tissue Removed Subcutaneous -Post Debridement (cm) - Length 2.2 -Post Debridement (cm) - Width 3.4 -Post Debridement (cm) - Depth 0.1 -Total Square (Post) (cm) 7.48 -Area of Debridement (cm) - Length 2.2 -Area of Debridement (cm) - Width 3.4 -Total Square (Area) (cm) 7.48 -Tunneling No -Undermining/Tunneling No -Circular Undermining No -Wound/Ulcer Outcome Not Healed -Ulcer Cleansing Rinsed/ Irrigated with Saline -Foul Odor after Cleansing No -Bioengineered Tissue No -Bleeding Controlled with Pressure -Treatment Response Procedure Tolerated Well -Debridement - Subq, 1st 20sq cm Yes Pain Scale: 0-10 Numeric Is Patient Pain Free? Yes - Nurse 3 - General Ulcer D/C NN Start: 12/13/23 11:04 Freq: Status: Active Protocol: Activity Type Activity Date Activity User E-sign Co-sign Detail Recorded Client Recorded Date Recorded By Document 12/13/23 11:22 [facility] Desktop 12/13/23 11:26 12/13/23 11:22 Wound Care Center Nurse 3 #5 L medial LE -Ulcer Cleansing Rinsed/ Irrigated with Saline -Foul Odor after Cleansing No -Primary Dressing Applied Mepilex Border, Promogran Belle Matter -Mepilex Border 1 -Promogran Belle Matter 1 Left -Compression Wrap Jonas Wrap -Tubular Bandage Single Layer -Size of Tubigrip Used Size F -Size F ($) 1 Treatment Response Procedure Tolerated Well Pain Scale: 0-10 Numeric Is Patient Pain Free? Yes WC - Visit Discharge Discharge Condition Stable Ambulatory Status Ambulatory Transportation Private Auto Assessment/Plan Assessment/Plan (1) Ulcer of left lower extremity with muscle involvement without evidence of necrosis: CODE(S): L97.925 - Non-pressure chronic ulcer of unspecified part of left lower leg with muscle involvement without evidence of necrosis (2) MRSA (methicillin resistant Staphylococcus aureus) infection: CODE(S): A49.02 - Methicillin resistant Staphylococcus aureus infection, unspecified site (3) History of incision and drainage: CODE(S): Z98.890 - Other specified postprocedural states (4) History of necrotizing fasciitis: CODE(S): Z87.39 - Personal history of other diseases of the musculoskeletal system and connective tissue (5) Borderline personality disorder: CODE(S): F60.3 - Borderline personality disorder PLAN: Plan Patient was evaluated at the wound healing center today. She had 9 applications of Theraskin. She has been admitted to [facility] for several weeks. She states that they did Dakin's rinses and moistened gauze over her ulcer while she was there. Wound care - Belle covered with [place] SAP daily after washing with soap and water. 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 She is taking some time off work. Wound Culture obtained 12/29/22 positive for Enterococcus faecalis, Corynebacterium amycolatum, and Staphylococcus epidermidis. Treated with Augmentin and Doxycycline. Wound culture obtained 01/28/23 which was positive for Enterococcus faecalis and Corynebacterium striatum. She completed Augmentin. A wound culture was obtained 04/05/23 which was positive for Staphylococcus epidermidis and Staphylococcus haemolyticus. She was treated with IV Vancomycin while she was hospitalized. Prealbumin 13.9 from 04/09/23. Encourage increase protein intake including supplemental protein shakes for her increased metabolic demands from the wounds. Wound culture from 07/05/23 was positive for Proteus mirabilis and MRSA. She was treated with Augmentin and Doxycycline. A wound culture was obtained on 06/17/23, which was positive for Proteus mirabilis, Enterococcus faecalis, and Corynebacterium striatum. She was started on Augmentin, which she was instructed to continue. Wound culture obtained 08/18/23 which was positive for Proteus mirabilis, Enterococcus faecalis and Corynebacterium striatum. She completed the Augmentin. She is doing well with her new job and states that she keeps her leg elevated when she is at home to help prevent the swelling. Prealbumin 13.9 from 04/09/23. Encourage nutritional supplementation with protein to help the healing process. Follow up 1 week.
[2023-12-20 11:09] VITALS: BP 129/88; PULSE 96; RESP 18; TEMP 37; BMI 48.9
--- NOTE | 2023-12-20 11:34 | PCM.WC.PN ---
History of Present Illness Date of Service: 12/20/23 Chief Complaint: non-healing ulcer left medial leg History of Wound: Patient is a 23 year old female who presents to the wound healing center for evaluation and treatment of a nonhealing ulcer left medial leg. Patient is a poor historian. Reviewed notes from [facility], she had been admitted to [facility] around 11/27/22 for cellulitis and worsening infection of her left lower leg. She ended having an I&D of her left medial leg, left lateral leg and left lateral thigh. She was diagnosed with necrotizing fasciitis. Her wound cultures were positive for Enterococcus and steno. Mycoplasma IGG and IgM (+). She was sent to [facility] on 2 weeks dapto, arthur, clinda, levaquin, and micafungin. Changed Dap to to Vanc. On 12/12 stopped vanc/levaquin/arthur and started IV fluc due to diagnosis of candidemia. She was discharged home from [facility] around the second week of December. She has a history of significant for depression, personality disorder, self harm, anxiety, asthma, recurrent cellulitis and ADHD and most recently Afib and tachycardia. She states that she did not cause these wounds and did not do anything to them to make them worse. She has a history of being accused of tampering with wounds. Surgery 04/07/23 - Surgical preparation left medial leg with incision and drainage and excisional debridement nonhealing infected MRSA ulcer, (126 cm2). Operative culture were negative but she was on Vancomycin and Fluconazole for positive cultures from 04/05/23 which were positive for MRSE and Staphylococcus haemolyticus. Wound culture obtained on 12/29/22 which was positive for Enterococcus faecalis, Corynebacterium amycolatum, and MRSE. She was treated with Augmentin and Doxycycline. Wound culture obtained 01/28/23 which was positive for Enterococcus faecalis and Corynebacterium striatum. She was started on Augmentin. Wound culture obtained 07/07/23 which was positive for Proteus mirabilis and MRSA. She was treated with Doxycycline and Augmentin. Wound culture obtained 08/18/23 which was positive for Proteus mirabilis, Enterococcus faecalis and Corynebacterium striatum. She completed the Augmentin. Left leg ultrasound obtained on 01/06/23 which showed There is no evidence of left lower extremity deep vein thrombosis. She was in [facility] for a week at the end of February for subcutaneous air around her wound. She states she cultured positive for MRSA and they had her on IV antibiotics. They used a wound VAC while she was in the hospital. She was placed on Doxycycline and has finished them. Wound Care - Thera-Skin 9 applications. Today she denies fever, chills, nausea or vomiting. Progress of Wound: Left medial leg ulcer is smaller in size and beefy pink in color. She is denying any concerns today. Her edema has improved. She is starting back to work today, that may impact her edema in her legs. Objective Data Objective Data Vital Signs: Vital Signs Temp Pulse Resp BP O2 Del Method 98.6 F 96 18 129/88 H Room Air 12/20/23 11:12/20/23 11:12/20/23 11:12/20/23 11:12/20/23 11:09 Oxygen Delivery Method Room Air Weight: 276 lb Body Mass Index (BMI) 48.9 Charges/Coding Procedures Integumentary 111xxx-113xx: [id number] Stephany subq tissue 20 sq cm/< Debridement Note Debridement Note Wound debrided: #5 left medial leg Laterality: Left Wound Grade/Stage: 3 Type of Debridement: Excisional debridement Anesthesia Used: 5% Lidocaine Gel Depth: Down to and including healthy tissue and in the subcutaneous layer Percentage of wound debrided: 100 Instrument Used: 5mm curette Tissue Removed: subcutaneous tissue Severity: Fat Layer Exposed Amount of bleeding with debridement: Mild Bleeding Controlled with: Compression and gauze Patient tolerated procedure: Patient tolerated procedure well Post-Debridement Measurements and Additional Note: Post-Debridement Measurements/Treatment - Nurse 1 - General Ulcer Assessment Start: 12/13/23 11:04 Freq: Status: Active Protocol: BOBO Activity Type Activity Date Activity User E-sign Co-sign Detail Recorded Client Recorded Date Recorded By Document 12/13/23 11:04 [facility] Desktop 12/13/23 11:09 [facility] Document 12/20/23 11:09 KW Desktop 12/20/23 11:14 KW 12/13/23 12/20/23 11:04 11:09 - Today's Visit Information Type of service Follow-up Visit Follow-up Visit (Physician/AUTO DAMAGE ADJUSTER (Physician/AUTO DAMAGE ADJUSTER ) ) Arrival Mode Ambulatory Ambulatory Patient Identification Verified (Name & Yes Yes ) Height and Weight Body Mass Index (BMI) 48.9 48.9 BMI Classification Obese Obese Vital Signs Temperature (97.8 F-99.1 F) 97.2 F L 98.6 F Temperature Source Temporal Temporal Pulse Rate (60-100) 101 H 96 Pulse Location Monitor Monitor Respiratory Rate (12-18) 18 18 Respiratory rate source Observation Observation Oxygen Delivery Method Room Air Room Air Blood Pressure (90/60-120/80) 145/58 H 129/88 H Blood Pressure Mean (mm Hg) 87 101 Source Monitor Position Semi-Fowlers Semi-Fowlers Blood Pressure Location Left Arm Left Arm History Since Last Visit- (Skip if this is Patient's initial visit) Have you changed medications since your No No last visit? Any new allergies or adverse reactions No No Had a fall/change in ADL's that may No No increase risk of falls Signs or symptoms of abuse and/or No No neglect since last visit Have you been in the hospital since your Yes No last visit? Has dressing in place as prescribed Yes Yes Has compression in place as prescribed Yes Yes Has offloadiing in place as prescribed N/A N/A Experienced any changes in pain level or No No management Left Footwear Regular Shoe Regular Shoe Right Footwear Regular Shoe Regular Shoe Pain Scale: 0-10 Numeric Is Patient Pain Free? Yes Yes WC - Nurse 1 - General Ulcer Measurement Start: 12/13/23 11:04 Freq: Status: Active Protocol: Activity Type Activity Date Activity User E-sign Co-sign Detail Recorded Client Recorded Date Recorded By Document 12/13/23 11:04 [facility] Desktop 12/13/23 11:09 [facility] Document 12/20/23 11:09 Desktop 12/20/23 11:14 KW 12/13/23 12/20/23 11:04 11:09 Wound Center Nurse 1 #5 L medial LE -Current Size (cm) - Length 2.4 2 -Current Size (cm) - Width 3.4 2.6 -Current Size (cm) - Depth 0.1 0.1 -Total Square Cm 8.16 5.2 -Date of Last Picture (Recall this 12/13/23 12/20/23 field) -Photo Taken Yes -Epithelialization Medium 34-66% Large 67-100% -Exudate Amt Large Small -Exudate Type Purulent Serosanguineous -Wound Margin Distinct, Distinct, Outline Outline Attached Attached -Granulation Amt Large (67-100%) Large (67-100%) -Granulation Quality Red Red -Texture (Brenna-wound Skin Appearance) Assessed Assessed -Moisture (Brenna-wound Skin Appearance) Assessed Assessed -Color (Brenna-wound Skin Appearance) Assessed, Assessed Erythema -Temperature (Brenna-wound Skin No Abnormality No Abnormality Appearance) (Pt Warm) (Pt Warm) -Tenderness on Palpation (Brenan-wound No Skin Appearance) -Ulcer Cleansing Rinsed/ Rinsed/ Irrigated with Irrigated with Saline Saline -Foul Odor after Cleansing No No -Anesthetic Used 4% Lidocaine 5% Lidocaine Solution Gel Left Calf (cm) 46.2 45.8 Left Ankle (cm) 27.7 27 WC - Nurse 2 - General Ulcer CM Notes Start: 12/13/23 11:04 Freq: Status: Active Protocol: Activity Type Activity Date Activity User E-sign Co-sign Detail Recorded Client Recorded Date Recorded By Document 12/13/23 11:13 Desktop 12/13/23 11:17 GM Document 12/20/23 12:10 DS Desktop 12/20/23 12:11 DS 12/13/23 12/20/23 11:13 12:10 Wound Center Nurse 2 #5 L [facility] LE -Time 11:14 12:10 -Correct Patient Yes Yes -Correct Side, Site, Position Yes Yes -Correct Procedure Yes Yes -Procedure Performed Yes Yes -Type of Procedure Debridement Debridement -Clinical Debridement Subcutaneous Subcutaneous -Tissue Removed Subcutaneous Subcutaneous -Post Debridement (cm) - Length 2.2 2.0 -Post Debridement (cm) - Width 3.4 2.6 -Post Debridement (cm) - Depth 0.1 0.1 -Total Square (Post) (cm) 7.48 5.20 -Area of Debridement (cm) - Length 2.2 2.0 -Area of Debridement (cm) - Width 3.4 2.6 -Total Square (Area) (cm) 7.48 5.20 -Tunneling No No -Undermining/Tunneling No No -Circular Undermining No No -Wound/Ulcer Outcome Not Healed Amputation -Ulcer Cleansing Rinsed/ Rinsed/ Irrigated with Irrigated with Saline Saline -Foul Odor after Cleansing No -Bioengineered Tissue No -Bleeding Controlled with Pressure Pressure -Treatment Response Procedure Procedure Tolerated Well Tolerated Well -Debridement - Subq, 1st 20sq cm Yes Yes Pain Scale: 0-10 Numeric Is Patient Pain Free? Yes Yes - Nurse 3 - General Ulcer D/C NN Start: 12/13/23 11:04 Freq: Status: Active Protocol: Activity Type Activity Date Activity User E-sign Co-sign Detail Recorded Client Recorded Date Recorded By Document 12/13/23 11:22 KW Desktop 12/13/23 11:26 KW Document 12/20/23 12:21 DL Desktop 12/20/23 12:22 DL 12/13/23 12/20/23 11:22 12:21 Wound Care Center Nurse 3 #5 L medial LE -Ulcer Cleansing Rinsed/ Rinsed/ Irrigated with Irrigated with Saline Saline -Foul Odor after Cleansing No No -Primary Dressing Applied Mepilex Border, Mepilex Border, Promogran Promogran Belle Matter Belle Matter -Other Covering tubigrip -Mepilex Border 1 1 -Promogran Belle Matter 1 1 Left -Compression Wrap Jonas Wrap -Tubular Bandage Single Layer -Size of Tubigrip Used Size F -Size F ($) 1 Treatment Response Procedure Procedure Tolerated Well Tolerated Well Pain Scale: 0-10 Numeric Is Patient Pain Free? Yes Yes WC - Visit Discharge Discharge Condition Stable Stable Ambulatory Status Ambulatory Ambulatory Transportation Private Auto Private Auto Assessment/Plan Assessment/Plan (1) Ulcer of left lower extremity with muscle involvement without evidence of necrosis: CODE(S): L97.925 - Non-pressure chronic ulcer of unspecified part of left lower leg with muscle involvement without evidence of necrosis (2) MRSA (methicillin resistant Staphylococcus aureus) infection: CODE(S): A49.02 - Methicillin resistant Staphylococcus aureus infection, unspecified site (3) History of incision and drainage: CODE(S): Z98.890 - Other specified postprocedural states (4) History of necrotizing fasciitis: CODE(S): Z87.39 - Personal history of other diseases of the musculoskeletal system and connective tissue (5) Borderline personality disorder: CODE(S): F60.3 - Borderline personality disorder PLAN: Plan Patient was evaluated at the wound healing center today. She had 9 applications of [place]. She has been admitted to [facility] for several weeks. She states that they did Dakin's rinses and moistened gauze over her ulcer while she was there. Wound care - Belle covered with [place] SAP daily after washing with soap and water. Compression - Single tubi-voucher examiner with JONAS wrap on left leg for compression. She returns to work today. Stressed importance of elevating her leg when she gets home to help reduce her swelling. Wound Culture obtained 12/29/22 positive for Enterococcus faecalis, Corynebacterium amycolatum, and Staphylococcus epidermidis. Treated with Augmentin and Doxycycline. Wound culture obtained 01/28/23 which was positive for Enterococcus faecalis and Corynebacterium striatum. She completed Augmentin. A wound culture was obtained 04/05/23 which was positive for Staphylococcus epidermidis and Staphylococcus haemolyticus. She was treated with IV Vancomycin while she was hospitalized. Prealbumin 13.9 from 04/09/23. Encourage increase protein intake including supplemental protein shakes for her increased metabolic demands from the wounds. Wound culture from 07/05/23 was positive for Proteus mirabilis and MRSA. She was treated with Augmentin and Doxycycline. A wound culture was obtained on 06/17/23, which was positive for Proteus mirabilis, Enterococcus faecalis, and Corynebacterium striatum. She was started on Augmentin, which she was instructed to continue. Wound culture obtained 08/18/23 which was positive for Proteus mirabilis, Enterococcus faecalis and Corynebacterium striatum. She completed the Augmentin. She is doing well with her new job and states that she keeps her leg elevated when she is at home to help prevent the swelling. Prealbumin 13.9 from 04/09/23. Encourage nutritional supplementation with protein to help the healing process. Follow up 1 week.
--- NOTE | 2023-12-21 08:33 | WC ---
12/20/2023 LEFT MEDIAL LOWER EXTREMITY
[2023-12-27 11:10] VITALS: BP 133/75; PULSE 92; RESP 20; TEMP 36.6; BMI 48.9
--- NOTE | 2023-12-27 12:16 | PN.PCM_ITS ---
History of Present Illness Date of Service: 12/27/23 Chief Complaint: non-healing ulcer left medial leg History of Wound: Patient is a 23 year old female who presents to the wound healing center for evaluation and treatment of a nonhealing ulcer left medial leg. Patient is a poor historian. Reviewed notes from [facility], she had been admitted to [facility] around 11/27/22 for cellulitis and worsening infection of her left lower leg. She ended having an I&D of her left medial leg, left lateral leg and left lateral thigh. She was diagnosed with necrotizing fasciitis. Her wound cultures were positive for Enterococcus and steno. Mycoplasma IGG and IgM (+). She was sent to [facility] on 2 weeks dapto, arthur, clinda, levaquin, and micafungin. Changed Dap to to Vanc. On 12/12 stopped vanc/levaquin/arthur and started IV fluc due to diagnosis of candidemia. She was discharged home from [facility] around the second week of December. She has a history of significant for depression, personality disorder, self harm, anxiety, asthma, recurrent cellulitis and ADHD and most recently Afib and tachycardia. She states that she did not cause these wounds and did not do anything to them to make them worse. She has a history of being accused of tampering with wounds. Surgery 04/07/23 - Surgical preparation left medial leg with incision and drainage and excisional debridement nonhealing infected MRSA ulcer, (126 cm2). Operative culture were negative but she was on Vancomycin and Fluconazole for positive cultures from 04/05/23 which were positive for MRSE and Staphylococcus haemolyticus. Wound culture obtained on 12/29/22 which was positive for Enterococcus faecalis, Corynebacterium amycolatum, and MRSE. She was treated with Augmentin and Doxycycline. Wound culture obtained 01/28/23 which was positive for Enterococcus faecalis and Corynebacterium striatum. She was started on Augmentin. Wound culture obtained 07/07/23 which was positive for Proteus mirabilis and MRSA. She was treated with Doxycycline and Augmentin. Wound culture obtained 08/18/23 which was positive for Proteus mirabilis, Enterococcus faecalis and Corynebacterium striatum. She completed the Augmentin. Left leg ultrasound obtained on 01/06/23 which showed There is no evidence of left lower extremity deep vein thrombosis. She was in [facility] for a week at the end of February for subcutaneous air around her wound. She states she cultured positive for MRSA and they had her on IV antibiotics. They used a wound VAC while she was in the hospital. She was placed on Doxycycline and has finished them. Wound Care - Thera-Skin 9 applications. Today she denies fever, chills, nausea or vomiting. Progress of Wound: Left medial leg ulcer is smaller in size and beefy pink in color. She is denying any concerns today. She has +2-+3 edema in her lower leg and foot. She has been wearing her compression. Objective Data Objective Data Vital Signs: Vital Signs Temp Pulse Resp BP O2 Del Method 97.9 F 92 20 H 133/75 H Room Air 12/27/23 11:10 12/27/23 11:10 12/27/23 11:10 12/27/23 11:10 12/20/23 11:09 Oxygen Delivery Method Room Air Weight: 276 lb Body Mass Index (BMI) 48.9 Charges/Coding Procedures Integumentary 111xxx-113xx: [id number] Stephany subq tissue 20 sq cm/< Debridement Note Debridement Note Wound debrided: #5 left medial leg Laterality: Left Wound Grade/Stage: 3 Type of Debridement: Excisional debridement Anesthesia Used: 5% Lidocaine Gel Depth: Down to and including healthy tissue and in the subcutaneous layer Percentage of wound debrided: 100 Instrument Used: 5mm curette Tissue Removed: subcutaneous tissue Severity: Fat Layer Exposed Amount of bleeding with debridement: Mild Bleeding Controlled with: Compression and gauze Patient tolerated procedure: Patient tolerated procedure well Post-Debridement Measurements and Additional Note: Post-Debridement Measurements/Treatment - Nurse 1 - General Ulcer Assessment Start: 12/13/23 11:04 Freq: Status: Active Protocol: BOBO Activity Type Activity Date Activity User E-sign Co-sign Detail Recorded Client Recorded Date Recorded By Document 12/13/23 11:04 BMF Desktop 12/13/23 11:09 BMF Document 12/20/23 11:09 KW Desktop 12/20/23 11:14 KW Document 12/27/23 11:10 DL [email or web address] 12/27/23 11:18 DL 12/13/23 12/20/23 12/27/23 11:04 11:09 11:10 WC - Today's Visit Information Type of service Follow-up Visit Follow-up Visit Follow-up Visit (Physician/SUPERVISORY LIFEGUARD (Physician/SUPERVISORY LIFEGUARD (Physician/SUPERVISORY LIFEGUARD ) ) ) Arrival Mode Ambulatory Ambulatory Ambulatory Transfer Assistance None Patient Identification Verified (Name & Yes Yes Yes ) Patient Requires Transmission-Based No Precautions Height and Weight Body Mass Index (BMI) 48.9 48.9 48.9 BMI Classification Obese Obese Obese Vital Signs Temperature (97.8 F-99.1 F) 97.2 F L 98.6 F 97.9 F Temperature Source Temporal Temporal Temporal Pulse Rate (60-100) 101 H 96 92 Pulse Location Monitor Monitor Monitor Respiratory Rate (12-18) 18 18 20 H Respiratory rate source Observation Observation Observation Oxygen Delivery Method Room Air Room Air Blood Pressure (90/60-120/80) 145/58 H 129/88 H 133/75 H Blood Pressure Mean (mm Hg) 87 101 94 Source Monitor Monitor Position Semi-Fowlers Semi-Fowlers Blood Pressure Location Left Arm Left Arm History Since Last Visit- (Skip if this is Patient's initial visit) Have you changed medications since your No No No last visit? Any new allergies or adverse reactions No No No Had a fall/change in ADL's that may No No No increase risk of falls Signs or symptoms of abuse and/or No No No neglect since last visit Have you been in the hospital since your Yes No No last visit? Has dressing in place as prescribed Yes Yes Yes Has compression in place as prescribed Yes Yes Yes Has offloadiing in place as prescribed N/A N/A N/A Experienced any changes in pain level or No No No management Left Footwear Regular Shoe Regular Shoe Right Footwear Regular Shoe Regular Shoe Pain Scale: 0-10 Numeric Is Patient Pain Free? Yes Yes Yes - Nurse 1 - General Ulcer Measurement Start: 12/13/23 11:04 Freq: Status: Active Protocol: Activity Type Activity Date Activity User E-sign Co-sign Detail Recorded Client Recorded Date Recorded By Document 12/13/23 11:04 BMF Desktop 12/13/23 11:09 BMF Document 12/20/23 11:09 KW Desktop 12/20/23 11:14 KW Document 12/27/23 11:10 DL [email or web address] 12/27/23 11:18 DL 12/13/23 12/20/23 12/27/23 11:04 11:09 11:10 Wound Center Nurse 1 #5 L medial LE -Current Size (cm) - Length 2.4 2 1.8 -Current Size (cm) - Width 3.4 2.6 2.3 -Current Size (cm) - Depth 0.1 0.1 0.1 -Total Square Cm 8.16 5.2 4.14 -Date of Last Picture (Recall this 12/13/23 12/20/23 field) -Photo Taken Yes -Epithelialization Medium 34-66% Large 67-100% -Exudate Amt Large Small Medium -Exudate Type Purulent Serosanguineous Serosanguineous -Wound Margin Distinct, Distinct, Distinct, Outline Outline Outline Attached Attached Attached -Granulation Amt Large (67-100%) Large (67-100%) Medium (34-66%) -Granulation Quality Red Red Red -Necrosis Amt Medium (34-66%) -Necrotic Tissue Type Adherent Slough -Structure Exposed N/A -Texture (Brenna-wound Skin Appearance) Assessed Assessed Scarring,Rash -Moisture (Brenna-wound Skin Appearance) Assessed Assessed No Abnormality -Color (Brenna-wound Skin Appearance) Assessed, Assessed Erythema Erythema -Temperature (Brenna-wound Skin No Abnormality No Abnormality No Abnormality Appearance) (Pt Warm) (Pt Warm) (Pt Warm) -Tenderness on Palpation (Brenna-wound No No Skin Appearance) -Ulcer Cleansing Rinsed/ Rinsed/ Irrigated with Irrigated with Saline Saline -Foul Odor after Cleansing No No -Anesthetic Used 4% Lidocaine 5% Lidocaine 5% Lidocaine Solution Gel Gel Left Calf (cm) 46.2 45.8 44 Left Ankle (cm) 27.7 27 27.6 WC - Nurse 2 - General Ulcer CM Notes Start: 12/13/23 11:04 Freq: Status: Active Protocol: Activity Type Activity Date Activity User E-sign Co-sign Detail Recorded Client Recorded Date Recorded By Document 12/13/23 11:13 Desktop 12/13/23 11:17 Document 12/20/23 12:10 DS Desktop 12/20/23 12:11 DS Document 12/27/23 11:45 DS [id number] 12/27/23 11:48 DS 12/13/23 12/20/23 12/27/23 11:13 12:10 11:45 Wound Center Nurse 2 #5 L medial LE -Time 11:14 12:10 11:46 -Correct Patient Yes Yes Yes -Correct Side, Site, Position Yes Yes Yes -Correct Procedure Yes Yes Yes -Procedure Performed Yes Yes Yes -Type of Procedure Debridement Debridement Debridement -Clinical Debridement Subcutaneous Subcutaneous Subcutaneous -Tissue Removed Subcutaneous Subcutaneous Subcutaneous -Post Debridement (cm) - Length 2.2 2.0 1.8 -Post Debridement (cm) - Width 3.4 2.6 2.3 -Post Debridement (cm) - Depth 0.1 0.1 0.1 -Total Square (Post) (cm) 7.48 5.20 4.14 -Area of Debridement (cm) - Length 2.2 2.0 1.8 -Area of Debridement (cm) - Width 3.4 2.6 2.3 -Total Square (Area) (cm) 7.48 5.20 4.14 -Tunneling No No No -Undermining/Tunneling No No No -Circular Undermining No No No -Wound/Ulcer Outcome Not Healed Amputation Not Healed -Ulcer Cleansing Rinsed/ Rinsed/ Rinsed/ Irrigated with Irrigated with Irrigated with Saline Saline Saline -Foul Odor after Cleansing No -Bioengineered Tissue No -Bleeding Controlled with Pressure Pressure Pressure -Treatment Response Procedure Procedure Procedure Tolerated Well Tolerated Well Tolerated Well -Debridement - Subq, 1st 20sq cm Yes Yes Yes Pain Scale: 0-10 Numeric Is Patient Pain Free? Yes Yes Yes WC - Nurse 3 - General Ulcer D/C NN Start: 12/13/23 11:04 Freq: Status: Active Protocol: Activity Type Activity Date Activity User E-sign Co-sign Detail Recorded Client Recorded Date Recorded By Document 12/13/23 11:22 KW Desktop 12/13/23 11:26 KW Document 12/20/23 12:21 DL Desktop 12/20/23 12:22 DL Document 12/27/23 11:51 KW wound center 12/27/23 11:53 KW 12/13/23 12/20/23 12/27/23 11:22 12:21 11:51 Wound Care Center Nurse 3 #5 L medial LE -Ulcer Cleansing Rinsed/ Rinsed/ Irrigated with Irrigated with Saline Saline -Foul Odor after Cleansing No No -Primary Dressing Applied Mepilex Border, Mepilex Border, Promogran Promogran Promogran Belle Matter Belle Matter Belle Matter -Primary Dressing Covered/Secured with Dry Gauze & Roll Gauze, Secured with Tape -Other Covering tubigrip -Mepilex Border 1 1 -Promogran Belle Matter 1 1 1 Left -Compression Wrap Jonas Wrap -Tubular Bandage Single Layer Single Layer -Size of Tubigrip Used Size F Size E -Size E ($) 1 -Size F ($) 1 Treatment Response Procedure Procedure Tolerated Well Tolerated Well Pain Scale: 0-10 Numeric Is Patient Pain Free? Yes Yes Yes WC - Visit Discharge Discharge Condition Stable Stable Stable Ambulatory Status Ambulatory Ambulatory Ambulatory Transportation Private Auto Private Auto Private Auto Medication Reconcilliation completed & No provided to patient/care provider Clinical Summary of Care Provided Yes Assessment/Plan Assessment/Plan (1) Ulcer of left lower extremity with muscle involvement without evidence of necrosis: CODE(S): L97.925 - Non-pressure chronic ulcer of unspecified part of left lower leg with muscle involvement without evidence of necrosis (2) MRSA (methicillin resistant Staphylococcus aureus) infection: CODE(S): A49.02 - Methicillin resistant Staphylococcus aureus infection, unspecified site (3) History of incision and drainage: CODE(S): Z98.890 - Other specified postprocedural states (4) History of necrotizing fasciitis: CODE(S): Z87.39 - Personal history of other diseases of the musculoskeletal system and connective tissue (5) Borderline personality disorder: CODE(S): F60.3 - Borderline personality disorder PLAN: Plan Patient was evaluated at the wound healing center today. She had 9 applications of [place]. She has been admitted to [facility] for several weeks. She states that they did Dakin's rinses and moistened gauze over her ulcer while she was there. Wound care - Belle covered with gauze or [place] SAP daily after washing with soap and water. Compression - Single tubi-ski molder with JONAS wrap on left leg for compression. She returns to work today. Stressed importance of elevating her leg when she gets home to help reduce her swelling. Wound Culture obtained 12/29/22 positive for Enterococcus faecalis, Corynebacterium amycolatum, and Staphylococcus epidermidis. Treated with Augmentin and Doxycycline. Wound culture obtained 01/28/23 which was positive for Enterococcus faecalis and Corynebacterium striatum. She completed Augmentin. A wound culture was obtained 04/05/23 which was positive for Staphylococcus epidermidis and Staphylococcus haemolyticus. She was treated with IV Vancomycin while she was hospitalized. Prealbumin 13.9 from 04/09/23. Encourage increase protein intake including supplemental protein shakes for her increased metabolic demands from the wounds. Wound culture from 07/05/23 was positive for Proteus mirabilis and MRSA. She was treated with Augmentin and Doxycycline. A wound culture was obtained on 06/17/23, which was positive for Proteus mirabilis, Enterococcus faecalis, and Corynebacterium striatum. She was started on Augmentin, which she was instructed to continue. Wound culture obtained 08/18/23 which was positive for Proteus mirabilis, Enterococcus faecalis and Corynebacterium striatum. She completed the Augmentin. She is doing well with her new job and states that she keeps her leg elevated when she is at home to help prevent the swelling. Prealbumin 13.9 from 04/09/23. Encourage nutritional supplementation with protein to help the healing process. Follow up 1 week on Wednesday.
[2024-01-05 13:34] VITALS: BP 136/80; PULSE 85; RESP 18; TEMP 36.2; BMI 48.9
--- NOTE | 2024-01-05 14:32 | PN.PCM_ITS ---
History of Present Illness Date of Service: 01/05/24 Chief Complaint: non-healing ulcer left medial leg History of Wound: Patient is a 23 year old female who presents to the wound healing center for evaluation and treatment of a nonhealing ulcer left medial leg. Patient is a poor historian. Reviewed notes from [facility], she had been admitted to [place] around 11/27/22 for cellulitis and worsening infection of her left lower leg. She ended having an I&D of her left medial leg, left lateral leg and left lateral thigh. She was diagnosed with necrotizing fasciitis. Her wound cultures were positive for Enterococcus and steno. Mycoplasma IGG and IgM (+). She was sent to [facility] on 2 weeks dapto, arthur, clinda, levaquin, and micafungin. Changed Dap to to Vanc. On 12/12 stopped vanc/levaquin/arthur and started IV fluc due to diagnosis of candidemia. She was discharged home from [facility] around the second week of December. She has a history of significant for depression, personality disorder, self harm, anxiety, asthma, recurrent cellulitis and ADHD and most recently Afib and tachycardia. She states that she did not cause these wounds and did not do anything to them to make them worse. She has a history of being accused of tampering with wounds. Surgery 04/07/23 - Surgical preparation left medial leg with incision and drainage and excisional debridement nonhealing infected MRSA ulcer, (126 cm2). Operative culture were negative but she was on Vancomycin and Fluconazole for positive cultures from 04/05/23 which were positive for MRSE and Staphylococcus haemolyticus. Wound culture obtained on 12/29/22 which was positive for Enterococcus faecalis, Corynebacterium amycolatum, and MRSE. She was treated with Augmentin and Doxycycline. Wound culture obtained 01/28/23 which was positive for Enterococcus faecalis and Corynebacterium striatum. She was started on Augmentin. Wound culture obtained 07/07/23 which was positive for Proteus mirabilis and MRSA. She was treated with Doxycycline and Augmentin. Wound culture obtained 08/18/23 which was positive for Proteus mirabilis, Enterococcus faecalis and Corynebacterium striatum. She completed the Augmentin. Left leg ultrasound obtained on 01/06/23 which showed There is no evidence of left lower extremity deep vein thrombosis. She was in [facility] for a week at the end of February for subcutaneous air around her wound. She states she cultured positive for MRSA and they had her on IV antibiotics. They used a wound VAC while she was in the hospital. She was placed on Doxycycline and has finished them. Wound Care - Thera-Skin 9 applications. Today she denies fever, chills, nausea or vomiting. Progress of Wound: Left medial leg ulcer is smaller in size and beefy pink in color. She has multiple areas with blisters distal and lateral to her ulcer. Some of the blisters are still intact. She states that they started last Wednesday. She was experiencing a sharp shooting pain while she was working. She left work early and that is when she noticed the blistering. She has not been doing anything to them. She denies any self inflicting trauma to the areas. There is not erythema or signs of infection. She has been wearing her compression. Objective Data Objective Data Vital Signs: Vital Signs Temp Pulse Resp BP O2 Del Method 97.1 F L 85 18 136/80 H Room Air 01/05/24 13:34 01/05/24 13:34 01/05/24 13:34 01/05/24 13:34 12/20/23 11:09 Oxygen Delivery Method Room Air Weight: 276 lb Body Mass Index (BMI) 48.9 Charges/Coding Procedures Integumentary 111xxx-113xx: [id number] Stephany subq tissue 20 sq cm/< Debridement Note Debridement Note Wound debrided: #5 left medial leg Laterality: Left Wound Grade/Stage: 3 Type of Debridement: Excisional debridement Anesthesia Used: 5% Lidocaine Gel Depth: Down to and including healthy tissue and in the subcutaneous layer Percentage of wound debrided: 100 Instrument Used: 5mm curette Tissue Removed: subcutaneous tissue Severity: Fat Layer Exposed Amount of bleeding with debridement: Mild Bleeding Controlled with: Compression and gauze Patient tolerated procedure: Patient tolerated procedure well Post-Debridement Measurements and Additional Note: Post-Debridement Measurements/Treatment - Nurse 1 - General Ulcer Assessment Start: 12/13/23 11:04 Freq: Status: Active Protocol: BOBO Activity Type Activity Date Activity User E-sign Co-sign Detail Recorded Client Recorded Date Recorded By Document 12/13/23 11:04 [facility] Desktop 12/13/23 11:09 BMF Document 12/20/23 11:09 KW Desktop 12/20/23 11:14 KW Document 12/27/23 11:10 DL [email or web address] 12/27/23 11:18 DL Document 01/05/24 13:34 RB wound cnter 01/05/24 13:36 RB 12/13/23 12/20/23 12/27/23 11:04 11:09 11:10 WC - Today's Visit Information Type of service Follow-up Visit Follow-up Visit Follow-up Visit (Physician/CHILD AND FAMILY COUNSELOR (Physician/CHILD AND FAMILY COUNSELOR (Physician/CHILD AND FAMILY COUNSELOR ) ) ) Arrival Mode Ambulatory Ambulatory Ambulatory Transfer Assistance None Patient Identification Verified (Name & Yes Yes Yes ) Patient Requires Transmission-Based No Precautions Height and Weight Body Mass Index (BMI) 48.9 48.9 48.9 BMI Classification Obese Obese Obese Vital Signs Temperature (97.8 F-99.1 F) 97.2 F L 98.6 F 97.9 F Temperature Source Temporal Temporal Temporal Pulse Rate (60-100) 101 H 96 92 Pulse Location Monitor Monitor Monitor Respiratory Rate (12-18) 18 18 20 H Respiratory rate source Observation Observation Observation Oxygen Delivery Method Room Air Room Air Blood Pressure (90/60-120/80) 145/58 H 129/88 H 133/75 H Blood Pressure Mean (mm Hg) 87 101 94 Source Monitor Monitor Position Semi-Fowlers Semi-Fowlers Blood Pressure Location Left Arm Left Arm History Since Last Visit- (Skip if this is Patient's initial visit) Have you changed medications since your No No No last visit? Any new allergies or adverse reactions No No No Had a fall/change in ADL's that may No No No increase risk of falls Signs or symptoms of abuse and/or No No No neglect since last visit Have you been in the hospital since your Yes No No last visit? Has dressing in place as prescribed Yes Yes Yes Has compression in place as prescribed Yes Yes Yes Has offloadiing in place as prescribed N/A N/A N/A Experienced any changes in pain level or No No No management Left Footwear Regular Shoe Regular Shoe Right Footwear Regular Shoe Regular Shoe Pain Scale: 0-10 Numeric Is Patient Pain Free? Yes Yes Yes 01/05/24 13:34 WC - Today's Visit Information Type of service Follow-up Visit (Physician/CHILD AND FAMILY COUNSELOR ) Arrival Mode Ambulatory Transfer Assistance None Patient Identification Verified (Name & Yes ) Patient Requires Transmission-Based No Precautions Height and Weight Body Mass Index (BMI) 48.9 BMI Classification Obese Vital Signs Temperature (97.8 F-99.1 F) 97.1 F L Temperature Source Temporal Pulse Rate (60-100) 85 Pulse Location Monitor Respiratory Rate (12-18) 18 Respiratory rate source Observation Oxygen Delivery Method Blood Pressure (90/60-120/80) 136/80 H Blood Pressure Mean (mm Hg) 98 Source Monitor Position Semi-Fowlers Blood Pressure Location Left Arm History Since Last Visit- (Skip if this is Patient's initial visit) Have you changed medications since your No last visit? Any new allergies or adverse reactions No Had a fall/change in ADL's that may No increase risk of falls Signs or symptoms of abuse and/or No neglect since last visit Have you been in the hospital since your No last visit? Has dressing in place as prescribed Yes Has compression in place as prescribed Yes Has offloadiing in place as prescribed No Experienced any changes in pain level or No management Left Footwear Right Footwear Pain Scale: 0-10 Numeric Is Patient Pain Free? Yes WC - Nurse 1 - General Ulcer Measurement Start: 12/13/23 11:04 Freq: Status: Active Protocol: Activity Type Activity Date Activity User E-sign Co-sign Detail Recorded Client Recorded Date Recorded By Document 12/13/23 11:04 [facility] Desktop 12/13/23 11:09 [facility] Document 12/20/23 11:09 KW Desktop 12/20/23 11:14 KW Document 12/27/23 11:10 DL [email or web address] 12/27/23 11:18 DL Document 01/05/24 13:34 RB wound cnter 01/05/24 13:36 RB 12/13/23 12/20/23 12/27/23 11:04 11:09 11:10 Wound Center Nurse 1 #5 L medial LE -Combined with other wound -Current Size (cm) - Length 2.4 2 1.8 -Current Size (cm) - Width 3.4 2.6 2.3 -Current Size (cm) - Depth 0.1 0.1 0.1 -Total Square Cm 8.16 5.2 4.14 -Date of Last Picture (Recall this 12/13/23 12/20/23 field) -Photo Taken Yes -Epithelialization Medium 34-66% Large 67-100% -Tunneling -Undermining/Tunneling -Circular Undermining -Exudate Amt Large Small Medium -Exudate Type Purulent Serosanguineous Serosanguineous -Wound Margin Distinct, Distinct, Distinct, Outline Outline Outline Attached Attached Attached -Granulation Amt Large (67-100%) Large (67-100%) Medium (34-66%) -Granulation Quality Red Red Red -Slough/Fibrin -Necrosis Amt Medium (34-66%) -Necrotic Tissue Type Adherent Slough -Structure Exposed N/A -Texture (Brenna-wound Skin Appearance) Assessed Assessed Scarring,Rash -Moisture (Brenna-wound Skin Appearance) Assessed Assessed No Abnormality -Color (Brenna-wound Skin Appearance) Assessed, Assessed Erythema Erythema -Temperature (Brenna-wound Skin No Abnormality No Abnormality No Abnormality Appearance) (Pt Warm) (Pt Warm) (Pt Warm) -Tenderness on Palpation (Brenna-wound No No Skin Appearance) -Ulcer Cleansing Rinsed/ Rinsed/ Irrigated with Irrigated with Saline Saline -Foul Odor after Cleansing No No -Anesthetic Used 4% Lidocaine 5% Lidocaine 5% Lidocaine Solution Gel Gel Left Calf (cm) 46.2 45.8 44 Left Ankle (cm) 27.7 27 27.6 01/05/24 13:34 Wound Center Nurse 1 #5 L medial LE -Combined with other wound No -Current Size (cm) - Length 1.6 -Current Size (cm) - Width 1.8 -Current Size (cm) - Depth 0.1 -Total Square Cm 2.88 -Date of Last Picture (Recall this field) -Photo Taken -Epithelialization -Tunneling No -Undermining/Tunneling No -Circular Undermining No -Exudate Amt Medium -Exudate Type Serosanguineous -Wound Margin Distinct, Outline Attached -Granulation Amt Medium (34-66%) -Granulation Quality Jansen -Slough/Fibrin Yes -Necrosis Amt Medium (34-66%) -Necrotic Tissue Type Adherent Slough -Structure Exposed N/A -Texture (Brenna-wound Skin Appearance) Assessed, Scarring -Moisture (Brenna-wound Skin Appearance) Assessed -Color (Brenna-wound Skin Appearance) Assessed -Temperature (Brenna-wound Skin No Abnormality Appearance) (Pt Warm) -Tenderness on Palpation (Brenna-wound No Skin Appearance) -Ulcer Cleansing Wound Cleanser -Foul Odor after Cleansing No -Anesthetic Used 5% Lidocaine Gel Left Calf (cm) 47.5 Left Ankle (cm) 29.5 WC - Nurse 2 - General Ulcer CM Notes Start: 12/13/23 11:04 Freq: Status: Active Protocol: Activity Type Activity Date Activity User E-sign Co-sign Detail Recorded Client Recorded Date Recorded By Document 12/13/23 11:13 GM Desktop 12/13/23 11:17 GM Document 12/20/23 12:10 DS Desktop 12/20/23 12:11 DS Document 12/27/23 11:45 DS [id number] 12/27/23 11:48 DS Document 01/05/24 14:05 [facility] 01/05/24 14:07 12/13/23 12/20/23 12/27/23 11:13 12:10 11:45 Wound Center Nurse 2 #5 L medial LE -Time 11:14 12:10 11:46 -Correct Patient Yes Yes Yes -Correct Side, Site, Position Yes Yes Yes -Correct Procedure Yes Yes Yes -Procedure Performed Yes Yes Yes -Type of Procedure Debridement Debridement Debridement -Clinical Debridement Subcutaneous Subcutaneous Subcutaneous -Tissue Removed Subcutaneous Subcutaneous Subcutaneous -Post Debridement (cm) - Length 2.2 2.0 1.8 -Post Debridement (cm) - Width 3.4 2.6 2.3 -Post Debridement (cm) - Depth 0.1 0.1 0.1 -Total Square (Post) (cm) 7.48 5.20 4.14 -Area of Debridement (cm) - Length 2.2 2.0 1.8 -Area of Debridement (cm) - Width 3.4 2.6 2.3 -Total Square (Area) (cm) 7.48 5.20 4.14 -Tunneling No No No -Undermining/Tunneling No No No -Circular Undermining No No No -Wound/Ulcer Outcome Not Healed Amputation Not Healed -Ulcer Cleansing Rinsed/ Rinsed/ Rinsed/ Irrigated with Irrigated with Irrigated with Saline Saline Saline -Foul Odor after Cleansing No -Bioengineered Tissue No -Bleeding Controlled with Pressure Pressure Pressure -Treatment Response Procedure Procedure Procedure Tolerated Well Tolerated Well Tolerated Well -Debridement - Subq, 1st 20sq cm Yes Yes Yes Pain Scale: 0-10 Numeric Is Patient Pain Free? Yes Yes Yes 01/05/24 14:05 Wound Center Nurse 2 #5 L medial LE -Time 14:06 -Correct Patient Yes -Correct Side, Site, Position Yes -Correct Procedure Yes -Procedure Performed Yes -Type of Procedure Debridement -Clinical Debridement Subcutaneous -Tissue Removed Subcutaneous -Post Debridement (cm) - Length 2.0 -Post Debridement (cm) - Width 2.4 -Post Debridement (cm) - Depth 0.1 -Total Square (Post) (cm) 4.80 -Area of Debridement (cm) - Length -Area of Debridement (cm) - Width -Total Square (Area) (cm) -Tunneling No -Undermining/Tunneling No -Circular Undermining No -Wound/Ulcer Outcome -Ulcer Cleansing Rinsed/ Irrigated with Saline -Foul Odor after Cleansing No -Bioengineered Tissue -Bleeding Controlled with Pressure -Treatment Response Procedure Tolerated Well -Debridement - Subq, 1st 20sq cm Yes Pain Scale: 0-10 Numeric Is Patient Pain Free? Yes WC - Nurse 3 - General Ulcer D/C NN Start: 12/13/23 11:04 Freq: Status: Active Protocol: Activity Type Activity Date Activity User E-sign Co-sign Detail Recorded Client Recorded Date Recorded By Document 12/13/23 11:22 KW Desktop 12/13/23 11:26 KW Document 12/20/23 12:21 DL Desktop 12/20/23 12:22 DL Document 12/27/23 11:51 KW wound center 12/27/23 11:53 KW Document 01/05/24 14:20 [facility] [id number] 01/05/24 14:21 [facility] 12/13/23 12/20/23 12/27/23 11:22 12:21 11:51 Wound Care Center Nurse 3 #5 L medial LE -Ulcer Cleansing Rinsed/ Rinsed/ Irrigated with Irrigated with Saline Saline -Foul Odor after Cleansing No No -Primary Dressing Applied Mepilex Border, Mepilex Border, Promogran Promogran Promogran Belle Matter Belle Matter Belle Matter -Other Dressing -Primary Dressing Covered/Secured with Dry Gauze & Roll Gauze, Secured with Tape -Other Covering tubigrip -Mepilex Border 1 1 -Promogran Belle Matter 1 1 1 Left -Compression Wrap Jonas Wrap -Tubular Bandage Single Layer Single Layer -Size of Tubigrip Used Size F Size E -Size E ($) 1 -Size F ($) 1 Treatment Response Procedure Procedure Tolerated Well Tolerated Well Pain Scale: 0-10 Numeric Is Patient Pain Free? Yes Yes Yes WC - Visit Discharge Discharge Condition Stable Stable Stable Ambulatory Status Ambulatory Ambulatory Ambulatory Transportation Private Auto Private Auto Private Auto Medication Reconcilliation completed & No provided to patient/care provider Clinical Summary of Care Provided Yes 01/05/24 14:20 Wound Care Center Nurse 3 #5 L medial LE -Ulcer Cleansing Rinsed/ Irrigated with Saline -Foul Odor after Cleansing No -Primary Dressing Applied Promogran Belle Matter -Other Dressing BACTROBAN TO BRENNA ULCERS/ BLISTERS -Primary Dressing Covered/Secured with Dry Gauze & Roll Gauze, Secured with Tape -Other Covering ABD -Mepilex Border -Promogran Belle Matter 1 Left -Compression Wrap Jonas Wrap -Tubular Bandage Single Layer -Size of Tubigrip Used Size E -Size E ($) 1 -Size F ($) Treatment Response Procedure Tolerated Well Pain Scale: 0-10 Numeric Is Patient Pain Free? Yes WC - Visit Discharge Discharge Condition Stable Ambulatory Status Ambulatory Transportation Private Auto Medication Reconcilliation completed & provided to patient/care provider Clinical Summary of Care Provided Assessment/Plan Assessment/Plan (1) Ulcer of left lower extremity with muscle involvement without evidence of necrosis: CODE(S): L97.925 - Non-pressure chronic ulcer of unspecified part of left lower leg with muscle involvement without evidence of necrosis (2) MRSA (methicillin resistant Staphylococcus aureus) infection: CODE(S): A49.02 - Methicillin resistant Staphylococcus aureus infection, unspecified site (3) History of incision and drainage: CODE(S): Z98.890 - Other specified postprocedural states (4) History of necrotizing fasciitis: CODE(S): Z87.39 - Personal history of other diseases of the musculoskeletal system and connective tissue (5) Borderline personality disorder: CODE(S): F60.3 - Borderline personality disorder (6) Blistering of skin: CODE(S): T14.8XXA - Other injury of unspecified body region, initial encounter PLAN: Plan Patient was evaluated at the wound healing center today. She had 9 applications of [place]. She has been admitted to [facility] for several weeks. She states that they did Dakin's rinses and moistened gauze over her ulcer while she was there. She has multiple blisters distal and lateral to her ulcer. She is denying any trauma or self inflicting trauma. Most of the blisters are still intact. She has denied any fevers. There is no erythema or clinical signs of infection. Will prescribe Mupirocin ointment twice daily to help prevent infection (which was sent to her pharmacy). She may gently wash these areas with soap and water daily. Discussed being seen by PCP or going to ED if symptoms of infection develop. She does not need a systemic antibiotic at this time, will keep with local treatment and re-evaluate next week. Wound care - Belle covered with gauze or [place] SAP daily after washing with soap and water to ulcer. Compression - Single tubi-asphalt coater with JONAS wrap on left leg for compression. She has returned to work. Stressed importance of elevating her leg when she gets home to help reduce her swelling. Wound Culture obtained 12/29/22 positive for Enterococcus faecalis, Corynebacterium amycolatum, and Staphylococcus epidermidis. Treated with Augmentin and Doxycycline. Wound culture obtained 01/28/23 which was positive for Enterococcus faecalis and Corynebacterium striatum. She completed Augmentin. A wound culture was obtained 04/05/23 which was positive for Staphylococcus epidermidis and Staphylococcus haemolyticus. She was treated with IV Vancomycin while she was hospitalized. Prealbumin 13.9 from 04/09/23. Encourage increase protein intake including supplemental protein shakes for her increased metabolic demands from the wounds. Wound culture from 07/05/23 was positive for Proteus mirabilis and MRSA. She was treated with Augmentin and Doxycycline. A wound culture was obtained on 06/17/23, which was positive for Proteus mirabilis, Enterococcus faecalis, and Corynebacterium striatum. She was started on Augmentin, which she was instructed to continue. Wound culture obtained 08/18/23 which was positive for Proteus mirabilis, En terococcus faecalis and Corynebacterium striatum. She completed the Augmentin. She is doing well with her job and states that she keeps her leg elevated when she is at home to help prevent the swelling. Encourage nutritional supplementation with protein to help the healing process. Follow up 1 week on Wednesday.
== END 2024-01-07 23:59 | disposition home or self-care (01) ==
LOC: WC 13:30
PROVIDERS: PCP Student in an Organized Health Care Education/Training Program; Referring Provider Student in an Organized Health Care Education/Training Program; Visit Provider Nurse Practitioner Family
DX: L97.925 Non-pressure chronic ulcer of unspecified part of left lower leg with muscle involvement without evidence of necrosis (principal); M72.6 Necrotizing fasciitis; F60.3 Borderline personality disorder; R60.0 Localized edema; A49.02 Methicillin resistant Staphylococcus aureus infection, unspecified site; Z87.39 Personal history of other diseases of the musculoskeletal system and connective tissue; Z98.890 Other specified postprocedural states; T14.8XXA Other injury of unspecified body region, initial encounter
CPT/HCPCS: 11042

== ENCOUNTER 2024-01-31 11:00 | Outpatient (RCR) | payer MEDICAID, SELFPAY ==
[2024-01-08 00:39] VITALS: BP 127/86; PULSE 94; RESP 16; TEMP 35.7; BMI 48.9
[2024-01-12 15:00] VITALS: BP 127/80; PULSE 87; RESP 20; TEMP 36.8; BMI 48.9
--- NOTE | 2024-01-12 15:57 | PN.PCM_ITS ---
History of Present Illness Date of Service: 01/12/24 Chief Complaint: non-healing ulcer left medial leg History of Wound: Patient is a 23 year old female who presents to the wound healing center for evaluation and treatment of a nonhealing ulcer left medial leg. Patient is a poor historian. Reviewed notes from [facility], she had been admitted to [place] around 11/27/22 for cellulitis and worsening infection of her left lower leg. She ended having an I&D of her left medial leg, left lateral leg and left lateral thigh. She was diagnosed with necrotizing fasciitis. Her wound cultures were positive for Enterococcus and steno. Mycoplasma IGG and IgM (+). She was sent to [facility] on 2 weeks dapto, arthur, clinda, levaquin, and micafungin. Changed Dap to to Vanc. On 12/12 stopped vanc/levaquin/arthur and started IV fluc due to diagnosis of candidemia. She was discharged home from [facility] around the second week of December. She has a history of significant for depression, personality disorder, self harm, anxiety, asthma, recurrent cellulitis and ADHD and most recently Afib and tachycardia. She states that she did not cause these wounds and did not do anything to them to make them worse. She has a history of being accused of tampering with wounds. Surgery 04/07/23 - Surgical preparation left medial leg with incision and drainage and excisional debridement nonhealing infected MRSA ulcer, (126 cm2). Operative culture were negative but she was on Vancomycin and Fluconazole for positive cultures from 04/05/23 which were positive for MRSE and Staphylococcus haemolyticus. Wound culture obtained on 12/29/22 which was positive for Enterococcus faecalis, Corynebacterium amycolatum, and MRSE. She was treated with Augmentin and Doxycycline. Wound culture obtained 01/28/23 which was positive for Enterococcus faecalis and Corynebacterium striatum. She was started on Augmentin. Wound culture obtained 07/07/23 which was positive for Proteus mirabilis and MRSA. She was treated with Doxycycline and Augmentin. Wound culture obtained 08/18/23 which was positive for Proteus mirabilis, Enterococcus faecalis and Corynebacterium striatum. She completed the Augmentin. Left leg ultrasound obtained on 01/06/23 which showed There is no evidence of left lower extremity deep vein thrombosis. She was in [facility] for a week at the end of February for subcutaneous air around her wound. She states she cultured positive for MRSA and they had her on IV antibiotics. They used a wound VAC while she was in the hospital. She was placed on Doxycycline and has finished them. Wound Care - Thera-Skin 9 applications. Today she denies fever, chills, nausea or vomiting. Progress of Wound: Left medial leg ulcer is smaller in size and beefy pink in color. She has multiple areas with blisters distal and lateral to her ulcer that are scabbing over. She has been placing Mupirocin ointment on these areas. There is not erythema or signs of infection. She has been wearing her compression. Objective Data Objective Data Vital Signs: Vital Signs Temp Pulse Resp BP 98.2 F 87 20 H 127/80 H 01/12/24 15:00 01/12/24 15:00 01/12/24 15:00 01/12/24 15:00 Weight: 276 lb Body Mass Index (BMI) 48.9 Charges/Coding Procedures Integumentary 111xxx-113xx: 95506 Stephany subq tissue 20 sq cm/< Debridement Note Debridement Note Wound debrided: #5 left medial leg Laterality: Left Wound Grade/Stage: 3 Type of Debridement: Excisional debridement Anesthesia Used: 5% Lidocaine Gel Depth: Down to and including healthy tissue and in the subcutaneous layer Percentage of wound debrided: 100 Instrument Used: 5mm curette Tissue Removed: subcutaneous tissue Severity: Fat Layer Exposed Amount of bleeding with debridement: Mild Bleeding Controlled with: Compression and gauze Patient tolerated procedure: Patient tolerated procedure well Post-Debridement Measurements and Additional Note: Post-Debridement Measurements/Treatment - Nurse 1 - General Ulcer Assessment Start: 01/12/24 15:00 Freq: Status: Active Protocol: [email or web address].[email or web address] Activity Type Activity Date Activity User E-sign Co-sign Detail Recorded Client Recorded Date Recorded By Document 01/12/24 15:00 DL [email or web address] 01/12/24 15:06 DL 01/12/24 15:00 - Today's Visit Information Type of service Follow-up Visit (Physician/OUTSIDE SALES REPRESENTATIVE INSURANCE ) Arrival Mode Cane Transfer Assistance None Patient Identification Verified (Name & Yes ) Patient Requires Transmission-Based No Precautions Height and Weight Body Mass Index (BMI) 48.9 BMI Classification Obese Vital Signs Temperature (97.8 F-99.1 F) 98.2 F Temperature Source Temporal Pulse Rate (60-100) 87 Pulse Location Monitor Respiratory Rate (12-18) 20 H Respiratory rate source Observation Blood Pressure (90/60-120/80) 127/80 H Blood Pressure Mean (mm Hg) 95 Source Monitor History Since Last Visit- (Skip if this is Patient's initial visit) Have you changed medications since your No last visit? Any new allergies or adverse reactions No Had a fall/change in ADL's that may No increase risk of falls Signs or symptoms of abuse and/or No neglect since last visit Have you been in the hospital since your No last visit? Has dressing in place as prescribed Yes Has compression in place as prescribed Yes Has offloadiing in place as prescribed N/A Experienced any changes in pain level or Yes management Pain Scale: 0-10 Numeric Is Patient Pain Free? Yes WC - Nurse 1 - General Ulcer Measurement Start: 01/12/24 15:00 Freq: Status: Active Protocol: Activity Type Activity Date Activity User E-sign Co-sign Detail Recorded Client Recorded Date Recorded By Document 01/12/24 15:00 DL [email or web address] 01/12/24 15:06 DL 01/12/24 15:00 Wound Center Nurse 1 #5 L medial LE -Current Size (cm) - Length 1.5 -Current Size (cm) - Width 1.5 -Current Size (cm) - Depth 0.1 -Total Square Cm 2.25 -Exudate Amt Medium -Exudate Type Serosanguineous -Wound Margin Distinct, Outline Attached -Granulation Amt Medium (34-66%) -Granulation Quality [place],Red -Necrosis Amt Medium (34-66%) -Necrotic Tissue Type Adherent Slough -Structure Exposed N/A -Texture (Brenna-wound Skin Appearance) Scarring,Rash -Moisture (Brenna-wound Skin Appearance) No Abnormality -Color (Brenna-wound Skin Appearance) Erythema -Temperature (Brenna-wound Skin No Abnormality Appearance) (Pt Warm) -Tenderness on Palpation (Brenna-wound No Skin Appearance) -Ulcer Cleansing Soap and Water -Foul Odor after Cleansing No -Anesthetic Used 5% Lidocaine Gel WC - Nurse 2 - General Ulcer CM Notes Start: 01/12/24 15:00 Freq: Status: Active Protocol: Activity Type Activity Date Activity User E-sign Co-sign Detail Recorded Client Recorded Date Recorded By Document 01/12/24 15:24 [facility] 01/12/24 15:28 01/12/24 15:24 Wound Center Nurse 2 -Time 15:24 -Correct Patient Yes -Correct Side, Site, Position Yes -Correct Procedure Yes -Procedure Performed Yes -Type of Procedure Debridement -Clinical Debridement Subcutaneous -Tissue Removed Subcutaneous -Post Debridement (cm) - Length 1.6 -Post Debridement (cm) - Width 1.7 -Post Debridement (cm) - Depth 0.1 -Total Square (Post) (cm) 2.72 -Area of Debridement (cm) - Length 1.6 -Area of Debridement (cm) - Width 1.7 -Total Square (Area) (cm) 2.72 -Tunneling No -Undermining/Tunneling No -Circular Undermining No -Wound/Ulcer Outcome Not Healed -Ulcer Cleansing Rinsed/ Irrigated with Saline -Foul Odor after Cleansing No -Bioengineered Tissue No -Bleeding Controlled with Pressure -Treatment Response Procedure Tolerated Well -Debridement - Subq, 1st 20sq cm Yes Pain Scale: 0-10 Numeric Is Patient Pain Free? Yes - Nurse 3 - General Ulcer D/C NN Start: 01/12/24 15:00 Freq: Status: Active Protocol: Activity Type Activity Date Activity User E-sign Co-sign Detail Recorded Client Recorded Date Recorded By Document 01/12/24 15:45 [place] [email or web address] 01/12/24 15:46 MT 01/12/24 15:45 Wound Care Center Nurse 3 #5 L medial LE -Primary Dressing Applied Promogran Belle Matter -Primary Dressing Covered/Secured with Dry Gauze, Secured with Tape -Promogran Belle Matter 1 Left -Compression Wrap Jonas Wrap -Tubular Bandage Single Layer -Size of Tubigrip Used Size E -Size E ($) 1 Pain Scale: 0-10 Numeric Is Patient Pain Free? Yes Assessment/Plan Assessment/Plan (1) Ulcer of left lower extremity with muscle involvement without evidence of necrosis: CODE(S): L97.925 - Non-pressure chronic ulcer of unspecified part of left lower leg with muscle involvement without evidence of necrosis (2) MRSA (methicillin resistant Staphylococcus aureus) infection: CODE(S): A49.02 - Methicillin resistant Staphylococcus aureus infection, unspecified site (3) History of incision and drainage: CODE(S): Z98.890 - Other specified postprocedural states (4) History of necrotizing fasciitis: CODE(S): Z87.39 - Personal history of other diseases of the musculoskeletal system and connective tissue (5) Borderline personality disorder: CODE(S): F60.3 - Borderline personality disorder (6) Blistering of skin: CODE(S): T14.8XXA - Other injury of unspecified body region, initial encounter PLAN: Plan Patient was evaluated at the wound healing center today. She had 9 applications of Theraskin. Wound care - Belle covered with gauze or [place] SAP daily after washing with soap and water to ulcer. Mupirocin ointment to the blistered areas, cover with gauze. 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 She has returned to work. Stressed importance of elevating her leg when she gets home to help reduce her swelling. Wound Culture obtained 12/29/22 positive for Enterococcus faecalis, Coryn ebacterium amycolatum, and Staphylococcus epidermidis. Treated with Augmentin and Doxycycline. Wound culture obtained 01/28/23 which was positive for Enterococcus faecalis and Corynebacterium striatum. She completed Augmentin. A wound culture was obtained 04/05/23 which was positive for Staphylococcus epidermidis and Staphylococcus haemolyticus. She was treated with IV Vancomycin while she was hospitalized. Prealbumin 13.9 from 04/09/23. Encourage increase protein intake including supplemental protein shakes for her increased metabolic demands from the wounds. Wound culture from 07/05/23 was positive for Proteus mirabilis and MRSA. She was treated with Augmentin and Doxycycline. A wound culture was obtained on 06/17/23, which was positive for Proteus mirabilis, Enterococcus faecalis, and Corynebacterium striatum. She was started on Augmentin, which she was instructed to continue. Wound culture obtained 08/18/23 which was positive for Proteus mirabilis, Enterococcus faecalis and Corynebacterium striatum. She completed the Augmentin. She is doing well with her job and states that she keeps her leg elevated when she is at home to help prevent the swelling. Encourage nutritional supplementation with protein to help the healing process. Follow up 1 week.
[2024-01-17 10:56] VITALS: BP 114/76; PULSE 88; RESP 18; TEMP 35.6; BMI 48.9
--- NOTE | 2024-01-17 11:22 | PN.PCM_ITS ---
History of Present Illness Date of Service: 01/17/24 Chief Complaint: non-healing ulcer left medial leg History of Wound: Patient is a 23 year old female who presents to the wound healing center for evaluation and treatment of a nonhealing ulcer left medial leg. Patient is a poor historian. Reviewed notes from [facility], she had been admitted to [place] around 11/27/22 for cellulitis and worsening infection of her left lower leg. She ended having an I&D of her left medial leg, left lateral leg and left lateral thigh. She was diagnosed with necrotizing fasciitis. Her wound cultures were positive for Enterococcus and steno. Mycoplasma IGG and IgM (+). She was sent to [facility] on 2 weeks dapto, arthur, clinda, levaquin, and micafungin. Changed Dap to to Vanc. On 12/12 stopped vanc/levaquin/arthur and started IV fluc due to diagnosis of candidemia. She was discharged home from [facility] around the second week of December. She has a history of significant for depression, personality disorder, self harm, anxiety, asthma, recurrent cellulitis and ADHD and most recently Afib and tachycardia. She states that she did not cause these wounds and did not do anything to them to make them worse. She has a history of being accused of tampering with wounds. Surgery 04/07/23 - Surgical preparation left medial leg with incision and drainage and excisional debridement nonhealing infected MRSA ulcer, (126 cm2). Operative culture were negative but she was on Vancomycin and Fluconazole for positive cultures from 04/05/23 which were positive for MRSE and Staphylococcus haemolyticus. Wound culture obtained on 12/29/22 which was positive for Enterococcus faecalis, Corynebacterium amycolatum, and MRSE. She was treated with Augmentin and Doxycycline. Wound culture obtained 01/28/23 which was positive for Enterococcus faecalis and Corynebacterium striatum. She was started on Augmentin. Wound culture obtained 07/07/23 which was positive for Proteus mirabilis and MRSA. She was treated with Doxycycline and Augmentin. Wound culture obtained 08/18/23 which was positive for Proteus mirabilis, Enterococcus faecalis and Corynebacterium striatum. She completed the Augmentin. Left leg ultrasound obtained on 01/06/23 which showed There is no evidence of left lower extremity deep vein thrombosis. She was in [facility] for a week at the end of February for subcutaneous air around her wound. She states she cultured positive for MRSA and they had her on IV antibiotics. They used a wound VAC while she was in the hospital. She was placed on Doxycycline and has finished them. Wound Care - Thera-Skin 9 applications. Today she denies fever, chills, nausea or vomiting. Progress of Wound: Left medial leg ulcer is smaller in size and beefy pink in color. She has multiple areas with blisters distal and lateral to her ulcer that are scabbing over and are healing. She has been placing Mupirocin ointment on these areas. There is not erythema or signs of infection. She has been wearing her compression. Objective Data Objective Data Vital Signs: Vital Signs Temp Pulse Resp BP O2 Del Method 96.1 F L 88 18 114/76 Room Air 01/17/24 10:56 01/17/24 10:56 01/17/24 10:56 01/17/24 10:56 01/17/24 10:56 Oxygen Delivery Method Room Air Weight: 276 lb Body Mass Index (BMI) 48.9 Charges/Coding Procedures Integumentary 111xxx-113xx: 36826 Stephany subq tissue 20 sq cm/< Debridement Note Debridement Note Wound debrided: #5 left medial leg Laterality: Left Wound Grade/Stage: 3 Type of Debridement: Excisional debridement Anesthesia Used: 5% Lidocaine Gel Depth: Down to and including healthy tissue and in the subcutaneous layer Percentage of wound debrided: 100 Instrument Used: 5mm curette Tissue Removed: subcutaneous tissue Severity: Fat Layer Exposed Amount of bleeding with debridement: Mild Bleeding Controlled with: Compression and gauze Patient tolerated procedure: Patient tolerated procedure well Post-Debridement Measurements and Additional Note: Post-Debridement Measurements/Treatment - Nurse 1 - General Ulcer Assessment Start: 01/12/24 15:00 Freq: Status: Active Protocol: BOBO Activity Type Activity Date Activity User E-sign Co-sign Detail Recorded Client Recorded Date Recorded By Document 01/12/24 15:00 UMA [id number] 01/12/24 15:06 DL Document 01/17/24 10:56 KW wound center 01/17/24 11:02 KW 01/12/24 01/17/24 15:00 10:56 - Today's Visit Information Type of service Follow-up Visit Follow-up Visit (Physician/EXECUTIVE DIRECTOR GLOBAL BRAND MARKETING (Physician/EXECUTIVE DIRECTOR GLOBAL BRAND MARKETING ) ) Arrival Mode Cane Ambulatory Transfer Assistance None Patient Identification Verified (Name & Yes Yes ) Patient Requires Transmission-Based No Precautions Height and Weight Body Mass Index (BMI) 48.9 48.9 BMI Classification Obese Obese Vital Signs Temperature (97.8 F-99.1 F) 98.2 F 96.1 F L Temperature Source Temporal Temporal Pulse Rate (60-100) 87 88 Pulse Location Monitor Monitor Respiratory Rate (12-18) 20 H 18 Respiratory rate source Observation Observation Oxygen Delivery Method Room Air Blood Pressure (90/60-120/80) 127/80 H 114/76 Blood Pressure Mean (mm Hg) 95 88 Source Monitor Monitor Position Semi-Fowlers Blood Pressure Location Left Forearm History Since Last Visit- (Skip if this is Patient's initial visit) Have you changed medications since your No No last visit? Any new allergies or adverse reactions No No Had a fall/change in ADL's that may No No increase risk of falls Signs or symptoms of abuse and/or No No neglect since last visit Have you been in the hospital since your No No last visit? Has dressing in place as prescribed Yes Yes Has compression in place as prescribed Yes Yes Has offloadiing in place as prescribed N/A N/A Experienced any changes in pain level or Yes No management Left Footwear Regular Shoe Right Footwear Regular Shoe Pain Scale: 0-10 Numeric Is Patient Pain Free? Yes Yes WC - Nurse 1 - General Ulcer Measurement Start: 01/12/24 15:00 Freq: Status: Active Protocol: Activity Type Activity Date Activity User E-sign Co-sign Detail Recorded Client Recorded Date Recorded By Document 01/12/24 15:00 DL 25.7 01/12/24 15:06 DL Document 01/17/24 10:56 KW wound center 01/17/24 11:02 KW 01/12/24 01/17/24 15:00 10:56 Wound Center Nurse 1 #5 L medial LE -Current Size (cm) - Length 1.5 1 -Current Size (cm) - Width 1.5 1.8 -Current Size (cm) - Depth 0.1 0.1 -Total Square Cm 2.25 1.8 -Exudate Amt Medium Small -Exudate Type Serosanguineous Serosanguineous -Wound Margin Distinct, Distinct, Outline Outline Attached Attached -Granulation Amt Medium (34-66%) Large (67-100%) -Granulation Quality [place],Red Red -Necrosis Amt Medium (34-66%) Small (1-33%) -Necrotic Tissue Type Adherent Slough Adherent Slough -Structure Exposed N/A -Texture (Brenna-wound Skin Appearance) Scarring,Rash Assessed -Moisture (Brenna-wound Skin Appearance) No Abnormality Assessed -Color (Brenna-wound Skin Appearance) Erythema Assessed, Erythema -Temperature (Brenna-wound Skin No Abnormality No Abnormality Appearance) (Pt Warm) (Pt Warm) -Tenderness on Palpation (Brenna-wound No No Skin Appearance) -Ulcer Cleansing Soap and Water Rinsed/ Irrigated with Saline -Foul Odor after Cleansing No No -Anesthetic Used 5% Lidocaine 5% Lidocaine Gel Gel Left Calf (cm) 45 Left Ankle (cm) 28.5 - Nurse 2 - General Ulcer CM Notes Start: 01/12/24 15:00 Freq: Status: Active Protocol: Activity Type Activity Date Activity User E-sign Co-sign Detail Recorded Client Recorded Date Recorded By Document 01/12/24 15:24 [facility] 01/12/24 15:28 Document 01/17/24 11:10 [facility] [id number] 01/17/24 11:18 [facility] 01/12/24 01/17/24 15:24 11:10 Wound Center Nurse 2 #5 L medial LE -Time 15:24 11:11 -Correct Patient Yes Yes -Correct Side, Site, Position Yes Yes -Correct Procedure Yes Yes -Procedure Performed Yes Yes -Type of Procedure Debridement Debridement -Clinical Debridement Subcutaneous Subcutaneous -Tissue Removed Subcutaneous Subcutaneous -Post Debridement (cm) - Length 1.6 1.5 -Post Debridement (cm) - Width 1.7 1.4 -Post Debridement (cm) - Depth 0.1 0.1 -Total Square (Post) (cm) 2.72 2.10 -Area of Debridement (cm) - Length 1.6 1.5 -Area of Debridement (cm) - Width 1.7 1.4 -Total Square (Area) (cm) 2.72 2.10 -Tunneling No No -Undermining/Tunneling No No -Circular Undermining No No -Wound/Ulcer Outcome Not Healed Not Healed -Ulcer Cleansing Rinsed/ Rinsed/ Irrigated with Irrigated with Saline Saline -Foul Odor after Cleansing No No -Bioengineered Tissue No No -Bleeding Controlled with Pressure Pressure -Treatment Response Procedure Procedure Tolerated Well Tolerated Well -Debridement - Subq, 1st 20sq cm Yes Yes Pain Scale: 0-10 Numeric Is Patient Pain Free? Yes Yes WC - Nurse 3 - General Ulcer D/C NN Start: 01/12/24 15:00 Freq: Status: Active Protocol: Activity Type Activity Date Activity User E-sign Co-sign Detail Recorded Client Recorded Date Recorded By Document 01/12/24 15:45 MT [email or web address] 01/12/24 15:46 MT 01/12/24 15:45 Wound Care Center Nurse 3 #5 L medial LE -Primary Dressing Applied Promogran Belle Matter -Primary Dressing Covered/Secured with Dry Gauze, Secured with Tape -Promogran Belle Matter 1 Left -Compression Wrap Jonas Wrap -Tubular Bandage Single Layer -Size of Tubigrip Used Size E -Size E ($) 1 Pain Scale: 0-10 Numeric Is Patient Pain Free? Yes Assessment/Plan Assessment/Plan (1) Ulcer of left lower extremity with muscle involvement without evidence of necrosis: CODE(S): L97.925 - Non-pressure chronic ulcer of unspecified part of left lower leg with muscle involvement without evidence of necrosis (2) MRSA (methicillin resistant Staphylococcus aureus) infection: CODE(S): A49.02 - Methicillin resistant Staphylococcus aureus infection, unspecified site (3) History of incision and drainage: CODE(S): Z98.890 - Other specified postprocedural states (4) History of necrotizing fasciitis: CODE(S): Z87.39 - Personal history of other diseases of the musculoskeletal system and connective tissue (5) Borderline personality disorder: CODE(S): F60.3 - Borderline personality disorder (6) Blistering of skin: CODE(S): T14.8XXA - Other injury of unspecified body region, initial encounter PLAN: Plan Patient was evaluated at the wound healing center today. She had 9 applications of Theraskin. Wound care - Belle covered with gauze or [place] SAP daily after washing with soap and water to ulcer. Mupirocin ointment to the blistered areas, cover with gauze. 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 She has returned to work. Stressed importance of elevating her leg when she gets home to help reduce her swelling. Wound Culture obtained 12/29/22 positive for Enterococcus faecalis, Corynebacterium amycolatum, and Staphylococcus epidermidis. Treated with Augmentin and Doxycycline. Wound culture obtained 01/28/23 which was positive for Enterococcus faecalis and Corynebacterium striatum. She completed Augmentin. A wound culture was obtained 04/05/23 which was positive for Staphylococcus epidermidis and Staphylococcus haemolyticus. She was treated with IV Vancomycin while she was hospitalized. Prealbumin 13.9 from 04/09/23. Encourage increase protein intake including supplemental protein shakes for her increased metabolic demands from the wounds. Wound culture from 07/05/23 was positive for Proteus mirabilis and MRSA. She was treated with Augmentin and Doxycycline. A wound culture was obtained on 06/17/23, which was positive for Proteus mirabilis, Enterococcus faecalis, and Corynebacterium striatum. She was started on Augmentin, which she was instructed to continue. Wound culture obtained 08/18/23 which was positive for Proteus mirabilis, Enterococcus faecalis and Corynebacterium striatum. She completed the Augmentin. She is doing well with her job and states that she keeps her leg elevated when she is at home to help prevent the swelling. Encourage nutritional supplementation with protein to help the healing process. Follow up 1 week.
[2024-01-24 11:17] VITALS: BP 126/89; PULSE 82; RESP 18; BMI 48.9
--- NOTE | 2024-01-24 13:47 | PCM.WC.PN ---
History of Present Illness Date of Service: 01/24/24 Chief Complaint: non-healing ulcer left medial leg History of Wound: Patient is a 23 year old female who presents to the wound healing center for evaluation and treatment of a nonhealing ulcer left medial leg. Patient is a poor historian. Reviewed notes from [facility], she had been admitted to [place] around 11/27/22 for cellulitis and worsening infection of her left lower leg. She ended having an I&D of her left medial leg, left lateral leg and left lateral thigh. She was diagnosed with necrotizing fasciitis. Her wound cultures were positive for Enterococcus and steno. Mycoplasma IGG and IgM (+). She was sent to [facility] on 2 weeks dapto, arthur, clinda, levaquin, and micafungin. Changed Dap to to Vanc. On 12/12 stopped vanc/levaquin/arthur and started IV fluc due to diagnosis of candidemia. She was discharged home from [facility] around the second week of December. She has a history of significant for depression, personality disorder, self harm, anxiety, asthma, recurrent cellulitis and ADHD and most recently Afib and tachycardia. She states that she did not cause these wounds and did not do anything to them to make them worse. She has a history of being accused of tampering with wounds. Surgery 04/07/23 - Surgical preparation left medial leg with incision and drainage and excisional debridement nonhealing infected MRSA ulcer, (126 cm2). Operative culture were negative but she was on Vancomycin and Fluconazole for positive cultures from 04/05/23 which were positive for MRSE and Staphylococcus haemolyticus. Wound culture obtained on 12/29/22 which was positive for Enterococcus faecalis, Corynebacterium amycolatum, and MRSE. She was treated with Augmentin and Doxycycline. Wound culture obtained 01/28/23 which was positive for Enterococcus faecalis and Corynebacterium striatum. She was started on Augmentin. Wound culture obtained 07/07/23 which was positive for Proteus mirabilis and MRSA. She was treated with Doxycycline and Augmentin. Wound culture obtained 08/18/23 which was positive for Proteus mirabilis, Enterococcus faecalis and Corynebacterium striatum. She completed the Augmentin. Left leg ultrasound obtained on 01/06/23 which showed There is no evidence of left lower extremity deep vein thrombosis. She was in [facility] for a week at the end of February for subcutaneous air around her wound. She states she cultured positive for MRSA and they had her on IV antibiotics. They used a wound VAC while she was in the hospital. She was placed on Doxycycline and has finished them. Wound Care - Thera-Skin 9 applications. Today she denies fever, chills, nausea or vomiting. Progress of Wound: Left medial leg ulcer is smaller in size and beefy pink in color. She has multiple areas with blisters distal and lateral to her ulcer that are scabbing over and are healing. She has been placing Mupirocin ointment on these areas. There is not erythema or signs of infection. She has been wearing her compression. She has a new area of concern on her sacrum she has been having drainage. She has a small opening with a tunnel in the pilonidal area. Drainage is serosanguineous. She has a small area above the tunnel that has pink hypergranulation tissue present, no tunnel in that area. No debridement from the sacral area. Objective Data Objective Data Vital Signs: Vital Signs Temp Pulse Resp BP O2 Del Method 96.1 F L 82 18 126/89 H Room Air 01/17/24 10:56 01/24/24 11:17 01/24/24 11:17 01/24/24 11:17 01/24/24 11:17 Oxygen Delivery Method Room Air Weight: 276 lb Body Mass Index (BMI) 48.9 Charges/Coding Procedures Integumentary 111xxx-113xx: [id number] Stephany subq tissue 20 sq cm/< Debridement Note Debridement Note Wound debrided: #5 left medial leg Laterality: Left Wound Grade/Stage: 3 Type of Debridement: Excisional debridement Anesthesia Used: 5% Lidocaine Gel Depth: Down to and including healthy tissue and in the subcutaneous layer Percentage of wound debrided: 100 Instrument Used: 5mm curette Tissue Removed: subcutaneous tissue Severity: Fat Layer Exposed Amount of bleeding with debridement: Mild Bleeding Controlled with: Compression and gauze Patient tolerated procedure: Patient tolerated procedure well Post-Debridement Measurements and Additional Note: Post-Debridement Measurements/Treatment STALIN - Nurse 1 - General Ulcer Assessment Start: 01/12/24 15:00 Freq: Status: Active Protocol: BOBO Activity Type Activity Date Activity User E-sign Co-sign Detail Recorded Client Recorded Date Recorded By Document 01/12/24 15:00 DL [email or web address] 01/12/24 15:06 DL Document 01/17/24 10:56 KW wound center 01/17/24 11:02 KW Document 01/24/24 11:17 KW l 01/24/24 11:20 KW 01/12/24 01/17/24 01/24/24 15:00 10:56 11:17 WC - Today's Visit Information Type of service Follow-up Visit Follow-up Visit Follow-up Visit (Physician/GENERAL CONTRACTOR (Physician/GENERAL CONTRACTOR (Physician/GENERAL CONTRACTOR ) ) ) Arrival Mode Cane Ambulatory Ambulatory Transfer Assistance None Accompanied by MOTHER Patient Identification Verified (Name & Yes Yes Yes ) Patient Requires Transmission-Based No Precautions Height and Weight Body Mass Index (BMI) 48.9 48.9 48.9 BMI Classification Obese Obese Obese Vital Signs Temperature (97.8 F-99.1 F) 98.2 F 96.1 F L Temperature Source Temporal Temporal Pulse Rate (60-100) 87 88 82 Pulse Location Monitor Monitor Monitor Respiratory Rate (12-18) 20 H 18 18 Respiratory rate source Observation Observation Observation Oxygen Delivery Method Room Air Room Air Blood Pressure (90/60-120/80) 127/80 H 114/76 126/89 H Blood Pressure Mean (mm Hg) 95 88 101 Source Monitor Monitor Monitor Position Semi-Fowlers Semi-Fowlers Blood Pressure Location Left Forearm Left Arm History Since Last Visit- (Skip if this is Patient's initial visit) Have you changed medications since your No No No last visit? Any new allergies or adverse reactions No No No Had a fall/change in ADL's that may No No No increase risk of falls Signs or symptoms of abuse and/or No No No neglect since last visit Have you been in the hospital since your No No No last visit? Has dressing in place as prescribed Yes Yes Yes Has compression in place as prescribed Yes Yes Yes Has offloadiing in place as prescribed N/A N/A N/A Experienced any changes in pain level or Yes No No management Left Footwear Regular Shoe Regular Shoe Right Footwear Regular Shoe Regular Shoe Pain Scale: 0-10 Numeric Is Patient Pain Free? Yes Yes Yes WC - Nurse 1 - General Ulcer Measurement Start: 01/12/24 15:00 Freq: Status: Active Protocol: Activity Type Activity Date Activity User E-sign Co-sign Detail Recorded Client Recorded Date Recorded By Document 01/12/24 15:00 DL [id number] 01/12/24 15:06 DL Document 01/17/24 10:56 KW wound center 01/17/24 11:02 KW Document 01/24/24 11:17 KW l 01/24/24 11:20 KW 01/12/24 01/17/24 01/24/24 15:00 10:56 11:17 Wound Center Nurse 1 #5 L medial LE -Current Size (cm) - Length 1.5 1 1.1 -Current Size (cm) - Width 1.5 1.8 1.3 -Current Size (cm) - Depth 0.1 0.1 0.1 -Total Square Cm 2.25 1.8 1.43 -Epithelialization Large 67-100% -Exudate Amt Medium Small Medium -Exudate Type Serosanguineous Serosanguineous Serosanguineous -Wound Margin Distinct, Distinct, Distinct, Outline Outline Outline Attached Attached Attached -Granulation Amt Medium (34-66%) Large (67-100%) Large (67-100%) -Granulation Quality [place],Red Red Red -Necrosis Amt Medium (34-66%) Small (1-33%) Small (1-33%) -Necrotic Tissue Type Adherent Slough Adherent Slough Adherent Slough -Structure Exposed N/A -Texture (Brenna-wound Skin Appearance) Scarring,Rash Assessed Scarring -Moisture (Brenna-wound Skin Appearance) No Abnormality Assessed Assessed -Color (Brenna-wound Skin Appearance) Erythema Assessed, Assessed Erythema -Temperature (Brenna-wound Skin No Abnormality No Abnormality No Abnormality Appearance) (Pt Warm) (Pt Warm) (Pt Warm) -Tenderness on Palpation (Brenna-wound No No No Skin Appearance) -Ulcer Cleansing Soap and Water Rinsed/ Rinsed/ Irrigated with Irrigated with Saline Saline -Foul Odor after Cleansing No No No -Anesthetic Used 5% Lidocaine 5% Lidocaine 5% Lidocaine Gel Gel Gel Left Calf (cm) 45 43.5 Left Ankle (cm) 28.5 25.8 WC - Nurse 2 - General Ulcer CM Notes Start: 01/12/24 15:00 Freq: Status: Active Protocol: Activity Type Activity Date Activity User E-sign Co-sign Detail Recorded Client Recorded Date Recorded By Document 01/12/24 15:24 [facility] 01/12/24 15:28 Document 01/17/24 11:10 [facility] [id number] 01/17/24 11:18 [facility] Document 01/24/24 11:49 JF [id number] 01/24/24 11:52 JF Edit Result 01/24/24 11:49 JF (1) [id number] 01/24/24 11:59 JF (1) 9-sacrum - Time => 11:57 - Correct Patient => Yes - Correct Side, Site, Position => Yes - Correct Procedure => Yes - Procedure Performed => Yes - Type of Procedure => Debridement - Clinical Debridement => Subcutaneous - Tissue Removed => Subcutaneous - Post Debridement (cm) - Length => 1.7 - Post Debridement (cm) - Width => 0.7 - Post Debridement (cm) - Depth => 2.2 - Total Square (Post) (cm) => 1.19 - Area of Debridement (cm) - Length => 1.7 - Area of Debridement (cm) - Width => 0.7 - Total Square (Area) (cm) => 1.19 - Tunneling => No - Undermining/Tunneling => No - Circular Undermining => No - Wound/Ulcer Outcome => Not Healed - Ulcer Cleansing => Rinsed/Irrigated => with Saline - Foul Odor after Cleansing => No - Bioengineered Tissue => No - Bleeding Controlled with => Pressure - Treatment Response => Procedure => Tolerated Well - Offloading => No - Debridement - Subq, 1st 20sq cm => No 01/12/24 01/17/24 01/24/24 15:24 11:10 11:49 Wound Center Nurse 2 9-sacrum -Time 11:57 -Correct Patient Yes -Correct Side, Site, Position Yes -Correct Procedure Yes -Procedure Performed Yes -Type of Procedure Debridement -Clinical Debridement Subcutaneous -Tissue Removed Subcutaneous -Post Debridement (cm) - Length 1.7 -Post Debridement (cm) - Width 0.7 -Post Debridement (cm) - Depth 2.2 -Total Square (Post) (cm) 1.19 -Area of Debridement (cm) - Length 1.7 -Area of Debridement (cm) - Width 0.7 -Total Square (Area) (cm) 1.19 -Tunneling No -Undermining/Tunneling No -Circular Undermining No -Wound/Ulcer Outcome Not Healed -Ulcer Cleansing Rinsed/ Irrigated with Saline -Foul Odor after Cleansing No -Bioengineered Tissue No -Bleeding Controlled with Pressure -Treatment Response Procedure Tolerated Well -Offloading No -Debridement - Subq, 1st 20sq cm No #5 L medial LE -Time 15:24 11:11 11:51 -Correct Patient Yes Yes Yes -Correct Side, Site, Position Yes Yes Yes -Correct Procedure Yes Yes Yes -Procedure Performed Yes Yes Yes -Type of Procedure Debridement Debridement Debridement -Clinical Debridement Subcutaneous Subcutaneous Subcutaneous -Tissue Removed Subcutaneous Subcutaneous Subcutaneous -Post Debridement (cm) - Length 1.6 1.5 1.5 -Post Debridement (cm) - Width 1.7 1.4 1.5 -Post Debridement (cm) - Depth 0.1 0.1 0.1 -Total Square (Post) (cm) 2.72 2.10 2.25 -Area of Debridement (cm) - Length 1.6 1.5 1.5 -Area of Debridement (cm) - Width 1.7 1.4 1.5 -Total Square (Area) (cm) 2.72 2.10 2.25 -Tunneling No No No -Undermining/Tunneling No No No -Circular Undermining No No No -Wound/Ulcer Outcome Not Healed Not Healed Not Healed -Ulcer Cleansing Rinsed/ Rinsed/ Wound Cleanser Irrigated with Irrigated with Saline Saline -Foul Odor after Cleansing No No No -Bioengineered Tissue No No No -Bleeding Controlled with Pressure Pressure Pressure -Treatment Response Procedure Procedure Procedure Tolerated Well Tolerated Well Tolerated Well -Offloading No -Debridement - Subq, 1st 20sq cm Yes Yes Yes Pain Scale: 0-10 Numeric Is Patient Pain Free? Yes Yes Yes WC - Nurse 3 - General Ulcer D/C NN Start: 01/12/24 15:00 Freq: Status: Active Protocol: Activity Type Activity Date Activity User E-sign Co-sign Detail Recorded Client Recorded Date Recorded By Document 01/12/24 15:45 PR [email or web address] 01/12/24 15:46 PR Document 01/17/24 11:24 [facility] [id number] 01/17/24 11:24 [facility] Document 01/24/24 12:11 [id number] 01/24/24 12:12 JF 01/12/24 01/17/24 01/24/24 15:45 11:24 12:11 Wound Care Center Nurse 3 9-sacrum -Ulcer Cleansing Rinsed/ Irrigated with Saline -Foul Odor after Cleansing No -Primary Dressing Applied Aquacel AG 4x4, Mepilex Border -Aquacel AG 4x4 1 -Mepilex Border 1 -Promogran Belle Matter 1 #5 L medial LE -Ulcer Cleansing Rinsed/ Rinsed/ Irrigated with Irrigated with Saline Saline -Foul Odor after Cleansing No No -Primary Dressing Applied Promogran Mepilex Border, Mepilex Border, Belle Matter Promogran Promogran Belle Matter Belle Matter -Primary Dressing Covered/Secured with Dry Gauze, Secured with Tape -Mepilex Border 1 1 -Promogran Belle Matter 1 1 1 Left -Compression Wrap Jonas Wrap Jonas Wrap -Tubular Bandage Single Layer Single Layer Single Layer -Size of Tubigrip Used Size E Size E Size E -Size E ($) 1 1 1 Treatment Response Procedure Tolerated Well Pain Scale: 0-10 Numeric Is Patient Pain Free? Yes Yes Yes WC - Visit Discharge Discharge Condition Stable Stable Ambulatory Status Ambulatory Ambulatory Transportation Private Auto Private Auto Medication Reconcilliation completed & Yes provided to patient/care provider Clinical Summary of Care Provided Yes Assessment/Plan Assessment/Plan (1) Ulcer of left lower extremity with muscle involvement without evidence of necrosis: CODE(S): L97.925 - Non-pressure chronic ulcer of unspecified part of left lower leg with muscle involvement without evidence of necrosis (2) Pilonidal cyst: CODE(S): L05.91 - Pilonidal cyst without abscess (3) MRSA (methicillin resistant Staphylococcus aureus) infection: CODE(S): A49.02 - Methicillin resistant Staphylococcus aureus infection, unspecified site (4) History of incision and drainage: CODE(S): Z98.890 - Other specified postprocedural states (5) History of necrotizing fasciitis: CODE(S): Z87.39 - Personal history of other diseases of the musculoskeletal system and connective tissue (6) Borderline personality disorder: CODE(S): F60.3 - Borderline personality disorder (7) Blistering of skin: CODE(S): T14.8XXA - Other injury of unspecified body region, initial encounter PLAN: Plan Patient was evaluated at the wound healing center today. She had 9 applications of [place]. Wound care - Belle covered with gauze or [place] SAP daily after washing with soap and water to ulcer. Mupirocin ointment to the blistered areas, cover with gauze. To the pilonidal area, will treat conservatively with packing with Aquacel-Ag covering with gauze. Wash all wounds with soap and water before doing the dressing changes. 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 She has returned to work. Stressed importance of elevating her leg when she gets home to help reduce her swelling. Wound Culture obtained 12/29/22 positive for Enterococcus faecalis, Corynebacterium amycolatum, and Staphylococcus epidermidis. Treated with Augmentin and Doxycycline. Wound culture obtained 01/28/23 which was positive for Enterococcus faecalis and Corynebacterium striatum. She completed Augmentin. A wound culture was obtained 04/05/23 which was positive for Staphylococcus epidermidis and Staphylococcus haemolyticus. She was treated with IV Vancomycin while she was hospitalized. Prealbumin 13.9 from 04/09/23. Encourage increase protein intake including supplemental protein shakes for her increased metabolic demands from the wounds. Wound culture from 07/05/23 was positive for Proteus mirabilis and MRSA. She was treated with Augmentin and Doxycycline. A wound culture was obtained on 06/17/23, which was positive for Proteus mirabilis, Enterococcus faecalis, and Corynebacterium striatum. She was started on Augmentin, which she was instructed to continue. Wound culture obtained 08/18/23 which was positive for Proteus mirabilis, Enterococcus faecalis and Corynebacterium striatum. She completed the Augmentin. She is doing well with her job and states that she keeps her leg elevated when she is at home to help prevent the swelling. Discussed referring her to general surgery for further evalation and treatment options. She would like to conservatively treat this at this time with wound care. Will monitor her closely. Encourage nutritional supplementation with protein to help the healing process. Follow up 1 week.
[2024-01-31 10:58] VITALS: BP 121/76; PULSE 91; RESP 18; BMI 48.9
--- NOTE | 2024-01-31 12:16 | PCM.WC.PN ---
History of Present Illness Date of Service: 01/31/24 Chief Complaint: non-healing ulcer left medial leg History of Wound: Patient is a 23 year old female who presents to the wound healing center for evaluation and treatment of a nonhealing ulcer left medial leg. Patient is a poor historian. Reviewed notes from [facility], she had been admitted to [facility] around 11/27/22 for cellulitis and worsening infection of her left lower leg. She ended having an I&D of her left medial leg, left lateral leg and left lateral thigh. She was diagnosed with necrotizing fasciitis. Her wound cultures were positive for Enterococcus and steno. Mycoplasma IGG and IgM (+). She was sent to [facility] on 2 weeks dapto, arthur, clinda, levaquin, and micafungin. Changed Dap to to Vanc. On 12/12 stopped vanc/levaquin/arthur and started IV fluc due to diagnosis of candidemia. She was discharged home from [facility] around the second week of December. She has a history of significant for depression, personality disorder, self harm, anxiety, asthma, recurrent cellulitis and ADHD and most recently Afib and tachycardia. She states that she did not cause these wounds and did not do anything to them to make them worse. She has a history of being accused of tampering with wounds. Surgery 04/07/23 - Surgical preparation left medial leg with incision and drainage and excisional debridement nonhealing infected MRSA ulcer, (126 cm2). Operative culture were negative but she was on Vancomycin and Fluconazole for positive cultures from 04/05/23 which were positive for MRSE and Staphylococcus haemolyticus. Wound culture obtained on 12/29/22 which was positive for Enterococcus faecalis, Corynebacterium amycolatum, and MRSE. She was treated with Augmentin and Doxycycline. Wound culture obtained 01/28/23 which was positive for Enterococcus faecalis and Corynebacterium striatum. She was started on Augmentin. Wound culture obtained 07/07/23 which was positive for Proteus mirabilis and MRSA. She was treated with Doxycycline and Augmentin. Wound culture obtained 08/18/23 which was positive for Proteus mirabilis, Enterococcus faecalis and Corynebacterium striatum. She completed the Augmentin. Left leg ultrasound obtained on 01/06/23 which showed There is no evidence of left lower extremity deep vein thrombosis. She was in [facility] for a week at the end of February for subcutaneous air around her wound. She states she cultured positive for MRSA and they had her on IV antibiotics. They used a wound VAC while she was in the hospital. She was placed on Doxycycline and has finished them. Wound Care - Thera-Skin 9 applications. Today she denies fever, chills, nausea or vomiting. Progress of Wound: Left medial leg ulcer is smaller in size and beefy pink in color. The multiple areas with blisters distal and lateral to her ulcer are healing. She has been placing Mupirocin ointment on these areas. She has been wearing her compression. Her new area of concern on her sacrum has been having drainage. She has a small opening with a tunnel in the pilonidal area. Drainage is serosanguineous. The small area above the tunnel that had pink hypergranulation tissue present is resolving. She states that her mom has not having any difficulty packing this area. I had a discussion with Dr. Alfonso about this new area and he is recommending referring her to General Surgery for further evaluation. She is agreeable to this. Objective Data Objective Data Vital Signs: Vital Signs Temp Pulse Resp BP O2 Del Method 96.1 F L 91 18 121/76 H Room Air 01/17/24 10:56 01/31/24 10:58 01/31/24 10:58 01/31/24 10:58 01/31/24 10:58 Oxygen Delivery Method Room Air Weight: 276 lb Body Mass Index (BMI) 48.9 Charges/Coding Procedures Integumentary 111xxx-113xx: [id number] Stephany subq tissue 20 sq cm/< Debridement Note Debridement Note Wound debrided: #5 left medial leg Laterality: Left Wound Grade/Stage: 3 Type of Debridement: Excisional debridement Anesthesia Used: 5% Lidocaine Gel Depth: Down to and including healthy tissue and in the subcutaneous layer Percentage of wound debrided: 100 Instrument Used: 5mm curette Tissue Removed: subcutaneous tissue Severity: Fat Layer Exposed Amount of bleeding with debridement: Mild Bleeding Controlled with: Compression and gauze Patient tolerated procedure: Patient tolerated procedure well Post-Debridement Measurements and Additional Note: Post-Debridement Measurements/Treatment STALIN - Nurse 1 - General Ulcer Assessment Start: 01/12/24 15:00 Freq: Status: Active Protocol: WC.LOWEXT Activity Type Activity Date Activity User E-sign Co-sign Detail Recorded Client Recorded Date Recorded By Document 01/12/24 15:00 DL [email or web address] 01/12/24 15:06 DL Document 01/17/24 10:56 KW wound center 01/17/24 11:02 KW Document 01/24/24 11:17 KW l 01/24/24 11:20 KW Document 01/31/24 10:58 KW k 01/31/24 11:08 KW 01/12/24 01/17/24 01/24/24 15:00 10:56 11:17 WC - Today's Visit Information Type of service Follow-up Visit Follow-up Visit Follow-up Visit (Physician/JAVA WEB ENGINEER (Physician/JAVA WEB ENGINEER (Physician/JAVA WEB ENGINEER ) ) ) Arrival Mode Cane Ambulatory Ambulatory Transfer Assistance None Accompanied by MOTHER Patient Identification Verified (Name & Yes Yes Yes ) Patient Requires Transmission-Based No Precautions Height and Weight Body Mass Index (BMI) 48.9 48.9 48.9 BMI Classification Obese Obese Obese Vital Signs Temperature (97.8 F-99.1 F) 98.2 F 96.1 F L Temperature Source Temporal Temporal Pulse Rate (60-100) 87 88 82 Pulse Location Monitor Monitor Monitor Respiratory Rate (12-18) 20 H 18 18 Respiratory rate source Observation Observation Observation Oxygen Delivery Method Room Air Room Air Blood Pressure (90/60-120/80) 127/80 H 114/76 126/89 H Blood Pressure Mean (mm Hg) 95 88 101 Source Monitor Monitor Monitor Position Semi-Fowlers Semi-Fowlers Blood Pressure Location Left Forearm Left Arm History Since Last Visit- (Skip if this is Patient's initial visit) Have you changed medications since your No No No last visit? Any new allergies or adverse reactions No No No Had a fall/change in ADL's that may No No No increase risk of falls Signs or symptoms of abuse and/or No No No neglect since last visit Have you been in the hospital since your No No No last visit? Has dressing in place as prescribed Yes Yes Yes Has compression in place as prescribed Yes Yes Yes Has offloadiing in place as prescribed N/A N/A N/A Experienced any changes in pain level or Yes No No management Left Footwear Regular Shoe Regular Shoe Right Footwear Regular Shoe Regular Shoe Pain Scale: 0-10 Numeric Is Patient Pain Free? Yes Yes Yes 06/24/24 10:58 WC - Today's Visit Information Type of service Follow-up Visit (Physician/JAVA WEB ENGINEER ) Arrival Mode Ambulatory Transfer Assistance Accompanied by Patient Identification Verified (Name & Yes ) Patient Requires Transmission-Based Precautions Height and Weight Body Mass Index (BMI) 48.9 BMI Classification Obese Vital Signs Temperature (97.8 F-99.1 F) Temperature Source Pulse Rate (60-100) 91 Pulse Location Monitor Respiratory Rate (12-18) 18 Respiratory rate source Observation Oxygen Delivery Method Room Air Blood Pressure (90/60-120/80) 121/76 H Blood Pressure Mean (mm Hg) 91 Source Monitor Position Semi-Fowlers Blood Pressure Location Left Arm History Since Last Visit- (Skip if this is Patient's initial visit) Have you changed medications since your No last visit? Any new allergies or adverse reactions No Had a fall/change in ADL's that may No increase risk of falls Signs or symptoms of abuse and/or No neglect since last visit Have you been in the hospital since your No last visit? Has dressing in place as prescribed Yes Has compression in place as prescribed Yes Has offloadiing in place as prescribed N/A Experienced any changes in pain level or No management Left Footwear Regular Shoe Right Footwear Regular Shoe Pain Scale: 0-10 Numeric Is Patient Pain Free? Yes - Nurse 1 - General Ulcer Measurement Start: 01/12/24 15:00 Freq: Status: Active Protocol: Activity Type Activity Date Activity User E-sign Co-sign Detail Recorded Client Recorded Date Recorded By Document 01/12/24 15:00 DL [email or web address] 01/12/24 15:06 DL Document 01/17/24 10:56 KW wound center 01/17/24 11:02 KW Document 01/24/24 11:17 KW l 01/24/24 11:20 KW Document 01/31/24 10:58 KW k 01/31/24 11:08 KW 01/12/24 01/17/24 01/24/24 15:00 10:56 11:17 Wound Center Nurse 1 9-sacrum -Current Size (cm) - Length -Current Size (cm) - Width -Current Size (cm) - Depth -Total Square Cm -Circular Undermining -Exudate Amt -Exudate Type -Wound Margin -Granulation Amt -Granulation Quality -Texture (Brenna-wound Skin Appearance) -Moisture (Brenna-wound Skin Appearance) -Color (Brenna-wound Skin Appearance) -Temperature (Brenna-wound Skin Appearance) -Tenderness on Palpation (Brenna-wound Skin Appearance) -Ulcer Cleansing -Foul Odor after Cleansing -Anesthetic Used #5 L medial LE -Current Size (cm) - Length 1.5 1 1.1 -Current Size (cm) - Width 1.5 1.8 1.3 -Current Size (cm) - Depth 0.1 0.1 0.1 -Total Square Cm 2.25 1.8 1.43 -Epithelialization Large 67-100% -Exudate Amt Medium Small Medium -Exudate Type Serosanguineous Serosanguineous Serosanguineous -Wound Margin Distinct, Distinct, Distinct, Outline Outline Outline Attached Attached Attached -Granulation Amt Medium (34-66%) Large (67-100%) Large (67-100%) -Granulation Quality [place],Red Red Red -Necrosis Amt Medium (34-66%) Small (1-33%) Small (1-33%) -Necrotic Tissue Type Adherent Slough Adherent Slough Adherent Slough -Structure Exposed N/A -Texture (Brenna-wound Skin Appearance) Scarring,Rash Assessed Scarring -Moisture (Brenna-wound Skin Appearance) No Abnormality Assessed Assessed -Color (Brenna-wound Skin Appearance) Erythema Assessed, Assessed Erythema -Temperature (Brenna-wound Skin No Abnormality No Abnormality No Abnormality Appearance) (Pt Warm) (Pt Warm) (Pt Warm) -Tenderness on Palpation (Brenna-wound No No No Skin Appearance) -Ulcer Cleansing Soap and Water Rinsed/ Rinsed/ Irrigated with Irrigated with Saline Saline -Foul Odor after Cleansing No No No -Anesthetic Used 5% Lidocaine 5% Lidocaine 5% Lidocaine Gel Gel Gel Left Calf (cm) 45 43.5 Left Ankle (cm) 28.5 25.8 01/31/24 10:58 Wound Center Nurse 1 9-sacrum -Current Size (cm) - Length 0.8 -Current Size (cm) - Width 0.2 -Current Size (cm) - Depth 1.8 -Total Square Cm 0.16 -Circular Undermining Yes -Exudate Amt Medium -Exudate Type Serosanguineous -Wound Margin Distinct, Outline Attached -Granulation Amt Large (67-100%) -Granulation Quality Red -Texture (Brenna-wound Skin Appearance) Assessed -Moisture (Brenna-wound Skin Appearance) Assessed -Color (Brenna-wound Skin Appearance) Assessed -Temperature (Brenna-wound Skin No Abnormality Appearance) (Pt Warm) -Tenderness on Palpation (Brenna-wound No Skin Appearance) -Ulcer Cleansing Rinsed/ Irrigated with Saline -Foul Odor after Cleansing No -Anesthetic Used 5% Lidocaine Gel #5 L medial LE -Current Size (cm) - Length 2 -Current Size (cm) - Width 1.6 -Current Size (cm) - Depth 0.1 -Total Square Cm 3.2 -Epithelialization -Exudate Amt Large -Exudate Type Serosanguineous -Wound Margin Distinct, Outline Attached -Granulation Amt Large (67-100%) -Granulation Quality Red -Necrosis Amt -Necrotic Tissue Type -Structure Exposed -Texture (Brenna-wound Skin Appearance) Assessed -Moisture (Brenna-wound Skin Appearance) Assessed -Color (Brenna-wound Skin Appearance) Assessed, Erythema -Temperature (Brenna-wound Skin No Abnormality Appearance) (Pt Warm) -Tenderness on Palpation (Brenna-wound No Skin Appearance) -Ulcer Cleansing Rinsed/ Irrigated with Saline -Foul Odor after Cleansing No -Anesthetic Used 5% Lidocaine Gel Left Calf (cm) 44.6 Left Ankle (cm) 30.5 WC - Nurse 2 - General Ulcer CM Notes Start: 01/12/24 15:00 Freq: Status: Active Protocol: Activity Type Activity Date Activity User E-sign Co-sign Detail Recorded Client Recorded Date Recorded By Document 01/12/24 15:24 [facility] 01/12/24 15:28 Document 01/17/24 11:10 [facility] [id number] 01/17/24 11:18 [facility] Document 01/24/24 11:49 [id number] 01/24/24 11:52 JF Edit Result 01/24/24 11:49 JF (1) [id number] 01/24/24 11:59 JF Document 01/31/24 11:32 JF 0000 01/31/24 11:38 JF (1) 9-sacrum - Time => 11:57 - Correct Patient => Yes - Correct Side, Site, Position => Yes - Correct Procedure => Yes - Procedure Performed => Yes - Type of Procedure => Debridement - Clinical Debridement => Subcutaneous - Tissue Removed => Subcutaneous - Post Debridement (cm) - Length => 1.7 - Post Debridement (cm) - Width => 0.7 - Post Debridement (cm) - Depth => 2.2 - Total Square (Post) (cm) => 1.19 - Area of Debridement (cm) - Length => 1.7 - Area of Debridement (cm) - Width => 0.7 - Total Square (Area) (cm) => 1.19 - Tunneling => No - Undermining/Tunneling => No - Circular Undermining => No - Wound/Ulcer Outcome => Not Healed - Ulcer Cleansing => Rinsed/Irrigated => with Saline - Foul Odor after Cleansing => No - Bioengineered Tissue => No - Bleeding Controlled with => Pressure - Treatment Response => Procedure => Tolerated Well - Offloading => No - Debridement - Subq, 20sq cm => No 01/12/24 01/17/24 01/24/24 15:24 11:10 11:49 Wound Center Nurse 2 9-sacrum -Time 11:57 -Correct Patient Yes -Correct Side, Site, Position Yes -Correct Procedure Yes -Procedure Performed Yes -Type of Procedure Debridement -Clinical Debridement Subcutaneous -Tissue Removed Subcutaneous -Post Debridement (cm) - Length 1.7 -Post Debridement (cm) - Width 0.7 -Post Debridement (cm) - Depth 2.2 -Total Square (Post) (cm) 1.19 -Area of Debridement (cm) - Length 1.7 -Area of Debridement (cm) - Width 0.7 -Total Square (Area) (cm) 1.19 -Tunneling No -Tunneling Position (O'clock) -Tunneling Distance (cm) -Undermining/Tunneling No -Circular Undermining No -Wound/Ulcer Outcome Not Healed -Ulcer Cleansing Rinsed/ Irrigated with Saline -Foul Odor after Cleansing No -Bioengineered Tissue No -Bleeding Controlled with Pressure -Treatment Response Procedure Tolerated Well -Offloading No -Debridement - Subq, 1st 20sq cm No #5 L medial LE -Time 15:24 11:11 11:51 -Correct Patient Yes Yes Yes -Correct Side, Site, Position Yes Yes Yes -Correct Procedure Yes Yes Yes -Procedure Performed Yes Yes Yes -Type of Procedure Debridement Debridement Debridement -Clinical Debridement Subcutaneous Subcutaneous Subcutaneous -Tissue Removed Subcutaneous Subcutaneous Subcutaneous -Post Debridement (cm) - Length 1.6 1.5 1.5 -Post Debridement (cm) - Width 1.7 1.4 1.5 -Post Debridement (cm) - Depth 0.1 0.1 0.1 -Total Square (Post) (cm) 2.72 2.10 2.25 -Area of Debridement (cm) - Length 1.6 1.5 1.5 -Area of Debridement (cm) - Width 1.7 1.4 1.5 -Total Square (Area) (cm) 2.72 2.10 2.25 -Tunneling No No No -Undermining/Tunneling No No No -Circular Undermining No No No -Wound/Ulcer Outcome Not Healed Not Healed Not Healed -Ulcer Cleansing Rinsed/ Rinsed/ Wound Cleanser Irrigated with Irrigated with Saline Saline -Foul Odor after Cleansing No No No -Bioengineered Tissue No No No -Bleeding Controlled with Pressure Pressure Pressure -Treatment Response Procedure Procedure Procedure Tolerated Well Tolerated Well Tolerated Well -Offloading No -Debridement - Subq, 1st 20sq cm Yes Yes Yes Pain Scale: 0-10 Numeric Is Patient Pain Free? Yes Yes Yes 01/31/24 11:32 Wound Center Nurse 2 9-sacrum -Time 11:33 -Correct Patient Yes -Correct Side, Site, Position Yes -Correct Procedure Yes -Procedure Performed Yes -Type of Procedure Debridement -Clinical Debridement Subcutaneous -Tissue Removed Subcutaneous -Post Debridement (cm) - Length 0.7 -Post Debridement (cm) - Width 0.7 -Post Debridement (cm) - Depth 0.5 -Total Square (Post) (cm) 0.49 -Area of Debridement (cm) - Length 0.7 -Area of Debridement (cm) - Width 0.7 -Total Square (Area) (cm) 0.49 -Tunneling Yes -Tunneling Position (O'clock) 6 -Tunneling Distance (cm) 3.1 -Undermining/Tunneling No -Circular Undermining No -Wound/Ulcer Outcome Not Healed -Ulcer Cleansing -Foul Odor after Cleansing -Bioengineered Tissue No -Bleeding Controlled with Pressure -Treatment Response Procedure Tolerated Well -Offloading No -Debridement - Subq, 1st 20sq cm No #5 L medial LE -Time 11:34 -Correct Patient Yes -Correct Side, Site, Position Yes -Correct Procedure Yes -Procedure Performed Yes -Type of Procedure Debridement -Clinical Debridement Subcutaneous -Tissue Removed Subcutaneous -Post Debridement (cm) - Length 1.7 -Post Debridement (cm) - Width 1.5 -Post Debridement (cm) - Depth 0.1 -Total Square (Post) (cm) 2.55 -Area of Debridement (cm) - Length 1.7 -Area of Debridement (cm) - Width 1.5 -Total Square (Area) (cm) 2.55 -Tunneling No -Undermining/Tunneling No -Circular Undermining No -Wound/Ulcer Outcome Not Healed -Ulcer Cleansing Rinsed/ Irrigated with Saline -Foul Odor after Cleansing No -Bioengineered Tissue No -Bleeding Controlled with Pressure -Treatment Response Procedure Tolerated Well -Offloading No -Debridement - Subq, 1st 20sq cm Yes Pain Scale: 0-10 Numeric Is Patient Pain Free? Yes WC - Nurse 3 - General Ulcer D/C NN Start: 01/12/24 15:00 Freq: Status: Active Protocol: Activity Type Activity Date Activity User E-sign Co-sign Detail Recorded Client Recorded Date Recorded By Document 01/12/24 15:45 [place] [email or web address] 01/12/24 15:46 [place] Document 01/17/24 11:24 [facility] [id number] 01/17/24 11:24 [facility] Document 01/24/24 12:11 [id number] 01/24/24 12:12 Document 01/31/24 11:45 KW k 01/31/24 11:46 KW 01/12/24 01/17/24 01/24/24 15:45 11:24 12:11 Wound Care Center Nurse 3 9-sacrum -Ulcer Cleansing Rinsed/ Irrigated with Saline -Foul Odor after Cleansing No -Primary Dressing Applied Aquacel AG 4x4, Mepilex Border -Aquacel AG 4x4 1 -Mepilex Border 1 -Promogran Belle Matter 1 #5 L medial LE -Ulcer Cleansing Rinsed/ Rinsed/ Irrigated with Irrigated with Saline Saline -Foul Odor after Cleansing No No -Primary Dressing Applied Promogran Mepilex Border, Mepilex Border, Belle Matter Promogran Promogran Belel Matter Belle Matter -Primary Dressing Covered/Secured with Dry Gauze, Secured with Tape -Mepilex Border 1 1 -Promogran Belle Matter 1 1 1 Left -Compression Wrap Jonas Wrap Jonas Wrap -Tubular Bandage Single Layer Single Layer Single Layer -Size of Tubigrip Used Size E Size E Size E -Size E ($) 1 1 1 Treatment Response Procedure Tolerated Well Pain Scale: 0-10 Numeric Is Patient Pain Free? Yes Yes Yes WC - Visit Discharge Discharge Condition Stable Stable Ambulatory Status Ambulatory Ambulatory Transportation Private Auto Private Auto Medication Reconcilliation completed & Yes provided to patient/care provider Clinical Summary of Care Provided Yes 01/31/24 11:45 Wound Care Center Nurse 3 9-sacrum -Ulcer Cleansing -Foul Odor after Cleansing -Primary Dressing Applied Aquacel AG 4x4, Mepilex Border -Aquacel AG 4x4 1 -Mepilex Border 1 -Promogran Belle Matter #5 L medial LE -Ulcer Cleansing -Foul Odor after Cleansing -Primary Dressing Applied Mepilex Border, Promogran Belle Matter -Primary Dressing Covered/Secured with -Mepilex Border 1 -Promogran Belle Matter 1 Left -Compression Wrap Jonas Wrap -Tubular Bandage Single Layer -Size of Tubigrip Used Size E -Size E ($) 1 Treatment Response Pain Scale: 0-10 Numeric Is Patient Pain Free? Yes WC - Visit Discharge Discharge Condition Stable Ambulatory Status Ambulatory Transportation Private Auto Medication Reconcilliation completed & No provided to patient/care provider Clinical Summary of Care Provided Yes Additional Wound Wound debrided: #9 sacral pilonidal Laterality: Not Applicable Wound Grade/Stage: Stage 3 Type of Debridement: Excisional debridement Anesthesia Used: 5% Lidocaine Gel Depth: Down to and including healthy tissue and in the subcutaneous layer Percentage of wound debrided: 100 Instrument Used: 3mm curette Tissue Removed: Non viable tissue and slough Severity: Fat Layer Exposed Amount of bleeding with debridement: Mild Bleeding Controlled with: Compression and gauze Patient tolerated procedure: Patient tolerated procedure well Operative Diagnosis: Tunnel at 6 o'clock Assessment/Plan Assessment/Plan (1) Ulcer of left lower extremity with muscle involvement without evidence of necrosis: CODE(S): L97.925 - Non-pressure chronic ulcer of unspecified part of left lower leg with muscle involvement without evidence of necrosis (2) Pilonidal cyst: CODE(S): L05.91 - Pilonidal cyst without abscess (3) MRSA (methicillin resistant Staphylococcus aureus) infection: CODE(S): A49.02 - Methicillin resistant Staphylococcus aureus infection, unspecified site (4) History of incision and drainage: CODE(S): Z98.890 - Other specified postprocedural states (5) History of necrotizing fasciitis: CODE(S): Z87.39 - Personal history of other diseases of the musculoskeletal system and connective tissue (6) Borderline personality disorder: CODE(S): F60.3 - Borderline personality disorder (7) Blistering of skin: CODE(S): T14.8XXA - Other injury of unspecified body region, initial encounter PLAN: Plan Patient was evaluated at the wound healing center today. She had 9 applications of [place] to her left leg ulcer. Wound care - Left leg ulcer - Belle covered with gauze or [place] daily after washing with soap and water to ulcer. Mupirocin ointment to the blistered areas, cover with gauze. To the pilonidal area, will treat conservatively with packing with Aquacel-Ag covering with gauze. Wash all wounds with soap and water before doing the dressing changes. Compression - Single tubi-consultative sales associate with JONAS wrap on left leg for compression. She has returned to work. Stressed importance of elevating her leg when she gets home to help reduce her swelling. Wound Culture obtained 12/29/22 positive for Enterococcus faecalis, Corynebacterium amycolatum, and Staphylococcus epidermidis. Treated with Augmentin and Doxycycline. Wound culture obtained 01/28/23 which was positive for Enterococcus faecalis and Corynebacterium striatum. She completed Augmentin. A wound culture was obtained 04/05/23 which was positive for Staphylococcus epidermidis and Staphylococcus haemolyticus. She was treated with IV Vancomycin while she was hospitalized. Prealbumin 13.9 from 04/09/23. Encourage increase protein intake including supplemental protein shakes for her increased metabolic demands from the wounds. Wound culture from 07/05/23 was positive for Proteus mirabilis and MRSA. She was treated with Augmentin and Doxycycline. A wound culture was obtained on 06/17/23, which was positive for Proteus mirabilis, Enterococcus faecalis, and Corynebacterium striatum. She was started on Augmentin, which she was instructed to continue. Wound culture obtained 08/18/23 which was positive for Proteus mirabilis, Enterococcus faecalis and Corynebacterium striatum. She completed the Augmentin. She is doing well with her job and states that she keeps her leg elevated when she is at home to help prevent the swelling. Discussed referring her to general surgery for further evaluation and treatment options. I also discussed this with Dr. Alfonso and he agrees with with referral to General Surgery. Will place a referral. Encourage nutritional supplementation with protein to help the healing process. Follow up 2 weeks, since I am out of town next week.
== END 2024-02-06 23:59 | disposition home or self-care (01) ==
LOC: WC 11:00
PROVIDERS: PCP Student in an Organized Health Care Education/Training Program; Referring Provider Student in an Organized Health Care Education/Training Program; Visit Provider Nurse Practitioner Family
DX: L97.925 Non-pressure chronic ulcer of unspecified part of left lower leg with muscle involvement without evidence of necrosis (principal); F60.3 Borderline personality disorder; L05.91 Pilonidal cyst without abscess; A49.02 Methicillin resistant Staphylococcus aureus infection, unspecified site; Z87.39 Personal history of other diseases of the musculoskeletal system and connective tissue; T14.8XXA Other injury of unspecified body region, initial encounter; Z98.890 Other specified postprocedural states
CPT/HCPCS: 11042

== ENCOUNTER 2024-02-14 06:01 | Day surgery (SDC) | payer MEDICAID, SELFPAY ==
[2024-02-14] VITALS (8 sets, daily range): BP systolic 89–114; BP diastolic 62–71; PULSE 71–89; RESP 16–20; TEMP 36.2–36.6; O2SAT 93–99; BMI 53.1
[2024-02-14 06:54] LABS: Internal QC Validated? YES +Cl - CLEAR BKGD; Pregnancy, Urine Negative Negative
[2024-02-14] MEDS: Lactated Ringers 1,000 ML 15 ML IV (06:55)
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
[2024-02-14] MEDS: Cefotetan 2 GM in 0.9% NS 100 ML IV (07:28)
--- NOTE | 2024-02-14 07:30 | PILCYST_PTH ---
PATIENT: SAMEER MOORE LOC[place] [facility] [place][id number] AGE/SX: 23/F ROOM: RE02/14/[address]: Dr. Gustabo Welsh MD : [id number] BED: DIS: 02/14/2024 SPEC #: [id number] RECD: 02/14/24 10:15 STATUS: MIRIAM BERNARDINO #: [id number] GATITO: 02/14/24 07:[address]: Gustabo Welsh DEPT: SURGICAL PATHOLOGY RECD BY: Malcolm Rojas ENTERED: 02/14/24 11:13 SP TYPE: Pilonidal OTHR DR: Dr. Андрей Bailey DO Tissues: PILONIDAL TISSUE Procedures: Surgery Specimen Level III HEADER OPERATION: Excision, pilonidal cyst PRE-OP DIAGNOSIS: Pilonidal cyst TISSUE SUBMITTED: Pilonidal cyst MICROSCOPIC DIAGNOSIS Pilonidal cyst, excision: Consistent with pilonidal cyst with associated acute and chronic inflammation and granulation tissue reaction. / 02/15/2024 MICROSCOPIC DESCRIPTION Slides are reviewed. GROSS DESCRIPTION Received in fixative is one container labeled with the patient's name and designated Pilonidal cyst. The specimen consists of a piece of skin with underlying tissue measuring 2.5 x 0.3cm and up to 2.5cm in thickness. Also present in the container are multiple pieces of focally congested adipose tissue measuring in aggregate 4.0 x 3.0 x 0.6cm. Sections do not reveal any mass lesions. Conduit Bender sections are submitted in two cassettes. / 02/14/2024 TC:5 CPT:[id number]
[2024-02-14] MEDS: Bupivacaine Mpf 0.5% 30 ML VIAL (07:50)
--- NOTE | 2024-02-14 08:24 | PCM.POST.ANE ---
Anesthesia: Postop Eval I Current Vital Signs Temperature: 98 F Pulse Rate: 88 Blood Pressure: 89/62 Respiratory Rate: 20 Pulse Ox: 95 Oxygen Delivery Method: Room Air Assessment Airway patent: Yes Spontaneous unlabored respirations: Yes Mental status: Awake (AROUSES EASILY TO NAME) and Calm nausea: No Vomiting: No Anesthesia Complication: No Fluid Hydration Crystalloid volume administer (ml): 300 Total IV fluid infused: 300 Progress Note Anesthesia document: Postop Eval 1 completed: Yes
--- NOTE | 2024-02-14 08:40 | OP.PCM_ITS ---
Report of Operation Date of Procedure: 02/14/24 Pre-Operative Diagnosis: Pilonidal cyst Post-Operative Diagnosis: Same Surgery/Procedure Performed:: Pilonidal cystectomy Type of Anesthesia: Local MAC Specimen's removed: Pilonidal cyst Estimated Blood Loss (mL): 10 Description of Procedure: Patient was brought back to the operating room and MAC anesthesia induced. Pat ient was placed in prone position. The sacral area was prepped and draped in usual sterile fashion. An elliptical incision was marked around the patient's opening to her pilonidal cyst. This was injected with local anesthetic. Incision was made with a scalpel. The cyst ran more superiorly and inferiorly the incision was extended. The cyst length was about 3 to 4 cm. Once all of the cyst wall was removed back to healthy appearing fat recovery was irrigated dry and suction. Hemostasis was obtained using electrocautery. The deep tissue was closed with interrupted 2-0 Vicryl sutures. The deep dermis was closed with interrupted 2-0 Vicryl's as well. The skin was closed with interrupted 2-0 nylon sutures. Dressings were applied and patient was taken to PACU in stable condition. Admit VTE Documentation VTE Mechan Device Prophylaxis: SCD's
--- NOTE | 2024-02-14 08:43 | EX.PCM.DISCH ---
Discharge Instructions Diet Discharge Diet: No restrictions Activity Discharge Activity: May Drive (in 2-3 days and when off narcotics) and May Shower (tomorrow) Lifting Restrictions: 15 lbs for 2 weeks Dressing / Incision Call your doctor if your incision/area has: Continuous Slow Oozing, Sudden Increased Bleeding, Increased Pain/ Swelling, Increased Redness, Foul Smelling Discharge and Swelling at the incision site Call your doctor if you observe: Fever of 101 or Higher Suture Line Care: Avoid Pinching/Bending Change Dressing in: 1 day (change daily and as needed) Cleanse incision/area with: Soap & Water Follow Up Care Please Follow Up With: Gustabo Welsh MD When: Please call to schedule 1 week follow up appointment. [phone] Test Results: Test results from this visit will be discussed in further detail at your follow-up appointment, if applicable. Discharge Plan Admission Attending Provider: Gustabo Welsh Primary Care Provider: Андрей Bailey Instructions Print Language: Mozambican Discharge Orders/Prescriptions Prescriptions: New oxycodone 5 mg Tablet 5 - 10 mg PO Q4H PRN PRN (Reason: Pain Score 4-10) 5 Days Qty: 30 0RF No Action ascorbic acid (vitamin C) [Vitamin C] 1,000 mg tablet 1 g PO DAILY clonazepam 0.5 mg tablet 0.25 mg PO BID PRN (Reason: anxiety) Qty: 30 2RF doxepin 10 mg capsule 10 mg PO QHS Qty: 30 2RF vilazodone 10 mg tablet 30 mg PO DAILY Qty: 90 2RF Rx Instructions: must administer with a meal/food lithium carbonate 300 mg capsule 900 mg PO QHS Qty: 90 2RF buspirone 30 mg tablet 30 mg PO BID 30 Days Qty: 60 2RF Rexulti 4 mg tablet 4 mg PO DAILY Qty: 30 1RF dextroamphetamine-amphetamine 20 mg capsule,extended release 24hr 20 mg PO DAILY 30 Days Qty: 30 0RF magnesium oxide 400 MG tablet 400 mg PO DAILY melatonin 10 MG tablet 20 mg PO QHS riboflavin (vitamin B2) 400 MG tablet 400 mg PO DAILY albuterol sulfate 1 PUFF inhaler 2 puff inhalation Q8H PRN (Reason: ASTHMA) Dulera 200-5 mcg/actuation Hfa Aerosol Inhaler 2 puff INHALATION BID ferrous sulfate [FeroSul] 325 mg (65 mg iron) Tablet 325 mg PO DAILY promethazine 25 mg Tablet 25 mg PO Q8H PRN (Reason: NAUSEA/VOMITING) pramipexole [Mirapex] 0.125 mg Tablet 0.25 mg PO DAILY Rx Instructions: TAKE TWO TABLET BY MOUTH EVERY MORNING (0.25MG) AND 3 TABLETS EVERY EVENING (0.375MG) docusate sodium [Colace] 100 mg Capsule 100 mg PO BID montelukast 10 mg Tablet 10 mg PO DAILY cholecalciferol (vitamin D3) 125 mcg (5,000 unit) Capsule 125 mcg PO DAILY B12 5,000-100 mcg Lozenge 1 lesly SUBLINGUAL DAILY cetirizine 10 mg tablet 10 mg PO DAILY propranolol 10 mg tablet 10 mg PO BID pramipexole 0.125 mg tablet 0.375 mg PO QPM Rx Instructions: TAKE TWO TABLET BY MOUTH EVERY MORNING (0.25MG) AND 3 TABLETS EVERY EVENING (0.375MG) diltiazem HCl 240 mg capsule,extended release 24hr 240 mg PO DAILY omeprazole 40 mg capsule,delayed release(DR/EC) 40 mg PO BID cyclobenzaprine 10 mg tablet 10 mg PO BID mupirocin 2 % ointment 1 applic topical BID 10 Days Qty: 22 0RF Rx Instructions: Apply to left leg blisters naltrexone 50 mg tablet 50 mg PO DAILY Qty: 30 2RF Referrals / Follow Up: Андрей Bailey DO [Primary Care Provider] - Disposition Disposition (needs filled in before D/C Order can be placed): Home, Self Care
--- NOTE | 2024-02-14 09:11 | POSTOPAN2_ITS ---
Anesthesia Postop Eval I Sum Postop Eval Completion status Anesthesia document: Postop Eval 1 completed: Yes Anesthesia Postop Eval I Summary Anesthesia Postop Eval I Summary: Anesthesia Postop Eval I: Assessment Summary Airway patent Yes 02/14/24 08:25 [email or web address] Spontaneous unlabored Yes 02/14/24 08:25 [email or web address] respirations Mental status Awake - AROUSES 02/14/24 08:25 [email or web address] EASILY TO NAME, Calm nausea No 02/14/24 08:25 [email or web address] Vomiting No 02/14/24 08:25 [email or web address] Anesthesia Postop Eval I: Fluid Summary Crystalloid volume administer 300 02/14/24 08:25 [email or web address] (ml) Colloids volume administered ( ml) Blood Product volume administered (ml) Total IV fluid infused 300 02/14/24 08:25 [email or web address] Anesthesia Postop Eval I: Summary Notes Anesthesia Complication No 02/14/24 08:25 [email or web address] Anesthesia Complication Comment: Post-operative progress note Anesthesia: Postop Eval II Evaluation Mental status: Awake Pain Level: 0 nausea: No Vomiting: No Complications Anesthesia Complication: No
--- NOTE | 2024-02-14 09:11 | PCM.POSTANE2 ---
Anesthesia Postop Eval I Sum Postop Eval Completion status Anesthesia document: Postop Eval 1 completed: Yes Anesthesia Postop Eval I Summary Anesthesia Postop Eval I Summary: Anesthesia Postop Eval I: Assessment Summary Airway patent Yes 02/14/24 08:25 [email or web address] Spontaneous unlabored Yes 02/14/24 08:25 [email or web address] respirations Mental status Awake - AROUSES 02/14/24 08:25 [email or web address] EASILY TO NAME, Calm nausea No 02/14/24 08:25 [email or web address] Vomiting No 02/14/24 08:25 [email or web address] Anesthesia Postop Eval I: Fluid Summary Crystalloid volume administer 300 02/14/24 08:25 [email or web address] (ml) Colloids volume administered ( ml) Blood Product volume administered (ml) Total IV fluid infused 300 02/14/24 08:25 [email or web address] Anesthesia Postop Eval I: Summary Notes Anesthesia Complication No 02/14/24 08:25 [email or web address] Anesthesia Complication Comment: Post-operative progress note Anesthesia: Postop Eval II Evaluation Mental status: Awake Pain Level: 0 nausea: No Vomiting: No Complications Anesthesia Complication: No
[2024-02-14] MEDS: oxyCODONE 5 MG Tablet PO (09:32)
== END 2024-02-14 10:35 | disposition home or self-care (01) ==
LOC: SDC 06:02 → AC 06:04
PROVIDERS: Anesthesiology; PCP Student in an Organized Health Care Education/Training Program; Referring Provider Surgery; Visit Provider Surgery
PROC: (CPT 11772; principal; 2024-02-14 07:15)
DX: L05.91 Pilonidal cyst without abscess (principal); F60.3 Borderline personality disorder; F31.9 Bipolar disorder, unspecified; E66.01 Morbid (severe) obesity due to excess calories; Z68.43 Body mass index [BMI] 50.0-59.9, adult; J45.909 Unspecified asthma, uncomplicated; I10 Essential (primary) hypertension; G25.81 Restless legs syndrome; G47.30 Sleep apnea, unspecified; Z79.51 Long term (current) use of inhaled steroids; Z79.899 Other long term (current) drug therapy
CPT/HCPCS: 11772; 00300; 81025; 88304; J7120; J2405

== ENCOUNTER 2024-03-06 11:00 | Outpatient (RCR) | payer MEDICAID, SELFPAY ==
[2024-02-07 00:11] VITALS: BP 127/86; PULSE 94; RESP 16; TEMP 35.7; BMI 48.9
[2024-02-21 11:05] VITALS: BP 123/77; PULSE 83; RESP 18; TEMP 36.4; BMI 48.9
--- NOTE | 2024-02-21 12:02 | PN.PCM_ITS ---
History of Present Illness Date of Service: 02/21/24 Chief Complaint: non-healing ulcer left medial leg History of Wound: Patient is a 23 year old female who presents to the wound healing center for evaluation and treatment of a nonhealing ulcer left medial leg. Patient is a poor historian. Reviewed notes from [facility], she had been admitted to [facility] around 11/27/22 for cellulitis and worsening infection of her left lower leg. She ended having an I&D of her left medial leg, left lateral leg and left lateral thigh. She was diagnosed with necrotizing fasciitis. Her wound cultures were positive for Enterococcus and steno. Mycoplasma IGG and IgM (+). She was sent to [facility] on 2 weeks dapto, arthur, clinda, levaquin, and micafungin. Changed Dap to to Vanc. On 12/12 stopped vanc/levaquin/arthur and started IV fluc due to diagnosis of candidemia. She was discharged home from [facility] around the second week of December. She has a history of significant for depression, personality disorder, self harm, anxiety, asthma, recurrent cellulitis and ADHD and most recently Afib and tachycardia. She states that she did not cause these wounds and did not do anything to them to make them worse. She has a history of being accused of tampering with wounds. Surgery 04/07/23 - Surgical preparation left medial leg with incision and drainage and excisional debridement nonhealing infected MRSA ulcer, (126 cm2). Operative culture were negative but she was on Vancomycin and Fluconazole for positive cultures from 04/05/23 which were positive for MRSE and Staphylococcus haemolyticus. Wound culture obtained on 12/29/22 which was positive for Enterococcus faecalis, Corynebacterium amycolatum, and MRSE. She was treated with Augmentin and Doxycycline. Wound culture obtained 01/28/23 which was positive for Enterococcus faecalis and Corynebacterium striatum. She was started on Augmentin. Wound culture obtained 07/07/23 which was positive for Proteus mirabilis and MRSA. She was treated with Doxycycline and Augmentin. Wound culture obtained 08/18/23 which was positive for Proteus mirabilis, Enterococcus faecalis and Corynebacterium striatum. She completed the Augmentin. Left leg ultrasound obtained on 01/06/23 which showed There is no evidence of left lower extremity deep vein thrombosis. She was in [facility] for a week at the end of February 2023 for subcutaneous air around her wound. She states she cultured positive for MRSA and they had her on IV antibiotics. They used a wound VAC while she was in the hospital. She was placed on Doxycycline and has finished them. Wound Care - Thera-Skin 9 applications. Surgery 02/14/[address] Miller for Pilonidal cystectomy. Today she denies fever, chills, nausea or vomiting. Progress of Wound: Left medial leg ulcer is much smaller in size and beefy pink in color. The mu ltiple areas with blisters distal and lateral to her ulcer are healed. She had surgery last week for her pilonidal cyst by Dr. Miller. She states that she started to have some drainage from the area over the weekend and it has increased today. She believes she pulled a stitch on the top. She declined having me look at it. She has follow up with Dr. Miller tomorrow. She denies fever, chills, n/v/d. She overall looks well. Objective Data Objective Data Vital Signs: Vital Signs Temp Pulse Resp BP 97.5 F L 83 18 123/77 H 02/21/24 11:05 02/21/24 11:05 02/21/24 11:05 02/21/24 11:05 Weight: 276 lb Body Mass Index (BMI) 48.9 Charges/Coding Procedures Integumentary 111xxx-113xx: [id number] Stephany subq tissue 20 sq cm/< Debridement Note Debridement Note Wound debrided: #5 left medial leg Laterality: Left Wound Grade/Stage: 3 Type of Debridement: Excisional debridement Anesthesia Used: 5% Lidocaine Gel Depth: Down to and including healthy tissue and in the subcutaneous layer Percentage of wound debrided: 100 Instrument Used: 3mm curette Tissue Removed: subcutaneous tissue Severity: Fat Layer Exposed Amount of bleeding with debridement: Mild Bleeding Controlled with: Compression and gauze Patient tolerated procedure: Patient tolerated procedure well Post-Debridement Measurements and Additional Note: Post-Debridement Measurements/Treatment STALIN - Nurse 1 - General Ulcer Assessment Start: 02/21/24 11:05 Freq: Status: Active Protocol: BOBO Activity Type Activity Date Activity User E-sign Co-sign Detail Recorded Client Recorded Date Recorded By Document 02/21/24 11:05 DL [email or web address] 02/21/24 11:17 DL 02/21/24 11:05 - Today's Visit Information Type of service Follow-up Visit (Physician/AQUATIC SCIENTIST ) Arrival Mode Ambulatory Transfer Assistance None Patient Identification Verified (Name & Yes ) Patient Requires Transmission-Based No Precautions Height and Weight Body Mass Index (BMI) 48.9 BMI Classification Obese Vital Signs Temperature (97.8 F-99.1 F) 97.5 F L Temperature Source Temporal Pulse Rate (60-100) 83 Pulse Location Monitor Respiratory Rate (12-18) 18 Respiratory rate source Observation Blood Pressure (90/60-120/80) 123/77 H Blood Pressure Mean (mm Hg) 92 Source Monitor History Since Last Visit- (Skip if this is Patient's initial visit) Have you changed medications since your No last visit? Any new allergies or adverse reactions No Had a fall/change in ADL's that may No increase risk of falls Signs or symptoms of abuse and/or No neglect since last visit Have you been in the hospital since your No last visit? Has dressing in place as prescribed Yes Has compression in place as prescribed Yes Has offloadiing in place as prescribed N/A Experienced any changes in pain level or No management Pain Scale: 0-10 Numeric Is Patient Pain Free? Yes - Nurse 1 - General Ulcer Measurement Start: 02/21/24 11:05 Freq: Status: Active Protocol: Activity Type Activity Date Activity User E-sign Co-sign Detail Recorded Client Recorded Date Recorded By Document 02/21/24 11:05 [email or web address] 02/21/24 11:17 02/21/24 11:05 Wound Center Nurse 1 9-sacrum -Current Size (cm) - Length 0.1 -Current Size (cm) - Width 0.1 -Current Size (cm) - Depth 0.1 -Total Square Cm 0.01 -Photo Taken Yes -Exudate Amt Medium -Exudate Type Serosanguineous -Wound Margin Indistinct, Non -Visible -Granulation Amt Large (67-100%) -Granulation Quality Pale -Necrosis Amt None Present (0 %) -Structure Exposed N/A -Texture (Brenna-wound Skin Appearance) Scarring -Moisture (Brenna-wound Skin Appearance) No Abnormality -Color (Brenna-wound Skin Appearance) No Abnormality -Temperature (Brenna-wound Skin No Abnormality Appearance) (Pt Warm) -Ulcer Cleansing Soap and Water -Foul Odor after Cleansing No -Wound Comment(s) Sutures intact. Sl dehisced at 12:00. pt has f/u with surgeon 02/21. #5 L medial LE -Current Size (cm) - Length 0.8 -Current Size (cm) - Width 0.5 -Current Size (cm) - Depth 0.1 -Total Square Cm 0.40 -Photo Taken Yes -Exudate Amt Small -Exudate Type Serosanguineous -Wound Margin Distinct, Outline Attached -Granulation Amt Small (1-33%) -Granulation Quality Red -Necrosis Amt None Present (0 %) -Structure Exposed N/A -Texture (Brenna-wound Skin Appearance) Scarring -Moisture (Brenna-wound Skin Appearance) No Abnormality -Color (Brenna-wound Skin Appearance) Hemosiderin Staining -Temperature (Brenna-wound Skin No Abnormality Appearance) (Pt Warm) -Tenderness on Palpation (Brenna-wound Yes Skin Appearance) -Ulcer Cleansing Soap and Water -Foul Odor after Cleansing No -Anesthetic Used 5% Lidocaine Gel WC - Nurse 2 - General Ulcer CM Notes Start: 02/21/24 11:05 Freq: Status: Active Protocol: Activity Type Activity Date Activity User E-sign Co-sign Detail Recorded Client Recorded Date Recorded By Document 02/21/24 11:40 [facility] [email or web address] 02/21/24 11:46 [facility] 02/21/24 11:40 Wound Center Nurse 2 9-sacrum -Post Debridement (cm) - Length 0.1 -Post Debridement (cm) - Width 0.1 -Post Debridement (cm) - Depth 0.1 -Total Square (Post) (cm) 0.01 -Area of Debridement (cm) - Length 0.1 -Area of Debridement (cm) - Width 0.1 -Total Square (Area) (cm) 0.01 -Wound/Ulcer Outcome Not Healed -Wound Comment(s) surgical closure w/ dr miller . he will follow #5 L medial LE -Time 11:40 -Correct Patient Yes -Correct Side, Site, Position Yes -Correct Procedure Yes -Procedure Performed Yes -Type of Procedure Debridement -Clinical Debridement Subcutaneous -Tissue Removed Subcutaneous -Post Debridement (cm) - Length 0.8 -Post Debridement (cm) - Width 0.7 -Post Debridement (cm) - Depth 0.1 -Total Square (Post) (cm) 0.56 -Area of Debridement (cm) - Length 0.8 -Area of Debridement (cm) - Width 0.7 -Total Square (Area) (cm) 0.56 -Tunneling No -Undermining/Tunneling No -Circular Undermining No -Wound/Ulcer Outcome Not Healed -Ulcer Cleansing Rinsed/ Irrigated with Saline -Foul Odor after Cleansing No -Bioengineered Tissue No -Bleeding Controlled with Pressure -Treatment Response Procedure Tolerated Well -Debridement - Subq, 1st 20sq cm Yes Pain Scale: 0-10 Numeric Is Patient Pain Free? Yes - Nurse 3 - General Ulcer D/C NN Start: 02/21/24 11:05 Freq: Status: Active Protocol: Activity Type Activity Date Activity User E-sign Co-sign Detail Recorded Client Recorded Date Recorded By Document 02/21/24 11:48 KW g 02/21/24 11:52 KW 02/21/24 11:48 Wound Care Center Nurse 3 #5 L medial LE -Primary Dressing Applied Mepilex Border, Promogran Belle Matter -Mepilex Border 1 -Promogran Belle Matter 1 Pain Scale: 0-10 Numeric Is Patient Pain Free? Yes - Visit Discharge Discharge Condition Stable Ambulatory Status Ambulatory Transportation Private Auto Medication Reconcilliation completed & No provided to patient/care provider Clinical Summary of Care Provided Yes Assessment/Plan Assessment/Plan (1) Ulcer of left lower extremity with muscle involvement without evidence of necrosis: CODE(S): L97.925 - Non-pressure chronic ulcer of unspecified part of left lower leg with muscle involvement without evidence of necrosis (2) Pilonidal cyst: CODE(S): L05.91 - Pilonidal cyst without abscess (3) MRSA (methicillin resistant Staphylococcus aureus) infection: CODE(S): A49.02 - Methicillin resistant Staphylococcus aureus infection, unspecified site (4) History of incision and drainage: CODE(S): Z98.890 - Other specified postprocedural states (5) History of necrotizing fasciitis: CODE(S): Z87.39 - Personal history of other diseases of the mus culoskeletal system and connective tissue (6) Borderline personality disorder: CODE(S): F60.3 - Borderline personality disorder PLAN: Plan Patient was evaluated at the wound healing center today. She had 9 applications of [place] to her left leg ulcer. Wound care - Left leg ulcer - Moistened Belle covered with gauze or [place] SAP daily after washing with soap and water to ulcer. Her Pilonidal area is being managed by Dr. Miller now. She states she has called him to notify him that she thinks a stitch came out and she has a follow up appointment tomorrow with him. Compression - Single tubi-java spring developer with MOHINI wrap on left leg for compression. Wound Culture obtained 12/29/22 positive for Enterococcus faecalis, Corynebacterium amycolatum, and Staphylococcus epidermidis. Treated with Augmentin and Doxycycline. Wound culture obtained 01/28/23 which was positive for Enterococcus faecalis and Corynebacterium striatum. She completed Augmentin. A wound culture was obtained 04/05/23 which was positive for Staphylococcus epidermidis and Staphylococcus haemolyticus. She was treated with IV Vancomycin while she was hospitalized. Prealbumin 13.9 from 04/09/23. Encourage increase protein intake including supplemental protein shakes for her increased metabolic demands from the wounds. Wound culture from 07/05/23 was positive for Proteus mirabilis and MRSA. She was treated with Augmentin and Doxycycline. A wound culture was obtained on 06/17/23, which was positive for Proteus mirabilis, Enterococcus faecalis, and Corynebacterium striatum. She was started on Augmentin, which she was instructed to continue. Wound culture obtained 08/18/23 which was positive for Proteus mirabilis, Enterococcus faecalis and Corynebacterium striatum. She completed the Augmentin. Encourage nutritional supplementation with protein to help the healing process. Follow up 1 week.
--- NOTE | 2024-02-23 09:19 | WC ---
PHOTO 02/21/24 CY
[2024-02-28 11:02] VITALS: BP 116/69; PULSE 87; RESP 18; TEMP 35.3; BMI 48.9
--- NOTE | 2024-02-28 12:00 | PN.PCM_ITS ---
History of Present Illness Date of Service: 02/28/24 Chief Complaint: non-healing ulcer left medial leg History of Wound: Patient is a 23 year old female who presents to the wound healing center for evaluation and treatment of a nonhealing ulcer left medial leg. Patient is a poor historian. Reviewed notes from [facility], she had been admitted to [place] around 11/27/22 for cellulitis and worsening infection of her left lower leg. She ended having an I&D of her left medial leg, left lateral leg and left lateral thigh. She was diagnosed with necrotizing fasciitis. Her wound cultures were positive for Enterococcus and steno. Mycoplasma IGG and IgM (+). She was sent to [facility] on 2 weeks dapto, arthur, clinda, levaquin, and micafungin. Changed Dap to to Vanc. On 12/12 stopped vanc/levaquin/arthur and started IV fluc due to diagnosis of candidemia. She was discharged home from [facility] around the second week of December. She has a history of significant for depression, personality disorder, self harm, anxiety, asthma, recurrent cellulitis and ADHD and most recently Afib and tachycardia. She states that she did not cause these wounds and did not do anything to them to make them worse. She has a history of being accused of tampering with wounds. Surgery 04/07/23 - Surgical preparation left medial leg with incision and drainage and excisional debridement nonhealing infected MRSA ulcer, (126 cm2). Operative culture were negative but she was on Vancomycin and Fluconazole for positive cultures from 04/05/23 which were positive for MRSE and Staphylococcus haemolyticus. Wound culture obtained on 12/29/22 which was positive for Enterococcus faecalis, Corynebacterium amycolatum, and MRSE. She was treated with Augmentin and Doxycycline. Wound culture obtained 01/28/23 which was positive for Enterococcus faecalis and Corynebacterium striatum. She was started on Augmentin. Wound culture obtained 07/07/23 which was positive for Proteus mirabilis and MRSA. She was treated with Doxycycline and Augmentin. Wound culture obtained 08/18/23 which was positive for Proteus mirabilis, Enterococcus faecalis and Corynebacterium striatum. She completed the Augmentin. Left leg ultrasound obtained on 01/06/23 which showed There is no evidence of left lower extremity deep vein thrombosis. She was in [facility] for a week at the end of February 2023 for subcutaneous air around her wound. She states she cultured positive for MRSA and they had her on IV antibiotics. They used a wound VAC while she was in the hospital. She was placed on Doxycycline and has finished them. Wound Care - Thera-Skin 9 applications. Surgery 02/14/[address] Miller for Pilonidal cystectomy. Today she denies fever, chills, nausea or vomiting. Progress of Wound: Left medial leg ulcer is healed today with very fragile epithelial tissue. She had surgery on 02/14/24, for her pilonidal cyst by Dr. Miller. Last week she started to have some drainage. She followed up with the surgeon's office and was told to pack the area with iodoform. She states that she left a message with his office last week about being seen at the wound center but has not heard back from his office. Pilonidal wound is beefy pink, no odor, it looks stable. Objective Data Objective Data Vital Signs: Vital Signs Temp Pulse Resp BP O2 Del Method 95.6 F L 87 18 116/69 Room Air 02/28/24 11:02 02/28/24 11:02 02/28/24 11:02 02/28/24 11:02 02/28/24 11:02 Oxygen Delivery Method Room Air Weight: 276 lb Body Mass Index (BMI) 48.9 Charges/Coding Visit Charges Office Visits / Consults: 12655 OV L3 Est 20min Physical Exam Const alert and oriented x3 General Appearance: cooperative HEENT normocephalic Head and Scalp: atraumatic Eyes General Eye: normal appearance of both eyes Resp normal respiratory effort and no use of accessory muscles Effort and Inspection: able to speak in complete sentences Cardio peripheral pulses 2+ throughout Skin Wound Narrative: Left lateral leg ulcer is healed with fragile epithelialization. Pilonidal wound is beefy pink, no odor, brenna wound is clear. Neuro CN's II-XII intact bilaterally Psych affect normal Debridement Note Debridement Note No debridement was completed: No debridement was completed today Post-Debridement Measurements and Additional Note: Post-Debridement Measurements/Treatment STALIN - Nurse 1 - General Ulcer Assessment Start: 02/21/24 11:05 Freq: Status: Active Protocol: BOBO Activity Type Activity Date Activity User E-sign Co-sign Detail Recorded Client Recorded Date Recorded By Document 02/21/24 11:05 DL [id number] 02/21/24 11:17 DL Document 02/28/24 11:02 KW l 02/28/24 11:15 KW 02/21/24 02/28/24 11:05 11:02 - Today's Visit Information Type of service Follow-up Visit Follow-up Visit (Physician/GLOVE FORMER (Physician/GLOVE FORMER ) ) Arrival Mode Ambulatory Ambulatory Transfer Assistance None Patient Identification Verified (Name & Yes Yes ) Patient Requires Transmission-Based No Precautions Height and Weight Body Mass Index (BMI) 48.9 48.9 BMI Classification Obese Obese Vital Signs Temperature (97.8 F-99.1 F) 97.5 F L 95.6 F L Temperature Source Temporal Temporal Pulse Rate (60-100) 83 87 Pulse Location Monitor Monitor Respiratory Rate (12-18) 18 18 Respiratory rate source Observation Observation Oxygen Delivery Method Room Air Blood Pressure (90/60-120/80) 123/77 H 116/69 Blood Pressure Mean (mm Hg) 92 84 Source Monitor Monitor Position Semi-Fowlers Blood Pressure Location Left Forearm History Since Last Visit- (Skip if this is Patient's initial visit) Have you changed medications since your No No last visit? Any new allergies or adverse reactions No No Had a fall/change in ADL's that may No No increase risk of falls Signs or symptoms of abuse and/or No No neglect since last visit Have you been in the hospital since your No No last visit? Has dressing in place as prescribed Yes Yes Has compression in place as prescribed Yes Yes Has offloadiing in place as prescribed N/A N/A Experienced any changes in pain level or No No management Left Footwear Regular Shoe Right Footwear Regular Shoe Pain Scale: 0-10 Numeric Is Patient Pain Free? Yes Yes - Nurse 1 - General Ulcer Measurement Start: 02/21/24 11:05 Freq: Status: Active Protocol: Activity Type Activity Date Activity User E-sign Co-sign Detail Recorded Client Recorded Date Recorded By Document 02/21/24 11:05 DL ..25.7 02/21/24 11:17 DL Document 02/28/24 11:02 KW l 02/28/24 11:15 KW 02/21/24 02/28/24 11:05 11:02 Wound Center Nurse 1 #5 L medial LE -Current Size (cm) - Length 0.8 0.2 -Current Size (cm) - Width 0.5 0.2 -Current Size (cm) - Depth 0.1 0.1 -Total Square Cm 0.40 0.04 -Date of Last Picture (Recall this 02/28/24 field) -Photo Taken Yes -Epithelialization Large 67-100% -Exudate Amt Small None Present -Exudate Type Serosanguineous -Wound Margin Distinct, Distinct, Outline Outline Attached Attached -Granulation Amt Small (1-33%) -Granulation Quality Red -Necrosis Amt None Present (0 %) -Structure Exposed N/A -Texture (Brenna-wound Skin Appearance) Scarring Assessed, Scarring -Moisture (Brenna-wound Skin Appearance) No Abnormality Assessed -Color (Brenna-wound Skin Appearance) Hemosiderin Assessed Staining -Temperature (Brenna-wound Skin No Abnormality No Abnormality Appearance) (Pt Warm) (Pt Warm) -Tenderness on Palpation (Brenna-wound Yes No Skin Appearance) -Ulcer Cleansing Soap and Water Rinsed/ Irrigated with Saline -Foul Odor after Cleansing No -Anesthetic Used 5% Lidocaine 5% Lidocaine Gel Gel -Wound Comment(s) scabbed 9-sacrum -Current Size (cm) - Length 0.1 5 -Current Size (cm) - Width 0.1 1 -Current Size (cm) - Depth 0.1 4.2 -Total Square Cm 0.01 5 -Date of Last Picture (Recall this 02/28/24 field) -Photo Taken Yes -Tunneling Yes -Tunneling Position (O'clock) 8 -Tunneling Distance (cm) 6 -Exudate Amt Medium Medium -Exudate Type Serosanguineous Serosanguineous -Wound Margin Indistinct, Non Distinct, -Visible Outline Attached -Granulation Amt Large (67-100%) Large (67-100%) -Granulation Quality Pale Red -Necrosis Amt None Present (0 %) -Structure Exposed N/A -Texture (Brenna-wound Skin Appearance) Scarring Assessed -Moisture (Brenna-wound Skin Appearance) No Abnormality Assessed -Color (Brenna-wound Skin Appearance) No Abnormality Assessed -Temperature (Brenna-wound Skin No Abnormality No Abnormality Appearance) (Pt Warm) (Pt Warm) -Tenderness on Palpation (Brenna-wound No Skin Appearance) -Ulcer Cleansing Soap and Water Soap and Water -Foul Odor after Cleansing No No -Anesthetic Used 4% Lidocaine Solution -Wound Comment(s) Sutures intact. Sl dehisced at 12:00. pt has f/u with surgeon 02/21. Left Calf (cm) 45 Left Ankle (cm) 26.6 WC - Nurse 2 - General Ulcer CM Notes Start: 02/21/24 11:05 Freq: Status: Active Protocol: Activity Type Activity Date Activity User E-sign Co-sign Detail Recorded Client Recorded Date Recorded By Document 02/21/24 11:40 BMF [email or web address] 02/21/24 11:46 BMF Document 02/28/24 11:23 BMF [email or web address] 02/28/24 11:33 BMF 02/21/24 02/28/24 11:40 11:23 Wound Center Nurse 2 #5 L medial LE -Time 11:40 -Correct Patient Yes -Correct Side, Site, Position Yes -Correct Procedure Yes -Procedure Performed Yes -Type of Procedure Debridement -Clinical Debridement Subcutaneous -Tissue Removed Subcutaneous -Post Debridement (cm) - Length 0.8 0.1 -Post Debridement (cm) - Width 0.7 0.1 -Post Debridement (cm) - Depth 0.1 0.1 -Total Square (Post) (cm) 0.56 0.01 -Area of Debridement (cm) - Length 0.8 0.1 -Area of Debridement (cm) - Width 0.7 0.1 -Total Square (Area) (cm) 0.56 0.01 -Tunneling No -Undermining/Tunneling No -Circular Undermining No -Wound/Ulcer Outcome Not Healed Healed- Epithelialized -Ulcer Cleansing Rinsed/ Irrigated with Saline -Foul Odor after Cleansing No -Bioengineered Tissue No -Bleeding Controlled with Pressure NA -Treatment Response Procedure Tolerated Well -Debridement - Subq, 1st 20sq cm Yes 9-sacrum -Time 11:26 -Post Debridement (cm) - Length 0.1 5 -Post Debridement (cm) - Width 0.1 1.5 -Post Debridement (cm) - Depth 0.1 4.6 -Total Square (Post) (cm) 0.01 7.5 -Area of Debridement (cm) - Length 0.1 5 -Area of Debridement (cm) - Width 0.1 1.5 -Total Square (Area) (cm) 0.01 7.5 -Tunneling Yes -Tunneling Position (O'clock) 12 -Tunneling Distance (cm) 1.7 -Wound/Ulcer Outcome Not Healed Not Healed -Bleeding Controlled with NA -Wound Comment(s) surgical samir to call closure w/ dr miller's paul 02/13/ office to see 24. he will if wound center follow can manage this wound post op per pt's request Pain Scale: 0-10 Numeric Is Patient Pain Free? Yes Yes - Nurse 3 - General Ulcer D/C NN Start: 02/21/24 11:05 Freq: Status: Active Protocol: Activity Type Activity Date Activity User E-sign Co-sign Detail Recorded Client Recorded Date Recorded By Document 02/21/24 11:48 KW g 02/21/24 11:52 KW Document 02/28/24 11:36 KW l 02/28/24 11:44 KW 02/21/24 02/28/24 11:48 11:36 Wound Care Center Nurse 3 #5 L medial LE -Primary Dressing Applied Mepilex Border, Promogran Belle Matter -Mepilex Border 1 -Promogran Belle Matter 1 9-sacrum -Primary Dressing Applied Aquacel AG 4x4 -Primary Dressing Covered/Secured with Dry Gauze, Secured with Tape -Aquacel AG 4x4 1 Left -Compression Wrap Jonas Wrap -Tubular Bandage Single Layer -Size of Tubigrip Used Size E -Size E ($) 1 Pain Scale: 0-10 Numeric Is Patient Pain Free? Yes Yes - Visit Discharge Discharge Condition Stable Stable Ambulatory Status Ambulatory Ambulatory Transportation Private Auto Private Auto Medication Reconcilliation completed & No provided to patient/care provider Clinical Summary of Care Provided Yes Assessment/Plan Assessment/Plan (1) Ulcer of left lower extremity with muscle involvement without evidence of necrosis: CODE(S): L97.925 - Non-pressure chronic ulcer of unspecified part of left lower leg with muscle involvement without evidence of necrosis (2) Pilonidal cyst: CODE(S): L05.91 - Pilonidal cyst without abscess (3) MRSA (methicillin resistant Staphylococcus aureus) infection: CODE(S): A49.02 - Methicillin resistant Staphylococcus aureus infection, unspecified site (4) History of incision and drainage: CODE(S): Z98.890 - Other specified postprocedural states (5) History of necrotizing fasciitis: CODE(S): Z87.39 - Personal history of other diseases of the musculoskeletal system and connective tissue (6) Borderline personality disorder: CODE(S): F60.3 - Borderline personality disorder (7) S/P pilonidal cyst excision: CODE(S): Z98.890 - Other specified postprocedural states PLAN: Plan Patient was evaluated at the wound healing center today. She had 9 applications of Ther[place]in to her left leg ulcer. Her left leg ulcer is healed today. I looked at her pilonidal wound. She states that she is is on Augmentin at this time. No debridement performed. Wound care - Left leg ulcer is healed but will cover with dry gauze to help protect it until it becomes more stable. Pilonidal wound - Aquacel-Ag covered with fluffed gauze and topped with ABD daily and as needed. She will wash with antibacterial soap and water at the time of the dressing change. I contacted Dr. Miller and he is fine with her being seen at the wound healing center. We will plan on applying for a wound VAC next week. Compression - Single tubi-directional driller with JONAS wrap on left leg for compression. She can go to [facility] to be measured for OTC compression stockings. Wound Culture obtained 12/29/22 positive for Enterococcus faecalis, Corynebacterium amycolatum, and Staphylococcus epidermidis. Treated with Augmentin and Doxycycline. Wound culture obtained 01/28/23 which was positive for Enterococcus faecalis and Corynebacterium striatum. She completed Augmentin. A wound culture was obtained 04/05/23 which was positive for Staphylococcus epidermidis and Staphylococcus haemolyticus. She was treated with IV Vancomycin while she was hospitalized. Prealbumin 13.9 from 04/09/23. Encourage increase protein intake including supplemental protein shakes for her increased metabolic demands from the wounds. Wound culture from 07/05/23 was positive for Proteus mirabilis and MRSA. She was treated with Augmentin and Doxycycline. A wound culture was obtained on 06/17/23, which was positive for Proteus mirabilis, Enterococcus faecalis, and Corynebacterium striatum. She was started on Augmentin, which she was instructed to continue. Wound culture obtained 1/10/24 which was positive for Proteus mirabilis, Enterococcus faecalis and Corynebacterium striatum. Treated with Augmentin. Encourage nutritional supplementation with protein to help the healing process. Follow up 1 week.
[2024-03-06 10:55] VITALS: BP 118/73; PULSE 87; RESP 18; TEMP 35.4; BMI 48.9
--- NOTE | 2024-03-06 12:22 | PCM.WC.PN ---
History of Present Illness Date of Service: 03/06/24 Chief Complaint: non-healing ulcer left medial leg History of Wound: Patient is a 23 year old female who presents to the wound healing center for evaluation and treatment of a nonhealing ulcer left medial leg. Patient is a poor historian. Reviewed notes from [facility], she had been admitted to [place] around 11/27/22 for cellulitis and worsening infection of her left lower leg. She ended having an I&D of her left medial leg, left lateral leg and left lateral thigh. She was diagnosed with necrotizing fasciitis. Her wound cultures were positive for Enterococcus and steno. Mycoplasma IGG and IgM (+). She was sent to [facility] on 2 weeks dapto, arthur, clinda, levaquin, and micafungin. Changed Dap to to Vanc. On 12/12 stopped vanc/levaquin/arthur and started IV fluc due to diagnosis of candidemia. She was discharged home from [facility] around the second week of December. She has a history of significant for depression, personality disorder, self harm, anxiety, asthma, recurrent cellulitis and ADHD and most recently Afib and tachycardia. She states that she did not cause these wounds and did not do anything to them to make them worse. She has a history of being accused of tampering with wounds. Surgery 04/07/23 - Surgical preparation left medial leg with incision and drainage and excisional debridement nonhealing infected MRSA ulcer, (126 cm2). Operative culture were negative but she was on Vancomycin and Fluconazole for positive cultures from 04/05/23 which were positive for MRSE and Staphylococcus haemolyticus. Wound culture obtained on 12/29/22 which was positive for Enterococcus faecalis, Corynebacterium amycolatum, and MRSE. She was treated with Augmentin and Doxycycline. Wound culture obtained 01/28/23 which was positive for Enterococcus faecalis and Corynebacterium striatum. She was started on Augmentin. Wound culture obtained 07/07/23 which was positive for Proteus mirabilis and MRSA. She was treated with Doxycycline and Augmentin. Wound culture obtained 08/18/23 which was positive for Proteus mirabilis, Enterococcus faecalis and Corynebacterium striatum. She completed the Augmentin. Left leg ultrasound obtained on 01/06/23 which showed There is no evidence of left lower extremity deep vein thrombosis. She was in [facility] for a week at the end of February 2023 for subcutaneous air around her wound. She states she cultured positive for MRSA and they had her on IV antibiotics. They used a wound VAC while she was in the hospital. She was placed on Doxycycline and has finished them. Wound Care - Thera-Skin 9 applications. Surgery 02/14/[address] Miller for Pilonidal cystectomy. Today she denies fever, chills, nausea or vomiting. Progress of Wound: Left medial leg ulcer remains healed today. She had surgery on 02/14/24, for her pilonidal cyst by Dr. Miller. Her wound dehisced the week of February 20. Pilonidal wound is beefy pink, no odor, it looks stable. Discussed with Dr. Miller and he would like her to be seen at the wound healing center. Josiane states that she has been having increased pain and her mother has noticed an odor. Clinically the wound is stable and clean. She has been tolerating the Aquacel-Ag dressing changes. Objective Data Objective Data Vital Signs: Vital Signs Temp Pulse Resp BP O2 Del Method 95.8 F L 87 18 118/73 Room Air 03/06/24 10:55 03/06/24 10:55 03/06/24 10:55 03/06/24 10:55 03/06/24 10:55 Oxygen Delivery Method Room Air Weight: 276 lb Body Mass Index (BMI) 48.9 Charges/Coding Procedures Integumentary 111xxx-113xx: [id number] Stephany musc/fascia 20 sq cm/< Debridement Note Debridement Note Wound debrided: Pilonidal/sacral wound Laterality: Not Applicable Wound Grade/Stage: Grade 3 Type of Debridement: Excisional debridement Anesthesia Used: 4% Lidocaine Solution and 5% Lidocaine Gel Depth: Down to and including healthy tissue, in the subcutaneous layer and to muscle Percentage of wound debrided: 50 Instrument Used: 5mm curette Tissue Removed: Non viable tissue and slough into muscle. Focused mostly on edges. Severity: Fat Layer Exposed Amount of bleeding with debridement: Mild Bleeding Controlled with: Pressure and Compression and gauze Patient tolerated procedure: Patient tolerated procedure well Post-Debridement Measurements and Additional Note: Post-Debridement Measurements/Treatment - Nurse 1 - General Ulcer Assessment Start: 02/21/24 11:05 Freq: Status: Active Protocol: STALIN.LOWEXT Activity Type Activity Date Activity User E-sign Co-sign Detail Recorded Client Recorded Date Recorded By Document 02/21/24 11:05 DL [email or web address] 02/21/24 11:17 DL Document 02/28/24 11:02 KW l 02/28/24 11:15 KW Document 03/06/24 10:55 KW fg\ 03/06/24 11:10 KW 02/21/24 02/28/24 03/06/24 11:05 11:02 10:55 WC - Today's Visit Information Type of service Follow-up Visit Follow-up Visit Follow-up Visit (Physician/[employer] (Physician/[employer] (Physician/[employer] ) ) ) Arrival Mode Ambulatory Ambulatory Ambulatory Transfer Assistance None Patient Identification Verified (Name & Yes Yes Yes ) Patient Requires Transmission-Based No Precautions Height and Weight Body Mass Index (BMI) 48.9 48.9 48.9 BMI Classification Obese Obese Obese Vital Signs Temperature (97.8 F-99.1 F) 97.5 F L 95.6 F L 95.8 F L Temperature Source Temporal Temporal Temporal Pulse Rate (60-100) 83 87 87 Pulse Location Monitor Monitor Monitor Respiratory Rate (12-18) 18 18 18 Respiratory rate source Observation Observation Observation Oxygen Delivery Method Room Air Room Air Blood Pressure (90/60-120/80) 123/77 H 116/69 118/73 Blood Pressure Mean (mm Hg) 92 84 88 Source Monitor Monitor Monitor Position Semi-Fowlers Sitting Blood Pressure Location Left Forearm Left Forearm History Since Last Visit- (Skip if this is Patient's initial visit) Have you changed medications since your No No No last visit? Any new allergies or adverse reactions No No No Had a fall/change in ADL's that may No No No increase risk of falls Signs or symptoms of abuse and/or No No No neglect since last visit Have you been in the hospital since your No No No last visit? Has dressing in place as prescribed Yes Yes Yes Has compression in place as prescribed Yes Yes N/A Has offloadiing in place as prescribed N/A N/A N/A Experienced any changes in pain level or No No No management Left Footwear Regular Shoe Regular Shoe Right Footwear Regular Shoe Regular Shoe Pain Scale: 0-10 Numeric Is Patient Pain Free? Yes Yes No sacrum -Description Sharp,Throbbing -Intensity 6 -Alleviating Factors/Interventions Medication, Turning/ Repositioning WC - Nurse 1 - General Ulcer Measurement Start: 02/21/24 11:05 Freq: Status: Active Protocol: Activity Type Activity Date Activity User E-sign Co-sign Detail Recorded Client Recorded Date Recorded By Document 02/21/24 11:05 DL [email or web address] 02/21/24 11:17 DL Document 02/28/24 11:02 KW l 02/28/24 11:15 KW Document 03/06/24 10:55 KW fg\ 03/06/24 11:10 KW 02/21/24 02/28/24 03/06/24 11:05 11:02 10:55 Wound Center Nurse 1 #5 L medial LE -Current Size (cm) - Length 0.8 0.2 -Current Size (cm) - Width 0.5 0.2 -Current Size (cm) - Depth 0.1 0.1 -Total Square Cm 0.40 0.04 -Date of Last Picture (Recall this 02/28/24 field) -Photo Taken Yes -Epithelialization Large 67-100% -Exudate Amt Small None Present -Exudate Type Serosanguineous -Wound Margin Distinct, Distinct, Outline Outline Attached Attached -Granulation Amt Small (1-33%) -Granulation Quality Red -Necrosis Amt None Present (0 %) -Structure Exposed N/A -Texture (Brenna-wound Skin Appearance) Scarring Assessed, Scarring -Moisture (Brenna-wound Skin Appearance) No Abnormality Assessed -Color (Brenna-wound Skin Appearance) Hemosiderin Assessed Staining -Temperature (Brenna-wound Skin No Abnormality No Abnormality Appearance) (Pt Warm) (Pt Warm) -Tenderness on Palpation (Brenna-wound Yes No Skin Appearance) -Ulcer Cleansing Soap and Water Rinsed/ Irrigated with Saline -Foul Odor after Cleansing No -Anesthetic Used 5% Lidocaine 5% Lidocaine Gel Gel -Wound Comment(s) scabbed 9-sacrum -Current Size (cm) - Length 0.1 5 4.5 -Current Size (cm) - Width 0.1 1 1 -Current Size (cm) - Depth 0.1 4.2 4.5 -Total Square Cm 0.01 5 4.5 -Date of Last Picture (Recall this 02/28/24 03/06/24 field) -Photo Taken Yes -Tunneling Yes -Tunneling Position (O'clock) 8 -Tunneling Distance (cm) 6 -Exudate Amt Medium Medium Medium -Exudate Type Serosanguineous Serosanguineous Serosanguineous -Wound Margin Indistinct, Non Distinct, Distinct, -Visible Outline Outline Attached Attached -Granulation Amt Large (67-100%) Large (67-100%) Large (67-100%) -Granulation Quality Pale Red Red -Necrosis Amt None Present (0 Small (1-33%) %) -Necrotic Tissue Type Adherent Slough -Structure Exposed N/A -Texture (Brenna-wound Skin Appearance) Scarring Assessed Assessed -Moisture (Brenna-wound Skin Appearance) No Abnormality Assessed Assessed -Color (Brenna-wound Skin Appearance) No Abnormality Assessed Assessed -Temperature (Brenna-wound Skin No Abnormality No Abnormality No Abnormality Appearance) (Pt Warm) (Pt Warm) (Pt Warm) -Tenderness on Palpation (Brenna-wound No No Skin Appearance) -Ulcer Cleansing Soap and Water Soap and Water Soap and Water -Foul Odor after Cleansing No No No -Anesthetic Used 4% Lidocaine 4% Lidocaine Solution Solution -Wound Comment(s) Sutures intact. Sl dehisced at 12:00. pt has f/u with surgeon 02/21. Left Calf (cm) 45 Left Ankle (cm) 26.6 WC - Nurse 2 - General Ulcer CM Notes Start: 02/21/24 11:05 Freq: Status: Active Protocol: Activity Type Activity Date Activity User E-sign Co-sign Detail Recorded Client Recorded Date Recorded By Document 02/21/24 11:40 BMF [email or web address] 02/21/24 11:46 BMF Document 02/28/24 11:23 BMF [email or web address] 02/28/24 11:33 BMF Document 03/06/24 11:12 BMF [email or web address] 03/06/24 11:20 BMF 02/21/24 02/28/24 03/06/24 11:40 11:23 11:12 Wound Center Nurse 2 #5 L medial LE -Time 11:40 -Correct Patient Yes -Correct Side, Site, Position Yes -Correct Procedure Yes -Procedure Performed Yes -Type of Procedure Debridement -Clinical Debridement Subcutaneous -Tissue Removed Subcutaneous -Post Debridement (cm) - Length 0.8 0.1 -Post Debridement (cm) - Width 0.7 0.1 -Post Debridement (cm) - Depth 0.1 0.1 -Total Square (Post) (cm) 0.56 0.01 -Area of Debridement (cm) - Length 0.8 0.1 -Area of Debridement (cm) - Width 0.7 0.1 -Total Square (Area) (cm) 0.56 0.01 -Tunneling No -Undermining/Tunneling No -Circular Undermining No -Wound/Ulcer Outcome Not Healed Healed- Epithelialized -Ulcer Cleansing Rinsed/ Irrigated with Saline -Foul Odor after Cleansing No -Bioengineered Tissue No -Bleeding Controlled with Pressure NA -Treatment Response Procedure Tolerated Well -Debridement - Subq, 1st 20sq cm Yes 9-sacrum -Time 11:26 11:12 -Correct Patient Yes -Correct Side, Site, Position Yes -Correct Procedure Yes -Procedure Performed Yes -Type of Procedure Debridement -Clinical Debridement Muscle / Fascia -Tissue Removed Muscle -Post Debridement (cm) - Length 0.1 5 5 -Post Debridement (cm) - Width 0.1 1.5 1 -Post Debridement (cm) - Depth 0.1 4.6 4.7 -Total Square (Post) (cm) 0.01 7.5 5 -Area of Debridement (cm) - Length 0.1 5 5 -Area of Debridement (cm) - Width 0.1 1.5 1 -Total Square (Area) (cm) 0.01 7.5 5 -Tunneling Yes No -Tunneling Position (O'clock) 12 -Tunneling Distance (cm) 1.7 -Undermining/Tunneling Yes -Undermining/Tunneling Starts (O'clock 12 ) -Undermining/Tunneling Ends (O'clock) 12 -Maximum Distance (cm) 2.2 -Undermining/Tunneling Starts #2 (O' 6 clock) -Undermining/Tunneling Ends #2 (O' 6 clock) -Maximum Distance #2 (cm) 1.5 -Circular Undermining No -Wound/Ulcer Outcome Not Healed Not Healed Not Healed -Ulcer Cleansing Rinsed/ Irrigated with Saline -Foul Odor after Cleansing No -Bioengineered Tissue No -Bleeding Controlled with NA Pressure -Treatment Response Procedure Tolerated Well -Debridement - Muscle / Fascia, 1st Yes 20sq cm -Wound Comment(s) surgical samir to call closure w/ dr miller's paul 02/13/ office to see 24. he will if wound center follow can manage this wound post op per pt's request Pain Scale: 0-10 Numeric Is Patient Pain Free? Yes Yes Yes WC - Nurse 3 - General Ulcer D/C NN Start: 02/21/24 11:05 Freq: Status: Active Protocol: Activity Type Activity Date Activity User E-sign Co-sign Detail Recorded Client Recorded Date Recorded By Document 02/21/24 11:48 KW g 02/21/24 11:52 KW Document 02/28/24 11:36 KW l 02/28/24 11:44 KW Document 03/06/24 11:25 KW fg\ 03/06/24 11:25 KW Edit Result 03/06/24 11:25 KW (1) [id number] 03/06/24 11:34 BMF (1) OBTAIN PRIOR AUTH/ORDER WOUND VAC - Person Taught => Patient - Teaching Method => Discussion - Response to teaching => Verbalize => understanding Dressing Your Wound - Person Taught => Patient - Teaching Method => Discussion - Response to teaching => Verbalize => understanding *Debridement - Person Taught => Patient - Teaching Method => Discussion - Response to teaching => Verbalize => understanding 02/21/24 02/28/24 03/06/24 11:48 11:36 11:25 Wound Care Center Nurse 3 #5 L medial LE -Primary Dressing Applied Mepilex Border, Promogran Belle Matter -Mepilex Border 1 -Promogran Belle Matter 1 9-sacrum -Primary Dressing Applied Aquacel AG 4x4 Aquacel AG 4x4 -Primary Dressing Covered/Secured with Dry Gauze, Dry Gauze, Secured with Secured with Tape Tape -Aquacel AG 4x4 1 1 Left -Compression Wrap Jonas Wrap -Tubular Bandage Single Layer -Size of Tubigrip Used Size E -Size E ($) 1 Pain Scale: 0-10 Numeric Is Patient Pain Free? Yes Yes Yes Teaching: Wound Center OBTAIN PRIOR AUTH/ORDER WOUND VAC -Person Taught Patient -Teaching Method Discussion -Response to teaching Verbalize understanding Dressing Your Wound -Person Taught Patient -Teaching Method Discussion -Response to teaching Verbalize understanding *Debridement -Person Taught Patient -Teaching Method Discussion -Response to teaching Verbalize understanding WC - Visit Discharge Discharge Condition Stable Stable Stable Ambulatory Status Ambulatory Ambulatory Ambulatory Transportation Private Auto Private Auto Private Auto Medication Reconcilliation completed & No No provided to patient/care provider Clinical Summary of Care Provided Yes Yes Assessment/Plan Assessment/Plan (1) Surgical wound, non healing: CODE(S): T81.89XA - Other complications of procedures, not elsewhere classified, initial encounter QUALIFIERS: Encounter type: initial encounter Qualified Code(s): T81.89XA - Other complications of procedures, not elsewhere classified, initial encounter (2) Pilonidal cyst: CODE(S): L05.91 - Pilonidal cyst without abscess (3) S/P pilonidal cyst excision: CODE(S): Z98.890 - Other specified postprocedural states (4) Ulcer of left lower extremity with muscle involvement without evidence of necrosis: CODE(S): L97.925 - Non-pressure chronic ulcer of unspecified part of left lower leg with muscle involvement without evidence of necrosis (5) History of necrotizing fasciitis: CODE(S): Z87.39 - Personal history of other diseases of the musculoskeletal system and connective tissue (6) Borderline personality disorder: CODE(S): F60.3 - Borderline personality disorder PLAN: Plan Patient was evaluated at the wound healing center today. She had 9 applications of Theraskin to her left leg ulcer. Her left leg ulcer remains healed. She is to continue to massage with lotion to help soften scarring. She may cover with dry gauze to protect it as the scarring strengthens. I contacted Dr. Miller and he is fine with her being seen at the wound healing center. She states she was on Augmentin, which she has completed. She has concerns about an odor and increased pain from her wound. Clinically it looks good. No odor noticed today. Will monitor closely. She just completed a round of antibiotics, she clinically does not need any further treatment at this time. Wound care of Pilonidal wound - Aquacel-Ag covered with fluffed gauze and topped with ABD daily and as needed. She will wash with antibacterial soap and water at the time of the dressing change. Apply for a wound VAC. Once it is approved, it can be placed at 150 mmHg. Dressing is to be changed 3 times per week. Compression - Single tubi-insurance premium auditor with JONAS wrap on left leg for compression. She can go to [facility] to be measured for OTC compression stockings. She is to continue to wear compression even though her left leg ulcer is healed. Encourage nutritional supplementation with protein to help the healing process. Follow up 1 week.
--- NOTE | 2024-03-08 09:52 | WC ---
PHOTO 02/28/24 [facility]
--- NOTE | 2024-03-08 09:54 | WC ---
PHOTO 02/28/24 [facility]
--- NOTE | 2024-03-10 08:35 | WC ---
PHOTO 03/06/24 [facility]
--- NOTE | 2024-03-13 09:37 | WC ---
PHOTO [facility] 03/06/24
== END 2024-03-08 23:59 | disposition home or self-care (01) ==
LOC: WC 11:00
PROVIDERS: PCP Student in an Organized Health Care Education/Training Program; Referring Provider Student in an Organized Health Care Education/Training Program; Visit Provider Nurse Practitioner Family
DX: T81.89XA Other complications of procedures, not elsewhere classified, initial encounter (principal); L97.925 Non-pressure chronic ulcer of unspecified part of left lower leg with muscle involvement without evidence of necrosis; F60.3 Borderline personality disorder; L05.91 Pilonidal cyst without abscess; Z98.890 Other specified postprocedural states; Z87.39 Personal history of other diseases of the musculoskeletal system and connective tissue; Z86.14 Personal history of Methicillin resistant Staphylococcus aureus infection
CPT/HCPCS: 11042; 11043; 99213; G0463

== ENCOUNTER 2024-04-05 15:30 | Outpatient (RCR) | payer MEDICAID, SELFPAY ==
[2024-03-09 00:10] VITALS: BP 127/86; PULSE 94; RESP 16; TEMP 35.7; BMI 48.9
[2024-03-13 11:21] VITALS: BP 97/64; PULSE 81; RESP 18; TEMP 36.1; BMI 48.9
--- NOTE | 2024-03-13 17:35 | PCM.WC.PN ---
History of Present Illness Date of Service: 03/13/24 Chief Complaint: non-healing ulcer left medial leg History of Wound: Patient is a 23 year old female who presents to the wound healing center for evaluation and treatment of a nonhealing ulcer left medial leg. Patient is a poor historian. Reviewed notes from [facility], she had been admitted to [place] around 11/27/22 for cellulitis and worsening infection of her left lower leg. She ended having an I&D of her left medial leg, left lateral leg and left lateral thigh. She was diagnosed with necrotizing fasciitis. Her wound cultures were positive for Enterococcus and steno. Mycoplasma IGG and IgM (+). She was sent to [facility] on 2 weeks dapto, arthur, clinda, levaquin, and micafungin. Changed Dap to to Vanc. On 12/12 stopped vanc/levaquin/arthur and started IV fluc due to diagnosis of candidemia. She was discharged home from [facility] around the second week of December. She has a history of significant for depression, personality disorder, self harm, anxiety, asthma, recurrent cellulitis and ADHD and most recently Afib and tachycardia. She states that she did not cause these wounds and did not do anything to them to make them worse. She has a history of being accused of tampering with wounds. Surgery 04/07/23 - Surgical preparation left medial leg with incision and drainage and excisional debridement nonhealing infected MRSA ulcer, (126 cm2). Operative culture were negative but she was on Vancomycin and Fluconazole for positive cultures from 04/05/23 which were positive for MRSE and Staphylococcus haemolyticus. Wound culture obtained on 12/29/22 which was positive for Enterococcus faecalis, Corynebacterium amycolatum, and MRSE. She was treated with Augmentin and Doxycycline. Wound culture obtained 01/28/23 which was positive for Enterococcus faecalis and Corynebacterium striatum. She was started on Augmentin. Wound culture obtained 07/07/23 which was positive for Proteus mirabilis and MRSA. She was treated with Doxycycline and Augmentin. Wound culture obtained 08/18/23 which was positive for Proteus mirabilis, Enterococcus faecalis and Corynebacterium striatum. She completed the Augmentin. Left leg ultrasound obtained on 01/06/23 which showed There is no evidence of left lower extremity deep vein thrombosis. She was in [facility] for a week at the end of February 2023 for subcutaneous air around her wound. She states she cultured positive for MRSA and they had her on IV antibiotics. They used a wound VAC while she was in the hospital. She was placed on Doxycycline and has finished them. Wound Care - Thera-Skin 9 applications. Surgery 02/14/[address] Welsh for Pilonidal cystectomy. Today she denies fever, chills, nausea or vomiting. Progress of Wound: She had surgery on 02/14/24, for her pilonidal cyst by Dr. Welsh. Her wound dehisced the week of February 20. Pilonidal wound is beefy pink, no odor. Base of wound has uneven granulation tissue forming and is deeper, able to palpate bone. Josiane denies any issues at this time. Objective Data Objective Data Vital Signs: Vital Signs Temp Pulse Resp BP 96.9 F L 81 18 97/64 03/13/24 11:21 03/13/24 11:21 03/13/24 11:21 03/13/24 11:21 Weight: 276 lb Body Mass Index (BMI) 48.9 Charges/Coding Procedures Integumentary 111xxx-113xx: 66202 Stephany musc/fascia 20 sq cm/< Debridement Note Debridement Note Wound debrided: Pilonidal/sacral wound Laterality: Not Applicable Wound Grade/Stage: Grade 3 Type of Debridement: Excisional debridement Anesthesia Used: 4% Lidocaine Solution and 5% Lidocaine Gel Depth: Down to and including healthy tissue, in the subcutaneous layer and to muscle Percentage of wound debrided: 100 Instrument Used: 5mm curette Tissue Removed: Non viable tissue and slough into muscle. Severity: Fat Layer Exposed Amount of bleeding with debridement: Mild Bleeding Controlled with: Pressure and Compression and gauze Patient tolerated procedure: Patient tolerated procedure well Post-Debridement Measurements and Additional Note: Post-Debridement Measurements/Treatment - Nurse 1 - General Ulcer Assessment Start: 03/13/24 11:20 Freq: Status: Active Protocol: BOBO Activity Type Activity Date Activity User E-sign Co-sign Detail Recorded Client Recorded Date Recorded By Document 03/13/24 11:21 DL [email or web address] 03/13/24 11:29 DL 03/13/24 11:21 WC - Today's Visit Information Type of service Follow-up Visit (Physician/[employer] ) Arrival Mode Ambulatory Transfer Assistance None Patient Identification Verified (Name & Yes ) Patient Requires Transmission-Based No Precautions Height and Weight Body Mass Index (BMI) 48.9 BMI Classification Obese Vital Signs Temperature (97.8 F-99.1 F) 96.9 F L Temperature Source Temporal Pulse Rate (60-100) 81 Pulse Location Monitor Respiratory Rate (12-18) 18 Respiratory rate source Observation Blood Pressure (90/60-120/80) 97/64 Blood Pressure Mean (mm Hg) 75 Source Monitor History Since Last Visit- (Skip if this is Patient's initial visit) Have you changed medications since your No last visit? Any new allergies or adverse reactions No Had a fall/change in ADL's that may No increase risk of falls Signs or symptoms of abuse and/or No neglect since last visit Have you been in the hospital since your No last visit? Has dressing in place as prescribed Yes Has compression in place as prescribed No Has offloadiing in place as prescribed Yes Experienced any changes in pain level or No management Pain Scale: 0-10 Numeric Is Patient Pain Free? Yes - Nurse 1 - General Ulcer Measurement Start: 03/13/24 11:20 Freq: Status: Active Protocol: Activity Type Activity Date Activity User E-sign Co-sign Detail Recorded Client Recorded Date Recorded By Document 03/13/24 11:21 DL [email or web address] 03/13/24 11:29 DL 03/13/24 11:21 Wound Center Nurse 1 9-sacrum -Current Size (cm) - Length 3.5 -Current Size (cm) - Width 0.5 -Current Size (cm) - Depth 4 -Total Square Cm 1.75 -Tunneling Position (O'clock) 11 -Tunneling Distance (cm) 3.5 -Exudate Amt Large -Exudate Type Serosanguineous -Wound Margin Distinct, Outline Attached -Granulation Amt Medium (34-66%) -Granulation Quality Red -Necrosis Amt Medium (34-66%) -Necrotic Tissue Type Adherent Slough -Structure Exposed N/A -Texture (Brenna-wound Skin Appearance) Scarring -Moisture (Brenna-wound Skin Appearance) No Abnormality -Color (Brenna-wound Skin Appearance) No Abnormality -Temperature (Brenna-wound Skin No Abnormality Appearance) (Pt Warm) -Ulcer Cleansing Soap and Water -Foul Odor after Cleansing No -Anesthetic Used 5% Lidocaine Gel WC - Nurse 2 - General Ulcer CM Notes Start: 03/13/24 11:20 Freq: Status: Active Protocol: Activity Type Activity Date Activity User E-sign Co-sign Detail Recorded Client Recorded Date Recorded By Document 03/13/24 12:11 JF 0000 03/13/24 12:15 JF 03/13/24 12:11 Wound Center Nurse 2 -Time 12:12 -Correct Patient Yes -Correct Side, Site, Position Yes -Correct Procedure Yes -Procedure Performed Yes -Type of Procedure Debridement -Clinical Debridement Muscle / Fascia -Tissue Removed Muscle,Fascia -Post Debridement (cm) - Length 4.6 -Post Debridement (cm) - Width 1 -Post Debridement (cm) - Depth 3.9 -Total Square (Post) (cm) 4.6 -Area of Debridement (cm) - Length 4.6 -Area of Debridement (cm) - Width 1.0 -Total Square (Area) (cm) 4.60 -Tunneling No -Undermining/Tunneling No -Circular Undermining No -Wound/Ulcer Outcome Not Healed -Ulcer Cleansing Rinsed/ Irrigated with Saline -Foul Odor after Cleansing No -Bioengineered Tissue No -Bleeding Controlled with Pressure -Treatment Response Procedure Tolerated Well -Offloading No -Debridement - Muscle / Fascia, 1st Yes 20sq cm Pain Scale: 0-10 Numeric Is Patient Pain Free? Yes - Nurse 3 - General Ulcer D/C NN Start: 03/13/24 11:20 Freq: Status: Active Protocol: Activity Type Activity Date Activity User E-sign Co-sign Detail Recorded Client Recorded Date Recorded By Document 03/13/24 12:25 KW fghj 03/13/24 12:26 03/13/24 12:25 Wound Care Center Nurse 3 9-sacrum -Ulcer Cleansing Rinsed/ Irrigated with Saline -Other Dressing DAKENS SOAKED GAUZE -Primary Dressing Covered/Secured with Dry Gauze, Secured with Tape Pain Scale: 0-10 Numeric Is Patient Pain Free? Yes Assessment/Plan Assessment/Plan (1) Surgical wound, non healing: CODE(S): T81.89XA - Other complications of procedures, not elsewhere classified, initial encounter QUALIFIERS: Encounter type: initial encounter Qualified Code(s): T81.89XA - Other complications of procedures, not elsewhere classified, initial encounter (2) Pilonidal cyst: CODE(S): L05.91 - Pilonidal cyst without abscess (3) S/P pilonidal cyst excision: CODE(S): Z98.890 - Other specified postprocedural states (4) Ulcer of left lower extremity with muscle involvement without evidence of necrosis: CODE(S): L97.925 - Non-pressure chronic ulcer of unspecified part of left lower leg with muscle involvement without evidence of necrosis (5) History of necrotizing fasciitis: CODE(S): Z87.39 - Personal history of other diseases of the musculoskeletal system and connective tissue (6) Borderline personality disorder: CODE(S): F60.3 - Borderline personality disorder PLAN: Plan Patient was evaluated at the wound healing center today. Wound is deeper this week, able to palpate bone in the base of the ulcer. Will change wound care. Wound care of Pilonidal wound - Dakin's 0.25% moistened gauze topped with ABD daily and as needed. She will wash with antibacterial soap and water at the time of the dressing change. Apply for a wound VAC. Once it is approved, it can be placed at 150 mmHg. Dressing is to be changed 3 times per week. Compression - Single tubi-sap security consultant with MOHINI wrap on left leg for compression. She can go to [facility] to be measured for OTC compression stockings. She is to continue to wear compression even though her left leg ulcer is healed. Encourage nutritional supplementation with protein to help the healing process. Discussed this case with Dr. Jacobson, plastic surgeon. He suggested obtaining some labs (CMP, CBC, Prealbumim, Hemaglobe A1c) and that if she is interested, he maybe able to do a flap to close this wound. She is starting [employer] school next week. We will obtain labs first, then further discuss with Josiane. Follow up 2 weeks.
[2024-03-20 15:28] VITALS: BP 129/84; PULSE 82; RESP 18; TEMP 35; BMI 48.9
--- NOTE | 2024-03-20 17:19 | PCM.WC.PN ---
History of Present Illness Date of Service: 03/20/24 Chief Complaint: non-healing ulcer left medial leg History of Wound: Patient is a 23 year old female who presents to the wound healing center for evaluation and treatment of a nonhealing ulcer left medial leg. Patient is a poor historian. Reviewed notes from [facility], she had been admitted to [place] around 11/27/22 for cellulitis and worsening infection of her left lower leg. She ended having an I&D of her left medial leg, left lateral leg and left lateral thigh. She was diagnosed with necrotizing fasciitis. Her wound cultures were positive for Enterococcus and steno. Mycoplasma IGG and IgM (+). She was sent to [facility] on 2 weeks dapto, arthur, clinda, levaquin, and micafungin. Changed Dap to to Vanc. On 12/12 stopped vanc/levaquin/arthur and started IV fluc due to diagnosis of candidemia. She was discharged home from [facility] around the second week of December. She has a history of significant for depression, personality disorder, self harm, anxiety, asthma, recurrent cellulitis and ADHD and most recently Afib and tachycardia. She states that she did not cause these wounds and did not do anything to them to make them worse. She has a history of being accused of tampering with wounds. Surgery 04/07/23 - Surgical preparation left medial leg with incision and drainage and excisional debridement nonhealing infected MRSA ulcer, (126 cm2). Operative culture were negative but she was on Vancomycin and Fluconazole for positive cultures from 04/05/23 which were positive for MRSE and Staphylococcus haemolyticus. Wound culture obtained on 12/29/22 which was positive for Enterococcus faecalis, Corynebacterium amycolatum, and MRSE. She was treated with Augmentin and Doxycycline. Wound culture obtained 01/28/23 which was positive for Enterococcus faecalis and Corynebacterium striatum. She was started on Augmentin. Wound culture obtained 07/07/23 which was positive for Proteus mirabilis and MRSA. She was treated with Doxycycline and Augmentin. Wound culture obtained 08/18/23 which was positive for Proteus mirabilis, Enterococcus faecalis and Corynebacterium striatum. She completed the Augmentin. Left leg ultrasound obtained on 01/06/23 which showed There is no evidence of left lower extremity deep vein thrombosis. She was in [facility] for a week at the end of February 2023 for subcutaneous air around her wound. She states she cultured positive for MRSA and they had her on IV antibiotics. They used a wound VAC while she was in the hospital. She was placed on Doxycycline and has finished them. Wound Care - Thera-Skin 9 applications. Surgery 02/14/[address] Welsh for Pilonidal cystectomy. Today she denies fever, chills, nausea or vomiting. Progress of Wound: Pilonidal wound is beefy pink, no odor. Base of wound has uneven granulation tissue forming and is deeper, able to palpate bone, which is covered. She has been approved for the wound vac. Will start that today. She started [employer]NA[employer] school today. She has not obtained labs to assess her nutrition. Objective Data Objective Data Vital Signs: Vital Signs Temp Pulse Resp BP O2 Del Method 95.0 F L 82 18 129/84 H Room Air 03/20/24 15:28 03/20/24 15:28 03/20/24 15:28 03/20/24 15:28 03/20/24 15:28 Oxygen Delivery Method Room Air Weight: 276 lb Body Mass Index (BMI) 48.9 Charges/Coding Procedures Integumentary 111xxx-113xx: 09453 Stephany musc/fascia 20 sq cm/< Debridement Note Debridement Note Wound debrided: Pilonidal/sacral wound Laterality: Not Applicable Wound Grade/Stage: Grade 3 Type of Debridement: Excisional debridement Anesthesia Used: 4% Lidocaine Solution and 5% Lidocaine Gel Depth: Down to and including healthy tissue, in the subcutaneous layer and to muscle Percentage of wound debrided: 100 Instrument Used: 5mm curette Tissue Removed: Non viable tissue and slough into muscle. Severity: Fat Layer Exposed Amount of bleeding with debridement: Mild Bleeding Controlled with: Pressure and Compression and gauze Patient tolerated procedure: Patient tolerated procedure well Post-Debridement Measurements and Additional Note: Post-Debridement Measurements/Treatment WC - Nurse 1 - General Ulcer Assessment Start: 03/13/24 11:20 Freq: Status: Active Protocol: BOBO Activity Type Activity Date Activity User E-sign Co-sign Detail Recorded Client Recorded Date Recorded By Document 03/13/24 11:21 DL [email or web address] 03/13/24 11:29 DL Document 03/20/24 15:28 KW ][ 03/20/24 15:36 KW 03/13/24 03/20/24 11:21 15:28 WC - Today's Visit Information Type of service Follow-up Visit Follow-up Visit (Physician/[employer] (Physician/[employer] ) ) Arrival Mode Ambulatory Ambulatory Transfer Assistance None Patient Identification Verified (Name & Yes Yes ) Patient Requires Transmission-Based No Precautions Height and Weight Body Mass Index (BMI) 48.9 48.9 BMI Classification Obese Obese Vital Signs Temperature (97.8 F-99.1 F) 96.9 F L 95.0 F L Temperature Source Temporal Temporal Pulse Rate (60-100) 81 82 Pulse Location Monitor Monitor Respiratory Rate (12-18) 18 18 Respiratory rate source Observation Observation Oxygen Delivery Method Room Air Blood Pressure (90/60-120/80) 97/64 129/84 H Blood Pressure Mean (mm Hg) 75 99 Source Monitor Monitor Position Sitting Blood Pressure Location Right Forearm History Since Last Visit- (Skip if this is Patient's initial visit) Have you changed medications since your No No last visit? Any new allergies or adverse reactions No No Had a fall/change in ADL's that may No No increase risk of falls Signs or symptoms of abuse and/or No No neglect since last visit Have you been in the hospital since your No No last visit? Has dressing in place as prescribed Yes Yes Has compression in place as prescribed No N/A Has offloadiing in place as prescribed Yes N/A Experienced any changes in pain level or No No management Left Footwear Regular Shoe Right Footwear Regular Shoe Pain Scale: 0-10 Numeric Is Patient Pain Free? Yes Yes - Nurse 1 - General Ulcer Measurement Start: 03/13/24 11:20 Freq: Status: Active Protocol: Activity Type Activity Date Activity User E-sign Co-sign Detail Recorded Client Recorded Date Recorded By Document 03/13/24 11:21 DL [email or web address] 03/13/24 11:29 DL Document 03/20/24 15:28 KW ][ 03/20/24 15:36 KW 03/13/24 03/20/24 11:21 15:28 Wound Center Nurse 1 9-sacrum -Current Size (cm) - Length 3.5 4.8 -Current Size (cm) - Width 0.5 0.3 -Current Size (cm) - Depth 4 3.4 -Total Square Cm 1.75 1.44 -Tunneling Position (O'clock) 11 -Tunneling Distance (cm) 3.5 -Exudate Amt Large Large -Exudate Type Serosanguineous Serosanguineous -Wound Margin Distinct, Distinct, Outline Outline Attached Attached -Granulation Amt Medium (34-66%) Large (67-100%) -Granulation Quality Red Red -Necrosis Amt Medium (34-66%) -Necrotic Tissue Type Adherent Slough -Structure Exposed N/A -Texture (Brenna-wound Skin Appearance) Scarring Assessed -Moisture (Brenna-wound Skin Appearance) No Abnormality Assessed -Color (Brenna-wound Skin Appearance) No Abnormality Assessed -Temperature (Brenna-wound Skin No Abnormality No Abnormality Appearance) (Pt Warm) (Pt Warm) -Tenderness on Palpation (Brenna-wound No Skin Appearance) -Ulcer Cleansing Soap and Water Rinsed/ Irrigated with Saline -Foul Odor after Cleansing No No -Anesthetic Used 5% Lidocaine 4% Lidocaine Gel Solution WC - Nurse 2 - General Ulcer CM Notes Start: 03/13/24 11:20 Freq: Status: Active Protocol: Activity Type Activity Date Activity User E-sign Co-sign Detail Recorded Client Recorded Date Recorded By Document 03/13/24 12:11 0000 03/13/24 12:15 Document 03/20/24 16:07 0000 03/20/24 16:12 03/13/24 03/20/24 12:11 16:07 Wound Center Nurse 2 9-sacrum -Time 12:12 16:07 -Correct Patient Yes Yes -Correct Side, Site, Position Yes Yes -Correct Procedure Yes Yes -Procedure Performed Yes Yes -Type of Procedure Debridement Debridement -Clinical Debridement Muscle / Fascia Muscle / Fascia -Tissue Removed Muscle,Fascia Muscle,Fascia -Post Debridement (cm) - Length 4.6 4.5 -Post Debridement (cm) - Width 1 1 -Post Debridement (cm) - Depth 3.9 4.0 -Total Square (Post) (cm) 4.6 4.5 -Area of Debridement (cm) - Length 4.6 4.5 -Area of Debridement (cm) - Width 1.0 1 -Total Square (Area) (cm) 4.60 4.5 -Tunneling No No -Undermining/Tunneling No No -Circular Undermining No No -Wound/Ulcer Outcome Not Healed Not Healed -Ulcer Cleansing Rinsed/ Rinsed/ Irrigated with Irrigated with Saline Saline -Foul Odor after Cleansing No No -Bioengineered Tissue No No -Bleeding Controlled with Pressure Pressure -Treatment Response Procedure Procedure Tolerated Well Tolerated Well -Offloading No No -Debridement - Muscle / Fascia, 1st Yes Yes 20sq cm Pain Scale: 0-10 Numeric Is Patient Pain Free? Yes Yes - Nurse 3 - General Ulcer D/C NN Start: 03/13/24 11:20 Freq: Status: Active Protocol: Activity Type Activity Date Activity User E-sign Co-sign Detail Recorded Client Recorded Date Recorded By Document 03/13/24 12:25 KW fghj 03/13/24 12:26 KW Document 03/20/24 16:17 KW ][ 03/20/24 16:17 KW 03/13/24 03/20/24 12:25 16:17 Wound Care Center Nurse 3 9-sacrum -Ulcer Cleansing Rinsed/ Rinsed/ Irrigated with Irrigated with Saline Saline -Negative Pressure Wound Therapy Start -Setting (mmHg) 150 -Negative Pressure is Continuous -Other Dressing DAKENS SOAKED GAUZE -Primary Dressing Covered/Secured with Dry Gauze, Secured with Tape -NPWT Application Charge NPWT & Debridement (nc ) Pain Scale: 0-10 Numeric Is Patient Pain Free? Yes Yes - Visit Discharge Discharge Condition Stable Ambulatory Status Ambulatory Transportation Private Auto Medication Reconcilliation completed & No provided to patient/care provider Clinical Summary of Care Provided Yes Assessment/Plan Assessment/Plan (1) Surgical wound, non healing: CODE(S): T81.89XA - Other complications of procedures, not elsewhere classified, initial encounter QUALIFIERS: Encounter type: initial encounter Qualified Code(s): T81.89XA - Other complications of procedures, not elsewhere classified, initial encounter (2) Pilonidal cyst: CODE(S): L05.91 - Pilonidal cyst without abscess (3) S/P pilonidal cyst excision: CODE(S): Z98.890 - Other specified postprocedural states (4) Ulcer of left lower extremity with muscle involvement without evidence of necrosis: CODE(S): L97.925 - Non-pressure chronic ulcer of unspecified part of left lower leg with muscle involvement without evidence of necrosis (5) History of necrotizing fasciitis: CODE(S): Z87.39 - Personal history of other diseases of the musculoskeletal system and connective tissue (6) Borderline personality disorder: CODE(S): F60.3 - Borderline personality disorder PLAN: Plan Patient was evaluated at the wound healing center today. Wound care - Wound VAC at 150 mmHg. Dressing is to be changed 3 times per week. She is to wash the wound with soap and water at the time of the dressing changes. Compression - Single tubi-dictating machine typist with MOHINI wrap on left leg for compression. She can go to [facility] to be measured for OTC compression stockings. She is to continue to wear compression even though her left leg ulcer is healed. Encourage nutritional supplementation with protein to help the healing process. Instructed her to obtain her labwork. Follow up 1 week.
[2024-03-29 15:37] VITALS: BP 114/67; PULSE 64; RESP 18; TEMP 36.4; BMI 48.9
--- NOTE | 2024-03-29 16:50 | PCM.WC.PN ---
History of Present Illness Date of Service: 03/29/24 Chief Complaint: non-healing ulcer left medial leg History of Wound: Patient is a 23 year old female who presents to the wound healing center for evaluation and treatment of a nonhealing ulcer left medial leg. Patient is a poor historian. Reviewed notes from [facility], she had been admitted to [facility] around 11/27/22 for cellulitis and worsening infection of her left lower leg. She ended having an I&D of her left medial leg, left lateral leg and left lateral thigh. She was diagnosed with necrotizing fasciitis. Her wound cultures were positive for Enterococcus and steno. Mycoplasma IGG and IgM (+). She was sent to [facility] on 2 weeks dapto, arthur, clinda, levaquin, and micafungin. Changed Dap to to Vanc. On 12/12 stopped vanc/levaquin/arthur and started IV fluc due to diagnosis of candidemia. She was discharged home from [facility] around the second week of December. She has a history of significant for depression, personality disorder, self harm, anxiety, asthma, recurrent cellulitis and ADHD and most recently Afib and tachycardia. She states that she did not cause these wounds and did not do anything to them to make them worse. She has a history of being accused of tampering with wounds. Surgery 04/07/23 - Surgical preparation left medial leg with incision and drainage and excisional debridement nonhealing infected MRSA ulcer, (126 cm2). Operative culture were negative but she was on Vancomycin and Fluconazole for positive cultures from 04/05/23 which were positive for MRSE and Staphylococcus haemolyticus. Wound culture obtained on 12/29/22 which was positive for Enterococcus faecalis, Corynebacterium amycolatum, and MRSE. She was treated with Augmentin and Doxycycline. Wound culture obtained 01/28/23 which was positive for Enterococcus faecalis and Corynebacterium striatum. She was started on Augmentin. Wound culture obtained 07/07/23 which was positive for Proteus mirabilis and MRSA. She was treated with Doxycycline and Augmentin. Wound culture obtained 08/18/23 which was positive for Proteus mirabilis, Enterococcus faecalis and Corynebacterium striatum. She completed the Augmentin. Left leg ultrasound obtained on 01/06/23 which showed There is no evidence of left lower extremity deep vein thrombosis. She was in [facility] for a week at the end of February 2023 for subcutaneous air around her wound. She states she cultured positive for MRSA and they had her on IV antibiotics. They used a wound VAC while she was in the hospital. She was placed on Doxycycline and has finished them. Wound Care - Thera-Skin 9 applications. Surgery 02/14/[address] Welsh for Pilonidal cystectomy. Today she denies fever, chills, nausea or vomiting. Progress of Wound: Pilonidal wound is much smaller after using the wound VAC for the past week. It is beefy pink. There is some odor from the wound VAC. Brenna wound looks clear. She is in [employer] and doing well. She has not received her lab that have been ordered. Objective Data Objective Data Vital Signs: Vital Signs Temp Pulse Resp BP O2 Del Method 97.5 F L 64 18 114/67 Room Air 03/29/24 15:37 03/29/24 15:37 03/29/24 15:37 03/29/24 15:37 03/20/24 15:28 Oxygen Delivery Method Room Air Weight: 276 lb Body Mass Index (BMI) 48.9 Charges/Coding Procedures Integumentary 111xxx-113xx: [id number] Stephany musc/fascia 20 sq cm/< Debridement Note Debridement Note Wound debrided: Pilonidal/sacral wound Laterality: Not Applicable Wound Grade/Stage: Grade 3 Type of Debridement: Excisional debridement Anesthesia Used: 4% Lidocaine Solution and 5% Lidocaine Gel Depth: Down to and including healthy tissue, in the subcutaneous layer and to muscle Percentage of wound debrided: 100 Instrument Used: 5mm curette Tissue Removed: Non viable tissue and slough into muscle. Severity: Fat Layer Exposed Amount of bleeding with debridement: Mild Bleeding Controlled with: Pressure and Compression and gauze Patient tolerated procedure: Patient tolerated procedure well Post-Debridement Measurements and Additional Note: Post-Debridement Measurements/Treatment WC - Nurse 1 - General Ulcer Assessment Start: 03/13/24 11:20 Freq: Status: Active Protocol: BOBO Activity Type Activity Date Activity User E-sign Co-sign Detail Recorded Client Recorded Date Recorded By Document 03/13/24 11:21 DL [email or web address] 03/13/24 11:29 DL Document 03/20/24 15:28 KW ][ 03/20/24 15:36 KW Document 03/29/24 15:37 DL [id number] 03/29/24 15:43 DL 03/13/24 03/20/24 03/29/24 11:21 15:28 15:37 - Today's Visit Information Type of service Follow-up Visit Follow-up Visit Follow-up Visit (Physician/BUNDLE PERSON (Physician/BUNDLE PERSON (Physician/BUNDLE PERSON ) ) ) Arrival Mode Ambulatory Ambulatory Ambulatory Transfer Assistance None None Patient Identification Verified (Name & Yes Yes Yes ) Patient Requires Transmission-Based No No Precautions Height and Weight Body Mass Index (BMI) 48.9 48.9 48.9 BMI Classification Obese Obese Obese Vital Signs Temperature (97.8 F-99.1 F) 96.9 F L 95.0 F L 97.5 F L Temperature Source Temporal Temporal Temporal Pulse Rate (60-100) 81 82 64 Pulse Location Monitor Monitor Monitor Respiratory Rate (12-18) 18 18 18 Respiratory rate source Observation Observation Observation Oxygen Delivery Method Room Air Blood Pressure (90/60-120/80) 97/64 129/84 H 114/67 Blood Pressure Mean (mm Hg) 75 99 82 Source Monitor Monitor Monitor Position Sitting Blood Pressure Location Right Forearm History Since Last Visit- (Skip if this is Patient's initial visit) Have you changed medications since your No No No last visit? Any new allergies or adverse reactions No No No Had a fall/change in ADL's that may No No No increase risk of falls Signs or symptoms of abuse and/or No No No neglect since last visit Have you been in the hospital since your No No No last visit? Has dressing in place as prescribed Yes Yes Yes Has compression in place as prescribed No N/A Yes Has offloadiing in place as prescribed Yes N/A N/A Experienced any changes in pain level or No No No management Left Footwear Regular Shoe Right Footwear Regular Shoe Pain Scale: 0-10 Numeric Is Patient Pain Free? Yes Yes Yes - Nurse 1 - General Ulcer Measurement Start: 03/13/24 11:20 Freq: Status: Active Protocol: Activity Type Activity Date Activity User E-sign Co-sign Detail Recorded Client Recorded Date Recorded By Document 03/13/24 11:21 DL [email or web address] 03/13/24 11:29 DL Document 03/20/24 15:28 KW ][ 03/20/24 15:36 KW Document 03/29/24 15:37 DL [id number] 03/29/24 15:43 DL 03/13/24 03/20/24 03/29/24 11:21 15:28 15:37 Wound Center Nurse 1 9-sacrum -Current Size (cm) - Length 3.5 4.8 3.5 -Current Size (cm) - Width 0.5 0.3 1.4 -Current Size (cm) - Depth 4 3.4 1.9 -Total Square Cm 1.75 1.44 4.90 -Tunneling Position (O'clock) 11 -Tunneling Distance (cm) 3.5 -Exudate Amt Large Large Medium -Exudate Type Serosanguineous Serosanguineous Serosanguineous -Wound Margin Distinct, Distinct, Distinct, Outline Outline Outline Attached Attached Attached -Granulation Amt Medium (34-66%) Large (67-100%) Medium (34-66%) -Granulation Quality Red Red Red -Necrosis Amt Medium (34-66%) Medium (34-66%) -Necrotic Tissue Type Adherent Slough Adherent Slough -Structure Exposed N/A N/A -Texture (Brenna-wound Skin Appearance) Scarring Assessed Scarring -Moisture (Brenna-wound Skin Appearance) No Abnormality Assessed No Abnormality -Color (Brenna-wound Skin Appearance) No Abnormality Assessed No Abnormality -Temperature (Brenna-wound Skin No Abnormality No Abnormality No Abnormality Appearance) (Pt Warm) (Pt Warm) (Pt Warm) -Tenderness on Palpation (Brenna-wound No No Skin Appearance) -Ulcer Cleansing Soap and Water Rinsed/ Soap and Water Irrigated with Saline -Foul Odor after Cleansing No No No -Anesthetic Used 5% Lidocaine 4% Lidocaine 5% Lidocaine Gel Solution Gel WC - Nurse 2 - General Ulcer CM Notes Start: 03/13/24 11:20 Freq: Status: Active Protocol: Activity Type Activity Date Activity User E-sign Co-sign Detail Recorded Client Recorded Date Recorded By Document 03/13/24 12:11 0000 03/13/24 12:15 Document 03/20/24 16:07 JF 0000 03/20/24 16:12 Document 03/29/24 16:08 [id number] 03/29/24 16:11 03/13/24 03/20/24 03/29/24 12:11 16:07 16:08 Wound Center Nurse 2 9-sacrum -Time 12:12 16:07 16:08 -Correct Patient Yes Yes Yes -Correct Side, Site, Position Yes Yes Yes -Correct Procedure Yes Yes Yes -Procedure Performed Yes Yes Yes -Type of Procedure Debridement Debridement Debridement -Clinical Debridement Muscle / Fascia Muscle / Fascia Muscle / Fascia -Tissue Removed Muscle,Fascia Muscle,Fascia Muscle -Post Debridement (cm) - Length 4.6 4.5 4.0 -Post Debridement (cm) - Width 1 1 1.5 -Post Debridement (cm) - Depth 3.9 4.0 2.5 -Total Square (Post) (cm) 4.6 4.5 6.00 -Area of Debridement (cm) - Length 4.6 4.5 4.0 -Area of Debridement (cm) - Width 1.0 1 1.5 -Total Square (Area) (cm) 4.60 4.5 6.00 -Tunneling No No No -Undermining/Tunneling No No No -Circular Undermining No No No -Wound/Ulcer Outcome Not Healed Not Healed Not Healed -Ulcer Cleansing Rinsed/ Rinsed/ Rinsed/ Irrigated with Irrigated with Irrigated with Saline Saline Saline -Foul Odor after Cleansing No No No -Bioengineered Tissue No No No -Bleeding Controlled with Pressure Pressure Pressure -Treatment Response Procedure Procedure Procedure Tolerated Well Tolerated Well Tolerated Well -Offloading No No -Debridement - Muscle / Fascia, 1st Yes Yes Yes 20sq cm Pain Scale: 0-10 Numeric Is Patient Pain Free? Yes Yes Yes WC - Nurse 3 - General Ulcer D/C NN Start: 03/13/24 11:20 Freq: Status: Active Protocol: Activity Type Activity Date Activity User E-sign Co-sign Detail Recorded Client Recorded Date Recorded By Document 03/13/24 12:25 KW [email or web address] 03/13/24 12:26 KW Document 03/20/24 16:17 KW ][ 03/20/24 16:17 KW Document 03/29/24 16:20 CP [id number] 03/29/24 16:22 CP 03/13/24 03/20/24 03/29/24 12:25 16:17 16:20 Wound Care Center Nurse 3 9-sacrum -Ulcer Cleansing Rinsed/ Rinsed/ Rinsed/ Irrigated with Irrigated with Irrigated with Saline Saline Saline -Negative Pressure Wound Therapy Start -Setting (mmHg) 150 150 -Negative Pressure is Continuous Continuous -Other Dressing DAKENS SOAKED GAUZE -Primary Dressing Covered/Secured with Dry Gauze, Secured with Tape -NPWT Application Charge NPWT & NPWT & Debridement (nc Debridement (nc ) ) Pain Scale: 0-10 Numeric Is Patient Pain Free? Yes Yes No WC - Visit Discharge Discharge Condition Stable Stable Ambulatory Status Ambulatory Ambulatory Transportation Private Auto Private Auto Medication Reconcilliation completed & No provided to patient/care provider Clinical Summary of Care Provided Yes Yes Assessment/Plan Assessment/Plan (1) Surgical wound, non healing: CODE(S): T81.89XA - Other complications of procedures, not elsewhere classified, initial encounter QUALIFIERS: Encounter type: initial encounter Qualified Code(s): T81.89XA - Other complications of procedures, not elsewhere classified, initial encounter (2) Pilonidal cyst: CODE(S): L05.91 - Pilonidal cyst without abscess (3) S/P pilonidal cyst excision: CODE(S): Z98.890 - Other specified postprocedural states (4) Ulcer of left lower extremity with muscle involvement without evidence of necrosis: CODE(S): L97.925 - Non-pressure chronic ulcer of unspecified part of left lower leg with muscle involvement without evidence of necrosis (5) History of necrotizing fasciitis: CODE(S): Z87.39 - Personal history of other diseases of the musculoskeletal system and connective tissue (6) Borderline personality disorder: CODE(S): F60.3 - Borderline personality disorder PLAN: Plan Patient was evaluated at the wound healing center today. Wound care - Wound VAC at 150 mmHg. Dressing is to be changed 3 times per week. She is to wash the wound with soap and water at the time of the dressing changes. She is not able to have the wound VAC when she is doing her clinicals which start next week. She will do a wound VAC until Wednesday. Her wound care will then be Aquacel-Ag placed into the base of ulcer, covered with fluffed gauze and topped with ABD daily. Wash the ulcer at the time of the dressing changes with soap and water. Compression - Single tubi-tool repairer with MOHINI wrap on left leg for compression. She can go to [facility] to be measured for OTC compression stockings. She is to continue to wear compression even though her left leg ulcer is healed. Encourage nutritional supplementation with protein to help the healing process. Instructed her to obtain her labwork. Follow up 1 week.
[2024-04-05 15:43] VITALS: BP 98/53; PULSE 90; RESP 16; TEMP 35.9; BMI 48.9
--- NOTE | 2024-04-05 16:17 | PN.PCM_ITS ---
History of Present Illness Date of Service: 04/05/24 Chief Complaint: non-healing ulcer left medial leg History of Wound: Patient is a 23 year old female who presents to the wound healing center for evaluation and treatment of a nonhealing ulcer left medial leg. Patient is a poor historian. Reviewed notes from [facility], she had been admitted to [place] around 11/27/22 for cellulitis and worsening infection of her left lower leg. She ended having an I&D of her left medial leg, left lateral leg and left lateral thigh. She was diagnosed with necrotizing fasciitis. Her wound cultures were positive for Enterococcus and steno. Mycoplasma IGG and IgM (+). She was sent to [facility] on 2 weeks dapto, arthur, clinda, levaquin, and micafungin. Changed Dap to to Vanc. On 12/12 stopped vanc/levaquin/arthur and started IV fluc due to diagnosis of candidemia. She was discharged home from [facility] around the second week of December. She has a history of significant for depression, personality disorder, self harm, anxiety, asthma, recurrent cellulitis and ADHD and most recently Afib and tachycardia. She states that she did not cause these wounds and did not do anything to them to make them worse. She has a history of being accused of tampering with wounds. Surgery 04/07/23 - Surgical preparation left medial leg with incision and drainage and excisional debridement nonhealing infected MRSA ulcer, (126 cm2). Operative culture were negative but she was on Vancomycin and Fluconazole for positive cultures from 04/05/23 which were positive for MRSE and Staphylococcus haemolyticus. Wound culture obtained on 12/29/22 which was positive for Enterococcus faecalis, Corynebacterium amycolatum, and MRSE. She was treated with Augmentin and Doxycycline. Wound culture obtained 01/28/23 which was positive for Enterococcus faecalis and Corynebacterium striatum. She was started on Augmentin. Wound culture obtained 07/07/23 which was positive for Proteus mirabilis and MRSA. She was treated with Doxycycline and Augmentin. Wound culture obtained 08/18/23 which was positive for Proteus mirabilis, Enterococcus faecalis and Corynebacterium striatum. She completed the Augmentin. Left leg ultrasound obtained on 01/06/23 which showed There is no evidence of left lower extremity deep vein thrombosis. She was in [facility] for a week at the end of February 2023 for subcutaneous air around her wound. She states she cultured positive for MRSA and they had her on IV antibiotics. They used a wound VAC while she was in the hospital. She was placed on Doxycycline and has finished them. Wound Care - Thera-Skin 9 applications. Surgery 02/14/[address] Welsh for Pilonidal cystectomy. Today she denies fever, chills, nausea or vomiting. Progress of Wound: Pilonidal wound is smaller today. The base of the wound is beefy pink. She has not had the wound VAC on for the past several days due to her having clinicals and she can not have the wound VAC on. She has been doing Aquacel-Ag dressing changes daily. She is able to restart the wound VAC tomorrow and will change the VAC dressing 3 times per week. Objective Data Objective Data Vital Signs: Vital Signs Temp Pulse Resp BP O2 Del Method 96.6 F L 90 16 98/53 L Room Air 04/05/24 15:43 04/05/24 15:43 04/05/24 15:43 04/05/24 15:43 04/05/24 15:43 Oxygen Delivery Method Room Air Weight: 276 lb Body Mass Index (BMI) 48.9 Charges/Coding Procedures Integumentary 111xxx-113xx: 10706 Stephany musc/fascia 20 sq cm/< Debridement Note Debridement Note Wound debrided: Pilonidal/sacral wound Laterality: Not Applicable Wound Grade/Stage: Grade 3 Type of Debridement: Excisional debridement Anesthesia Used: 4% Lidocaine Solution and 5% Lidocaine Gel Depth: Down to and including healthy tissue, in the subcutaneous layer and to muscle Percentage of wound debrided: 100 Instrument Used: 5mm curette Tissue Removed: Non viable tissue and slough into muscle. Severity: Fat Layer Exposed Amount of bleeding with debridement: Mild Bleeding Controlled with: Pressure and Compression and gauze Patient tolerated procedure: Patient tolerated procedure well Post-Debridement Measurements and Additional Note: Post-Debridement Measurements/Treatment STALIN - Nurse 1 - General Ulcer Assessment Start: 03/13/24 11:20 Freq: Status: Active Protocol: BOBO Activity Type Activity Date Activity User E-sign Co-sign Detail Recorded Client Recorded Date Recorded By Document 03/13/24 11:21 DL [email or web address] 03/13/24 11:29 DL Document 03/20/24 15:28 KW ][ 03/20/24 15:36 KW Document 03/29/24 15:37 DL [id number] 03/29/24 15:43 DL Document 04/05/24 15:43 BMF [id number] 04/05/24 15:45 BMF 03/13/24 03/20/24 03/29/24 11:21 15:28 15:37 WC - Today's Visit Information Type of service Follow-up Visit Follow-up Visit Follow-up Visit (Physician/SHIRRING MACHINE OPERATOR (Physician/SHIRRING MACHINE OPERATOR (Physician/SHIRRING MACHINE OPERATOR ) ) ) Arrival Mode Ambulatory Ambulatory Ambulatory Transfer Assistance None None Patient Identification Verified (Name & Yes Yes Yes ) Patient Requires Transmission-Based No No Precautions Height and Weight Body Mass Index (BMI) 48.9 48.9 48.9 BMI Classification Obese Obese Obese Vital Signs Temperature (97.8 F-99.1 F) 96.9 F L 95.0 F L 97.5 F L Temperature Source Temporal Temporal Temporal Pulse Rate (60-100) 81 82 64 Pulse Location Monitor Monitor Monitor Respiratory Rate (12-18) 18 18 18 Respiratory rate source Observation Observation Observation Oxygen Delivery Method Room Air Blood Pressure (90/60-120/80) 97/64 129/84 H 114/67 Blood Pressure Mean (mm Hg) 75 99 82 Source Monitor Monitor Monitor Position Sitting Blood Pressure Location Right Forearm History Since Last Visit- (Skip if this is Patient's initial visit) Have you changed medications since your No No No last visit? Any new allergies or adverse reactions No No No Had a fall/change in ADL's that may No No No increase risk of falls Signs or symptoms of abuse and/or No No No neglect since last visit Have you been in the hospital since your No No No last visit? Has dressing in place as prescribed Yes Yes Yes Has compression in place as prescribed No N/A Yes Has offloadiing in place as prescribed Yes N/A N/A Experienced any changes in pain level or No No No management Left Footwear Regular Shoe Right Footwear Regular Shoe Pain Scale: 0-10 Numeric Is Patient Pain Free? Yes Yes Yes 04/05/24 15:43 WC - Today's Visit Information Type of service Follow-up Visit (Physician/SHIRRING MACHINE OPERATOR ) Arrival Mode Ambulatory Transfer Assistance None Patient Identification Verified (Name & Yes ) Patient Requires Transmission-Based No Precautions Height and Weight Body Mass Index (BMI) 48.9 BMI Classification Obese Vital Signs Temperature (97.8 F-99.1 F) 96.6 F L Temperature Source Temporal Pulse Rate (60-100) 90 Pulse Location Monitor Respiratory Rate (12-18) 16 Respiratory rate source Observation Oxygen Delivery Method Room Air Blood Pressure (90/60-120/80) 98/53 L Blood Pressure Mean (mm Hg) 68 Source Monitor Position Sitting Blood Pressure Location History Since Last Visit- (Skip if this is Patient's initial visit) Have you changed medications since your No last visit? Any new allergies or adverse reactions No Had a fall/change in ADL's that may No increase risk of falls Signs or symptoms of abuse and/or No neglect since last visit Have you been in the hospital since your No last visit? Has dressing in place as prescribed Yes Has compression in place as prescribed N/A Has offloadiing in place as prescribed N/A Experienced any changes in pain level or No management Left Footwear Regular Shoe Right Footwear Regular Shoe Pain Scale: 0-10 Numeric Is Patient Pain Free? Yes WC - Nurse 1 - General Ulcer Measurement Start: 03/13/24 11:20 Freq: Status: Active Protocol: Activity Type Activity Date Activity User E-sign Co-sign Detail Recorded Client Recorded Date Recorded By Document 03/13/24 11:21 DL [email or web address] 03/13/24 11:29 DL Document 03/20/24 15:28 KW ][ 03/20/24 15:36 KW Document 03/29/24 15:37 DL [id number] 03/29/24 15:43 DL Document 04/05/24 15:43 BMF [id number] 04/05/24 15:45 BMF 03/13/24 03/20/24 03/29/24 11:21 15:28 15:37 Wound Center Nurse 1 9-sacrum -Combined with other wound -Current Size (cm) - Length 3.5 4.8 3.5 -Current Size (cm) - Width 0.5 0.3 1.4 -Current Size (cm) - Depth 4 3.4 1.9 -Total Square Cm 1.75 1.44 4.90 -Date of Last Picture (Recall this field) -Photo Taken -Epithelialization -Tunneling -Tunneling Position (O'clock) 11 -Tunneling Distance (cm) 3.5 -Undermining/Tunneling -Circular Undermining -Exudate Amt Large Large Medium -Exudate Type Serosanguineous Serosanguineous Serosanguineous -Wound Margin Distinct, Distinct, Distinct, Outline Outline Outline Attached Attached Attached -Granulation Amt Medium (34-66%) Large (67-100%) Medium (34-66%) -Granulation Quality Red Red Red -Slough/Fibrin -Necrosis Amt Medium (34-66%) Medium (34-66%) -Necrotic Tissue Type Adherent Slough Adherent Slough -Structure Exposed N/A N/A -Texture (Brenna-wound Skin Appearance) Scarring Assessed Scarring -Moisture (Brenna-wound Skin Appearance) No Abnormality Assessed No Abnormality -Color (Brenna-wound Skin Appearance) No Abnormality Assessed No Abnormality -Temperature (Brenna-wound Skin No Abnormality No Abnormality No Abnormality Appearance) (Pt Warm) (Pt Warm) (Pt Warm) -Tenderness on Palpation (Brenna-wound No No Skin Appearance) -Ulcer Cleansing Soap and Water Rinsed/ Soap and Water Irrigated with Saline -Foul Odor after Cleansing No No No -Anesthetic Used 5% Lidocaine 4% Lidocaine 5% Lidocaine Gel Solution Gel 04/05/24 15:43 Wound Center Nurse 1 9-sacrum -Combined with other wound No -Current Size (cm) - Length 3.8 -Current Size (cm) - Width 1.5 -Current Size (cm) - Depth 2.1 -Total Square Cm 5.70 -Date of Last Picture (Recall this 04/05/24 field) -Photo Taken Yes -Epithelialization Small 1-33% -Tunneling No -Tunneling Position (O'clock) -Tunneling Distance (cm) -Undermining/Tunneling No -Circular Undermining No -Exudate Amt Medium -Exudate Type Serosanguineous -Wound Margin Distinct, Outline Attached -Granulation Amt Large (67-100%) -Granulation Quality Red -Slough/Fibrin No -Necrosis Amt None Present (0 %) -Necrotic Tissue Type -Structure Exposed -Texture (Brenna-wound Skin Appearance) Assessed, Scarring -Moisture (Brenna-wound Skin Appearance) Assessed -Color (Brenna-wound Skin Appearance) Assessed -Temperature (Brenna-wound Skin No Abnormality Appearance) (Pt Warm) -Tenderness on Palpation (Brenna-wound No Skin Appearance) -Ulcer Cleansing Soap and Water -Foul Odor after Cleansing No -Anesthetic Used 4% Lidocaine Solution WC - Nurse 2 - General Ulcer CM Notes Start: 03/13/24 11:20 Freq: Status: Active Protocol: Activity Type Activity Date Activity User E-sign Co-sign Detail Recorded Client Recorded Date Recorded By Document 03/13/24 12:11 0000 03/13/24 12:15 Document 03/20/24 16:07 0000 03/20/24 16:12 Document 03/29/24 16:08 [id number] 03/29/24 16:11 Document 04/05/24 15:52 [id number] 04/05/24 15:57 03/13/24 03/20/24 03/29/24 12:11 16:07 16:08 Wound Center Nurse 2 9-sacrum -Time 12:12 16:07 16:08 -Correct Patient Yes Yes Yes -Correct Side, Site, Position Yes Yes Yes -Correct Procedure Yes Yes Yes -Procedure Performed Yes Yes Yes -Type of Procedure Debridement Debridement Debridement -Clinical Debridement Muscle / Fascia Muscle / Fascia Muscle / Fascia -Tissue Removed Muscle,Fascia Muscle,Fascia Muscle -Post Debridement (cm) - Length 4.6 4.5 4.0 -Post Debridement (cm) - Width 1 1 1.5 -Post Debridement (cm) - Depth 3.9 4.0 2.5 -Total Square (Post) (cm) 4.6 4.5 6.00 -Area of Debridement (cm) - Length 4.6 4.5 4.0 -Area of Debridement (cm) - Width 1.0 1 1.5 -Total Square (Area) (cm) 4.60 4.5 6.00 -Tunneling No No No -Undermining/Tunneling No No No -Circular Undermining No No No -Wound/Ulcer Outcome Not Healed Not Healed Not Healed -Ulcer Cleansing Rinsed/ Rinsed/ Rinsed/ Irrigated with Irrigated with Irrigated with Saline Saline Saline -Foul Odor after Cleansing No No No -Bioengineered Tissue No No No -Bleeding Controlled with Pressure Pressure Pressure -Treatment Response Procedure Procedure Procedure Tolerated Well Tolerated Well Tolerated Well -Offloading No No -Debridement - Muscle / Fascia, 1st Yes Yes Yes 20sq cm Pain Scale: 0-10 Numeric Is Patient Pain Free? Yes Yes Yes 04/05/24 15:52 Wound Center Nurse 2 9-sacrum -Time 15:52 -Correct Patient Yes -Correct Side, Site, Position Yes -Correct Procedure Yes -Procedure Performed Yes -Type of Procedure Debridement -Clinical Debridement Muscle / Fascia -Tissue Removed Muscle -Post Debridement (cm) - Length 4.0 -Post Debridement (cm) - Width 1.5 -Post Debridement (cm) - Depth 1.6 -Total Square (Post) (cm) 6.00 -Area of Debridement (cm) - Length 4.0 -Area of Debridement (cm) - Width 1.5 -Total Square (Area) (cm) 6.00 -Tunneling No -Undermining/Tunneling No -Circular Undermining No -Wound/Ulcer Outcome Not Healed -Ulcer Cleansing Rinsed/ Irrigated with Saline -Foul Odor after Cleansing No -Bioengineered Tissue No -Bleeding Controlled with Pressure -Treatment Response Procedure Tolerated Well -Offloading -Debridement - Muscle / Fascia, 1st Yes 20sq cm Pain Scale: 0-10 Numeric Is Patient Pain Free? Yes - Nurse 3 - General Ulcer D/C NN Start: 03/13/24 11:20 Freq: Status: Active Protocol: Activity Type Activity Date Activity User E-sign Co-sign Detail Recorded Client Recorded Date Recorded By Document 03/13/24 12:25 KW [email or web address] 03/13/24 12:26 KW Document 03/20/24 16:17 KW ][ 03/20/24 16:17 KW Document 03/29/24 16:20 CP [id number] 03/29/24 16:22 CP Document 04/05/24 16:01 DL [id number] 04/05/24 16:03 DL 03/13/24 03/20/24 03/29/24 12:25 16:17 16:20 Wound Care Center Nurse 3 9-sacrum -Ulcer Cleansing Rinsed/ Rinsed/ Rinsed/ Irrigated with Irrigated with Irrigated with Saline Saline Saline -Foul Odor after Cleansing -Negative Pressure Wound Therapy Start -Setting (mmHg) 150 150 -Negative Pressure is Continuous Continuous -Primary Dressing Applied -Other Dressing DAKENS SOAKED GAUZE -Primary Dressing Covered/Secured with Dry Gauze, Secured with Tape -NPWT Application Charge NPWT & NPWT & Debridement (nc Debridement (nc ) ) -Aquacel AG 4x4 -Mepilex Border Treatment Response Pain Scale: 0-10 Numeric Is Patient Pain Free? Yes Yes No WC - Visit Discharge Discharge Condition Stable Stable Ambulatory Status Ambulatory Ambulatory Transportation Private Auto Private Auto Medication Reconcilliation completed & No provided to patient/care provider Clinical Summary of Care Provided Yes Yes 04/05/24 16:01 Wound Care Center Nurse 3 9-sacrum -Ulcer Cleansing Rinsed/ Irrigated with Saline -Foul Odor after Cleansing No -Negative Pressure Wound Therapy -Setting (mmHg) -Negative Pressure is -Primary Dressing Applied Aquacel AG 4x4, Mepilex Border -Other Dressing -Primary Dressing Covered/Secured with -NPWT Application Charge -Aquacel AG 4x4 1 -Mepilex Border 1 Treatment Response Procedure Tolerated Well Pain Scale: 0-10 Numeric Is Patient Pain Free? Yes WC - Visit Discharge Discharge Condition Stable Ambulatory Status Ambulatory Transportation Private Auto Medication Reconcilliation completed & provided to patient/care provider Clinical Summary of Care Provided Assessment/Plan Assessment/Plan (1) Surgical wound, non healing: CODE(S): T81.89XA - Other complications of procedures, not elsewhere classified, initial encounter QUALIFIERS: Encounter type: initial encounter Qualified Code(s): T81.89XA - Other complications of procedures, not elsewhere classified, initial encounter (2) Pilonidal cyst: CODE(S): L05.91 - Pilonidal cyst without abscess (3) S/P pilonidal cyst excision: CODE(S): Z98.890 - Other specified postprocedural states (4) Ulcer of left lower extremity with muscle involvement without evidence of necrosis: CODE(S): L97.925 - Non-pressure chronic ulcer of unspecified part of left lower leg with muscle involvement without evidence of necrosis (5) History of necrotizing fasciitis: CODE(S): Z87.39 - Personal history of other diseases of the musculoskeletal system and connective tissue (6) Borderline personality disorder: CODE(S): F60.3 - Borderline personality disorder PLAN: Plan Patient was evaluated at the wound healing center today. Wound care - Wound VAC at 150 mmHg. Dressing is to be changed 3 times per week. She is to wash the wound with soap and water at the time of the dressing changes. She is not able to have the wound VAC when she is doing her clinicals. Her last clinical is tomorrow. She will restart the wound VAC tomorrow evening. Her wound care will be Aquacel-Ag placed into the base of ulcer, covered with fluffed gauze and topped with ABD daily until she restarts the wound VAC tomorrow at 150 mmHg. Wash the ulcer at the time of the dressing changes with soap and water. Compression - She is wearing compression stockings bilaterally. Encourage nutritional supplementation with protein to help the healing process. Instructed her to obtain her labwork. Follow up 1 week.
--- NOTE | 2024-04-12 09:52 | WC ---
PHOTO 04/05/24 [facility]
== END 2024-04-08 23:59 | disposition home or self-care (01) ==
LOC: WC 15:30
PROVIDERS: PCP Student in an Organized Health Care Education/Training Program; Referring Provider Student in an Organized Health Care Education/Training Program; Visit Provider Nurse Practitioner Family
DX: T81.89XA Other complications of procedures, not elsewhere classified, initial encounter (principal); L97.925 Non-pressure chronic ulcer of unspecified part of left lower leg with muscle involvement without evidence of necrosis; M72.6 Necrotizing fasciitis; F60.3 Borderline personality disorder; L05.91 Pilonidal cyst without abscess; Z87.39 Personal history of other diseases of the musculoskeletal system and connective tissue; Z98.890 Other specified postprocedural states
CPT/HCPCS: 11043

== ENCOUNTER 2024-05-03 15:30 | Outpatient (RCR) | payer MEDICAID, SELFPAY ==
[2024-04-09 00:40] VITALS: BP 127/86; PULSE 94; RESP 16; TEMP 35.7; BMI 48.9
[2024-04-12 15:20] VITALS: BP 99/61; PULSE 77; RESP 18; TEMP 35.7; BMI 48.9
--- NOTE | 2024-04-12 17:32 | PCM.WC.PN ---
History of Present Illness Date of Service: 04/12/24 Chief Complaint: non-healing ulcer left medial leg History of Wound: Patient is a 23 year old female who presents to the wound healing center for evaluation and treatment of a nonhealing ulcer left medial leg. Patient is a poor historian. Reviewed notes from [facility], she had been admitted to [facility] around 11/27/22 for cellulitis and worsening infection of her left lower leg. She ended having an I&D of her left medial leg, left lateral leg and left lateral thigh. She was diagnosed with necrotizing fasciitis. Her wound cultures were positive for Enterococcus and steno. Mycoplasma IGG and IgM (+). She was sent to [facility] on 2 weeks dapto, arthur, clinda, levaquin, and micafungin. Changed Dap to to Vanc. On 12/12 stopped vanc/levaquin/arthur and started IV fluc due to diagnosis of candidemia. She was discharged home from [facility] around the second week of December. She has a history of significant for depression, personality disorder, self harm, anxiety, asthma, recurrent cellulitis and ADHD and most recently Afib and tachycardia. She states that she did not cause these wounds and did not do anything to them to make them worse. She has a history of being accused of tampering with wounds. Surgery 04/07/23 - Surgical preparation left medial leg with incision and drainage and excisional debridement nonhealing infected MRSA ulcer, (126 cm2). Operative culture were negative but she was on Vancomycin and Fluconazole for positive cultures from 04/05/23 which were positive for MRSE and Staphylococcus haemolyticus. Wound culture obtained on 12/29/22 which was positive for Enterococcus faecalis, Corynebacterium amycolatum, and MRSE. She was treated with Augmentin and Doxycycline. Wound culture obtained 01/28/23 which was positive for Enterococcus faecalis and Corynebacterium striatum. She was started on Augmentin. Wound culture obtained 07/07/23 which was positive for Proteus mirabilis and MRSA. She was treated with Doxycycline and Augmentin. Wound culture obtained 08/18/23 which was positive for Proteus mirabilis, Enterococcus faecalis and Corynebacterium striatum. She completed the Augmentin. Left leg ultrasound obtained on 01/06/23 which showed There is no evidence of left lower extremity deep vein thrombosis. She was in [facility] for a week at the end of February 2023 for subcutaneous air around her wound. She states she cultured positive for MRSA and they had her on IV antibiotics. They used a wound VAC while she was in the hospital. She was placed on Doxycycline and has finished them. Wound Care - Thera-Skin 9 applications. Surgery 02/14/[address] Welsh for Pilonidal cystectomy. Today she denies fever, chills, nausea or vomiting. Progress of Wound: Pilonidal wound is smaller today. The base of the wound is beefy pink. She has been having issues with keeping a good seal with the wound VAC now there is less depth of the wound. Her left lateral leg ulcer has reopened, she thinks the compression stockings she wears during school has rubbed against the fragile scar which reopened the ulcer. The ulcer bed is pink, clinically does not look infected. Her left foot and ankle has +3 edema. Objective Data Objective Data Vital Signs: Vital Signs Temp Pulse Resp BP 96.2 F L 77 18 99/61 04/12/24 15:20 04/12/24 15:20 04/12/24 15:20 04/12/24 15:20 Weight: 276 lb Body Mass Index (BMI) 48.9 Charges/Coding Procedures Integumentary 111xxx-113xx: 12274 Stephany musc/fascia 20 sq cm/< (pilonidal wound) Multi Select Codes Integumentary Integumentary CPT Codes: 46082 Stephany subq tissue 20 sq cm/< (left lateral leg ulcer) Debridement Note Debridement Note Wound debrided: Pilonidal/sacral wound Laterality: Not Applicable Wound Grade/Stage: Grade 3 Type of Debridement: Excisional debridement Anesthesia Used: 4% Lidocaine Solution and 5% Lidocaine Gel Depth: Down to and including healthy tissue, in the subcutaneous layer and to muscle Percentage of wound debrided: 100 Instrument Used: 5mm curette Tissue Removed: Non viable tissue and slough into muscle. Severity: Fat Layer Exposed Amount of bleeding with debridement: Mild Bleeding Controlled with: Pressure and Compression and gauze Patient tolerated procedure: Patient tolerated procedure well Post-Debridement Measurements and Additional Note: Post-Debridement Measurements/Treatment WC - Nurse 1 - General Ulcer Assessment Start: 04/12/24 15:20 Freq: Status: Active Protocol: STALIN.LOWEXT Activity Type Activity Date Activity User E-sign Co-sign Detail Recorded Client Recorded Date Recorded By Document 04/12/24 15:20 DL [id number] 04/12/24 15:36 DL 04/12/24 15:20 - Today's Visit Information Type of service Follow-up Visit (Physician/OFFICE PROFESSIONAL ) Arrival Mode Ambulatory Transfer Assistance Transfer Board Patient Identification Verified (Name & Yes ) Patient Requires Transmission-Based No Precautions Height and Weight Body Mass Index (BMI) 48.9 BMI Classification Obese Vital Signs Temperature (97.8 F-99.1 F) 96.2 F L Temperature Source Temporal Pulse Rate (60-100) 77 Pulse Location Monitor Respiratory Rate (12-18) 18 Respiratory rate source Observation Blood Pressure (90/60-120/80) 99/61 Blood Pressure Mean (mm Hg) 73 Source Monitor History Since Last Visit- (Skip if this is Patient's initial visit) Have you changed medications since your No last visit? Any new allergies or adverse reactions No Had a fall/change in ADL's that may No increase risk of falls Signs or symptoms of abuse and/or No neglect since last visit Have you been in the hospital since your No last visit? Has dressing in place as prescribed Yes Has compression in place as prescribed No Has offloadiing in place as prescribed Yes Experienced any changes in pain level or No management Pain Scale: 0-10 Numeric Is Patient Pain Free? Yes - Nurse 1 - General Ulcer Measurement Start: 04/12/24 15:20 Freq: Status: Active Protocol: Activity Type Activity Date Activity User E-sign Co-sign Detail Recorded Client Recorded Date Recorded By Document 04/12/24 15:20 DL [id number] 04/12/24 15:36 04/12/24 15:20 Wound Center Nurse 1 #10 LLE Med -Current Size (cm) - Length 3.8 -Current Size (cm) - Width 4.1 -Current Size (cm) - Depth 0.1 -Total Square Cm 15.58 -Photo Taken Yes -Exudate Amt Medium -Exudate Type Serosanguineous -Wound Margin Distinct, Outline Attached -Granulation Amt Medium (34-66%) -Granulation Quality Vickery -Necrosis Amt Medium (34-66%) -Necrotic Tissue Type Adherent Slough -Structure Exposed N/A -Texture (Brenna-wound Skin Appearance) Scarring -Moisture (Brenna-wound Skin Appearance) No Abnormality -Color (Brenna-wound Skin Appearance) No Abnormality -Temperature (Brenna-wound Skin No Abnormality Appearance) (Pt Warm) -Ulcer Cleansing Soap and Water -Foul Odor after Cleansing No -Anesthetic Used 5% Lidocaine Gel 9-sacrum -Current Size (cm) - Length 3.4 -Current Size (cm) - Width 4.1 -Current Size (cm) - Depth 0.1 -Total Square Cm 13.94 -Photo Taken Yes -Exudate Amt Medium -Exudate Type Serosanguineous -Wound Margin Distinct, Outline Attached -Granulation Amt Large (67-100%) -Granulation Quality Red -Necrosis Amt Small (1-33%) -Necrotic Tissue Type Adherent Slough -Structure Exposed N/A -Texture (Brenna-wound Skin Appearance) Scarring,Rash -Moisture (Brenna-wound Skin Appearance) No Abnormality -Color (Brenna-wound Skin Appearance) No Abnormality -Temperature (Brenna-wound Skin No Abnormality Appearance) (Pt Warm) -Tenderness on Palpation (Brenna-wound No Skin Appearance) -Ulcer Cleansing Soap and Water -Foul Odor after Cleansing No -Anesthetic Used 5% Lidocaine Gel WC - Nurse 2 - General Ulcer CM Notes Start: 04/12/24 15:20 Freq: Status: Active Protocol: Activity Type Activity Date Activity User E-sign Co-sign Detail Recorded Client Recorded Date Recorded By Document 04/12/24 16:24 [id number] 04/12/24 16:34 04/12/24 16:24 Wound Center Nurse 2 #10 LLE Med -Time 16:24 -Correct Patient Yes -Correct Side, Site, Position Yes -Correct Procedure Yes -Procedure Performed Yes -Type of Procedure Debridement -Clinical Debridement Subcutaneous -Tissue Removed Subcutaneous -Post Debridement (cm) - Length 4.2 -Post Debridement (cm) - Width 4.2 -Post Debridement (cm) - Depth 0.1 -Total Square (Post) (cm) 17.64 -Area of Debridement (cm) - Length 4.2 -Area of Debridement (cm) - Width 4.2 -Total Square (Area) (cm) 17.64 -Tunneling No -Undermining/Tunneling No -Circular Undermining No -Wound/Ulcer Outcome Not Healed -Ulcer Cleansing Rinsed/ Irrigated with Saline -Foul Odor after Cleansing No -Bioengineered Tissue No -Bleeding Controlled with Pressure -Treatment Response Procedure Tolerated Well -Debridement - Subq, 1st 20sq cm Yes 9-sacrum -Time 16:27 -Correct Patient Yes -Correct Side, Site, Position Yes -Correct Procedure Yes -Procedure Performed Yes -Type of Procedure Debridement -Clinical Debridement Muscle / Fascia -Tissue Removed Muscle -Post Debridement (cm) - Length 4.0 -Post Debridement (cm) - Width 1.0 -Post Debridement (cm) - Depth 1.1 -Total Square (Post) (cm) 4.00 -Area of Debridement (cm) - Length 4.0 -Area of Debridement (cm) - Width 1.0 -Total Square (Area) (cm) 4.00 -Tunneling No -Undermining/Tunneling No -Circular Undermining No -Wound/Ulcer Outcome Not Healed -Ulcer Cleansing Rinsed/ Irrigated with Saline -Foul Odor after Cleansing No -Bioengineered Tissue No -Bleeding Controlled with Pressure -Treatment Response Procedure Tolerated Well -Debridement - Muscle / Fascia, 1st Yes 20sq cm Pain Scale: 0-10 Numeric Is Patient Pain Free? Yes - Nurse 3 - General Ulcer D/C NN Start: 04/12/24 15:20 Freq: Status: Active Protocol: Activity Type Activity Date Activity User E-sign Co-sign Detail Recorded Client Recorded Date Recorded By Document 04/12/24 16:41 DL [id number] 04/12/24 16:43 DL 04/12/24 16:41 Wound Care Center Nurse 3 #10 LLE Med -Ulcer Cleansing Rinsed/ Irrigated with Saline -Foul Odor after Cleansing No -Primary Dressing Applied Mepilex Border, Promogran Belle Matter -Mepilex Border 1 -Promogran Belle Matter 1 9-sacrum -Ulcer Cleansing Rinsed/ Irrigated with Saline -Foul Odor after Cleansing No -Primary Dressing Applied Aquacel AG 4x4 -Primary Dressing Covered/Secured with Dry Gauze -Other Covering ABD -Aquacel AG 4x4 1 Left -Compression Wrap Jonas Wrap Treatment Response Procedure Tolerated Well Pain Scale: 0-10 Numeric Is Patient Pain Free? Yes - Visit Discharge Discharge Condition Stable Ambulatory Status Ambulatory Transportation Private Auto Notes: dressing applied per Boris Pope today. Additional Wound Wound debrided: Left lateral leg ulcer Laterality: Left Wound Grade/Stage: Stage III Type of Debridement: Excisional debridement Anesthesia Used: 5% Lidocaine Gel Depth: Down to and including healthy tissue and in the subcutaneous layer Percentage of wound debrided: 100 Instrument Used: 5mm curette Tissue Removed: Non viable tissue and slough Severity: Fat Layer Exposed Amount of bleeding with debridement: Mild Bleeding Controlled with: Pressure and Compression and gauze Patient tolerated procedure: Patient tolerated procedure well Assessment/Plan Assessment/Plan (1) Surgical wound, non healing: CODE(S): T81.89XA - Other complications of procedures, not elsewhere classified, initial encounter QUALIFIERS: Encounter type: initial encounter Qualified Code(s): T81.89XA - Other complications of procedures, not elsewhere classified, initial encounter (2) Pilonidal cyst: CODE(S): L05.91 - Pilonidal cyst without abscess (3) S/P pilonidal cyst excision: CODE(S): Z98.890 - Other specified postprocedural states (4) Ulcer of left lower extremity with muscle involvement without evidence of necrosis: CODE(S): L97.925 - Non-pressure chronic ulcer of unspecified part of left lower leg with muscle involvement without evidence of necrosis (5) History of necrotizing fasciitis: CODE(S): Z87.39 - Personal history of other diseases of the musculoskeletal system and connective tissue (6) Borderline personality disorder: CODE(S): F60.3 - Borderline personality disorder PLAN: Plan Patient was evaluated at the wound healing center today. Wound care - Wound VAC to the pilonidal wound will be discontinued. Aquacel-Ag placed into the base of the ulcer topped with ABD daily. Left lateral leg ulcer place Belle covered with [place] SAP/silicone border dressing daily. She is to wash both areas with soap and water at the time of the dressing changes. Compression - She is wearing compression stockings bilaterally. Encourage nutritional supplementation with protein to help the healing process. Instructed her to obtain her labwork. Follow up 1 week.
--- NOTE | 2024-04-14 09:11 | WC ---
PHOTO 04/12/24 LEFT TOAN MI (I)
[2024-04-19 15:43] VITALS: BP 109/70; PULSE 79; RESP 14; TEMP 35.9; BMI 48.9
--- NOTE | 2024-04-19 17:01 | PCM.WC.PN ---
History of Present Illness Date of Service: 04/19/24 Chief Complaint: non-healing ulcer left medial leg History of Wound: Patient is a 23 year old female who presents to the wound healing center for evaluation and treatment of a nonhealing ulcer left medial leg. Patient is a poor historian. Reviewed notes from [facility], she had been admitted to [facility] around 11/27/22 for cellulitis and worsening infection of her left lower leg. She ended having an I&D of her left medial leg, left lateral leg and left lateral thigh. She was diagnosed with necrotizing fasciitis. Her wound cultures were positive for Enterococcus and steno. Mycoplasma IGG and IgM (+). She was sent to [facility] on 2 weeks dapto, arthur, clinda, levaquin, and micafungin. Changed Dap to to Vanc. On 12/12 stopped vanc/levaquin/arthur and started IV fluc due to diagnosis of candidemia. She was discharged home from [facility] around the second week of December. She has a history of significant for depression, personality disorder, self harm, anxiety, asthma, recurrent cellulitis and ADHD and most recently Afib and tachycardia. She states that she did not cause these wounds and did not do anything to them to make them worse. She has a history of being accused of tampering with wounds. Surgery 04/07/23 - Surgical preparation left medial leg with incision and drainage and excisional debridement nonhealing infected MRSA ulcer, (126 cm2). Operative culture were negative but she was on Vancomycin and Fluconazole for positive cultures from 04/05/23 which were positive for MRSE and Staphylococcus haemolyticus. Wound culture obtained on 12/29/22 which was positive for Enterococcus faecalis, Corynebacterium amycolatum, and MRSE. She was treated with Augmentin and Doxycycline. Wound culture obtained 01/28/23 which was positive for Enterococcus faecalis and Corynebacterium striatum. She was started on Augmentin. Wound culture obtained 07/07/23 which was positive for Proteus mirabilis and MRSA. She was treated with Doxycycline and Augmentin. Wound culture obtained 08/18/23 which was positive for Proteus mirabilis, Enterococcus faecalis and Corynebacterium striatum. She completed the Augmentin. Left leg ultrasound obtained on 01/06/23 which showed There is no evidence of left lower extremity deep vein thrombosis. She was in [facility] for a week at the end of February 2023 for subcutaneous air around her wound. She states she cultured positive for MRSA and they had her on IV antibiotics. They used a wound VAC while she was in the hospital. She was placed on Doxycycline and has finished them. Wound Care - Thera-Skin 9 applications. Surgery 02/14/[address] Welsh for Pilonidal cystectomy. Today she denies fever, chills, nausea or vomiting. Progress of Wound: Pilonidal wound is smaller today. The base of the wound is beefy pink. She states that her left leg ulcer has been having increased drainage with an odor. The ulcer bed is pink, clinically does not look infected. A wound culture was obtained today of her left leg ulcer.? A positive culture will necessitate antibiotic therapy. Objective Data Objective Data Vital Signs: Vital Signs Temp Pulse Resp BP 96.7 F L 79 14 109/70 04/19/24 15:43 04/19/24 15:43 04/19/24 15:43 04/19/24 15:43 Weight: 276 lb Body Mass Index (BMI) 48.9 Charges/Coding Procedures Integumentary [id number]: [id number] Stephany subq tissue 20 sq cm/< Debridement Note Debridement Note Wound debrided: Pilonidal/sacral wound Laterality: Not Applicable Wound Grade/Stage: Grade 3 Type of Debridement: Excisional debridement Anesthesia Used: 4% Lidocaine Solution and 5% Lidocaine Gel Depth: Down to and including healthy tissue and in the subcutaneous layer Percentage of wound debrided: 100 Instrument Used: 5mm curette Tissue Removed: Non viable tissue and slough into muscle. Severity: Fat Layer Exposed Amount of bleeding with debridement: Mild Bleeding Controlled with: Pressure and Compression and gauze Patient tolerated procedure: Patient tolerated procedure well Post-Debridement Measurements and Additional Note: Post-Debridement Measurements/Treatment STALIN - Nurse 1 - General Ulcer Assessment Start: 04/12/24 15:20 Freq: Status: Active Protocol: BOBO Activity Type Activity Date Activity User E-sign Co-sign Detail Recorded Client Recorded Date Recorded By Document 04/12/24 15:20 DL [id number] 04/12/24 15:36 DL Document 04/19/24 15:43 ML [id number] 04/19/24 15:50 ML 04/12/24 04/19/24 15:20 15:43 WC - Today's Visit Information Type of service Follow-up Visit Follow-up Visit (Physician/PROFESSOR OF MATHEMATICS (Physician/PROFESSOR OF MATHEMATICS ) ) Arrival Mode Ambulatory Ambulatory Transfer Assistance Transfer Board None Patient Identification Verified (Name & Yes Yes ) Patient Requires Transmission-Based No No Precautions Height and Weight Body Mass Index (BMI) 48.9 48.9 BMI Classification Obese Obese Vital Signs Temperature (97.8 F-99.1 F) 96.2 F L 96.7 F L Temperature Source Temporal Oral Pulse Rate (60-100) 77 79 Pulse Location Monitor Respiratory Rate (12-18) 18 14 Respiratory rate source Observation Observation Blood Pressure (90/60-120/80) 99/61 109/70 Blood Pressure Mean (mm Hg) 73 83 Source Monitor Monitor Position Sitting Blood Pressure Location Right Arm History Since Last Visit- (Skip if this is Patient's initial visit) Have you changed medications since your No No last visit? Any new allergies or adverse reactions No No Had a fall/change in ADL's that may No No increase risk of falls Signs or symptoms of abuse and/or No No neglect since last visit Have you been in the hospital since your No last visit? Has dressing in place as prescribed Yes Yes Has compression in place as prescribed No Yes Has offloadiing in place as prescribed Yes Experienced any changes in pain level or No No management Left Footwear Regular Shoe Right Footwear Regular Shoe Pain Scale: 0-10 Numeric Is Patient Pain Free? Yes Yes WC - Nurse 1 - General Ulcer Measurement Start: 04/12/24 15:20 Freq: Status: Active Protocol: Activity Type Activity Date Activity User E-sign Co-sign Detail Recorded Client Recorded Date Recorded By Document 04/12/24 15:20 DL [id number] 04/12/24 15:36 DL Document 04/19/24 15:43 ML [id number] 04/19/24 15:50 ML 04/12/24 04/19/24 15:20 15:43 Wound Center Nurse 1 #10 LLE Med -Current Size (cm) - Length 3.8 3.5 -Current Size (cm) - Width 4.1 3.7 -Current Size (cm) - Depth 0.1 0.1 -Total Square Cm 15.58 12.95 -Photo Taken Yes -Exudate Amt Medium Medium -Exudate Type Serosanguineous Serosanguineous -Wound Margin Distinct, Distinct, Outline Outline Attached Attached -Granulation Amt Medium (34-66%) Medium (34-66%) -Granulation Quality Wye -Slough/Fibrin Yes -Necrosis Amt Medium (34-66%) Medium (34-66%) -Necrotic Tissue Type Adherent Slough Adherent Slough -Structure Exposed N/A -Texture (Brenna-wound Skin Appearance) Scarring Assessed -Moisture (Brenna-wound Skin Appearance) No Abnormality Assessed -Color (Brenna-wound Skin Appearance) No Abnormality Assessed -Temperature (Brenna-wound Skin No Abnormality No Abnormality Appearance) (Pt Warm) (Pt Warm) -Ulcer Cleansing Soap and Water Rinsed/ Irrigated with Saline -Foul Odor after Cleansing No -Anesthetic Used 5% Lidocaine 5% Lidocaine Gel Gel 9-sacrum -Current Size (cm) - Length 3.4 2.2 -Current Size (cm) - Width 4.1 0.6 -Current Size (cm) - Depth 0.1 0.9 -Total Square Cm 13.94 1.32 -Photo Taken Yes -Exudate Amt Medium Medium -Exudate Type Serosanguineous Serosanguineous -Wound Margin Distinct, Distinct, Outline Outline Attached Attached -Granulation Amt Large (67-100%) Medium (34-66%) -Granulation Quality Red -Slough/Fibrin Yes -Necrosis Amt Small (1-33%) Medium (34-66%) -Necrotic Tissue Type Adherent Slough Adherent Slough -Structure Exposed N/A -Texture (Brenna-wound Skin Appearance) Scarring,Rash Assessed -Moisture (Brenna-wound Skin Appearance) No Abnormality Assessed -Color (Brenna-wound Skin Appearance) No Abnormality Assessed -Temperature (Brenna-wound Skin No Abnormality No Abnormality Appearance) (Pt Warm) (Pt Warm) -Tenderness on Palpation (Brenna-wound No No Skin Appearance) -Ulcer Cleansing Soap and Water Rinsed/ Irrigated with Saline -Foul Odor after Cleansing No -Anesthetic Used 5% Lidocaine 5% Lidocaine Gel Gel Left Calf (cm) 26.2 Left Ankle (cm) 43.6 WC - Nurse 2 - General Ulcer CM Notes Start: 04/12/24 15:20 Freq: Status: Active Protocol: Activity Type Activity Date Activity User E-sign Co-sign Detail Recorded Client Recorded Date Recorded By Document 04/12/24 16:24 [id number] 04/12/24 16:34 GM Document 04/19/24 16:34 [id number] 04/19/24 16:42 04/12/24 04/19/24 16:24 16:34 Wound Center Nurse 2 #10 CY Med -Time 16:24 16:41 -Correct Patient Yes Yes -Correct Side, Site, Position Yes Yes -Correct Procedure Yes Yes -Procedure Performed Yes Yes -Type of Procedure Debridement Debridement -Clinical Debridement Subcutaneous Subcutaneous -Tissue Removed Subcutaneous Subcutaneous -Post Debridement (cm) - Length 4.2 3.0 -Post Debridement (cm) - Width 4.2 3.5 -Post Debridement (cm) - Depth 0.1 0.1 -Total Square (Post) (cm) 17.64 10.50 -Area of Debridement (cm) - Length 4.2 3.0 -Area of Debridement (cm) - Width 4.2 3.5 -Total Square (Area) (cm) 17.64 10.50 -Tunneling No No -Undermining/Tunneling No No -Circular Undermining No No -Wound/Ulcer Outcome Not Healed Not Healed -Ulcer Cleansing Rinsed/ Rinsed/ Irrigated with Irrigated with Saline Saline -Foul Odor after Cleansing No No -Bioengineered Tissue No No -Bleeding Controlled with Pressure Pressure -Treatment Response Procedure Procedure Tolerated Well Tolerated Well -Debridement - Subq, 1st 20sq cm Yes No 9-sacrum -Time 16:27 16:35 -Correct Patient Yes Yes -Correct Side, Site, Position Yes Yes -Correct Procedure Yes Yes -Procedure Performed Yes Yes -Type of Procedure Debridement Debridement -Clinical Debridement Muscle / Fascia Subcutaneous -Tissue Removed Muscle Subcutaneous -Post Debridement (cm) - Length 4.0 2.5 -Post Debridement (cm) - Width 1.0 1.0 -Post Debridement (cm) - Depth 1.1 0.5 -Total Square (Post) (cm) 4.00 2.50 -Area of Debridement (cm) - Length 4.0 2.5 -Area of Debridement (cm) - Width 1.0 1.0 -Total Square (Area) (cm) 4.00 2.50 -Tunneling No No -Undermining/Tunneling No No -Circular Undermining No No -Wound/Ulcer Outcome Not Healed Not Healed -Ulcer Cleansing Rinsed/ Rinsed/ Irrigated with Irrigated with Saline Saline -Foul Odor after Cleansing No No -Bioengineered Tissue No No -Bleeding Controlled with Pressure Pressure -Treatment Response Procedure Procedure Tolerated Well Tolerated Well -Debridement - Subq, 1st 20sq cm Yes -Debridement - Muscle / Fascia, 1st Yes 20sq cm Pain Scale: 0-10 Numeric Is Patient Pain Free? Yes Yes - Nurse 3 - General Ulcer D/C NN Start: 04/12/24 15:20 Freq: Status: Active Protocol: Activity Type Activity Date Activity User E-sign Co-sign Detail Recorded Client Recorded Date Recorded By Document 04/12/24 16:41 DL [id number] 04/12/24 16:43 DL Document 04/19/24 16:46 KW [id number] 04/19/24 16:47 KW 04/12/24 04/19/24 16:41 16:46 Wound Care Center Nurse 3 #10 LLE Med -Ulcer Cleansing Rinsed/ Irrigated with Saline -Foul Odor after Cleansing No -Primary Dressing Applied Mepilex Border, Mepilex Border Promogran Belle Matter -Mepilex Border 1 1 -Promogran Belle Matter 1 9-sacrum -Ulcer Cleansing Rinsed/ Irrigated with Saline -Foul Odor after Cleansing No -Primary Dressing Applied Aquacel AG 4x4 Mepilex Border, Promogran Belle Matter -Primary Dressing Covered/Secured with Dry Gauze -Other Covering ABD -Aquacel AG 4x4 1 -Mepilex Border 1 -Promogran Belle Matter 1 Left -Compression Wrap Jonas Wrap Treatment Response Procedure Tolerated Well Pain Scale: 0-10 Numeric Is Patient Pain Free? Yes Yes - Visit Discharge Discharge Condition Stable Ambulatory Status Ambulatory Transportation Private Auto Notes: dressing applied per Boris Pope today. Additional Wound Wound debrided: Left lateral leg ulcer Laterality: Left Wound Grade/Stage: Stage III Type of Debridement: Excisional debridement Anesthesia Used: 5% Lidocaine Gel Depth: Down to and including healthy tissue and in the subcutaneous layer Percentage of wound debrided: 100 Instrument Used: 5mm curette Tissue Removed: Non viable tissue and slough Severity: Fat Layer Exposed Amount of bleeding with debridement: Mild Bleeding Controlled with: Pressure and Compression and gauze Patient tolerated procedure: Patient tolerated procedure well Assessment/Plan Assessment/Plan (1) Surgical wound, non healing: CODE(S): T81.89XA - Other complications of procedures, not elsewhere classified, initial encounter QUALIFIERS: Encounter type: initial encounter Qualified Code(s): T81.89XA - Other complications of procedures, not elsewhere classified, initial encounter (2) Pilonidal cyst: CODE(S): L05.91 - Pilonidal cyst without abscess (3) S/P pilonidal cyst excision: CODE(S): Z98.890 - Other specified postprocedural states (4) Ulcer of left lower extremity with muscle involvement without evidence of necrosis: CODE(S): L97.925 - Non-pressure chronic ulcer of unspecified part of left lower leg with muscle involvement without evidence of necrosis (5) History of necrotizing fasciitis: CODE(S): Z87.39 - Personal history of other diseases of the musculoskeletal system and connective tissue (6) Borderline personality disorder: CODE(S): F60.3 - Borderline personality disorder PLAN: Plan Patient was evaluated at the wound healing center today. Wound care - Belle to both the pilonidal and the left lateral leg ulcer place Belle covered with [place] SAP/silicone border/ABD dressing daily. She is to wash both areas with soap and water at the time of the dressing changes. Compression - She is wearing compression stockings bilaterally. Encourage nutritional supplementation with protein to help the healing process. A wound culture was obtained today of her left leg ulcer.? A positive culture will necessitate antibiotic therapy. Follow up 1 week.
--- NOTE | 2024-04-20 08:56 | WC ---
PHOTO 04/19/24 LEFT TOAN MI
--- NOTE | 2024-04-20 09:20 | WC ---
PHOTO 04/19/24 SACRUM
--- NOTE | 2024-04-25 11:54 | WC ---
Called and spoke to patient regarding her Doxycycline that was called in by Hilary Saleh DRIVER TRAINEE to [facility]. She verbalized understanding and will pick it up. She has an appt tomorrow with Hilary at wound center and has noticed more purulent drainage and per Hilary, was positive for MRSA.
[2024-04-26 15:48] VITALS: BP 107/61; PULSE 79; RESP 18; TEMP 36.2; BMI 48.9
--- NOTE | 2024-04-26 16:20 | PCM.WC.PN ---
History of Present Illness Date of Service: 04/26/24 Chief Complaint: non-healing ulcer left medial leg History of Wound: Patient is a 23 year old female who presents to the wound healing center for evaluation and treatment of a nonhealing ulcer left medial leg. Patient is a poor historian. Reviewed notes from [facility], she had been admitted to [place] around 11/27/22 for cellulitis and worsening infection of her left lower leg. She ended having an I&D of her left medial leg, left lateral leg and left lateral thigh. She was diagnosed with necrotizing fasciitis. Her wound cultures were positive for Enterococcus and steno. Mycoplasma IGG and IgM (+). She was sent to [facility] on 2 weeks dapto, arthur, clinda, levaquin, and micafungin. Changed Dap to to Vanc. On 12/12 stopped vanc/levaquin/arthur and started IV fluc due to diagnosis of candidemia. She was discharged home from [facility] around the second week of December. She has a history of significant for depression, personality disorder, self harm, anxiety, asthma, recurrent cellulitis and ADHD and most recently Afib and tachycardia. She states that she did not cause these wounds and did not do anything to them to make them worse. She has a history of being accused of tampering with wounds. Surgery 04/07/23 - Surgical preparation left medial leg with incision and drainage and excisional debridement nonhealing infected MRSA ulcer, (126 cm2). Operative culture were negative but she was on Vancomycin and Fluconazole for positive cultures from 04/05/23 which were positive for MRSE and Staphylococcus haemolyticus. Wound culture obtained on 12/29/22 which was positive for Enterococcus faecalis, Corynebacterium amycolatum, and MRSE. She was treated with Augmentin and Doxycycline. Wound culture obtained 01/28/23 which was positive for Enterococcus faecalis and Corynebacterium striatum. She was started on Augmentin. Wound culture obtained 07/07/23 which was positive for Proteus mirabilis and MRSA. She was treated with Doxycycline and Augmentin. Wound culture obtained 08/18/23 which was positive for Proteus mirabilis, Enterococcus faecalis and Corynebacterium striatum. She completed the Augmentin. Wound culture obtained 04/19/24 which was positive for MRSA. She was started on Doxycycline. She was in [facility] for a week at the end of February 2023 for subcutaneous air around her wound. She states she cultured positive for MRSA and they had her on IV antibiotics. They used a wound VAC while she was in the hospital. She was placed on Doxycycline and has finished them. Wound Care - Thera-Skin 9 applications. Surgery 02/14/[address] Welsh for Pilonidal cystectomy. Today she denies fever, chills, nausea or vomiting. Progress of Wound: Pilonidal wound is smaller today. The base of the wound is beefy pink. Her left leg ulcer had a positive wound culture last week for MRSA. She is tolerating her Doxycycline well. The left medial leg ulcer is stable, wound bed is beefy pink. Brenna wound is clear. Objective Data Objective Data Vital Signs: Vital Signs Temp Pulse Resp BP 97.2 F L 79 18 107/61 04/26/24 15:48 04/26/24 15:48 04/26/24 15:48 04/26/24 15:48 Weight: 276 lb Body Mass Index (BMI) 48.9 Lab / Micro Data Micro: Microbiology 04/19/24 16:35 Ulcer, Decubitus - Leg, Left Gram Stain - Final 04/19/24 16:35 Ulcer, Decubitus - Leg, Left Wound Culture - Final Meth. resistant Staph. aureus 04/19/24 16:35 Ulcer, Decubitus - Leg, Left Anaerobic Culture - Final No anaerobic bacteria isolated. Charges/Coding Procedures Integumentary [id number]: [id number] Stephany subq tissue 20 sq cm/< Debridement Note Debridement Note Wound debrided: Pilonidal/sacral wound Laterality: Not Applicable Wound Grade/Stage: Grade 3 Type of Debridement: Excisional debridement Anesthesia Used: 4% Lidocaine Solution and 5% Lidocaine Gel Depth: Down to and including healthy tissue and in the subcutaneous layer Percentage of wound debrided: 100 Instrument Used: 5mm curette Tissue Removed: Non viable tissue and slough into muscle. Severity: Fat Layer Exposed Amount of bleeding with debridement: Mild Bleeding Controlled with: Pressure and Compression and gauze Patient tolerated procedure: Patient tolerated procedure well Post-Debridement Measurements and Additional Note: Post-Debridement Measurements/Treatment STALIN - Nurse 1 - General Ulcer Assessment Start: 04/12/24 15:20 Freq: Status: Active Protocol: BOBO Activity Type Activity Date Activity User E-sign Co-sign Detail Recorded Client Recorded Date Recorded By Document 04/12/24 15:20 DL [id number] 04/12/24 15:36 DL Document 04/19/24 15:43 ML [id number] 04/19/24 15:50 ML Document 04/26/24 15:48 RB [id number] 04/26/24 15:51 RB 04/12/24 04/19/24 04/26/24 15:20 15:43 15:48 - Today's Visit Information Type of service Follow-up Visit Follow-up Visit Follow-up Visit (Physician/PULP MILL SUPERVISOR (Physician/PULP MILL SUPERVISOR (Physician/PULP MILL SUPERVISOR ) ) ) Arrival Mode Ambulatory Ambulatory Ambulatory Transfer Assistance Transfer Board None None Patient Identification Verified (Name & Yes Yes Yes ) Patient Requires Transmission-Based No No No Precautions Height and Weight Body Mass Index (BMI) 48.9 48.9 48.9 BMI Classification Obese Obese Obese Vital Signs Temperature (97.8 F-99.1 F) 96.2 F L 96.7 F L 97.2 F L Temperature Source Temporal Oral Temporal Pulse Rate (60-100) 77 79 79 Pulse Location Monitor Monitor Respiratory Rate (12-18) 18 14 18 Respiratory rate source Observation Observation Observation Blood Pressure (90/60-120/80) 99/61 109/70 107/61 Blood Pressure Mean (mm Hg) 73 83 76 Source Monitor Monitor Monitor Position Sitting Semi-Fowlers Blood Pressure Location Right Arm Left Arm History Since Last Visit- (Skip if this is Patient's initial visit) Have you changed medications since your No No No last visit? Any new allergies or adverse reactions No No No Had a fall/change in ADL's that may No No No increase risk of falls Signs or symptoms of abuse and/or No No No neglect since last visit Have you been in the hospital since your No No last visit? Has dressing in place as prescribed Yes Yes Yes Has compression in place as prescribed No Yes No Has offloadiing in place as prescribed Yes No Experienced any changes in pain level or No No No management Left Footwear Regular Shoe Right Footwear Regular Shoe Pain Scale: 0-10 Numeric Is Patient Pain Free? Yes Yes Yes - Nurse 1 - General Ulcer Measurement Start: 04/12/24 15:20 Freq: Status: Active Protocol: Activity Type Activity Date Activity User E-sign Co-sign Detail Recorded Client Recorded Date Recorded By Document 04/12/24 15:20 DL [id number] 04/12/24 15:36 DL Document 04/19/24 15:43 ML [id number] 04/19/24 15:50 ML Document 04/26/24 15:48 RB [id number] 04/26/24 15:51 RB 04/12/24 04/19/24 04/26/24 15:20 15:43 15:48 Wound Center Nurse 1 #10 LLE Med -Combined with other wound No -Current Size (cm) - Length 3.8 3.5 2.5 -Current Size (cm) - Width 4.1 3.7 3.4 -Current Size (cm) - Depth 0.1 0.1 0.1 -Total Square Cm 15.58 12.95 8.50 -Photo Taken Yes Yes -Tunneling No -Undermining/Tunneling No -Circular Undermining No -Exudate Amt Medium Medium Medium -Exudate Type Serosanguineous Serosanguineous Serosanguineous -Wound Margin Distinct, Distinct, Distinct, Outline Outline Outline Attached Attached Attached -Granulation Amt Medium (34-66%) Medium (34-66%) Medium (34-66%) -Granulation Quality Orang[place]ree Orangetree -Slough/Fibrin Yes Yes -Necrosis Amt Medium (34-66%) Medium (34-66%) Medium (34-66%) -Necrotic Tissue Type Adherent Slough Adherent Slough Adherent Slough -Structure Exposed N/A N/A -Texture (Brenna-wound Skin Appearance) Scarring Assessed Assessed, Scarring -Moisture (Brenna-wound Skin Appearance) No Abnormality Assessed Assessed -Color (Brenna-wound Skin Appearance) No Abnormality Assessed Assessed -Temperature (Brenna-wound Skin No Abnormality No Abnormality No Abnormality Appearance) (Pt Warm) (Pt Warm) (Pt Warm) -Tenderness on Palpation (Brenna-wound No Skin Appearance) -Ulcer Cleansing Soap and Water Rinsed/ Wound Cleanser Irrigated with Saline -Foul Odor after Cleansing No No -Anesthetic Used 5% Lidocaine 5% Lidocaine 4% Lidocaine Gel Gel Solution 9-sacrum -Combined with other wound No -Current Size (cm) - Length 3.4 2.2 2.5 -Current Size (cm) - Width 4.1 0.6 1 -Current Size (cm) - Depth 0.1 0.9 0.7 -Total Square Cm 13.94 1.32 2.5 -Photo Taken Yes Yes -Tunneling No -Undermining/Tunneling No -Circular Undermining No -Exudate Amt Medium Medium Medium -Exudate Type Serosanguineous Serosanguineous Serosanguineous -Wound Margin Distinct, Distinct, Distinct, Outline Outline Outline Attached Attached Attached -Granulation Amt Large (67-100%) Medium (34-66%) Medium (34-66%) -Granulation Quality Red [place]ang[place] -Slough/Fibrin Yes Yes -Necrosis Amt Small (1-33%) Medium (34-66%) Medium (34-66%) -Necrotic Tissue Type Adherent Slough Adherent Slough Adherent Slough -Structure Exposed N/A N/A -Texture (Brenna-wound Skin Appearance) Scarring,Rash Assessed Assessed, Scarring -Moisture (Brenna-wound Skin Appearance) No Abnormality Assessed Assessed -Color (Brenna-wound Skin Appearance) No Abnormality Assessed Assessed -Temperature (Brenna-wound Skin No Abnormality No Abnormality No Abnormality Appearance) (Pt Warm) (Pt Warm) (Pt Warm) -Tenderness on Palpation (Brenna-wound No No No Skin Appearance) -Ulcer Cleansing Soap and Water Rinsed/ Wound Cleanser Irrigated with Saline -Foul Odor after Cleansing No No -Anesthetic Used 5% Lidocaine 5% Lidocaine 5% Lidocaine Gel Gel Gel Left Calf (cm) 26.2 Left Ankle (cm) 43.6 WC - Nurse 2 - General Ulcer CM Notes Start: 04/12/24 15:20 Freq: Status: Active Protocol: Activity Type Activity Date Activity User E-sign Co-sign Detail Recorded Client Recorded Date Recorded By Document 04/12/24 16:24 [id number] 04/12/24 16:34 Document 04/19/24 16:34 [id number] 04/19/24 16:42 Document 04/26/24 15:54 [id number] 04/26/24 16:03 04/12/24 04/19/24 04/26/24 16:24 16:34 15:54 Wound Center Nurse 2 #10 LLE Med -Time 16:24 16:41 15:59 -Correct Patient Yes Yes Yes -Correct Side, Site, Position Yes Yes Yes -Correct Procedure Yes Yes Yes -Procedure Performed Yes Yes Yes -Type of Procedure Debridement Debridement Debridement -Clinical Debridement Subcutaneous Subcutaneous Subcutaneous -Tissue Removed Subcutaneous Subcutaneous Subcutaneous -Post Debridement (cm) - Length 4.2 3.0 3.3 -Post Debridement (cm) - Width 4.2 3.5 3.0 -Post Debridement (cm) - Depth 0.1 0.1 0.1 -Total Square (Post) (cm) 17.64 10.50 9.90 -Area of Debridement (cm) - Length 4.2 3.0 3.3 -Area of Debridement (cm) - Width 4.2 3.5 3.0 -Total Square (Area) (cm) 17.64 10.50 9.90 -Tunneling No No No -Undermining/Tunneling No No No -Circular Undermining No No No -Wound/Ulcer Outcome Not Healed Not Healed Not Healed -Ulcer Cleansing Rinsed/ Rinsed/ Rinsed/ Irrigated with Irrigated with Irrigated with Saline Saline Saline -Foul Odor after Cleansing No No No -Bioengineered Tissue No No No -Bleeding Controlled with Pressure Pressure Pressure -Treatment Response Procedure Procedure Procedure Tolerated Well Tolerated Well Tolerated Well -Debridement - Subq, 1st 20sq cm Yes No Yes 9-sacrum -Time 16:27 16:35 15:59 -Correct Patient Yes Yes Yes -Correct Side, Site, Position Yes Yes Yes -Correct Procedure Yes Yes Yes -Procedure Performed Yes Yes Yes -Type of Procedure Debridement Debridement Debridement -Clinical Debridement Muscle / Fascia Subcutaneous Subcutaneous -Tissue Removed Muscle Subcutaneous Subcutaneous -Post Debridement (cm) - Length 4.0 2.5 2.5 -Post Debridement (cm) - Width 1.0 1.0 0.8 -Post Debridement (cm) - Depth 1.1 0.5 0.3 -Total Square (Post) (cm) 4.00 2.50 2.00 -Area of Debridement (cm) - Length 4.0 2.5 2.5 -Area of Debridement (cm) - Width 1.0 1.0 0.8 -Total Square (Area) (cm) 4.00 2.50 2.00 -Tunneling No No No -Undermining/Tunneling No No No -Circular Undermining No No No -Wound/Ulcer Outcome Not Healed Not Healed Not Healed -Ulcer Cleansing Rinsed/ Rinsed/ Rinsed/ Irrigated with Irrigated with Irrigated with Saline Saline Saline -Foul Odor after Cleansing No No No -Bioengineered Tissue No No No -Bleeding Controlled with Pressure Pressure Pressure -Treatment Response Procedure Procedure Procedure Tolerated Well Tolerated Well Tolerated Well -Debridement - Subq, 1st 20sq cm Yes No -Debridement - Muscle / Fascia, 1st Yes 20sq cm Pain Scale: 0-10 Numeric Is Patient Pain Free? Yes Yes Yes - Nurse 3 - General Ulcer D/C NN Start: 04/12/24 15:20 Freq: Status: Active Protocol: Activity Type Activity Date Activity User E-sign Co-sign Detail Recorded Client Recorded Date Recorded By Document 04/12/24 16:41 DL [id number] 04/12/24 16:43 DL Document 04/19/24 16:46 KW [id number] 04/19/24 16:47 KW Document 04/26/24 16:11 GM [id number] 04/26/24 16:13 GM Document 04/26/24 16:13 DL [id number] 04/26/24 16:14 DL 04/12/24 04/19/24 04/26/24 16:41 16:46 16:11 Wound Care Center Nurse 3 #10 LLE Med -Ulcer Cleansing Rinsed/ Rinsed/ Irrigated with Irrigated with Saline Saline -Foul Odor after Cleansing No No -Primary Dressing Applied Mepilex Border, Mepilex Border Mepilex Border, Promogran Promogran Charo Matter Charo Matter -Mepilex Border 1 1 1 -Promogran Charo Matter 1 1 9-sacrum -Ulcer Cleansing Rinsed/ Rinsed/ Irrigated with Irrigated with Saline Saline -Foul Odor after Cleansing No No -Primary Dressing Applied Aquacel AG 4x4 Mepilex Border, Mepilex Border Promogran Charo Matter -Other Dressing charo -Primary Dressing Covered/Secured with Dry Gauze -Other Covering ABD -Aquacel AG 4x4 1 -Mepilex Border 1 1 -Promogran Charo Matter 1 Left -Compression Wrap Jonas Wrap -Stockings Treatment Response Procedure Tolerated Well Pain Scale: 0-10 Numeric Is Patient Pain Free? Yes Yes Yes - Visit Discharge Discharge Condition Stable Ambulatory Status Ambulatory Transportation Private Auto Notes: dressing applied per Boris Pope today. 04/26/24 16:13 Wound Care Center Nurse 3 #10 LLE Med -Ulcer Cleansing Rinsed/ Irrigated with Saline -Foul Odor after Cleansing No -Primary Dressing Applied Mepilex Border, Promogran Charo Matter -Mepilex Border 1 -Promogran Charo Matter 1 9-sacrum -Ulcer Cleansing Rinsed/ Irrigated with Saline -Foul Odor after Cleansing No -Primary Dressing Applied Mepilex Border -Other Dressing charo -Primary Dressing Covered/Secured with -Other Covering -Aquacel AG 4x4 -Mepilex Border 1 -Promogran Charo Matter Left -Compression Wrap -Stockings Yes Treatment Response Procedure Tolerated Well Pain Scale: 0-10 Numeric Is Patient Pain Free? Yes WC - Visit Discharge Discharge Condition Stable Ambulatory Status Ambulatory Transportation Private Auto Notes: Additional Wound Wound debrided: Left lateral leg ulcer Laterality: Left Wound Grade/Stage: Stage III Type of Debridement: Excisional debridement Anesthesia Used: 5% Lidocaine Gel Depth: Down to and including healthy tissue and in the subcutaneous layer Percentage of wound debrided: 100 Instrument Used: 5mm curette Tissue Removed: Non viable tissue and slough Severity: Fat Layer Exposed Amount of bleeding with debridement: Mild Bleeding Controlled with: Pressure and Compression and gauze Patient tolerated procedure: Patient tolerated procedure well Assessment/Plan Assessment/Plan (1) Surgical wound, non healing: CODE(S): T81.89XA - Other complications of procedures, not elsewhere classified, initial encounter QUALIFIERS: Encounter type: initial encounter Qualified Code(s): T81.89XA - Other complications of procedures, not elsewhere classified, initial encounter (2) Pilonidal cyst: CODE(S): L05.91 - Pilonidal cyst without abscess (3) S/P pilonidal cyst excision: CODE(S): Z98.890 - Other specified postprocedural states (4) Ulcer of left lower extremity with muscle involvement without evidence of necrosis: CODE(S): L97.925 - Non-pressure chronic ulcer of unspecified part of left lower leg with muscle involvement without evidence of necrosis (5) History of necrotizing fasciitis: CODE(S): Z87.39 - Personal history of other diseases of the musculoskeletal system and connective tissue (6) Borderline personality disorder: CODE(S): F60.3 - Borderline personality disorder PLAN: Plan Patient was evaluated at the wound healing center today. Wound care - Charo to both the pilonidal and the left lateral leg ulcer place Charo covered with Acme SAP/silicone border/ABD dressing daily. She is to wash both areas with soap and water at the time of the dressing changes. Compression - She is wearing compression stockings bilaterally. Encourage nutritional supplementation with protein to help the healing process. A wound culture was obtained 04/19/24 and was positive for MRSA. She is tolerating her Doxycycline well. Follow up 1 week.
--- NOTE | 2024-04-27 08:48 | WC ---
PHOTO 04/26/24 LEFT LEG
[2024-05-03 15:37] VITALS: BP 111/73; PULSE 79; RESP 16; TEMP 36.1; BMI 48.9
--- NOTE | 2024-05-03 17:28 | PN.PCM_ITS ---
History of Present Illness Date of Service: 05/03/24 Chief Complaint: non-healing ulcer left medial leg History of Wound: Patient is a 23 year old female who presents to the wound healing center for evaluation and treatment of a nonhealing ulcer left medial leg. Patient is a poor historian. Reviewed notes from [facility] [place], she had been admitted to [place] around 11/27/22 for cellulitis and worsening infection of her left lower leg. She ended having an I&D of her left medial leg, left lateral leg and left lateral thigh. She was diagnosed with necrotizing fasciitis. Her wound cultures were positive for Enterococcus and steno. Mycoplasma IGG and IgM (+). She was sent to [facility] on 2 weeks dapto, arthur, clinda, levaquin, and micafungin. Changed Dap to to Vanc. On 12/12 stopped vanc/levaquin/arthur and started IV fluc due to diagnosis of candidemia. She was discharged home from [facility] around the second week of December. She has a history of significant for depression, personality disorder, self harm, anxiety, asthma, recurrent cellulitis and ADHD and most recently Afib and tachycardia. She states that she did not cause these wounds and did not do anything to them to make them worse. She has a history of being accused of tampering with wounds. Surgery 04/07/23 - Surgical preparation left medial leg with incision and drainage and excisional debridement nonhealing infected MRSA ulcer, (126 cm2). Operative culture were negative but she was on Vancomycin and Fluconazole for positive cultures from 04/05/23 which were positive for MRSE and Staphylococcus haemolyticus. Wound culture obtained on 12/29/22 which was positive for Enterococcus faecalis, Corynebacterium amycolatum, and MRSE. She was treated with Augmentin and Doxycycline. Wound culture obtained 01/28/23 which was positive for Enterococcus faecalis and Corynebacterium striatum. She was started on Augmentin. Wound culture obtained 07/07/23 which was positive for Proteus mirabilis and MRSA. She was treated with Doxycycline and Augmentin. Wound culture obtained 08/18/23 which was positive for Proteus mirabilis, Enterococcus faecalis and Corynebacterium striatum. She completed the Augmentin. Wound culture obtained 04/19/24 which was positive for MRSA. She was started on Doxycycline. She was in [facility] for a week at the end of February 2023 for subcutaneous air around her wound. She states she cultured positive for MRSA and they had her on IV antibiotics. They used a wound VAC while she was in the hospital. She was placed on Doxycycline and has finished them. Wound Care - Thera-Skin 9 applications. Surgery 02/14/[address] Welsh for Pilonidal cystectomy. Today she denies fever, chills, nausea or vomiting. Progress of Wound: Pilonidal wound is smaller today. The base of the wound is beefy pink. Her left leg ulcer is also smaller this week. She is tolerating the antibiotics. Objective Data Objective Data Vital Signs: Vital Signs Temp Pulse Resp BP O2 Del Method 96.9 F L 79 16 111/73 Room Air 05/03/24 15:37 05/03/24 15:37 05/03/24 15:37 05/03/24 15:37 05/03/24 15:37 Oxygen Delivery Method Room Air Weight: 276 lb Body Mass Index (BMI) 48.9 Lab / Micro Data Micro: Microbiology 04/19/24 16:35 Ulcer, Decubitus - Leg, Left Gram Stain - Final 04/19/24 16:35 Ulcer, Decubitus - Leg, Left Wound Culture - Final Meth. resistant Staph. aureus 04/19/24 16:35 Ulcer, Decubitus - Leg, Left Anaerobic Culture - Final No anaerobic bacteria isolated. Charges/Coding Procedures Integumentary [id number]: [id number] Stephany subq tissue 20 sq cm/< Debridement Note Debridement Note Wound debrided: Pilonidal/sacral wound Laterality: Not Applicable Wound Grade/Stage: Grade 3 Type of Debridement: Excisional debridement Anesthesia Used: 4% Lidocaine Solution and 5% Lidocaine Gel Depth: Down to and including healthy tissue and in the subcutaneous layer Percentage of wound debrided: 100 Instrument Used: 5mm curette Tissue Removed: Non viable tissue and slough into muscle. Severity: Fat Layer Exposed Amount of bleeding with debridement: Mild Bleeding Controlled with: Pressure and Compression and gauze Patient tolerated procedure: Patient tolerated procedure well Post-Debridement Measurements and Additional Note: Post-Debridement Measurements/Treatment STALIN - Nurse 1 - General Ulcer Assessment Start: 04/12/24 15:20 Freq: Status: Active Protocol: BOBO Activity Type Activity Date Activity User E-sign Co-sign Detail Recorded Client Recorded Date Recorded By Document 04/12/24 15:20 DL [id number] 04/12/24 15:36 DL Document 04/19/24 15:43 ML [id number] 04/19/24 15:50 ML Document 04/26/24 15:48 RB [id number] 04/26/24 15:51 RB Document 05/03/24 15:37 BMF [id number] 05/03/24 15:49 BMF 04/12/24 04/19/24 04/26/24 15:20 15:43 15:48 WC - Today's Visit Information Type of service Follow-up Visit Follow-up Visit Follow-up Visit (Physician/SURGICAL ASSISTANT (Physician/SURGICAL ASSISTANT (Physician/SURGICAL ASSISTANT ) ) ) Arrival Mode Ambulatory Ambulatory Ambulatory Transfer Assistance Transfer Board None None Patient Identification Verified (Name & Yes Yes Yes ) Patient Requires Transmission-Based No No No Precautions Height and Weight Body Mass Index (BMI) 48.9 48.9 48.9 BMI Classification Obese Obese Obese Vital Signs Temperature (97.8 F-99.1 F) 96.2 F L 96.7 F L 97.2 F L Temperature Source Temporal Oral Temporal Pulse Rate (60-100) 77 79 79 Pulse Location Monitor Monitor Respiratory Rate (12-18) 18 14 18 Respiratory rate source Observation Observation Observation Oxygen Delivery Method Blood Pressure (90/60-120/80) 99/61 109/70 107/61 Blood Pressure Mean (mm Hg) 73 83 76 Source Monitor Monitor Monitor Position Sitting Semi-Fowlers Blood Pressure Location Right Arm Left Arm History Since Last Visit- (Skip if this is Patient's initial visit) Have you changed medications since your No No No last visit? Any new allergies or adverse reactions No No No Had a fall/change in ADL's that may No No No increase risk of falls Signs or symptoms of abuse and/or No No No neglect since last visit Have you been in the hospital since your No No last visit? Has dressing in place as prescribed Yes Yes Yes Has compression in place as prescribed No Yes No Has offloadiing in place as prescribed Yes No Experienced any changes in pain level or No No No management Left Footwear Regular Shoe Right Footwear Regular Shoe Pain Scale: 0-10 Numeric Is Patient Pain Free? Yes Yes Yes 05/03/24 15:37 WC - Today's Visit Information Type of service Follow-up Visit (Physician/SURGICAL ASSISTANT ) Arrival Mode Ambulatory Transfer Assistance None Patient Identification Verified (Name & Yes ) Patient Requires Transmission-Based No Precautions Height and Weight Body Mass Index (BMI) 48.9 BMI Classification Obese Vital Signs Temperature (97.8 F-99.1 F) 96.9 F L Temperature Source Temporal Pulse Rate (60-100) 79 Pulse Location Monitor Respiratory Rate (12-18) 16 Respiratory rate source Observation Oxygen Delivery Method Room Air Blood Pressure (90/60-120/80) 111/73 Blood Pressure Mean (mm Hg) 85 Source Monitor Position Sitting Blood Pressure Location Right Arm History Since Last Visit- (Skip if this is Patient's initial visit) Have you changed medications since your No last visit? Any new allergies or adverse reactions No Had a fall/change in ADL's that may No increase risk of falls Signs or symptoms of abuse and/or No neglect since last visit Have you been in the hospital since your No last visit? Has dressing in place as prescribed Yes Has compression in place as prescribed N/A Has offloadiing in place as prescribed N/A Experienced any changes in pain level or No management Left Footwear Regular Shoe Right Footwear Regular Shoe Pain Scale: 0-10 Numeric Is Patient Pain Free? Yes - Nurse 1 - General Ulcer Measurement Start: 04/12/24 15:20 Freq: Status: Active Protocol: Activity Type Activity Date Activity User E-sign Co-sign Detail Recorded Client Recorded Date Recorded By Document 04/12/24 15:20 DL [id number] 04/12/24 15:36 DL Document 04/19/24 15:43 ML [id number] 04/19/24 15:50 ML Document 04/26/24 15:48 RB [id number] 04/26/24 15:51 RB Document 05/03/24 15:37 BMF [id number] 05/03/24 15:49 BMF 04/12/24 04/19/24 04/26/24 15:20 15:43 15:48 Wound Center Nurse 1 #10 LLE Med -Combined with other wound No -Current Size (cm) - Length 3.8 3.5 2.5 -Current Size (cm) - Width 4.1 3.7 3.4 -Current Size (cm) - Depth 0.1 0.1 0.1 -Total Square Cm 15.58 12.95 8.50 -Date of Last Picture (Recall this field) -Photo Taken Yes Yes -Epithelialization -Tunneling No -Undermining/Tunneling No -Circular Undermining No -Exudate Amt Medium Medium Medium -Exudate Type Serosanguineous Serosanguineous Serosanguineous -Wound Margin Distinct, Distinct, Distinct, Outline Outline Outline Attached Attached Attached -Granulation Amt Medium (34-66%) Medium (34-66%) Medium (34-66%) -Granulation Quality [place] -Slough/Fibrin Yes Yes -Necrosis Amt Medium (34-66%) Medium (34-66%) Medium (34-66%) -Necrotic Tissue Type Adherent Slough Adherent Slough Adherent Slough -Structure Exposed N/A N/A -Texture (Brenna-wound Skin Appearance) Scarring Assessed Assessed, Scarring -Moisture (Brenna-wound Skin Appearance) No Abnormality Assessed Assessed -Color (Brenna-wound Skin Appearance) No Abnormality Assessed Assessed -Temperature (Brenna-wound Skin No Abnormality No Abnormality No Abnormality Appearance) (Pt Warm) (Pt Warm) (Pt Warm) -Tenderness on Palpation (Brenna-wound No Skin Appearance) -Ulcer Cleansing Soap and Water Rinsed/ Wound Cleanser Irrigated with Saline -Foul Odor after Cleansing No No -Anesthetic Used 5% Lidocaine 5% Lidocaine 4% Lidocaine Gel Gel Solution 9-sacrum -Combined with other wound No -Current Size (cm) - Length 3.4 2.2 2.5 -Current Size (cm) - Width 4.1 0.6 1 -Current Size (cm) - Depth 0.1 0.9 0.7 -Total Square Cm 13.94 1.32 2.5 -Date of Last Picture (Recall this field) -Photo Taken Yes Yes -Epithelialization -Tunneling No -Undermining/Tunneling No -Circular Undermining No -Exudate Amt Medium Medium Medium -Exudate Type Serosanguineous Serosanguineous Serosanguineous -Wound Margin Distinct, Distinct, Distinct, Outline Outline Outline Attached Attached Attached -Granulation Amt Large (67-100%) Medium (34-66%) Medium (34-66%) -Granulation Quality [place] -Slough/Fibrin Yes Yes -Necrosis Amt Small (1-33%) Medium (34-66%) Medium (34-66%) -Necrotic Tissue Type Adherent Slough Adherent Slough Adherent Slough -Structure Exposed N/A N/A -Texture (Brenna-wound Skin Appearance) Scarring,Rash Assessed Assessed, Scarring -Moisture (Brenna-wound Skin Appearance) No Abnormality Assessed Assessed -Color (Brenna-wound Skin Appearance) No Abnormality Assessed Assessed -Temperature (Brenna-wound Skin No Abnormality No Abnormality No Abnormality Appearance) (Pt Warm) (Pt Warm) (Pt Warm) -Tenderness on Palpation (Brenna-wound No No No Skin Appearance) -Ulcer Cleansing Soap and Water Rinsed/ Wound Cleanser Irrigated with Saline -Foul Odor after Cleansing No No -Anesthetic Used 5% Lidocaine 5% Lidocaine 5% Lidocaine Gel Gel Gel Left Calf (cm) 26.2 Left Ankle (cm) 43.6 05/03/24 15:37 Wound Center Nurse 1 #10 LLE Med -Combined with other wound No -Current Size (cm) - Length 2.1 -Current Size (cm) - Width 2.6 -Current Size (cm) - Depth 0.2 -Total Square Cm 5.46 -Date of Last Picture (Recall this 05/03/24 field) -Photo Taken Yes -Epithelialization Small 1-33% -Tunneling No -Undermining/Tunneling No -Circular Undermining No -Exudate Amt Medium -Exudate Type Serosanguineous -Wound Margin Distinct, Outline Attached -Granulation Amt Medium (34-66%) -Granulation Quality Red -Slough/Fibrin Yes -Necrosis Amt Small (1-33%) -Necrotic Tissue Type Adherent Slough -Structure Exposed -Texture (Brenna-wound Skin Appearance) Assessed, Scarring -Moisture (Brenna-wound Skin Appearance) Assessed,Dry/ Scaly -Color (Brenna-wound Skin Appearance) Assessed -Temperature (Brenna-wound Skin No Abnormality Appearance) (Pt Warm) -Tenderness on Palpation (Brenna-wound No Skin Appearance) -Ulcer Cleansing Rinsed/ Irrigated with Saline -Foul Odor after Cleansing No -Anesthetic Used 4% Lidocaine Solution 9-sacrum -Combined with other wound No -Current Size (cm) - Length 1.1 -Current Size (cm) - Width 0.2 -Current Size (cm) - Depth 0.5 -Total Square Cm 0.22 -Date of Last Picture (Recall this 05/03/24 field) -Photo Taken Yes -Epithelialization Large 67-100% -Tunneling No -Undermining/Tunneling No -Circular Undermining No -Exudate Amt Medium -Exudate Type Serosanguineous -Wound Margin Distinct, Outline Attached -Granulation Amt Large (67-100%) -Granulation Quality Red -Slough/Fibrin Yes -Necrosis Amt Small (1-33%) -Necrotic Tissue Type Adherent Slough -Structure Exposed -Texture (Brenna-wound Skin Appearance) Assessed, Scarring -Moisture (Brenna-wound Skin Appearance) Assessed -Color (Brenna-wound Skin Appearance) Assessed -Temperature (Brenna-wound Skin No Abnormality Appearance) (Pt Warm) -Tenderness on Palpation (Brenna-wound No Skin Appearance) -Ulcer Cleansing Rinsed/ Irrigated with Saline -Foul Odor after Cleansing No -Anesthetic Used 4% Lidocaine Solution Left Calf (cm) Left Ankle (cm) WC - Nurse 2 - General Ulcer CM Notes Start: 04/12/24 15:20 Freq: Status: Active Protocol: Activity Type Activity Date Activity User E-sign Co-sign Detail Recorded Client Recorded Date Recorded By Document 04/12/24 16:24 [id number] 04/12/24 16:34 Document 04/19/24 16:34 [id number] 04/19/24 16:42 Document 04/26/24 15:54 [id number] 04/26/24 16:03 Document 05/03/24 16:13 [id number] 05/03/24 16:15 04/12/24 04/19/24 04/26/24 16:24 16:34 15:54 Wound Center Nurse 2 #10 LLE Med -Time 16:24 16:41 15:59 -Correct Patient Yes Yes Yes -Correct Side, Site, Position Yes Yes Yes -Correct Procedure Yes Yes Yes -Procedure Performed Yes Yes Yes -Type of Procedure Debridement Debridement Debridement -Clinical Debridement Subcutaneous Subcutaneous Subcutaneous -Tissue Removed Subcutaneous Subcutaneous Subcutaneous -Post Debridement (cm) - Length 4.2 3.0 3.3 -Post Debridement (cm) - Width 4.2 3.5 3.0 -Post Debridement (cm) - Depth 0.1 0.1 0.1 -Total Square (Post) (cm) 17.64 10.50 9.90 -Area of Debridement (cm) - Length 4.2 3.0 3.3 -Area of Debridement (cm) - Width 4.2 3.5 3.0 -Total Square (Area) (cm) 17.64 10.50 9.90 -Tunneling No No No -Undermining/Tunneling No No No -Circular Undermining No No No -Wound/Ulcer Outcome Not Healed Not Healed Not Healed -Ulcer Cleansing Rinsed/ Rinsed/ Rinsed/ Irrigated with Irrigated with Irrigated with Saline Saline Saline -Foul Odor after Cleansing No No No -Bioengineered Tissue No No No -Bleeding Controlled with Pressure Pressure Pressure -Treatment Response Procedure Procedure Procedure Tolerated Well Tolerated Well Tolerated Well -Debridement - Subq, 1st 20sq cm Yes No Yes 9-sacrum -Time 16:27 16:35 15:59 -Correct Patient Yes Yes Yes -Correct Side, Site, Position Yes Yes Yes -Correct Procedure Yes Yes Yes -Procedure Performed Yes Yes Yes -Type of Procedure Debridement Debridement Debridement -Clinical Debridement Muscle / Fascia Subcutaneous Subcutaneous -Tissue Removed Muscle Subcutaneous Subcutaneous -Post Debridement (cm) - Length 4.0 2.5 2.5 -Post Debridement (cm) - Width 1.0 1.0 0.8 -Post Debridement (cm) - Depth 1.1 0.5 0.3 -Total Square (Post) (cm) 4.00 2.50 2.00 -Area of Debridement (cm) - Length 4.0 2.5 2.5 -Area of Debridement (cm) - Width 1.0 1.0 0.8 -Total Square (Area) (cm) 4.00 2.50 2.00 -Tunneling No No No -Undermining/Tunneling No No No -Circular Undermining No No No -Wound/Ulcer Outcome Not Healed Not Healed Not Healed -Ulcer Cleansing Rinsed/ Rinsed/ Rinsed/ Irrigated with Irrigated with Irrigated with Saline Saline Saline -Foul Odor after Cleansing No No No -Bioengineered Tissue No No No -Bleeding Controlled with Pressure Pressure Pressure -Treatment Response Procedure Procedure Procedure Tolerated Well Tolerated Well Tolerated Well -Debridement - Subq, 1st 20sq cm Yes No -Debridement - Muscle / Fascia, 1st Yes 20sq cm Pain Scale: 0-10 Numeric Is Patient Pain Free? Yes Yes Yes 05/03/24 16:13 Wound Center Nurse 2 #10 LLE Med -Time 16:14 -Correct Patient Yes -Correct Side, Site, Position Yes -Correct Procedure Yes -Procedure Performed Yes -Type of Procedure Debridement -Clinical Debridement Subcutaneous -Tissue Removed Subcutaneous -Post Debridement (cm) - Length 2.5 -Post Debridement (cm) - Width 3.0 -Post Debridement (cm) - Depth 0.1 -Total Square (Post) (cm) 7.50 -Area of Debridement (cm) - Length 2.5 -Area of Debridement (cm) - Width 3.0 -Total Square (Area) (cm) 7.50 -Tunneling No -Undermining/Tunneling No -Circular Undermining No -Wound/Ulcer Outcome Not Healed -Ulcer Cleansing Rinsed/ Irrigated with Saline -Foul Odor after Cleansing No -Bioengineered Tissue No -Bleeding Controlled with Pressure -Treatment Response Procedure Tolerated Well -Debridement - Subq, 1st 20sq cm Yes 9-sacrum -Time 16:13 -Correct Patient Yes -Correct Side, Site, Position Yes -Correct Procedure Yes -Procedure Performed Yes -Type of Procedure Debridement -Clinical Debridement Subcutaneous -Tissue Removed Subcutaneous -Post Debridement (cm) - Length 1.5 -Post Debridement (cm) - Width 0.1 -Post Debridement (cm) - Depth 0.4 -Total Square (Post) (cm) 0.15 -Area of Debridement (cm) - Length 1.5 -Area of Debridement (cm) - Width 0.1 -Total Square (Area) (cm) 0.15 -Tunneling No -Undermining/Tunneling No -Circular Undermining No -Wound/Ulcer Outcome Not Healed -Ulcer Cleansing Not Cleansed -Foul Odor after Cleansing No -Bioengineered Tissue -Bleeding Controlled with Pressure -Treatment Response Procedure Tolerated Well -Debridement - Subq, 1st 20sq cm No -Debridement - Muscle / Fascia, 1st 20sq cm Pain Scale: 0-10 Numeric Is Patient Pain Free? Yes WC - Nurse 3 - General Ulcer D/C NN Start: 04/12/24 15:20 Freq: Status: Active Protocol: Activity Type Activity Date Activity User E-sign Co-sign Detail Recorded Client Recorded Date Recorded By Document 04/12/24 16:41 DL [id number] 04/12/24 16:43 DL Document 04/19/24 16:46 KW [id number] 04/19/24 16:47 KW Document 04/26/24 16:11 [id number] 04/26/24 16:13 Document 04/26/24 16:13 DL [id number] 04/26/24 16:14 DL Document 05/03/24 16:24 [facility] [id number] 05/03/24 16:25 [facility] 04/12/24 04/19/24 04/26/24 16:41 16:46 16:11 Wound Care Center Nurse 3 #10 LLE Med -Ulcer Cleansing Rinsed/ Rinsed/ Irrigated with Irrigated with Saline Saline -Foul Odor after Cleansing No No -Primary Dressing Applied Mepilex Border, Mepilex Border Mepilex Border, Promogran Promogran Charo Matter Charo Matter -Other Dressing -Mepilex Border 1 1 1 -Promogran Charo Matter 1 1 9-sacrum -Ulcer Cleansing Rinsed/ Rinsed/ Irrigated with Irrigated with Saline Saline -Foul Odor after Cleansing No No -Primary Dressing Applied Aquacel AG 4x4 Mepilex Border, Mepilex Border Promogran Charo Matter -Other Dressing charo -Primary Dressing Covered/Secured with Dry Gauze -Other Covering ABD -Aquacel AG 4x4 1 -Mepilex Border 1 1 -Promogran Charo Matter 1 Left -Compression Wrap Jonas Wrap -Stockings -Other Treatment Response Procedure Tolerated Well Pain Scale: 0-10 Numeric Is Patient Pain Free? Yes Yes Yes WC - Visit Discharge Discharge Condition Stable Ambulatory Status Ambulatory Transportation Private Auto Notes: dressing applied per Boris cesar. 04/26/24 05/03/24 16:13 16:24 Wound Care Center Nurse 3 #10 LLE Med -Ulcer Cleansing Rinsed/ Rinsed/ Irrigated with Irrigated with Saline Saline -Foul Odor after Cleansing No No -Primary Dressing Applied Mepilex Border, Mepilex Border, Promogran Promogran Charo Matter Charo Matter -Other Dressing drsg per dl java application developer -Mepilex Border 1 1 -Promogran Charo Matter 1 1 9-sacrum -Ulcer Cleansing Rinsed/ Rinsed/ Irrigated with Irrigated with Saline Saline -Foul Odor after Cleansing No No -Primary Dressing Applied Mepilex Border Mepilex Border, Promogran Charo Matter -Other Dressing charo drsg per dl java application developer -Primary Dressing Covered/Secured with -Other Covering -Aquacel AG 4x4 -Mepilex Border 1 1 -Promogran Charo Matter 0 Left -Compression Wrap -Stockings Yes -Other refused jonas Treatment Response Procedure Procedure Tolerated Well Tolerated Well Pain Scale: 0-10 Numeric Is Patient Pain Free? Yes Yes WC - Visit Discharge Discharge Condition Stable Stable Ambulatory Status Ambulatory Ambulatory Transportation Private Auto Private Auto Notes: Additional Wound Wound debrided: Left lateral leg ulcer Laterality: Left Wound Grade/Stage: Stage III Type of Debridement: Excisional debridement Anesthesia Used: 5% Lidocaine Gel Depth: Down to and including healthy tissue and in the subcutaneous layer Percentage of wound debrided: 100 Instrument Used: 5mm curette Tissue Removed: Non viable tissue and slough Severity: Fat Layer Exposed Amount of bleeding with debridement: Mild Bleeding Controlled with: Pressure and Compression and gauze Patient tolerated procedure: Patient tolerated procedure well Assessment/Plan Assessment/Plan (1) Surgical wound, non healing: CODE(S): T81.89XA - Other complications of procedures, not elsewhere classified, initial encounter QUALIFIERS: Encounter type: initial encounter Qualified Code(s): T81.89XA - Other complications of procedures, not elsewhere classified, initial encounter (2) Pilonidal cyst: CODE(S): L05.91 - Pilonidal cyst without abscess (3) S/P pilonidal cyst excision: CODE(S): Z98.890 - Other specified postprocedural states (4) Ulcer of left lower extremity with muscle involvement without evidence of necrosis: CODE(S): L97.925 - Non-pressure chronic ulcer of unspecified part of left lower leg with muscle involvement without evidence of necrosis (5) History of necrotizing fasciitis: CODE(S): Z87.39 - Personal history of other diseases of the musculoskeletal system and connective tissue (6) Borderline personality disorder: CODE(S): F60.3 - Borderline personality disorder PLAN: Plan Patient was evaluated at the wound healing center today. Wound care - Charo to both the pilonidal and the left lateral leg ulcer place Charo covered with [place] SAP/silicone border/ABD dressing daily. She is to wash both areas with soap and water at the time of the dressing changes. Compression - She is wearing compression stockings bilaterally. Encourage nutritional supplementation with protein to help the healing process. A wound culture was obtained 04/19/24 and was positive for MRSA. She is tolerating her Doxycycline well. Follow up 1 week.
--- NOTE | 2024-05-05 09:07 | WC ---
PHOTO 05/03/24 CY JOYA
== END 2024-05-08 23:59 | disposition home or self-care (01) ==
LOC: WC 15:30
PROVIDERS: PCP Student in an Organized Health Care Education/Training Program; Referring Provider Student in an Organized Health Care Education/Training Program; Visit Provider Nurse Practitioner Family
DX: L97.822 Non-pressure chronic ulcer of other part of left lower leg with fat layer exposed (principal); F60.3 Borderline personality disorder; T81.89XA Other complications of procedures, not elsewhere classified, initial encounter; Z86.14 Personal history of Methicillin resistant Staphylococcus aureus infection; L05.91 Pilonidal cyst without abscess; R60.0 Localized edema; J45.909 Unspecified asthma, uncomplicated; S31.000A Unspecified open wound of lower back and pelvis without penetration into retroperitoneum, initial encounter; Y83.8 Other surgical procedures as the cause of abnormal reaction of the patient, or of later complication, without mention of misadventure at the time of the procedure
CPT/HCPCS: 11042; 11043; 87070; 87075; 87077; 87186; 87205

== ENCOUNTER → 2024-05-05 | Outpatient (CLI) | payer MEDICAID, SELFPAY ==
[2024-05-05 10:13] LABS: Hematocrit 41.5 % (37-47); Hemoglobin 13.7 g/dL (12.0-15.0); Mean Corpuscular Hgb 29.8 pg (27.0-32.0); Mean Corpuscular Volume 90.2 fL (81-99); Mean Platelet Vol. 10.5 fl (6.2-12.0); Platelet Count 252 K/mm3 (150-450); RBC Distribution Width CV 13.2 % (11.6-14.6); RBC Distribution Width SD 42.5 fl (35.1-43.9); White Blood Count 7.9 K/mm3 (4.4-11.0)
[2024-05-05 10:39] LABS: AST(SGOT) 23 U/L (15-37); Alanine Aminotransfer ALT/SGPT 36 U/L (13-56); Albumin, Serum 3.5 g/dL (3.2-5.0); Alkaline Phosphatase 101 U/L (45-117); Anion Gap 5 (5-15); BUN 10 mg/dL (7-18); BUN/Creat Ratio 9.6 RATIO (10-20); Calcium,Total 8.8 mg/dL (8.5-10.1); Chloride 111 mmol/L (98-107); Creatinine, Serum 1.04 mg/dL (0.55-1.02); EST Glomerular Filtration Rate 69 mL/min (>60); Est Glom Filt Rate - Afr Amer 84 mL/min (>60); Globulin 3.4 g/dL (2.2-4.2); Glucose 127 mg/dL (74-106); Potassium 3.8 mmol/L (3.5-5.1); Protein, Total 6.9 g/dL (6.4-8.2); Sodium Level 138 mmol/L (136-145)
[2024-05-05 10:49] LABS: Hemoglobin A1c 4.5 % (3.8-5.6)
[2024-05-06 10:08] LABS: Prealbumin 21 mg/dL (14-35)
== END | disposition home or self-care (01) ==
LOC: LAB 09:24
PROVIDERS: Nurse Practitioner Family; PCP Student in an Organized Health Care Education/Training Program; Referring Provider Student in an Organized Health Care Education/Training Program; Visit Provider Student in an Organized Health Care Education/Training Program
DX: F31.9 Bipolar disorder, unspecified (principal); Z51.81 Encounter for therapeutic drug level monitoring; L05.91 Pilonidal cyst without abscess; T81.89XA Other complications of procedures, not elsewhere classified, initial encounter
CPT/HCPCS: 36415; 80053; 80178; 83036; 84134; 85027

== ENCOUNTER 2024-06-07 15:30 | Outpatient (RCR) | payer MEDICAID, SELFPAY ==
[2024-05-09 00:40] VITALS: BP 127/86; PULSE 94; RESP 16; TEMP 35.7; BMI 48.9
[2024-05-17 15:43] VITALS: BP 123/76; PULSE 82; RESP 18; TEMP 35.7; BMI 48.9
--- NOTE | 2024-05-17 16:23 | PN.PCM_ITS ---
History of Present Illness Date of Service: 05/17/24 Chief Complaint: non-healing ulcer left medial leg History of Wound: Patient is a 23 year old female who presents to the wound healing center for evaluation and treatment of a nonhealing ulcer left medial leg. Patient is a poor historian. Reviewed notes from [facility] [place], she had been admitted to [place] around 11/27/22 for cellulitis and worsening infection of her left lower leg. She ended having an I&D of her left medial leg, left lateral leg and left lateral thigh. She was diagnosed with necrotizing fasciitis. Her wound cultures were positive for Enterococcus and steno. Mycoplasma IGG and IgM (+). She was sent to [facility] on 2 weeks dapto, arthur, clinda, levaquin, and micafungin. Changed Dap to to Vanc. On 12/12 stopped vanc/levaquin/arthur and started IV fluc due to diagnosis of candidemia. She was discharged home from [facility] around the second week of December. She has a history of significant for depression, personality disorder, self harm, anxiety, asthma, recurrent cellulitis and ADHD and most recently Afib and tachycardia. She states that she did not cause these wounds and did not do anything to them to make them worse. She has a history of being accused of tampering with wounds. Surgery 04/07/23 - Surgical preparation left medial leg with incision and drainage and excisional debridement nonhealing infected MRSA ulcer, (126 cm2). Operative culture were negative but she was on Vancomycin and Fluconazole for positive cultures from 04/05/23 which were positive for MRSE and Staphylococcus haemolyticus. Wound culture obtained on 12/29/22 which was positive for Enterococcus faecalis, Corynebacterium amycolatum, and MRSE. She was treated with Augmentin and Doxycycline. Wound culture obtained 01/28/23 which was positive for Enterococcus faecalis and Corynebacterium striatum. She was started on Augmentin. Wound culture obtained 07/07/23 which was positive for Proteus mirabilis and MRSA. She was treated with Doxycycline and Augmentin. Wound culture obtained 08/18/23 which was positive for Proteus mirabilis, Enterococcus faecalis and Corynebacterium striatum. She completed the Augmentin. Wound culture obtained 04/19/24 which was positive for MRSA. She was started on Doxycycline. She was in [facility] for a week at the end of February 2023 for subcutaneous air around her wound. She states she cultured positive for MRSA and they had her on IV antibiotics. They used a wound VAC while she was in the hospital. She was placed on Doxycycline and has finished them. Wound Care - Thera-Skin 9 applications. Surgery 02/14/[address] Welsh for Pilonidal cystectomy. Today she denies fever, chills, nausea or vomiting. Progress of Wound: Pilonidal wound is healed today. Her left leg ulcer is smaller this week. Objective Data Objective Data Vital Signs: Vital Signs Temp Pulse Resp BP 96.2 F L 82 18 123/76 H 05/17/24 15:43 05/17/24 15:43 05/17/24 15:43 05/17/24 15:43 Weight: 276 lb Body Mass Index (BMI) 48.9 Charges/Coding Procedures Integumentary 111xxx-113xx: 58255 Stephany subq tissue 20 sq cm/< Debridement Note Debridement Note Wound debrided: Left lateral leg ulcer Laterality: Left Wound Grade/Stage: Stage III Type of Debridement: Excisional debridement Anesthesia Used: 4% Lidocaine Solution and 5% Lidocaine Gel Depth: Down to and including healthy tissue and in the subcutaneous layer Percentage of wound debrided: 100 Instrument Used: 5mm curette Tissue Removed: Non viable tissue and slough Severity: Fat Layer Exposed Amount of bleeding with debridement: Mild Bleeding Controlled with: Pressure and Compression and gauze Patient tolerated procedure: Patient tolerated procedure well Post-Debridement Measurements and Additional Note: Post-Debridement Measurements/Treatment - Nurse 1 - General Ulcer Assessment Start: 05/17/24 15:43 Freq: Status: Active Protocol: BOBO Activity Type Activity Date Activity User E-sign Co-sign Detail Recorded Client Recorded Date Recorded By Document 05/17/24 15:43 DL [id number] 05/17/24 15:50 DL 05/17/24 15:43 - Today's Visit Information Type of service Follow-up Visit (Physician/CT SCAN TECHNICIAN ) Arrival Mode Ambulatory Transfer Assistance None Patient Identification Verified (Name & Yes ) Patient Requires Transmission-Based No Precautions Height and Weight Body Mass Index (BMI) 48.9 BMI Classification Obese Vital Signs Temperature (97.8 F-99.1 F) 96.2 F L Temperature Source Temporal Pulse Rate (60-100) 82 Pulse Location Monitor Respiratory Rate (12-18) 18 Respiratory rate source Observation Blood Pressure (90/60-120/80) 123/76 H Blood Pressure Mean (mm Hg) 91 Source Monitor History Since Last Visit- (Skip if this is Patient's initial visit) Have you changed medications since your No last visit? Any new allergies or adverse reactions No Had a fall/change in ADL's that may No increase risk of falls Signs or symptoms of abuse and/or No neglect since last visit Have you been in the hospital since your No last visit? Has dressing in place as prescribed Yes Has compression in place as prescribed Yes Has offloadiing in place as prescribed Yes Experienced any changes in pain level or No management Pain Scale: 0-10 Numeric Is Patient Pain Free? Yes WC - Nurse 1 - General Ulcer Measurement Start: 05/17/24 15:43 Freq: Status: Active Protocol: Activity Type Activity Date Activity User E-sign Co-sign Detail Recorded Client Recorded Date Recorded By Document 05/17/24 15:43 DL [id number] 05/17/24 15:50 DL 05/17/24 15:43 Wound Center Nurse 1 #10 LLE Med -Current Size (cm) - Length 1.6 -Current Size (cm) - Width 2 -Current Size (cm) - Depth 0.1 -Total Square Cm 3.2 -Photo Taken Yes -Exudate Amt Medium -Exudate Type Serosanguineous -Wound Margin Distinct, Outline Attached -Granulation Amt Medium (34-66%) -Granulation Quality [place] -Necrosis Amt Medium (34-66%) -Necrotic Tissue Type Adherent Slough -Structure Exposed N/A -Texture (Brenna-wound Skin Appearance) Scarring -Moisture (Brenna-wound Skin Appearance) No Abnormality -Color (Brenna-wound Skin Appearance) No Abnormality -Temperature (Brenna-wound Skin No Abnormality Appearance) (Pt Warm) -Tenderness on Palpation (Brenna-wound No Skin Appearance) -Ulcer Cleansing Soap and Water -Foul Odor after Cleansing No -Anesthetic Used 5% Lidocaine Gel 9-sacrum -Current Size (cm) - Length 0 -Current Size (cm) - Width 0 -Current Size (cm) - Depth 0 -Total Square Cm 0 -Photo Taken Yes -Exudate Amt None Present -Wound Margin Flat & Intact -Granulation Amt Large (67-100%) -Granulation Quality [place],Red -Necrosis Amt None Present (0 %) -Structure Exposed N/A -Texture (Brenna-wound Skin Appearance) Scarring -Moisture (Brenna-wound Skin Appearance) No Abnormality -Color (Brenna-wound Skin Appearance) No Abnormality -Temperature (Brenna-wound Skin No Abnormality Appearance) (Pt Warm) -Tenderness on Palpation (Brenna-wound No Skin Appearance) -Ulcer Cleansing Rinsed/ Irrigated with Saline -Foul Odor after Cleansing No WC - Nurse 2 - General Ulcer CM Notes Start: 05/17/24 15:43 Freq: Status: Active Protocol: Activity Type Activity Date Activity User E-sign Co-sign Detail Recorded Client Recorded Date Recorded By Document 05/17/24 16:05 [id number] 05/17/24 16:13 05/17/24 16:05 Wound Center Nurse 2 #10 LLE Med -Time 16:05 -Correct Patient Yes -Correct Side, Site, Position Yes -Correct Procedure Yes -Procedure Performed Yes -Type of Procedure Debridement -Clinical Debridement Subcutaneous -Tissue Removed Subcutaneous -Post Debridement (cm) - Length 2.2 -Post Debridement (cm) - Width 2.0 -Post Debridement (cm) - Depth 0.1 -Total Square (Post) (cm) 4.40 -Area of Debridement (cm) - Length 2.2 -Area of Debridement (cm) - Width 2.0 -Total Square (Area) (cm) 4.40 -Tunneling No -Undermining/Tunneling No -Circular Undermining No -Wound/Ulcer Outcome Not Healed -Ulcer Cleansing Rinsed/ Irrigated with Saline -Foul Odor after Cleansing No -Bioengineered Tissue No -Bleeding Controlled with Pressure -Treatment Response Procedure Tolerated Well -Debridement - Subq, 1st 20sq cm Yes 9-sacrum -Time 16:05 -Correct Patient Yes -Correct Side, Site, Position Yes -Wound/Ulcer Outcome Healed- Epithelialized Pain Scale: 0-10 Numeric Is Patient Pain Free? Yes Assessment/Plan Assessment/Plan (1) Surgical wound, non healing: CODE(S): T81.89XA - Other complications of procedures, not elsewhere classified, initial encounter QUALIFIERS: Encounter type: initial encounter Qualified Code(s): T81.89XA - Other complications of procedures, not elsewhere classified, initial encounter (2) Pilonidal cyst: CODE(S): L05.91 - Pilonidal cyst without abscess (3) S/P pilonidal cyst excision: CODE(S): Z98.890 - Other specified postprocedural states (4) Ulcer of left lower extremity with muscle involvement without evidence of necrosis: CODE(S): L97.925 - Non-pressure chronic ulcer of unspecified part of left lower leg with muscle involvement without evidence of necrosis (5) History of necrotizing fasciitis: CODE(S): Z87.39 - Personal history of other diseases of the musculoskeletal system and connective tissue (6) Borderline personality disorder: CODE(S): F60.3 - Borderline personality disorder PLAN: Plan Patient was evaluated at the wound healing center today. Pilonidal wound is now healed. Instructed her to be careful with this area as it has fragile epithelialization present and it may reopen with activity or perspiration. Try to keep area clean and dry. Wound care - Belle the left lateral leg ulcer place Belle covered with [place] SAP/silicone border/ABD dressing daily. She is to wash the area with soap and water at the time of the dressing changes. Compression - She is wearing compression stockings bilaterally. Encourage nutritional supplementation with protein to help the healing process. A wound culture was obtained 04/19/24 and was positive for MRSA. She completed her Doxycycline. Follow up 1 week.
[2024-05-24 15:49] VITALS: BP 108/67; PULSE 86; RESP 18; BMI 48.9
--- NOTE | 2024-05-24 16:34 | PCM.WC.PN ---
History of Present Illness Date of Service: 05/24/24 Chief Complaint: non-healing ulcer left medial leg History of Wound: Patient is a 23 year old female who presents to the wound healing center for evaluation and treatment of a nonhealing ulcer left medial leg. Patient is a poor historian. Reviewed notes from [facility] [place], she had been admitted to [place] around 11/27/22 for cellulitis and worsening infection of her left lower leg. She ended having an I&D of her left medial leg, left lateral leg and left lateral thigh. She was diagnosed with necrotizing fasciitis. Her wound cultures were positive for Enterococcus and steno. Mycoplasma IGG and IgM (+). She was sent to [facility] on 2 weeks dapto, arthur, clinda, levaquin, and micafungin. Changed Dap to to Vanc. On 12/12 stopped vanc/levaquin/arthur and started IV fluc due to diagnosis of candidemia. She was discharged home from [facility] around the second week of December. She has a history of significant for depression, personality disorder, self harm, anxiety, asthma, recurrent cellulitis and ADHD and most recently Afib and tachycardia. She states that she did not cause these wounds and did not do anything to them to make them worse. She has a history of being accused of tampering with wounds. Surgery 04/07/23 - Surgical preparation left medial leg with incision and drainage and excisional debridement nonhealing infected MRSA ulcer, (126 cm2). Operative culture were negative but she was on Vancomycin and Fluconazole for positive cultures from 04/05/23 which were positive for MRSE and Staphylococcus haemolyticus. Wound culture obtained on 12/29/22 which was positive for Enterococcus faecalis, Corynebacterium amycolatum, and MRSE. She was treated with Augmentin and Doxycycline. Wound culture obtained 01/28/23 which was positive for Enterococcus faecalis and Corynebacterium striatum. She was started on Augmentin. Wound culture obtained 07/07/23 which was positive for Proteus mirabilis and MRSA. She was treated with Doxycycline and Augmentin. Wound culture obtained 08/18/23 which was positive for Proteus mirabilis, Enterococcus faecalis and Corynebacterium striatum. She completed the Augmentin. Wound culture obtained 04/19/24 which was positive for MRSA. She was started on Doxycycline. She was in [facility] for a week at the end of February 2023 for subcutaneous air around her wound. She states she cultured positive for MRSA and they had her on IV antibiotics. They used a wound VAC while she was in the hospital. She was placed on Doxycycline and has finished them. Wound Care - Thera-Skin 9 applications. Surgery 02/14/[address] Welsh for Pilonidal cystectomy. Today she denies fever, chills, nausea or vomiting. Progress of Wound: Pilonidal remains healed today. Her left leg ulcer is smaller this week. Brenna wound is clear. Clinically no sign of infection. She has completed her antibiotics. Objective Data Objective Data Vital Signs: Vital Signs Temp Pulse Resp BP O2 Del Method 96.2 F L 86 18 108/67 Room Air 05/17/24 15:43 05/24/24 15:49 05/24/24 15:49 05/24/24 15:49 05/24/24 15:49 Oxygen Delivery Method Room Air Weight: 276 lb Body Mass Index (BMI) 48.9 Charges/Coding Procedures Integumentary 111xxx-113xx: 48232 Stephany subq tissue 20 sq cm/< Debridement Note Debridement Note Wound debrided: Left lateral leg ulcer Laterality: Left Wound Grade/Stage: Stage III Type of Debridement: Excisional debridement Anesthesia Used: 4% Lidocaine Solution and 5% Lidocaine Gel Depth: Down to and including healthy tissue and in the subcutaneous layer Percentage of wound debrided: 100 Instrument Used: 5mm curette Tissue Removed: Non viable tissue and slough Severity: Fat Layer Exposed Amount of bleeding with debridement: Mild Bleeding Controlled with: Pressure and Compression and gauze Patient tolerated procedure: Patient tolerated procedure well Post-Debridement Measurements and Additional Note: Post-Debridement Measurements/Treatment - Nurse 1 - General Ulcer Assessment Start: 05/17/24 15:43 Freq: Status: Active Protocol: BOBO Activity Type Activity Date Activity User E-sign Co-sign Detail Recorded Client Recorded Date Recorded By Document 05/17/24 15:43 DL [id number] 05/17/24 15:50 DL Document 05/24/24 15:49 MT [id number] 05/24/24 15:54 MT 05/17/24 05/24/24 15:43 15:49 - Today's Visit Information Type of service Follow-up Visit Follow-up Visit (Physician/GAMMA OPERATOR (Physician/GAMMA OPERATOR ) ) Arrival Mode Ambulatory Ambulatory Transfer Assistance None Accompanied by MICHAEL TORRES Patient Identification Verified (Name & Yes Yes ) Patient Requires Transmission-Based No Precautions Height and Weight Body Mass Index (BMI) 48.9 48.9 BMI Classification Obese Obese Vital Signs Temperature (97.8 F-99.1 F) 96.2 F L Temperature Source Temporal Pulse Rate (60-100) 82 86 Pulse Location Monitor Monitor Respiratory Rate (12-18) 18 18 Respiratory rate source Observation Observation Oxygen Delivery Method Room Air Blood Pressure (90/60-120/80) 123/76 H 108/67 Blood Pressure Mean (mm Hg) 91 80 Source Monitor Monitor Position Sitting Blood Pressure Location Right Forearm History Since Last Visit- (Skip if this is Patient's initial visit) Have you changed medications since your No last visit? Any new allergies or adverse reactions No Had a fall/change in ADL's that may No increase risk of falls Signs or symptoms of abuse and/or No neglect since last visit Have you been in the hospital since your No last visit? Has dressing in place as prescribed Yes Yes Has compression in place as prescribed Yes Yes Has offloadiing in place as prescribed Yes Yes Experienced any changes in pain level or No Yes management Left Footwear Regular Shoe Right Footwear Regular Shoe Pain Scale: 0-10 Numeric Is Patient Pain Free? Yes Yes WC - Nurse 1 - General Ulcer Measurement Start: 05/17/24 15:43 Freq: Status: Active Protocol: Activity Type Activity Date Activity User E-sign Co-sign Detail Recorded Client Recorded Date Recorded By Document 05/17/24 15:43 DL [id number] 05/17/24 15:50 DL Document 05/24/24 15:49 MT [id number] 05/24/24 15:54 MT 05/17/24 05/24/24 15:43 15:49 Wound Center Nurse 1 9-sacrum -Current Size (cm) - Length 0 -Current Size (cm) - Width 0 -Current Size (cm) - Depth 0 -Total Square Cm 0 -Photo Taken Yes -Exudate Amt None Present -Wound Margin Flat & Intact -Granulation Amt Large (67-100%) -Granulation Quality [place],Red -Necrosis Amt None Present (0 %) -Structure Exposed N/A -Texture (Brenna-wound Skin Appearance) Scarring -Moisture (Brenna-wound Skin Appearance) No Abnormality -Color (Brenna-wound Skin Appearance) No Abnormality -Temperature (Brenna-wound Skin No Abnormality Appearance) (Pt Warm) -Tenderness on Palpation (Brenna-wound No Skin Appearance) -Ulcer Cleansing Rinsed/ Irrigated with Saline -Foul Odor after Cleansing No #10 LLE Med -Combined with other wound No -Current Size (cm) - Length 1.6 2 -Current Size (cm) - Width 2 1.5 -Current Size (cm) - Depth 0.1 0.1 -Total Square Cm 3.2 3.0 -Photo Taken Yes No -Tunneling No -Undermining/Tunneling No -Circular Undermining No -Exudate Amt Medium Small -Exudate Type Serosanguineous Serosanguineous -Wound Margin Distinct, Thickened & Outline Rolled Under Attached -Granulation Amt Medium (34-66%) Large (67-100%) -Granulation Quality [place] Pale,Pacific -Necrosis Amt Medium (34-66%) Small (1-33%) -Necrotic Tissue Type Adherent Slough Adherent Slough -Structure Exposed N/A -Texture (Brenna-wound Skin Appearance) Scarring Assessed -Moisture (Brenna-wound Skin Appearance) No Abnormality Assessed -Color (Brenna-wound Skin Appearance) No Abnormality Assessed -Temperature (Brenna-wound Skin No Abnormality No Abnormality Appearance) (Pt Warm) (Pt Warm) -Tenderness on Palpation (Brenna-wound No No Skin Appearance) -Ulcer Cleansing Soap and Water Soap and Water -Foul Odor after Cleansing No No -Anesthetic Used 5% Lidocaine 5% Lidocaine Gel Gel WC - Nurse 2 - General Ulcer CM Notes Start: 05/17/24 15:43 Freq: Status: Active Protocol: Activity Type Activity Date Activity User E-sign Co-sign Detail Recorded Client Recorded Date Recorded By Document 05/17/24 16:05 [id number] 05/17/24 16:13 Document 05/24/24 16:07 [id number] 05/24/24 16:11 05/17/24 05/24/24 16:05 16:07 Wound Center Nurse 2 9-sacrum -Time 16:05 -Correct Patient Yes -Correct Side, Site, Position Yes -Wound/Ulcer Outcome Healed- Epithelialized #10 LLE Med -Time 16:05 16:08 -Correct Patient Yes Yes -Correct Side, Site, Position Yes Yes -Correct Procedure Yes Yes -Procedure Performed Yes Yes -Type of Procedure Debridement Debridement -Clinical Debridement Subcutaneous Subcutaneous -Tissue Removed Subcutaneous Subcutaneous -Post Debridement (cm) - Length 2.2 2.2 -Post Debridement (cm) - Width 2.0 1.6 -Post Debridement (cm) - Depth 0.1 0.1 -Total Square (Post) (cm) 4.40 3.52 -Area of Debridement (cm) - Length 2.2 2.2 -Area of Debridement (cm) - Width 2.0 1.6 -Total Square (Area) (cm) 4.40 3.52 -Tunneling No No -Undermining/Tunneling No No -Circular Undermining No No -Wound/Ulcer Outcome Not Healed Not Healed -Ulcer Cleansing Rinsed/ Not Cleansed Irrigated with Saline -Foul Odor after Cleansing No No -Bioengineered Tissue No No -Bleeding Controlled with Pressure Pressure -Treatment Response Procedure Procedure Tolerated Well Tolerated Well -Debridement - Subq, 1st 20sq cm Yes Yes Pain Scale: 0-10 Numeric Is Patient Pain Free? Yes Yes - Nurse 3 - General Ulcer D/C NN Start: 05/17/24 15:43 Freq: Status: Active Protocol: Activity Type Activity Date Activity User E-sign Co-sign Detail Recorded Client Recorded Date Recorded By Document 05/17/24 16:22 DL [id number] 05/17/24 16:23 DL Document 05/24/24 16:18 [id number] 05/24/24 16:19 05/17/24 05/24/24 16:22 16:18 Wound Care Center Nurse 3 #10 LLE Med -Ulcer Cleansing Rinsed/ Not Cleansed Irrigated with Saline -Foul Odor after Cleansing No No -Primary Dressing Applied Mepilex Border, Mepilex Border, Promogran Promogran Belle Matter Belle Matter -Mepilex Border 1 1 -Promogran Belle Matter 1 1 Left -Stockings Yes Treatment Response Procedure Tolerated Well Pain Scale: 0-10 Numeric Is Patient Pain Free? Yes Yes - Visit Discharge Discharge Condition Stable Stable Ambulatory Status Ambulatory Ambulatory Transportation Private Auto Private Auto Assessment/Plan Assessment/Plan (1) Ulcer of left lower extremity with muscle involvement without evidence of necrosis: CODE(S): L97.925 - Non-pressure chronic ulcer of unspecified part of left lower leg with muscle involvement without evidence of necrosis (2) History of necrotizing fasciitis: CODE(S): Z87.39 - Personal history of other diseases of the musculoskeletal system and connective tissue (3) Borderline personality disorder: CODE(S): F60.3 - Borderline personality disorder PLAN: Plan Patient was evaluated at the wound healing center today. Pilonidal wound remains healed. Wound care - Belle the left lateral leg ulcer place Belle covered with [place] SAP/silicone border/ABD dressing daily. She is to wash the area with soap and water at the time of the dressing changes. Compression - She is wearing compression stockings bilaterally. Encourage nutritional supplementation with protein to help the healing process. A wound culture was obtained 04/19/24 and was positive for MRSA. She completed her Doxycycline. Follow up 1 week.
[2024-05-31 15:24] VITALS: BP 123/82; PULSE 72; RESP 16; TEMP 35.6; BMI 48.9
--- NOTE | 2024-05-31 17:23 | PN.PCM_ITS ---
History of Present Illness Date of Service: 05/31/24 Chief Complaint: non-healing ulcer left medial leg History of Wound: Patient is a 23 year old female who presents to the wound healing center for evaluation and treatment of a nonhealing ulcer left medial leg. Patient is a poor historian. Reviewed notes from [facility] [place], she had been admitted to [place] around 11/27/22 for cellulitis and worsening infection of her left lower leg. She ended having an I&D of her left medial leg, left lateral leg and left lateral thigh. She was diagnosed with necrotizing fasciitis. Her wound cultures were positive for Enterococcus and steno. Mycoplasma IGG and IgM (+). She was sent to [facility] on 2 weeks dapto, arthur, clinda, levaquin, and micafungin. Changed Dap to to Vanc. On 12/12 stopped vanc/levaquin/arthur and started IV fluc due to diagnosis of candidemia. She was discharged home from [facility] around the second week of December. She has a history of significant for depression, personality disorder, self harm, anxiety, asthma, recurrent cellulitis and ADHD and most recently Afib and tachycardia. She states that she did not cause these wounds and did not do anything to them to make them worse. She has a history of being accused of tampering with wounds. Surgery 04/07/23 - Surgical preparation left medial leg with incision and drainage and excisional debridement nonhealing infected MRSA ulcer, (126 cm2). Operative culture were negative but she was on Vancomycin and Fluconazole for positive cultures from 04/05/23 which were positive for MRSE and Staphylococcus haemolyticus. Wound culture obtained on 12/29/22 which was positive for Enterococcus faecalis, Corynebacterium amycolatum, and MRSE. She was treated with Augmentin and Doxycycline. Wound culture obtained 01/28/23 which was positive for Enterococcus faecalis and Corynebacterium striatum. She was started on Augmentin. Wound culture obtained 07/07/23 which was positive for Proteus mirabilis and MRSA. She was treated with Doxycycline and Augmentin. Wound culture obtained 08/18/23 which was positive for Proteus mirabilis, Enterococcus faecalis and Corynebacterium striatum. She completed the Augmentin. Wound culture obtained 04/19/24 which was positive for MRSA. She was started on Doxycycline. She was in [facility] for a week at the end of February 2023 for subcutaneous air around her wound. She states she cultured positive for MRSA and they had her on IV antibiotics. They used a wound VAC while she was in the hospital. She was placed on Doxycycline and has finished them. Wound Care - Thera-Skin 9 applications. Surgery 02/14/[address] Welsh for Pilonidal cystectomy. Today she denies fever, chills, nausea or vomiting. Progress of Wound: Her left leg ulcer is stable. Brenna wound is clear. Clinically no sign of infection. She has been wearing her compression. Edema is +1-+2 lower leg. Objective Data Objective Data Vital Signs: Vital Signs Temp Pulse Resp BP O2 Del Method 96.1 F L 72 16 123/82 H Room Air 05/31/24 15:24 05/31/24 15:24 05/31/24 15:24 05/31/24 15:24 05/31/24 15:24 Oxygen Delivery Method Room Air Weight: 276 lb Body Mass Index (BMI) 48.9 Charges/Coding Procedures Integumentary 111xxx-113xx: 18088 Stephany subq tissue 20 sq cm/< Debridement Note Debridement Note Wound debrided: Left lateral leg ulcer Laterality: Left Wound Grade/Stage: Stage III Type of Debridement: Excisional debridement Anesthesia Used: 4% Lidocaine Solution and 5% Lidocaine Gel Depth: Down to and including healthy tissue and in the subcutaneous layer Percentage of wound debrided: 100 Instrument Used: 5mm curette Tissue Removed: Non viable tissue and slough Severity: Fat Layer Exposed Amount of bleeding with debridement: Mild Bleeding Controlled with: Pressure and Compression and gauze Patient tolerated procedure: Patient tolerated procedure well Post-Debridement Measurements and Additional Note: Post-Debridement Measurements/Treatment STALIN - Nurse 1 - General Ulcer Assessment Start: 05/17/24 15:43 Freq: Status: Active Protocol: BOBO Activity Type Activity Date Activity User E-sign Co-sign Detail Recorded Client Recorded Date Recorded By Document 05/17/24 15:43 DL [id number] 05/17/24 15:50 DL Document 05/24/24 15:49 MT [id number] 05/24/24 15:54 MT Document 05/31/24 15:24 BMF [id number] 05/31/24 15:30 BMF 10/05/0205/24/24 05/31/24 15:43 15:49 15:24 WC - Today's Visit Information Type of service Follow-up Visit Follow-up Visit Follow-up Visit (Physician/ECONOMIST RESEARCH ASSISTANT (Physician/ECONOMIST RESEARCH ASSISTANT (Physician/ECONOMIST RESEARCH ASSISTANT ) ) ) Arrival Mode Ambulatory Ambulatory Ambulatory Transfer Assistance None None Accompanied by MICHAEL TORRES Patient Identification Verified (Name & Yes Yes Yes ) Patient Requires Transmission-Based No No Precautions Height and Weight Body Mass Index (BMI) 48.9 48.9 48.9 BMI Classification Obese Obese Obese Vital Signs Temperature (97.8 F-99.1 F) 96.2 F L 96.1 F L Temperature Source Temporal Temporal Pulse Rate (60-100) 82 86 72 Pulse Location Monitor Monitor Monitor Respiratory Rate (12-18) 18 18 16 Respiratory rate source Observation Observation Observation Oxygen Delivery Method Room Air Room Air Blood Pressure (90/60-120/80) 123/76 H 108/67 123/82 H Blood Pressure Mean (mm Hg) 91 80 95 Source Monitor Monitor Monitor Position Sitting Sitting Blood Pressure Location Right Forearm Left Forearm History Since Last Visit- (Skip if this is Patient's initial visit) Have you changed medications since your No No last visit? Any new allergies or adverse reactions No No Had a fall/change in ADL's that may No No increase risk of falls Signs or symptoms of abuse and/or No No neglect since last visit Have you been in the hospital since your No No last visit? Has dressing in place as prescribed Yes Yes Yes Has compression in place as prescribed Yes Yes Yes Has offloadiing in place as prescribed Yes Yes N/A Experienced any changes in pain level or No Yes No management Left Footwear Regular Shoe Regular Shoe Right Footwear Regular Shoe Regular Shoe Pain Scale: 0-10 Numeric Is Patient Pain Free? Yes Yes Yes - Nurse 1 - General Ulcer Measurement Start: 05/17/24 15:43 Freq: Status: Active Protocol: Activity Type Activity Date Activity User E-sign Co-sign Detail Recorded Client Recorded Date Recorded By Document 05/17/24 15:43 DL [id number] 05/17/24 15:50 DL Document 05/24/24 15:49 MT [id number] 05/24/24 15:54 MT Document 05/31/24 15:24 BMF [id number] 05/31/24 15:30 BMF 05/17/24 05/24/24 05/31/24 15:43 15:49 15:24 Wound Center Nurse 1 9-sacrum -Current Size (cm) - Length 0 -Current Size (cm) - Width 0 -Current Size (cm) - Depth 0 -Total Square Cm 0 -Photo Taken Yes -Exudate Amt None Present -Wound Margin Flat & Intact -Granulation Amt Large (67-100%) -Granulation Quality Bode,Red -Necrosis Amt None Present (0 %) -Structure Exposed N/A -Texture (Brenna-wound Skin Appearance) Scarring -Moisture (Brenna-wound Skin Appearance) No Abnormality -Color (Brenna-wound Skin Appearance) No Abnormality -Temperature (Brenna-wound Skin No Abnormality Appearance) (Pt Warm) -Tenderness on Palpation (Brenna-wound No Skin Appearance) -Ulcer Cleansing Rinsed/ Irrigated with Saline -Foul Odor after Cleansing No #10 LLE Med -Combined with other wound No No -Current Size (cm) - Length 1.6 2 2 -Current Size (cm) - Width 2 1.5 1.6 -Current Size (cm) - Depth 0.1 0.1 0.1 -Total Square Cm 3.2 3.0 3.2 -Photo Taken Yes No -Epithelialization Small 1-33% -Tunneling No No -Undermining/Tunneling No No -Circular Undermining No No -Exudate Amt Medium Small Medium -Exudate Type Serosanguineous Serosanguineous Serosanguineous -Wound Margin Distinct, Thickened & Distinct, Outline Rolled Under Outline Attached Attached -Granulation Amt Medium (34-66%) Large (67-100%) Medium (34-66%) -Granulation Quality Bode Pale,Bode Pale,Bode -Slough/Fibrin Yes -Necrosis Amt Medium (34-66%) Small (1-33%) Medium (34-66%) -Necrotic Tissue Type Adherent Slough Adherent Slough Adherent Slough -Structure Exposed N/A -Texture (Brenna-wound Skin Appearance) Scarring Assessed Assessed -Moisture (Brenna-wound Skin Appearance) No Abnormality Assessed Assessed,Dry/ Scaly -Color (Brenna-wound Skin Appearance) No Abnormality Assessed Assessed -Temperature (Brenna-wound Skin No Abnormality No Abnormality No Abnormality Appearance) (Pt Warm) (Pt Warm) (Pt Warm) -Tenderness on Palpation (Brenna-wound No No No Skin Appearance) -Ulcer Cleansing Soap and Water Soap and Water Rinsed/ Irrigated with Saline -Foul Odor after Cleansing No No No -Anesthetic Used 5% Lidocaine 5% Lidocaine 5% Lidocaine Gel Gel Gel Lower Limb Edema Present Yes Left Calf (cm) 45.3 Left Ankle (cm) 29.8 WC - Nurse 2 - General Ulcer CM Notes Start: 05/17/24 15:43 Freq: Status: Active Protocol: Activity Type Activity Date Activity User E-sign Co-sign Detail Recorded Client Recorded Date Recorded By Document 05/17/24 16:05 [id number] 05/17/24 16:13 GM Document 05/24/24 16:07 [id number] 05/24/24 16:11 GM Document 05/31/24 16:25 [id number] 05/31/24 16:29 05/17/24 05/24/24 05/31/24 16:05 16:07 16:25 Wound Center Nurse 2 9-sacrum -Time 16:05 -Correct Patient Yes -Correct Side, Site, Position Yes -Wound/Ulcer Outcome Healed- Epithelialized #10 LLE Med -Time 16:05 16:08 16:25 -Correct Patient Yes Yes Yes -Correct Side, Site, Position Yes Yes Yes -Correct Procedure Yes Yes Yes -Procedure Performed Yes Yes Yes -Type of Procedure Debridement Debridement Debridement -Clinical Debridement Subcutaneous Subcutaneous Subcutaneous -Tissue Removed Subcutaneous Subcutaneous Subcutaneous -Post Debridement (cm) - Length 2.2 2.2 2.0 -Post Debridement (cm) - Width 2.0 1.6 2.0 -Post Debridement (cm) - Depth 0.1 0.1 0.1 -Total Square (Post) (cm) 4.40 3.52 4.00 -Area of Debridement (cm) - Length 2.2 2.2 2.0 -Area of Debridement (cm) - Width 2.0 1.6 2.0 -Total Square (Area) (cm) 4.40 3.52 4.00 -Tunneling No No No -Undermining/Tunneling No No No -Circular Undermining No No No -Wound/Ulcer Outcome Not Healed Not Healed Not Healed -Ulcer Cleansing Rinsed/ Not Cleansed Rinsed/ Irrigated with Irrigated with Saline Saline -Foul Odor after Cleansing No No No -Bioengineered Tissue No No No -Bleeding Controlled with Pressure Pressure Pressure -Treatment Response Procedure Procedure Procedure Tolerated Well Tolerated Well Tolerated Well -Debridement - Subq, 1st 20sq cm Yes Yes Yes Pain Scale: 0-10 Numeric Is Patient Pain Free? Yes Yes Yes - Nurse 3 - General Ulcer D/C NN Start: 05/17/24 15:43 Freq: Status: Active Protocol: Activity Type Activity Date Activity User E-sign Co-sign Detail Recorded Client Recorded Date Recorded By Document 05/17/24 16:22 DL [id number] 05/17/24 16:23 DL Document 05/24/24 16:18 GM [id number] 05/24/24 16:19 GM Document 05/31/24 16:33 KW [id number] 05/31/24 16:34 KW 05/17/24 05/24/24 05/31/24 16:22 16:18 16:33 Wound Care Center Nurse 3 #10 LLE Med -Ulcer Cleansing Rinsed/ Not Cleansed Irrigated with Saline -Foul Odor after Cleansing No No -Primary Dressing Applied Mepilex Border, Mepilex Border, Mepilex Border, Promogran Promogran Promogran Belle Matter Belle Matter Belle Matter -Mepilex Border 1 1 1 -Promogran Belle Matter 1 1 1 Left -Stockings Yes Treatment Response Procedure Tolerated Well Pain Scale: 0-10 Numeric Is Patient Pain Free? Yes Yes Yes - Visit Discharge Discharge Condition Stable Stable Ambulatory Status Ambulatory Ambulatory Transportation Private Auto Private Auto Assessment/Plan Assessment/Plan (1) Ulcer of left lower extremity with muscle involvement without evidence of necrosis: CODE(S): L97.925 - Non-pressure chronic ulcer of unspecified part of left lower leg with muscle involvement without evidence of necrosis (2) History of necrotizing fasciitis: CODE(S): Z87.39 - Personal history of other diseases of the musculoskeletal system and connective tissue (3) Borderline personality disorder: CODE(S): F60.3 - Borderline personality disorder PLAN: Plan Patient was evaluated at the wound healing center today. Pilonidal wound remains healed. Wound care - Moistened Belle to the left lateral leg ulcer covered with [place] SAP/silicone border/ABD dressing daily. She is to wash the area with soap and water at the time of the dressing changes. Compression - She is wearing compression stockings bilaterally. Encourage nutritional supplementation with protein to help the healing process. A wound culture was obtained 04/19/24 and was positive for MRSA. She completed her Doxycycline. Follow up 1 week.
[2024-06-07 15:36] VITALS: BP 113/69; PULSE 80; RESP 18; TEMP 35.8; BMI 48.9
--- NOTE | 2024-06-07 16:37 | PCM.WC.PN ---
History of Present Illness Date of Service: 06/07/24 Chief Complaint: non-healing ulcer left medial leg History of Wound: Patient is a 23 year old female who presents to the wound healing center for evaluation and treatment of a nonhealing ulcer left medial leg. Patient is a poor historian. Reviewed notes from [facility], she had been admitted to [place] around 11/27/22 for cellulitis and worsening infection of her left lower leg. She ended having an I&D of her left medial leg, left lateral leg and left lateral thigh. She was diagnosed with necrotizing fasciitis. Her wound cultures were positive for Enterococcus and steno. Mycoplasma IGG and IgM (+). She was sent to [facility] on 2 weeks dapto, arthur, clinda, levaquin, and micafungin. Changed Dap to to Vanc. On 12/12 stopped vanc/levaquin/arthur and started IV fluc due to diagnosis of candidemia. She was discharged home from [facility] around the second week of December. She has a history of significant for depression, personality disorder, self harm, anxiety, asthma, recurrent cellulitis and ADHD and most recently Afib and tachycardia. She states that she did not cause these wounds and did not do anything to them to make them worse. She has a history of being accused of tampering with wounds. Surgery 04/07/23 - Surgical preparation left medial leg with incision and drainage and excisional debridement nonhealing infected MRSA ulcer, (126 cm2). Operative culture were negative but she was on Vancomycin and Fluconazole for positive cultures from 04/05/23 which were positive for MRSE and Staphylococcus haemolyticus. Wound culture obtained on 12/29/22 which was positive for Enterococcus faecalis, Corynebacterium amycolatum, and MRSE. She was treated with Augmentin and Doxycycline. Wound culture obtained 01/28/23 which was positive for Enterococcus faecalis and Corynebacterium striatum. She was started on Augmentin. Wound culture obtained 07/07/23 which was positive for Proteus mirabilis and MRSA. She was treated with Doxycycline and Augmentin. Wound culture obtained 08/18/23 which was positive for Proteus mirabilis, Enterococcus faecalis and Corynebacterium striatum. She completed the Augmentin. Wound culture obtained 04/19/24 which was positive for MRSA. She was started on Doxycycline. She was in [facility] for a week at the end of February 2023 for subcutaneous air around her wound. She states she cultured positive for MRSA and they had her on IV antibiotics. They used a wound VAC while she was in the hospital. She was placed on Doxycycline and has finished them. Wound Care - Thera-Skin 9 applications. Surgery 02/14/[address] Welsh for Pilonidal cystectomy. Today she denies fever, chills, nausea or vomiting. Progress of Wound: Her left leg ulcer is smaller. Brenna wound is clear. Clinically no sign of infection. She has been wearing her compression. Edema is +1 lower leg. She is doing well. Objective Data Objective Data Vital Signs: Vital Signs Temp Pulse Resp BP O2 Del Method 96.5 F L 80 18 113/69 Room Air 06/07/24 15:36 06/07/24 15:36 06/07/24 15:36 06/07/24 15:36 05/31/24 15:24 Oxygen Delivery Method Room Air Weight: 276 lb Body Mass Index (BMI) 48.9 Charges/Coding Procedures Integumentary 111xxx-113xx: [id number] Stephany subq tissue 20 sq cm/< Debridement Note Debridement Note Wound debrided: Left lateral leg ulcer Laterality: Left Wound Grade/Stage: Stage III Type of Debridement: Excisional debridement Anesthesia Used: 4% Lidocaine Solution and 5% Lidocaine Gel Depth: Down to and including healthy tissue and in the subcutaneous layer Percentage of wound debrided: 100 Instrument Used: 3mm curette Tissue Removed: Non viable tissue and slough Severity: Fat Layer Exposed Amount of bleeding with debridement: Mild Bleeding Controlled with: Pressure and Compression and gauze Patient tolerated procedure: Patient tolerated procedure well Post-Debridement Measurements and Additional Note: Post-Debridement Measurements/Treatment WC - Nurse 1 - General Ulcer Assessment Start: 05/17/24 15:43 Freq: Status: Active Protocol: BOBO Activity Type Activity Date Activity User E-sign Co-sign Detail Recorded Client Recorded Date Recorded By Document 05/17/24 15:43 DL [id number] 05/17/24 15:50 DL Document 05/24/24 15:49 MT [id number] 05/24/24 15:54 MT Document 05/31/24 15:24 BMF [id number] 05/31/24 15:30 BMF Document 06/07/24 15:36 DL [id number] 06/07/24 15:40 DL 05/17/24 05/24/24 05/31/24 15:43 15:49 15:24 - Today's Visit Information Type of service Follow-up Visit Follow-up Visit Follow-up Visit (Physician/VEGETABLE TRIMMER (Physician/VEGETABLE TRIMMER (Physician/VEGETABLE TRIMMER ) ) ) Arrival Mode Ambulatory Ambulatory Ambulatory Transfer Assistance None None Accompanied by MICHAEL BRIAN Patient Identification Verified (Name & Yes Yes Yes ) Patient Requires Transmission-Based No No Precautions Height and Weight Body Mass Index (BMI) 48.9 48.9 48.9 BMI Classification Obese Obese Obese Vital Signs Temperature (97.8 F-99.1 F) 96.2 F L 96.1 F L Temperature Source Temporal Temporal Pulse Rate (60-100) 82 86 72 Pulse Location Monitor Monitor Monitor Respiratory Rate (12-18) 18 18 16 Respiratory rate source Observation Observation Observation Oxygen Delivery Method Room Air Room Air Blood Pressure (90/60-120/80) 123/76 H 108/67 123/82 H Blood Pressure Mean (mm Hg) 91 80 95 Source Monitor Monitor Monitor Position Sitting Sitting Blood Pressure Location Right Forearm Left Forearm History Since Last Visit- (Skip if this is Patient's initial visit) Have you changed medications since your No No last visit? Any new allergies or adverse reactions No No Had a fall/change in ADL's that may No No increase risk of falls Signs or symptoms of abuse and/or No No neglect since last visit Have you been in the hospital since your No No last visit? Has dressing in place as prescribed Yes Yes Yes Has compression in place as prescribed Yes Yes Yes Has offloadiing in place as prescribed Yes Yes N/A Experienced any changes in pain level or No Yes No management Left Footwear Regular Shoe Regular Shoe Right Footwear Regular Shoe Regular Shoe Pain Scale: 0-10 Numeric Is Patient Pain Free? Yes Yes Yes 06/07/24 15:36 WC - Today's Visit Information Type of service Follow-up Visit (Physician/VEGETABLE TRIMMER ) Arrival Mode Ambulatory Transfer Assistance None Accompanied by Patient Identification Verified (Name & Yes ) Patient Requires Transmission-Based No Precautions Height and Weight Body Mass Index (BMI) 48.9 BMI Classification Obese Vital Signs Temperature (97.8 F-99.1 F) 96.5 F L Temperature Source Temporal Pulse Rate (60-100) 80 Pulse Location Monitor Respiratory Rate (12-18) 18 Respiratory rate source Observation Oxygen Delivery Method Blood Pressure (90/60-120/80) 113/69 Blood Pressure Mean (mm Hg) 83 Source Monitor Position Blood Pressure Location History Since Last Visit- (Skip if this is Patient's initial visit) Have you changed medications since your No last visit? Any new allergies or adverse reactions No Had a fall/change in ADL's that may No increase risk of falls Signs or symptoms of abuse and/or No neglect since last visit Have you been in the hospital since your No last visit? Has dressing in place as prescribed Yes Has compression in place as prescribed Yes Has offloadiing in place as prescribed N/A Experienced any changes in pain level or No management Left Footwear Right Footwear Pain Scale: 0-10 Numeric Is Patient Pain Free? Yes WC - Nurse 1 - General Ulcer Measurement Start: 05/17/24 15:43 Freq: Status: Active Protocol: Activity Type Activity Date Activity User E-sign Co-sign Detail Recorded Client Recorded Date Recorded By Document 05/17/24 15:43 DL [id number] 05/17/24 15:50 DL Document 05/24/24 15:49 MT [id number] 05/24/24 15:54 MT Document 05/31/24 15:24 BM [id number] 05/31/24 15:30 BMF Document 06/07/24 15:36 DL [id number] 06/07/24 15:40 DL 05/17/24 05/24/24 05/31/24 15:43 15:49 15:24 Wound Center Nurse 1 9-sacrum -Current Size (cm) - Length 0 -Current Size (cm) - Width 0 -Current Size (cm) - Depth 0 -Total Square Cm 0 -Photo Taken Yes -Exudate Amt None Present -Wound Margin Flat & Intact -Granulation Amt Large (67-100%) -Granulation Quality [place],Red -Necrosis Amt None Present (0 %) -Structure Exposed N/A -Texture (Brenna-wound Skin Appearance) Scarring -Moisture (Brenna-wound Skin Appearance) No Abnormality -Color (Brenna-wound Skin Appearance) No Abnormality -Temperature (Brenna-wound Skin No Abnormality Appearance) (Pt Warm) -Tenderness on Palpation (Brenna-wound No Skin Appearance) -Ulcer Cleansing Rinsed/ Irrigated with Saline -Foul Odor after Cleansing No #10 LLE Med -Combined with other wound No No -Current Size (cm) - Length 1.6 2 2 -Current Size (cm) - Width 2 1.5 1.6 -Current Size (cm) - Depth 0.1 0.1 0.1 -Total Square Cm 3.2 3.0 3.2 -Photo Taken Yes No -Epithelialization Small 1-33% -Tunneling No No -Undermining/Tunneling No No -Circular Undermining No No -Exudate Amt Medium Small Medium -Exudate Type Serosanguineous Serosanguineous Serosanguineous -Wound Margin Distinct, Thickened & Distinct, Outline Rolled Under Outline Attached Attached -Granulation Amt Medium (34-66%) Large (67-100%) Medium (34-66%) -Granulation Quality Dubois Pale,Dubois Pale,Dubois -Slough/Fibrin Yes -Necrosis Amt Medium (34-66%) Small (1-33%) Medium (34-66%) -Necrotic Tissue Type Adherent Slough Adherent Slough Adherent Slough -Structure Exposed N/A -Texture (Brenna-wound Skin Appearance) Scarring Assessed Assessed -Moisture (Brenna-wound Skin Appearance) No Abnormality Assessed Assessed,Dry/ Scaly -Color (Brenna-wound Skin Appearance) No Abnormality Assessed Assessed -Temperature (Brenna-wound Skin No Abnormality No Abnormality No Abnormality Appearance) (Pt Warm) (Pt Warm) (Pt Warm) -Tenderness on Palpation (Brenna-wound No No No Skin Appearance) -Ulcer Cleansing Soap and Water Soap and Water Rinsed/ Irrigated with Saline -Foul Odor after Cleansing No No No -Anesthetic Used 5% Lidocaine 5% Lidocaine 5% Lidocaine Gel Gel Gel Lower Limb Edema Present Yes Left Calf (cm) 45.3 Left Ankle (cm) 29.8 06/07/24 15:36 Wound Center Nurse 1 9-sacrum -Current Size (cm) - Length -Current Size (cm) - Width -Current Size (cm) - Depth -Total Square Cm -Photo Taken -Exudate Amt -Wound Margin -Granulation Amt -Granulation Quality -Necrosis Amt -Structure Exposed -Texture (Brenna-wound Skin Appearance) -Moisture (Brenna-wound Skin Appearance) -Color (Brenna-wound Skin Appearance) -Temperature (Brenna-wound Skin Appearance) -Tenderness on Palpation (Brenna-wound Skin Appearance) -Ulcer Cleansing -Foul Odor after Cleansing #10 LLE Med -Combined with other wound -Current Size (cm) - Length 1.5 -Current Size (cm) - Width 1.6 -Current Size (cm) - Depth 0.1 -Total Square Cm 2.40 -Photo Taken Yes -Epithelialization -Tunneling -Undermining/Tunneling -Circular Undermining -Exudate Amt Medium -Exudate Type Yellow/Green -Wound Margin Distinct, Outline Attached -Granulation Amt Large (67-100%) -Granulation Quality [place],Red -Slough/Fibrin -Necrosis Amt Small (1-33%) -Necrotic Tissue Type Adherent Slough -Structure Exposed N/A -Texture (Brenna-wound Skin Appearance) Scarring -Moisture (Brenna-wound Skin Appearance) No Abnormality -Color (Brenna-wound Skin Appearance) No Abnormality -Temperature (Brenna-wound Skin No Abnormality Appearance) (Pt Warm) -Tenderness on Palpation (Brenna-wound No Skin Appearance) -Ulcer Cleansing Soap and Water -Foul Odor after Cleansing No -Anesthetic Used 5% Lidocaine Gel Lower Limb Edema Present Left Calf (cm) Left Ankle (cm) WC - Nurse 2 - General Ulcer CM Notes Start: 05/17/24 15:43 Freq: Status: Active Protocol: Activity Type Activity Date Activity User E-sign Co-sign Detail Recorded Client Recorded Date Recorded By Document 05/17/24 16:05 [id number] 05/17/24 16:13 Document 05/24/24 16:07 [id number] 05/24/24 16:11 Document 05/31/24 16:25 [id number] 05/31/24 16:29 Document 06/07/24 16:07 [id number] 06/07/24 16:11 05/17/24 05/24/24 05/31/24 16:05 16:07 16:25 Wound Center Nurse 2 9-sacrum -Time 16:05 -Correct Patient Yes -Correct Side, Site, Position Yes -Wound/Ulcer Outcome Healed- Epithelialized #10 LLE Med -Time 16:05 16:08 16:25 -Correct Patient Yes Yes Yes -Correct Side, Site, Position Yes Yes Yes -Correct Procedure Yes Yes Yes -Procedure Performed Yes Yes Yes -Type of Procedure Debridement Debridement Debridement -Clinical Debridement Subcutaneous Subcutaneous Subcutaneous -Tissue Removed Subcutaneous Subcutaneous Subcutaneous -Post Debridement (cm) - Length 2.2 2.2 2.0 -Post Debridement (cm) - Width 2.0 1.6 2.0 -Post Debridement (cm) - Depth 0.1 0.1 0.1 -Total Square (Post) (cm) 4.40 3.52 4.00 -Area of Debridement (cm) - Length 2.2 2.2 2.0 -Area of Debridement (cm) - Width 2.0 1.6 2.0 -Total Square (Area) (cm) 4.40 3.52 4.00 -Tunneling No No No -Undermining/Tunneling No No No -Circular Undermining No No No -Wound/Ulcer Outcome Not Healed Not Healed Not Healed -Ulcer Cleansing Rinsed/ Not Cleansed Rinsed/ Irrigated with Irrigated with Saline Saline -Foul Odor after Cleansing No No No -Bioengineered Tissue No No No -Bleeding Controlled with Pressure Pressure Pressure -Treatment Response Procedure Procedure Procedure Tolerated Well Tolerated Well Tolerated Well -Debridement - Subq, 1st 20sq cm Yes Yes Yes Pain Scale: 0-10 Numeric Is Patient Pain Free? Yes Yes Yes 06/07/24 16:07 Wound Center Nurse 2 9-sacrum -Time -Correct Patient -Correct Side, Site, Position -Wound/Ulcer Outcome #10 LLE Med -Time 16:07 -Correct Patient Yes -Correct Side, Site, Position Yes -Correct Procedure Yes -Procedure Performed Yes -Type of Procedure Debridement -Clinical Debridement Subcutaneous -Tissue Removed Subcutaneous -Post Debridement (cm) - Length 1.8 -Post Debridement (cm) - Width 1.6 -Post Debridement (cm) - Depth 0.1 -Total Square (Post) (cm) 2.88 -Area of Debridement (cm) - Length 1.8 -Area of Debridement (cm) - Width 1.6 -Total Square (Area) (cm) 2.88 -Tunneling No -Undermining/Tunneling No -Circular Undermining No -Wound/Ulcer Outcome Not Healed -Ulcer Cleansing Rinsed/ Irrigated with Saline -Foul Odor after Cleansing No -Bioengineered Tissue No -Bleeding Controlled with Pressure -Treatment Response Procedure Tolerated Well -Debridement - Subq, 1st 20sq cm Yes Pain Scale: 0-10 Numeric Is Patient Pain Free? Yes WC - Nurse 3 - General Ulcer D/C NN Start: 05/17/24 15:43 Freq: Status: Active Protocol: Activity Type Activity Date Activity User E-sign Co-sign Detail Recorded Client Recorded Date Recorded By Document 05/17/24 16:22 DL [id number] 05/17/24 16:23 DL Document 05/24/24 16:18 GM [id number] 05/24/24 16:19 GM Document 05/31/24 16:33 KW [id number] 05/31/24 16:34 KW Document 06/07/24 16:13 KW [id number] 06/07/24 16:14 KW 05/17/24 05/24/24 05/31/24 16:22 16:18 16:33 Wound Care Center Nurse 3 #10 LLE Med -Ulcer Cleansing Rinsed/ Not Cleansed Irrigated with Saline -Foul Odor after Cleansing No No -Primary Dressing Applied Mepilex Border, Mepilex Border, Mepilex Border, Promogran Promogran Promogran Belle Matter Belle Matter Belle Matter -Mepilex Border 1 1 1 -Promogran Belle Matter 1 1 1 Left -Stockings Yes -Other Treatment Response Procedure Tolerated Well Pain Scale: 0-10 Numeric Is Patient Pain Free? Yes Yes Yes WC - Visit Discharge Discharge Condition Stable Stable Ambulatory Status Ambulatory Ambulatory Transportation Private Auto Private Auto 06/07/24 16:13 Wound Care Center Nurse 3 #10 LLE Med -Ulcer Cleansing -Foul Odor after Cleansing -Primary Dressing Applied Mepilex Border, Promogran Belle Matter -Mepilex Border 1 -Promogran Belle Matter 1 Left -Stockings -Other pt own compression stocking Treatment Response Pain Scale: 0-10 Numeric Is Patient Pain Free? Yes WC - Visit Discharge Discharge Condition Ambulatory Status Transportation Assessment/Plan Assessment/Plan (1) Ulcer of left lower extremity with muscle involvement without evidence of necrosis: CODE(S): L97.925 - Non-pressure chronic ulcer of unspecified part of left lower leg with muscle involvement without evidence of necrosis (2) History of necrotizing fasciitis: CODE(S): Z87.39 - Personal history of other diseases of the musculoskeletal system and connective tissue (3) Borderline personality disorder: CODE(S): F60.3 - Borderline personality disorder PLAN: Plan Patient was evaluated at the wound healing center today. Pilonidal wound remains healed. Wound care - Moistened Belle to the left lateral leg ulcer covered with [place] SAP/silicone border/ABD dressing daily. She is to wash the area with soap and water at the time of the dressing changes. Compression - She is wearing compression stockings bilaterally. Encourage nutritional supplementation with protein to help the healing process. A wound culture was obtained 04/19/24 and was positive for MRSA. She completed her Doxycycline. Follow up 2 weeks.
--- NOTE | 2024-06-08 10:23 | WC ---
PHOTO 06/07/24 LEFT MED LEG
== END 2024-06-08 23:59 | disposition home or self-care (01) ==
LOC: WC 15:30
PROVIDERS: PCP Student in an Organized Health Care Education/Training Program; Referring Provider Student in an Organized Health Care Education/Training Program; Visit Provider Nurse Practitioner Family
DX: L97.925 Non-pressure chronic ulcer of unspecified part of left lower leg with muscle involvement without evidence of necrosis (principal); F60.3 Borderline personality disorder; L05.91 Pilonidal cyst without abscess; R60.0 Localized edema; Z86.14 Personal history of Methicillin resistant Staphylococcus aureus infection; Z87.39 Personal history of other diseases of the musculoskeletal system and connective tissue; T81.89XA Other complications of procedures, not elsewhere classified, initial encounter; Z98.890 Other specified postprocedural states
CPT/HCPCS: 11042

== ENCOUNTER 2024-06-21 15:12 | Outpatient (RCR) | payer MEDICAID, SELFPAY ==
[2024-06-09 00:44] VITALS: BP 127/86; PULSE 94; RESP 16; TEMP 35.7; BMI 48.9
[2024-06-21 15:33] VITALS: BP 118/77; PULSE 77; RESP 16; TEMP 36.6; BMI 48.9
--- NOTE | 2024-06-21 16:08 | PN.PCM_ITS ---
History of Present Illness Date of Service: 06/28/24 Chief Complaint: non-healing ulcer left medial leg History of Wound: Patient is a 23 year old female who presents to the wound healing center for evaluation and treatment of a nonhealing ulcer left medial leg. Patient is a poor historian. Reviewed notes from [facility] [place], she had been admitted to [facility] around 11/27/22 for cellulitis and worsening infection of her left lower leg. She ended having an I&D of her left medial leg, left lateral leg and left lateral thigh. She was diagnosed with necrotizing fasciitis. Her wound cultures were positive for Enterococcus and steno. Mycoplasma IGG and IgM (+). She was sent to [facility] on 2 weeks dapto, arthur, clinda, levaquin, and micafungin. Changed Dap to to Vanc. On 12/12 stopped vanc/levaquin/arthur and started IV fluc due to diagnosis of candidemia. She was discharged home from [facility] around the second week of December. She has a history of significant for depression, personality disorder, self harm, anxiety, asthma, recurrent cellulitis and ADHD and most recently Afib and tachycardia. She states that she did not cause these wounds and did not do anything to them to make them worse. She has a history of being accused of tampering with wounds. Surgery 04/07/23 - Surgical preparation left medial leg with incision and drainage and excisional debridement nonhealing infected MRSA ulcer, (126 cm2). Operative culture were negative but she was on Vancomycin and Fluconazole for positive cultures from 04/05/23 which were positive for MRSE and Staphylococcus haemolyticus. Wound culture obtained on 12/29/22 which was positive for Enterococcus faecalis, Corynebacterium amycolatum, and MRSE. She was treated with Augmentin and Doxycycline. Wound culture obtained 01/28/23 which was positive for Enterococcus faecalis and Corynebacterium striatum. She was started on Augmentin. Wound culture obtained 07/07/23 which was positive for Proteus mirabilis and MRSA. She was treated with Doxycycline and Augmentin. Wound culture obtained 08/18/23 which was positive for Proteus mirabilis, Enterococcus faecalis and Corynebacterium striatum. She completed the Augmentin. Wound culture obtained 04/19/24 which was positive for MRSA. She was started on Doxycycline. She was in [facility] for a week at the end of February 2023 for subcutaneous air around her wound. She states she cultured positive for MRSA and they had her on IV antibiotics. They used a wound VAC while she was in the hospital. She was placed on Doxycycline and has finished them. Wound Care - Thera-Skin 9 applications. Surgery 02/14/[address] Welsh for Pilonidal cystectomy. Today she denies fever, chills, nausea or vomiting. Progress of Wound: Her left leg ulcer is smaller. Brenna wound is clear. Clinically no sign of infection. She has been wearing her compression. Edema is +1 lower leg. She is doing well. Objective Data Objective Data Vital Signs: Vital Signs Temp Pulse Resp BP O2 Del Method 98 F 77 16 118/77 Room Air 06/21/24 15:33 06/21/24 15:33 06/21/24 15:33 06/21/24 15:33 06/21/24 15:33 Oxygen Delivery Method Room Air Weight: 276 lb Body Mass Index (BMI) 48.9 Charges/Coding Procedures Integumentary 111xxx-113xx: 20353 Stephany subq tissue 20 sq cm/< Debridement Note Debridement Note Wound debrided: Left lateral leg ulcer Laterality: Left Wound Grade/Stage: Stage III Type of Debridement: Excisional debridement Anesthesia Used: 4% Lidocaine Solution and 5% Lidocaine Gel Depth: Down to and including healthy tissue and in the subcutaneous layer Percentage of wound debrided: 100 Instrument Used: 3mm curette Tissue Removed: Non viable tissue and slough Severity: Fat Layer Exposed Amount of bleeding with debridement: Mild Bleeding Controlled with: Pressure and Compression and gauze Patient tolerated procedure: Patient tolerated procedure well Post-Debridement Measurements and Additional Note: Post-Debridement Measurements/Treatment - Nurse 1 - General Ulcer Assessment Start: 06/21/24 15:31 Freq: Status: Active Protocol: BOBO Activity Type Activity Date Activity User E-sign Co-sign Detail Recorded Client Recorded Date Recorded By Document 06/21/24 15:33 [facility] [id number] 06/21/24 15:37 [facility] 06/21/24 15:33 - Today's Visit Information Type of service Follow-up Visit (Physician/CERTIFIED DRIVER EXAMINER ) Arrival Mode Ambulatory Transfer Assistance None Patient Identification Verified (Name & Yes ) Patient Requires Transmission-Based No Precautions Height and Weight Body Mass Index (BMI) 48.9 BMI Classification Obese Vital Signs Temperature (97.8 F-99.1 F) 98 F Temperature Source Temporal Pulse Rate (60-100) 77 Pulse Location Monitor Respiratory Rate (12-18) 16 Respiratory rate source Observation Oxygen Delivery Method Room Air Blood Pressure (90/60-120/80) 118/77 Blood Pressure Mean (mm Hg) 90 Source Monitor Position Sitting Blood Pressure Location Right Forearm History Since Last Visit- (Skip if this is Patient's initial visit) Have you changed medications since your Yes last visit? Any new allergies or adverse reactions No Had a fall/change in ADL's that may No increase risk of falls Signs or symptoms of abuse and/or No neglect since last visit Have you been in the hospital since your No last visit? Has dressing in place as prescribed Yes Has compression in place as prescribed Yes Has offloadiing in place as prescribed N/A Experienced any changes in pain level or No management Left Footwear Regular Shoe Right Footwear Regular Shoe Pain Scale: 0-10 Numeric Is Patient Pain Free? Yes WC - Nurse 1 - General Ulcer Measurement Start: 06/21/24 15:31 Freq: Status: Active Protocol: Activity Type Activity Date Activity User E-sign Co-sign Detail Recorded Client Recorded Date Recorded By Document 06/21/24 15:33 [facility] [id number] 06/21/24 15:37 [facility] 06/21/24 15:33 Wound Center Nurse 1 #10 LLE Med -Combined with other wound No -Current Size (cm) - Length 1.3 -Current Size (cm) - Width 1.4 -Current Size (cm) - Depth 0.2 -Total Square Cm 1.82 -Date of Last Picture (Recall this 06/21/24 field) -Photo Taken Yes -Epithelialization None Present -Tunneling No -Undermining/Tunneling No -Circular Undermining No -Exudate Amt Medium -Exudate Type Purulent -Wound Margin Distinct, Outline Attached -Granulation Amt Medium (34-66%) -Granulation Quality [place] -Slough/Fibrin Yes -Necrosis Amt Medium (34-66%) -Necrotic Tissue Type Adherent Slough -Texture (Brenna-wound Skin Appearance) Assessed -Moisture (Brenna-wound Skin Appearance) Assessed,Dry/ Scaly -Color (Brenna-wound Skin Appearance) Assessed -Temperature (Brenna-wound Skin No Abnormality Appearance) (Pt Warm) -Tenderness on Palpation (Brenna-wound No Skin Appearance) -Ulcer Cleansing Rinsed/ Irrigated with Saline -Foul Odor after Cleansing No -Anesthetic Used 5% Lidocaine Gel - Nurse 2 - General Ulcer CM Notes Start: 06/21/24 15:31 Freq: Status: Active Protocol: Activity Type Activity Date Activity User E-sign Co-sign Detail Recorded Client Recorded Date Recorded By Document 06/21/24 15:48 GM [id number] 06/21/24 15:50 GM 06/21/24 15:48 Wound Center Nurse 2 -Time 15:48 -Correct Patient Yes -Correct Side, Site, Position Yes -Correct Procedure Yes -Procedure Performed Yes -Type of Procedure Debridement -Clinical Debridement Subcutaneous -Tissue Removed Subcutaneous -Post Debridement (cm) - Length 1.3 -Post Debridement (cm) - Width 1.6 -Post Debridement (cm) - Depth 0.2 -Total Square (Post) (cm) 2.08 -Area of Debridement (cm) - Length 1.3 -Area of Debridement (cm) - Width 1.6 -Total Square (Area) (cm) 2.08 -Tunneling No -Undermining/Tunneling No -Circular Undermining No -Wound/Ulcer Outcome Not Healed -Ulcer Cleansing Rinsed/ Irrigated with Saline -Foul Odor after Cleansing No -Bioengineered Tissue No -Bleeding Controlled with Pressure -Treatment Response Procedure Tolerated Well -Debridement - Subq, 1st 20sq cm Yes Pain Scale: 0-10 Numeric Is Patient Pain Free? Yes - Nurse 3 - General Ulcer D/C NN Start: 06/21/24 15:31 Freq: Status: Active Protocol: Activity Type Activity Date Activity User E-sign Co-sign Detail Recorded Client Recorded Date Recorded By Document 06/21/24 15:57 KW [id number] 06/21/24 15:57 KW 06/21/24 15:57 Wound Care Center Nurse 3 #10 LLE Med -Primary Dressing Applied Mepilex Border, Promogran Belle Matter -Mepilex Border 1 -Promogran Belle Matter 1 Pain Scale: 0-10 Numeric Is Patient Pain Free? Yes Assessment/Plan Assessment/Plan (1) Ulcer of left lower extremity with muscle involvement without evidence of necrosis: CODE(S): L97.925 - Non-pressure chronic ulcer of unspecified part of left lower leg with muscle involvement without evidence of necrosis (2) History of necrotizing fasciitis: CODE(S): Z87.39 - Personal history of other diseases of the musculoskeletal system and connective tissue (3) Borderline personality disorder: CODE(S): F60.3 - Borderline personality disorder PLAN: Plan Patient was evaluated at the wound healing center today. Pilonidal wound remains healed. Wound care - Moistened Belle to the left lateral leg ulcer covered with [place] SAP/silicone border/ABD dressing daily. She is to wash the area with soap and water at the time of the dressing changes. Compression - She is wearing compression stockings bilaterally. Encourage nutritional supplementation with protein to help the healing process. A wound culture was obtained 04/19/24 and was positive for MRSA. She completed her Doxycycline. Follow up 2 weeks.
--- NOTE | 2024-06-22 10:10 | WC ---
PHOTO 06/21/24 CY JOYA
== END 2024-07-08 23:59 | disposition home or self-care (01) ==
LOC: WC 15:12
PROVIDERS: PCP Student in an Organized Health Care Education/Training Program; Referring Provider Student in an Organized Health Care Education/Training Program; Visit Provider Nurse Practitioner Family
DX: L97.925 Non-pressure chronic ulcer of unspecified part of left lower leg with muscle involvement without evidence of necrosis (principal); F60.3 Borderline personality disorder; Z86.14 Personal history of Methicillin resistant Staphylococcus aureus infection; R60.0 Localized edema; Z87.39 Personal history of other diseases of the musculoskeletal system and connective tissue
CPT/HCPCS: 11042

== ENCOUNTER 2024-08-07 13:30 | Outpatient (RCR) | payer MEDICAID, SELFPAY ==
[2024-07-09 00:27] VITALS: BP 127/86; PULSE 94; RESP 16; TEMP 35.7; BMI 48.9
[2024-07-12 15:29] VITALS: BP 103/63; PULSE 85; RESP 20; TEMP 36.5; BMI 48.9
--- NOTE | 2024-07-12 17:07 | PCM.WC.PN ---
History of Present Illness Date of Service: 07/12/24 Chief Complaint: non-healing ulcer left medial leg History of Wound: Patient is a 23 year old female who presents to the wound healing center for evaluation and treatment of a nonhealing ulcer left medial leg. Patient is a poor historian. Reviewed notes from [facility], she had been admitted to [facility] around 11/27/22 for cellulitis and worsening infection of her left lower leg. She ended having an I&D of her left medial leg, left lateral leg and left lateral thigh. She was diagnosed with necrotizing fasciitis. Her wound cultures were positive for Enterococcus and steno. Mycoplasma IGG and IgM (+). She was sent to [facility] on 2 weeks dapto, arthur, clinda, levaquin, and micafungin. Changed Dap to to Vanc. On 12/12 stopped vanc/levaquin/arthur and started IV fluc due to diagnosis of candidemia. She was discharged home from [facility] around the second week of December. She has a history of significant for depression, personality disorder, self harm, anxiety, asthma, recurrent cellulitis and ADHD and most recently Afib and tachycardia. She states that she did not cause these wounds and did not do anything to them to make them worse. She has a history of being accused of tampering with wounds. Surgery 04/07/23 - Surgical preparation left medial leg with incision and drainage and excisional debridement nonhealing infected MRSA ulcer, (126 cm2). Operative culture were negative but she was on Vancomycin and Fluconazole for positive cultures from 04/05/23 which were positive for MRSE and Staphylococcus haemolyticus. Wound culture obtained on 12/29/22 which was positive for Enterococcus faecalis, Corynebacterium amycolatum, and MRSE. She was treated with Augmentin and Doxycycline. Wound culture obtained 01/28/23 which was positive for Enterococcus faecalis and Corynebacterium striatum. She was started on Augmentin. Wound culture obtained 07/07/23 which was positive for Proteus mirabilis and MRSA. She was treated with Doxycycline and Augmentin. Wound culture obtained 08/18/23 which was positive for Proteus mirabilis, Enterococcus faecalis and Corynebacterium striatum. She completed the Augmentin. Wound culture obtained 04/19/24 which was positive for MRSA. She was started on Doxycycline. She was in [facility] for a week at the end of February 2023 for subcutaneous air around her wound. She states she cultured positive for MRSA and they had her on IV antibiotics. They used a wound VAC while she was in the hospital. She was placed on Doxycycline and has finished them. Wound Care - Thera-Skin 9 applications. Surgery 02/14/[address] Welsh for Pilonidal cystectomy. Today she denies fever, chills, nausea or vomiting. Progress of Wound: Her left leg ulcer is smaller. Brenna wound is clear. Clinically no sign of infection. She has been wearing her compression. Edema is +1 lower leg. She is doing well. Objective Data Objective Data Vital Signs: Vital Signs Temp Pulse Resp BP 97.7 F L 85 20 H 103/63 07/12/24 15:29 07/12/24 15:29 07/12/24 15:29 07/12/24 15:29 Weight: 276 lb Body Mass Index (BMI) 48.9 Charges/Coding Procedures Integumentary 111xxx-113xx: 23956 Stephany subq tissue 20 sq cm/< Debridement Note Debridement Note Wound debrided: Left lateral leg ulcer Laterality: Left Wound Grade/Stage: Stage III Type of Debridement: Excisional debridement Anesthesia Used: 4% Lidocaine Solution and 5% Lidocaine Gel Depth: Down to and including healthy tissue and in the subcutaneous layer Percentage of wound debrided: 100 Instrument Used: 3mm curette Tissue Removed: Non viable tissue and slough Severity: Fat Layer Exposed Amount of bleeding with debridement: Mild Bleeding Controlled with: Pressure and Compression and gauze Patient tolerated procedure: Patient tolerated procedure well Post-Debridement Measurements and Additional Note: Post-Debridement Measurements/Treatment - Nurse 1 - General Ulcer Assessment Start: 07/12/24 15:29 Freq: Status: Active Protocol: STALIN.YOUNG Activity Type Activity Date Activity User E-sign Co-sign Detail Recorded Client Recorded Date Recorded By Document 07/12/24 15:29 DL [id number] 07/12/24 15:34 DL 07/12/24 15:29 - Today's Visit Information Type of service Follow-up Visit (Physician/CLINICAL SPECIALIST VASCULAR ) Arrival Mode Ambulatory Transfer Assistance None Patient Identification Verified (Name & Yes ) Patient Requires Transmission-Based No Precautions Height and Weight Body Mass Index (BMI) 48.9 BMI Classification Obese Vital Signs Temperature (97.8 F-99.1 F) 97.7 F L Temperature Source Temporal Pulse Rate (60-100) 85 Pulse Location Monitor Respiratory Rate (12-18) 20 H Respiratory rate source Observation Blood Pressure (90/60-120/80) 103/63 Blood Pressure Mean (mm Hg) 76 Source Monitor History Since Last Visit- (Skip if this is Patient's initial visit) Have you changed medications since your No last visit? Any new allergies or adverse reactions No Had a fall/change in ADL's that may No increase risk of falls Signs or symptoms of abuse and/or No neglect since last visit Have you been in the hospital since your No last visit? Has dressing in place as prescribed Yes Has compression in place as prescribed Yes Has offloadiing in place as prescribed N/A Experienced any changes in pain level or Yes management Left Footwear Regular Shoe Right Footwear Regular Shoe Pain Scale: 0-10 Numeric Is Patient Pain Free? Yes WC - Nurse 1 - General Ulcer Measurement Start: 07/12/24 15:29 Freq: Status: Active Protocol: Activity Type Activity Date Activity User E-sign Co-sign Detail Recorded Client Recorded Date Recorded By Document 07/12/24 15:29 DL [id number] 07/12/24 15:34 DL 07/12/24 15:29 Wound Center Nurse 1 #10 LLE Med -Current Size (cm) - Length 1.2 -Current Size (cm) - Width 1.3 -Current Size (cm) - Depth 0.2 -Total Square Cm 1.56 -Exudate Amt Medium -Exudate Type Yellow/Green -Wound Margin Distinct, Outline Attached -Granulation Amt Large (67-100%) -Granulation Quality [place] -Necrosis Amt Small (1-33%) -Necrotic Tissue Type Adherent Slough -Structure Exposed N/A -Texture (Brenna-wound Skin Appearance) Scarring -Moisture (Brenna-wound Skin Appearance) No Abnormality -Color (Brenna-wound Skin Appearance) No Abnormality -Temperature (Brenna-wound Skin No Abnormality Appearance) (Pt Warm) -Tenderness on Palpation (Brenna-wound No Skin Appearance) -Ulcer Cleansing Rinsed/ Irrigated with Saline -Foul Odor after Cleansing No -Anesthetic Used 5% Lidocaine Gel Left Calf (cm) 45 Left Ankle (cm) 31.1 WC - Nurse 2 - General Ulcer CM Notes Start: 07/12/24 15:29 Freq: Status: Active Protocol: Activity Type Activity Date Activity User E-sign Co-sign Detail Recorded Client Recorded Date Recorded By Document 07/12/24 16:01 [id number] 07/12/24 16:02 07/12/24 16:01 Wound Center Nurse 2 #10 LLE Med -Time 16:01 -Correct Patient Yes -Correct Side, Site, Position Yes -Correct Procedure Yes -Procedure Performed Yes -Type of Procedure Debridement -Clinical Debridement Subcutaneous -Tissue Removed Subcutaneous -Post Debridement (cm) - Length 1.3 -Post Debridement (cm) - Width 1.6 -Post Debridement (cm) - Depth 0.2 -Total Square (Post) (cm) 2.08 -Area of Debridement (cm) - Length 1.3 -Area of Debridement (cm) - Width 1.6 -Total Square (Area) (cm) 2.08 -Tunneling No -Undermining/Tunneling No -Circular Undermining No -Wound/Ulcer Outcome Not Healed -Ulcer Cleansing Rinsed/ Irrigated with Saline -Foul Odor after Cleansing No -Bioengineered Tissue No -Bleeding Controlled with Pressure -Treatment Response Procedure Tolerated Well -Debridement - Subq, 1st 20sq cm Yes Pain Scale: 0-10 Numeric Is Patient Pain Free? Yes - Nurse 3 - General Ulcer D/C NN Start: 07/12/24 15:29 Freq: Status: Active Protocol: Activity Type Activity Date Activity User E-sign Co-sign Detail Recorded Client Recorded Date Recorded By Document 07/12/24 16:06 [id number] 07/12/24 16:06 07/12/24 16:06 Wound Care Center Nurse 3 #10 LLE Med -Ulcer Cleansing Not Cleansed -Foul Odor after Cleansing No -Primary Dressing Applied Mepilex Border, Promogran Belle Matter -Mepilex Border 1 -Promogran Belle Matter 1 Pain Scale: 0-10 Numeric Is Patient Pain Free? Yes - Visit Discharge Discharge Condition Stable Ambulatory Status Ambulatory Transportation Private Auto Assessment/Plan Assessment/Plan (1) Ulcer of left lower extremity with muscle involvement without evidence of necrosis: CODE(S): L97.925 - Non-pressure chronic ulcer of unspecified part of left lower leg with muscle involvement without evidence of necrosis (2) History of necrotizing fasciitis: CODE(S): Z87.39 - Personal history of other diseases of the musculoskeletal system and connective tissue (3) Borderline personality disorder: CODE(S): F60.3 - Borderline personality disorder PLAN: Plan Patient was evaluated at the wound healing center today. Pilonidal wound remains healed. Wound care - Moistened Belle to the left lateral leg ulcer covered with [place] SAP/silicone border/ABD dressing daily. She is to wash the area with soap and water at the time of the dressing changes. Compression - She is wearing compression stockings bilaterally. Encourage nutritional supplementation with protein to help the healing process. A wound culture was obtained 04/19/24 and was positive for MRSA. She completed her Doxycycline. Follow up 2 weeks.
[2024-07-26 15:29] VITALS: BP 110/70; PULSE 77; RESP 18; BMI 48.9
--- NOTE | 2024-07-26 15:56 | PCM.WC.PN ---
History of Present Illness Date of Service: 07/26/24 Chief Complaint: non-healing ulcer left medial leg History of Wound: Patient is a 23 year old female who presents to the wound healing center for evaluation and treatment of a nonhealing ulcer left medial leg. Patient is a poor historian. Reviewed notes from [facility] [place], she had been admitted to [place] around 11/27/22 for cellulitis and worsening infection of her left lower leg. She ended having an I&D of her left medial leg, left lateral leg and left lateral thigh. She was diagnosed with necrotizing fasciitis. Her wound cultures were positive for Enterococcus and steno. Mycoplasma IGG and IgM (+). She was sent to [facility] on 2 weeks dapto, arthur, clinda, levaquin, and micafungin. Changed Dap to to Vanc. On 12/12 stopped vanc/levaquin/arthur and started IV fluc due to diagnosis of candidemia. She was discharged home from [facility] around the second week of December. She has a history of significant for depression, personality disorder, self harm, anxiety, asthma, recurrent cellulitis and ADHD and most recently Afib and tachycardia. She states that she did not cause these wounds and did not do anything to them to make them worse. She has a history of being accused of tampering with wounds. Surgery 04/07/23 - Surgical preparation left medial leg with incision and drainage and excisional debridement nonhealing infected MRSA ulcer, (126 cm2). Operative culture were negative but she was on Vancomycin and Fluconazole for positive cultures from 04/05/23 which were positive for MRSE and Staphylococcus haemolyticus. Wound culture obtained on 12/29/22 which was positive for Enterococcus faecalis, Corynebacterium amycolatum, and MRSE. She was treated with Augmentin and Doxycycline. Wound culture obtained 01/28/23 which was positive for Enterococcus faecalis and Corynebacterium striatum. She was started on Augmentin. Wound culture obtained 07/07/23 which was positive for Proteus mirabilis and MRSA. She was treated with Doxycycline and Augmentin. Wound culture obtained 08/18/23 which was positive for Proteus mirabilis, Enterococcus faecalis and Corynebacterium striatum. She completed the Augmentin. Wound culture obtained 04/19/24 which was positive for MRSA. She was started on Doxycycline. She was in [facility] for a week at the end of February 2023 for subcutaneous air around her wound. She states she cultured positive for MRSA and they had her on IV antibiotics. They used a wound VAC while she was in the hospital. She was placed on Doxycycline and has finished them. Wound Care - Thera-Skin 9 applications. Surgery 02/14/[address] Welsh for Pilonidal cystectomy. Today she denies fever, chills, nausea or vomiting. Progress of Wound: Her left leg ulcer is smaller. Brenna wound has some dry, flaky skin. Clinically no sign of infection. She has been wearing her compression. Edema is +1 lower leg. She is doing well. She is upset today because her brother is admitted to [facility] with sepsis and they are concerned he may need cardiac surgery. Objective Data Objective Data Vital Signs: Vital Signs Temp Pulse Resp BP O2 Del Method 97.7 F L 77 18 110/70 Room Air 07/12/24 15:29 07/26/24 15:29 07/26/24 15:29 07/26/24 15:29 07/26/24 15:29 Oxygen Delivery Method Room Air Weight: 276 lb Body Mass Index (BMI) 48.9 Charges/Coding Procedures Integumentary 111xxx-113xx: 44309 Stephany subq tissue 20 sq cm/< Debridement Note Debridement Note Wound debrided: Left lateral leg ulcer Laterality: Left Wound Grade/Stage: Stage III Type of Debridement: Excisional debridement Anesthesia Used: 4% Lidocaine Solution and 5% Lidocaine Gel Depth: Down to and including healthy tissue and in the subcutaneous layer Percentage of wound debrided: 100 Instrument Used: 3mm curette Tissue Removed: Non viable tissue and slough Severity: Fat Layer Exposed Amount of bleeding with debridement: Mild Bleeding Controlled with: Pressure and Compression and gauze Patient tolerated procedure: Patient tolerated procedure well Post-Debridement Measurements and Additional Note: Post-Debridement Measurements/Treatment WC - Nurse 1 - General Ulcer Assessment Start: 07/12/24 15:29 Freq: Status: Active Protocol: BOBO Activity Type Activity Date Activity User E-sign Co-sign Detail Recorded Client Recorded Date Recorded By Document 07/12/24 15:29 DL [id number] 07/12/24 15:34 DL Document 07/26/24 15:29 KW [id number] 07/26/24 15:30 KW 07/12/24 07/26/24 15:29 15:29 WC - Today's Visit Information Type of service Follow-up Visit (Physician/MUNITIONS WORKER ) Arrival Mode Ambulatory Transfer Assistance None Patient Identification Verified (Name & Yes ) Patient Requires Transmission-Based No Precautions Height and Weight Body Mass Index (BMI) 48.9 48.9 BMI Classification Obese Obese Vital Signs Temperature (97.8 F-99.1 F) 97.7 F L Temperature Source Temporal Pulse Rate (60-100) 85 77 Pulse Location Monitor Respiratory Rate (12-18) 20 H 18 Respiratory rate source Observation Observation Oxygen Delivery Method Room Air Blood Pressure (90/60-120/80) 103/63 110/70 Blood Pressure Mean (mm Hg) 76 83 Source Monitor Monitor Position Semi-Fowlers Blood Pressure Location Left Arm History Since Last Visit- (Skip if this is Patient's initial visit) Have you changed medications since your No No last visit? Any new allergies or adverse reactions No No Had a fall/change in ADL's that may No No increase risk of falls Signs or symptoms of abuse and/or No No neglect since last visit Have you been in the hospital since your No No last visit? Has dressing in place as prescribed Yes Yes Has compression in place as prescribed Yes Yes Has offloadiing in place as prescribed N/A N/A Experienced any changes in pain level or Yes No management Left Footwear Regular Shoe Regular Shoe Right Footwear Regular Shoe Regular Shoe Pain Scale: 0-10 Numeric Is Patient Pain Free? Yes Yes - Nurse 1 - General Ulcer Measurement Start: 07/12/24 15:29 Freq: Status: Active Protocol: Activity Type Activity Date Activity User E-sign Co-sign Detail Recorded Client Recorded Date Recorded By Document 07/12/24 15:29 DL [id number] 07/12/24 15:34 DL Document 07/26/24 15:29 KW [id number] 07/26/24 15:30 KW 07/12/24 07/26/24 15:29 15:29 Wound Center Nurse 1 #10 LLE Med -Current Size (cm) - Length 1.2 1.3 -Current Size (cm) - Width 1.3 1.5 -Current Size (cm) - Depth 0.2 0.2 -Total Square Cm 1.56 1.95 -Date of Last Picture (Recall this 07/26/24 field) -Exudate Amt Medium Large -Exudate Type Yellow/Green Purulent -Wound Margin Distinct, Distinct, Outline Outline Attached Attached -Granulation Amt Large (67-100%) Large (67-100%) -Granulation Quality [place] -Necrosis Amt Small (1-33%) -Necrotic Tissue Type Adherent Slough -Structure Exposed N/A -Texture (Brenna-wound Skin Appearance) Scarring Assessed -Moisture (Brenna-wound Skin Appearance) No Abnormality Assessed -Color (Brenna-wound Skin Appearance) No Abnormality Assessed -Temperature (Brenna-wound Skin No Abnormality No Abnormality Appearance) (Pt Warm) (Pt Warm) -Tenderness on Palpation (Brenna-wound No No Skin Appearance) -Ulcer Cleansing Rinsed/ Rinsed/ Irrigated with Irrigated with Saline Saline -Foul Odor after Cleansing No No -Anesthetic Used 5% Lidocaine 5% Lidocaine Gel Gel Left Calf (cm) 45 Left Ankle (cm) 31.1 WC - Nurse 2 - General Ulcer CM Notes Start: 07/12/24 15:29 Freq: Status: Active Protocol: Activity Type Activity Date Activity User E-sign Co-sign Detail Recorded Client Recorded Date Recorded By Document 07/12/24 16:01 [id number] 07/12/24 16:02 Document 07/26/24 15:34 [id number] 07/26/24 15:37 07/12/24 07/26/24 16:01 15:34 Wound Center Nurse 2 #10 LLE Med -Time 16:01 15:35 -Correct Patient Yes Yes -Correct Side, Site, Position Yes Yes -Correct Procedure Yes Yes -Procedure Performed Yes Yes -Type of Procedure Debridement Debridement -Clinical Debridement Subcutaneous Subcutaneous -Tissue Removed Subcutaneous Subcutaneous -Post Debridement (cm) - Length 1.3 1.3 -Post Debridement (cm) - Width 1.6 1.5 -Post Debridement (cm) - Depth 0.2 0.1 -Total Square (Post) (cm) 2.08 1.95 -Area of Debridement (cm) - Length 1.3 1.3 -Area of Debridement (cm) - Width 1.6 1.5 -Total Square (Area) (cm) 2.08 1.95 -Tunneling No No -Undermining/Tunneling No No -Circular Undermining No No -Wound/Ulcer Outcome Not Healed Not Healed -Ulcer Cleansing Rinsed/ Rinsed/ Irrigated with Irrigated with Saline Saline -Foul Odor after Cleansing No No -Bioengineered Tissue No No -Bleeding Controlled with Pressure Pressure -Treatment Response Procedure Procedure Tolerated Well Tolerated Well -Debridement - Subq, 1st 20sq cm Yes Yes Pain Scale: 0-10 Numeric Is Patient Pain Free? Yes Yes - Nurse 3 - General Ulcer D/C NN Start: 07/12/24 15:29 Freq: Status: Active Protocol: Activity Type Activity Date Activity User E-sign Co-sign Detail Recorded Client Recorded Date Recorded By Document 07/12/24 16:06 [id number] 07/12/24 16:06 Document 07/26/24 15:38 [id number] 07/26/24 15:41 07/12/24 07/26/24 16:06 15:38 Wound Care Center Nurse 3 #10 LLE Med -Ulcer Cleansing Not Cleansed Not Cleansed -Foul Odor after Cleansing No No -Negative Pressure Wound Therapy N/A -Primary Dressing Applied Mepilex Border, Mepilex Border, Promogran Promogran Belle Matter Belle Matter -Mepilex Border 1 1 -Promogran Belle Matter 1 1 Pain Scale: 0-10 Numeric Is Patient Pain Free? 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 Pilonidal wound remains healed. Wound care - Moistened Belle to the left lateral leg ulcer covered with [place] SAP/silicone border/ABD dressing daily. She is to wash the area with soap and water at the time of the dressing changes. Around the dressing she may place lac hydrin lotion to help moisturize the area (not under the dressing or it will prevent the silicone from adhering) 1-2 times per day. Compression - She is wearing compression stockings bilaterally. Encourage nutritional supplementation with protein to help the healing process. A wound culture was obtained 04/19/24 and was positive for MRSA. She completed her Doxycycline. Follow up 1.5 weeks.
--- NOTE | 2024-07-27 09:19 | WC ---
PHOTO 07/26/24 LEFT MEDIAL LEG
[2024-08-07 13:33] VITALS: BP 97/52; PULSE 82; RESP 18; TEMP 36.1; BMI 48.9
--- NOTE | 2024-08-07 15:52 | PN.PCM_ITS ---
History of Present Illness Date of Service: 08/07/24 Chief Complaint: non-healing ulcer left medial leg History of Wound: Patient is a 23 year old female who presents to the wound healing center for evaluation and treatment of a nonhealing ulcer left medial leg. Patient is a poor historian. Reviewed notes from [facility] [place], she had been admitted to [place] around 11/27/22 for cellulitis and worsening infection of her left lower leg. She ended having an I&D of her left medial leg, left lateral leg and left lateral thigh. She was diagnosed with necrotizing fasciitis. Her wound cultures were positive for Enterococcus and steno. Mycoplasma IGG and IgM (+). She was sent to [facility] on 2 weeks dapto, arthur, clinda, levaquin, and micafungin. Changed Dap to to Vanc. On 12/12 stopped vanc/levaquin/arthur and started IV fluc due to diagnosis of candidemia. She was discharged home from [facility] around the second week of December. She has a history of significant for depression, personality disorder, self harm, anxiety, asthma, recurrent cellulitis and ADHD and most recently Afib and tachycardia. She states that she did not cause these wounds and did not do anything to them to make them worse. She has a history of being accused of tampering with wounds. Surgery 04/07/23 - Surgical preparation left medial leg with incision and drainage and excisional debridement nonhealing infected MRSA ulcer, (126 cm2). Operative culture were negative but she was on Vancomycin and Fluconazole for positive cultures from 04/05/23 which were positive for MRSE and Staphylococcus haemolyticus. Wound culture obtained on 12/29/22 which was positive for Enterococcus faecalis, Corynebacterium amycolatum, and MRSE. She was treated with Augmentin and Doxycycline. Wound culture obtained 01/28/23 which was positive for Enterococcus faecalis and Corynebacterium striatum. She was started on Augmentin. Wound culture obtained 07/07/23 which was positive for Proteus mirabilis and MRSA. She was treated with Doxycycline and Augmentin. Wound culture obtained 08/18/23 which was positive for Proteus mirabilis, Enterococcus faecalis and Corynebacterium striatum. She completed the Augmentin. Wound culture obtained 04/19/24 which was positive for MRSA. She was started on Doxycycline. She was in [facility] for a week at the end of February 2023 for subcutaneous air around her wound. She states she cultured positive for MRSA and they had her on IV antibiotics. They used a wound VAC while she was in the hospital. She was placed on Doxycycline and has finished them. Wound Care - Thera-Skin 9 applications. Surgery 02/14/[address] Welsh for Pilonidal cystectomy. Today she denies fever, chills, nausea or vomiting. Progress of Wound: Her left leg ulcer is stable. Brenna wound has some dry, flaky skin that is excoriated. Clinically no sign of infection. She has been wearing her compression. Edema is +1 lower leg. She is doing well. Objective Data Objective Data Vital Signs: Vital Signs Temp Pulse Resp BP O2 Del Method 97 F L 82 18 97/52 L Room Air 08/07/24 13:33 08/07/24 13:33 08/07/24 13:33 08/07/24 13:33 08/07/24 13:33 Oxygen Delivery Method Room Air Weight: 276 lb Body Mass Index (BMI) 48.9 Charges/Coding Procedures Integumentary 111xxx-113xx: 69327 Stephany subq tissue 20 sq cm/< Debridement Note Debridement Note Wound debrided: Left lateral leg ulcer Laterality: Left Wound Grade/Stage: Stage III Type of Debridement: Excisional debridement Anesthesia Used: 4% Lidocaine Solution and 5% Lidocaine Gel Depth: Down to and including healthy tissue and in the subcutaneous layer Percentage of wound debrided: 100 Instrument Used: 3mm curette Tissue Removed: Non viable tissue and slough Severity: Fat Layer Exposed Amount of bleeding with debridement: Mild Bleeding Controlled with: Pressure and Compression and gauze Patient tolerated procedure: Patient tolerated procedure well Post-Debridement Measurements and Additional Note: Post-Debridement Measurements/Treatment STALIN - Nurse 1 - General Ulcer Assessment Start: 07/12/24 15:29 Freq: Status: Active Protocol: BOBO Activity Type Activity Date Activity User E-sign Co-sign Detail Recorded Client Recorded Date Recorded By Document 07/12/24 15:29 DL [id number] 07/12/24 15:34 DL Document 07/26/24 15:29 KW [id number] 07/26/24 15:30 KW Document 08/07/24 13:33 MT [id number] 08/07/24 13:39 MT 07/12/24 07/26/24 08/07/24 15:29 15:29 13:33 WC - Today's Visit Information Type of service Follow-up Visit Follow-up Visit (Physician/MATHEMATICS PROFESSOR (Physician/MATHEMATICS PROFESSOR ) ) Arrival Mode Ambulatory Ambulatory Transfer Assistance None Accompanied by SELF Patient Identification Verified (Name & Yes Yes ) Patient Requires Transmission-Based No Precautions Safety Precautions Fall Prevention Height and Weight Body Mass Index (BMI) 48.9 48.9 48.9 BMI Classification Obese Obese Obese Vital Signs Temperature (97.8 F-99.1 F) 97.7 F L 97 F L Temperature Source Temporal Temporal Pulse Rate (60-100) 85 77 82 Pulse Location Monitor Respiratory Rate (12-18) 20 H 18 18 Respiratory rate source Observation Observation Observation Oxygen Delivery Method Room Air Room Air Blood Pressure (90/60-120/80) 103/63 110/70 97/52 L Blood Pressure Mean (mm Hg) 76 83 67 Source Monitor Monitor Monitor Position Semi-Fowlers Sitting Blood Pressure Location Left Arm Left Arm History Since Last Visit- (Skip if this is Patient's initial visit) Have you changed medications since your No No last visit? Any new allergies or adverse reactions No No Had a fall/change in ADL's that may No No increase risk of falls Signs or symptoms of abuse and/or No No neglect since last visit Have you been in the hospital since your No No last visit? Has dressing in place as prescribed Yes Yes Yes Has compression in place as prescribed Yes Yes Yes Has offloadiing in place as prescribed N/A N/A Yes Experienced any changes in pain level or Yes No Yes management Left Footwear Regular Shoe Regular Shoe Regular Shoe Right Footwear Regular Shoe Regular Shoe Regular Shoe Pain Scale: 0-10 Numeric Is Patient Pain Free? Yes Yes Yes - Nurse 1 - General Ulcer Measurement Start: 07/12/24 15:29 Freq: Status: Active Protocol: Activity Type Activity Date Activity User E-sign Co-sign Detail Recorded Client Recorded Date Recorded By Document 07/12/24 15:29 DL [id number] 07/12/24 15:34 DL Document 07/26/24 15:29 KW [id number] 07/26/24 15:30 KW Document 08/07/24 13:33 MT [id number] 08/07/24 13:39 MT 07/12/24 07/26/24 08/07/24 15:29 15:29 13:33 Wound Center Nurse 1 #10 LLE Med -Current Size (cm) - Length 1.2 1.3 1.5 -Current Size (cm) - Width 1.3 1.5 1.5 -Current Size (cm) - Depth 0.2 0.2 0.2 -Total Square Cm 1.56 1.95 2.25 -Date of Last Picture (Recall this 07/26/24 field) -Exudate Amt Medium Large Small -Exudate Type Yellow/Green Purulent Serosanguineous -Wound Margin Distinct, Distinct, Flat & Intact Outline Outline Attached Attached -Granulation Amt Large (67-100%) Large (67-100%) Medium (34-66%) -Granulation Quality [place] Pale,[place] -Necrosis Amt Small (1-33%) Medium (34-66%) -Necrotic Tissue Type Adherent Slough -Structure Exposed N/A -Texture (Brenna-wound Skin Appearance) Scarring Assessed Assessed -Moisture (Brenna-wound Skin Appearance) No Abnormality Assessed Assessed -Color (Brenna-wound Skin Appearance) No Abnormality Assessed Assessed -Temperature (Brenna-wound Skin No Abnormality No Abnormality No Abnormality Appearance) (Pt Warm) (Pt Warm) (Pt Warm) -Tenderness on Palpation (Brenna-wound No No Skin Appearance) -Ulcer Cleansing Rinsed/ Rinsed/ Soap and Water Irrigated with Irrigated with Saline Saline -Foul Odor after Cleansing No No No -Anesthetic Used 5% Lidocaine 5% Lidocaine 5% Lidocaine Gel Gel Gel Left Calf (cm) 45 44 Left Ankle (cm) 31.1 22 WC - Nurse 2 - General Ulcer CM Notes Start: 07/12/24 15:29 Freq: Status: Active Protocol: Activity Type Activity Date Activity User E-sign Co-sign Detail Recorded Client Recorded Date Recorded By Document 07/12/24 16:01 [id number] 07/12/24 16:02 Document 07/26/24 15:34 [id number] 07/26/24 15:37 Document 08/07/24 14:01 [id number] 08/07/24 14:04 07/12/24 07/26/24 08/07/24 16:01 15:34 14:01 Wound Center Nurse 2 #10 LLE Med -Time 16:01 15:35 14:01 -Correct Patient Yes Yes Yes -Correct Side, Site, Position Yes Yes Yes -Correct Procedure Yes Yes Yes -Procedure Performed Yes Yes Yes -Type of Procedure Debridement Debridement Debridement -Clinical Debridement Subcutaneous Subcutaneous Subcutaneous -Tissue Removed Subcutaneous Subcutaneous Subcutaneous -Post Debridement (cm) - Length 1.3 1.3 1.3 -Post Debridement (cm) - Width 1.6 1.5 1.6 -Post Debridement (cm) - Depth 0.2 0.1 0.1 -Total Square (Post) (cm) 2.08 1.95 2.08 -Area of Debridement (cm) - Length 1.3 1.3 1.3 -Area of Debridement (cm) - Width 1.6 1.5 1.6 -Total Square (Area) (cm) 2.08 1.95 2.08 -Tunneling No No No -Undermining/Tunneling No No No -Circular Undermining No No No -Wound/Ulcer Outcome Not Healed Not Healed Not Healed -Ulcer Cleansing Rinsed/ Rinsed/ Rinsed/ Irrigated with Irrigated with Irrigated with Saline Saline Saline -Foul Odor after Cleansing No No No -Bioengineered Tissue No No No -Bleeding Controlled with Pressure Pressure Pressure -Treatment Response Procedure Procedure Procedure Tolerated Well Tolerated Well Tolerated Well -Debridement - Subq, 1st 20sq cm Yes Yes Yes Pain Scale: 0-10 Numeric Is Patient Pain Free? Yes Yes Yes WC - Nurse 3 - General Ulcer D/C NN Start: 07/12/24 15:29 Freq: Status: Active Protocol: Activity Type Activity Date Activity User E-sign Co-sign Detail Recorded Client Recorded Date Recorded By Document 07/12/24 16:06 [id number] 07/12/24 16:06 Document 07/26/24 15:38 [id number] 07/26/24 15:41 Document 08/07/24 14:17 DL [id number] 08/07/24 14:18 DL 07/12/24 07/26/24 08/07/24 16:06 15:38 14:17 Wound Care Center Nurse 3 #10 LLE Med -Ulcer Cleansing Not Cleansed Not Cleansed Rinsed/ Irrigated with Saline -Foul Odor after Cleansing No No No -Negative Pressure Wound Therapy N/A -Primary Dressing Applied Mepilex Border, Mepilex Border, Promogran Promogran Promogran Belle Matter Belle Matter Belle Matter -Primary Dressing Covered/Secured with Dry Gauze & Roll Gauze, Secured with Tape -Mepilex Border 1 1 -Promogran Belle Matter 1 1 1 Left -Stockings Yes Pain Scale: 0-10 Numeric Is Patient Pain Free? 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 Pilonidal wound remains healed. Wound care - Moistened Belle to the left lateral leg ulcer covered with gauze and cling wrap daily. Stop [place] SAP/silicone border dressing due to irritation to her brenna wound. She is to wash the area with soap and water at the time of the dressing changes. Ordered Triamcinolone cream to per wound daily. Compression - She is wearing compression stockings bilaterally. Encourage nutritional supplementation with protein to help the healing process. Follow up 1 week.
== END 2024-08-08 23:59 | disposition home or self-care (01) ==
LOC: WC 13:30
PROVIDERS: PCP Student in an Organized Health Care Education/Training Program; Referring Provider Student in an Organized Health Care Education/Training Program; Visit Provider Nurse Practitioner Family
DX: L97.925 Non-pressure chronic ulcer of unspecified part of left lower leg with muscle involvement without evidence of necrosis (principal); F60.3 Borderline personality disorder; R60.0 Localized edema; Z86.14 Personal history of Methicillin resistant Staphylococcus aureus infection
CPT/HCPCS: 11042

== ENCOUNTER 2024-08-30 15:30 | Outpatient (RCR) | payer MEDICAID, SELFPAY ==
[2024-08-09 00:40] VITALS: BP 127/86; PULSE 94; RESP 16; TEMP 35.7; BMI 48.9
[2024-08-16 15:26] VITALS: BP 112/64; PULSE 80; RESP 18; TEMP 36.3; BMI 48.9
--- NOTE | 2024-08-16 16:21 | PCM.WC.PN ---
History of Present Illness Date of Service: 08/16/24 Chief Complaint: non-healing ulcer left medial leg History of Wound: Patient is a 24 year old female who presents to the wound healing center for evaluation and treatment of a nonhealing ulcer left medial leg. Patient is a poor historian. Reviewed notes from [facility] [place], she had been admitted to [facility] around 11/27/22 for cellulitis and worsening infection of her left lower leg. She ended having an I&D of her left medial leg, left lateral leg and left lateral thigh. She was diagnosed with necrotizing fasciitis. Her wound cultures were positive for Enterococcus and steno. Mycoplasma IGG and IgM (+). She was sent to [facility] on 2 weeks dapto, arthur, clinda, levaquin, and micafungin. Changed Dap to to Vanc. On 12/12 stopped vanc/levaquin/arthur and started IV fluc due to diagnosis of candidemia. She was discharged home from [facility] around the second week of December. She has a history of significant for depression, personality disorder, self harm, anxiety, asthma, recurrent cellulitis and ADHD and most recently Afib and tachycardia. She states that she did not cause these wounds and did not do anything to them to make them worse. She has a history of being accused of tampering with wounds. Surgery 04/07/23 - Surgical preparation left medial leg with incision and drainage and excisional debridement nonhealing infected MRSA ulcer, (126 cm2). Operative culture were negative but she was on Vancomycin and Fluconazole for positive cultures from 04/05/23 which were positive for MRSE and Staphylococcus haemolyticus. Wound culture obtained on 12/29/22 which was positive for Enterococcus faecalis, Corynebacterium amycolatum, and MRSE. She was treated with Augmentin and Doxycycline. Wound culture obtained 01/28/23 which was positive for Enterococcus faecalis and Corynebacterium striatum. She was started on Augmentin. Wound culture obtained 07/07/23 which was positive for Proteus mirabilis and MRSA. She was treated with Doxycycline and Augmentin. Wound culture obtained 08/18/23 which was positive for Proteus mirabilis, Enterococcus faecalis and Corynebacterium striatum. She completed the Augmentin. Wound culture obtained 04/19/24 which was positive for MRSA. She was started on Doxycycline. She was in [facility] for a week at the end of February 2023 for subcutaneous air around her wound. She states she cultured positive for MRSA and they had her on IV antibiotics. They used a wound VAC while she was in the hospital. She was placed on Doxycycline and has finished them. Wound Care - Thera-Skin 9 applications. Surgery 02/14/[address] Welsh for Pilonidal cystectomy. Today she denies fever, chills, nausea or vomiting. Progress of Wound: Today the left medial leg ulcer is stable, it may be mildly larger in size. Brenna wound is much improved with stopping the Mepilex dressing and the steroid cream. She will continue the steroid cream for another week and then stop. She states that she has been consistently wearing her compression. Objective Data Objective Data Vital Signs: Vital Signs Temp Pulse Resp BP O2 Del Method 97.3 F L 80 18 112/64 Room Air 08/16/24 15:26 08/16/24 15:26 08/16/24 15:26 08/16/24 15:26 08/16/24 15:26 Oxygen Delivery Method Room Air Weight: 276 lb Body Mass Index (BMI) 48.9 Charges/Coding Procedures Integumentary 111xxx-113xx: 76313 Stephany subq tissue 20 sq cm/< Debridement Note Debridement Note Wound debrided: Left lateral leg ulcer Laterality: Left Wound Grade/Stage: Stage III Type of Debridement: Excisional debridement Anesthesia Used: 4% Lidocaine Solution and 5% Lidocaine Gel Depth: Down to and including healthy tissue and in the subcutaneous layer Percentage of wound debrided: 100 Instrument Used: 5mm curette Tissue Removed: Non viable tissue and slough Severity: Fat Layer Exposed Amount of bleeding with debridement: Mild Bleeding Controlled with: Pressure and Compression and gauze Patient tolerated procedure: Patient tolerated procedure well Post-Debridement Measurements and Additional Note: Post-Debridement Measurements/Treatment - Nurse 1 - General Ulcer Assessment Start: 08/16/24 15:26 Freq: Status: Active Protocol: BOBO Activity Type Activity Date Activity User E-sign Co-sign Detail Recorded Client Recorded Date Recorded By Document 08/16/24 15:26 [facility] [id number] 08/16/24 15:29 BM 08/16/24 15:26 - Today's Visit Information Type of service Follow-up Visit (Physician/B2B 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 ) Arrival Mode Ambulatory Patient Identification Verified (Name & Yes ) Height and Weight Body Mass Index (BMI) 48.9 BMI Classification Obese Vital Signs Temperature (97.8 F-99.1 F) 97.3 F L Temperature Source Temporal Pulse Rate (60-100) 80 Pulse Location Monitor Respiratory Rate (12-18) 18 Respiratory rate source Observation Oxygen Delivery Method Room Air Blood Pressure (90/60-120/80) 112/64 Blood Pressure Mean (mm Hg) 80 Source Monitor Position Sitting Blood Pressure Location Left Arm History Since Last Visit- (Skip if this is Patient's initial visit) Have you changed medications since your No last visit? Any new allergies or adverse reactions No Had a fall/change in ADL's that may No increase risk of falls Signs or symptoms of abuse and/or No neglect since last visit Have you been in the hospital since your No last visit? Has dressing in place as prescribed Yes Has compression in place as prescribed Yes Has offloadiing in place as prescribed N/A Experienced any changes in pain level or No management Left Footwear Regular Shoe Right Footwear Regular Shoe Pain Scale: 0-10 Numeric Is Patient Pain Free? Yes WC - Nurse 1 - General Ulcer Measurement Start: 08/16/24 15:26 Freq: Status: Active Protocol: Activity Type Activity Date Activity User E-sign Co-sign Detail Recorded Client Recorded Date Recorded By Document 08/16/24 15:26 [facility] [id number] 08/16/24 15:29 [facility] 08/16/24 15:26 Wound Center Nurse 1 #10 LLE Med -Current Size (cm) - Length 1.6 -Current Size (cm) - Width 1.4 -Current Size (cm) - Depth 0.2 -Total Square Cm 2.24 -Date of Last Picture (Recall this 08/16/24 field) -Exudate Amt Small -Exudate Type Serosanguineous -Wound Margin Thickened -Granulation Amt Large (67-100%) -Granulation Quality [place] -Texture (Brenna-wound Skin Appearance) Assessed -Moisture (Brenna-wound Skin Appearance) Assessed -Color (Brenna-wound Skin Appearance) Assessed, Erythema -Temperature (Brenna-wound Skin No Abnormality Appearance) (Pt Warm) -Tenderness on Palpation (Brenna-wound No Skin Appearance) -Ulcer Cleansing Rinsed/ Irrigated with Saline -Foul Odor after Cleansing No -Anesthetic Used 5% Lidocaine Gel Left Calf (cm) 44.1 Left Ankle (cm) 31.1 WC - Nurse 2 - General Ulcer CM Notes Start: 08/16/24 15:26 Freq: Status: Active Protocol: Activity Type Activity Date Activity User E-sign Co-sign Detail Recorded Client Recorded Date Recorded By Document 08/16/24 16:13 [id number] 08/16/24 16:14 08/16/24 16:13 Wound Center Nurse 2 #10 LLE Med -Time 16:13 -Correct Patient Yes -Correct Side, Site, Position Yes -Correct Procedure Yes -Procedure Performed Yes -Type of Procedure Debridement -Clinical Debridement Subcutaneous -Tissue Removed Subcutaneous -Post Debridement (cm) - Length 1.8 -Post Debridement (cm) - Width 1.5 -Post Debridement (cm) - Depth 0.1 -Total Square (Post) (cm) 2.70 -Area of Debridement (cm) - Length 1.8 -Area of Debridement (cm) - Width 1.5 -Total Square (Area) (cm) 2.70 -Tunneling No -Undermining/Tunneling No -Circular Undermining No -Wound/Ulcer Outcome Not Healed -Ulcer Cleansing Rinsed/ Irrigated with Saline -Foul Odor after Cleansing No -Bioengineered Tissue No -Bleeding Controlled with Pressure -Treatment Response Procedure Tolerated Well -Debridement - Subq, 1st 20sq cm Yes Pain Scale: 0-10 Numeric Is Patient Pain Free? 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 Pilonidal wound remains healed. Wound care - Change dressing to moistened Fibrocol + to the left medial leg ulcer covered with gauze and cling wrap daily. She is to wash the area with soap and water at the time of the dressing changes. Continue the Triamcinolone cream for one more week around the brenna wound then stop. Compression - She is wearing compression stockings bilaterally. Encourage nutritional supplementation with protein to help the healing process. Follow up 2 weeks.
--- NOTE | 2024-08-17 12:24 | WC ---
PHOTO 08/16/24 L MED LEG
[2024-08-30 15:28] VITALS: BP 105/54; PULSE 73; RESP 18; TEMP 36.5; BMI 48.9
--- NOTE | 2024-08-30 16:26 | PN.PCM_ITS ---
History of Present Illness Date of Service: 08/30/24 Chief Complaint: non-healing ulcer left medial leg History of Wound: Patient is a 24 year old female who presents to the wound healing center for evaluation and treatment of a nonhealing ulcer left medial leg. Patient is a poor historian. Reviewed notes from [facility] [place], she had been admitted to [facility] around 11/27/22 for cellulitis and worsening infection of her left lower leg. She ended having an I&D of her left medial leg, left lateral leg and left lateral thigh. She was diagnosed with necrotizing fasciitis. Her wound cultures were positive for Enterococcus and steno. Mycoplasma IGG and IgM (+). She was sent to [facility] on 2 weeks dapto, arthur, clinda, levaquin, and micafungin. Changed Dap to to Vanc. On 12/12 stopped vanc/levaquin/arthur and started IV fluc due to diagnosis of candidemia. She was discharged home from [facility] around the second week of December. She has a history of significant for depression, personality disorder, self harm, anxiety, asthma, recurrent cellulitis and ADHD and most recently Afib and tachycardia. She states that she did not cause these wounds and did not do anything to them to make them worse. She has a history of being accused of tampering with wounds. Surgery 04/07/23 - Surgical preparation left medial leg with incision and drainage and excisional debridement nonhealing infected MRSA ulcer, (126 cm2). Operative culture were negative but she was on Vancomycin and Fluconazole for positive cultures from 04/05/23 which were positive for MRSE and Staphylococcus haemolyticus. Wound culture obtained on 12/29/22 which was positive for Enterococcus faecalis, Corynebacterium amycolatum, and MRSE. She was treated with Augmentin and Doxycycline. Wound culture obtained 01/28/23 which was positive for Enterococcus faecalis and Corynebacterium striatum. She was started on Augmentin. Wound culture obtained 07/07/23 which was positive for Proteus mirabilis and MRSA. She was treated with Doxycycline and Augmentin. Wound culture obtained 08/18/23 which was positive for Proteus mirabilis, Enterococcus faecalis and Corynebacterium striatum. She completed the Augmentin. Wound culture obtained 04/19/24 which was positive for MRSA. She was started on Doxycycline. She was in [facility] for a week at the end of February 2023 for subcutaneous air around her wound. She states she cultured positive for MRSA and they had her on IV antibiotics. They used a wound VAC while she was in the hospital. She was placed on Doxycycline and has finished them. Wound Care - Thera-Skin 9 applications. Surgery 02/14/[address] Welsh for Pilonidal cystectomy. Today she denies fever, chills, nausea or vomiting. Progress of Wound: Today the left medial leg ulcer is stable, Brnena wound is much improved with stopping the Mepilex dressing and then the steroid cream (which she completed using) and now she is using a [place] medicated cream that has really softened up her brenna wound and made it look healthy. She states that she has been consistently wearing her compression. Objective Data Objective Data Vital Signs: Vital Signs Temp Pulse Resp BP O2 Del Method 97.7 F L 73 18 105/54 L Room Air 08/30/24 15:28 08/30/24 15:28 08/30/24 15:28 08/30/24 15:28 08/16/24 15:26 Oxygen Delivery Method Room Air Weight: 276 lb Body Mass Index (BMI) 48.9 Charges/Coding Procedures Integumentary 111xxx-113xx: 05099 Stephany subq tissue 20 sq cm/< Debridement Note Debridement Note Wound debrided: Left lateral leg ulcer Laterality: Left Wound Grade/Stage: Stage III Type of Debridement: Excisional debridement Anesthesia Used: 4% Lidocaine Solution and 5% Lidocaine Gel Depth: Down to and including healthy tissue and in the subcutaneous layer Percentage of wound debrided: 100 Instrument Used: 3mm curette Tissue Removed: Non viable tissue and slough, especially around the edges of the ulcer Severity: Fat Layer Exposed Amount of bleeding with debridement: Mild Bleeding Controlled with: Pressure and Compression and gauze Patient tolerated procedure: Patient tolerated procedure well Post-Debridement Measurements and Additional Note: Post-Debridement Measurements/Treatment WC - Nurse 1 - General Ulcer Assessment Start: 08/16/24 15:26 Freq: Status: Active Protocol: BOBO Activity Type Activity Date Activity User E-sign Co-sign Detail Recorded Client Recorded Date Recorded By Document 08/16/24 15:26 [facility] [id number] 08/16/24 15:29 BMF Document 08/30/24 15:28 DL [id number] 08/30/24 15:33 DL 08/16/24 08/30/24 15:26 15:28 WC - Today's Visit Information Type of service Follow-up Visit Follow-up Visit (Physician/MANAGER MOLECULAR (Physician/MANAGER MOLECULAR ) ) Arrival Mode Ambulatory Ambulatory Transfer Assistance None Patient Identification Verified (Name & Yes Yes ) Patient Requires Transmission-Based No Precautions Height and Weight Body Mass Index (BMI) 48.9 48.9 BMI Classification Obese Obese Vital Signs Temperature (97.8 F-99.1 F) 97.3 F L 97.7 F L Temperature Source Temporal Temporal Pulse Rate (60-100) 80 73 Pulse Location Monitor Monitor Respiratory Rate (12-18) 18 18 Respiratory rate source Observation Observation Oxygen Delivery Method Room Air Blood Pressure (90/60-120/80) 112/64 105/54 L Blood Pressure Mean (mm Hg) 80 71 Source Monitor Monitor Position Sitting Blood Pressure Location Left Arm History Since Last Visit- (Skip if this is Patient's initial visit) Have you changed medications since your No No last visit? Any new allergies or adverse reactions No No Had a fall/change in ADL's that may No No increase risk of falls Signs or symptoms of abuse and/or No No neglect since last visit Have you been in the hospital since your No No last visit? Has dressing in place as prescribed Yes Yes Has compression in place as prescribed Yes Yes Has offloadiing in place as prescribed N/A N/A Experienced any changes in pain level or No No management Left Footwear Regular Shoe Right Footwear Regular Shoe Pain Scale: 0-10 Numeric Is Patient Pain Free? Yes Yes - Nurse 1 - General Ulcer Measurement Start: 08/16/24 15:26 Freq: Status: Active Protocol: Activity Type Activity Date Activity User E-sign Co-sign Detail Recorded Client Recorded Date Recorded By Document 08/16/24 15:26 [facility] [id number] 08/16/24 15:29 [facility] Document 08/30/24 15:28 DL [id number] 08/30/24 15:33 DL 08/16/24 08/30/24 15:26 15:28 Wound Center Nurse 1 #10 LLE Med -Current Size (cm) - Length 1.6 1.6 -Current Size (cm) - Width 1.4 1.6 -Current Size (cm) - Depth 0.2 0.2 -Total Square Cm 2.24 2.56 -Date of Last Picture (Recall this 08/16/24 field) -Exudate Amt Small Medium -Exudate Type Serosanguineous Serosanguineous -Wound Margin Thickened Distinct, Outline Attached -Granulation Amt Large (67-100%) Small (1-33%) -Granulation Quality [place] -Necrosis Amt Large (67-100%) -Necrotic Tissue Type Adherent Slough -Structure Exposed N/A -Texture (Brenna-wound Skin Appearance) Assessed Scarring,Rash -Moisture (Brenna-wound Skin Appearance) Assessed Dry/Scaly -Color (Brenna-wound Skin Appearance) Assessed, No Abnormality Erythema -Temperature (Brenna-wound Skin No Abnormality No Abnormality Appearance) (Pt Warm) (Pt Warm) -Tenderness on Palpation (Brenna-wound No Skin Appearance) -Ulcer Cleansing Rinsed/ Rinsed/ Irrigated with Irrigated with Saline Saline -Foul Odor after Cleansing No No -Anesthetic Used 5% Lidocaine 5% Lidocaine Gel Gel Left Calf (cm) 44.1 Left Ankle (cm) 31.1 WC - Nurse 2 - General Ulcer CM Notes Start: 08/16/24 15:26 Freq: Status: Active Protocol: Activity Type Activity Date Activity User E-sign Co-sign Detail Recorded Client Recorded Date Recorded By Document 08/16/24 16:13 [id number] 08/16/24 16:14 Document 08/30/24 15:38 [id number] 08/30/24 15:42 08/16/24 08/30/24 16:13 15:38 Wound Center Nurse 2 #10 LLE Med -Time 16:13 15:40 -Correct Patient Yes Yes -Correct Side, Site, Position Yes Yes -Correct Procedure Yes Yes -Procedure Performed Yes Yes -Type of Procedure Debridement Debridement -Clinical Debridement Subcutaneous Subcutaneous -Tissue Removed Subcutaneous Subcutaneous -Post Debridement (cm) - Length 1.8 1.6 -Post Debridement (cm) - Width 1.5 1.7 -Post Debridement (cm) - Depth 0.1 0.1 -Total Square (Post) (cm) 2.70 2.72 -Area of Debridement (cm) - Length 1.8 1.6 -Area of Debridement (cm) - Width 1.5 1.7 -Total Square (Area) (cm) 2.70 2.72 -Tunneling No No -Undermining/Tunneling No No -Circular Undermining No No -Wound/Ulcer Outcome Not Healed Not Healed -Ulcer Cleansing Rinsed/ Rinsed/ Irrigated with Irrigated with Saline Saline -Foul Odor after Cleansing No No -Bioengineered Tissue No No -Bleeding Controlled with Pressure Pressure -Treatment Response Procedure Procedure Tolerated Well Tolerated Well -Debridement - Subq, 1st 20sq cm Yes Yes Pain Scale: 0-10 Numeric Is Patient Pain Free? Yes Yes - Nurse 3 - General Ulcer D/C NN Start: 08/16/24 15:26 Freq: Status: Active Protocol: Activity Type Activity Date Activity User E-sign Co-sign Detail Recorded Client Recorded Date Recorded By Document 08/16/24 16:21 [facility] [id number] 08/16/24 16:22 [facility] Document 08/30/24 15:54 DL [id number] 08/30/24 15:55 DL 08/16/24 08/30/24 16:21 15:54 Wound Care Center Nurse 3 #10 LLE Med -Ulcer Cleansing Rinsed/ Rinsed/ Irrigated with Irrigated with Saline Saline -Foul Odor after Cleansing No No -Primary Dressing Applied Fibracol Plus 4x4 -Primary Dressing Applied Promogran Belle Matter -Primary Dressing Covered/Secured with Dry Gauze, Dry Gauze & Secured with Roll Gauze, Tape Secured with Tape -Other Covering MOHINI -Fibracol Plus 4x4 1 -Promogran Belle Matter 1 Left -Stockings Yes Treatment Response Procedure Procedure Tolerated Well Tolerated Well Pain Scale: 0-10 Numeric Is Patient Pain Free? 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 Wound care - Left medial leg ulcer will be Belle covered with gauze and cling wrap daily. She is to wash the area with soap and water at the time of the dressing changes. Continue to apply lotion to brenna wound. Compression - She is wearing compression stockings bilaterally. Encourage nutritional supplementation with protein to help the healing process. Gave samples of [place]. Follow up 2 weeks.
== END 2024-09-08 23:59 | disposition home or self-care (01) ==
LOC: WC 15:30
PROVIDERS: PCP Student in an Organized Health Care Education/Training Program; Referring Provider Student in an Organized Health Care Education/Training Program; Visit Provider Nurse Practitioner Family
DX: L97.925 Non-pressure chronic ulcer of unspecified part of left lower leg with muscle involvement without evidence of necrosis (principal); M72.6 Necrotizing fasciitis; F60.3 Borderline personality disorder; Z86.14 Personal history of Methicillin resistant Staphylococcus aureus infection
CPT/HCPCS: 11042

== ENCOUNTER 2024-10-02 15:30 | Outpatient (RCR) | payer MEDICAID, SELFPAY ==
[2024-09-09 01:04] VITALS: BP 105/54; PULSE 73; RESP 18; TEMP 36.5; BMI 48.9
[2024-09-13 15:26] VITALS: BP 115/69; PULSE 81; RESP 16; TEMP 36.6; BMI 48.9
--- NOTE | 2024-09-13 16:13 | PCM.WC.PN ---
History of Present Illness Date of Service: 09/13/24 Chief Complaint: non-healing ulcer left medial leg History of Wound: Patient is a 24 year old female who presents to the wound healing center for evaluation and treatment of a nonhealing ulcer left medial leg. Patient is a poor historian. Reviewed notes from [facility], she had been admitted to [place] around 11/27/22 for cellulitis and worsening infection of her left lower leg. She ended having an I&D of her left medial leg, left lateral leg and left lateral thigh. She was diagnosed with necrotizing fasciitis. Her wound cultures were positive for Enterococcus and steno. Mycoplasma IGG and IgM (+). She was sent to [facility] on 2 weeks dapto, arthur, clinda, levaquin, and micafungin. Changed Dap to to Vanc. On 12/12 stopped vanc/levaquin/arthur and started IV fluc due to diagnosis of candidemia. She was discharged home from [facility] around the second week of December. She has a history of significant for depression, personality disorder, self harm, anxiety, asthma, recurrent cellulitis and ADHD and most recently Afib and tachycardia. She states that she did not cause these wounds and did not do anything to them to make them worse. She has a history of being accused of tampering with wounds. Surgery 04/07/23 - Surgical preparation left medial leg with incision and drainage and excisional debridement nonhealing infected MRSA ulcer, (126 cm2). Operative culture were negative but she was on Vancomycin and Fluconazole for positive cultures from 04/05/23 which were positive for MRSE and Staphylococcus haemolyticus. Wound culture obtained on 12/29/22 which was positive for Enterococcus faecalis, Corynebacterium amycolatum, and MRSE. She was treated with Augmentin and Doxycycline. Wound culture obtained 01/28/23 which was positive for Enterococcus faecalis and Corynebacterium striatum. She was started on Augmentin. Wound culture obtained 07/07/23 which was positive for Proteus mirabilis and MRSA. She was treated with Doxycycline and Augmentin. Wound culture obtained 08/18/23 which was positive for Proteus mirabilis, Enterococcus faecalis and Corynebacterium striatum. She completed the Augmentin. Wound culture obtained 04/19/24 which was positive for MRSA. She was started on Doxycycline. She was in [facility] for a week at the end of February 2023 for subcutaneous air around her wound. She states she cultured positive for MRSA and they had her on IV antibiotics. They used a wound VAC while she was in the hospital. She was placed on Doxycycline and has finished them. Wound Care - Thera-Skin 9 applications. Surgery 02/14/[address] Welsh for Pilonidal cystectomy. Today she denies fever, chills, nausea or vomiting. Progress of Wound: Today the left medial leg ulcer is stable, Brenna wound is clear. She states that she has been consistently wearing her compression but continues to have increased edema. She is in [employer] school so she spends a lot of time studying with her legs dependent. Objective Data Objective Data Vital Signs: Vital Signs Temp Pulse Resp BP O2 Del Method 97.8 F 81 16 115/69 Room Air 09/13/24 15:26 09/13/24 15:26 09/13/24 15:26 09/13/24 15:26 09/13/24 15:26 Oxygen Delivery Method Room Air Weight: 276 lb Body Mass Index (BMI) 48.9 Charges/Coding Procedures Integumentary 111xxx-113xx: 23019 Stephany subq tissue 20 sq cm/< Debridement Note Debridement Note Wound debrided: Left lateral leg ulcer Laterality: Left Wound Grade/Stage: Stage III Type of Debridement: Excisional debridement Anesthesia Used: 4% Lidocaine Solution and 5% Lidocaine Gel Depth: Down to and including healthy tissue and in the subcutaneous layer Percentage of wound debrided: 100 Instrument Used: 3mm curette Tissue Removed: Non viable tissue and slough, especially around the edges of the ulcer Severity: Fat Layer Exposed Amount of bleeding with debridement: Mild Bleeding Controlled with: Pressure and Compression and gauze Patient tolerated procedure: Patient tolerated procedure well Post-Debridement Measurements and Additional Note: Post-Debridement Measurements/Treatment - Nurse 1 - General Ulcer Assessment Start: 09/13/24 15:26 Freq: Status: Active Protocol: BOBO Activity Type Activity Date Activity User E-sign Co-sign Detail Recorded Client Recorded Date Recorded By Document 09/13/24 15:26 KW [id number] 09/13/24 15:29 KW 09/13/24 15:26 - Today's Visit Information Type of service Follow-up Visit (Physician/ROAD [employer]RE[employer] BRAKE [employer]PLER ) Arrival Mode Ambulatory Accompanied by mother Patient Identification Verified (Name & Yes ) Height and Weight Body Mass Index (BMI) 48.9 BMI Classification Obese Vital Signs Temperature (97.8 F-99.1 F) 97.8 F Temperature Source Temporal Pulse Rate (60-100) 81 Pulse Location Monitor Respiratory Rate (12-18) 16 Respiratory rate source Observation Oxygen Delivery Method Room Air Blood Pressure (90/60-120/80) 115/69 Blood Pressure Mean (mm Hg) 84 Source Monitor Position Sitting Blood Pressure Location Left Arm History Since Last Visit- (Skip if this is Patient's initial visit) Have you changed medications since your No last visit? Any new allergies or adverse reactions No Had a fall/change in ADL's that may No increase risk of falls Signs or symptoms of abuse and/or No neglect since last visit Have you been in the hospital since your No last visit? Has dressing in place as prescribed Yes Has compression in place as prescribed Yes Has offloadiing in place as prescribed N/A Experienced any changes in pain level or No management Left Footwear Regular Shoe Right Footwear Regular Shoe Pain Scale: 0-10 Numeric Is Patient Pain Free? Yes WC - Nurse 1 - General Ulcer Measurement Start: 09/13/24 15:26 Freq: Status: Active Protocol: Activity Type Activity Date Activity User E-sign Co-sign Detail Recorded Client Recorded Date Recorded By Document 09/13/24 15:26 RADHA [id number] 09/13/24 15:29 KW 09/13/24 15:26 Wound Center Nurse 1 #10 LLE Med -Current Size (cm) - Length 1.6 -Current Size (cm) - Width 1.4 -Current Size (cm) - Depth 0.2 -Total Square Cm 2.24 -Date of Last Picture (Recall this 09/13/24 field) -Exudate Amt Small -Exudate Type Serosanguineous -Wound Margin Distinct, Outline Attached -Granulation Amt Large (67-100%) -Granulation Quality [place] -Texture (Brenna-wound Skin Appearance) Assessed,Rash -Moisture (Brenna-wound Skin Appearance) Assessed,Dry/ Scaly -Color (Brenna-wound Skin Appearance) Assessed, Erythema -Temperature (Brenna-wound Skin No Abnormality Appearance) (Pt Warm) -Tenderness on Palpation (Brenna-wound No Skin Appearance) -Ulcer Cleansing Soap and Water -Foul Odor after Cleansing No -Anesthetic Used 5% Lidocaine Gel WC - Nurse 2 - General Ulcer CM Notes Start: 09/13/24 15:26 Freq: Status: Active Protocol: Activity Type Activity Date Activity User E-sign Co-sign Detail Recorded Client Recorded Date Recorded By Document 09/13/24 15:37 [id number] 09/13/24 15:49 GM 09/13/24 15:37 Wound Center Nurse 2 -Time 15:40 -Correct Patient Yes -Correct Side, Site, Position Yes -Correct Procedure Yes -Procedure Performed Yes -Type of Procedure Debridement -Clinical Debridement Subcutaneous -Tissue Removed Subcutaneous -Post Debridement (cm) - Length 1.9 -Post Debridement (cm) - Width 1.6 -Post Debridement (cm) - Depth 0.1 -Total Square (Post) (cm) 3.04 -Area of Debridement (cm) - Length 1.9 -Area of Debridement (cm) - Width 1.6 -Total Square (Area) (cm) 3.04 -Tunneling No -Undermining/Tunneling No -Circular Undermining No -Wound/Ulcer Outcome Not Healed -Ulcer Cleansing Rinsed/ Irrigated with Saline -Foul Odor after Cleansing No -Bioengineered Tissue No -Bleeding Controlled with Pressure -Treatment Response Procedure Tolerated Well -Debridement - Subq, 1st 20sq cm Yes Pain Scale: 0-10 Numeric Is Patient Pain Free? 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 She is having edema even with wearing the compression socks (15-20 mmHg). Discussed increasing compression tho help decrease edema may help with healing her ulcer. Have had a discussion about referring to Dr. Jacobson, plastic surgeon, for a skin graft. She states that she does not have time for that right now with her schooling. Wound care - Left medial leg ulcer will be Belle covered with ABD. Compression - Will start 3M 2 layer wraps to the left lower leg. She will come back on Wednesday for a nurse visit to have the wraps changed. Encourage nutritional supplementation with protein to help the healing process. Gave samples of Mateo. Follow up with me in one week.
--- NOTE | 2024-09-14 09:43 | WC ---
PHOTO 09/13/24 LEFT [facility]
[2024-09-18 15:37] VITALS: BP 97/58; PULSE 74; RESP 18; TEMP 36.5; BMI 48.9
[2024-09-20 15:40] VITALS: BP 101/67; PULSE 79; RESP 18; TEMP 36.6; BMI 48.9
--- NOTE | 2024-09-20 16:44 | PCM.WC.PN ---
History of Present Illness Date of Service: 09/20/24 Chief Complaint: non-healing ulcer left medial leg History of Wound: Patient is a 24 year old female who presents to the wound healing center for evaluation and treatment of a nonhealing ulcer left medial leg. Patient is a poor historian. Reviewed notes from [facility], she had been admitted to [place] around 11/27/22 for cellulitis and worsening infection of her left lower leg. She ended having an I&D of her left medial leg, left lateral leg and left lateral thigh. She was diagnosed with necrotizing fasciitis. Her wound cultures were positive for Enterococcus and steno. Mycoplasma IGG and IgM (+). She was sent to [facility] on 2 weeks dapto, arthur, clinda, levaquin, and micafungin. Changed Dap to to Vanc. On 12/12 stopped vanc/levaquin/arthur and started IV fluc due to diagnosis of candidemia. She was discharged home from [facility] around the second week of December. She has a history of significant for depression, personality disorder, self harm, anxiety, asthma, recurrent cellulitis and ADHD and most recently Afib and tachycardia. She states that she did not cause these wounds and did not do anything to them to make them worse. She has a history of being accused of tampering with wounds. Surgery 04/07/23 - Surgical preparation left medial leg with incision and drainage and excisional debridement nonhealing infected MRSA ulcer, (126 cm2). Operative culture were negative but she was on Vancomycin and Fluconazole for positive cultures from 04/05/23 which were positive for MRSE and Staphylococcus haemolyticus. Wound culture obtained on 12/29/22 which was positive for Enterococcus faecalis, Corynebacterium amycolatum, and MRSE. She was treated with Augmentin and Doxycycline. Wound culture obtained 01/28/23 which was positive for Enterococcus faecalis and Corynebacterium striatum. She was started on Augmentin. Wound culture obtained 07/07/23 which was positive for Proteus mirabilis and MRSA. She was treated with Doxycycline and Augmentin. Wound culture obtained 08/18/23 which was positive for Proteus mirabilis, Enterococcus faecalis and Corynebacterium striatum. She completed the Augmentin. Wound culture obtained 04/19/24 which was positive for MRSA. She was started on Doxycycline. She was in [facility] for a week at the end of February 2023 for subcutaneous air around her wound. She states she cultured positive for MRSA and they had her on IV antibiotics. They used a wound VAC while she was in the hospital. She was placed on Doxycycline and has finished them. Wound Care - Thera-Skin 9 applications. Surgery 02/14/[address] Welsh for Pilonidal cystectomy. Today she denies fever, chills, nausea or vomiting. Progress of Wound: Today the left medial leg ulcer is slightly smaller after her having the 3 M 2 layer wrap on for the past week for compression. Her left lower leg is showing less edema (+1-+2), Brenna wound is clear dry and flakey. Objective Data Objective Data Vital Signs: Vital Signs Temp Pulse Resp BP O2 Del Method 98 F 79 18 101/67 Room Air 09/20/24 15:40 09/20/24 15:40 09/20/24 15:40 09/20/24 15:40 09/13/24 15:26 Oxygen Delivery Method Room Air Weight: 276 lb Body Mass Index (BMI) 48.9 Charges/Coding Procedures Integumentary 111xxx-113xx: 72348 Stephany subq tissue 20 sq cm/< Debridement Note Debridement Note Wound debrided: Left lateral leg ulcer Laterality: Left Wound Grade/Stage: Stage III Type of Debridement: Excisional debridement Anesthesia Used: 4% Lidocaine Solution and 5% Lidocaine Gel Depth: Down to and including healthy tissue and in the subcutaneous layer Percentage of wound debrided: 100 Instrument Used: 3mm curette Tissue Removed: Non viable tissue and slough Severity: Fat Layer Exposed Amount of bleeding with debridement: Mild Bleeding Controlled with: Pressure and Compression and gauze Patient tolerated procedure: Patient tolerated procedure well Post-Debridement Measurements and Additional Note: Post-Debridement Measurements/Treatment STALIN - Nurse 1 - General Ulcer Assessment Start: 09/13/24 15:26 Freq: Status: Active Protocol: BOBO Activity Type Activity Date Activity User E-sign Co-sign Detail Recorded Client Recorded Date Recorded By Document 09/13/24 15:26 KW [id number] 09/13/24 15:29 KW Document 09/18/24 15:37 DL [id number] 09/18/24 15:51 DL Document 09/20/24 15:40 DL [id number] 09/20/24 15:45 DL 09/13/24 09/18/24 09/20/24 15:26 15:37 15:40 WC - Today's Visit Information Type of service Follow-up Visit Nurse-only Follow-up Visit (Physician/AMMONIA STILL OPERATOR Visit (Physician/AMMONIA STILL OPERATOR ) ) Arrival Mode Ambulatory Ambulatory Ambulatory Transfer Assistance None None Accompanied by mother Patient Identification Verified (Name & Yes Yes Yes ) Patient Requires Transmission-Based No No Precautions Height and Weight Body Mass Index (BMI) 48.9 48.9 48.9 BMI Classification Obese Obese Obese Vital Signs Temperature (97.8 F-99.1 F) 97.8 F 97.7 F L 98 F Temperature Source Temporal Temporal Temporal Pulse Rate (60-100) 81 74 79 Pulse Location Monitor Monitor Monitor Respiratory Rate (12-18) 16 18 18 Respiratory rate source Observation Observation Observation Oxygen Delivery Method Room Air Blood Pressure (90/60-120/80) 115/69 97/58 L 101/67 Blood Pressure Mean (mm Hg) 84 71 78 Source Monitor Monitor Monitor Position Sitting Blood Pressure Location Left Arm History Since Last Visit- (Skip if this is Patient's initial visit) Have you changed medications since your No No No last visit? Any new allergies or adverse reactions No No No Had a fall/change in ADL's that may No No No increase risk of falls Signs or symptoms of abuse and/or No No No neglect since last visit Have you been in the hospital since your No No No last visit? Has dressing in place as prescribed Yes Yes Yes Has compression in place as prescribed Yes Yes Yes Has offloadiing in place as prescribed N/A N/A Yes Experienced any changes in pain level or No No No management Left Footwear Regular Shoe Right Footwear Regular Shoe Pain Scale: 0-10 Numeric Is Patient Pain Free? Yes Yes Yes - Nurse 1 - General Ulcer Measurement Start: 09/13/24 15:26 Freq: Status: Active Protocol: Activity Type Activity Date Activity User E-sign Co-sign Detail Recorded Client Recorded Date Recorded By Document 09/13/24 15:26 KW [id number] 09/13/24 15:29 KW Document 09/18/24 15:37 DL [id number] 09/18/24 15:51 DL Document 09/20/24 15:40 DL [id number] 09/20/24 15:45 DL 09/13/24 09/18/24 09/20/24 15:26 15:37 15:40 Wound Center Nurse 1 #10 LLE Med -Current Size (cm) - Length 1.6 1.6 -Current Size (cm) - Width 1.4 1.4 -Current Size (cm) - Depth 0.2 0.2 -Total Square Cm 2.24 2.24 -Date of Last Picture (Recall this 09/13/24 field) -Exudate Amt Small Small Medium -Exudate Type Serosanguineous Serosanguineous Serosanguineous -Wound Margin Distinct, Distinct, Distinct, Outline Outline Outline Attached Attached Attached -Granulation Amt Large (67-100%) Large (67-100%) Medium (34-66%) -Granulation Quality [place] -Necrosis Amt None Present (0 Medium (34-66%) %) -Necrotic Tissue Type Adherent Slough -Structure Exposed N/A N/A -Texture (Brenna-wound Skin Appearance) Assessed,Rash Scarring Scarring -Moisture (Brenna-wound Skin Appearance) Assessed,Dry/ Dry/Scaly Dry/Scaly Scaly -Color (Brenna-wound Skin Appearance) Assessed, No Abnormality No Abnormality Erythema -Temperature (Brenna-wound Skin No Abnormality No Abnormality No Abnormality Appearance) (Pt Warm) (Pt Warm) (Pt Warm) -Tenderness on Palpation (Brenna-wound No No No Skin Appearance) -Ulcer Cleansing Soap and Water Soap and Water Soap and Water -Foul Odor after Cleansing No No No -Anesthetic Used 5% Lidocaine 5% Lidocaine Gel Gel Left Calf (cm) 43.5 Left Ankle (cm) 24.5 WC - Nurse 2 - General Ulcer CM Notes Start: 09/13/24 15:26 Freq: Status: Active Protocol: Activity Type Activity Date Activity User E-sign Co-sign Detail Recorded Client Recorded Date Recorded By Document 09/13/24 15:37 [id number] 09/13/24 15:49 Document 09/20/24 16:16 [id number] 09/20/24 16:20 09/13/24 09/20/24 15:37 16:16 Wound Center Nurse 2 #10 LLE Med -Time 15:40 16:16 -Correct Patient Yes Yes -Correct Side, Site, Position Yes Yes -Correct Procedure Yes Yes -Procedure Performed Yes Yes -Type of Procedure Debridement Debridement -Clinical Debridement Subcutaneous Subcutaneous -Tissue Removed Subcutaneous Subcutaneous -Post Debridement (cm) - Length 1.9 1.5 -Post Debridement (cm) - Width 1.6 1.4 -Post Debridement (cm) - Depth 0.1 0.1 -Total Square (Post) (cm) 3.04 2.10 -Area of Debridement (cm) - Length 1.9 1.5 -Area of Debridement (cm) - Width 1.6 1.4 -Total Square (Area) (cm) 3.04 2.10 -Tunneling No No -Undermining/Tunneling No No -Circular Undermining No No -Wound/Ulcer Outcome Not Healed Not Healed -Ulcer Cleansing Rinsed/ Rinsed/ Irrigated with Irrigated with Saline Saline -Foul Odor after Cleansing No No -Bioengineered Tissue No No -Bleeding Controlled with Pressure Pressure -Treatment Response Procedure Procedure Tolerated Well Tolerated Well -Debridement - Subq, 1st 20sq cm Yes Yes Pain Scale: 0-10 Numeric Is Patient Pain Free? Yes Yes WC - Nurse 3 - General Ulcer D/C NN Start: 09/13/24 15:26 Freq: Status: Active Protocol: Activity Type Activity Date Activity User E-sign Co-sign Detail Recorded Client Recorded Date Recorded By Document 09/13/24 16:19 KW [id number] 09/13/24 16:20 KW Document 09/18/24 15:37 DL [id number] 09/18/24 15:51 DL Document 09/20/24 16:27 KW [id number] 09/20/24 16:28 KW 09/13/24 09/18/24 09/20/24 16:19 15:37 16:27 Wound Care Center Nurse 3 #10 LLE Med -Ulcer Cleansing Soap and Water -Foul Odor after Cleansing No -Primary Dressing Applied Optilok 6.5x10, Promogran Aquacel AG 4x4, Promogran Belle Matter Optilok 6.5x10 Belle Matter -Primary Dressing Covered/Secured with Dry Gauze & Dry Gauze & Roll Gauze, Roll Gauze, Secured with Secured with Tape Tape -Other Covering ABD -Aquacel AG 4x4 1 -Optilok 6.5x10 1 1 -Promogran Belle Matter 1 1 Brenna-Wound Care Lotion Left -Lotion applied to leg before Yes compression wrap -Multi-Layered Wrap Application Multi-Layer Multi-Layer Multi-Layer Comp - Left ($) Comp - Left ($) Comp - Left ($) Vital Signs Temperature (97.8 F-99.1 F) 97.7 F L Temperature Source Temporal Pulse Rate (60-100) 74 Pulse Location Monitor Respiratory Rate (12-18) 18 Respiratory rate source Observation Blood Pressure (90/60-120/80) 97/58 L Blood Pressure Mean (mm Hg) 71 Source Monitor Pain Scale: 0-10 Numeric Is Patient Pain Free? 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 Wound care - Left medial leg ulcer will be Aquacel-Ag covered with ABD/super absorber at the time the 3M [address] layer wraps are changed[address] lotion/aquaphor to the per wound to help with the dry, flakey skin. Compression - 3M 2 layer wraps to the left lower leg. She can keep the wraps on for a week but if they loosen, she should call and come in for a nurse's visit to have the wraps changed. Encourage nutritional supplementation with protein to help the healing process. Gave samples of Mateo. Follow up one week.
[2024-09-29 09:52] VITALS: BP 114/66; PULSE 81; RESP 16; TEMP 35.7; BMI 48.9
[2024-10-02 15:29] VITALS: BP 128/66; PULSE 85; RESP 18; TEMP 36.3; BMI 48.9
--- NOTE | 2024-10-03 05:49 | PN.PCM_ITS ---
History of Present Illness Date of Service: 10/02/24 Chief Complaint: non-healing ulcer left medial leg History of Wound: Patient is a 24 year old female who presents to the wound healing center for evaluation and treatment of a nonhealing ulcer left medial leg. Patient is a poor historian. Reviewed notes from [facility] [place], she had been admitted to [place] around 11/27/22 for cellulitis and worsening infection of her left lower leg. She ended having an I&D of her left medial leg, left lateral leg and left lateral thigh. She was diagnosed with necrotizing fasciitis. Her wound cultures were positive for Enterococcus and steno. Mycoplasma IGG and IgM (+). She was sent to [facility] on 2 weeks dapto, arthur, clinda, levaquin, and micafungin. Changed Dap to to Vanc. On 12/12 stopped vanc/levaquin/arthur and started IV fluc due to diagnosis of candidemia. She was discharged home from [facility] around the second week of December. She has a history of significant for depression, personality disorder, self harm, anxiety, asthma, recurrent cellulitis and ADHD and most recently Afib and tachycardia. She states that she did not cause these wounds and did not do anything to them to make them worse. She has a history of being accused of tampering with wounds. Surgery 04/07/23 - Surgical preparation left medial leg with incision and drainage and excisional debridement nonhealing infected MRSA ulcer, (126 cm2). Operative culture were negative but she was on Vancomycin and Fluconazole for positive cultures from 04/05/23 which were positive for MRSE and Staphylococcus haemolyticus. Wound culture obtained on 12/29/22 which was positive for Enterococcus faecalis, Corynebacterium amycolatum, and MRSE. She was treated with Augmentin and Doxycycline. Wound culture obtained 01/28/23 which was positive for Enterococcus faecalis and Corynebacterium striatum. She was started on Augmentin. Wound culture obtained 07/07/23 which was positive for Proteus mirabilis and MRSA. She was treated with Doxycycline and Augmentin. Wound culture obtained 08/18/23 which was positive for Proteus mirabilis, Enterococcus faecalis and Corynebacterium striatum. She completed the Augmentin. Wound culture obtained 04/19/24 which was positive for MRSA. She was started on Doxycycline. She was in [facility] for a week at the end of February 2023 for subcutaneous air around her wound. She states she cultured positive for MRSA and they had her on IV antibiotics. They used a wound VAC while she was in the hospital. She was placed on Doxycycline and has finished them. Wound Care - Thera-Skin 9 applications. Surgery 02/14/[address] Welsh for Pilonidal cystectomy. Today she denies fever, chills, nausea or vomiting. Progress of Wound: Today the left medial leg ulcer is slightly smaller after her having the 3 M 2 layer wrap on for the past week for compression. Her left lower leg is showing less edema (+1-+2), Brenna wound is clear dry and flakey. Subjective Subjective Reports that the wound is becoming less cumbersome and is a lot smaller now. She is happy with the result The wound over the pilonidal cyst is gone Objective Data Objective Data Vital Signs: Vital Signs Temp Pulse Resp BP O2 Del Method 97.3 F L 85 18 128/66 H Room Air 10/02/24 15:29 10/02/24 15:29 10/02/24 15:29 10/02/24 15:29 09/29/24 09:52 Oxygen Delivery Method Room Air Weight: 276 lb Body Mass Index (BMI) 48.9 Charges/Coding Visit Charges Office Visits / Consults: 89188 OV L3 New 30min (With 25 modifier) Procedures Integumentary 111xxx-113xx: [id number] Stephany subq tissue 20 sq cm/< Physical Exam Const alert and oriented x3 General Appearance: cooperative HEENT normocephalic Head and Scalp: atraumatic Eyes General Eye: normal appearance of both eyes Resp normal respiratory effort and no use of accessory muscles Effort and Inspection: able to speak in complete sentences Cardio peripheral pulses 2+ throughout Skin Wound Narrative: Left anterior leg ulcer is nearly healed with fragile epithelialization around a small 1 x 1 cm area of open wound with granulation tissue at the base. Neuro CN's II-XII intact bilaterally Psych affect normal Debridement Note Debridement Note Post-Debridement Measurements and Additional Note: Post-Debridement Measurements/Treatment STALIN - Nurse 1 - General Ulcer Assessment Start: 09/13/24 15:26 Freq: Status: Active Protocol: BOBO Activity Type Activity Date Activity User E-sign Co-sign Detail Recorded Client Recorded Date Recorded By Document 09/13/24 15:26 KW [id number] 09/13/24 15:29 KW Document 09/18/24 15:37 DL [id number] 09/18/24 15:51 DL Document 09/20/24 15:40 DL [id number] 09/20/24 15:45 DL Document 09/29/24 09:52 KW [id number] 09/29/24 09:53 KW Document 10/02/24 15:29 DL [id number] 10/02/24 15:35 DL 09/13/24 09/18/24 09/20/24 15:26 15:37 15:40 WC - Today's Visit Information Type of service Follow-up Visit Nurse-only Follow-up Visit (Physician/ELECTRICAL TIMING DEVICE CALIBRATOR Visit (Physician/ELECTRICAL TIMING DEVICE CALIBRATOR ) ) Arrival Mode Ambulatory Ambulatory Ambulatory Transfer Assistance None None Accompanied by mother Patient Identification Verified (Name & Yes Yes Yes ) Patient Requires Transmission-Based No No Precautions Height and Weight Body Mass Index (BMI) 48.9 48.9 48.9 BMI Classification Obese Obese Obese Vital Signs Temperature (97.8 F-99.1 F) 97.8 F 97.7 F L 98 F Temperature Source Temporal Temporal Temporal Pulse Rate (60-100) 81 74 79 Pulse Location Monitor Monitor Monitor Respiratory Rate (12-18) 16 18 18 Respiratory rate source Observation Observation Observation Oxygen Delivery Method Room Air Blood Pressure (90/60-120/80) 115/69 97/58 L 101/67 Blood Pressure Mean (mm Hg) 84 71 78 Source Monitor Monitor Monitor Position Sitting Blood Pressure Location Left Arm History Since Last Visit- (Skip if this is Patient's initial visit) Have you changed medications since your No No No last visit? Any new allergies or adverse reactions No No No Had a fall/change in ADL's that may No No No increase risk of falls Signs or symptoms of abuse and/or No No No neglect since last visit Have you been in the hospital since your No No No last visit? Has dressing in place as prescribed Yes Yes Yes Has compression in place as prescribed Yes Yes Yes Has offloadiing in place as prescribed N/A N/A Yes Experienced any changes in pain level or No No No management Left Footwear Regular Shoe Right Footwear Regular Shoe Pain Scale: 0-10 Numeric Is Patient Pain Free? Yes Yes Yes 09/29/24 10/02/24 09:52 15:29 - Today's Visit Information Type of service Nurse-only Follow-up Visit Visit (Physician/ELECTRICAL TIMING DEVICE CALIBRATOR ) Arrival Mode Ambulatory Ambulatory Transfer Assistance None Accompanied by Patient Identification Verified (Name & Yes Yes ) Patient Requires Transmission-Based No Precautions Height and Weight Body Mass Index (BMI) 48.9 48.9 BMI Classification Obese Obese Vital Signs Temperature (97.8 F-99.1 F) 96.3 F L 97.3 F L Temperature Source Temporal Temporal Pulse Rate (60-100) 81 85 Pulse Location Monitor Monitor Respiratory Rate (12-18) 16 18 Respiratory rate source Observation Observation Oxygen Delivery Method Room Air Blood Pressure (90/60-120/80) 114/66 128/66 H Blood Pressure Mean (mm Hg) 82 86 Source Monitor Monitor Position Semi-Fowlers Blood Pressure Location Left Forearm History Since Last Visit- (Skip if this is Patient's initial visit) Have you changed medications since your No No last visit? Any new allergies or adverse reactions No No Had a fall/change in ADL's that may No No increase risk of falls Signs or symptoms of abuse and/or No No neglect since last visit Have you been in the hospital since your No No last visit? Has dressing in place as prescribed Yes Yes Has compression in place as prescribed Yes N/A Has offloadiing in place as prescribed N/A N/A Experienced any changes in pain level or No No management Left Footwear Regular Shoe Right Footwear Regular Shoe Pain Scale: 0-10 Numeric Is Patient Pain Free? Yes Yes - Nurse 1 - General Ulcer Measurement Start: 09/13/24 15:26 Freq: Status: Active Protocol: Activity Type Activity Date Activity User E-sign Co-sign Detail Recorded Client Recorded Date Recorded By Document 09/13/24 15:26 KW [id number] 09/13/24 15:29 KW Document 09/18/24 15:37 DL [id number] 09/18/24 15:51 DL Document 09/20/24 15:40 DL [id number] 09/20/24 15:45 DL Document 10/02/24 15:29 DL [id number] 10/02/24 15:35 DL 09/13/24 09/18/24 09/20/24 15:26 15:37 15:40 Wound Center Nurse 1 #10 LLE Med -Current Size (cm) - Length 1.6 1.6 -Current Size (cm) - Width 1.4 1.4 -Current Size (cm) - Depth 0.2 0.2 -Total Square Cm 2.24 2.24 -Date of Last Picture (Recall this 09/13/24 field) -Exudate Amt Small Small Medium -Exudate Type Serosanguineous Serosanguineous Serosanguineous -Wound Margin Distinct, Distinct, Distinct, Outline Outline Outline Attached Attached Attached -Granulation Amt Large (67-100%) Large (67-100%) Medium (34-66%) -Granulation Quality [place] Pale,[place] -Necrosis Amt None Present (0 Medium (34-66%) %) -Necrotic Tissue Type Adherent Slough -Structure Exposed N/A N/A -Texture (Brenna-wound Skin Appearance) Assessed,Rash Scarring Scarring -Moisture (Brenna-wound Skin Appearance) Assessed,Dry/ Dry/Scaly Dry/Scaly Scaly -Color (Brenna-wound Skin Appearance) Assessed, No Abnormality No Abnormality Erythema -Temperature (Brenna-wound Skin No Abnormality No Abnormality No Abnormality Appearance) (Pt Warm) (Pt Warm) (Pt Warm) -Tenderness on Palpation (Brenna-wound No No No Skin Appearance) -Ulcer Cleansing Soap and Water Soap and Water Soap and Water -Foul Odor after Cleansing No No No -Anesthetic Used 5% Lidocaine 5% Lidocaine Gel Gel Left Calf (cm) 43.5 Left Ankle (cm) 24.5 10/02/24 15:29 Wound Center Nurse 1 #10 E Med -Current Size (cm) - Length 0.9 -Current Size (cm) - Width 0.6 -Current Size (cm) - Depth 0.1 -Total Square Cm 0.54 -Date of Last Picture (Recall this field) -Exudate Amt Medium -Exudate Type Serosanguineous -Wound Margin Distinct, Outline Attached -Granulation Amt Large (67-100%) -Granulation Quality Pale,[place] -Necrosis Amt None Present (0 %) -Necrotic Tissue Type -Structure Exposed N/A -Texture (Brenna-wound Skin Appearance) Scarring -Moisture (Brenna-wound Skin Appearance) No Abnormality -Color (Brenna-wound Skin Appearance) No Abnormality -Temperature (Brenna-wound Skin No Abnormality Appearance) (Pt Warm) -Tenderness on Palpation (Brenna-wound No Skin Appearance) -Ulcer Cleansing Soap and Water -Foul Odor after Cleansing No -Anesthetic Used 5% Lidocaine Gel Left Calf (cm) 41.5 Left Ankle (cm) 21.5 - Nurse 2 - General Ulcer CM Notes Start: 09/13/24 15:26 Freq: Status: Active Protocol: Activity Type Activity Date Activity User E-sign Co-sign Detail Recorded Client Recorded Date Recorded By Document 09/13/24 15:37 [id number] 09/13/24 15:49 Document 09/20/24 16:16 GM [id number] 09/20/24 16:20 GM Document 10/02/24 16:17 [id number] 10/02/24 16:18 09/13/24 09/20/24 10/02/24 15:37 16:16 16:17 Wound Center Nurse 2 #10 LLE Med -Time 15:40 16:16 16:17 -Correct Patient Yes Yes Yes -Correct Side, Site, Position Yes Yes Yes -Correct Procedure Yes Yes Yes -Procedure Performed Yes Yes Yes -Type of Procedure Debridement Debridement Debridement -Clinical Debridement Subcutaneous Subcutaneous Subcutaneous -Tissue Removed Subcutaneous Subcutaneous Subcutaneous -Post Debridement (cm) - Length 1.9 1.5 1 -Post Debridement (cm) - Width 1.6 1.4 1 -Post Debridement (cm) - Depth 0.1 0.1 0.1 -Total Square (Post) (cm) 3.04 2.10 1 -Area of Debridement (cm) - Length 1.9 1.5 1 -Area of Debridement (cm) - Width 1.6 1.4 1 -Total Square (Area) (cm) 3.04 2.10 1 -Tunneling No No No -Undermining/Tunneling No No No -Circular Undermining No No No -Wound/Ulcer Outcome Not Healed Not Healed Not Healed -Ulcer Cleansing Rinsed/ Rinsed/ Rinsed/ Irrigated with Irrigated with Irrigated with Saline Saline Saline -Foul Odor after Cleansing No No No -Bioengineered Tissue No No No -Bleeding Controlled with Pressure Pressure Pressure -Treatment Response Procedure Procedure Procedure Tolerated Well Tolerated Well Tolerated Well -Offloading No -Debridement - Subq, 1st 20sq cm Yes Yes Yes Pain Scale: 0-10 Numeric Is Patient Pain Free? Yes Yes Yes - Nurse 3 - General Ulcer D/C NN Start: 09/13/24 15:26 Freq: Status: Active Protocol: Activity Type Activity Date Activity User E-sign Co-sign Detail Recorded Client Recorded Date Recorded By Document 09/13/24 16:19 KW [id number] 09/13/24 16:20 KW Document 09/18/24 15:37 DL [id number] 09/18/24 15:51 DL Document 09/20/24 16:27 KW [id number] 09/20/24 16:28 KW Document 09/29/24 09:52 KW [id number] 09/29/24 09:53 KW Document 10/02/24 16:29 DL [id number] 10/02/24 16:30 DL 09/13/24 09/18/24 09/20/24 16:19 15:37 16:27 Wound Care Center Nurse 3 #10 LLE Med -Ulcer Cleansing Soap and Water -Foul Odor after Cleansing No -Primary Dressing Applied Optilok 6.5x10, Promogran Aquacel AG 4x4, Promogran Belle Matter Optilok 6.5x10 Belle Matter -Primary Dressing Covered/Secured with Dry Gauze & Dry Gauze & Roll Gauze, Roll Gauze, Secured with Secured with Tape Tape -Other Covering ABD -Aquacel AG 4x4 1 -Optilok 6.5x10 1 1 -Promogran Belle Matter 1 1 Brenna-Wound Care Lotion Left -Lotion applied to leg before Yes compression wrap -Multi-Layered Wrap Application Multi-Layer Multi-Layer Multi-Layer Comp - Left ($) Comp - Left ($) Comp - Left ($) Vital Signs Temperature (97.8 F-99.1 F) 97.7 F L Temperature Source Temporal Pulse Rate (60-100) 74 Pulse Location Monitor Respiratory Rate (12-18) 18 Respiratory rate source Observation Oxygen Delivery Method Blood Pressure (90/60-120/80) 97/58 L Blood Pressure Mean (mm Hg) 71 Source Monitor Position Blood Pressure Location Pain Scale: 0-10 Numeric Is Patient Pain Free? Yes Yes Yes WC - Visit Discharge Discharge Condition Stable Stable Stable Ambulatory Status Ambulatory Ambulatory Ambulatory Transportation Private Auto Private Auto Private Auto Medication Reconcilliation completed & No No provided to patient/care provider Clinical Summary of Care Provided Yes Yes #10 LLE Med -Ulcer Cleansing -Foul Odor after Cleansing -Primary Dressing Applied -Primary Dressing Covered/Secured with -Aquacel AG 2x2 -Aquacel AG 4x4 -Optilok 6.5x10 Left -Multi-Layered Wrap Application Treatment Response 09/29/24 10/02/24 09:52 16:29 Wound Care Center Nurse 3 #10 LLE Med -Ulcer Cleansing -Foul Odor after Cleansing -Primary Dressing Applied -Primary Dressing Covered/Secured with -Other Covering -Aquacel AG 4x4 -Optilok 6.5x10 -Promogran Belle Matter Brenna-Wound Care Left -Lotion applied to leg before compression wrap -Multi-Layered Wrap Application Vital Signs Temperature (97.8 F-99.1 F) 96.3 F L Temperature Source Temporal Pulse Rate (60-100) 81 Pulse Location Monitor Respiratory Rate (12-18) 16 Respiratory rate source Observation Oxygen Delivery Method Room Air Blood Pressure (90/60-120/80) 114/66 Blood Pressure Mean (mm Hg) 82 Source Monitor Position Semi-Fowlers Blood Pressure Location Left Forearm Pain Scale: 0-10 Numeric Is Patient Pain Free? Yes Yes WC - Visit Discharge Discharge Condition Stable Stable Ambulatory Status Ambulatory Ambulatory Transportation Private Auto Private Auto Medication Reconcilliation completed & No provided to patient/care provider Clinical Summary of Care Provided Yes #10 LLE Med -Ulcer Cleansing Soap and Water Rinsed/ Irrigated with Saline -Foul Odor after Cleansing No -Primary Dressing Applied Aquacel AG 4x4, Aquacel AG 2x2 Optilok 6.5x10 -Primary Dressing Covered/Secured with Dry Gauze & Dry Gauze Roll Gauze, Secured with Tape -Aquacel AG 2x2 1 -Aquacel AG 4x4 1 -Optilok 6.5x10 1 Left -Multi-Layered Wrap Application Multi-Layer Multi-Layer Comp - Left ($) Comp - Left ($) Treatment Response Procedure Tolerated Well Additional Wound Wound debrided: Left leg wound Laterality: Left Wound Grade/Stage: 3 Type of Debridement: Excisional debridement Anesthesia Used: 4% Lidocaine Solution Depth: in the subcutaneous layer Percentage of wound debrided: 100 Instrument Used: 3mm curette Severity: Fat Layer Exposed Amount of bleeding with debridement: None Bleeding Controlled with: Compression and gauze Patient tolerated procedure: Patient tolerated procedure well Assessment/Plan Assessment/Plan (1) Ulcer of left lower extremity with muscle involvement without evidence of necrosis: CODE(S): L97.925 - 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 Wound care - Left medial leg ulcer will be Aquacel-Ag covered with ABD/super absorber at the time the 3M 2 layer wraps are changed. Place lotion/aquaphor to the per wound to help with the dry, flakey skin. Compression - 3M 2 layer wraps to the left lower leg. She can keep the wraps on for a week but if they loosen, she should call and come in for a nurse's visit to have the wraps changed. Discussed making sure the wraps are not too tight and the toes are well-perfused Encourage nutritional supplementation with protein to help the healing process. Patient was given samples of Mateo last week Follow up one week.
== END 2024-10-06 23:59 | disposition home or self-care (01) ==
LOC: WC 15:30
PROVIDERS: PCP Student in an Organized Health Care Education/Training Program; Referring Provider Student in an Organized Health Care Education/Training Program; Visit Provider Nurse Practitioner Family
DX: L97.822 Non-pressure chronic ulcer of other part of left lower leg with fat layer exposed (principal); R60.0 Localized edema; Z86.14 Personal history of Methicillin resistant Staphylococcus aureus infection
CPT/HCPCS: 11042; 29581; 99213; G0463

== ENCOUNTER 2024-10-25 15:30 | Outpatient (RCR) | payer MEDICAID, SELFPAY ==
[2024-10-07 01:53] VITALS: BP 128/66; PULSE 85; RESP 18; TEMP 36.3; BMI 48.9
[2024-10-11 15:37] VITALS: BP 133/67; PULSE 86; RESP 18; TEMP 35.3; BMI 48.9
[2024-10-18 15:30] VITALS: BP 100/61; PULSE 82; RESP 18; TEMP 36.2; BMI 48.9
--- NOTE | 2024-10-18 16:04 | PCM.WC.PN ---
History of Present Illness Date of Service: 10/18/24 Chief Complaint: non-healing ulcer left medial leg History of Wound: Patient is a 24 year old female who presents to the wound healing center for evaluation and treatment of a nonhealing ulcer left medial leg. Patient is a poor historian. Reviewed notes from [facility], she had been admitted to [place] around 11/27/22 for cellulitis and worsening infection of her left lower leg. She ended having an I&D of her left medial leg, left lateral leg and left lateral thigh. She was diagnosed with necrotizing fasciitis. Her wound cultures were positive for Enterococcus and steno. Mycoplasma IGG and IgM (+). She was sent to [facility] on 2 weeks dapto, arthur, clinda, levaquin, and micafungin. Changed Dap to to Vanc. On 12/12 stopped vanc/levaquin/arthur and started IV fluc due to diagnosis of candidemia. She was discharged home from [facility] around the second week of December. She has a history of significant for depression, personality disorder, self harm, anxiety, asthma, recurrent cellulitis and ADHD and most recently Afib and tachycardia. She states that she did not cause these wounds and did not do anything to them to make them worse. She has a history of being accused of tampering with wounds. Surgery 04/07/23 - Surgical preparation left medial leg with incision and drainage and excisional debridement nonhealing infected MRSA ulcer, (126 cm2). Operative culture were negative but she was on Vancomycin and Fluconazole for positive cultures from 04/05/23 which were positive for MRSE and Staphylococcus haemolyticus. Wound culture obtained on 12/29/22 which was positive for Enterococcus faecalis, Corynebacterium amycolatum, and MRSE. She was treated with Augmentin and Doxycycline. Wound culture obtained 01/28/23 which was positive for Enterococcus faecalis and Corynebacterium striatum. She was started on Augmentin. Wound culture obtained 07/07/23 which was positive for Proteus mirabilis and MRSA. She was treated with Doxycycline and Augmentin. Wound culture obtained 08/18/23 which was positive for Proteus mirabilis, Enterococcus faecalis and Corynebacterium striatum. She completed the Augmentin. Wound culture obtained 04/19/24 which was positive for MRSA. She was started on Doxycycline. She was in [facility] for a week at the end of February 2023 for subcutaneous air around her wound. She states she cultured positive for MRSA and they had her on IV antibiotics. They used a wound VAC while she was in the hospital. She was placed on Doxycycline and has finished them. Wound Care - Thera-Skin 9 applications. Surgery 02/14/[address] Welsh for Pilonidal cystectomy. Today she denies fever, chills, nausea or vomiting. Progress of Wound: Today the left medial leg ulcer is smaller. Using the 3 M 2 layer wrap for compression has really decreased her edema and helped make the ulcer smaller. She has no edema today on her left leg edema. 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 Objective Data Objective Data Vital Signs: Vital Signs Temp Pulse Resp BP 97.1 F L 82 18 100/61 10/18/24 15:30 10/18/24 15:30 10/18/24 15:30 10/18/24 15:30 Weight: 276 lb Body Mass Index (BMI) 48.9 Charges/Coding Procedures Integumentary 111xxx-113xx: 31232 Stephany subq tissue 20 sq cm/< Debridement Note Debridement Note Wound debrided: Left lateral leg ulcer Laterality: Left Wound Grade/Stage: Stage III Type of Debridement: Excisional debridement Anesthesia Used: 4% Lidocaine Solution and 5% Lidocaine Gel Depth: Down to and including healthy tissue and in the subcutaneous layer Percentage of wound debrided: 100 Instrument Used: 3mm curette Tissue Removed: Non viable tissue and slough Severity: Fat Layer Exposed Amount of bleeding with debridement: Mild Bleeding Controlled with: Pressure and Compression and gauze Patient tolerated procedure: Patient tolerated procedure well Post-Debridement Measurements and Additional Note: Post-Debridement Measurements/Treatment WC - Nurse 1 - General Ulcer Assessment Start: 10/11/24 15:37 Freq: Status: Active Protocol: BOBO Activity Type Activity Date Activity User E-sign Co-sign Detail Recorded Client Recorded Date Recorded By Document 10/11/24 15:37 DL [id number] 10/11/24 15:41 DL Document 10/18/24 15:30 DL [id number] 10/18/24 15:37 DL 10/11/24 10/18/24 15:37 15:30 WC - Today's Visit Information Type of service Nurse-only Follow-up Visit Visit (Physician/ED EDUCATIONAL AIDE ) Arrival Mode Ambulatory Ambulatory Transfer Assistance None None Patient Identification Verified (Name & Yes Yes ) Patient Requires Transmission-Based No No Precautions Height and Weight Body Mass Index (BMI) 48.9 48.9 BMI Classification Obese Obese Vital Signs Temperature (97.8 F-99.1 F) 95.5 F L 97.1 F L Temperature Source Temporal Temporal Pulse Rate (60-100) 86 82 Pulse Location Monitor Monitor Respiratory Rate (12-18) 18 18 Respiratory rate source Observation Observation Blood Pressure (90/60-120/80) 133/67 H 100/61 Blood Pressure Mean (mm Hg) 89 74 Source Monitor Monitor History Since Last Visit- (Skip if this is Patient's initial visit) Have you changed medications since your No No last visit? Any new allergies or adverse reactions No No Had a fall/change in ADL's that may No No increase risk of falls Signs or symptoms of abuse and/or No No neglect since last visit Have you been in the hospital since your No No last visit? Has dressing in place as prescribed Yes Yes Has compression in place as prescribed Yes Yes Has offloadiing in place as prescribed N/A N/A Experienced any changes in pain level or Yes No management Pain Scale: 0-10 Numeric Is Patient Pain Free? Yes Yes - Nurse 1 - General Ulcer Measurement Start: 10/11/24 15:37 Freq: Status: Active Protocol: Activity Type Activity Date Activity User E-sign Co-sign Detail Recorded Client Recorded Date Recorded By Document 10/11/24 15:37 DL [id number] 10/11/24 15:41 DL Document 10/18/24 15:30 DL [id number] 10/18/24 15:37 DL 10/11/24 10/18/24 15:37 15:30 Wound Center Nurse 1 #10 LLE Med -Current Size (cm) - Length 0.1 -Current Size (cm) - Width 0.1 -Current Size (cm) - Depth 0.1 -Total Square Cm 0.01 -Exudate Amt Medium None Present -Exudate Type Serosanguineous -Wound Margin Distinct, Distinct, Outline Outline Attached Attached -Granulation Amt None Present (0 None Present (0 %) %) -Necrosis Amt Large (67-100%) None Present (0 %) -Necrotic Tissue Type Adherent Slough -Structure Exposed N/A N/A -Texture (Brenna-wound Skin Appearance) Scarring Scarring -Moisture (Brenna-wound Skin Appearance) Dry/Scaly No Abnormality -Color (Brenna-wound Skin Appearance) No Abnormality No Abnormality -Temperature (Brenna-wound Skin No Abnormality No Abnormality Appearance) (Pt Warm) (Pt Warm) -Tenderness on Palpation (Brnena-wound No No Skin Appearance) -Ulcer Cleansing Soap and Water Soap and Water -Foul Odor after Cleansing Yes, Due to No Product Use -Anesthetic Used 5% Lidocaine Gel -Wound Comment(s) Dressing Dressing dry/ applied today stuck today. per Paul Ohara. Left Calf (cm) 43.5 Left Ankle (cm) 25.6 WC - Nurse 2 - General Ulcer CM Notes Start: 10/11/24 15:37 Freq: Status: Active Protocol: Activity Type Activity Date Activity User E-sign Co-sign Detail Recorded Client Recorded Date Recorded By Document 10/18/24 15:55 DS [id number] 10/18/24 15:56 DS 10/18/24 15:55 Wound Center Nurse 2 #10 LLE Med -Time 15:53 -Correct Patient Yes -Correct Side, Site, Position Yes -Correct Procedure Yes -Procedure Performed Yes -Type of Procedure Debridement -Clinical Debridement Subcutaneous -Tissue Removed Subcutaneous -Post Debridement (cm) - Length 0.8 -Post Debridement (cm) - Width 0.8 -Post Debridement (cm) - Depth 0.1 -Total Square (Post) (cm) 0.64 -Area of Debridement (cm) - Length 0.8 -Area of Debridement (cm) - Width 0.8 -Total Square (Area) (cm) 0.64 -Tunneling No -Undermining/Tunneling No -Circular Undermining No -Wound/Ulcer Outcome Not Healed -Ulcer Cleansing Rinsed/ Irrigated with Saline -Foul Odor after Cleansing No -Bioengineered Tissue No -Bleeding Controlled with Pressure -Treatment Response Procedure Tolerated Well -Debridement - Subq, 1st 20sq cm Yes Pain Scale: 0-10 Numeric Is Patient Pain Free? Yes STALIN - Nurse 3 - General Ulcer D/C NN Start: 10/11/24 15:37 Freq: Status: Active Protocol: Activity Type Activity Date Activity User E-sign Co-sign Detail Recorded Client Recorded Date Recorded By Document 10/11/24 15:37 DL [id number] 10/11/24 15:41 DL 10/11/24 15:37 Is Patient Pain Free? Yes Wound Care Center Nurse 3 #10 LLE Med -Ulcer Cleansing Soap and Water -Foul Odor after Cleansing No -Primary Dressing Applied Aquacel AG 4x4 -Primary Dressing Covered/Secured with Dry Gauze,Dry Gauze & Roll Gauze -Aquacel AG 4x4 1 LLE -Multi-Layered Wrap Application Multi-Layer Comp - Left ($) -Multi-Layer Compression Left (Qty 1 applied) Treatment Response Procedure Tolerated Well WC - Visit Discharge Discharge Condition Stable Ambulatory Status Ambulatory Transportation Private Auto Assessment/Plan Assessment/Plan (1) Ulcer of left lower extremity with muscle involvement without evidence of necrosis: CODE(S): L97.925 - 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 Wound care - Left medial leg ulcer will be moistened charo covered with [place] SAP. Place lotion/aquaphor to the per wound to help with the dry, flakey skin. Compression - Compression socks (that are 15-20 mmHg) topped with medium strength tubigrip. Keep legs elevated at night to help with edema. Avoid sodium intake to help prevent edema. Encourage nutritional supplementation with protein to help the healing process. Follow up one week.
[2024-10-25 15:25] VITALS: BP 122/77; PULSE 78; RESP 16; TEMP 36.6; BMI 48.9
--- NOTE | 2024-10-25 15:51 | PCM.WC.PN ---
History of Present Illness Date of Service: 10/25/24 Chief Complaint: non-healing ulcer left medial leg History of Wound: Patient is a 24 year old female who presents to the wound healing center for evaluation and treatment of a nonhealing ulcer left medial leg. Patient is a poor historian. Reviewed notes from [facility], she had been admitted to [place] around 11/27/22 for cellulitis and worsening infection of her left lower leg. She ended having an I&D of her left medial leg, left lateral leg and left lateral thigh. She was diagnosed with necrotizing fasciitis. Her wound cultures were positive for Enterococcus and steno. Mycoplasma IGG and IgM (+). She was sent to [facility] on 2 weeks dapto, arthur, clinda, levaquin, and micafungin. Changed Dap to to Vanc. On 12/12 stopped vanc/levaquin/arthur and started IV fluc due to diagnosis of candidemia. She was discharged home from [facility] around the second week of December. She has a history of significant for depression, personality disorder, self harm, anxiety, asthma, recurrent cellulitis and ADHD and most recently Afib and tachycardia. She states that she did not cause these wounds and did not do anything to them to make them worse. She has a history of being accused of tampering with wounds. Surgery 04/07/23 - Surgical preparation left medial leg with incision and drainage and excisional debridement nonhealing infected MRSA ulcer, (126 cm2). Operative culture were negative but she was on Vancomycin and Fluconazole for positive cultures from 04/05/23 which were positive for MRSE and Staphylococcus haemolyticus. Wound culture obtained on 12/29/22 which was positive for Enterococcus faecalis, Corynebacterium amycolatum, and MRSE. She was treated with Augmentin and Doxycycline. Wound culture obtained 01/28/23 which was positive for Enterococcus faecalis and Corynebacterium striatum. She was started on Augmentin. Wound culture obtained 07/07/23 which was positive for Proteus mirabilis and MRSA. She was treated with Doxycycline and Augmentin. Wound culture obtained 08/18/23 which was positive for Proteus mirabilis, Enterococcus faecalis and Corynebacterium striatum. She completed the Augmentin. Wound culture obtained 04/19/24 which was positive for MRSA. She was started on Doxycycline. She was in [facility] for a week at the end of February 2023 for subcutaneous air around her wound. She states she cultured positive for MRSA and they had her on IV antibiotics. They used a wound VAC while she was in the hospital. She was placed on Doxycycline and has finished them. Wound Care - Thera-Skin 9 applications. Surgery 02/14/[address] Welsh for Pilonidal cystectomy. Today she denies fever, chills, nausea or vomiting. Progress of Wound: Today the left medial leg ulcer is slightly smaller. She has been wearing her compression socks with a tubigrip over it. 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 The ulcer has pink wound bed. The brenna wound is dry. Objective Data Objective Data Vital Signs: Vital Signs Temp Pulse Resp BP O2 Del Method 97.9 F 78 16 122/77 H Room Air 10/25/24 15:25 10/25/24 15:25 10/25/24 15:25 10/25/24 15:25 10/25/24 15:25 Oxygen Delivery Method Room Air Weight: 276 lb Body Mass Index (BMI) 48.9 Charges/Coding Procedures Integumentary 111xxx-113xx: 48320 Stephany subq tissue 20 sq cm/< Debridement Note Debridement Note Wound debrided: Left lateral leg ulcer Laterality: Left Wound Grade/Stage: Stage III Type of Debridement: Excisional debridement Anesthesia Used: 4% Lidocaine Solution and 5% Lidocaine Gel Depth: Down to and including healthy tissue and in the subcutaneous layer Percentage of wound debrided: 100 Instrument Used: 3mm curette Tissue Removed: Non viable tissue and slough Severity: Fat Layer Exposed Amount of bleeding with debridement: Mild Bleeding Controlled with: Compression and gauze Patient tolerated procedure: Patient tolerated procedure well Post-Debridement Measurements and Additional Note: Post-Debridement Measurements/Treatment STALIN - Nurse 1 - General Ulcer Assessment Start: 10/11/24 15:37 Freq: Status: Active Protocol: BOBO Activity Type Activity Date Activity User E-sign Co-sign Detail Recorded Client Recorded Date Recorded By Document 10/11/24 15:37 DL [id number] 10/11/24 15:41 DL Document 10/18/24 15:30 DL [id number] 10/18/24 15:37 DL Document 10/25/24 15:25 BMF [id number] 10/25/24 15:29 BMF 10/11/24 10/18/24 10/25/24 15:37 15:30 15:25 - Today's Visit Information Type of service Nurse-only Follow-up Visit Follow-up Visit Visit (Physician/MEDICAL INSURANCE BILLER (Physician/MEDICAL INSURANCE BILLER ) ) Arrival Mode Ambulatory Ambulatory Ambulatory Transfer Assistance None None None Patient Identification Verified (Name & Yes Yes Yes ) Patient Requires Transmission-Based No No No Precautions Safety Precautions NA Height and Weight Body Mass Index (BMI) 48.9 48.9 48.9 BMI Classification Obese Obese Obese Vital Signs Temperature (97.8 F-99.1 F) 95.5 F L 97.1 F L 97.9 F Temperature Source Temporal Temporal Temporal Pulse Rate (60-100) 86 82 78 Pulse Location Monitor Monitor Monitor Respiratory Rate (12-18) 18 18 16 Respiratory rate source Observation Observation Observation Oxygen Delivery Method Room Air Blood Pressure (90/60-120/80) 133/67 H 100/61 122/77 H Blood Pressure Mean (mm Hg) 89 74 92 Source Monitor Monitor Monitor Position Sitting Blood Pressure Location Right Arm History Since Last Visit- (Skip if this is Patient's initial visit) Have you changed medications since your No No No last visit? Any new allergies or adverse reactions No No No Had a fall/change in ADL's that may No No No increase risk of falls Signs or symptoms of abuse and/or No No No neglect since last visit Have you been in the hospital since your No No No last visit? Has dressing in place as prescribed Yes Yes Yes Has compression in place as prescribed Yes Yes Yes Has offloadiing in place as prescribed N/A N/A N/A Experienced any changes in pain level or Yes No No management Left Footwear Regular Shoe Right Footwear Regular Shoe Pain Scale: 0-10 Numeric Is Patient Pain Free? Yes Yes Yes - Nurse 1 - General Ulcer Measurement Start: 10/11/24 15:37 Freq: Status: Active Protocol: Activity Type Activity Date Activity User E-sign Co-sign Detail Recorded Client Recorded Date Recorded By Document 10/11/24 15:37 DL [id number] 10/11/24 15:41 DL Document 10/18/24 15:30 DL [id number] 10/18/24 15:37 DL Document 10/25/24 15:25 BM [id number] 10/25/24 15:29 [facility] 10/11/24 10/18/24 10/25/24 15:37 15:30 15:25 Wound Center Nurse 1 #10 LLE Med -Combined with other wound No -Current Size (cm) - Length 0.1 0.4 -Current Size (cm) - Width 0.1 0.5 -Current Size (cm) - Depth 0.1 0.2 -Total Square Cm 0.01 0.20 -Epithelialization Small 1-33% -Tunneling No -Undermining/Tunneling No -Circular Undermining No -Exudate Amt Medium None Present Medium -Exudate Type Serosanguineous Serosanguineous -Wound Margin Distinct, Distinct, Thickened Outline Outline Attached Attached -Granulation Amt None Present (0 None Present (0 Small (1-33%) %) %) -Granulation Quality [place] -Slough/Fibrin Yes -Necrosis Amt Large (67-100%) None Present (0 Large (67-100%) %) -Necrotic Tissue Type Adherent Slough Adherent Slough -Structure Exposed N/A N/A -Texture (Brenna-wound Skin Appearance) Scarring Scarring Assessed, Scarring,Rash -Moisture (Brenna-wound Skin Appearance) Dry/Scaly No Abnormality Assessed,Dry/ Scaly -Color (Brenna-wound Skin Appearance) No Abnormality No Abnormality Assessed -Temperature (Brenna-wound Skin No Abnormality No Abnormality No Abnormality Appearance) (Pt Warm) (Pt Warm) (Pt Warm) -Tenderness on Palpation (Brenna-wound No No No Skin Appearance) -Ulcer Cleansing Soap and Water Soap and Water Rinsed/ Irrigated with Saline -Foul Odor after Cleansing Yes, Due to No No Product Use -Anesthetic Used 5% Lidocaine 5% Lidocaine Gel Gel -Wound Comment(s) Dressing Dressing dry/ applied today stuck today. per Paul Ohara. Lower Limb Edema Present Yes Left Calf (cm) 43.5 42.6 Left Ankle (cm) 25.6 27.3 WC - Nurse 2 - General Ulcer CM Notes Start: 10/11/24 15:37 Freq: Status: Active Protocol: Activity Type Activity Date Activity User E-sign Co-sign Detail Recorded Client Recorded Date Recorded By Document 10/18/24 15:55 DS [id number] 10/18/24 15:56 DS Document 10/25/24 15:40 [id number] 10/25/24 15:41 10/18/24 10/25/24 15:55 15:40 Wound Center Nurse 2 #10 LLE Med -Time 15:53 15:40 -Correct Patient Yes Yes -Correct Side, Site, Position Yes Yes -Correct Procedure Yes Yes -Procedure Performed Yes Yes -Type of Procedure Debridement Debridement -Clinical Debridement Subcutaneous Subcutaneous -Tissue Removed Subcutaneous Subcutaneous -Post Debridement (cm) - Length 0.8 1.0 -Post Debridement (cm) - Width 0.8 0.8 -Post Debridement (cm) - Depth 0.1 0.1 -Total Square (Post) (cm) 0.64 0.80 -Area of Debridement (cm) - Length 0.8 1.0 -Area of Debridement (cm) - Width 0.8 0.8 -Total Square (Area) (cm) 0.64 0.80 -Tunneling No No -Undermining/Tunneling No No -Circular Undermining No No -Wound/Ulcer Outcome Not Healed Not Healed -Ulcer Cleansing Rinsed/ Not Cleansed Irrigated with Saline -Foul Odor after Cleansing No No -Bioengineered Tissue No No -Bleeding Controlled with Pressure Pressure -Treatment Response Procedure Procedure Tolerated Well Tolerated Well -Debridement - Subq, 1st 20sq cm Yes Yes Pain Scale: 0-10 Numeric Is Patient Pain Free? Yes Yes - Nurse 3 - General Ulcer D/C NN Start: 10/11/24 15:37 Freq: Status: Active Protocol: Activity Type Activity Date Activity User E-sign Co-sign Detail Recorded Client Recorded Date Recorded By Document 10/11/24 15:37 [id number] 10/11/24 15:41 Document 10/18/24 16:09 [id number] 10/18/24 16:09 Document 10/25/24 15:49 [facility] [id number] 10/25/24 15:49 [facility] 10/11/24 10/18/24 10/25/24 15:37 16:09 15:49 Pain Scale: 0-10 Numeric Is Patient Pain Free? Yes Yes Yes Wound Care Center Nurse 3 #10 LLE Med -Ulcer Cleansing Soap and Water Rinsed/ Rinsed/ Irrigated with Irrigated with Saline Saline -Foul Odor after Cleansing No No No -Primary Dressing Applied Aquacel AG 4x4 Promogran, Promogran Silicone Border Charo Matter, Foam 4x4 Silicone Border Foam 4x4 -Primary Dressing Covered/Secured with Dry Gauze,Dry Gauze & Roll Gauze -Aquacel AG 4x4 1 -Promogran 1 -Promogran Charo Matter 1 -Silicone Border Foam 4x4 1 1 LLE -Multi-Layered Wrap Application Multi-Layer Comp - Left ($) -Tubular Bandage Single Layer Single Layer -Size of Tubigrip Used Size E Size E -Size E ($) 1 1 -Other own compression stocking under neath -Multi-Layer Compression Left (Qty 1 applied) Treatment Response Procedure Procedure Tolerated Well Tolerated Well WC - Visit Discharge Discharge Condition Stable Stable Stable Ambulatory Status Ambulatory Ambulatory Ambulatory Transportation Private Auto Private Auto Private Auto Medication Reconcilliation completed & Yes provided to patient/care provider Clinical Summary of Care Provided Yes Assessment/Plan Assessment/Plan (1) Ulcer of left lower extremity with muscle involvement without evidence of necrosis: CODE(S): L97.925 - 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 Wound care - Left medial leg ulcer will be moistened charo covered with [place] SAP daily.. Place lotion/aquaphor to the per wound to help with the dry, flakey skin. Compression - Compression socks (that are 15-20 mmHg) topped with medium strength tubigrip. Keep legs elevated at night to help with edema. Avoid sodium intake to help prevent edema. Encourage nutritional supplementation with protein to help the healing process. Follow up two weeks.
== END 2024-11-06 23:59 | disposition home or self-care (01) ==
LOC: WC 15:30
PROVIDERS: PCP Student in an Organized Health Care Education/Training Program; Referring Provider Student in an Organized Health Care Education/Training Program; Visit Provider Nurse Practitioner Family
DX: L97.822 Non-pressure chronic ulcer of other part of left lower leg with fat layer exposed (principal); R60.0 Localized edema; Z86.14 Personal history of Methicillin resistant Staphylococcus aureus infection
CPT/HCPCS: 11042; 29581; 99213; G0463

== ENCOUNTER → 2024-10-30 | Outpatient (CLI) | payer MEDICAID, SELFPAY ==
[2024-10-30 14:37] LABS: Lithium 1.17 mmol/L (0.60-1.20)
== END | disposition home or self-care (01) ==
LOC: LAB 08:26
PROVIDERS: PCP Student in an Organized Health Care Education/Training Program; Referring Provider Student in an Organized Health Care Education/Training Program; Visit Provider Student in an Organized Health Care Education/Training Program
DX: F31.9 Bipolar disorder, unspecified (principal); Z51.81 Encounter for therapeutic drug level monitoring
CPT/HCPCS: 36415; 80178

== ENCOUNTER 2024-11-27 15:30 | Outpatient (RCR) | payer MEDICAID, SELFPAY ==
[2024-11-07 00:24] VITALS: BP 122/77; PULSE 78; RESP 16; TEMP 36.6; BMI 48.9
[2024-11-08 15:25] VITALS: BP 109/69; PULSE 76; TEMP 35.8; BMI 48.9
--- NOTE | 2024-11-08 16:00 | PCM.WC.PN ---
History of Present Illness Date of Service: 11/08/24 Chief Complaint: non-healing ulcer left medial leg History of Wound: Patient is a 24 year old female who presents to the wound healing center for evaluation and treatment of a nonhealing ulcer left medial leg. Patient is a poor historian. Reviewed notes from [facility], she had been admitted to [place] around 11/27/22 for cellulitis and worsening infection of her left lower leg. She ended having an I&D of her left medial leg, left lateral leg and left lateral thigh. She was diagnosed with necrotizing fasciitis. Her wound cultures were positive for Enterococcus and steno. Mycoplasma IGG and IgM (+). She was sent to [facility] on 2 weeks dapto, arthur, clinda, levaquin, and micafungin. Changed Dap to to Vanc. On 12/12 stopped vanc/levaquin/arthur and started IV fluc due to diagnosis of candidemia. She was discharged home from [facility] around the second week of December. She has a history of significant for depression, personality disorder, self harm, anxiety, asthma, recurrent cellulitis and ADHD and most recently Afib and tachycardia. She states that she did not cause these wounds and did not do anything to them to make them worse. She has a history of being accused of tampering with wounds. Surgery 04/07/23 - Surgical preparation left medial leg with incision and drainage and excisional debridement nonhealing infected MRSA ulcer, (126 cm2). Operative culture were negative but she was on Vancomycin and Fluconazole for positive cultures from 04/05/23 which were positive for MRSE and Staphylococcus haemolyticus. Wound culture obtained on 12/29/22 which was positive for Enterococcus faecalis, Corynebacterium amycolatum, and MRSE. She was treated with Augmentin and Doxycycline. Wound culture obtained 01/28/23 which was positive for Enterococcus faecalis and Corynebacterium striatum. She was started on Augmentin. Wound culture obtained 07/07/23 which was positive for Proteus mirabilis and MRSA. She was treated with Doxycycline and Augmentin. Wound culture obtained 08/18/23 which was positive for Proteus mirabilis, Enterococcus faecalis and Corynebacterium striatum. She completed the Augmentin. Wound culture obtained 04/19/24 which was positive for MRSA. She was started on Doxycycline. She was in [facility] for a week at the end of February 2023 for subcutaneous air around her wound. She states she cultured positive for MRSA and they had her on IV antibiotics. They used a wound VAC while she was in the hospital. She was placed on Doxycycline and has finished them. Wound Care - Thera-Skin 9 applications. Surgery 02/14/[address] Welsh for Pilonidal cystectomy. Today she denies fever, chills, nausea or vomiting. Progress of Wound: Today the left medial leg ulcer is stable. There is a pink wound bed. She has been wearing her compression socks with a tubigrip over it. 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 The ulcer has pink wound bed. The brenna wound is dry. Objective Data Objective Data Vital Signs: Vital Signs Temp Pulse Resp BP O2 Del Method 96.4 F L 76 16 109/69 Room Air 11/08/24 15:25 11/08/24 15:25 11/07/24 00:24 11/08/24 15:25 11/08/24 15:25 Oxygen Delivery Method Room Air Weight: 276 lb Body Mass Index (BMI) 48.9 Charges/Coding Procedures Integumentary 111xxx-113xx: 10223 Stephany subq tissue 20 sq cm/< Debridement Note Debridement Note Wound debrided: Left lateral leg ulcer Laterality: Left Wound Grade/Stage: Stage III Type of Debridement: Excisional debridement Anesthesia Used: 4% Lidocaine Solution and 5% Lidocaine Gel Depth: Down to and including healthy tissue and in the subcutaneous layer Percentage of wound debrided: 100 Instrument Used: 3mm curette Tissue Removed: Non viable tissue and slough Severity: Fat Layer Exposed Amount of bleeding with debridement: Mild Bleeding Controlled with: Compression and gauze Patient tolerated procedure: Patient tolerated procedure well Post-Debridement Measurements and Additional Note: Post-Debridement Measurements/Treatment - Nurse 1 - General Ulcer Assessment Start: 11/08/24 15:25 Freq: Status: Active Protocol: BOBO Activity Type Activity Date Activity User E-sign Co-sign Detail Recorded Client Recorded Date Recorded By Document 11/08/24 15:25 KW [id number] 11/08/24 15:30 KW 11/08/24 15:25 - Today's Visit Information Type of service Follow-up Visit (Physician/DIRECTOR OF MANAGED CARE ) Arrival Mode Ambulatory Patient Identification Verified (Name & Yes ) Height and Weight Body Mass Index (BMI) 48.9 BMI Classification Obese Vital Signs Temperature (97.8 F-99.1 F) 96.4 F L Temperature Source Temporal Pulse Rate (60-100) 76 Pulse Location Monitor Respiratory rate source Observation Oxygen Delivery Method Room Air Blood Pressure (90/60-120/80) 109/69 Blood Pressure Mean (mm Hg) 82 Source Monitor Position Sitting Blood Pressure Location Left Arm History Since Last Visit- (Skip if this is Patient's initial visit) Have you changed medications since your No last visit? Any new allergies or adverse reactions No Had a fall/change in ADL's that may No increase risk of falls Signs or symptoms of abuse and/or No neglect since last visit Have you been in the hospital since your No last visit? Has dressing in place as prescribed Yes Has compression in place as prescribed Yes Has offloadiing in place as prescribed N/A Experienced any changes in pain level or No management Left Footwear Regular Shoe Right Footwear Regular Shoe Pain Scale: 0-10 Numeric Is Patient Pain Free? Yes WC - Nurse 1 - General Ulcer Measurement Start: 11/08/24 15:25 Freq: Status: Active Protocol: Activity Type Activity Date Activity User E-sign Co-sign Detail Recorded Client Recorded Date Recorded By Document 11/08/24 15:25 KW [id number] 11/08/24 15:30 KW 11/08/24 15:25 Wound Center Nurse 1 #10 LLE Med -Current Size (cm) - Length 0.7 -Current Size (cm) - Width 0.8 -Current Size (cm) - Depth 0.2 -Total Square Cm 0.56 -Date of Last Picture (Recall this 11/08/24 field) -Exudate Amt Small -Exudate Type Serosanguineous -Wound Margin Distinct, Outline Attached -Granulation Amt Large (67-100%) -Granulation Quality Red -Texture (Brenna-wound Skin Appearance) Assessed -Moisture (Brenna-wound Skin Appearance) Assessed -Color (Brenna-wound Skin Appearance) Assessed, Erythema -Temperature (Brenna-wound Skin No Abnormality Appearance) (Pt Warm) -Tenderness on Palpation (Brenna-wound No Skin Appearance) -Ulcer Cleansing Rinsed/ Irrigated with Saline -Foul Odor after Cleansing No -Anesthetic Used 5% Lidocaine Gel WC - Nurse 2 - General Ulcer CM Notes Start: 11/08/24 15:25 Freq: Status: Active Protocol: Activity Type Activity Date Activity User E-sign Co-sign Detail Recorded Client Recorded Date Recorded By Document 11/08/24 15:39 [facility] [id number] 11/08/24 15:48 BM 11/08/24 15:39 Wound Center Nurse 2 -Time 15:39 -Correct Patient Yes -Correct Side, Site, Position Yes -Correct Procedure Yes -Procedure Performed Yes -Type of Procedure Debridement -Clinical Debridement Subcutaneous -Tissue Removed Subcutaneous -Post Debridement (cm) - Length 1 -Post Debridement (cm) - Width 1 -Post Debridement (cm) - Depth 0.1 -Total Square (Post) (cm) 1 -Area of Debridement (cm) - Length 1 -Area of Debridement (cm) - Width 1 -Total Square (Area) (cm) 1 -Tunneling No -Undermining/Tunneling No -Circular Undermining No -Wound/Ulcer Outcome Not Healed -Ulcer Cleansing Rinsed/ Irrigated with Saline -Foul Odor after Cleansing No -Bioengineered Tissue No -Bleeding Controlled with Pressure -Treatment Response Procedure Tolerated Well -Debridement - Subq, 1st 20sq cm Yes Pain Scale: 0-10 Numeric Is Patient Pain Free? Yes WC - Nurse 3 - General Ulcer D/C NN Start: 11/08/24 15:25 Freq: Status: Active Protocol: Activity Type Activity Date Activity User E-sign Co-sign Detail Recorded Client Recorded Date Recorded By Document 11/08/24 15:52 DL [id number] 11/08/24 15:54 DL 11/08/24 15:52 Wound Care Center Nurse 3 #10 LLE Med -Ulcer Cleansing Rinsed/ Irrigated with Saline -Foul Odor after Cleansing No -Primary Dressing Applied C Hydrogel -Primary Dressing Covered/Secured with Dry Gauze, Secured with Tape -Hydrogel 1 LLE -Other tubigrip E Pain Scale: 0-10 Numeric Is Patient Pain Free? 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 Her ulcer is stable. She would benefit from an advanced skin substitute, such as Epifix, to help heal this ulcer. She has had advanced wound healing product over a year with improvement but recently there has been less improvement. Wound care - Left medial leg ulcer will be Collagen hydrogel covered with gauze daily. Place lotion/aquaphor to the per wound to help with the dry, flakey skin. Compression - Compression socks (that are 15-20 mmHg) topped with medium strength tubigrip. Keep legs elevated at night to help with edema. Avoid sodium intake to help prevent edema. Encourage nutritional supplementation with protein to help the healing process. Follow up one week.
--- NOTE | 2024-11-09 10:21 | WC ---
PHOTO 11/08/24 LEFT [facility]
[2024-11-15 15:21] VITALS: BP 126/65; PULSE 78; RESP 16; TEMP 36.2; BMI 48.9
--- NOTE | 2024-11-15 15:49 | WC ---
Hilary Saleh RESEARCH CLERK transfers care of this patient over to Dr. Jacobson as of 11/15/24
--- NOTE | 2024-11-15 15:56 | PN.PCM_ITS ---
History of Present Illness Date of Service: 11/15/24 Chief Complaint: non-healing ulcer left medial leg History of Wound: Patient is a 24 year old female who presents to the wound healing center for evaluation and treatment of a nonhealing ulcer left medial leg. Patient is a poor historian. Reviewed notes from [facility], she had been admitted to [place] around 11/27/22 for cellulitis and worsening infection of her left lower leg. She ended having an I&D of her left medial leg, left lateral leg and left lateral thigh. She was diagnosed with necrotizing fasciitis. Her wound cultures were positive for Enterococcus and steno. Mycoplasma IGG and IgM (+). She was sent to [facility] on 2 weeks dapto, arthur, clinda, levaquin, and micafungin. Changed Dap to to Vanc. On 12/12 stopped vanc/levaquin/arthur and started IV fluc due to diagnosis of candidemia. She was discharged home from [facility] around the second week of December. She has a history of significant for depression, personality disorder, self harm, anxiety, asthma, recurrent cellulitis and ADHD and most recently Afib and tachycardia. She states that she did not cause these wounds and did not do anything to them to make them worse. She has a history of being accused of tampering with wounds. Surgery 04/07/23 - Surgical preparation left medial leg with incision and drainage and excisional debridement nonhealing infected MRSA ulcer, (126 cm2). Operative culture were negative but she was on Vancomycin and Fluconazole for positive cultures from 04/05/23 which were positive for MRSE and Staphylococcus haemolyticus. Wound culture obtained on 12/29/22 which was positive for Enterococcus faecalis, Corynebacterium amycolatum, and MRSE. She was treated with Augmentin and Doxycycline. Wound culture obtained 01/28/23 which was positive for Enterococcus faecalis and Corynebacterium striatum. She was started on Augmentin. Wound culture obtained 07/07/23 which was positive for Proteus mirabilis and MRSA. She was treated with Doxycycline and Augmentin. Wound culture obtained 08/18/23 which was positive for Proteus mirabilis, Enterococcus faecalis and Corynebacterium striatum. She completed the Augmentin. Wound culture obtained 04/19/24 which was positive for MRSA. She was started on Doxycycline. She was in [facility] for a week at the end of February 2023 for subcutaneous air around her wound. She states she cultured positive for MRSA and they had her on IV antibiotics. They used a wound VAC while she was in the hospital. She was placed on Doxycycline and has finished them. Wound Care - Thera-Skin 9 applications. Surgery 02/14/[address] Welsh for Pilonidal cystectomy. Today she denies fever, chills, nausea or vomiting. Progress of Wound: Today the left medial leg ulcer is stable. There is a pink wound bed. She has been wearing her compression socks with a tubigrip over it. 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 The ulcer has pink wound bed. The brenna wound is dry. She was not approved from her insurance for [employer] for her advanced wound healing product. Objective Data Objective Data Vital Signs: Vital Signs Temp Pulse Resp BP O2 Del Method 97.1 F L 78 16 126/65 H Room Air 11/15/24 15:21 11/15/24 15:21 11/15/24 15:21 11/15/24 15:21 11/15/24 15:21 Oxygen Delivery Method Room Air Weight: 276 lb Body Mass Index (BMI) 48.9 Charges/Coding Procedures Integumentary 111xxx-113xx: 80754 Stephany subq tissue 20 sq cm/< Debridement Note Debridement Note Wound debrided: Left lateral leg ulcer Laterality: Left Wound Grade/Stage: Stage III Type of Debridement: Excisional debridement Anesthesia Used: 4% Lidocaine Solution and 5% Lidocaine Gel Depth: Down to and including healthy tissue and in the subcutaneous layer Percentage of wound debrided: 100 Instrument Used: 3mm curette Tissue Removed: Non viable tissue and slough Severity: Fat Layer Exposed Amount of bleeding with debridement: Mild Bleeding Controlled with: Compression and gauze Patient tolerated procedure: Patient tolerated procedure well Post-Debridement Measurements and Additional Note: Post-Debridement Measurements/Treatment WC - Nurse 1 - General Ulcer Assessment Start: 11/08/24 15:25 Freq: Status: Active Protocol: BOBO Activity Type Activity Date Activity User E-sign Co-sign Detail Recorded Client Recorded Date Recorded By Document 11/08/24 15:25 KW [id number] 11/08/24 15:30 KW Document 11/15/24 15:21 [facility] [id number] 11/15/24 15:27 [facility] 11/08/24 11/15/24 15:25 15:21 WC - Today's Visit Information Type of service Follow-up Visit Follow-up Visit (Physician/CLOUD DEVELOPER (Physician/CLOUD DEVELOPER ) ) Arrival Mode Ambulatory Ambulatory Transfer Assistance None Patient Identification Verified (Name & Yes Yes ) Patient Requires Transmission-Based No Precautions Height and Weight Body Mass Index (BMI) 48.9 48.9 BMI Classification Obese Obese Vital Signs Temperature (97.8 F-99.1 F) 96.4 F L 97.1 F L Temperature Source Temporal Temporal Pulse Rate (60-100) 76 78 Pulse Location Monitor Monitor Respiratory Rate (12-18) 16 Respiratory rate source Observation Observation Oxygen Delivery Method Room Air Room Air Blood Pressure (90/60-120/80) 109/69 126/65 H Blood Pressure Mean (mm Hg) 82 85 Source Monitor Monitor Position Sitting Sitting Blood Pressure Location Left Arm Right Arm History Since Last Visit- (Skip if this is Patient's initial visit) Have you changed medications since your No No last visit? Any new allergies or adverse reactions No No Had a fall/change in ADL's that may No No increase risk of falls Signs or symptoms of abuse and/or No No neglect since last visit Have you been in the hospital since your No No last visit? Has dressing in place as prescribed Yes Yes Has compression in place as prescribed Yes Yes Has offloadiing in place as prescribed N/A N/A Experienced any changes in pain level or No No management Left Footwear Regular Shoe Regular Shoe Right Footwear Regular Shoe Regular Shoe Pain Scale: 0-10 Numeric Is Patient Pain Free? Yes Yes Teaching: Wound Center Compression Wraps & Stockings -Person Taught Patient -Teaching Method Discussion -Response to teaching Verbalize Understanding Dressing Your Wound -Person Taught Patient -Teaching Method Discussion -Response to teaching Verbalize Understanding *Debridement -Person Taught Patient -Teaching Method Discussion -Response to teaching Verbalize Understanding - Nurse 1 - General Ulcer Measurement Start: 11/08/24 15:25 Freq: Status: Active Protocol: Activity Type Activity Date Activity User E-sign Co-sign Detail Recorded Client Recorded Date Recorded By Document 11/08/24 15:25 [id number] 11/08/24 15:30 Document 11/15/24 15:21 [facility] [id number] 11/15/24 15:27 [facility] 11/08/24 11/15/24 15:25 15:21 Wound Center Nurse 1 #10 LLE Med -Combined with other wound No -Current Size (cm) - Length 0.7 0.4 -Current Size (cm) - Width 0.8 0.5 -Current Size (cm) - Depth 0.2 0.2 -Total Square Cm 0.56 0.20 -Date of Last Picture (Recall this 11/08/24 field) -Epithelialization Small 1-33% -Tunneling No -Undermining/Tunneling No -Circular Undermining No -Exudate Amt Small Medium -Exudate Type Serosanguineous Serosanguineous -Wound Margin Distinct, Thickened Outline Attached -Granulation Amt Large (67-100%) Medium (34-66%) -Granulation Quality Red Pale,[place] -Slough/Fibrin Yes -Necrosis Amt Small (1-33%) -Necrotic Tissue Type Adherent Slough -Texture (Brenna-wound Skin Appearance) Assessed Assessed, Scarring,Rash -Moisture (Brenna-wound Skin Appearance) Assessed Assessed,Dry/ Scaly -Color (Brenna-wound Skin Appearance) Assessed, Assessed Erythema -Temperature (Brenna-wound Skin No Abnormality No Abnormality Appearance) (Pt Warm) (Pt Warm) -Tenderness on Palpation (Brenna-wound No No Skin Appearance) -Ulcer Cleansing Rinsed/ Rinsed/ Irrigated with Irrigated with Saline Saline -Foul Odor after Cleansing No No -Anesthetic Used 5% Lidocaine 5% Lidocaine Gel Gel Lower Limb Edema Present Yes Left Calf (cm) 43 Left Ankle (cm) 27.4 WC - Nurse 2 - General Ulcer CM Notes Start: 11/08/24 15:25 Freq: Status: Active Protocol: Activity Type Activity Date Activity User E-sign Co-sign Detail Recorded Client Recorded Date Recorded By Document 11/08/24 15:39 [facility] [id number] 11/08/24 15:48 [facility] Document 11/15/24 15:28 [facility] [id number] 11/15/24 15:33 [facility] 11/08/24 11/15/24 15:39 15:28 Wound Center Nurse 2 #10 LLE Med -Time 15:39 15:28 -Correct Patient Yes Yes -Correct Side, Site, Position Yes Yes -Correct Procedure Yes Yes -Procedure Performed Yes Yes -Type of Procedure Debridement Debridement -Clinical Debridement Subcutaneous Subcutaneous -Tissue Removed Subcutaneous Subcutaneous -Post Debridement (cm) - Length 1 0.8 -Post Debridement (cm) - Width 1 0.8 -Post Debridement (cm) - Depth 0.1 0.1 -Total Square (Post) (cm) 1 0.64 -Area of Debridement (cm) - Length 1 0.8 -Area of Debridement (cm) - Width 1 0.8 -Total Square (Area) (cm) 1 0.64 -Tunneling No No -Undermining/Tunneling No No -Circular Undermining No No -Wound/Ulcer Outcome Not Healed Not Healed -Ulcer Cleansing Rinsed/ Rinsed/ Irrigated with Irrigated with Saline Saline -Foul Odor after Cleansing No No -Bioengineered Tissue No No -Bleeding Controlled with Pressure Pressure -Treatment Response Procedure Procedure Tolerated Well Tolerated Well -Debridement - Subq, 1st 20sq cm Yes Yes Pain Scale: 0-10 Numeric Is Patient Pain Free? Yes Yes - Nurse 3 - General Ulcer D/C NN Start: 11/08/24 15:25 Freq: Status: Active Protocol: Activity Type Activity Date Activity User E-sign Co-sign Detail Recorded Client Recorded Date Recorded By Document 11/08/24 15:52 DL [id number] 11/08/24 15:54 DL Document 11/15/24 15:33 [facility] [id number] 11/15/24 15:36 [facility] 11/08/24 11/15/24 15:52 15:33 Wound Care Center Nurse 3 #10 LLE Med -Ulcer Cleansing Rinsed/ Rinsed/ Irrigated with Irrigated with Saline Saline -Foul Odor after Cleansing No No -Primary Dressing Applied C Hydrogel -Other Dressing hydrogel -Primary Dressing Covered/Secured with Dry Gauze, Dry Gauze, Secured with Secured with Tape Tape -Hydrogel 1 LLE -Tubular Bandage Single Layer -Size of Tubigrip Used Size E -Size E ($) 1 -Other tubigrip E Treatment Response Procedure Tolerated Well Pain Scale: 0-10 Numeric Is Patient Pain Free? 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 Her ulcer is stable. She would benefit from an advanced skin substitute, such as Epifix, to help heal this ulcer but her insurance has declined that option. Wound care - Left medial leg ulcer will be Collagen hydrogel covered with gauze daily. Place lotion/aquaphor to the per wound to help with the dry, flakey skin. Compression - Compression socks (that are 15-20 mmHg) topped with medium strength tubigrip. Keep legs elevated at night to help with edema. Avoid sodium intake to help prevent edema. Encourage nutritional supplementation with protein to help the healing process. Follow up one week with Dr. Jacobson. Call or come in to be seen sooner if develop any concerns.
[2024-11-20 15:28] VITALS: BP 106/74; PULSE 82; RESP 16; TEMP 35.6; BMI 48.9
--- NOTE | 2024-11-20 16:29 | PCM.WC.PN ---
History of Present Illness Date of Service: 11/20/24 Chief Complaint: non-healing ulcer left medial leg History of Wound: Patient is a 24 year old female who presents to the wound healing center for evaluation and treatment of a nonhealing ulcer left medial leg. Patient is a poor historian. Reviewed notes from [facility], she had been admitted to [facility] around 11/27/22 for cellulitis and worsening infection of her left lower leg. She ended having an I&D of her left medial leg, left lateral leg and left lateral thigh. She was diagnosed with necrotizing fasciitis. Her wound cultures were positive for Enterococcus and steno. Mycoplasma IGG and IgM (+). She was sent to [facility] on 2 weeks dapto, arthur, clinda, levaquin, and micafungin. Changed Dap to to Vanc. On 12/12 stopped vanc/levaquin/arthur and started IV fluc due to diagnosis of candidemia. She was discharged home from [facility] around the second week of December. She has a history of significant for depression, personality disorder, self harm, anxiety, asthma, recurrent cellulitis and ADHD and most recently Afib and tachycardia. She states that she did not cause these wounds and did not do anything to them to make them worse. She has a history of being accused of tampering with wounds. Surgery 04/07/23 - Surgical preparation left medial leg with incision and drainage and excisional debridement nonhealing infected MRSA ulcer, (126 cm2). Operative culture were negative but she was on Vancomycin and Fluconazole for positive cultures from 04/05/23 which were positive for MRSE and Staphylococcus haemolyticus. Wound culture obtained on 12/29/22 which was positive for Enterococcus faecalis, Corynebacterium amycolatum, and MRSE. She was treated with Augmentin and Doxycycline. Wound culture obtained 01/28/23 which was positive for Enterococcus faecalis and Corynebacterium striatum. She was started on Augmentin. Wound culture obtained 07/07/23 which was positive for Proteus mirabilis and MRSA. She was treated with Doxycycline and Augmentin. Wound culture obtained 08/18/23 which was positive for Proteus mirabilis, Enterococcus faecalis and Corynebacterium striatum. She completed the Augmentin. Wound culture obtained 04/19/24 which was positive for MRSA. She was started on Doxycycline. She was in [facility] for a week at the end of February 2023 for subcutaneous air around her wound. She states she cultured positive for MRSA and they had her on IV antibiotics. They used a wound VAC while she was in the hospital. She was placed on Doxycycline and has finished them. Wound Care - Thera-Skin 9 applications. Surgery 02/14/[address] Welsh for Pilonidal cystectomy. Today she denies fever, chills, nausea or vomiting. Progress of Wound: Patient reports that the wound on the left medial leg is improving and getting smaller. 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 She is tolerating dressing change. Objective Data Objective Data Vital Signs: Vital Signs Temp Pulse Resp BP O2 Del Method 96.1 F L 82 16 106/74 Room Air 11/20/24 15:28 11/20/24 15:28 11/20/24 15:28 11/20/24 15:28 11/20/24 15:28 Oxygen Delivery Method Room Air Weight: 276 lb Body Mass Index (BMI) 48.9 Charges/Coding Visit Charges Office Visits / Consults: 02138 OV L3 Est 20min Physical Exam Const alert and oriented x3 General Appearance: cooperative HEENT normocephalic Head and Scalp: atraumatic Eyes General Eye: normal appearance of both eyes Resp normal respiratory effort and no use of accessory muscles Effort and Inspection: able to speak in complete sentences Cardio peripheral pulses 2+ throughout Skin Wound Narrative: Left anterior leg ulcer nearly healed and is a small (0.5 x 0.5 cm) area of open wound with granulation tissue at the base. No signs of surrounding induration, although there is some reactive erythema And scarring. There is no fluid collection. Neuro CN's II-XII intact bilaterally Psych affect normal Debridement Note Debridement Note No debridement was completed: No debridement was completed today Post-Debridement Measurements and Additional Note: Post-Debridement Measurements/Treatment WC - Nurse 1 - General Ulcer Assessment Start: 11/08/24 15:25 Freq: Status: Active Protocol: BOBO Activity Type Activity Date Activity User E-sign Co-sign Detail Recorded Client Recorded Date Recorded By Document 11/08/24 15:25 KW [id number] 11/08/24 15:30 KW Document 11/15/24 15:21 BM [id number] 11/15/24 15:27 BMF Document 11/20/24 15:28 [facility] [id number] 11/20/24 15:31 BMF 11/08/24 11/15/24 11/20/24 15:25 15:21 15:28 - Today's Visit Information Type of service Follow-up Visit Follow-up Visit Follow-up Visit (Physician/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 (Physician/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 (Physician/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 ) ) ) Arrival Mode Ambulatory Ambulatory Ambulatory Transfer Assistance None None Patient Identification Verified (Name & Yes Yes Yes ) Patient Requires Transmission-Based No No Precautions Height and Weight Body Mass Index (BMI) 48.9 48.9 48.9 BMI Classification Obese Obese Obese Vital Signs Temperature (97.8 F-99.1 F) 96.4 F L 97.1 F L 96.1 F L Temperature Source Temporal Temporal Temporal Pulse Rate (60-100) 76 78 82 Pulse Location Monitor Monitor Monitor Respiratory Rate (12-18) 16 16 Respiratory rate source Observation Observation Observation Oxygen Delivery Method Room Air Room Air Room Air Blood Pressure (90/60-120/80) 109/69 126/65 H 106/74 Blood Pressure Mean (mm Hg) 82 85 84 Source Monitor Monitor Monitor Position Sitting Sitting Sitting Blood Pressure Location Left Arm Right Arm Left Arm History Since Last Visit- (Skip if this is Patient's initial visit) Have you changed medications since your No No No last visit? Any new allergies or adverse reactions No No No Had a fall/change in ADL's that may No No No increase risk of falls Signs or symptoms of abuse and/or No No No neglect since last visit Have you been in the hospital since your No No No last visit? Has dressing in place as prescribed Yes Yes Yes Has compression in place as prescribed Yes Yes Yes Has offloadiing in place as prescribed N/A N/A N/A Experienced any changes in pain level or No No No management Left Footwear Regular Shoe Regular Shoe Regular Shoe Right Footwear Regular Shoe Regular Shoe Regular Shoe Pain Scale: 0-10 Numeric Is Patient Pain Free? Yes Yes Yes Teaching: Wound Center Compression Wraps & Stockings -Person Taught Patient -Teaching Method Discussion -Response to teaching Verbalize Understanding Dressing Your Wound -Person Taught Patient -Teaching Method Discussion -Response to teaching Verbalize Understanding *Debridement -Person Taught Patient -Teaching Method Discussion -Response to teaching Verbalize Understanding - Nurse 1 - General Ulcer Measurement Start: 11/08/24 15:25 Freq: Status: Active Protocol: Activity Type Activity Date Activity User E-sign Co-sign Detail Recorded Client Recorded Date Recorded By Document 11/08/24 15:25 KW [id number] 11/08/24 15:30 KW Document 11/15/24 15:21 BM [id number] 11/15/24 15:27 BMF Document 11/20/24 15:28 [facility] [id number] 11/20/24 15:31 BMF 11/08/24 11/15/24 11/20/24 15:25 15:21 15:28 Wound Center Nurse 1 #10 LLE Med -Combined with other wound No No -Current Size (cm) - Length 0.7 0.4 0.5 -Current Size (cm) - Width 0.8 0.5 0.4 -Current Size (cm) - Depth 0.2 0.2 0.2 -Total Square Cm 0.56 0.20 0.20 -Date of Last Picture (Recall this 11/08/24 field) -Epithelialization Small 1-33% Small 1-33% -Tunneling No No -Undermining/Tunneling No No -Circular Undermining No No -Exudate Amt Small Medium Medium -Exudate Type Serosanguineous Serosanguineous Serosanguineous -Wound Margin Distinct, Thickened Thickened Outline Attached -Granulation Amt Large (67-100%) Medium (34-66%) Large (67-100%) -Granulation Quality Red Pale,[place] Dog[place] -Slough/Fibrin Yes No -Necrosis Amt Small (1-33%) None Present (0 %) -Necrotic Tissue Type Adherent Slough -Texture (Brenna-wound Skin Appearance) Assessed Assessed, Assessed, Scarring,Rash Scarring,Rash -Moisture (Brenna-wound Skin Appearance) Assessed Assessed,Dry/ Assessed,Dry/ Scaly Scaly -Color (Brenna-wound Skin Appearance) Assessed, Assessed Assessed Erythema -Temperature (Brenna-wound Skin No Abnormality No Abnormality No Abnormality Appearance) (Pt Warm) (Pt Warm) (Pt Warm) -Tenderness on Palpation (Brenna-wound No No Yes Skin Appearance) -Ulcer Cleansing Rinsed/ Rinsed/ Soap and Water Irrigated with Irrigated with Saline Saline -Foul Odor after Cleansing No No No -Anesthetic Used 5% Lidocaine 5% Lidocaine 5% Lidocaine Gel Gel Gel Lower Limb Edema Present Yes Yes Left Calf (cm) 43 42.5 Left Ankle (cm) 27.4 25.8 WC - Nurse 2 - General Ulcer CM Notes Start: 11/08/24 15:25 Freq: Status: Active Protocol: Activity Type Activity Date Activity User E-sign Co-sign Detail Recorded Client Recorded Date Recorded By Document 11/08/24 15:39 BM [id number] 11/08/24 15:48 BM Document 11/15/24 15:28 BM [id number] 11/15/24 15:33 [facility] Document 11/20/24 15:44 [id number] 11/20/24 15:44 JF 11/08/24 11/15/24 11/20/24 15:39 15:28 15:44 Wound Center Nurse 2 #10 LLE Med -Time 15:39 15:28 -Correct Patient Yes Yes No -Correct Side, Site, Position Yes Yes No -Correct Procedure Yes Yes No -Procedure Performed Yes Yes No -Type of Procedure Debridement Debridement -Clinical Debridement Subcutaneous Subcutaneous -Tissue Removed Subcutaneous Subcutaneous -Post Debridement (cm) - Length 1 0.8 -Post Debridement (cm) - Width 1 0.8 -Post Debridement (cm) - Depth 0.1 0.1 -Total Square (Post) (cm) 1 0.64 -Area of Debridement (cm) - Length 1 0.8 -Area of Debridement (cm) - Width 1 0.8 -Total Square (Area) (cm) 1 0.64 -Tunneling No No -Undermining/Tunneling No No -Circular Undermining No No -Wound/Ulcer Outcome Not Healed Not Healed Not Healed -Ulcer Cleansing Rinsed/ Rinsed/ Irrigated with Irrigated with Saline Saline -Foul Odor after Cleansing No No -Bioengineered Tissue No No -Bleeding Controlled with Pressure Pressure -Treatment Response Procedure Procedure Tolerated Well Tolerated Well -Debridement - Subq, 1st 20sq cm Yes Yes Pain Scale: 0-10 Numeric Is Patient Pain Free? Yes Yes Yes WC - Nurse 3 - General Ulcer D/C NN Start: 11/08/24 15:25 Freq: Status: Active Protocol: Activity Type Activity Date Activity User E-sign Co-sign Detail Recorded Client Recorded Date Recorded By Document 11/08/24 15:52 DL [id number] 11/08/24 15:54 DL Document 11/15/24 15:33 BMF [id number] 11/15/24 15:36 [facility] Document 11/20/24 15:51 DL [id number] 11/20/24 15:53 DL 11/08/24 11/15/24 11/20/24 15:52 15:33 15:51 Wound Care Center Nurse 3 #10 LLE Med -Ulcer Cleansing Rinsed/ Rinsed/ Rinsed/ Irrigated with Irrigated with Irrigated with Saline Saline Saline -Foul Odor after Cleansing No No No -Primary Dressing Applied C Hydrogel -Other Dressing hydrogel Hydrogel -Primary Dressing Covered/Secured with Dry Gauze, Dry Gauze, Dry Gauze Secured with Secured with Tape Tape -Hydrogel 1 -Wound Comment(s) Pt scheduled out for 4 weeks , extra tubigrip sent with pt today. LLE -Tubular Bandage Single Layer Single Layer -Size of Tubigrip Used Size E Size E -Size E ($) 1 2 -Other tubigrip E Treatment Response Procedure Procedure Tolerated Well Tolerated Well Pain Scale: 0-10 Numeric Is Patient Pain Free? Yes Yes Yes WC - Visit Discharge Discharge Condition Stable Stable Stable Ambulatory Status Ambulatory Ambulatory Ambulatory Transportation Private Auto Private Auto Private Auto Assessment/Plan Assessment/Plan (1) Ulcer of left lower extremity with muscle involvement without evidence of necrosis: CODE(S): L97.925 - 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 Wound care - Left medial leg ulcer will be Collagen hydrogel covered with gauze daily. Place lotion/aquaphor to the per wound to help with the dry, flakey skin. Compression - Compression socks (that are 15-20 mmHg) topped with medium strength tubigrip. Keep legs elevated at night to help with edema. Avoid sodium intake to help prevent edema. Encourage nutritional supplementation with protein to help the healing process. Follow-up in 1 month
[2024-11-24 10:03] VITALS: BP 104/69; PULSE 89; RESP 18; TEMP 36.1; BMI 48.9
--- NOTE | 2024-11-24 12:50 | WC ---
11/23 @ 430p pt called in stating having pain to her left lower extremity below where her original wound is and states there are some open areas below original wound as well. Informed patient that she could go to the ER to get evaluated or she could come into the wound center for a nurse visit. pt chose to come in for a NV 11/24 @ 945a pt came into wound center for a nurse visit. the dressing to her left lower leg was removed. the leg was washed and photos taken. minimal drainage was noted to the areas. The patient had multiple areas of red circles inferior to original wound. Spoke with Dr. Herrera and showed pictures of wounds. Cultures were taken and a message will be sent to Dr. Jacobson to make him aware and that we added an appt for this coming Monday 11/27. Patient was instructed that if she spikes temps, pain increases or any change to go to the ER to get evaluated.
--- NOTE | 2024-11-24 13:22 | WC ---
PHOTO 11/24/24 CY
[2024-11-27 15:22] VITALS: BP 136/81; PULSE 81; RESP 18; TEMP 35.9; BMI 48.9
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
--- NOTE | 2024-11-28 10:23 | WC ---
PHOTO 11/27/24 LLE MED/LLE CLUSTER
== END 2024-12-06 23:59 | disposition home or self-care (01) ==
LOC: WC 15:30
PROVIDERS: PCP Student in an Organized Health Care Education/Training Program; Referring Provider Student in an Organized Health Care Education/Training Program; Visit Provider Surgery Plastic and Reconstructive Surgery
DX: L97.822 Non-pressure chronic ulcer of other part of left lower leg with fat layer exposed (principal); M72.6 Necrotizing fasciitis; I48.91 Unspecified atrial fibrillation; M79.89 Other specified soft tissue disorders; R60.0 Localized edema; J45.909 Unspecified asthma, uncomplicated; Z86.14 Personal history of Methicillin resistant Staphylococcus aureus infection
CPT/HCPCS: G0463; 11042; 87070; 87075; 87077; 87186; 87205; 99213

== ENCOUNTER 2024-11-27 15:59 | Emergency (ER) | payer MEDICAID, SELFPAY ==
[2024-11-27] VITALS (7 sets, daily range): BP systolic 115–130; BP diastolic 79–91; PULSE 87–101; RESP 16–22; TEMP 36.6–37; O2SAT 98–99; BMI 45.7
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
--- NOTE | 2024-11-27 16:28 | RAD_ITS ---
EXAM: LEFT TIBIA AND FIBULA (TWO VIEWS) CLINICAL HISTORY: INJURY. PAIN. CHRONIC WOUND. COMPARISON: No relevant prior. TECHNIQUE: AP and lateral. FINDINGS: No fractures, dislocations, or subluxations. No other osseous abnormalities. Extensive gas/air is noted throughout the soft tissues of the lower leg. RAD/Tibia & Fibula 2 Views IMPRESSION: 1. Findings most concerning for extensive cellulitis involving the left lower leg. 2. No osseous abnormalities. Reading Location: [facility]
[2024-11-27] MEDS: Vancomycin HCl 1,750 MG in 0.9% Normal Saline (500mL Bag) 500 ML 250 MG IV (16:31)
[2024-11-27] MEDS: 0.9% Normal Saline (1000mL) 1,000 ML 250 ML IV (16:32)
[2024-11-27 16:40] LABS: Absolute Lymphocyte Count 2.79 X10^3/uL (0.83-4.51); Absolute Neutrophil Count 5.9 X10^3/uL (2.0-7.7); Basophil# 0.03 X10^3/uL; Basophil% 0.3 % (0-1); Eosinophil# 0.25 X10^3/uL; Eosinophils% 2.6 % (0-5); Hematocrit 42.4 % (37-47); Hemoglobin 14.8 g/dL (12.0-15.0); Lymphocyte # 2.79 X10^3/ul (0.83-4.51); Lymphocyte % 28.8 % (19-41); Mean Corp Hgb Conc 34.9 g/dL (32-36); Mean Corpuscular Hgb 29.7 pg (27.0-32.0); Mean Corpuscular Volume 85.1 fL (81-99); Mean Platelet Vol. 9.7 fl (6.2-12.0); Monocyte# 0.71 X10^3/uL; Monocyte% 7.3 % (0-10); NRBC Flagged by Analyzer 0 % (0-5); Neutrophil # 5.91 X10^3/uL (2.7-7.7); Neutrophil % 60.9 % (47-70); Platelet Count 290 K/mm3 (150-450); RBC Distribution Width CV 13.5 % (11.6-14.6); RBC Distribution Width SD 41.7 fl (35.1-43.9); Red Blood Count 4.98 M/mm3 (4.2-5.4); White Blood Count 9.7 K/mm3 (4.4-11.0)
[2024-11-27 17:05] LABS: ALB/GLOB Ratio 1.5 RATIO (0.9-2.4); AST(SGOT) 33 U/L (<=31); Alanine Aminotransfer ALT/SGPT 11 U/L (<=34); Albumin, Serum 4.4 g/dL (3.5-5.0); Alkaline Phosphatase 81 U/L (35-104); Anion Gap 10 (5-15); BUN 15 mg/dL (4-19); BUN/Creat Ratio 15.7 RATIO (10-20); Calcium,Total 9.3 mg/dL (7.6-11.0); Carbon Dioxide 20.6 mmol/L (21.0-32.0); Chloride 107 mmol/L (98-108); Creatinine, Serum 0.94 mg/dL (0.70-1.20); EST Glomerular Filtration Rate 87 (>60); Glucose 96 mg/dL (70-99); Lactic Acid < 1.0 mmol/L (0.0-2.0); Potassium 4.6 mmol/L (3.3-5.1); Protein, Total 7.4 g/dL (5.9-8.4); Sodium Level 138 mmol/L (133-145); Total Bilirubin 0.35 mg/dL (0.00-1.30)
--- NOTE | 2024-11-27 18:23 | RAD_ITS ---
PROCEDURE: CHEST 1 VIEW (PORTABLE) 11/27/2024 REASON FOR EXAM: STATUS POST LINE PLACEMENT TECHNIQUE: Frontal view of the chest. FINDINGS: Hardware: Right internal jugular central line with tip of the catheter overlying the superior vena cava no pneumothorax. Heart: Cardiac and mediastinal contours are stable. Lungs: The lungs are clear. Bones: The bones are unremarkable. Other: RAD/Chest 1 View (Portable) IMPRESSION: Right internal jugular central line with tip of the catheter overlying the supe rior vena cava no pneumothorax. No active disease. Reading Location: [id number]
[2024-11-27 18:26] LABS: Erythrocyte Sedimentation Rate 9 mm/hr (0-30)
[2024-11-27] MEDS: Clindamycin 900 MG/50 ML BAG 75 MG IV (18:26)
--- NOTE | 2024-11-27 18:48 | CT_ITS ---
PROCEDURE: EXTREMITY LOWER WITH CONTRAST 11/27/2024 REASON FOR EXAM: SUBCU AIR CONCERN NECROTIZING FASCIITIS TECHNIQUE: Axial CT images of the left lower extremity obtained with intravenous contrast. Coronal and Sagittal reconstruction series were provided. One or more dose reduction techniques were used (e.g., Automated exposure control, adjustment of the mA and/or kV according to patient size, use of iterative reconstruction technique). COMPARISON: X-ray earlier today FINDINGS: Bones: No evidence of osteomyelitis. Joints: Joint space(s) preserved. No subluxation or dislocation. Soft Tissues: Skin thickening and edema of the subcutaneous fat of the medial aspect of the proximal leg consistent with cellulitis. No loculated fluid collection to suggest abscess. However, there are extensive collections of gas most pronounced in the anteromedial proximal leg but also extending throughout the subcutaneous fat throughout the thigh as well as posteriorly surrounding in the quadriceps musculature, popliteal artery and vein. Similar gas surrounds the muscles in the posterior compartment of the leg including between the soleus and the gastrocnemius muscle. Subcutaneous gas extends nearly from the groin to the ankle. Findings are consistent with necrotizing fasciitis. Furthermore, there is gas within the anterior aspect of the medial head of the gastrocnemius consistent with myositis. CT/Extremity Lower WITH Contrast IMPRESSION: Cellulitis with gas gangrene of the medial aspect of the left lower extremity w ith necrotizing fasciitis and myositis of the anterior aspect of the medial head of the gastrocnemius. No abscess. Dr. Avery was notified on 11/27/2024 at 19:20. Reading Location: [id number]
[2024-11-27] MEDS: Piperacil/Tazobactam 4.5 GM in 0.9% Normal Saline (100mL MB+) 100 ML IV (19:05)
[2024-11-27] MEDS: HYDROmorphone 0.5 MG/0.5 ML SYRINGE IV (19:42)
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
--- NOTE | 2024-11-27 20:55 | ED.RN ---
[facility] Transport at bedside, care being handed over at this time.
== END 2024-11-27 21:02 | disposition short-term general hospital (02) ==
PROVIDERS: Emergency Provider Emergency Medicine; PCP Student in an Organized Health Care Education/Training Program; Visit Provider Emergency Medicine
DX: M72.6 Necrotizing fasciitis (principal); L97.822 Non-pressure chronic ulcer of other part of left lower leg with fat layer exposed; F60.3 Borderline personality disorder; F33.2 Major depressive disorder, recurrent severe without psychotic features; I48.91 Unspecified atrial fibrillation; E66.01 Morbid (severe) obesity due to excess calories; Z68.42 Body mass index [BMI] 45.0-49.9, adult; B95.62 Methicillin resistant Staphylococcus aureus infection as the cause of diseases classified elsewhere; B96.89 Other specified bacterial agents as the cause of diseases classified elsewhere; I10 Essential (primary) hypertension; F41.1 Generalized anxiety disorder; K21.9 Gastro-esophageal reflux disease without esophagitis; K58.9 Irritable bowel syndrome, unspecified; D64.9 Anemia, unspecified; G25.81 Restless legs syndrome; G47.00 Insomnia, unspecified; J45.909 Unspecified asthma, uncomplicated; Z91.52 Personal history of nonsuicidal self-harm; Z79.899 Other long term (current) drug therapy; M79.89 Other specified soft tissue disorders; R60.0 Localized edema; Z86.14 Personal history of Methicillin resistant Staphylococcus aureus infection
CPT/HCPCS: G0463; 71045; 73590; 73701; 80053; 83605; 85025; 85652; 86140; 96365; 96366; 96368; 96375; 99213; 99284; Q9967; A4216; C1751

== ENCOUNTER 2024-12-11 13:26 | Outpatient (RCR) | payer MEDICAID, SELFPAY ==
[2024-12-07 00:11] VITALS: BP 136/81; PULSE 81; RESP 18; TEMP 35.9; BMI 48.9
[2024-12-11 15:27] VITALS: BP 132/66; PULSE 86; RESP 18; TEMP 36.3; BMI 48.9
--- NOTE | 2024-12-11 15:52 | LES_PTH ---
PATIENT: SAMEER MOORE LOC: U#:[id number] AGE/SX: 24/F ROOM: RE12/11/[address]: Dr. Arnoldo Jacobson MD : 2000 BED: DIS: 01/06/2025 SPEC #: [id number] RECD: 12/12/24 10:35 STATUS: MIRIAM REJeferson #: [id number] GATITO: 12/11/24 15:[address]: Arnoldo Jacobson DEPT: SURGICAL PATHOLOGY RECD BY: Benitez Dunlap ENTERED: 12/12/24 11:34 SP TYPE: Lesion OTHR DR: Dr. Андрей Bailey DO Tissues: A - Skin of leg, NOS Procedures: Special Stain Group I Surgery Specimen Level IV GMS Stain (control) HEADER OPERATION: Tissue excision from left leg lesion PRE-OP DIAGNOSIS: Non-healing lesions left leg TISSUE SUBMITTED: A- Tissue biopsy - left leg lesion MICROSCOPIC DIAGNOSIS A. Skin, left leg, nonhealing lesion, punch biopsy: * Focal ulceration with a proliferation of small caliber blood vessels throughout the dermis associated with active chronic inflammatory cell infiltrate - see note and Comment. * PASD stain is negative for fungal organisms. * Note: The biopsy includes epidermis, dermis, and subcutaneous adipose. The histologic differential diagnosis includes reactive changes in the vicinity of an ulcer as well as diffuse dermal angiomatosis. COMMENT Selected slides/images were reviewed in intradepartmental consultation by Dr Armani Mcmullen (dermatopathology division, [facility]). MICROSCOPIC DESCRIPTION Slides are reviewed. All matched controls reacted appropriately. These tests were developed and their performance characteristics determined by [facility]. They may not have been cleared or approved by the U.S. Food and Drug Administration. The FDA has determined that such clearance or approval is not necessary.? The above immunohistochemical/dualISH?markers are ordered and reviewed by the Pathologist. GROSS DESCRIPTION A. Received in formalin in a container labeled with the patient's name, date of , and L leg biopsy is an unoriented cylindrical punch biopsy of white-sorto skin measuring 0.6 x 0.5 cm with a depth of 0.9 cm. Approximately one half of the epidermis is notable for a 0.5 x 0.3 cm black-brown macule that abuts the peripheral margin. The deep margin is inked green, and the tissue is bisected to reveal the macule exhibits parks-brown, friable surfaces that appear to extend 0.3 cm deep, and remain 0.6 cm from the deep margin. Submitted entirely in A1. [facility] 12-12-2024 CPT:15584, 44821
--- NOTE | 2024-12-12 13:29 | WC ---
photo 12/11/24 left medial le
--- NOTE | 2024-12-12 17:12 | PCM.WC.PN ---
History of Present Illness Date of Service: 12/11/24 Chief Complaint: non-healing ulcer left medial leg History of Wound: Patient is a 24 year old female who presents to the wound healing center for evaluation and treatment of a nonhealing ulcer left medial leg. Patient is a poor historian. Reviewed notes from [facility], she had been admitted to [place] around 11/27/22 for cellulitis and worsening infection of her left lower leg. She ended having an I&D of her left medial leg, left lateral leg and left lateral thigh. She was diagnosed with necrotizing fasciitis. Her wound cultures were positive for Enterococcus and steno. Mycoplasma IGG and IgM (+). She was sent to [facility] on 2 weeks dapto, arthur, clinda, levaquin, and micafungin. Changed Dap to to Vanc. On 12/12 stopped vanc/levaquin/arthur and started IV fluc due to diagnosis of candidemia. She was discharged home from [facility] around the second week of December. She has a history of significant for depression, personality disorder, self harm, anxiety, asthma, recurrent cellulitis and ADHD and most recently Afib and tachycardia. She states that she did not cause these wounds and did not do anything to them to make them worse. She has a history of being accused of tampering with wounds. Surgery 04/07/23 - Surgical preparation left medial leg with incision and drainage and excisional debridement nonhealing infected MRSA ulcer, (126 cm2). Operative culture were negative but she was on Vancomycin and Fluconazole for positive cultures from 04/05/23 which were positive for MRSE and Staphylococcus haemolyticus. Wound culture obtained on 12/29/22 which was positive for Enterococcus faecalis, Corynebacterium amycolatum, and MRSE. She was treated with Augmentin and Doxycycline. Wound culture obtained 01/28/23 which was positive for Enterococcus faecalis and Corynebacterium striatum. She was started on Augmentin. Wound culture obtained 07/07/23 which was positive for Proteus mirabilis and MRSA. She was treated with Doxycycline and Augmentin. Wound culture obtained 08/18/23 which was positive for Proteus mirabilis, Enterococcus faecalis and Corynebacterium striatum. She completed the Augmentin. Wound culture obtained 04/19/24 which was positive for MRSA. She was started on Doxycycline. She was in [facility] for a week at the end of February 2023 for subcutaneous air around her wound. She states she cultured positive for MRSA and they had her on IV antibiotics. They used a wound VAC while she was in the hospital. She was placed on Doxycycline and has finished them. Wound Care - Thera-Skin 9 applications. Surgery 02/14/[address] Welsh for Pilonidal cystectomy. Today she denies fever, chills, nausea or vomiting. Subjective Subjective 20 November 2024: patient reports that the wound on the left medial leg is improving and getting smaller. 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 She is tolerating dressing change. 27 November 2024: Patient here for left medial leg wounds, multiple today. Reports that over the past week there were sudden small excoriations that developed on the left medial leg spontaneously. Reports that this has happened to her in the past. She denies any self-harm or any violence from others. Reports that she feels safe at home. Patient came into the wound care center on Wednesday, 24 November 2024. Nurse visit occurred and wounds were cultured. These new wounds were present at that time. Wound culture growing methicillin-resistant Staph aureus and corynebacterium stratum. Wound cultures were reportedly from the surface of the wounds. Current encounter, 11 Dec 2024: Patient was sent to the emergency room out of concern for self-inflicted harm on 27 November 2024 from the wound care center. X-ray and CT scan demonstrated significant amounts of left lower extremity air, consistent at least on imaging as necrotizing fasciitis; however, she had a normal white blood cell count and normal vital signs with a very low suspicion clinically for necrotizing fasciitis. She was transferred to [facility] and admitted to medicine for wound care and monitoring. Orthopedics and emergency general surgery both signed off and recommended continued wound care. She was seen and evaluated by psychiatry however I do not have their notes at this time. Patient was discharged after a several day hospital admission from [facility] and is following up in the wound care center today. She is here today with her mother, who is concerned about why her daughter's body is creating these wounds. Objective Data Objective Data Vital Signs: Vital Signs Temp Pulse Resp BP 97.4 F L 86 18 132/66 H 12/11/24 15:27 12/11/24 15:27 12/11/24 15:27 12/11/24 15:27 Weight: 276 lb Body Mass Index (BMI) 48.9 Charges/Coding Visit Charges Office Visits / Consults: 82727 OV L3 Est 20min Physical Exam Narrative Wound Narrative: Nearly 20 circular daniel consistent with potential wilson on the left medial leg. Varying degrees of thickness (some full-thickness and partial-thickness) . No fluid collections. No induration or crepitus on today's exam. Thigh was examined and there are no wounds on the thigh. No crepitus on the thigh. No signs of fluid collection on the thigh or the groin. Female experimental mechanic present during my exam. 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 ) Arrival Mode Ambulatory Transfer Assistance None Patient Identification Verified (Name & Yes ) Patient Requires Transmission-Based No Precautions Height and Weight Body Mass Index (BMI) 48.9 BMI Classification Obese Vital Signs Temperature (97.8 F-99.1 F) 97.4 F L Temperature Source Temporal Pulse Rate (60-100) 86 Pulse Location Monitor Respiratory Rate (12-18) 18 Respiratory rate source Observation Blood Pressure (90/60-120/80) 132/66 H Blood Pressure Mean (mm Hg) 88 Source Monitor History Since Last Visit- (Skip if this is Patient's initial visit) Have you changed medications since your No last visit? Any new allergies or adverse reactions No Had a fall/change in ADL's that may No increase risk of falls Signs or symptoms of abuse and/or No neglect since last visit Have you been in the hospital since your No last visit? Has dressing in place as prescribed No Has compression in place as prescribed Yes Has offloadiing in place as prescribed N/A Experienced any changes in pain level or No management Pain Scale: 0-10 Numeric Is Patient Pain Free? Yes WC - Nurse 1 - General Ulcer Measurement Start: 12/11/24 15:27 Freq: Status: Active Protocol: Activity Type Activity Date Activity User E-sign Co-sign Detail Recorded Client Recorded Date Recorded By Document 12/11/24 15:27 UMA [id number] 12/11/24 15:33 DL 12/11/24 15:27 Wound Center Nurse 1 #11 LLE cluster -Current Size (cm) - Length 11 -Current Size (cm) - Width 11 -Current Size (cm) - Depth 0.1 -Total Square Cm 121 -Photo Taken Yes -Exudate Amt None Present -Wound Margin Distinct, Outline Attached -Granulation Amt Medium (34-66%) -Granulation Quality [place] -Necrosis Amt Medium (34-66%) -Necrotic Tissue Type Adherent Slough -Structure Exposed N/A -Texture (Brenna-wound Skin Appearance) Scarring -Moisture (Brenna-wound Skin Appearance) Dry/Scaly -Color (Brenna-wound Skin Appearance) No Abnormality -Temperature (Brenna-wound Skin No Abnormality Appearance) (Pt Warm) -Tenderness on Palpation (Brenna-wound No Skin Appearance) -Ulcer Cleansing Rinsed/ Irrigated with Saline -Foul Odor after Cleansing No -Anesthetic Used 4% Lidocaine Solution Left Calf (cm) 44 Left Ankle (cm) 24.5 WC - Nurse 2 - General Ulcer CM Notes Start: 12/11/24 15:27 Freq: Status: Active Protocol: Activity Type Activity Date Activity User E-sign Co-sign Detail Recorded Client Recorded Date Recorded By Document 12/11/24 15:56 JF [id number] 12/11/24 15:58 JF 12/11/24 15:56 Wound Center Nurse 2 #11 LLE cluster -Correct Patient Yes -Correct Side, Site, Position No -Correct Procedure No -Procedure Performed No -Wound/Ulcer Outcome Not Healed -I&D / Paring / Biopsy Punch bx skin ( includes simple close, if done ), single lesion Pain Scale: 0-10 Numeric Is Patient Pain Free? Yes Assessment/Plan Assessment/Plan (1) Open wound of left lower extremity with complication: CODE(S): S81.802A - Unspecified open wound, left lower leg, initial encounter PLAN: There are several small circular wounds that are consistent with traumatic injuries versus autoimmune reaction. Biopsy obtained today as patient does not report having done these to her self. We will follow-up the results of the biopsy. I will refer her to both dermatology and rheumatology to discuss the likelihood of an autoimmune illness. Agree with continued bacitracin twice daily to the wounds. Follow-up with the wound care center in 2 weeks.
== END 2025-01-06 23:59 | disposition home or self-care (01) ==
LOC: WC 13:26
PROVIDERS: PCP Student in an Organized Health Care Education/Training Program; Referring Provider Student in an Organized Health Care Education/Training Program; Visit Provider Surgery Plastic and Reconstructive Surgery
DX: S81.802A Unspecified open wound, left lower leg, initial encounter (principal); M72.6 Necrotizing fasciitis; Z86.14 Personal history of Methicillin resistant Staphylococcus aureus infection; X58.XXXA Exposure to other specified factors, initial encounter; M79.89 Other specified soft tissue disorders
CPT/HCPCS: 11104; 88305; 88312; 99213; G0463

== ENCOUNTER → 2025-03-12 | Outpatient (CLI) | payer MEDICAID, SELFPAY ==
[2025-03-12 10:11] LABS: AST(SGOT) 19 U/L (<=31); Alanine Aminotransfer ALT/SGPT 11 U/L (<=34); Albumin, Serum 4.1 g/dL (3.5-5.0); Alkaline Phosphatase 70 U/L (35-104); Anion Gap 12 (5-15); BUN 14 mg/dL (4-19); BUN/Creat Ratio 18.4 RATIO (10-20); Calcium,Total 9.6 mg/dL (7.6-11.0); Carbon Dioxide 19.8 mmol/L (21.0-32.0); Chloride 107 mmol/L (98-108); Globulin 2.6 g/dL (2.2-4.2); Glucose 93 mg/dL (70-99); Potassium 4.0 mmol/L (3.3-5.1)
[2025-03-12 13:03] LABS: Lithium 0.88 mmol/L (0.60-1.20)
== END | disposition home or self-care (01) ==
LOC: LAB 08:52
PROVIDERS: PCP Student in an Organized Health Care Education/Training Program; Referring Provider Student in an Organized Health Care Education/Training Program; Visit Provider Student in an Organized Health Care Education/Training Program
DX: F31.9 Bipolar disorder, unspecified (principal)
CPT/HCPCS: 36415; 80053; 80178